=== PATIENT | female | born 1990 | race African-American/Black ===

== ENCOUNTER 2017-09-10 15:39 | Emergency (ER) | payer MEDICAID, SELFPAY ==
[2017-09-10 15:41] VITALS: BP 154/102; PULSE 115; RESP 16; TEMP 36.4; O2SAT 97; BMI 41.6
--- NOTE | 2017-09-10 15:53 | ED.DCSUM_ITS ---
- ER Visit Summary Date of Service: 09/10/17 Chief Complaint: Cough History of Present Illness: The patient is a 27 F presenting with cough ?1 month. She complains of productive cough. She has mild shortness of breath. She has mild chest pain only with coughing. Her sister is ill with similar complaints. She denies DVT/PE risk factors. She has tried NyQuil at home with some relief. She has nausea with no vomiting. Denies fever. Denies other complaints. Physical Examination: Vitals are stable. Patient is afebrile. Alert no acute distress. HEENT exam is unremarkable. TMs are normal bilaterally Neck is supple. Lungs are clear and equal bilaterally. Heart is regular rate and rhythm. Abdomen is soft nontender nondistended. Extremities are unremarkable. Skin is warm and dry. No focal neurologic deficit. Remainder of exam is unremarkable. Emergency Department Course and Treatment: Patient is given Zofran ODT. D- dimer is negative. Chest x-ray shows no acute process. On reevaluation, she is resting comfortably. She is able to tolerate p.o. in the emergency department. Repeat heart rate is 92. She is given a prescription for Tessalon Perles. Advised to follow-up with Dr. New wafer fabrication technician for no doc. Advised return to ED if worsening complaints. Disposition: Discharge home Impression: Bronchitis This note was generated with [employer] dictation software. It may contain incorrect words, spelling, and punctuation that were not noted in review of the chart prior to signing ED Disposition - Plan for ED Patient: Chief Complaint: Cough Instructions: ED Upper Resp Infec No Abx Tx Prescriptions: Benzonatate [Tessalon Perle] 200 mg PO TID PRN PRN #20 capsule PRN Reason: Cough Referrals: Tierra New MD [STAFF PHYSICIAN] - Care Physician,No Primary [Primary Care Provider] -
[2017-09-10] MEDS: Ondansetron ODT 4 MG Tablet 8 MG PO (16:03)
[2017-09-10 16:09] VITALS: TEMP 36.8
--- NOTE | 2017-09-10 16:10 | RAD_ITS ---
STUDY: X-RAY CHEST REASON FOR EXAM: Female, 27 years old. Chronic cough TECHNIQUE: Frontal and lateral views of the chest COMPARISON: None. FINDINGS: The lungs are clear. There are no pleural effusions. There is no pneumothorax. The heart is normal in size. The visualized osseous structures are within normal limits. RAD/Chest PA and Lateral IMPRESSION: No acute thoracic pathology. Electronically Signed: Jono Avelar, at 16:26 EDT Tel , Service support ,
[2017-09-10 16:20] LABS: D-Dimer Quantitative (DVT/PE) < 0.27 FEU/ug/m (0.27-0.49)
--- NOTE | 2017-09-10 16:32 | ED.DEP ---
ED Disposition - Plan for ED Patient: Chief Complaint: Cough Instructions: ED Upper Resp Infec No Abx Tx Prescriptions: Benzonatate [Tessalon Perle] 200 mg PO TID PRN PRN #20 capsule PRN Reason: Cough Referrals: Care Physician,No Primary [Primary Care Provider] - Tierra New MD [STAFF PHYSICIAN] -
[2017-09-10 16:57] VITALS: BP 110/69; PULSE 91; RESP 18; O2SAT 97
== END 2017-09-10 16:58 | disposition home or self-care (01) ==
LOC: ED 16:09
PROVIDERS: Emergency Provider Emergency Medicine
DX: J40 Bronchitis, not specified as acute or chronic (principal)
CPT/HCPCS: 71046; 85379; 99283

== ENCOUNTER 2017-10-27 12:08 | Emergency (ER) | payer MEDICAID, SELFPAY ==
[2017-10-27 12:10] VITALS: BP 141/83; PULSE 104; RESP 16; TEMP 36.7; O2SAT 95; BMI 39.7
--- NOTE | 2017-10-27 12:30 | RAD_ITS ---
STUDY: X-RAY CHEST REASON FOR EXAM: Female, 27 years old. Cough. TECHNIQUE: PA and lateral views of the chest. COMPARISON: Comparison is made with prior study dated September 10, 2017. FINDINGS: Atelectasis and/or early infiltrate in the lingula segment of the left upper lobe as well as mild increased markings at the right lung base. Blunting of left costophrenic angle. Normal size heart. Normal mediastinum and tenisha. Normal visualized pulmonary arteries. Normal visualized aortic arch and descending thoracic aorta. Normal visualized thoracic spine. Normal visualized ribs, clavicles, and shoulders. There is no demonstrated abnormality of the visualized soft tissue structures of the upper abdomen. RAD/Chest PA and Lateral IMPRESSION: Bibasilar atelectasis and/or early infiltrates left greater than right with blunting of the left costophrenic angle. Electronically Signed: Blu Quintero MD at 12:48 EDT Tel [phone], Service support ,
--- NOTE | 2017-10-27 13:48 | ED.DCSUM_ITS ---
- ER Visit Summary Date of Service: 10/27/17 Chief Complaint: Coughing up blood History of Present Illness: The patient is a 27 F who states that she is coughing up blood. Started today. She has had a slight cough which increased this morning. She had some blood-tinged sputum. She has no history of this in the past. She is a smoker. She denies any recent URI symptoms. She has not had a fever. Physical Examination: Vital signs reviewed. HEENT exam unremarkable. Heart is regular rate and rhythm without murmurs. Lungs are clear to auscultation. Abdomen is soft and nontender. Extremities reveal no edema. Skin exam normal. Neurologic exam normal. Test Results: Chest x-ray reveals some atelectasis versus early infiltrates. Emergency Department Course and Treatment: Patient did have some sputum production and it shows some blood-tinged sputum. X-ray reveals early infiltrates. I will treat her with azithromycin and albuterol. She will follow -up with her PCP Treatment Plan: [] Disposition: Discharge Impression: Community acquired pneumonia This note was generated with [employer] dictation software. It may contain incorrect words, spelling, and punctuation that were not noted in review of the chart prior to signing ED Disposition - Plan for ED Patient: Chief Complaint: General Illness Referrals: Care Physician,No Primary [Primary Care Provider] -
--- NOTE | 2017-10-27 13:48 | ED.DEP ---
ED Disposition - Plan for ED Patient: Disposition: Home or Assisted Living Chief Complaint: General Illness Instructions: ED Pneumonia Adult Prescriptions: Albuterol Inhaler [Ventolin Hfa] 1 - 2 puff INHALATION Q4H PRN PRN #1 inhaler PRN Reason: Wheezing Azithromycin [Zithromax Z-Geovanni] 250 mg PO UD #1 box Referrals: Care Physician,No Primary [Primary Care Provider] -
[2017-10-27 13:57] VITALS: PULSE 95; RESP 16; O2SAT 97
== END 2017-10-27 13:57 | disposition home or self-care (01) ==
PROVIDERS: Emergency Provider Emergency Medicine
DX: J18.9 Pneumonia, unspecified organism (principal); F17.200 Nicotine dependence, unspecified, uncomplicated
CPT/HCPCS: 71046; 99282

== ENCOUNTER 2017-11-06 14:00 | Outpatient (RCR) | payer MEDICAID, SELFPAY | END 2017-11-20 23:59 | LOC: NS 14:00 | PROVIDERS: Visit Provider Specialist | DX: Z68.41 Body mass index [BMI] 40.0-44.9, adult (principal); Z71.3 Dietary counseling and surveillance | CPT/HCPCS: 97802 ==

== ENCOUNTER 2017-11-27 12:24 | Day surgery (SDC) | payer MEDICAID, SELFPAY ==
[2017-11-27] VITALS (7 sets, daily range): BP systolic 116–141; BP diastolic 68–87; PULSE 71–98; RESP 16–18; TEMP 36.5–37.1; O2SAT 92–100; BMI 38.7
--- NOTE | 2017-11-27 13:20 | SUR.PREOP ---
Preop assessment and AC check list completed by Ayanna NICK. Unable to log into any computer under Ayanna. Ayanna NICK is charting under Alyson Chamorro sign in on the computer.
[2017-11-27 13:37] LABS: Pregnancy, Serum, hCG Quali. NEGATIVE Negative (0-9 Nonpreg)
--- NOTE | 2017-11-27 17:14 | PCM.IMDPSTOP ---
Immediate Post-Op Note Date of Procedure: 11/27/17 Primary Surgeon/Physician: Luan Casillas front tender: none Pre-Operative Diagnosis: Internal derangemen left knee Post-Operative Diagnosis: 1. Large bucket handle tear with maceration leteral meniscus. 2. 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
--- NOTE | 2017-11-27 17:22 | OP.PN_ITS ---
Immediate Post-Op Note Date of Procedure: 11/27/17 Primary Surgeon/Physician: Luan Casillas tire center supervisor: none Pre-Operative Diagnosis: Internal derangemen left knee Post-Operative Diagnosis: 1. Large bucket handle tear with maceration leteral meniscus. 2. 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
--- NOTE | 2017-11-27 17:24 | OP.PN_ITS ---
Immediate Post-Op Note Date of Procedure: 11/27/17 Primary Surgeon/Physician: Luan Casillas feeder switchboard operator: none Pre-Operative Diagnosis: Internal derangemen left knee Post-Operative Diagnosis: 1. Large bucket handle tear with maceration leteral meniscus. 2. Grade 3 chondromalacia Lateral femoral condyle. 3. Grade 2 chondromalacia PFJ Surgery/Procedure Performed:: Arthroscopic partial lateral meniscectomy with chondroplasty LFC and PFJ left knee Description of Surgical Findings:: see note Estimated Blood Loss: minimal Specimen's removed: none Type of Anesthesia:: General ASA Class: ASA1 Normal Healthy Patient
[2017-11-27] MEDS: HYDROcodone Bitartrate/Apap 5/325 Tablet PO (17:38)
== END 2017-11-27 18:10 | disposition home or self-care (01) ==
LOC: SDC 12:25 → AC 12:26
PROVIDERS: Visit Provider Orthopaedic Surgery
PROC: (CPT 29870; principal; 2017-11-27 14:30)
DX: S83.252A Bucket-handle tear of lateral meniscus, current injury, left knee, initial encounter (principal); X58.XXXA Exposure to other specified factors, initial encounter; Y93.67 Activity, basketball; Y92.9 Unspecified place or not applicable; M17.12 Unilateral primary osteoarthritis, left knee; M94.262 Chondromalacia, left knee; J45.909 Unspecified asthma, uncomplicated; E66.8 Other obesity; Z68.41 Body mass index [BMI] 40.0-44.9, adult; Z87.891 Personal history of nicotine dependence
CPT/HCPCS: 29881; 84703; J7120

== ENCOUNTER 2018-01-15 13:12 | Emergency (ER) | payer MEDICAID, SELFPAY ==
[2018-01-15 13:13] VITALS: BP 147/86; PULSE 109; RESP 16; TEMP 36.6; O2SAT 96; BMI 40.6
--- NOTE | 2018-01-15 13:44 | RAD_ITS ---
STUDY: X-RAY CHEST REASON FOR EXAM: Female, 27 years old. Cough and bilateral chest pain. TECHNIQUE: PA and lateral views of the chest. COMPARISON: Comparison is made with prior study dated October 27, 2017. FINDINGS: Stable appearance of the bibasilar atelectasis and/or infiltrates at the lung bases worse on the left side. Blunting of both costophrenic angles worse on the left side. Normal size heart. Normal mediastinum and tenisha. Normal visualized pulmonary arteries. Normal visualized aortic arch and descending thoracic aorta. Normal visualized thoracic spine. Normal visualized ribs, clavicles, and shoulders. There is no demonstrated abnormality of the visualized soft tissue structures of the upper abdomen. RAD/Chest PA and Lateral IMPRESSION: Bibasilar atelectasis and/or infiltrates in the lung bases slightly worse on the left side with blunting of both costophrenic angles. Electronically Signed: Blu Quintero MD at 14:12 EDT Tel [phone], Service support ,
--- NOTE | 2018-01-15 15:05 | ED.VISSUMM ---
- ER Visit Summary Date of Service: 01/15/18 Chief Complaint: Cough History of Present Illness: The patient is a 27 F no senior past medical history. Has had prior scopes to her left knee and one prior . Patient states for 2 years she has had a chronic cough. States it never clears up. Denies any history of DVT or PE. She had a prior d-dimer in September of this year which was negative. She is being treated by her primary care physician Dr. Condon her currently has her on a course of clarithromycin for 2 weeks. She has a cough of green phlegm. She denies any significant hemoptysis. She denies any significant chest pain except with coughing. She denies any leg pain or swelling. Physical Examination: Young female no acute distress. Pulse is 96% on room air no signs of hypoxia. HEENT exam unremarkable other nasal congestion. Posterior pharynx normal. Neck nontender no JVD. Lungs coarse breath sounds with few scattered expiratory wheezes. No rales. No rhonchi. Heart regular rhythm rate about 95 no murmur. Chest wall nontender. Abdomen soft nontender. She is moving all 4 extremities. Neurovascularly intact. Calves are nontender without edema or cords. Neurologically she is awake alert with no focal motor deficits. Back exam nontender. Test Results: Chest x-ray showed no acute abnormality. She has some bibasilar atelectasis. No obvious infiltrate. No obvious effusion. Normal cardiac silhouette. Read both by myself and the radiologist. Emergency Department Course and Treatment: Patient is currently on an antibiotic. She and I discussed prior treatments. She said steroids never gave her any benefit nor did an inhaler. She will be discharged home. Continue on her antibiotic therapy. Follow-up with her primary care physician and she may need referral to a event host. Treatment Plan: PCP follow-up. Disposition: Discharge Impression: Acute bronchitis This note was generated with [employer] dictation software. It may contain incorrect words, spelling, and punctuation that were not noted in review of the chart prior to signing ED Disposition - Plan for ED Patient: Chief Complaint: Cough Referrals: Isra Quan MD [Primary Care Provider] -
--- NOTE | 2018-01-15 15:09 | ED.DCSUM_ITS ---
- ER Visit Summary Date of Service: 01/15/18 Chief Complaint: Cough History of Present Illness: The patient is a 27 F no senior past medical history. Has had prior scopes to her left knee and one prior . Patient states for 2 years she has had a chronic cough. States it never clears up. Denies any history of DVT or PE. She had a prior d-dimer in September of this year which was negative. She is being treated by her primary care physician Dr. Conodn her currently has her on a course of clarithromycin for 2 weeks. She has a cough of green phlegm. She denies any significant hemoptysis. She denies any significant chest pain except with coughing. She denies any leg pain or swelling. Physical Examination: Young female no acute distress. Pulse is 96% on room air no signs of hypoxia. HEENT exam unremarkable other nasal congestion. Posterior pharynx normal. Neck nontender no JVD. Lungs coarse breath sounds with few scattered expiratory wheezes. No rales. No rhonchi. Heart regular rhythm rate about 95 no murmur. Chest wall nontender. Abdomen soft nontender. She is moving all 4 extremities. Neurovascularly intact. Calves are nontender without edema or cords. Neurologically she is awake alert with no focal motor deficits. Back exam nontender. Test Results: Chest x-ray showed no acute abnormality. She has some bibasilar atelectasis. No obvious infiltrate. No obvious effusion. Normal cardiac silhouette. Read both by myself and the radiologist. Emergency Department Course and Treatment: Patient is currently on an antibiotic. She and I discussed prior treatments. She said steroids never gave her any benefit nor did an inhaler. She will be discharged home. Continue on her antibiotic therapy. Follow-up with her primary care physician and she may need referral to a trencher driver. Treatment Plan: PCP follow-up. Disposition: Discharge Impression: Acute bronchitis This note was generated with [employer] dictation software. It may contain incorrect words, spelling, and punctuation that were not noted in review of the chart prior to signing ED Disposition - Plan for ED Patient: Chief Complaint: Cough Referrals: Isra Quan MD [Primary Care Provider] -
--- NOTE | 2018-01-15 15:09 | ED.DEP ---
ED Disposition - Plan for ED Patient: Disposition: Home or Assisted Living Chief Complaint: Cough Instructions: ED Bronchitis Asthmatic Referrals: Isra Quan MD [Primary Care Provider] - 1 Week if not improving Eros Hu MD [STAFF PHYSICIAN] - As soon as possible Additional Instructions: Continue your current antibiotic. Follow-up your primary care physician. If not improving I strongly encourage you to follow-up with a marketing underwriter.
[2018-01-15 15:12] VITALS: RESP 18; O2SAT 98
[2018-01-15 15:13] VITALS: RESP 18
--- NOTE | 2018-01-16 16:36 | CM.ED ---
ED CALLBACK: Follow-up call placed to patient without answer. Voicemail left with return contact information and offered assistance with any needs.
== END 2018-01-15 15:14 | disposition home or self-care (01) ==
PROVIDERS: Emergency Provider Emergency Medicine; Family Provider Family Medicine; PCP Family Medicine
DX: J20.9 Acute bronchitis, unspecified (principal)
CPT/HCPCS: 71046; 99282

== ENCOUNTER 2018-01-16 08:24 | Emergency (ER) | payer MEDICAID, SELFPAY ==
[2018-01-16 08:25] VITALS: BP 142/103; PULSE 109; RESP 20; TEMP 36.4; O2SAT 91; BMI 40.4
--- NOTE | 2018-01-16 08:28 | ED.DCSUM_ITS ---
- ER Visit Summary Date of Service: 01/16/18 Chief Complaint: Rib pain History of Present Illness: The patient is a 27 F who presents with dyspnea, dyspnea on exertion and left-sided lower anterior pleuritic chest pain. Patient was seen yesterday. Note was read. X-ray revealed atelectasis. She reports chronic cough for 2 years. She has no risk factors for PE or DVT. She denies rhinorrhea, postnasal drainage, earache, muffled hearing or ringing in her ears. She denies sore throat. She denies abdominal pain, nausea, vomiting or diarrhea. She denies leg pain, swelling or discoloration. She denies any food intolerance. There is no history of cholelithiasis or pancreatitis. Physical Examination: Patient vitals are noted and remarkable blood pressure 142 /103, heart rate of 109 respiratory rate of 20 per triage however on my exam for 1 minute her respiratory is 28. Pulse ox is 91% which is low for 27-year- old. She is not febrile. BMI is 40.4. She states she is on no hormonal therapy. Head is atraumatic normocephalic. Pupils are equal round reactive. Extraocular muscles are intact. TMs are pearly white with landmarks noted. Nares patent with no drainage. Posterior pharynx without erythema or exudate. Uvula is midline. There is no dysphonia or dysphasia. Trachea is midline. There is no stridor with auscultation of the neck. Heart is rapid and regular without murmur, gallop or rub. S1 and S2 are normal. Lungs are clear to auscultation with good movement of air bilaterally. Abdomen is soft nontender with no hepatosplenomegaly. No skin lesions are noted. There is no asymmetry, swelling, discoloration, leg vein distention, palpable cords or tenderness along the distribution of the deep venous system. Test Results: CBC is remarkable for microcytic cells. D-dimer is less than 0.27. Basic metabolic panel is normal. Chest x-ray reveals bilateral atelectasis. Cardiac echo was unremarkable Emergency Department Course and Treatment: Patient is not PERC negative. Therefore, a d-dimer was ordered. Chest x-ray was obtained since vital signs are different than yesterday and if there is an explanation on the chest x-ray would not need to proceed to CTA. Since patient has dyspnea on exertion and a normal d-dimer concerned she may have a viral cardiomyopathy. Echocardiogram was ordered. Echocardiogram reveals normal size and thickness left ventricle with an ejection fraction 60% there is trivial tricuspid regurgitation. Treatment Plan: Follow-up with primary care physician Disposition: Discharged home Impression: 1. Pleuritic chest pain 2. Sinus tachycardia documented on monitor and EKG 3. Dyspnea and dyspnea on exertion unknown cause This note was generated with [employer] dictation software. It may contain incorrect words, spelling, and punctuation that were not noted in review of the chart prior to signing ED Disposition - Plan for ED Patient: Disposition: Home or Assisted Living Chief Complaint: Chest Other Instructions: ED Chest Pain Pleurisy, ED Dyspnea Shortness of Breath Referrals: Isra Quan MD [Primary Care Provider] - 3-5 Days
--- NOTE | 2018-01-16 08:41 | EKG12_ITS ---
Test Reason : Blood Pressure : / mmHG Vent. Rate : 116 BPM Atrial Rate : 116 BPM P-R Int : 134 ms QRS Dur : 088 ms QT Int : 340 ms P-R-T Axes : 068 041 028 degrees QTc Int : 472 ms Sinus tachycardia Otherwise normal ECG Confirmed by SARAHI FUENTES, TONO ([id number]), legal editor JORDYN NGO ([id number]) on 01/17/2018 1:51:57 PM Referred By: NATHEN Confirmed By:TONO MCCLAIN MD
--- NOTE | 2018-01-16 08:49 | NURSING ---
NO OLD EKGS
[2018-01-16 09:03] LABS: Absolute Lymphocyte Count 1.45 X10^3/ul (0.83-4.51); Absolute Neutrophil Count 5.9 X10^3/uL (2.0-7.7); Basophil# 0.02 X10^3/uL; Basophil% 0.3 % (0-1); Eosinophil# 0.13 X10^3/uL; Eosinophils% 1.6 % (0-5); Hematocrit 38.6 % (37-47); Hemoglobin 12.1 g/dl (12.0-15.0); Lymphocyte # 1.45 X10^3/ul (4.0); Lymphocyte % 18.3 % (19-41); Mean Corp Hgb Conc 31.3 g/gl (32-36); Mean Corpuscular Hgb 22.6 pg (27.0-32.0); Monocyte# 0.41 X10^3/uL; Monocyte% 5.2 % (0-10); Neutrophil # 5.89 X10^3/uL (2.7-7.7); Neutrophil % 74.3 % (47-70); Platelet Count 257 K/mm3 (150-450); RBC Distribution Width CV 15.9 % (11.6-14.6); RBC Distribution Width SD 40.9 fl (35.1-43.9); Red Blood Count 5.36 M/mm3 (4.2-5.4); White Blood Count 7.9 K/mm3 (4.4-11.0)
[2018-01-16 09:05] LABS: POSITIVE COUNT NO; POSITIVE DIFFERENTIAL NO; POSITIVE MORPHOLOGY NO
--- NOTE | 2018-01-16 09:09 | RAD_ITS ---
STUDY: X-RAY CHEST REASON FOR EXAM: Female, 27 years old. Tachycardia. Pleuritic chest pain. TECHNIQUE: PA and lateral views of the chest. COMPARISON: Comparison is made with prior study dated January 15, 2018. FINDINGS: EKG electrodes are seen. There is evidence of a bibasilar infiltrates worse on the left side. These have progressed as compared to prior study. There is blunting of the left costophrenic angle. Normal size heart. Normal mediastinum and tenisha. Normal visualized pulmonary arteries. Normal visualized aortic arch and descending thoracic aorta. Normal visualized thoracic spine. Normal visualized ribs, clavicles, and shoulders. There is no demonstrated abnormality of the visualized soft tissue structures of the upper abdomen. RAD/Chest PA and Lateral IMPRESSION: Bibasilar infiltrates worse on the left side with blunting of the left costophrenic angle. Electronically Signed: Blu Quintero MD at 9:53 EDT Tel [phone], Service support ,
[2018-01-16 09:20] LABS: Anion Gap 7 (5-15); BUN 14 mg/dL (7-18); BUN/Creat Ratio 19.8 RATIO (10-20); Calcium,Total 8.6 mg/dL (8.5-10.1); Chloride 105 mmol/L (98-107); Creatinine, Serum 0.71 mg/dL (0.55-1.02); EST Glomerular Filtration Rate 107 mL/min (>60); Est Glom Filt Rate - Afr Amer 129 mL/min (>60); Estimated Creatinine Clearance 139.78 ml/min; Glucose 89 mg/dL (74-106); Potassium 4.3 mmol/L (3.5-5.1); Sodium Level 140 mmol/L (136-145)
[2018-01-16 09:21] LABS: D-Dimer Quantitative (DVT/PE) < 0.27 FEU/ug/m (0.27-0.49)
--- NOTE | 2018-01-16 09:29 | ECHOD_ITS ---
Reason For Study: DYSPNEA Procedure This was a 2D Doppler, Color Flow transthoracic echocardiogram. Exam performed portable in ED. Left Ventricle Normal size and thickness. The estimated ejection fraction is 60 %. Normal diastology for age. No regional wall motion abnormalities noted. Right Ventricle Normal size and thickness. Normal systolic function. Atria Normal left atrium. Normal right atrium. Normal atrial septum. Mitral Valve The mitral valve is structurally normal. No prolapse or stenosis seen. Tricuspid Valve Normal tricuspid valve. Trivial tricuspid valve insufficiency. Unable to estimate RV systolic pressure/pulmonary artery pressure due to technically difficult study. Aortic Valve Normal aortic valve. Trisinus/trileaflet aortic valve. Pulmonic Valve Normal pulmonic valve. Trivial pulmonic valve insufficiency. Great Vessels Normal aortic root. Normal arch. Normal inferior vena cava. Inferior vena cava collapse with sniff. Pericardium/Pleural No pericardial effusion. MMode/2D Measurements & Calculations LVIDd: 4.2 cm IVSd: 1.1 cm LAV(MOD-bp): 39.4 ml LVIDs: 2.5 cm LVPWd: 1.00 cm LAV(MOD-bp) Indexed: 15.6 ml/m2 RVDd: 3.2 cm FS: 39.7 % LAV(MOD-sp2): 42.3 ml LAV(MOD-sp4): 36.1 ml LVAd ap4: 37.8 cm2 SV(MOD-sp4): 55.2 ml SV(sp4-el): 59.8 ml EDV(MOD-sp4): 124.4 ml EDV(sp4-el): 127.6 ml LVAs ap4: 24.4 cm2 ESV(MOD-sp4): 69.3 ml ESV(sp4-el): 67.8 ml EF(MOD-sp4): 44.3 % EF(sp4-el): 46.9 % LA A4 area: 14.9 cm2 RA A4 area: 11.9 cm2 Time Measurements MV dec time: 0.23 sec Doppler Measurements & Calculations MV E max branden: 64.2 cm/sec Lat Peak E' Branden: 18.0 cm/sec Med Peak E' Branden: 12.6 cm/sec MV A max branden: 57.8 cm/sec E/E' lat: 3.6 E/E' med: 5.1 MV E/A: 1.1 Ao V2 max: 121.2 cm/sec LV V1 max: 104.1 cm/sec PA V2 max: 91.3 cm/sec Ao max P.9 mmHg LV V1 max P.3 mmHg PI end-d branden: 165.8 cm/sec Interpretation Summary The estimated ejection fraction is 60 %. Normal diastology for age. Trivial tricuspid valve insufficiency. Unable to estimate RV systolic pressure/pulmonary artery pressure due to technically difficult study. There is no comparison study available. The study was technically difficult. Ordering Physician: Randy Bailey Referring Physician: JIM BEAN Performed By: Natalee Dan, DARIANA, RVT
[2018-01-16 11:25] VITALS: BP 136/91; PULSE 90; RESP 16; O2SAT 94
[2018-01-16 12:47] VITALS: O2SAT 95
[2018-01-16 13:13] VITALS: BP 116/88; PULSE 91; RESP 20; O2SAT 95
== END 2018-01-16 13:14 | disposition home or self-care (01) ==
PROVIDERS: Emergency Provider Emergency Medicine; Family Provider Family Medicine; PCP Family Medicine
DX: R07.89 Other chest pain (principal); R00.0 Tachycardia, unspecified; R06.09 Other forms of dyspnea; E66.9 Obesity, unspecified; Z68.41 Body mass index [BMI] 40.0-44.9, adult
CPT/HCPCS: 71046; 80048; 85025; 85379; 93005; 93306; 99284; A4216

== ENCOUNTER → 2018-01-30 09:14 | Outpatient (CLI) | payer MEDICAID, SELFPAY ==
--- NOTE | 2018-01-30 09:20 | RAD_ITS ---
STUDY: AIR-CONTRAST UPPER GI SERIES. REASON FOR EXAM: Female, 27 years old. 3 year history of cough. FLUOROSCOPY TIME (if supplied): (0:57) minutes/seconds. 22 images were obtained. TECHNIQUE: The patient ingested barium. Multiple images of the esophagus, stomach and duodenum were obtained. COMPARISON: None. FINDINGS: The esophagus unremarkable. There is no evidence obstruction. No mass lesion is seen. There is no evidence of gastric esophageal reflux. The stomach is unremarkable. There is no evidence of ulceration. No mass lesion is seen. There is evidence of an 8mm by 2.5 mm diverticulum in the fourth portion of the duodenum. RAD/Upper GI Series Only IMPRESSION: Small diverticulum in the third portion of the duodenum. Electronically Signed: Blu Quintero MD at 14:29 EDT Tel [phone], Service support ,
== END ==
PROVIDERS: Family Provider Family Medicine; PCP Family Medicine; Visit Provider Family Medicine
DX: R10.13 Epigastric pain (principal)
CPT/HCPCS: 74246

== ENCOUNTER 2018-03-13 16:45 | Emergency (ER) | payer MEDICAID, SELFPAY ==
[2018-03-13 16:46] VITALS: BP 127/75; PULSE 114; RESP 18; TEMP 36.3; O2SAT 99; BMI 40.4
--- NOTE | 2018-03-13 17:52 | RAD_ITS ---
STUDY: X-RAY CHEST REASON FOR EXAM: Female, 27 years old. Coughing congestion for several months. History of bronchitis and pneumonia. TECHNIQUE: PA and lateral views of the chest. COMPARISON: January 16, 2018. FINDINGS: The lungs are well expanded. There is slight elevation left hemidiaphragm with left basilar atelectasis versus infiltrate. This appears unchanged. There is minimal atelectasis versus infiltrate at the right lung base. There is no demonstrated pleural abnormality. Normal size heart. Normal mediastinum and tenisha. Normal visualized pulmonary arteries. Normal visualized aortic arch and descending thoracic aorta. Normal visualized thoracic spine. Normal visualized ribs, clavicles, and shoulders. There is no demonstrated abnormality of the visualized soft tissue structures of the upper abdomen. RAD/Chest PA and Lateral IMPRESSION: No interval change. Electronically Signed: Hans Mcdermott DO at 18:25 EST Tel [phone], Service support ,
[2018-03-13] MEDS: Ipratropium/Albuterol Sulfate 3 ML AMPUL.NEB INHALATION (18:51)
[2018-03-13] MEDS: Albuterol 2.5 MG/3 ML VIAL.NEB. INHALATION ×2 (18:52→20:30)
[2018-03-13 18:55] VITALS: PULSE 76; RESP 18
[2018-03-13 18:58] VITALS: BP 126/75; PULSE 87; RESP 18; O2SAT 98
[2018-03-13 20:30] VITALS: PULSE 86; RESP 18
--- NOTE | 2018-03-13 20:47 | ED.VISSUMM ---
- ER Visit Summary Date of Service: 03/13/18 Chief Complaint: Cough, congestion and wheezing History of Present Illness: The patient is a 27 F who has history of asthma and is a non-smoker presents with URI symptoms for the past several weeks. She denies fever, chills or night sweats. Denies weight gain or weight loss. She denies ocular, visual or auditory symptoms. She denies GI or symptoms. Denies myalgias arthralgias or back pain. She denies headache, weakness or paresthesia. She denies angioedema or rash. Please read written note for complete detail. Physical Examination: Vital signs noted and unremarkable. HEENT exam is marked for nasal congestion. Lungs reveal wheezing throughout with increased x-ray phase. There is rales at both bases. Heart is regular without murmur, gallop or rub. Abdomen soft nontender. Insert lower extremity DVT. Please read note for complete detail Test Results: Two-view chest x-ray was negative. Emergency Department Course and Treatment: Patient was treated with DuoNeb and albuterol. She received 60 mg of prednisone in the department. When she was reassessed she was wheeze free. Treatment Plan: Prescription for 5-day burst of prednisone and follow-up with physician Disposition: Discharged home in stable improved condition Impression: 1. Exacerbation of asthma 2. Bronchitis This note was generated with [employer] dictation software. It may contain incorrect words, spelling, and punctuation that were not noted in review of the chart prior to signing ED Disposition - Plan for ED Patient: Disposition: Home or Assisted Living Chief Complaint: Shortness of Breath Instructions: ED Bronchitis Asthmatic Prescriptions: Prednisone [Deltasone] 40 mg PO DAILY #10 tab Referrals: Isra Quan MD [Primary Care Provider] - 1 Week if not improving
[2018-03-13] MEDS: predniSONE 20 MG Tablet 60 MG PO (21:18)
[2018-03-13 21:33] VITALS: BP 124/74; PULSE 91; RESP 18; O2SAT 98
== END 2018-03-13 21:34 | disposition home or self-care (01) ==
PROVIDERS: Emergency Provider Emergency Medicine; Family Provider Family Medicine; PCP Family Medicine
DX: J45.901 Unspecified asthma with (acute) exacerbation (principal); E66.9 Obesity, unspecified; Z68.41 Body mass index [BMI] 40.0-44.9, adult
CPT/HCPCS: 71046; 94640; 99283

== ENCOUNTER 2023-08-30 15:51 | Emergency (ER) | payer MEDICAID, MEDICARE, SELFPAY ==
[2023-08-30 15:52] VITALS: BP 152/96; PULSE 63; RESP 15; TEMP 36.7; O2SAT 93; BMI 52.9
[2023-08-30] MEDS: Fluorescein 1 MG STRIP 1 STRIP RIGHT EYE (16:48)
[2023-08-30] MEDS: Tetracaine 0.5% Ophthalmic Bottle 1 DRP LEFT EYE (16:48)
[2023-08-30] MEDS: Fluorescein 1 MG STRIP 1 STRIP LEFT EYE (16:48)
[2023-08-30] MEDS: Erythromycin Base 1 OPTH.TUBE 1 APPLIC EACH EYE (17:40)
--- NOTE | 2023-08-30 17:48 | EX.ED.VIS.EY ---
HPI History of Present Illness Chief Complaint: Eye Problem Narrative Narrative: 33-year-old female presenting with bilateral eye irritation. She states she was treated with bacitracin drops for the bilateral eyes and treated as conjunctivitis. She states not getting better. She denies trauma to the eyes. She is rubbing her eyes. She is also holding toilet paper to her close eyelids to absorb moisture. She does have some slight crusting on eyelids when she wakes up in the morning. Denies fevers or chills. PFSH PFSH Medical History Asthma Home Medications albuterol sulfate 90 mcg/actuation aerosol inhaler 1 - 2 puff inhalation Q4H PRN PRN Wheezing ##1 10/27/17 [Rx Last Taken Unknown] fluticasone propionate 50 mcg/actuation nasal spray,suspension 1 spray BID 01/16/18 [History Last Taken 01/15/18] montelukast 10 mg tablet 10 mg PO DAILY 03/13/18 [History Last Taken Unknown] prednisone 20 mg tablet 40 mg (2 x 20 mg) PO DAILY #10 tabs 03/13/18 [Rx Last Taken Unknown] erythromycin 5 mg/gram (0.5 %) eye ointment 0.5 inch EACH EYE Q6H #7 grams 08/30/23 [Rx Last Taken Unknown] Allergy/AdvReac Type Severity Reaction Status Date / Time No Known Allergies Allergy Verified 03/13/18 16:47 Social History Smoking Status: Former smoker ROS ROS ED Constitutional Constitutional ED: Denies chills, fever(s) or sweats Eyes Eyes: Denies blurry vision or change in vision ENT ENT ED: Denies ear pain or sore throat Cardiovascular Cardiovascular: Denies chest pain, palpitations or racing heartbeat Respiratory/Chest Respiratory/Chest: Denies cough, dyspnea or sputum Gastrointestinal Gastrointestinal: Denies abdominal pain, constipation, diarrhea, nausea or vomiting Genitourinary Genitourinary ED: Denies dysuria, hematuria or urinary frequency Musculoskeletal Musculoskeletal: Denies arthralgias, myalgias or neck pain Integumentary Denies abscess, Abrasions or rash Neurologic Neurologic: Denies headache(s), paresthesias or weakness Psychiatric Psychiatric: Denies anxiety, depression, suicidal ideation or suicidal thoughts Endocrine Endocrinology: Denies polydipsia or polyuria EXAM Physical Exam Const Vital Signs: 08/30/23 15:52 Temperature 98.0 F Temperature Source Temporal Pulse Rate 63 Respiratory Rate 15 Blood Pressure 152/96 H Blood Pressure Mean 114 Pulse Ox 93 Oxygen Delivery Method Nasal Cannula Positive well nourished General Appearance ED: NAD HEENT atraumatic Eyes PERRL and EOMs intact bilaterally Visual Acuity: acuity normal Visual Field: No peripheral vision loss and No central vision loss Alignment: alignment normal Periorbital: periorbital findings normal Eyelid: eyelids normal Cornea: cornea abnormal and fluorescein used Pupil: other Other Details: OS corneal abrasion noted at the 5:00 position. OD corneal abrasion noted that the 4 position o'clock position Slit Lamp: slit lamp exam performed with fluorescein, lids/lashes/lacrimal system normal appearing and anterior chamber normal appearing Resp normal respiratory effort Cardio regular rate and regular rhythm Neuro oriented x3 and CN's II-XII intact bilaterally Sensorium / Orientation: alert Motor Exam: strength 5/5 throughout MDM MDM MDM Narrative Medical decision making narrative: Patient presenting with bilateral eye irritation. I suspect she had conjunctivitis and then has further possible abrasions to her eyes by rubbing her eyes. She is not a contact wearer. I counseled on findings. Will start her on erythromycin ophthalmic here. She was given follow-up with ophthalmology. Return precautions were discussed. Impression: 1. Bilateral corneal abrasions 2. History of conjunctival Discharge Plan Triage Chief Complaint: Eye Problem ED Provider: Yayo Andrew Dx/Rx/DC Orders Instructions: ED Corneal Abrasion Prescriptions: New erythromycin 5 mg/gram (0.5 %) ointment 0.5 inch EACH EYE Q6H Qty: 7 0RF No Action albuterol sulfate 1 INHALER inhaler 1 - 2 puff INHALATION Q4H PRN PRN (Reason: Wheezing) Qty: 1 0RF fluticasone propionate 1 SPRAY spray,suspension 1 spray NASAL BID montelukast 10 MG tablet 10 mg PO DAILY prednisone 20 MG tablet 40 mg PO DAILY Qty: 10 0RF Rx Instructions: With food Primary Care Provider: Joanne Connors Referrals: Isra Jack MD [Med Staff - Active Staff] - 3-5 Days Joanne Connors PROCESSOR HELPER-C [Primary Care Provider] - Disposition Disposition: Home, Self Care Discharge Date/Time: 08/30/23 17:45
== END 2023-08-30 17:45 | disposition home or self-care (01) ==
PROVIDERS: Emergency Provider Student in an Organized Health Care Education/Training Program; PCP Nurse Practitioner Family; Visit Provider Student in an Organized Health Care Education/Training Program
DX: S05.01XA Injury of conjunctiva and corneal abrasion without foreign body, right eye, initial encounter (principal); S05.02XA Injury of conjunctiva and corneal abrasion without foreign body, left eye, initial encounter; J45.909 Unspecified asthma, uncomplicated; Z87.891 Personal history of nicotine dependence; X58.XXXA Exposure to other specified factors, initial encounter
CPT/HCPCS: 99282

== ENCOUNTER 2024-02-08 08:02 | Emergency (ER) | payer MEDICARE, MEDICAID, SELFPAY ==
[2024-02-08 08:03] VITALS: BP 135/90; PULSE 93; RESP 18; TEMP 36.8; O2SAT 95; BMI 56.2
--- NOTE | 2024-02-08 08:22 | EX.ED.DYSGE1 ---
HPI History of Present Illness Chief Complaint: Edema Informant: patient Onset/Context/Timing Onset: Days Context: Gradual Onset Timing: Continuous Quality: Sharp Location: Bilateral lower legs Worsened by: Nothing Relieved by: Nothing Narrative Narrative: Patient presents with swelling to both legs that has gotten progressively worse. Patient states she was recently prescribed Lasix which has not been helping. Patient admits to some mild redness and warmth to her right lower leg. Patient states she has had some burning in her right posterior thigh with this. Patient states she has sharp pain in her lower legs bilaterally. Patient states nothing makes it better and nothing makes it worse. Patient denies any fevers or chills. [facility] Medical History (Updated 02/08/24 @ 12:[address] Neo Phelps DO) Environmental allergies Anemia Depression Asthma Home Medications ?Medication ?Instructions ?Recorded ?Last Taken ?Type albuterol sulfate 90 mcg/actuation 1 - 2 puff inhalation Q4H PRN PRN 10/27/17 Unknown Rx aerosol inhaler Wheezing ##1 montelukast 10 mg tablet 10 mg PO DAILY 03/13/18 Unknown History prednisone 20 mg tablet 40 mg (2 x 20 mg) PO DAILY #10 tabs 03/13/18 Unknown Rx cephalexin 500 mg capsule 500 mg PO Q6 #40 CAPSULES 02/08/24 Unknown Rx furosemide 20 mg tablet 20 mg PO DAILY 02/08/24 Unknown History Allergy/AdvReac Type Severity Reaction Status Date / Time No Known Allergies Allergy Verified 02/08/24 08:06 Surgical History (Updated 02/08/24 @ 09:[address] Neo Phelps DO) Hx of knee surgery Hx of section Social History Smoking Status: Former smoker ROS ROS ED Constitutional Constitutional ED: Denies chills or fever(s) Eyes Eyes: Denies blurry vision or change in vision ENT ENT ED: Denies rhinorrhea or sore throat Cardiovascular Cardiovascular: Denies chest pain or palpitations Respiratory/Chest Respiratory/Chest: Reports cough and dyspnea Gastrointestinal Gastrointestinal: Denies nausea or vomiting Genitourinary Genitourinary ED: Denies dysuria or hematuria Musculoskeletal Musculoskeletal: Denies back pain or neck pain Integumentary Denies abscess or rash Neurologic Neurologic: Denies headache(s) or weakness Allergic/Immunologic Allergic/Immunologic ED: Denies mouth swelling or urticaria EXAM Physical Exam Const Vital Signs: 02/08/24 08:03 02/08/24 08:12 02/08/24 12:11 Temperature 98.3 F Temperature Source Oral Pulse Rate 93 87 Respiratory Rate 18 18 Respiratory Pattern Normal Blood Pressure 135/90 H 126/69 H Blood Pressure Mean 105 88 Pulse Ox 95 100 Oxygen Delivery Method Room Air Room Air Positive well nourished and well developed General Appearance ED: well developed and NAD HEENT Reports moist mucous membranes Neck supple and no JVD Resp normal respiratory effort and clear to auscultation bilaterally Cardio regular rate and regular rhythm GI non-tender and non-distended Palpation: soft Extremity Extremity Narrative: There is mild tenderness of the calves bilaterally, there is erythema and warmth over the anterior aspect of the right lower leg. There is 2+ edema of the right lower extremity 1+ edema of the left lower extremity. There is no pain with gentle flexion of the ankles. General Extremety ED: Yes tenderness Neuro oriented x3, CN's II-XII intact bilaterally and no sensory deficits noted Sensorium / Orientation: alert Motor Exam: strength 5/5 throughout Psych mental status grossly normal MDM MDM MDM Narrative Medical decision making narrative: Differential diagnosis includes cellulitis, DVT, muscle strain, acute kidney injury, and electrolyte abnormality. CBC will be obtained to assess for leukocytosis and anemia. Basic metabolic profile will be obtained to assess for electrolyte abnormality and renal function. Urinalysis will be obtained to assess for urinary tract infection and hematuria. Venous duplex of the bilateral lower extremities will be obtained to assess for DVT. Lab Data Attestation: I reviewed the patient's lab results. Lab results narrative: CBC was reviewed. There is a mild anemia with a hemoglobin of 11.1. The remainder is within normal limits. Basic metabolic profile was reviewed and was within normal limits. Urinalysis was reviewed. There is leukocyte esterase of 500 with greater than 100 white blood cells. Occult blood was 250 with greater than 100 red blood cells. There is 2+ bacteria. BNP was reviewed and was normal at 9.2. Labs: Laboratory Results - last 24 hr 02/08/24 02/08/24 09:35 11:18 WBC 6.8 RBC 5.54 H Hgb 11.1 L Hct 41.2 MCV 74.4 L MCH 20.0 L MCHC 26.9 L RDW Std Deviation 46.1 H RDW Coeff of Micha 17.3 H Plt Count 286 MPV 9.6 Immature Gran % (Auto) 0.700 Neut % (Auto) 62.9 Lymph % (Auto) 26.2 Sabine % (Auto) 6.2 Eos % (Auto) 3.7 Baso % (Auto) 0.3 Absolute Neuts (auto) 4.3 Absolute Lymphs (auto) 1.79 Nucleated RBC % 0 Sodium 141 Potassium 4.3 Chloride 103 Carbon Dioxide 37.0 H Anion Gap 1 L BUN 9 Creatinine 0.64 Estim Creat Clear Calc 239.58 Est GFR (MDRD) Af Amer 138 Est GFR (MDRD) Non-Af 114 BUN/Creatinine Ratio 14.0 Glucose 96 Calcium 8.7 B-Natriuretic Peptide 9.2 Urine Color Yellow Urine Clarity Sl. Cloudy Urine pH 8.0 Ur Specific [place] 1.010 Urine Protein 30 H Urine Glucose (UA) Normal Urine Ketones Negative Urine Occult Blood 250 H Urine Nitrite Negative Urine Bilirubin Negative Urine Urobilinogen 1 H Ur Leukocyte Esterase 500 H Urine RBC > 100 SEEN Urine WBC >100 SEEN Ur Squamous Epith Cells 5-10 SEEN Urine Bacteria 2+ Urine Mucus 1+ Radiography Diagnostic Testing: Venous duplex of the lower extremities was obtained. There is no evidence of DVT. Additional Tests and Interventions Additional Tests or Interventions: Urine culture was ordered. Treatment and Re-Evaluation :: Patient was given a dose of Keflex here. Patient was given a prescription for Keflex. Patient was instructed to follow-up with her primary care physician in 5 to 7 days. Patient instructed to return if worse in any way. Patient understood and was agreeable with the plan. All questions were answered. Discharge Plan Triage Chief Complaint: Edema ED Provider: Neo Phelps Dx/Rx/DC Orders Clinical Impression: Cellulitis of right anterior lower leg, Urinary tract infection Instructions: ED Cellulitis, ED Cystitis Female Adult Prescriptions: New cephalexin 500 mg capsule 500 mg PO Q6 Qty: 40 0RF No Action albuterol sulfate 1 INHALER inhaler 1 - 2 puff INHALATION Q4H PRN PRN (Reason: Wheezing) Qty: 1 0RF montelukast 10 MG tablet 10 mg PO DAILY prednisone 20 MG tablet 40 mg PO DAILY Qty: 10 0RF Rx Instructions: With food furosemide 20 mg tablet 20 mg PO DAILY Primary Care Provider: Joanne Connors Referrals: Joanne Connors, INTRAOPERATIVE NEURO TECH-C [Primary Care Provider] - 5-7 Days Print Language: Comoran Disposition Disposition: Home, Self Care
--- NOTE | 2024-02-08 09:28 | VDLE_ITS ---
Reason For Study: SWELLING RIGHT LEFT GSV is normal. GSV is normal. CFV is compressible, spontaneous, phasic, CFV is compressible, spontaneous, phasic, competent and demonstrates normal competent, and demonstrates normal augmentation. augmentation. FV is compressible, spontaneous, phasic, FV is compressible, spontaneous, phasic, competent and demonstrates normal competent and demonstrates normal augmentation. augmentation. POP V is compressible, spontaneous, phasic, POP V is compressible, spontaneous, phasic, competent and demonstrates normal competent and demonstrates normal augmentation. augmentation. T/P Trunk is compressible. T/P Trunk is compressible. PTV is compressible. PTV is compressible. RT PerV is compressible. LT PerV is compressible. Procedure This is a venous duplex using B-mode, color flow and spectral Doppler. Exam performed portable in ED. The study was technically difficult. Due to body habitus. Pt had difficulty tolerating compressions; relied on colored doppler. A preliminary report was called and/or faxed to Dr. Phelps @ 10:25 am. VL/Venous Duplex US - John Extrem Interpretation Summary Deep veins of the bilateral lower extremities are patent and compressible segme ntally. There is no evidence of bilateral lower extremity deep vein thrombosis. The bilateral great saphenous veins appear patent and compressible segmentally. Ordering Physician: Neo Phelps Referring Physician: Joanne Connors Performed By: Jazz Gonzalez, RDCS, RVT
[2024-02-08 09:50] LABS: Absolute Lymphocyte Count 1.79 X10^3/uL (0.83-4.51); Absolute Neutrophil Count 4.3 X10^3/uL (2.0-7.7); Basophil# 0.02 X10^3/uL; Basophil% 0.3 % (0-1); Eosinophil# 0.25 X10^3/uL; Eosinophils% 3.7 % (0-5); Hematocrit 41.2 % (37-47); Hemoglobin 11.1 g/dL (12.0-15.0); Lymphocyte # 1.79 X10^3/ul (0.83-4.51); Lymphocyte % 26.2 % (19-41); Mean Corp Hgb Conc 26.9 g/dL (32-36); Mean Corpuscular Volume 74.4 fL (81-99); Mean Platelet Vol. 9.6 fl (6.2-12.0); Monocyte# 0.42 X10^3/uL; Monocyte% 6.2 % (0-10); NRBC Flagged by Analyzer 0 % (0-5); Neutrophil # 4.29 X10^3/uL (2.7-7.7); Neutrophil % 62.9 % (47-70); Platelet Count 286 K/mm3 (150-450); RBC Distribution Width CV 17.3 % (11.6-14.6); RBC Distribution Width SD 46.1 fl (35.1-43.9); Red Blood Count 5.54 M/mm3 (4.2-5.4); White Blood Count 6.8 K/mm3 (4.4-11.0)
[2024-02-08 10:04] LABS: Anion Gap 1 (5-15); BUN 9 mg/dL (7-18); Calcium,Total 8.7 mg/dL (8.5-10.1); Chloride 103 mmol/L (98-107); Creatinine, Serum 0.64 mg/dL (0.55-1.02); EST Glomerular Filtration Rate 114 mL/min (>60); Est Glom Filt Rate - Afr Amer 138 mL/min (>60); Estimated Creatinine Clearance 239.58 ml/min; Glucose 96 mg/dL (74-106); Potassium 4.3 mmol/L (3.5-5.1); Sodium Level 141 mmol/L (136-145)
[2024-02-08 10:19] LABS: BNP,B-Type NATRIURETIC PEPTIDE 9.2 pg/mL (0-100)
[2024-02-08 11:31] LABS: Color, Urine Yellow (Yellow); Glucose, Dipstick Normal (Normal); Ketone-Dipstick Negative (Negative); Leukocyte Esterase-Dipstick 500 /ul (Negative); Nitrite-Dipstick Negative (Negative); Occult Blood-Urine 250 /ul (Negative); Protein-Dipstick 30 mg/dl (Negative); Urine Bilirubin Dipstick Negative (Negative); Urine Clarity Sl. Cloudy (Clear); Urine Urobilinogen 1 mg/dl (Normal)
[2024-02-08 11:37] LABS: White Blood Cells >100 SEEN /hpf (0-5)
[2024-02-08 11:38] LABS: Bacteria 2+ /hpf (None Seen); Mucous, Urine 1+ /hpf (<or=2+); Red Blood Cells-Urine > 100 SEEN /hpf (0-5); Squamous Epithelial Cells - UA 5-10 SEEN /hpf (5-10)
[2024-02-08] MEDS: Cefazolin 1 GM/50 ML BAG IV (11:58)
[2024-02-08 12:11] VITALS: BP 126/69; PULSE 87; RESP 18; O2SAT 100
== END 2024-02-08 12:42 | disposition home or self-care (01) ==
PROVIDERS: Emergency Provider Emergency Medicine; PCP Nurse Practitioner Family; Visit Provider Emergency Medicine
DX: L03.115 Cellulitis of right lower limb (principal); N39.0 Urinary tract infection, site not specified; J45.909 Unspecified asthma, uncomplicated; Z87.891 Personal history of nicotine dependence; Z79.51 Long term (current) use of inhaled steroids; Z79.899 Other long term (current) drug therapy
CPT/HCPCS: 80048; 81001; 83880; 85025; 93970; 96365; 99283; J7050

== ENCOUNTER 2024-05-26 19:45 | Emergency (ER) | payer MEDICARE, MEDICAID, SELFPAY ==
[2024-05-26] VITALS (7 sets, daily range): BP systolic 105–148; BP diastolic 42–92; PULSE 99–111; RESP 14–22; TEMP 36.6–37.7; O2SAT 91–98; BMI 57.2
--- NOTE | 2024-05-26 19:57 | ED.VIS.DYS ---
HPI History of Present Illness Chief Complaint: Shortness of Breath Informant: patient Narrative Narrative: 34-year-old female states she started getting ill 2 days ago with respiratory symptoms with cough, sputum without blood, runny nose and congestion, fevers, chills, some headaches, and malaise. Fevers up to 103. Treating those with Tylenol but she has a history of asthma and she states she has very small airways and given that even when she is not ill she is on 5 L of oxygen at home 28/11. She states she also has a history of recurrent pneumonia, and because of all of this presents for evaluation. She has been using albuterol treatments at home which have been helping some. Denies any known sick contacts but she has been at her [employer] basketball games in public off-and-on recently. [facility] Medical History (Updated 05/26/24 @ 20:[address] Onesimo Willson MD) Environmental allergies Anemia Depression Asthma Home Medications ?Medication ?Instructions ?Recorded ?Last Taken ?Type albuterol sulfate 90 mcg/actuation 1 - 2 puff inhalation Q4H PRN PRN 10/27/17 Unknown Rx aerosol inhaler Wheezing ##1 montelukast 10 mg tablet 10 mg PO DAILY 03/13/18 Unknown History cephalexin 500 mg capsule 500 mg PO Q6 #40 CAPSULES 02/08/24 Unknown Rx furosemide 20 mg tablet 20 mg PO DAILY 02/08/24 Unknown History prednisone 20 mg tablet 40 mg (2 x 20 mg) PO DAILY #10 tabs 05/26/24 Unknown Rx Allergy/AdvReac Type Severity Reaction Status Date / Time No Known Allergies Allergy Verified 05/26/24 19:46 Surgical History Hx of knee surgery Hx of section Social History Smoking Status: Former smoker ROS ROS ED Constitutional Constitutional ED: Reports chills, fever(s) and malaise ENT ENT ED: Reports nasal congestion and rhinorrhea; Denies ear pain or sore throat Cardiovascular Cardiovascular: Denies chest pain or palpitations Respiratory/Chest Respiratory/Chest: Reports cough, dyspnea and sputum Gastrointestinal Gastrointestinal: Denies abdominal pain, diarrhea, nausea or vomiting Genitourinary Genitourinary ED: Denies dysuria or hematuria Musculoskeletal Musculoskeletal: Denies myalgias or neck pain Integumentary Denies abscess or rash Neurologic Neurologic: Reports headache(s); Denies paresthesias or weakness Psychiatric Psychiatric: Denies depression or suicidal thoughts Endocrine Endocrinology: Denies polydipsia or polyuria EXAM Physical Exam Const Vital Signs: 05/26/24 19:46 05/26/24 19:48 05/26/24 20:09 Temperature 98.6 F 98 F Temperature Source Oral Temporal Pulse Rate 111 H 99 Respiratory Rate 22 H 14 Respiratory Effort Respiratory Depth Respiratory Pattern Blood Pressure 142/92 H 148/89 H Blood Pressure Mean 108 108 Pulse Ox 93 96 91 Oxygen Delivery Method Nasal Cannula Nasal Cannula Nasal Cannula Oxygen Flow Rate (L/min) 5 5 5 Fraction of Inspired Oxygen (FIO2) 05/26/24 20:09 05/26/24 20:10 05/26/24 20:10 Temperature Temperature Source Pulse Rate 100 Respiratory Rate 14 Respiratory Effort Short of Breath Respiratory Depth Shallow Respiratory Pattern Tachypnea Normal Blood Pressure Blood Pressure Mean Pulse Ox 98 Oxygen Delivery Method Nasal Cannula Nasal Cannula Oxygen Flow Rate (L/min) 5 Fraction of Inspired Oxygen (FIO2) 5 05/26/24 20:46 Temperature Temperature Source Pulse Rate 99 Respiratory Rate 18 Respiratory Effort Respiratory Depth Respiratory Pattern Blood Pressure 105/63 Blood Pressure Mean 77 Pulse Ox 96 Oxygen Delivery Method Nasal Cannula Oxygen Flow Rate (L/min) 5 Fraction of Inspired Oxygen (FIO2) Positive well nourished, well developed and obese General Appearance ED: well developed and NAD Nutritional Appearance: obese HEENT Reports moist mucous membranes normocephalic and atraumatic Throat: Negative for posterior oropharynx abnormal Eyes PERRL and EOMs intact bilaterally Neck no lymphadenopathy, supple and no meningeal signs Resp normal respiratory effort Resp Narrative: Obesity limits exam somewhat; few end expiratory wheezes bilaterally without respiratory distress, possibly few rhonchi bibasilar. Cardio no murmurs Cardio Narrative: mild tachycardia Rate: regular rate Rhythm: regular rhythm GI non-tender and non-distended Neuro oriented x3, CN's II-XII intact bilaterally and no sensory deficits noted Sensorium / Orientation: alert Motor Exam: strength 5/5 throughout Psych mental status grossly normal Skin no wounds and skin turgor normal Lesions: no lesions Rashes: no rashes MDM MDM MDM Narrative Medical decision making narrative: And considering pneumonia to be chest x-ray was obtained, which is chronic changes in the left base of mitral rotation unchanged compared with the prior, and no pneumonia. Radiology in agreement. Her viral swab is positive for influenza A. She is doing better after nebulizer treatment. She is not hypoxic on her 5 L of home oxygen and her vital signs normalized after the treatment. She has had symptoms for more than 48 hours or Tamiflu not indicated. Supportive care advised, she was given Tylenol for fever here and will start her on a burst of prednisone for her asthma. Radiography Diagnostic Testing: Clinical Impression(s) from Imaging Studies Chest X-Ray 05/26/24 20:00 IMPRESSION: No radiographic evidence of acute cardiopulmonary disease. Electronically Signed: Angelo Freedman MD at 20:34 EST , Discharge Plan Triage Chief Complaint: Shortness of Breath ED Provider: Onesimo Willson Dx/Rx/DC Orders Clinical Impression: Influenza A, Acute asthma exacerbation Instructions: ED Influenza (Adult) Prescriptions: Continued albuterol sulfate 1 INHALER inhaler 1 - 2 puff INHALATION Q4H PRN PRN (Reason: Wheezing) Qty: 1 0RF montelukast 10 MG tablet 10 mg PO DAILY furosemide 20 mg tablet 20 mg PO DAILY prednisone 20 MG tablet 40 mg PO DAILY Qty: 10 0RF Rx Instructions: With food No Action cephalexin 500 mg capsule 500 mg PO Q6 Qty: 40 0RF Primary Care Provider: Joanne Connors Referrals: Joanne Connors, ENGROSSER-C [Primary Care Provider] - 1 Week if not improving Print Language: Ghanaian Disposition Disposition: Home, Self Care
--- NOTE | 2024-05-26 20:00 | RAD_ITS ---
EXAM: XR CHEST, 2 VIEWS CLINICAL INDICATION: cough fever sob asthma TECHNIQUE: Frontal and lateral views of the chest. COMPARISON: 03/13/2018 FINDINGS: LUNGS AND PLEURAL SPACES: Unremarkable. No consolidation or edema. No pneumothorax. No effusion. HEART: Unremarkable. Cardiac silhouette not enlarged. MEDIASTINUM: Central airways and mediastinal contour are unremarkable. BONES/JOINTS: Unremarkable. No acute fracture. SOFT TISSUES: Unremarkable. RAD/Chest PA and Lateral IMPRESSION: No radiographic evidence of acute cardiopulmonary disease. Electronically Signed: Angelo Freedman MD at 20:34 EST ,
[2024-05-26] MEDS: Ipratropium/Albuterol Sulfate 3 ML AMPUL.NEB INHALATION (20:10)
[2024-05-26] MEDS: predniSONE 20 MG Tablet 40 MG PO (20:58)
[2024-05-26] MEDS: Acetaminophen 500 MG Tablet 1000 MG PO (20:58)
== END 2024-05-26 21:05 | disposition home or self-care (01) ==
PROVIDERS: Emergency Provider Emergency Medicine; PCP Nurse Practitioner Family; Visit Provider Emergency Medicine
DX: J10.1 Influenza due to other identified influenza virus with other respiratory manifestations (principal); J45.901 Unspecified asthma with (acute) exacerbation; Z87.891 Personal history of nicotine dependence
CPT/HCPCS: 71046; 87631; 94640; 99283

== ENCOUNTER 2024-09-03 14:20 | Inpatient (IN) | payer MEDICARE, MEDICAID, SELFPAY ==
[2024-09-03] VITALS (23 sets, daily range): BP systolic 111–168; BP diastolic 64–139; PULSE 100–137; RESP 14–32; TEMP 36.9–38.2; O2SAT 87–100; BMI 60.0
--- NOTE | 2024-09-03 15:33 | VDLE_ITS ---
Reason For Study Reason For Study: LLE Pain Procedure LEFT This is a venous duplex using B-mode, color flow and GSV is normal. spectral Doppler. CFV is compressible, spontaneous, phasic, competent, Exam performed portable in ED. and demonstrates normal augmentation. Limited views were obtained due to body habitus. FV is compressible, spontaneous, phasic, competent A preliminary report was called and/or faxed to and demonstrates normal augmentation. Bailey. POP V is compressible, spontaneous, phasic, competent and demonstrates normal augmentation. T/P Trunk is compressible. PTV is compressible. Unable to acquire compressions at mid and dist Femoral Vein. Flow noted in pulsed wave and color doppler. Unable to visualize Ashish V. VL/Venous Duplex US, Unilateral Interpretation Summary Deep veins of the left lower extremity are patent and compressible segmentally. There is no evidence of left lower extremity deep vein thrombosis. The left great saphenous vein appears patent an d compressible segmentally. Limited study Ordering Physician: Randy Bailey Referring Physician: Joanne Connors Performed By: Srinath Chahal, RVT
--- NOTE | 2024-09-03 15:33 | EKG12_ITS ---
Test Reason : SOB Blood Pressure : */* mmHG Vent. Rate : 133 BPM Atrial Rate : 133 BPM P-R Int : 130 ms QRS Dur : 88 ms QT Int : 310 ms P-R-T Axes : 50 -63 25 degrees QTcB Int : 461 ms Sinus tachycardia Indeterminate axis Inferior infarct , age undetermined Abnormal ECG Confirmed by SARAHI FUENTES, TONO ([id number]), society editor EVER GAONA ([id number]) on 09/04/2024 1:32:03 PM Referred By: UG/TL Confirmed By: TONO MCCLAIN MD
--- NOTE | 2024-09-03 15:36 | EX.ED.DYSGE1 ---
HPI History of Present Illness Chief Complaint: Shortness of Breath Detail of Chief Complaint: Shortness of breath and upper respiratory symptoms Informant: patient, family and EMS (Pulse ox was 60% when patient was supine.) Onset/Context/Timing Onset: Days Context: Gradual Onset Timing: Continuous Quality: Dyspnea, [place] exertion, orthopnea, infectious symptoms Location: Respiratory Current Severity: Moderate Maximum Severity: Severe Worsened by: Movement and supine position Relieved by: Nothing Associated Symptoms Associated Symptoms: Left leg pain that started today Narrative Narrative: Patient is a 34-year-old female with history of obstructive sleep apnea, congestive heart failure, lymphedema, chronic respiratory failure on 5 L of oxygen by nasal cannula. She is seen by Dr. Holcomb at the [facility]. She had recent pulmonary function test done. Patient denies headache, visual, ocular auditory symptoms. She does endorse congestion and mild sore throat. Her voice is hoarse. She does have a cough. The cough is nonproductive. She states she normally wheezes. She has been on prednisone in the past. Patient denies chest discomfort of any type. Patient denies GI or symptoms. She denies history of VTE. There is no history of trauma to the left lower extremity. The pain is from the distal thigh down to her ankle. Prior similar symptoms: Yes Recent Illness/Hospitalization: Yes ([facility]. She states she was on a Lasix drip.) [facility] Medical History Pneumonia COPD (chronic obstructive pulmonary disease) Environmental allergies Anemia Depression Asthma Medical History no medical history Home Medications ?Medication ?Instructions ?Recorded ?Last Taken ?Type montelukast 10 mg tablet 10 mg PO DAILY 03/13/18 09/02/24 History furosemide 20 mg tablet 20 mg PO DAILY 02/08/24 09/02/24 History albuterol sulfate 90 mcg/actuation 1 - 2 puff inhalation Q4H PRN 09/03/24 Unknown History aerosol inhaler Wheezing bumetanide 1 mg tablet 1 mg PO DAILY 09/03/24 09/02/24 History bupropion HCl 150 mg 24 hr tablet, 150 mg PO DAILY 09/03/24 09/02/24 History extended release cetirizine 10 mg tablet 10 mg PO DAILY 09/03/24 09/02/24 History cyclosporine 0.05 % eye drops in a 1 drp ophthalmic (eye) BID 09/03/24 Unknown History dropperette famotidine 20 mg tablet 20 mg PO BID PRN stomach upset 09/03/24 Unknown History ferrous sulfate 325 mg (65 mg 325 mg PO DAILY 09/03/24 09/02/24 History iron) tablet (FeroSul) fluticasone fur. 200 mcg-umeclid 1 ea inhalation DAILY 09/03/24 09/02/24 History 62.5 mcg-vilant 25 mcg inhalat.powder (Trelegy Ellipta) fluticasone propionate 50 1 spray intranasal BID allergy 09/03/24 Unknown History mcg/actuation nasal symptoms spray,suspension potassium chloride 20 mEq 20 meq PO DAILY 09/03/24 09/02/24 History tablet,extended release(part/cryst) sertraline 50 mg tablet 25 mg PO DAILY 09/03/24 Unknown History valacyclovir 500 mg tablet 500 mg PO BID 09/03/24 09/02/24 History Allergy/AdvReac Type Severity Reaction Status Date / Time No Known Allergies Allergy Verified 09/03/24 14:28 Family History no significant family his Surgical History Hx of knee surgery Hx of section Surgical History no surgical history Social History Smoking Status: Former smoker ROS ROS ED Constitutional Constitutional ED: Reports chills, fever(s) and subjective; Denies sweats or weight loss Eyes Eyes: Reports other Details: Slight drainage from both of her eyes. ; Denies blurry vision or change in vision ENT ENT ED: Reports rhinorrhea and sore throat Cardiovascular Cardiovascular: Reports orthopnea; Denies chest pain, palpitations, paroxysmal nocturnal dyspnea or racing heartbeat Respiratory/Chest Respiratory/Chest: Reports cough, dyspnea, dyspnea on exertion and orthopnea; Denies paroxysmal nocturnal dyspnea Gastrointestinal Gastrointestinal: Denies abdominal pain, diarrhea, melena, nausea or vomiting Genitourinary Genitourinary ED: Denies dysuria, hematuria or urinary frequency Musculoskeletal Musculoskeletal: Reports other Details: Left lower extremity pain as previously described. ; Denies arthralgias or myalgias Integumentary Denies rash Psychiatric Psychiatric: Denies anxiety or depression Endocrine Endocrinology: Denies cold intolerance or heat intolerance Hematologic/Lymphatic Hematologic/Lymphatic: Reports systems reviewed and no addt'l complaints, except as documented EXAM Physical Exam Const Vital Signs: 09/03/24 14:21 09/03/24 14:25 09/03/24 14:28 Temperature 98.7 F 98.7 F Temperature Source Oral Oral Pulse Rate 137 H 135 H Respiratory Rate 28 H 29 H Respiratory Effort Short of Breath Labored Respiratory Depth Shallow Respiratory Pattern Tachypnea Blood Pressure 156/139 H 168/96 H Blood Pressure Mean 144 120 Pulse Ox 92 96 Oxygen Delivery Method High Flow High Flow High Flow Oxygen Flow Rate (L/min) 15 13 13 Fraction of Inspired Oxygen (FIO2) 09/03/24 15:14 09/03/24 15:15 09/03/24 15:23 Temperature 99.4 F H Temperature Source Oral Pulse Rate 130 H 131 H 131 H Respiratory Rate 23 H 23 H 25 H Respiratory Effort Respiratory Depth Respiratory Pattern Blood Pressure 155/80 H 155/80 H Blood Pressure Mean 93 105 Pulse Ox 91 90 92 Oxygen Delivery Method High Flow Oxygen Flow Rate (L/min) 13 Fraction of Inspired Oxygen (FIO2) 09/03/24 15:30 09/03/24 15:45 09/03/24 16:00 Temperature 100.7 F H Temperature Source Axillary Pulse Rate 132 H 131 H 124 H Respiratory Rate 27 H 22 H 24 H Respiratory Effort Respiratory Depth Respiratory Pattern Blood Pressure 139/83 H 133/106 H 142/114 H Blood Pressure Mean 101 113 123 Pulse Ox 93 97 98 Oxygen Delivery Method Bi-pap Oxygen Flow Rate (L/min) Fraction of Inspired Oxygen (FIO2) 70 09/03/24 16:00 09/03/24 16:03 09/03/24 16:03 Temperature Temperature Source Pulse Rate 129 H 126 H 126 H Respiratory Rate 26 H 30 H 30 H Respiratory Effort Respiratory Depth Respiratory Pattern Blood Pressure 142/114 H Blood Pressure Mean 122 Pulse Ox 87 98 Oxygen Delivery Method Oxygen Flow Rate (L/min) Fraction of Inspired Oxygen (FIO2) 70 09/03/24 16:15 09/03/24 16:30 09/03/24 16:45 Temperature Temperature Source Pulse Rate 126 H 127 H 126 H Respiratory Rate 25 H 32 H 30 H Respiratory Effort Respiratory Depth Respiratory Pattern Blood Pressure 128/85 H 131/94 H 152/129 H Blood Pressure Mean 96 99 137 Pulse Ox 98 100 98 Oxygen Delivery Method Oxygen Flow Rate (L/min) Fraction of Inspired Oxygen (FIO2) 09/03/24 17:00 09/03/24 17:00 09/03/24 17:15 Temperature 100.4 F H Temperature Source Oral Pulse Rate 126 H 132 H Respiratory Rate 31 H 26 H Respiratory Effort Respiratory Depth Respiratory Pattern Blood Pressure 152/129 H 146/94 H Blood Pressure Mean 136 105 Pulse Ox 98 97 Oxygen Delivery Method Bi-pap Oxygen Flow Rate (L/min) Fraction of Inspired Oxygen (FIO2) 70 60 09/03/24 17:17 Temperature 100.4 F H Temperature Source Pulse Rate 127 H Respiratory Rate 20 H Respiratory Effort Respiratory Depth Respiratory Pattern Blood Pressure 146/94 H Blood Pressure Mean 111 Pulse Ox 96 Oxygen Delivery Method Oxygen Flow Rate (L/min) Fraction of Inspired Oxygen (FIO2) Constitutional Narrative: Patient's voice is hoarse. She is tachypneic and tachycardic. She is on high flow oxygen at 13 L with a saturation of 90 to 91%. Her BMI is greater than 60. General Appearance ED: Negative for cyanotic, diaphoretic, NAD or pallor HEENT Reports moist mucous membranes HEENT Narrative: Head is atraumatic normocephalic. Ears normal. Nares patent with discharge. Posterior pharynx is normal. Eyes PERRL and EOMs intact bilaterally General Eye ED: Negative for pale conjunctiva or scleral icterus Neck no lymphadenopathy, supple and no JVD Neck Narrative: Trachea is midline. There is no inspiratory stridor. Resp No normal respiratory effort and No clear to auscultation bilaterally Resp Narrative: There is use of accessory muscles. Auscultation: wheezes expiratory wheezes and throughout (Expiratory phase is increased.) Cardio regular rhythm, S1 normal heart sound, S2 normal heart sound and no murmurs Rate: tachycardic GI normal to inspection, nondistended, normoactive bowel sounds, non-tender, non-distended and no masses; Negative for hepatosplenomegaly Back/Spine no CVA tenderness Extremity Extremity Narrative: The left lower extremity is swollen compared to the right. There is tenderness. Due to body habitus unable to appreciate any veins to determine if there is any distention of the veins. Unable to palpate anything either. General Extremety ED: Yes edema and tenderness General Extremity: edema Neuro oriented x3 and CN's II-XII intact bilaterally Neuro Narrative: Patient is awake but not alert. Sensorium / Orientation: Negative for alert Psych Psych Narrative: Affect is depressed. Skin no rashes or lesions noted, no wounds and skin turgor normal General Skin Exam: Negative for pallor MDM MDM MDM Narrative Medical decision making narrative: With the patient have a cough fever respiratory symptoms suspect infectious cause of her respiratory failure of acute on chronic. VBG was obtained to assess acid-base status and CO2. With her having swelling of left leg and pain venous duplex study was ordered to rule out DVT. Chest x-ray was obtained to assess for pneumonia. As well as CHF since she is having orthopnea. EKG was obtained to evaluate for cardiac ischemia as well as troponin. Since it has been going on for greater than 24 hours 1 troponin was obtained. History & Record Review Additional record(s) reviewed:: Prior ED visit (Most recent ER visit was May 2024 for exacerbation of asthma. She was seen in February 2024 for cellulitis.) and Prior labs Lab Data Attestation: I reviewed the patient's lab results. Lab results narrative: White count is elevated 15,000 with shift. There is no bandemia. There is evidence of mild anemia. Indices are abnormal. MCV is 75. Electrolyte panel is remarked for an elevated CO2. Lactate was normal. Labs: Laboratory Results - last 24 hr 09/03/24 09/03/24 14:25 14:29 WBC 15.0 H RBC 5.83 H Hgb 11.8 L Hct 44.0 MCV 75.5 L MCH 20.2 L MCHC 26.8 L RDW Std Deviation 49.2 H RDW Coeff of Micha 18.7 H Plt Count 276 MPV 10.3 Immature Gran % (Auto) 1.200 H Neut % (Auto) 80.1 H Lymph % (Auto) 10.9 L [place] % (Auto) 6.9 Eos % (Auto) 0.7 Baso % (Auto) 0.2 Absolute Neuts (auto) 12.0 H Absolute Lymphs (auto) 1.63 Nucleated RBC % 0.5 Sodium 142 Potassium 4.4 Chloride 99 Carbon Dioxide 35.6 H Anion Gap 8 BUN 11 Creatinine 0.72 Estim Creat Clear Calc 220.04 Est GFR (MDRD) Non-Af 114 BUN/Creatinine Ratio 15.3 Glucose 102 H Lactic Acid < 1.0 Calcium 8.7 Total Bilirubin 0.24 AST 33 H ALT 29 Alkaline Phosphatase 98 Total Protein 6.1 Albumin 4.0 Globulin 2.1 L Albumin/Globulin Ratio 1.9 ABG Data Attestation: I personally reviewed and interpreted this ABG as follows: Interpretation: VBG reveals a respiratory acidosis with metabolic compensation. pH is 7.30, PO2 is 30, bicarb is 41, total CO2 is 43, pCO2 is 83. Patient was placed on BiPAP. She is doing much better on BiPAP. ABG results: ABG 09/03/24 09/03/24 15:39 17:23 Specimen Type NAN NAN Sample Site Not entered Not entered O2 % 13.0 70.0 VBG pH 7.30 L 7.33 VBG pO2 30 71 H VBG HCO3 41 H 39 H VBG Total CO2 43 H 42 H VBG O2 Sat (Calc) 47 L 92 H VBG Base Excess 14 H 13 H POC Mix VBG pCO2 Pt Tmp 83.3 H* 74.7 H* O2 Delivery Device Cannula BiPAP Crit Call To/Read Back Yes Yes Blood Gas Notified Whom ug Blood Gas Notified Time 15:40:35 17:24:21 Radiography Chest X-Ray - ED: 1 View and Read by ED Physician (There is no effusion. There is an infiltrate right upper lobe. There is a large area of consolidation. Cardiac size and silhouette normal. Osseous structures unremarkable.) Diagnostic Testing: Clinical Impression(s) from Imaging Studies Venous Doppler Study 09/03/24 15:33 Interpretation Summary Deep veins of the left lower extremity are patent and compressible segmentally. There is no evidence of left lower extremity deep vein thrombosis. The left great saphenous vein appears patent and compressible segmentally. Limited study Ordering Physician: Randy Bailey Referring Physician: Joanne Connors Performed By: Srinath Chahal, RVT Chest X-Ray 09/03/24 17:00 IMPRESSION: 1. Findings compatible with RIGHT upper lobe pneumonia. Follow-up to radiographic resolution. 2. Additional description as above. Reading Location: [id number] Management Discussion w/another healthcare provider: Hospitalist (Hospitalist saw patient. Plan is admit ICU.) Treatment and Re-Evaluation :: Repeat VBG was obtained to see if there is improvement at after treatment with the Atrovent, albuterol and BiPAP. Vital Sign Attestation:: Repeat ABG reveals a pH of 7.33, pCO2 74.7, pO2 71.1, bicarb 39.2 with a 91.7% saturation. 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
[2024-09-03 15:44] LABS: Blood Gas Specimen Type VEN; O2 Delivery Device Cannula; SITE Not entered; Time Given 15:40:35; VBG BASE EXCESS 14 mmol/L (-1.0-3.5); VBG Bicarbonate 41 mmol/L (22-26); VBG PO2 30 mmHg (25-40); VBG SO2 47 % (50-70); VBG TCO2 43 mmol/L (23-33); VBG pCO2 83.3 mmHg (41-51)
[2024-09-03 15:52] LABS: Absolute Lymphocyte Count 1.63 X10^3/uL (0.83-4.51); Basophil# 0.03 X10^3/uL; Basophil% 0.2 % (0-1); Eosinophil# 0.11 X10^3/uL; Eosinophils% 0.7 % (0-5); Hemoglobin 11.8 g/dL (12.0-15.0); Lymphocyte # 1.63 X10^3/ul (0.83-4.51); Lymphocyte % 10.9 % (19-41); Mean Corp Hgb Conc 26.8 g/dL (32-36); Mean Corpuscular Hgb 20.2 pg (27.0-32.0); Mean Corpuscular Volume 75.5 fL (81-99); Mean Platelet Vol. 10.3 fl (6.2-12.0); Monocyte# 1.04 X10^3/uL; Monocyte% 6.9 % (0-10); NRBC Flagged by Analyzer 0.5 % (0-5); Neutrophil # 12.01 X10^3/uL (2.7-7.7); Neutrophil % 80.1 % (47-70); Platelet Count 276 K/mm3 (150-450); RBC Distribution Width CV 18.7 % (11.6-14.6); RBC Distribution Width SD 49.2 fl (35.1-43.9); Red Blood Count 5.83 M/mm3 (4.2-5.4)
[2024-09-03] MEDS: Albuterol 2.5 MG/3 ML VIAL.NEB. INHALATION ×3 (16:00→16:01)
[2024-09-03] MEDS: Ipratropium/Albuterol Sulfate 3 ML AMPUL.NEB INHALATION ×3 (16:01→22:55)
[2024-09-03 16:15] LABS: Lactic Acid < 1.0 mmol/L (0.0-2.0)
[2024-09-03 16:16] LABS: ALB/GLOB Ratio 1.9 RATIO (0.9-2.4); AST(SGOT) 33 U/L (<=31); Alanine Aminotransfer ALT/SGPT 29 U/L (<=34); Alkaline Phosphatase 98 U/L (35-104); Anion Gap 8 (5-15); BUN 11 mg/dL (4-19); BUN/Creat Ratio 15.3 RATIO (10-20); Calcium,Total 8.7 mg/dL (7.6-11.0); Carbon Dioxide 35.6 mmol/L (21.0-32.0); Chloride 99 mmol/L (98-108); Creatinine, Serum 0.72 mg/dL (0.70-1.20); EST Glomerular Filtration Rate 114 (>60); Estimated Creatinine Clearance 220.04 ml/min (50-250); Globulin 2.1 g/dL (2.2-4.2); Glucose 102 mg/dL (70-99); Potassium 4.4 mmol/L (3.3-5.1); Protein, Total 6.1 g/dL (5.9-8.4); Sodium Level 142 mmol/L (133-145); Total Bilirubin 0.24 mg/dL (0.00-1.30)
--- NOTE | 2024-09-03 17:00 | RAD_ITS ---
PROCEDURE: CHEST 1 VIEW (PORTABLE) (RADCXPA_P), 09/03/2024 REASON FOR EXAM: FEVER, COUGH, WHEEZING, RESPIRATORY FAILURE TECHNIQUE: A single portable AP view of the chest was obtained. COMPARISON: 05/26/2024 FINDINGS: Heart: Unremarkable. Mediastinum: Unremarkable. Lungs/pleura: Similar slight elevation of the LEFT hemidiaphragm with grossly similar chronic LEFT basilar atelectasis/scarring. New RIGHT upper lobe consolidation well marginated by the minor fissure. No sizeable pleural effusion or visible pneumothorax. Bones: Unremarkable. Lines and support devices: None. Other: None. RAD/Chest 1 View (Portable) IMPRESSION: 1. Findings compatible with RIGHT upper lobe pneumonia. Follow-up to radiograp hic resolution. 2. Additional description as above. Reading Location: [id number]
[2024-09-03] MEDS: Morphine 4 MG/ML Syringe IV (17:04)
[2024-09-03 17:27] LABS: Blood Gas Specimen Type VEN; O2 Delivery Device BiPAP; SITE Not entered; Time Given 17:24:21; VBG BASE EXCESS 13 mmol/L (-1.0-3.5); VBG Bicarbonate 39 mmol/L (22-26); VBG PO2 71 mmHg (25-40); VBG SO2 92 % (50-70); VBG TCO2 42 mmol/L (23-33); VBG pCO2 74.7 mmHg (41-51); VBG pH 7.33 (7.32-7.42)
[2024-09-03] MEDS: Ceftriaxone 2 GM in 0.9% Normal Saline (50mL MB+) 50 ML IV (17:38)
[2024-09-03] MEDS: MethylPREDNISolone 125 MG/2 ML Vial IV (17:40)
[2024-09-03] MEDS: Azithromycin 500 MG in 0.9% Normal Saline (250mL Bag) 250 ML 255 MG IV (17:41)
--- NOTE | 2024-09-03 18:00 | HP.PCM.HOS_ITS ---
HPI - General General Date of Admission: 09/03/24 HPI Narrative SHIRA NOONAN, is a 34 F who presents to the hospital with increasing shortness of breath. She has a history of asthma and has noticed that over the last couple of days that she was having increased shortness of breath with a slight increase in her cough. Today she noticed that she had some fevers and with her shortness of breath and upper respiratory symptoms she presented to the hospital. She was found to be 60% when laying back on her home 5 L nasal cannula and ABG demonstrated pH of 7.2 and a VBG PCO2 low of 83 so she was placed on BiPAP with subsequent improvement of her pCO2 to 74 however her oxygen saturations were sitting at 94% on 60% FiO2. Chest x-ray demonstrates a right upper lobe consolidation and with her leukocytosis and fever consistent with pneumonia. [facility] Medical History Pneumonia COPD (chronic obstructive pulmonary disease) Environmental allergies Anemia Depression Asthma Medical History no medical history Home Medications ?Medication ?Instructions ?Recorded ?Last Taken ?Type montelukast 10 mg tablet 10 mg PO DAILY 03/13/1808/07 History albuterol sulfate 90 mcg/actuation 1 - 2 puff inhalati on Q4H PRN 09/03/24 Unknown History aerosol inhaler Wheezing bumetanide 1 mg tablet 1 mg PO DAILY 09/03/2409/02 History bupropion HCl 150 mg 24 hr tablet, 150 mg PO DAILY 09/02/24 History extended release cetirizine 10 mg tablet 10 mg PO DAILY 09/03/2408/07 History cyclosporine 0.05 % eye drops in a 1 drp ophthalmic (e ye) BID 09/03/24 Unknown History dropperette famotidine 20 mg tablet 20 mg PO BID PRN stomach ups et 09/03/24 Unknown History ferrous sulfate 325 mg (65 mg 325 mg PO DAILY 09/03/24 09/02/24 History iron) tablet (FeroSul) fluticasone fur. 200 mcg-umeclid 1 ea inhalation DAILY 09/03/24 09/02/24 History 62.5 mcg-vilant 25 mcg inhalat.powder (Trelegy Ellipta) fluticasone propionate 50 1 spray intranasal BID aller gy 09/03/24 Unknown History mcg/actuation nasal symptoms spray,suspension potassium chloride 20 mEq 20 meq PO DAILY 09/03/24 History tablet,extended release(part/cryst) sertraline 50 mg tablet 25 mg PO DAILY 09/03/24 Unkn own History Allergy/AdvReac Type Severity Reaction Status Date / Time No Known Allergies Allergy Verified 09/03/24 14:28 Family History (Updated 09/03/24 @ 18:[address] Jesse Lobo MD) Other Cancer Family History no significant family his Surgical History Hx of knee surgery Hx of section Surgical History no surgical history Social History Smoking Status: Former smoker ROS Constitutional Constitutional: Reports chills and fever(s); Denies fatigue or malaise Eyes Eyes: Denies blurry vision ENT HEENT: Denies headache(s) or nasal discharge Cardiovascular Cardiovascular: Denies chest pain, dyspnea on exertion or syncope Respiratory/Chest Respiratory/Chest: Reports cough, shortness of breath at rest and shortness of breath with exertion Gastrointestinal Gastrointestinal: Denies constipation, diarrhea, nausea or vomiting Genitourinary Genitourinary: Denies dysuria Neurologic Neurologic: Denies focal weakness, numbness or tremor(s) Psychiatric Psychiatric: Denies anxiety or depression Vital Signs Vital Signs Vital Signs: 09/03/24 14:21 09/03/24 14:25 09/03/24 14:28 Temperature 98.7 F 98.7 F Temperature Source Oral Oral Pulse Rate 137 H 135 H Respiratory Rate 28 H 29 H Respiratory Effort Short of Breath Labored Respiratory Depth Shallow Respiratory Pattern Tachypnea Blood Pressure 156/139 H 168/96 H Blood Pressure Mean 144 120 Pulse Ox 92 96 Oxygen Delivery Method High Flow High Flow High Flow Oxygen Flow Rate (L/min) 15 13 13 Fraction of Inspired Oxygen (FIO2) 09/03/24 15:14 09/03/24 15:15 09/03/24 15:23 Temperature 99.4 F H Temperature Source Oral Pulse Rate 130 H 131 H 131 H Respiratory Rate 23 H 23 H 25 H Respiratory Effort Respiratory Depth Respiratory Pattern Blood Pressure 155/80 H 155/80 H Blood Pressure Mean 93 105 Pulse Ox 91 90 92 Oxygen Delivery Method High Flow Oxygen Flow Rate (L/min) 13 Fraction of Inspired Oxygen (FIO2) 09/03/24 15:30 09/03/24 15:45 09/03/24 16:00 Temperature 100.7 F H Temperature Source Axillary Pulse Rate 132 H 131 H 124 H Respiratory Rate 27 H 22 H 24 H Respiratory Effort Respiratory Depth Respiratory Pattern Blood Pressure 139/83 H 133/106 H 142/114 H Blood Pressure Mean 101 113 123 Pulse Ox 93 97 98 Oxygen Delivery Method Bi-pap Oxygen Flow Rate (L/min) Fraction of Inspired Oxygen (FIO2) 70 09/03/24 16:00 09/03/24 16:03 09/03/24 16:03 Temperature Temperature Source Pulse Rate 129 H 126 H 126 H Respiratory Rate 26 H 30 H 30 H Respiratory Effort Respiratory Depth Respiratory Pattern Blood Pressure 142/114 H Blood Pressure Mean 122 Pulse Ox 87 98 Oxygen Delivery Method Oxygen Flow Rate (L/min) Fraction of Inspired Oxygen (FIO2) 70 09/03/24 16:15 09/03/24 16:30 09/03/24 16:45 Temperature Temperature Source Pulse Rate 126 H 127 H 126 H Respiratory Rate 25 H 32 H 30 H Respiratory Effort Respiratory Depth Respiratory Pattern Blood Pressure 128/85 H 131/94 H 152/129 H Blood Pressure Mean 96 99 137 Pulse Ox 98 100 98 Oxygen Delivery Method Oxygen Flow Rate (L/min) Fraction of Inspired Oxygen (FIO2) 09/03/24 17:00 09/03/24 17:00 09/03/24 17:15 Temperature 100.4 F H Temperature Source Oral Pulse Rate 126 H 132 H Respiratory Rate 31 H 26 H Respiratory Effort Respiratory Depth Respiratory Pattern Blood Pressure 152/129 H 146/94 H Blood Pressure Mean 136 105 Pulse Ox 98 97 Oxygen Delivery Method Bi-pap Oxygen Flow Rate (L/min) Fraction of Inspired Oxygen (FIO2) 70 60 09/03/24 17:17 Temperature 100.4 F H Temperature Source Pulse Rate 127 H Respiratory Rate 20 H Respiratory Effort Respiratory Depth Respiratory Pattern Blood Pressure 146/94 H Blood Pressure Mean 111 Pulse Ox 96 Oxygen Delivery Method Oxygen Flow Rate (L/min) Fraction of Inspired Oxygen (FIO2) Weight Weight: 443 lb 2.066 oz Body Mass Index (BMI) 60.0 Physical Exam Narrative General: Alert, Oriented x3, Cooperative, moderate respiratory distress HEENT: Atraumatic, PERRLA, EOMI, Normocephalic Oral: Moist Mucosa Neck: Supple, No JVD Lungs: Diminished, Normal air movement, rhonchi, wheeze, No rales, tachypneic Cardiovascular: Tachycardic, Regular Rhythm, Normal S1, Normal S2, No murmurs Abdomen: Soft, Non Tender, Non-Distended, No Hepato-splenomegaly Extremities: Left lower extremity edema, Capillary Refill Less than 3 Seconds Skin: No rashes, No breakdown Musculoskeletal: No Tenderness to Palpation of Joints or Extremities Neurological: No focal neurological deficits, Motor Exam 5/5 strength throughout, Sensory exam intact to light touch and pain Psych/Mental Status: Flat Results Lab / Micro Data 09/03/24 14:25 09/03/24 14: Labs: Laboratory Results - last 24 hr 09/03/24 14:: WBC 15.0 H, RBC 5.83 H, Hgb 11.8 L, Hct 44.0, MCV 75.5 L, MCH 20.2 L, MCHC 26.8 L, RDW Std Deviation 49.2 H, RDW Coeff of Micha 18.7 H, Plt Count 276, MPV 10.3, Immature Gran % (Auto) 1.200 H, Neut % (Auto) 80.1 H, Lymph % (Auto) 10.9 L, [place] % (Auto) 6.9, Eos % (Auto) 0.7, Baso % (Auto) 0.2, A bsolute Neuts (auto) 12.0 H, Absolute Lymphs (auto) 1.63, Nucleated RBC % 0.5 09/03/24 14:: Sodium 142, Potassium 4.4, Chloride 99, Carbon Dioxide 35.6 H, Anion Gap 8, BUN 11, Creatinine 0.72, Estim Creat Clear Calc 220.04, Est GFR (MDRD) Non-Af 114, BUN/Creatinine Ratio 15.3, Glucose 102 H, Lactic Acid < 1.0, Calcium 8.7, Total Bilirubin 0.24, AST 33 H, ALT 29, Alkaline Phosphatase 98, Total Protein 6.1, Albumin 4.0, Globulin 2.1 L, Albumin/Globulin Ratio 1.9 Micro: Microbiology 09/03/24 16:02 Mucosa - Nose SARS-CoV-2, Influenza & RSV (PCR) - Final ABG Data ABG results: ABG 09/03/24 09/03/24 15:39 17:23 Specimen Type NAN NAN Sample Site Not entered Not entered O2 % 13.0 70.0 VBG pH 7.30 L 7.33 VBG pO2 30 71 H VBG HCO3 41 H 39 H VBG Total CO2 43 H 42 H VBG O2 Sat (Calc) 47 L 92 H VBG Base Excess 14 H 13 H POC Mix VBG pCO2 Pt Tmp 83.3 H* 74.7 H* O2 Delivery Device Cannula BiPAP Crit Call To/Read Back Yes Yes Blood Gas Notified Whom ug ug Blood Gas Notified Time 15:40:35 17:24:21 Imaging Radiology Impression Venous Doppler Study 09/03/24 15:33 Interpretation Summary Deep veins of the left lower extremity are patent and compressible segmentally. There is no evidence of left lower extremity deep vein thrombosis. The left great saphenous vein appears patent and compressible segmentally. Limited study Ordering Physician: Randy Bailey Referring Physician: Joanne Connors Performed By: Srinath Chahal, T Chest X-Ray 09/03/24 17:00 IMPRESSION: 1. Findings compatible with RIGHT upper lobe pneumonia. Follow-up to radiographic resolution. 2. Additional description as above. Reading Location: [facility] Assessment & Plan Assessment/Plan (1) Right upper lobe pneumonia: PLAN: Plan 1. Acute on chronic hypoxic and acute hypercapnic respiratory failure secondary to right upper lobe pneumonia with an asthma exacerbation with respiratory acidosis ? Continue with antibiotics ? She had to be advanced to BiPAP which is new for her during the day, she does have sleep apnea at baseline as well as heart failure ? Only able to obtain a VBG which was acidotic on admission but the pCO2 does appear to be improving with BiPAP therapy ? Her situation is complicated by her body habitus and her morbid obesity with a BMI of 60.1 ? Will admit to the ICU for observation overnight and consult pulmonology ? She is not septic based on insurance ? Lactic acid is unremarkable, but will hold off of IV fluids secondary to her history of heart failure. Her last echo was in 2018 at this institution with an EF of 60% ? Continue with steroids and breathing treatments 2. CHF unknown type ? While she is not receiving IV fluids we will also hold her diuretic ? This is likely related to her obstructive sleep apnea and right-sided failure however cannot be sure without prior echocardiograms 3. Iron deficiency anemia ? Stable ? Continue with her iron supplementation 4. Anxiety/depression ? Stable ? Continue with her home medications DVT: Lovenox Charges/Coding Visit Charges Inpatient E&M: 83061 Init Hosp L3
[2024-09-03] MEDS: 0.9% Saline Lock 10 ML Syringe IV (21:38)
[2024-09-03] MEDS: Enoxaparin 40 MG/0.4 ML Syringe SC (21:38)
[2024-09-04] VITALS (19 sets, daily range): BP systolic 111–138; BP diastolic 58–93; PULSE 75–125; RESP 14–25; TEMP 36.2–37.3; O2SAT 92–100; BMI 59.4
[2024-09-04 03:46] LABS: Absolute Lymphocyte Count 0.95 X10^3/uL (0.83-4.51); Absolute Neutrophil Count 13.5 X10^3/uL (2.0-7.7); Basophil# 0.03 X10^3/uL; Basophil% 0.2 % (0-1); Hematocrit 40.1 % (37-47); Hemoglobin 10.7 g/dL (12.0-15.0); Lymphocyte # 0.95 X10^3/ul (0.83-4.51); Lymphocyte % 6.4 % (19-41); Mean Corp Hgb Conc 26.7 g/dL (32-36); Mean Corpuscular Hgb 20.2 pg (27.0-32.0); Mean Corpuscular Volume 75.8 fL (81-99); Mean Platelet Vol. 9.8 fl (6.2-12.0); Monocyte# 0.26 X10^3/uL; Monocyte% 1.7 % (0-10); NRBC Flagged by Analyzer 0.3 % (0-5); Neutrophil # 13.52 X10^3/uL (2.7-7.7); Neutrophil % 90.6 % (47-70); Platelet Count 236 K/mm3 (150-450); RBC Distribution Width SD 48.8 fl (35.1-43.9); Red Blood Count 5.29 M/mm3 (4.2-5.4); White Blood Count 14.9 K/mm3 (4.4-11.0)
[2024-09-04 04:10] LABS: Anion Gap 7 (5-15); BUN 10 mg/dL (4-19); BUN/Creat Ratio 15.3 RATIO (10-20); Calcium,Total 8.5 mg/dL (7.6-11.0); Carbon Dioxide 33.9 mmol/L (21.0-32.0); Chloride 100 mmol/L (98-108); Creatinine, Serum 0.63 mg/dL (0.70-1.20); EST Glomerular Filtration Rate 121 (>60); Estimated Creatinine Clearance 250.02 ml/min (50-250); Glucose 192 mg/dL (70-99); Potassium 5.1 mmol/L (3.3-5.1); Sodium Level 141 mmol/L (133-145)
[2024-09-04] MEDS: 0.9% Saline Lock 10 ML Syringe IV ×3 (05:04→22:37)
--- NOTE | 2024-09-04 07:16 | PCM.PN.HOSP ---
Reason for Visit Reason for Visit: Diagnoses Pneumonia, unspecified organism (09/03/24) Subjective Subjective Patient is a 34-year-old lady with past medical history significant for chronic congestive heart failure, morbid obesity with BMI of 59.6 who presented with shortness of breath and hypoxia. Imaging studies obtained demonstrated right upper lobe pneumonia. An assessment of acute on chronic hypoxic and hypercapnic respiratory failure made placed on BiPAP admitted to the intensive care unit for further management Objective Data Objective Data Vital Signs: Vital Signs Temp Pulse Resp BP Pulse Ox O2 Del Method O2 Flow Rate 97.5 F L 77 16 123/87 H 99 High Flow 13 09/04/24 06:00 09/04/24 07:00 09/04/24 07:00 09/04/24 07:00 09/04/24 07:00 09/04/24 07:00 09/04/24 07:00 FiO2 55 09/04/24 04:00 Oxygen Flow Rate (L/min) 13 Oxygen Delivery Method High Flow Weight: 199.2 kg Body Mass Index (BMI) 59.4 Intake & Output: Intake and Output for Last 24 Hours 09/02/24 09/03/24 09/04/24 23:59 23:59 23:59 Intake Total 425 / 425 Output Total 850 / 850 Balance -850 / -850 Lab / Micro Data 09/04/24 03:37 09/04/24 03:37 Labs: Laboratory Results - last 24 hr 09/03/24 14:25: WBC 15.0 H, RBC 5.83 H, Hgb 11.8 L, Hct 44.0, MCV 75.5 L, MCH 20.2 L, MCHC 26.8 L, RDW Std Deviation 49.2 H, RDW Coeff of Micha 18.7 H, Plt Count 276, MPV 10.3, Immature Gran % (Auto) 1.200 H, Neut % (Auto) 80.1 H, Lymph % (Auto) 10.9 L, [place] % (Auto) 6.9, Eos % (Auto) 0.7, Baso % (Auto) 0.2, Absolute Neuts (auto) 12.0 H, Absolute Lymphs (auto) 1.63, Nucleated RBC % 0.5 09/03/24 14:29: Sodium 142, Potassium 4.4, Chloride 99, Carbon Dioxide 35.6 H, Anion Gap 8, BUN 11, Creatinine 0.72, Estim Creat Clear Calc 220.04, Est GFR (MDRD) Non-Af 114, BUN/Creatinine Ratio 15.3, Glucose 102 H, Lactic Acid < 1.0, Calcium 8.7, Total Bilirubin 0.24, AST 33 H, ALT 29, Alkaline Phosphatase 98, Total Protein 6.1, Albumin 4.0, Globulin 2.1 L, Albumin/Globulin Ratio 1.9 09/04/24 03:37: WBC 14.9 H, RBC 5.29, Hgb 10.7 L, Hct 40.1, MCV 75.8 L, MCH 20.2 L, MCHC 26.7 L, RDW Std Deviation 48.8 H, RDW Coeff of Micha 18.0 H, Plt Count 236, MPV 9.8, Immature Gran % (Auto) 1.100 H, Neut % (Auto) 90.6 H, Lymph % (Auto) 6.4 L, [place] % (Auto) 1.7, Eos % (Auto) 0.0, Baso % (Auto) 0.2, Absolute Neuts (auto) 13.5 H, Absolute Lymphs (auto) 0.95, Nucleated RBC % 0.3, Sodium 141, Potassium 5.1, Chloride 100, Carbon Dioxide 33.9 H, Anion Gap 7, BUN 10, Creatinine 0.63 L, Estim Creat Clear Calc 250.02 H, Est GFR (MDRD) Non-Af 121, BUN/Creatinine Ratio 15.3, Glucose 192 H, Calcium 8.5 Micro: Microbiology 09/03/24 16:02 Mucosa - Nose SARS-CoV-2, Influenza & RSV (PCR) - Final ABG Data ABG results: ABG 09/03/24 09/03/24 15:39 17:23 Specimen Type NAN NAN Sample Site Not entered Not entered O2 % 13.0 70.0 VBG pH 7.30 L 7.33 VBG pO2 30 71 H VBG HCO3 41 H 39 H VBG Total CO2 43 H 42 H VBG O2 Sat (Calc) 47 L 92 H VBG Base Excess 14 H 13 H POC Mix VBG pCO2 Pt Tmp 83.3 H* 74.7 H* O2 Delivery Device Cannula BiPAP Crit Call To/Read Back Yes Yes Blood Gas Notified Whom ug ug Blood Gas Notified Time 15:40:35 17:24:21 Radiography Diagnostic Testing: Radiology Impression Venous Doppler Study 09/03/24 15:33 Interpretation Summary Deep veins of the left lower extremity are patent and compressible segmentally. There is no evidence of left lower extremity deep vein thrombosis. The left great saphenous vein appears patent and compressible segmentally. Limited study Ordering Physician: Randy Bailey Referring Physician: Joanne Connors Performed By: Srinath Chahal RVT Chest X-Ray 09/03/24 17:00 IMPRESSION: 1. Findings compatible with RIGHT upper lobe pneumonia. Follow-up to radiographic resolution. 2. Additional description as above. Reading Location: [facility] Physical Exam Narrative GENERAL: Cooperative HEENT: Atraumatic; normocephalic EYES; Anicteric, Normal Conjunctiva NECK; supple, normal thyroid, RESPIRATORY: Diminished to auscultation CARDIOVASCULAR: Regular S1 S2, GI: soft, normoactive bowel sounds, : No Renal angle tenderness; EXTREMITIES: No edema, no clubbing, MUSCULOSKELETAL: no muscle wasting NEURO: Awake; no lateralizing signs. SKIN: Extensive vitiligo PSYCH; Flat affect Assessment & Plan Assessment/Plan (1) Right upper lobe pneumonia: PLAN: Plan Patient is a 34-year-old lady with past medical history significant for chronic congestive heart failure, morbid obesity with BMI of 59.6 who presented with shortness of breath and hypoxia. Imaging studies obtained demonstrated right upper lobe pneumonia. An assessment of acute on chronic hypoxic and hypercapnic respiratory failure made placed on BiPAP admitted to the intensive care unit for further management 1. Acute on chronic hypoxic and hypercapnic respiratory failure ? Due to combination of pneumonia, asthma exacerbation as well as suspected CHF exacerbation. Patient was placed on noninvasive ventilation with BiPAP with oxygen titrated to keep saturation greater than 90 2. Pneumonia - Suspected to be secondary to streptococcal pneumonia, Blood and sputum cultures sent. Patient placed on Rocephin and Zithromax and placed on oxygen titrated to keep Pulse Ox greater than 90. Patient presented with acute hypoxic and hypercapnic respiratory failure patient was placed on noninvasive ventilation BiPAP as discussed above 3. Asthma with acute exacerbation ? In addition to above management patient was placed on systemic steroids and bronchodilator treatments 4. Class III obesity with BMI of 59.6 ? Complicating care weight loss advised 5. Acute on chronic congestive heart failure with preserved ejection for ? Echo obtained on 01/16/2018 demonstrated 60%. Patient placed on diuretic therapy in addition to strict input and output, fluid restriction Daily I's and O's and repeat echo ordered for EF assessment 6. Depression with anxiety ? Patient is on sertraline continue 7. Allergic rhinitis ? Patient is on montelukast did continue 8. Anemia ? Secondary to chronic disorder Red cell indices demonstrated microcytic anemia with MCV of 75.8. Monitoring H&H and transfuse if patient becomes symptomatic or hemoglobin falls below 7. Also ordered iron studies 9. Hyperglycemia ? Suspected to be secondary to patient receiving systemic steroid however ordered hemoglobin A1c 10. DVT prophylaxis ? On enoxaparin Charges/Coding Visit Charges Inpatient E&M: 73147 Subs Hosp L3
[2024-09-04] MEDS: Ipratropium/Albuterol Sulfate 3 ML AMPUL.NEB INHALATION ×2 (07:37→22:25)
--- NOTE | 2024-09-04 08:10 | ECHOCS_ITS ---
Reason For Study Reason For Study: CHF Procedure This was a 2D Doppler, Color Flow transthoracic echocardiogram. The study was technically difficult. Contrast injection was performed. Patient scanned supine and on Bipap. Exam performed portable in ICU/CCU. Left Ventricle Normal LV size. Mild concentric left ventricular hypertrophy. The left ventricular ejection fraction is 65 %. No regional wall motion abnormalities noted. Right Ventricle Normal RV size. Normal systolic function. Atria The left atrium is mildly enlarged. The right atrium is mildly enlarged. Mitral Valve Normal mitral valve. Tricuspid Valve Normal tricuspid valve. Aortic Valve Trisinus/trileaflet aortic valve. Pulmonic Valve The pulmonic valve is not well visualized. Great Vessels Normal aortic root. Pericardium/Pleural No pericardial effusion. Medication Diluted definity 3ml given slow IV push to enhance endocardial definition. Confirmed with patient there was no chance of . MMode/2D Measurements & Calculations LVIDd: 5.5 cm IVSd: 1.3 cm Ao root diam: 3.0 cm LVIDs: 4.3 cm LVPWd: 1.3 cm RVDd: 4.4 cm FS: 22.9 % LAV(MOD-bp): 65.5 ml LVAd ap4: 46.6 cm2 SV(MOD-sp4): 118.1 ml LAV(MOD-bp) Indexed: 22.0 ml/m2 LVLd ap4: 10.0 cm SI(MOD-sp4): 39.7 ml/m2 LAV(MOD-sp2): 62.5 ml EDV(MOD-sp4): 179.4 ml LAV(MOD-sp4): 66.4 ml EDV(sp4-el): 183.8 ml LVAs ap4: 24.3 cm2 LVLs ap4: 8.2 cm ESV(MOD-sp4): 61.3 ml ESV(sp4-el): 60.8 ml EF(MOD-sp4): 65.9 % EF(sp4-el): 66.9 % SV(sp4-el): 123.0 ml LA A4 area: 22.5 cm2 LA dimension(2D): 4.5 cm RA A4 area: 21.1 cm2 TAPSE: 1.9 cm Time Measurements MV dec time: 0.25 sec Doppler Measurements & Calculations MV E max branden: 113.7 cm/sec Lat Peak E' Branden: 13.9 cm/sec Med Peak E' Branden: 9.7 cm/sec MV A max branden: 65.1 cm/sec E/E' lat: 8.2 E/E' med: 11.7 MV E/A: 1.7 MV V2 max: 115.6 cm/sec MV P1/2t max branden: 115.6 cm/sec Ao V2 max: 195.0 cm/sec MV max P.3 mmHg MV P1/2t: 77.5 msec Ao max P.2 mmHg MV V2 mean: 65.1 cm/sec MV dec slope: 437.2 cm/sec2 MV mean P.0 mmHg MVA(P1/2t): 2.8 cm2 MV V2 VTI: 30.8 cm LV V1 max: 121.8 cm/sec PA V2 max: 121.7 cm/sec LV V1 max P.9 mmHg ECHO/Echo Complete W/ Contrast Interpretation Summary Normal LV size. The left ventricular ejection fraction is 65 %. Mild concentric left ventricular hypertrophy. Contrast injection was performed. The study was technically difficult. Ordering Physician: Evans Carter Referring Physician: Joanne Connors Performed By: Jovan Alfred RCS
--- NOTE | 2024-09-04 08:30 | CON.PCM.CC_ITS ---
Assessment & Plan Assessment/Plan (1) Acute on chronic respiratory failure with hypoxia and hypercapnia: PLAN: Plan RECOMMENDATIONS: 1. Continue empiric antibiotics. Send sputum for culture. 2. Continue to wean supplemental oxygen to maintain saturations at or above 90%. 3. Continue scheduled bronchodilators and steroids. 4. Continue nocturnal PAP therapy per home regimen. 5. Continue appropriate DVT prophylaxis. 6. Encourage incentive spirometer use and mobilize patient as tolerated. IMPRESSIONS: 1. Acute on chronic combined respiratory failure Appears secondary to asthma exacerbation precipitated by right upper lobe pneumonia. The patient, at her baseline, requires 5 L/min of supplemental oxygen. She is currently followed on an outpatient basis by Dr. Bere Holcomb of [facility] pulmonary medicine. At this time, recommend continuing to wean supplemental oxygen as tolerated to maintain saturations at or above 90%. The patient will be continued on empiric antibiotics along with scheduled bronchodilators and steroids. She appears to be responding clinically to therapy. 2. Obstructive sleep apnea/super morbid obesity/depression/heart failure with preserved ejection fraction Complicates care, management, recovery and prognosis. Continue home medications as indicated. Agree with continuing PAP therapy with naps and nightly. Encourage incentive spirometer use and mobilize patient as tolerated. This note was generated with [employer] dictation software. It may contain incorrect words, spelling, and punctuation that were not noted in checking the note before signing. HPI Consult Data Date of Consult: 09/04/24 HPI Narrative Reason for Consultation: Acute on chronic respiratory failure HPI Narrative: The patient is a 34-year-old female, with a history as outlined below, who presented to the emergency department on September 03 with worsening dyspnea of approximately 5 days duration. According to the patient, she is currently followed in the office of Dr. Bere Holcomb of pulmonary medicine at [facility] due to a history of severe persistent asthma, chronic hypoxemic respiratory failure with a baseline oxygen requirement of 5 L/min and obstructive sleep apnea. The patient reported a remote smoking history, currently in remission. She is currently unemployed. In addition to her dyspnea, she does report the presence of wheezing, chest tightness and productive cough. She denied any recent sick contact exposure. She has been compliant with her prescribed maintenance inhalers on an outpatient basis. On presentation to the emergency department, the patient was documented to have a low-grade fever and was notably tachycardic and tachypneic. She was otherwise hemodynamically stable. Laboratory evaluation was notable for a white blood cell count of 15,000. Chemistry profile was notable for a bicarbonate of 35 with normal creatinine. Chest x-ray demonstrated the presence of a right upper lobe infiltrate. Lower extremity Doppler study was negative for DVT. The patient was subsequently placed on antimicrobials, bronchodilators and steroids. She was admitted to the medical intensive care unit for overnight observation. This morning, the patient reported that her breathing quality has improved. Her oxygen requirement has been weaned down to 8 L/min via nasal cannula. [facility] Medical History Pneumonia COPD (chronic obstructive pulmonary disease) Environmental allergies Anemia Depression Asthma Medical History no medical history Home Medications ?Medication ?Instructions ?Recorded ?Last Taken ?Type montelukast 10 mg tablet 10 mg PO DAILY 03/13/1808/07 History albuterol sulfate 90 mcg/actuation 1 - 2 puff inhalati on Q4H PRN 09/03/24 Unknown History aerosol inhaler Wheezing bumetanide 1 mg tablet 1 mg PO DAILY 09/03/2409/02 History bupropion HCl 150 mg 24 hr tablet, 150 mg PO DAILY 09/02/24 History extended release cetirizine 10 mg tablet 10 mg PO DAILY 09/03/2408/07 History cyclosporine 0.05 % eye drops in a 1 drp ophthalmic (e ye) BID 09/03/24 Unknown History dropperette famotidine 20 mg tablet 20 mg PO BID PRN stomach ups et 09/03/24 Unknown History ferrous sulfate 325 mg (65 mg 325 mg PO DAILY 09/03/24 09/02/24 History iron) tablet (FeroSul) fluticasone fur. 200 mcg-umeclid 1 ea inhalation DAILY 09/03/24 09/02/24 History 62.5 mcg-vilant 25 mcg inhalat.powder (Trelegy Ellipta) fluticasone propionate 50 1 spray intranasal BID aller gy 09/03/24 Unknown History mcg/actuation nasal symptoms spray,suspension potassium chloride 20 mEq 20 meq PO DAILY 09/03/24 History tablet,extended release(part/cryst) sertraline 50 mg tablet 25 mg PO DAILY 09/03/24 Unkn own History Allergy/AdvReac Type Severity Reaction Status Date / Time No Known Allergies Allergy Verified 09/03/24 14:28 Family History (Updated 09/03/24 @ 18:[address] Jesse Lobo MD) Other Cancer Family History no significant family his Surgical History Hx of knee surgery Hx of section Surgical History no surgical history Social History Smoking Status: Former smoker ROS ROS Narrative 10 systems were reviewed with pertinent positives as noted in the HPI above. Physical Exam Const alert, oriented x3 and no apparent distress Constitutional Narrative: Super morbidly obese. General Appearance: cooperative HEENT normocephalic, head/scalp atraumatic and moist oral mucous membranes Eyes PERRL, EOMs intact bilaterally and conjunctivae normal Neck supple General: trachea midline Chest inspection of chest normal Resp normal respiratory effort Effort and Inspection: able to speak in complete sentences Auscultation: wheezes and diminished lung sounds Cardio regular rate and regular rhythm GI normal to inspection, nondistended, normoactive bowel sounds Extremity General Extremity: edema; Negative for clubbing Skin no rashes or lesions noted Neuro CN's II-XII intact bilaterally, moves all extremities and no focal motor deficits Psych cooperative and affect normal Lab / Micro Data 09/04/24 03:37 09/04/24 03:37 Labs: Laboratory Results - last 24 hr 09/03/24 14:25: WBC 15.0 H, RBC 5.83 H, Hgb 11.8 L, Hct 44.0, MCV 75.5 L, MCH 20.2 L, MCHC 26.8 L, RDW Std Deviation 49.2 H, RDW Coeff of Micha 18.7 H, Plt Count 276, MPV 10.3, Immature Gran % (Auto) 1.200 H, Neut % (Auto) 80.1 H, Lymph % (Auto) 10.9 L, [place] % (Auto) 6.9, Eos % (Auto) 0.7, Baso % (Auto) 0.2, A bsolute Neuts (auto) 12.0 H, Absolute Lymphs (auto) 1.63, Nucleated RBC % 0.5 09/03/24 14:29: Sodium 142, Potassium 4.4, Chloride 99, Carbon Dioxide 35.6 H, Anion Gap 8, BUN 11, Creatinine 0.72, Estim Creat Clear Calc 220.04, Est GFR (MDRD) Non-Af 114, BUN/Creatinine Ratio 15.3, Glucose 102 H, Lactic Acid < 1.0, Calcium 8.7, Total Bilirubin 0.24, AST 33 H, ALT 29, Alkaline Phosphatase 98, Total Protein 6.1, Albumin 4.0, Globulin 2.1 L, Albumin/Globulin Ratio 1.9 09/04/24 03:37: WBC 14.9 H, RBC 5.29, Hgb 10.7 L, Hct 40.1, MCV 75.8 L, MCH 20.2 L, MCHC 26.7 L, RDW Std Deviation 48.8 H, RDW Coeff of Micha 18.0 H, Plt Count 236, MPV 9.8, Immature Gran % (Auto) 1.100 H, Neut % (Auto) 90.6 H, Lymph % (Auto) 6.4 L, [place] % (Auto) 1.7, Eos % (Auto) 0.0, Baso % (Auto) 0.2, Absolute Neuts (auto) 13.5 H, Absolute Lymphs (auto) 0.95, Nucleated RBC % 0.3, Sodium 141, Potassium 5.1, Chloride 100, Carbon Dioxide 33.9 H, Anion Gap 7, BUN 10, C reatinine 0.63 L, Estim Creat Clear Calc 250.02 H, Est GFR (MDRD) Non-Af 121, BUN/Creatinine Ratio 15.3, Glucose 192 H, Calcium 8.5 Micro: Microbiology 09/03/24 16:02 Mucosa - Nose SARS-CoV-2, Influenza & RSV (PCR) - Final ABG Data ABG results: ABG 09/03/24 09/03/24 15:39 17:23 Specimen Type NAN NAN Sample Site Not entered Not entered O2 % 13.0 70.0 VBG pH 7.30 L 7.33 VBG pO2 30 71 H VBG HCO3 41 H 39 H VBG Total CO2 43 H 42 H VBG O2 Sat (Calc) 47 L 92 H VBG Base Excess 14 H 13 H POC Mix VBG pCO2 Pt Tmp 83.3 H* 74.7 H* O2 Delivery Device Cannula BiPAP Crit Call To/Read Back Yes Yes Blood Gas Notified Whom ug ug Blood Gas Notified Time 15:40:35 17:24:21 Imaging Radiology Impression Venous Doppler Study 09/03/24 15:33 Interpretation Summary Deep veins of the left lower extremity are patent and compressible segmentally. There is no evidence of left lower extremity deep vein thrombosis. The left great saphenous vein appears patent and compressible segmentally. Limited study Ordering Physician: Randy Bailey Referring Physician: Joanne Connors Performed By: Srinath Chahal, RVT Chest X-Ray 09/03/24 17:00 IMPRESSION: 1. Findings compatible with RIGHT upper lobe pneumonia. Follow-up to radiographic resolution. 2. Additional description as above. Reading Location: [id number] Charges/Coding Visit Charges Inpatient E&M: 76585 Init Hosp L3
[2024-09-04] MEDS: Fluticasone 0.05% 1 SPRAY NASAL.SRY NASAL (08:49)
[2024-09-04] MEDS: Loratadine 10 MG Tablet PO (08:50)
[2024-09-04] MEDS: Bumetanide 0.5 MG Tablet 1 MG PO (08:50)
[2024-09-04] MEDS: Montelukast 10 MG Tablet PO (08:50)
[2024-09-04] MEDS: Sertraline 50 MG Tablet 25 MG PO (08:51)
[2024-09-04] MEDS: Enoxaparin 40 MG/0.4 ML Syringe SC ×2 (08:51→22:35)
[2024-09-04] MEDS: Ferrous Sulfate 325 MG Tablet PO (08:52)
[2024-09-04] MEDS: buPROPion (XL) 150 MG TABLET.XL PO (08:52)
[2024-09-04] MEDS: Ceftriaxone 1 GM/50 ML BAG IV (09:09)
[2024-09-04 09:16] LABS: Immature Platelet Fraction 5.2 % (1.0-7.9); Platelet Count 229 K/mm3 (150-450); RET-HE 15.5 pg (30-35); Reticulocyte Count 1.45 % (0.5-1.5)
[2024-09-04] MEDS: Azithromycin 500 MG in 0.9% Normal Saline (250mL Bag) 250 ML 255 MG IV (09:51)
[2024-09-04 09:53] LABS: Ferritin 25 ng/mL (22-378); Iron 14 ug/dL (50-170); Iron Binding Capacity,Total 428 ug/dL (250-450); Iron Binding Capacity,Unsat 414 ug/dL (228-428); Vitamin B12 686 pg/mL (180-914)
[2024-09-04] MEDS: Sodium Ferric Gluconat/Sucrose 250 MG in 0.9% Normal Saline (250mL Bag) 250 ML 135 MG IV (13:48)
[2024-09-04] MEDS: Acetaminophen 325 MG Tablet 650 MG PO (14:01)
--- NOTE | 2024-09-04 14:29 | CASEMGMT ---
[facility] Assessment Face to Face with patient for initial transition planning/care coordination assessment. RN CM introduced self and role at [facility], pt voices understanding. Pt is A&Ox4 and is resting comfortably in bed and is calm. Care providers, pharmacy, and demographics verified. Admitting dx: RF with Pneumonia and Asthma LACE Strata: 2 PCP: Joanne Connors Specialists: Dr Bere Holcomb ([facility]) Preferred Pharmacy: [facility] Insurance: [facility], [facility] Prescription Benefit: Yes LNOK: Sander Schreiber (Sister) Living Arrangements: Pt lives with her 2 children (Ages 15 & 13) in a ground level apartment with 6 steps to enter ADLs/IADLs: Pt states that she is entirely independent and denies concerns Transportation: Self. Sister @ the time of DC. DME: Home oxygen supplied through [employer]. TC to Tania and Burt states that the pt's most recent order is for 4L continuous and bleed in through BiPAP @ [facility]. This RN CM inquired if they have a more recent order for 5L continuos as this is what the pt states that she wears at home. Tania denies and states that the most recent order states 4L continuous. Pt states that she has a concentrator, portable tanks (Sister will bring in @ DC), pulse ox, nebulizer, and inhaler. HHC/SNF: Denies hx or needs Pt?s goal: Home Plan: Home with pt family, follow for updated O2 Rx as the pt is currently requiring a greater amount compared to her home order. Current 6-Click score is 22. No therapy is ordered. Pt states that she feels safe returning home once she is medically ready and denies the need for OP Tx or any other DC needs. CM to follow. Sergio Villalobos RN, CM
[2024-09-05] VITALS (8 sets, daily range): BP systolic 126–131; BP diastolic 66–86; PULSE 57–84; RESP 14–21; TEMP 36–37.1; O2SAT 95–99; BMI 60.2
[2024-09-05] MEDS: 0.9% Saline Lock 10 ML Syringe IV ×2 (05:37→22:21)
[2024-09-05 06:43] LABS: Absolute Lymphocyte Count 1.49 X10^3/uL (0.83-4.51); Absolute Neutrophil Count 14.6 X10^3/uL (2.0-7.7); Basophil# 0.04 X10^3/uL; Basophil% 0.2 % (0-1); Hematocrit 40.2 % (37-47); Hemoglobin 10.7 g/dL (12.0-15.0); Lymphocyte # 1.49 X10^3/ul (0.83-4.51); Lymphocyte % 8.7 % (19-41); Mean Corp Hgb Conc 26.6 g/dL (32-36); Mean Corpuscular Hgb 20.2 pg (27.0-32.0); Mean Platelet Vol. 9.4 fl (6.2-12.0); Monocyte# 0.65 X10^3/uL; Monocyte% 3.8 % (0-10); NRBC Flagged by Analyzer 0.4 % (0-5); Neutrophil % 85.8 % (47-70); Platelet Count 273 K/mm3 (150-450); RBC Distribution Width CV 17.8 % (11.6-14.6); RBC Distribution Width SD 48.5 fl (35.1-43.9); Red Blood Count 5.29 M/mm3 (4.2-5.4)
[2024-09-05 07:08] LABS: Anion Gap 7 (5-15); BUN 10 mg/dL (4-19); BUN/Creat Ratio 17.2 RATIO (10-20); Calcium,Total 8.7 mg/dL (7.6-11.0); Carbon Dioxide 35.3 mmol/L (21.0-32.0); Chloride 99 mmol/L (98-108); Creatinine, Serum 0.57 mg/dL (0.70-1.20); EST Glomerular Filtration Rate 124 (>60); Estimated Creatinine Clearance 278.58 ml/min (50-250); Glucose 151 mg/dL (70-99); Magnesium 2.4 mg/dL (1.5-2.2); Phosphorus 3.1 mg/dL (2.7-4.5); Potassium 4.8 mmol/L (3.3-5.1); Sodium Level 141 mmol/L (133-145)
[2024-09-05] MEDS: Ipratropium/Albuterol Sulfate 3 ML AMPUL.NEB INHALATION (07:15)
[2024-09-05] MEDS: Enoxaparin 40 MG/0.4 ML Syringe SC ×2 (08:20→22:21)
[2024-09-05] MEDS: buPROPion (XL) 150 MG TABLET.XL PO (08:21)
[2024-09-05] MEDS: Montelukast 10 MG Tablet PO (08:21)
[2024-09-05] MEDS: Sertraline 50 MG Tablet 25 MG PO (08:21)
[2024-09-05] MEDS: Loratadine 10 MG Tablet PO (08:22)
[2024-09-05] MEDS: Bumetanide 0.5 MG Tablet 1 MG PO (08:22)
[2024-09-05 08:23] LABS: Cholesterol 157 mg/dL (<=200); High Density Lipoprotein 47 mg/dL; Low Density Lipoprotein Calc. 96 mg/dL; Pro- Brain NATRIURETIC PEPTIDE 195 pg/mL (<=450); Triglycerides 73 mg/dL; Very Low Density Lipoprotein 15 mg/dL (5-40); cholesterol:hdl ratio screen 3.37
[2024-09-05] MEDS: Ceftriaxone 1 GM/50 ML BAG IV (08:26)
--- NOTE | 2024-09-05 08:28 | PCM.PN.HOSP ---
Reason for Visit Reason for Visit: Diagnoses Pneumonia, unspecified organism (09/03/24) Acute and chronic respiratory failure with hypoxia (09/03/24) Acute and chronic respiratory failure with hypercapnia (09/03/24) Subjective Subjective Patient was weaned off noninvasive ventilation BiPAP and subsequently transferred to the progressive care unit. Objective Data Objective Data Vital Signs: Vital Signs Temp Pulse Resp BP Pulse Ox O2 Del Method O2 Flow Rate 98.1 F 84 16 131/86 H 95 Nasal Cannula 5 09/05/24 08:18 09/05/24 08:18 09/05/24 08:18 09/05/24 08:18 09/05/24 08:18 09/05/24 08:18 09/05/24 08:18 FiO2 40 09/05/24 07:16 Oxygen Flow Rate (L/min) 5 Oxygen Delivery Method Nasal Cannula Weight: 201.7 kg Body Mass Index (BMI) 60.2 Intake & Output: Intake and Output for Last 24 Hours 09/03/24 09/04/24 09/05/24 23:59 23:59 23:59 Intake Total 425 / 425 575 / 575 Output Total 1700 / 1700 Balance -1125 / -1125 Lab / Micro Data 09/05/24 06:32 09/05/24 06:32 Labs: Laboratory Results - last 24 hr 09/04/24 08:45: Immature Plt Fraction 5.2, Retic Count 1.45, Immature Retic Fraction 12.10, Retic Hgb Equivalent 15.5 L, Iron 14 L, TIBC 428, Iron Saturation 3.0 L, Unsaturated IBC 414, Ferritin 25, Vitamin B12 686 09/05/24 06:32: WBC 17.0 H, RBC 5.29, Hgb 10.7 L, Hct 40.2, MCV 76.0 L, MCH 20.2 L, MCHC 26.6 L, RDW Std Deviation 48.5 H, RDW Coeff of Micha 17.8 H, Plt Count 273, MPV 9.4, Immature Gran % (Auto) 1.500 H, Neut % (Auto) 85.8 H, Lymph % (Auto) 8.7 L, [place] % (Auto) 3.8, Eos % (Auto) 0.0, Baso % (Auto) 0.2, Absolute Neuts (auto) 14.6 H, Absolute Lymphs (auto) 1.49, Nucleated RBC % 0.4, Sodium 141, Potassium 4.8, Chloride 99, Carbon Dioxide 35.3 H, Anion Gap 7, BUN 10, Creatinine 0.57 L, Estim Creat Clear Calc 278.58 H, Est GFR (MDRD) Non-Af 124, BUN/Creatinine Ratio 17.2, Glucose 151 H, Calcium 8.7, Phosphorus 3.1, Magnesium 2.4 H, NT pro BNP II 195, Triglycerides 73, Cholesterol 157, LDL Cholesterol, Calc 96, VLDL Cholesterol 15, HDL Cholesterol 47, Cholesterol/HDL Ratio 3.37 Micro: Microbiology 09/04/24 10:48 Mucosa - Nasopharyngeal Respiratory Panel (PCR) - Final 09/03/24 16:02 Mucosa - Nose SARS-CoV-2, Influenza & RSV (PCR) - Final Radiography Diagnostic Testing: Radiology Impression Echocardiogram 09/04/24 08:10 Interpretation Summary Normal LV size. The left ventricular ejection fraction is 65 %. Mild concentric left ventricular hypertrophy. Contrast injection was performed. The study was technically difficult. Ordering Physician: Evans Carter Referring Physician: Joanne Connors Performed By: Jovan Alfred RCS Physical Exam Narrative GENERAL: Cooperative HEENT: Atraumatic; normocephalic EYES; Anicteric, Normal Conjunctiva NECK; supple, normal thyroid, RESPIRATORY: Diminished to auscultation CARDIOVASCULAR: Regular S1 S2, GI: soft, normoactive bowel sounds, : No Renal angle tenderness; EXTREMITIES: No edema, no clubbing, MUSCULOSKELETAL: no muscle wasting NEURO: Awake; no lateralizing signs. SKIN: Extensive vitiligo PSYCH; Flat affect Assessment & Plan Assessment/Plan (1) Right upper lobe pneumonia: PLAN: Plan Patient is a 34-year-old lady with past medical history significant for chronic congestive heart failure, morbid obesity with BMI of 59.6 who presented with shortness of breath and hypoxia. Imaging studies obtained demonstrated right upper lobe pneumonia. An assessment of acute on chronic hypoxic and hypercapnic respiratory failure made placed on BiPAP admitted to the intensive care unit for further management 1. Acute on chronic hypoxic and hypercapnic respiratory failure ? Due to combination of pneumonia, asthma exacerbation as well as suspected CHF exacerbation. Patient was placed on noninvasive ventilation with BiPAP with oxygen titrated to keep saturation greater than 90 ? 09/05/2024 Patient was weaned off noninvasive ventilation BiPAP and subsequently transferred to the progressive care unit. 2. Pneumonia - Suspected to be secondary to streptococcal pneumonia, Blood and sputum cultures sent. Patient placed on Rocephin and Zithromax and placed on oxygen titrated to keep Pulse Ox greater than 90. Patient presented with acute hypoxic and hypercapnic respiratory failure patient was placed on noninvasive ventilation BiPAP as discussed above ? 09/05/2024; patient WBC count remains elevated patient is on Solu-Medrol discontinued started patient on prednisone 3. Asthma with acute exacerbation ? In addition to above management patient was placed on systemic steroids and bronchodilator treatments 4. Class III obesity with BMI of 59.6 ? Complicating care weight loss advised 5. Acute on chronic congestive heart failure with preserved ejection for ? Echo obtained on 01/16/2018 demonstrated 60%. Patient placed on diuretic therapy in addition to strict input and output, fluid restriction Daily I's and O's and repeat echo ordered for EF assessment ? 09/06/2019 five 2D echo obtained 09/06/2019 did show Normal LV size. The left ventricular ejection fraction is 65 %. Mild concentric left ventricular hypertrophy. 6. Depression with anxiety ? Patient is on sertraline continue 7. Allergic rhinitis ? Patient is on montelukast did continue 8. Anemia ? Secondary to chronic disorder Red cell indices demonstrated microcytic anemia with MCV of 75.8. Monitoring H&H and transfuse if patient becomes symptomatic or hemoglobin falls below 7. Also ordered iron studies 9. Hyperglycemia ? Suspected to be secondary to patient receiving systemic steroid however ordered hemoglobin A1c 10. DVT prophylaxis ? On enoxaparin Charges/Coding Visit Charges Inpatient E&M: 67057 Subs Hosp L2
--- NOTE | 2024-09-05 08:51 | PCM.PN.INT ---
Assessment & Plan Assessment/Plan (1) Acute on chronic respiratory failure with hypoxia and hypercapnia: PLAN: Plan RECOMMENDATIONS: 1. Continue empiric antibiotics. 2. Continue to wean supplemental oxygen to maintain saturations at or above 90%. 3. Continue scheduled bronchodilators and steroids. 4. Continue nocturnal PAP therapy per home regimen. 5. Continue appropriate DVT prophylaxis. 6. Encourage incentive spirometer use and mobilize patient as tolerated. 7. Likely stable for discharge tomorrow. At discharge, recommend transitioning to Levaquin to complete 7 days of therapy along with a 5-day burst of prednisone 40 mg daily. 8. Recommend outpatient follow-up with primary senior production manager after discharge. 9. Will sign off at this time. Please call with any additional questions. IMPRESSIONS: 1. Acute on chronic combined respiratory failure Appears secondary to asthma exacerbation precipitated by right upper lobe pneumonia. The patient, at her baseline, requires 5 L/min of supplemental oxygen. She is currently followed on an outpatient basis by Dr. Bere Holcomb of [facility] pulmonary medicine. At this time, recommend continuing to wean supplemental oxygen as tolerated to maintain saturations at or above 90%. The patient will be continued on empiric antibiotics along with scheduled bronchodilators and steroids. She appears to be responding clinically to therapy. At discharge, the patient could be sent home to complete a treatment course of Levaquin along with 5 additional days of prednisone 40 mg daily. She should ultimately follow-up with her primary senior production manager after discharge home. 2. Obstructive sleep apnea/super morbid obesity/depression/heart failure with preserved ejection fraction Complicates care, management, recovery and prognosis. Continue home medications as indicated. Agree with continuing PAP therapy with naps and nightly. Encourage incentive spirometer use and mobilize patient as tolerated. This note was generated with [employer] dictation software. It may contain incorrect words, spelling, and punctuation that were not noted in checking the note before signing. Subjective Subjective The patient was seen and examined at the bedside this morning. Events from the last 24 hours have been reviewed. The patient is currently afebrile, hemodynamically stable and maintaining appropriate oxygen saturations on 5 L/min via nasal cannula, which is her baseline requirement. White blood cell count is elevated at 17,000. Hemoglobin and platelet count are stable. Creatinine is within normal limits. The patient does feel somewhat better than yesterday. Objective Data Objective Data The patient's most recent lab work, culture data and imaging studies have all been personally reviewed. Surface echocardiogram demonstrated mild concentric LVH with an ejection fraction of 65%. Lower extremity Doppler study was negative for DVT. Respiratory viral panel was negative. COVID, influenza and RSV PCR's were negative. Blood cultures are pending. Vital Signs: Vital Signs Temp Pulse Resp BP Pulse Ox O2 Del Method O2 Flow Rate 98.1 F 84 16 131/86 H 95 Nasal Cannula 5 09/05/24 08:18 09/05/24 08:18 09/05/24 08:18 09/05/24 08:18 09/05/24 08:18 09/05/24 08:18 09/05/24 08:18 FiO2 40 09/05/24 07:16 Oxygen Flow Rate (L/min) 5 Oxygen Delivery Method Nasal Cannula Weight: 444 lb 10.758 oz Body Mass Index (BMI) 60.2 Intake & Output: Intake and Output for Last 24 Hours 09/03/24 09/04/24 09/05/24 23:59 23:59 23:59 Intake Total 425 / 425 575 / 575 Output Total 1700 / 1700 Balance -1125 / -1125 Lab / Micro Data Attestation: I reviewed the patient's lab results. 09/05/24 06:32 09/05/24 06:32 Labs: Laboratory Results - last 24 hr 09/04/24 08:45: Immature Plt Fraction 5.2, Retic Count 1.45, Immature Retic Fraction 12.10, Retic Hgb Equivalent 15.5 L, Iron 14 L, TIBC 428, Iron Saturation 3.0 L, Unsaturated IBC 414, Ferritin 25, Vitamin B12 686 09/05/24 06:32: WBC 17.0 H, RBC 5.29, Hgb 10.7 L, Hct 40.2, MCV 76.0 L, MCH 20.2 L, MCHC 26.6 L, RDW Std Deviation 48.5 H, RDW Coeff of Micha 17.8 H, Plt Count 273, MPV 9.4, Immature Gran % (Auto) 1.500 H, Neut % (Auto) 85.8 H, Lymph % (Auto) 8.7 L, [place] % (Auto) 3.8, Eos % (Auto) 0.0, Baso % (Auto) 0.2, Absolute Neuts (auto) 14.6 H, Absolute Lymphs (auto) 1.49, Nucleated RBC % 0.4, Sodium 141, Potassium 4.8, Chloride 99, Carbon Dioxide 35.3 H, Anion Gap 7, BUN 10, Creatinine 0.57 L, Estim Creat Clear Calc 278.58 H, Est GFR (MDRD) Non-Af 124, BUN/Creatinine Ratio 17.2, Glucose 151 H, Calcium 8.7, Phosphorus 3.1, Magnesium 2.4 H, NT pro BNP II 195, Triglycerides 73, Cholesterol 157, LDL Cholesterol, Calc 96, VLDL Cholesterol 15, HDL Cholesterol 47, Cholesterol/HDL Ratio 3.37 Micro: Microbiology 09/04/24 10:48 Mucosa - Nasopharyngeal Respiratory Panel (PCR) - Final 09/03/24 16:02 Mucosa - Nose SARS-CoV-2, Influenza & RSV (PCR) - Final Radiography Diagnostic Testing: Radiology Impression Echocardiogram 09/04/24 08:10 Interpretation Summary Normal LV size. The left ventricular ejection fraction is 65 %. Mild concentric left ventricular hypertrophy. Contrast injection was performed. The study was technically difficult. Ordering Physician: Evans Carter Referring Physician: Joanne Connors Performed By: Jovan Alfred RCS Physical Exam Const alert, oriented x3 and no apparent distress Constitutional Narrative: Super morbidly obese. General Appearance: cooperative HEENT normocephalic, head/scalp atraumatic and moist oral mucous membranes Eyes PERRL, EOMs intact bilaterally and conjunctivae normal Neck supple General: trachea midline Chest inspection of chest normal Resp normal respiratory effort Effort and Inspection: able to speak in complete sentences Auscultation: wheezes and diminished lung sounds Cardio regular rate and regular rhythm GI normal to inspection, nondistended, normoactive bowel sounds Extremity General Extremity: edema; Negative for clubbing Skin no rashes or lesions noted Neuro CN's II-XII intact bilaterally, moves all extremities and no focal motor deficits Psych cooperative and affect normal Charges/Coding Visit Charges Inpatient E&M: 81293 Subs Hosp L2
[2024-09-05] MEDS: Azithromycin 500 MG in 0.9% Normal Saline (250mL Bag) 250 ML 255 MG IV (09:31)
[2024-09-05] MEDS: predniSONE 20 MG Tablet 40 MG PO (11:34)
[2024-09-05] MEDS: Ferrous Sulfate 325 MG Tablet PO (11:34)
--- NOTE | 2024-09-05 15:15 | CPS ---
patient refused treatment, states she doesnt want another treatment until she goes to bed around [id number]
[2024-09-06] VITALS (8 sets, daily range): BP systolic 122–130; BP diastolic 67–84; PULSE 62–86; RESP 14–20; TEMP 36.2–36.7; O2SAT 84–99; BMI 60.0
[2024-09-06] MEDS: Ipratropium/Albuterol Sulfate 3 ML AMPUL.NEB INHALATION ×2 (01:31→07:05)
[2024-09-06 05:19] LABS: Absolute Lymphocyte Count 2.13 X10^3/uL (0.83-4.51); Absolute Neutrophil Count 8.1 X10^3/uL (2.0-7.7); Basophil# 0.02 X10^3/uL; Basophil% 0.2 % (0-1); Eosinophil# 0.01 X10^3/uL; Eosinophils% 0.1 % (0-5); Hematocrit 39.2 % (37-47); Hemoglobin 10.4 g/dL (12.0-15.0); Lymphocyte # 2.13 X10^3/ul (0.83-4.51); Lymphocyte % 18.9 % (19-41); Mean Corp Hgb Conc 26.5 g/dL (32-36); Mean Corpuscular Hgb 20.3 pg (27.0-32.0); Mean Corpuscular Volume 76.4 fL (81-99); Mean Platelet Vol. 9.9 fl (6.2-12.0); Monocyte# 0.85 X10^3/uL; Monocyte% 7.5 % (0-10); NRBC Flagged by Analyzer 0.2 % (0-5); Neutrophil # 8.13 X10^3/uL (2.7-7.7); Platelet Count 249 K/mm3 (150-450); RBC Distribution Width SD 49.1 fl (35.1-43.9); Red Blood Count 5.13 M/mm3 (4.2-5.4); White Blood Count 11.3 K/mm3 (4.4-11.0)
[2024-09-06 06:42] LABS: Anion Gap 10 (5-15); BUN 13 mg/dL (4-19); BUN/Creat Ratio 24.7 RATIO (10-20); Calcium,Total 8.5 mg/dL (7.6-11.0); Carbon Dioxide 34.5 mmol/L (21.0-32.0); Chloride 98 mmol/L (98-108); Creatinine, Serum 0.51 mg/dL (0.70-1.20); EST Glomerular Filtration Rate 127 (>60); Estimated Creatinine Clearance 310.55 ml/min (50-250); Glucose 128 mg/dL (70-99); Potassium 4.2 mmol/L (3.3-5.1); Sodium Level 142 mmol/L (133-145)
--- NOTE | 2024-09-06 09:23 | PCM.DC.SUM ---
Providers Date of Admission: 09/03/24 Primary Care Physician: OMAR Jones Consultations 09/03/24 19:11 Consult: Pizza Delivery Driver / Pulmonary Medicine Routine Consulting Provider: Intensivists/Pulmonary Med Reason for Consult: Resp failure EMERGENT Consult: No MD Notified: Yes Date Notified: 09/04/24 Time Notified: 04:59 Method of Notification: Text Reason For Visit: RESP FAILURE WITH PNEUMONIA AND ASTHMA Diagnosis Discharge Diagnosis (1) Right upper lobe pneumonia: Status: Acute Code(s): J18.9 - Pneumonia, unspecified organism Plan Patient is a 34-year-old lady with past medical history significant for chronic congestive heart failure, morbid obesity with BMI of 59.6 who presented with shortness of breath and hypoxia. Imaging studies obtained demonstrated right upper lobe pneumonia. An assessment of acute on chronic hypoxic and hypercapnic respiratory failure made placed on BiPAP admitted to the intensive care unit for further management 1. Acute on chronic hypoxic and hypercapnic respiratory failure ? Due to combination of pneumonia, asthma exacerbation as well as suspected CHF exacerbation. Patient was placed on noninvasive ventilation with BiPAP with oxygen titrated to keep saturation greater than 90 ? 09/05/2024 Patient was weaned off noninvasive ventilation BiPAP and subsequently transferred to the progressive care unit. 2. Pneumonia - Suspected to be secondary to streptococcal pneumonia, Blood and sputum cultures sent. Patient placed on Rocephin and Zithromax and placed on oxygen titrated to keep Pulse Ox greater than 90. Patient presented with acute hypoxic and hypercapnic respiratory failure patient was placed on noninvasive ventilation BiPAP as discussed above ? 09/05/2024; patient WBC count remains elevated patient is on Solu-Medrol discontinued started patient on prednisone 3. Asthma with acute exacerbation ? In addition to above management patient was placed on systemic steroids and bronchodilator treatments 4. Class III obesity with BMI of 59.6 ? Complicating care weight loss advised 5. Acute on chronic congestive heart failure with preserved ejection for ? Echo obtained on 01/16/2018 demonstrated 60%. Patient placed on diuretic therapy in addition to strict input and output, fluid restriction Daily I's and O's and repeat echo ordered for EF assessment ? 09/06/2019 five 2D echo obtained 09/06/2019 did show Normal LV size. The left ventricular ejection fraction is 65 %. Mild concentric left ventricular hypertrophy. 6. Depression with anxiety ? Patient is on sertraline continue 7. Allergic rhinitis ? Patient is on montelukast did continue 8. Anemia ? Secondary to chronic disorder Red cell indices demonstrated microcytic anemia with MCV of 75.8. Monitoring H&H and transfuse if patient becomes symptomatic or hemoglobin falls below 7. Also ordered iron studies 9. Hyperglycemia ? Suspected to be secondary to patient receiving systemic steroid however ordered hemoglobin A1c 10. DVT prophylaxis ? On enoxaparin Medications at Discharge Home Medications montelukast 10 mg tablet 10 mg PO DAILY 03/13/18 albuterol sulfate 90 mcg/actuation aerosol inhaler 1 - 2 puff inhalation Q4H PRN Wheezing 09/03/24 bumetanide 1 mg tablet 1 mg PO DAILY 09/03/24 bupropion HCl 150 mg 24 hr tablet, extended release 150 mg PO DAILY 09/03/24 cetirizine 10 mg tablet 10 mg PO DAILY 09/03/24 cyclosporine 0.05 % eye drops in a dropperette 1 drp ophthalmic (eye) BID 09/03/24 famotidine 20 mg tablet 20 mg PO BID PRN stomach upset 09/03/24 ferrous sulfate 325 mg (65 mg iron) tablet (FeroSul) 325 mg PO DAILY 09/03/24 fluticasone fur. 200 mcg-umeclid 62.5 mcg-vilant 25 mcg inhalat.powder (Trelegy Ellipta) 1 ea inhalation DAILY 09/03/24 fluticasone propionate 50 mcg/actuation nasal spray,suspension 1 spray intranasal BID allergy symptoms 09/03/24 potassium chloride 20 mEq tablet,extended release(part/cryst) 20 meq PO DAILY 09/03/24 sertraline 50 mg tablet 25 mg PO DAILY 09/03/24 azithromycin 500 mg tablet 500 mg PO DAILY 5 days #5 tabs 09/06/24 cefdinir 300 mg capsule 300 mg PO BID 7 days #14 caps 09/06/24 guaifenesin 600 mg tablet, extended release 12 hr (Mucinex) 1,200 mg (2 x 600 mg) PO BID #20 tabs 09/06/24 prednisone 20 mg tablet 40 mg (2 x 20 mg) PO BREAKFAST 7 days #14 tabs 09/06/24 Hospital Course Summary of Care Provided Minutes Spent on Discharge: 32 Physical Exam Narrative GENERAL: Cooperative HEENT: Atraumatic; normocephalic EYES; Anicteric, Normal Conjunctiva NECK; supple, normal thyroid, RESPIRATORY: Diminished to auscultation CARDIOVASCULAR: Regular S1 S2, GI: soft, normoactive bowel sounds, : No Renal angle tenderness; EXTREMITIES: No edema, no clubbing, MUSCULOSKELETAL: no muscle wasting NEURO: Awake; no lateralizing signs. SKIN: Extensive vitiligo PSYCH; Flat affect Weight / BMI Weight Weight: 200.9 kg Body Mass Index (BMI) 60.0 ABG / Lab / Microbiology Data 09/06/24 04:08 09/06/24 04:08 Laboratory: Laboratory Results - last 24 hr 09/05/24 06:32: Hemoglobin A1c 6.0 H 09/06/24 04:08: WBC 11.3 H, RBC 5.13, Hgb 10.4 L, Hct 39.2, MCV 76.4 L, MCH 20.3 L, MCHC 26.5 L, RDW Std Deviation 49.1 H, RDW Coeff of Micha 18.0 H, Plt Count 249, MPV 9.9, Immature Gran % (Auto) 1.300 H, Neut % (Auto) 72.0 H, Lymph % (Auto) 18.9 L, Sully % (Auto) 7.5, Eos % (Auto) 0.1, Baso % (Auto) 0.2, Absolute Neuts (auto) 8.1 H, Absolute Lymphs (auto) 2.13, Nucleated RBC % 0.2, Sodium 142, Potassium 4.2, Chloride 98, Carbon Dioxide 34.5 H, Anion Gap 10, BUN 13, Creatinine 0.51 L, Estim Creat Clear Calc 310.55 H, Est GFR (MDRD) Non-Af 127, BUN/Creatinine Ratio 24.7 H, Glucose 128 H, Calcium 8.5 Microbiology: Microbiology 09/05/24 09:35 Sputum, Expectorated/Coughed Gram Stain - Final 09/03/24 14:29 Blood Culture (Wb) - Anticubital Right Blood Culture - Preliminary No growth in 48 hours. 09/03/24 14:25 Blood Culture (Wb) - Anticubital Left Blood Culture - Preliminary No growth in 48 hours. 09/04/24 10:48 Mucosa - Nasopharyngeal Respiratory Panel (PCR) - Final 09/03/24 16:02 Mucosa - Nose SARS-CoV-2, Influenza & RSV (PCR) - Final D/C Instructions Discharge Diet: No restrictions Discharge Activity: Return to Normal Activity Call your doctor if you observe: Fever of 101 or Higher, Shortness of breath, Fainting spells and Chest pain DC O2, CPAP, BIPAP Needs Home O2 Discharge instructions: Yes Type of respiratory needs?: Oxygen Oxygen frequency: Continuous Continuous oxygen liters per minute: 4 DC home with Oxygen: Yes Home O2 MD Review: I have reviewed the oxygen testing, and the patient qualifies for home oxygen equipment and portability. The patient is mobile in the home and the community. Meaningful Use Info Meaningful Use Meaningful Use Diagnoses (Choose all that apply): None applicable Ischemic Stroke Statin Dosing Therapy Reference: STATIN DOSE THERAPY REFERENCE: * Patients > 75 years receive moderate or high dose statin therapy. * Patients 75 years or YOUNGER should receive HIGH intensity statin dose unless contraindicated. You will be required to document reason for non-treatment if statin daily dose does not meet guidelines. HIGH DOSE STATIN THERAPY DAILY Atorvastatin > than or = to 40 mg Rosuvastatin > than or = to 20 mg Amlodipine + Atorvastatin > than or = to 2.5/40 mg Ezetimibe + Simvastatin 10/80 mg Simvastatin 80mg Discharge Plan Admission Admit Date/Time: 09/03/24 17:36 Attending Provider: Evans Carter Primary Care Provider: Joanne Connors Consulting Providers: Jesse Lobo Discharge Orders/Prescriptions Prescriptions: New prednisone 20 mg Tablet 40 mg PO BREAKFAST 7 Days Qty: 14 0RF cefdinir 300 mg capsule 300 mg PO BID 7 Days Qty: 14 0RF azithromycin 500 mg tablet 500 mg PO DAILY 5 Days Qty: 5 0RF guaifenesin [Mucinex] 600 mg tablet extended release 12hr 1,200 mg PO BID Qty: 20 0RF Continued montelukast 10 MG tablet 10 mg PO DAILY cetirizine 10 mg tablet 10 mg PO DAILY famotidine 20 mg tablet 20 mg PO BID PRN (Reason: stomach upset) bumetanide 1 mg tablet 1 mg PO DAILY cyclosporine 0.05 % dropperette 1 drp ophthalmic (eye) BID Patient Comments: HAS NOT BEEN TAKING, THINKS SHE IS ALLERGIC bupropion HCl 150 mg tablet extended release 24 hr 150 mg PO DAILY potassium chloride 20 mEq tablet,ER particles/crystals 20 meq PO DAILY ferrous sulfate [FeroSul] 325 mg (65 mg iron) tablet 325 mg PO DAILY fluticasone propionate 50 mcg/actuation spray,suspension 1 spray INTRANASAL BID Patient Comments: PT TAKES NEEDED sertraline 50 mg tablet 25 mg PO DAILY Patient Comments: PT STATES I TAKES THIS SOMETIMES Trelegy Ellipta 200-62.5-25 mcg blister with device 1 ea INHALATION DAILY albuterol sulfate 1 INHALER inhaler 1 - 2 puff INHALATION Q4H PRN (Reason: Wheezing) Referrals / Follow Up: Joanne Connors, SIGNAL TOWER DIRECTOR-C [Primary Care Provider] - Within 2 Weeks Disposition Disposition (needs filled in before D/C Order can be placed): Home, Self Care Charges/Coding Visit Charges Inpatient E&M: 23982 Disch Hosp >30min
[2024-09-06] MEDS: Ferrous Sulfate 325 MG Tablet PO (10:23)
[2024-09-06] MEDS: Sertraline 50 MG Tablet 25 MG PO (10:23)
[2024-09-06] MEDS: buPROPion (XL) 150 MG TABLET.XL PO (10:24)
[2024-09-06] MEDS: Montelukast 10 MG Tablet PO (10:24)
[2024-09-06] MEDS: Loratadine 10 MG Tablet PO (10:24)
[2024-09-06] MEDS: predniSONE 20 MG Tablet 40 MG PO (10:24)
[2024-09-06] MEDS: Bumetanide 0.5 MG Tablet 1 MG PO (10:24)
[2024-09-06] MEDS: Ceftriaxone 1 GM/50 ML BAG IV (10:28)
[2024-09-06] MEDS: Azithromycin 500 MG in 0.9% Normal Saline (250mL Bag) 250 ML 255 MG IV (11:34)
--- NOTE | 2024-09-06 14:33 | PHA.DC_ITS ---
Pharmacy [place] Med Reconciliation Pharmacy Service has performed discharge medication reconciliation for this patient. The patient's discharge medication list was reviewed for discrepancies and discrepancies were resolved. Medications at Discharge Home Medications montelukast 10 mg tablet 10 mg PO DAILY allergies 03/13/18 albuterol sulfate 90 mcg/actuation aerosol inhaler 1 - 2 puff inhalation Q4H PRN Wheezing 09/03/24 bumetanide 1 mg tablet 1 mg PO DAILY edema 09/03/24 bupropion HCl 150 mg 24 hr tablet, extended release 150 mg PO DAILY mood 09/03/24 cetirizine 10 mg tablet 10 mg PO DAILY allergies 09/03/24 cyclosporine 0.05 % eye drops in a dropperette 1 drp ophthalmic (eye) BID 08/07 01/30 famotidine 20 mg tablet 20 mg PO BID PRN stomach upset 09/03/24 ferrous sulfate 325 mg (65 mg iron) tablet (FeroSul) 325 mg PO DAILY iron supplement 09/03/24 fluticasone fur. 200 mcg-umeclid 62.5 mcg-vilant 25 mcg inhalat.powder (Trelegy Ellipta) 1 ea inhalation DAILY breathing 09/03/24 fluticasone propionate 50 mcg/actuation nasal spray,suspension 1 spray intranasal BID allergy symptoms 09/03/24 potassium chloride 20 mEq tablet,extended release(part/cryst) 20 meq PO DAILY supplement 09/03/24 sertraline 50 mg tablet 25 mg PO DAILY mood 09/03/24 azithromycin 500 mg tablet 500 mg PO DAILY 5 days #5 tabs 09/06/24 cefdinir 300 mg capsule 300 mg PO BID 7 days #14 caps 09/06/24 guaifenesin 600 mg tablet, extended release 12 hr (Mucinex) 1,200 mg (2 x 600 mg) PO BID #20 tabs 09/06/24 prednisone 20 mg tablet 40 mg (2 x 20 mg) PO BREAKFAST 7 days #14 tabs 09/06/24
== END 2024-09-06 17:15 | disposition home or self-care (01) | DRG 189 ==
LOC: ED 17:15 → ICU 17:51 → PCU 09-04 15:15
PROVIDERS: Admitting Provider Family Medicine; Emergency Provider Emergency Medicine; PCP Nurse Practitioner Family; Visit Provider Internal Medicine
DX: J96.21 Acute and chronic respiratory failure with hypoxia (principal); I50.33 Acute on chronic diastolic (congestive) heart failure; J15.4 Pneumonia due to other streptococci; Z68.44 Body mass index [BMI] 60.0-69.9, adult; J44.0 Chronic obstructive pulmonary disease with (acute) lower respiratory infection; D50.9 Iron deficiency anemia, unspecified; F32.A Depression, unspecified; G47.33 Obstructive sleep apnea (adult) (pediatric); J30.9 Allergic rhinitis, unspecified; J96.22 Acute and chronic respiratory failure with hypercapnia; F41.9 Anxiety disorder, unspecified; E66.813 Obesity, class 3; R73.9 Hyperglycemia, unspecified; Z79.51 Long term (current) use of inhaled steroids; Z79.899 Other long term (current) drug therapy; Z87.891 Personal history of nicotine dependence
CPT/HCPCS: 36415; 71045; 80048; 80053; 80061; 82607; 82728; 82803; 83036; 83540; 83550; 83605; 83735; 83880; 84100; 85025; 85045; 87040; 87070; 87077; 87205; 87631; 87633; 93005; 93306; 93971; 94002; 94003; 94640; 94762; 99285; 99406; Q9957; A4216; C8929; J0696; J2916

== ENCOUNTER 2024-11-13 18:43 | Emergency (ER) | payer MEDICARE, MEDICAID, SELFPAY ==
[2024-11-13 18:44] VITALS: BP 142/86; PULSE 83; RESP 17; TEMP 36.5; O2SAT 93
--- NOTE | 2024-11-13 18:52 | RAD_ITS ---
PROCEDURE: KNEE 4 OR MORE VIEWS 11/13/2024 REASON FOR EXAM: INJURY/PAIN TECHNIQUE: KNEE 4 OR MORE VIEWS COMPARISON: None. FINDINGS: No evidence of acute fracture or dislocation. Mild to moderate degenerative changes of the knee. No knee joint effusion. RAD/Knee 4 or More Views IMPRESSION: No acute osseous abnormalities. Osteoarthrosis. Reading Location: [place] [id number]
[2024-11-13] MEDS: HYDROcodone Bitartrate/Apap 5/325 Tablet PO (19:10)
--- NOTE | 2024-11-13 19:33 | EX.ED.GENINJ ---
HPI History of Present Illness Chief Complaint: Lower Extremity Injury Detail of Chief Complaint: Knee trauma, right Informant: patient Onset/Context/Timing Onset: Days Mechanism/Context: Fall Location of pain/injuries: Right Knee Quality of Pain: Dull and Aching Location: Me right side Current Severity: Mild Maximum Severity: Severe Worsened by: Movement and weightbearing Relieved by: Nothing Associated Symptoms Associated Symptoms: Positive for Loss of function and Inability to ambulate; Negative for Parasthesias or Weakness Narrative Narrative: Patient is a 34-year-old woman. She has chronic respiratory failure with hypoxia and hypercapnia. Prior similar symptoms: No Recent Illness/Hospitalization: No [facility] Medical History Pneumonia COPD (chronic obstructive pulmonary disease) Environmental allergies Anemia Depression Asthma Home Medications ?Medication ?Instructions ?Recorded ?Last Taken ?Type montelukast 10 mg tablet 10 mg PO DAILY allergies 03/13/18 09/02/24 History albuterol sulfate 90 mcg/actuation 1 - 2 puff inhalation Q4H PRN 09/03/24 Unknown History aerosol inhaler Wheezing bumetanide 1 mg tablet 1 mg PO DAILY edema 09/03/24 09/02/24 History bupropion HCl 150 mg 24 hr tablet, 150 mg PO DAILY mood 09/03/24 09/02/24 History extended release cetirizine 10 mg tablet 10 mg PO DAILY allergies 09/03/24 09/02/24 History cyclosporine 0.05 % eye drops in a 1 drp ophthalmic (eye) BID 09/03/24 Unknown History dropperette famotidine 20 mg tablet 20 mg PO BID PRN stomach upset 09/03/24 Unknown History ferrous sulfate 325 mg (65 mg 325 mg PO DAILY iron supplement 09/03/24 09/02/24 History iron) tablet (FeroSul) fluticasone fur. 200 mcg-umeclid 1 ea inhalation DAILY breathing 09/03/24 09/02/24 History 62.5 mcg-vilant 25 mcg inhalat.powder (Trelegy Ellipta) fluticasone propionate 50 1 spray intranasal BID allergy 09/03/24 Unknown History mcg/actuation nasal symptoms spray,suspension potassium chloride 20 mEq 20 meq PO DAILY supplement 09/03/24 09/02/24 History tablet,extended release(part/cryst) sertraline 50 mg tablet 25 mg PO DAILY mood 09/03/24 Unknown History azithromycin 500 mg tablet 500 mg PO DAILY 5 days #5 tabs 09/06/24 Unknown Rx cefdinir 300 mg capsule 300 mg PO BID 7 days #14 caps 09/06/24 Unknown Rx guaifenesin 600 mg tablet, 1,200 mg (2 x 600 mg) PO BID #20 09/06/24 Unknown Rx extended release 12 hr (Mucinex) tabs prednisone 20 mg tablet 40 mg (2 x 20 mg) PO BREAKFAST 7 09/06/24 Unknown Rx days #14 tabs hydrocodone-acetaminophen 5-325mg 1 tab PO Q6H PRN PRN Pain 3 days 11/13/24 Unknown Rx 5mg-325mg #10 TABLETS naproxen 500 mg tablet 500 mg PO BID #10 tabs 11/13/24 Unknown Rx Allergy/AdvReac Type Severity Reaction Status Date / Time No Known Allergies Allergy Verified 11/13/24 18:46 Family History Other Cancer Surgical History Hx of knee surgery Hx of section Social History housing: house Smoking Status: Former smoker ROS ROS ED Musculoskeletal Musculoskeletal: Reports other Details: HPI narrative ; Denies arthralgias, back pain, myalgias or neck pain Integumentary Denies Abrasions or rash Neurologic Neurologic: Denies paresthesias or weakness Hematologic/Lymphatic Hematologic/Lymphatic: Denies easy bleeding or easy bruising EXAM Physical Exam Const Vital Signs: 11/13/24 18:44 Temperature 97.7 F L Temperature Source Temporal Pulse Rate 83 Respiratory Rate 17 Blood Pressure 142/86 H Blood Pressure Mean 104 Pulse Ox 93 Oxygen Delivery Method Nasal Cannula Oxygen Flow Rate (L/min) 2 Positive well nourished and well developed Constitutional Narrative: BMI greater than 50 General Appearance ED: well developed HEENT HEENT Narrative: HEENT is grossly unremarkable Eyes PERRL and EOMs intact bilaterally Neck full ROM Resp normal respiratory effort and clear to auscultation bilaterally Cardio regular rhythm, S1 normal heart sound and no murmurs Extremity Extremity Narrative: Unable to discern if there is any swelling of the right knee. Exam is limited due to body habitus. Patella is not ballotable. There is no obvious effusion. Question of joint line tenderness over the medial and lateral tibial plateau. Varus valgus stress testing reveals possible laxity of the LCL compared to the uninjured leg. Mary's test and modified Sixto's are at best limited to difficult to ascertain because of body habitus. DP pulses palpable. General Extremety ED: Yes tenderness; Negative for deformity or edema General Extremity: Negative for deformity or edema Neuro oriented x3 and moves all extremities Sensorium / Orientation: alert Psych mental status grossly normal and thought process normal Skin no rashes or lesions noted, no wounds, skin turgor normal and no jaundice MDM MDM MDM Narrative Medical decision making narrative: Will obtain x-ray to see if there is any evidence of osteoarthritis, asymmetry of the joint, effusion which I am not able to determine if she has because of body habitus. Radiography Chest X-Ray - ED: Read by ED Physician (4 view x-ray of the knee reveals some chronic changes. There is no acute process i.e. fracture. There is no effusion. Patella is not high riding. There is degenerative changes noted. There are no comparisons.) Diagnostic Testing: Clinical Impression(s) from Imaging Studies Knee X-Ray 11/13/24 18:52 IMPRESSION: No acute osseous abnormalities. Osteoarthrosis. Reading Location: [place] [address] Discharge Plan Triage Chief Complaint: Lower Extremity Injury ED Provider: Randy Bailey Dx/Rx/DC Orders Clinical Impression: Pain of right knee after injury, Adult BMI 60.0-69.9 kg/sq m, Osteoarthritis of right knee Instructions: ED Meniscal Injury Knee Poss Prescriptions: New hydrocodone-acetaminophen 5-325 mg tablet 1 tab PO Q6H PRN PRN (Reason: Pain) 3 Days Qty: 10 0RF naproxen 500 mg tablet 500 mg PO BID Qty: 10 0RF No Action montelukast 10 MG tablet 10 mg PO DAILY cetirizine 10 mg tablet 10 mg PO DAILY famotidine 20 mg tablet 20 mg PO BID PRN (Reason: stomach upset) bumetanide 1 mg tablet 1 mg PO DAILY cyclosporine 0.05 % dropperette 1 drp ophthalmic (eye) BID Patient Comments: HAS NOT BEEN TAKING, THINKS SHE IS ALLERGIC bupropion HCl 150 mg tablet extended release 24 hr 150 mg PO DAILY potassium chloride 20 mEq tablet,ER particles/crystals 20 meq PO DAILY ferrous sulfate [FeroSul] 325 mg (65 mg iron) tablet 325 mg PO DAILY fluticasone propionate 50 mcg/actuation spray,suspension 1 spray INTRANASAL BID Patient Comments: PT TAKES NEEDED sertraline 50 mg tablet 25 mg PO DAILY Patient Comments: PT STATES I TAKES THIS SOMETIMES Trelegy Ellipta 200-62.5-25 mcg blister with device 1 ea INHALATION DAILY albuterol sulfate 1 INHALER inhaler 1 - 2 puff INHALATION Q4H PRN (Reason: Wheezing) prednisone 20 mg Tablet 40 mg PO BREAKFAST 7 Days Qty: 14 0RF cefdinir 300 mg capsule 300 mg PO BID 7 Days Qty: 14 0RF azithromycin 500 mg tablet 500 mg PO DAILY 5 Days Qty: 5 0RF guaifenesin [Mucinex] 600 mg tablet extended release 12hr 1,200 mg PO BID Qty: 20 0RF Primary Care Provider: Joanne Connors Referrals: Jono Luu MD [Med Staff - Active Staff] - 5-7 Days Joanne Connors, WOOL SUPPLIER-C [Primary Care Provider] - Print Language: Faroese Disposition Disposition: Home, Self Care
[2024-11-13 19:37] VITALS: BMI 57.9
[2024-11-13 19:43] VITALS: BP 140/88; PULSE 88; RESP 18; TEMP 36.3; O2SAT 95
== END 2024-11-13 19:53 | disposition home or self-care (01) ==
PROVIDERS: Emergency Provider Emergency Medicine; PCP Nurse Practitioner Family; Referring Provider Emergency Medicine; Visit Provider Emergency Medicine
DX: S89.91XA Unspecified injury of right lower leg, initial encounter (principal); J44.9 Chronic obstructive pulmonary disease, unspecified; M17.11 Unilateral primary osteoarthritis, right knee; Z87.891 Personal history of nicotine dependence; W19.XXXA Unspecified fall, initial encounter
CPT/HCPCS: 73564; 99283

== ENCOUNTER → 2025-01-29 | Outpatient (CLI) | payer MEDICARE, MEDICAID, SELFPAY ==
--- NOTE | 2025-01-29 08:05 | MRI_ITS ---
PROCEDURE: BRAIN W/WO CONTRAST 01/29/2025 REASON FOR EXAM: ELEVATED OPTIC DISCS BILATERAL TECHNIQUE: Procedure Code: [id number] Modality: MR Procedure: BRAIN W/WO CONTRAST Multiplanar and multisequence images were obtained. CONTRAST: Clariscan VOLUME: 30 mL COMPARISON: None. FINDINGS: There is a normal sulcal pattern and gyral configuration. There is no evidence of acute intracranial hemorrhage or infarction. The ness-white differentiation is well preserved. There is no evidence of restricted diffusion. The ventricles and basilar cisterns are normal. There are normal flow voids demonstrated in the recognized intracranial vessels. The cerebellum and brainstem are unremarkable. The cerebellar pontine angles are normal. The craniovertebral junction is normal. The sella and suprasellar regions are normal. The orbits and retro-orbital regions are unremarkable. There is no evidence of optic neuritis. The extraocular muscles are normal. The patient is status post bilateral uncinectomy, middle meatus antrostomy and ethmoidectomy. There is diffuse mucoperiosteal thickening of the paranasal sinuses with complete opacification of the right frontal sinus and both sphenoid sinuses. The mastoid air cells are clear. There is normal bone marrow signal in the skull base and calvarium. There is no abnormal intracranial contrast enhancement. MRI/Brain W/WO Contrast IMPRESSION: 1. No evidence of intracranial pathology. 2. No evidence of optic neuritis. 3. Status post FESS. 4. Severe pansinusitis. Reading Location: [id number]
== END | disposition home or self-care (01) ==
LOC: OPMRI 08:03
PROVIDERS: PCP Nurse Practitioner Family; Referring Provider Ophthalmology; Visit Provider Ophthalmology
DX: H47.393 Other disorders of optic disc, bilateral (principal)
CPT/HCPCS: 70553; A9581

== ENCOUNTER → 2025-02-12 | Outpatient (CLI) | payer MEDICARE, MEDICAID, SELFPAY ==
--- NOTE | 2025-02-12 16:45 | CT_ITS ---
PROCEDURE: SINUS/FACIAL BONE 02/12/2025 REASON FOR EXAM: CHRONIC SINUSITIS TECHNIQUE: Procedure Code: CTSI Modality: CT Procedure: SINUS/FACIAL BONE Coronal and Sagittal reconstruction series were provided. One or more dose reduction techniques were used (e.g., Automated exposure control, adjustment of the mA and/or kV according to patient size, use of iterative reconstruction technique). FINDINGS: Frontal: Near complete mucosal opacification in the right. Minimal mucosal thickening in the inferior medial aspect of the left frontal sinus. The bilateral sphenoethmoidal recesses are occluded with mucus. Ethmoid: No evidence of bilateral partial ethmoidectomies. Moderate mucosal thickening of several remaining bilateral ethmoid air cells. Sphenoid: Complete mucosal opacification of the bilateral sphenoid sinuses. Mucosal occlusion of the bilateral sphenoethmoidal recesses. Maxillary: Moderate to severe bilateral maxillary mucosal thickening. Evidence of bilateral nasal antral windows. Turbinates: Right-sided turbinectomy. Nasal Septum: Minimal rightward bowing. Mastoids/Middle Ears: Clear bilaterally. There is wall thickening of the bilateral maxillary and bilateral sphenoid sinuses, suggesting chronic sinusitis. CT/Sinus/Facial Bone IMPRESSION: Moderate to severe chronic-appearing paranasal sinusitis. Sinonasal surgery, as described above. Reading Location: [id number]
== END | disposition home or self-care (01) ==
LOC: CT 16:44
PROVIDERS: PCP Nurse Practitioner Family
DX: J32.8 Other chronic sinusitis (principal)
CPT/HCPCS: 70486

== ENCOUNTER 2025-02-20 09:36 | Emergency (ER) | payer MEDICARE, MEDICAID, SELFPAY ==
[2025-02-20] VITALS (9 sets, daily range): BP systolic 111–147; BP diastolic 62–95; PULSE 77–114; RESP 14–25; TEMP 37–37.4; O2SAT 94–100; BMI 57.5
--- NOTE | 2025-02-20 10:01 | EDS_ITS ---
HPI History of Present Illness Chief Complaint: Shortness of Breath Informant: patient Onset/Context/Timing Onset: Weeks (1) Context: gradual Timing: Continuous Quality: Positive for Dyspnea on exertion and Orthopnea Worsened by: Exertion and Lying flat Relieved by: Oxygen Associated Symptoms cough, rhinorrhea, fever, sweats, yellow sputum and green sputum; Negative for ear pain, sore throat, chills, clear sputum or white sputum Chest Pain: Positive for Intermittent and - (Throbbing) Narrative Narrative: Patient presents with shortness of breath that has been getting worse over the past week. Patient states this feels similar to prior episodes of pneumonia. Patient states she has home oxygen to take as needed. Patient states she has been using this more frequently. Patient admits to a cough with some green and yellow sputum. Patient admits to a fever of 102. Patient also admits to some rhinorrhea. Patient admits to some intermittent pain in her chest. Patient describes it as throbbing. Patient states it is over the substernal area. Patient admits to some nausea but denies any vomiting. PE Risk Factors: Negative for Cancer, OCP + Smoking + > 35, Prior DVT or PE, Recent immobilization, Recent surgery or Recent travel [facility] Medical History Pneumonia COPD (chronic obstructive pulmonary disease) Environmental allergies Anemia Depression Asthma Home Medications ?Medication ?Instructions ?Recorded ?Last Taken ?Type montelukast 10 mg tablet 10 mg PO DAILY allergies 10/2302/19/25 History albuterol sulfate 90 mcg/actuation 1 - 2 puff inhalati on Q4H PRN 09/03/24 02/19/25 History aerosol inhaler Wheezing bupropion HCl 150 mg 24 hr tablet, 150 mg PO DAILY moo d 09/03/24 02/20/25 History extended release cetirizine 10 mg tablet 10 mg PO DAILY allergies 02/20/25 History cyclosporine 0.05 % eye drops in a 1 drp ophthalmic (e ye) BID 09/03/24 02/19/25 History dropperette famotidine 20 mg tablet 20 mg PO BID PRN stomach ups et 09/03/24 02/19/25 History ferrous sulfate 325 mg (65 mg 325 mg PO DAILY iron sup plement 09/03/24 02/20/25 History iron) tablet (FeroSul) fluticasone fur. 200 mcg-umeclid 1 ea inhalation DAILY breathing 09/03/24 History 62.5 mcg-vilant 25 mcg inhalat.powder (Trelegy Ellipta) potassium chloride 20 mEq 20 meq PO DAILY supplement 0 09/03/24 02/19/25 History tablet,extended release(part/cryst) sertraline 50 mg tablet 50 mg PO DAILY mood 09/03/24 02/20/25 History naproxen 500 mg tablet 500 mg PO BID knee pain #10 tabs 11/13/24 02/05/25 Rx acetaminophen 500 mg capsule 1,000 mg PO Q6H PRN pain 02/20/25 02/20/25 History bumetanide 2 mg tablet 2 mg PO DAILY leg swelling 1 02/20/25 History fluorometholone 0.1 % eye 1 drp ophthalmic (eye) BID 1 02/20/25 History drops,suspension ibuprofen 200 mg capsule 600 mg PO PRN pain 02/20/25 02/19/25 History prednisone 20 mg tablet 60 mg (3 x 20 mg) PO DAILY # 15 02/20/25 Unknown Rx TABLETS Allergy/AdvReac Type Severity Reaction Status Date / Time No Known Allergies Allergy Verified 02/20/25 09:36 Family History Other Cancer Surgical History Hx of knee surgery Hx of section Social History housing: house Smoking Status: Former smoker ROS ROS ED Constitutional Constitutional ED: Reports fever(s) and sweats; Denies chills Eyes Eyes: Reports blurry vision; Denies diplopia ENT ENT ED: Reports rhinorrhea; Denies sore throat Cardiovascular Cardiovascular: Reports chest pain; Denies palpitations Respiratory/Chest Respiratory/Chest: Reports cough and dyspnea Gastrointestinal Gastrointestinal: Reports nausea; Denies vomiting Genitourinary Genitourinary ED: Denies dysuria or hematuria Musculoskeletal Musculoskeletal: Reports back pain; Denies neck pain Integumentary Denies abscess or rash Neurologic Neurologic: Reports headache(s); Denies weakness Allergic/Immunologic Allergic/Immunologic ED: Denies mouth swelling or urticaria EXAM Physical Exam Const Vital Signs: 02/20/25 09:36 02/20/25 09:39 02/20/25 09:58 Temperature 99.3 F H 99.3 F H Temperature Source Oral Oral Pulse Rate 114 H 99 Respiratory Rate 20 H 25 H Respiratory Effort Respiratory Depth Respiratory Pattern Blood Pressure 128/95 H 147/87 H Blood Pressure Mean 106 107 Pulse Ox 94 95 Oxygen Delivery Method Nasal Cannula Nasal Cannula Nasal Cannula Oxygen Flow Rate (L/min) 2 6 5.5 02/20/25 10:18 02/20/25 10:18 02/20/25 10:23 Temperature Temperature Source Pulse Rate 100 Respiratory Rate 16 Respiratory Effort Normal Short of Breath Respiratory Depth Normal Respiratory Pattern Tachypnea Blood Pressure Blood Pressure Mean Pulse Ox 94 Oxygen Delivery Method Nasal Cannula Nasal Cannula Oxygen Flow Rate (L/min) 6 5.5 02/20/25 10:39 02/20/25 11:00 02/20/25 12:00 Temperature 99.2 F H 99.2 F H Temperature Source Oral Oral Pulse Rate 88 88 88 Respiratory Rate 18 18 20 H Respiratory Effort Respiratory Depth Respiratory Pattern Blood Pressure 114/67 114/67 111/67 Blood Pressure Mean 82 82 81 Pulse Ox 96 97 99 Oxygen Delivery Method Nasal Cannula Nasal Cannula Nasal Cannula Oxygen Flow Rate (L/min) 5.5 5.5 5.5 Positive well nourished and well developed General Appearance ED: well developed and NAD HEENT Reports moist mucous membranes atraumatic Neck supple, no meningeal signs and no JVD Resp normal respiratory effort Auscultation: wheezes expiratory wheezes and scattered wheezes Cardio regular rhythm Rate: tachycardic GI non-tender and non-distended Palpation: soft Extremity normal to inspection General Extremety ED: Negative for edema or tenderness General Extremity: Negative for edema Neuro oriented x3, CN's II-XII intact bilaterally and no sensory deficits noted [place] Coma Scale: document GCS findings Spontaneous Obeys Commands Oriented 15 Sensorium / Orientation: alert Speech: speech normal Motor Exam: strength 5/5 throughout Psych mental status grossly normal MDM MDM MDM Narrative Medical decision making narrative: Differential diagnosis includes pneumonia, bronchitis, viral illness, asthma exacerbation, pulmonary embolism and anxiety. Chest x-ray will be obtained to assess for pneumonia and bronchitis. COVID-19, influenza, and RSV PCR will be obtained to assess for viral illness. CBC will be obtained to assess for leukocytosis and anemia. Basic metabolic profile will be obtained to assess for electrolyte abnormality and renal function. D-dimer will be obtained to assess for pulmonary embolism. Lab Data Attestation: I reviewed the patient's lab results. Lab results narrative: CBC was reviewed. There is a mild anemia with a hemoglobin of 11.8. Platelets were slightly low at 120. Basic metabolic profile was reviewed and was within normal limits. D-dimer was reviewed and was slightly elevated at 0.52. COVID- 19 PCR was reviewed and was negative. Influenza PCR was reviewed and was negative for influenza A and influenza B. RSV PCR was reviewed and was negative. Labs: Laboratory Results - last 24 hr 02/20/25 02/20/25 10:15 11:28 WBC 4.2 L RBC 5.18 Hgb 11.8 L Hct 39.8 MCV 76.8 L MCH 22.8 L MCHC 29.6 L RDW Std Deviation 44.2 H RDW Coeff of Micha 15.9 H Plt Count 120 L MPV 10.4 Immature Gran % (Auto) 3.300 H Neut % (Auto) 45.2 L Lymph % (Auto) 40.9 [place] % (Auto) 9.6 Eos % (Auto) 0.5 Baso % (Auto) 0.5 Absolute Neuts (auto) 1.9 L Absolute Lymphs (auto) 1.71 Nucleated RBC % 0.5 Reactive Lymphocytes RARE D-Dimer Quant (PE/DVT) 0.52 H* Sodium 139 Potassium 4.3 Chloride 101 Carbon Dioxide 30.0 Anion Gap 8 BUN 10 Creatinine 0.67 L Estim Creat Clear Calc 229.99 Est GFR (MDRD) Non-Af 119 BUN/Creatinine Ratio 14.7 Glucose 88 Calcium 8.4 Radiography Chest X-Ray - ED: 2 View, Read by ED Physician and Read by Radiologist Diagnostic Testing: Clinical Impression(s) from Imaging Studies Chest X-Ray 02/20/25 10:38 IMPRESSION: There is elevation of the left hemidiaphragm which may indicate paralysis, similar to the prior. There is no acute infiltrate. Reading Location: [facility] Chest CTA 02/20/25 12:05 IMPRESSION: NORMAL CHEST CTA. NO EVIDENCE OF ACUTE PULMONARY EMBOLISM. Elevation of the left hemidiaphragm with findings suggestive of atelectasis and scarring at the left lung base as well as the lingular segment of the left upper lobe. Reading Location: [facility]-1 PA and lateral chest x-ray was obtained. There are 2 views. On my independent interpretation, lung pittman are clear. There is elevation of the left hemidiaphragm. There is normal cardiac silhouette. Bony thorax is normal. There is no acute process noted. Radiologist also interpreted the x-ray and agrees. Because of the elevated D-dimer, CTA of the chest was obtained. There is no evidence of pulmonary embolism or aortic dissection. There is no acute infiltrate noted. This was interpreted by the radiologist and was also independently reviewed by myself. Treatment and Re-Evaluation :: Patient was given a DuoNeb aerosol here. Patient is feeling somewhat better on reevaluation. Patient did require increased oxygen here in the emergency department. Patient was given a dose of prednisone here. Patient was given a prescription for prednisone. Patient was instructed to continue her inhalers as prescribed. Patient was instructed to follow-up with her primary care physician in 3 to 5 days. Patient was instructed to return if worse in any way. Patient understood and was agreeable with the plan. All questions were answered. Discharge Plan Triage Chief Complaint: Shortness of Breath ED Provider: Neo Phelps Dx/Rx/DC Orders Clinical Impression: Asthma exacerbation, Chronic respiratory failure with hypoxia and hypercapnia Instructions: ED Asthma, Acute (Adult) Prescriptions: New prednisone 20 mg tablet 60 mg PO DAILY Qty: 15 0RF No Action montelukast 10 MG tablet 10 mg PO DAILY naproxen 500 mg tablet 500 mg PO BID Qty: 10 0RF Patient Comments: pt states she still takes as needed bumetanide 2 mg tablet 2 mg PO DAILY fluorometholone 0.1 % drops,suspension 1 drp ophthalmic (eye) BID Patient Comments: pt states only uses once daily acetaminophen 500 mg capsule 1,000 mg PO Q6H PRN (Reason: pain) ibuprofen 200 mg capsule 600 mg PO PRN cetirizine 10 mg tablet 10 mg PO DAILY famotidine 20 mg tablet 20 mg PO BID PRN (Reason: stomach upset) cyclosporine 0.05 % dropperette 1 drp ophthalmic (eye) BID Patient Comments: HAS NOT BEEN TAKING, THINKS SHE IS ALLERGIC. pt is currently using once daily bupropion HCl 150 mg tablet extended release 24 hr 150 mg PO DAILY potassium chloride 20 mEq tablet,ER particles/crystals 20 meq PO DAILY ferrous sulfate [FeroSul] 325 mg (65 mg iron) tablet 325 mg PO DAILY sertraline 50 mg tablet 50 mg PO DAILY Patient Comments: PT STATES I TAKES THIS SOMETIMES Trelegy Ellipta 200-62.5-25 mcg blister with device 1 ea INHALATION DAILY albuterol sulfate 1 INHALER inhaler 1 - 2 puff INHALATION Q4H PRN (Reason: Wheezing) Primary Care Provider: Joanne Connors Referrals: Joanne Connors, [employer] [Primary Care Provider, Medical] - 3-5 Days Print Language: [place] Citizen Disposition Disposition: Home, Self Care
[2025-02-20 10:32] LABS: Hematocrit 39.8 % (37-47); Hemoglobin 11.8 g/dL (12.0-15.0); Immature Granulocytes Count 0.140 X10^3/uL (0.0-0.0); Mean Corp Hgb Conc 29.6 g/dL (32-36); Mean Corpuscular Volume 76.8 fL (81-99); Mean Platelet Vol. 10.4 fl (6.2-12.0); NRBC Flagged by Analyzer 0.5 % (0-5); POSITIVE MORPHOLOGY YES; Platelet Count 120 K/mm3 (150-450); RBC Distribution Width CV 15.9 % (11.6-14.6); RBC Distribution Width SD 44.2 fl (35.1-43.9); Red Blood Count 5.18 M/mm3 (4.2-5.4); White Blood Count 4.2 K/mm3 (4.4-11.0)
[2025-02-20 10:37] LABS: Differential Indicated SCAN CRITERIA MET
--- NOTE | 2025-02-20 10:38 | RAD_ITS ---
PROCEDURE: CHEST PA AND LATERAL 02/20/2025 REASON FOR EXAM: COUGH TECHNIQUE: Procedure Code: RADCXR Modality: DX Procedure: CHEST PA AND LATERAL COMPARISON: September 03, 2024 FINDINGS: Heart size is within normal limits. There is elevation of the left hemidiaphragm which may indicate paralysis, similar to the prior. There is no focal infiltrate or consolidation. There is no pneumothorax or significant effusion. There is no acute bony abnormality. There is no visible atherosclerosis. RAD/Chest PA and Lateral IMPRESSION: There is elevation of the left hemidiaphragm which may indicate paralysis, feliciano lar to the prior. There is no acute infiltrate. Reading Location: [facility]
[2025-02-20 10:57] LABS: Anion Gap 8 (5-15); BUN 10 mg/dL (4-19); BUN/Creat Ratio 14.7 RATIO (10-20); Calcium,Total 8.4 mg/dL (7.6-11.0); Carbon Dioxide 30.0 mmol/L (21.0-32.0); Chloride 101 mmol/L (98-108); Estimated Creatinine Clearance 229.99 ml/min (50-250); Glucose 88 mg/dL (70-99); Potassium 4.3 mmol/L (3.3-5.1)
[2025-02-20 11:29] LABS: Reactive Lymphocyte RARE
[2025-02-20 11:55] LABS: D-Dimer Quantitative (DVT/PE) 0.52 FEU/ug/m (0.27-0.49)
--- NOTE | 2025-02-20 12:05 | CT_ITS ---
PROCEDURE: CTA CHEST W/WO CONTRAST 02/20/2025 REASON FOR EXAM: ELEVATED DDIMER, SOB TECHNIQUE: Procedure Code: [id number] Modality: CT Procedure: CTA CHEST W/WO CONTRAST Multiplanar Sagittal and Coronal images were obtained. 3D post processing was performed CONTRAST: Isovue 370 VOLUME: 95 mL One or more dose reduction techniques were used (e.g., Automated exposure control, adjustment of the mA and/or kV according to patient size, use of iterative reconstruction technique). Multiplanar Sagittal and Coronal images were obtained. 3D post processing was performed RADIATION DOSE SUMMARY: CTDlvol: 13.5 mGy DLP: 568.35 mGycm COMPARISON: Prior chest radiograph done earlier in the day. FINDINGS: Hardware: None Lymph nodes: No significant lymph nodes are seen. Heart: The heart is nonenlarged. Thoracic Aorta: No thoracic aortic aneurysm or dissection. Pulmonary Vessels: No evidence of pulmonary embolism. Lungs and Airways: Stable elevation of the left hemidiaphragm. Minimal atelectasis at the left lung base with scarring and bronchiectasis. Scarring in the lingular segment of the left upper lobe. Pleura: No pleural effusion. Upper Abdomen: Splenomegaly. Bones: Degenerative changes of the thoracic spine. CT/CTA Chest W/WO Contrast IMPRESSION: NORMAL CHEST CTA. NO EVIDENCE OF ACUTE PULMONARY EMBOLISM. Elevation of the left hemidiaphragm with findings suggestive of atelectasis and scarring at the left lung base as well as the lingular segment of the left upper lobe. Reading Location: [place] [id number]
== END 2025-02-20 13:41 | disposition home or self-care (01) ==
PROVIDERS: Emergency Provider Emergency Medicine; PCP Nurse Practitioner Family; Visit Provider Emergency Medicine
DX: J45.901 Unspecified asthma with (acute) exacerbation (principal); J96.11 Chronic respiratory failure with hypoxia; J96.12 Chronic respiratory failure with hypercapnia; J44.9 Chronic obstructive pulmonary disease, unspecified; F32.A Depression, unspecified; F41.9 Anxiety disorder, unspecified; Z79.51 Long term (current) use of inhaled steroids; Z79.899 Other long term (current) drug therapy; Z87.891 Personal history of nicotine dependence; D64.9 Anemia, unspecified
CPT/HCPCS: 71046; 71275; 80048; 85025; 85379; 87631; 94640; 99284; Q9967; A4216

== ENCOUNTER → 2025-02-27 | Outpatient (CLI) | payer MEDICARE, MEDICAID, SELFPAY | END | disposition home or self-care (01) | LOC: LABSPEC 15:24 | PROVIDERS: PCP Nurse Practitioner Family; Referring Provider Otolaryngology; Visit Provider Otolaryngology | DX: J32.9 Chronic sinusitis, unspecified (principal) | CPT/HCPCS: 87070; 87077; 87186; 87205 ==

== ENCOUNTER 2025-04-13 15:42 | Emergency (ER) | payer MEDICARE, MEDICAID, SELFPAY ==
[2025-04-13 15:42] VITALS: BP 139/93; PULSE 117; RESP 18; TEMP 37.1; O2SAT 97; BMI 50.1
[2025-04-13 15:53] VITALS: BP 129/82; PULSE 92; RESP 13; TEMP 36.7; O2SAT 100
--- NOTE | 2025-04-13 16:01 | CT_ITS ---
PROCEDURE: ABDOMEN/PELVIS W IV CONT ONLY 04/13/2025 REASON FOR EXAM: LLQ PAIN, RECENT DUODENAL SWITCH SURGERY TECHNIQUE: Procedure Code: [id number] Modality: CT Procedure: ABDOMEN/PELVIS W IV CONT ONLY Coronal and Sagittal reconstruction series were provided. CONTRAST: Isovue 370 VOLUME: 100 mL One or more dose reduction techniques were used (e.g., Automated exposure control, adjustment of the mA and/or kV according to patient size, use of iterative reconstruction technique. RADIATION DOSE SUMMARY: CTDlvol: 43.8 mGy DLP: 1947.89 mGycm COMPARISON: None FINDINGS: Lung bases: Clear Liver: Normal size. No mass. Gallbladder: Unremarkable Spleen: Splenomegaly. Pancreas: Normal size without evidence of mass surrounding inflammation or ductal dilation. Adrenals: Unremarkable. Kidneys: Normal renal sizes. No hydronephrosis. Bladder: Unremarkable. Reproductive Organs: Normal uterine size and contour. Ovaries are unremarkable. Bowel: No bowel obstruction. Postsurgical changes of recent duodenal switch surgery. Appendix: Not well seen. Lymph nodes: Unremarkable. Vasculature: The abdominal aorta and IVC are normal. Peritoneum / Retroperitoneum:Mesenteric fat stranding is noted along the small bowel loop in the left midabdomen. No free fluid or free air. Bones: Unremarkable. CT/Abdomen/Pelvis W IV Cont ONLY IMPRESSION: Mesenteric fat stranding is noted along the small bowel loop in the left midabd omen. This could represent mesenteric adenitis versus focal small-bowel diverticulitis. Reading Location: [facility]
--- NOTE | 2025-04-13 16:05 | EX.ED.DYSGE1 ---
HPI History of Present Illness Chief Complaint: Nausea/Vomiting/Diarrhea Narrative Narrative: Chief complaint and HPI: 35-year-old female with past medical history of obesity, chronic oxygen use on 6 L nasal cannula, and recent duodenal switch surgery on 03/[address] Janes Gonzalez presents for evaluation of left lower quadrant abdominal pain. Patient states that she has been on a soft diet. She states she has a follow-up appointment with her surgeon tomorrow. Patient states for the past week she has been having left lower quadrant abdominal pain with intermittent nausea, vomiting, diarrhea. She has not updated her surgeon. She denies any fever, chills, shortness of breath, chest pain, dysuria. Review of systems: See HPI Medications: As listed on the chart Allergies: As listed on the chart PFSH: Per chart Vital signs: As listed on the chart. Reviewed. Physical exam: Gen: A&O x3, NAD Head: Normocephalic, atraumatic Eyes: No sclera icterus, conjunctiva clear ENT: Moist mucous membranes CV: RRR, no murmurs Resp: Lungs CTA BL, no w/r/c, on 6 L nasal cannula-patient's chronic baseline GI: Obese, abd soft, non-distended, surgical incisions healed well without signs of infection or cellulitis, mildly tender to palpation diffusely, no rebound or rigidity Musc: Full ROM, no deformity Skin: Warm, dry Psych: Cooperative, appropriate mood and affect [facility] Medical History Pneumonia COPD (chronic obstructive pulmonary disease) Environmental allergies Anemia Depression Asthma Home Medications ?Medication ?Instructions ?Recorded ?Last Taken ?Type montelukast 10 mg tablet 10 mg PO DAILY allergies 03/13/18 04/12/25 History albuterol sulfate 90 mcg/actuation 1 - 2 puff inhalation Q4H PRN 09/03/24 04/12/25 History aerosol inhaler Wheezing bupropion HCl 150 mg 24 hr tablet, 150 mg PO DAILY mood 09/03/24 04/12/25 History extended release cetirizine 10 mg tablet 10 mg PO DAILY allergies 09/03/24 04/12/25 History famotidine 20 mg tablet 20 mg PO BID PRN stomach upset 09/03/24 04/12/25 History ferrous sulfate 325 mg (65 mg 325 mg PO DAILY iron supplement 09/03/24 04/12/25 History iron) tablet (FeroSul) fluticasone fur. 200 mcg-umeclid 1 ea inhalation DAILY breathing 09/03/24 04/12/25 History 62.5 mcg-vilant 25 mcg inhalat.powder (Trelegy Ellipta) potassium chloride 20 mEq 20 meq PO DAILY supplement 09/03/24 04/12/25 History tablet,extended release(part/cryst) sertraline 50 mg tablet 50 mg PO DAILY mood 09/03/24 04/12/25 History acetaminophen 500 mg capsule 1,000 mg PO Q6H PRN pain 02/20/25 04/12/25 History bumetanide 2 mg tablet 2 mg PO DAILY leg swelling 02/20/25 04/12/25 History ibuprofen 200 mg capsule 600 mg PO PRN pain 02/20/25 02/19/25 History omeprazole 40 mg capsule,delayed 40 mg PO DAILY 04/13/25 04/12/25 History release ondansetron 8 mg disintegrating 8 mg PO Q6H PRN PRN nausea/vomiting 04/13/25 Unknown History tablet Allergy/AdvReac Type Severity Reaction Status Date / Time No Known Allergies Allergy Verified 04/13/25 15:43 Family History Other Cancer Surgical History Hx of knee surgery Hx of section Social History housing: house Smoking Status: Former smoker EXAM Physical Exam Const Vital Signs: 04/13/25 15:42 04/13/25 15:53 04/13/25 17:49 Temperature 98.8 F 98.1 F Temperature Source Oral Temporal Pulse Rate 117 H 92 67 Respiratory Rate 18 13 14 Blood Pressure 139/93 H 129/82 H 144/119 H Blood Pressure Mean 108 97 127 Pulse Ox 97 100 100 Oxygen Delivery Method Nasal Cannula Nasal Cannula Nasal Cannula Oxygen Flow Rate (L/min) 6 6 6 04/13/25 19:00 Temperature 98.1 F Temperature Source Oral Pulse Rate 78 Respiratory Rate 16 Blood Pressure 122/78 H Blood Pressure Mean 92 Pulse Ox 98 Oxygen Delivery Method Room Air Oxygen Flow Rate (L/min) MDM MDM MDM Narrative Medical decision making narrative: 35-year-old female with past medical history of obesity, chronic oxygen use on 6 L nasal cannula, and recent duodenal switch surgery on 03/[address] Janes Gonzalez presents for evaluation of left lower quadrant abdominal pain. Patient states that she has been on a soft diet. She states she has a follow-up appointment with her surgeon tomorrow. Patient states for the past week she has been having left lower quadrant abdominal pain with intermittent nausea, vomiting, diarrhea. She has not updated her surgeon. Differential diagnosis includes but is not limited to colitis, diverticulitis, UTI, gastroenteritis, postoperative pain or complication such as abscess. NS bolus, morphine, Zofran ordered for symptoms. Laboratory workup ordered including CT abdomen and pelvis. CBC without leukocytosis. Patient has baseline anemia of 11.7. Platelets unremarkable. CMP shows hypokalemia with a potassium of 3. P.o. potassium ordered. No BRITT. No transaminitis. Lipase unremarkable. Serum negative. CT abdomen pelvis shows mesenteric fat stranding noted along the small bowel loop in the left mid abdomen. This could represent mesenteric adenitis versus focal small bowel diverticulitis. Given this finding, I did reach out to general surgery, Dr. Joseph. He states that the findings are likely secondary to her recent surgery. No antibiotics at this time. She is to follow-up with her surgeon. She does have an appointment with them tomorrow. Patient had prolonged stay in our emergency department due to difficulty urinating. Her urine is positive for UTI, it is also bloody. Urine culture sent. Patient informed me after the urine was obtained that she is on her menstrual cycle which explains the bleeding. Patient was given her first dose of Keflex here for UTI. She is updated on the CT abdomen pelvis findings. Told to follow-up with her surgeon. Will print out the read so she can give it to them. She confirmed understanding. Follow-up with PCP for UTI. Return precautions explained. Impression: 1. Left lower quadrant pain with recent surgery 2. Hypokalemia 3. UTI on current menstrual cycle Lab Data Labs: Laboratory Results - last 24 hr 04/13/25 04/13/25 04/13/25 16:10 16:52 18:50 WBC 5.8 RBC 5.26 Hgb 11.7 L Hct 40.2 MCV 76.4 L MCH 22.2 L MCHC 29.1 L RDW Std Deviation 43.9 RDW Coeff of Micha 15.9 H Plt Count 216 MPV 9.8 Immature Gran % (Auto) 0.300 Neut % (Auto) 73.7 H Lymph % (Auto) 16.5 L [place] % (Auto) 7.9 Eos % (Auto) 1.4 Baso % (Auto) 0.2 Absolute Neuts (auto) 4.3 Absolute Lymphs (auto) 0.96 Nucleated RBC % 0 Sodium 141 Potassium 3.0 L Chloride 97 L Carbon Dioxide 33.1 H Anion Gap 11 BUN 8 Creatinine 0.59 L Estim Creat Clear Calc 237.63 Est GFR (MDRD) Non-Af 122 BUN/Creatinine Ratio 13.5 Glucose 94 Calcium 9.1 Total Bilirubin 0.41 AST 15 ALT 27 Alkaline Phosphatase 81 Total Protein 6.0 Albumin 3.8 Globulin 2.2 Albumin/Globulin Ratio 1.7 Lipase 23 Serum , Qual NEGATIVE Urine Color Cancelled Red Urine Clarity Cancelled Cloudy Urine pH Cancelled 7.0 Ur Specific [place] Cancelled 1.005 U Specif Grav (Refrac) Cancelled Urine Protein Cancelled 100 H Urine Glucose (UA) Cancelled Normal Urine Ketones Cancelled 50 H Urine Occult Blood Cancelled 250 H Urine Nitrite Cancelled Negative Urine Bilirubin Cancelled Negative Urine Urobilinogen Cancelled 4 H Ur Leukocyte Esterase Cancelled 500 H Urine RBC Cancelled 50-100 SEEN Urine WBC Cancelled 0-5 SEEN Ur Squamous Epith Cells Cancelled 0-5 SEEN Ur Transition Epith Cell Cancelled Ur Renal Epithelial Cell Cancelled Calcium Oxalate Crystal Cancelled Uric Acid Crystals Cancelled Triple Phos Crystals Cancelled Other Crystals Cancelled Amorphous Sediment Cancelled Urine Bacteria Cancelled 1+ Hyaline Casts Cancelled Fine Granular Casts Cancelled Coarse Granular Casts Cancelled Waxy Casts Cancelled RBC Casts Cancelled WBC Casts Cancelled Urine Mucus Cancelled 0 SEEN Urine Trichomonas Cancelled Urine Yeast Cancelled Radiography Diagnostic Testing: Clinical Impression(s) from Imaging Studies Abdomen/Pelvis CT 04/13/25 16:01 IMPRESSION: Mesenteric fat stranding is noted along the small bowel loop in the left midabdomen. This could represent mesenteric adenitis versus focal small-bowel diverticulitis. Reading Location: [facility] Discharge Plan Triage Chief Complaint: Nausea/Vomiting/Diarrhea Other Complaint: Abd Pain ED Provider: Jovan Sanchez Dx/Rx/DC Orders Prescriptions: No Action montelukast 10 MG tablet 10 mg PO DAILY bumetanide 2 mg tablet 2 mg PO DAILY acetaminophen 500 mg capsule 1,000 mg PO Q6H PRN (Reason: pain) ibuprofen 200 mg capsule 600 mg PO PRN omeprazole 40 mg capsule,delayed release(DR/EC) 40 mg PO DAILY ondansetron 8 mg tablet,disintegrating 8 mg PO Q6H PRN PRN (Reason: nausea/vomiting) cetirizine 10 mg tablet 10 mg PO DAILY famotidine 20 mg tablet 20 mg PO BID PRN (Reason: stomach upset) bupropion HCl 150 mg tablet extended release 24 hr 150 mg PO DAILY potassium chloride 20 mEq tablet,ER particles/crystals 20 meq PO DAILY ferrous sulfate [FeroSul] 325 mg (65 mg iron) tablet 325 mg PO DAILY sertraline 50 mg tablet 50 mg PO DAILY Trelegy Ellipta 200-62.5-25 mcg blister with device 1 ea INHALATION DAILY albuterol sulfate 1 INHALER inhaler 1 - 2 puff INHALATION Q4H PRN (Reason: Wheezing) Primary Care Provider: Joanne Connors Referrals: Joanne Connors, [facility] [Primary Care Provider, Medical] Print Language: [place]
[2025-04-13] MEDS: 0.9% Normal Saline (1000mL) 1,000 ML 999 ML IV (16:08)
[2025-04-13 16:17] LABS: Hematocrit 40.2 % (37-47); Hemoglobin 11.7 g/dL (12.0-15.0); Immature Granulocytes Count 0.020 X10^3/uL (0.0-0.0); Mean Corp Hgb Conc 29.1 g/dL (32-36); Mean Corpuscular Volume 76.4 fL (81-99); Mean Platelet Vol. 9.8 fl (6.2-12.0); NRBC Flagged by Analyzer 0 % (0-5); Platelet Count 216 K/mm3 (150-450); RBC Distribution Width CV 15.9 % (11.6-14.6); RBC Distribution Width SD 43.9 fl (35.1-43.9); Red Blood Count 5.26 M/mm3 (4.2-5.4); White Blood Count 5.8 K/mm3 (4.4-11.0)
--- OUTSIDE RECORDS SUMMARY | 2025-04-13 16:22 | XMS RPT_ITS | CCD ---
Author Organization [facility] Care Team Providers Care Side Framer Name Role Phone Unavailable Primary Care Provider Unavailmaria dolores e Sandee Hoyt Primary Care Provider Jose FUENTES, Sandee Primary Care Provider Sandee Hoyt MD Primary Care Provider Jose FUENTES, Sandee Primary Care Provider [phone] Sandee Hoyt MD Primary Care Provider Bosak DO, Crispin A Primary Care Provider [phone] ISRA QUAN MD Primary Care Physician Bosak DO, Crispin A Primary Care Provider Bosak DO, Crispin A Primary Care Provider [phone] SANDEE HOYT Primary Care Unavailable ZACH VALDEZ Referring Unavailable BOSAK, CRISPIN A Referring Unavailable BOSAK, CRISPIN A Primary Care Unavailable BOSAK, CRISPIN A Referring Unavailable BOSAK, CRISPIN A Primary Care Unavailable BOSAK, CRISPIN A Referring Unavailable BOSAK, CRISPIN A Primary Care Unavailable ZACH VALDEZ Referring Unavailable BOSAK, CRISPIN A Primary Care Unavailable CUTRONAOSMAN Referring Unavailable SANDEE HOYT Primary Care Unavailable SANDEE HOYT Primary Care Unavailable CUTRONAOSMAN Referring Unavailable SANDEE HOYT Primary Care Unavailable CUTRONAOSMAN Referring Unavailable CUTRONA, OSMAN Lee Referring Unavailable BOSAK, CRISPIN A Primary Care Unavailable CUTRONASOMAN Referring Unavailable BOSAK, CRISPIN A Primary Care Unavailable SANDEE HOYT Primary Care Unavailable CUTRONAOSMAN Referring Unavailable SANDEE HOYT Primary Care Unavailable CUTRONAOSMAN Referring Unavailable Unavailable Primary Care Provider Unavailmaria dolores Bermeo POT FISHER.TWISTING OPERATOR, Louann Primary Care Provider Jean-Claude POT FISHER.TWISTING OPERATOR, Louann Primary Care Provider JEAN-CLAUDE CHILD STUDY TEAM DIRECTOR, LOUANN TRENT Primary Care Physician GRICELDA FUENTES, ANSELMO Attending Unavailable JEAN-CLAUDE CHILD STUDY TEAM DIRECTOR, LOUANN TRENT Primary Care Unavaila tonia URBANO MD, OLGA Admitting Unavailable SUNDEEP FUENTES, OLGA Consulting Unavailable ISRA QUAN MD Primary Care Unavailable TRISTAN SMITH, SANDEE Núñez Attending Unavailable Jean-Claude CHILD STUDY TEAM DIRECTOR-C, Louann Primary Care Provider Demetris FUENTES, Dr. Echols Attending Provider Demetris FUENTES, Dr. Echols Emergency Provider Yari FUENTES, Dr. Larson Attending Provider Leo FUENTES, Dr. Padilla Emergency Provider Lashell FUENTES, Dr. Jesse Lee Admit Provider Lashell FUENTES, Dr. Jesse Lee Other Provider Emma FUENTES, Dr. Krueger Attending Provider Unavaila tonia Lobo MD, Dr. Jesse Lee Attending Provider Jennifer FUENTES, Dr. Driscoll Other Provider Kerry FUENTES, Dr. Alas Other Provider Dr. Eros Hu MD Other Provider Dr. Toro Holcomb DO Other Provider Dr. Evans Carpio MD Other Provider Dr. Tadeo Ely MD Other Provider Kisha FUENTES, Dr. Lopez Other Provider Neal FUENTES, Dr. Fleming Other Provider Elijah FUENTES, Dr. Gutiérrez Other Provider Talon FUENTES, Dr. Park Other Provider William FUENTES, Dr. Thomas Other Provider Loraine FUENTES, Dr. Mancia Other Provider Cindi FUENTES, Dr. Beck Other Provider Unavailmaria dolores Ramirez MD, Dr. James Other Provider Kyree FUENTES, Dr. Lua Other Provider Maria Ines FUENTES, Dr. Chopra Other Provider Darius FUENTES, Dr. Gomez Other Provider Agata SMITH, Dr. Mcdonnell Other Provider Minerva FUENTES, Dr. Ramirez Other Provider [phone] Gretel FUENTES, Dr. Vega Other Provider Massimo SMITH, Dr. Espinoza Other Provider Mohan FUENTES, Dr. Bustillo Other Provider Warren FUENTES, Dr. Harrison Other Provider [phone] Emma FUENTES, Dr. Krueger Other Provider Unavailable Zhang SMITH, Dr. Engel Attending Provider Rosetta FUENTES, Dr. Lam Attending Provider Jean-Claude CHILD STUDY TEAM DIRECTOR-C, Louann Primary Care Provider [phone] Dr. Randy Bailey MD Referring Provider Dr. Evans Carter MD Referring Provider Unavaila ble LOUANN BERMEO Primary Care Unavailable ELISA JEAN Referring Unavailable Lily AGUILERA, Osman Unavailable Jean-Claude CHILD STUDY TEAM DIRECTOR-C, Louann Primary Care Physician Dr. Randy Bailey MD Attending Physician [phone] Dr. Randy Bailey MD Referring Provider Dr. Randy Bailey MD Emergency Department Physician Jean-Claude CHILD STUDY TEAM DIRECTOR-C, Louann Attending Physician Jean-Claude CHILD STUDY TEAM DIRECTOR-C, Louann Referring Provider Sunil FUENTES, Dr. Duncan Attending Physician Sunil FUENTES, Dr. Duncan Referring Provider Neo Wahl Attending Physician Neo Wahl Referring Provider Lenin SMITH, Dr. Larson Attending Physician Lenin SMITH, Dr. Larson Emergency Department Physi herminio Aamnuel FUENTES, Dr. Elliott Attending Physician Amanuel FUENTES, Dr. Elliott Referring Provider Jean-Claude, Louann Primary Care Unavailable Earl Vital Referring Unavailable Earl Vital Attending Unavailable Bailey, Randy Referring Unavailable Bailey, Randy Attending Unavailable Yanioble, Louann Primary Care Unavailable Sandee Rodriguez Consulting Unavailable Jean-Claude, Louann Primary Care Unavailable Evans Carter Attending Unavailable Jesse Lobo Admitting Unavailable Bishop Payne Consulting Unavailable Eros Hu Consulting Unavailable Toro Holcomb Consulting Unavailable Evans Carpio Consulting Unavailable Tadeo Ely Consulting Unavailable John Beard Consulting Unavailable Bernadette De Jesus Consulting UnavailBrock Call Consulting Unavailable Xavier Hanley Consulting Unavailable William Thomas Consulting Unavailable Blanche Baron Consulting Unavailable Ebony Puente Consulting Unavailable Erika Ramirez Consulting Unavailable Kyree, Stoney Consulting Unavailable Nav Spann Consulting Unavailable Darius, Jason Consulting Unavailable Cora Parmarkhdeep Consulting Unavailable Ashley Palma Consulting Unavailable Gary Majano Consulting Unavailable Alexis Keys Consulting Unavailable Keny Preston Consulting Unavailable Hunter Kelley Consulting Unavailable Jesse Lobo Consulting Unavailable Evans Carter Consulting Unavailable Evans Carter Referring Unavailable Toro Holcomb Attending Unavailable Louann Bermeo Primary Care Unavailable Genaro Sargent Attending Unavailable Neo Greenberg Attending Unavailable Jean-Claude, Louann Primary Care Unavailable Bailey, Randy Referring Unavailable Jesse Lobo Attending Unavailable Neo Phelps Attending Unavailable Yanioble, Louann Primary Care Unavailable Yanioble, Louann Primary Care Unavailable Onesimo Willson Attending Unavailable Yanioble, Louann Primary Care Unavailable Dakota Barber Referring Unavailable Dakota Barber Attending Unavailable Knoble, Louann Primary Care Unavailable Boone, Neo Referring Unavailable Boone, Neo Attending Unavailable Knoble, Louann Primary Care Unavailable Jesse Lobo Admitting Unavailable Evans Carter Attending Unavailable Jesse Lobo Consulting Unavailable Knoble, Louann Primary Care Unavailable Knoble, Louann Referring Unavailable Knoble, Louann Attending Unavailable Knoble, Louann Primary Care Unavailable Boone, Neo Referring Unavailable Boone, Neo Attending Unavailable KNOBLE, LOUANN Primary Care Unavailable GORTY, ELISA A Referring Unavailable KNOBLE, LOUANN Primary Care Unavailable CORCELLES CODINAJANES Attending Unavail able KNOBLE, LOUANN Primary Care Unavailable BRENDAN MC Attending Unavailable KNOBLE, LOUANN Primary Care Unavailable CLICKRADHA Attending Unavailable KNOBLE, LOUANN Primary Care Unavailable GAB BOB Attending Unavailable KNOBLE, LOUANN Primary Care Unavailable GORTY, ELISA A Referring Unavailable JENI URBINA Attending Unavailable KNOBLE, LOUANN Primary Care Unavailable BOBGAB PORTILLO Referring Unavailable KNOBLE, LOUANN Primary Care Unavailable BOBGAB PORTILLO Attending Unavailable KNOBLE, LOUANN Primary Care Unavailable BOBGAB Attending Unavailable KNOBLE, LOUANN Primary Care Unavailable CORCELLES CODJANES WU Attending Unavail able KNOBLE, LOUANN Primary Care Unavailable CORCELLES CODINA, JANES Attending Unavail able CORCELLES CODINA JANES Admitting Unavail able EMILY GUSTAFSON Attending Unavailable KNOBLE, LOUANN Primary Care Unavailable KNOBLE, LOUANN Primary Care Unavailable CLICKRADHA M Referring Unavailable KNOBLE, LOUANN Primary Care Unavailable CLICKRADHA M Referring Unavailable KNOBLE, LOUANN Primary Care Unavailable KNOBLE, LOUANN Attending Unavailable KNOBLE, LOUANN Primary Care Unavailable GORTY, ELISA A Attending Unavailable KNOBLE, LOUANN Primary Care Unavailable GORTY, ELISA A Referring Unavailable KNOBLE, LOUANN Primary Care Unavailable GORTY, ELISA A Referring Unavailable CORCELLES CODINA, JANES Referring Unavail able KNOBLE, LOUANN Primary Care Unavailable KNOBLE, LOUANN Primary Care Unavailable KNOBLE, LOUANN Primary Care Unavailable BOBGAB PORTILLO Attending Unavailable KNOBLE, LOUANN Primary Care Unavailable OSMAN BAUTISTA Attending Unavailable KNOBLE, LOUANN Primary Care Unavailable KNOBLE, LOUANN Attending Unavailable KNOBLE, LOUANN Primary Care Unavailable KNOBLE, LOUANN Primary Care Unavailable KNOBLE, LOUANN Attending Unavailable KNOBLE, LOUANN Primary Care Unavailable KNOBLE, LOUANN Referring Unavailable KNOBLE, LOUANN Primary Care Unavailable INOCENCIAJERMAIN ELISA A Referring Unavailable KNOBLE, LOUANN Primary Care Unavailable KNOBLE, LOUANN Attending Unavailable KNOBLE, LOUANN Primary Care Unavailable GAB BOB Attending Unavailable KNOBLE, LOUANN Primary Care Unavailable KNOBLE, LOUANN Referring Unavailable KNOBLE, LOUANN Primary Care Unavailable OSMAN BAUTISTA Attending Unavailable KNOBLE, LOUANN Primary Care Unavailable RADHA CHAPMAN Referring Unavailable KNOBLE, LOUANN Primary Care Unavailable RADHA CHAPMAN Referring Unavailable KNOBLE, LOUANN Primary Care Unavailable GAB BOB Attending Unavailable KNOBLE, LOUANN Primary Care Unavailable OSMAN BAUTISTA Attending Unavailable Allergies Allergy Classification Reported Allergen(s) Allergy Type Date of Onset Reaction(s) Facility (20 sources) Seasonal allergy Propensity to adverse reactions to substance 8 Other (See Comments) [place], [place] (20 sources) Immune Globulin (Human) Propensity to adverse reactions to drug 9 Nausea And Vomiting [place], [place] (20 sources) Seasonal allergy; Translations: [SEASONAL ALLERGIES] Allergy to substance 8 Other: See Comments [facility] Work Phone: Medications Current Medications Medication Drug Class(es) Dates Sig (Normalized) Sig (Original) acetaminophen 500 mg oral capsule (8 sources) Start: 02-20-2025 take 2 capsules by mouth every six hours as needed for pain Start: 02-07-2022 End: 02-07-2022 acetaminophen (TYLENOL) tabl et 650 mg Start: 01-05-2022 End: 01-05-2022 acetaminophen (TYLENOL) tabl et 650 mg Start: 05-01-2019 650 mg, Oral, EVERY 4 HOURS PRN, Fever, For temp greater than 100.5 F (38 C), Starting 05/01/19 at 1600 Maximum dose of acetaminophen is 4000 mg from all sources in 24 hours. Start: 04-01-2019 End: 04-01-2019 acetaminophen (TYLENOL) tabl et 650 mg Start: 03-19-2019 End: 03-19-2019 acetaminophen (TYLENOL) tabl et 650 mg Start: 02-23-2019 650 mg, Oral, EVERY 4 HOURS PRN, Pain Moderate (4-6), Fever, For temp greater than 100.5 F (38 C), Starting 02/23/19 at 1150 Maximum dose of acetaminophen is 4000 mg from all sources in 24 hours. Start: 01-15-2019 650 mg, Oral, EVERY 4 HOURS PRN, Pain Moderate (4-6), Fever, For temp greater than 100.5 F (38 C), Starting 01/15/19 at 2217 Maximum dose of acetaminophen is 4000 mg from all sources in 24 hours. acyclovir 200 mg oral capsule (3 sources) Herpesvirus Nucleoside Analog DNA Polymerase Inhibitor, Herpes Simplex Virus Nucleoside Analog DNA Polymerase Inhibitor, Herpes Zoster Virus Nucleoside Analog DNA Polymerase Inhibitor Start: 05-01-2019 take 400 mg by mouth twice daily 400 mg, Oral, 2 TIMES DAILY, First dose on Mon05/01/19 at 2100 Start: 03-22-2019 take 1 tablet by yasir th twice daily acyclovir (ZOVIRAX) 400 MG tablet Take 1 tablet by mouth 2 times daily 1 03/22/2019 Active [id number] 200 actuat albuterol 0.09 mg/actuat metered dose inhaler (20 sources) beta2-Adrenergic Agonist Start: 08-27-2024 End: 11-26-2024 take 2 puff(s) by inhalation every four hours as needed for wheezing albuterol HFA (PROVENTIL HFA, VENTOLIN HFA) 90 mcg/actuation inhaler Inhale 2 puffs as instructed every 4 hours as needed for wheezing/shortness of breath. 1 each 11/26/2024 Active Start: 05-19-2022 albuterol (PRO VENTIL) (2.5 MG/3ML) 0.083% nebulizer solution Indications: Medication refill , Chronic asthma, severe persistent, uncomplicated , Chronic respiratory failure with hypoxia (HCC) Take 3 mLs by nebulization every 6 hours as needed for Wheezing 120 each 05/19/2022 Active Start: 05-19-2022 take 2 puff(s) by in halation every six hours as needed for wheezing albuterol sulfate HFA (PROVENTIL;VENTOLIN;PROAIR) 108 (90 Base) MCG/ACT inhaler Indications: Medication refill , Chronic asthma, severe persistent, uncomplicated , Chronic respiratory failure with hypoxia (HCC) Inhale 2 puffs into the lungs every 6 hours as needed for Wheezing 3 each 5 05/19/2022 Active Start: 12-13-2019 End: 01-05-2022 albuterol (PROVENTIL) (2.5 M G/3ML) 0.083% nebulizer solution Indications: Chronic asthma, severe persistent, uncomplicated , Chronic respiratory failure with hypoxia (HCC) Take 3 mLs by nebulization every 6 hours as needed for Wheezing 120 each 5 01/05/2022 Active Start: 12-13-2019 End: 01-05-2022 take 2 puff(s) by inhalation every six hours as needed for wheezing albuterol sulfate HFA (PROVENTIL;VENTOLIN;PROAIR) 108 (90 Base) MCG/ACT inhaler Indications: Chronic asthma, severe persistent, uncomplicated , Chronic respiratory failure with hypoxia (HCC) Inhale 2 puffs into the lungs every 6 hours as needed for Wheezing 3 each 5 01/05/2022 Active Start: 05-01-2019 2.5 mg, Nebuli zation, EVERY 6 HOURS PRN, Wheezing, Starting 05/01/19 at 1600 Start: 02-23-2019 2.5 mg, Nebuli zation, EVERY 4 HOURS WHILE AWAKE, First dose on 02/23/19 at 1600 Start: 06-19-2018 albuterol (PRO VENTIL) 2.5 mg /3 mL (0.083 %) nebulizer solution Indications: Severe persistent asthma without complication (HCC) Use 3 mL via nebulizer every 6 hours as needed for Wheezing/Shortness of Breath. 120 Vial 06/19/2018 Active Start: 04-18-2018 End: 05-02-2018 albuterol 2.5 mg/3 mL (0.083 %) inhalation solution Dose : 2.5 mg = 3 mL, Inhalation, q4hRT, PRN Shortness of breath or wheezing, # 25 EA, 0 Refill(s), Pharmacy: [id number] Start Date: 04/18/18 Stop Date: 05/02/18 Status: Ordered Start: 10-27-2017 End: 09-03-2024 Start: 10-27-2017 End: 09-03-2024 Albuterol Sulfate 1 INHALER inhaler Discontinued 1 - 2 NMA INHALATION EVERY 4 HOURS NEEDED as needed for Wheezing 1 0 October 27, 2017 12:00am September 03, 2024 3:57pm Start: 10-27-2017 End: 09-03-2024 Albuterol Sulfate 1 INHALER inhaler Discontinued 1 - 2 NMA INHALATION EVERY 4 HOURS NEEDED as needed for Wheezing 1 October 27, 2017 12:00am September 03, 2024 3:57pm Start: 10-27-2017 take 1 puff(s) by in halation every four hours as needed Albuterol Sulfate Active 1 - 2 PUFF INHALATION EVERY 4 HOURS NEEDED 1 October 27, 2017 12:00am End: 08-27-2024 albuterol HFA (PROVENTIL HFA , VENTOLIN HFA) 90 mcg/actuation inhaler Inhale 2 Puffs as instructed. 08/27/2024 Discontinued albuterol (PROVE NTIL) (2.5 MG/3ML) 0.083% nebulizer solution Take 2.5 mg by nebulization every 6 hours as needed for Wheezing 0 Active take 2 puff(s) by in halation every six hours as needed for wheezing albuterol sulfate HFA 108 (90 Base) MCG/ACT inhaler Inhale 2 puffs into the lungs every 6 hours as needed for Wheezing 0 Active take 2 puff(s) by in halation every six hours as needed for wheezing albuterol sulfate HFA 108 (90 Base) MCG/ACT inhaler Inhale 2 puffs into the lungs every 6 hours as needed for Wheezing 0 Active Comment on above: Inhale 2 Puffs as in structed. Use 3 mL via nebuliz er every 6 hours as needed for Wheezing/Shortness of Breath. albuterol 0.833 mg/ml / ipratropium bromide 0.167 mg/ml inhalation solution (20 sources) Anticholinergic, beta2-Adrenergic Agonist Start: 05-19-2022 ipratropium-albuterol (DUONEB) 0.5-2.5 (3) MG/3ML SOLN nebulizer solution Indications: Medication refill , Chronic asthma, severe persistent, uncomplicated , Chronic respiratory failure with hypoxia (HCC) Take 3 mLs by nebulization every 4 hours as needed for Shortness of Breath 24 each 5 05/19/2022 Active Start: 12-12-2021 DuoNeb Dose = 3 mL, Inhalation, q4hRT, 0 Refill(s) Start Date: 12/12/21 Status: Ordered Start: 12-12-2021 DuoNeb Dose = 3 mL, Inhalation, q2hRT, PRN Shortness of breath or wheezing, 0 Refill(s) Start Date: 12/12/21 Status: Ordered Start: 11-05-2020 ipratropium-al buterol (DUONEB) nebulizer solution 1 ampule Start: 09-06-2020 End: 01-05-2022 ipratropium-albuterol (DUONE B) 0.5-2.5 (3) MG/3ML SOLN nebulizer solution Indications: Chronic asthma, severe persistent, uncomplicated , Chronic respiratory failure with hypoxia (HCC) Take 3 mLs by nebulization every 4 hours as needed for Shortness of Breath 24 each 5 01/05/2022 Active Start: 05-01-2019 1 ampule, Inha lation, EVERY 4 HOURS WHILE AWAKE, First dose on Mon05/01/19 at 2000 Start: 05-01-2019 End: 05-01-2019 ipratropium-albuterol (DUONE B) nebulizer solution 1 ampule Start: 04-01-2019 End: 04-01-2019 ipratropium-albuterol (DUONE B) nebulizer solution 3 ampule Start: 02-23-2019 End: 02-23-2019 ipratropium-albuterol (DUONE B) nebulizer solution 1 ampule Start: 01-16-2019 1 ampule, Inha lation, EVERY 4 HOURS WHILE AWAKE, First dose on Mon01/16/19 at 0800 Start: 01-15-2019 End: 01-15-2019 ipratropium-albuterol (DUONE B) nebulizer solution 1 ampule albuterol sulfate HFA 108 (90 Base) MCG/ACT inhaler (1 source) Start: 12-13-2019 take 2 puff(s) by inhalation every six hours as needed for wheezing albuterol sulfate HFA 108 (90 Base) MCG/ACT inhaler Indications: Severe persistent asthma, unspecified whether complicated Inhale 2 puffs into the lungs every 6 hours as needed for Wheezing 1 Inhaler 3 12/13/2019 Active amoxicillin 875 mg oral tablet (1 source) Penicillin-class Antibacterial Start: 09-18-2024 End: 09-25-2024 take 1 tablet by mouth twice daily amoxicillin (AMOXIL) 875 mg tablet Take 1 tablet by mouth two times a day for 7 days. 14 tablet 09/18/2024 09/25/2024 Active amoxicillin 875 mg / clavulanate 125 mg oral tablet (3 sources) Penicillin-class Antibacterial Start: 09-19-2023 End: 09-26-2023 take 1 tablet by mouth twice daily amoxicillin-clavu lanate potassium (AUGMENTIN) 875-125 mg per tablet Take 1 tablet by mouth two times a day for 7 days. 14 tablet 0 09/19/2023 09/26/2023 Active Start: 04-12-2021 Amoxicillin 87 5/Pot Clav 125 (Augmentin) 875-125 mg tablet Active 1 TAB PO EVERY 12 HOURS 14 April 12, 2021 5:44pm Start: 01-18-2019 End: 01-25-2019 take 1 tablet by mouth twice daily amoxicillin-clavulanate (AUGMENTIN) 875-125 MG per tablet Take 1 tablet by mouth 2 times daily for 7 days 14 tablet 0 01/18/2019 01/25/2019 Active Anoro Ellipta 62.5 mcg-25 mcg/inh inhalation powder (2 sources) Start: 12-11-2021 take 1 dose by inhalation once daily Anoro Ellipta 62.5 mcg-25 mcg/inh inhalation powder Dose = 1 puff(s), Inhalation, qDay, 0 Refill(s) Start Date: 12/11/21 Status: Ordered aspirin 81 mg oral tablet (3 sources) Platelet Aggregation Inhibitor, Nonsteroidal Anti-inflammatory Drug Start: 04-13-2018 take 1 dose by mouth once daily aspirin Dose : 81 mg =, Oral, qDay Start Date: 04/13/18 Status: Ordered benzocaine 15 mg / menthol 3.6 mg oral lozenge (1 source) Standardized Chemical Allergen Start: 01-16-2019 benzocaine-mentho l (CEPACOL SORE THROAT) lozenge 1 lozenge benzonatate 100 mg oral capsule (1 source) Non-narcotic Antitussive Start: 04-12-2021 take 100 mg by mouth once daily for cough Benzonatate Active 100 MG PO .nightly 14 April 12, 2021 5:45pm PRN cough Breo Ellipta 200 mcg-25 mcg/inh inhalation powder (2 sources) Start: 12-11-2021 take 1 dose by inhalation once daily Breo Ellipta 200 mcg-25 mcg/inh inhalation powder Dose = 1 puff(s), Inhalation, Daily, # 1 EA, 0 Refill(s) Start Date: 12/11/21 Status: Ordered bumetanide 2 mg oral tablet (20 sources) Loop Diuretic Start: 10-29-2024 End: 05-25-2025 take 1 tablet by mouth once daily Start: 04-12-2024 End: 02-20-2025 take 1 tablet by mouth once daily Bumetanide 1 mg tablet Discontinued 1 mg PO DAILY September 03, 2024 12:00am February 20, 2025 11:25am edema Start: 04-02-2024 End: 05-02-2024 take 1 tablet by mouth once daily bumetanide (BUMEX) 0.5 mg tablet Take 0.5 mg by mouth once daily. 04/02/2024 04/12/2024 Discontinued 24 hr buPROPion hydrochlorid e 150 mg extended release oral tablet (20 sources) Aminoketone Start: 09-03-2024 take 1 tablet by yasir th once daily Start: 12-14-2022 End: 07-18-2024 take 1 tablet by mouth once daily in the morning buPROPion XL (WELLBUTRIN XL) 150 mg 24 hr tablet Indications: Current severe episode of major depressive disorder without psychotic features without prior episode (HCC) , MARCUS (generalized anxiety disorder) Take 1 tablet by mouth every morning. 90 tablet 1 07/18/2024 Active Start: 05-19-2022 take 1 tablet by yasir th once daily in the morning buPROPion (WELLBUTRIN XL) 150 MG extended release tablet Indications: Current mild episode of major depressive disorder, unspecified whether recurrent (HCC) , Medication refill Take 1 tablet by mouth every morning 90 tablet 1 05/19/2022 Active Start: 12-11-2021 take 1 tablet by yasir th every hour, then take 1 tablet by mouth every twenty-four hours Wellbutrin XL 150 mg/24 hours oral tablet, extended release Dose : 150 mg = 1 tab(s), Oral, q24h, # 30 tab(s), 0 Refill(s) Start Date: 12/11/21 Status: Ordered Start: 05-31-2021 End: 01-05-2022 take 1 tablet by mouth once daily in the morning buPROPion (WELLBUTRIN XL) 150 MG extended release tablet Indications: Current mild episode of major depressive disorder, unspecified whether recurrent (HCC) Take 1 tablet by mouth every morning 90 tablet 1 01/05/2022 Active Comment on above: Take 150 mg by mouth every morning. Take 1 tablet by yasir th every morning. cetirizine hydrochloride 10 mg oral tablet (20 sources) Histamine-1 Receptor Antagonist Start: 12-14-2022 End: 11-26-2024 take 1 tablet by mouth once daily Start: 05-19-2022 take 1 tablet by yasir th once daily cetirizine (ZYRTEC) 10 MG tablet Indications: Medication refill , Chronic asthma, severe persistent, uncomplicated Take 1 tablet by mouth daily 90 tablet 1 05/19/2022 Active Start: 04-16-2020 End: 01-05-2022 take 1 tablet by mouth once daily cetirizine (ZYRTEC) 10 MG tablet Indications: Chronic asthma, severe persistent, uncomplicated Take 1 tablet by mouth daily 90 tablet 1 01/05/2022 Active Start: 12-13-2019 take 1 tablet by yasir th once daily cetirizine (ZYRTEC) 10 MG tablet Indications: Eye pain, bilateral Take 1 tablet by mouth daily 90 tablet 1 12/13/2019 Active Start: 02-07-2019 take 10 mg by mouth once daily 10 mg, Oral, DAILY, First dose on Mon05/01/19 at 1630 Comment on above: Take 1 tablet by yasir th every afternoon. COMPOUNDED PRESCRIPTION (20 sources) Start: 05-11-2018 COMPOUNDED PRESCRIPTION Please assess for portable oxygen concentrator. 1 Each 05/11/2018 Active Start: 05-11-2018 COMPOUNDED PRE SCRIPTION Please assess for portable oxygen concentrator. 1 Each 0 05/11/2018 Active Comment on above: Please assess for po rtable oxygen concentrator. Cyclosporine (1 source) Calcineurin Inhibitor Immunosuppressant Start: cycloSPORINE (RESTASIS) 0.05 % ophthalmic emulsion (20 sources) Start: take 1 drop(s) into the eye(s) twice daily cycloSPORINE (RESTASIS) 0.05 % ophthalmic emulsion Use 1 drop in both eyes two times a day. 08/05/2024 Active Cyclosporine 0.05 % dropperette (2 sources) Start: 025 Cyclosporine 0.05 % dropperette Active 1 NMA OPHTHALMIC TWICE A DAY September 03, 2024 12:00am doxycycline hyclate 100 mg oral capsule (5 sources) Tetracycline-class Drug Start: 019 End: take 1 capsule by mouth every twelve hours doxycycline hyclate (VIBRAMYCIN) 100 MG capsule Take 1 capsule by mouth every 12 hours for 7 days 14 capsule 0 05/05/2019 05/12/2019 Active Start: 04-01-2019 End: 04-11-2019 take 1 capsule by mouth twice daily doxycycline monohydrate (MONODOX) 100 MG capsule Take 1 capsule by mouth 2 times daily for 10 days 20 capsule 0 04/01/2019 04/11/2019 Active Start: 02-25-2019 End: 03-02-2019 take 1 capsule by mouth every twelve hours doxycycline hyclate (VIBRAMYCIN) 100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 Translations: [Obesity, class 3] Unclassified (4 sources) Patient encounter status 09-16-2024 Results Test Name Value Interpretation Reference Range Facility ARTERIAL BLOOD GASESon 03-19 Base excess Calc (Bld) [Moles/Vol] 5 mmol/L High 0-2 [facility] Comment on above: Order Comment: Speci men Type: ARTERIAL BLOOD SPECIMENOrdering Facility: [facility] Address: [address] [place] [address] Performed By: #### A LLBG ####[facility] LABCLIA [id number] [place] [address] [place] Body temperature 98.96 [degF] Normal [facility] Comment on above: Order Comment: Speci men Type: ARTERIAL BLOOD SPECIMENOrdering Facility: [facility] Address: [address] [place] [address] Performed By: #### A LLBG ####[facility] LABCLIA [id number] [place] [address] [place] Calcium.ionized (Bld) [Mass/Vol] 1.14 mmol/L Normal 1.08-1.30 [facility] Comment on above: Order Comment: Speci men Type: ARTERIAL BLOOD SPECIMENOrdering Facility: [facility] Address: [address] [place] [address] Performed By: #### A LLBG ####[facility] LABCLIA [id number] [place] [address] [place] Calcium.ionized adjusted to pH 7.4 (BldA) [Moles/Vol] 1.16 mmol/L Normal 1.08-1.30 [facility] Comment on above: Order Comment: Speci men Type: ARTERIAL BLOOD SPECIMENOrdering Facility: [facility] Address: [address] [place] [address] Performed By: #### A LLBG ####[facility] LABCLIA [id number] [place] [address] [place] Carboxyhemoglobin (BldA) [Mass fraction] 1.0 % Normal 0.0-2.0 [facility] Comment on above: Order Comment: Speci men Type: ARTERIAL BLOOD SPECIMENOrdering Facility: [facility] Address: [address] [place] [address] Result Comment: Carb oxyhemoglobin Reference Range for Smokers: 2.0-8.0% Performed By: #### A LLBG ####[facility] LABCLIA [id number] [place] [address] [place] CO2 (Bld) [Partial pressure] 47 mm Hg High 36-46 [facility] Comment on above: Order Comment: Speci men Type: ARTERIAL BLOOD SPECIMENOrdering Facility: [facility] Address: [address] [place] [address] Performed By: #### A LLBG ####[facility] LABCLIA [id number] [place] [address] [place] CO2 adjusted to patient's actual temperature (Bld) [Partial pressure] 47 mmHg High 36-46 [facility] Comment on above: Order Comment: Speci men Type: ARTERIAL BLOOD SPECIMENOrdering Facility: [facility] Address: [address] [place] [address] Performed By: #### A LLBG ####[facility] LABCLIA [id number] [place] [address] [place] FIO2 40 % Normal [facility] Comment on above: Order Comment: Speci men Type: ARTERIAL BLOOD SPECIMENOrdering Facility: [facility] Address: [address] [place] [address] Performed By: #### A LLBG ####[facility] LABCLIA [id number] [place] [address] [place] Glucose [Mass/Vol] 141 mg/dL High 60-105 [facility] Comment on above: Order Comment: Speci men Type: ARTERIAL BLOOD SPECIMENOrdering Facility: [facility] Address: [address] [place] [address] Performed By: #### A LLBG ####[facility] LABCLIA [id number] [place] [address] [place] HCO3 (Bld) [Moles/Vol] 30 mmol/L High 22-26 [facility] Comment on above: Order Comment: Speci men Type: ARTERIAL BLOOD SPECIMENOrdering Facility: [facility] Address: [address] [place] [address] Performed By: #### A LLBG ####[facility] LABCLIA [id number] [place] [address] [place] Hematocrit (Bld) [Volume fraction] 36.1 % Normal 36.0-46.0 [facility] Comment on above: Order Comment: Speci men Type: ARTERIAL BLOOD SPECIMENOrdering Facility: [facility] Address: [address] [place] [address] Performed By: #### A LLBG ####[facility] LABCLIA [id number] [place] [address] [place] Hemoglobin (Bld) [Mass/Vol] 11.7 g/dL Normal 11.5-15.5 [facility] Comment on above: Order Comment: Speci men Type: ARTERIAL BLOOD SPECIMENOrdering Facility: [facility] Address: [address] [place] [address] Performed By: #### A LLBG ####[facility] LABCLIA [id number] [place] [address] [place] Lactate [Moles/Vol] 0.5 mmol/L Normal 0.5-2.2 [facility] Comment on above: Order Comment: Speci men Type: ARTERIAL BLOOD SPECIMENOrdering Facility: [facility] Address: [address] [place] [address] Performed By: #### A LLBG ####[facility] LABCLIA [id number] [place] [id number] [place] Methemoglobin (Bld) [Mass fraction] 0.9 % Normal 0.0-1.5 [facility] Comment on above: Order Comment: Speci men Type: ARTERIAL BLOOD SPECIMENOrdering Facility: [facility] Address: [address] [place] [address] Performed By: #### A LLBG ####[facility] LABCLIA [id number] [place] [address] [place] O2 THERAPY VENT=Ventilator Normal [facility] Comment on above: Order Comment: Speci men Type: ARTERIAL BLOOD SPECIMENOrdering Facility: [facility] Address: [address] [place] [address] Performed By: #### A LLBG ####[facility] LABCLIA [id number] [place] [address] [place] Oxygen (Bld) [Partial pressure] 85 mm Hg Normal 85-95 [facility] Comment on above: Order Comment: Speci men Type: ARTERIAL BLOOD SPECIMENOrdering Facility: [facility] Address: [address] [place] [address] Performed By: #### A LLBG ####[facility] LABCLIA [id number] [place] [address] [place] Oxygen adjusted to patient's actual temperature (Bld) [Partial pressure] 86 mmHg Normal 85-95 [facility] Comment on above: Order Comment: Speci men Type: ARTERIAL BLOOD SPECIMENOrdering Facility: [facility] Address: [address] [place] [id number] Performed By: #### A LLBG ####[facility] LABCLIA [id number] [place] [id number] [place] Oxyhemoglobin (BldA) [Mass fraction] 95 % Normal 95-98 [facility] Comment on above: Order Comment: Speci men Type: ARTERIAL BLOOD SPECIMENOrdering Facility: [facility] Address: [address] [place] [address] Performed By: #### A LLBG ####[facility] LABCLIA [id number] [place] [address] [place] pH (Bld) 7.42 [pH] Normal 7.35-7.45 [facility] Comment on above: Order Comment: Speci men Type: ARTERIAL BLOOD SPECIMENOrdering Facility: [facility] Address: [address] [place] [address] Performed By: #### A LLBG ####[facility] LABCLIA [id number] [place] [address] [place] pH adjusted to patient's actual temperature (Bld) 7.42 Normal 7.35-7.45 [facility] Comment on above: Order Comment: Speci men Type: ARTERIAL BLOOD SPECIMENOrdering Facility: [facility] Address: [address] [place] [address] Performed By: #### A LLBG ####[facility] LABCLIA [id number] [place] [address] [place] PO2 / FIO2 RATIO 213 mmHg Low >300 [place] Comment on above: Order Comment: Speci men Type: ARTERIAL BLOOD SPECIMENOrdering Facility: [facility] Address: [address] [place] [address] Performed By: #### A LLBG ####[facility] LABCLIA [id number] [place] [address] [place] Potassium [Moles/Vol] 4.1 mmol/L Normal 3.5-5.0 [facility] Comment on above: Order Comment: Speci men Type: ARTERIAL BLOOD SPECIMENOrdering Facility: [facility] Address: [address] [place] [address] Performed By: #### A LLBG ####[facility] LABCLIA [id number] [place] [address] [place] Sodium [Moles/Vol] 147 mmol/L High 136-144 [facility] Comment on above: Order Comment: Speci men Type: ARTERIAL BLOOD SPECIMENOrdering Facility: [facility] Address: [address] [place] [address] Performed By: #### A LLBG ####[facility] LABCLIA [id number] [place] [address] [place] Base excess Calc (Bld) [Moles/Vol] 3 mmol/L High 0-2 [facility] Comment on above: Order Comment: Speci men Type: ARTERIAL BLOOD SPECIMENOrdering Facility: [facility] Address: [address] [place] [address] Performed By: #### A LLBG ####[facility] LABCLIA [id number] [place] [address] [place] Body temperature 98.6 [degF] Normal [facility] Comment on above: Order Comment: Speci men Type: ARTERIAL BLOOD SPECIMENOrdering Facility: [facility] Address: [address] [place] [address] Performed By: #### A LLBG ####[facility] LABCLIA [id number] [place] [address] [place] Calcium.ionized (Bld) [Mass/Vol] 1.18 mmol/L Normal 1.08-1.30 [facility] Comment on above: Order Comment: Speci men Type: ARTERIAL BLOOD SPECIMENOrdering Facility: [facility] Address: [address] [place] [address] Performed By: #### A LLBG ####[facility] LABCLIA [id number] [place] [address] [place] Calcium.ionized adjusted to pH 7.4 (BldA) [Moles/Vol] 1.18 mmol/L Normal 1.08-1.30 [facility] Comment on above: Order Comment: Speci men Type: ARTERIAL BLOOD SPECIMENOrdering Facility: [facility] Address: [address] [place] [address] Performed By: #### A LLBG ####[facility] LABCLIA [id number] [place] [address] [place] Carboxyhemoglobin (BldA) [Mass fraction] 1.3 % Normal 0.0-2.0 [facility] Comment on above: Order Comment: Speci men Type: ARTERIAL BLOOD SPECIMENOrdering Facility: [facility] Address: [address] [place] [address] Result Comment: Carb oxyhemoglobin Reference Range for Smokers: 2.0-8.0% Performed By: #### A LLBG ####[facility] LABCLIA [id number] [place] [address] [place] CO2 (Bld) [Partial pressure] 46 mm Hg Normal 36-46 [facility] Comment on above: Order Comment: Speci men Type: ARTERIAL BLOOD SPECIMENOrdering Facility: [facility] Address: [address] [place] [address] Performed By: #### A LLBG ####[facility] LABCLIA [id number] [place] [address] [place] FIO2 40 % Normal [facility] Comment on above: Order Comment: Speci men Type: ARTERIAL BLOOD SPECIMENOrdering Facility: [facility] Address: [address] [place] [address] Performed By: #### A LLBG ####[facility] LABCLIA [id number] [place] [address] [place] Glucose [Mass/Vol] 89 mg/dL Normal 60-105 [facility] Comment on above: Order Comment: Speci men Type: ARTERIAL BLOOD SPECIMENOrdering Facility: [facility] Address: [address] [place] [address] Performed By: #### A LLBG ####[facility] LABCLIA [id number] [place] [address] [place] HCO3 (Bld) [Moles/Vol] 28 mmol/L High 22-26 [facility] Comment on above: Order Comment: Speci men Type: ARTERIAL BLOOD SPECIMENOrdering Facility: [facility] Address: [address] [place] [address] Performed By: #### A LLBG ####[facility] LABCLIA [id number] [place] [address] [place] Hematocrit (Bld) [Volume fraction] 33.5 % Low 36.0-46.0 [facility] Comment on above: Order Comment: Speci men Type: ARTERIAL BLOOD SPECIMENOrdering Facility: [facility] Address: [address] [place] [address] Performed By: #### A LLBG ####[facility] LABIA [id number] [place] [address] [place] Hemoglobin (Bld) [Mass/Vol] 10.9 g/dL Low 11.5-15.5 [facility] Comment on above: Order Comment: Speci men Type: ARTERIAL BLOOD SPECIMENOrdering Facility: [facility] Address: [address] [place] [address] Performed By: #### A LLBG ####[facility] LABCLIA [id number] [place] [address] [place] Lactate [Moles/Vol] 0.5 mmol/L Normal 0.5-2.2 [facility] Comment on above: Order Comment: Speci men Type: ARTERIAL BLOOD SPECIMENOrdering Facility: [facility] Address: [address] [place] [address] Performed By: #### A LLBG ####[facility] LABCLIA [id number] [place] [address] [place] Methemoglobin (Bld) [Mass fraction] 1.1 % Normal 0.0-1.5 [facility] Comment on above: Order Comment: Speci men Type: ARTERIAL BLOOD SPECIMENOrdering Facility: [facility] Address: [address] [place] [address] Performed By: #### A LLBG ####[facility] LABCLIA [id number] [place] [address] [place] O2 THERAPY VENT=Ventilator Normal [facility] Comment on above: Order Comment: Speci men Type: ARTERIAL BLOOD SPECIMENOrdering Facility: [facility] Address: [address] [place] [address] Performed By: #### A LLBG ####[facility] LABCLIA [id number] [place] [address] [place] Oxygen (Bld) [Partial pressure] 109 mm Hg High 85-95 [facility] Comment on above: Order Comment: Speci men Type: ARTERIAL BLOOD SPECIMENOrdering Facility: [facility] Address: [address] [place] [address] Performed By: #### A LLBG ####[facility] LABCLIA [id number] [address] [place] Oxyhemoglobin (BldA) [Mass fraction] 96 % Normal 95-98 [facility] Comment on above: Order Comment: Speci men Type: ARTERIAL BLOOD SPECIMENOrdering Facility: [facility] Address: [address] [place] [address] Performed By: #### A LLBG ####[facility] LABCLIA [id number] [place] [address] [place] PEEP/CPAP 8 cmH2O Normal [facility] Comment on above: Order Comment: Speci men Type: ARTERIAL BLOOD SPECIMENOrdering Facility: [facility] Address: [address] [place] [address] Performed By: #### A LLBG ####[facility] LABCLIA [id number] [place] [address] [place] pH (Bld) 7.40 [pH] Normal 7.35-7.45 [facility] Comment on above: Order Comment: Speci men Type: ARTERIAL BLOOD SPECIMENOrdering Facility: [facility] Address: [address] [place] [address] Performed By: #### A LLBG ####[facility] LABCLIA [id number] [place] [address] [place] PO2 / FIO2 RATIO 273 mmHg Low >300 [place] Comment on above: Order Comment: Speci men Type: ARTERIAL BLOOD SPECIMENOrdering Facility: [facility] Address: [address] [place] [address] Performed By: #### A LLBG ####[facility] LABCLIA [id number] [place] [address] [place] Potassium [Moles/Vol] 4.2 mmol/L Normal 3.5-5.0 [facility] Comment on above: Order Comment: Speci men Type: ARTERIAL BLOOD SPECIMENOrdering Facility: [facility] Address: [address] [place] [address] Performed By: #### A LLBG ####[facility] LABCLIA [id number] [place] [address] [place] Sodium [Moles/Vol] 146 mmol/L High 136-144 [facility] Comment on above: Order Comment: Speci men Type: ARTERIAL BLOOD SPECIMENOrdering Facility: [facility] Address: [address] [place] [address] Performed By: #### A LLBG ####[facility] LABCLIA [id number] [place] [address] [place] Base excess Calc (Bld) [Moles/Vol] 5 mmol/L High 0-2 [facility] Comment on above: Order Comment: Speci men Type: ARTERIAL BLOOD SPECIMENOrdering Facility: [facility] Address: [address] [place] [address] Performed By: #### A LLBG ####[facility] LABCLIA [id number] [place] [address] [place] Body temperature 98.42 [degF] Normal [facility] Comment on above: Order Comment: Speci men Type: ARTERIAL BLOOD SPECIMENOrdering Facility: [facility] Address: [address] [place] [address] Performed By: #### A LLBG ####[facility] LABCLIA [id number] [place] [address] [place] Calcium.ionized (Bld) [Mass/Vol] 1.16 mmol/L Normal 1.08-1.30 [facility] Comment on above: Order Comment: Speci men Type: ARTERIAL BLOOD SPECIMENOrdering Facility: [facility] Address: [address] [place] [address] Performed By: #### A LLBG ####[facility] LABCLIA [id number] [place] [address] [place] Calcium.ionized adjusted to pH 7.4 (BldA) [Moles/Vol] 1.18 mmol/L Normal 1.08-1.30 [facility] Comment on above: Order Comment: Speci men Type: ARTERIAL BLOOD SPECIMENOrdering Facility: [facility] Address: [address] [place] [address] Performed By: #### A LLBG ####[facility] LABCLIA [id number] [place] [address] [place] Carboxyhemoglobin (BldA) [Mass fraction] 0.8 % Normal 0.0-2.0 [facility] Comment on above: Order Comment: Speci men Type: ARTERIAL BLOOD SPECIMENOrdering Facility: [facility] Address: [address] [place] [address] Performed By: #### A LLBG ####[facility] LABCLIA [id number] [place] [address] [place] CO2 (Bld) [Partial pressure] 45 mm Hg Normal 36-46 [facility] Comment on above: Order Comment: Speci men Type: ARTERIAL BLOOD SPECIMENOrdering Facility: [facility] Address: [address] [place] [address] Performed By: #### A LLBG ####[facility] LABCLIA [id number] [place] [address] [place] CO2 adjusted to patient's actual temperature (Bld) [Partial pressure] 45 mmHg Normal 36-46 [facility] Comment on above: Order Comment: Speci men Type: ARTERIAL BLOOD SPECIMENOrdering Facility: [facility] Address: [address] [place] [address] Performed By: #### A LLBG ####[facility] LABCLIA [id number] [place] [address] [place] FIO2 60 % Normal [facility] Comment on above: Order Comment: Speci men Type: ARTERIAL BLOOD SPECIMENOrdering Facility: [facility] Address: [address] [place] [address] Performed By: #### A LLBG ####[facility] LABCLIA [id number] [place] [address] [place] Glucose [Mass/Vol] 101 mg/dL Normal 60-105 [facility] Comment on above: Order Comment: Speci men Type: ARTERIAL BLOOD SPECIMENOrdering Facility: [facility] Address: [address] [place] [address] Performed By: #### A LLBG ####[facility] LABCLIA [id number] [place] [address] [place] HCO3 (Bld) [Moles/Vol] 30 mmol/L High 22-26 [facility] Comment on above: Order Comment: Speci men Type: ARTERIAL BLOOD SPECIMENOrdering Facility: [facility] Address: [address] [place] [address] Performed By: #### A LLBG ####[facility] LABCLIA [id number] [place] [address] [place] Hematocrit (Bld) [Volume fraction] 33.9 % Low 36.0-46.0 [facility] Comment on above: Order Comment: Speci men Type: ARTERIAL BLOOD SPECIMENOrdering Facility: [facility] Address: [address] [place] [address] Performed By: #### A LLBG ####[facility] LABCLIA [id number] [place] [address] [place] Hemoglobin (Bld) [Mass/Vol] 11.0 g/dL Low 11.5-15.5 [facility] Comment on above: Order Comment: Speci men Type: ARTERIAL BLOOD SPECIMENOrdering Facility: [facility] Address: [address] [place] [address] Performed By: #### A LLBG ####[facility] LABCLIA [id number] [place] [address] [place] Lactate [Moles/Vol] 0.6 mmol/L Normal 0.5-2.2 [facility] Comment on above: Order Comment: Speci men Type: ARTERIAL BLOOD SPECIMENOrdering Facility: [facility] Address: [address] [place] [address] Performed By: #### A LLBG ####[facility] LABCLIA [id number] [place] [address] [place] Methemoglobin (Bld) [Mass fraction] 1.0 % Normal 0.0-1.5 [facility] Comment on above: Order Comment: Speci men Type: ARTERIAL BLOOD SPECIMENOrdering Facility: [facility] Address: [address] [place] [address] Performed By: #### A LLBG ####[facility] LABCLIA [id number] [place] [address] [place] [place] O2 THERAPY VENT=Ventilator Normal [facility] Comment on above: Order Comment: Speci men Type: ARTERIAL BLOOD SPECIMENOrdering Facility: [facility] Address: [address] [place] [address] Performed By: #### A LLBG ####[facility] LABCLIA [id number] [place] [address] [place] Oxygen (Bld) [Partial pressure] 157 mm Hg High 85-95 [facility] Comment on above: Order Comment: Speci men Type: ARTERIAL BLOOD SPECIMENOrdering Facility: [facility] Address: [address] [place] [address] Performed By: #### A LLBG ####[facility] LABCLIA [id number] [place] [address] [place] Oxygen adjusted to patient's actual temperature (Bld) [Partial pressure] 157 mmHg High 85-95 [facility] Comment on above: Order Comment: Speci men Type: ARTERIAL BLOOD SPECIMENOrdering Facility: [facility] Address: [address] [place] [address] Performed By: #### A LLBG ####[facility] LABCLIA [id number] [place] [address] [place] Oxyhemoglobin (BldA) [Mass fraction] 97 % Normal 95-98 [facility] Comment on above: Order Comment: Speci men Type: ARTERIAL BLOOD SPECIMENOrdering Facility: [facility] Address: [address] [place] [address] Performed By: #### A LLBG ####[facility] LABCLIA [id number] [place] [address] [place] PEEP/CPAP 10 cmH2O Normal [facility] Comment on above: Order Comment: Speci men Type: ARTERIAL BLOOD SPECIMENOrdering Facility: [facility] Address: [address] [place] [address] Performed By: #### A LLBG ####[facility] LABCLIA [id number] [place] [address] [place] pH (Bld) 7.43 [pH] Normal 7.35-7.45 [facility] Comment on above: Order Comment: Speci men Type: ARTERIAL BLOOD SPECIMENOrdering Facility: [facility] Address: [address] [place] [address] Performed By: #### A LLBG ####[facility] LABCLIA [id number] [place] [address] [place] pH adjusted to patient's actual temperature (Bld) 7.44 Normal 7.35-7.45 [facility] Comment on above: Order Comment: Speci men Type: ARTERIAL BLOOD SPECIMENOrdering Facility: [facility] Address: [address] [place] [address] Performed By: #### A LLBG ####[facility] LABCLIA [id number] [place] [address] [place] PO2 / FIO2 RATIO 262 mmHg Low >300 [place] Comment on above: Order Comment: Speci men Type: ARTERIAL BLOOD SPECIMENOrdering Facility: [facility] Address: [address] [place] [address] Performed By: #### A LLBG ####[facility] LABCLIA [id number] [place] [address] [place] Potassium [Moles/Vol] 3.9 mmol/L Normal 3.5-5.0 [facility] Comment on above: Order Comment: Speci men Type: ARTERIAL BLOOD SPECIMENOrdering Facility: [facility] Address: [address] [place] [address] Performed By: #### A LLBG ####[facility] LABCLIA [id number] [place] [address] [place] Sodium [Moles/Vol] 144 mmol/L Normal 136-144 [facility] Comment on above: Order Comment: Speci men Type: ARTERIAL BLOOD SPECIMENOrdering Facility: [facility] Address: [address] [place] [address] Performed By: #### A LLBG ####[facility] LABCLIA [id number] [place] [address] [place] Base excess Calc (Bld) [Moles/Vol] 4 mmol/L High 0-2 [facility] Comment on above: Order Comment: Speci men Type: ARTERIAL BLOOD SPECIMENOrdering Facility: [facility] Address: [address] [place] [address] Performed By: #### A LLBG ####[facility] LABCLIA [id number] [place] [address] [place] Body temperature 98.6 [degF] Normal [facility] Comment on above: Order Comment: Speci men Type: ARTERIAL BLOOD SPECIMENOrdering Facility: [facility] Address: [address] [place] [address] Performed By: #### A LLBG ####[facility] LABCLIA [id number] [place] [address] [place] Calcium.ionized (Bld) [Mass/Vol] 1.16 mmol/L Normal 1.08-1.30 [facility] Comment on above: Order Comment: Speci men Type: ARTERIAL BLOOD SPECIMENOrdering Facility: [facility] Address: [address] [place] [address] Performed By: #### A LLBG ####[facility] LABCLIA [id number] [place] [address] [place] Calcium.ionized adjusted to pH 7.4 (BldA) [Moles/Vol] 1.19 mmol/L Normal 1.08-1.30 [facility] Comment on above: Order Comment: Speci men Type: ARTERIAL BLOOD SPECIMENOrdering Facility: [facility] Address: [address] [place] [address] Performed By: #### A LLBG ####[facility] LABIA [id number] [place] [address] [place] Carboxyhemoglobin (BldA) [Mass fraction] 0.8 % Normal 0.0-2.0 [facility] Comment on above: Order Comment: Speci men Type: ARTERIAL BLOOD SPECIMENOrdering Facility: [facility] Address: [address] [place] [address] Result Comment: Carb oxyhemoglobin Reference Range for Smokers: 2.0-8.0% Performed By: #### A LLBG ####[facility] LABCLIA [id number] [place] [address] [place] CO2 (Bld) [Partial pressure] 41 mm Hg Normal 36-46 [facility] Comment on above: Order Comment: Speci men Type: ARTERIAL BLOOD SPECIMENOrdering Facility: [facility] Address: [address] [place] [address] Performed By: #### A LLBG ####[facility] LABCLIA [id number] [place] [address] [place] FIO2 60 % Normal [facility] Comment on above: Order Comment: Speci men Type: ARTERIAL BLOOD SPECIMENOrdering Facility: [facility] Address: [address] [place] [address] Performed By: #### A LLBG ####[facility] LABCLIA [id number] [place] [address] [place] Glucose [Mass/Vol] 196 mg/dL High 60-105 [facility] Comment on above: Order Comment: Speci men Type: ARTERIAL BLOOD SPECIMENOrdering Facility: [facility] Address: [address] [place] [address] Performed By: #### A LLBG ####[facility] LABCLIA [id number] [place] [address] [place] HCO3 (Bld) [Moles/Vol] 28 mmol/L High 22-26 [facility] Comment on above: Order Comment: Speci men Type: ARTERIAL BLOOD SPECIMENOrdering Facility: [facility] Address: [address] [place] [address] Performed By: #### A LLBG ####[facility] LABCLIA [id number] [place] [address] [place] Hematocrit (Bld) [Volume fraction] 35.0 % Low 36.0-46.0 [facility] Comment on above: Order Comment: Speci men Type: ARTERIAL BLOOD SPECIMENOrdering Facility: [facility] Address: [address] [place] [address] Performed By: #### A LLBG ####[facility] LABCLIA [id number] [place] [address] [place] Hemoglobin (Bld) [Mass/Vol] 11.4 g/dL Low 11.5-15.5 [facility] Comment on above: Order Comment: Speci men Type: ARTERIAL BLOOD SPECIMENOrdering Facility: [facility] Address: [address] [place] [address] Performed By: #### A LLBG ####[facility] LABCLIA [id number] [place] [address] [place] Lactate [Moles/Vol] 1.0 mmol/L Normal 0.5-2.2 [facility] Comment on above: Order Comment: Speci men Type: ARTERIAL BLOOD SPECIMENOrdering Facility: [facility] Address: [address] [place] [address] Performed By: #### A LLBG ####[facility] LABCLIA [id number] [place] [id number] [place] Methemoglobin (Bld) [Mass fraction] 1.2 % Normal 0.0-1.5 [facility] Comment on above: Order Comment: Speci men Type: ARTERIAL BLOOD SPECIMENOrdering Facility: [facility] Address: [address] [place] [address] Performed By: #### A LLBG ####[facility] LABCLIA [id number] [place] [address] [place] O2 THERAPY VENT=Ventilator Normal [facility] Comment on above: Order Comment: Speci men Type: ARTERIAL BLOOD SPECIMENOrdering Facility: [facility] Address: [address] [place] [address] Performed By: #### A LLBG ####[facility] LABCLIA [id number] [place] [address] [place] Oxygen (Bld) [Partial pressure] 132 mm Hg High 85-95 [facility] Comment on above: Order Comment: Speci men Type: ARTERIAL BLOOD SPECIMENOrdering Facility: [facility] Address: [address] [place] [address] Performed By: #### A LLBG ####[facility] LABCLIA [id number] [place] [id number] [place] Oxyhemoglobin (BldA) [Mass fraction] 97 % Normal 95-98 [facility] Comment on above: Order Comment: Speci men Type: ARTERIAL BLOOD SPECIMENOrdering Facility: [facility] Address: [address] [place] [address] Performed By: #### A LLBG ####[facility] LABCLIA [id number] [place] PEEP/CPAP 10 cmH2O Normal [facility] Comment on above: Order Comment: Speci men Type: ARTERIAL BLOOD SPECIMENOrdering Facility: [facility] Address: [address] [place] [address] Performed By: #### A LLBG ####[facility] LABCLIA [id number] [place] [address] [place] pH (Bld) 7.44 [pH] Normal 7.35-7.45 [facility] Comment on above: Order Comment: Speci men Type: ARTERIAL BLOOD SPECIMENOrdering Facility: [facility] Address: [address] [place] [address] Performed By: #### A LLBG ####[facility] LABCLIA [id number] [place] [address] [place] PO2 / FIO2 RATIO 220 mmHg Low >300 [place] Comment on above: Order Comment: Speci men Type: ARTERIAL BLOOD SPECIMENOrdering Facility: [facility] Address: [address] [place] [address] Performed By: #### A LLBG ####[facility] LABCLIA [id number] [place] [address] [place] Potassium [Moles/Vol] 3.8 mmol/L Normal 3.7-5.1 [facility] Comment on above: Order Comment: Speci men Type: ARTERIAL BLOOD SPECIMENOrdering Facility: [facility] Address: [address] [place] [address] Performed By: #### A LLBG ####[facility] LABCLIA [id number] [place] [address] [place] Order Comment: Speci men Type: BLOOD SPECIMENOrdering Facility: [facility] Address: [address] [place] [address] Performed By: #### 2 4323-8, 2777-1 ####[facility] LABCLIA [id number] [place] [address] [place] Sodium [Moles/Vol] 141 mmol/L Normal 136-144 [facility] Comment on above: Order Comment: Speci men Type: ARTERIAL BLOOD SPECIMENOrdering Facility: [facility] Address: [address] [place] [address] Performed By: #### A LLBG ####[facility] LABCLIA [id number] [place] [address] [place] CASE MGT INIT ASSESon 2024 CASE MGT INIT ASSES Normal [facility] CBC panel Auto (Bld)on 03-19 Erythrocyte distribution width (RBC) [Ratio] 16.5 % High 11.5-15.0 [facility] Comment on above: Order Comment: Speci men Type: BLOOD SPECIMENOrdering Facility: [facility] Address: [address] [place] [address] Performed By: #### 5 8410-2 ####[facility] LABCLIA [id number] [place] [address] [place] Hematocrit (Bld) [Volume fraction] 35.5 % Low 36.0-46.0 [facility] Comment on above: Order Comment: Speci men Type: BLOOD SPECIMENOrdering Facility: [facility] Address: [address] [place] [address] Performed By: #### 5 8410-2 ####[facility] LABCLIA [id number] [place] [address] [place] Hemoglobin (Bld) [Mass/Vol] 11.0 g/dL Low 11.5-15.5 [facility] Comment on above: Order Comment: Speci men Type: BLOOD SPECIMENOrdering Facility: [facility] Address: [address] [place] [address] Performed By: #### 5 8410-2 ####[facility] LABCLIA [id number] [place] [address] [place] MCH (RBC) [Entitic mass] 23.0 pg Low 26.0-34.0 [facility] Comment on above: Order Comment: Speci men Type: BLOOD SPECIMENOrdering Facility: [facility] Address: [address] [place] [address] Performed By: #### 5 8410-2 ####[facility] LABCLIA [id number] [address] [place] MCHC (RBC) [Mass/Vol] 31.0 g/dL Normal 30.5-36.0 [facility] Comment on above: Order Comment: Speci men Type: BLOOD SPECIMENOrdering Facility: [facility] Address: [address] [place] [address] Performed By: #### 5 8410-2 ####[facility] LABCLIA [id number] [place] [address] [place] MCV (RBC) [Entitic vol] 74.1 fL Low 80.0-100.0 [facility] Comment on above: Order Comment: Speci men Type: BLOOD SPECIMENOrdering Facility: [facility] Address: [address] [place] [address] Performed By: #### 5 8410-2 ####[facility] LABCLIA [id number] [place] [address] [place] Nucleated RBC (Bld) [#/Vol] 0.02 10*3/uL High <0.01 [facility] Comment on above: Order Comment: Speci men Type: BLOOD SPECIMENOrdering Facility: [facility] Address: [address] [place] [address] Performed By: #### 5 8410-2 ####[facility] LABCLIA [id number] [place] [address] [place] Platelet mean volume (Bld) [Entitic vol] 10.1 fL Normal 9.0-12.7 [facility] Comment on above: Order Comment: Speci men Type: BLOOD SPECIMENOrdering Facility: [facility] Address: [address] [place] [address] Performed By: #### 5 8410-2 ####[facility] LABCLIA [id number] [place] [address] [place] Platelets (Bld) [#/Vol] 184 10*3/uL Normal 150-400 [facility] Comment on above: Order Comment: Speci men Type: BLOOD SPECIMENOrdering Facility: [facility] Address: [address] [place] [address] Performed By: #### 5 8410-2 ####[facility] LABCLIA [id number] [place] [address] [place] RBC (Bld) [#/Vol] 4.79 10*6/uL Normal 3.90-5.20 [facility] Comment on above: Order Comment: Speci men Type: BLOOD SPECIMENOrdering Facility: [facility] Address: [address] [place] [address] Performed By: #### 5 8410-2 ####[facility] LABCLIA [id number] [place] [address] [place] WBC (Bld) [#/Vol] 5.74 10*3/uL Normal 3.70-11.00 [facility] Comment on above: Order Comment: Speci men Type: BLOOD SPECIMENOrdering Facility: [facility] Address: [address] [place] [address] Performed By: #### 5 8410-2 ####[facility] LABCLIA [id number] [place] [address] [place] Comprehensive metabolic 2000 panelon 03-19-2025 Albumin [Mass/Vol] 3.8 g/dL Low 3.9-4.9 [facility] Comment on above: Order Comment: Speci men Type: BLOOD SPECIMENOrdering Facility: [facility] Address: [address] [place] [address] Performed By: #### 2 4323-8, 2777-1 ####[facility] LABCLIA [id number] [place] [address] [place] ALP [Catalytic activity/Vol] 53 U/L Normal 34-123 [facility] Comment on above: Order Comment: Speci men Type: BLOOD SPECIMENOrdering Facility: [facility] Address: [address] [place] [address] Performed By: #### 2 4323-8, 2776-05 ####[facility] LABCLIA [id number] [place] [address] [place] ALT [Catalytic activity/Vol] 26 U/L Normal 7-38 [facility] Comment on above: Order Comment: Speci men Type: BLOOD SPECIMENOrdering Facility: [facility] Address: [address] [place] [address] Performed By: #### 2 4323-8, 2776-05 ####[facility] LABCLIA [id number] [place] [address] [place] Anion gap [Moles/Vol] 10 mmol/L Normal 8-15 [facility] Comment on above: Order Comment: Speci men Type: BLOOD SPECIMENOrdering Facility: [facility] Address: [address] [place] [address] Performed By: #### 2 4323-8, 2776-05 ####[facility] LABCLIA [id number] [place] [address] [place] AST [Catalytic activity/Vol] 35 U/L Normal 13-35 [facility] Comment on above: Order Comment: Speci men Type: BLOOD SPECIMENOrdering Facility: [facility] Address: [address] [place] [address] Performed By: #### 2 4323-8, 2776-05 ####[facility] LABCLIA [id number] [place] [address] [place] Bilirubin [Mass/Vol] 0.5 mg/dL Normal 0.2-1.3 [facility] Comment on above: Order Comment: Speci men Type: BLOOD SPECIMENOrdering Facility: [facility] Address: [address] [place] [address] Performed By: #### 2 4323-8, 277- ####[facility] LABCLIA [id number] [place] [address] [place] Calcium [Mass/Vol] 8.6 mg/dL Normal 8.5-10.2 [facility] Comment on above: Order Comment: Speci men Type: BLOOD SPECIMENOrdering Facility: [facility] Address: [address] [place] [address] Performed By: #### 2 4323-8, 2777- ####[facility] LABCLIA [id number] [place] [address] [place] Chloride [Moles/Vol] 105 mmol/L Normal 98-107 [facility] Comment on above: Order Comment: Speci men Type: BLOOD SPECIMENOrdering Facility: [facility] Address: [address] [place] [address] Performed By: #### 2 4323-8, 277- ####[facility] LABCLIA [id number] [place] [address] [place] CO2 [Moles/Vol] 27 mmol/L Normal 22-30 [facility] Comment on above: Order Comment: Speci men Type: BLOOD SPECIMENOrdering Facility: [facility] Address: [address] [place] [address] Performed By: #### 2 4323-8, 27711-05 ####[facility] LABCLIA [id number] [place] [address] [place] Creatinine [Mass/Vol] 0.62 mg/dL Normal 0.58-0.96 [facility] Comment on above: Order Comment: Speci men Type: BLOOD SPECIMENOrdering Facility: [facility] Address: [address] [place], [place] [address] Performed By: #### 2 4323-8, 2777- ####[facility] LABCLIA [id number] [place] [id number] [place] eGFRcr SerPlBld CKD-EPI 2020 122 mL/min/1.73m??? Normal >=60 [facility] Comment on above: Order Comment: Speci men Type: BLOOD SPECIMENOrdering Facility: [facility] Address: [address] [place] [address] Result Comment: Vi mated Glomerular Filtration Rate (eGFR) is calculated using the 2020 CKD-EPI creatinine equation. This equation utilizes serum creatinine, sex, and age as parameters. The creatinine assay has traceable calibration to isotope dilution-mass spectrometry. Refer to KDIGO guidelines for clinical interpretation. In patients with unstable renal function, e.g. those with acute kidney injury, the eGFR may not accurately reflect actual GFR. Performed By: #### 2 4323-8, 27711-05 ####[facility] LABCLIA [id number] [place] [address] [place] Glucose [Mass/Vol] 192 mg/dL High 74-99 [facility] Comment on above: Order Comment: Michele ash Type: BLOOD SPECIMENOrdering Facility: [facility] Address: [address] [place] [address] Result Comment: The [place] [employer] (ADA) provides guidance for cutoff values for fasting glucose and random glucose. The ADA defines fasting as no caloric intake for at least 8 hours. Fasting plasma glucose results between 100 to 125 mg/dL indicate increased risk for diabetes (prediabetes).Fasting plasma glucose results greater than or equal to 126 mg/dL meet the criteria for diagnosis of diabetes. In the absence of unequivocal hyperglycemia, results should be confirmed by repeat testing. In a patient with classic symptoms of hyperglycemia or hyperglycemic crisis, random plasma glucose results greater than or equal to 200 mg/dL meet the criteria for diagnosis of diabetes.Reference: Standards of Medical Care in Diabetes 2016, [place] [employer]. Diabetes Care. 2016.39(Suppl 1). Performed By: #### 2 4323-8, 27711-05 ####[facility] LABCLIA [id number] [place] [id number] [place] Protein [Mass/Vol] 5.2 g/dL Low 6.3-8.0 [facility] Comment on above: Order Comment: Michele ash Type: BLOOD SPECIMENOrdering Facility: [facility] Address: [address] [place] [address] Performed By: #### 2 4323-8, 277-1 ####[facility] LABCLIA [id number] [place] [address] [place] Sodium [Moles/Vol] 142 mmol/L Normal 136-144 [facility] Comment on above: Order Comment: Michele ash Type: BLOOD SPECIMENOrdering Facility: [facility] Address: [address] [place] [place] [address] Performed By: #### 2 4323-8, 2777-1 ####[facility] LABCLIA [id number] [place] [address] [place] Urea nitrogen [Mass/Vol] 7 mg/dL Normal 7-21 [facility] Comment on above: Order Comment: Michele ash Type: BLOOD SPECIMENOrdering Facility: [facility] Address: [address] [place] [address] Performed By: #### 2 4323-8, 2777-1 ####[facility] LABCLIA [id number] [address] [place] PT panel Coag (PPP)on 2024 INR Coag (PPP) [Relative time] 1.0 {INR} Normal 0.9-1.3 [facility] Comment on above: Order Comment: Michele ash Type: BLOOD SPECIMENOrdering Facility: [facility] Address: [address] [place] [address] Result Comment: Jennifer min K Antagonist (VKA) Therapeutic Range: INR 2 to 3 (Target INR of 2.5)Note: For patients treated with VKA drugs, such as warfarin, the [place] [employer] 2012 Guideline recommends a therapeutic INR range of 2 to 3 (target INR of 2.5). This recommendation includes high-risk patients with antiphospholipid syndrome with previous arterial or venous thromboembolism, current-generation mechanical or bioprosthetic aortic heart valve replacement.Note: Patients with mechanical aortic valve replacement and additional risk factors for thromboembolic events (atrial fibrillation, previous thromboembolism, LV dysfunction, hypercoagulable conditions) or an older generation mechanical AVR (i.e., ball in-Cage) or any mechanical MVR should have a INR therapeutic range of 2.5 to 3.5 (target INR of 3).Noman GH, et al. Chest 2012, 141:7S-47SNishimdon RA, et al. [facility] 2017, 70: 252-289 Performed By: #### 3 4528-0, 62846-2 ####[facility] LABCLIA [id number] [place] [address] [place] PT Coag (PPP) [Time] 10.7 s Normal 9.7-13.0 [facility] Comment on above: Order Comment: Speci men Type: BLOOD SPECIMENOrdering Facility: [facility] Address: [address] [place] [address] Performed By: #### 3 4528-0, 74327-9 ####[facility] LABCLIA [id number] [place] [id number] [place] Phosphate SerPl-mCncon 03-19 Phosphate [Mass/Vol] 1.0 mg/dL Low 2.7-4.8 [facility] Comment on above: Order Comment: Speci men Type: BLOOD SPECIMENOrdering Facility: [facility] Address: [address] [place] [address] Result Comment: Resu lt rechecked. Performed By: #### 2 4323-8, 2777-1 ####[facility] LABCLIA [id number] [address] [place] THERAPY NTon 03-19-2025 THERAPY NT Normal [facility] XR ABDOMEN 1V SUPINEon 03-19 XR ABDOMEN 1V SUPINE Normal [facility] XR CHEST 1V FRONTAL PORTon 1 05-19-2024 XR CHEST 1V FRONTAL PORT Normal [facility] aPTT PPPon 03-19-2025 aPTT Coag (PPP) [Time] 25.6 s Normal 23.0-32.4 [facility] Comment on above: Order Comment: Speci men Type: BLOOD SPECIMENOrdering Facility: [facility] Address: [address] [place] [address] Performed By: #### 3 4528-0, 70124-1 ####[facility] LABCLIA [id number] [place] [address] [place] ANES POSTPROC EVALon 025 ANES POSTPROC EVAL Normal [facility] ANES PRE-OPon 03-18-2025 ANES PRE-OP Normal [facility] ARTERIAL BLOOD GASESon 03-18 Base excess Calc (Bld) [Moles/Vol] 1 mmol/L Normal 0-2 [facility] Comment on above: Order Comment: Speci men Type: ARTERIAL BLOOD SPECIMENOrdering Facility: [facility] Address: [address] [place] [address] Performed By: #### A LLBG ####[facility] LABIA [id number] [place] [address] [place] Body temperature 97.7 [degF] Normal [facility] Comment on above: Order Comment: Speci men Type: ARTERIAL BLOOD SPECIMENOrdering Facility: [facility] Address: [address] [place] [address] Performed By: #### A LLBG ####[facility] LABIA [id number] [place] [address] [place] Calcium.ionized (Bld) [Mass/Vol] 1.14 mmol/L Normal 1.08-1.30 [facility] Comment on above: Order Comment: Speci men Type: ARTERIAL BLOOD SPECIMENOrdering Facility: [facility] Address: [address] [place] [address] Performed By: #### A LLBG ####[facility] LABCLIA [id number] [place] [address] [place] Calcium.ionized adjusted to pH 7.4 (BldA) [Moles/Vol] 1.13 mmol/L Normal 1.08-1.30 [facility] Comment on above: Order Comment: Speci men Type: ARTERIAL BLOOD SPECIMENOrdering Facility: [facility] Address: [address] [place] [address] Performed By: #### A LLBG ####[facility] LABCLIA [id number] [place] [address] [place] Carboxyhemoglobin (BldA) [Mass fraction] 1.3 % Normal 0.0-2.0 [facility] Comment on above: Order Comment: Speci men Type: ARTERIAL BLOOD SPECIMENOrdering Facility: [facility] Address: [address] [place] [address] Result Comment: Carb oxyhemoglobin Reference Range for Smokers: 2.0-8.0% Performed By: #### A LLBG ####[facility] LABCLIA [id number] [place] [address] [place] CO2 (Bld) [Partial pressure] 44 mm Hg Normal 36-46 [facility] Comment on above: Order Comment: Speci men Type: ARTERIAL BLOOD SPECIMENOrdering Facility: [facility] Address: [address] [place] [address] Performed By: #### A LLBG ####[facility] LABCLIA [id number] [place] [address] [place] CO2 adjusted to patient's actual temperature (Bld) [Partial pressure] 43 mmHg Normal 36-46 [facility] Comment on above: Order Comment: Speci men Type: ARTERIAL BLOOD SPECIMENOrdering Facility: [facility] Address: [address] [place] [address] Performed By: #### A LLBG ####[facility] LABCLIA [id number] [place] [address] [place] FIO2 60 % Normal [facility] Comment on above: Order Comment: Speci men Type: ARTERIAL BLOOD SPECIMENOrdering Facility: [facility] Address: [address] [place] [address] Performed By: #### A LLBG ####[facility] LABCLIA [id number] [place] [id number] [place] Glucose [Mass/Vol] 252 mg/dL High 60-105 [facility] Comment on above: Order Comment: Speci men Type: ARTERIAL BLOOD SPECIMENOrdering Facility: [facility] Address: [address] [place] [address] Performed By: #### A LLBG ####[facility] LABCLIA [id number] [place] [address] [place] HCO3 (Bld) [Moles/Vol] 26 mmol/L Normal 22-26 [facility] Comment on above: Order Comment: Speci men Type: ARTERIAL BLOOD SPECIMENOrdering Facility: [facility] Address: [address] [place] [address] Performed By: #### A LLBG ####[facility] LABCLIA [id number] [place] [address] [place] Hematocrit (Bld) [Volume fraction] 36.6 % Normal 36.0-46.0 [facility] Comment on above: Order Comment: Speci men Type: ARTERIAL BLOOD SPECIMENOrdering Facility: [facility] Address: [address] [place] [address] Performed By: #### A LLBG ####[facility] LABCLIA [id number] [place] [address] [place] Hemoglobin (Bld) [Mass/Vol] 11.9 g/dL Normal 11.5-15.5 [facility] Comment on above: Order Comment: Speci men Type: ARTERIAL BLOOD SPECIMENOrdering Facility: [facility] Address: [address] [place] [address] Performed By: #### A LLBG ####[facility] LABCLIA [id number] [place] [address] [place] Lactate [Moles/Vol] 3.0 mmol/L High 0.5-2.2 [facility] Comment on above: Order Comment: Speci men Type: ARTERIAL BLOOD SPECIMENOrdering Facility: [facility] Address: [address] [place] [address] Performed By: #### A LLBG ####[facility] LABCLIA [id number] [place] [address] [place] Methemoglobin (Bld) [Mass fraction] 2.0 % High 0.0-1.5 [facility] Comment on above: Order Comment: Speci men Type: ARTERIAL BLOOD SPECIMENOrdering Facility: [facility] Address: [address] [place] [address] Performed By: #### A LLBG ####[facility] LABCLIA [id number] [place] [id number] [place] O2 THERAPY VENT=Ventilator Normal [facility] Comment on above: Order Comment: Speci men Type: ARTERIAL BLOOD SPECIMENOrdering Facility: [facility] Address: [address] [place] [address] Performed By: #### A LLBG ####[facility] LABCLIA [id number] [place] [address] [place] Oxygen (Bld) [Partial pressure] 96 mm Hg High 85-95 [facility] Comment on above: Order Comment: Speci men Type: ARTERIAL BLOOD SPECIMENOrdering Facility: [facility] Address: [address] [place] [address] Performed By: #### A LLBG ####[facility] LABCLIA [id number] [place] [address] [place] Oxygen adjusted to patient's actual temperature (Bld) [Partial pressure] 93 mmHg Normal 85-95 [facility] Comment on above: Order Comment: Speci men Type: ARTERIAL BLOOD SPECIMENOrdering Facility: [facility] Address: [address] [place] [address] Performed By: #### A LLBG ####[facility] LABCLIA [id number] [place] [id number] [place] Oxyhemoglobin (BldA) [Mass fraction] 94 % Low 95-98 [facility] Comment on above: Order Comment: Speci men Type: ARTERIAL BLOOD SPECIMENOrdering Facility: [facility] Address: [address] [place], [place] [id number] Performed By: #### A LLBG ####[facility] LABCLIA [id number] [place] [id number] [place] PEEP/CPAP 10 cmH2O Normal [facility] Comment on above: Order Comment: Speci men Type: ARTERIAL BLOOD SPECIMENOrdering Facility: [facility] Address: [address] [place] [address] Performed By: #### A LLBG ####[facility] LABCLIA [id number] [place] [address] [place] pH (Bld) 7.38 [pH] Normal 7.35-7.45 [facility] Comment on above: Order Comment: Speci men Type: ARTERIAL BLOOD SPECIMENOrdering Facility: [facility] Address: [address] [place] [address] Performed By: #### A LLBG ####[facility] LABCLIA [id number] [place] [address] [place] pH adjusted to patient's actual temperature (Bld) 7.39 Normal 7.35-7.45 [facility] Comment on above: Order Comment: Speci men Type: ARTERIAL BLOOD SPECIMENOrdering Facility: [facility] Address: [address] [place] [address] Performed By: #### A LLBG ####[facility] LABCLIA [id number] [place] [address] [place] PO2 / FIO2 RATIO 160 mmHg Low >300 [place] Comment on above: Order Comment: Speci men Type: ARTERIAL BLOOD SPECIMENOrdering Facility: [facility] Address: [address] [place] [address] Performed By: #### A LLBG ####[facility] LABCLIA [id number] [place] [address] [place] Potassium [Moles/Vol] 3.8 mmol/L Normal 3.5-5.0 [facility] Comment on above: Order Comment: Speci men Type: ARTERIAL BLOOD SPECIMENOrdering Facility: [facility] Address: [address] [place] [address] Performed By: #### A LLBG ####[facility] LABCLIA [id number] [place] [address] [place] Sodium [Moles/Vol] 139 mmol/L Normal 136-144 [facility] Comment on above: Order Comment: Speci men Type: ARTERIAL BLOOD SPECIMENOrdering Facility: [facility] Address: [address] [place] [address] Performed By: #### A LLBG ####[facility] LABCLIA [id number] [place] [address] [place] Base deficit (BldA) [Moles/Vol] -2 mmol/L Normal -2-0 [facility] Comment on above: Order Comment: Speci men Type: ARTERIAL BLOOD SPECIMENOrdering Facility: [facility] Address: [address] [place] [address] Performed By: #### A LLBG ####[facility] LABCLIA [id number] [place] [address] [place] Body temperature 98.6 [degF] Normal [facility] Comment on above: Order Comment: Speci men Type: ARTERIAL BLOOD SPECIMENOrdering Facility: [facility] Address: [address] [place] [address] Performed By: #### A LLBG ####[facility] LABCLIA [id number] [place] [address] [place] Calcium.ionized (Bld) [Mass/Vol] 1.14 mmol/L Normal 1.08-1.30 [facility] Comment on above: Order Comment: Speci men Type: ARTERIAL BLOOD SPECIMENOrdering Facility: [facility] Address: [address] [place] [address] Performed By: #### A LLBG ####[facility] LABCLIA [id number] [place] [address] [place] Calcium.ionized adjusted to pH 7.4 (BldA) [Moles/Vol] 1.06 mmol/L Low 1.08-1.30 [facility] Comment on above: Order Comment: Speci men Type: ARTERIAL BLOOD SPECIMENOrdering Facility: [facility] Address: [address] [place] [address] Performed By: #### A LLBG ####[facility] LABCLIA [id number] [place] [address] [place] Carboxyhemoglobin (BldA) [Mass fraction] 0.9 % Normal 0.0-2.0 [facility] Comment on above: Order Comment: Speci men Type: ARTERIAL BLOOD SPECIMENOrdering Facility: [facility] Address: [address] [place] [address] Result Comment: Carb oxyhemoglobin Reference Range for Smokers: 2.0-8.0% Performed By: #### A LLBG ####[facility] LABCLIA [id number] [place] [address] [place] CO2 (Bld) [Partial pressure] 57 mm Hg High 36-46 [facility] Comment on above: Order Comment: Speci men Type: ARTERIAL BLOOD SPECIMENOrdering Facility: [facility] Address: [address] [place] [address] Performed By: #### A LLBG ####[facility] LABCLIA [id number] [place] [address] [place] FIO2 60 % Normal [facility] Comment on above: Order Comment: Speci men Type: ARTERIAL BLOOD SPECIMENOrdering Facility: [facility] Address: [address] [place] [address] Performed By: #### A LLBG ####[facility] LABCLIA [id number] [place] [address] [place] Glucose [Mass/Vol] 210 mg/dL High 60-105 [facility] Comment on above: Order Comment: Speci men Type: ARTERIAL BLOOD SPECIMENOrdering Facility: [facility] Address: [address] [place] [address] Performed By: #### A LLBG ####[facility] LABCLIA [id number] [place] [address] [place] HCO3 (Bld) [Moles/Vol] 25 mmol/L Normal 22-26 [facility] Comment on above: Order Comment: Speci men Type: ARTERIAL BLOOD SPECIMENOrdering Facility: [facility] Address: [address] [place] [address] Performed By: #### A LLBG ####[facility] LABCLIA [id number] [place] [address] [place] Hematocrit (Bld) [Volume fraction] 36.5 % Normal 36.0-46.0 [facility] Comment on above: Order Comment: Speci men Type: ARTERIAL BLOOD SPECIMENOrdering Facility: [facility] Address: [address] [place] [address] Performed By: #### A LLBG ####[facility] LABCLIA [id number] [place] [address] [place] Hemoglobin (Bld) [Mass/Vol] 11.8 g/dL Normal 11.5-15.5 [facility] Comment on above: Order Comment: Speci men Type: ARTERIAL BLOOD SPECIMENOrdering Facility: [facility] Address: [address] [place] [address] Performed By: #### A LLBG ####[facility] LABCLIA [id number] [place] [address] [place] Lactate [Moles/Vol] 3.0 mmol/L High 0.5-2.2 [facility] Comment on above: Order Comment: Speci men Type: ARTERIAL BLOOD SPECIMENOrdering Facility: [facility] Address: [address] [place] [address] Performed By: #### A LLBG ####[facility] LABCLIA [id number] [place] [address] [place] Methemoglobin (Bld) [Mass fraction] 1.3 % Normal 0.0-1.5 [facility] Comment on above: Order Comment: Speci men Type: ARTERIAL BLOOD SPECIMENOrdering Facility: [facility] Address: [address] [place] [address] Performed By: #### A LLBG ####[facility] LABCLIA [id number] [place] [address] [place] O2 THERAPY VENT=Ventilator Normal [facility] Comment on above: Order Comment: Speci men Type: ARTERIAL BLOOD SPECIMENOrdering Facility: [facility] Address: [address] [place] [address] Performed By: #### A LLBG ####[facility] LABCLIA [id number] [place] [address] [place] Oxygen (Bld) [Partial pressure] 81 mm Hg Low 85-95 [facility] Comment on above: Order Comment: Speci men Type: ARTERIAL BLOOD SPECIMENOrdering Facility: [facility] Address: [address] [place] [address] Performed By: #### A LLBG ####[facility] LABCLIA [id number] [place] [address] [place] Oxyhemoglobin (BldA) [Mass fraction] 92 % Low 95-98 [facility] Comment on above: Order Comment: Speci men Type: ARTERIAL BLOOD SPECIMENOrdering Facility: [facility] Address: [address] [place] [address] Performed By: #### A LLBG ####[facility] LABCLIA [id number] [place] [address] [place] pH (Bld) 7.27 [pH] Low 7.35-7.45 [facility] Comment on above: Order Comment: Speci men Type: ARTERIAL BLOOD SPECIMENOrdering Facility: [facility] Address: [address] [place] [address] Performed By: #### A LLBG ####[facility] LABCLIA [id number] [place] [address] [place] PO2 / FIO2 RATIO 135 mmHg Low >300 [place] Comment on above: Order Comment: Speci men Type: ARTERIAL BLOOD SPECIMENOrdering Facility: [facility] Address: [address] [place] [address] Performed By: #### A LLBG ####[facility] LABCLIA [id number] [place] [address] [place] Potassium [Moles/Vol] 3.3 mmol/L Low 3.5-5.0 [facility] Comment on above: Order Comment: Speci men Type: ARTERIAL BLOOD SPECIMENOrdering Facility: [facility] Address: [address] [place] [address] Performed By: #### A LLBG ####[facility] LABCLIA [id number] [place] [address] [place] Sodium [Moles/Vol] 138 mmol/L Normal 136-144 [facility] Comment on above: Order Comment: Speci men Type: ARTERIAL BLOOD SPECIMENOrdering Facility: [facility] Address: [address] [place] [address] Performed By: #### A LLBG ####[facility] LABCLIA [id number] [place] [address] [place] Base deficit (BldA) [Moles/Vol] -2 mmol/L Normal -2-0 [facility] Comment on above: Order Comment: Speci men Type: ARTERIAL BLOOD SPECIMENOrdering Facility: [facility] Address: [address] [place] [address] Performed By: #### A LLBG ####[facility] LABCLIA [id number] [place] [address] [place] Body temperature 98.6 [degF] Normal [facility] Comment on above: Order Comment: Speci men Type: ARTERIAL BLOOD SPECIMENOrdering Facility: [facility] Address: [address] [place] [address] Performed By: #### A LLBG ####[facility] LABCLIA [id number] [place] [address] [place] Calcium.ionized (Bld) [Mass/Vol] 1.11 mmol/L Normal 1.08-1.30 [facility] Comment on above: Order Comment: Speci men Type: ARTERIAL BLOOD SPECIMENOrdering Facility: [facility] Address: [address] [place], [place] [address] Performed By: #### A LLBG ####[facility] LABCLIA [id number] [place] [address] [place] Calcium.ionized adjusted to pH 7.4 (BldA) [Moles/Vol] 1.04 mmol/L Low 1.08-1.30 [facility] Comment on above: Order Comment: Speci men Type: ARTERIAL BLOOD SPECIMENOrdering Facility: [facility] Address: [address] [place] [address] Performed By: #### A LLBG ####[facility] LABCLIA [id number] [place] [address] [place] Carboxyhemoglobin (BldA) [Mass fraction] 1.2 % Normal 0.0-2.0 [facility] Comment on above: Order Comment: Speci men Type: ARTERIAL BLOOD SPECIMENOrdering Facility: [facility] Address: [address] [place] [address] Result Comment: Carb oxyhemoglobin Reference Range for Smokers: 2.0-8.0% Performed By: #### A LLBG ####[facility] LABIA [id number] [place] [address] [place] CO2 (Bld) [Partial pressure] 53 mm Hg High 36-46 [facility] Comment on above: Order Comment: Speci men Type: ARTERIAL BLOOD SPECIMENOrdering Facility: [facility] Address: [address] [place] [address] Performed By: #### A LLBG ####[facility] LABCLIA [id number] [place] [address] [place] FIO2 60 % Normal [facility] Comment on above: Order Comment: Speci men Type: ARTERIAL BLOOD SPECIMENOrdering Facility: [facility] Address: [address] [place] [address] Performed By: #### A LLBG ####[facility] LABCLIA [id number] [place] [address] [place] Glucose [Mass/Vol] 222 mg/dL High 60-105 [facility] Comment on above: Order Comment: Speci men Type: ARTERIAL BLOOD SPECIMENOrdering Facility: [facility] Address: [address] [place] [address] Performed By: #### A LLBG ####[facility] LABCLIA [id number] [place] [address] [place] HCO3 (Bld) [Moles/Vol] 25 mmol/L Normal 22-26 [facility] Comment on above: Order Comment: Speci men Type: ARTERIAL BLOOD SPECIMENOrdering Facility: [facility] Address: [address] [place] [address] Performed By: #### A LLBG ####[facility] LABCLIA [id number] [place] [address] [place] Hematocrit (Bld) [Volume fraction] 37.0 % Normal 36.0-46.0 [facility] Comment on above: Order Comment: Speci men Type: ARTERIAL BLOOD SPECIMENOrdering Facility: [facility] Address: [address] [place] [address] Performed By: #### A LLBG ####[facility] LABCLIA [id number] [place] [address] [place] Hemoglobin (Bld) [Mass/Vol] 12.0 g/dL Normal 11.5-15.5 [facility] Comment on above: Order Comment: Speci men Type: ARTERIAL BLOOD SPECIMENOrdering Facility: [facility] Address: [address] [place] [address] Performed By: #### A LLBG ####[facility] LABCLIA [id number] [place] [address] [place] Lactate [Moles/Vol] 3.1 mmol/L High 0.5-2.2 [facility] Comment on above: Order Comment: Speci men Type: ARTERIAL BLOOD SPECIMENOrdering Facility: [facility] Address: [address] [place] [address] Performed By: #### A LLBG ####[facility] LABCLIA [id number] [place] [address] [place] Methemoglobin (Bld) [Mass fraction] 1.0 % Normal 0.0-1.5 [facility] Comment on above: Order Comment: Speci men Type: ARTERIAL BLOOD SPECIMENOrdering Facility: [facility] Address: [address] [place] [address] Performed By: #### A LLBG ####[facility] LABCLIA [id number] [place] [address] [place] O2 THERAPY VENT=Ventilator Normal [facility] Comment on above: Order Comment: Speci men Type: ARTERIAL BLOOD SPECIMENOrdering Facility: [facility] Address: [address] [place] [address] Performed By: #### A LLBG ####[facility] [id number] [place] [address] [place] Oxygen (Bld) [Partial pressure] 92 mm Hg Normal 85-95 [facility] Comment on above: Order Comment: Speci men Type: ARTERIAL BLOOD SPECIMENOrdering Facility: [facility] Address: [address] [place] [address] Performed By: #### A LLBG ####[facility] LABIA [id number] [place] [address] [place] Oxyhemoglobin (BldA) [Mass fraction] 94 % Low 95-98 [facility] Comment on above: Order Comment: Speci men Type: ARTERIAL BLOOD SPECIMENOrdering Facility: [facility] Address: [address] [place] [address] Performed By: #### A LLBG ####[facility] LABCLIA [id number] [place] [address] [place] pH (Bld) 7.29 [pH] Low 7.35-7.45 [facility] Comment on above: Order Comment: Speci men Type: ARTERIAL BLOOD SPECIMENOrdering Facility: [facility] Address: [address] [place] [address] Performed By: #### A LLBG ####[facility] LABCLIA [id number] [place] [address] [place] PO2 / FIO2 RATIO 153 mmHg Low >300 [place] Comment on above: Order Comment: Speci men Type: ARTERIAL BLOOD SPECIMENOrdering Facility: [facility] Address: [address] [place] [address] Performed By: #### A LLBG ####[facility] LABCLIA [id number] [place] [address] [place] Potassium [Moles/Vol] 3.2 mmol/L Low 3.5-5.0 [facility] Comment on above: Order Comment: Speci men Type: ARTERIAL BLOOD SPECIMENOrdering Facility: [facility] Address: [address] [place] [address] Performed By: #### A LLBG ####[facility] LABCLIA [id number] [place] [address] [place] Sodium [Moles/Vol] 137 mmol/L Normal 136-144 [facility] Comment on above: Order Comment: Speci men Type: ARTERIAL BLOOD SPECIMENOrdering Facility: [facility] Address: [address] [place] [address] Performed By: #### A LLBG ####[facility] LABCLIA [id number] [place] [address] [place] BRIEF OP NOTon 03-18-2025 BRIEF OP NOT Normal [facility] CBC panel Auto (Bld)on 03-18 Erythrocyte distribution width (RBC) [Ratio] 16.6 % High 11.5-15.0 [facility] Comment on above: Order Comment: Speci men Type: BLOOD SPECIMENOrdering Facility: [facility] Address: [address] [place] [address] Performed By: #### 5 8410-2 ####[facility] LABCLIA [id number] [place] [address] [place] Hematocrit (Bld) [Volume fraction] 39.4 % Normal 36.0-46.0 [facility] Comment on above: Order Comment: Speci men Type: BLOOD SPECIMENOrdering Facility: [facility] Address: [address] [place] [address] Performed By: #### 5 8410-2 ####[facility] LABCLIA [id number] [place] [address] [place] Hemoglobin (Bld) [Mass/Vol] 11.9 g/dL Normal 11.5-15.5 [facility] Comment on above: Order Comment: Speci men Type: BLOOD SPECIMENOrdering Facility: [facility] Address: [address] [place] [address] Performed By: #### 5 8410-2 ####[facility] LABCLIA [id number] [place] [address] [place] MCH (RBC) [Entitic mass] 23.1 pg Low 26.0-34.0 [facility] Comment on above: Order Comment: Speci men Type: BLOOD SPECIMENOrdering Facility: [facility] Address: [address] [place] [address] Performed By: #### 5 8410-2 ####[facility] LABCLIA [id number] [place] [address] [place] MCHC (RBC) [Mass/Vol] 30.2 g/dL Low 30.5-36.0 [facility] Comment on above: Order Comment: Speci men Type: BLOOD SPECIMENOrdering Facility: [facility] Address: [address] [place] [address] Performed By: #### 5 8410-2 ####[facility] LABCLIA [id number] [place] [address] [place] MCV (RBC) [Entitic vol] 76.5 fL Low 80.0-100.0 [facility] Comment on above: Order Comment: Speci men Type: BLOOD SPECIMENOrdering Facility: [facility] Address: [address] [place] [address] Performed By: #### 5 8410-2 ####[facility] LABCLIA [id number] [place] [address] [place] Nucleated RBC (Bld) [#/Vol] 10*3/uL Normal <0.01 [facility] Comment on above: Order Comment: Speci men Type: BLOOD SPECIMENOrdering Facility: [facility] Address: [address] [place] [address] Performed By: #### 5 8410-2 ####[facility] LABCLIA [id number] [place] [address] [place] Platelet mean volume (Bld) [Entitic vol] 10.1 fL Normal 9.0-12.7 [facility] Comment on above: Order Comment: Speci men Type: BLOOD SPECIMENOrdering Facility: [facility] Address: [address] [place] [address] Performed By: #### 5 8410-2 ####[facility] LABCLIA [id number] [place] [address] [place] Platelets (Bld) [#/Vol] 164 10*3/uL Normal 150-400 [facility] Comment on above: Order Comment: Speci men Type: BLOOD SPECIMENOrdering Facility: [facility] Address: [address] [place] [address] Performed By: #### 5 8410-2 ####[facility] LABCLIA [id number] [place] [address] [place] RBC (Bld) [#/Vol] 5.15 10*6/uL Normal 3.90-5.20 [facility] Comment on above: Order Comment: Speci men Type: BLOOD SPECIMENOrdering Facility: [facility] Address: [address] [place] [address] Performed By: #### 5 8410-2 ####[facility] LABCLIA [id number] [place] [address] [place] WBC (Bld) [#/Vol] 5.63 10*3/uL Normal 3.70-11.00 [facility] Comment on above: Order Comment: Speci men Type: BLOOD SPECIMENOrdering Facility: [facility] Address: [address] [place] [address] Performed By: #### 5 8410-2 ####[facility] LABCLIA [id number] [place] [address] [place] Comp Metab 2000 Pnl SerPlon 03-18-2025 Sodium [Moles/Vol] 140 mmol/L Normal 136-144 [facility] Comment on above: Order Comment: Speci men Type: BLOOD SPECIMENOrdering Facility: [facility] Address: [address] [place] [address] Performed By: #### 1 9123-9, 88053-3, 277- ####[facility] LABCLIA [id number] [address] [place] Order Comment: Speci men Type: VENOUS BLOOD SPECIMENOrdering Facility: [facility] Address: [address] [place] [address] Performed By: #### 2 4344-4 ####[facility] LABCLIA [id number] [address] [place] Comprehensive metabolic 2000 panelon 03-18-2025 Albumin [Mass/Vol] 4.1 g/dL Normal 3.9-4.9 [facility] Comment on above: Order Comment: Speci men Type: BLOOD SPECIMENOrdering Facility: [facility] Address: [address] [place] [address] Performed By: #### 1 9123-9, 40815-3, 2776- ####[facility] LABCLIA [id number] [place] [address] [place] ALP [Catalytic activity/Vol] 61 U/L Normal 34-123 [facility] Comment on above: Order Comment: Speci men Type: BLOOD SPECIMENOrdering Facility: [facility] Address: [address] [place] [address] Performed By: #### 1 9123-9, 70506-6, 277-1 ####[facility] LABCLIA [id number] [place] [address] [place] ALT [Catalytic activity/Vol] 26 U/L Normal 7-38 [facility] Comment on above: Order Comment: Speci men Type: BLOOD SPECIMENOrdering Facility: [facility] Address: [address] [place] [address] Performed By: #### 1 9123-9, 89629-4, 2777-1 ####[facility] LABCLIA [id number] [place] [address] [place] Anion gap [Moles/Vol] 15 mmol/L Normal 8-15 [facility] Comment on above: Order Comment: Speci men Type: BLOOD SPECIMENOrdering Facility: [facility] Address: [address] [place] [address] Performed By: #### 1 9123-9, 73365-3, 277- ####[facility] LABCLIA [id number] [place] [address] [place] AST [Catalytic activity/Vol] 33 U/L Normal 13-35 [facility] Comment on above: Order Comment: Speci men Type: BLOOD SPECIMENOrdering Facility: [facility] Address: [address] [place] [address] Performed By: #### 1 9123-9, 55771-6, 2777- ####[facility] LABCLIA [id number] [place] [address] [place] Bilirubin [Mass/Vol] 0.5 mg/dL Normal 0.2-1.3 [facility] Comment on above: Order Comment: Speci men Type: BLOOD SPECIMENOrdering Facility: [facility] Address: [address] [place] [address] Performed By: #### 1 9123-9, 03535-8, 2777-1 ####[facility] LABCLIA [id number] [place] [address] [place] Calcium [Mass/Vol] 8.4 mg/dL Low 8.5-10.2 [facility] Comment on above: Order Comment: Speci men Type: BLOOD SPECIMENOrdering Facility: [facility] Address: [address] [place] [address] Performed By: #### 1 9123-9, 59314-1, 2776- ####[facility] LABCLIA [id number] [place] [id number] [place] Chloride [Moles/Vol] 101 mmol/L Normal 98-107 [facility] Comment on above: Order Comment: Speci men Type: BLOOD SPECIMENOrdering Facility: [facility] Address: [address] [place] [address] Performed By: #### 1 9123-9, 68172-5, 2776-05 ####[facility] LABCLIA [id number] [place] [address] [place] CO2 [Moles/Vol] 24 mmol/L Normal 22-30 [facility] Comment on above: Order Comment: Speci men Type: BLOOD SPECIMENOrdering Facility: [facility] Address: [address] [place] [address] Performed By: #### 1 9123-9, 83621-7, 2776-05 ####[facility] LABCLIA [id number] [place] [address] [place] Creatinine [Mass/Vol] 0.73 mg/dL Normal 0.58-0.96 [facility] Comment on above: Order Comment: Speci men Type: BLOOD SPECIMENOrdering Facility: [facility] Address: [address] [place] [address] Performed By: #### 1 9123-9, 41681-0, 277- ####[facility] LABCLIA [id number] [place] [address] [place] eGFRcr SerPlBld CKD-EPI 2020 112 mL/min/1.73m??? Normal >=60 [facility] Comment on above: Order Comment: Speci men Type: BLOOD SPECIMENOrdering Facility: [facility] Address: [address] [place] [address] Result Comment: Vi mated Glomerular Filtration Rate (eGFR) is calculated using the 2020 CKD-EPI creatinine equation. This equation utilizes serum creatinine, sex, and age as parameters. The creatinine assay has traceable calibration to isotope dilution-mass spectrometry. Refer to KDIGO guidelines for clinical interpretation. In patients with unstable renal function, e.g. those with acute kidney injury, the eGFR may not accurately reflect actual GFR. Performed By: #### 1 9123-9, 34499-5, 2776- ####[facility] LABCLIA [id number] [place] [address] [place] Glucose [Mass/Vol] 184 mg/dL High 74-99 [facility] Comment on above: Order Comment: Speci mihir Type: BLOOD SPECIMENOrdering Facility: [facility] Address: [address] [place] [address] Result Comment: The [place] Diabetes Association (ADA) provides guidance for cutoff values for fasting glucose and random glucose. The ADA defines fasting as no caloric intake for at least 8 hours. Fasting plasma glucose results between 100 to 125 mg/dL indicate increased risk for diabetes (prediabetes).Fasting plasma glucose results greater than or equal to 126 mg/dL meet the criteria for diagnosis of diabetes. In the absence of unequivocal hyperglycemia, results should be confirmed by repeat testing. In a patient with classic symptoms of hyperglycemia or hyperglycemic crisis, random plasma glucose results greater than or equal to 200 mg/dL meet the criteria for diagnosis of diabetes.Reference: Standards of Medical Care in Diabetes 2016, [place] [employer]. Diabetes Care. 2016.39(Suppl 1). Performed By: #### 1 9123-9, 38909-4, 2776-05 ####[facility] LABCLIA [id number] [place] [id number] [place] Potassium [Moles/Vol] 3.5 mmol/L Low 3.7-5.1 [facility] Comment on above: Order Comment: Speci men Type: BLOOD SPECIMENOrdering Facility: [facility] Address: [address] [place] [address] Performed By: #### 1 9123-9, 57940-7, 2777-1 ####[facility] LABCLIA [id number] [place] [address] [place] Protein [Mass/Vol] 5.6 g/dL Low 6.3-8.0 [facility] Comment on above: Order Comment: Speci men Type: BLOOD SPECIMENOrdering Facility: [facility] Address: [address] [place] [address] Performed By: #### 1 9123-9, 75281-0, 2777-1 ####[facility] LABCLIA [id number] [place] [address] [place] Urea nitrogen [Mass/Vol] 10 mg/dL Normal 7-21 [facility] Comment on above: Order Comment: Speci men Type: BLOOD SPECIMENOrdering Facility: [facility] Address: [address] [place] [address] Performed By: #### 1 9123-9, 95691-3, 2777- ####[facility] LABCLIA [id number] [place] [address] [place] Fibrinogen PPP-mCncon 2024 Fibrinogen Coag (PPP) [Mass/Vol] 415 mg/dL High 200-400 [facility] Comment on above: Order Comment: Speci men Type: BLOOD SPECIMENOrdering Facility: [facility] Address: [address] [place] [address] Performed By: #### 3 255-7, 78515-3 ####[facility] LABCLIA [id number] [place] [address] [place] Gas and Carbon monoxide pane l (BldV)on 03-18-2025 BASE DEFICIT, VENOUS -3 mmol/L Low -2-0 [facility] Comment on above: Order Comment: Speci men Type: VENOUS BLOOD SPECIMENOrdering Facility: [facility] Address: [address] [place] [address] Performed By: #### 2 4344-4 ####[facility] LABCLIA [id number] [place] [address] [place] Body temperature 98.6 [degF] Normal [facility] Comment on above: Order Comment: Speci men Type: VENOUS BLOOD SPECIMENOrdering Facility: [facility] Address: [address] [place] [address] Performed By: #### 2 4344-4 ####[facility] LABCLIA [id number] [place] [address] [place] Calcium.ionized (Bld) [Mass/Vol] 1.18 mmol/L Normal 1.08-1.30 [facility] Comment on above: Order Comment: Speci men Type: VENOUS BLOOD SPECIMENOrdering Facility: [facility] Address: [address] [place] [address] Performed By: #### 2 4344-4 ####[facility] LABCLIA [id number] [place] [address] [place] Calcium.ionized adjusted to pH 7.4 (BldA) [Moles/Vol] 1.07 mmol/L Low 1.08-1.30 [facility] Comment on above: Order Comment: Speci men Type: VENOUS BLOOD SPECIMENOrdering Facility: [facility] Address: [address] [place] [address] Performed By: #### 2 4344-4 ####[facility] LABCLIA [id number] [place] [address] [place] Carboxyhemoglobin (BldV) [Mass fraction] 1.0 % Normal 0.0-2.0 [facility] Comment on above: Order Comment: Speci men Type: VENOUS BLOOD SPECIMENOrdering Facility: [facility] Address: [address] [place] [address] Result Comment: Carb oxyhemoglobin Reference Range for Smokers: 2.0-8.0% Performed By: #### 2 4344-4 ####[facility] LABCLIA [id number] [place] [address] [place] CO2 (BldV) [Partial pressure] 63 mm[Hg] High 42-55 [facility] Comment on above: Order Comment: Speci men Type: VENOUS BLOOD SPECIMENOrdering Facility: [facility] Address: [address] [place] [address] Performed By: #### 2 4344-4 ####[facility] LABCLIA [id number] [place] [id number] [place] FIO2 60 % Normal [facility] Comment on above: Order Comment: Speci men Type: VENOUS BLOOD SPECIMENOrdering Facility: [facility] Address: [address] [place] [address] Performed By: #### 2 4344-4 ####[facility] LABCLIA [id number] [place] [address] [place] Glucose [Mass/Vol] 194 mg/dL High 60-105 [facility] Comment on above: Order Comment: Speci men Type: VENOUS BLOOD SPECIMENOrdering Facility: [facility] Address: [address] [place] [address] Performed By: #### 2 4344-4 ####[facility] LABCLIA [id number] [place] [address] [place] HCO3 (Bld) [Moles/Vol] 25 mmol/L Normal 24-28 [facility] Comment on above: Order Comment: Speci men Type: VENOUS BLOOD SPECIMENOrdering Facility: [facility] Address: [address] [place] [address] Performed By: #### 2 4344-4 ####[facility] LABCLIA [id number] [place] [address] [place] Hematocrit (Bld) [Volume fraction] 36.9 % Normal 36.0-46.0 [facility] Comment on above: Order Comment: Speci men Type: VENOUS BLOOD SPECIMENOrdering Facility: [facility] Address: [address] [place] [address] Performed By: #### 2 4344-4 ####[facility] LABCLIA [id number] [place] [address] [place] Hemoglobin (Bld) [Mass/Vol] 12.0 g/dL Normal 11.5-15.5 [facility] Comment on above: Order Comment: Speci men Type: VENOUS BLOOD SPECIMENOrdering Facility: [facility] Address: [address] [place] [address] Performed By: #### 2 4344-4 ####[facility] LABCLIA [id number] [place] [address] [place] Lactate [Moles/Vol] 1.6 mmol/L Normal 0.5-2.2 [facility] Comment on above: Order Comment: Speci men Type: VENOUS BLOOD SPECIMENOrdering Facility: [facility] Address: [address] [place] [address] Performed By: #### 2 4344-4 ####[facility] LABCLIA [id number] [place] [address] [place] Methemoglobin (Bld) [Mass fraction] 1.1 % Normal 0.0-1.5 [facility] Comment on above: Order Comment: Speci men Type: VENOUS BLOOD SPECIMENOrdering Facility: [facility] Address: [address] [place] [address] Performed By: #### 2 4344-4 ####[facility] LABCLIA [id number] [place] [address] [place] O2 THERAPY VENT=Ventilator Normal [facility] Comment on above: Order Comment: Speci men Type: VENOUS BLOOD SPECIMENOrdering Facility: [facility] Address: [address] [place] [address] Performed By: #### 2 4344-4 ####[facility] LABCLIA [id number] [place] [address] [place] Oxygen (BldV) [Partial pressure] 90 mm[Hg] High 35-45 [facility] Comment on above: Order Comment: Speci men Type: VENOUS BLOOD SPECIMENOrdering Facility: [facility] Address: [address] [place] [address] Performed By: #### 2 4344-4 ####[facility] LABCLIA [id number] [place] [address] [place] Oxygen saturation in Venous blood 95 % High 60-85 [facility] Comment on above: Order Comment: Speci men Type: VENOUS BLOOD SPECIMENOrdering Facility: [facility] Address: [address] [place] [address] Performed By: #### 2 4344-4 ####[facility] LABCLIA [id number] [place] [address] [place] Oxyhemoglobin (BldV) [Mass fraction] 93 % High 60-85 [facility] Comment on above: Order Comment: Speci men Type: VENOUS BLOOD SPECIMENOrdering Facility: [facility] Address: [address] [place] [address] Performed By: #### 2 4344-4 ####[facility] LABCLIA [id number] [place] [address] [place] pH (BldV) 7.23 [pH] Low 7.32-7.42 [facility] Comment on above: Order Comment: Speci men Type: VENOUS BLOOD SPECIMENOrdering Facility: [facility] Address: [address] [place] [address] Performed By: #### 2 4344-4 ####[facility] LABCLIA [id number] [place] [address] [place] Potassium [Moles/Vol] 3.4 mmol/L Low 3.5-5.0 [facility] Comment on above: Order Comment: Speci men Type: VENOUS BLOOD SPECIMENOrdering Facility: [facility] Address: [address] [place] [address] Performed By: #### 2 4344-4 ####[facility] LABCLIA [id number] [place] [address] [place] HISTORY PHYSICALon HISTORY PHYSICAL Normal [place] Magnesium SerPl-mCncon 03-18 Magnesium [Mass/Vol] 2.1 mg/dL Normal 1.7-2.3 [facility] Comment on above: Order Comment: Speckerri ash Type: BLOOD SPECIMENOrdering Facility: [facility] Address: [address] [place] [address] Performed By: #### 1 9123-9, 61019-1, 2777-1 ####[facility] LABCLIA [id number] [address] OF [facility] OPERATIVE NOon 03-18-2025 OPERATIVE NO Normal [facility] PT panel Coag (PPP)on 2024 INR Coag (PPP) [Relative time] 1.0 {INR} Normal 0.9-1.3 [facility] Comment on above: Order Comment: Michele ash Type: BLOOD SPECIMENOrdering Facility: [facility] Address: [address] [place] [address] Result Comment: Jennifer min K Antagonist (VKA) Therapeutic Range: INR 2 to 3 (Target INR of 2.5)Note: For patients treated with VKA drugs, such as warfarin, the [place] [employer] 2012 Guideline recommends a therapeutic INR range of 2 to 3 (target INR of 2.5). This recommendation includes high-risk patients with antiphospholipid syndrome with previous arterial or venous thromboembolism, current-generation mechanical or bioprosthetic aortic heart valve replacement.Note: Patients with mechanical aortic valve replacement and additional risk factors for thromboembolic events (atrial fibrillation, previous thromboembolism, LV dysfunction, hypercoagulable conditions) or an older generation mechanical AVR (i.e., ball in-Cage) or any mechanical MVR should have a INR therapeutic range of 2.5 to 3.5 (target INR of 3).Noman NAVARRO, et al. Chest 2012, 141:7S-47SNishimdon RA, et al. [facility] 2017, 70: 252-289 Performed By: #### 3 255-7, 11439-0 ####[facility] LABCLIA [id number] [address] [place] PT Coag (PPP) [Time] 11.0 s Normal 9.7-13.0 [facility] Comment on above: Order Comment: Speci men Type: BLOOD SPECIMENOrdering Facility: [facility] Address: [address] [place] [address] Performed By: #### 3 255-7, 09328-2 ####[facility] LABCLIA [id number] [place] [address] [place] Phosphate SerPl-mCncon 03-18 Phosphate [Mass/Vol] 4.5 mg/dL Normal 2.7-4.8 [facility] Comment on above: Order Comment: Speci men Type: BLOOD SPECIMENOrdering Facility: [facility] Address: [address] [place] [address] Performed By: #### 1 9123-9, 11630-3, 2777-1 ####[facility] LABCLIA [id number] [place] [address] [place] STAPHYLOCOCCUS AUREUS AND MR SA SCREEN, PCR, NASALon 03-18-2025 S. aureus and MRSA panel GUNJAN+probe (Nose) Not detected Normal Not Detected [facility] Comment on above: Order Comment: Speci men Type: SWABOrdering Facility: [facility] Address: [address] [place] [address] Performed By: #### S APCR ####[facility] LABCLIA [id number] [place] [address] [place] US LEG VEIN DVT DEYA VAS LABo n 03-18-2025 US LEG VEIN DVT DEYA VAS LAB Normal [facility] XR CHEST 1V FRONTAL PORTon 1 05-18-2024 XR CHEST 1V FRONTAL PORT Normal [facility] CNPNon 03-17-2025 CNPN Normal [facility] CNCNPATEDon 03-03-2025 CNCNPATED Normal [facility] Nasopharyngeal Cultureon NAC Streptococcus pneumoniae Amount Growth 3+ Streptococcus pneumoniae: REACTION Cefotaxime Islt LISA 0.25 Cefotaxime Islt LISA 0.25 S cefTRIAXone Islt LISA 0.5 S cefTRIAXone Islt LISA 0.5 S Clindamycin Islt LISA >=1 R Erythromycin Islt LISA 4 R levoFLOXacin Islt LISA 0.5 S Moxifloxacin Islt LISA 0.12 S TMP SMX Islt LISA <=10 S Vancomycin Islt LISA <=0.12 S Penicillin Islt LISA 0.25 R Penicillin Islt LISA 0.25 S Penicillin Islt LISA 0.25 I Normal [facility] Comment on above: Performed By: #### L 100.0100, L500.2500 #### [facility] [address] [place], [place], [address] Gram Stainon 02-28-2025 GS Positive Normal [facility] Comment on above: Performed By: #### L 100.0100, L500.2500 #### [facility] [address] [place], [address] Gram stainOrdered By: Eral Vital on 02-27-2025 Microscopic observation Gram stain Nom (Unsp spec) [facility] CNOVon 02-26-2025 CNOV Normal [facility] ABO AND RH ONLYon 02-25-2025 ABO Invalid result Normal [facility] Comment on above: Order Comment: Speci men Type: BLOOD SPECIMENOrdering Facility: [facility] Address: [address] [place] [address] Performed By: #### VANESA MCCLAIN ####[facility] LABCLIA [id number] [place] [address] [place] Rh Nom (Bld) Negative Normal [facility] Comment on above: Order Comment: Speci men Type: BLOOD SPECIMENOrdering Facility: [facility] Address: [address] [place] [address] Performed By: #### VANESA MCCLAIN ####[facility] LABCLIA [id number] [place] [address] [place] Result Comment: Boubacar ected result: Previously reported as Invalid on 02/26/2025 at 12:30 AM EDT. ABO A Normal [facility] Comment on above: Order Comment: Speci men Type: BLOOD SPECIMENOrdering Facility: [facility] Address: [address] [place] [address] Result Comment: Boubacar ected result: Previously reported as Indeterminate ABO on 02/26/2025 at 12:29 AM EDT. Performed By: #### T SCR30, ABORH ####[facility] LABCLIA [id number] [place] [address] [place] Rh Nom (Bld) Negative Normal [facility] Comment on above: Order Comment: Speci men Type: BLOOD SPECIMENOrdering Facility: [facility] Address: [address] [place] [address] Performed By: #### T SCR30, ABORH ####[facility] LABCLIA [id number] [place] [address] [place] CBC W Auto Differential pane l (Bld)on 02-25-2025 Basophils (Bld) [#/Vol] 10*3/uL Normal <0.11 [facility] Comment on above: Order Comment: Speci men Type: BLOOD SPECIMENOrdering Facility: [facility] Address: [address] [place] [address] Performed By: #### 5 7021-8 ####[facility]CL[facility] [id number] [address] [place] Basophils/100 WBC (Bld) 0.2 % Normal [facility] Comment on above: Order Comment: Speci men Type: BLOOD SPECIMENOrdering Facility: [facility] Address: [address] [place] [address] Performed By: #### 5 7021-8 ####[facility] MILLTOWNCLIA [id number] [place] [address] [place] Differential cell count method Nom (Bld) Auto Normal [facility] Comment on above: Order Comment: Speci men Type: BLOOD SPECIMENOrdering Facility: [facility] Address: [address] [place] [address] Performed By: #### 5 7021-8 ####[facility] MILLWNCLIA [id number] [place] [address] [place] Eosinophils (Bld) [#/Vol] 0.14 10*3/uL Normal <0.46 [facility] Comment on above: Order Comment: Speci men Type: BLOOD SPECIMENOrdering Facility: [facility] Address: [address] [place] [address] Performed By: #### 5 7021-8 ####[facility]ITALKAREN [id number] [place] [address] [place] Eosinophils/100 WBC (Bld) 2.6 % Normal [facility] Comment on above: Order Comment: Speci men Type: BLOOD SPECIMENOrdering Facility: [facility] Address: [address] [place] [address] Performed By: #### 5 7021-8 ####[facility] HOSPITALMELINDA [id number] [place] [address] [place] Erythrocyte distribution width (RBC) [Ratio] 16.1 % High 11.5-15.0 [facility] Comment on above: Order Comment: Speci men Type: BLOOD SPECIMENOrdering Facility: [facility] Address: [address] [place] [address] Performed By: #### 5 7021-8 ####[facility] HOSPITALMELINDA [id number] [place] [address] [place] Hematocrit (Bld) [Volume fraction] 43.1 % Normal 36.0-46.0 [facility] Comment on above: Order Comment: Speci men Type: BLOOD SPECIMENOrdering Facility: [facility] Address: [address] [place] [address] Performed By: #### 5 7021-8 ####[facility] HOSPITALLI [id number] [place] [address] [place] Hemoglobin (Bld) [Mass/Vol] 12.5 g/dL Normal 11.5-15.5 [facility] Comment on above: Order Comment: Speci men Type: BLOOD SPECIMENOrdering Facility: [facility] Address: [address] [place] [address] Performed By: #### 5 7021-8 ####[facility] [id number] [place] [address] [place] Immature granulocytes (Bld) [#/Vol] 0.05 10*3/uL Normal <0.10 [facility] Comment on above: Order Comment: Speci men Type: BLOOD SPECIMENOrdering Facility: [facility] Address: [address] [place] [address] Performed By: #### 5 7021-8 ####[facility] [id number] [place] [address] [place] Immature granulocytes/100 WBC (Bld) 0.9 % Normal [facility] Comment on above: Order Comment: Speci men Type: BLOOD SPECIMENOrdering Facility: [facility] Address: [address] [place] [address] Performed By: #### 5 7021-8 ####[facility] [id number] [place] [address] [place] Lymphocytes (Bld) [#/Vol] 1.55 10*3/uL Normal 1.00-4.00 [facility] Comment on above: Order Comment: Speci men Type: BLOOD SPECIMENOrdering Facility: [facility] Address: [address] [place] [address] Performed By: #### 5 7021-8 ####[facility] [id number] [place] [address] [place] Lymphocytes/100 WBC (Bld) 28.4 % Normal [facility] Comment on above: Order Comment: Speci men Type: BLOOD SPECIMENOrdering Facility: [facility] Address: [address] [place] [address] Performed By: #### 5 7021-8 ####[facility] MILLCESIAWNCLIA [id number] [place] [address] [place] MCH (RBC) [Entitic mass] 22.0 pg Low 26.0-34.0 [facility] Comment on above: Order Comment: Speci men Type: BLOOD SPECIMENOrdering Facility: [facility] Address: [address] [place] [address] Performed By: #### 5 7021-8 ####[facility]ITALNCLIA [id number] [place] [address] [place] MCHC (RBC) [Mass/Vol] 29.0 g/dL Low 30.5-36.0 [facility] Comment on above: Order Comment: Speci men Type: BLOOD SPECIMENOrdering Facility: [facility] Address: [address] [place] [address] Performed By: #### 5 7021-8 ####[facility] H[facility]ITALNCLIA [id number] [place] [address] [place] MCV (RBC) [Entitic vol] 75.9 fL Low 80.0-100.0 C [facility] Comment on above: Order Comment: Speci men Type: BLOOD SPECIMENOrdering Facility: [facility] Address: [address] [place] [address] Performed By: #### 5 7021-8 ####[facility]ITALNCLIA [id number] [place] [address] [place] Monocytes (Bld) [#/Vol] 0.34 10*3/uL Normal <0.87 [facility] Comment on above: Order Comment: Speci men Type: BLOOD SPECIMENOrdering Facility: [facility] Address: [address] [place] [address] Performed By: #### 5 7021-8 ####[facility] [id number] [place] [address] [place] Monocytes/100 WBC (Bld) 6.2 % Normal [facility] Comment on above: Order Comment: Speci men Type: BLOOD SPECIMENOrdering Facility: [facility] Address: [address] [place] [address] Performed By: #### 5 7021-8 ####[facility] [id number] [place] [address] [place] Neutrophils (Bld) [#/Vol] 3.37 10*3/uL Normal 1.45-7.50 [facility] Comment on above: Order Comment: Speci men Type: BLOOD SPECIMENOrdering Facility: [facility] Address: [address] [place] [address] Performed By: #### 5 7021-8 ####[facility] [id number] [place] [address] [place] Neutrophils/100 WBC (Bld) 61.7 % Normal [facility] Comment on above: Order Comment: Speci men Type: BLOOD SPECIMENOrdering Facility: [facility] Address: [address] [place] [address] Performed By: #### 5 7021-8 ####[facility] [id number] [place] [address] [place] Nucleated RBC (Bld) [#/Vol] 10*3/uL Normal <0.01 [facility] Comment on above: Order Comment: Speci men Type: BLOOD SPECIMENOrdering Facility: [facility] Address: [address] [place] [address] Performed By: #### 5 7021-8 ####[facility] [id number] [place] [address] [place] Nucleated RBC/100 WBC (Bld) [Ratio] 0.0 /100 WBC Normal [facility] Comment on above: Order Comment: Speci men Type: BLOOD SPECIMENOrdering Facility: [facility] Address: [address] [place] [address] Performed By: #### 5 7021-8 ####[facility] SHANNONJenniferNCKAREN [id number] [place] [address] [place] Platelet mean volume (Bld) [Entitic vol] 9.5 fL Normal 9.0-12.7 [facility] Comment on above: Order Comment: Speci men Type: BLOOD SPECIMENOrdering Facility: [facility] Address: [address] [place] [address] Performed By: #### 5 7021-8 ####[facility] HOSPITALNCS[facility] [id number] [place] [address] [place] Platelets (Bld) [#/Vol] 223 10*3/uL Normal 150-400 [facility] Comment on above: Order Comment: Speci men Type: BLOOD SPECIMENOrdering Facility: [facility] Address: [address] [place] [address] Performed By: #### 5 7021-8 ####[facility] H[facility]ITALNCLIA [id number] [place] [address] [place] RBC (Bld) [#/Vol] 5.68 10*6/uL High 3.90-5.20 [facility] Comment on above: Order Comment: Speci men Type: BLOOD SPECIMENOrdering Facility: [facility] Address: [address] [place] [address] Performed By: #### 5 7021-8 ####[facility]ITALNCLIA [id number] [place] [address] [place] WBC (Bld) [#/Vol] 5.46 10*3/uL Normal 3.70-11.00 [facility] Comment on above: Order Comment: Speci men Type: BLOOD SPECIMENOrdering Facility: [facility] Address: [address] [place] [address] Performed By: #### 5 7021-8 ####[facility] HOSPITALNCA [id number] [place] [address] [place] CONFIRM BLOOD TYPEon 025 ABO A Normal [facility] Comment on above: Order Comment: Speci men Type: BLOOD SPECIMENOrdering Facility: [facility] Address: [address] [place] [address] Result Comment: Boubacar ected result: Previously reported as Invalid on 02/26/2025 at 12:30 AM EDT. Performed By: #### A VANESA STANLEY ####[facility] LABCLIA [id number] [place] [address] [place] CRP SerPl-mCncon 02-25-2025 CRP [Mass/Vol] 4.0 mg/dL High <0.9 [facility] Comment on above: Order Comment: Speci men Type: BLOOD SPECIMENOrdering Facility: [facility] Address: [address] [place] [address] Performed By: #### 1 988-5 ####[facility] LABCLIA [id number] [place] [address] [place] Comprehensive metabolic 2000 panelon 02-25-2025 Albumin [Mass/Vol] 4.0 g/dL Normal 3.9-4.9 [facility] Comment on above: Order Comment: Speci men Type: BLOOD SPECIMENOrdering Facility: [facility] Address: [address] [place] [address] Performed By: #### 2 4323-8 ####[facility] [id number] [place] [address] [place] ALP [Catalytic activity/Vol] 74 U/L Normal 34-123 [facility] Comment on above: Order Comment: Speci men Type: BLOOD SPECIMENOrdering Facility: [facility] Address: [address] [place], [place] [address] Performed By: #### 2 4323-8 ####[facility] SUKHJINDER MILLTOWNCLIA [id number] [place] [address] [place] ALT [Catalytic activity/Vol] 27 U/L Normal 7-38 [facility] Comment on above: Order Comment: Speci men Type: BLOOD SPECIMENOrdering Facility: [facility] Address: [address] [place] [address] Performed By: #### 2 4323-8 ####[facility] MILLTOWNCLIA [id number] [place] [address] [place] Anion gap [Moles/Vol] 8 mmol/L Normal 8-15 [facility] Comment on above: Order Comment: Speci men Type: BLOOD SPECIMENOrdering Facility: [facility] Address: [address] [place] [address] Performed By: #### 2 4323-8 ####[facility] HOS[facility]ITALNCLIA [id number] [place] [address] [place] AST [Catalytic activity/Vol] 30 U/L Normal 13-35 [facility] Comment on above: Order Comment: Speci men Type: BLOOD SPECIMENOrdering Facility: [facility] Address: [address] [place] [address] Performed By: #### 2 4323-8 ####[facility] MILLTOWNCLIA [id number] [place] [address] [place] Bilirubin [Mass/Vol] 0.2 mg/dL Normal 0.2-1.3 [facility] Comment on above: Order Comment: Speci men Type: BLOOD SPECIMENOrdering Facility: [facility] Address: [address] [place] [address] Performed By: #### 2 4323-8 ####[facility]ENTERWNCLIA [id number] [place] [address] [place] Calcium [Mass/Vol] 9.1 mg/dL Normal 8.5-10.2 [facility] Comment on above: Order Comment: Speci men Type: BLOOD SPECIMENOrdering Facility: [facility] Address: [address] [place] [address] Performed By: #### 2 4323-8 ####[facility] SUKHJINDER MILLTOWNCLIA [id number] [place] [address] [place] Chloride [Moles/Vol] 103 mmol/L Normal 98-107 [facility] Comment on above: Order Comment: Speci men Type: BLOOD SPECIMENOrdering Facility: [facility] Address: [address] [place] [address] Performed By: #### 2 4323-8 ####[facility] MILLTOWNCLIA [id number] [place] [address] [place] CO2 [Moles/Vol] 30 mmol/L Normal 22-30 [facility] Comment on above: Order Comment: Speci men Type: BLOOD SPECIMENOrdering Facility: [facility] Address: [address] [place] [address] Performed By: #### 2 4323-8 ####[facility] MILLTOWNCLIA [id number] [place] [address] [place] Creatinine [Mass/Vol] 0.64 mg/dL Normal 0.58-0.96 [facility] Comment on above: Order Comment: Speci men Type: BLOOD SPECIMENOrdering Facility: [facility] Address: [address] [place], [place] [address] Performed By: #### 2 4323-8 ####[facility] [facility] [id number] [place] [address] [place] eGFRcr SerPlBld CKD-EPI 2020 121 mL/min/1.73m??? Normal >=60 [facility] Comment on above: Order Comment: Speci men Type: BLOOD SPECIMENOrdering Facility: [facility] Address: [address] [place] [address] Result Comment: Vi mated Glomerular Filtration Rate (eGFR) is calculated using the 2020 CKD-EPI creatinine equation. This equation utilizes serum creatinine, sex, and age as parameters. The creatinine assay has traceable calibration to isotope dilution-mass spectrometry. Refer to KDIGO guidelines for clinical interpretation. In patients with unstable renal function, e.g. those with acute kidney injury, the eGFR may not accurately reflect actual GFR. Performed By: #### 2 4323-8 ####[facility] [id number] [place] [address] [place] Glucose [Mass/Vol] 88 mg/dL Normal 74-99 [facility] Comment on above: Order Comment: Michele ash Type: BLOOD SPECIMENOrdering Facility: [facility] Address: [address] [place] [address] Result Comment: The [place] Diabetes Association (ADA) provides guidance for cutoff values for fasting glucose and random glucose. The ADA defines fasting as no caloric intake for at least 8 hours. Fasting plasma glucose results between 100 to 125 mg/dL indicate increased risk for diabetes (prediabetes).Fasting plasma glucose results greater than or equal to 126 mg/dL meet the criteria for diagnosis of diabetes. In the absence of unequivocal hyperglycemia, results should be confirmed by repeat testing. In a patient with classic symptoms of hyperglycemia or hyperglycemic crisis, random plasma glucose results greater than or equal to 200 mg/dL meet the criteria for diagnosis of diabetes.Reference: Standards of Medical Care in Diabetes 2016, [place] Diabetes Association. Diabetes Care. 2016.39(Suppl 1). Performed By: #### 2 4323-8 ####[facility] [id number] [place] [address] [place] Potassium [Moles/Vol] 4.0 mmol/L Normal 3.7-5.1 [facility] Comment on above: Order Comment: Michele ash Type: BLOOD SPECIMENOrdering Facility: [facility] Address: [address] [place] [address] Performed By: #### 2 4323-8 ####[facility] MILL[facility]OWNCLIA [id number] [place] [address] [place] Protein [Mass/Vol] 6.0 g/dL Low 6.3-8.0 [facility] Comment on above: Order Comment: Speci men Type: BLOOD SPECIMENOrdering Facility: [facility] Address: [address] [place] [address] Performed By: #### 2 4323-8 ####[facility] [id number] [place] [address] [place] Sodium [Moles/Vol] 141 mmol/L Normal 136-144 [facility] Comment on above: Order Comment: Speci men Type: BLOOD SPECIMENOrdering Facility: [facility] Address: [address] [place] [address] Performed By: #### 2 4323-8 ####[facility] [id number] [place] [address] [place] Urea nitrogen [Mass/Vol] 7 mg/dL Normal 7- [facility] Comment on above: Order Comment: Speci men Type: BLOOD SPECIMENOrdering Facility: [facility] Address: [address] [place] [address] Performed By: #### 2 4323-8 ####[facility] [id number] [place] [address] [place] HISTORY PHYSICALon HISTORY PHYSICAL Normal [place] TYPE AND SCREEN,30 DAYon ABO Invalid result Normal [facility] Comment on above: Order Comment: Speci men Type: BLOOD SPECIMENOrdering Facility: [facility] Address: [address] [place] [address] Performed By: #### T SCR30, [facility] ####[facility] LABCLIA [id number] [place] [address] [place] Rh Nom (Bld) Invalid result Normal [place] Comment on above: Order Comment: Speci men Type: BLOOD SPECIMENOrdering Facility: [facility] Address: [address] [facility] [address] [place] [address] Performed By: #### T SCR30, ABORH ####[facility] LABCLIA [id number] [place] Absolute lymphocyte countOrd ered By: Neo Phelps on 02-20-2025 Lymphocytes Auto (Unsp spec) [#/Vol] 1.71 10*3/uL 0.83-4.51 [facility] Absolute neutrophil countOrd ered By: Neo Phelps on 02-20-2025 Neutrophils (Bld) [#/Vol] 1.9 10*3/uL Low 2.0-7.7 [facility] Anion gap in Serum or Plasma Ordered By: Neo Phelps on 02-20-2025 Anion gap [Moles/Vol] 8 mmol/L 09-19 [facility] Automated lymphocyte count a s percentage of total leukocytesOrdered By: Neo Phelps on 02-20-2025 Lymphocytes/100 WBC Auto (Unsp spec) 40.9 % [facility] BUN/creatinine ratioOrdered By: Neo Phelps on 02-20-2025 Urea nitrogen/Creatinine [Mass ratio] 14.7 mg/mg 02-24 [facility] Basic Metabolic Profile (BMP )on 02-20-2025 BUN/CRE 14.7 RATIO Normal 02-24 [facility] Comment on above: Performed By: #### L 100.0100, L500.2500 #### [facility] [address] [place], [address] Calcium [Mass/Vol] 8.4 mg/dL Normal 7.6-11.0 [facility] Comment on above: Performed By: #### L 100.0100, L500.2500 #### [facility] [address] [place], [address] Chloride [Moles/Vol] 101 mmol/L Normal 98-108 [facility] Comment on above: Performed By: #### L 100.0100, L500.2500 #### [facility] [address] [place], [address] CO2 [Moles/Vol] 30.0 mmol/L Normal 21.0-32.0 [facility] Comment on above: Performed By: #### L 100.0100, L500.2500 #### [facility] [address] [place], [address] Creatinine [Mass/Vol] 0.67 mg/dL Low 0.70-1.20 [facility] Comment on above: Performed By: #### L 100.0100, L500.2500 #### [facility] [address] [place], [address] ECRCL 229.99 ml/min Normal 50-250 [facility] Comment on above: Performed By: #### L 100.0100, L500.2500 #### [facility] [address] [place], [address] GAP 8 Normal 5-15 [facility] Comment on above: Performed By: #### L 100.0100, L500.2500 #### [facility] [address] [place], [address] GFR/1.73 sq M.predicted among non-blacks MDRD (S/P/Bld) [Vol rate/Area] 119 mL/min/{1.73_m2} Normal >60 [facility] Comment on above: Result Comment: mL/m in/1.73m2 CKD-EPI Creatinine Equation (2020) Performed By: #### L 100.0100, L500.2500 #### [facility] [address] [place], [address] Glucose [Mass/Vol] 88 mg/dL Normal 70-99 [facility] Comment on above: Performed By: #### L 100.0100, L500.2500 #### [facility] [address] [place], [address] Potassium [Moles/Vol] 4.3 mmol/L Normal 3.3-5.1 [facility] Comment on above: Performed By: #### L 100.0100, L500.2500 #### [facility] [address] [place], [address] Sodium [Moles/Vol] 139 mmol/L Normal 133-145 [facility] Comment on above: Performed By: #### L 100.0100, L500.2500 #### [facility] [address] [place], [address] Urea nitrogen [Mass/Vol] 10 mg/dL Normal 4-19 [facility] Comment on above: Performed By: #### L 100.0100, L500.2500 #### [facility] [address] [place], [address] Basophil percentageOrdered B y: Neo Villegasbryan on 02-20-2025 Basophils/100 WBC (Bld) 0.5 % 0-1 [facility] CBC W/Diff, Automatedon 02-05 REACTIVE LYMPH RARE Normal [facility] Comment on above: Performed By: #### L 100.0100, L500.2500 #### [facility] [address] [place], [address] CTA Chest W/WO Contraston CTA Chest W/WO Contrast 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 3D post processing was performed CONTRAST: Isovue 370 VOLUME: 95 mL One or more dose reduction techniques were used (e.g., Automated exposure control, adjustment of the mA and/or kV according to patient size, use of iterative reconstruction technique). Multiplanar Sagittal and Coronal images were obtained. 3D post processing was performed RADIATION DOSE SUMMARY: CTDlvol: 13.5 mGy DLP: 568.35 mGycm COMPARISON: Prior chest radiograph done earlier in the day. FINDINGS: Hardware: None Lymph nodes: No significant lymph nodes are seen. Heart: The heart is nonenlarged. Thoracic Aorta: No thoracic aortic aneurysm or dissection. Pulmonary Vessels: No evidence of pulmonary embolism. Lungs and Airways: Stable elevation of the left hemidiaphragm. Minimal atelectasis at the left lung base with scarring and bronchiectasis. Scarring in the lingular segment of the left upper lobe. Pleura: No pleural effusion. Upper Abdomen: Splenomegaly. Bones: Degenerative changes of the thoracic spine. CT/CTA Chest W/WO Contrast IMPRESSION: NORMAL CHEST CTA. NO EVIDENCE OF ACUTE PULMONARY EMBOLISM. Elevation of the left hemidiaphragm with findings suggestive of atelectasis and scarring at the left lung base as well as the lingular segment of the left upper lobe. Reading Location: [place] [address] CC: CHILD STUDY TEAM DIRECTORJeff Bermeo; Dr. Neo Phelps DO Whistle Punk: Signed Normal [facility] Carbon dioxide, total [Moles /volume] in Central venous bloodOrdered By: Neo Phelps on 02-20-2025 CO2 [Moles/Vol] 30.0 mmol/L 21.0-32.0 [facility] Chest PA and Lateralon 02-20 Chest PA and Lateral [facility] Imaging Services [address] [place] [address] Chest PA and Lateral MR#: [id number] Acct: [id number] Name: TORRIE MARTINEZ Rep #: [id number] : 1990 F 34 From: Dominic Hi MD PCP: PARK JonesC Status: REG ER Study: Chest PA and Lateral Date of Exam: 02/20/25 Exam# [id number] Ordering Dr: Neo Phelps DO PROCEDURE: CHEST PA AND LATERAL 02/20/2025 REASON FOR EXAM: COUGH TECHNIQUE: Procedure Code: RADCXR Modality: DX Procedure: CHEST PA AND LATERAL COMPARISON: September 03, 2024 FINDINGS: Heart size is within normal limits. There is elevation of the left hemidiaphragm which may indicate paralysis, similar to the prior. There is no focal infiltrate or consolidation. There is no pneumothorax or significant effusion. There is no acute bony abnormality. There is no visible atherosclerosis. RAD/Chest PA and Lateral IMPRESSION: There is elevation of the left hemidiaphragm which may indicate paralysis, similar to the prior. There is no acute infiltrate. Reading Location: [place] CC: PARKC Louann Bermeo; Dr. Neo Phelps DO Whistle Punk: Signed Normal [facility] Chloride assayOrdered By: Cas Phelps on 02-20-2025 Chloride [Moles/Vol] 101 mmol/L 98-108 [facility] D-Dimer Quantitative (DVT/PE )on 02-20-2025 D-DIMER QUANT 0.52 FEU/ug/m Invalid Interpretation Code 0.27-0.49 [facility] Comment on above: Result Comment: D-Di gonzalo ELEVATED (>0.49): Additional studies and clinical assessments are indicated to conclude diagnosis of: Deep Vein Thrombosis (DVT) or Pulmonary Embolism (PE) CRITICAL VALUE CALLED TO ADRIANNE NICK (ER) 02/20/25 [address]. RESULTS READ BACK BY SAME. Performed By: #### L 100.0100, L500.2500 #### [facility] [address] [place], [address] Emergency Department Summary on 02-20-2025 Emergency Department Summary [facility] Medical Records Department [address] [place] [address] Emergency Department Summary 02/20/25 MR#: [id number] Acct: [id number] Name: TORRIE MATRINEZ Rep #: [id number] : 1990 34 From: Neo Phelps DO PCP: Louann Bermeo CHILD STUDY TEAM DIRECTOR-C Status:DEP ER Location: ED HPI History of Present Illness Chief Complaint: Shortness of Breath Informant: patient Onset/Context/Timing Onset: Weeks (1) Context: gradual Timing: Continuous Quality: Positive for Dyspnea on exertion and Orthopnea Worsened by: Exertion and Lying flat Relieved by: Oxygen Associated Symptoms cough, rhinorrhea, fever, sweats, yellow sputum and green sputum; Negative for ear pain, sore throat, chills, clear sputum or white sputum Chest Pain: Positive for Intermittent and - (Throbbing) Narrative Narrative: Patient presents with shortness of breath that has been getting worse over the past week. Patient states this feels similar to prior episodes of pneumonia. Patient states she has home oxygen to take as needed. Patient states she has been using this more frequently. Patient admits to a cough with some green and yellow sputum. Patient admits to a fever of 102. Patient also admits to some rhinorrhea. Patient admits to some intermittent pain in her chest. Patient describes it as throbbing. Patient states it is over the substernal area. Patient admits to some nausea but denies any vomiting. PE Risk Factors: Negative for Cancer, OCP + Smoking + > 35, Prior DVT or PE, Recent immobilization, Recent surgery or Recent travel [facility] Medical History Pneumonia COPD (chronic obstructive pulmonary disease) Environmental allergies Anemia Depression Asthma Home Medications ???Medication ???Instructions ???Recorded ???Last Taken ???Type montelukast 10 mg tablet 10 mg PO DAILY allergies 03/13/18 02/19/25 History albuterol sulfate 90 mcg/actuation 1 - 2 puff inhalation Q4H PRN 02/19/25 History aerosol inhaler Wheezing bupropion HCl 150 mg 24 hr tablet, 150 mg PO DAILY mood 09/03/24 History extended release cetirizine 10 mg tablet 10 mg PO DAILY allergies 09/03/24 02/20/25 History cyclosporine 0.05 % eye drops in a 1 drp ophthalmic (eye) BID 09/0302/19/25 History dropperette famotidine 20 mg tablet 20 mg PO BID PRN stomach upset 02/19/25 History ferrous sulfate 325 mg (65 mg 325 mg PO DAILY iron supplement 02/20/25 History iron) tablet (FeroSul) fluticasone fur. 200 mcg-umeclid 1 ea inhalation DAILY breathing 02/20/25 History 62.5 mcg-vilant 25 mcg inhalat.powder (Trelegy Ellipta) potassium chloride 20 mEq 20 meq PO DAILY supplement 5 02/19/25 History tablet,extended release(part/cryst) sertraline 50 mg tablet 50 mg PO DAILY mood 09/03/2402/20 History naproxen 500 mg tablet 500 mg PO BID knee pain #10 tabs 0 11/13/24 02/05/25 Rx acetaminophen 500 mg capsule 1,000 mg PO Q6H PRN pain 02/20/25 02/20/25 History bumetanide 2 mg tablet 2 mg PO DAILY leg swelling 5 02/20/25 History fluorometholone 0.1 % eye 1 drp ophthalmic (eye) BID 5 02/20/25 History drops,suspension ibuprofen 200 mg capsule 600 mg PO PRN pain 02/20/25 History prednisone 20 mg tablet 60 mg (3 x 20 mg) PO DAILY #15 Unknown Rx TABLETS Allergy/AdvReac Type Severity Reaction Status Date / Time No Known Allergies Allergy Verified 02/20/25 09:36 Family History Other Cancer Surgical History Hx of knee surgery Hx of section Social History housing: house Smoking Status: Former smoker ROS ROS ED Constitutional Constitutional ED: Reports fever(s) and sweats; Denies chills Eyes Eyes: Reports blurry vision; Denies diplopia ENT ENT ED: Reports rhinorrhea; Denies sore throat Cardiovascular Cardiovascular: Reports chest pain; Denies palpitations Respiratory/Chest Respiratory/Chest: Reports cough and dyspnea Gastrointestinal Gastrointestinal: Reports nausea; Denies vomiting Genitourinary Genitourinary ED: Denies dysuria or hematuria Musculoskeletal Musculoskeletal: Reports back pain; Denies neck pain Integumentary Denies abscess or rash Neurologic Neurologic: Reports headache(s); Denies weakness Allergic/Immunologic Allergic/Immunologic ED: Denies mouth swelling or urticaria EXAM Physical Exam Const Vital Signs: 02/20/25 09:36 02/20/25 09:39 02/20/25 09:58 Temperature 99.3 F H 99.3 F H Temperature Source Oral Oral Pulse Rate 114 H 99 Respiratory Rate 20 H 25 H Resp (more content not included)... Normal [facility] Eosinophil percentageOrdered By: Neo Phelps on 02-20-2025 Eosinophils/100 WBC (Bld) 0.5 % 0-5 [facility] Erythrocyte distribution wid th ratioOrdered By: Neo Phelps on 02-20-2025 Erythrocyte distribution width (RBC) [Ratio] 15.9 % High 11.6-14.6 [facility] Erythrocyte distribution wid th standard deviationOrdered By: Neo Phelps on 02-20-2025 Erythrocyte distribution width (RBC) [Ratio] 44.2 fl High 35.1-43.9 [facility] Glomerular filtration rate ( GFR) estimation/1.73 sq m using serum, plasma, or whole bOrdered By: Neo Phelps on 02-20-2025 GFR/1.73 sq M.predicted among non-blacks MDRD (S/P/Bld) [Vol rate/Area] 119 mL/min/{1.73_m2} >60 [facility] Comment on above: mL/min/1.73m2 CKD-EP I Creatinine Equation (2020) Hematocrit Auto (Bld) [Volum e fraction]Ordered By: Neo Phelps on 02-20-2025 Hematocrit (Bld) [Volume fraction] 39.8 % 37-47 [facility] Hemoglobin measurementOrdere d By: Neo Phelps on 02-20-2025 Hemoglobin (Bld) [Mass/Vol] 11.8 g/dL Low 12.0-15.0 [facility] Immature granulocytes/100 WB C Auto (Bld)Ordered By: Neo Phelps on 02-20-2025 Immature granulocytes/100 WBC (Bld) 3.300 % High 0.0-0.9 [facility] Comment on above: IG% - Immature Granu locytes (promyelocytes, myelocytes and metamyelocytes) > 1% indicates that a LEFT SHIFT is Present. Influenza virus A and B and SARS-CoV-2 (COVID-19) and Respiratory syncytial virus RNAOrdered By: Neo Phelps on 02-20-2025 SARS-CoV-2 (COVID-19) RNA GUNJAN+probe Ql (Unsp spec) [facility] M100.678on 02-20-2025 M100.678 Pending SARS-CoV-2 (COVID 19) Negative INFLUENZA A Negative INFLUENZA B Negative RSV PCR Negative Normal [facility] Comment on above: Performed By: #### L 100.0100, L500.2500 #### [facility] [address] [place], [address] MCV (mean corpuscular volume ) determinationOrdered By: Neo Phelps on 02-20-2025 MCV (RBC) [Entitic vol] 76.8 fL Low 81-99 [facility] Mean corpuscular hemoglobin (MCH) determinationOrdered By: Neo Phelps on 02-20-2025 MCH (RBC) [Entitic mass] 22.8 pg Low 27.0-32.0 [facility] Mean corpuscular hemoglobin concentration (MCHC) determinationOrdered By: Neo Phelps on 02-20-2025 MCHC (RBC) [Mass/Vol] 29.6 g/dL Low 32-36 [facility] Mean platelet volume determi nationOrdered By: Neo Phelps on 02-20-2025 Platelet mean volume (Bld) [Entitic vol] 10.4 fL 6.2-12.0 [facility] Monocyte percentageOrdered B y: Neo Phelps on 02-20-2025 Monocytes/100 WBC (Bld) 9.6 % 0-10 [facility] Neutrophil percentageOrdered By: Neo Phelps on 02-20-2025 Neutrophils/100 WBC (Bld) 45.2 % Low 47-70 [facility] Nucleated red blood cell per centageOrdered By: Neo Phelps on 02-20-2025 Nucleated RBC/100 WBC (Bld) [Ratio] 0.5 % 0-5 [facility] Platelet countOrdered By: Cas Phelps on 02-20-2025 Platelets (Bld) [#/Vol] 120 10*3/uL Low 150-450 [facility] Potassium measurement (mass/ volume)Ordered By: Neo Phelps on 02-20-2025 Potassium (Unsp spec) [Mass/Vol] 4.3 mmol/L 3.3-5.1 [facility] RBC Auto (Bld) [#/Vol]Ordere d By: Neo Phelps on 02-20-2025 RBC (Bld) [#/Vol] 5.18 10*6/uL 4.2-5.4 [facility] Serum creatinine measurement (mass/volume)Ordered By: Neo Phelps on 02-20-2025 Creatinine [Mass/Vol] 0.67 mg/dL Low 0.70-1.20 [facility] Serum glucose measurement (m ass/volume)Ordered By: Neo Phelps on 02-20-2025 Glucose [Mass/Vol] 88 mg/dL 70-99 [facility] Serum or plasma calcium maryjane urement (mass/volume)Ordered By: Neo Phelps on 02-20-2025 Calcium [Mass/Vol] 8.4 mg/dL 7.6-11.0 [facility] Serum or plasma urea nitroge n measurement (mass/volume)Ordered By: Neo Phelps on 02-20-2025 Urea nitrogen [Mass/Vol] 10 mg/dL 4-19 [facility] Sodium levelOrdered By: Neo Phelps on 02-20-2025 Sodium [Moles/Vol] 139 mmol/L 133-145 [facility] White blood cell (WBC) count Ordered By: Neo Phelps on 02-20-2025 WBC (Bld) [#/Vol] 4.2 10*3/uL Low 4.4-11.0 [facility] 02-19-2025 CNPN Normal [facility] Sinus/Facial Boneon 02-13-20 Sinus/Facial Bone [facility] Imaging Services [address] [place] [address] Sinus/Facial Bone MR#: [id number] Acct: [id number] Name: TORRIE MARTINEZ Rep #: [id number] : 1990 F 34 From: Pool Cisneros MD PCP: Louann Bermeo NP-C Status: REG CLI Study: Sinus/Facial Bone Date of Exam: 02/12/25 Exam# [id number] Ordering Dr: Neo Boone PROCEDURE: SINUS/FACIAL BONE 02/12/2025 REASON FOR EXAM: CHRONIC SINUSITIS TECHNIQUE: Procedure Code: CTSI Modality: CT Procedure: SINUS/FACIAL BONE Coronal and Sagittal reconstruction series were provided. One or more dose reduction techniques were used (e.g., Automated exposure control, adjustment of the mA and/or kV according to patient size, use of iterative reconstruction technique). FINDINGS: Frontal: Near complete mucosal opacification in the right. Minimal mucosal thickening in the inferior medial aspect of the left frontal sinus. The bilateral sphenoethmoidal recesses are occluded with mucus. Ethmoid: No evidence of bilateral partial ethmoidectomies. Moderate mucosal thickening of several remaining bilateral ethmoid air cells. Sphenoid: Complete mucosal opacification of the bilateral sphenoid sinuses. Mucosal occlusion of the bilateral sphenoethmoidal recesses. Maxillary: Moderate to severe bilateral maxillary mucosal thickening. Evidence of bilateral nasal antral windows. Turbinates: Right-sided turbinectomy. Nasal Septum: Minimal rightward bowing. Mastoids/Middle Ears: Clear bilaterally. There is wall thickening of the bilateral maxillary and bilateral sphenoid sinuses, suggesting chronic sinusitis. CT/Sinus/Facial Bone IMPRESSION: Moderate to severe chronic-appearing paranasal sinusitis. Sinonasal surgery, as described above. Reading Location: [id number] CC: CHILD STUDY TEAM DIRECTORJeff Bermeo; JULIA Murdock Whistle Punk: Signed [facility] CNPNon 02-04-2025 [facility] Brain W/WO Contraston 2024 Brain W/WO Contrast [facility] Imaging Services [address] [place] [address] Brain W/WO Contrast MR#: [id number] Acct: [id number] Name: TORRIE MARTINEZ Rep #: [id number] : 1990 F 34 From: Alexis Newman MD PCP: Louann Bermeo CHILD STUDY TEAM DIRECTOR-C Status: REG CLI Study: Brain W/WO Contrast Date of Exam: 01/29/25 Exam# [id number] Ordering Dr: Dakota Barber MD PROCEDURE: BRAIN W/WO CONTRAST 01/29/2025 REASON FOR EXAM: ELEVATED OPTIC DISCS BILATERAL TECHNIQUE: Procedure Code: MRIBRWW Modality: MR Procedure: BRAIN W/WO CONTRAST Multiplanar and multisequence images were obtained. CONTRAST: Clariscan VOLUME: 30 mL COMPARISON: None. FINDINGS: There is a normal sulcal pattern and gyral configuration. There is no evidence of acute intracranial hemorrhage or infarction. The ness-white differentiation is well preserved. There is no evidence of restricted diffusion. The ventricles and basilar cisterns are normal. There are normal flow voids demonstrated in the recognized intracranial vessels. The cerebellum and brainstem are unremarkable. The cerebellar pontine angles are normal. The craniovertebral junction is normal. The sella and suprasellar regions are normal. The orbits and retro-orbital regions are unremarkable. There is no evidence of optic neuritis. The extraocular muscles are normal. The patient is status post bilateral uncinectomy, middle meatus antrostomy and ethmoidectomy. There is diffuse mucoperiosteal thickening of the paranasal sinuses with complete opacification of the right frontal sinus and both sphenoid sinuses. The mastoid air cells are clear. There is normal bone marrow signal in the skull base and calvarium. There is no abnormal intracranial contrast enhancement. MRI/Brain W/WO Contrast IMPRESSION: 1. No evidence of intracranial pathology. 2. No evidence of optic neuritis. 3. Status post FESS. 4. Severe pansinusitis. Reading Location: [id number] CC: OMAR Bermeo; Dr. Dakota Barber MD Whistle Punk: Signed Normal [facility] OT General Evaluationon OT General Evaluation [facility] Occupational Therapy [facility] [address] [place] [address] / REHABILITATION SERVICES INITIAL EVALUATION MR#: [id number] Acct: [id number] Name: TORRIE MARTINEZ Rep #: [id number] : 1990 34 From: Angela GARCIA/LYN Wu Referring Dr.: OMAR Bermeo Status: RE G RCR Insurance: [facility] Eval Date: [facility] Patient's Visit Information Visit Information Visit Information: TORRIE MARTINEZ is a 34 year old F, referred to Occupational Therapy by OMAR Jones, with a diagnosis of lymphedema. Date of Evaluation: 01/13/25 Occupational Therapist: JOSE Kearney/Bryce, CHTeresa Subjective Subjective: This 34 year old female was seen for OT eval with dx of B LE lymphedema. Pt states she has had symptoms of edema for over a year. pt states she has had water pills that helped and she does elevate her legs but continues to have swelling. pt states she recently increased her water pill and swelling did go down- (therapist advised pt to notify her Dr. she was doing this) pt states she has breathing issues and should be on 6 liters of O2 because of her breathing issues. Did not bring it with her- pt states she will have weight loss sx when it is approved through her insurance. Lymphedema (Circumferential Measure) Mid-foot: right 30cm left 30cm Ankle: right 35cm left 38cm Lower calf: right 53 left 51cm Largest calf: right 61cm left 64cm Below knee: right 59cm left 59cm Above knee: right 79 cm left 79cm Lower Limb Functional Index Lower Extremity Functional Score: 28 Goals Goal: Patient will demonstrate a 20% reduction in edema by discharge: Yes Goal: Patient will demonstrate adequate knowledge of self-massage by the end of the second week.: Yes Goal: Patient will demonstrate adequate knowledge of skin care and precautions by the end of the first week.: Yes Goal: Patient will select an appropriate compression garment and demonstrate adequate knowledge of correct donning technique, care and wearing schedule by discharge.: Yes Goal: Patient will voice understanding of need to replace compression garment every four to six months by discharge.: Yes Rehabilitation General Assessment: pt demo with bilateral LE edema- and demo need for skilled OT services 2-3 visits to ed. pt on life long mtg. of lymphedema. Today therapist ed. pt on dx and treatment options- pt is on fixed income so she is unable to buy compression devices at this time. therapist ed.pt on elevation- lymph stimulation ex. as well as gave handout on self manual lymph massage. pt receptive to this and states she will contact her drCourtney about the results she see from her water pill. pt would benefit from vaso pneumatic pump to assist pt in life long mtg of her LE lymphedema. pt demo understanding and agrees to POC. Rehabilitation Potential: Questionable Anticipated Interventions Anticipated Interventions: Education re assistive Equipment, Education re Diagnosis, Education re Life-long lymphedema Management, Education re Self-Bandaging Techniques, Education re Skin Care and Precautions, Education re Self Massage Techniques, Education re Correct Donning Tech,Care Wearing Sched Comp Garments, Caregiver Training and Home Program Visit Plan TEXT: Thank you for the opportunity to evaluate your patient. For Medicare and Medicare HMO plans, please review the plan of care and approve it. It will need to be FAXED BACK to us at [phone] for Medicare purposes. Please let me know if there are questions or concerns regarding this plan of care. Physician Signature: D ate: 01/13/25 1651 CC: OMAR Bermeo JOSEPH Signed For Medicare only, by signing this I certify the plan of care. Physicians Signature Date Normal [facility] CNOVon 01-01-2025 CNOV Normal [facility] CNCOon 12-30-2024 CNCO Letter Text Normal [facility] CNCOon 12-23-2024 CNCO Letter Text Normal [facility] CNPNon 12-23-2024 CNPN Normal [facility] CNCNPATEDon 12-17-2024 CNCNPATED Normal [facility] Basic metabolic 2000 panelon 12-12-2024 Anion gap [Moles/Vol] 13 mmol/L Normal 8-15 [facility] Comment on above: Order Comment: Speci men Type: BLOOD SPECIMENOrdering Facility: [facility] Address: [address] [place] [address] Performed By: #### 2 4321-2 ####[facility] LABCLIA [id number] [place] [address] [place] Calcium [Mass/Vol] 9.3 mg/dL Normal 8.5-10.2 [facility] Comment on above: Order Comment: Speci men Type: BLOOD SPECIMENOrdering Facility: [facility] Address: [address] [place] [address] Performed By: #### 2 4321-2 ####[facility] LABCLIA [id number] [place] [address] [place] Chloride [Moles/Vol] 98 mmol/L Normal 98-107 [facility] Comment on above: Order Comment: Speci men Type: BLOOD SPECIMENOrdering Facility: [facility] Address: [address] [place] [address] Performed By: #### 2 4321-2 ####[facility] LABCLIA [id number] [place] [address] [place] CO2 [Moles/Vol] 32 mmol/L High 22-30 [facility] Comment on above: Order Comment: Speci men Type: BLOOD SPECIMENOrdering Facility: [facility] Address: [address] [place] [id number] Performed By: #### 2 4321-2 ####[facility] LABIA [id number] [place] [id number] [place] Creatinine [Mass/Vol] 0.74 mg/dL Normal 0.58-0.96 [facility] Comment on above: Order Comment: Speci men Type: BLOOD SPECIMENOrdering Facility: [facility] Address: [address] [place] [address] Performed By: #### 2 4321-2 ####[facility] [id number] [place] [address] [place] eGFRcr SerPlBld CKD-EPI 2020 110 mL/min/1.73m??? Normal >=60 [facility] Comment on above: Order Comment: Yvani men Type: BLOOD SPECIMENOrdering Facility: [facility] Address: [address] [place] [address] Result Comment: Vi mated Glomerular Filtration Rate (eGFR) is calculated using the 2020 CKD-EPI creatinine equation. This equation utilizes serum creatinine, sex, and age as parameters. The creatinine assay has traceable calibration to isotope dilution-mass spectrometry. Refer to KDIGO guidelines for clinical interpretation. In patients with unstable renal function, e.g. those with acute kidney injury, the eGFR may not accurately reflect actual GFR. Performed By: #### 2 4321-2 ####[facility] LABIA [id number] [place] [id number] [place] Glucose [Mass/Vol] 75 mg/dL Normal 74-99 [facility] Comment on above: Order Comment: Yvani men Type: BLOOD SPECIMENOrdering Facility: [facility] Address: [address] [place] [address] Result Comment: The [place] Diabetes Association (ADA) provides guidance for cutoff values for fasting glucose and random glucose. The ADA defines fasting as no caloric intake for at least 8 hours. Fasting plasma glucose results between 100 to 125 mg/dL indicate increased risk for diabetes (prediabetes).Fasting plasma glucose results greater than or equal to 126 mg/dL meet the criteria for diagnosis of diabetes. In the absence of unequivocal hyperglycemia, results should be confirmed by repeat testing. In a patient with classic symptoms of hyperglycemia or hyperglycemic crisis, random plasma glucose results greater than or equal to 200 mg/dL meet the criteria for diagnosis of diabetes.Reference: Standards of Medical Care in Diabetes 2016, [place] Diabetes Association. Diabetes Care. 2016.39(Suppl 1). Performed By: #### 2 4321-2 ####[facility] LABIA [id number] [address] [address] [place] Potassium [Moles/Vol] 4.2 mmol/L Normal 3.7-5.1 [facility] Comment on above: Order Comment: Speci men Type: BLOOD SPECIMENOrdering Facility: [facility] Address: [address] [place] [address] Performed By: #### 2 1-2 ####[facility] LABIA [id number] [place] [address] [place] Sodium [Moles/Vol] 143 mmol/L Normal 136-144 [facility] Comment on above: Order Comment: Yvani men Type: BLOOD SPECIMENOrdering Facility: [facility] Address: [address] [place] [address] Performed By: #### 2 1-2 ####[facility] LABIA [id number] [place] [address] [place] Urea nitrogen [Mass/Vol] 9 mg/dL Normal 7-21 [facility] Comment on above: Order Comment: Speci men Type: BLOOD SPECIMENOrdering Facility: [facility] Address: [address] [place] [address] Performed By: #### 2 1-2 ####[facility] LABIA [id number] [address] [address] [place] CNPNon 11-27-2024 CNPN Normal [facility] CNCNPATEDon 11-26-2024 CNCNPATED Normal [facility] PAP TITRATION PSG (CPAP, BIP AP, ASV)on 11-19-2024 PAP TITRATION PSG (CPAP, BIPAP, ASV) Normal [facility] Emergency Department Summary on 11-13-2024 Emergency Department Summary [facility] Medical Records Department [address] [place] [address] Emergency Department Summary 11/13/24 MR#: [id number] Acct: [id number] Name: TORRIE MARTINEZ Rep #: [id number] : 1990 34 From: Randy Bailey MD PCP: Louann Bermeo, CHILD STUDY TEAM DIRECTOR-C Status:REG ER Location: ED HPI History of Present Illness Chief Complaint: Lower Extremity Injury Detail of Chief Complaint: Knee trauma, right Informant: patient Onset/Context/Timing Onset: Days Mechanism/Context: Fall Location of pain/injuries: Right Knee Quality of Pain: Dull and Aching Location: Me right side Current Severity: Mild Maximum Severity: Severe Worsened by: Movement and weightbearing Relieved by: Nothing Associated Symptoms Associated Symptoms: Positive for Loss of function and Inability to ambulate; Negative for Parasthesias or Weakness Narrative Narrative: Patient is a 34-year-old woman. She has chronic respiratory failure with hypoxia and hypercapnia. Prior similar symptoms: No Recent Illness/Hospitalizat ion: No PFSH PFSH Medical History Pneumonia COPD (chronic obstructive pulmonary disease) Environmental allergies Anemia Depression Asthma Home Medications ???Medication ???Instructions ???Recorded ???Last Taken ???Type montelukast 10 mg tablet 10 mg PO DAILY allergies 03/13/18 09/02/24 History albuterol sulfate 90 mcg/actuation 1 - 2 puff inhalation Q4H PRN Unknown History aerosol inhaler Wheezing bumetanide 1 mg tablet 1 mg PO DAILY edema 09/03/2409/02 History bupropion HCl 150 mg 24 hr tablet, 150 mg PO DAILY mood 09/03/24 History extended release cetirizine 10 mg tablet 10 mg PO DAILY allergies 09/03/24 09/02/24 History cyclosporine 0.05 % eye drops in a 1 drp ophthalmic (eye) BID 09/03 Unknown History dropperette famotidine 20 mg tablet 20 mg PO BID PRN stomach upset Unknown History ferrous sulfate 325 mg (65 mg 325 mg PO DAILY iron supplement 09/02/24 History iron) tablet (FeroSul) fluticasone fur. 200 mcg-umeclid 1 ea inhalation DAILY breathing 09/02/24 History 62.5 mcg-vilant 25 mcg inhalat.powder (Trelegy Ellipta) fluticasone propionate 50 1 spray intranasal BID allergy Unknown History mcg/actuation nasal symptoms spray,suspension potassium chloride 20 mEq 20 meq PO DAILY supplement 5 09/02/24 History tablet,extended release(part/cryst) sertraline 50 mg tablet 25 mg PO DAILY mood 09/03/24 Unkno wn History azithromycin 500 mg tablet 500 mg PO DAILY 5 days #5 tabs 07/02 Unknown Rx cefdinir 300 mg capsule 300 mg PO BID 7 days #14 caps 05/07/02 Unknown Rx guaifenesin 600 mg tablet, 1,200 mg (2 x 600 mg) PO BID #20 0 09/06/24 Unknown Rx extended release 12 hr (Mucinex) tabs prednisone 20 mg tablet 40 mg (2 x 20 mg) PO BREAKFAST 7 0 09/06/24 Unknown Rx days #14 tabs hydrocodone-acetamin ophen 5-325mg 1 tab PO Q6H PRN PRN Pain 3 days 11/13/24 Unknown Rx 5mg-325mg #10 TABLETS naproxen 500 mg tablet 500 mg PO BID #10 tabs 11/13/24 Un known Rx Allergy/AdvReac Type Severity Reaction Status Date / Time No Known Allergies Allergy Verified 11/13/24 18:46 Family History Other Cancer Surgical History Hx of knee surgery Hx of section Social History housing: house Smoking Status: Former smoker ROS ROS ED Musculoskeletal Musculoskeletal: Reports other Details: HPI narrative ; Denies arthralgias, back pain, myalgias or neck pain Integumentary Denies Abrasions or rash Neurologic Neurologic: Denies paresthesias or weakness Hematologic/Lymphati c Hematologic/Lymphati c: Denies easy bleeding or easy bruising EXAM Physical Exam Const Vital Signs: 11/13/24 18:44 Temperature 97.7 F L Temperature Source Temporal Pulse Rate 83 Respiratory Rate 17 Blood Pressure 142/86 H Blood Pressure Mean 104 Pulse Ox 93 Oxygen Delivery Method Nasal Cannula Oxygen Flow Rate (L/min) 2 Positive well nourished and well developed Constitutional Narrative: BMI greater than 50 General Appearance ED: well developed HEENT HEENT Narrative: HEENT is grossly unremarkable Eyes PERRL and EOMs intact bilaterally Neck full ROM Resp normal respiratory effort and clear to auscultation bilaterally Cardio regular rhythm, S1 normal heart sound and no murmurs Extremity Extremity Narrative: Unable to discern if there is any swelling of the right knee. Exam is limited due to body habitus. Patella is not ballotable. There is no obvious effusion. (more content not included)... Normal [facility] Knee 4 or More Viewson 11-13 Knee 4 or More Views [facility] Imaging Services [address] [place], [place] [address] Knee 4 or More Views MR#: [id number] Acct: [id number] Name: TORRIE MARTINEZ Rep #: [id number] : 1990 F 34 From: Rose Perry MD PCP: Louann Bermeo, CHILD STUDY TEAM DIRECTOR-C Status: REG ER Study: Knee 4 or More Views Date of Exam: 11/13/24 Exam# [id number] Ordering Dr: Randy Bailey MD PROCEDURE: KNEE 4 OR MORE VIEWS 11/13/2024 REASON FOR EXAM: INJURY/PAIN TECHNIQUE: KNEE 4 OR MORE VIEWS COMPARISON: None. FINDINGS: No evidence of acute fracture or dislocation. Mild to moderate degenerative changes of the knee. No knee joint effusion. RAD/Knee 4 or More Views IMPRESSION: No acute osseous abnormalities. Osteoarthrosis. Reading Location: [id number] CC: CHILD STUDY TEAM DIRECTOR-C Louann Bermeo; Dr. Randy Bailey MD Whistle Punk: Signed Normal [facility] Comprehensive metabolic 2000 panelon 10-28-2024 Albumin [Mass/Vol] 4.0 g/dL Normal 3.9-4.9 [facility] Comment on above: Order Comment: Speci men Type: BLOOD SPECIMENOrdering Facility: [facility] Address: [address] [place] [address] Performed By: #### 2 4323-8, ####[facility] MILLJAYLENEA [id number] [place] [address] [place] ALP [Catalytic activity/Vol] 84 U/L Normal 34-123 [facility] Comment on above: Order Comment: Speci men Type: BLOOD SPECIMENOrdering Facility: [facility] Address: [address] [place] [address] Performed By: #### 2 4323-8, ####[facility] HOSPITALNORMALIA [id number] [place] [address] [place] ALT [Catalytic activity/Vol] 11 U/L Normal 7-38 [facility] Comment on above: Order Comment: Speci men Type: BLOOD SPECIMENOrdering Facility: [facility] Address: [address] [place] [address] Performed By: #### 2 4323-8, ####[facility] MILLMAPLE HEIGHTSNCLIA [id number] [place] [address] [place] Anion gap [Moles/Vol] 15 mmol/L Normal 8-15 [facility] Comment on above: Order Comment: Speci men Type: BLOOD SPECIMENOrdering Facility: [facility] Address: [address] [place] [address] Performed By: #### 2 4323-8, ####[facility] MILLMAPLE HEIGHTSNCLIA [id number] [place] [address] [place] AST [Catalytic activity/Vol] 12 U/L Low 13-35 [facility] Comment on above: Order Comment: Speci men Type: BLOOD SPECIMENOrdering Facility: [facility] Address: [address] [place], [place] [address] Performed By: #### 2 4323-8, ####[facility] HOSPITALNCSALT [facility] [id number] [place] [address] [place] Bilirubin [Mass/Vol] 0.2 mg/dL Normal 0.2-1.3 [facility] Comment on above: Order Comment: Speci men Type: BLOOD SPECIMENOrdering Facility: [facility] Address: [address] [place] [address] Performed By: #### 2 4323-8, ####[facility] HOSPITALNCS[facility] [id number] [place] [address] [place] Calcium [Mass/Vol] 9.5 mg/dL Normal 8.5-10.2 [facility] Comment on above: Order Comment: Speci men Type: BLOOD SPECIMENOrdering Facility: [facility] Address: [address] [place] [address] Performed By: #### 2 4323-8, ####[facility] MIRAMARA [id number] [place] [address] [place] Chloride [Moles/Vol] 97 mmol/L Low 98-107 [facility] Comment on above: Order Comment: Speci men Type: BLOOD SPECIMENOrdering Facility: [facility] Address: [address] [place] [address] Performed By: #### 2 4323-8, ####[facility] HOSPITALNCA [id number] [place] [address] [place] CO2 [Moles/Vol] 29 mmol/L Normal 22-30 [facility] Comment on above: Order Comment: Speci men Type: BLOOD SPECIMENOrdering Facility: [facility] Address: [address] [place], [place] [address] Performed By: #### 2 4323-8, ####[facility] SHANNONST. VINCENT RANDOLPH HOSPITALGEORGEA [id number] [place] [address] [place] Creatinine [Mass/Vol] 0.64 mg/dL Normal 0.58-0.96 [facility] Comment on above: Order Comment: Michele men Type: BLOOD SPECIMENOrdering Facility: [facility] Address: [address] [place] [address] Performed By: #### 2 4323-8, ####[facility] HOSPITALNCLIA [id number] [place] [address] [place] Creatinine and Glomerular filtration rate.predicted panel (S/P/Bld) 121 mL/min/1.73m??? Normal >=60 [facility] Comment on above: Order Comment: Michele ash Type: BLOOD SPECIMENOrdering Facility: [facility] Address: [address] [place] [address] Result Comment: Vi mated Glomerular Filtration Rate (eGFR) is calculated using the 2020 CKD-EPI creatinine equation. This equation utilizes serum creatinine, sex, and age as parameters. The creatinine assay has traceable calibration to isotope dilution-mass spectrometry. Refer to KDIGO guidelines for clinical interpretation. In patients with unstable renal function, e.g. those with acute kidney injury, the eGFR may not accurately reflect actual GFR. Performed By: #### 2 4323-8, ####[facility] MIRAMARA [id number] [place] [address] [place] Glucose [Mass/Vol] 85 mg/dL Normal 74-99 [facility] Comment on above: Order Comment: Michele mihir Type: BLOOD SPECIMENOrdering Facility: [facility] Address: [address] [place] [address] Result Comment: The [place] Diabetes Association (ADA) provides guidance for cutoff values for fasting glucose and random glucose. The ADA defines fasting as no caloric intake for at least 8 hours. Fasting plasma glucose results between 100 to 125 mg/dL indicate increased risk for diabetes (prediabetes).Fasting plasma glucose results greater than or equal to 126 mg/dL meet the criteria for diagnosis of diabetes. In the absence of unequivocal hyperglycemia, results should be confirmed by repeat testing. In a patient with classic symptoms of hyperglycemia or hyperglycemic crisis, random plasma glucose results greater than or equal to 200 mg/dL meet the criteria for diagnosis of diabetes.Reference: Standards of Medical Care in Diabetes 2016, [place] Diabetes Association. Diabetes Care. 2016.39(Suppl 1). Performed By: #### 2 4323-8, 36354-1 ####[facility] CENTERSANDI [id number] [place] [address] [place] Potassium [Moles/Vol] 4.3 mmol/L Normal 3.7-5.1 [facility] Comment on above: Order Comment: Speci men Type: BLOOD SPECIMENOrdering Facility: [facility] Address: [address] [place] [address] Performed By: #### 2 4323-8, ####[facility] MIRAMARAlexis [id number] [place] [address] [place] Protein [Mass/Vol] 6.0 g/dL Low 6.3-8.0 [facility] Comment on above: Order Comment: Speci men Type: BLOOD SPECIMENOrdering Facility: [facility] Address: [address] [place] [address] Performed By: #### 2 4323-8, ####[facility] HOSPITALKAREN [id number] [place] [address] [place] Sodium [Moles/Vol] 141 mmol/L Normal 136-144 [facility] Comment on above: Order Comment: Speci men Type: BLOOD SPECIMENOrdering Facility: [facility] Address: [address] [place] [address] Performed By: #### 2 4323-8, 77723-0 ####[facility] MILLTOWNCLIA [id number] [place] [address] [place] Urea nitrogen [Mass/Vol] 14 mg/dL Normal 7-21 [facility] Comment on above: Order Comment: Speci men Type: BLOOD SPECIMENOrdering Facility: [facility] Address: [address] [place] [address] Performed By: #### 2 4323-8, ####[facility] CENTERWNCLIA [id number] [place] [id number] [place] ECG COMPLETEon 10-28-2024 ECG COMPLETE Normal [facility] [facility] Ferritin SerPl-mCncon 2024 Ferritin [Mass/Vol] 43.3 ng/mL Normal 14.7-205.1 [facility] Comment on above: Order Comment: Speci men Type: BLOOD SPECIMENOrdering Facility: [facility] Address: [address] [place] [address] Performed By: #### 3 3762-6, 2276-4, 94705-1 ####[facility] LABIA [id number] [place] [address] [place] Iron and Iron binding capaci ty panelon 10-28-2024 Iron [Mass/Vol] 32 ug/dL Low 41-186 [facility] Comment on above: Order Comment: Speci men Type: BLOOD SPECIMENOrdering Facility: [facility] Address: [address] [place] [address] Performed By: #### 3 3762-6, 2276-4, 30075-6 ####[facility] LABIA [id number] [place] [address] [place] Iron binding capacity [Mass/Vol] 442 ug/dL High 232-386 [facility] Comment on above: Order Comment: Speci men Type: BLOOD SPECIMENOrdering Facility: [facility] Address: [address] [place] [address] Performed By: #### 3 3762-6, 2276-4, 34288-9 ####[facility] LABIA [id number] [place] [address] [place] Iron/TIBC [Molar ratio] 7.2 % Low 15.0-57.0 [facility] Comment on above: Order Comment: Speci men Type: BLOOD SPECIMENOrdering Facility: [facility] Address: [address] [place] [address] Performed By: #### 3 3762-6, 2276-4, 44168-3 ####[facility] [id number] [place] [address] [place] Magnesium [facility] 10-28 Magnesium [Mass/Vol] 2.0 mg/dL Normal 1.7-2.3 [facility] Comment on above: Order Comment: Speci men Type: BLOOD SPECIMENOrdering Facility: [facility] Address: [address] [place] [address] Performed By: #### 2 4323-8, 09268-6 ####[facility] [id number] [place] [address] [place] NT-proBNP SerPl-ncon 10-28 Natriuretic peptide.B prohormone N-Terminal [Mass/Vol] 105 pg/mL Normal <125 [facility] Comment on above: Order Comment: Speci men Type: BLOOD SPECIMENOrdering Facility: [facility] Address: [address] [place] [address] Performed By: #### 3 3762-6, 2276-4, 84364-7 ####[facility] [id number] [place] [id number] [place] TOXICOLOGY SCREEN, ROUTINE U RINEon 10-28-2024 Amphetamines Confirm (U) [Mass/Vol] Negative Normal Negative [facility] Comment on above: Order Comment: Speci men Type: URINE SPECIMENOrdering Facility: [facility] Address: [address] [place] [address] Result Comment: Cuto ff threshold at 1000 ng/mL. Performed By: #### U TOX2 ####[facility] LABCLIA [id number] [place] [id number] [place] BARBITURATES, URINE Negative Normal Negative [facility] Comment on above: Order Comment: Speci men Type: URINE SPECIMENOrdering Facility: [facility] Address: [address] [place] [address] Result Comment: Cuto ff threshold at 200 ng/mL. Performed By: #### U TOX2 ####[facility] LABCLIA [id number] [place] [address] [place] BENZODIAZEPINES, URINE Negative Normal Negative [facility] Comment on above: Order Comment: Speci men Type: URINE SPECIMENOrdering Facility: [facility] Address: [address] [place] [address] Result Comment: Cuto ff threshold at 200 ng/mL. Performed By: #### U TOX2 ####[facility] LABCLIA [id number] [place] [address] [place] Cannabinoids Screen Ql (U) Negative Normal Negative [facility] Comment on above: Order Comment: Speci men Type: URINE SPECIMENOrdering Facility: [facility] Address: [address] [place] [address] Result Comment: Cuto ff threshold at 50 ng/mL. Performed By: #### U TOX2 ####[facility] LABCLIA [id number] [place] [address] [place] Cocaine Ql (U) Negative Normal Negative [facility] Comment on above: Order Comment: Speci men Type: URINE SPECIMENOrdering Facility: [facility] Address: [address] [place] [address] Result Comment: Cuto ff threshold at 300 ng/mL. Performed By: #### U TOX2 ####[facility] LABCLIA [id number] [place] [address] [place] Ethanol (U) [Mass/Vol] <11 Normal <11 [facility] Comment on above: Order Comment: Speci men Type: URINE SPECIMENOrdering Facility: [facility] Address: [address] [place] [address] Performed By: #### U TOX2 ####[facility] LABCLIA [id number] [place] [address] [place] fentaNYL Screen Ql (U) Negative Normal Negative [facility] Comment on above: Order Comment: Speci men Type: URINE SPECIMENOrdering Facility: [facility] Address: [address] [place] [address] Result Comment: Cuto ff threshold at 5 ng/mL. Performed By: #### U TOX2 ####[facility] LABIA [id number] [place] [address] [place] Opiates Screen Ql (U) Negative Normal Negative [facility] Comment on above: Order Comment: Speci men Type: URINE SPECIMENOrdering Facility: [facility] Address: [address] [place] [address] Result Comment: Cuto ff threshold at 300 ng/mL. Performed By: #### U TOX2 ####[facility] LABIA [id number] [place] [address] [place] oxyCODONE cutoff Screen (U) [Mass/Vol] Negative Normal Negative [facility] Comment on above: Order Comment: Speci men Type: URINE SPECIMENOrdering Facility: [facility] Address: [address] [place] [address] Result Comment: Cuto ff threshold at 100 ng/mL. Performed By: #### U TOX2 ####[facility] LABIA [id number] [place] [address] [place] Phencyclidine Ql (U) Negative Normal Negative [facility] Comment on above: Order Comment: Speci men Type: URINE SPECIMENOrdering Facility: [facility] Address: [address] [place] [address] Result Comment: Cuto ff threshold at 25 ng/mL. Performed By: #### U TOX2 ####[facility] LABCLIA [id number] [facility] [id number] [place] [address] [place] US ABD RIGHT UPPER QUADRANTo n 10-28-2024 US ABD RIGHT UPPER QUADRANT Normal [facility] US Abdomen RUQon 10-28-2024 IMPRESSION: Gallbladder sludge. Whistle Punk: PSCB Transcribe Date/Time: Oct 28 2024 3:10P Dictated by : YAQUELIN RIVERA MD This examination was interpreted and the report reviewed and electronically signed by: YAQUELIN RIVERA MD on Oct 28 2024 3:14PM [facility] DIVISION OF RADIOLOGY * * *Final Report* * * DATE OF EXAM: Oct 28 2024 2:27PM WRU 1032 - US ABD RIGHT UPPER QUADRANT / PROCEDURE REASON: multiple diagnoses * * * * Physician Interpretation * * * * EXAM TITLE: US ABD RIGHT UPPER QUADRANT HISTORY: Preop. TECHNIQUE: Sonography of the right upper quadrant was performed. Images were obtained and stored in a permanent archive. MQ: URUQ_1 COMPARISON: None. RESULT: Pancreas: Normal sonographic appearance in the visualized portion. Portions obscured: tail Liver: Echotexture: Homogeneous Echogenicity: Normal Surface contour: Smooth Lesions: None. MPV: Patent. Biliary: No intrahepatic biliary duct dilation. CBD: 3 mm in diameter. Gallbladder: Normal caliber -Contents: No cholelithiasis however small amount of sludge is visualized. -Wall: 2 mm in thickness -Other: Negative sonographic Durham's sign. Right Kidney: Within normal limits. Ascites: None. DIVISION OF RADIOLOGY Provider, [facility] [place] - 10/28/2024 * * *Final Report* * * DATE OF EXAM: Oct 28 2024 2:27PM WRU 1032 - US ABD RIGHT UPPER QUADRANT / PROCEDURE REASON: multiple diagnoses * * * * Physician Interpretation * * * * EXAM TITLE: US ABD RIGHT UPPER QUADRANT HISTORY: Preop. TECHNIQUE: Sonography of the right upper quadrant was performed. Images were obtained and stored in a permanent archive. MQ: URUQ_1 COMPARISON: None. RESULT: Pancreas: Normal sonographic appearance in the visualized portion. Portions obscured: tail Liver: Echotexture: Homogeneous Echogenicity: Normal Surface contour: Smooth Lesions: None. MPV: Patent. Biliary: No intrahepatic biliary duct dilation. CBD: 3 mm in diameter. Gallbladder: Normal caliber -Contents: No cholelithiasis however small amount of sludge is visualized. -Wall: 2 mm in thickness -Other: Negative sonographic Durham's sign. Right Kidney: Within normal limits. Ascites: None. IMPRESSION IMPRESSION: Gallbladder sludge. Whistle Punk: SEB Transcribe Date/Time: Oct 28 2024 3:10P Dictated by : YAQUELIN RIVERA MD This examination was interpreted and the report reviewed and electronically signed by: YAQUELIN RIVERA MD on Oct 28 2024 3:14PM [facility] Radiology Study observation (narrative) [facility] US Abdomen RUQOrdered By: Cc f Provider on 10-28-2024 [facility] CNOVon 09-25-2024 CNOV Normal [facility] CNOVon 09-18-2024 CNOV Normal [facility] 25(OH)D3 [facility]-ncon 2024 25-hydroxyvitamin D3 [Mass/Vol] 9.6 ng/mL Low 31.0-80.0 [facility] Comment on above: Order Comment: Michele ash Type: BLOOD SPECIMENOrdering Facility: [facility] Address: [address] [place] [address] Performed By: #### 1 989-3 ####[facility] LABCLIA [id number] [place] [address] [place] Folate SerPl-ncon 09-18-19 25 Folate [Mass/Vol] 8.8 ng/mL Normal >4.7 [facility] Comment on above: Order Comment: Michele ash Type: BLOOD SPECIMENOrdering Facility: [facility] Address: [address] [place] [address] Performed By: #### 2 132-9, 2284-8, 3016-3, 2730-8 ####[facility] LABCLIA [id number] [address] [address] [place] PTH-Intact SerPl-mCncon 05-1 Parathyrin.intact [Mass/Vol] 125 pg/mL High 15-65 [facility] Comment on above: Order Comment: Speci men Type: BLOOD SPECIMENOrdering Facility: [facility] Address: [address] [place] [address] Performed By: #### 2 132-9, 2284-8, 3016-3, 2730-8 ####[facility] LABIA [id number] [place] [id number] [place] TSH SerPl-aCncon 09-17-2024 TSH Qn 2.070 m[IU]/L Normal 0.270-4.200 [facility] Comment on above: Order Comment: Speci men Type: BLOOD SPECIMENOrdering Facility: [facility] Address: [address] [place] [address] Result Comment: If t he patient is , TSH reference range varies by gestational period:First Trimester (weeks 9-12): 0.180-2.990 mIU/LSecond Trimester: 0.110-3.980 mIU/LThird Trimester: 0.480-4.710 mIU/Roberto Wu et al. A Practical Approach for the Verifications and Determination of Site- and Trimester-Specific Reference Intervals for Thyroid Function tests in . Thyroid, 2019:29:3:412-420. Jensen Gutiererz, et al. 2017 Guidelines of the [place] Thy[employer] for the Diagnosis and Management of Thyroid Disease during and the . Thyroid, 2017:27:3:315-389. Performed By: #### 2 132-9, 2284-8, 3016-3, 2730-8 ####[facility] LABCLIA [id number] [address] [address] [place] VITAMIN B1 (THIAMINE), WHOLE BLOODon 09-17-2024 Thiamine (Bld) [Moles/Vol] 179.7 nmol/L Normal 84.3-213.3 [facility] Comment on above: Order Comment: Michele ash Type: BLOOD SPECIMENOrdering Facility: [facility] Address: [address] [place] [address] Result Comment: This assay measures the concentration of thiamine diphosphate (TDP), the primary active form of vitamin B1. Approximately 90 percent of vitamin B1 present in whole blood is TDP. Thiamine and thiamine monophosphate, which comprise the remaining 10 percent, are not measured.This test was developed, and its performance characteristics determined by the [facility] Department of Pathology and Laboratory Medicine. It has not been cleared or approved by the FDA. The [facility] Department of Pathology and Laboratory Medicine is regulated under CLIA as qualified to perform high-complexity testing. This test is used for clinical purposes. It should not be regarded as investigational or for research. Performed By: #### B 1WB ####[facility] LABIA [id number] [place] [address] [place] Vit B12 SerPl-ncon 025 Cobalamin (Vitamin B12) [Mass/Vol] 631 pg/mL Normal 232-1245 [facility] Comment on above: Order Comment: Michele ash Type: BLOOD SPECIMENOrdering Facility: [facility] Address: [address] [place] [address] Performed By: #### 2 132-9, 2284-8, 3016-3, 2731-8 ####[facility] [id number] [place] [id number] [place] XR CHEST 2V FRONTAL/LATon XR CHEST 2V FRONTAL/LAT Normal C [facility] XR Chest PA and Lateralon IMPRESSION: No acute radiographic abnormality. Stable elevation of the left hemidiaphragm. Whistle Punk: SEB Transcribe Date/Time: Sep 17 2024 10:38A Dictated by : SHAKEEL BROWNING MD This examination was interpreted and the report reviewed and electronically signed by: SHAKEEL BROWNING MD on Sep 17 2024 10:39AM EST DIVISION OF RADIOLOGY * * *Final Report* * * DATE OF EXAM: Sep 17 2024 8:53AM WOX 5291 - XR CHEST 2V FRONTAL/LAT / PROCEDURE REASON: multiple diagnoses * * * * Physician Interpretation * * * * EXAMINATION: CHEST RADIOGRAPH (2 VIEW FRONTAL & LATERAL) CLINICAL HISTORY: BOLA (obstructive sleep apnea) Preoperative testing MQ: XC2_6 EXAM DATE/TIME: 09/17/2024 8:53 AM COMPARISON: Chest x-ray dated 06/15/2018 RESULT: Lines, tubes, and devices: None. Lungs and pleura: No consolidation. No lung mass. No pleural effusion. No pneumothorax. Stable elevation of the left hemidiaphragm. Cardiomediastinal silhouette: Normal cardiomediastinal silhouette. Bones and soft tissues: Unremarkable. DIVISION OF RADIOLOGY Provider, [facility] [place] - 09/17/2024 * * *Final Report* * * DATE OF EXAM: Sep 17 2024 8:53AM WOX 5291 - XR CHEST 2V FRONTAL/LAT / PROCEDURE REASON: multiple diagnoses * * * * Physician Interpretation * * * * EXAMINATION: CHEST RADIOGRAPH (2 VIEW FRONTAL & LATERAL) CLINICAL HISTORY: BOLA (obstructive sleep apnea) Preoperative testing MQ: XC2_6 EXAM DATE/TIME: 09/17/2024 8:53 AM COMPARISON: Chest x-ray dated 06/15/2018 RESULT: Lines, tubes, and devices: None. Lungs and pleura: No consolidation. No lung mass. No pleural effusion. No pneumothorax. Stable elevation of the left hemidiaphragm. Cardiomediastinal silhouette: Normal cardiomediastinal silhouette. Bones and soft tissues: Unremarkable. IMPRESSION IMPRESSION: No acute radiographic abnormality. Stable elevation of the left hemidiaphragm. Whistle Punk: PSCB Transcribe Date/Time: Sep 17 2024 10:38A Dictated by : SHAKEEL BROWNING MD This examination was interpreted and the report reviewed and electronically signed by: SHAKEEL BROWNING MD on Sep 17 2024 10:39AM [facility] Radiology Study observation (narrative) Lj Galdamez XR Chest PA and LateralOrder ed By: Cc Provider on 09-17-2024 [facility] CNCOon 09-15-2024 CNCO Letter Text Normal [facility] Culture, Blood (WB)on 2024 CUB Blood cultures x2, from two different sites No growth in 5 days. Normal [facility] Comment on above: Performed By: #### L 100.0100, L500.2500 #### [facility] [address] [place], [address] Basic Metabolic Profile (BMP )on 09-07-2024 BUN Normal 4-19 [facility] Comment on above: Result Comment: Canc elled via OM: Order cancelled - Patient discharged Performed By: #### L 100.0100, L500.2500 #### [facility] [address] [place], [address] BUN/CRE Normal 10-20 [facility] Comment on above: Result Comment: Canc elled via OM: Order cancelled - Patient discharged Performed By: #### L 100.0100, L500.2500 #### [facility] [address] [place], [address] Calcium Normal 7.6-11.0 [facility] Comment on above: Result Comment: Canc elled via OM: Order cancelled - Patient discharged Performed By: #### L 100.0100, L500.2500 #### [facility] [address] [place], [address] CL Normal 98-108 [facility] Comment on above: Result Comment: Canc elled via OM: Order cancelled - Patient discharged Performed By: #### L 100.0100, L500.2500 #### [facility] [address] [place], [address] CO2 Normal 21.0-32.0 [facility] Comment on above: Result Comment: Canc elled via OM: Order cancelled - Patient discharged Performed By: #### L 100.0100, L500.2500 #### [facility] [address] [place], [address] CREAT,SERUM Normal 0.70-1.20 [facility] Comment on above: Result Comment: Canc elled via OM: Order cancelled - Patient discharged Performed By: #### L 100.0100, L500.2500 #### [facility] [address] [place], [address] eGFR Normal >60 [facility] Comment on above: Result Comment: Canc elled via OM: Order cancelled - Patient discharged Performed By: #### L 100.0100, L500.2500 #### [facility] [address] [place], [address] GAP Normal 5-15 [facility] Comment on above: Result Comment: Canc elled via OM: Order cancelled - Patient discharged Performed By: #### L 100.0100, L500.2500 #### [facility] [address] [place], [address] GLU Normal 70-99 [facility] Comment on above: Result Comment: Canc elled via OM: Order cancelled - Patient discharged Performed By: #### L 100.0100, L500.2500 #### [facility] [address] [place], [address] Potassium Normal 3.3-5.1 [facility] Comment on above: Result Comment: Canc elled via OM: Order cancelled - Patient discharged Performed By: #### L 100.0100, L500.2500 #### [facility] [address] [place], [address] Basic Metabolic Profile (BMP) Normal 133-145 [facility] Comment on above: Result Comment: Canc elled via OM: Order cancelled - Patient discharged Performed By: #### L 100.0100, L500.2500 #### [facility] [address] [place], [address] CBC W/Diff, Automatedon 05-0 Absolute Neut Normal 2.0-7.7 [facility] Comment on above: Result Comment: Canc elled via OM: Order cancelled - Patient discharged Performed By: #### L 100.0100, L500.2500 #### [facility] [address] [place], [address] HCT Normal 37-47 [facility] Comment on above: Result Comment: Canc elled via OM: Order cancelled - Patient discharged Performed By: #### L 100.0100, L500.2500 #### [facility] [address] [place], [address] HGB Normal 12.0-15.0 [facility] Comment on above: Result Comment: Canc elled via OM: Order cancelled - Patient discharged Performed By: #### L 100.0100, L500.2500 #### [facility] [address] [place], [address] MCH Normal 27.0-32.0 [facility] Comment on above: Result Comment: Canc elled via OM: Order cancelled - Patient discharged Performed By: #### L 100.0100, L500.2500 #### [facility] [address] [place], [address] MCHC Normal 32-36 [facility] Comment on above: Result Comment: Canc elled via OM: Order cancelled - Patient discharged Performed By: #### L 100.0100, L500.2500 #### [facility] [address] [place], [address] MCV Normal 81-99 [facility] Comment on above: Result Comment: Canc elled via OM: Order cancelled - Patient discharged Performed By: #### L 100.0100, L500.2500 #### [facility] [address] [place], [address] NEUT% Normal 47-70 [facility] Comment on above: Result Comment: Canc elled via OM: Order cancelled - Patient discharged Performed By: #### L 100.0100, L500.2500 #### [facility] [address] [facility] [address] PLT Normal 150-450 [facility] Comment on above: Result Comment: Canc elled via OM: Order cancelled - Patient discharged Performed By: #### L 100.0100, L500.2500 #### [facility] [address] [facility] [address] RBC Normal 4.2-5.4 [facility] Comment on above: Result Comment: Canc elled via OM: Order cancelled - Patient discharged Performed By: #### L 100.0100, L500.2500 #### [facility] [address] [facility] [address] RDW CV Normal 11.6-14.6 [facility] Comment on above: Result Comment: Canc elled via OM: Order cancelled - Patient discharged Performed By: #### L 100.0100, L500.2500 #### [facility] [address] [facility] [address] RDW SD Normal 35.1-43.9 [facility] Comment on above: Result Comment: Canc elled via OM: Order cancelled - Patient discharged Performed By: #### L 100.0100, L500.2500 #### [facility] [address] [facility] [address] WBC Normal 4.4-11.0 [facility] Comment on above: Result Comment: Canc elled via OM: Order cancelled - Patient discharged Performed By: #### L 100.0100, L500.2500 #### [facility] [address] [facility] [address] Respiratory Cultureon 2024 RESPC #1 Penicillin is the drug of choice for Beta Streptococcal infections. For Penicillin allergic patients, Erythromycin may be used. Microorganism Spec Cult No Haemophilus, Streptococcus pneumoniae, or Staphylococcus aureus isolated. Streptococcus group F Amount Growth Rare Normal [facility] Comment on above: Performed By: #### L 100.0100, L500.2500 #### [facility] [address] [place], [address] Absolute lymphocyte countOrd ered By: Evans Carter on 09-06-2024 Lymphocytes Auto (Unsp spec) [#/Vol] 2.13 10*3/uL 0.83-4.51 [facility] Absolute neutrophil countOrd ered By: Evans Carter on 09-06-2024 Neutrophils (Bld) [#/Vol] 8.1 10*3/uL High 2.0-7.7 [facility] Anion gap in Serum or Plasma Ordered By: Evans Cartre on 09-06-2024 Anion gap [Moles/Vol] 10 mmol/L 5-15 [facility] Automated lymphocyte count a s percentage of total leukocytesOrdered By: Evans Carter on 09-06-2024 Lymphocytes/100 WBC Auto (Unsp spec) 18.9 % Low 19-41 [facility] BUN/creatinine ratioOrdered By: Evans Carter on 09-06-2024 Urea nitrogen/Creatinine [Mass ratio] 24.7 mg/mg High 10-20 [facility] Basic Metabolic Profile (BMP )on 09-06-2024 BUN/CRE 24.7 RATIO High 10-20 [facility] Comment on above: Performed By: #### L 500.2500, L100.0100 #### [facility] [address] [place], [address] Calcium [Mass/Vol] 8.5 mg/dL Normal 7.6-11.0 [facility] [facility] Comment on above: Performed By: #### L 500.2500, L100.0100 #### [facility] [address] [place], [address] Chloride [Moles/Vol] 98 mmol/L Normal 98-108 [facility] Comment on above: Performed By: #### L 500.2500, L100.0100 #### [facility] [address] [place], [address] CO2 [Moles/Vol] 34.5 mmol/L High 21.0-32.0 [facility] Comment on above: Performed By: #### L 500.2500, L100.0100 #### [facility] [address] [place], [address] Creatinine [Mass/Vol] 0.51 mg/dL Low 0.70-1.20 [facility] Comment on above: Performed By: #### L 500.2500, L100.0100 #### [facility] [address] [place], [address] ECRCL 310.55 ml/min High 50-250 [facility] Comment on above: Performed By: #### L 500.2500, L100.0100 #### [facility] [address] [place], [address] GAP 10 Normal 5-15 [facility] Comment on above: Performed By: #### L 500.2500, L100.0100 #### [facility] [address] [place], [address] GFR/1.73 sq M.predicted among non-blacks MDRD (S/P/Bld) [Vol rate/Area] 127 mL/min/{1.73_m2} Normal >60 [facility] Comment on above: Result Comment: mL/m in/1.73m2 CKD-EPI Creatinine Equation (2020) Performed By: #### L 500.2500, L100.0100 #### [facility] [address] [place], [address] Glucose [Mass/Vol] 128 mg/dL High 70-99 [facility] Comment on above: Performed By: #### L 500.2500, L100.0100 #### [facility] [address] [place], [address] Potassium [Moles/Vol] 4.2 mmol/L Normal 3.3-5.1 [facility] Comment on above: Performed By: #### L 500.2500, L100.0100 #### [facility] [address] [place], [address] Sodium [Moles/Vol] 142 mmol/L Normal 133-145 [facility] Comment on above: Performed By: #### L 500.2500, L100.0100 #### [facility] [address] [place], [address] Urea nitrogen [Mass/Vol] 13 mg/dL Normal 4-19 [facility] Comment on above: Performed By: #### L 500.2500, L100.0100 #### [facility] [address] [place], [address] Basophil percentageOrdered B y: Evans Carter on 09-06-2024 Basophils/100 WBC (Bld) 0.2 % 0-1 [facility] CBC W/Diff, Automatedon Absolute Lymph 2.13 X10 3/uL Normal 0.83-4.51 [facility] Comment on above: Performed By: #### L 500.2500, L100.0100 #### [facility] [address] [place], [address] Absolute Neut 8.1 X10 3/uL High 2.0-7.7 [facility] Comment on above: Performed By: #### L 500.2500, L100.0100 #### [facility] [address] [place], [address] Basophils/100 WBC (Bld) 0.2 % Normal 0-1 [facility] Comment on above: Performed By: #### L 500.2500, L100.0100 #### [facility] [address] [place], [address] Eosinophils/100 WBC (Bld) 0.1 % Normal 0-5 [facility] Comment on above: Performed By: #### L 500.2500, L100.0100 #### [facility] [address] [place], [address] Erythrocyte distribution width (RBC) [Ratio] 18.0 % High 11.6-14.6 [facility] Comment on above: Performed By: #### L 500.2500, L100.0100 #### [facility] [address] [place], [address] Hematocrit (Bld) [Volume fraction] 39.2 % Normal 37-47 [facility] Comment on above: Performed By: #### L 500.2500, L100.0100 #### [facility] [address] [place], [address] Hemoglobin (Bld) [Mass/Vol] 10.4 g/dL Low 12.0-15.0 [facility] Comment on above: Performed By: #### L 500.2500, L100.0100 #### [facility] [address] [place], [address] IG% 1.300 High 0.0-0.9 [facility] Comment on above: Result Comment: IG% - Immature Granulocytes (promyelocytes, myelocytes and metamyelocytes) > 1% indicates that a LEFT SHIFT is Present. Performed By: #### L 500.2500, L100.0100 #### [facility] [address] [place], [address] Lymphocytes/100 WBC (Bld) 18.9 % Low 19-41 [facility] Comment on above: Performed By: #### L 500.2500, L100.0100 #### [facility] [address] [place], [address] MCH (RBC) [Entitic mass] 20.3 pg Low 27.0-32.0 [facility] Comment on above: Performed By: #### L 500.2500, L100.0100 #### [facility] [address] [place], [address] MCHC (RBC) [Mass/Vol] 26.5 g/dL Low 32-36 [facility] Comment on above: Performed By: #### L 500.2500, L100.0100 #### [facility] [address] [place], [address] MCV (RBC) [Entitic vol] 76.4 fL Low 81-99 [facility] Comment on above: Performed By: #### L 500.2500, L100.0100 #### [facility] [address] [place], [address] Monocytes/100 WBC (Bld) 7.5 % Normal 0-10 [facility] Comment on above: Performed By: #### L 500.2500, L100.0100 #### [facility] [address] [place], [address] Neutrophils/100 WBC (Bld) 72.0 % High 47-70 [facility] Comment on above: Performed By: #### L 500.2500, L100.0100 #### [facility] [address] [place], [address] Nucleated RBC (Bld) [#/Vol] 0.2 10*3/uL Normal 0-5 [facility] Comment on above: Performed By: #### L 500.2500, L100.0100 #### [facility] [address] [place], [address] Platelet mean volume (Bld) [Entitic vol] 9.9 fL Normal 6.2-12.0 [facility] Comment on above: Performed By: #### L 500.2500, L100.0100 #### [facility] [address] [place], [address] Platelets (Bld) [#/Vol] 249 10*3/uL Normal 150-450 [facility] Comment on above: Performed By: #### L 500.2500, L100.0100 #### [facility] [address] [place], [address] RBC (Bld) [#/Vol] 5.13 10*6/uL Normal 4.2-5.4 [facility] Comment on above: Performed By: #### L 500.2500, L100.0100 #### [facility] [address] [place], [address] RDW SD 49.1 fl High 35.1-43.9 [facility] Comment on above: Performed By: #### L 500.2500, L100.0100 #### [facility] [address] [place], [address] WBC (Bld) [#/Vol] 11.3 10*3/uL High 4.4-11.0 [facility] Comment on above: Performed By: #### L 500.2500, L100.0100 #### [facility] [address] [place], [address] Carbon dioxide, total [Moles /volume] in Central venous bloodOrdered By: Evans Carter on 09-06-2024 CO2 [Moles/Vol] 34.5 mmol/L High 21.0-32.0 [facility] Chloride assayOrdered By: Gerry Carter on 09-06-2024 Chloride [Moles/Vol] 98 mmol/L 98-108 [facility] Eosinophil percentageOrdered By: Evans Carter on 09-06-2024 Eosinophils/100 WBC (Bld) 0.1 % 0-5 [facility] Erythrocyte distribution wid th (RBC) [Ratio]Ordered By: Evans Carter on 09-06-2024 Erythrocyte distribution width (RBC) [Entitic vol] 49.1 fL High 35.1-43.9 [facility] Erythrocyte distribution wid th ratioOrdered By: Evans Carter on 09-06-2024 Erythrocyte distribution width (RBC) [Ratio] 18.0 % High 11.6-14.6 [facility] Erythrocyte distribution wid th standard deviationOrdered By: Evans Carter on 09-06-2024 Erythrocyte distribution width (RBC) [Ratio] 49.1 fl High 35.1-43.9 [facility] Estimation of creatinine ron aranceOrdered By: Evans Carter on 09-06-2024 Estimated Creatinine Clearance Calc 310.55 ml/min High 50-250 [facility] GFR/1.73 sq M.predicted stevo g non-blacks MDRD (S/P/Bld) [Vol rate/Area]Ordered By: Evans Carter on 09-06-2024 Estimated GFR (MDRD) Non-Af Amer 127 >60 [facility] Comment on above: mL/min/1.73m2 CKD-EP I Creatinine Equation (2020) Glomerular filtration rate ( GFR) estimation/1.73 sq m using serum, plasma, or whole bOrdered By: Evans Carter on 09-06-2024 GFR/1.73 sq M.predicted among non-blacks MDRD (S/P/Bld) [Vol rate/Area] 127 mL/min/{1.73_m2} >60 [facility] Comment on above: mL/min/1.73m2 CKD-EP I Creatinine Equation (2020) Hematocrit Auto (Bld) [Volum e fraction]Ordered By: Evans Carter on 09-06-2024 Hematocrit (Bld) [Volume fraction] 39.2 % 37-47 [facility] Hemoglobin measurementOrdere d By: Evans Carter on 09-06-2024 Hemoglobin (Bld) [Mass/Vol] 10.4 g/dL Low 12.0-15.0 [facility] Immature granulocytes/100 WB C Auto (Bld)Ordered By: Evans Carter on 09-06-2024 Immature granulocytes/100 WBC (Bld) 1.300 % High 0.0-0.9 [facility] Comment on above: IG% - Immature Granu locytes (promyelocytes, myelocytes and metamyelocytes) > 1% indicates that a LEFT SHIFT is Present. Lymphocytes Auto (Unsp spec) [#/Vol]Ordered By: Evans Carter on 09-06-2024 Lymphocytes (Bld) [#/Vol] 2.13 10*3/uL 0.83-4.51 [facility] Lymphocytes/100 WBC Auto (Un sp spec)Ordered By: Evans Carter on 09-06-2024 Lymphocytes/100 WBC (Bld) 18.9 % Low 19-41 [facility] MCV (mean corpuscular volume ) determinationOrdered By: Evans Carter on 09-06-2024 MCV (RBC) [Entitic vol] 76.4 fL Low 81-99 [facility] Mean corpuscular hemoglobin (MCH) determinationOrdered By: Evans Carter on 09-06-2024 MCH (RBC) [Entitic mass] 20.3 pg Low 27.0-32.0 [facility] Mean corpuscular hemoglobin concentration (MCHC) determinationOrdered By: Evans Carter on 09-06-2024 MCHC (RBC) [Mass/Vol] 26.5 g/dL Low 32-36 [facility] Mean platelet volume determi nationOrdered By: Evans Carter on 09-06-2024 Platelet mean volume (Bld) [Entitic vol] 9.9 fL 6.2-12.0 [facility] Monocyte percentageOrdered B y: Evans Carter on 09-06-2024 Monocytes/100 WBC (Bld) 7.5 % 0-10 [facility] Neutrophil percentageOrdered By: Evans Carter on 09-06-2024 Neutrophils/100 WBC (Bld) 72.0 % High 47-70 [facility] Nucleated red blood cell per centageOrdered By: Evans Carter on 09-06-2024 Nucleated RBC/100 WBC (Bld) [Ratio] 0.2 % 0-5 [facility] Platelet countOrdered By: Gerry Carter on 09-06-2024 Platelets (Bld) [#/Vol] 249 10*3/uL 150-450 [facility] Potassium (Unsp spec) [Mass/ Vol]Ordered By: Evans Carter on 09-06-2024 Potassium [Moles/Vol] 4.2 mmol/L 3.3-5.1 [facility] Potassium measurement (mass/ volume)Ordered By: Evans Carter on 09-06-2024 Potassium (Unsp spec) [Mass/Vol] 4.2 mmol/L 3.3-5.1 [facility] RBC Auto (Bld) [#/Vol]Ordere d By: Evans Carter on 09-06-2024 RBC (Bld) [#/Vol] 5.13 10*6/uL 4.2-5.4 [facility] Serum creatinine measurement (mass/volume)Ordered By: Evans Carter on 09-06-2024 Creatinine [Mass/Vol] 0.51 mg/dL Low 0.70-1.20 [facility] Serum glucose measurement (m ass/volume)Ordered By: Evans Carter on 09-06-2024 Glucose [Mass/Vol] 128 mg/dL High 70-99 [facility] Serum or plasma calcium maryjane urement (mass/volume)Ordered By: Evans Carter on 09-06-2024 Calcium [Mass/Vol] 8.5 mg/dL 7.6-11.0 [facility] Serum or plasma urea nitroge n measurement (mass/volume)Ordered By: Evans Carter on 09-06-2024 Urea nitrogen [Mass/Vol] 13 mg/dL 4-19 [facility] Sodium levelOrdered By: Kareem Carter on 09-06-2024 Sodium [Moles/Vol] 142 mmol/L 133-145 [facility] White blood cell (WBC) count Ordered By: Evans Carter on 09-06-2024 WBC (Bld) [#/Vol] 11.3 10*3/uL High 4.4-11.0 [facility] Basic Metabolic Profile (BMP )on 09-05-2024 BUN/CRE 17.2 RATIO Normal 10-20 [facility] Comment on above: Performed By: #### L 500.2500, L503.7505, L501.2300, L100.0100, L501.5200, L500.4100 #### [facility] [address] [place] [address]. [place], [place], [id number] Calcium [Mass/Vol] 8.7 mg/dL Normal 7.6-11.0 [facility] Comment on above: Performed By: #### L 500.2500, L503.7505, L501.2300, L100.0100, L501.5200, L500.4100 #### [facility] [address] [place], [address] Chloride [Moles/Vol] 99 mmol/L Normal 98-108 [facility] Comment on above: Performed By: #### L 500.2500, L503.7505, L501.2300, L100.0100, L501.5200, L500.4100 #### [facility] [address] [place], [address] CO2 [Moles/Vol] 35.3 mmol/L High 21.0-32.0 [facility] Comment on above: Performed By: #### L 500.2500, L503.7505, L501.2300, L100.0100, L501.5200, L500.4100 #### [facility] [address] [place], [address] Creatinine [Mass/Vol] 0.57 mg/dL Low 0.70-1.20 [facility] Comment on above: Performed By: #### L 500.2500, L503.7505, L501.2300, L100.0100, L501.5200, L500.4100 #### [facility] [address] [place], [address] ECRCL 278.58 ml/min High 50-250 [facility] Comment on above: Performed By: #### L 500.2500, L503.7505, L501.2300, L100.0100, L501.5200, L500.4100 #### [facility] [address] [place], [address] GAP 7 Normal 5-15 [facility] Comment on above: Performed By: #### L 500.2500, L503.7505, L501.2300, L100.0100, L501.5200, L500.4100 #### [facility] [address] [place], [address] GFR/1.73 sq M.predicted among non-blacks MDRD (S/P/Bld) [Vol rate/Area] 124 mL/min/{1.73_m2} Normal >60 [facility] Comment on above: Result Comment: mL/m in/1.73m2 CKD-EPI Creatinine Equation (2020) Performed By: #### L 500.2500, L503.7505, L501.2300, L100.0100, L501.5200, L500.4100 #### [facility] [address] [place], [address] Glucose [Mass/Vol] 151 mg/dL High 70-99 [facility] Comment on above: Performed By: #### L 500.2500, L503.7505, L501.2300, L100.0100, L501.5200, L500.4100 #### [facility] [address] [place], [address] Potassium [Moles/Vol] 4.8 mmol/L Normal 3.3-5.1 [facility] Comment on above: Performed By: #### L 500.2500, L503.7505, L501.2300, L100.0100, L501.5200, L500.4100 #### [facility] [address] [place], [address] Sodium [Moles/Vol] 141 mmol/L Normal 133-145 [facility] Comment on above: Performed By: #### L 500.2500, L503.7505, L501.2300, L100.0100, L501.5200, L500.4100 #### [facility] [address] [place], [address] Urea nitrogen [Mass/Vol] 10 mg/dL Normal 4-19 [facility] Comment on above: Performed By: #### L 500.2500, L503.7505, L501.2300, L100.0100, L501.5200, L500.4100 #### [facility] [address] [place], [address] CBC W/Diff, Automatedon 05-0 1-2024 Absolute Lymph 1.49 X10 3/uL Normal 0.83-4.51 [facility] Comment on above: Performed By: #### L 500.2500, L503.7505, L501.2300, L100.0100, L501.5200, L500.4100 #### [facility] [address] [place], [address] Absolute Neut 14.6 X10 3/uL High 2.0-7.7 [facility] Comment on above: Performed By: #### L 500.2500, L503.7505, L501.2300, L100.0100, L501.5200, L500.4100 #### [facility] [address] [place], [address] Basophils/100 WBC (Bld) 0.2 % Normal 0-1 [facility] Comment on above: Performed By: #### L 500.2500, L503.7505, L501.2300, L100.0100, L501.5200, L500.4100 #### [facility] [address] [place], [address] Eosinophils/100 WBC (Bld) 0.0 % Normal 0-5 [facility] Comment on above: Performed By: #### L 500.2500, L503.7505, L501.2300, L100.0100, L501.5200, L500.4100 #### [facility] [address] [place], [address] Erythrocyte distribution width (RBC) [Ratio] 17.8 % High 11.6-14.6 [facility] Comment on above: Performed By: #### L 500.2500, L503.7505, L501.2300, L100.0100, L501.5200, L500.4100 #### [facility] [address] [place], [address] Hematocrit (Bld) [Volume fraction] 40.2 % Normal 37-47 [facility] Comment on above: Performed By: #### L 500.2500, L503.7505, L501.2300, L100.0100, L501.5200, L500.4100 #### [facility] [address] [place], [address] Hemoglobin (Bld) [Mass/Vol] 10.7 g/dL Low 12.0-15.0 [facility] Comment on above: Performed By: #### L 500.2500, L503.7505, L501.2300, L100.0100, L501.5200, L500.4100 #### [facility] [address] [place], [address] IG% 1.500 High 0.0-0.9 [facility] Comment on above: Result Comment: IG% - Immature Granulocytes (promyelocytes, myelocytes and metamyelocytes) > 1% indicates that a LEFT SHIFT is Present. Performed By: #### L 500.2500, L503.7505, L501.2300, L100.0100, L501.5200, L500.4100 #### [facility] [address] [place], [address] Lymphocytes/100 WBC (Bld) 8.7 % Low 19-41 [facility] Comment on above: Performed By: #### L 500.2500, L503.7505, L501.2300, L100.0100, L501.5200, L500.4100 #### [facility] [address] [place], [address] MCH (RBC) [Entitic mass] 20.2 pg Low 27.0-32.0 [facility] Comment on above: Performed By: #### L 500.2500, L503.7505, L501.2300, L100.0100, L501.5200, L500.4100 #### [facility] [address] [place], [address] MCHC (RBC) [Mass/Vol] 26.6 g/dL Low 32-36 [facility] Comment on above: Performed By: #### L 500.2500, L503.7505, L501.2300, L100.0100, L501.5200, L500.4100 #### [facility] [address] [place], [address] MCV (RBC) [Entitic vol] 76.0 fL Low 81-99 [facility] Comment on above: Performed By: #### L 500.2500, L503.7505, L501.2300, L100.0100, L501.5200, L500.4100 #### [facility] [address] [place], [address] Monocytes/100 WBC (Bld) 3.8 % Normal 0-10 [facility] Comment on above: Performed By: #### L 500.2500, L503.7505, L501.2300, L100.0100, L501.5200, L500.4100 #### [facility] [address] [place], [address] Neutrophils/100 WBC (Bld) 85.8 % High 47-70 [facility] Comment on above: Performed By: #### L 500.2500, L503.7505, L501.2300, L100.0100, L501.5200, L500.4100 #### [facility] [address] [place], [address] Nucleated RBC (Bld) [#/Vol] 0.4 10*3/uL Normal 0-5 [facility] Comment on above: Performed By: #### L 500.2500, L503.7505, L501.2300, L100.0100, L501.5200, L500.4100 #### [facility] [address] [place], [address] Platelet mean volume (Bld) [Entitic vol] 9.4 fL Normal 6.2-12.0 [facility] Comment on above: Performed By: #### L 500.2500, L503.7505, L501.2300, L100.0100, L501.5200, L500.4100 #### [facility] [address] [place], [address] Platelets (Bld) [#/Vol] 273 10*3/uL Normal 150-450 [facility] Comment on above: Performed By: #### L 500.2500, L503.7505, L501.2300, L100.0100, L501.5200, L500.4100 #### [facility] [address] [place], [address] RBC (Bld) [#/Vol] 5.29 10*6/uL Normal 4.2-5.4 [facility] Comment on above: Performed By: #### L 500.2500, L503.7505, L501.2300, L100.0100, L501.5200, L500.4100 #### [facility] [address] [place], [address] RDW SD 48.5 fl High 35.1-43.9 [facility] Comment on above: Performed By: #### L 500.2500, L503.7505, L501.2300, L100.0100, L501.5200, L500.4100 #### [facility] [address] [place], [address] WBC (Bld) [#/Vol] 17.0 10*3/uL High 4.4-11.0 [facility] Comment on above: Performed By: #### L 500.2500, L503.7505, L501.2300, L100.0100, L501.5200, L500.4100 #### [facility] [address] [place], [address] Calculated very low density lipoprotein (VLDL) cholesterol measurementOrdered By: Evans Carter on 09-05-2024 Calculated very low density lipoprotein (VLDL) cholesterol measurement 15 mg/dL - [facility] VLDL Cholesterol 15 mg/dL -40 [facility] Gram Stainon 09-05-2024 GS Acceptable Specimen? Yes (<25 Epithelial cells per/lpf) Gram Stain 2+ Gram positive cocci 1+ Gram positive rods Normal [facility] Comment on above: Performed By: #### L 100.0100, L500.2500 #### [facility] [address] [place], [address] Gram stainOrdered By: Toro Holcomb on 09-05-2024 Microscopic observation Gram stain Nom (Unsp spec) [facility] Hemoglobin A1con 09-05-2024 HbA1c (Bld) [Mass fraction] 6.0 % High <=5.6 [facility] Comment on above: Result Comment: Norm al < 5.7 % Prediabetic 5.7 - 6.4 % Diabetic >or= 6.5 % Please note range changes. Performed By: #### L 100.0100, L500.2500 #### [facility] [address] [place], [address] Hemoglobin A1c percentageOrd ered By: Evans Carter on 09-05-2024 HbA1c (Bld) [Mass fraction] 6.0 % High <5.7 [facility] Comment on above: Normal < 5.7 % Predi abetic 5.7 - 6.4 % Diabetic >or= 6.5 % Please note range changes. L503.7505on 09-05-2024 Natriuretic peptide B (Bld) [Mass/Vol] 195 pg/mL Normal <=450 [facility] Comment on above: Result Comment: Hear t Failure Unlikely: < 300 pg/mL Heart Failure Likely < 50 Years: > 450 pg/mL 50-75 Years: > 900 pg/mL >75 Years: > 1800 pg/mL Performed By: #### L 9000.0810 #### [facility] [address] [place], [address] LDL calc ser/plasOrdered By: Evans Carter on 09-05-2024 Cholesterol in LDL [Mass/Vol] 96 mg/dL [facility] Comment on above: Cdzgmkoujb=751-297 m g/dL & Higher Dvuj=915 mg/dL or greater LDL Cholesterol, Calculated 96 mg/dL [facility] Comment on above: Jtpefnamta=300-507 m g/dL & Higher Vlwt=200 mg/dL or greater Lipid Profileon 09-05-2024 CHOL:HDL 3.37 Normal [facility] Comment on above: Performed By: #### L 9000.0810 #### [facility] [address] [place], [place], [id number] [phone] Cholesterol [Mass/Vol] 157 mg/dL Normal <=200 [facility] Comment on above: Result Comment: Chol esterol level, Desirable <200 mg/dL Borderline high cholesterol 200-239 mg/dL High cholesterol >=240 mg/dL Recommendations of the NCEP Adult Treatment Panel for the following risk-cutoff thresholds for the [place] population. Performed By: #### L 9000.0810 #### [facility] [address] [place], [place], [address] Cholesterol in HDL [Mass/Vol] 47 mg/dL Normal [facility] Comment on above: Result Comment: Dee onal Cholesterol Education Program (NCEP) guidelines: <40 mg/dL: Low HDL-cholesterol (major risk factor for CHD) >= 60 mg/dL: High HDL-cholesterol (negative risk factor for CHD) HDL-cholesterol is affected by a number of factors, e.g. smoking, exercise, hormones, sex and age. Performed By: #### L 9000.0810 #### [facility] [address] [place], [address] Cholesterol in LDL [Mass/Vol] 96 mg/dL Normal [facility] Comment on above: Result Comment: Bord tigxiz=819-080 mg/dL Higher Kvyb=141 mg/dL or greater Performed By: #### L 9000.0810 #### [facility] [address] [place], [address] Cholesterol in VLDL [Mass/Vol] 15 mg/dL Normal 5-40 [facility] Comment on above: Performed By: #### L 9000.0810 #### [facility] [address] [place], [address] Triglyceride [Mass/Vol] 73 mg/dL Normal [facility] Comment on above: Result Comment: The drugs N-Acetylcysteine and Metamizole may falsely depress this assay. Normal range: <150 mg/dL Borderline High: 150-199 mg/dL High: 200-499 mg/dL Very High: >500 mg/dL Performed By: #### L 9000.0810 #### [facility] [address] [place], [address] Magnesiumon 09-05-2024 Magnesium [Mass/Vol] 2.4 mg/dL High 1.5-2.2 [facility] Comment on above: Performed By: #### L 9000.0810 #### [facility] [address] [place], [address] Magnesium (Unsp spec) [Mass/ Vol]Ordered By: Evans Carter on 09-05-2024 Magnesium [Mass/Vol] 2.4 mg/dL High 1.5-2.2 [facility] Magnesium measurement (mass/ volume)Ordered By: Evans Carter on 09-05-2024 Magnesium (Unsp spec) [Mass/Vol] 2.4 mg/dL High 1.5-2.2 [facility] Microbial respiratory cultur eOrdered By: Toro Holcomb on 09-05-2024 Microorganism identified Cx Nom (Unsp spec) Streptococcus group F Abnormal [facility] Natriuretic peptide.B prohor chad N-Terminal [Mass/Vol]Ordered By: Evans Carter on 09-05-2024 Natriuretic peptide B (Bld) [Mass/Vol] 195 pg/mL <450 [facility] Comment on above: Heart Failure Unlike ly: < 300 pg/mLHeart Failure Likely< 50 Years: > 450 pg/mL50-75 Years: > 900 pg/mL>75 Years: > 1800 pg/mL Natriuretic peptide.B prohor chad N-Terminal [Mass/volume] in Serum or PlasmaOrdered By: Evans Carter on 09-05-2024 Natriuretic peptide.B prohormone N-Terminal [Mass/Vol] 195 pg/mL <450 [facility] Comment on above: Heart Failure Unlike ly: < 300 pg/mLHeart Failure Likely< 50 Years: > 450 pg/mL50-75 Years: > 900 pg/mL>75 Years: > 1800 pg/mL Phosphoruson 09-05-2024 Phosphate [Mass/Vol] 3.1 mg/dL Normal 2.7-4.5 [facility] Comment on above: Performed By: #### L 9000.0810 #### [facility] [address] [place], [address] Screening total cholesterol/ high density lipoprotein (HDL) cholesterol ratioOrdered By: Evans Carter on 09-05-2024 Cholesterol.total/Abi sterol in HDL [Mass ratio] 3.37 {ratio} [facility] Serum or plasma cholesterol in HDL measurement (mass/volume)Ordered By: Evans Carter on 09-05-2024 Cholesterol in HDL [Mass/Vol] 47 mg/dL >40 [facility] Comment on above: National Cholesterol Education Program (NCEP) guidelines:<40 mg/dL: Low HDL-cholesterol (major risk factor for CHD)>= 60 mg/dL: High HDL-cholesterol (negative risk factor for CHD)HDL-cholesterol is affected by a number of factors, e.g. smoking, exercise, hormones, sex and age. Serum or plasma cholesterol measurement (mass/volume)Ordered By: Evans Carter on 09-05-2024 Cholesterol [Mass/Vol] 157 mg/dL <201 [facility] Comment on above: Cholesterol level, D esirable <200 mg/dLBorderline high cholesterol 200-239 mg/dLHigh cholesterol >=240 mg/dLRecommendations of the NCEP Adult Treatment Panel for the following risk-cutoff thresholds for the [place] population. Serum phosphorus measurement Ordered By: Evans Carter on 09-05-2024 Phosphorus Level 3.1 mg/dL 2.7-4.5 [facility] Triglycerides measurementOrd ered By: Evans Carter on 09-05-2024 Triglyceride [Mass/Vol] 73 mg/dL <199 [facility] Comment on above: The drugs N-Acetylcy steine and Metamizole may falsely depress this assay. Normal range: <150 mg/dLBorderline High: 150-199 mg/dLHigh: 200-499 mg/dLVery High: >500 mg/dL Basic Metabolic Profile (BMP )on 09-04-2024 BUN/CRE 15.3 RATIO Normal 10-20 [facility] Comment on above: Performed By: #### L 100.0100, L500.2500 #### [facility] [address] [place], [address] Calcium [Mass/Vol] 8.5 mg/dL Normal 7.6-11.0 [facility] Comment on above: Performed By: #### L 100.0100, L500.2500 #### [facility] [address] [place], [address] Chloride [Moles/Vol] 100 mmol/L Normal 98-108 [facility] Comment on above: Performed By: #### L 100.0100, L500.2500 #### [facility] [address] [place], [address] CO2 [Moles/Vol] 33.9 mmol/L High 21.0-32.0 [facility] Comment on above: Performed By: #### L 100.0100, L500.2500 #### [facility] [address] [place], [address] Creatinine [Mass/Vol] 0.63 mg/dL Low 0.70-1.20 [facility] Comment on above: Performed By: #### L 100.0100, L500.2500 #### [facility] [address] [place], [address] ECRCL 250.02 ml/min High 50-250 [facility] Comment on above: Performed By: #### L 100.0100, L500.2500 #### [facility] [address] [place], [address] GAP 7 Normal 5-15 [facility] Comment on above: Performed By: #### L 100.0100, L500.2500 #### [facility] [address] [place], [address] GFR/1.73 sq M.predicted among non-blacks MDRD (S/P/Bld) [Vol rate/Area] 121 mL/min/{1.73_m2} Normal >60 [facility] Comment on above: Result Comment: mL/m in/1.73m2 CKD-EPI Creatinine Equation (2020) Performed By: #### L 100.0100, L500.2500 #### [facility] [address] [place], [address] Glucose [Mass/Vol] 192 mg/dL High 70-99 [facility] Comment on above: Performed By: #### L 100.0100, L500.2500 #### [facility] [address] [place], [address] Potassium [Moles/Vol] 5.1 mmol/L Normal 3.3-5.1 [facility] Comment on above: Performed By: #### L 100.0100, L500.2500 #### [facility] [address] [place], [address] Sodium [Moles/Vol] 141 mmol/L Normal 133-145 [facility] Comment on above: Performed By: #### L 100.0100, L500.2500 #### [facility] [address] [place], [address] Urea nitrogen [Mass/Vol] 10 mg/dL Normal 4-19 [facility] Comment on above: Performed By: #### L 100.0100, L500.2500 #### [facility] [address] [place], [address] CBC W/Diff, Automatedon 04-3 0-2024 Absolute Lymph 0.95 X10 3/uL Normal 0.83-4.51 [facility] Comment on above: Performed By: #### L 100.0100, L500.2500 #### [facility] [address] [place], [address] Absolute Neut 13.5 X10 3/uL High 2.0-7.7 [facility] Comment on above: Performed By: #### L 100.0100, L500.2500 #### [facility] [address] [place], [address] Basophils/100 WBC (Bld) 0.2 % Normal 0-1 [facility] Comment on above: Performed By: #### L 100.0100, L500.2500 #### [facility] [address] [place], [address] Eosinophils/100 WBC (Bld) 0.0 % Normal 0-5 [facility] Comment on above: Performed By: #### L 100.0100, L500.2500 #### [facility] [address] [place], [address] Erythrocyte distribution width (RBC) [Ratio] 18.0 % High 11.6-14.6 [facility] Comment on above: Performed By: #### L 100.0100, L500.2500 #### [facility] [address] [place], [address] Hematocrit (Bld) [Volume fraction] 40.1 % Normal 37-47 [facility] Comment on above: Performed By: #### L 100.0100, L500.2500 #### [facility] [address] [place], [address] Hemoglobin (Bld) [Mass/Vol] 10.7 g/dL Low 12.0-15.0 [facility] Comment on above: Performed By: #### L 100.0100, L500.2500 #### [facility] [address] [place], [address] IG% 1.100 High 0.0-0.9 [facility] Comment on above: Result Comment: IG% - Immature Granulocytes (promyelocytes, myelocytes and metamyelocytes) > 1% indicates that a LEFT SHIFT is Present. Performed By: #### L 100.0100, L500.2500 #### [facility] [address] [place], [address] Lymphocytes/100 WBC (Bld) 6.4 % Low 19-41 [facility] Comment on above: Performed By: #### L 100.0100, L500.2500 #### [facility] [address] [place], [address] MCH (RBC) [Entitic mass] 20.2 pg Low 27.0-32.0 [facility] Comment on above: Performed By: #### L 100.0100, L500.2500 #### [facility] [address] [place], [address] MCHC (RBC) [Mass/Vol] 26.7 g/dL Low 32-36 [facility] Comment on above: Performed By: #### L 100.0100, L500.2500 #### [facility] [address] [place], [address] MCV (RBC) [Entitic vol] 75.8 fL Low 81-99 [facility] Comment on above: Performed By: #### L 100.0100, L500.2500 #### [facility] [address] [place], [address] Monocytes/100 WBC (Bld) 1.7 % Normal 0-10 [facility] Comment on above: Performed By: #### L 100.0100, L500.2500 #### [facility] [address] [place], [address] Neutrophils/100 WBC (Bld) 90.6 % High 47-70 [facility] Comment on above: Performed By: #### L 100.0100, L500.2500 #### [facility] [address] [place], [address] Nucleated RBC (Bld) [#/Vol] 0.3 10*3/uL Normal 0-5 [facility] Comment on above: Performed By: #### L 100.0100, L500.2500 #### [facility] [address] [place], [address] Platelet mean volume (Bld) [Entitic vol] 9.8 fL Normal 6.2-12.0 [facility] Comment on above: Performed By: #### L 100.0100, L500.2500 #### [facility] [address] [place], [address] Platelets (Bld) [#/Vol] 236 10*3/uL Normal 150-450 [facility] Comment on above: Performed By: #### L 100.0100, L500.2500 #### [facility] [address] [place], [address] RBC (Bld) [#/Vol] 5.29 10*6/uL Normal 4.2-5.4 [facility] Comment on above: Performed By: #### L 100.0100, L500.2500 #### [facility] [address] [place], [address] RDW SD 48.8 fl High 35.1-43.9 [facility] Comment on above: Performed By: #### L 100.0100, L500.2500 #### [facility] [address] [place], [address] WBC (Bld) [#/Vol] 14.9 10*3/uL High 4.4-11.0 [facility] Comment on above: Performed By: #### L 100.0100, L500.2500 #### [facility] [address] [place], [address] Calculated total iron bindin g capacityOrdered By: Evans Carter on 09-04-2024 Total Iron Binding Capacity 428 ug/dL 250-450 [facility] Consultation - Intensiviston 09-04-2024 Consultation - Senior Maintenance Machinist [facility] Medical Records Department [address] [place] [address] Consultation - Senior Maintenance Machinist 09/04/24 0830 MR#: [id number] Acct: [id number] Name: TORRIE MARTINEZ Rep #: [id number] : 1990 34 From: Toro Holcomb DO PCP: OMAR Jones Status:ADM IN Location: ICU [id number] Assessment Plan Assessment/Plan (1) Acute on chronic respiratory failure with hypoxia and hypercapnia: PLAN: Plan RECOMMENDATIONS: 1. Continue empiric antibiotics. Send sputum for culture. 2. Continue to wean supplemental oxygen to maintain saturations at or above 90%. 3. Continue scheduled bronchodilators and steroids. 4. Continue nocturnal PAP therapy per home regimen. 5. Continue appropriate DVT prophylaxis. 6. Encourage incentive spirometer use and mobilize patient as tolerated. IMPRESSIONS: 1. Acute on chronic combined respiratory failure Appears secondary to asthma exacerbation precipitated by right upper lobe pneumonia. The patient, at her baseline, requires 5 L/min of supplemental oxygen. She is currently followed on an outpatient basis by Dr. Bere Holcomb of [facility] pulmonary medicine. At this time, recommend continuing to wean supplemental oxygen as tolerated to maintain saturations at or above 90%. The patient will be continued on empiric antibiotics along with scheduled bronchodilators and steroids. She appears to be responding clinically to therapy. 2. Obstructive sleep apnea/super morbid obesity/depression/h eart failure with preserved ejection fraction Complicates care, management, recovery and prognosis. Continue home medications as indicated. Agree with continuing PAP therapy with naps and nightly. Encourage incentive spirometer use and mobilize patient as tolerated. This note was generated with [employer] dictation software. It may contain incorrect words, spelling, and punctuation that were not noted in checking the note before signing. HPI Consult Data Date of Consult: 09/04/24 HPI Narrative Reason for Consultation: Acute on chronic respiratory failure HPI Narrative: The patient is a 34-year-old female, with a history as outlined below, who presented to the emergency department on September 03 with worsening dyspnea of approximately 5 days duration. According to the patient, she is currently followed in the office of Dr. Bere Holcomb of pulmonary medicine at [facility] due to a history of severe persistent asthma, chronic hypoxemic respiratory failure with a baseline oxygen requirement of 5 L/min and obstructive sleep apnea. The patient reported a remote smoking history, currently in remission. She is currently unemployed. In addition to her dyspnea, she does report the presence of wheezing, chest tightness and productive cough. She denied any recent sick contact exposure. She has been compliant with her prescribed maintenance inhalers on an outpatient basis. On presentation to the emergency department, the patient was documented to have a low-grade fever and was notably tachycardic and tachypneic. She was otherwise hemodynamically stable. Laboratory evaluation was notable for a white blood cell count of 15,000. Chemistry profile was notable for a bicarbonate of 35 with normal creatinine. Chest x-ray demonstrated the presence of a right upper lobe infiltrate. Lower extremity Doppler study was negative for DVT. The patient was subsequently placed on antimicrobials, bronchodilators and steroids. She was admitted to the medical intensive care unit for overnight observation. This morning, the patient reported that her breathing quality has improved. Her oxygen requirement has been weaned down to 8 L/min via nasal cannula. [facility] Medical History Pneumonia COPD (chronic obstructive pulmonary disease) Environmental allergies Anemia Depression Asthma Medical History no medical history Home Medications ???Medication ???Instructions ???Recorded ???Last Taken ???Type montelukast 10 mg tablet 10 mg PO DAILY 03/13/18 09/02/24 H istory albuterol sulfate 90 mcg/actuation 1 - 2 puff inhalation Q4H PRN Unknown History aerosol inhaler Wheezing bumetanide 1 mg tablet 1 mg PO DAILY 09/03/24 09/02/24 Hi story bupropion HCl 150 mg 24 hr tablet, 150 mg PO DAILY 09/03/24 5 History extended release cetirizine 10 mg tablet 10 mg PO DAILY 09/03/24 09/02/24 H istory cyclosporine 0.05 % eye drops in a 1 drp ophthalmic (eye) BID 09/03 Unknown History dropperette famotidine 20 mg tablet 20 mg PO BID PRN stomach upset Unknown History ferrous sulfate 325 mg (65 mg 325 mg PO DAILY 09/03/24 09/02/24 History iron) tablet (FeroSul) fluticasone fur. 200 mcg-umeclid 1 ea inhalation DAILY 09/03/24 History 62.5 mcg-vilant 25 mcg inhalat.powder (Trelegy Ellipta) fl (more content not included)... Normal [facility] Echo Complete W/ Contraston 09-04-2024 Echo Complete W/ Contrast [facility] [address] [facility] [place] [address] Echo Complete W/ Contrast 09/04/24 0949 MR#: [id number] Acct: [id number] Name: TORRIE MARTINEZ Rep #: [id number] : 1990 34 From: Genaro Sargent MD Attending Dr: Dr. Evans Carter MD Status: ADM IN Ordering Dr: Evans Carter MD Date: 09/04/24 Location: ICU Sex: F AA Admitted: 09/03/24 Reason For Study Reason For Study: CHF Procedure This was a 2D Doppler, Color Flow transthoracic echocardiogram. The study was technically difficult. Contrast injection was performed. Patient scanned supine and on Bipap. Exam performed portable in ICU/CCU. Left Ventricle Normal LV size. Mild concentric left ventricular hypertrophy. The left ventricular ejection fraction is 65 %. No regional wall motion abnormalities noted. Right Ventricle Normal RV size. Normal systolic function. Atria The left atrium is mildly enlarged. The right atrium is mildly enlarged. Mitral Valve Normal mitral valve. Tricuspid Valve Normal tricuspid valve. Aortic Valve Trisinus/trileaflet aortic valve. Pulmonic Valve The pulmonic valve is not well visualized. Great Vessels Normal aortic root. Pericardium/Pleural No pericardial effusion. Medication Diluted definity 3ml given slow IV push to enhance endocardial definition. Confirmed with patient there was no chance of . MMode/2D Measurements Calculations LVIDd: 5.5 cm IVSd: 1.3 cm Ao root diam: 3.0 cm LVIDs: 4.3 cm LVPWd: 1.3 cm RVDd: 4.4 cm FS: 22.9 % LAV(MOD-bp): 65.5 ml LVAd ap4: 46.6 cm2 SV(MOD-sp4): 118.1 ml LAV(MOD-bp) Indexed: 22.0 ml/m2 LVLd ap4: 10.0 cm SI(MOD-sp4): 39.7 ml/m2 LAV(MOD-sp2): 62.5 ml EDV(MOD-sp4): 179.4 ml LAV(MOD-sp4): 66.4 ml EDV(sp4-el): 183.8 ml LVAs ap4: 24.3 cm2 LVLs ap4: 8.2 cm ESV(MOD-sp4): 61.3 ml ESV(sp4-el): 60.8 ml EF(MOD-sp4): 65.9 % EF(sp4-el): 66.9 % SV(sp4-el): 123.0 ml LA A4 area: 22.5 cm2 LA dimension(2D): 4.5 cm RA A4 area: 21.1 cm2 TAPSE: 1.9 cm Time Measurements MV dec time: 0.25 sec Doppler Measurements Calculations MV E max boyd: 113.7 cm/sec Lat Peak E' Boyd: 13.9 cm/sec Med Peak E' Boyd: 9.7 cm/sec MV A max boyd: 65.1 cm/sec E/E' lat: 8.2 E/E' med: 11.7 MV E/A: 1.7 MV V2 max: 115.6 cm/sec MV P1/2t max boyd: 115.6 cm/sec Ao V2 max: 195.0 cm/sec MV max P.3 mmHg MV P1/2t: 77.5 msec Ao max P.2 mmHg MV V2 mean: 65.1 cm/sec MV dec slope: 437.2 cm/sec2 MV mean P.0 mmHg MVA(P1/2t): 2.8 cm2 MV V2 VTI: 30.8 cm LV V1 max: 121.8 cm/sec PA V2 max: 121.7 cm/sec LV V1 max P.9 mmHg ECHO/Echo Complete W/ Contrast Interpretation Summary Normal LV size. The left ventricular ejection fraction is 65 %. Mild concentric left ventricular hypertrophy. Contrast injection was performed. The study was technically difficult. Ordering Physician: Evans Carter Referring Physician: Louann Bermeo Performed By: Jovan Alfred RCS 09/04/24 105 Date Genaro Sargent MD CC: CHILD STUDY TEAM DIRECTORJeff Bermeo; Dr. Evans Carter MD Date Dictated: 09/04/24948 Date Transcribed: 09/04/241050 Whistle Punk: Signed Normal [facility] Echocardiogram study reportO rdered By: Genaro Sargent on 09-04-2024 Study report [facility] [address] [place] [address] Echo Complete W/ Contrast 09/04/24948 MR#: [id number] Acct: [id number] Name: TORRIE MARTINEZ Rep #:[id number] : 1990 34 From: Genaro Mora Attending Dr: Dr. Evans Carter MD Status: ADM IN Ordering Dr: Evans Carter MD Date: Location: ICU Sex: F AA Admitted: 09/03/24 Reason For Study Reason For Study: CHF Procedure This was a 2D Doppler, Color Flow transthoracic echocardiogram. The study was technically difficult. Contrast injection was performed. Patient scanned supine and on Bipap. Exam performed portable in ICU/CCU. Left Ventricle Normal LV size. Mild concentric left ventricular hypertrophy. The left ventricular ejection fraction is 65 %. No regional wall motion abnormalities noted. Right Ventricle Normal RV size. Normal systolic function. Atria The left atrium is mildly enlarged. The right atrium is mildly enlarged. Mitral Valve Normal mitral valve. Tricuspid Valve Normal tricuspid valve. Aortic Valve Trisinus/trileaflet aortic valve. Pulmonic Valve The pulmonic valve is not well visualized. Great Vessels Normal aortic root. Pericardium/Pleural No pericardial effusion. Medication Diluted definity 3ml given slow IV push to enhance endocardial definition. Confirmed with patient there was no chance of . MMode/2D Measurements & Calculations LVIDd: 5.5 cm IVSd: 1.3 cm Ao root diam: 3.0 cm LVIDs: 4.3 cm LVPWd: 1.3 cm RVDd: 4.4 cm FS: 22.9 % ____ LAV(MOD-bp): 65.5 ml LVAd ap4: 46.6 cm2 SV(MOD-sp4): 118.1 ml LAV(MOD-bp) Indexed: 22.0 ml/m2 LVLd ap4: 10.0 cm SI(MOD-sp4): 39.7 ml/m2 LAV(MOD-sp2): 62.5 ml EDV(MOD-sp4): 179.4 ml LAV(MOD-sp4): 66.4 ml EDV(sp4-el): 183.8 ml LVAs ap4: 24.3 cm2 LVLs ap4: 8.2 cm ESV(MOD-sp4): 61.3 ml ESV(sp4-el): 60.8 ml EF(MOD-sp4): 65.9 % EF(sp4-el): 66.9 % SV(sp4-el): 123.0 ml LA A4 area: 22.5 cm2 LA dimension(2D): 4.5 cm RA A4 area: 21.1 cm2 TAPSE: 1.9 cm Time Measurements MV dec time: 0.25 sec Doppler Measurements & Calculations MV E max boyd: 113.7 cm/sec Lat Peak E' Boyd: 13.9 cm/sec Med Peak E' Boyd: 9.7 cm/sec MV A max boyd: 65.1 cm/sec E/E' lat: 8.2 E/E' med: 11.7 MV E/A: 1.7 MV V2 max: 115.6 cm/sec MV P1/2t max boyd: 115.6 cm/sec Ao V2 max: 195.0 cm/sec MV max P.3 mmHg MV P1/2t: 77.5 msec Ao max P.2 mmHg MV V2 mean: 65.1 cm/sec MV dec slope: 437.2 cm/sec2 MV mean P.0 mmHg MVA(P1/2t): 2.8 cm2 MV V2 VTI: 30.8 cm LV V1 max: 121.8 cm/sec PA V2 max: 121.7 cm/sec LV V1 max P.9 mmHg ECHO/Echo Complete W/ Contrast Interpretation Summary Normal LV size. The left ventricular ejection fraction is 65 %. Mild concentric left ventricular hypertrophy. Contrast injection was performed. The study was technically difficult. Ordering Physician: Evans Carter Referring Physician: Louann Bermeo Performed By: Jovan Alfred RCS 09/04/24 1051 Date _ Genaro Sargent MD CC: OMAR Bermeo; Dr. Evans Carter MD ~ Date Dictated: 09/04/24 0949 Date Transcribed: 09/04/24 1051 [place]unk: Signed [facility] Work Phone: Electrocardiogram reportOrde red By: Genaro Sargent on 09-04-2024 EKG study [facility] [address] [place] [address] 12 Lead EKG 09/03/24 1433 MR#: [id number] Acct: [id number] Name: TORRIE MARTINEZ Rep #:[id number] : 1990 34 From: Genaro Sargent MD Attending Dr: Dr. Evans Carter MD Status: ADM IN Ordering Dr: Randy Bailey MD Date: 09/03 Location: ICU Sex: F AA Admitted: 09/03/24 Test Reason : SOB Blood Pressure : */* mmHG Vent. Rate : 133 BPM Atrial Rate : 133 BPM P-R Int : 130 ms QRS Dur : 88 ms QT Int : 310 ms P-R-T Axes : 50 -63 25 degrees QTcB Int : 461 ms Sinus tachycardia Indeterminate axis Inferior infarct , age undetermined Abnormal ECG Confirmed by ROSETTA FUENTES, GENARO ([id number]), metropolitan editor EVER GAONA ([id number]) on 51:32:03 PM Referred By: UG/TL Confirmed By: GENARO SARGENT MD 09/04/24 1332 Date _ Genaro Sargent MD CC: OMAR Bermeo; Dr. Evans Carter MD; Dr. Randy Bailey MD ~ Signed [facility] Work Phone: Ferritinon 09-04-2024 Ferritin [Mass/Vol] 25 ng/mL Normal 22-378 [facility] Comment on above: Performed By: #### L 9000.0810 #### [facility] [address] [place], [address] Hemoglobin (Reticulocytes) [ Entitic mass]Ordered By: Evans Carter on 09-04-2024 Reticulocyte Hemoglobin Equivalent 15.5 pg Low 30-35 [facility] Immature platelet percentage Ordered By: Evans Carter on 09-04-2024 Platelets reticulated/100 platelets Auto (Bld) 5.2 % 1.0-7.9 [facility] Comment on above: Low PLT + Low IPF noland ggest a bone marrow production disorderLow PLT + high IPF suggests peripheral destruction(e.g.ITP, TTP, HIT, DIC, autoimmune) or bone marrow recoveryTrending of serial IPF measurements is recommended when evaluating for bone marrow responesValue above normal range indicates an increase in RBC cellular response from bone marrow. Immature reticulocyte fracti onOrdered By: Evans Carter on 09-04-2024 Immature Reticulocyte Fraction 12.10 % 3.00-15.90 [facility] Iron (Unsp spec) [Mass/Mass] Ordered By: Evans Carter on 09-04-2024 Iron [Mass/Vol] 14 ug/dL Low 50-170 [facility] Iron measurement (mass/mass) Ordered By: Evans Carter on 09-04-2024 Iron (Unsp spec) [Mass/Mass] 14 ug/dL Low 50-170 [facility] Iron saturation [Mass fracti on]Ordered By: Evans Carter on 09-04-2024 Iron Saturation 3.0 % Low 13-59 [facility] Iron+Iron Binding Capacityon 09-04-2024 Iron [Mass/Vol] 14 ug/dL Low 50-170 [facility] Comment on above: Performed By: #### L 9000.0810 #### [facility] [address] [place], [address] IRON SATURATION 3.0 Low 13-59 [facility] Comment on above: Performed By: #### L 9000.0810 #### [facility] [address] [place], [address] TIBC 428 ug/dL Normal 250-450 [facility] Comment on above: Performed By: #### L 9000.0810 #### [facility] [address] [place], [address] UIBC 414 ug/dL Normal 228-428 [facility] Comment on above: Performed By: #### L 9000.0810 #### [facility] [address] [place], [address] No Panel InformationOrdered By: Evans Carter on 09-04-2024 Unsaturated Iron Binding Capacity 414 ug/dL 228-428 [facility] Platelets reticulated/100 pl atelets Auto (Bld)Ordered By: Evans Carter on 09-04-2024 Immature Platelet Fraction 5.2 % 1.0-7.9 [facility] Comment on above: Low PLT + Low IPF noland ggest a bone marrow production disorderLow PLT + high IPF suggests peripheral destruction(e.g.ITP, TTP, HIT, DIC, autoimmune) or bone marrow recoveryTrending of serial IPF measurements is recommended when evaluating for bone marrow responesValue above normal range indicates an increase in RBC cellular response from bone marrow. RESPIRATORY PANEL MOLECULARo n 09-04-2024 RP PANEL ADENOVIRUS Not Detected INFLUENZA A Not Detected INFLUENZA A (SUBTYPE H1) Not Detected INFLUENZA A (SUBTYPE H3) Not Detected INFLUENZA B Not Detected HUMAN METAPHNEUMO Not Detected PARAINFLUENZA 1 Not Detected PARAINFLUENZA 2 Not Detected PARAINFLUENZA 3 Not Detected PARAINFLUENZA 4 Not Detected RHINOVIRUS Not Detected RSV A Not Detected RSV B Not Detected Normal [facility] Comment on above: Performed By: #### L 100.0100, L500.2500 #### [facility] [address] [place], [address] Respiratory pathogens DNA an d RNA panel GUNJAN+probe (Resp)Ordered By: Toro Holcomb on 09-04-2024 Respiratory Panel (PCR) [facility] Respiratory pathogens detect ion panel by molecular detection methodOrdered By: Toro Holcomb on 09-04-2024 Respiratory pathogens DNA and RNA panel GUNJAN+probe (Resp) [facility] Retic Panelon 09-04-2024 IM RET FRACTION 12.10 Normal 3.00-15.90 [facility] Comment on above: Performed By: #### L 9000.0810 #### [facility] [address] [place], [place], [id number] IPF 5.2 Normal 1.0-7.9 [facility] Comment on above: Result Comment: Low PLT + Low IPF suggest a bone marrow production disorder Low PLT + high IPF suggests peripheral destruction (e.g.ITP, TTP, HIT, DIC, autoimmune) or bone marrow recovery Trending of serial IPF measurements is recommended when evaluating for bone marrow respones Value above normal range indicates an increase in RBC cellular response from bone marrow. Performed By: #### L 9000.0810 #### [facility] [address] [place], [place], [id number] RET-HE 15.5 pg Low 30-35 [facility] Comment on above: Performed By: #### L 9000.0810 #### [facility] [address] [place], [address] Retic Count 1.45 Normal 0.5-1.5 [facility] Comment on above: Performed By: #### L 9000.0810 #### [facility] [address] [facility] [place], [address] Reticulocyte hemoglobin equi valent (RET-He) measurementOrdered By: Evans Carter on 09-04-2024 Hemoglobin (Reticulocytes) [Entitic mass] 15.5 pg Low 30-35 [facility] Reticulocytes Auto (Bld) [#/ Vol]Ordered By: Evans Carter on 09-04-2024 Reticulocyte Count 1.45 % 0.5-1.5 [facility] Reticulocytes/100 RBC (Bld) 1.45 % 0.5-1.5 [facility] Serum or plasma ferritin mandie surement (mass/volume)Ordered By: Evans Carter on 09-04-2024 Ferritin [Mass/Vol] 25 ng/mL 22-378 [facility] Serum or plasma iron saturat ion measurement (mass fraction)Ordered By: Evans Carter on 09-04-2024 Iron saturation [Mass fraction] 3.0 % Low 13-59 [facility] Vitamin B12on 09-04-2024 Cobalamin (Vitamin B12) [Mass/Vol] 686 pg/mL Normal 180-914 [facility] Comment on above: Performed By: #### L 9000.0810 #### [facility] [address] [place], [address] Vitamin B12 ser/plasOrdered By: Evans Carter on 09-04-2024 Cobalamin (Vitamin B12) [Mass/Vol] 686 pg/mL 180-914 [facility] 12 Lead EKGon 09-03-2024 12 Lead EKG [facility] [address] [place] [address] 12 Lead EKG 09/03/24 1433 MR#: [id number] Acct: [id number] Name: TORRIE MARTINEZ Rep #: [id number] : 1990 34 From: Genaro Sargent MD Attending Dr: Dr. Evans Carter MD Status: ADM IN Ordering Dr: Randy Bailey MD Date: 09/03/24 Location: ICU Sex: F AA Admitted: 09/03/24 Test Reason : SOB Blood Pressure : */* mmHG Vent. Rate : 133 BPM Atrial Rate : 133 BPM P-R Int : 130 ms QRS Dur : 88 ms QT Int : 310 ms P-R-T Axes : 50 -63 25 degrees QTcB Int : 461 ms Sinus tachycardia Indeterminate axis Inferior infarct , age undetermined Abnormal ECG Confirmed by GENARO SARGENT MD ([id number]), metropolitan editor EVER GAONA ([id number]) on 09/04/2024 1:32:03 PM Referred By: UG/TL Confirmed By: GENARO SARGENT MD 09/04/24 1332 Date Genaro Sargent MD CC: CHILD STUDY TEAM DIRECTOR-C Louann Bermeo; Dr. Evans Carter MD; Dr. Randy Bailey MD Signed Normal [facility] Base excess Calc (BldV) [Mol es/Vol]Ordered By: Randy Bailey on 09-03-2024 Venous Blood Base Excess 13 mmol/L High -1.0-3.5 [facility] Bilirubin, totalOrdered By: Randy Bailey on 09-03-2024 Bilirubin [Mass/Vol] 0.24 mg/dL 0.00-1.30 [facility] Blood cultureOrdered By: Randy Bailey on 09-03-2024 Bacteria identified Cx Nom (Bld) No growth in 5 days. [facility] Bacteria identified Cx Nom (Bld) No growth in 5 days. [facility] CBC W/Diff, Automatedon 08-07 Absolute Lymph 1.63 X10 3/uL Normal 0.83-4.51 [facility] Comment on above: Performed By: #### L 9000.0810 #### [facility] [address] [place], [address] Absolute Neut 12.0 X10 3/uL High 2.0-7.7 [facility] Comment on above: Performed By: #### L 9000.0810 #### [facility] [address] [place], [address] Basophils/100 WBC (Bld) 0.2 % Normal 0-1 [facility] Comment on above: Performed By: #### L 9000.0810 #### [facility] [address] [place], [address] Eosinophils/100 WBC (Bld) 0.7 % Normal 0-5 [facility] Comment on above: Performed By: #### L 9000.0810 #### [facility] [address] [place], [address] Erythrocyte distribution width (RBC) [Ratio] 18.7 % High 11.6-14.6 [facility] Comment on above: Performed By: #### L 9000.0810 #### [facility] [address] [place], [address] Hematocrit (Bld) [Volume fraction] 44.0 % Normal 37-47 [facility] Comment on above: Performed By: #### L 9000.0810 #### [facility] [address] [place], [address] Hemoglobin (Bld) [Mass/Vol] 11.8 g/dL Low 12.0-15.0 [facility] Comment on above: Performed By: #### L 8999.0810 #### [facility] [address] [place], [address] IG% 1.200 High 0.0-0.9 [facility] Comment on above: Result Comment: IG% - Immature Granulocytes (promyelocytes, myelocytes and metamyelocytes) > 1% indicates that a LEFT SHIFT is Present. Performed By: #### L 900.0810 #### [facility] [place], [address] Lymphocytes/100 WBC (Bld) 10.9 % Low 19-41 [facility] Comment on above: Performed By: #### L 9000.0810 #### [facility] [place], [address] MCH (RBC) [Entitic mass] 20.2 pg Low 27.0-32.0 [facility] Comment on above: Performed By: #### L 900.0810 #### [facility] [address] [facility] [place], [address] MCHC (RBC) [Mass/Vol] 26.8 g/dL Low 32-36 [facility] Comment on above: Performed By: #### L 900.0810 #### [facility] [address] [facility] [place], [address] MCV (RBC) [Entitic vol] 75.5 fL Low 81-99 [facility] Comment on above: Performed By: #### L 900.0810 #### [facility] [address] [place], [address] Monocytes/100 WBC (Bld) 6.9 % Normal 0-10 [facility] Comment on above: Performed By: #### L 900.0810 #### [facility] [address] [place], [address] Neutrophils/100 WBC (Bld) 80.1 % High 47-70 [facility] Comment on above: Performed By: #### L 900.0810 #### [facility] [address] [place], [address] Nucleated RBC (Bld) [#/Vol] 0.5 10*3/uL Normal 0-5 [facility] Comment on above: Performed By: #### L 900.0810 #### [facility] [address] [place], [address] Platelet mean volume (Bld) [Entitic vol] 10.3 fL Normal 6.2-12.0 [facility] Comment on above: Performed By: #### L 900.0810 #### [facility] [address] [place], [address] Platelets (Bld) [#/Vol] 276 10*3/uL Normal 150-450 [facility] Comment on above: Performed By: #### L 900.0810 #### [facility] [address] [place], [address] RBC (Bld) [#/Vol] 5.83 10*6/uL High 4.2-5.4 [facility] Comment on above: Performed By: #### L 9000.0810 #### [facility] [address] [place], [address] RDW SD 49.2 fl High 35.1-43.9 [facility] Comment on above: Performed By: #### L 900.0810 #### [facility] [address] [place], [address] WBC (Bld) [#/Vol] 15.0 10*3/uL High 4.4-11.0 [facility] Comment on above: Performed By: #### L 9000.0810 #### [facility] [address] [place], [address] CO2 (BldV) [Moles/Vol]Ordere d By: Randy Bailey on 09-03-2024 CO2 [Moles/Vol] 42 mmol/L High 23-33 [facility] CO2 (BldV) [Partial pressure ]Ordered By: Randy Bailey on 09-03-2024 Bed Mix Venous Bld PCO2 at Pat Temp 74.7 mmHg High 41-51 [facility] Chest 1 View (Portable)on Chest 1 View (Portable) [facility] Imaging Services [address] [place] [address] Chest 1 View (Portable) MR#: [id number] Acct: [id number] Name: TORRIE MARTINEZ Rep #: [id number] : 1990 F 34 From: Joel Guevara MD PCP: Louann Bermeo, CHILD STUDY TEAM DIRECTOR-C Status: [facility] ER Study: Chest 1 View (Portable) Date of Exam: 09/03/24 Exam# [id number] Ordering Dr: Randy Bailey MD PROCEDURE: CHEST 1 VIEW (PORTABLE) (RADCXPA_P), 09/03/2024 REASON FOR EXAM: FEVER, COUGH, WHEEZING, RESPIRATORY FAILURE TECHNIQUE: A single portable AP view of the chest was obtained. COMPARISON: 05/26/2024 FINDINGS: Heart: Unremarkable. Mediastinum: Unremarkable. Lungs/pleura: Similar slight elevation of the LEFT hemidiaphragm with grossly similar chronic LEFT basilar atelectasis/scarring . New RIGHT upper lobe consolidation well marginated by the minor fissure. No sizeable pleural effusion or visible pneumothorax. Bones: Unremarkable. Lines and support devices: None. Other: None. RAD/Chest 1 View (Portable) IMPRESSION: 1. Findings compatible with RIGHT upper lobe pneumonia. Follow-up to radiographic resolution. 2. Additional description as above. Reading Location: [facility] CC: CHILD STUDY TEAM DIRECTORJeff Bermeo; Dr. Randy Bailey MD [place]: Signed Normal [facility] Comprehensive Metabolic Prof ilon 09-03-2024 Albumin [Mass/Vol] 4.0 g/dL Normal 3.5-5.0 [facility] Comment on above: Performed By: #### L 100.0100, L500.2500 #### [facility] [address] [place], [address] Albumin/Globulin [Mass ratio] 1.9 {ratio} Normal 0.9-2.4 [facility] Comment on above: Performed By: #### L 100.0100, L500.2500 #### [facility] [address] [place], [address] ALK PHOS 98 U/L Normal 35-104 [facility] Comment on above: Performed By: #### L 100.0100, L500.2500 #### [facility] [address] [place], [address] ALT [Catalytic activity/Vol] 29 U/L Normal <=34 [facility] Comment on above: Performed By: #### L 100.0100, L500.2500 #### [facility] [address] [place], [address] AST [Catalytic activity/Vol] 33 U/L High <=31 [facility] Comment on above: Performed By: #### L 100.0100, L500.2500 #### [facility] [address] [place], [address] Bilirubin [Mass/Vol] 0.24 mg/dL Normal 0.00-1.30 [facility] Comment on above: Performed By: #### L 100.0100, L500.2500 #### [facility] [address] [place], [address] BUN/CRE 15.3 RATIO Normal 10-20 [facility] Comment on above: Performed By: #### L 100.0100, L500.2500 #### [facility] [address] [place], [address] Calcium [Mass/Vol] 8.7 mg/dL Normal 7.6-11.0 [facility] Comment on above: Performed By: #### L 100.0100, L500.2500 #### [facility] [address] [place], [address] Chloride [Moles/Vol] 99 mmol/L Normal 98-108 [facility] Comment on above: Performed By: #### L 100.0100, L500.2500 #### [facility] [address] [place], [address] CO2 [Moles/Vol] 35.6 mmol/L High 21.0-32.0 [facility] Comment on above: Performed By: #### L 100.0100, L500.2500 #### [facility] [address] [place], [address] Creatinine [Mass/Vol] 0.72 mg/dL Normal 0.70-1.20 [facility] Comment on above: Performed By: #### L 100.0100, L500.2500 #### [facility] [address] [place], [address] ECRCL 220.04 ml/min Normal 50-250 [facility] Comment on above: Performed By: #### L 100.0100, L500.2500 #### [facility] [address] [place], [address] GAP 8 Normal 5-15 [facility] Comment on above: Performed By: #### L 100.0100, L500.2500 #### [facility] [address] [place], [address] GFR/1.73 sq M.predicted among non-blacks MDRD (S/P/Bld) [Vol rate/Area] 114 mL/min/{1.73_m2} Normal >60 [facility] Comment on above: Result Comment: mL/m in/1.73m2 CKD-EPI Creatinine Equation (2020) Performed By: #### L 100.0100, L500.2500 #### [facility] [address] [place], [address] Globulin (S) [Mass/Vol] 2.1 g/dL Low 2.2-4.2 [facility] Comment on above: Performed By: #### L 100.0100, L500.2500 #### [facility] [address] [place], [address] Glucose [Mass/Vol] 102 mg/dL High 70-99 [facility] Comment on above: Performed By: #### L 100.0100, L500.2500 #### [facility] [address] [place], [address] Potassium [Moles/Vol] 4.4 mmol/L Normal 3.3-5.1 [facility] Comment on above: Performed By: #### L 100.0100, L500.2500 #### [facility] [address] [place], [address] Sodium [Moles/Vol] 142 mmol/L Normal 133-145 [facility] Comment on above: Performed By: #### L 100.0100, L500.2500 #### [facility] [address] [place], [address] T PROT 6.1 g/dL Normal 5.9-8.4 [facility] Comment on above: Performed By: #### L 100.0100, L500.2500 #### [facility] [address] [place], [address] Urea nitrogen [Mass/Vol] 11 mg/dL Normal 4-19 [facility] Comment on above: Performed By: #### L 100.0100, L500.2500 #### [facility] [address] [place], [address] Determination of fraction of inspired oxygenOrdered By: Randy Bailey on 09-03-2024 Blood Gas Oxygen Percent 70.0 [facility] Emergency Department Summary on 09-03-2024 Emergency Department Summary [facility] Medical Records Department [address] [place] [address] Emergency Department Summary 09/03/24 MR#: [id number] Acct: [id number] Name: TORRIE MARTINEZ Rep #: [id number] : 1990 34 From: Randy Bailey MD PCP: Louann Bermeo CHILD STUDY TEAM DIRECTOR-C Status:REG ER Location: ED HPI History of Present Illness Chief Complaint: Shortness of Breath Detail of Chief Complaint: Shortness of breath and upper respiratory symptoms Informant: patient, family and EMS (Pulse ox was 60% when patient was supine.) Onset/Context/Timing Onset: Days Context: Gradual Onset Timing: Continuous Quality: Dyspnea, [place] exertion, orthopnea, infectious symptoms Location: Respiratory Current Severity: Moderate Maximum Severity: Severe Worsened by: Movement and supine position Relieved by: Nothing Associated Symptoms Associated Symptoms: Left leg pain that started today Narrative Narrative: Patient is a 34-year-old female with history of obstructive sleep apnea, congestive heart failure, lymphedema, chronic respiratory failure on 5 L of oxygen by nasal cannula. She is seen by Dr. Holcomb at the [facility]. She had recent pulmonary function test done. Patient denies headache, visual, ocular auditory symptoms. She does endorse congestion and mild sore throat. Her voice is hoarse. She does have a cough. The cough is nonproductive. She states she normally wheezes. She has been on prednisone in the past. Patient denies chest discomfort of any type. Patient denies GI or symptoms. She denies history of VTE. There is no history of trauma to the left lower extremity. The pain is from the distal thigh down to her ankle. Prior similar symptoms: Yes Recent Illness/Hospitalizat ion: Yes ([facility]. She states she was on a Lasix drip.) [facility] Medical History Pneumonia COPD (chronic obstructive pulmonary disease) Environmental allergies Anemia Depression Asthma Medical History no medical history Home Medications ???Medication ???Instructions ???Recorded ???Last Taken ???Type montelukast 10 mg tablet 10 mg PO DAILY 03/13/18 09/02/24 H istory furosemide 20 mg tablet 20 mg PO DAILY 02/08/24 09/02/24 H istory albuterol sulfate 90 mcg/actuation 1 - 2 puff inhalation Q4H PRN Unknown History aerosol inhaler Wheezing bumetanide 1 mg tablet 1 mg PO DAILY 09/03/24 09/02/24 Hi story bupropion HCl 150 mg 24 hr tablet, 150 mg PO DAILY 09/03/24 5 History extended release cetirizine 10 mg tablet 10 mg PO DAILY 09/03/24 09/02/24 H istory cyclosporine 0.05 % eye drops in a 1 drp ophthalmic (eye) BID 09/03 Unknown History dropperette famotidine 20 mg tablet 20 mg PO BID PRN stomach upset Unknown History ferrous sulfate 325 mg (65 mg 325 mg PO DAILY 09/03/24 09/02/24 History iron) tablet (FeroSul) fluticasone fur. 200 mcg-umeclid 1 ea inhalation DAILY 09/03/24 History 62.5 mcg-vilant 25 mcg inhalat.powder (Trelegy Ellipta) fluticasone propionate 50 1 spray intranasal BID allergy Unknown History mcg/actuation nasal symptoms spray,suspension potassium chloride 20 mEq 20 meq PO DAILY 09/03/24 09/02/24 History tablet,extended release(part/cryst) sertraline 50 mg tablet 25 mg PO DAILY 09/03/24 Unknown Hi story valacyclovir 500 mg tablet 500 mg PO BID 09/03/24 09/02/24 Hi story Allergy/AdvReac Type Severity Reaction Status Date / Time No Known Allergies Allergy Verified 09/03/24 14:28 Family History no significant family his Surgical History Hx of knee surgery Hx of section Surgical History no surgical history Social History Smoking Status: Former smoker ROS ROS ED Constitutional Constitutional ED: Reports chills, fever(s) and subjective; Denies sweats or weight loss Eyes Eyes: Reports other Details: Slight drainage from both of her eyes. ; Denies blurry vision or change in vision ENT ENT ED: Reports rhinorrhea and sore throat Cardiovascular Cardiovascular: Reports orthopnea; Denies chest pain, palpitations, paroxysmal nocturnal dyspnea or racing heartbeat Respiratory/Chest Respiratory/Chest: Reports cough, dyspnea, dyspnea on exertion and orthopnea; Denies paroxysmal nocturnal dyspnea Gastrointestinal Gastrointestinal: Denies abdominal pain, diarrhea, melena, nausea or vomiting Genitourinary Genitourinary ED: Denies dysuria, hematuria or urinary frequency Musculoskeletal Musculoskeletal: Reports other Details: Left lower extremity pain as previously described. ; Denies arthralgias or myalgias Integumentary Denies rash Psychiatric Psychiat (more content not included)... Normal [facility] H AND P Exam - Hospitaliston 09-03-2024 H&P Exam - Hospitalist [facility] Medical Records Department [address] [place] [address] H P Exam - Hospitalist 09/03/24 1800 MR#: [id number] Acct: [id number] Name: TORRIE MARTINEZ Rep #: [id number] : 1990 34 From: Jesse Lobo MD PCP: Louann Bermeo, CHILD STUDY TEAM DIRECTOR-C Status:ADM IN Location: ICU [id number] HPI - General General Date of Admission: 09/03/24 HPI Narrative TORRIE MARTINEZ, is a 34 F who presents to the hospital with increasing shortness of breath. She has a history of asthma and has noticed that over the last couple of days that she was having increased shortness of breath with a slight increase in her cough. Today she noticed that she had some fevers and with her shortness of breath and upper respiratory symptoms she presented to the hospital. She was found to be 60% when laying back on her home 5 L nasal cannula and ABG demonstrated pH of 7.2 and a VBG PCO2 low of 83 so she was placed on BiPAP with subsequent improvement of her pCO2 to 74 however her oxygen saturations were sitting at 94% on 60% FiO2. Chest x-ray demonstrates a right upper lobe consolidation and with her leukocytosis and fever consistent with pneumonia. [facility] Medical History Pneumonia COPD (chronic obstructive pulmonary disease) Environmental allergies Anemia Depression Asthma Medical History no medical history Home Medications ???Medication ???Instructions ???Recorded ???Last Taken ???Type montelukast 10 mg tablet 10 mg PO DAILY 03/13/18 09/02/24 H istory albuterol sulfate 90 mcg/actuation 1 - 2 puff inhalation Q4H PRN Unknown History aerosol inhaler Wheezing bumetanide 1 mg tablet 1 mg PO DAILY 09/03/24 09/02/24 Hi story bupropion HCl 150 mg 24 hr tablet, 150 mg PO DAILY 09/03/24 5 History extended release cetirizine 10 mg tablet 10 mg PO DAILY 09/03/24 09/02/24 H istory cyclosporine 0.05 % eye drops in a 1 drp ophthalmic (eye) BID 09/03 Unknown History dropperette famotidine 20 mg tablet 20 mg PO BID PRN stomach upset Unknown History ferrous sulfate 325 mg (65 mg 325 mg PO DAILY 09/03/24 09/02/24 History iron) tablet (FeroSul) fluticasone fur. 200 mcg-umeclid 1 ea inhalation DAILY 09/03/24 History 62.5 mcg-vilant 25 mcg inhalat.powder (Trelegy Ellipta) fluticasone propionate 50 1 spray intranasal BID allergy Unknown History mcg/actuation nasal symptoms spray,suspension potassium chloride 20 mEq 20 meq PO DAILY 09/03/24 09/02/24 History tablet,extended release(part/cryst) sertraline 50 mg tablet 25 mg PO DAILY 09/03/24 Unknown Hi story Allergy/AdvReac Type Severity Reaction Status Date / Time No Known Allergies Allergy Verified 09/03/24 14:28 Family History (Updated 09/03/24 @ 18:[address] Jesse Lobo MD) Other Cancer Family History no significant family his Surgical History Hx of knee surgery Hx of section Surgical History no surgical history Social History Smoking Status: Former smoker ROS Constitutional Constitutional: Reports chills and fever(s); Denies fatigue or malaise Eyes Eyes: Denies blurry vision ENT HEENT: Denies headache(s) or nasal discharge Cardiovascular Cardiovascular: Denies chest pain, dyspnea on exertion or syncope Respiratory/Chest Respiratory/Chest: Reports cough, shortness of breath at rest and shortness of breath with exertion Gastrointestinal Gastrointestinal: Denies constipation, diarrhea, nausea or vomiting Genitourinary Genitourinary: Denies dysuria Neurologic Neurologic: Denies focal weakness, numbness or tremor(s) Psychiatric Psychiatric: Denies anxiety or depression Vital Signs Vital Signs Vital Signs: 09/03/24 14:21 09/03/24 14:25 09/03/24 14:28 Temperature 98.7 F 98.7 F Temperature Source Oral Oral Pulse Rate 137 H 135 H Respiratory Rate 28 H 29 H Respiratory Effort Short of Breath Labored Respiratory Depth Shallow Respiratory Pattern Tachypnea Blood Pressure 156/139 H 168/96 H Blood Pressure Mean 144 120 Pulse Ox 92 96 Oxygen Delivery Method High Flow High Flow High Flow Oxygen Flow Rate (L/min) 15 13 13 Fraction of Inspired Oxygen (FIO2) 09/03/24 15:14 09/03/24 15:15 09/03/24 15:23 Temperature 99.4 F H Temperature Source Oral Pulse Rate 130 H 131 H 131 H Respiratory Rate 23 H 23 H 25 H Respiratory Effort Respiratory Depth Respiratory Pattern Blood Pressure 155/80 H 155/80 H Blood Pressure Mean 93 105 Pulse Ox 91 90 92 Oxygen Delivery Method High Flow Oxygen Flow Rate (L/min) 13 Fraction of Inspired (more content not included)... Normal [facility] Influenza virus A and B and SARS-CoV-2 (COVID-19) and Respiratory syncytial virus RNAOrdered By: Randy Bailey on 09-03-2024 SARS-CoV-2 (COVID-19) RNA GUNJAN+probe Ql (Unsp spec) [facility] - Chemistry and C hemistry - challengeOrdered By: Randy Bailey on 09-03-2024 AST [Catalytic activity/Vol] 33 U/L High <32 [facility] Lactic Acidon 09-03-2024 Lactate [Moles/Vol] mmol/L Normal 0.0-2.0 [facility] Comment on above: Order Comment: Y Performed By: #### L 9000.0810 #### [facility] [address] [place], [place], [address] Lactic acid measurementOrder ed By: Randy Bailey on 09-03-2024 Lactate [Moles/Vol] mmol/L 0.0-2.0 [facility] M100.678on 09-03-2024 M100.678 Pending SARS-CoV-2 (COVID 19) Negative INFLUENZA A Negative INFLUENZA B Negative RSV PCR Negative Normal [facility] Comment on above: Performed By: #### L 100.0100, L500.2500 #### [facility] [address] [place], [place], [id number] No Panel InformationOrdered By: Randy Bailey on 09-03-2024 Bld Gas Crit Called To/Read Back By Yes [facility] Blood Gas Notified Time 17:24:21 [facility] Blood Gas Notified Whom [facility] Blood Gas Sample Site Not entered [facility] Blood Gas Specimen Type SILVINO [facility] Oxygen Delivery Device BiPAP [facility] Oxygen (BldV) [Partial press ure]Ordered By: Randy Bailey on 09-03-2024 Venous Blood Partial Pressure O2 71 mmHg High 25-40 [facility] Serum globulin measurementOr dered By: Randy Bailey on 09-03-2024 Globulin (S) [Mass/Vol] 2.1 g/dL Low 2.2-4.2 [facility] Serum or plasma alanine díaz otransferase (ALT) measurementOrdered By: Randy Bailey on 09-03-2024 ALT [Catalytic activity/Vol] 29 U/L <35 [facility] Serum or plasma albumin maryjane urement (mass/volume)Ordered By: Randy Bailey on 09-03-2024 Albumin [Mass/Vol] 4.0 g/dL 3.5-5.0 [facility] Serum or plasma albumin/glob ulin mass ratioOrdered By: [facility] on 09-03-2024 Albumin/Globulin [Mass ratio] 1.9 {ratio} 0.9-2.4 [facility] Serum or plasma alkaline kelly sphatase measurementOrdered By: [facility] on 09-03-2024 ALP [Catalytic activity/Vol] 98 U/L 35-104 [facility] Total proteinOrdered By: [facility] on 09-03-2024 Protein [Mass/Vol] 6.1 g/dL 5.9-8.4 [facility] Venous Blood Gason Blood Gas Type SILVINO Normal [facility] Comment on above: Performed By: #### L 9000.0810 #### [facility] [address] [place], [address] CO2 [Moles/Vol] 42 mmol/L High 23-33 [facility] Comment on above: Performed By: #### L 9000.0810 #### [facility] [address] [place], [address] FI02 70.0 Normal [facility] Comment on above: Performed By: #### L 9000.0810 #### [facility] [address] [place], [address] HCO3 (Bld) [Moles/Vol] 39 mmol/L High 22-26 [facility] Comment on above: Performed By: #### L 9000.0810 #### [facility] [address] [place], [address] O2 Delivery Dev BiPAP Normal [facility] Comment on above: Performed By: #### L 9000.0810 #### [facility] [address] [place], [address] Read Back By Yes Normal [facility] Comment on above: Performed By: #### L 9000.0810 #### [facility] [address] [place], [address] Results To ug Normal [facility] Comment on above: Performed By: #### L 9000.0810 #### [facility] [address] [place], [address] SITE Not entered [facility] Comment on above: Performed By: #### L 9000.0810 #### [facility] [address] [place], [address] Time Given 17:24:21 [facility] Comment on above: Performed By: #### L 9000.0810 #### [facility] [address] [place], [address] VBG BE 13 mmol/L High -1.0-3.5 [facility] Comment on above: Performed By: #### L 9000.0810 #### [facility] [address] [place], [address] VBG pCO2 74.7 mmHg Invalid Interpretation Code 41-51 [facility] Comment on above: Performed By: #### L 9000.0810 #### [facility] [address] [place], [address] VBG pH 7.33 Normal 7.32-7.42 [facility] Comment on above: Performed By: #### L 9000.0810 #### [facility] [address] [place], [address] VBG PO2 71 mmHg High 25-40 [facility] Comment on above: Performed By: #### L 9000.0810 #### [facility] [address] [place], [address] VBG SO2 92 High 50-70 [facility] Comment on above: Performed By: #### L 9000.0810 #### [facility] [address] [place], [address] Blood Gas Type SILVINO [facility] Comment on above: Performed By: #### L 9000.0810 #### [facility] [address] [place], [address] CO2 [Moles/Vol] 43 mmol/L High 23-33 [facility] Comment on above: Performed By: #### L 9000.0810 #### [facility] [address] [place], [address] FI02 13.0 [facility] Comment on above: Performed By: #### L 9000.0810 #### [facility] [address] [place], [address] HCO3 (Bld) [Moles/Vol] 41 mmol/L High 22-26 [facility] Comment on above: Performed By: #### L 9000.0810 #### [facility] [address] [place], [address] O2 Delivery Dev Cannula [facility] Comment on above: Performed By: #### L 9000.0810 #### [facility] [address] [place], [address] Read Back By Yes [facility] Comment on above: Performed By: #### L 9000.0810 #### [facility] [address] [place], [address] Results To [facility] Comment on above: Performed By: #### L 9000.0810 #### [facility] [address] [place], [address] SITE Not entered [facility] Comment on above: Performed By: #### L 9000.0810 #### [facility] [address] [place], [address] Time Given 15:40:35 Normal [facility] Comment on above: Performed By: #### L 9000.0810 #### [facility] [address] [place], [address] VBG BE 14 mmol/L High -1.0-3.5 [facility] Comment on above: Performed By: #### L 9000.0810 #### [facility] [address] [place], [address] VBG pCO2 83.3 mmHg Invalid Interpretation Code 41-51 [facility] Comment on above: Performed By: #### L 9000.0810 #### [facility] [address] [place], [address] VBG pH 7.30 Low 7.32-7.42 [facility] Comment on above: Performed By: #### L 9000.0810 #### [facility] [address] [place], [address] VBG PO2 30 mmHg Normal 25-40 [facility] Comment on above: Performed By: #### L 9000.0810 #### [facility] [address] [place], [address] VBG SO2 47 Low 50-70 [facility] Comment on above: Performed By: #### L 9000.0810 #### [facility] [address] [place], [address] Venous Duplex US, Unilateral on 09-03-2024 Venous Duplex US, Unilateral [facility] [address] [place] [address] Venous Duplex US, Unilateral 09/03/24 1538 MR#: [id number] Acct: [id number] Name: TORRIE MARTINEZ #: [id number] : 1990 34 From: Neo Greenberg MD Attending Dr: Status: REG ER Ordering Dr: Randy Bailey MD Date: 09/03/24 Location: ED Sex: F AA Admitted: Reason For Study Reason For Study: LLE Pain Procedure LEFT This is a venous duplex using B-mode, color flow and GSV is normal. spectral Doppler. CFV is compressible, spontaneous, phasic, competent, Exam performed portable in ED. and demonstrates normal augmentation. Limited views were obtained due to body habitus. FV is compressible, spontaneous, phasic, competent A preliminary report was called and/or faxed to and demonstrates normal augmentation. Bailey. POP V is compressible, spontaneous, phasic, competent and demonstrates normal augmentation. T/P Trunk is compressible. PTV is compressible. Unable to acquire compressions at mid and dist Femoral Vein. Flow noted in pulsed wave and color doppler. Unable to visualize Ashish V. VL/Venous Duplex US, Unilateral Interpretation Summary Deep veins of the left lower extremity are patent and compressible segmentally. There is no evidence of left lower extremity deep vein thrombosis. The left great saphenous vein appears patent and compressible segmentally. Limited study Ordering Physician: Randy Bailey Referring Physician: Louann Bermeo Performed By: Srinath Chahal, RVT 09/03/24 172 Date Neo Greenberg MD CC: CHILD STUDY TEAM DIRECTOR-C Louann Bermeo; Dr. Randy Bailey MD Date Dictated: 09/03/24 1538 Date Transcribed: 04/29/25 1722 [place]: Signed Normal [facility] Venous blood base excess amndie surementOrdered By: Randy Bailey on 09-03-2024 Base excess Calc (BldV) [Moles/Vol] 13 mmol/L High -1.0-3.5 [facility] Venous blood bicarbonate mandie surementOrdered By: Randy Bailey on 09-03-2024 HCO3 (Bld) [Moles/Vol] 39 mmol/L High 22-26 [facility] Venous blood oxygen saturati on measurementOrdered By: Randy Bailey on 09-03-2024 Oxygen saturation in Blood 92 % High 50-70 [facility] Venous blood pH measurementO rdered By: Randy Bailey on 09-03-2024 pH (BldV) 7.33 [pH] 7.32-7.42 [facility] Venous blood partial pressur e of carbon dioxide measurementOrdered By: Randy Bailey on 09-03-2024 CO2 (BldV) [Partial pressure] 74.7 mm[Hg] High 41-51 [facility] Venous blood partial pressur e of oxygen measurementOrdered By: Randy Bailey on 09-03-2024 Oxygen (BldV) [Partial pressure] 71 mm[Hg] High 25-40 [facility] Venous duplex ultrasound rep ortOrdered By: Neo Greenberg on 09-03-2024 US Vein [facility] [address] [place] [address] Venous Duplex US, Unilateral 09/03/24 1538 MR#: [id number] Acct: [id number] Name: TORRIE MARTINEZ Rep #:[id number] : 1990 34 From: Neo Mora Attending Dr: Status: REG E R Ordering Dr: Randy Bailey MD Date: 09/03 Location: ED Sex: F AA Admitted: Reason For Study Reason For Study: LLE Pain Procedure LEFT This is a venous duplex using B-mode, color flow and GSV is normal. spectral Doppler. CFV is compressible, spontaneous, phasic, competent, Exam performed portable in ED. and demonstrates normal augmentation. Limited views were obtained due to body habitus. FV is compressible, spontaneous, phasic, competent A preliminary report was called and/or faxed to and demonstrates normal augmentation. Bailey. POP V is compressible, spontaneous, phasic, competent and demonstrates normal augmentation. T/P Trunk is compressible. PTV is compressible. Unable to acquire compressions at mid and dist Femoral Vein. Flow noted in pulsed wave and color doppler. Unable to visualize Ashish V. VL/Venous Duplex US, Unilateral Interpretation Summary Deep veins of the left lower extremity are patent and compressible segmentally. There is no evidence of left lower extremity deep vein thrombosis. The left great saphenous vein appears patent andcompressible segmentally. Limited study Ordering Physician: Randy Bailey Referring Physician: Louann Bermeo Performed By: Srinath Chahal, T 09/03/24 1722 Date _ Neo Greenberg MD CC: CHILD STUDY TEAM DIRECTOR-C Louann Bermeo; Dr. Randy Bailey MD ~ Date Dictated: 09/03/24 1538 Date Transcribed: 09/03/24 172 [place]: Signed [facility] Work Phone: pH (BldV)Ordered By: Randy meng on 09-03-2024 Venous Blood pH 7.33 7.32-7.42 [facility] CNPNon 09-02-2024 CNPN Normal [facility] No Panel Informationon 08-28 DLCO (ml/min/mmHg) 19.74 ml/min/mmHg [facility] DLCO LLN (ml/min/mmHg) 21.37 ml/min/mmHg [facility] DLCO PREDICTED (ml/min/mmHg) 27.54 ml/min/mmHg [facility] DLCO ULN (ml/min/mmHg) 33.71 ml/min/mmHg C [facility] DLCO/VA (ml/min/mmHg/L) 0.06 ml/m in/mmHg /L [facility] DLCO/VA PREDICTED (ml/min/mmHg/L) 0.05 ml/min/mmHg /L [facility] DLCO/VAcor (ml/min/mmHg/L) 0.06 ml/min/mmHg /L [facility] DLCOcor (ml/min/mmHg) 19.47 ml/min/mmHg [facility] DLCOcor PREDICTED (ml/min/mmHg) 27.54 ml/min/mmHg [facility] ERV BOX (L) 0.26 L [facility] ERV PREDICTED (L) 1.54 L/S [facility] FEF25% POST (L/S) 0.93 L/S [facility] FEF25% PRE (L/S) 0.6 L/S [facility] HQG17-15% LLN (L/S) 2.04 L/S [facility] NIE47-01% POST (L/S) 0.67 L/S [facility] PEH38-70% PRE (L/S) 0.23 L/S [facility] BOW42-07% PREDICTED (L/S) 3.56 L/S [facility] FEF75% LLN (L/S) 0.62 L/S [facility] FEF75% POST (L/S) 0.43 L/S [facility] FEF75% PRE (L/S0 0.12 L/S [facility] FEF75% PREDICTED (L/S) 1.35 L/S [facility] FEF75% ULN (L/S) 2.57 L/S [facility] FET POST (S) 14.59 S [facility] FET PRE (S) 12.91 S [facility] FEV1 LLN (L) 2.94 L [facility] FEV1 PRE (L) 0.72 L [facility] FEV1 PREDICTED (L) 3.83 L [facility] FEV1 ULN (L) 4.69 L [facility] FEV1/FVC LLN (%) 73 % [facility] FEV1/FVC POST (%) 40 % [facility] FEV1/FVC PRE (%) 40 % [facility] FEV1/FVC PREDICTED (%) 83 % [facility] FEV1_POST (L) 1.01 L [facility] FRC Gas (L) 1.35 L [facility] FVC LLN (L) 3.57 L [facility] FVC POST (L) 2.54 L [facility] FVC PRE (L) 1.79 L [facility] FVC PREDICTED (L) 4.63 L [facility] FVC ULN (L) 5.72 L [facility] IC BOX (L) 1.59 L [facility] IC PREDICTED (L) 3.09 L/S [facility] PEF LLN (L/S) 5.55 L/S [facility] PEF POST (L/S) 2.4 L/S [facility] PEF PRE (L/S) 1.72 L/S [facility] PEF ULN (L/S) 10.48 L/S [facility] RV Gas (L) 1.11 L [facility] RV Gas PREDICTED (L) 1.78 L [facility] RV/TLC Gas (%) 38 % [facility] RV/TLC Gas PREDICTED (%) 28 L [facility] SVC LLN (L) 3.57 L/S [facility] SVC PREDICTED (L) 4.63 L/S [facility] SVC ULN (L) 5.72 L/S [facility] TLC Gas (L) 2.95 L [facility] TLC Gas PREDICTED (L) 6.1 L [facility] (L) 3.09 L [facility] VA PREDICTED (L) 6.21 L [facility] VC (L) BOX 1.85 L [facility] [address] [place] [address] Test Date: 2024-08-27 Pat Name: TORRIE MARTINEZ Department: Room: 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 No contraindications or sensitivities were noted. Meds taken: No inhaled respiratory medications taken before testing. PRE-BRONCHODILATOR: The two largest FVCs were repeatable. The two largest FEV1s were repeatable. Early termination of expiration and no valid expiratory plateau per ATS/ERS guidelines. Nitrogen washout performed for lung volume measurements. Current ATS/ERS acceptability and repeatability criteria for lung volumes met. The two acceptable DLCO measurements obtained were repeatable. Breath hold time for DLCO is higher than ATS/ERS criteria. 4 puffs Albuterol (360 mcg) delivered by MDI via holding chamber. HR pre = 100 /min, HR post = 90/min. POST-BRONCHODILATOR: Current ATS/ERS acceptability and repeatability standards for spirometry met. Start of test and EOFE criteria met. IMPRESSION: Spirometry indicate obstruction but the degree of obstruction cannot be determined due to concomitant restriction. Positive bronchodilator response. The total lung capacity is reduced indicating restriction. The diffusing capacity (uncorrected for hemoglobin) is reduced. The kCO (DLCO/VA) reflects a normal transfer/diffusion of CO from the alveolar regions to the blood. Clinical correlation recommended. Electronically Signed On 08-28-2024 05:46:09 EDT by Bere Holcomb MD ID: [id number] Name: JASTORRIE Gutierrez Race: Black or Ht: 71.00 in Wt: 439.00 lbs Age: 34 Gender: Female : 1990 Dx: Severe persistent asthma, uncomplicated Smoking Hx: Non-smoker Doctor: RADHA CHAPMAN Test Date: 08/27/2024 Site: Tech: Torrie Syed PRE-BRONCH POST-BRONCH Maryjane LLN Pred ULN %Pred ZScore Maryjane %Pred %Chg ZScore SPIROMETRY FVC 1.79 3.57 4.63 5.72 38 -4.53 2.54 54 16 -3.29 FEV1 0.72 2.94 3.83 4.69 18 -5.18 1.01 26 7 -4.78 FEV1/FVC 0.40 0.73 0.83 0.92 48 -4.20 0.40 47 -1 -4.22 FEFMax 1.72 5.55 8.01 10.48 21 -4.20 2.40 29 39 -3.74 FEF50 0.30 2.97 4.57 6.18 6 -4.37 0.71 15 134 -3.95 FIF50 1.96 1.87 -4 FEF50/FIF50 0.15 90-100 0.38 145 FIVC 0.49 2.02 314 WDT89-97 0.23 2.04 3.56 5.42 6 -4.65 0.67 18 187 -3.65 ExpiredTime 12.91 14.59 12 TimeToFEFMax 0.14 0.10 -29 FRANCI 0.05 0.03 -29 VolExtrap% 3 1 -50 LUNG VOLUMES FRC(N2) 1.35 2.55 3.41 4.27 39 -3.94 ERV 0.26 1.54 16 RV(N2) 1.11 1.16 1.78 2.41 62 -1.77 SVC 1.85 3.57 4.63 5.72 39 -4.43 IC 1.59 3.09 51 TLC(N2) 2.95 5.22 6.10 6.98 48 -5.89 RV/TLC(N2) 38 19 28 37 135 1.79 LUNG DIFFUSION DLCOunc 19.74 21.37 27.54 33.71 71 -2.08 DLCOStdPB 19.47 21.37 27.54 33.71 70 -2.15 VA 3.09 5.11 6.21 7.31 49 -4.66 Kco 6.31 3.37 4.26 5.27 147 3.19 Comments: Medications and Allergies were reviewed for possible drug interactions per policy. No contraindications or sensitivities were noted. Meds taken: No inhaled respiratory medications taken before testing. PRE-BRONCHODILATOR: The two largest FVCs were repeatable. The two largest FEV1s were repeatable. Early termination of expiration and no valid expiratory plateau per ATS/ERS guidelines. Nitrogen (more content not included)... PULMONARY FUNCTION LAB [facility] CNOVon 08-27-2024 CNOV Normal [facility] LUNG DIFFUSION CAPACITY (LIDIA O)on 08-27-2024 LUNG DIFFUSION CAPACITY (DLCO) Normal [facility] LUNG VOLUMESon 08-27-2024 LUNG VOLUMES Normal [facility] No Panel Informationon 08-27 Torrie Syed RPFT 08/27/2024 9:44 AM RESPIRATORY THERAPY ORAL EXHALED NITRIC OXIDE SERVICE DATE: 08/27/2024 SERVICE TIME: 9:44 AM Oral Exhaled Nitric Oxide measurement: 33.0 (ppb) Normal: Adult <25 ppb, pediatric (<12 years) <20 ppb High Normal / Increased: Adult 25-50 ppb, pediatric (<12 years) 20-35 ppb Moderately raised exhaled Nitric Oxide may indicate underlying inflammation, but note that: Cold and influenza can raise exhaled Nitric Oxide and some patients have higher baseline exhaled Nitric Oxide levels than others. High: Adult >50 ppb, pediatric (<12 years) >35 ppb Indicative of ongoing eosinophilic inflammation. Symptomatic patient likely to respond to steroids. Possible causes (if already on steroids): Poor compliance, recent allergen exposure, steroid dose inadequate, and steroid resistance. Note that not all patients with high exhaled nitric oxide levels display symptoms. Oral Exhaled Nitric Oxide measurement (Previous Encounters) Test Date Oral Exhaled Nitric Oxide (ppb) 08/27/2024 33.0 NAME: FIONA Ortiz PATIENT NAME: Torrie Martinez DATE: August 27, 2024 TIME: 9:44 AM [facility] SPIROMETRY WITH DILATOR IF O BSTRUCTEDon 08-27-2024 SPIROMETRY WITH DILATOR IF OBSTRUCTED Normal [facility] CBC W Auto Differential pane l (Bld)on 07-18-2024 Basophils (Bld) [#/Vol] 10*3/uL Normal <0.11 C [facility] Comment on above: Order Comment: Michele ash Type: BLOOD SPECIMENOrdering Facility: [facility] Address: [address] [place] [address] Performed By: #### 5 7021-8 ####[facility] LABCLIA [id number] [place] [address] [place] Basophils/100 WBC (Bld) 0.3 % [facility] Comment on above: Order Comment: Michele ash Type: BLOOD SPECIMENOrdering Facility: [facility] Address: [address] [place] [address] Performed By: #### 5 7021-8 ####[facility] LABCLIA [id number] [place] [address] [place] Differential cell count method Nom (Bld) Auto Normal [facility] Comment on above: Order Comment: Speci men Type: BLOOD SPECIMENOrdering Facility: [facility] Address: [address] [place] [address] Performed By: #### 5 7021-8 ####[facility] LABCLIA [id number] [address], [place] [address] [place] Eosinophils (Bld) [#/Vol] 0.26 10*3/uL Normal <0.46 [facility] Comment on above: Order Comment: Speci men Type: BLOOD SPECIMENOrdering Facility: [facility] Address: [address] [place] [address] Performed By: #### 5 7021-8 ####[facility] LABCLIA [id number] [place] [address] [place] Eosinophils/100 WBC (Bld) 3.6 % Normal [facility] Comment on above: Order Comment: Speci men Type: BLOOD SPECIMENOrdering Facility: [facility] Address: [address] [place] [address] Performed By: #### 5 7021-8 ####[facility] LABCLIA [id number] [address], [place] [address] [place] Erythrocyte distribution width (RBC) [Ratio] 18.1 % High 11.5-15.0 [facility] Comment on above: Order Comment: Speci men Type: BLOOD SPECIMENOrdering Facility: [facility] Address: [address] [place] [address] Performed By: #### 5 7021-8 ####[facility] LABCLIA [id number] [place] [address] [place] Hematocrit (Bld) [Volume fraction] 43.8 % Normal 36.0-46.0 [facility] Comment on above: Order Comment: Speci men Type: BLOOD SPECIMENOrdering Facility: [facility] Address: [address] [place] [address] Performed By: #### 5 7021-8 ####[facility] LABCLIA [id number] [place] [address] [place] Hemoglobin (Bld) [Mass/Vol] 11.8 g/dL Normal 11.5-15.5 [facility] Comment on above: Order Comment: Speci men Type: BLOOD SPECIMENOrdering Facility: [facility] Address: [address] [place] [address] Performed By: #### 5 7021-8 ####[facility] LABCLIA [id number] [place] [address] [place] Immature granulocytes (Bld) [#/Vol] 0.04 10*3/uL Normal <0.10 [facility] Comment on above: Order Comment: Speci men Type: BLOOD SPECIMENOrdering Facility: [facility] Address: [address] [place] [address] Performed By: #### 5 7021-8 ####[facility] LABCLIA [id number] [place] [address] [place] Immature granulocytes/100 WBC (Bld) 0.6 % Normal [facility] Comment on above: Order Comment: Speci men Type: BLOOD SPECIMENOrdering Facility: [facility] Address: [address] [place] [address] Performed By: #### 5 7021-8 ####[facility] LABCLIA [id number] [place] [id number] [place] Lymphocytes (Bld) [#/Vol] 2.06 10*3/uL Normal 1.00-4.00 [facility] Comment on above: Order Comment: Speci men Type: BLOOD SPECIMENOrdering Facility: [facility] Address: [address] [place] [address] Performed By: #### 5 7021-8 ####[facility] LABCLIA [id number] [place] [address] [place] Lymphocytes/100 WBC (Bld) 28.6 % Normal [facility] Comment on above: Order Comment: Speci men Type: BLOOD SPECIMENOrdering Facility: [facility] Address: [address] [place] [address] Performed By: #### 5 7021-8 ####[facility] LABCLIA [id number] [place] [address] [place] MCH (RBC) [Entitic mass] 20.6 pg Low 26.0-34.0 [facility] Comment on above: Order Comment: Speci men Type: BLOOD SPECIMENOrdering Facility: [facility] Address: [address] [place] [address] Performed By: #### 5 7021-8 ####[facility] LABIA [id number] [place] [address] [place] MCHC (RBC) [Mass/Vol] 26.9 g/dL Low 30.5-36.0 [facility] Comment on above: Order Comment: Speci men Type: BLOOD SPECIMENOrdering Facility: [facility] Address: [address] [place] [address] Performed By: #### 5 7021-8 ####[facility] LABIA [id number] [place] [address] [place] MCV (RBC) [Entitic vol] 76.6 fL Low 80.0-100.0 [facility] Comment on above: Order Comment: Speci men Type: BLOOD SPECIMENOrdering Facility: [facility] Address: [address] [place] [address] Performed By: #### 5 7021-8 ####[facility] LABCLIA [id number] [place] [address] [place] Monocytes (Bld) [#/Vol] 0.55 10*3/uL Normal <0.87 [facility] Comment on above: Order Comment: Speci men Type: BLOOD SPECIMENOrdering Facility: [facility] Address: [address] [place] [address] Performed By: #### 5 7021-8 ####[facility] LABCLIA [id number] [place] [address] [place] Monocytes/100 WBC (Bld) 7.6 % Normal [facility] Comment on above: Order Comment: Speci men Type: BLOOD SPECIMENOrdering Facility: [facility] Address: [address] [place] [address] Performed By: #### 5 7021-8 ####[facility] LABIA [id number] [place] [address] [place] Neutrophils (Bld) [#/Vol] 4.27 10*3/uL Normal 1.45-7.50 [facility] Comment on above: Order Comment: Speci men Type: BLOOD SPECIMENOrdering Facility: [facility] Address: [address] [place] [address] Performed By: #### 5 7021-8 ####[facility] LABIA [id number] [place] [address] [place] Neutrophils/100 WBC (Bld) 59.3 % Normal [facility] Comment on above: Order Comment: Speci men Type: BLOOD SPECIMENOrdering Facility: [facility] Address: [address] [place] [address] Performed By: #### 5 7021-8 ####[facility] LABIA [id number] [place] [address] [place] Nucleated RBC (Bld) [#/Vol] 10*3/uL Normal <0.01 [facility] Comment on above: Order Comment: Speci men Type: BLOOD SPECIMENOrdering Facility: [facility] Address: [address] [place] [address] Performed By: #### 5 7021-8 ####[facility] LABCLIA [id number] [address] [place] [address] [place] Nucleated RBC/100 WBC (Bld) [Ratio] 0.0 /100 WBC Normal [facility] Comment on above: Order Comment: Speci men Type: BLOOD SPECIMENOrdering Facility: [facility] Address: [address] [place] [address] Performed By: #### 5 7021-8 ####[facility] LABIA [id number] [address], [place] [address] [place] Platelet mean volume (Bld) [Entitic vol] 10.1 fL Normal 9.0-12.7 [facility] Comment on above: Order Comment: Speci men Type: BLOOD SPECIMENOrdering Facility: [facility] Address: [address] [place] [address] Performed By: #### 5 7021-8 ####[facility] LABIA [id number] [place] [address] [place] Platelets (Bld) [#/Vol] 300 10*3/uL Normal 150-400 [facility] Comment on above: Order Comment: Speci men Type: BLOOD SPECIMENOrdering Facility: [facility] Address: [address] [place] [address] Performed By: #### 5 7021-8 ####[facility] LABIA [id number] [place] [address] [place] RBC (Bld) [#/Vol] 5.72 10*6/uL High 3.90-5.20 [facility] Comment on above: Order Comment: Speci men Type: BLOOD SPECIMENOrdering Facility: [facility] Address: [address] [place] [address] Performed By: #### 5 7021-8 ####[facility] LABIA [id number] [address], [facility]95 [place] WBC (Bld) [#/Vol] 7.20 10*3/uL Normal 3.70-11.00 [facility] Comment on above: Order Comment: Speci men Type: BLOOD SPECIMENOrdering Facility: [facility] Address: [address] [place] [address] Performed By: #### 5 7021-8 ####[facility] LABCLIA [id number] [place] [address] [place] CNOVon 07-18-2024 CNOV Normal [facility] CNPNon 07-18-2024 CNPN Normal [facility] Comprehensive metabolic 2000 panelon 07-18-2024 Albumin [Mass/Vol] 4.1 g/dL Normal 3.9-4.9 [facility] Comment on above: Order Comment: Speci men Type: BLOOD SPECIMENOrdering Facility: [facility] Address: [address] [place] [address] Performed By: #### 2 4323-8, 22361-0, LIPNF, 2275-4 ####[facility] LABCLIA [id number] [place] [address] [place] ALP [Catalytic activity/Vol] 85 U/L Normal 34-123 [facility] Comment on above: Order Comment: Speci men Type: BLOOD SPECIMENOrdering Facility: [facility] Address: [address] [place] [address] Performed By: #### 2 4323-8, 30150-1, LIPNF, 6-4 ####[facility] LABCLIA [id number] [place] [address] [place] ALT [Catalytic activity/Vol] 16 U/L Normal 7-38 [facility] Comment on above: Order Comment: Speci men Type: BLOOD SPECIMENOrdering Facility: [facility] Address: [address] [place] [address] Performed By: #### 2 4323-8, 01858-8, LIPNF, 2276-4 ####[facility] LABCLIA [id number] [place] [address] [place] Anion gap [Moles/Vol] 10 mmol/L Normal 8-15 [facility] Comment on above: Order Comment: Speci men Type: BLOOD SPECIMENOrdering Facility: [facility] Address: [address] [place] [address] Performed By: #### 2 4323-8, 26079-6, LIPNF, 6-4 ####[facility] LABCLIA [id number] [place] [address] [place] AST [Catalytic activity/Vol] 18 U/L Normal 13-35 [facility] Comment on above: Order Comment: Speci men Type: BLOOD SPECIMENOrdering Facility: [facility] Address: [address] [place] [address] Performed By: #### 2 4323-8, 75891-0, LIPNF, 2275-4 ####[facility] LABCLIA [id number] [place] [address] [place] Bilirubin [Mass/Vol] 0.2 mg/dL Normal 0.2-1.3 [facility] Comment on above: Order Comment: Speci men Type: BLOOD SPECIMENOrdering Facility: [facility] Address: [address] [place] [address] Performed By: #### 2 4323-8, 73790-5, LIPNF, 2275-4 ####[facility] LABCLIA [id number] [place] [address] [place] Calcium [Mass/Vol] 9.0 mg/dL Normal 8.5-10.2 [facility] Comment on above: Order Comment: Speci men Type: BLOOD SPECIMENOrdering Facility: [facility] Address: [address] [place] [address] Performed By: #### 2 4323-8, 89307-6, LIPNF, 6-4 ####[facility] LABCLIA [id number] [place] [address] [place] Chloride [Moles/Vol] 102 mmol/L Normal 98-107 [facility] Comment on above: Order Comment: Speci men Type: BLOOD SPECIMENOrdering Facility: [facility] Address: [address] [place] [address] Performed By: #### 2 4323-8, 82702-5, LIPNF, 6-4 ####[facility] LABCLIA [id number] [place] [address] [place] CO2 [Moles/Vol] 31 mmol/L High 22-30 [facility] Comment on above: Order Comment: Speci men Type: BLOOD SPECIMENOrdering Facility: [facility] Address: [address] [place] [address] Performed By: #### 2 4323-8, 69076-9, LIPNF, 2275-4 ####[facility] LABCLIA [id number] [place] [address] [place] Creatinine [Mass/Vol] 0.73 mg/dL Normal 0.58-0.96 [facility] Comment on above: Order Comment: Speci men Type: BLOOD SPECIMENOrdering Facility: [facility] Address: [address] [place] [address] Performed By: #### 2 4323-8, 69556-0, LIPNF, 2275-4 ####[facility] LABCLIA [id number] [place] [address] [place] Creatinine and Glomerular filtration rate.predicted panel (S/P/Bld) 112 mL/min/1.73m??? Normal >=60 [facility] Comment on above: Order Comment: Speci men Type: BLOOD SPECIMENOrdering Facility: [facility] Address: [address] [place] [address] Result Comment: Vi mated Glomerular Filtration Rate (eGFR) is calculated using the 2020 CKD-EPI creatinine equation. This equation utilizes serum creatinine, sex, and age as parameters. The creatinine assay has traceable calibration to isotope dilution-mass spectrometry. Refer to KDIGO guidelines for clinical interpretation. In patients with unstable renal function, e.g. those with acute kidney injury, the eGFR may not accurately reflect actual GFR. Performed By: #### 2 4323-8, 94477-5, LIPNF, 2275-4 ####[facility] LABCLIA [id number] [facility] [address] [address] [place] Glucose [Mass/Vol] 86 mg/dL Normal 74-99 [facility] Comment on above: Order Comment: Michele ash Type: BLOOD SPECIMENOrdering Facility: [facility] Address: [address] [place] [address] Result Comment: The [place] Diabetes Association (ADA) provides guidance for cutoff values for fasting glucose and random glucose. The ADA defines fasting as no caloric intake for at least 8 hours. Fasting plasma glucose results between 100 to 125 mg/dL indicate increased risk for diabetes (prediabetes).Fasting plasma glucose results greater than or equal to 126 mg/dL meet the criteria for diagnosis of diabetes. In the absence of unequivocal hyperglycemia, results should be confirmed by repeat testing. In a patient with classic symptoms of hyperglycemia or hyperglycemic crisis, random plasma glucose results greater than or equal to 200 mg/dL meet the criteria for diagnosis of diabetes.Reference: Standards of Medical Care in Diabetes 2016, [place] Diabetes Association. Diabetes Care. 2016.39(Suppl 1). Performed By: #### 2 4323-8, 21910-3, LIPNF, 2275-4 ####[facility] LABCLIA [id number] [facility] [address] [address] [place] Potassium [Moles/Vol] 4.8 mmol/L Normal 3.7-5.1 [facility] Comment on above: Order Comment: Michele ash Type: BLOOD SPECIMENOrdering Facility: [facility] Address: [address] [place] [address] Performed By: #### 2 4323-8, 27888-8, LIPNF, 2275-4 ####[facility] LABCLIA [id number] [facility] [place] [address] [place] Protein [Mass/Vol] 5.9 g/dL Low 6.3-8.0 [facility] Comment on above: Order Comment: Speci men Type: BLOOD SPECIMENOrdering Facility: [facility] Address: [address] [place] [address] Performed By: #### 2 4323-8, 16456-8, LIPNF, 2276-4 ####[facility] LABCLIA [id number] [place] [address] [place] Sodium [Moles/Vol] 143 mmol/L Normal 136-144 [facility] Comment on above: Order Comment: Speci men Type: BLOOD SPECIMENOrdering Facility: [facility] Address: [address] [place] [address] Performed By: #### 2 4323-8, 64063-4, LIPNF, 2276-4 ####[facility] LABCLIA [id number] [place] [address] [place] Urea nitrogen [Mass/Vol] 12 mg/dL Normal 7-21 [facility] Comment on above: Order Comment: Speci men Type: BLOOD SPECIMENOrdering Facility: [facility] Address: [address] [place] [address] Performed By: #### 2 4323-8, 41668-3, LIPNF, 2276-4 ####[facility] LABCLIA [id number] [place] [address] [place] Ferritin SerPl-mCncon 2024 Ferritin [Mass/Vol] 16.5 ng/mL Normal 14.7-205.1 [facility] Comment on above: Order Comment: Speci men Type: BLOOD SPECIMENOrdering Facility: [facility] Address: [address] [place] [address] Performed By: #### 2 4323-8, 44563-5, LIPNF, 2276-4 ####[facility] LABCLIA [id number] [place] [address] [place] HbA1c (Bld)on 07-18-2024 Average glucose Estimated from glycated hemoglobin (Bld) [Mass/Vol] 117 mg/dL Normal [facility] Comment on above: Order Comment: Michele ash Type: BLOOD SPECIMENOrdering Facility: [facility] Address: [address] [place] [address] Result Comment: eAG: (Estimated average glucose) is a calculated value from HgbA1c and is personal banking representative of the average blood glucose level in the last 2-3 month period. Performed By: #### 5 5454-3 ####[facility] LABCLIA [id number] [place] [address] [place] HbA1c (Bld) [Mass fraction] 5.7 % High 4.3-5.6 [facility] Comment on above: Order Comment: Michele ash Type: BLOOD SPECIMENOrdering Facility: [facility] Address: [address] [place] [address] Result Comment: [place] Diabetes Association guidelines indicate that patients with HgbA1c in the range 5.7-6.4% are at increased risk for development of diabetes, and intervention by lifestyle modification may be beneficial. HgbA1c greater or equal to 6.5% is considered diagnostic of diabetes. Performed By: #### 5 5454-3 ####[facility] LABCLIA [id number] [place] [address] [place] Iron and Iron binding capaci ty panelon 07-18-2024 Iron [Mass/Vol] 23 ug/dL Low 41-186 [facility] Comment on above: Order Comment: Michele ash Type: BLOOD SPECIMENOrdering Facility: [facility] Address: [address] [place] [address] Performed By: #### 2 4323-8, 48148-3, LIPNF, 2276-4 ####[facility] LABCLIA [id number] [place] [address] [place] Iron binding capacity [Mass/Vol] 502 ug/dL High 232-386 [facility] Comment on above: Order Comment: Speci men Type: BLOOD SPECIMENOrdering Facility: [facility] Address: [address] [place] [address] Performed By: #### 2 4323-8, 92354-5, LIPNF, 2276-4 ####[facility] LABCLIA [id number] [place] [address] [place] Iron/TIBC [Molar ratio] 4.6 % Low 15.0-57.0 [facility] Comment on above: Order Comment: Speci men Type: BLOOD SPECIMENOrdering Facility: [facility] Address: [address] [place] [address] Performed By: #### 2 4323-8, 35999-0, LIPNF, 2275-4 ####[facility] LABCLIA [id number] [place] [address] [place] LIPID PANEL, NONFASTINGon Cholesterol [Mass/Vol] 158 mg/dL Normal <200 [facility] Comment on above: Order Comment: Speci men Type: BLOOD SPECIMENOrdering Facility: [facility] Address: [address] [place] [address] Result Comment: <200 mg/dL, Desirable 200-239 mg/dL, Borderline high>239 mg/dL, High Performed By: #### 2 4323-8, 53305-6, LIPNF, 6-4 ####[facility] LABCLIA [id number] [place] [address] [place] HDL CHOLESTEROL, NF 38 mg/dL Low >39 [facility] Comment on above: Order Comment: Speci men Type: BLOOD SPECIMENOrdering Facility: [facility] Address: [address] [place] [address] Result Comment: 40-5 9 mg/dL, Acceptable>59 mg/dL, High: Negative risk factor for coronary heart disease<40 mg/dL, Low: Positive risk factor for coronary heart disease Performed By: #### 2 4323-8, 70994-6, LIPNF, 2275-4 ####[facility] LABCLIA [id number] [place] [address] [place] LDL CHOLESTEROL, NF 107 mg/dL High <100 [facility] Comment on above: Order Comment: Speci men Type: BLOOD SPECIMENOrdering Facility: [facility] Address: [address] [place] [address] Result Comment: <100 mg/dL, Optimal 100-129 mg/dL, Near optimal/above optimal 130-159 mg/dL, Borderline high 160-189 mg/dL, High>189 mg/dL, Very highSecondary prevention optimal LDL Cholesterol levels are recommended to be < 70 mg/dL Performed By: #### 2 4323-8, 34760-0, LIPNF, 2275-4 ####[facility] LABCLIA [id number] [address] [place] LDL/HDL RATIO, NF 2.82 mg/dL High <2.54 [facility] Comment on above: Order Comment: Speci men Type: BLOOD SPECIMENOrdering Facility: [facility] Address: [address] [place] [address] Result Comment: Refe rence:1. National Cholesterol Education Program ATP III Guideline At-A-Glance Quick Desk Reference: National Heart, Lung, and Blood [place]. National Institutes of Health. 2001: NIH Publication No. 01-3305.2. An International Atherosclerosis Society position paper: global recommendations for the management of dyslipidemia: executive summary, Atherosclerosis. 2014: 232(2):410-413. Performed By: #### 2 4323-8, 73921-0, LIPNF, 2275-4 ####[facility] LABIA [id number] [place] [address] [place] NON HDL CHOL, NF 120 mg/dL Normal <130 [place] Comment on above: Order Comment: Speci men Type: BLOOD SPECIMENOrdering Facility: [facility] Address: [address] [place] [address] Result Comment: <130 mg/dL, Optimal 130-159 mg/dL, Near optimal/above optimal 160-189 mg/dL, Borderline high 190-219 mg/dL, High>219 mg/dL, Very highSecondary prevention optimal non HDL Cholesterol levels are recommended to be <100 mg/dL Performed By: #### 2 4323-8, 17442-2, LIPNF, 2276-4 ####[facility] LABCLIA [id number] [place] [address] [place] T CHOL/HDL RATIO NF 4.16 mg/dL Normal <5.10 [facility] Comment on above: Order Comment: Speci men Type: BLOOD SPECIMENOrdering Facility: [facility] Address: [address] [place] [address] Performed By: #### 2 4323-8, 92279-0, LIPNF, 6-4 ####[facility] LABCLIA [id number] [place] [address] [facility] [place] TRIGLYCERIDES, NF 67 mg/dL Normal <150 [facility] Comment on above: Order Comment: Speci men Type: BLOOD SPECIMENOrdering Facility: [facility] Address: [address] [place] [address] Result Comment: <150 mg/dL, Normal 150-199 mg/dL, Borderline high 200-499 mg/dL, High>499 mg/dL, Very high Performed By: #### 2 4323-8, 15356-5, LIPNF, 2275-4 ####[facility] LABCLIA [id number] [place] [address] [place] VLDL CHOLESTEROL, NF 13 mg/dL Normal <30 [facility] Comment on above: Order Comment: Speci men Type: BLOOD SPECIMENOrdering Facility: [facility] Address: [address] [place] [address] Performed By: #### 2 4323-8, 41587-4, LIPNF, 6-4 ####[facility] LABCLIA [id number] [place] [id number] [place] Chest PA and Lateralon 05-26 Chest PA and Lateral [facility] [address] [place] [address] Chest PA and Lateral MR#: [id number] Acct: [id number] Name: TORRIE MARTINEZ Rep #: [id number] : 1990 F 34 From: Angelo Freedman MD PCP: Louann Bermeo NP-C Status: REG ER Study: Chest PA and Lateral Date of Exam: 05/26/24 Exam# [id number] Ordering Dr: Onesimo Willson MD [id number] EXAM: XR CHEST, 2 VIEWS CLINICAL INDICATION: cough fever sob asthma TECHNIQUE: Frontal and lateral views of the chest. COMPARISON: 03/13/2018 FINDINGS: LUNGS AND PLEURAL SPACES: Unremarkable. No consolidation or edema. No pneumothorax. No effusion. HEART: Unremarkable. Cardiac silhouette not enlarged. MEDIASTINUM: Central airways and mediastinal contour are unremarkable. BONES/JOINTS: Unremarkable. No acute fracture. SOFT TISSUES: Unremarkable. RAD/Chest PA and Lateral IMPRESSION: No radiographic evidence of acute cardiopulmonary disease. Electronically Signed: Angelo Freedman MD at 20:34 EST , CC: CHILD STUDY TEAM DIRECTOR-C Louann Bermeo; Dr. Onesimo Willson MD [place]: Signed Normal [facility] Emergency Department Summary on 05-26-2024 Emergency Department Summary [facility] Medical Records Department [address] [place] [address] Emergency Department Summary 05/26/24 MR#: [id number] Acct: [id number] Name: TORRIE MARTINEZ Rep #: [id number] : 1990 34 From: Onesimo Willson MD PCP: PARK JonesC Status:REG ER Location: ED HPI History of Present Illness Chief Complaint: Shortness of Breath Informant: patient Narrative Narrative: 34-year-old female states she started getting ill 2 days ago with respiratory symptoms with cough, sputum without blood, runny nose and congestion, fevers, chills, some headaches, and malaise. Fevers up to 103. Treating those with Tylenol but she has a history of asthma and she states she has very small airways and given that even when she is not ill she is on 5 L of oxygen at home 28/11. She states she also has a history of recurrent pneumonia, and because of all of this presents for evaluation. She has been using albuterol treatments at home which have been helping some. Denies any known sick contacts but she has been at her [employer] basketball games in public off-and-on recently. [facility] Medical History (Updated 05/26/24 @ 20:[address] Onesimo Willson MD) Environmental allergies Anemia Depression Asthma Home Medications ???Medication ???Instructions ???Recorded ???Last Taken ???Type albuterol sulfate 90 mcg/actuation 1 - 2 puff inhalation Q4H PRN PRN 10/27/17 Unknown Rx aerosol inhaler Wheezing ##1 montelukast 10 mg tablet 10 mg PO DAILY 03/13/18 Unknown History cephalexin 500 mg capsule 500 mg PO Q6 #40 CAPSULES 02/08/24 Unknown Rx furosemide 20 mg tablet 20 mg PO DAILY 02/08/24 Unknown History prednisone 20 mg tablet 40 mg (2 x 20 mg) PO DAILY #10 tabs 05/26/24 Unknown Rx Allergy/AdvReac Type Severity Reaction Status Date / Time No Known Allergies Allergy Verified 05/26/24 19:46 Surgical History Hx of knee surgery Hx of section Social History Smoking Status: Former smoker ROS ROS ED Constitutional Constitutional ED: Reports chills, fever(s) and malaise ENT ENT ED: Reports nasal congestion and rhinorrhea; Denies ear pain or sore throat Cardiovascular Cardiovascular: Denies chest pain or palpitations Respiratory/Chest Respiratory/Chest: Reports cough, dyspnea and sputum Gastrointestinal Gastrointestinal: Denies abdominal pain, diarrhea, nausea or vomiting Genitourinary Genitourinary ED: Denies dysuria or hematuria Musculoskeletal Musculoskeletal: Denies myalgias or neck pain Integumentary Denies abscess or rash Neurologic Neurologic: Reports headache(s); Denies paresthesias or weakness Psychiatric Psychiatric: Denies depression or suicidal thoughts Endocrine Endocrinology: Denies polydipsia or polyuria EXAM Physical Exam Const Vital Signs: 05/26/24 19:46 05/26/24 19:48 05/26/24 20:09 Temperature 98.6 F 98 F Temperature Source Oral Temporal Pulse Rate 111 H 99 Respiratory Rate 22 H 14 Respiratory Effort Respiratory Depth Respiratory Pattern Blood Pressure 142/92 H 148/89 H Blood Pressure Mean 108 108 Pulse Ox 93 96 91 Oxygen Delivery Method Nasal Cannula Nasal Cannula Nasal Cannula Oxygen Flow Rate (L/min) 5 5 5 Fraction of Inspired Oxygen (FIO2) 05/26/24 20:09 05/26/24 20:10 05/26/24 20:10 Temperature Temperature Source Pulse Rate 100 Respiratory Rate 14 Respiratory Effort Short of Breath Respiratory Depth Shallow Respiratory Pattern Tachypnea Normal Blood Pressure Blood Pressure Mean Pulse Ox 98 Oxygen Delivery Method Nasal Cannula Nasal Cannula Oxygen Flow Rate (L/min) 5 Fraction of Inspired Oxygen (FIO2) 5 05/26/24 20:46 Temperature Temperature Source Pulse Rate 99 Respiratory Rate 18 Respiratory Effort Respiratory Depth Respiratory Pattern Blood Pressure 105/63 Blood Pressure Mean 77 Pulse Ox 96 Oxygen Delivery Method Nasal Cannula Oxygen Flow Rate (L/min) 5 Fraction of Inspired Oxygen (FIO2) Positive well nourished, well developed and obese General Appearance ED: well developed and NAD Nutritional Appearance: obese HEENT Reports moist mucous membranes normocephalic and atraumatic Throat: Negative for posterior oropharynx abnormal Eyes PERRL and EOMs intact bilaterally Neck no lymphadenopathy, supple and no meningeal signs Resp normal respiratory effort Resp Narrative: Obesity limits exam somewhat; few end expiratory wheezes bilaterally without respiratory distress, possibly few rhonchi bibasilar. Cardio no murmurs Cardio Narrative: mild tachycardia Rate: regular rate Rhythm: regular rhythm GI non-tender and non-distended Hector (more content not included)... Normal [facility] Influenza virus A and B and SARS-CoV-2 (COVID-19) and Respiratory syncytial virus RNAOrdered By: Onesimo Willson on 05-26-2024 SARS-CoV-2 (COVID-19) RNA GUNJAN+probe Ql (Unsp spec) Influenzae A Abnormal [facility] M100.678on 05-26-2024 SARS-CoV-2 (COVID-19) Ab IA Ql FLUABV+SARS-CoV-2+RS V Pnl Resp GUNJAN+probe Copy of report sent to Infection Control Printer [id number] 05/26/242049 MLOLLO. FLUABV+SARS-CoV-2+RS V Pnl Resp GUNJAN+probe RESULTS CALLED TO COMPA JAFFE 05/26/242049 Zeinab Gar. REPORT READ BACK BY SAME. SARS-CoV-2 (COVID 19) Negative INFLUENZA A A Positive A INFLUENZA B Negative RSV PCR Negative INFLUENZAE A Normal [facility] Comment on above: Performed By: #### L 100.0100, L500.2500 #### [facility] [address] [place], [address] CNOVon 04-28-2024 CNOV Normal [facility] CNPNon 04-19-2024 CNPN Normal [facility] CNOVon 04-12-2024 CNOV Normal [facility] MYCOon 04-02-2024 Mycoplasma IgG Negative [facility] MAIN Comment on above: Result Comment: INTE RPRETATION OF MYCOPLASMA IgG BY EIA: Negative: No detectable M. pneumoniae IgG antibody. Positive: Mycoplasma pneumoniae IgG antibody Detected. Equivocal: Equivocal for IgG antibodies to Mycoplasma pneumoniae. Suggest repeat testing in 10-14 days. Performed By: #### G FR, MYCO, CBC, ADIFF, ANEU, TROPHS, BMP, MG #### [facility] [address] [place] [phone] .Auto Diffon 04-01-2024 Basophil, Absolute 0.0 10 3/mcL Normal 0.0-0.3 [facility] Comment on above: Performed By: #### G FR, MYCO, CBC, ADIFF, ANEU, TROPHS, BMP, MG #### [facility] [address] [place] [address] Basophils/100 WBC (Bld) 0.1 % Normal 0.0-2.5 [facility] Comment on above: Performed By: #### G FR, MYCO, CBC, ADIFF, ANEU, TROPHS, BMP, MG #### [address] [address] Eosinophil, Absolute 0.0 10 3/mcL Normal 0.0-0.7 [facility] Comment on above: Performed By: #### G FR, MYCO, CBC, ADIFF, ANEU, TROPHS, BMP, MG #### [address] [address] Eosinophils/100 WBC (Bld) 0.2 % Normal 0.0-6.0 [facility] Comment on above: Performed By: #### G FR, MYCO, CBC, ADIFF, ANEU, TROPHS, BMP, MG #### [address] [address] Lymphocyte, Absolute 2.2 10 3/mcL Normal 0.9-4.3 [facility] Comment on above: Performed By: #### G FR, MYCO, CBC, ADIFF, ANEU, TROPHS, BMP, MG #### [address] [address] Lymphocytes/100 WBC (Bld) 19.0 % Low 20.0-40.0 [facility] Comment on above: Performed By: #### G FR, MYCO, CBC, ADIFF, ANEU, TROPHS, BMP, MG #### [address] [address] Monocyte, Absolute 1.1 10 3/mcL Normal 0.1-1.4 [facility] Comment on above: Performed By: #### G FR, MYCO, CBC, ADIFF, ANEU, TROPHS, BMP, MG #### [address] [address] Monocytes/100 WBC (Bld) 9.5 % Normal 2.0-13.0 [facility] Comment on above: Performed By: #### G FR, MYCO, CBC, ADIFF, ANEU, TROPHS, BMP, MG #### [address] [address] Neutrophils/100 WBC (Bld) 71.2 % Normal 50.0-75.0 [facility] Comment on above: Performed By: #### G FR, MYCO, CBC, ADIFF, ANEU, TROPHS, BMP, MG #### [address] [address] .GFRon 04-01-2024 GFR Non- >60 Normal [facility] Comment on above: Result Comment: GFR Population mean for , Non- Americans Ages 20-29 = 116 mL/min/1.73 sq.m. Ages 30-39 = 107 mL/min/1.73 sq.m. Ages 40-49 = 99 mL/min/1.73 sq.m. Ages 50-59 = 93 mL/min/1.73 sq.m. Ages 60-69 = 85 mL/min/1.73 sq.m. Ages 70+ = 75 mL/min/1.73 sq.m. Chronic Kidney Disease: Less than 60 mL/min/1.73 square meters End Stage Renal Disease: Less than 15 mL/min/1.73 square meters Performed By: #### G FR, MYCO, CBC, ADIFF, ANEU, TROPHS, BMP, MG #### [address] [address] GFR >60 [facility]IN Comment on above: Result Comment: GFR Population mean for , Non- Americans Ages 20-29 = 116 mL/min/1.73 sq.m. Ages 30-39 = 107 mL/min/1.73 sq.m. Ages 40-49 = 99 mL/min/1.73 sq.m. Ages 50-59 = 93 mL/min/1.73 sq.m. Ages 60-69 = 85 mL/min/1.73 sq.m. Ages 70+ = 75 mL/min/1.73 sq.m. Chronic Kidney Disease: Less than 60 mL/min/1.73 square meters End Stage Renal Disease: Less than 15 mL/min/1.73 square meters Performed By: #### G FR, MYCO, CBC, ADIFF, ANEU, TROPHS, BMP, MG #### [address] [address] .NEUABSon 04-01-2024 Neutrophil, Absolute 8.3 10 3/mcL High 2.3-8.1 [facility] Comment on above: Performed By: #### G FR, MYCO, CBC, ADIFF, ANEU, TROPHS, BMP, MG #### [address] [address] [facility] BUN/Creatinine Ratio 26.8 ratio High 10.0-22.0 [facility] Comment on above: Performed By: #### G FR, MYCO, CBC, ADIFF, ANEU, TROPHS, BMP, MG #### [address] [address] Calcium [Mass/Vol] 9.2 mg/dL Normal 8.7-10.4 [facility] Comment on above: Performed By: #### G FR, MYCO, CBC, ADIFF, ANEU, TROPHS, BMP, MG #### [address] [address] Chloride [Moles/Vol] 94 mmol/L Low 98-110 [facility] Comment on above: Performed By: #### G FR, MYCO, CBC, ADIFF, ANEU, TROPHS, BMP, MG #### [address] [address] CO2 [Moles/Vol] 38 mmol/L High 22-32 [facility] Comment on above: Performed By: #### G FR, MYCO, CBC, ADIFF, ANEU, TROPHS, BMP, MG #### [address] [address] Creatinine [Mass/Vol] 0.82 mg/dL Normal 0.50-1.20 [facility] Comment on above: Result Comment: Test ing performed on Outsell analyzer using enzymatic creatinine methodology. Performed By: #### G FR, MYCO, CBC, ADIFF, ANEU, TROPHS, BMP, MG #### [address] [address] Electrolyte Balance 9.0 mEq/L Normal 4.0-15.0 [facility] Comment on above: Performed By: #### G FR, MYCO, CBC, ADIFF, ANEU, TROPHS, BMP, MG #### [address] [address] Glucose [Mass/Vol] 77 mg/dL Normal 70-110 [facility] Comment on above: Performed By: #### G FR, MYCO, CBC, ADIFF, ANEU, TROPHS, BMP, MG #### [place] [address] Potassium [Moles/Vol] 3.4 mmol/L Low 3.5-5.0 [facility] Comment on above: Performed By: #### G FR, MYCO, CBC, ADIFF, ANEU, TROPHS, BMP, MG #### [place] [address] Sodium [Moles/Vol] 141 mmol/L Normal 136-145 [facility] Comment on above: Performed By: #### G FR, MYCO, CBC, ADIFF, ANEU, TROPHS, BMP, MG #### [place] [address] Urea nitrogen [Mass/Vol] 22.0 mg/dL Normal 8.0-22.0 [facility] Comment on above: Performed By: #### G FR, MYCO, CBC, ADIFF, ANEU, TROPHS, BMP, MG #### [place] [id number] CBCon 04-01-2024 Erythrocyte distribution width (RBC) [Ratio] 18.2 % High 11.5-15.5 [facility] Comment on above: Performed By: #### G FR, MYCO, CBC, ADIFF, ANEU, TROPHS, BMP, MG #### [place] [address] Hematocrit (Bld) [Volume fraction] 42.7 % Normal 34.0-46.0 [facility] Comment on above: Performed By: #### G FR, MYCO, CBC, ADIFF, ANEU, TROPHS, BMP, MG #### [place] [id number] Hgb 12.9 G/dL Normal 12.0-16.0 [facility] Comment on above: Performed By: #### G FR, MYCO, CBC, ADIFF, ANEU, TROPHS, BMP, MG #### [place] [address] MCH (RBC) [Entitic mass] 20.8 pg Low 27.0-33.0 [facility] Comment on above: Performed By: #### G FR, MYCO, CBC, ADIFF, ANEU, TROPHS, BMP, MG #### [place] [address] MCHC 30.3 G/dL Low 32.0-36.0 [facility] Comment on above: Performed By: #### G FR, MYCO, CBC, ADIFF, ANEU, TROPHS, BMP, MG #### [place] [address] MCV (RBC) [Entitic vol] 68.8 fL Low 80.0-99.0 [facility] Comment on above: Performed By: #### G FR, MYCO, CBC, ADIFF, ANEU, TROPHS, BMP, MG #### [place] [address] Platelet 314 10 3/mcL Normal 150-450 [facility] Comment on above: Performed By: #### G FR, MYCO, CBC, ADIFF, ANEU, TROPHS, BMP, MG #### [place] [address] Platelet mean volume (Bld) [Entitic vol] 7.8 fL Normal 6.6-10.5 [facility] Comment on above: Performed By: #### G FR, MYCO, CBC, ADIFF, ANEU, TROPHS, BMP, MG #### [place] [address] RBC 6.21 10 6/mcL High 4.10-5.30 [facility] Comment on above: Performed By: #### G FR, MYCO, CBC, ADIFF, ANEU, TROPHS, BMP, MG #### [place] [address] WBC 11.6 10 3/mcL High 4.5-10.8 [facility] Comment on above: Performed By: #### G FR, MYCO, CBC, ADIFF, ANEU, TROPHS, BMP, MG #### [place] [address] LABORATORYOrdered By: SYSTEM SYSTEM on 04-01-2024 Basophils (Bld) [#/Vol] 0.0 103/mcL Normal 0.0 - 0.3 10^3/mcL AH Workflow SS Basophils/100 WBC (Bld) 0.1 % Normal 0.0 - 2.5 % AH Workflow SS Calcium [Mass/Vol] 9.2 mg/dL Normal 8.7 - 10. 4 mg/dL AH ADM SS Chloride [Moles/Vol] 94 mmol/L Low 98 - 11 0 mEq/L ADM SS CO2 [Moles/Vol] 38 mmol/L High 22 - 32 mEq/L AH ADM SS Creatinine [Mass/Vol] 0.82 mg/dL Normal 0.50 - 1.20 mg/dL AH ADM SS Comment on above: Interpretive Data: T esting performed on Outsell analyzer using enzymatic creatinine methodology. Electrolyte Balance 9.0 mEq/L Normal 4.0 - 15 .0 mEq/L ADM SS Eosinophils (Bld) [#/Vol] 0.0 103/mcL Normal 0.0 - 0.7 10^3/mcL AH Workflow SS Eosinophils/100 WBC (Bld) 0.2 % Normal 0.0 - 6.0 % AH Workflow SS Erythrocyte distribution width (RBC) [Ratio] 18.2 % High 11.5 - 15.5 % AH Workflow SS GFR/1.73 sq M.predicted among blacks MDRD (S/P/Bld) [Vol rate/Area] ml/min/1.73sqm Invalid Interpretation Code Chemistry S Comment on above: Interpretive Data: GFR Population mean for , Non- Americans Ages 20-29 = 116 mL/min/1.73 sq.m. Ages 30-39 = 107 mL/min/1.73 sq.m. Ages 40-49 = 99 mL/min/1.73 sq.m. Ages 50-59 = 93 mL/min/1.73 sq.m. Ages 60-69 = 85 mL/min/1.73 sq.m. Ages 70+ = 75 mL/min/1.73 sq.m. Chronic Kidney Disease: Less than 60 mL/min/1.73 square meters End Stage Renal Disease: Less than 15 mL/min/1.73 square meters GFR/1.73 sq M.predicted among non-blacks MDRD (S/P/Bld) [Vol rate/Area] ml/min/1.73sqm Invalid Interpretation Code Chemistry S Comment on above: Interpretive Data: GFR Population mean for , Non- Americans Ages 20-29 = 116 mL/min/1.73 sq.m. Ages 30-39 = 107 mL/min/1.73 sq.m. Ages 40-49 = 99 mL/min/1.73 sq.m. Ages 50-59 = 93 mL/min/1.73 sq.m. Ages 60-69 = 85 mL/min/1.73 sq.m. Ages 70+ = 75 mL/min/1.73 sq.m. Chronic Kidney Disease: Less than 60 mL/min/1.73 square meters End Stage Renal Disease: Less than 15 mL/min/1.73 square meters Glucose [Mass/Vol] 77 mg/dL Normal 70 - 110 mg/dL ADM SS Hematocrit (Bld) [Volume fraction] 42.7 % Normal 34.0 - 46.0 % AH Workflow SS Hemoglobin (Bld) [Mass/Vol] 12.9 G/dL Normal 12.0 - 16.0 G/dL AH Workflow SS Lymphocytes (Bld) [#/Vol] 2.2 103/mcL Normal 0.9 - 4.3 10^3/mcL AH Workflow SS Lymphocytes/100 WBC (Bld) 19.0 % Low 20.0 - 40.0 % AH Workflow SS Magnesium [Mass/Vol] 2.2 mg/dL Normal 1.6 - 2 .4 mg/dL ADM SS MCH (RBC) [Entitic mass] 20.8 pg Low 27.0 - 33.0 pg AH Workflow SS MCHC 30.3 G/dL Low 32.0 - 36.0 G/dL AH Workflow SS MCV (RBC) [Entitic vol] 68.8 fL Low 80.0 - 99.0 fL Workflow SS Monocytes (Bld) [#/Vol] 1.1 103/mcL Normal 0.1 - 1.4 10^3/mcL AH Workflow SS Monocytes/100 WBC (Bld) 9.5 % Normal 2.0 - 13.0 % AH Workflow SS Neutrophils (Bld) [#/Vol] 8.3 103/mcL High 2.3 - 8.1 10^3/mcL Workflow SS Neutrophils/100 WBC (Bld) 71.2 % Normal 50.0 - 75.0 % Workflow SS Platelet mean volume (Bld) [Entitic vol] 7.8 fL Normal 6.6 - 10.5 fL Workflow SS Platelets (Bld) [#/Vol] 314 103/mcL Normal 150 - 450 10^3/mcL AH Workflow SS Potassium [Moles/Vol] 3.4 mmol/L Low 3.5 - 5.0 mEq/L ADM SS RBC (Bld) [#/Vol] 6.21 106/mcL High 4.10 - 5.3 0 10^6/mcL Workflow SS Sodium [Moles/Vol] 141 mmol/L Normal 136 - 145 mEq/L ADM SS Urea nitrogen [Mass/Vol] 22.0 mg/dL Normal 8.0 - 22.0 mg/dL ADM SS Urea nitrogen/Creatinine [Mass ratio] 26.8 ratio High 10.0 - 22.0 ratio ADM SS WBC (Bld) [#/Vol] 11.6 103/mcL High 4.5 - 10.8 10^3/mcL Workflow SS MGon 04-01-2024 Magnesium [Mass/Vol] 2.2 mg/dL Normal 1.6-2.4 [facility] Comment on above: Performed By: #### G FR, MYCO, CBC, ADIFF, ANEU, TROPHS, BMP, MG #### [address] [address] .Auto Diffon 03-31-2024 Basophil, Absolute 0.0 10 3/mcL Normal 0.0-0.3 [facility] Comment on above: Performed By: #### G FR, MYCO, CBC, ADIFF, ANEU, TROPHS, BMP, MG #### [address] [address] Basophils/100 WBC (Bld) 0.1 % Normal 0.0-2.5 [facility] Comment on above: Performed By: #### G FR, MYCO, CBC, ADIFF, ANEU, TROPHS, BMP, MG #### [address] [address] Eosinophil, Absolute 0.0 10 3/mcL Normal 0.0-0.7 [facility] Comment on above: Performed By: #### G FR, MYCO, CBC, ADIFF, ANEU, TROPHS, BMP, MG #### [address] [address] Eosinophils/100 WBC (Bld) 0.0 % Normal 0.0-6.0 [facility] Comment on above: Performed By: #### G FR, MYCO, CBC, ADIFF, ANEU, TROPHS, BMP, MG #### [address] [address] Lymphocyte, Absolute 2.1 10 3/mcL Normal 0.9-4.3 [facility] Comment on above: Performed By: #### G FR, MYCO, CBC, ADIFF, ANEU, TROPHS, BMP, MG #### [address] [address] Lymphocytes/100 WBC (Bld) 12.1 % Low 20.0-40.0 [facility] Comment on above: Performed By: #### G FR, MYCO, CBC, ADIFF, ANEU, TROPHS, BMP, MG #### [address] [address] Monocyte, Absolute 1.1 10 3/mcL Normal 0.1-1.4 [facility] Comment on above: Performed By: #### G FR, MYCO, CBC, ADIFF, ANEU, TROPHS, BMP, MG #### [address] [address] Monocytes/100 WBC (Bld) 6.6 % Normal 2.0-13.0 [facility] Comment on above: Performed By: #### G FR, MYCO, CBC, ADIFF, ANEU, TROPHS, BMP, MG #### [address] [address] Neutrophils/100 WBC (Bld) 81.2 % High 50.0-75.0 [facility] Comment on above: Performed By: #### G FR, MYCO, CBC, ADIFF, ANEU, TROPHS, BMP, MG #### [address] [address] .GFRon 03-31-2024 GFR >60 [facility]IN Comment on above: Result Comment: GFR Population mean for , Non- Americans Ages 20-29 = 116 mL/min/1.73 sq.m. Ages 30-39 = 107 mL/min/1.73 sq.m. Ages 40-49 = 99 mL/min/1.73 sq.m. Ages 50-59 = 93 mL/min/1.73 sq.m. Ages 60-69 = 85 mL/min/1.73 sq.m. Ages 70+ = 75 mL/min/1.73 sq.m. Chronic Kidney Disease: Less than 60 mL/min/1.73 square meters End Stage Renal Disease: Less than 15 mL/min/1.73 square meters Performed By: #### G FR, MYCO, CBC, ADIFF, ANEU, TROPHS, BMP, MG #### [place] [address] GFR Non- >60 [facility] MAIN Comment on above: Result Comment: GFR Population mean for , Non- Americans Ages 20-29 = 116 mL/min/1.73 sq.m. Ages 30-39 = 107 mL/min/1.73 sq.m. Ages 40-49 = 99 mL/min/1.73 sq.m. Ages 50-59 = 93 mL/min/1.73 sq.m. Ages 60-69 = 85 mL/min/1.73 sq.m. Ages 70+ = 75 mL/min/1.73 sq.m. Chronic Kidney Disease: Less than 60 mL/min/1.73 square meters End Stage Renal Disease: Less than 15 mL/min/1.73 square meters Performed By: #### G FR, MYCO, CBC, ADIFF, ANEU, TROPHS, BMP, MG #### [place] [address] GFR >60 [facility]IN Comment on above: Result Comment: GFR Population mean for , Non- Americans Ages 20-29 = 116 mL/min/1.73 sq.m. Ages 30-39 = 107 mL/min/1.73 sq.m. Ages 40-49 = 99 mL/min/1.73 sq.m. Ages 50-59 = 93 mL/min/1.73 sq.m. Ages 60-69 = 85 mL/min/1.73 sq.m. Ages 70+ = 75 mL/min/1.73 sq.m. Chronic Kidney Disease: Less than 60 mL/min/1.73 square meters End Stage Renal Disease: Less than 15 mL/min/1.73 square meters Performed By: #### G FR, MYCO, CBC, ADIFF, ANEU, TROPHS, BMP, MG #### [address] [address] GFR Non- >60 [facility] MAIN Comment on above: Result Comment: GFR Population mean for , Non- Americans Ages 20-29 = 116 mL/min/1.73 sq.m. Ages 30-39 = 107 mL/min/1.73 sq.m. Ages 40-49 = 99 mL/min/1.73 sq.m. Ages 50-59 = 93 mL/min/1.73 sq.m. Ages 60-69 = 85 mL/min/1.73 sq.m. Ages 70+ = 75 mL/min/1.73 sq.m. Chronic Kidney Disease: Less than 60 mL/min/1.73 square meters End Stage Renal Disease: Less than 15 mL/min/1.73 square meters Performed By: #### G FR, MYCO, CBC, ADIFF, ANEU, TROPHS, BMP, MG #### [address] [address] .Morphon 03-31-2024 Anisocytosis Ql (Bld) 1+ Normal [facility] Comment on above: Performed By: #### G FR, MYCO, CBC, ADIFF, ANEU, TROPHS, BMP, MG #### [address] [address] Microcytosis 2+ Normal [facility] Comment on above: Performed By: #### G FR, MYCO, CBC, ADIFF, ANEU, TROPHS, BMP, MG #### [address] [address] Ovalocytes 1+ Normal [facility] Comment on above: Performed By: #### G FR, MYCO, CBC, ADIFF, ANEU, TROPHS, BMP, MG #### [place] [id number] Platelet Estimate Normal Normal [facility] Comment on above: Performed By: #### G FR, MYCO, CBC, ADIFF, ANEU, TROPHS, BMP, MG #### [place] [address] Poik 1+ Normal [facility] Comment on above: Performed By: #### G FR, MYCO, CBC, ADIFF, ANEU, TROPHS, BMP, MG #### [place] [address] Polychrom 1+ Normal [facility] Comment on above: Performed By: #### G FR, MYCO, CBC, ADIFF, ANEU, TROPHS, BMP, MG #### [place] [address] .NEUABSon 03-31-2024 Neutrophil, Absolute 14.2 10 3/mcL High 2.3-8.1 [facility] Comment on above: Performed By: #### G FR, MYCO, CBC, ADIFF, ANEU, TROPHS, BMP, MG #### [place] [address] BMPon 03-31-2024 BUN/Creatinine Ratio 22.9 ratio High 10.0-22.0 [facility] Comment on above: Performed By: #### G FR, MYCO, CBC, ADIFF, ANEU, TROPHS, BMP, MG #### [place] [address] Calcium [Mass/Vol] 9.2 mg/dL Normal 8.7-10.4 [facility] Comment on above: Performed By: #### G FR, MYCO, CBC, ADIFF, ANEU, TROPHS, BMP, MG #### [place] [address] [place] [address] Chloride [Moles/Vol] 93 mmol/L Low 98-110 [facility] Comment on above: Performed By: #### G FR, MYCO, CBC, ADIFF, ANEU, TROPHS, BMP, MG #### [address] [address] CO2 [Moles/Vol] 39 mmol/L High 22-32 [facility] Comment on above: Performed By: #### G FR, MYCO, CBC, ADIFF, ANEU, TROPHS, BMP, MG #### [address] [address] Creatinine [Mass/Vol] 0.83 mg/dL Normal 0.50-1.20 [facility] Comment on above: Result Comment: Test ing performed on Outsell analyzer using enzymatic creatinine methodology. Performed By: #### G FR, MYCO, CBC, ADIFF, ANEU, TROPHS, BMP, MG #### [address] [address] Electrolyte Balance 6.0 mEq/L Normal 4.0-15.0 [facility] Comment on above: Performed By: #### G FR, MYCO, CBC, ADIFF, ANEU, TROPHS, BMP, MG #### [address] [address] Glucose [Mass/Vol] 148 mg/dL High 70-110 [facility] Comment on above: Performed By: #### G FR, MYCO, CBC, ADIFF, ANEU, TROPHS, BMP, MG #### [address] [address] Potassium [Moles/Vol] 3.8 mmol/L Normal 3.5-5.0 [facility] Comment on above: Performed By: #### G FR, MYCO, CBC, ADIFF, ANEU, TROPHS, BMP, MG #### [address] [address] Sodium [Moles/Vol] 138 mmol/L Normal 136-145 [facility] Comment on above: Performed By: #### G FR, MYCO, CBC, ADIFF, ANEU, TROPHS, BMP, MG #### [address] [address] Urea nitrogen [Mass/Vol] 19.0 mg/dL Normal 8.0-22.0 [facility] Comment on above: Performed By: #### G FR, MYCO, CBC, ADIFF, ANEU, TROPHS, BMP, MG #### [address] [address] CO2 [Moles/Vol] mmol/L Critically abnormal 22-32 [facility] Comment on above: Performed By: #### G FR, MYCO, CBC, ADIFF, ANEU, TROPHS, BMP, MG #### [address] [address] Electrolyte Balance Unable to Calculate Normal 4.0-15. 0 [facility] Comment on above: Result Comment: Unab le to calculate this test result accurately. Results used to calculate this test are outside the reportable range. Performed By: #### G FR, MYCO, CBC, ADIFF, ANEU, TROPHS, BMP, MG #### [place] [id number] BUN/Creatinine Ratio 23.0 ratio High 10.0-22.0 [facility] Comment on above: Performed By: #### G FR, MYCO, CBC, ADIFF, ANEU, TROPHS, BMP, MG #### [address] [address] Calcium [Mass/Vol] 9.2 mg/dL Normal 8.7-10.4 [facility] Comment on above: Performed By: #### G FR, MYCO, CBC, ADIFF, ANEU, TROPHS, BMP, MG #### [address] [address] Chloride [Moles/Vol] 93 mmol/L Low 98-110 [facility] Comment on above: Performed By: #### G FR, MYCO, CBC, ADIFF, ANEU, TROPHS, BMP, MG #### [address] [address] Creatinine [Mass/Vol] 0.74 mg/dL Normal 0.50-1.20 [facility] Comment on above: Result Comment: Test ing performed on Outsell analyzer using enzymatic creatinine methodology. Performed By: #### G FR, MYCO, CBC, ADIFF, ANEU, TROPHS, BMP, MG #### [place] [address] Glucose [Mass/Vol] 109 mg/dL Normal 70-110 [facility] Comment on above: Performed By: #### G FR, MYCO, CBC, ADIFF, ANEU, TROPHS, BMP, MG #### [place] [id number] Potassium [Moles/Vol] 3.8 mmol/L Normal 3.5-5.0 [facility] Comment on above: Performed By: #### G FR, MYCO, CBC, ADIFF, ANEU, TROPHS, BMP, MG #### [place] [address] Sodium [Moles/Vol] 140 mmol/L Normal 136-145 [facility] Comment on above: Performed By: #### G FR, MYCO, CBC, ADIFF, ANEU, TROPHS, BMP, MG #### [place] [address] Urea nitrogen [Mass/Vol] 17.0 mg/dL Normal 8.0-22.0 [facility] Comment on above: Performed By: #### G FR, MYCO, CBC, ADIFF, ANEU, TROPHS, BMP, MG #### [place] [address] CBCon 03-31-2024 Erythrocyte distribution width (RBC) [Ratio] 18.3 % High 11.5-15.5 [facility] Comment on above: Performed By: #### C BC, MG, GFR, BMP, MORPH, ADIFF, ANEU #### [place] [address] Hematocrit (Bld) [Volume fraction] 42.2 % Normal 34.0-46.0 [facility] Comment on above: Performed By: #### C BC, MG, GFR, BMP, MORPH, ADIFF, ANEU #### [place] [address] Hgb 12.7 G/dL Normal 12.0-16.0 [facility] Comment on above: Performed By: #### C BC, MG, GFR, BMP, MORPH, ADIFF, ANEU #### [place] [address] MCH (RBC) [Entitic mass] 20.7 pg Low 27.0-33.0 [facility] Comment on above: Performed By: #### C BC, MG, GFR, BMP, MORPH, ADIFF, ANEU #### [place] [address] MCHC 30.1 G/dL Low 32.0-36.0 [facility] Comment on above: Performed By: #### C BC, MG, GFR, BMP, MORPH, ADIFF, ANEU #### [place] [address] MCV (RBC) [Entitic vol] 68.8 fL Low 80.0-99.0 [facility] Comment on above: Performed By: #### C BC, MG, GFR, BMP, MORPH, ADIFF, ANEU #### [place] [address] Platelet 306 10 3/mcL Normal 150-450 [facility] Comment on above: Performed By: #### C BC, MG, GFR, BMP, MORPH, ADIFF, ANEU #### [place] [address] Platelet mean volume (Bld) [Entitic vol] 8.0 fL Normal 6.6-10.5 [facility] Comment on above: Performed By: #### C BC, MG, GFR, BMP, MORPH, ADIFF, ANEU #### [place] [address] RBC 6.12 10 6/mcL High 4.10-5.30 [facility] Comment on above: Performed By: #### C BC, MG, GFR, BMP, MORPH, ADIFF, ANEU #### [place] [address] WBC 17.5 10 3/mcL High 4.5-10.8 [facility] Comment on above: Performed By: #### C BC, MG, GFR, BMP, MORPH, ADIFF, ANEU #### [place] [address] [place] [address] LABORATORYOrdered By: SYSTEM SYSTEM on 03-31-2024 Calcium [Mass/Vol] 9.2 mg/dL Normal 8.7 - 10. 4 mg/dL AH ADM SS Chloride [Moles/Vol] 93 mmol/L Low 98 - 11 0 mEq/L AH ADM SS CO2 [Moles/Vol] 39 mmol/L High 22 - 32 mEq/L AH ADM SS Creatinine [Mass/Vol] 0.83 mg/dL Normal 0.50 - 1.20 mg/dL AH ADM SS Comment on above: Interpretive Data: T esting performed on Outsell analyzer using enzymatic creatinine methodology. Electrolyte Balance 6.0 mEq/L Normal 4.0 - 15 .0 mEq/L AH ADM SS GFR/1.73 sq M.predicted among blacks MDRD (S/P/Bld) [Vol rate/Area] ml/min/1.73sqm Invalid Interpretation Code [employer] Chemistry S Comment on above: Interpretive Data: GFR Population mean for , Non- Americans Ages 20-29 = 116 mL/min/1.73 sq.m. Ages 30-39 = 107 mL/min/1.73 sq.m. Ages 40-49 = 99 mL/min/1.73 sq.m. Ages 50-59 = 93 mL/min/1.73 sq.m. Ages 60-69 = 85 mL/min/1.73 sq.m. Ages 70+ = 75 mL/min/1.73 sq.m. Chronic Kidney Disease: Less than 60 mL/min/1.73 square meters End Stage Renal Disease: Less than 15 mL/min/1.73 square meters GFR/1.73 sq M.predicted among non-blacks MDRD (S/P/Bld) [Vol rate/Area] ml/min/1.73sqm Invalid Interpretation Code [employer] Chemistry S Comment on above: Interpretive Data: GFR Population mean for , Non- Americans Ages 20-29 = 116 mL/min/1.73 sq.m. Ages 30-39 = 107 mL/min/1.73 sq.m. Ages 40-49 = 99 mL/min/1.73 sq.m. Ages 50-59 = 93 mL/min/1.73 sq.m. Ages 60-69 = 85 mL/min/1.73 sq.m. Ages 70+ = 75 mL/min/1.73 sq.m. Chronic Kidney Disease: Less than 60 mL/min/1.73 square meters End Stage Renal Disease: Less than 15 mL/min/1.73 square meters Glucose [Mass/Vol] 148 mg/dL High 70 - 110 mg/dL ADM SS Potassium [Moles/Vol] 3.8 mmol/L Normal 3.5 - 5.0 mEq/L ADM SS Sodium [Moles/Vol] 138 mmol/L Normal 136 - 145 mEq/L ADM SS Urea nitrogen [Mass/Vol] 19.0 mg/dL Normal 8.0 - 22.0 mg/dL ADM SS Urea nitrogen/Creatinine [Mass ratio] 22.9 ratio High 10.0 - 22.0 ratio ADM SS Anisocytosis Ql (Bld) 1+ *NA* (03/31/24 3:51 AM) Invalid Interpretation Code Workflow SS Basophils (Bld) [#/Vol] 0.0 103/mcL Normal 0.0 - 0.3 10^3/mcL Workflow SS Basophils/100 WBC (Bld) 0.1 % Normal 0.0 - 2.5 % Workflow SS Calcium [Mass/Vol] 9.2 mg/dL Normal 8.7 - 10. 4 mg/dL ADM SS Chloride [Moles/Vol] 93 mmol/L Low 98 - 11 0 mEq/L ADM SS Creatinine [Mass/Vol] 0.74 mg/dL Normal 0.50 - 1.20 mg/dL ADM SS Comment on above: Interpretive Data: T esting performed on Outsell analyzer using enzymatic creatinine methodology. Eosinophils (Bld) [#/Vol] 0.0 103/mcL Normal 0.0 - 0.7 10^3/mcL Workflow SS Eosinophils/100 WBC (Bld) 0.0 % Normal 0.0 - 6.0 % Workflow SS Erythrocyte distribution width (RBC) [Ratio] 18.3 % High 11.5 - 15.5 % Workflow SS GFR/1.73 sq M.predicted among blacks MDRD (S/P/Bld) [Vol rate/Area] ml/min/1.73sqm Invalid Interpretation Code Chemistry S Comment on above: Interpretive Data: GFR Population mean for , Non- Americans Ages 20-29 = 116 mL/min/1.73 sq.m. Ages 30-39 = 107 mL/min/1.73 sq.m. Ages 40-49 = 99 mL/min/1.73 sq.m. Ages 50-59 = 93 mL/min/1.73 sq.m. Ages 60-69 = 85 mL/min/1.73 sq.m. Ages 70+ = 75 mL/min/1.73 sq.m. Chronic Kidney Disease: Less than 60 mL/min/1.73 square meters End Stage Renal Disease: Less than 15 mL/min/1.73 square meters GFR/1.73 sq M.predicted among non-blacks MDRD (S/P/Bld) [Vol rate/Area] ml/min/1.73sqm Invalid Interpretation Code Chemistry S Comment on above: Interpretive Data: GFR Population mean for , Non- Americans Ages 20-29 = 116 mL/min/1.73 sq.m. Ages 30-39 = 107 mL/min/1.73 sq.m. Ages 40-49 = 99 mL/min/1.73 sq.m. Ages 50-59 = 93 mL/min/1.73 sq.m. Ages 60-69 = 85 mL/min/1.73 sq.m. Ages 70+ = 75 mL/min/1.73 sq.m. Chronic Kidney Disease: Less than 60 mL/min/1.73 square meters End Stage Renal Disease: Less than 15 mL/min/1.73 square meters Glucose [Mass/Vol] 109 mg/dL Normal 70 - 110 mg/dL ADM SS Hematocrit (Bld) [Volume fraction] 42.2 % Normal 34.0 - 46.0 % Workflow SS Hemoglobin (Bld) [Mass/Vol] 12.7 G/dL Normal 12.0 - 16.0 G/dL AH Workflow SS Lymphocytes (Bld) [#/Vol] 2.1 103/mcL Normal 0.9 - 4.3 10^3/mcL Workflow SS Lymphocytes/100 WBC (Bld) 12.1 % Low 20.0 - 40.0 % AH Workflow SS Magnesium [Mass/Vol] 1.8 mg/dL Normal 1.6 - 2 .4 mg/dL ADM SS MCH (RBC) [Entitic mass] 20.7 pg Low 27.0 - 33.0 pg AH Workflow SS MCHC 30.1 G/dL Low 32.0 - 36.0 G/dL AH Workflow SS MCV (RBC) [Entitic vol] 68.8 fL Low 80.0 - 99.0 fL AH Workflow SS Microcytes Ql (Bld) 2+ *NA* (03/31/24 3:51 AM) Invalid Interpretation Code AH Workflow SS Monocytes (Bld) [#/Vol] 1.1 103/mcL Normal 0.1 - 1.4 10^3/mcL AH Workflow SS Monocytes/100 WBC (Bld) 6.6 % Normal 2.0 - 13.0 % AH Workflow SS Neutrophils (Bld) [#/Vol] 14.2 103/mcL High 2.3 - 8.1 10^3/mcL AH Workflow SS Neutrophils/100 WBC (Bld) 81.2 % High 50.0 - 75.0 % AH Workflow SS Ovalocytes LM Ql (Bld) 1+ *NA* (03/31/24 3:51 AM) Invalid Interpretation Code AH Workflow SS Platelet mean volume (Bld) [Entitic vol] 8.0 fL Normal 6.6 - 10.5 fL AH Workflow SS Platelets (Bld) [#/Vol] 306 103/mcL Normal 150 - 450 10^3/mcL AH Workflow SS Platelets LM Ql (Bld) Normal *NA* (03/31/24 3:51 AM) Invalid Interpretation Code AH Workflow SS Poikilocytosis LM Ql (Bld) 1+ *NA* (03/31/24 3:51 AM) Invalid Interpretation Code AH Workflow SS Polychromasia LM Ql (Bld) 1+ *NA* (03/31/24 3:51 AM) Invalid Interpretation Code AH Workflow SS Potassium [Moles/Vol] 3.8 mmol/L Normal 3.5 - 5.0 mEq/L AH ADM SS RBC (Bld) [#/Vol] 6.12 106/mcL High 4.10 - 5.3 0 10^6/mcL AH Workflow SS Sodium [Moles/Vol] 140 mmol/L Normal 136 - 145 mEq/L AH ADM SS Urea nitrogen [Mass/Vol] 17.0 mg/dL Normal 8.0 - 22.0 mg/dL AH ADM SS Urea nitrogen/Creatinine [Mass ratio] 23.0 ratio High 10.0 - 22.0 ratio AH ADM SS WBC (Bld) [#/Vol] 17.5 103/mcL High 4.5 - 10.8 10^3/mcL Workflow SS LABORATORYOrdered By: Emigdio Portillo on 03-31-2024 CO2 [Moles/Vol] mEq/L Invalid Interpretation Code 22 - 32 mEq/L Chemistry S Electrolyte Balance Unable to Calculate Invalid Interpretation Code 4.0 - 15.0 Chemistry S Comment on above: Result Comment: Unab le to calculate this test result accurately. Results used to calculate this test are outside the reportable range. MGon 03-31-2024 Magnesium [Mass/Vol] 1.8 mg/dL Normal 1.6-2.4 [facility] Comment on above: Performed By: #### C BC, MG, GFR, BMP, MORPH, ADIFF, ANEU #### [address] [address] MYCOon 03-31-2024 Mycoplasma IgM Negative Normal [facility] Comment on above: Result Comment: INTE RPRETATION OF MYCOPLASMA IgM: Negative: IgM to M. pneumoniae Absent, or at levels below the assay limit of detection. Positive: IgM to M. pneumoniae Present. Invalid: Test results are invalid due to invalid internal control. Assay was performed in duplicate. Repeat testing is suggested if clinically indicated. Performed By: #### G FR, MYCO, CBC, ADIFF, ANEU, TROPHS, BMP, MG #### [address] [address] .Auto Diffon 2024 Basophil, Absolute 0.0 10 3/mcL Normal 0.0-0.3 [facility] Comment on above: Performed By: #### G FR, MYCO, CBC, ADIFF, ANEU, TROPHS, BMP, MG #### [address] [address] Basophils/100 WBC (Bld) 0.0 % Normal 0.0-2.5 [facility] Comment on above: Performed By: #### G FR, MYCO, CBC, ADIFF, ANEU, TROPHS, BMP, MG #### [address] [address] Eosinophil, Absolute 0.0 10 3/mcL Normal 0.0-0.7 [facility] Comment on above: Performed By: #### G FR, MYCO, CBC, ADIFF, ANEU, TROPHS, BMP, MG #### [address] [address] Eosinophils/100 WBC (Bld) 0.0 % Normal 0.0-6.0 [facility] Comment on above: Performed By: #### G FR, MYCO, CBC, ADIFF, ANEU, TROPHS, BMP, MG #### [address] [address] Lymphocyte, Absolute 0.9 10 3/mcL Normal 0.9-4.3 [facility] Comment on above: Performed By: #### G FR, MYCO, CBC, ADIFF, ANEU, TROPHS, BMP, MG #### [address] [address] Lymphocytes/100 WBC (Bld) 8.0 % Low 20.0-40.0 [facility] Comment on above: Performed By: #### G FR, MYCO, CBC, ADIFF, ANEU, TROPHS, BMP, MG #### [address] [address] Monocyte, Absolute 0.3 10 3/mcL Normal 0.1-1.4 [facility] Comment on above: Performed By: #### G FR, MYCO, CBC, ADIFF, ANEU, TROPHS, BMP, MG #### [address] [address] Monocytes/100 WBC (Bld) 2.8 % Normal 2.0-13.0 [facility] Comment on above: Performed By: #### G FR, MYCO, CBC, ADIFF, ANEU, TROPHS, BMP, MG #### [address] [address] Neutrophils/100 WBC (Bld) 89.2 % High 50.0-75.0 [facility] Comment on above: Performed By: #### G FR, MYCO, CBC, ADIFF, ANEU, TROPHS, BMP, MG #### [address] [address] .GFRon 2024 GFR >60 Normal [facility] Comment on above: Result Comment: GFR Population mean for , Non- Americans Ages 20-29 = 116 mL/min/1.73 sq.m. Ages 30-39 = 107 mL/min/1.73 sq.m. Ages 40-49 = 99 mL/min/1.73 sq.m. Ages 50-59 = 93 mL/min/1.73 sq.m. Ages 60-69 = 85 mL/min/1.73 sq.m. Ages 70+ = 75 mL/min/1.73 sq.m. Chronic Kidney Disease: Less than 60 mL/min/1.73 square meters End Stage Renal Disease: Less than 15 mL/min/1.73 square meters Performed By: #### G FR, MYCO, CBC, ADIFF, ANEU, TROPHS, BMP, MG #### [place] [id number] GFR Non- >60 Normal [facility] Comment on above: Result Comment: GFR Population mean for , Non- Americans Ages 20-29 = 116 mL/min/1.73 sq.m. Ages 30-39 = 107 mL/min/1.73 sq.m. Ages 40-49 = 99 mL/min/1.73 sq.m. Ages 50-59 = 93 mL/min/1.73 sq.m. Ages 60-69 = 85 mL/min/1.73 sq.m. Ages 70+ = 75 mL/min/1.73 sq.m. Chronic Kidney Disease: Less than 60 mL/min/1.73 square meters End Stage Renal Disease: Less than 15 mL/min/1.73 square meters Performed By: #### G FR, MYCO, CBC, ADIFF, ANEU, TROPHS, BMP, MG #### [address] [address] .NEUABSon 2024 Neutrophil, Absolute 9.9 10 3/mcL High 2.3-8.1 [facility] Comment on above: Performed By: #### G FR, MYCO, CBC, ADIFF, ANEU, TROPHS, BMP, MG #### [address] [address] BMPon 2024 BUN/Creatinine Ratio 20.3 ratio Normal 10.0-22.0 [facility] Comment on above: Performed By: #### G FR, MYCO, CBC, ADIFF, ANEU, TROPHS, BMP, MG #### [place] [id number] Calcium [Mass/Vol] 9.2 mg/dL Normal 8.7-10.4 [facility] Comment on above: Performed By: #### G FR, MYCO, CBC, ADIFF, ANEU, TROPHS, BMP, MG #### [place] [address] Chloride [Moles/Vol] 102 mmol/L Normal 98-110 [facility] Comment on above: Performed By: #### G FR, MYCO, CBC, ADIFF, ANEU, TROPHS, BMP, MG #### [place] [id number] CO2 [Moles/Vol] 32 mmol/L Normal 22-32 [facility] Comment on above: Performed By: #### G FR, MYCO, CBC, ADIFF, ANEU, TROPHS, BMP, MG #### [place] [id number] Creatinine [Mass/Vol] 0.59 mg/dL Normal 0.50-1.20 [facility] Comment on above: Result Comment: Test ing performed on Outsell analyzer using enzymatic creatinine methodology. Performed By: #### G FR, MYCO, CBC, ADIFF, ANEU, TROPHS, BMP, MG #### [place] [id number] Electrolyte Balance 5.0 mEq/L Normal 4.0-15.0 [facility] Comment on above: Performed By: #### G FR, MYCO, CBC, ADIFF, ANEU, TROPHS, BMP, MG #### [place] [id number] Glucose [Mass/Vol] 242 mg/dL High 70-110 [facility] Comment on above: Performed By: #### G FR, MYCO, CBC, ADIFF, ANEU, TROPHS, BMP, MG #### [place] [address] Potassium [Moles/Vol] 4.4 mmol/L Normal 3.5-5.0 [facility] Comment on above: Performed By: #### G FR, MYCO, CBC, ADIFF, ANEU, TROPHS, BMP, MG #### [place] [address] Sodium [Moles/Vol] 139 mmol/L Normal 136-145 [facility] Comment on above: Performed By: #### G FR, MYCO, CBC, ADIFF, ANEU, TROPHS, BMP, MG #### [place] [address] Urea nitrogen [Mass/Vol] 12.0 mg/dL Normal 8.0-22.0 [facility] Comment on above: Performed By: #### G FR, MYCO, CBC, ADIFF, ANEU, TROPHS, BMP, MG #### [place] [address] CBCon 2024 Erythrocyte distribution width (RBC) [Ratio] 18.6 % High 11.5-15.5 [facility] Comment on above: Performed By: #### G FR, MYCO, CBC, ADIFF, ANEU, TROPHS, BMP, MG #### [place] [address] Hematocrit (Bld) [Volume fraction] 38.2 % Normal 34.0-46.0 [facility] Comment on above: Performed By: #### G FR, MYCO, CBC, ADIFF, ANEU, TROPHS, BMP, MG #### [place] [address] Hgb 11.4 G/dL Low 12.0-16.0 [facility] Comment on above: Performed By: #### G FR, MYCO, CBC, ADIFF, ANEU, TROPHS, BMP, MG #### [place] [address] MCH (RBC) [Entitic mass] 20.6 pg Low 27.0-33.0 [facility] Comment on above: Performed By: #### G FR, MYCO, CBC, ADIFF, ANEU, TROPHS, BMP, MG #### [place] [address] MCHC 29.9 G/dL Low 32.0-36.0 [facility] Comment on above: Performed By: #### G FR, MYCO, CBC, ADIFF, ANEU, TROPHS, BMP, MG #### [place] [address] MCV (RBC) [Entitic vol] 68.8 fL Low 80.0-99.0 [facility] Comment on above: Performed By: #### G FR, MYCO, CBC, ADIFF, ANEU, TROPHS, BMP, MG #### [place] [address] Platelet 248 10 3/mcL Normal 150-450 [facility] Comment on above: Performed By: #### G FR, MYCO, CBC, ADIFF, ANEU, TROPHS, BMP, MG #### [place] [address] Platelet mean volume (Bld) [Entitic vol] 8.6 fL Normal 6.6-10.5 [facility] Comment on above: Performed By: #### G FR, MYCO, CBC, ADIFF, ANEU, TROPHS, BMP, MG #### [place] [address] RBC 5.55 10 6/mcL High 4.10-5.30 [facility] Comment on above: Performed By: #### G FR, MYCO, CBC, ADIFF, ANEU, TROPHS, BMP, MG #### [place] [address] WBC 11.1 10 3/mcL High 4.5-10.8 [facility] Comment on above: Performed By: #### G FR, MYCO, CBC, ADIFF, ANEU, TROPHS, BMP, MG #### [place] [address] LABORATORYOrdered By: SYSTEM SYSTEM on 2024 Basophils (Bld) [#/Vol] 0.0 103/mcL Normal 0.0 - 0.3 10^3/mcL AH Workflow SS Basophils/100 WBC (Bld) 0.0 % Normal 0.0 - 2.5 % AH Workflow SS Eosinophils (Bld) [#/Vol] 0.0 103/mcL Normal 0.0 - 0.7 10^3/mcL AH Workflow SS Eosinophils/100 WBC (Bld) 0.0 % Normal 0.0 - 6.0 % AH Workflow SS Erythrocyte distribution width (RBC) [Ratio] 18.6 % High 11.5 - 15.5 % AH Workflow SS Hematocrit (Bld) [Volume fraction] 38.2 % Normal 34.0 - 46.0 % AH Workflow SS Hemoglobin (Bld) [Mass/Vol] 11.4 G/dL Low 12.0 - 16.0 G/dL AH Workflow SS Lymphocytes (Bld) [#/Vol] 0.9 103/mcL Normal 0.9 - 4.3 10^3/mcL AH Workflow SS Lymphocytes/100 WBC (Bld) 8.0 % Low 20.0 - 40.0 % AH Workflow SS Magnesium [Mass/Vol] 2.0 mg/dL Normal 1.6 - 2 .4 mg/dL AH ADM SS MCH (RBC) [Entitic mass] 20.6 pg Low 27.0 - 33.0 pg AH Workflow SS MCHC 29.9 G/dL Low 32.0 - 36.0 G/dL AH Workflow SS MCV (RBC) [Entitic vol] 68.8 fL Low 80.0 - 99.0 fL AH Workflow SS Monocytes (Bld) [#/Vol] 0.3 103/mcL Normal 0.1 - 1.4 10^3/mcL AH Workflow SS Monocytes/100 WBC (Bld) 2.8 % Normal 2.0 - 13.0 % AH Workflow SS Neutrophils (Bld) [#/Vol] 9.9 103/mcL High 2.3 - 8.1 10^3/mcL AH Workflow SS Neutrophils/100 WBC (Bld) 89.2 % High 50.0 - 75.0 % AH Workflow SS Platelet mean volume (Bld) [Entitic vol] 8.6 fL Normal 6.6 - 10.5 fL AH Workflow SS Platelets (Bld) [#/Vol] 248 103/mcL Normal 150 - 450 10^3/mcL AH Workflow SS RBC (Bld) [#/Vol] 5.55 106/mcL High 4.10 - 5.3 0 10^6/mcL Workflow SS Troponin I.cardiac DL <= 0.01 ng/mL [Mass/Vol] ng/L Normal 0 - 34 ng/L AH ADM SS Comment on above: Interpretive Data: High Sensitive Troponin I Reference Ranges: Female: 0-34 ng/L Male: 0-54 ng/L Testing performed on [employer] IM analyzer using direct chemiluminescent technology. WBC (Bld) [#/Vol] 11.1 103/mcL High 4.5 - 10.8 10^3/mcL Workflow SS LABORATORYOrdered By: Willow Gonzalez on 2024 M. pneumoniae IgM IA Ql (S) Negative 7 (03/30/24 5:26 AM) Normal AH Man Viro/Sero SS Comment on above: Interpretive Data: I NTERPRETATION OF MYCOPLASMA IgM: Negative: IgM to M. pneumoniae Absent, or at levels below the assay limit of detection. Positive: IgM to M. pneumoniae Present. Invalid: Test results are invalid due to invalid internal control. Assay was performed in duplicate. Repeat testing is suggested if clinically indicated. LABORATORYOrdered By: Aurea Barone on 2024 Adenovirus DNA GUNJAN+non-probe Ql (Nph) Not Detected *NA* (03/30/24 1:22 AM) Invalid Interpretation Code Not Detected AH Auto Viro/Sero SS B. parapertussis [id number] DNA GUNJAN+non-probe Ql (Nph) Not Detected *NA* (03/30/24 1:22 AM) Invalid Interpretation Code Not Detected AH Auto Viro/Sero SS B. pertussis toxin promoter region GUNJAN+non-probe Ql (Nph) Not Detected *NA* (03/30/24 1:22 AM) Invalid Interpretation Code Not Detected AH Auto Viro/Sero SS C. pneumoniae DNA GUNJAN+non-probe Ql (Nph) Not Detected *NA* (03/30/24 1:22 AM) Invalid Interpretation Code Not Detected AH Auto Viro/Sero SS FLUAV RNA GUNJAN+non-probe Ql (Nph) Not Detected *NA* (03/30/24 1:22 AM) Invalid Interpretation Code Not Detected AH Auto Viro/Sero SS FLUBV RNA GUNJAN+non-probe Ql (Nph) Not Detected *NA* (03/30/24 1:22 AM) Invalid Interpretation Code Not Detected AH Auto Viro/Sero SS hMPV RNA GUNJAN+non-probe Ql (Nph) Not Detected *NA* (03/30/24 1:22 AM) Invalid Interpretation Code Not Detected AH Auto Viro/Sero SS M. pneumoniae DNA GUNJAN+non-probe Ql (Nph) Not Detected *NA* (03/30/24 1:22 AM) Invalid Interpretation Code Not Detected AH Auto Viro/Sero SS Parainfluenza virus 1 RNA GUNJAN+non-probe Ql (Nph) Not Detected *NA* (03/30/24 1:22 AM) Invalid Interpretation Code Not Detected AH Auto Viro/Sero SS Parainfluenza virus 2 RNA GUNJAN+non-probe Ql (Nph) Not Detected *NA* (03/30/24 1:22 AM) Invalid Interpretation Code Not Detected AH Auto Viro/Sero SS Parainfluenza virus 3 RNA GUNJAN+non-probe Ql (Nph) Not Detected *NA* (03/30/24 1:22 AM) Invalid Interpretation Code Not Detected AH Auto Viro/Sero SS Parainfluenza virus 4 RNA GUNJAN+non-probe Ql (Nph) Not Detected *NA* (03/30/24 1:22 AM) Invalid Interpretation Code Not Detected AH Auto Viro/Sero SS Rhinovirus+Enterovirus RNA GUNJAN+non-probe Ql (Nph) Detected *ABN* (03/30/24 1:22 AM) Invalid Interpretation Code Not Detected AH Auto Viro/Sero SS RSV RNA GUNJAN+non-probe Ql (Nph) Not Detected *NA* (03/30/24 1:22 AM) Invalid Interpretation Code Not Detected AH Auto Viro/Sero SS SARS-CoV-2 (COVID-19) RNA GUNJAN+probe Ql (Resp) Not Detected 4 *NA* (03/30/24 1:22 AM) Invalid Interpretation Code Not Detected AH Auto Viro/Sero SS Comment on above: Interpretive Data: T his assay has been validated in the [facility] for use with nasopharyngeal specimens in [facility] If a non-validated specimen or test collection method was used, please interpret the results with caution, especially if the test result is negative. A positive test result for COVID-19 indicates that RNA from SARS-CoV-2 was detected, and the patient is infected with the virus and presumed to be contagious. Laboratory test results should always be considered in the context of clinical observations and epidemiological data in making a final diagnosis and patient management decisions. Patient management should follow current CDC guidelines. A negative test result for this test means that SARS-CoV-2 RNA was not present in the specimen above the limit of detection. However, a negative result does not rule out COVID-19 and should not be used as the sole basis for treatment or patient management decisions. A negative result does not exclude the possibility of COVID-19. When diagnostic testing is negative, the possibility of a false negative result should be considered in the context of a patient's recent exposures and the presence of clinical signs and symptoms consistent with COVID-19. The possibility of a false negative result should especially be considered if the patient s recent exposures or clinical presentation indicate that COVID-19 is likely, and diagnostic tests for other causes of illness (e.g., other respiratory illness) are negative. If COVID-19 is still suspected based on exposure history together with other clinical findings, re-testing should be considered by healthcare providers in consultation with public health authorities. MGon 2024 Magnesium [Mass/Vol] 2.0 mg/dL Normal 1.6-2.4 [facility] Comment on above: Performed By: #### G FR, MYCO, CBC, ADIFF, ANEU, TROPHS, BMP, MG #### [facility] [address] [place] [address] No Panel Informationon 03-30 Legionella Urine Ag Presumptive negative for L. pneumophila serogroup 1 antigen in urine, suggesting no recent or current infection. Legionnaire's disease cannot be ruled out since other serogroups and species may also cause disease. [facility] Streptococcus Pneumoniae Urine Antig Presumptive negative for pneumococcal pneumonia, suggesting no current or recent pneumococcal infection. Infection due to Strep pneumoniae cannot be ruled out since the antigen present in the sample may be below the detection limit of the test. [facility] Comment on above: This test has not be en evaluated on patients taking antibiotics for greater than 24 hours or on patients who have recently completed an antibiotic regimen. The accuracy of this test has not been proven in young children. Deb 2024 Adenovirus Not detected Normal Not Detected [facility] Comment on above: Performed By: #### G FR, MYCO, CBC, ADIFF, ANEU, TROPHS, BMP, MG #### [place] [address] Bordetella Parapertussis Not detected Normal Not Detected [facility] Comment on above: Performed By: #### G FR, MYCO, CBC, ADIFF, ANEU, TROPHS, BMP, MG #### [place] [address] Bordetella Pertussis Not detected Normal Not Detected [facility] Comment on above: Performed By: #### G FR, MYCO, CBC, ADIFF, ANEU, TROPHS, BMP, MG #### [place] [address] Chlamydophila pneumoniae Not detected Normal Not Detected [facility] Comment on above: Performed By: #### G FR, MYCO, CBC, ADIFF, ANEU, TROPHS, BMP, MG #### [place] [address] Coronavirus 229E (Not COVID-19) Not detected Normal Not Detected [facility] Comment on above: Performed By: #### G FR, MYCO, CBC, ADIFF, ANEU, TROPHS, BMP, MG #### [place] [address] Coronavirus HKU1 (Not COVID-19) Not detected Normal Not Detected [facility] Comment on above: Performed By: #### G FR, MYCO, CBC, ADIFF, ANEU, TROPHS, BMP, MG #### [place] [address] Coronavirus NL63 (Not COVID-19) Not detected Normal Not Detected [facility] Comment on above: Performed By: #### G FR, MYCO, CBC, ADIFF, ANEU, TROPHS, BMP, MG #### [place] [phone] Coronavirus OC43 (Not COVID-19) Not detected Normal Not Detected [facility] Comment on above: Performed By: #### G FR, MYCO, CBC, ADIFF, ANEU, TROPHS, BMP, MG #### [facility] [address] [place] [address] Human Metapneumovirus Not detected Normal Not Detected [facility] Comment on above: Performed By: #### G FR, MYCO, CBC, ADIFF, ANEU, TROPHS, BMP, MG #### [facility] [address] [place], [place] [id number] Influenza A Not detected Normal Not Detected [facility] Comment on above: Performed By: #### G FR, MYCO, CBC, ADIFF, ANEU, TROPHS, BMP, MG #### [facility] [address] [place], [place] [id number] Influenza B Not detected Normal Not Detected [facility] Comment on above: Performed By: #### G FR, MYCO, CBC, ADIFF, ANEU, TROPHS, BMP, MG #### [facility] [address] [place] [address] Mycoplasma pneumoniae Not detected Normal Not Detected [facility] Comment on above: Performed By: #### G FR, MYCO, CBC, ADIFF, ANEU, TROPHS, BMP, MG #### [facility] [address] [place], [place] [id number] Parainfluenza 1 Not detected Normal Not Detected [facility] Comment on above: Performed By: #### G FR, MYCO, CBC, ADIFF, ANEU, TROPHS, BMP, MG #### [facility] [address] [place] [address] Parainfluenza 2 Not detected Normal Not Detected [facility] Comment on above: Performed By: #### G FR, MYCO, CBC, ADIFF, ANEU, TROPHS, BMP, MG #### [facility] [address] [place], [place] [id number] Parainfluenza 3 Not detected Normal Not Detected [facility] Comment on above: Performed By: #### G FR, MYCO, CBC, ADIFF, ANEU, TROPHS, BMP, MG #### [facility] [address] [place] [address] Parainfluenza 4 Not detected Normal Not Detected [facility] Comment on above: Performed By: #### G FR, MYCO, CBC, ADIFF, ANEU, TROPHS, BMP, MG #### [facility] [address] [place] [address] Respiratory Syncytial Virus Not detected Normal Not Detected [facility] Comment on above: Performed By: #### G FR, MYCO, CBC, ADIFF, ANEU, TROPHS, BMP, MG #### [facility] [address] [place] [address] Rhinovirus/Enterovirus Detected Abnormal Not Detected [facility] Comment on above: Performed By: #### G FR, MYCO, CBC, ADIFF, ANEU, TROPHS, BMP, MG #### [facility] [address] [place] [address] SARS-CoV-2 (COVID-19) RNA GUNJAN+probe Ql (Unsp spec) Not detected Normal Not Detected [facility] Comment on above: Result Comment: This assay has been validated in the [facility] for use with nasopharyngeal specimens in [facility] If a non-validated specimen or test collection method was used, please interpret the results with caution, especially if the test result is negative. A positive test result for COVID-19 indicates that RNA from SARS-CoV-2 was detected, and the patient is infected with the virus and presumed to be contagious. Laboratory test results should always be considered in the context of clinical observations and epidemiological data in making a final diagnosis and patient management decisions. Patient management should follow current CDC guidelines. A negative test result for this test means that SARS-CoV-2 RNA was not present in the specimen above the limit of detection. However, a negative result does not rule out COVID-19 and should not be used as the sole basis for treatment or patient management decisions. A negative result does not exclude the possibility of COVID-19. When diagnostic testing is negative, the possibility of a false negative result should be considered in the context of a patient's recent exposures and the presence of clinical signs and symptoms consistent with COVID-19. The possibility of a false negative result should especially be considered if the patient?s recent exposures or clinical presentation indicate that COVID-19 is likely, and diagnostic tests for other causes of illness (e.g., other respiratory illness) are negative. If COVID-19 is still suspected based on exposure history together with other clinical findings, re-testing should be considered by healthcare providers in consultation with public health authorities. Performed By: #### G FR, MYCO, CBC, ADIFF, ANEU, TROPHS, BMP, MG #### [place] [phone] [facility] 2024 High Sensitivity Troponin I <3 Normal 0-34 [facility] Comment on above: Result Comment: High Sensitive Troponin I Reference Ranges: Female: 0-34 ng/L Male: 0-54 ng/L Testing performed on [employer] analyzer using direct chemiluminescent technology. Performed By: #### G FR, MYCO, CBC, ADIFF, ANEU, TROPHS, BMP, MG #### [place] [address] .Auto Diffon 03-29-2024 Basophil, Absolute 0.0 10 3/mcL Normal 0.0-0.2 [facility] Comment on above: Performed By: #### V BG #### [address] [address] Basophils/100 WBC (Bld) 0.1 % Normal 0.0-2.5 [facility] Comment on above: Performed By: #### V BG #### [address] [address] Eosinophil, Absolute 0.0 10 3/mcL Normal 0.0-0.7 [facility] Comment on above: Performed By: #### V BG #### [address] [address] Eosinophils/100 WBC (Bld) 0.2 % Normal 0.0-7.0 [facility] Comment on above: Performed By: #### V BG #### [address] [address] Lymphocyte, Absolute 1.4 10 3/mcL Normal 0.9-4.3 [facility] Comment on above: Performed By: #### V BG #### [address] [address] Lymphocytes/100 WBC (Bld) 9.8 % Low 20.0-40.0 [facility] Comment on above: Performed By: #### V BG #### [address] [address] Monocyte, Absolute 1.0 10 3/mcL Normal 0.1-1.4 [facility] Comment on above: Performed By: #### V BG #### [address] [address] Monocytes/100 WBC (Bld) 6.8 % Normal 2.0-13.0 [facility] Comment on above: Performed By: #### V BG #### [address] [address] Neutrophils/100 WBC (Bld) 83.1 % High 50.0-75.0 [facility] Comment on above: Performed By: #### V BG #### [address] [address] .GFRon 03-29-2024 GFR Non- 84 ml/min/1.73sqm Normal [facility] Comment on above: Result Comment: GFR Population mean for , Non- Americans Ages 20-29 = 116 mL/min/1.73 sq.m. Ages 30-39 = 107 mL/min/1.73 sq.m. Ages 40-49 = 99 mL/min/1.73 sq.m. Ages 50-59 = 93 mL/min/1.73 sq.m. Ages 60-69 = 85 mL/min/1.73 sq.m. Ages 70+ = 75 mL/min/1.73 sq.m. Chronic Kidney Disease: Less than 60 mL/min/1.73 square meters End Stage Renal Disease: Less than 15 mL/min/1.73 square meters Performed By: #### L AC, ANEU, CBC, MORPH, PBNP, CMP, GFR, ADIFF, PRO, MDW #### [address] [address] GFR 101 ml/min/1.73sqm Normal [facility] Comment on above: Result Comment: GFR Population mean for , Non- Americans Ages 20-29 = 116 mL/min/1.73 sq.m. Ages 30-39 = 107 mL/min/1.73 sq.m. Ages 40-49 = 99 mL/min/1.73 sq.m. Ages 50-59 = 93 mL/min/1.73 sq.m. Ages 60-69 = 85 mL/min/1.73 sq.m. Ages 70+ = 75 mL/min/1.73 sq.m. Chronic Kidney Disease: Less than 60 mL/min/1.73 square meters End Stage Renal Disease: Less than 15 mL/min/1.73 square meters Performed By: #### L AC, ANEU, CBC, MORPH, PBNP, CMP, GFR, ADIFF, PRO, MDW #### [address] [address] .MDWon 03-29-2024 Monocyte Distribution Width Not performed Normal 0.00-20.00 [facility] Comment on above: Result Comment: MDW testing performed only on adult ER patients between the ages of 18-89 years. Performed By: #### V BG #### [address] [address] .Morphon 03-29-2024 Anisocytosis Ql (Bld) 1+ Normal L [facility] Comment on above: Performed By: #### V BG #### [place] [address] Hypochrom 1+ Normal [facility] Comment on above: Performed By: #### V BG #### [place] [phone] Microcytosis 2+ Normal [facility] Comment on above: Performed By: #### V BG #### [place] [phone] Ovalocytes 1+ Normal [facility] Comment on above: Performed By: #### V BG #### [place] [phone] Platelet Estimate Normal Normal [facility] Comment on above: Performed By: #### V BG #### [place] [address] Poik 1+ Normal [facility] Comment on above: Performed By: #### V BG #### [place] [address] Tear Cell 1+ Normal [facility] Comment on above: Performed By: #### V BG #### [place] [address] .NEUABSon 03-29-2024 Neutrophil, Absolute 12.0 10 3/mcL High 2.3-8.1 [facility] Comment on above: Performed By: #### V BG #### [place] [address] .Urinalysis Microscopic (AO) on 03-29-2024 UA Bacteria Trace Abnormal [facility] Comment on above: Performed By: #### V BG #### [place] [address] UA RBC 0-5 Abnormal None Seen [facility] Comment on above: Performed By: #### V BG #### [place] [address] UA Squam Epithelial LOADED Abnormal None Seen [facility] Comment on above: Performed By: #### V BG #### [place] [address] UA WBC LOADED Abnormal None Seen [facility] Comment on above: Performed By: #### V BG #### [place] [address] CBCon 03-29-2024 Erythrocyte distribution width (RBC) [Ratio] 18.5 % High 11.5-15.5 [facility] Comment on above: Performed By: #### L AC, ANEU, CBC, MORPH, PBNP, CMP, GFR, ADIFF, PRO, MDW #### [place] [address] [place], [place] [address] Hematocrit (Bld) [Volume fraction] 38.3 % Normal 34.0-46.0 [facility] Comment on above: Performed By: #### L AC, ANEU, CBC, MORPH, PBNP, CMP, GFR, ADIFF, PRO, MDW #### [address] [address] Hgb 11.5 G/dL Low 12.0-16.0 [facility] Comment on above: Performed By: #### L AC, ANEU, CBC, MORPH, PBNP, CMP, GFR, ADIFF, PRO, MDW #### [address] [address] MCH (RBC) [Entitic mass] 20.6 pg Low 27.0-33.0 [facility] Comment on above: Performed By: #### L AC, ANEU, CBC, MORPH, PBNP, CMP, GFR, ADIFF, PRO, MDW #### [address] [address] MCHC 30.1 G/dL Low 32.0-36.0 [facility] Comment on above: Performed By: #### L AC, ANEU, CBC, MORPH, PBNP, CMP, GFR, ADIFF, PRO, MDW #### [address] [address] MCV (RBC) [Entitic vol] 68.6 fL Low 80.0-99.0 [facility] Comment on above: Performed By: #### L AC, ANEU, CBC, MORPH, PBNP, CMP, GFR, ADIFF, PRO, MDW #### [address] [address] Platelet 257 10 3/mcL Normal 150-450 [facility] Comment on above: Performed By: #### L AC, ANEU, CBC, MORPH, PBNP, CMP, GFR, ADIFF, PRO, MDW #### [address] [address] Platelet mean volume (Bld) [Entitic vol] 7.7 fL Normal 6.6-10.5 [facility] Comment on above: Performed By: #### L AC, ANEU, CBC, MORPH, PBNP, CMP, GFR, ADIFF, PRO, DENA #### [address] [address] RBC 5.58 10 6/mcL High 4.10-5.30 [facility] Comment on above: Performed By: #### L AC, ANEU, CBC, MORPH, PBNP, CMP, GFR, ADIFF, PRO, W #### [address] [address] WBC 14.8 10 3/mcL High 4.5-10.8 [facility] Comment on above: Performed By: #### L AC, ANEU, CBC, MORPH, PBNP, CMP, GFR, ADIFF, PRO, DENA #### [address] [address] CMPon 03-29-2024 Albumin Level 3.3 G/dL Low 3.5-5.0 [facility] Comment on above: Performed By: #### L AC, ANEU, CBC, MORPH, PBNP, CMP, GFR, ADIFF, PRO, DENA #### [address] [address] Albumin/Globulin [Mass ratio] 1.3 {ratio} Normal 1.1-2.5 [facility] Comment on above: Performed By: #### L AC, ANEU, CBC, MORPH, PBNP, CMP, GFR, ADIFF, PRO, DENA #### [address] [address] ALP [Catalytic activity/Vol] 107 U/L Normal 40-135 [facility] Comment on above: Performed By: #### L AC, ANEU, CBC, MORPH, PBNP, CMP, GFR, ADIFF, PRO, DENA #### [address] [address] ALT [Catalytic activity/Vol] 24 U/L Normal 14-59 [facility] Comment on above: Performed By: #### L AC, ANEU, CBC, MORPH, PBNP, CMP, GFR, ADIFF, PROMDW #### [address] [address] AST [Catalytic activity/Vol] 11 U/L Normal 10-40 [facility] Comment on above: Performed By: #### L AC, ANEU, CBC, MORPH, PBNP, CMP, GFR, ADIFF, PRO, MDW #### [address] [address] Bili Total 0.7 mg/dL Normal 0.2-1.0 [facility] Comment on above: Result Comment: Use of this assay is not recommended for patients undergoing treatment with eltrombopag due to the potential for falsely elevated results. Performed By: #### L AC, ANEU, CBC, MORPH, PBNP, CMP, GFR, ADIFF, PRO, MDW #### [address] [address] BUN/Creatinine Ratio 9 ratio Normal 7-27 [facility] Comment on above: Performed By: #### L AC, ANEU, CBC, MORPH, PBNP, CMP, GFR, ADIFF, PRO, MDW #### [address] [address] Calcium [Mass/Vol] 8.8 mg/dL Normal 8.4-10.2 [facility] Comment on above: Performed By: #### L AC, ANEU, CBC, MORPH, PBNP, CMP, GFR, ADIFF, PRO, MDW #### [address] [address] Chloride [Moles/Vol] 100 mmol/L Normal 98-107 [facility] Comment on above: Performed By: #### L AC, ANEU, CBC, MORPH, PBNP, CMP, GFR, ADIFF, PRO, MDW #### [address] [address] CO2 [Moles/Vol] 32 mmol/L High 22-29 [facility] Comment on above: Performed By: #### L AC, ANEU, CBC, MORPH, PBNP, CMP, GFR, ADIFF, PRO, MDW #### [address] [address] Creatinine [Mass/Vol] 0.80 mg/dL Normal 0.55-1.02 [facility] Comment on above: Result Comment: Test ing performed on Siemens Dimension EXL analyzer using a modified kinetic Myrtle technique. Performed By: #### L AC, ANEU, CBC, MORPH, PBNP, CMP, GFR, ADIFF, PRO, MDW #### [place] [phone] Electrolyte Balance 6.0 mEq/L Normal 4.0-15.0 [facility] Comment on above: Performed By: #### L AC, ANEU, CBC, MORPH, PBNP, CMP, GFR, ADIFF, PRO, MDW #### [place] [address] Globulin 2.5 G/dL Normal [facility] Comment on above: Performed By: #### L AC, ANEU, CBC, MORPH, PBNP, CMP, GFR, ADIFF, PRO, MDW #### [address] [address] Glucose [Mass/Vol] 117 mg/dL High 70-105 [facility] Comment on above: Performed By: #### L AC, ANEU, CBC, MORPH, PBNP, CMP, GFR, ADIFF, PRO, MDW #### [address] [address] Potassium [Moles/Vol] 4.4 mmol/L Normal 3.5-5.1 [facility] Comment on above: Performed By: #### L AC, ANEU, CBC, MORPH, PBNP, CMP, GFR, ADIFF, PRO, MDW #### [address] [address] Sodium [Moles/Vol] 138 mmol/L Normal 136-145 [facility] Comment on above: Performed By: #### L AC, ANEU, CBC, MORPH, PBNP, CMP, GFR, ADIFF, PRO, MDW #### [place] [phone] Total Protein 5.8 G/dL Low 6.4-8.2 [facility] Comment on above: Performed By: #### L AC, ANEU, CBC, MORPH, PBNP, CMP, GFR, ADIFF, PRO, MDW #### [place] [address] [place], [place] [address] Urea nitrogen [Mass/Vol] 7 mg/dL Normal 7-18 [facility] Comment on above: Performed By: #### L AC, ANEU, CBC, MORPH, PBNP, CMP, GFR, ADIFF, PRO, MDW #### [address] [address] CVFLURVon 03-29-2024 FLU A PCR Negative Normal Negative [facility] Comment on above: Performed By: #### C VFLURV #### [address] [address] FLU B PCR Negative Normal Negative [facility] Comment on above: Performed By: #### C VFLURV #### [address] [address] RSV PCR Negative Normal Negative [facility] Comment on above: Performed By: #### C VFLURV #### [place] [address] SARS-CoV-2 (COVID-19) RNA GUNJAN+probe Ql (Unsp spec) Negative Normal Negative [facility] Comment on above: Result Comment: Resu lts from the Xpert Xpress CoV-2/Flu/RSV plus test should be correlated with the clinical history, epidemiological data, and other data available to the clinical evaluating the patient. Performance of the Xpert Xpress CoV-2/Flu/RSV plus test has only been established in nasopharyngeal swab specimen. Erroneous test results might occur from improper specimen collection, failure to follow the recommended sample collection, handling and storage procedures, technical error, or sample mix-up. False negative results may occur if a virus is present at a level below the analytical limit of detection. Viral nucleic acid may persist in vivo, independent of virus viability. Detection of analyte target(s) does not imply that the corresponding virus(es) are infectious or are the causative agents for clinical symptoms. Recent patient exposure to FluMist or other live attenuated influenza vaccines may cause inaccurate positive results. Performed By: #### C VFLURV #### [place] [address] [place], [place] [address] LABORATORYOrdered By: Chino Basurto on 03-29-2024 HCG ( test) Ql Negative (03/29/24 12:06 PM) Normal AO Manual Urine SS test (u) int Not detected Invalid Interpretation Code AO Manual Urine SS Appearance (U) Clear (03/29/24 11:53 AM) Normal Clear AO Auto Urine SS Bacteria LM.HPF (Urine sed) [#/Area] Trace /HPF Invalid Interpretation Code AO Auto Urine SS Bilirubin Ql (U) Small *ABN* (03/29/24 11:53 AM) Invalid Interpretation Code Negative AO Auto Urine SS Color (U) Yellow (03/29/24 11:53 AM) Normal AO Auto Urine SS Glucose Test strip (U) [Mass/Vol] Negative Normal Negative AO Auto Urine SS Hemoglobin Auto test strip (U) [Mass/Vol] Trace *ABN* (03/29/24 11:53 AM) Invalid Interpretation Code Negative AO Auto Urine SS Ketones Ql (U) 80 mg/dL Invalid Interpretation Code Negative AO Auto Urine SS UA Leuk Est Large *ABN* (03/29/24 11:53 AM) Invalid Interpretation Code Negative AO Auto Urine SS UA Nitrite Negative (03/29/24 11:53 AM) Normal Negative AO Auto Urine SS UA pH 7.0 (03/29/24 11:53 AM) Normal 5.0 - 8.0 AO Auto Urine SS UA Protein 30 mg/dL Normal Negative AO Auto Urine SS UA RBC 0-5 /HPF Invalid Interpretation Code None Seen AO Auto Urine SS UA Spec Grav 1.020 (03/29/24 11:53 AM) Normal 1.015-1.025 AO Auto Urine SS UA Specimen Type Clean Catch (03/29/24 11:53 AM) Normal AO Auto Urine SS UA Squam Epithelial LOADED /HPF Invalid Interpretation Code None Seen AO Auto Urine SS UA Urobilinogen >=8.0 E.U./dL Invalid Interpretation Code 0.2-1.0 AO Auto Urine SS WBC LM.HPF (Urine sed) [#/Area] LOADED /HPF Invalid Interpretation Code None Seen AO Auto Urine SS BE Venous 2.4 mmol/L Normal -3.0 - 3.0 mmol/L AO Rapid Comm SS CO2 [Moles/Vol] 27.9 mmol/L Normal 22.0 - 32.0 mmol/L AO Rapid Comm SS HCO3 (Bld) [Moles/Vol] 26.7 mmol/L Normal 21.0 - 30.0 mmol/L AO Rapid Comm SS pCO2 Silvino 40.2 mm[Hg] Low 41.0 - 51.0 mm Hg AO Rapid Comm SS pH (Bld) 7.440 [pH] Normal 7.380 - 7.460 AO Rapid Comm SS pO2 Silv[place] 56.1 mm[Hg] High 35.0 - 40.0 mm Hg AO Rapid Comm SS FLUAV RNA GUNJAN+probe Ql (Resp) Negative (03/29/24 10:28 AM) Normal Negative AO Auto Urine SS FLUBV RNA GUNJAN+probe Ql (Resp) Negative (03/29/24 10:28 AM) Normal Negative AO Auto Urine SS RSV RNA GUNJAN+probe Ql (Resp) Negative (03/29/24 10:28 AM) Normal Negative AO Auto Urine SS SARS-CoV-2 (COVID-19) RNA GUNJAN+probe Ql (Resp) Negative 6 (03/29/24 10:28 AM) Normal Negative AO Auto Urine SS Comment on above: Interpretive Data: R esults from the Xpert Xpress CoV-2/Flu/RSV plus test should be correlated with the clinical history, epidemiological data, and other data available to the clinical evaluating the patient. Performance of the Xpert Xpress CoV-2/Flu/RSV plus test has only been established in nasopharyngeal swab specimen. Erroneous test results might occur from improper specimen collection, failure to follow the recommended sample collection, handling and storage procedures, technical error, or sample mix-up. False negative results may occur if a virus is present at a level below the analytical limit of detection. Viral nucleic acid may persist in vivo, independent of virus viability. Detection of analyte target(s) does not imply that the corresponding virus(es) are infectious or are the causative agents for clinical symptoms. Recent patient exposure to FluMist or other live attenuated influenza vaccines may cause inaccurate positive results. LABORATORYOrdered By: SYSTEM SYSTEM on 03-29-2024 Albumin BCP dye [Mass/Vol] 3.3 G/dL Low 3.5 - 5.0 G/dL AO ADM SS Albumin/Globulin [Mass ratio] 1.3 {ratio} Normal 1.1 - 2.5 ratio AO ADM SS ALP [Catalytic activity/Vol] 107 U/L Normal 40 - 135 U/L AO ADM SS ALT With P-5'-P [Catalytic activity/Vol] 24 U/L Normal 14 - 59 U/L AO ADM SS Anisocytosis Ql (Bld) 1+ *NA* (03/29/24 10:28 AM) Invalid Interpretation Code AO Workflow SS AST With P-5'-P [Catalytic activity/Vol] 11 U/L Normal 10 - 40 U/L AO ADM SS Basophils (Bld) [#/Vol] 0.0 103/mcL Normal 0.0 - 0.2 10^3/mcL AO Workflow SS Basophils/100 WBC (Bld) 0.1 % Normal 0.0 - 2.5 % AO Workflow SS Bilirubin [Mass/Vol] 0.7 mg/dL Normal 0.2 - 1 .0 mg/dL AO ADM SS Comment on above: Interpretive Data: U se of this assay is not recommended for patients undergoing treatment with eltrombopag due to the potential for falsely elevated results. Calcium [Mass/Vol] 8.8 mg/dL Normal 8.4 - 10. 2 mg/dL AO ADM SS Chloride [Moles/Vol] 100 mmol/L Normal 98 - 10 7 mmol/L AO ADM SS CO2 [Moles/Vol] 32 mmol/L High 22 - 29 mmol/L AO ADM SS Creatinine [Mass/Vol] 0.80 mg/dL Normal 0.55 - 1.02 mg/dL AO ADM SS Comment on above: Interpretive Data: T esting performed on Siemens Dimension EXL analyzer using a modified kinetic Myrtle technique. Dacrocytes LM Ql (Bld) 1+ *NA* (03/29/24 10:28 AM) Invalid Interpretation Code AO Workflow SS Electrolyte Balance 6.0 mEq/L Normal 4.0 - 15 .0 mEq/L AO ADM SS Eosinophil, Absolute 0.0 103/mcL Normal 0.0 - 0 .7 10^3/mcL AO Workflow SS Eosinophils/100 WBC (Bld) 0.2 % Normal 0.0 - 7.0 % AO Workflow SS Erythrocyte distribution width (RBC) [Ratio] 18.5 % High 11.5 - 15.5 % AO Workflow SS GFR/1.73 sq M.predicted among blacks MDRD (S/P/Bld) [Vol rate/Area] 101 ml/min/1.73sqm Invalid Interpretation Code AO Chemistry S Comment on above: Interpretive Data: GFR Population mean for , Non- Americans Ages 20-29 = 116 mL/min/1.73 sq.m. Ages 30-39 = 107 mL/min/1.73 sq.m. Ages 40-49 = 99 mL/min/1.73 sq.m. Ages 50-59 = 93 mL/min/1.73 sq.m. Ages 60-69 = 85 mL/min/1.73 sq.m. Ages 70+ = 75 mL/min/1.73 sq.m. Chronic Kidney Disease: Less than 60 mL/min/1.73 square meters End Stage Renal Disease: Less than 15 mL/min/1.73 square meters GFR/1.73 sq M.predicted among non-blacks MDRD (S/P/Bld) [Vol rate/Area] 84 ml/min/1.73sqm Invalid Interpretation Code AO Chemistry S Comment on above: Interpretive Data: GFR Population mean for , Non- Americans Ages 20-29 = 116 mL/min/1.73 sq.m. Ages 30-39 = 107 mL/min/1.73 sq.m. Ages 40-49 = 99 mL/min/1.73 sq.m. Ages 50-59 = 93 mL/min/1.73 sq.m. Ages 60-69 = 85 mL/min/1.73 sq.m. Ages 70+ = 75 mL/min/1.73 sq.m. Chronic Kidney Disease: Less than 60 mL/min/1.73 square meters End Stage Renal Disease: Less than 15 mL/min/1.73 square meters Globulin 2.5 G/dL Invalid Interpretation Code AO ADM SS Glucose [Mass/Vol] 117 mg/dL High 70 - 105 mg/dL AO ADM SS Hematocrit (Bld) [Volume fraction] 38.3 % Normal 34.0 - 46.0 % AO Workflow SS Hemoglobin (Bld) [Mass/Vol] 11.5 G/dL Low 12.0 - 16.0 G/dL AO Workflow SS Hypochromia Ql (Bld) 1+ *NA* (03/29/24 10:28 AM) Invalid Interpretation Code AO Workflow SS INR Coag (PPP) [Relative time] 1.2 {INR} Invalid Interpretation Code AO HemoHub SS Comment on above: Interpretive Data: Teresa armendariz [employer] (CHEST, 1991, 102:312S-25S) recommended therapeutic range for oral anticoagulant therapy is: LOW RISK: Prophylaxis of venous thrombosis INR: 2.0-3.0 Treatment of pulmonary embolism 2.0-3.0 Prevention of systemic embolism 2.0-3.0 HIGH RISK: Mechanical prosthetic valves 2.5-3.5 Lactate [Moles/Vol] 0.9 mmol/L Normal 0.4 - 2. 0 mmol/L AO ADM SS Lymphocytes (Bld) [#/Vol] 1.4 103/mcL Normal 0.9 - 4.3 10^3/mcL AO Workflow SS Lymphocytes/100 WBC (Bld) 9.8 % Low 20.0 - 40.0 % AO Workflow SS MCH (RBC) [Entitic mass] 20.6 pg Low 27.0 - 33.0 pg AO Workflow SS MCHC 30.1 G/dL Low 32.0 - 36.0 G/dL AO Workflow SS MCV (RBC) [Entitic vol] 68.6 fL Low 80.0 - 99.0 fL AO Workflow SS Microcytes Ql (Bld) 2+ *NA* (03/29/24 10:28 AM) Invalid Interpretation Code AO Workflow SS Monocyte distribution width Auto (Bld) [Entitic vol] Not Performed 1 *NA* (03/29/24 10:28 AM) Invalid Interpretation Code 0.00 - 20.00 AO Hematology S Comment on above: Result Comment: MDW testing performed only on adult ER patients between the ages of 18-89 years. Monocytes (Bld) [#/Vol] 1.0 103/mcL Normal 0.1 - 1.4 10^3/mcL AO Workflow SS Monocytes/100 WBC (Bld) 6.8 % Normal 2.0 - 13.0 % AO Workflow SS Natriuretic peptide.B prohormone N-Terminal [Mass/Vol] 167 pg/mL High 0 - 125 pg/mL AO ADM SS Comment on above: Interpretive Data: N T-proBNP results of less than 300 pg/mL effectively rules out acute congestive heart failure with 99% negative predictive value. Neutrophils (Bld) [#/Vol] 12.0 103/mcL High 2.3 - 8.1 10^3/mcL AO Workflow SS Neutrophils/100 WBC (Bld) 83.1 % High 50.0 - 75.0 % AO Workflow SS Ovalocytes LM Ql (Bld) 1+ *NA* (03/29/24 10:28 AM) Invalid Interpretation Code AO Workflow SS Platelet mean volume (Bld) [Entitic vol] 7.7 fL Normal 6.6 - 10.5 fL AO Workflow SS Platelets (Bld) [#/Vol] 257 103/mcL Normal 150 - 450 10^3/mcL AO Workflow SS Platelets LM Ql (Bld) Normal *NA* (03/29/24 10:28 AM) Invalid Interpretation Code AO Workflow SS Poikilocytosis LM Ql (Bld) 1+ *NA* (03/29/24 10:28 AM) Invalid Interpretation Code AO Workflow SS Potassium [Moles/Vol] 4.4 mmol/L Normal 3.5 - 5.1 mmol/L AO ADM SS Protein [Mass/Vol] 5.8 G/dL Low 6.4 - 8.2 G/dL AO ADM SS PT Coag (PPP) [Time] 13.9 s Normal 9.0 - 1 4.4 seconds AO [facility] SS RBC (Bld) [#/Vol] 5.58 106/mcL High 4.10 - 5.3 0 10^6/mcL AO Workflow SS Sodium [Moles/Vol] 138 mmol/L Normal 136 - 145 mmol/L AO ADM SS Urea nitrogen [Mass/Vol] 7 mg/dL Normal 7 - 18 mg/dL AO ADM SS Urea nitrogen/Creatinine [Mass ratio] 9 ratio Normal 7 - 27 ratio AO ADM SS WBC (Bld) [#/Vol] 14.8 103/mcL High 4.5 - 10.8 10^3/mcL AO Workflow SS LACon 03-29-2024 Lactic Acid Lvl 0.9 mmol/L Normal 0.4-2.0 [facility] Comment on above: Performed By: #### L AC, ANEU, CBC, MORPH, PBNP, CMP, GFR, ADIFF, PRO, MDW #### [address] [address] No Panel Informationon 03-29 Microscopic examination of blood, culture Culture has been received in lab and is no growth to date. Routine cultures are held for 5 days. [facility] PBNPon 03-29-2024 Natriuretic peptide B (Bld) [Mass/Vol] 167 pg/mL High 0-125 [facility] Comment on above: Result Comment: NT-p roBNP results of less than 300 pg/mL effectively rules out acute congestive heart failure with 99% negative predictive value. Performed By: #### L AC, ANEU, CBC, MORPH, PBNP, CMP, GFR, ADIFF, PRO, MDW #### [place] [address] PREGUon 03-29-2024 HCG ( test) Ql (U) Negative Normal [facility] Comment on above: Performed By: #### P REGU #### [place] [address] test (u) int Not detected Invalid Interpretation Code [facility] Comment on above: Performed By: #### P REGU #### [place] [address] PROon 03-29-2024 PT Coag (PPP) [Time] 13.9 s Normal 9.0-14.4 [facility] Comment on above: Performed By: #### L AC, ANEU, CBC, MORPH, PBNP, CMP, GFR, ADIFF, PRO, MDW #### [place] [address] PT International Ratio 1.2 Normal [facility] Comment on above: Result Comment: [employer] (CHEST, 1992, 102:312S-25S) recommended therapeutic range for oral anticoagulant therapy is: LOW RISK: Prophylaxis of venous thrombosis INR: 2.0-3.0 Treatment of pulmonary embolism 2.0-3.0 Prevention of systemic embolism 2.0-3.0 HIGH RISK: Mechanical prosthetic valves 2.5-3.5 Performed By: #### L AC, ANEU, CBC, MORPH, PBNP, CMP, GFR, ADIFF, PRO, MDW #### [address] [address] UAon 03-29-2024 Color (U) Yellow Normal [facility] Comment on above: Performed By: #### V BG #### [address] [address] Glucose (U) [Mass/Vol] Negative Normal Negative [facility] Comment on above: Performed By: #### V BG #### [address] [address] Ketones Ql (U) 80 mg/dL Abnormal Negative [facility] Comment on above: Performed By: #### V BG #### [address] [address] UA Appear Clear Normal Clear [facility] Comment on above: Performed By: #### V BG #### [address] [address] UA Bili Small Abnormal Negative [facility] Comment on above: Performed By: #### V BG #### [address] [address] UA Blood Trace Abnormal Negative [facility] Comment on above: Performed By: #### V BG #### [address] [address] UA Leuk Est Large Abnormal Negative [facility] Comment on above: Performed By: #### V BG #### [address] [address] UA Nitrite Negative Normal Negative [facility] Comment on above: Performed By: #### V BG #### [address] [address] UA pH 7.0 Normal 5.0 - 8.0 [facility] Comment on above: Performed By: #### V BG #### [address] [address] UA Protein 30 mg/dL Normal Negative [facility] Comment on above: Performed By: #### V BG #### [address] [address] UA Spec Grav 1.020 Normal 1.015-1.025 [facility] Comment on above: Performed By: #### V BG #### [address] [address] UA Specimen Type Clean Catch Normal [facility] Comment on above: Performed By: #### V BG #### [address] [address] UA Urobilinogen >=8.0 Abnormal 0.2-1.0 [facility] Comment on above: Performed By: #### V BG #### [address] [address] VBGon 03-29-2024 BE Venous 2.4 mmol/L Normal -3.0-3.0 [facility] Comment on above: Performed By: #### V BG #### [place] [id number] CO2 [Moles/Vol] 27.9 mmol/L Normal 22.0-32.0 [facility] Comment on above: Performed By: #### V BG #### [address] [address] HCO3 (Bld) [Moles/Vol] 26.7 mmol/L Normal 21.0-30.0 [facility] Comment on above: Performed By: #### V BG #### [address] [address] Oxygen saturation in Blood 90.7 % High 70.0-75.0 [facility] Comment on above: Performed By: #### V BG #### [address] [address] pCO2 Silvino 40.2 mmHg Low 41.0-51.0 [facility] Comment on above: Performed By: #### V BG #### [address] [address] pH Venous 7.440 Normal 7.380-7.460 [facility] Comment on above: Performed By: #### V BG #### [facility] [address] [place], [place] [address] pO2 Silvino 56.1 mmHg High 35.0-40.0 [facility] Comment on above: Performed By: #### V #### [place] [address] [place], [place] [address] XR CHEST 1 VIEWon 03-29-2024 XR CHEST 1 VIEW ORIGINAL EXAMINATION: ONE XRAY VIEW OF THE CHEST 03/29/2024 10:59 am COMPARISON: December 12, 2021 HISTORY: ORDERING SYSTEM PROVIDED HISTORY: Reason for Exam: pain/fever FINDINGS: The heart is normal in size and there is no vascular congestion present. There is a small to moderate left pleural effusion with adjacent infiltrate or atelectasis. Right lung is clear. No acute osseous finding. IMPRESSION: Small to moderate left pleural effusion with adjacent atelectasis or infiltrate. Follow-up recommended. Interpreted by: Luan Hi MD Preliminary Report By: Luan Hi MD Electronically signed By Luan Hi MD Dictated Date: 03/29/2024 11:17:58 AM Prelim Date: 03/29/2024 11:18:28 AM Sign Date: 03/29/2024 11:18:28 AM Ordering Provider: SANDEE Heaton [facility] STREP A MOLECULAR (POC)on Procedural Control Valid [facility] Strep A (POCT) Negative Negative [facility] CBC W Auto Differential pane l (Bld)on 06-30-2023 Basophils (Bld) [#/Vol] 0.03 10*3/uL <0.11 k/uL [facility] Basophils/100 WBC (Bld) 0.3 % C [facility] Differential cell count method Nom (Bld) Auto [facility] Eosinophils (Bld) [#/Vol] 0.16 10*3/uL <0.46 k/uL [facility] Eosinophils/100 WBC (Bld) 1.5 % [facility] Erythrocyte distribution width (RBC) [Ratio] 19.2 % High 11.5 - 15.0 % [facility] Hematocrit (Bld) [Volume fraction] 47.6 % High 36.0 - 46.0 % [facility] Hemoglobin (Bld) [Mass/Vol] 12.8 g/dL 11.5 - 15.5 g/dL [facility] Immature granulocytes (Bld) [#/Vol] 0.04 10*3/uL <0.10 k/uL [facility] Immature granulocytes/100 WBC (Bld) 0.4 % [facility] Lymphocytes (Bld) [#/Vol] 2.83 10*3/uL 1.00 - 4.00 k/uL [facility] Lymphocytes/100 WBC (Bld) 27.1 % [facility] MCH (RBC) [Entitic mass] 19.5 pg Low 26.0 - 34.0 pg [facility] MCHC (RBC) [Mass/Vol] 26.9 g/dL Low 30.5 - 36.0 g/dL [facility] MCV (RBC) [Entitic vol] 72.6 fL Low 80.0 - 100.0 fL [facility] Monocytes (Bld) [#/Vol] 0.78 10*3/uL <0.87 k/uL [facility] Monocytes/100 WBC (Bld) 7.5 % [facility] Neutrophils (Bld) [#/Vol] 6.62 10*3/uL 1.45 - 7.50 k/uL [facility] Neutrophils/100 WBC (Bld) 63.2 % [facility] Nucleated RBC (Bld) [#/Vol] <0.01 k/uL [facility] Nucleated RBC/100 WBC (Bld) [Ratio] 0.0 /100 WBC [facility] Platelet mean volume (Bld) [Entitic vol] 10.1 fL 9.0 - 12.7 fL [facility] Platelets (Bld) [#/Vol] 331 10*3/uL 150 - 400 k/uL [facility] RBC (Bld) [#/Vol] 6.56 10*6/uL High 3.90 - 5.2 0 m/uL [facility] WBC (Bld) [#/Vol] 10.46 10*3/uL 3.70 - 11.00 k/uL [facility] UA DIP, URINE (POC)on 2022 BILIRUBIN UA (POCT) Negative Negative [facility] CLARITY UA (POCT) Slightly Cloudy Cl [facility] COLOR UA (POCT) Yellow [facility] GLUCOSE UA (POCT) Negative Negative mg/dL [facility] Hemoglobin Ql (U) Small Abnormal Negative [facility] KETONE UA (POCT) Negative Negative mg/dL [facility] LEUKOCYTES UA (POCT) Large [facility]normal [facility] NITRITE UA (POCT) Negative Negative [facility] PH UA (POCT) 8.0 4.5 - 8.0 [facility] Protein Ql (U) Negative Negative mg/dL [facility] SPECIFIC GRAVITY UA (POCT) 1.015 1.005 - 1.030 [facility] UROBILINOGEN UA (POCT) 0.2 E.U./dL Bria l E.U./dL [facility] US DUP LOWER EXTREMITIES DEYA ATERAL VENOUSon 06-03-2022 US DUP LOWER EXTREMITIES BILATERAL VENOUS EXAMINATION: DUPLEX VENOUS ULTRASOUND OF THE BILATERAL LOWER EXTREMITIES06/03/2022 1:55 pm TECHNIQUE: Duplex ultrasound using B-mode/ness scaled imaging, Doppler spectral analysis and color flow Doppler was obtained of the deep venous structures of the lower bilateral extremities. COMPARISON: None. HISTORY: ORDERING SYSTEM PROVIDED HISTORY: Bilateral lower extremity edema TECHNOLOGIST PROVIDED HISTORY: Reason for exam:->R>L LE swelling What reading provider will be dictating this exam?->CRC FINDINGS: Limitations: Not able to visualize the peroneal veins on either side. Unable to visualize the posterior tibial veins in the right leg. Unable to visualize the anterior tibial vein in the left leg. The remaining visualized veins of the bilateral lower extremities are patent and free of echogenic thrombus. The veins demonstrate good compressibility with normal color flow study and spectral analysis. IMPRESSION: No evidence of DVT in either lower extremity given the limitations described. Interpreted by: Evans Louis DO Signed by: Evans Louis DO 06/03/22 Final result Normal [facility] Comment on above: Order Comment: Reaso n for exam:->R>L LE swelling What reading provider will be dictating this exam?->CRC No evidence of DVT in either lower extremity given the limitations described. [facility] RIS CONSOLIDATED EXAMINATION: DUPLEX VENOUS ULTRASOUND OF THE BILATERAL LOWER EXTREMITIES06/03/2022 1:55 pm TECHNIQUE: Duplex ultrasound using B-mode/ness scaled imaging, Doppler spectral analysis and color flow Doppler was obtained of the deep venous structures of the lower bilateral extremities. COMPARISON: None. HISTORY: ORDERING SYSTEM PROVIDED HISTORY: Bilateral lower extremity edema TECHNOLOGIST PROVIDED HISTORY: Reason for exam:->R>L LE swelling What reading provider will be dictating this exam?->CRC FINDINGS: Limitations: Not able to visualize the peroneal veins on either side. Unable to visualize the posterior tibial veins in the right leg. Unable to visualize the anterior tibial vein in the left leg. The remaining visualized veins of the bilateral lower extremities are patent and free of echogenic thrombus. The veins demonstrate good compressibility with normal color flow study and spectral analysis. [facility] RIS CONSOLIDATED Evans Louis, DO - 06/03/2022 EXAMINATION: DUPLEX VENOUS ULTRASOUND OF THE BILATERAL LOWER EXTREMITIES06/03/2022 1:55 pm TECHNIQUE: Duplex ultrasound using B-mode/ness scaled imaging, Doppler spectral analysis and color flow Doppler was obtained of the deep venous structures of the lower bilateral extremities. COMPARISON: None. HISTORY: ORDERING SYSTEM PROVIDED HISTORY: Bilateral lower extremity edema TECHNOLOGIST PROVIDED HISTORY: Reason for exam:->R>L LE swelling What reading provider will be dictating this exam?->CRC FINDINGS: Limitations: Not able to visualize the peroneal veins on either side. Unable to visualize the posterior tibial veins in the right leg. Unable to visualize the anterior tibial vein in the left leg. The remaining visualized veins of the bilateral lower extremities are patent and free of echogenic thrombus. The veins demonstrate good compressibility with normal color flow study and spectral analysis. IMPRESSION: No evidence of DVT in either lower extremity given the limitations described. [employer] Phone: Radiology Study observation (narrative) [employer] Phone: US DUP LOWER EXTREMITIES DEYA ATERAL VENOUSOrdered By: Evans Louis on 06-03-2022 [facility] [employer] Phone: BNPon 05-20-2022 Natriuretic peptide B (Bld) [Mass/Vol] 74 pg/mL Normal 0-125 [facility] CBC With Platelet and Differ entialon 05-20-2022 Absolute Basophils 0.00 E9/L Normal 0.00-0.20 [facility] Absolute Eosinophils 0.00 E9/L Low 0.05-0.50 [facility] Absolute Lymphocytes 2.15 E9/L Normal 1.50-4.00 [facility] Absolute Monocytes 0.68 E9/L Normal 0.10-0.95 [facility] Absolute Neutrophils 8.48 E9/L High 1.80-7.30 [facility] Anisocytosis Ql (Bld) 1+ Normal [facility] Basophils/100 WBC (Bld) 0.1 % Normal 0.0-2.0 [facility] Eosinophils/100 WBC (Bld) 0.0 % Normal 0.0-6.0 [facility] Lymphocytes/100 WBC (Bld) 18.7 % Low 20.0-42.0 [facility] Metamyelocytes 3.4 % High 0.0-1.0 [facility] Monocytes/100 WBC (Bld) 5.9 % Normal 2.0-12.0 [facility] Neutrophils/100 WBC (Bld) 72.0 % Normal 43.0-80.0 [facility] Ovalocytes 2+ Normal [facility] Poikilocytosis 2+ Normal [facility] Polychromasia 1+ Normal [facility] Tear Drop Cells 2+ Normal [facility] Hematocrit (Bld) [Volume fraction] 42.1 % Normal 34.0-48.0 [facility] Hemoglobin (Bld) [Mass/Vol] 11.5 g/dL Normal 11.5-15.5 [facility] MCH (RBC) [Entitic mass] 19.6 pg Low 26.0-35.0 [facility] MCHC 27.3 % Low 32.0-34.5 [facility] MCV (RBC) [Entitic vol] 71.6 fL Low 80.0-99.9 [facility] Platelet Count 360 E9/L Normal 130-450 [facility] Platelet mean volume (Bld) [Entitic vol] 10.1 fL Normal 7.0-12.0 [facility] RBC 5.88 E12/L High 3.50-5.50 [facility] RDW 19.7 fL High 11.5-15.0 [facility] WBC 11.3 E9/L Normal 4.5-11.5 [facility] Comprehensive Metabolic Pane stuart 05-20-2022 Albumin [Mass/Vol] 4.1 g/dL Normal 3.5-5.2 [facility] ALP [Catalytic activity/Vol] 108 U/L High 35-104 [facility] ALT [Catalytic activity/Vol] 9 U/L Normal 0-32 [facility] Anion gap [Moles/Vol] 13 mmol/L Normal 7-16 [facility] AST [Catalytic activity/Vol] 18 U/L Normal 0-31 [facility] Bilirubin [Mass/Vol] 0.3 mg/dL Normal 0.0-1.2 [facility] Calcium [Mass/Vol] 9.1 mg/dL Normal 8.6-10.2 [facility] Chloride [Moles/Vol] 102 mmol/L Normal 98-107 [facility] CO2 [Moles/Vol] 27 mmol/L Normal 22-29 [facility] Creatinine [Mass/Vol] 0.7 mg/dL Normal 0.5-1.0 [facility] GFR Calculated >60 Normal >=60 [facility] Comment on above: Result Comment: Robbie atric calculator link https://www.kidney.org/professionals/kdoqi/gfr_calculatorped Effective Feb 07, 2022 These results are not intended for use in patients <18 years of age. eGFR results are calculated without a race factor using the 2020 CKD-EPI equation. Careful clinical correlation is recommended, particularly when comparing to results calculated using previous equations. The CKD-EPI equation is less accurate in patients with extremes of muscle mass, extra-renal metabolism of creatinine, excessive creatinine ingestion, or following therapy that affects renal tubular secretion. Glucose [Mass/Vol] 93 mg/dL Normal 74-99 [facility] Potassium [Moles/Vol] 4.5 mmol/L Normal 3.5-5.0 [facility] Protein [Mass/Vol] 6.6 g/dL Normal 6.4-8.3 [facility] Sodium [Moles/Vol] 142 mmol/L Normal 132-146 [facility] Urea nitrogen [Mass/Vol] 7 mg/dL Normal 6-20 [facility] MYCOon 12-16-2021 Mycoplasma IgG equiv Normal [facility] ([place]) Comment on above: Result Comment: INTE RPRETATION OF MYCOPLASMA BY EIA (Effective 05/13/04): Negative No detectable antibodies to M. pneumoniae. Indicates absence of current or previous infection. Positive Reactive for antibodies to M. pneumoniae. Indicates a past or recent infection. Equivocal Equivocal for antibodies to M. pneumoniae. Repeat testing by an alternate method suggested. Performed By: #### G , SJ #### [address] [address] .GFRon 12-14-2021 GFR >60 [facility] Comment on above: Result Comment: GFR Population mean for , Non- Americans Ages 20-29 = 116 mL/min/1.73 sq.m. Ages 30-39 = 107 mL/min/1.73 sq.m. Ages 40-49 = 99 mL/min/1.73 sq.m. Ages 50-59 = 93 mL/min/1.73 sq.m. Ages 60-69 = 85 mL/min/1.73 sq.m. Ages 70+ = 75 mL/min/1.73 sq.m. Chronic Kidney Disease: Less than 60 mL/min/1.73 square meters End Stage Renal Disease: Less than 15 mL/min/1.73 square meters Performed By: #### G , BMP #### [address] [address] GFR Non- >60 Normal [facility] ([place]) Comment on above: Result Comment: GFR Population mean for , Non- Americans Ages 20-29 = 116 mL/min/1.73 sq.m. Ages 30-39 = 107 mL/min/1.73 sq.m. Ages 40-49 = 99 mL/min/1.73 sq.m. Ages 50-59 = 93 mL/min/1.73 sq.m. Ages 60-69 = 85 mL/min/1.73 sq.m. Ages 70+ = 75 mL/min/1.73 sq.m. Chronic Kidney Disease: Less than 60 mL/min/1.73 square meters End Stage Renal Disease: Less than 15 mL/min/1.73 square meters Performed By: #### Terrell KNIGHT, BMP #### [address] [address] BMPon 12-14-2021 CO2 [Moles/Vol] mmol/L Critically abnormal 22-32 [facility] ([place]) Comment on above: Performed By: #### Terrell KNIGHT, BMP #### [address] [address] Electrolyte Balance Unable to Calculate Normal 4.0-15. 0 [facility] ([place]) Comment on above: Result Comment: Unab le to calculate this test result accurately. Results used to calculate this test are outside the reportable range. Performed By: #### Terrell KNIGHT, BMP #### [address] [address] BUN/Creatinine Ratio 20.8 ratio Normal 10.0-22.0 [facility] Comment on above: Performed By: #### Terrell KNIGHT, BMP #### [address] [address] Calcium [Mass/Vol] 8.8 mg/dL Normal 8.7-10.4 [facility] ([place]) Comment on above: Performed By: #### Terrell KNIGHT, BMP #### [address] [address] Chloride [Moles/Vol] 97 mmol/L Low 98-110 [facility] Comment on above: Performed By: #### Terrell KNIGHT, BMP #### [address] [address] Creatinine [Mass/Vol] 0.72 mg/dL Normal 0.50-1.20 [facility] ([place]) Comment on above: Performed By: #### Terrell KNIGHT, BMP #### [address] [address] Glucose [Mass/Vol] 80 mg/dL Normal 70-110 [facility] ([place]) Comment on above: Performed By: #### G , BMP #### [address] [address] Potassium [Moles/Vol] 4.0 mmol/L Normal 3.5-5.0 [facility] ([place]) Comment on above: Performed By: #### G , BMP #### [address] [address] Sodium [Moles/Vol] 145 mmol/L Normal 136-145 [facility] ([place]) Comment on above: Performed By: #### Terrell KNIGHT, BMP #### [address] [address] Urea nitrogen [Mass/Vol] 15.0 mg/dL Normal 8.0-22.0 [facility] ([place]) Comment on above: Performed By: #### Terrell KNIGHT, BMP #### [address] [address] LABORATORYOrdered By: SYSTEM SYSTEM on 12-14-2021 Calcium [Mass/Vol] 8.8 mg/dL Invalid Interpretation Code 8.7 - 10.4 mg/dL ADM SS Chloride [Moles/Vol] 97 mmol/L Invalid Interpretation Code 98 - 110 mEq/L ADM SS Creatinine [Mass/Vol] 0.72 mg/dL Invalid Interpretation Code 0.50 - 1.20 mg/dL ADM SS GFR/1.73 sq M.predicted among blacks MDRD (S/P/Bld) [Vol rate/Area] ml/min/1.73sqm Invalid Interpretation Code Chemistry S GFR/1.73 sq M.predicted among non-blacks MDRD (S/P/Bld) [Vol rate/Area] ml/min/1.73sqm Invalid Interpretation Code Chemistry S Glucose [Mass/Vol] 80 mg/dL Invalid Interpretation Code 70 - 110 mg/dL ADM SS Potassium [Moles/Vol] 4.0 mmol/L Invalid Interpretation Code 3.5 - 5.0 mEq/L ADM SS Sodium [Moles/Vol] 145 mmol/L Invalid Interpretation Code 136 - 145 mEq/L ADM SS Urea nitrogen [Mass/Vol] 15.0 mg/dL Invalid Interpretation Code 8.0 - 22.0 mg/dL ADM SS Urea nitrogen/Creatinine [Mass ratio] 20.8 ratio Invalid Interpretation Code 10.0 - 22.0 ratio ADM SS LABORATORYOrdered By: Karissa forte on 12-14-2021 CO2 [Moles/Vol] mEq/L Invalid Interpretation Code 22 - 32 mEq/L Chemistry S Comment on above: Result Comment: .. Electrolyte Balance Unable to Calculate Invalid Interpretation Code 4.0 - 15.0 Chemistry S Comment on above: Result Comment: Unab le to calculate this test result accurately. Results used to calculate this test are outside the reportable range. MYCOon 12-14-2021 Mycoplasma IgM Negative Normal [facility] ([place]) Comment on above: Result Comment: INTE RPRETATION OF MYCOPLASMA BY EIA (Effective 05/13/04): Negative No detectable antibodies to M. pneumoniae. Indicates absence of current or previous infection. Positive Reactive for antibodies to M. pneumoniae. Indicates a past or recent infection. Equivocal Equivocal for antibodies to M. pneumoniae. Repeat testing by an alternate method suggested. Performed By: #### G , BMP #### [address] [address] .Auto Diffon 12-13-2021 Basophil, Absolute 0.0 10 3/mcL Normal 0.0-0.3 [facility] [facility] [place] Comment on above: Performed By: #### G FR, BMP #### [address] [address] Basophils/100 WBC (Bld) 0.0 % Normal 0.0-2.5 [facility] ([place]) Comment on above: Performed By: #### G FR, BMP #### [address] [address] Eosinophil, Absolute 0.0 10 3/mcL Normal 0.0-0.7 [facility] ([place]) Comment on above: Performed By: #### G FR, BMP #### [address] [address] Eosinophils/100 WBC (Bld) 0.0 % Normal 0.0-6.0 [facility] ([place]) Comment on above: Performed By: #### G FR, BMP #### [address] [address] Lymphocyte, Absolute 1.0 10 3/mcL Normal 0.9-4.3 [facility] ([place]) Comment on above: Performed By: #### G FR, BMP #### [address] [address] Lymphocytes/100 WBC (Bld) 12.2 % Low 20.0-40.0 [facility] ([place]) Comment on above: Performed By: #### G FR, BMP #### [address] [address] Monocyte, Absolute 0.3 10 3/mcL Normal 0.1-1.4 [facility] [place]: Performed By: #### G FR, BMP #### [address] [address] Monocytes/100 WBC (Bld) 3.8 % Normal 2.0-13.0 [facility] ([place]) Comment on above: Performed By: #### G FR, BMP #### [address] [address] Neutrophils/100 WBC (Bld) 84.0 % High 50.0-75.0 [facility] ([place]) Comment on above: Performed By: #### G FR, BMP #### [address] [address] .GFRon 12-13-2021 GFR >60 Normal [facility] [place] Comment on [place]: Result Comment: GFR Population mean for , Non- Americans Ages 20-29 = 116 mL/min/1.73 sq.m. Ages 30-39 = 107 mL/min/1.73 sq.m. Ages 40-49 = 99 mL/min/1.73 sq.m. Ages 50-59 = 93 mL/min/1.73 sq.m. Ages 60-69 = 85 mL/min/1.73 sq.m. Ages 70+ = 75 mL/min/1.73 sq.m. Chronic Kidney Disease: Less than 60 mL/min/1.73 square meters End Stage Renal Disease: Less than 15 mL/min/1.73 square meters Performed By: #### Terrell KNIGHT, BMP #### [address] [address] GFR Non- >60 Normal [facility] ([place]) Comment on above: Result Comment: GFR Population mean for , Non- Americans Ages 20-29 = 116 mL/min/1.73 sq.m. Ages 30-39 = 107 mL/min/1.73 sq.m. Ages 40-49 = 99 mL/min/1.73 sq.m. Ages 50-59 = 93 mL/min/1.73 sq.m. Ages 60-69 = 85 mL/min/1.73 sq.m. Ages 70+ = 75 mL/min/1.73 sq.m. Chronic Kidney Disease: Less than 60 mL/min/1.73 square meters End Stage Renal Disease: Less than 15 mL/min/1.73 square meters Performed By: #### Terrell KNIGHT, BMP #### [address] [address] .MDWon 12-13-2021 Monocyte Distribution Width Not performed Normal 0.00-20.00 [facility] ([place]) Comment on above: Result Comment: MDW testing performed only on adult ER patients between the ages of 18-89 years. Performed By: #### Terrell KNIGHT, BMP #### [address] [address] .Morphon 12-13-2021 Platelet Estimate Normal Normal [facility] ([place]) Comment on above: Performed By: #### Terrell KNIGHT, BMP #### [address] [address] Anisocytosis Ql (Bld) 1+ Normal [facility] ([place]) Comment on above: Performed By: #### Terrell KNIGHT, BMP #### [address] [address] Hypochrom 1+ Normal [facility] ([place]) Comment on above: Performed By: #### Terrell KNIGHT, BMP #### [address] [address] Microcytosis 2+ Normal [facility] ([place]) Comment on above: Performed By: #### Terrell KNIGHT, BMP #### [address] [address] Ovalocytes 1+ Normal [facility] ([place]) Comment on above: Performed By: #### G , BMP #### [address] [address] Poik 1+ Normal [facility] ([place]) Comment on above: Performed By: #### Terrell KNIGHT, BMP #### [address] [address] .NEUABSon 12-13-2021 Neutrophil, Absolute 7.0 10 3/mcL Normal 2.3-8.1 [facility] ([place]) Comment on above: Performed By: #### Terrell KNIGHT, BMP #### [address] [address] BMPon 12-13-2021 CO2 [Moles/Vol] mmol/L Critically abnormal 22-32 [facility] ([place]) Comment on above: Performed By: #### Terrell KNIGHT, BMP #### [place] [address] Electrolyte Balance Unable to Calculate Normal 4.0-15. 0 [facility] ([place]) Comment on above: Result Comment: Unab le to calculate this test result accurately. Results used to calculate this test are outside the reportable range. Performed By: #### Terrell KNIGHT, BMP #### [address] [address] BUN/Creatinine Ratio 21.3 ratio Normal 10.0-22.0 [facility] [place]: Performed By: #### Terrell KNIGHT, BMP #### [address] [address] Calcium [Mass/Vol] 9.4 mg/dL Normal 8.7-10.4 [facility] ([place]) Comment on above: Performed By: #### Terrell KNIGHT, BMP #### Marta [address] [address] Chloride [Moles/Vol] 94 mmol/L Low 98-110 [facility] [place]: Performed By: #### Terrell KNIGHT, BMP #### Marta [address] [address] Creatinine [Mass/Vol] 0.61 mg/dL Normal 0.50-1.20 [facility] ([place]) Comment on above: Performed By: #### Terrell KNIGHT, BMP #### [address] [address] Glucose [Mass/Vol] 105 mg/dL Normal 70-110 [facility] ([place] Comment on above: Performed By: #### Terrell KNIGHT, BMP #### [address] [address] Potassium [Moles/Vol] 4.8 mmol/L Normal 3.5-5.0 [facility] ([place] Comment on above: Performed By: #### Terrell KNIGHT, BMP #### [address] [address] Sodium [Moles/Vol] 144 mmol/L Normal 136-145 [facility] ([place] Comment on above: Performed By: #### Terrell KNIGHT, BMP #### [address] [address] Urea nitrogen [Mass/Vol] 13.0 mg/dL Normal 8.0-22.0 [facility] ([place]) Comment on above: Performed By: #### Terrell KNIGHT, BMP #### [address] [address] CBCon 12-13-2021 Erythrocyte distribution width (RBC) [Ratio] 19.1 % High 11.5-15.5 [facility] ([place]) Comment on above: Performed By: #### Terrell KNIGHT, BMP #### Mart[address] [address] Hematocrit (Bld) [Volume fraction] 35.8 % Normal 34.0-46.0 [facility] ([place]) Comment on above: Performed By: #### Terrell KNIGHT, BMP #### [address] [address] Hgb 10.0 G/dL Low 12.0-16.0 [facility] ([place] Comment on above: Performed By: #### Terrell KNIGHT, BMP #### Marta [address] [address] MCH (RBC) [Entitic mass] 19.5 pg Low 27.0-33.0 [facility] ([place]) Comment on above: Performed By: #### Terrell KNIGHT, BMP #### [address] [address] MCHC 27.9 G/dL Low 32.0-36.0 [facility] ([place]) Comment on above: Performed By: #### Terrell KNIGHT, BMP #### Mart[place] [address] [address] MCV (RBC) [Entitic vol] 69.7 fL Low 80.0-99.0 [facility] ([place]) Comment on above: Performed By: #### Terrell KNIGHT, BMP #### [address] [address] Platelet 255 10 3/mcL Normal 150-450 [facility] ([place]) Comment on above: Performed By: #### Terrell KNIGHT, BMP #### [address] [address] Platelet mean volume (Bld) [Entitic vol] 7.6 fL Normal 6.6-10.5 [facility] ([place] Comment on above: Performed By: #### Terrell KNIGHT, BMP #### Mart[place] [address] [address] RBC 5.13 10 6/mcL Normal 4.10-5.30 Pending sale to [facility] ([place]) Comment on above: Performed By: #### Terrell KNIGHT, BMP #### Mart[address] [address] WBC 8.4 10 3/mcL Normal 4.5-10.8 [facility] ([place]) Comment on above: Performed By: #### Terrell KNIGHT, BMP #### [address] [place], [place] [address] LABORATORYOrdered By: SYSTEM SYSTEM on 12-13-2021 Anisocytosis Ql (Bld) 1+ *NA* (12/13/21 5:03 AM) Invalid Interpretation Code AH Workflow SS Basophils (Bld) [#/Vol] 0.0 103/mcL Invalid Interpretation Code 0.0 - 0.3 10^3/mcL AH Workflow SS Basophils/100 WBC (Bld) 0.0 % Invalid Interpretation Code 0.0 - 2.5 % AH Workflow SS Calcium [Mass/Vol] 9.4 mg/dL Invalid Interpretation Code 8.7 - 10.4 mg/dL AH ADM SS Chloride [Moles/Vol] 94 mmol/L Invalid Interpretation Code 98 - 110 mEq/L AH ADM SS Creatinine [Mass/Vol] 0.61 mg/dL Invalid Interpretation Code 0.50 - 1.20 mg/dL AH ADM SS Eosinophils (Bld) [#/Vol] 0.0 103/mcL Invalid Interpretation Code 0.0 - 0.7 10^3/mcL AH Workflow SS Eosinophils/100 WBC (Bld) 0.0 % Invalid Interpretation Code 0.0 - 6.0 % AH Workflow SS Erythrocyte distribution width (RBC) [Ratio] 19.1 % Invalid Interpretation Code 11.5 - 15.5 % AH Workflow SS GFR/1.73 sq M.predicted among blacks MDRD (S/P/Bld) [Vol rate/Area] ml/min/1.73sqm Invalid Interpretation Code Chemistry S GFR/1.73 sq M.predicted among non-blacks MDRD (S/P/Bld) [Vol rate/Area] ml/min/1.73sqm Invalid Interpretation Code Chemistry S Glucose [Mass/Vol] 105 mg/dL Invalid Interpretation Code 70 - 110 mg/dL ADM SS Hematocrit (Bld) [Volume fraction] 35.8 % Invalid Interpretation Code 34.0 - 46.0 % AH Workflow SS Hemoglobin (Bld) [Mass/Vol] 10.0 G/dL Invalid Interpretation Code 12.0 - 16.0 G/dL AH Workflow SS Hypochromia Ql (Bld) 1+ *NA* (12/13/21 5:03 AM) Invalid Interpretation Code Workflow SS Lymphocytes (Bld) [#/Vol] 1.0 103/mcL Invalid Interpretation Code 0.9 - 4.3 10^3/mcL AH Workflow SS Lymphocytes/100 WBC (Bld) 12.2 % Invalid Interpretation Code 20.0 - 40.0 % AH Workflow SS Magnesium [Mass/Vol] 2.0 mg/dL Invalid Interpretation Code 1.6 - 2.4 mg/dL AH ADM SS MCH (RBC) [Entitic mass] 19.5 pg Invalid Interpretation Code 27.0 - 33.0 pg AH Workflow SS MCHC 27.9 G/dL Invalid Interpretation Code 32.0 - 36.0 G/dL AH Workflow SS MCV (RBC) [Entitic vol] 69.7 fL Invalid Interpretation Code 80.0 - 99.0 fL Workflow SS Microcytes Ql (Bld) 2+ *NA* (12/13/21 5:03 AM) Invalid Interpretation Code Workflow SS Monocyte distribution width Auto (Bld) [Entitic vol] Not Performed 1 *NA* (12/13/21 5:03 AM) Invalid Interpretation Code 0.00 - 20.00 Hematology S Comment on above: Result Comment: MDW testing performed only on adult ER patients between the ages of 18-89 years. Monocytes (Bld) [#/Vol] 0.3 103/mcL Invalid Interpretation Code 0.1 - 1.4 10^3/mcL Workflow SS Monocytes/100 WBC (Bld) 3.8 % Invalid Interpretation Code 2.0 - 13.0 % AH Workflow SS Neutrophils (Bld) [#/Vol] 7.0 103/mcL Invalid Interpretation Code 2.3 - 8.1 10^3/mcL Workflow SS Neutrophils/100 WBC (Bld) 84.0 % Invalid Interpretation Code 50.0 - 75.0 % AH Workflow SS Ovalocytes LM Ql (Bld) 1+ *NA* (12/13/21 5:03 AM) Invalid Interpretation Code Workflow SS Platelet mean volume (Bld) [Entitic vol] 7.6 fL Invalid Interpretation Code 6.6 - 10.5 fL AH Workflow SS Platelets (Bld) [#/Vol] 255 103/mcL Invalid Interpretation Code 150 - 450 10^3/mcL Workflow SS Platelets LM Ql (Bld) Normal *NA* (12/13/21 5:03 AM) Invalid Interpretation Code AH Workflow SS Poikilocytosis LM Ql (Bld) 1+ *NA* (12/13/21 5:03 AM) Invalid Interpretation Code Workflow SS Potassium [Moles/Vol] 4.8 mmol/L Invalid Interpretation Code 3.5 - 5.0 mEq/L AH ADM SS RBC (Bld) [#/Vol] 5.13 106/mcL Invalid Interpretation Code 4.10 - 5.30 10^6/mcL Workflow SS Sodium [Moles/Vol] 144 mmol/L Invalid Interpretation Code 136 - 145 mEq/L AH ADM SS Urea nitrogen [Mass/Vol] 13.0 mg/dL Invalid Interpretation Code 8.0 - 22.0 mg/dL AH ADM SS Urea nitrogen/Creatinine [Mass ratio] 21.3 ratio Invalid Interpretation Code 10.0 - 22.0 ratio AH ADM SS WBC 8.4 103/mcL Invalid Interpretation Code 4.5 - 10.8 10^3/mcL Workflow SS LABORATORYOrdered By: Beatrice Sow on 12-13-2021 Base excess Calc (BldV) [Moles/Vol] 13.6 mmol/L Invalid Interpretation Code -3.0 - 3.0 mmol/L Auto Chem SS CO2 (BldV) [Partial pressure] 68.4 mm[Hg] Invalid Interpretation Code 41.0 - 51.0 mm Hg Auto Chem SS CO2 Calc (BldV) [Moles/Vol] 44.0 mmol/L Invalid Interpretation Code 22.0 - 32.0 mmol/L AH Auto Chem SS Comment on above: Result Comment: .. HCO3 (Bld) [Moles/Vol] 41.9 mmol/L Invalid Interpretation Code 21.0 - 30.0 mmol/L AH Auto Chem SS Oxygen (BldV) [Partial pressure] 195.0 mm[Hg] Invalid Interpretation Code 35.0 - 40.0 mm Hg AH Auto Chem SS pH (BldV) 7.405 [pH] Invalid Interpretation Code 7.380 - 7.460 Auto Chem SS LABORATORYOrdered By: Karissa forte on 12-13-2021 CO2 [Moles/Vol] mEq/L Invalid Interpretation Code 22 - 32 mEq/L Chemistry S Comment on above: Result Comment: .. Electrolyte Balance Unable to Calculate Invalid Interpretation Code 4.0 - 15.0 Chemistry S Comment on above: Result Comment: Unab le to calculate this test result accurately. Results used to calculate this test are outside the reportable range. LABORATORYOrdered By: Zeinab Cummings on 12-13-2021 M. pneumoniae IgM IA Ql (S) Negative (12/13/21 5:03 AM) Invalid Interpretation Code SILVINO Chaidez Viro/Sero SS MGon 12-13-2021 Magnesium [Mass/Vol] 2.0 mg/dL Normal 1.6-2.4 [facility] [place] Comment [place]: Performed By: #### G , SJ #### [place] [address] [place], [place] [address] MYCOon 12-13-2021 Mycoplasma IgM Negative Normal [facility] ([place]) Comment on above: Result Comment: INTE RPRETATION OF MYCOPLASMA BY EIA (Effective 05/13/04): Negative No detectable antibodies to M. pneumoniae. Indicates absence of current or previous infection. Positive Reactive for antibodies to M. pneumoniae. Indicates a past or recent infection. Equivocal Equivocal for antibodies to M. pneumoniae. Repeat testing by an alternate method suggested. Performed By: #### G , SJ #### [address] [address] No Panel Informationon 12-13 Legionella Urine Ag Presumptive negative for L. pneumophila serogroup 1 antigen in urine, suggesting no recent or current infection. Legionnaire's disease cannot be ruled out since other serogroups and species may also cause disease. [facility] Streptococcus Pneumoniae Urine Antig Presumptive negative for pneumococcal pneumonia, suggesting no current or recent pneumococcal infection. Infection due to Strep pneumoniae cannot be ruled out since the antigen present in the sample may be below the detection limit of the test. [facility] Comment on above: This test has not be en evaluated on patients taking antibiotics for greater than 24 hours or on patients who have recently completed an antibiotic regimen. The accuracy of this test has not been proven in young children. VBGon 12-13-2021 BE Venous 13.6 mmol/L High -3.0-3.0 [facility] ([place]) Comment on above: Performed By: #### G , SJ #### [place] [address] [place], [place] [address] HCO3 (Bld) [Moles/Vol] 41.9 mmol/L High 21.0-30.0 [facility] ([place]) Comment on above: Performed By: #### Terrell KNIGHT, BMP #### [address] [address] pCO2 Silvino 68.4 mmHg High 41.0-51.0 [facility] ([place]) Comment on above: Performed By: #### Terrell KNIGHT, BMP #### Marta [address] [address] pH Venous 7.405 Normal 7.380-7.460 [facility] ([place]) Comment on above: Performed By: #### Terrell KNIGHT, BMP #### Marta [address] [address] pO2 Silvino 195.0 mmHg High 35.0-40.0 [facility] ([place]) Comment on above: Performed By: #### Terrell KNIGHT, BMP #### Mart[address] [address] TCO2 Venous 99.3 % High 70.0-75.0 [facility] ([place] Comment on above: Performed By: #### Terrell KNIGHT, BMP #### [address] [address] .GFRon 12-12-2021 GFR 155 ml/min/1.73sqm Normal [facility] ([place]) Comment on above: Result Comment: GFR Population mean for , Non- Americans Ages 20-29 = 116 mL/min/1.73 sq.m. Ages 30-39 = 107 mL/min/1.73 sq.m. Ages 40-49 = 99 mL/min/1.73 sq.m. Ages 50-59 = 93 mL/min/1.73 sq.m. Ages 60-69 = 85 mL/min/1.73 sq.m. Ages 70+ = 75 mL/min/1.73 sq.m. Chronic Kidney Disease: Less than 60 mL/min/1.73 square meters End Stage Renal Disease: Less than 15 mL/min/1.73 square meters Performed By: #### Terrell KNIGHT, BMP #### [address] [address] GFR Non- 128 ml/min/1.73sqm Normal [facility] ([place]) Comment on above: Result Comment: GFR Population mean for , Non- Americans Ages 20-29 = 116 mL/min/1.73 sq.m. Ages 30-39 = 107 mL/min/1.73 sq.m. Ages 40-49 = 99 mL/min/1.73 sq.m. Ages 50-59 = 93 mL/min/1.73 sq.m. Ages 60-69 = 85 mL/min/1.73 sq.m. Ages 70+ = 75 mL/min/1.73 sq.m. Chronic Kidney Disease: Less than 60 mL/min/1.73 square meters End Stage Renal Disease: Less than 15 mL/min/1.73 square meters Performed By: #### G FR, BMP #### [address] [address] GFR 155 ml/min/1.73sqm Normal [facility] ([place]) Comment on above: Result Comment: GFR Population mean for , Non- Americans Ages 20-29 = 116 mL/min/1.73 sq.m. Ages 30-39 = 107 mL/min/1.73 sq.m. Ages 40-49 = 99 mL/min/1.73 sq.m. Ages 50-59 = 93 mL/min/1.73 sq.m. Ages 60-69 = 85 mL/min/1.73 sq.m. Ages 70+ = 75 mL/min/1.73 sq.m. Chronic Kidney Disease: Less than 60 mL/min/1.73 square meters End Stage Renal Disease: Less than 15 mL/min/1.73 square meters Performed By: #### G FR, BMP #### [address] [address] GFR Non- 128 ml/min/1.73sqm Normal [facility] ([place]) Comment on above: Result Comment: GFR Population mean for , Non- Americans Ages 20-29 = 116 mL/min/1.73 sq.m. Ages 30-39 = 107 mL/min/1.73 sq.m. Ages 40-49 = 99 mL/min/1.73 sq.m. Ages 50-59 = 93 mL/min/1.73 sq.m. Ages 60-69 = 85 mL/min/1.73 sq.m. Ages 70+ = 75 mL/min/1.73 sq.m. Chronic Kidney Disease: Less than 60 mL/min/1.73 square meters End Stage Renal Disease: Less than 15 mL/min/1.73 square meters Performed By: #### G FR, BMP #### [address] [place] [address] [place], [place] [address] .MDWon 12-12-2021 Monocyte Distribution Width Not performed Normal 0.00-20.00 [facility] ([place]) Comment on above: Result Comment: MDW testing performed only on adult ER patients between the ages of 18-89 years. .Manual Diffon 12-12-2021 Bands 5.0 % Normal 0.0-5.0 [facility] ([place]) Basophil %, Manual 0.0 % Normal 0.0-2.5 [facility] ([place]) Basophil, Abs Manual 0.0 10 3/mcL Normal 0.0-0.2 [facility] ([place]) Eosinophil %, Manual 0.0 % Normal 0.0-7.0 [facility] [place] Eosinophil, Abs Manual 0.0 10 3/mcL Normal 0.0-0.4 [facility] ([place]) Lymphocyte %, Manual 14.0 % Normal 10.0-50.0 [facility] [place] Lymphocyte, Abs Manual 0.8 10 3/mcL Normal 0.8-3.9 [facility] ([place]) Monocyte %, Manual 1.0 % Low 1.7-13.0 [facility] ([place] Monocyte, Abs Manual 0.1 10 3/mcL Low 0.2-1.0 [facility] ([place]) Neutrophil %, Manual 80.0 % Normal 37.0-80.0 [facility] [place] Neutrophil, Abs Manual 4.9 10 3/mcL Normal 2.9-6.2 [facility] ([place]) Nucleated RBC 0.0 /100 WBC Normal [facility] ([place]) .Morphon 12-12-2021 Anisocytosis Ql (Bld) 1+ Normal [facility] ([place]) Microcytosis 2+ Normal [facility] ([place]) Platelet Estimate Normal Normal [facility] ([place]) ABGon 12-12-2021 Base excess Calc (Bld) [Moles/Vol] 27.0 mmol/L High -2.4-2.3 [facility] ([place]) Comment on above: Performed By: #### A BG #### [address] [address] CO2 Totl >50 High 19-24 [facility] ([place]) Comment on above: Performed By: #### A BG #### [address] [address] HCO3 (Bld) [Moles/Vol] 53.1 mmol/L Criticall y abnormal 22.0-26.0 [facility] ([place] Comment on above: Performed By: #### A BG #### [address] [address] Oxygen (Bld) [Partial pressure] 83.0 mm[Hg] Normal 80.0-100.0 [facility] ([place] Comment on above: Performed By: #### A BG #### [address] [address] Oxygen saturation in Blood 94 % Low 95-98 [facility] ([place] Comment on above: Performed By: #### A BG #### [address] [address] pCO2 98.6 mmHg Critically abnormal 35.0-45.0 [facility] ([place] Comment on above: Performed By: #### A BG #### [address] [address] pH (Bld) 7.34 [pH] Low 7.35-7.45 [facility] ([place] Comment on above: Performed By: #### A BG #### [address] [address] Base excess Calc (Bld) [Moles/Vol] 29.0 mmol/L High -2.4-2.3 [facility] ([place] Comment on above: Performed By: #### A BG #### [address] [address] CO2 Totl >50 High 19-24 [facility] ([place] Comment on above: Performed By: #### A BG #### [address] [address] HCO3 (Bld) [Moles/Vol] 54.3 mmol/L Criticall y abnormal 22.0-26.0 [facility] ([place] Comment on above: Performed By: #### A BG #### [address] [address] Oxygen (Bld) [Partial pressure] 78.0 mm[Hg] Low 80.0-100.0 [facility] ([place] Comment on above: Performed By: #### A BG #### [address] [address] Oxygen saturation in Blood 93 % Low 95-98 [facility] ([place] Comment on above: Performed By: #### A BG #### [address] [address] pCO2 99.6 mmHg Critically abnormal 35.0-45.0 [facility] ([place] Comment on above: Performed By: #### A BG #### [address] [address] pH (Bld) 7.34 [pH] Low 7.35-7.45 [facility] ([place] Comment on above: Performed By: #### A BG #### [address] [address] Base excess Calc (Bld) [Moles/Vol] 26.0 mmol/L High -2.4-2.3 [facility] ([place] Comment on above: Performed By: #### G FR, BMP #### [address] [address] CO2 Totl >50 High 19-24 [facility] ([place]) Comment on above: Performed By: #### Terrell KNIGHT, BMP #### [address] [address] HCO3 (Bld) [Moles/Vol] 52.0 mmol/L Criticall y abnormal 22.0-26.0 [facility] ([place]) Comment on above: Performed By: #### Terrell KNIGHT, BMP #### [address] [address] Oxygen (Bld) [Partial pressure] 53.0 mm[Hg] Low 80.0-100.0 [facility] ([place] Comment on above: Performed By: #### Terrell KNIGHT, BMP #### [address] [address] Oxygen saturation in Blood 81 % Low 95-98 [facility] ([place] Comment on above: Performed By: #### Terrell KNIGHT, BMP #### [address] [address] pCO2 100.1 mmHg Critically abnormal 35.0-45.0 [facility] ([place] Comment on above: Performed By: #### Terrell KNIGHT, BMP #### [address] [address] pH (Bld) 7.32 [pH] Low 7.35-7.45 [facility] ([place] Comment on above: Performed By: #### Terrell KNIGHT, BMP #### [address] [address] Base excess Calc (Bld) [Moles/Vol] 27.0 mmol/L High -2.4-2.3 [facility] ([place] Comment on above: Performed By: #### Terrell KNIGHT, BMP #### [address] [address] CO2 Totl >50 High 19-24 [facility] ([place]) Comment on above: Performed By: #### Terrell KNIGHT, BMP #### [address] [address] HCO3 (Bld) [Moles/Vol] 52.7 mmol/L Criticall y abnormal 22.0-26.0 [facility] ([place] Comment on above: Performed By: #### Terrell KNIGHT, BMP #### [address] [address] Oxygen (Bld) [Partial pressure] 52.0 mm[Hg] Low 80.0-100.0 [facility] ([place] Comment on above: Performed By: #### Terrell KNIGHT, BMP #### [address] [address] Oxygen saturation in Blood 81 % Low 95-98 [facility] ([place] Comment on above: Performed By: #### Terrell KNIGHT, BMP #### [address] [address] pCO2 94.8 mmHg Critically abnormal 35.0-45.0 [facility] ([place] Comment on above: Performed By: #### Terrell KNIGHT, BMP #### [address] [address] pH (Bld) 7.35 [pH] Normal 7.35-7.45 [facility] ([place] Comment on above: Performed By: #### Terrell KNIGHT, BMP #### [address] [address] CAIONon 12-12-2021 Calcium Ionized 1.04 mmol/L Low 1.12-1.32 [facility]) Comment on above: Performed By: #### Terrell KNIGHT, BMP #### [address] [address] CBCon 12-12-2021 Erythrocyte distribution width (RBC) [Ratio] 19.7 % High 11.5-14.5 [facility] ([place]) Hematocrit (Bld) [Volume fraction] 34.9 % Low 37.0-47.0 [facility] ([place] Hgb 10.1 G/dL Low 12.0-16.0 [facility] [place] MCH (RBC) [Entitic mass] 20.0 pg Low 27.0-31.2 [facility] ([place]) MCHC 28.8 G/dL Low 33.0-37.0 [facility] [place] MCV (RBC) [Entitic vol] 69.5 fL Low 80.0-94.0 [facility] ([place] Platelet 231 10 3/mcL Normal 130-400 [facility] ([place] Platelet mean volume (Bld) [Entitic vol] 7.5 fL Normal 7.4-10.4 [facility] [place] RBC 5.02 10 6/mcL Normal 4.20-5.40 Pending sale to [facility] [place] WBC 6.1 10 3/mcL Normal 4.6-10.8 [facility] ([place] CMPon 12-12-2021 Albumin Level 3.0 G/dL Low 3.5-5.0 Pending [facility] to [facility] ([place] Comment on above: Performed By: #### Terrell KNIGHT, BMP #### [address] [address] Albumin/Globulin [Mass ratio] 1.0 {ratio} Low 1.1-2.5 [facility] ([place] Comment on above: Performed By: #### Terrell KNIGHT, BMP #### [address] [address] ALP [Catalytic activity/Vol] 95 U/L Normal 40-135 [facility] ([place] Comment on above: Performed By: #### Terrell KNIGHT, BMP #### [address] [address] ALT [Catalytic activity/Vol] 16 U/L Normal 14-59 [facility] ([place] Comment on above: Performed By: #### G FR, BMP #### [address] [address] AST [Catalytic activity/Vol] 11 U/L Normal 10-40 [facility] ([place] Comment on above: Performed By: #### G FR, BMP #### [address] [address] Bili Total 0.2 mg/dL Normal 0.2-1.0 [facility] ([place]) Comment on above: Result Comment: Use of this assay is not recommended for patients undergoing treatment with eltrombopag due to the potential for falsely elevated results. Performed By: #### Terrell KNIGHT, BMP #### [address] [address] BUN/Creatinine Ratio 14 ratio Normal 7-27 [facility] [place] Comment on above: Performed By: #### Terrell KNIGHT, BMP #### [address] [address] Calcium [Mass/Vol] 8.9 mg/dL Normal 8.4-10.2 [facility] ([place] Comment on above: Performed By: #### Terrell KNIGHT, BMP #### [address] [address] Chloride [Moles/Vol] 98 mmol/L Normal 98-107 [facility] [place] Comment on [place]: Performed By: #### Terrell KNIGHT, BMP #### [address] [address] CO2 [Moles/Vol] mmol/L Critically abnormal 22-29 [facility] ([place]) Comment on above: Performed By: #### Terrell KNIGHT, BMP #### [address] [address] Creatinine [Mass/Vol] 0.56 mg/dL Normal 0.55-1.02 [facility] ([place]) Comment on above: Performed By: #### Terrell KNIGHT, BMP #### [address] [address] Electrolyte Balance Unable to Calculate Normal 4.0-15. 0 [facility] ([place]) Comment on above: Result Comment: Unab le to calculate this test result accurately. Results used to calculate this test are outside the reportable range. Performed By: #### Terrell KNIGHT, BMP #### [address] [address] Globulin 2.9 G/dL Normal [facility] ([place]) Comment on above: Performed By: #### Terrell KNIGHT, BMP #### [address] [address] Glucose [Mass/Vol] 128 mg/dL High 70-105 [facility] ([place]) Comment on above: Performed By: #### Terrell KNIGHT, BMP #### [address] [address] Potassium [Moles/Vol] 5.0 mmol/L Normal 3.5-5.1 [facility] ([place]) Comment on above: Performed By: #### G , BMP #### [address] [address] Sodium [Moles/Vol] 145 mmol/L Normal 136-145 [facility] ([place]) Comment on above: Performed By: #### Terrell KNIGHT, BMP #### [address] [address] Total Protein 5.9 G/dL Low 6.4-8.2 Pending sale to [facility] ([place]) Comment on above: Performed By: #### Terrell KNIGHT, BMP #### [address] [address] Urea nitrogen [Mass/Vol] 8 mg/dL Normal 7-18 [facility] ([place]) Comment on above: Performed By: #### Terrell KNIGHT, BMP #### [address] [address] Albumin Level 2.9 G/dL Low 3.5-5.0 Pending sale to [facility] ([place]) Comment on above: Performed By: #### Terrell KNIGHT, BMP #### [address] [address] Albumin/Globulin [Mass ratio] 1.0 {ratio} Low 1.1-2.5 [facility] ([place]) Comment on above: Performed By: #### G , BMP #### [address] [address] ALP [Catalytic activity/Vol] 95 U/L Normal 40-135 [facility] ([place]) Comment on above: Performed By: #### G , BMP #### [address] [address] ALT [Catalytic activity/Vol] 15 U/L Normal 14-59 [facility] ([place]) Comment on above: Performed By: #### Terrell KNIGHT, BMP #### [address] [address] AST [Catalytic activity/Vol] 10 U/L Normal 10-40 [facility] ([place]) Comment on above: Performed By: #### Terrell KNIGHT, BMP #### [address] [address] Bili Total 0.2 mg/dL Normal 0.2-1.0 [facility] ([place]) Comment on above: Result Comment: Use of this assay is not recommended for patients undergoing treatment with eltrombopag due to the potential for falsely elevated results. Performed By: #### Terrell KNIGHT, BMP #### [address] [address] BUN/Creatinine Ratio 12 ratio Normal 7-27 [facility] [place] Comment on above: Performed By: #### Terrell KNIGHT, BMP #### [address] [address] Calcium [Mass/Vol] 9.0 mg/dL Normal 8.4-10.2 [facility] ([place] Comment on above: Performed By: #### Terrell KNIGHT, BMP #### [address] [address] Chloride [Moles/Vol] 99 mmol/L Normal 98-107 [facility] [place] Comment on above: Performed By: #### Terrell KNIGHT, BMP #### [address] [address] CO2 [Moles/Vol] mmol/L Critically abnormal 22-29 [facility] ([place]) Comment on above: Performed By: #### Terrell KNIGHT, BMP #### [address] [address] Creatinine [Mass/Vol] 0.56 mg/dL Normal 0.55-1.02 [facility] ([place] Comment on above: Performed By: #### Terrell KNIGHT, BMP #### [address] [address] Electrolyte Balance Unable to Calculate Normal 4.0-15. 0 [facility] ([place]) Comment on above: Result Comment: Unab le to calculate this test result accurately. Results used to calculate this test are outside the reportable range. Performed By: #### Terrell KNIGHT, BMP #### [address] [address] Globulin 2.8 G/dL Normal [facility] ([place]) Comment on above: Performed By: #### Terrell KNIGHT, BMP #### Marta [address] [address] Glucose [Mass/Vol] 142 mg/dL High 70-105 [facility] ([place]) Comment on above: Performed By: #### Terrell KNIGHT, BMP #### [address] [address] Potassium [Moles/Vol] 5.0 mmol/L Normal 3.5-5.1 [facility]) Comment on above: Performed By: #### Terrell KNIGHT, BMP #### [address] [address] Sodium [Moles/Vol] 145 mmol/L Normal 136-145 [facility] ([place] Comment on above: Performed By: #### Terrell KNIGHT, BMP #### Marta [address] [address] Total Protein 5.7 G/dL Low 6.4-8.2 Pending sale to [facility] ([place] Comment on above: Performed By: #### Terrell KNIGHT, BMP #### Marta [address] [address] Urea nitrogen [Mass/Vol] 7 mg/dL Normal 7-18 [facility] ([place] Comment on above: Performed By: #### Terrell KNIGHT, BMP #### [address] [address] [id number] 12-12-2021 Date of Onset 20211211 Invalid Interpretation Code [facility] ([place]) Comment on above: Performed By: #### Terrell KNIGHT, BMP #### Marta [address] [address] 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 Healthcare 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 [facility] ([place]) Comment on above: Performed By: #### G FR, BMP #### [place] [address] First Test Unknown [facility] ([place]) Comment on above: Performed By: #### G FR, BMP #### [place] [address] Hospitalized Yes [facility] ([place]) Comment on above: Performed By: #### G FR, BMP #### [place] [address] ICU No [facility] ([place] Comment on above: Performed By: #### G FR, BMP #### [place] [address] Not [facility] ([place] Comment on above: Performed By: #### G FR, BMP #### [place] [address] Resides in Congregate Care Setting No [facility] ([place] Comment on above: Performed By: #### G FR, BMP #### [place] [address] SARS-CoV-2 (COVID-19) RNA GUNJAN+probe Ql (Unsp spec) Negative Normal Negative [facility] ([place]) Comment on above: Performed By: #### G FR, BMP #### [place] [address] SARS-CoV-2 (COVID-19) RNA GUNJAN+probe Ql (Unsp spec) Normal [facility] ([place]) Comment on above: Result Comment: Nega tive results do not preclude SARS-CoV-2 infection and should not be used as the sole basis for patient management decisions. Negative results must be combined with clinical observations, patient history, and epidemiological information. There is a risk of false negative values resulting from improperly collected, transported, or handled specimens. There is a risk of false negative values due to the presence of sequence variants in the pathogen targets of the assay, procedural errors, amplification inhibitors in specimens, or inadequate numbers of organisms for amplification. WILLAM SARS-CoV-2 Assay is a Real-Time reverse-transcriptase polymerase chain reaction (RT-PCR) based qualitative in vitro diagnostic test intended for the qualitative detection of nucleic acid from the SARS-CoV-2 in nasopharyngeal swab specimens collected from individuals suspected of COVID-19 by their healthcare provider. Testing is limited to laboratories certified under the Clinical Laboratory Improvement Amendments of 1988 (CLIA), 42 U.S.C. ?263a, to perform moderate and high complexity tests. COVID-19 Int Performed By: #### G , SJ #### [place] [address] Symptomatic as Defined by [facility] Yes Normal [facility] ([place]) Comment on above: Performed By: #### G , SJ #### [address] [address] DIMERon 12-12-2021 D-Dimer <200 Normal 0-230 [facility] ([place]) Comment on above: Result Comment: The result of the D-Dimer test should be evaluated in the context of all the clinical and laboratory data available. In those instances where the laboratory result does not agree with the clinical evaluation, additional tests should be performed accordingly. If the D-Dimer result is used to exclude DVT or PE, the recommended cutoff value is less than 230 ng/mL. The D-Dimer result should not be used alone to rule in DVT/PE, but should be used in conjunction with a clinical pretest probability (PTP)assessment model to exclude venous thromboembolism (VTE) in outpatients suspected of deep venous thrombosis (DVT) and pulmonary embolism (PE). Performed By: #### G , BMP #### [address] [address] Kp 12-12-2021 Potassium [Moles/Vol] 5.0 mmol/L Normal 3.5-5.1 [facility] ([place]) Comment on above: Performed By: #### G , BMP #### [address] [address] LABORATORYOrdered By: Lauren He on 12-12-2021 Base excess Calc (Bld) [Moles/Vol] 27.0 mmol/L Invalid Interpretation Code -2.4 - 2.3 mmol/L AO Blood Gas SS CO2 (Bld) [Partial pressure] 98.6 mm[Hg] Invalid Interpretation Code 35.0 - 45.0 mm Hg AO Blood Gas SS CO2 [Moles/Vol] mmol/L Invalid Interpretation Code 19 - 24 mmol/L AO Blood Gas SS HCO3 (Bld) [Moles/Vol] 53.1 mmol/L Invalid Interpretation Code 22.0 - 26.0 mmol/L AO Blood Gas SS Oxygen (Bld) [Partial pressure] 83.0 mm[Hg] Invalid Interpretation Code 80.0 - 100.0 mm Hg AO Blood Gas SS pH (Bld) 7.34 [pH] Invalid Interpretation Code 7.35 - 7.45 AO Blood Gas SS Albumin BCP dye [Mass/Vol] 3.0 G/dL Invalid Interpretation Code 3.5 - 5.0 G/dL AO ADM SS Albumin/Globulin [Mass ratio] 1.0 {ratio} Invalid Interpretation Code 1.1 - 2.5 ratio AO ADM SS ALP [Catalytic activity/Vol] 95 U/L Invalid Interpretation Code 40 - 135 U/L AO ADM SS ALT With P-5'-P [Catalytic activity/Vol] 16 U/L Invalid Interpretation Code 14 - 59 U/L AO ADM SS AST With P-5'-P [Catalytic activity/Vol] 11 U/L Invalid Interpretation Code 10 - 40 U/L AO ADM SS Bilirubin [Mass/Vol] 0.2 mg/dL Invalid Interpretation Code 0.2 - 1.0 mg/dL AO ADM SS Calcium [Mass/Vol] 8.9 mg/dL Invalid Interpretation Code 8.4 - 10.2 mg/dL AO ADM SS Calcium.ionized (Bld) [Moles/Vol] 1.04 mmol/L Invalid Interpretation Code 1.12 - 1.32 mmol/L AO Blood Gas SS Chloride [Moles/Vol] 98 mmol/L Invalid Interpretation Code 98 - 107 mmol/L AO ADM SS CO2 [Moles/Vol] mmol/L Invalid Interpretation Code 22 - 29 mmol/L AO ADM SS Creatinine [Mass/Vol] 0.56 mg/dL Invalid Interpretation Code 0.55 - 1.02 mg/dL AO ADM SS Electrolyte Balance Unable to Calculate Invalid Interpretation Code 4.0 - 15.0 AO ADM SS Comment on above: Result Comment: Unab le to calculate this test result accurately. Results used to calculate this test are outside the reportable range. Fibrin D-dimer DDU (PPP) [Mass/Vol] ng/mL D-DU Invalid Interpretation Code 0 - 230 ng/mL D-DU AO Coag SS Globulin 2.9 G/dL Invalid Interpretation Code AO ADM SS Glucose [Mass/Vol] 128 mg/dL Invalid Interpretation Code 70 - 105 mg/dL AO ADM SS Magnesium [Mass/Vol] 2.1 mg/dL Invalid Interpretation Code 1.8 - 2.4 mg/dL AO ADM SS Phosphate [Mass/Vol] 3.0 mg/dL Invalid Interpretation Code 2.7 - 4.5 mg/dL AO ADM SS Potassium [Moles/Vol] 5.0 mmol/L Invalid Interpretation Code 3.5 - 5.1 mmol/L AO ADM SS Protein [Mass/Vol] 5.9 G/dL Invalid Interpretation Code 6.4 - 8.2 G/dL AO ADM SS Sodium [Moles/Vol] 145 mmol/L Invalid Interpretation Code 136 - 145 mmol/L AO ADM SS Urea nitrogen [Mass/Vol] 8 mg/dL Invalid Interpretation Code 7 - 18 mg/dL AO ADM SS Urea nitrogen/Creatinine [Mass ratio] 14 ratio Invalid Interpretation Code 7 - 27 ratio AO ADM SS Base excess Calc (Bld) [Moles/Vol] 29.0 mmol/L Invalid Interpretation Code -2.4 - 2.3 mmol/L AO Blood Gas SS CO2 (Bld) [Partial pressure] 99.6 mm[Hg] Invalid Interpretation Code 35.0 - 45.0 mm Hg AO Blood Gas SS CO2 [Moles/Vol] mmol/L Invalid Interpretation Code 19 - 24 mmol/L AO Blood Gas SS HCO3 (Bld) [Moles/Vol] 54.3 mmol/L Invalid Interpretation Code 22.0 - 26.0 mmol/L AO Blood Gas SS Oxygen (Bld) [Partial pressure] 78.0 mm[Hg] Invalid Interpretation Code 80.0 - 100.0 mm Hg AO Blood Gas SS pH (Bld) 7.34 [pH] Invalid Interpretation Code 7.35 - 7.45 AO Blood Gas SS Albumin BCP dye [Mass/Vol] 2.9 G/dL Invalid Interpretation Code 3.5 - 5.0 G/dL AO ADM SS Albumin/Globulin [Mass ratio] 1.0 {ratio} Invalid Interpretation Code 1.1 - 2.5 ratio AO ADM SS ALP [Catalytic activity/Vol] 95 U/L Invalid Interpretation Code 40 - 135 U/L AO ADM SS ALT With P-5'-P [Catalytic activity/Vol] 15 U/L Invalid Interpretation Code 14 - 59 U/L AO ADM SS Anisocytosis Ql (Bld) 1+ *NA* (12/12/21 6:27 AM) Invalid Interpretation Code AO Workflow SS AST With P-5'-P [Catalytic activity/Vol] 10 U/L Invalid Interpretation Code 10 - 40 U/L AO ADM SS Bands 5.0 1 Invalid Interpretation Code 0.0 - 5.0 % AO Workflow SS Basophil %, Manual 0.0 1 Invalid Interpretation Code 0.0 - 2.5 % AO Workflow SS Basophil, Abs Manual 0.0 103/mcL Invalid Interpretation Code 0.0 - 0.2 10^3/mcL AO Workflow SS Bilirubin [Mass/Vol] 0.2 mg/dL Invalid Interpretation Code 0.2 - 1.0 mg/dL AO ADM SS Calcium [Mass/Vol] 9.0 mg/dL Invalid Interpretation Code 8.4 - 10.2 mg/dL AO ADM SS Chloride [Moles/Vol] 99 mmol/L Invalid Interpretation Code 98 - 107 mmol/L AO ADM SS CO2 [Moles/Vol] mmol/L Invalid Interpretation Code 22 - 29 mmol/L AO ADM SS Creatinine [Mass/Vol] 0.56 mg/dL Invalid Interpretation Code 0.55 - 1.02 mg/dL AO ADM SS Electrolyte Balance Unable to Calculate Invalid Interpretation Code 4.0 - 15.0 AO ADM SS Comment on above: Result Comment: Unab le to calculate this test result accurately. Results used to calculate this test are outside the reportable range. Eosinophil %, Manual 0.0 1 Invalid Interpretation Code 0.0 - 7.0 % AO Workflow SS Eosinophils (Bld) [#/Vol] 0.0 103/mcL Invalid Interpretation Code 0.0 - 0.4 10^3/mcL AO Workflow SS Erythrocyte distribution width (RBC) [Ratio] 19.7 % Invalid Interpretation Code 11.5 - 14.5 % AO Workflow SS Globulin 2.8 G/dL Invalid Interpretation Code AO ADM SS Glucose [Mass/Vol] 142 mg/dL Invalid Interpretation Code 70 - 105 mg/dL AO ADM SS Hematocrit (Bld) [Volume fraction] 34.9 % Invalid Interpretation Code 37.0 - 47.0 % AO Workflow SS Hemoglobin (Bld) [Mass/Vol] 10.1 G/dL Invalid Interpretation Code 12.0 - 16.0 G/dL AO Workflow SS Lymphocyte %, Manual 14.0 1 Invalid Interpretation Code 10.0 - 50.0 % AO Workflow SS Lymphocyte, Abs Manual 0.8 103/mcL Invalid Interpretation Code 0.8 - 3.9 10^3/mcL AO Workflow SS MCH (RBC) [Entitic mass] 20.0 pg Invalid Interpretation Code 27.0 - 31.2 pg AO Workflow SS MCHC 28.8 G/dL Invalid Interpretation Code 33.0 - 37.0 G/dL AO Workflow SS MCV (RBC) [Entitic vol] 69.5 fL Invalid Interpretation Code 80.0 - 94.0 fL AO Workflow SS Microcytes Ql (Bld) 2+ *NA* (12/12/21 6:27 AM) Invalid Interpretation Code AO Workflow SS Monocyte %, Manual 1.0 1 Invalid Interpretation Code 1.7 - 13.0 % AO Workflow SS Monocyte, Abs Manual 0.1 103/mcL Invalid Interpretation Code 0.2 - 1.0 10^3/mcL AO Workflow SS Neutrophil %, Manual 80.0 1 Invalid Interpretation Code 37.0 - 80.0 % AO Workflow SS Neutrophil, Abs Manual 4.9 103/mcL Invalid Interpretation Code 2.9 - 6.2 10^3/mcL AO Workflow SS Nucleated RBC 0.0 /100 WBC Invalid Interpretation Code AO Workflow SS Platelet Estimate Normal *NA* (12/12/21 6:27 AM) Invalid Interpretation Code AO Workflow SS Platelet mean volume (Bld) [Entitic vol] 7.5 fL Invalid Interpretation Code 7.4 - 10.4 fL AO Workflow SS Platelets (Bld) [#/Vol] 231 103/mcL Invalid Interpretation Code 130 - 400 10^3/mcL AO Workflow SS Potassium [Moles/Vol] 5.0 mmol/L Invalid Interpretation Code 3.5 - 5.1 mmol/L AO ADM SS Protein [Mass/Vol] 5.7 G/dL Invalid Interpretation Code 6.4 - 8.2 G/dL AO ADM SS RBC (Bld) [#/Vol] 5.02 106/mcL Invalid Interpretation Code 4.20 - 5.40 10^6/mcL AO Workflow SS Sodium [Moles/Vol] 145 mmol/L Invalid Interpretation Code 136 - 145 mmol/L AO ADM SS TSH Qn 0.61 m[IU]/L Invalid Interpretation Code 0.36 - 3.74 mcIU/mL AO Chemistry S Urea nitrogen [Mass/Vol] 7 mg/dL Invalid Interpretation Code 7 - 18 mg/dL AO ADM SS Urea nitrogen/Creatinine [Mass ratio] 12 ratio Invalid Interpretation Code 7 - 27 ratio AO ADM SS WBC 6.1 103/mcL Invalid Interpretation Code 4.6 - 10.8 10^3/mcL AO Workflow SS LABORATORYOrdered By: SYSTEM SYSTEM on 12-12-2021 GFR 155 ml/min/1.73sqm Invalid Interpretation Code AO Chemistry S GFR Non- 128 ml/min/1.73sqm Invalid Interpretation Code AO Chemistry S GFR 155 ml/min/1.73sqm Invalid Interpretation Code AO Chemistry S GFR Non- 128 ml/min/1.73sqm Invalid Interpretation Code AO Chemistry S Monocyte distribution width Auto (Bld) [Entitic vol] Not Performed 1 *NA* (12/12/21 6:27 AM) Invalid Interpretation Code 0.00 - 20.00 AO Hematology S Comment on above: Result Comment: MDW testing performed only on adult ER patients between the ages of 18-89 years. LABORATORYOrdered By: Audi Marin on 12-12-2021 Base excess Calc (Bld) [Moles/Vol] 26.0 mmol/L Invalid Interpretation Code -2.4 - 2.3 mmol/L AO Blood Gas SS CO2 (Bld) [Partial pressure] 100.1 mm[Hg] Invalid Interpretation Code 35.0 - 45.0 mm Hg AO Blood Gas SS Comment on above: Result Comment: co2 cvrb jacki 0700 CO2 [Moles/Vol] mmol/L Invalid Interpretation Code 19 - 24 mmol/L AO Blood Gas SS HCO3 (Bld) [Moles/Vol] 52.0 mmol/L Invalid Interpretation Code 22.0 - 26.0 mmol/L AO Blood Gas SS Comment on above: Result Comment: hco3 cvrb jacki 0700 Oxygen (Bld) [Partial pressure] 53.0 mm[Hg] Invalid Interpretation Code 80.0 - 100.0 mm Hg AO Blood Gas SS pH (Bld) 7.32 [pH] Invalid Interpretation Code 7.35 - 7.45 AO Blood Gas SS Amphetamines Screen Ql (U) Negative (12/12/21 4:16 AM) Invalid Interpretation Code AO Manual Urine SS Barbiturates Screen Ql (U) Negative (12/12/21 4:16 AM) Invalid Interpretation Code AO Manual Urine SS Benzodiazepines Ql (U) Negative (12/12/21 4:16 AM) Invalid Interpretation Code AO Manual Urine SS Benzoylecgonine Screen Ql (U) Negative (12/12/21 4:16 AM) Invalid Interpretation Code AO Manual Urine SS Cannabinoids tested Screen Nom (U) Negative (12/12/21 4:16 AM) Invalid Interpretation Code AO Manual Urine SS Methadone Screen Ql (U) Negative (12/12/21 4:16 AM) Invalid Interpretation Code AO Manual Urine SS Opiates Screen Ql (U) Positive (12/12/21 4:16 AM) Invalid Interpretation Code AO Manual Urine SS Phencyclidine Ql (U) Negative (12/12/21 4:16 AM) Invalid Interpretation Code AO Manual Urine SS Tricyclic antidepressants Screen Ql (U) Negative (12/12/21 4:16 AM) Invalid Interpretation Code AO Manual Urine SS LABORATORYOrdered By: Max Jacob on 12-12-2021 Glucose [Mass/Vol] 142 mg/dL Invalid Interpretation Code 70 - 110 mg/dL [facility] MGon 12-12-2021 Magnesium [Mass/Vol] 2.1 mg/dL Normal 1.8-2.4 [facility] [place] Comment on above: Performed By: #### Terrell KNIGHT BMP #### [address] [address] PHOSon 12-12-2021 Phosphate [Mass/Vol] 3.0 mg/dL Normal 2.7-4.5 [facility] [place] Comment on above: Performed By: #### Terrell KNIGHT, BMP #### [address] [address] TOXSCon 12-12-2021 U Ampheta (AO) Negative Normal [facility] ([place]) Comment on above: Performed By: #### Terrell KNIGHT, BMP #### [address] [address] U Jessica ([place]) Negative [facility] ([place]) Comment on above: Performed By: #### G FR, BMP #### Marta [address] [address] U Elder ([place]) Negative [facility] ([place]) Comment on above: Performed By: #### G FR, BMP #### Marta [address] [address] U Cannab (AO) Negative [facility] ([place]) Comment on above: Performed By: #### G FR, BMP #### Marta [address] [address] U Cocaine (AO) Negative [facility] ([place]) Comment on above: Performed By: #### G FR, BMP #### Marta [address] [address] U Methadone (AO) Negative [facility] ([place] Comment on above: Performed By: #### G FR, BMP #### Marta [address] [address] U PCP (AO) Negative [facility] ([place] Comment on above: Performed By: #### G FR, BMP #### Marta [address] [address] U TCA (AO) Negative [facility] ([place] Comment on above: Performed By: #### G FR, BMP #### Marta [address] [address] Urine Opiates (AO) Positive Replaced by [facility] ([place] Comment on above: Performed By: #### G FR, BMP #### [address] [address] TSHon 12-12-2021 TSH Qn 0.61 m[IU]/L Normal 0.36-3.74 [facility] ([place]) Comment on above: Performed By: #### T SH #### [address] [address] XR CHEST 1 VIEWon 12-12-2021 XR CHEST 1 VIEW ORIGINAL EXAMINATION: ONE XRAY VIEW OF THE CHEST 12/12/2021 5:46 am COMPARISON: Chest x-ray on 12/11/2021 HISTORY: ORDERING SYSTEM PROVIDED HISTORY: Reason for Exam: hypoxia FINDINGS: The heart is mildly enlarged. Diffuse heterogeneous bilateral lung infiltrates are still present. Infiltrates are predominantly interstitial with mild airspace disease. There is improvement of right basilar airspace disease. Left basilar consolidation is unchanged. A small amount of pleural fluid is evident bilaterally. There is no pneumothorax. IMPRESSION: Stable cardiomegaly. Mildly improved bilateral lung infiltrates, especially at right lung base. Interpreted by: Otis Andrade MD Preliminary Report By: Otis Andrade MD Electronically signed By Otis Andrade MD Dictated Date: 12/12/2021 5:50:29 AM Prelim Date: 12/12/2021 5:53:12 AM Sign Date: 12/12/2021 5:53:12 AM Ordering Provider: LILIBETH Heaton [facility] ([place]) .Auto Diffon 12-11-2021 Basophil, Absolute 0.0 10 3/mcL Normal 0.0-0.2 [facility] [place] Comment on above: Performed By: #### G FR, BMP #### [address] [address] Basophils/100 WBC (Bld) 0.2 % Normal 0.0-2.5 [facility] ([place]) Comment on above: Performed By: #### G FR, BMP #### [address] [address] Eosinophil, Absolute 0.1 10 3/mcL Normal 0.0-0.4 [facility] ([place]) Comment on above: Performed By: #### G FR, BMP #### [address] [address] Eosinophils/100 WBC (Bld) 0.7 % Normal 0.0-7.0 [facility] ([place]) Comment on above: Performed By: #### G FR, BMP #### [address] [address] Lymphocyte, Absolute 1.0 10 3/mcL Normal 0.8-3.9 [facility] ([place] Comment on above: Performed By: #### G FR, BMP #### [address] [address] Lymphocytes/100 WBC (Bld) 11.4 % Normal 10.0-50.0 [facility] ([place] Comment on above: Performed By: #### G FR, BMP #### [address] [address] Monocyte, Absolute 0.4 10 3/mcL Normal 0.2-1.0 [facility] [place] Comment [place] above: Performed By: #### G FR, BMP #### [address] [address] Monocytes/100 WBC (Bld) 4.9 % Normal 1.7-13.0 A [facility] ([place] Comment on above: Performed By: #### Terrell FR, BMP #### [address] [address] Neutrophils/100 WBC (Bld) 82.8 % High 37.0-80.0 [facility] ([place]) Comment on above: Performed By: #### G , BMP #### [address] [address] .GFRon 12-11-2021 GFR 135 ml/min/1.73sqm Normal [facility] ([place]) Comment on above: Result Comment: GFR Population mean for , Non- Americans Ages 20-29 = 116 mL/min/1.73 sq.m. Ages 30-39 = 107 mL/min/1.73 sq.m. Ages 40-49 = 99 mL/min/1.73 sq.m. Ages 50-59 = 93 mL/min/1.73 sq.m. Ages 60-69 = 85 mL/min/1.73 sq.m. Ages 70+ = 75 mL/min/1.73 sq.m. Chronic Kidney Disease: Less than 60 mL/min/1.73 square meters End Stage Renal Disease: Less than 15 mL/min/1.73 square meters Performed By: #### G FR, BMP #### [address] [address] GFR Non- 112 ml/min/1.73sqm Normal [facility] ([place]) Comment on above: Result Comment: GFR Population mean for , Non- Americans Ages 20-29 = 116 mL/min/1.73 sq.m. Ages 30-39 = 107 mL/min/1.73 sq.m. Ages 40-49 = 99 mL/min/1.73 sq.m. Ages 50-59 = 93 mL/min/1.73 sq.m. Ages 60-69 = 85 mL/min/1.73 sq.m. Ages 70+ = 75 mL/min/1.73 sq.m. Chronic Kidney Disease: Less than 60 mL/min/1.73 square meters End Stage Renal Disease: Less than 15 mL/min/1.73 square meters Performed By: #### G , BMP #### [address] [address] .MDWon 12-11-2021 Monocyte Distribution Width 17.28 Normal 0.00-20.00 [facility] ([place]) Comment on above: Result Comment: For ED adult patients suspected of sepsis, MDW<=20.0 does not rule out sepsis or risk of sepsis Performed By: #### Terrell KNIGHT, BMP #### [address] [address] .Morphon 12-11-2021 Microcytosis 1+ Normal [facility] ([place] Comment on above: Performed By: #### Terrell KNIGHT, BMP #### [address] [address] Platelet Estimate Normal Normal [facility] ([place]) Comment on above: Performed By: #### Terrell KNIGHT, BMP #### [address] [address] .NEUABSon 12-11-2021 Neutrophil, Absolute 7.4 10 3/mcL High 2.9-6.2 [facility] ([place]) Comment on above: Performed By: #### Terrell KNIGHT, BMP #### [address] [address] Lizy 12-11-2021 BUN/Creatinine Ratio 13 ratio Normal 7-27 [facility] Comment on above: Performed By: #### Terrell KNIGHT, BMP #### [address] [address] Calcium [Mass/Vol] 8.6 mg/dL Normal 8.4-10.2 [facility] ([place]) Comment on above: Performed By: #### Terrell KNIGHT, BMP #### [address] [address] Chloride [Moles/Vol] 100 mmol/L Normal 98-107 [facility] Comment on above: Performed By: #### Terrell KNIGHT, BMP #### [address] [address] CO2 [Moles/Vol] mmol/L Critically abnormal 22-29 [facility] ([place]) Comment on above: Result Comment: repe ated and verified Performed By: #### Terrell KNIGHT, BMP #### [address] [address] Creatinine [Mass/Vol] 0.63 mg/dL Normal 0.55-1.02 [facility] ([place]) Comment on above: Performed By: #### Terrell KNIGHT, BMP #### [address] [address] Electrolyte Balance Unable to Calculate Normal 4.0-15. 0 [facility] ([place]) Comment on above: Result Comment: Unab le to calculate this test result accurately. Results used to calculate this test are outside the reportable range. Performed By: #### Terrell KNIGHT, BMP #### [address] [address] Glucose [Mass/Vol] 117 mg/dL High 70-105 [facility] ([place]) Comment on above: Performed By: #### Terrell KNIGHT, BMP #### [address] [address] Potassium [Moles/Vol] 5.3 mmol/L High 3.5-5.1 [facility] ([place]) Comment on above: Performed By: #### G FR, BMP #### [address] [address] Sodium [Moles/Vol] 147 mmol/L High 136-145 [facility] ([place]) Comment on above: Performed By: #### G FR, BMP #### [address] [address] Urea nitrogen [Mass/Vol] 8 mg/dL Normal 7-18 [facility] ([place]) Comment on above: Performed By: #### G , BMP #### [address] [address] CBCon 12-11-2021 Erythrocyte distribution width (RBC) [Ratio] 19.6 % High 11.5-14.5 [facility] ([place]) Comment on above: Performed By: #### G , BMP #### [address] [address] Hematocrit (Bld) [Volume fraction] 37.9 % Normal 37.0-47.0 [facility] ([place]) Comment on above: Performed By: #### G , BMP #### [address] [address] Hgb 11.0 G/dL Low 12.0-16.0 [facility] ([place]) Comment on above: Performed By: #### G , BMP #### [address] [address] MCH (RBC) [Entitic mass] 20.3 pg Low 27.0-31.2 [facility] ([place]) Comment on above: Performed By: #### G FR, BMP #### [address] [address] MCHC 29.1 G/dL Low 33.0-37.0 [facility] ([place]) Comment on above: Performed By: #### G FR, BMP #### [address] [address] MCV (RBC) [Entitic vol] 69.7 fL Low 80.0-94.0 [facility] ([place]) Comment on above: Performed By: #### G FR, BMP #### [address] [place], [place] [address] Platelet 275 10 3/mcL Normal 130-400 [facility] ([place]) Comment on above: Performed By: #### G FR, BMP #### [facility] [address] [place], [place] [address] Platelet mean volume (Bld) [Entitic vol] 8.1 fL Normal 7.4-10.4 [facility] ([place]) Comment on above: Performed By: #### G FR, BMP #### [address] [place], [place] [address] RBC 5.44 10 6/mcL High 4.20-5.40 Pending sale to [facility] ([place]) Comment on above: Performed By: #### G FR, BMP #### [address] [address] WBC 9.0 10 3/mcL Normal 4.6-10.8 [facility] ([place] Comment on above: Performed By: #### G FR, BMP #### [address] [address] LABORATORYOrdered By: Audi Marin on 12-11-2021 ADMITTED TO INTENSIVE CARE UNIT FOR CONDITION OF INTEREST:FIND:PT:^PATIE NT:ORD: No (12/11/21 10:18 PM) Invalid Interpretation Code AO Auto Urine SS EMPLOYED IN A HEALTHCARE SETTING:FIND:PT:^PATIEN T:ORD: Unknown (12/11/21 10:18 PM) Invalid Interpretation Code AO Auto Urine SS FIRST TEST FOR CONDITION OF INTEREST:FIND:PT:^PATIE NT:ORD: Unknown (12/11/21 10:18 PM) Invalid Interpretation Code AO Auto Urine SS HAS SYMPTOMS RELATED TO CONDITION OF INTEREST:FIND:PT:^PATIE NT:ORD: Yes (12/11/21 10:18 PM) Invalid Interpretation Code AO Auto Urine SS Illness or injury onset date and time [id number] Invalid Interpretation Code AO Auto Urine SS Patient was hospitalized because of this condition Yes (12/11/21 10:18 PM) Invalid Interpretation Code AO Auto Urine SS Potassium [Moles/Vol] 5.0 mmol/L Invalid Interpretation Code 3.5 - 5.1 mmol/L AO ADM SS status Not (12/11/21 10:18 PM) Invalid Interpretation Code AO Auto Urine SS RESIDES IN A CONGREGATE CARE SETTING:FIND:PT:^BIPIN T:ORD: No (12/11/21 10:18 PM) Invalid Interpretation Code AO Auto Urine SS SARS-CoV-2 (COVID-19) RNA GUNJAN+probe Ql (Unsp spec) Negative results do not preclude SARS-CoV-2 infection and should not be used as the sole basis for patient management decisions. Negative results must be combined with clinical observations, patient history, and epidemiological information.There is a risk of false negative values resulting from improperly collected, transported, or handled specimens.There is a risk of false negative values due to the presence of sequence variants in the pathogen targets of the assay, procedural errors, amplification inhibitors in specimens, or inadequate numbers of organisms for amplification.WILLAM SARS-CoV-2 Assay is a Real-Time reverse-transcriptas e polymerase chain reaction (RT-PCR) based qualitative in vitro diagnostic test intended for the qualitative detection of nucleic acid from the SARS-CoV-2 in nasopharyngeal swab specimens collected from individuals suspected of COVID-19 by their healthcare provider. Testing is limited to laboratories certified under the Clinical Laboratory Improvement Amendments of 1988 (CLIA), 42 U.S.C. 263a, to perform moderate and high complexity tests. Invalid Interpretation Code AO Auto Urine SS LABORATORYOrdered By: Lauren He on 12-11-2021 Basophil, Absolute 0.0 103/mcL Invalid Interpretation Code 0.0 - 0.2 10^3/mcL AO Workflow SS Basophils/100 WBC (Bld) 0.2 % Invalid Interpretation Code 0.0 - 2.5 % AO Workflow SS Calcium [Mass/Vol] 8.6 mg/dL Invalid Interpretation Code 8.4 - 10.2 mg/dL AO ADM SS Chloride [Moles/Vol] 100 mmol/L Invalid Interpretation Code 98 - 107 mmol/L AO ADM SS CO2 [Moles/Vol] mmol/L Invalid Interpretation Code 22 - 29 mmol/L AO ADM SS Creatinine [Mass/Vol] 0.63 mg/dL Invalid Interpretation Code 0.55 - 1.02 mg/dL AO ADM SS Electrolyte Balance Unable to Calculate Invalid Interpretation Code 4.0 - 15.0 AO ADM SS Comment on above: Result Comment: Unab le to calculate this test result accurately. Results used to calculate this test are outside the reportable range. Eosinophil, Absolute 0.1 103/mcL Invalid Interpretation Code 0.0 - 0.4 10^3/mcL AO Workflow SS Eosinophils/100 WBC (Bld) 0.7 % Invalid Interpretation Code 0.0 - 7.0 % AO Workflow SS Erythrocyte distribution width (RBC) [Ratio] 19.6 % Invalid Interpretation Code 11.5 - 14.5 % AO Workflow SS Glucose [Mass/Vol] 117 mg/dL Invalid Interpretation Code 70 - 105 mg/dL AO ADM SS Hematocrit (Bld) [Volume fraction] 37.9 % Invalid Interpretation Code 37.0 - 47.0 % AO Workflow SS Hemoglobin (Bld) [Mass/Vol] 11.0 G/dL Invalid Interpretation Code 12.0 - 16.0 G/dL AO Workflow SS Lymphocyte, Absolute 1.0 103/mcL Invalid Interpretation Code 0.8 - 3.9 10^3/mcL AO Workflow SS Lymphocytes/100 WBC (Bld) 11.4 % Invalid Interpretation Code 10.0 - 50.0 % AO Workflow SS MCH (RBC) [Entitic mass] 20.3 pg Invalid Interpretation Code 27.0 - 31.2 pg AO Workflow SS MCHC 29.1 G/dL Invalid Interpretation Code 33.0 - 37.0 G/dL AO Workflow SS MCV (RBC) [Entitic vol] 69.7 fL Invalid Interpretation Code 80.0 - 94.0 fL AO Workflow SS Microcytes Ql (Bld) 1+ (12/11/21 10:04 AM) Invalid Interpretation Code AO Hematology S Monocyte distribution width Auto (Bld) [Entitic vol] 17.28 Invalid Interpretation Code 0.00 - 20.00 AO Workflow SS Comment on above: Result Comment: For ED adult patients suspected of sepsis, MDW<=20.0 does not rule out sepsis or risk of sepsis Monocyte, Absolute 0.4 103/mcL Invalid Interpretation Code 0.2 - 1.0 10^3/mcL AO Workflow SS Monocytes/100 WBC (Bld) 4.9 % Invalid Interpretation Code 1.7 - 13.0 % AO Workflow SS Neutrophil, Absolute 7.4 103/mcL Invalid Interpretation Code 2.9 - 6.2 10^3/mcL AO Workflow SS Neutrophils/100 WBC (Bld) 82.8 % Invalid Interpretation Code 37.0 - 80.0 % AO Workflow SS Platelet Estimate Normal (12/11/21 10:04 AM) Invalid Interpretation Code AO Hematology S Platelet mean volume (Bld) [Entitic vol] 8.1 fL Invalid Interpretation Code 7.4 - 10.4 fL AO Workflow SS Platelets (Bld) [#/Vol] 275 103/mcL Invalid Interpretation Code 130 - 400 10^3/mcL AO Workflow SS RBC (Bld) [#/Vol] 5.44 106/mcL Invalid Interpretation Code 4.20 - 5.40 10^6/mcL AO Workflow SS Sodium [Moles/Vol] 147 mmol/L Invalid Interpretation Code 136 - 145 mmol/L AO ADM SS Urea nitrogen [Mass/Vol] 8 mg/dL Invalid Interpretation Code 7 - 18 mg/dL AO ADM SS Urea nitrogen/Creatinine [Mass ratio] 13 ratio Invalid Interpretation Code 7 - 27 ratio AO ADM SS WBC 9.0 103/mcL Invalid Interpretation Code 4.6 - 10.8 10^3/mcL AO Workflow SS LABORATORYOrdered By: SYSTEM SYSTEM on 12-11-2021 GFR 135 ml/min/1.73sqm Invalid Interpretation Code AO Chemistry S GFR Non- 112 ml/min/1.73sqm Invalid Interpretation Code AO Chemistry S XR CHEST 1 VIEWon 12-11-2021 XR CHEST 1 VIEW ORIGINAL EXAMINATION: ONE XRAY VIEW OF THE CHEST12/11/2021 10:21 am COMPARISON: 03/10/2018 HISTORY: ORDERING SYSTEM PROVIDED HISTORY: Reason for Exam: SOB FINDINGS: The cardiomediastinal contours are normal. Accentuated vascular markings noted. Hilar adenopathy is suspected. Patchy airspace opacity seen in the lower lungs. The left diaphragm is elevated. No pneumothorax visible. Small pleural effusions not excluded. No aggressive osseous lesions identified. 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 Findings could relate to edema or atypical infectious/inflammat ory conditions Lymphadenopathy could relate to a granulomatous process or other pathology. Consider CT thorax for further evaluation. Otherwise follow to resolution Interpreted by: Eduardo Gonzalez MD Preliminary Report By: Eduardo Gonzalez MD Electronically signed By Eduardo Gonzalez MD Dictated Date: 12/11/2021 10:32:13 AM Prelim Date: 12/11/2021 10:35:07 AM Sign Date: 12/11/2021 10:35:07 AM Ordering Provider: YONIS Heaton [facility] ([place]) CBC Auto DifferentialOrdered By: Dario Peña on 11-05-2020 Anisocytosis Ql (Bld) 2+ [employer] Work Phone: Basophils (Bld) [#/Vol] 0.00 10*3/uL [employer] Work Phone: Basophils/100 WBC (Bld) 0.0 % 0.0 - 2.0 % [employer] ([place]) Phone: Eosinophils Absolute 0.08 [employer] Phone: Eosinophils/100 WBC (Bld) 0.9 % 0.0 - 6.0 % [employer] ([place]) Phone: Hematocrit (Bld) [Volume fraction] 37.2 % 34.0 - 48.0 % [employer] ([place]) Phone: Hemoglobin.gastrointest inal spec 1 Ql (Stl) 9.9 g/dL Low 11.5 - 15.5 g/dL [employer] ([place]) Phone: Hypochromia 2+ [employer] ([place]) Phone: Interpretation and review of laboratory results Abnormal [employer] ([place]) Phone: Lymphocytes Absolute 1.45 Low [employer] Phone: Lymphocytes/100 WBC (Bld) 16.5 % Low 20.0 - 42.0 % [employer] ([place]) Phone: MCH (RBC) [Entitic mass] 18.8 pg Low 26.0 - 35.0 pg [employer] ([place]) Phone: MCHC (RBC) [Mass/Vol] 26.6 % Low 32.0 - 34.5 % [employer] ([place]) Phone: MCV (RBC) [Entitic vol] 70.6 fL Low 80.0 - 99.9 fL [employer] Work Phone: Monocytes Absolute 0.34 [employer] ([place]) Phone: Monocytes/100 WBC (Bld) 4.3 % 2.0 - 12.0 % [employer] Work Phone: Neutrophils Absolute 6.63 [employer] Phone: Neutrophils/100 WBC (Bld) 78.3 % 43.0 - 80.0 % [employer] Work Phone: nRBC 0.0 /100 WBC [employer] ([place]) Phone: Ovalocytes 1+ [employer] Work Phone: Platelet distribution width (Bld) [Ratio] 18.6 fL High 11.5 - 15.0 fL [employer] ([place]) Phone: Platelet mean volume (Bld) [Entitic vol] 9.7 fL 7.0 - 12.0 fL [employer] Work Phone: Platelets (Bld) [#/Vol] 351 10*3/uL [employer] Work Phone: Poikilocytes 1+ [employer] Work Phone: Polychromasia 2+ [employer] [facility] [facility] Work Phone: RBC (Bld) [#/Vol] 5.27 10*6/uL [employer] Work Phone: Stomatocytes 1+ [employer] Work Phone: Tear Drop Cells 1+ [employer] [facility] Work Phone: WBC (Bld) [#/Vol] 8.5 10*3/uL [employer] Work Phone: [employer] Work Phone: COVID-19, RapidOrdered By: Sergio Peña on 11-05-2020 SARS-CoV-2 (COVID-19) RNA GUNJAN+probe Ql (Unsp spec) Not detected Not Detected [employer] ([place]) Phone: Comment on above: Rapid NAAT: Negative results should be treated as presumptive and, if inconsistent with clinical signs and symptoms or necessary for patient management, should be tested with an alternative molecular assay. Negative results do not preclude SARS-CoV-2 infection and should not be used as the sole basis for patient management decisions. This test has been authorized by the FDA under an Emergency Use Authorization (EUA) for use by authorized laboratories. Fact sheet for Healthcare Providers: https://www.fda.gov/media/715254/download Fact sheet for Patients: https://www.fda.gov/media/008932/download METHODOLOGY: Isothermal Nucleic Acid Amplification [employer] ([place]) Phone: Comprehensive Metabolic Pane l w/ Reflex to MGOrdered By: Dario Peña on 11-05-2020 Albumin [Mass/Vol] 3.2 g/dL Low 3.5 - 5.2 g/dL [employer] ([employer]) Phone: ALP (Bld) [Catalytic activity/Vol] 82 U/L 35 - 104 U/L [employer] ([place]) Phone: ALT [Catalytic activity/Vol] 8 U/L 0 - 32 U/L [employer] ([place]) Phone: Anion gap [Moles/Vol] 6 mmol/L Low 7 - 16 mmol/L [employer] ([employer]) Phone: AST [Catalytic activity/Vol] 13 U/L 0 - 31 U/L [employer] ([employer]) Phone: Bilirubin [Mass/Vol] 0.3 mg/dL 0.0 - 1 .2 mg/dL [employer] ([employer]) Phone: Calcium [Mass/Vol] 8.9 mg/dL 8.6 - 10. 2 mg/dL [employer] ([place]) Phone: Chloride [Moles/Vol] 101 mmol/L 98 - 10 7 mmol/L [employer] ([employer]) Phone: CO2 [Moles/Vol] 30 mmol/L High 22 - 29 mmol/L [employer] ([employer]) Phone: Creatinine [Mass/Vol] 0.8 mg/dL 0.5 - 1.0 mg/dL [employer] ([place]) Phone: Free PSA/Total PSA [Mass fraction] 6.7 g/dL 6.4 - 8.3 g/dL [employer] ([place]) Phone: GFR >60 [employer] Phone: GFR Non- >60 >=60 mL/min/1.73 [employer] ([place]) Phone: Comment on above: Chronic Kidney Disea se: less than 60 ml/min/1.73 sq.m. Kidney Failure: less than 15 ml/min/1.73 sq.m. Results valid for patients 18 years and older. Glucose [Mass/Vol] 114 mg/dL High 74 - 99 mg/dL [employer] ([place]) Phone: Interpretation and review of laboratory results Abnormal [employer] ([place]) Phone: Potassium [Moles/Vol] 4.7 mmol/L 3.5 - 5.0 mmol/L [employer] ([place]) Phone: Sodium [Moles/Vol] 137 mmol/L 132 - 146 mmol/L [employer] ([place]) Phone: Urea nitrogen (BldV) [Mass/Vol] 6 mg/dL 6 - 20 mg/dL [employer] ([place]) Phone: [employer] ([employer]) Phone: EKG 12 LeadOrdered By: Kenendy Peña on 11-05-2020 Atrial Rate 74 BPM [employer] ([facility]) Phone: P [place] 54 degrees [employer] ([facility]) Phone: P-R Interval 142 ms [employer] ([place]) Phone: Q-T Interval 396 ms [employer] ([place]) Phone: QRS Duration 88 ms [employer] ([place]) Phone: QTc Calculation (Bazett) 439 ms [employer] ([place]) Phone: R [place] 37 degrees [employer] ([place]) Phone: T [place] 6 degrees [employer] ([place]) Phone: Ventricular Rate 74 BPM [employer] Work Phone: Normal sinus rhythm Normal ECG When compared with ECG of 06-SEP-2020 16:24, Vent. rate has decreased BY 39 BPM Confirmed by Brayden Carmona ([id number]) on 11/05/2020 5:56:32 PM [employer] ([place]) Phone: Eliud, odin Incoming Ekg Results From - 11/05/2020 5:56 PM EDT Normal sinus rhythm Normal ECG When compared with ECG of 06-SEP-2020 16:24, Vent. rate has decreased BY 39 BPM Confirmed by Brayden Carmona ([id number]) on 11/05/2020 5:56:32 PM [employer] ([place]) Phone: [employer] ([place]) Phone: Lactic Acid, PlasmaOrdered B y: Dario Peña on 11-05-2020 Lactate [Moles/Vol] 0.6 mmol/L 0.5 - 2. 2 mmol/L [employer] ([place]) Phone: [employer] ([place]) Phone: Microscopic UrinalysisOrdere d By: Dario Peña on 11-05-2020 Bacteria, UA FEW Abnormal None Seen /HPF [employer] ([place]) Phone: Epithelial Cells, UA FEW /HPF [employer] Phone: Interpretation and review of laboratory results Abnormal [employer] ([place]) Phone: RBC, UA 2-5 [employer] ([place]) Phone: Trichomonas, UA Present Abnormal None Seen /HPF [employer] ([place]) Phone: WBC, UA >20 Abnormal [employer] Work Phone: [employer] Work Phone: POC UrineOrdered B y: Dario Peña on 11-05-2020 Beta HCG ( test) Ql (U) Negative Negative [employer] Work Phone: Lot Number [id number] [employer] Work Phone: Negative QC Pass/Fail Pass [facility] Work Phone: Positive QC Pass/Fail Pass [facility] [employer] Work Phone: [employer] Work Phone: Urinalysis, reflex to micros copicOrdered By: Dario Peña on 11-05-2020 Bilirubin Urine Negative Negative [employer] [facility] Work Phone: Blood, Urine Negative Negative [employer] Work Phone: Clarity, UA Clear Clear [employer] Work Phone: Color, UA Yellow Straw/Yello w [employer] Work Phone: Glucose, Ur Negative Negative mg/dL [employer] Work Phone: Interpretation and review of laboratory results Abnormal [employer] ([place]) Phone: Ketones Ql (U) Negative Negative mg/dL [facility] Work Phone: Leukocyte esterase Test strip Ql (U) MODERATE Abnormal Negative [employer] Work Phone: Nitrite, Urine Negative Negative [employer] [facility] Work Phone: pH, UA 6.5 [employer] Work Phone: Protein, UA Negative Negative mg/dL [facility] Work Phone: Specific [place], UA 1.020 [employer] Work Phone: Urobilinogen, Urine 0.2 <2.0 E.U./dL [employer] ([place]) Phone: [employer] ([place]) Phone: XR CHEST PORTABLEOrdered By: Dario Peña on 11-05-2020 No acute process. [employer] Work Phone: EXAMINATION: ONE XRAY VIEW OF THE CHEST 11/05/2020 3:30 pm COMPARISON: 09/06/2020. HISTORY: ORDERING SYSTEM PROVIDED HISTORY: cough, SOB TECHNOLOGIST PROVIDED HISTORY: Reason for exam:->cough, SOB FINDINGS: The lungs are without acute focal process. There is no effusion or pneumothorax. The cardiomediastinal silhouette is without acute process. The osseous structures are without acute process. [employer] ([place]) Phone: Eliud, Mhy Incoming Radiant Results From [employer] - 11/05/2020 3:47 PM EDT EXAMINATION: ONE XRAY VIEW OF THE CHEST 11/05/2020 3:30 pm COMPARISON: 09/06/2020. HISTORY: ORDERING SYSTEM PROVIDED HISTORY: cough, SOB TECHNOLOGIST PROVIDED HISTORY: Reason for exam:->cough, SOB FINDINGS: The lungs are without acute focal process. There is no effusion or pneumothorax. The cardiomediastinal silhouette is without acute process. The osseous structures are without acute process. IMPRESSION: No acute process. [employer] ([facility]) Phone: [employer] ([employer]) Phone: HEMOGLOBIN [id number] By: Sondra Hoyt on 09-18-2020 HbA1c (Bld) [Mass fraction] 6.1 % High 4.0 - 5.6 % [employer] ([place]) Phone: Interpretation and review of laboratory results Abnormal [employer] ([place]) Phone: C-Reactive Proteinon 020 CRP [Mass/Vol] 3 mg/dL High 0 - 0.4 mg/dL [facility] [place] Interpretation and review of laboratory results Abnormal [place] CBC Auto Differentialon 08- Basophils (Bld) [#/Vol] 0.02 10*3/uL [place] Basophils/100 WBC (Bld) 0.3 % 0 - 2 % M [place], [place] Eosinophils (Bld) [#/Vol] 0.25 10*3/uL [place] Eosinophils/100 WBC (Bld) 3.2 % 0 - 6 % [place] Erythrocyte distribution width (RBC) [Ratio] 18.6 fL High 11.5 - 15 fL [place] Hematocrit (Bld) [Volume fraction] 43.3 % 34 - 48 % [place] Hemoglobin (Bld) [Mass/Vol] 11.9 g/dL 11.5 - 15.5 g/dL [place] Hypochromia 1+ [place] Immature granulocytes (Bld) [#/Vol] 0.06 10*3/uL E9/L [place] Immature granulocytes/100 WBC (Bld) 0.8 % 0 - 5 % [place] Interpretation and review of laboratory results Abnormal [place] Lymphocytes (Bld) [#/Vol] 1.77 10*3/uL [place] Lymphocytes/100 WBC (Bld) 22.3 % 20 - 42 % [place] MCH (RBC) [Entitic mass] 19.9 pg Low 26 - 35 pg [place] MCHC (RBC) [Mass/Vol] 27.5 % Low 32 - 34.5 % [place], [place] MCV (RBC) [Entitic vol] 72.5 fL Low 80 - 99.9 fL [place] Monocytes (Bld) [#/Vol] 0.49 10*3/uL [place] Monocytes/100 WBC (Bld) 6.2 % 2 - 12 % M [place] Neutrophils Absolute 5.34 [place] Neutrophils/100 WBC (Bld) 67.2 % 43 - 80 % [place] Platelet mean volume (Bld) [Entitic vol] 10.0 fL 7 - 12 fL [place] Platelets (Bld) [#/Vol] 301 10*3/uL [place] RBC (Bld) [#/Vol] 5.97 10*6/uL [place] WBC (Bld) [#/Vol] 7.9 10*3/uL [place] Comprehensive Metabolic Pane stuart 12-13-2019 Albumin [Mass/Vol] 4.1 g/dL 3.5 - 5.2 g/dL [place] ALP [Catalytic activity/Vol] 100 U/L 35 - 104 U/L [place] ALT [Catalytic activity/Vol] 9 U/L 0 - 32 U/L [place] Anion gap [Moles/Vol] 8 mmol/L 7 - 16 mmol/L [place] AST [Catalytic activity/Vol] 11 U/L 0 - 31 U/L [place] Bilirubin Ql (U) <0.2 0 - 1.2 mg/dL [place] Calcium [Mass/Vol] 9.3 mg/dL 8.6 - 10. 2 mg/dL [place] Chloride [Moles/Vol] 103 mmol/L 98 - 10 7 mmol/L [place] CO2 [Moles/Vol] 33 mmol/L High 22 - 29 mmol/L [place] Creatinine [Mass/Vol] 0.8 mg/dL 0.5 - 1 mg/dL [place] GFR >60 [place] GFR Non- >60 >=60 mL/min/1.73 [place] Comment on above: Chronic Kidney Disea se: less than 60 ml/min/1.73 sq.m. Kidney Failure: less than 15 ml/min/1.73 sq.m. Results valid for patients 18 years and older. Glucose [Mass/Vol] 92 mg/dL 74 - 99 mg/dL [place] Interpretation and review of laboratory results Abnormal [place] Potassium [Moles/Vol] 4.5 mmol/L 3.5 - 5 mmol/L [place] Protein [Mass/Vol] 6.5 g/dL 6.4 - 8.3 g/dL [facility] [place] Sodium [Moles/Vol] 144 mmol/L 132 - 146 mmol/L [facility] Urea nitrogen [Mass/Vol] 11 mg/dL 6 - 20 mg/dL [facility] [place] Sedimentation Rateon 08-07-2 020 Sed Rate 0 [place] Basic Metabolic Panel w/ Ref jyoti to MGOrdered By: Suzanne Mir on 05-07-2019 Anion gap [Moles/Vol] 12 mmol/L 7 - 16 mmol/L [employer] ([employer]) Phone: Calcium [Mass/Vol] 9.2 mg/dL 8.6 - 10. 2 mg/dL [employer] ([employer] Phone: Chloride [Moles/Vol] 96 mmol/L Low 98 - 10 7 mmol/L [employer] ([employer]) Phone: CO2 [Moles/Vol] 31 mmol/L High 22 - 29 mmol/L [employer] ([employer]) Phone: Creatinine [Mass/Vol] 0.6 mg/dL 0.5 - 1 mg/dL [employer] ([employer]) Phone: GFR >60 [employer] Phone: GFR Non- >60 >=60 mL/min/1.73 [employer] ([employer]) Phone: Comment on above: Chronic Kidney Disea se: less than 60 ml/min/1.73 sq.m. Kidney Failure: less than 15 ml/min/1.73 sq.m. Results valid for patients 18 years and older. Glucose [Mass/Vol] 146 mg/dL High 74 - 99 mg/dL [employer] ([employer]) Phone: Interpretation and review of laboratory results Abnormal [employer] ([employer]) Phone: Potassium [Moles/Vol] 4.4 mmol/L 3.5 - 5 mmol/L [employer] ([employer]) Phone: Sodium [Moles/Vol] 139 mmol/L 132 - 146 mmol/L [employer] ([employer] Phone: Urea nitrogen [Mass/Vol] 12 mg/dL 6 - 20 mg/dL [employer] ([employer] Phone: CBC auto differentialOrdered By: Suzanne Mir on 05-07-2019 Anisocytosis Ql (Bld) 1+ [facility] [employer] Work Phone: Basophils (Bld) [#/Vol] 0.02 10*3/uL [employer] Work Phone: Basophils/100 WBC (Bld) 0.2 % 0 - 2 % M [employer] Work Phone: Eosinophils Absolute 0.00 Low [employer] Work Phone: Eosinophils/100 WBC (Bld) 0 % 0 - 6 % [employer] ([employer]) Phone: Hematocrit (Bld) [Volume fraction] 40.4 % 34 - 48 % [employer] ([employer]) Phone: Hemoglobin (Bld) [Mass/Vol] 11.3 g/dL Low 11.5 - 15.5 g/dL [employer] ([employer]) Phone: Hypochromia 1+ [employer] Work Phone: Immature Granulocytes # 0.26 E9/L [employer] Phone: Immature granulocytes/100 WBC (Bld) 2.0 % 0 - 5 % [employer] ([employer]) Phone: Interpretation and review of laboratory results Abnormal [employer] Work Phone: Lymphocytes Absolute 1.77 [employer] Work Phone: Lymphocytes/100 WBC (Bld) 13.4 % Low 20 - 42 % [employer] ([employer]) Phone: MCH (RBC) [Entitic mass] 20.4 pg Low 26 - 35 pg [employer] ([employer]) Phone: MCHC 28.0 % Low 32 - 34.5 % [employer] Work Phone: MCV (RBC) [Entitic vol] 72.8 fL Low 80 - 99.9 fL [employer] ([employer]) Phone: Monocytes Absolute 0.54 [employer] ([employer]) Phone: Monocytes/100 WBC (Bld) 4.1 % 2 - 12 % [facility] Phone: Neutrophils Absolute 10.66 High [employer] Phone: Neutrophils/100 WBC (Bld) 80.3 % High 43 - 80 % [employer] ([employer]) Phone: Ovalocytes 1+ [employer] Phone: Platelet mean volume (Bld) [Entitic vol] 9.8 fL 7 - 12 fL [employer] Phone: Platelets (Bld) [#/Vol] 431 10*3/uL [employer] Phone: Poikilocytes 1+ [employer] ([employer]) Phone: RBC (Bld) [#/Vol] 5.55 10*6/uL High [employer] ([employer]) Phone: RDW 17.8 fL High 11.5 - 15 fL [employer] ([employer]) Phone: WBC (Bld) [#/Vol] 13.3 10*3/uL High [employer] ([employer]) Phone: Basic Metabolic Panel w/ Ref jyoti to MGOrdered By: Suzanne Mir on 05-06-2019 Anion gap [Moles/Vol] 10 mmol/L 7 - 16 mmol/L [employer] ([employer] Phone: Calcium [Mass/Vol] 8.8 mg/dL 8.6 - 10. 2 mg/dL [employer] Phone: Chloride [Moles/Vol] 99 mmol/L 98 - 10 7 mmol/L [employer] ([employer]) Phone: CO2 [Moles/Vol] 31 mmol/L High 22 - 29 mmol/L [employer] ([employer]) Phone: Creatinine [Mass/Vol] 0.6 mg/dL 0.5 - 1 mg/dL [employer] Phone: GFR >60 [facility] [employer] Phone: GFR Non- >60 >=60 mL/min/1.73 [employer] ([employer]) Phone: Comment on above: Chronic Kidney Disea se: less than 60 ml/min/1.73 sq.m. Kidney Failure: less than 15 ml/min/1.73 sq.m. Results valid for patients 18 years and older. Glucose [Mass/Vol] 97 mg/dL 74 - 99 mg/dL [employer] ([employer]) Phone: Interpretation and review of laboratory results Abnormal [employer] Phone: Potassium [Moles/Vol] 4.3 mmol/L 3.5 - 5 mmol/L [employer] ([employer] Phone: Sodium [Moles/Vol] 140 mmol/L 132 - 146 mmol/L [employer] ([employer]) Phone: Urea nitrogen [Mass/Vol] 9 mg/dL 6 - 20 mg/dL [employer] ([employer] Phone: CBC auto differentialOrdered By: Suzanne Mir on 05-06-2019 Anisocytosis Ql (Bld) 1+ [facility] [employer] Work Phone: Basophils (Bld) [#/Vol] 0.01 10*3/uL [facility] Phone: Basophils/100 WBC (Bld) 0.1 % 0 - 2 % M [facility] [employer] Work Phone: Eosinophils Absolute 0.00 Low [facility] [employer] Phone: Eosinophils/100 WBC (Bld) 0 % 0 - 6 % [facility] Phone: Hematocrit (Bld) [Volume fraction] 35.1 % 34 - 48 % [employer] Phone: Hemoglobin (Bld) [Mass/Vol] 9.6 g/dL Low 11.5 - 15.5 g/dL [employer] ([employer] Phone: Immature Granulocytes # 0.21 E9/L [employer] Phone: Immature granulocytes/100 WBC (Bld) 2.2 % 0 - 5 % [employer] ([employer]) Phone: Interpretation and review of laboratory results Abnormal [employer] ([employer] Phone: Lymphocytes Absolute 1.61 [employer] Phone: Lymphocytes/100 WBC (Bld) 16.8 % Low 20 - 42 % [employer] Phone: MCH (RBC) [Entitic mass] 20.3 pg Low 26 - 35 pg [employer] ([employer]) Phone: MCHC 27.4 % Low 32 - 34.5 % [employer] ([employer] Phone: MCV (RBC) [Entitic vol] 74.4 fL Low 80 - 99.9 fL [employer] ([employer] Phone: Monocytes Absolute 0.70 [employer] ([employer] Phone: Monocytes/100 WBC (Bld) 7.3 % 2 - 12 % [employer] Phone: Neutrophils Absolute 7.07 [employer] Phone: Neutrophils/100 WBC (Bld) 73.6 % 43 - 80 % [employer] Phone: Ovalocytes 1+ [employer] Phone: Platelet mean volume (Bld) [Entitic vol] 9.7 fL 7 - 12 fL [employer] Phone: Platelets (Bld) [#/Vol] 345 10*3/uL [employer] Phone: Poikilocytes 1+ [employer] Work Phone: Polychromasia 1+ [employer] Work Phone: RBC (Bld) [#/Vol] 4.72 10*6/uL [employer] Work Phone: RDW 17.8 fL High 11.5 - 15 fL [employer] Work Phone: Tear Drop Cells 1+ [facility] [facility] Work Phone: WBC (Bld) [#/Vol] 9.6 10*3/uL [employer] Work Phone: Basic Metabolic Panel w/ Ref joyti to MGOrdered By: Suzanne Mir on 05-05-2019 Anion gap [Moles/Vol] 7 mmol/L 7 - 16 mmol/L [employer] ([employer] Phone: Calcium [Mass/Vol] 8.6 mg/dL 8.6 - 10. 2 mg/dL [employer] Phone: Chloride [Moles/Vol] 100 mmol/L 98 - 10 7 mmol/L [employer] Phone: CO2 [Moles/Vol] 34 mmol/L High 22 - 29 mmol/L [employer] ([employer] Phone: Creatinine [Mass/Vol] 0.6 mg/dL 0.5 - 1 mg/dL [employer] Phone: GFR >60 [employer] Work Phone: GFR Non- >60 >=60 mL/min/1.73 [employer] ([employer] Phone: Comment on above: Chronic Kidney Disea se: less than 60 ml/min/1.73 sq.m. Kidney Failure: less than 15 ml/min/1.73 sq.m. Results valid for patients 18 years and older. Glucose [Mass/Vol] 109 mg/dL High 74 - 99 mg/dL [employer] ([employer] Phone: Interpretation and review of laboratory results Abnormal [employer] Phone: Potassium [Moles/Vol] 4.5 mmol/L 3.5 - 5 mmol/L [employer] Work Phone: Sodium [Moles/Vol] 141 mmol/L 132 - 146 mmol/L [employer] Phone: Urea nitrogen [Mass/Vol] 8 mg/dL 6 - 20 mg/dL [employer] Phone: CBC auto differentialOrdered By: Suzanne Mir on 05-05-2019 Anisocytosis Ql (Bld) 1+ [facility] [employer] Work Phone: Basophils (Bld) [#/Vol] 0.01 10*3/uL [employer] Phone: Basophils/100 WBC (Bld) 0.1 % 0 - 2 % M [employer] Work Phone: Eosinophils Absolute 0.00 Low [employer] Phone: Eosinophils/100 WBC (Bld) 0 % 0 - 6 % [employer] Phone: Hematocrit (Bld) [Volume fraction] 32.1 % Low 34 - 48 % [employer] Phone: Hemoglobin (Bld) [Mass/Vol] 8.7 g/dL Low 11.5 - 15.5 g/dL [employer] Phone: Hypochromia 1+ [employer] Work Phone: Immature Granulocytes # 0.17 E9/L [employer] Phone: Immature granulocytes/100 WBC (Bld) 1.6 % 0 - 5 % [employer] Phone: Interpretation and review of laboratory results Abnormal [employer] Phone: Lymphocytes Absolute 1.66 [employer] Work Phone: Lymphocytes/100 WBC (Bld) 15.5 % Low 20 - 42 % [employer] Work Phone: MCH (RBC) [Entitic mass] 20.4 pg Low 26 - 35 pg [employer] Work Phone: MCHC 27.1 % Low 32 - 34.5 % [employer] Work Phone: MCV (RBC) [Entitic vol] 75.4 fL Low 80 - 99.9 fL [employer] Work Phone: Monocytes Absolute 0.70 [employer] Work Phone: Monocytes/100 WBC (Bld) 6.5 % 2 - 12 % [facility] Work Phone: Neutrophils Absolute 8.18 High [employer] Phone: Neutrophils/100 WBC (Bld) 76.3 % 43 - 80 % [employer] Work Phone: Ovalocytes 1+ [employer] Work Phone: Platelet mean volume (Bld) [Entitic vol] 9.9 fL 7 - 12 fL [employer] Work Phone: Platelets (Bld) [#/Vol] 318 10*3/uL [employer] Work Phone: Poikilocytes 1+ [employer] Work Phone: Polychromasia 1+ [employer] Work Phone: RBC (Bld) [#/Vol] 4.26 10*6/uL [employer] Work Phone: RDW 17.8 fL High 11.5 - 15 fL [employer] Work Phone: WBC (Bld) [#/Vol] 10.7 10*3/uL [employer] Work Phone: Respiratory CultureOrdered B y: Ashia Weiss on 05-05-2019 CULTURE, RESPIRATORY Oral Pharyngeal Jed present [employer] Work Phone: Smear, Respiratory Group 5: >25 PMN's/LPF and <10 Epithelial cells/LPF Moderate Polymorphonuclear leukocytes Rare Epithelial cells Rare Gram positive diplococci Rare Gram negative diplococci Rare Gram negative rods [employer] Phone: Source: SPUEX Site: [employer] Phone: Basic Metabolic Panel w/ Ref jyoti to MGOrdered By: Suzanne Mir on 05-04-2019 Anion gap [Moles/Vol] 8 mmol/L 7 - 16 mmol/L [employer] Phone: Calcium [Mass/Vol] 8.8 mg/dL 8.6 - 10. 2 mg/dL [employer] Phone: Chloride [Moles/Vol] 97 mmol/L Low 98 - 10 7 mmol/L [employer] Phone: CO2 [Moles/Vol] 33 mmol/L High 22 - 29 mmol/L [employer] Phone: Creatinine [Mass/Vol] 0.6 mg/dL 0.5 - 1 mg/dL [employer] Phone: GFR >60 [employer] Phone: GFR Non- >60 >=60 mL/min/1.73 [employer] Phone: Comment on above: Chronic Kidney Disea se: less than 60 ml/min/1.73 sq.m. Kidney Failure: less than 15 ml/min/1.73 sq.m. Results valid for patients 18 years and older. Glucose [Mass/Vol] 116 mg/dL High 74 - 99 mg/dL [employer] Phone: Interpretation and review of laboratory results Abnormal [employer] Phone: Potassium [Moles/Vol] 4.3 mmol/L 3.5 - 5 mmol/L [employer] Phone: Sodium [Moles/Vol] 138 mmol/L 132 - 146 mmol/L [employer] Phone: Urea nitrogen [Mass/Vol] 7 mg/dL 6 - 20 mg/dL [employer] Work Phone: CBC auto differentialOrdered By: Suzanne Mir on 05-04-2019 Anisocytosis Ql (Bld) 1+ [facility] [employer] Work Phone: Basophils (Bld) [#/Vol] 0.02 10*3/uL [employer] Work Phone: Basophils/100 WBC (Bld) 0.2 % 0 - 2 % M [employer] Work Phone: Eosinophils Absolute 0.00 Low [employer] Phone: Eosinophils/100 WBC (Bld) 0 % 0 - 6 % [employer] Phone: Hematocrit (Bld) [Volume fraction] 33.0 % Low 34 - 48 % [employer] Work Phone: Hemoglobin (Bld) [Mass/Vol] 9.0 g/dL Low 11.5 - 15.5 g/dL [employer] Phone: Hypochromia 2+ [employer] Phone: Immature Granulocytes # 0.18 E9/L [employer] Phone: Immature granulocytes/100 WBC (Bld) 1.7 % 0 - 5 % [employer] Phone: Interpretation and review of laboratory results Abnormal [employer] Work Phone: Lymphocytes Absolute 0.82 Low [employer] Work Phone: Lymphocytes/100 WBC (Bld) 7.5 % Low 20 - 42 % [employer] Phone: MCH (RBC) [Entitic mass] 20.5 pg Low 26 - 35 pg [employer] Work Phone: MCHC 27.3 % Low 32 - 34.5 % [employer] Work Phone: MCV (RBC) [Entitic vol] 75.0 fL Low 80 - 99.9 fL [employer] Work Phone: Monocytes Absolute 0.40 [employer] Work Phone: Monocytes/100 WBC (Bld) 3.7 % 2 - 12 % [facility] Work Phone: Neutrophils Absolute 9.45 High [employer] Work Phone: Neutrophils/100 WBC (Bld) 86.9 % High 43 - 80 % [facility] Work Phone: Ovalocytes 1+ [employer] Work Phone: Platelet mean volume (Bld) [Entitic vol] 10.4 fL 7 - 12 fL [employer] Work Phone: Platelets (Bld) [#/Vol] 328 10*3/uL [employer] Work Phone: Poikilocytes 2+ [employer] Work Phone: Polychromasia 1+ [employer] Work Phone: RBC (Bld) [#/Vol] 4.40 10*6/uL [employer] Work Phone: RDW 17.2 fL High 11.5 - 15 fL [employer] Work Phone: Tear Drop Cells 1+ [employer] [facility] Work Phone: WBC (Bld) [#/Vol] 10.9 10*3/uL [employer] Work Phone: Basic Metabolic Panel w/ Ref jyoti to MGOrdered By: Suzanne Mir on 05-03-2019 Anion gap [Moles/Vol] 8 mmol/L 7 - 16 mmol/L [employer] Work Phone: Calcium [Mass/Vol] 8.1 mg/dL Low 8.6 - 10. 2 mg/dL [employer] Phone: Chloride [Moles/Vol] 96 mmol/L Low 98 - 10 7 mmol/L [employer] Phone: CO2 [Moles/Vol] 34 mmol/L High 22 - 29 mmol/L [employer] Phone: Creatinine [Mass/Vol] 0.6 mg/dL 0.5 - 1 mg/dL [employer] Phone: GFR >60 [facility] [employer] Phone: GFR Non- >60 >=60 mL/min/1.73 [employer] Phone: Comment on above: Chronic Kidney Disea se: less than 60 ml/min/1.73 sq.m. Kidney Failure: less than 15 ml/min/1.73 sq.m. Results valid for patients 18 years and older. Glucose [Mass/Vol] 101 mg/dL High 74 - 99 mg/dL [employer] Phone: Interpretation and review of laboratory results Abnormal [employer] Phone: Potassium [Moles/Vol] 3.9 mmol/L 3.5 - 5 mmol/L [facility] Phone: Sodium [Moles/Vol] 138 mmol/L 132 - 146 mmol/L [facility] Phone: Urea nitrogen [Mass/Vol] 6 mg/dL 6 - 20 mg/dL [employer] Phone: CBC auto differentialOrdered By: Suzanne Mir on 05-03-2019 Anisocytosis Ql (Bld) 2+ [employer] Work Phone: Basophils (Bld) [#/Vol] 0.02 10*3/uL [facility] Phone: Basophils/100 WBC (Bld) 0.2 % 0 - 2 % M [facility] Phone: Eosinophils Absolute 0.47 [employer] Work Phone: Eosinophils/100 WBC (Bld) 5.4 % 0 - 6 % [employer] Work Phone: Hematocrit (Bld) [Volume fraction] 33.1 % Low 34 - 48 % [employer] Work Phone: Hemoglobin (Bld) [Mass/Vol] 8.9 g/dL Low 11.5 - 15.5 g/dL [employer] Work Phone: Hypochromia 1+ [employer] Work Phone: Immature Granulocytes # 0.10 E9/L M [employer] Work Phone: Immature granulocytes/100 WBC (Bld) 1.1 % 0 - 5 % [employer] Phone: Interpretation and review of laboratory results Abnormal [employer] Phone: Lymphocytes Absolute 1.17 Low [employer] Work Phone: Lymphocytes/100 WBC (Bld) 13.4 % Low 20 - 42 % [employer] Work Phone: MCH (RBC) [Entitic mass] 20.5 pg Low 26 - 35 pg [employer] Phone: MCHC 26.9 % Low 32 - 34.5 % [employer] Phone: MCV (RBC) [Entitic vol] 76.3 fL Low 80 - 99.9 fL [employer] Phone: Monocytes Absolute 0.65 [employer] Phone: Monocytes/100 WBC (Bld) 7.5 % 2 - 12 % M [employer] Work Phone: Neutrophils Absolute 6.29 [employer] Work Phone: Neutrophils/100 WBC (Bld) 72.4 % 43 - 80 % [employer] Work Phone: Ovalocytes 1+ [employer] Work Phone: Platelet mean volume (Bld) [Entitic vol] 9.9 fL 7 - 12 fL [employer] Work Phone: Platelets (Bld) [#/Vol] 247 10*3/uL [employer] Work Phone: Poikilocytes 1+ [employer] Work Phone: Polychromasia 1+ [employer] Work Phone: RBC (Bld) [#/Vol] 4.34 10*6/uL [employer] Work Phone: RDW 17.4 fL High 11.5 - 15 fL [employer] Work Phone: WBC (Bld) [#/Vol] 8.7 10*3/uL [employer] Work Phone: Basic Metabolic Panel w/ Ref jyoti to MGOrdered By: Suzanne Mir on 05-02-2019 Anion gap [Moles/Vol] 9 mmol/L 7 - 16 mmol/L [employer] Phone: Calcium [Mass/Vol] 8.1 mg/dL Low 8.6 - 10. 2 mg/dL [employer] Phone: Chloride [Moles/Vol] 93 mmol/L Low 98 - 10 7 mmol/L [employer] Phone: CO2 [Moles/Vol] 35 mmol/L High 22 - 29 mmol/L [employer] Phone: Creatinine [Mass/Vol] 0.6 mg/dL 0.5 - 1 mg/dL [employer] Phone: GFR >60 [employer] Work Phone: GFR Non- >60 >=60 mL/min/1.73 [employer] Work Phone: Comment on above: Chronic Kidney Disea se: less than 60 ml/min/1.73 sq.m. Kidney Failure: less than 15 ml/min/1.73 sq.m. Results valid for patients 18 years and older. Glucose [Mass/Vol] 104 mg/dL High 74 - 99 mg/dL [employer] Phone: Interpretation and review of laboratory results Abnormal [employer] Phone: Potassium [Moles/Vol] 3.8 mmol/L 3.5 - 5 mmol/L [employer] Phone: Sodium [Moles/Vol] 137 mmol/L 132 - 146 mmol/L [employer] Phone: Urea nitrogen [Mass/Vol] 5 mg/dL Low 6 - 20 mg/dL [employer] Phone: CBC auto differentialOrdered By: Suzanne Mir on 05-02-2019 Anisocytosis Ql (Bld) 1+ [employer] Work Phone: Basophils (Bld) [#/Vol] 0.03 10*3/uL [employer] Phone: Basophils/100 WBC (Bld) 0.3 % 0 - 2 % [employer] Phone: Eosinophils Absolute 0.29 [employer] Phone: Eosinophils/100 WBC (Bld) 2.5 % 0 - 6 % [employer] Phone: Hematocrit (Bld) [Volume fraction] 35.3 % 34 - 48 % [employer] Phone: Hemoglobin (Bld) [Mass/Vol] 9.6 g/dL Low 11.5 - 15.5 g/dL [employer] Phone: Hypochromia 1+ [employer] Phone: Immature Granulocytes # 0.12 E9/L [employer] Phone: Immature granulocytes/100 WBC (Bld) 1.0 % 0 - 5 % [employer] Phone: Interpretation and review of laboratory results Abnormal [employer] Phone: Lymphocytes Absolute 1.35 Low [employer] Phone: Lymphocytes/100 WBC (Bld) 11.5 % Low 20 - 42 % [employer] Phone: MCH (RBC) [Entitic mass] 20.4 pg Low 26 - 35 pg [employer] Phone: MCHC 27.2 % Low 32 - 34.5 % [employer] Phone: MCV (RBC) [Entitic vol] 74.9 fL Low 80 - 99.9 fL [employer] Phone: Monocytes Absolute 0.86 [employer] Phone: Monocytes/100 WBC (Bld) 7.4 % 2 - 12 % [facility] Phone: Neutrophils Absolute 9.04 High [employer] Phone: Neutrophils/100 WBC (Bld) 77.3 % 43 - 80 % [employer] Phone: Ovalocytes 1+ [employer] Phone: Platelet mean volume (Bld) [Entitic vol] 10.2 fL 7 - 12 fL [employer] Phone: Platelets (Bld) [#/Vol] 293 10*3/uL [employer] Phone: Poikilocytes 1+ [employer] Phone: RBC (Bld) [#/Vol] 4.71 10*6/uL [employer] Phone: RDW 17.2 fL High 11.5 - 15 fL [employer] Phone: WBC (Bld) [#/Vol] 11.7 10*3/uL [employer] Work Phone: Legionella antigen, urineOrd ered By: Suzanne Mir on 05-02-2019 L. pneumophila Serogp 1 Ur Ag Presumptive Negative -suggesting no recent or current infections with Legionella pneumophila serogroup 1. Infection to Legionella cannot be ruled out since other serogroups and species may cause infection, antigen may not be present in early infection, or level of antigen may be below the detection limit. Normal Range: Presumptive Negative [employer] Phone: Source: URV Site: Urine&Urine [employer] Phone: Respiratory Panel, Molecular Ordered By: Suzanne Mir on 05-02-2019 Adenovirus by PCR Not detected Not Detected [employer] Phone: Bordetella parapertussis by PCR Not detected Not Detected [employer] Phone: Bordetella pertussis by PCR Not detected Not Detected [employer] Phone: Chlamydophilia pneumoniae by PCR Not detected Not Detected [employer] Phone: Coronavirus 229E by PCR Not detected Not Detected [employer] Phone: Coronavirus HKU1 by PCR Not detected Not Detected [employer] Phone: Coronavirus NL63 by PCR Not detected Not Detected [employer] Phone: Coronavirus OC43 by PCR Not detected Not Detected [employer] Phone: Human Metapneumovirus by PCR Not detected Not Detected [employer] Phone: Human Rhinovirus/Enterovirus by PCR Not detected Not Detected [employer] Phone: Influenza A by PCR Not detected Not Detected [employer] Phone: Influenza B by PCR Not detected Not Detected [employer] Phone: Mycoplasma pneumoniae by PCR Not detected Not Detected [employer] Phone: Parainfluenza Virus 1 by PCR Not detected Not Detected [employer] Phone: Parainfluenza Virus 2 by PCR Not detected Not Detected [employer] Phone: Parainfluenza Virus 3 by PCR Not detected Not Detected [employer] Phone: Parainfluenza Virus 4 by PCR Not detected Not Detected [employer] Phone: Respiratory Syncytial Virus by PCR Not detected Not Detected [employer] Phone: Strep Pneumoniae AntigenOrde red By: Suzanne Mir on 05-02-2019 STREP PNEUMONIAE ANTIGEN, URINE Presumptive NEGATIVE for Pneumococcal pneumonia, suggesting no current or recent pneumococcal infection. Infection due to S. pneumoniae cannot be ruled out since the antigen present in the sample may be below the detection limit of the test. [employer] Phone: Source: URV Site: Urine&Urine [employer] Phone: BASIC METABOLIC PANELOrdered By: Aric Simental on 05-01-2019 Anion gap [Moles/Vol] 9 mmol/L 7 - 16 mmol/L [employer] Phone: Calcium [Mass/Vol] 8.8 mg/dL 8.6 - 10. 2 mg/dL [employer] Phone: Chloride [Moles/Vol] 92 mmol/L Low 98 - 10 7 mmol/L [employer] Phone: CO2 [Moles/Vol] 35 mmol/L High 22 - 29 mmol/L [employer] Phone: Creatinine [Mass/Vol] 0.7 mg/dL 0.5 - 1 mg/dL [employer] Phone: GFR >60 [employer] Phone: GFR Non- >60 >=60 mL/min/1.73 [employer] Phone: Comment on above: Chronic Kidney Disea se: less than 60 ml/min/1.73 sq.m. Kidney Failure: less than 15 ml/min/1.73 sq.m. Results valid for patients 18 years and older. Glucose [Mass/Vol] 113 mg/dL High 74 - 99 mg/dL [employer] Phone: Interpretation and review of laboratory results Abnormal [employer] Phone: Potassium [Moles/Vol] 4.2 mmol/L 3.5 - 5 mmol/L [employer] Phone: Sodium [Moles/Vol] 136 mmol/L 132 - 146 mmol/L [employer] Phone: Urea nitrogen [Mass/Vol] 6 mg/dL 6 - 20 mg/dL [employer] Phone: Blood Gas, ArterialOrdered B y: Unknown Result on 05-01-2019 B.E. 8.1 mmol/L High -3 - 3 mmol/L [employer] [employer] ([employer]) Phone: Body temperature 98.6 [degF] [employer] Work Phone: COHb 0.7 % 0 - 1.5 % [employer] ([employer]) Phone: Critical(s) Notified . No Critical Values [employer] ([employer]) Phone: Date Analyzed [id number] [employer] Work Phone: Date Of Collection [employer] ([employer]) Phone: HCO3 (Bld) [Moles/Vol] 35.0 mmol/L High 22 - 26 mmol/L [employer] ([employer]) Phone: HHb 12.7 % High 0 - 5 % [employer] ([employer]) Phone: Interpretation and review of laboratory results Abnormal [employer] ([employer]) Phone: Lab [id number] [employer] ([employer]) Phone: MetHb 0.5 % 0 - 1.5 % [employer] Work Phone: Mode NC- 6L [facility] Work Phone: O2 Content 13.5 mL/dL [employer] Work Phone: O2Hb 86.1 % Low 94 - 97 % [facility] Work Phone: Second Helper ID [id number] [facility] Work Phone: Oxygen (Bld) [Partial pressure] 55.0 mm[Hg] Low [facility] Work Phone: Oxygen saturation in Blood 87.1 % Low 92 - 98.5 % [facility] Work Phone: PCO2 61.7 High [facility] Work Phone: pH, Blood Gas 7.372 [employer] Work Phone: Source: Blood Arterial [employer] [facility] [employer] Work Phone: tHb (est) 11.1 g/dL Low 11.5 - 16.5 g/dL [facility] Work Phone: Time Analyzed 1308 [employer] Work Phone: Time Collected [employer] Work Phone: Brain Natriuretic PeptideOrd ered By: Aric Simental on 05-01-2019 Interpretation and review of laboratory results Abnormal [facility] Phone: Natriuretic peptide B (Bld) [Mass/Vol] 219 pg/mL High 0 - 125 pg/mL [facility] Work Phone: CBC Auto DifferentialOrdered By: Aric Simental on 05-01-2019 Anisocytosis Ql (Bld) 1+ [facility] [employer] Work Phone: Basophils (Bld) [#/Vol] 0.02 10*3/uL [facility] Work Phone: Basophils/100 WBC (Bld) 0.1 % 0 - 2 % [facility] Work Phone: Eosinophils Absolute 0.18 [employer] Work Phone: Eosinophils/100 WBC (Bld) 1.3 % 0 - 6 % [employer] ([employer]) Phone: Hematocrit (Bld) [Volume fraction] 36.7 % 34 - 48 % [employer] ([employer]) Phone: Hemoglobin (Bld) [Mass/Vol] 10.3 g/dL Low 11.5 - 15.5 g/dL [employer] ([employer]) Phone: Immature Granulocytes # 0.19 E9/L [facility] [employer] Phone: Immature granulocytes/100 WBC (Bld) 1.4 % 0 - 5 % [employer] ([employer]) Phone: Interpretation and review of laboratory results Abnormal [employer] ([employer]) Phone: Lymphocytes Absolute 1.30 Low [employer] Phone: Lymphocytes/100 WBC (Bld) 9.5 % Low 20 - 42 % [employer] ([employer]) Phone: MCH (RBC) [Entitic mass] 20.6 pg Low 26 - 35 pg [employer] ([employer]) Phone: MCHC 28.1 % Low 32 - 34.5 % [employer] ([employer]) Phone: MCV (RBC) [Entitic vol] 73.5 fL Low 80 - 99.9 fL [employer] ([employer]) Phone: Monocytes Absolute 0.97 High [employer] ([employer]) Phone: Monocytes/100 WBC (Bld) 7.1 % 2 - 12 % [facility] [employer] Phone: Neutrophils Absolute 11.08 High [employer] Phone: Neutrophils/100 WBC (Bld) 80.6 % High 43 - 80 % [employer] ([employer]) Phone: Ovalocytes 1+ [employer] ([employer]) Phone: Platelet mean volume (Bld) [Entitic vol] 10.1 fL 7 - 12 fL [employer] ([employer]) Phone: Platelets (Bld) [#/Vol] 314 10*3/uL [employer] ([employer]) Phone: Poikilocytes 1+ [employer] ([employer]) Phone: RBC (Bld) [#/Vol] 4.99 10*6/uL [employer] ([employer]) Phone: RDW 17.1 fL High 11.5 - 15 fL [employer] ([employer]) Phone: Target Cells 1+ [employer] ([employer]) Phone: WBC (Bld) [#/Vol] 13.7 10*3/uL High [employer] ([employer]) Phone: EKG 12 LeadOrdered By: Aric Simental on 05-01-2019 Atrial Rate 121 BPM [employer] ([employer]) Phone: P [place] 64 degrees [employer] ([employer]) Phone: P-R Interval 142 ms [employer] ([employer]) Phone: Q-T Interval 322 ms [employer] ([employer]) Phone: QRS Duration 88 ms [employer] ([employer]) Phone: QTc Calculation (Bazett) 457 ms [employer] ([employer]) Phone: R [place] 115 degrees [employer] ([employer]) Phone: T [place] 17 degrees [employer] ([employer]) Phone: Ventricular Rate 121 BPM [employer] Phone: Sinus tachycardia Right axis deviation Possible Inferior infarct , age undetermined Loss of anterior forces Abnormal ECG When compared with ECG of 01-APR-2019 12:47, QRS axis shifted right Confirmed by Micah Jj ([id number]) on 05/01/2019 9:56:06 PM [employer] ([employer]) Phone: Eliud, Tesfaye Incoming Ekg Results From [facility] - 05/01/2019 9:56 PM EST Sinus tachycardia Right axis deviation Possible Inferior infarct , age undetermined Loss of anterior forces Abnormal ECG When compared with ECG of 01-APR-2019 12:47, QRS axis shifted right Confirmed by Micah Jj ([id number]) on 05/01/2019 9:56:06 PM [employer] ([employer]) Phone: MAGNESIUMOrdered By: Aric porter on 05-01-2019 Magnesium [Mass/Vol] 2.1 mg/dL 1.6 - 2 .6 mg/dL [employer] ([employer]) Phone: , urineOrdered By: Suzanne Mir on 05-01-2019 Beta HCG ( test) Ql (U) Negative NEGATIVE [employer] ([employer]) Phone: Comment on above: Test results should always be evaluated with all available clinical data. 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 If a negative result is obtainedand is still suspected, a first morning sample should be obtained and tested. ProcalcitoninOrdered By: Michael Mir on 05-01-2019 Interpretation and review of laboratory results Abnormal [employer] ([employer]) Phone: Procalcitonin 0.18 ng/mL High 0 - 0.08 ng/mL [employer] ([employer]IE) Phone: RAPID INFLUENZA A/B ANTIGENS Ordered By: Aric Simental on 05-01-2019 Influenza A by PCR Not detected Not Detected [employer] ([employer]) Phone: Influenza B by PCR Not detected Not Detected [employer] ([employer]) Phone: TSH without ReflexOrdered By : Aric Simental on 05-01-2019 TSH Qn 1.720 m[IU]/L [employer] Work Phone: XR CHEST PORTABLEOrdered By: Aric Simental on 05-01-2019 Patchy perihilar and bibasilar infiltrates and pleural effusions which may be due to pneumonia or CHF. [employer] ([employer]) Phone: Patient : 1990 Age: 29 years Gender: Female Order Date: 05/01/2019 12:30 PM EXAM: XR CHEST PORTABLE one image INDICATION: shortness of breath, cough, congestion shortness of breath, cough, congestion COMPARISON: 04/01/2019 FINDINGS: There is borderline cardiac size. There is patchy perihilar and bibasilar infiltrates and pleural effusions, right more than left. [employer] ([employer]) Phone: Eliud, y Incoming Radiant Results From [employer] - 05/01/2019 1:18 PM EST Patient : 1990 Age: 29 years Gender: Female Order Date: 05/01/2019 12:30 PM EXAM: XR CHEST PORTABLE one image INDICATION: shortness of breath, cough, congestion shortness of breath, cough, congestion COMPARISON: 04/01/2019 FINDINGS: There is borderline cardiac size. There is patchy perihilar and bibasilar infiltrates and pleural effusions, right more than left. IMPRESSION: Patchy perihilar and bibasilar infiltrates and pleural effusions which may be due to pneumonia or CHF. [employer] ([employer]) Phone: Basic Metabolic Panelon 03-09 Anion gap [Moles/Vol] 10 mmol/L 7 - 16 mmol/L [place] Calcium [Mass/Vol] 9.0 mg/dL 8.6 - 10. 2 mg/dL [place] Chloride [Moles/Vol] 99 mmol/L 98 - 10 7 mmol/L [place] CO2 [Moles/Vol] 29 mmol/L 22 - 29 mmol/L [place] Creatinine [Mass/Vol] 0.8 mg/dL 0.5 - 1 mg/dL [place] GFR >60 [place] GFR Non- >60 >=60 mL/min/1.73 [place] Comment on above: Chronic Kidney Disea se: less than 60 ml/min/1.73 sq.m. Kidney Failure: less than 15 ml/min/1.73 sq.m. Results valid for patients 18 years and older. Glucose [Mass/Vol] 94 mg/dL 74 - 99 mg/dL [place] Potassium [Moles/Vol] 4.7 mmol/L 3.5 - 5 mmol/L [place] Sodium [Moles/Vol] 138 mmol/L 132 - 146 mmol/L [place] Urea nitrogen [Mass/Vol] 7 mg/dL 6 - 20 mg/dL [place] CBC Auto Differentialon 03-09 Anisocytosis Ql (Bld) 1+ [place] Basophils (Bld) [#/Vol] 0.04 10*3/uL [place] Basophils/100 WBC (Bld) 0.3 % 0 - 2 % M [place] Eosinophils (Bld) [#/Vol] 0.10 10*3/uL [place] Eosinophils/100 WBC (Bld) 0.8 % 0 - 6 % [place] Erythrocyte distribution width (RBC) [Ratio] 18.1 fL High 11.5 - 15 fL [place] Hematocrit (Bld) [Volume fraction] 40.7 % 34 - 48 % [place] Hemoglobin (Bld) [Mass/Vol] 11.7 g/dL 11.5 - 15.5 g/dL [place] Immature granulocytes (Bld) [#/Vol] 0.08 10*3/uL E9/L [place] Immature granulocytes/100 WBC (Bld) 0.6 % 0 - 5 % [place] Interpretation and review of laboratory results Abnormal [place] Lymphocytes (Bld) [#/Vol] 1.41 10*3/uL [place] Lymphocytes/100 WBC (Bld) 10.7 % Low 20 - 42 % [place] MCH (RBC) [Entitic mass] 21.1 pg Low 26 - 35 pg [place] MCHC (RBC) [Mass/Vol] 28.7 % Low 32 - 34.5 % [place] MCV (RBC) [Entitic vol] 73.5 fL Low 80 - 99.9 fL [place] Monocytes (Bld) [#/Vol] 0.83 10*3/uL [facility] PEGG[facility] Monocytes/100 WBC (Bld) 6.3 % 2 - 12 % M [place] Neutrophils Absolute 10.74 High [place] Neutrophils/100 WBC (Bld) 81.3 % High 43 - 80 % [place] Ovalocytes 1+ [place] Platelet mean volume (Bld) [Entitic vol] 9.8 fL 7 - 12 fL [place] Platelets (Bld) [#/Vol] 371 10*3/uL [place] Poikilocytes 1+ [place] RBC (Bld) [#/Vol] 5.54 10*6/uL [place] Target Cells 1+ [place] WBC (Bld) [#/Vol] 13.2 10*3/uL [place] CTA CHEST W CONTRASTon 04-01 1. Numerous interstitial and nodular opacities are scattered throughout both lungs with peribronchial thickening. Findings suggest generalized infectious or inflammatory bronchiolitis versus atypical viral or mycoplasma pneumonia throughout both lungs. More confluent airspace opacities are seen in right lung apex. 2. Mediastinal and hilar lymphadenopathy. 3. Splenomegaly. Follow-up recommended to assure resolution. ALERT: THIS IS AN ABNORMAL REPORT. [place] Patient : 1990 Age: 29 years Gender: Female Order Date: 04/01/2019 1:30 PM EXAM: CTA CHEST W CONTRAST COMPARISON: January 17, 2019 INDICATION: sob sob TECHNIQUE: Axial thin section CT imaging was obtained from the apices of the lungs through the lung bases following a rapid bolus administration of IV contrast. Coronal and sagittal MIP images were obtained for aid in interpretation. No 3D imaging performed. Low-dose CT acquisition technique included one of the following options; 1. Automated exposure control, 2. Adjustment of mA and/or kV according to the patient's size or 3. Use of iterative reconstruction. FINDINGS: Pulmonary arteries demonstrate normal opacification without filling defects to suggest pulmonary arterial emboli. The heart is normal in size. No evidence of pericardial effusion. There are centrilobular nodular and branching opacities scattered in both lungs. Confluent opacities are seen at right lung apex. There is peribronchial thickening bilaterally. There is mediastinal and hilar lymphadenopathy. No pleural effusion. No pneumothorax. View of upper abdomen shows [id number] splenomegaly. [place] Eliud, Mhy Incoming Radiant Results From [employer] - 04/01/2019 2:33 PM EST Patient : 1990 Age: 29 years Gender: Female Order Date: 04/01/2019 1:30 PM EXAM: CTA CHEST W CONTRAST COMPARISON: January 17, 2019 INDICATION: sob sob TECHNIQUE: Axial thin section CT imaging was obtained from the apices of the lungs through the lung bases following a rapid bolus administration of IV contrast. Coronal and sagittal MIP images were obtained for aid in interpretation. No 3D imaging performed. Low-dose CT acquisition technique included one of the following options; 1. Automated exposure control, 2. Adjustment of mA and/or kV according to the patient's size or 3. Use of iterative reconstruction. FINDINGS: Pulmonary arteries demonstrate normal opacification without filling defects to suggest pulmonary arterial emboli. The heart is normal in size. No evidence of pericardial effusion. There are centrilobular nodular and branching opacities scattered in both lungs. Confluent opacities are seen at right lung apex. There is peribronchial thickening bilaterally. There is mediastinal and hilar lymphadenopathy. No pleural effusion. No pneumothorax. View of upper abdomen shows [id number] splenomegaly. IMPRESSION: 1. Numerous interstitial and nodular opacities are scattered throughout both lungs with peribronchial thickening. Findings suggest generalized infectious or inflammatory bronchiolitis versus atypical viral or mycoplasma pneumonia throughout both lungs. More confluent airspace opacities are seen in right lung apex. 2. Mediastinal and hilar lymphadenopathy. 3. Splenomegaly. Follow-up recommended to assure resolution. ALERT: THIS IS AN ABNORMAL REPORT. [facility] [place] POC Urine Qualon 1 06-01-2018 Beta HCG ( test) Ql (U) Negative Negative [place] Beta HCG ( test) Ql (U) [id number] [place] Negative QC Pass/Fail Pass [place], [place] Positive QC Pass/Fail Pass [place] SPECIMEN REJECTIONon 019 Reason for Rejection see below [place], [place] Comment on above: Unable to perform te sting; specimen grossly hemolyzed. To perform testing the specimen will need to be recollected. Hemolyz Rejected Test lucien Bae PEGGY RYAN CALL Alexandro GOMEZ tel. [phone], Rejected Test Name/Called to: dimer/ demetrio baeza rn, 04/01/2019 13:37, by [facility] PEGGY Mercado XR CHEST PORTABLEon 04-01-20 19 The patient is of large habitus, and thoracic volume remains symmetrically reduced, with subtle blunting of the lateral sulcus on the left and linear density adjacent the diaphragmatic contour suggesting basilar atelectasis on the left. Airspace disease and/or pleural fluid was much more prominent on the 2 prior comparison studies in the left lower chest. The heart is not enlarged. Pulmonary vasculature is very minimally prominent, which could indicate mild edema, not necessarily cardiogenic. This is most evident in the medial right pulmonary apical region. If there is a suspicion of an apical pneumonia, either a two-view chest radiographic studies or noncontrast chest CT imaging would BE options for confirmation. There is no evidence of consolidation at this time, however. [facility] Eliud, Mhy Incoming Radiant Results From [employer] - 04/01/2019 2:01 PM EST Patient : 1990 Age: 29 years Gender: Female Order Date: 04/01/2019 12:45 PM Exam: XR CHEST PORTABLE Number of Images: 1 view Indication: Shortness of breath Comparison: Anterior upright chest February 25, 2019 and similar study February 23, 2019 Findings: The lungs are symmetrically expanded, and show very subtle blunting of the lateral sulcus on the left which could represent some residual or recurrent minimal pleural fluid. The adjacent pulmonary parenchyma show subtle linear density suggesting subsegmental atelectasis. There is no evidence of consolidative pneumonia, but there is some vague, generalized density in the medial apical region on the right, which could represent airspace disease (the patient is slightly kyphotic in position). Large habitus and symmetrically reduced thoracic volume are also noted. Cardiovascular shadows are normal in appearance. There is no evidence of cardiac enlargement or decompensation. Skeletal structures show no evidence of acute pathology. Overlying oxygen tubing and EKG leads are present. IMPRESSION: The patient is of large habitus, and thoracic volume remains symmetrically reduced, with subtle blunting of the lateral sulcus on the left and linear density adjacent the diaphragmatic contour suggesting basilar atelectasis on the left. Airspace disease and/or pleural fluid was much more prominent on the 2 prior comparison studies in the left lower chest. The heart is not enlarged. Pulmonary vasculature is very minimally prominent, which could indicate mild edema, not necessarily cardiogenic. This is most evident in the medial right pulmonary apical region. If there is a suspicion of an apical pneumonia, either a two-view chest radiographic studies or noncontrast chest CT imaging would BE options for confirmation. There is no evidence of consolidation at this time, however. [place] Patient : 1990 Age: 29 years Gender: Female Order Date: 04/01/2019 12:45 PM Exam: XR CHEST PORTABLE Number of Images: 1 view Indication: Shortness of breath Comparison: Anterior upright chest February 25, 2019 and similar study February 23, 2019 Findings: The lungs are symmetrically expanded, and show very subtle blunting of the lateral sulcus on the left which could represent some residual or recurrent minimal pleural fluid. The adjacent pulmonary parenchyma show subtle linear density suggesting subsegmental atelectasis. There is no evidence of consolidative pneumonia, but there is some vague, generalized density in the medial apical region on the right, which could represent airspace disease (the patient is slightly kyphotic in position). Large habitus and symmetrically reduced thoracic volume are also noted. Cardiovascular shadows are normal in appearance. There is no evidence of cardiac enlargement or decompensation. Skeletal structures show no evidence of acute pathology. Overlying oxygen tubing and EKG leads are present. [place] Basic Metabolic Panel w/ Ref jyoti to MGon 02-27-2019 Anion gap [Moles/Vol] 10 mmol/L 7 - 16 mmol/L [place] Calcium [Mass/Vol] 9.1 mg/dL 8.6 - 10. 2 mg/dL [place] Chloride [Moles/Vol] 102 mmol/L 98 - 10 7 mmol/L [place] CO2 [Moles/Vol] 29 mmol/L 22 - 29 mmol/L [place] Creatinine [Mass/Vol] 0.8 mg/dL 0.5 - 1 mg/dL [place] GFR >60 [place] GFR Non- >60 >=60 mL/min/1.73 [place] Comment on above: Chronic Kidney Disea se: less than 60 ml/min/1.73 sq.m. Kidney Failure: less than 15 ml/min/1.73 sq.m. Results valid for patients 18 years and older. Glucose [Mass/Vol] 100 mg/dL High 74 - 99 mg/dL [place] Interpretation and review of laboratory results Abnormal [place] Potassium [Moles/Vol] 4.5 mmol/L 3.5 - 5 mmol/L [place] Sodium [Moles/Vol] 141 mmol/L 132 - 146 mmol/L [place] Urea nitrogen [Mass/Vol] 11 mg/dL 6 - 20 mg/dL [place] CBC auto differentialon 02-06 Anisocytosis Ql (Bld) 1+ [place] Basophils (Bld) [#/Vol] 0.03 10*3/uL [place] Basophils/100 WBC (Bld) 0.3 % 0 - 2 % [place] Eosinophils (Bld) [#/Vol] 0.06 10*3/uL [place] Eosinophils/100 WBC (Bld) 0.6 % 0 - 6 % [place] Erythrocyte distribution width (RBC) [Ratio] 18.6 fL High 11.5 - 15 fL [place] Hematocrit (Bld) [Volume fraction] 36.9 % 34 - 48 % [place] Hemoglobin (Bld) [Mass/Vol] 10.6 g/dL Low 11.5 - 15.5 g/dL [place] Immature granulocytes (Bld) [#/Vol] 0.50 10*3/uL E9/L [place] Immature granulocytes/100 WBC (Bld) 4.8 % 0 - 5 % [place] Interpretation and review of laboratory results Abnormal [place] Lymphocytes (Bld) [#/Vol] 2.65 10*3/uL [place] Lymphocytes/100 WBC (Bld) 25.6 % 20 - 42 % [place] MCH (RBC) [Entitic mass] 21.3 pg Low 26 - 35 pg [place] MCHC (RBC) [Mass/Vol] 28.7 % Low 32 - 34.5 % [place] MCV (RBC) [Entitic vol] 74.1 fL Low 80 - 99.9 fL [place] Monocytes (Bld) [#/Vol] 0.59 10*3/uL [place] Monocytes/100 WBC (Bld) 5.7 % 2 - 12 % [place] Neutrophils Absolute 6.51 [place], [place] Neutrophils/100 WBC (Bld) 63.0 % 43 - 80 % [place] Ovalocytes 1+ [place] Platelet mean volume (Bld) [Entitic vol] 9.8 fL 7 - 12 fL [place] Platelets (Bld) [#/Vol] 330 10*3/uL [place] Poikilocytes 1+ [place] Polychromasia 1+ [place] RBC (Bld) [#/Vol] 4.98 10*6/uL [place] Tear Drop Cells 1+ [place] WBC (Bld) [#/Vol] 10.3 10*3/uL [place] Basic Metabolic Panel w/ Ref jyoti to MGon 02-26-2019 Anion gap [Moles/Vol] 7 mmol/L 7 - 16 mmol/L [place] Calcium [Mass/Vol] 9.1 mg/dL 8.6 - 10. 2 mg/dL [place] Chloride [Moles/Vol] 101 mmol/L 98 - 10 7 mmol/L [place] CO2 [Moles/Vol] 30 mmol/L High 22 - 29 mmol/L [place] Creatinine [Mass/Vol] 0.7 mg/dL 0.5 - 1 mg/dL [place] GFR >60 [place] GFR Non- >60 >=60 mL/min/1.73 [place] Comment on above: Chronic Kidney Disea se: less than 60 ml/min/1.73 sq.m. Kidney Failure: less than 15 ml/min/1.73 sq.m. Results valid for patients 18 years and older. Glucose [Mass/Vol] 96 mg/dL 74 - 99 mg/dL [place] Interpretation and review of laboratory results Abnormal [place] Potassium [Moles/Vol] 4.9 mmol/L 3.5 - 5 mmol/L [place] Sodium [Moles/Vol] 138 mmol/L 132 - 146 mmol/L [place] Urea nitrogen [Mass/Vol] 10 mg/dL 6 - 20 mg/dL [place] CBC auto differentialon 02-06 Anisocytosis Ql (Bld) 1+ [place] Basophils (Bld) [#/Vol] 0.00 10*3/uL [place] Basophils/100 WBC (Bld) 0.0 % 0 - 2 % [place] Eosinophils (Bld) [#/Vol] 0.09 10*3/uL [place] Eosinophils/100 WBC (Bld) 0.9 % 0 - 6 % [place] Erythrocyte distribution width (RBC) [Ratio] 18.5 fL High 11.5 - 15 fL [place] Hematocrit (Bld) [Volume fraction] 37.2 % 34 - 48 % [place] Hemoglobin (Bld) [Mass/Vol] 10.6 g/dL Low 11.5 - 15.5 g/dL [place] Interpretation and review of laboratory results Abnormal [place] Lymphocytes (Bld) [#/Vol] 2.18 10*3/uL [place] Lymphocytes/100 WBC (Bld) 21.7 % 20 - 42 % [place] MCH (RBC) [Entitic mass] 21.3 pg Low 26 - 35 pg [place] MCHC (RBC) [Mass/Vol] 28.5 % Low 32 - 34.5 % [place] MCV (RBC) [Entitic vol] 74.7 fL Low 80 - 99.9 fL [place] Metamyelocytes Relative 0.9 % 0 - 1 % [place] Monocytes (Bld) [#/Vol] 0.79 10*3/uL [place] Monocytes/100 WBC (Bld) 7.8 % 2 - 12 % [place] Neutrophils Absolute 6.93 [place], [place] Neutrophils/100 WBC (Bld) 68.7 % 43 - 80 % [place] Nucleated RBC/100 WBC (Bld) [Ratio] 0.0 % /100 WBC [place] Ovalocytes 1+ [place] Platelet mean volume (Bld) [Entitic vol] 9.6 fL 7 - 12 fL [place] Platelets (Bld) [#/Vol] 318 10*3/uL [place] Poikilocytes 1+ [place] [facility] [place] RBC (Bld) [#/Vol] 4.98 10*6/uL [place] Tear Drop Cells 1+ [place] WBC (Bld) [#/Vol] 9.9 10*3/uL [place] Cortisolon 02-26-2019 Cortisol 0.86 Low [place] Interpretation and review of laboratory results Abnormal [place] Respiratory Cultureon 2018 CULTURE, RESPIRATORY Oral Pharyngeal Jed present [place] Smear, Respiratory Group 6: <25 PMN's/LPF and <25 Epithelial cells/LPF Few Polymorphonuclear leukocytes Epithelial cells not seen Rare Gram negative rods Rare Gram positive cocci in clusters [place] Source: SPUEX Site: Sputum&Sputum [place] Basic Metabolic Panel w/ Ref jyoti to MGon 02-25-2019 Anion gap [Moles/Vol] 8 mmol/L 7 - 16 mmol/L [place] Calcium [Mass/Vol] 8.2 mg/dL Low 8.6 - 10. 2 mg/dL [place] Chloride [Moles/Vol] 103 mmol/L 98 - 10 7 mmol/L [place] CO2 [Moles/Vol] 31 mmol/L High 22 - 29 mmol/L [place] Creatinine [Mass/Vol] 0.7 mg/dL 0.5 - 1 mg/dL [place] GFR >60 [place] GFR Non- >60 >=60 mL/min/1.73 [place] Comment on above: Chronic Kidney Disea se: less than 60 ml/min/1.73 sq.m. Kidney Failure: less than 15 ml/min/1.73 sq.m. Results valid for patients 18 years and older. Glucose [Mass/Vol] 114 mg/dL High 74 - 99 mg/dL [place] Interpretation and review of laboratory results Abnormal [place] Potassium [Moles/Vol] 3.7 mmol/L 3.5 - 5 mmol/L [place] Sodium [Moles/Vol] 142 mmol/L 132 - 146 mmol/L [place] Urea nitrogen [Mass/Vol] 9 mg/dL 6 - 20 mg/dL [place] CBC auto differentialon 02-06 Basophils (Bld) [#/Vol] 0.03 10*3/uL [place] Basophils/100 WBC (Bld) 0.3 % 0 - 2 % [place] Eosinophils (Bld) [#/Vol] 0.09 10*3/uL [place] Eosinophils/100 WBC (Bld) 0.9 % 0 - 6 % [place] Erythrocyte distribution width (RBC) [Ratio] 18.6 fL High 11.5 - 15 fL [place] Hematocrit (Bld) [Volume fraction] 33.4 % Low 34 - 48 % [place] Hemoglobin (Bld) [Mass/Vol] 9.7 g/dL Low 11.5 - 15.5 g/dL [place] Immature granulocytes (Bld) [#/Vol] 0.26 10*3/uL E9/L [place] Immature granulocytes/100 WBC (Bld) 2.7 % 0 - 5 % [place] Interpretation and review of laboratory results Abnormal [place] Lymphocytes (Bld) [#/Vol] 2.66 10*3/uL [place] Lymphocytes/100 WBC (Bld) 27.2 % 20 - 42 % [place] MCH (RBC) [Entitic mass] 21.7 pg Low 26 - 35 pg [place] MCHC (RBC) [Mass/Vol] 29.0 % Low 32 - 34.5 % [place] MCV (RBC) [Entitic vol] 74.6 fL Low 80 - 99.9 fL [place] Monocytes (Bld) [#/Vol] 0.66 10*3/uL [place] Monocytes/100 WBC (Bld) 6.7 % 2 - 12 % [place] Neutrophils Absolute 6.08 [place], [place] Neutrophils/100 WBC (Bld) 62.2 % 43 - 80 % [place] Platelet mean volume (Bld) [Entitic vol] 10.0 fL 7 - 12 fL [place] Platelets (Bld) [#/Vol] 288 10*3/uL [place] RBC (Bld) [#/Vol] 4.48 10*6/uL [place] WBC (Bld) [#/Vol] 9.8 10*3/uL [place] XR CHEST PORTABLEon 02-26-20 19 Persistent infiltrates and pleural effusion in the left lung base concerning for pneumonia. [place] Patient : 1990 Age: 28 years Gender: Female Order Date: 02/25/2019 2:45 PM EXAM: XR CHEST PORTABLE one image INDICATION: left side pain, pneumonia left side pain, pneumonia COMPARISON: February 23, 2019 FINDINGS: There is low lung volumes with a borderline cardiac size. There is persistent infiltrates and pleural effusion in the left lung base. The right lung is clear. [place], [place] Eliud, Mhy Incoming Radiant Results From [employer]acs - 02/25/2019 6:19 PM EDT Patient : 1990 Age: 28 years Gender: Female Order Date: 02/25/2019 2:45 PM EXAM: XR CHEST PORTABLE one image INDICATION: left side pain, pneumonia left side pain, pneumonia COMPARISON: February 23, 2019 FINDINGS: There is low lung volumes with a borderline cardiac size. There is persistent infiltrates and pleural effusion in the left lung base. The right lung is clear. IMPRESSION: Persistent infiltrates and pleural effusion in the left lung base concerning for pneumonia. [place] Basic Metabolic Panel w/ Ref jyoti to MGon 02-24-2019 Anion gap [Moles/Vol] 10 mmol/L 7 - 16 mmol/L [place] Calcium [Mass/Vol] 8.5 mg/dL Low 8.6 - 10. 2 mg/dL [place] Chloride [Moles/Vol] 104 mmol/L 98 - 10 7 mmol/L [place] CO2 [Moles/Vol] 29 mmol/L 22 - 29 mmol/L [place] Creatinine [Mass/Vol] 0.7 mg/dL 0.5 - 1 mg/dL [place] GFR >60 [place], [place] GFR Non- >60 >=60 mL/min/1.73 [place] Comment on above: Chronic Kidney Disea se: less than 60 ml/min/1.73 sq.m. Kidney Failure: less than 15 ml/min/1.73 sq.m. Results valid for patients 18 years and older. Glucose [Mass/Vol] 120 mg/dL High 74 - 99 mg/dL [place] Interpretation and review of laboratory results Abnormal [place] Potassium [Moles/Vol] 4.3 mmol/L 3.5 - 5 mmol/L [place] Sodium [Moles/Vol] 143 mmol/L 132 - 146 mmol/L [place] Urea nitrogen [Mass/Vol] 8 mg/dL 6 - 20 mg/dL [place] C-reactive proteinon 10-20-2 019 CRP [Mass/Vol] 12.1 mg/dL High 0 - 0.4 mg/dL [place] Interpretation and review of laboratory results Abnormal [place] CBC auto differentialon 02-06 Anisocytosis Ql (Bld) 1+ [place], [place] Basophils (Bld) [#/Vol] 0.01 10*3/uL [place] Basophils/100 WBC (Bld) 0.1 % 0 - 2 % [place] Eosinophils (Bld) [#/Vol] 0.00 10*3/uL [place] Eosinophils/100 WBC (Bld) 0 % 0 - 6 % [place] Erythrocyte distribution width (RBC) [Ratio] 18.4 fL High 11.5 - 15 fL [place] Hematocrit (Bld) [Volume fraction] 35.8 % 34 - 48 % [place] Hemoglobin (Bld) [Mass/Vol] 10.2 g/dL Low 11.5 - 15.5 g/dL [place] Immature granulocytes (Bld) [#/Vol] 0.15 10*3/uL E9/L [place] Immature granulocytes/100 WBC (Bld) 1.5 % 0 - 5 % [place] Interpretation and review of laboratory results Abnormal [place] Lymphocytes (Bld) [#/Vol] 1.59 10*3/uL [place] Lymphocytes/100 WBC (Bld) 15.5 % Low 20 - 42 % [place] MCH (RBC) [Entitic mass] 21.2 pg Low 26 - 35 pg [place] MCHC (RBC) [Mass/Vol] 28.5 % Low 32 - 34.5 % [place] MCV (RBC) [Entitic vol] 74.3 fL Low 80 - 99.9 fL [place] Monocytes (Bld) [#/Vol] 0.82 10*3/uL [place] Monocytes/100 WBC (Bld) 8.0 % 2 - 12 % [place] Neutrophils Absolute 7.70 [place], [place] Neutrophils/100 WBC (Bld) 74.9 % 43 - 80 % [place] Ovalocytes 1+ [place] Platelet mean volume (Bld) [Entitic vol] 9.6 fL 7 - 12 fL [place] Platelets (Bld) [#/Vol] 290 10*3/uL [place] Poikilocytes 1+ [place] RBC (Bld) [#/Vol] 4.82 10*6/uL [place] WBC (Bld) [#/Vol] 10.3 10*3/uL [place] Ferritinon 02-24-2019 Ferritin [Mass/Vol] 92 ng/mL [place], [place] Comment on above: FERRITIN Reference R anges: Adult Males 20 - 60 yrars: 30 - 400 ng/mL Adult females 17 - 60 years: 13 - 150 ng/mL Adults greater than 60 years: no established reference range Pediatrics: no established reference range Legionella antigen, urineon 02-24-2019 L. pneumophila Serogp 1 Ur Ag Presumptive Negative -suggesting no recent or current infections with Legionella pneumophila serogroup 1. Infection to Legionella cannot be ruled out since other serogroups and species may cause infection, antigen may not be present in early infection, or level of antigen may be below the detection limit. Normal Range: Presumptive Negative [place], [place] Source: URINE Site: Urine&Urine [place] Procalcitoninon 02-24-2019 Interpretation and review of laboratory results Abnormal [place] Procalcitonin 0.14 ng/mL High 0 - 0.08 ng/mL [place] Sedimentation Rateon 02-24-2 019 Interpretation and review of laboratory results Abnormal [place], [place] Sed Rate 25 High [place] Strep Pneumoniae Antigenon 1 STREP PNEUMONIAE ANTIGEN, URINE Presumptive NEGATIVE for Pneumococcal pneumonia, suggesting no current or recent pneumococcal infection. Infection due to S. pneumoniae cannot be ruled out since the antigen present in the sample may be below the detection limit of the test. [place] Source: URINE Site: Urine&Urine [place] Transferrinon 02-24-2019 Transferrin [Mass/Vol] 229 mg/dL 200 - 360 mg/dL [place] Basic Metabolic Panel w/ Ref jyoti to MGon 02-23-2019 Anion gap [Moles/Vol] 10 mmol/L 7 - 16 mmol/L [place] Calcium [Mass/Vol] 8.2 mg/dL Low 8.6 - 10. 2 mg/dL [place] Chloride [Moles/Vol] 100 mmol/L 98 - 10 7 mmol/L [place] CO2 [Moles/Vol] 29 mmol/L 22 - 29 mmol/L [place] Creatinine [Mass/Vol] 0.8 mg/dL 0.5 - 1 mg/dL [place], [place] GFR >60 [place], [place] GFR Non- >60 >=60 mL/min/1.73 [place] Comment on above: Chronic Kidney Disea se: less than 60 ml/min/1.73 sq.m. Kidney Failure: less than 15 ml/min/1.73 sq.m. Results valid for patients 18 years and older. Glucose [Mass/Vol] 156 mg/dL High 74 - 99 mg/dL [place] Interpretation and review of laboratory results Abnormal [place] Potassium [Moles/Vol] 4.5 mmol/L 3.5 - 5 mmol/L [place] Sodium [Moles/Vol] 139 mmol/L 132 - 146 mmol/L [place] Urea nitrogen [Mass/Vol] 9 mg/dL 6 - 20 mg/dL [place] CBC Auto Differentialon 02-05 Basophils (Bld) [#/Vol] 0.02 10*3/uL [place] Basophils/100 WBC (Bld) 0.2 % 0 - 2 % [place] Eosinophils (Bld) [#/Vol] 0.05 10*3/uL [place] Eosinophils/100 WBC (Bld) 0.5 % 0 - 6 % [place] Erythrocyte distribution width (RBC) [Ratio] 18.0 fL High 11.5 - 15 fL [place] Hematocrit (Bld) [Volume fraction] 39.3 % 34 - 48 % [place] Hemoglobin (Bld) [Mass/Vol] 11.4 g/dL Low 11.5 - 15.5 g/dL [place] Immature granulocytes (Bld) [#/Vol] 0.12 10*3/uL E9/L [place] Immature granulocytes/100 WBC (Bld) 1.2 % 0 - 5 % [place] Interpretation and review of laboratory results Abnormal [place] Lymphocytes (Bld) [#/Vol] 2.51 10*3/uL [place] Lymphocytes/100 WBC (Bld) 25.7 % 20 - 42 % [place] MCH (RBC) [Entitic mass] 21.3 pg Low 26 - 35 pg [place] MCHC (RBC) [Mass/Vol] 29.0 % Low 32 - 34.5 % [place] MCV (RBC) [Entitic vol] 73.6 fL Low 80 - 99.9 fL [place] Monocytes (Bld) [#/Vol] 0.92 10*3/uL [place] Monocytes/100 WBC (Bld) 9.4 % 2 - 12 % [place] Neutrophils Absolute 6.14 [place], [place] Neutrophils/100 WBC (Bld) 63.0 % 43 - 80 % [place] Platelet mean volume (Bld) [Entitic vol] 9.3 fL 7 - 12 fL [place] Platelets (Bld) [#/Vol] 321 10*3/uL [place] RBC (Bld) [#/Vol] 5.34 10*6/uL [place] WBC (Bld) [#/Vol] 9.8 10*3/uL [place] HCG Qualitative, Serumon hCG Qual Negative NEGATIVE [place] Comment on above: Test results should always be evaluated with all available clinical data. Rapid influenza A/B antigens on 02-23-2019 Influenza A by PCR Not Detected Not Detected [place] Influenza B by PCR Not Detected Not Detected [place] Respiratory Panel, Film Arra yon 02-23-2019 Film Array Bordetella Pertusis Result: Not Detected * * Normal Range: Not Detected [place] Film Array Chlamydophilia Pneumoniae Result: Not Detected * * Normal Range: Not Detected [place] Film Array Conoravirus NL63 Result: Not Detected * * Normal Range: Not Detected [place] Film Array Coronavirus 229E Result: Not Detected * * Normal Range: Not Detected [place] Film Array Coronavirus HKU1 Result: Not Detected * * Normal Range: Not Detected [place] Film Array Coronavirus OC43 Result: Not Detected * * Normal Range: Not Detected [place] Film Array Influenza A Virus Result: Not Detected * * Normal Range: Not Detected [place] Film Array Influenza A Virus 09H1 Result: Not Detected * * Normal Range: Not Detected [place] Film Array Influenza A Virus H1 Result: Not Detected * * Normal Range: Not Detected [place] Film Array Influenza A Virus H3 Result: Not Detected * * Normal Range: Not Detected [place] Film Array Influenza B Result: Not Detec noel * * Normal Range: Not Detected [place] Film Array Metapneumovirus Result: Not Detected * * Normal Range: Not Detected [place] Film Array Mycoplasma Pneumoniae Result: Not Detected * * Normal Range: Not Detected [place] Film Array Parainfluenza Virus 1 Result: Not Detected * * Normal Range: Not Detected [place] Film Array Parainfluenza Virus 2 Result: Not Detected * * Normal Range: Not Detected [place] Film Array Parainfluenza Virus 3 Result: Not Detected * * Normal Range: Not Detected [place] Film Array Parainfluenza Virus 4 Result: Not Detected * * Normal Range: Not Detected [place] Film Array Respiratory Syncitial Virus Result: Not Detected * * Normal Range: Not Detected [place] Interpretation and review of laboratory results Abnormal [place] Organism FILM ARR Adenovirus Detected Abnormal [place] Organism FILM ARR Rhinovirus/Enterovir us Detected Abnormal [facility] [place] Source: CHILD STUDY TEAM DIRECTOR Site: Evy [facility] [place] XR CHEST PORTABLEon 02-24-20 19 Eliud, Mhy Incoming Radiant Results From [employer]Pacs - 02/23/2019 7:31 AM EDT Patient : 1990 Age: 28 years Gender: Female Order Date: 02/23/2019 5:30 AM Exam: XR CHEST PORTABLE Number of Images: 1 view Indication: SOB SOB Comparison: 01/15/2019 Findings: The heart is unremarkable. The lung pittman demonstrate evidence for air space disease. The aorta is unremarkable. IMPRESSION: Air space disease , suspicious for pneumonia, at the left lung base, this appears to have progressed in the interval The chest appears to be worse in the interval [facility] , suspicious for pneumonia, at the left lung base, this appears to have progressed in the interval The chest appears to be worse in the interval [facility] Patient : 1990 Age: 28 years Gender: Female Order Date: 02/23/2019 5:30 AM Exam: XR CHEST PORTABLE Number of Images: 1 view Indication: SOB SOB Comparison: 01/15/2019 Findings: The heart is unremarkable. The lung pittman demonstrate evidence for air space disease. The aorta is unremarkable. [place] Anti-DNA antibody, double-st randcary 01-18-2019 Anti ds DNA Negative NEGATIVE [place] Basic Metabolic Panel w/ Ref jyoti to [facility] 01-18-2019 Anion gap [Moles/Vol] 9 mmol/L 7 - 16 mmol/L [place] Calcium [Mass/Vol] 8.7 mg/dL 8.6 - 10. 2 mg/dL [place] Chloride [Moles/Vol] 103 mmol/L 98 - 10 7 mmol/L [place] CO2 [Moles/Vol] 29 mmol/L 22 - 29 mmol/L [place] Creatinine [Mass/Vol] 0.7 mg/dL 0.5 - 1 mg/dL [place] GFR >60 [place] GFR Non- >60 >=60 mL/min/1.73 [place] Comment on above: Chronic Kidney Disea se: less than 60 ml/min/1.73 sq.m. Kidney Failure: less than 15 ml/min/1.73 sq.m. Results valid for patients 18 years and older. Glucose [Mass/Vol] 129 mg/dL High 74 - 99 mg/dL [place] Potassium [Moles/Vol] 4.0 mmol/L 3.5 - 5 mmol/L [place] Sodium [Moles/Vol] 141 mmol/L 132 - 146 mmol/L [place] Urea nitrogen [Mass/Vol] 8 mg/dL 6 - 20 mg/dL [place] CBC Auto Differentialon 01-06 Basophils (Bld) [#/Vol] 0.01 10*3/uL [place] Basophils/100 WBC (Bld) 0.1 % 0 - 2 % [place] Eosinophils (Bld) [#/Vol] 0.01 10*3/uL [place] Eosinophils/100 WBC (Bld) 0.1 % 0 - 6 % [place] Erythrocyte distribution width (RBC) [Ratio] 17.2 fL High 11.5 - 15 fL [place] Hematocrit (Bld) [Volume fraction] 37.2 % 34 - 48 % [place] Hemoglobin (Bld) [Mass/Vol] 11.0 g/dL Low 11.5 - 15.5 g/dL [place] Immature granulocytes (Bld) [#/Vol] 0.13 10*3/uL E9/L [place] Immature granulocytes/100 WBC (Bld) 1.5 % 0 - 5 % [place] Interpretation and review of laboratory results Abnormal [place] Lymphocytes (Bld) [#/Vol] 2.81 10*3/uL [place] Lymphocytes/100 WBC (Bld) 31.5 % 20 - 42 % [place] MCH (RBC) [Entitic mass] 21.0 pg Low 26 - 35 pg [place] MCHC (RBC) [Mass/Vol] 29.6 % Low 32 - 34.5 % [place] MCV (RBC) [Entitic vol] 70.9 fL Low 80 - 99.9 fL [place] Monocytes (Bld) [#/Vol] 0.50 10*3/uL [place] Monocytes/100 WBC (Bld) 5.6 % 2 - 12 % [place] Neutrophils Absolute 5.45 [place], [place] Neutrophils/100 WBC (Bld) 61.2 % 43 - 80 % [place] Platelet mean volume (Bld) [Entitic vol] 10.2 fL 7 - 12 fL [place], [place] Platelets (Bld) [#/Vol] 318 10*3/uL [place] RBC (Bld) [#/Vol] 5.25 10*6/uL [place] WBC (Bld) [#/Vol] 8.9 10*3/uL [place] Hepatic function panelon Albumin [Mass/Vol] 3.8 g/dL 3.5 - 5.2 g/dL [place] ALP [Catalytic activity/Vol] 62 U/L 35 - 104 U/L [place] ALT [Catalytic activity/Vol] 9 U/L 0 - 32 U/L [place] AST [Catalytic activity/Vol] 10 U/L 0 - 31 U/L [place] Bilirubin Ql (U) <0.2 0 - 1.2 mg/dL [place] Bilirubin, Indirect see below 0 - 1 mg/dL [place] Comment on above: Indirect Bilirubin c annot be calculated since Total Bilirubin and/or Direct Bilirubin is below measurable range. Bilirubin.direct [Mass/Vol] mg/dL 0 - 0.3 mg/dL [place] Protein [Mass/Vol] 5.5 g/dL Low 6.4 - 8.3 g/dL [place] Magnesiumon 01-18-2019 Magnesium [Mass/Vol] 2.3 mg/dL 1.6 - 2 .6 mg/dL [place] Otheron 01-18-2019 Interpretation and review of laboratory results Abnormal [place] ANAon 01-17-2019 Nuclear Ab IF (S) [Titer] Negative NEGATIVE [place] Comment on above: NEGATIVE: <=16 years <1:10 >16 years <1:40 Basic Metabolic Panel w/ Ref jyoti to MGon 01-17-2019 Anion gap [Moles/Vol] 10 mmol/L 7 - 16 mmol/L [place] Calcium [Mass/Vol] 8.4 mg/dL Low 8.6 - 10. 2 mg/dL [place] Chloride [Moles/Vol] 106 mmol/L 98 - 10 7 mmol/L [place] CO2 [Moles/Vol] 27 mmol/L 22 - 29 mmol/L [place] Creatinine [Mass/Vol] 0.6 mg/dL 0.5 - 1 mg/dL [place] GFR >60 [place] GFR Non- >60 >=60 mL/min/1.73 [place] Comment on above: Chronic Kidney Disea se: less than 60 ml/min/1.73 sq.m. Kidney Failure: less than 15 ml/min/1.73 sq.m. Results valid for patients 18 years and older. Glucose [Mass/Vol] 111 mg/dL High 74 - 99 mg/dL [place] Potassium [Moles/Vol] 4.5 mmol/L 3.5 - 5 mmol/L [place] Sodium [Moles/Vol] 143 mmol/L 132 - 146 mmol/L [place] Urea nitrogen [Mass/Vol] 9 mg/dL 6 - 20 mg/dL [place] CBC auto differentialon 01-06 Basophils (Bld) [#/Vol] 0.01 10*3/uL [place] Basophils/100 WBC (Bld) 0.1 % 0 - 2 % [place] Eosinophils (Bld) [#/Vol] 0.01 10*3/uL [place] Eosinophils/100 WBC (Bld) 0.1 % 0 - 6 % [place] Erythrocyte distribution width (RBC) [Ratio] 16.7 fL High 11.5 - 15 fL [place] Hematocrit (Bld) [Volume fraction] 36.3 % 34 - 48 % [place] Hemoglobin (Bld) [Mass/Vol] 10.9 g/dL Low 11.5 - 15.5 g/dL [place] Immature granulocytes (Bld) [#/Vol] 0.05 10*3/uL E9/L [place] Immature granulocytes/100 WBC (Bld) 0.7 % 0 - 5 % [place] Interpretation and review of laboratory results Abnormal [place] Lymphocytes (Bld) [#/Vol] 1.79 10*3/uL [place] Lymphocytes/100 WBC (Bld) 24.7 % 20 - 42 % [place] MCH (RBC) [Entitic mass] 21.4 pg Low 26 - 35 pg [place] MCHC (RBC) [Mass/Vol] 30.0 % Low 32 - 34.5 % [place] MCV (RBC) [Entitic vol] 71.2 fL Low 80 - 99.9 fL [place] Monocytes (Bld) [#/Vol] 0.36 10*3/uL [place] Monocytes/100 WBC (Bld) 5.0 % 2 - 12 % [place] Neutrophils Absolute 5.04 [place], [place] Neutrophils/100 WBC (Bld) 69.4 % 43 - 80 % [place] Platelet mean volume (Bld) [Entitic vol] 10.4 fL 7 - 12 fL [place] Platelets (Bld) [#/Vol] 276 10*3/uL [place] RBC (Bld) [#/Vol] 5.10 10*6/uL [place] WBC (Bld) [#/Vol] 7.3 10*3/uL [place] CT Chest WO Contraston 01-17 1. Bibasilar atelectasis left greater than right with evidence of mild fusiform bronchiectasis as outlined above. Suspected mucous plugging as described. 2. 4 mm pleural-based nodule on the right. 3. Mild cardiomegaly. 4. Splenomegaly. [place] Patient Patient : 1990 Patient Age: 28 years Patient Gender: Female Order Date:01/17/2019 3:30 PM EXAM: CT CHEST WO CONTRAST NUMBER OF IMAGES: 318 INDICATION: Acute dyspnea, asthma, r/o lymphadenopathy COMPARISON: None. TECHNIQUE: Multiple axial images were obtained from the apices of the lungs through the lung bases. Sagittal and coronal reconstructions performed for aid in interpretation of the study. Technique: Low-dose CT acquisition technique included one of following options; 1 . Automated exposure control, 2. Adjustment of MA and or KV according to patient's size or 3. Use of iterative reconstruction. FINDINGS: LUNGS: There is opacity at the left lower lobe likely related to atelectasis and there our a couple dilated bronchial segments compatible with fusiform bronchiectasis. There is fusiform bronchiectasis involving at least 2 airways at the extreme right lower lobe and I suspect that there is some distal mucus plugging at least one instance. There is minimal atelectasis at the right lower lobe. There is some focal nodular thickening at the major fissure on the right posteriorly. There is a tiny pleural-based nodule measuring 4 mm at the right lower lobe. No pleural effusion or pneumothorax is seen. HEART: Mildly enlarged. AORTA: Unremarkable. MEDIASTINUM: Unremarkable. UPPER ABDOMEN: Enlarged spleen at 16 cm. OTHER:Unremarkable [place], [place] Eliud, Mhy Incoming Radiant Results From [employer] - 01/17/2019 6:35 PM EDT Patient Patient : 1990 Patient Age: 28 years Patient Gender: Female Order Date:01/17/2019 3:30 PM EXAM: CT CHEST WO CONTRAST NUMBER OF IMAGES: 318 INDICATION: Acute dyspnea, asthma, r/o lymphadenopathy COMPARISON: None. TECHNIQUE: Multiple axial images were obtained from the apices of the lungs through the lung bases. Sagittal and coronal reconstructions performed for aid in interpretation of the study. Technique: Low-dose CT acquisition technique included one of following options; 1 . Automated exposure control, 2. Adjustment of MA and or KV according to patient's size or 3. Use of iterative reconstruction. FINDINGS: LUNGS: There is opacity at the left lower lobe likely related to atelectasis and there our a couple dilated bronchial segments compatible with fusiform bronchiectasis. There is fusiform bronchiectasis involving at least 2 airways at the extreme right lower lobe and I suspect that there is some distal mucus plugging at least one instance. There is minimal atelectasis at the right lower lobe. There is some focal nodular thickening at the major fissure on the right posteriorly. There is a tiny pleural-based nodule measuring 4 mm at the right lower lobe. No pleural effusion or pneumothorax is seen. HEART: Mildly enlarged. AORTA: Unremarkable. MEDIASTINUM: Unremarkable. UPPER ABDOMEN: Enlarged spleen at 16 cm. OTHER:Unremarkable IMPRESSION: 1. Bibasilar atelectasis left greater than right with evidence of mild fusiform bronchiectasis as outlined above. Suspected mucous plugging as described. 2. 4 mm pleural-based nodule on the right. 3. Mild cardiomegaly. 4. Splenomegaly. [place] Hepatic function panelon Albumin [Mass/Vol] 3.6 g/dL 3.5 - 5.2 g/dL [place] ALP [Catalytic activity/Vol] 63 U/L 35 - 104 U/L [place] ALT [Catalytic activity/Vol] 10 U/L 0 - 32 U/L [place] AST [Catalytic activity/Vol] 10 U/L 0 - 31 U/L [place] Bilirubin Ql (U) <0.2 0 - 1.2 mg/dL [place] Bilirubin, Indirect see below 0 - 1 mg/dL [place] Comment on above: Indirect Bilirubin c annot be calculated since Total Bilirubin and/or Direct Bilirubin is below measurable range. Bilirubin.direct [Mass/Vol] mg/dL 0 - 0.3 mg/dL [place] Protein [Mass/Vol] 5.5 g/dL Low 6.4 - 8.3 g/dL [place] IgG, IgA, IgMon 01-17-2019 IgA [Mass/Vol] mg/dL Low 70 - 400 mg/dL [place] Comment on above: This test may not pr ovide accurate results in patients with monoclonal gammopathy. Electrophoresis is suggested if results do not correlate with clinical findings. IgG [Mass/Vol] mg/dL Low 700 - 1600 mg/dL [place] Comment on above: This test may not pr ovide accurate results in patients with monoclonal gammopathy. Electrophoresis is suggested if results do not correlate with clinical findings. IgM [Mass/Vol] mg/dL Low 40 - 230 mg/dL [place] Comment on above: This test may not pr ovide accurate results in patients with monoclonal gammopathy. Electrophoresis is suggested if results do not correlate with clinical findings. Interpretation and review of laboratory results Abnormal [place] Magnesiumon 01-17-2019 Magnesium [Mass/Vol] 2.2 mg/dL 1.6 - 2 .6 mg/dL [place] Otheron 01-17-2019 Interpretation and review of laboratory results Abnormal [place] SPECIMEN REJECTIONon 019 Reason for Rejection see below [place], [place] Comment on above: Unable to perform te sting; unsuitable sputum specimen. To perform testing the specimen will need to be recollected. Sputum Rejected Test [facility] [place], [place] CALL [phone] [id number] tel. , Rejected Test Name/Called to: RORO SRINIVASAN RN, 01/17/2019 07:40, by ANN-MARIE [place], [place] Basic Metabolic Panel w/ Ref jyoti to MGon 01-16-2019 Anion gap [Moles/Vol] 8 mmol/L 7 - 16 mmol/L [place] Calcium [Mass/Vol] 8.5 mg/dL Low 8.6 - 10. 2 mg/dL [place] Chloride [Moles/Vol] 106 mmol/L 98 - 10 7 mmol/L [place] CO2 [Moles/Vol] 27 mmol/L 22 - 29 mmol/L [place] Creatinine [Mass/Vol] 0.7 mg/dL 0.5 - 1 mg/dL [place], [place] GFR >60 [place] GFR Non- >60 >=60 mL/min/1.73 [place] Comment on above: Chronic Kidney Disea se: less than 60 ml/min/1.73 sq.m. Kidney Failure: less than 15 ml/min/1.73 sq.m. Results valid for patients 18 years and older. Glucose [Mass/Vol] 184 mg/dL High 74 - 99 mg/dL [place] Potassium [Moles/Vol] 4.5 mmol/L 3.5 - 5 mmol/L [place] Sodium [Moles/Vol] 141 mmol/L 132 - 146 mmol/L [place] Urea nitrogen [Mass/Vol] 8 mg/dL 6 - 20 mg/dL [place] C-Reactive Proteinon 019 CRP [Mass/Vol] 7.5 mg/dL High 0 - 0.4 mg/dL [place] Interpretation and review of laboratory results Abnormal [place] CBC auto differentialon 01-06 Basophils (Bld) [#/Vol] 0.00 10*3/uL [place] Basophils/100 WBC (Bld) 0.0 % 0 - 2 % M [place] Eosinophils (Bld) [#/Vol] 0.00 10*3/uL [place] Eosinophils/100 WBC (Bld) 0 % 0 - 6 % [place] Erythrocyte distribution width (RBC) [Ratio] 16.5 fL High 11.5 - 15 fL [place] Hematocrit (Bld) [Volume fraction] 37.1 % 34 - 48 % [place] Hemoglobin (Bld) [Mass/Vol] 11.0 g/dL Low 11.5 - 15.5 g/dL [place] Immature granulocytes (Bld) [#/Vol] 0.03 10*3/uL E9/L [place] Immature granulocytes/100 WBC (Bld) 0.7 % 0 - 5 % [place] Interpretation and review of laboratory results Abnormal [place] Lymphocytes (Bld) [#/Vol] 1.05 10*3/uL [place] Lymphocytes/100 WBC (Bld) 24.2 % 20 - 42 % [place] MCH (RBC) [Entitic mass] 21.2 pg Low 26 - 35 pg [place] MCHC (RBC) [Mass/Vol] 29.6 % Low 32 - 34.5 % [place] MCV (RBC) [Entitic vol] 71.3 fL Low 80 - 99.9 fL [place] Monocytes (Bld) [#/Vol] 0.16 10*3/uL [place] Monocytes/100 WBC (Bld) 3.7 % 2 - 12 % [place] Neutrophils Absolute 3.10 [place], [place] Neutrophils/100 WBC (Bld) 71.4 % 43 - 80 % [place] Platelet mean volume (Bld) [Entitic vol] 10.4 fL 7 - 12 fL [place] Platelets (Bld) [#/Vol] 232 10*3/uL [place] RBC (Bld) [#/Vol] 5.20 10*6/uL [place] WBC (Bld) [#/Vol] 4.3 10*3/uL [place] Hepatic function panelon Albumin [Mass/Vol] 3.7 g/dL 3.5 - 5.2 g/dL [place] ALP [Catalytic activity/Vol] 71 U/L 35 - 104 U/L [place] ALT [Catalytic activity/Vol] 10 U/L 0 - 32 U/L [place] AST [Catalytic activity/Vol] 12 U/L 0 - 31 U/L [place] Bilirubin Ql (U) <0.2 0 - 1.2 mg/dL [place] Bilirubin, Indirect see below 0 - 1 mg/dL [place] Comment on above: Indirect Bilirubin c annot be calculated since Total Bilirubin and/or Direct Bilirubin is below measurable range. Bilirubin.direct [Mass/Vol] mg/dL 0 - 0.3 mg/dL [place] Protein [Mass/Vol] 5.7 g/dL Low 6.4 - 8.3 g/dL [place] Magnesiumon 01-16-2019 Magnesium [Mass/Vol] 2.5 mg/dL 1.6 - 2 .6 mg/dL [place] Otheron 01-16-2019 Interpretation and review of laboratory results Abnormal [place] Procalcitoninon 01-16-2019 Procalcitonin <0.02 0 - 0.08 ng/mL [place] Respiratory Panel, Film Arra yon 01-16-2019 Film Array Bordetella Pertusis Result: Not Detected * * Normal Range: Not Detected [place] Film Array Chlamydophilia Pneumoniae Result: Not Detected * * Normal Range: Not Detected [place] Film Array Conoravirus NL63 Result: Not Detected * * Normal Range: Not Detected [place] Film Array Coronavirus 229E Result: Not Detected * * Normal Range: Not Detected [place] Film Array Coronavirus HKU1 Result: Not Detected * * Normal Range: Not Detected [place] Film Array Coronavirus OC43 Result: Not Detected * * Normal Range: Not Detected [place] Film Array Influenza A Virus Result: Not Detected * * Normal Range: Not Detected [place] Film Array Influenza A Virus 09H1 Result: Not Detected * * Normal Range: Not Detected [place] Film Array Influenza A Virus H1 Result: Not Detected * * Normal Range: Not Detected [place] Film Array Influenza A Virus H3 Result: Not Detected * * Normal Range: Not Detected [place] Film Array Influenza B Result: Not Detec noel * * Normal Range: Not Detected [place] Film Array Metapneumovirus Result: Not Detected * * Normal Range: Not Detected [place] Film Array Mycoplasma Pneumoniae Result: Not Detected * * Normal Range: Not Detected [place] Film Array Parainfluenza Virus 1 Result: Not Detected * * Normal Range: Not Detected [place] Film Array Parainfluenza Virus 2 Result: Not Detected * * Normal Range: Not Detected [place] Film Array Parainfluenza Virus 3 Result: Not Detected * * Normal Range: Not Detected [place] Film Array Parainfluenza Virus 4 Result: Not Detected * * Normal Range: Not Detected [place] Film Array Respiratory Syncitial Virus Result: Not Detected * * Normal Range: Not Detected [place] Interpretation and review of laboratory results Abnormal [place] Organism FILM ARR Rhinovirus/Enterovir us Detected Abnormal [place] Organism FILM ARR Adenovirus Detected Abnormal [place] Source: CHILD STUDY TEAM DIRECTOR Site: Nose&Nose [place], [place] CBC Auto Differentialon 01-06 Basophils (Bld) [#/Vol] 0.01 10*3/uL [place] Basophils/100 WBC (Bld) 0.2 % 0 - 2 % [place] Eosinophils (Bld) [#/Vol] 0.07 10*3/uL [place] Eosinophils/100 WBC (Bld) 1.1 % 0 - 6 % [place] Erythrocyte distribution width (RBC) [Ratio] 16.9 fL High 11.5 - 15 fL [place] Hematocrit (Bld) [Volume fraction] 38.5 % 34 - 48 % [place] Hemoglobin (Bld) [Mass/Vol] 11.4 g/dL Low 11.5 - 15.5 g/dL [place] Immature granulocytes (Bld) [#/Vol] 0.03 10*3/uL E9/L [place] Immature granulocytes/100 WBC (Bld) 0.5 % 0 - 5 % [place] Interpretation and review of laboratory results Abnormal [place] Lymphocytes (Bld) [#/Vol] 1.56 10*3/uL [place] Lymphocytes/100 WBC (Bld) 25.5 % 20 - 42 % [place] MCH (RBC) [Entitic mass] 21.2 pg Low 26 - 35 pg [place] MCHC (RBC) [Mass/Vol] 29.6 % Low 32 - 34.5 % [place] MCV (RBC) [Entitic vol] 71.4 fL Low 80 - 99.9 fL [place] Monocytes (Bld) [#/Vol] 0.60 10*3/uL [place] Monocytes/100 WBC (Bld) 9.8 % 2 - 12 % [place] Neutrophils Absolute 3.85 [place], [place] Neutrophils/100 WBC (Bld) 62.9 % 43 - 80 % [place] Platelet mean volume (Bld) [Entitic vol] 10.0 fL 7 - 12 fL [place] Platelets (Bld) [#/Vol] 233 10*3/uL [place] RBC (Bld) [#/Vol] 5.39 10*6/uL [place] WBC (Bld) [#/Vol] 6.1 10*3/uL [place] Comprehensive Metabolic Pane stuart 01-15-2019 Albumin [Mass/Vol] 3.6 g/dL 3.5 - 5.2 g/dL [place] ALP [Catalytic activity/Vol] 71 U/L 35 - 104 U/L [place] ALT [Catalytic activity/Vol] 10 U/L 0 - 32 U/L [place] Anion gap [Moles/Vol] 8 mmol/L 7 - 16 mmol/L [place] AST [Catalytic activity/Vol] 18 U/L 0 - 31 U/L [place] Bilirubin Ql (U) 0.2 mg/dL 0 - 1.2 mg/dL [place] Calcium [Mass/Vol] 8.7 mg/dL 8.6 - 10. 2 mg/dL [place] Chloride [Moles/Vol] 101 mmol/L 98 - 10 7 mmol/L [place] CO2 [Moles/Vol] 30 mmol/L High 22 - 29 mmol/L [place] Creatinine [Mass/Vol] 0.8 mg/dL 0.5 - 1 mg/dL [place] GFR >60 [place] GFR Non- >60 >=60 mL/min/1.73 [place] Comment on above: Chronic Kidney Disea se: less than 60 ml/min/1.73 sq.m. Kidney Failure: less than 15 ml/min/1.73 sq.m. Results valid for patients 18 years and older. Glucose [Mass/Vol] 82 mg/dL 74 - 99 mg/dL [facility], [place] Interpretation and review of laboratory results Abnormal [place] Potassium [Moles/Vol] 4.5 mmol/L 3.5 - 5 mmol/L [facility] Protein [Mass/Vol] 5.6 g/dL Low 6.4 - 8.3 g/dL [place] Sodium [Moles/Vol] 139 mmol/L 132 - 146 mmol/L [facility] Urea nitrogen [Mass/Vol] 8 mg/dL 6 - 20 mg/dL [facility] EKG 12 Leadon 01-15-2019 Atrial Rate 116 BPM [place], [place] P [place] 66 degrees [facility] P-R Interval 128 ms [facility], [place] Q-T Interval 334 ms [facility] QRS Duration 92 ms [place] QTc Calculation (Bazett) 464 ms [facility] R [place] 25 degrees [facility] T [place] 16 degrees [facility] Ventricular Rate 116 BPM [facility], [place] Eliud, Mhy Incoming Ekg Results From 01/15/2019 9:02 PM EDT Sinus tachycardia Otherwise normal ECG When compared with ECG of 12-DEC-2018 14:17, No significant change was found Confirmed by Ilan Gonzalez ([id number]) on 01/15/2019 9:01:50 PM [place] Sinus tachycardia Otherwise normal ECG When compared with ECG of 12-DEC-2018 14:17, No significant change was found Confirmed by Ilan Gonzalez ([id number]) on 01/15/2019 9:01:50 PM [facility], [place] Lactic Acid, Plasmaon 2018 Lactate [Moles/Vol] 0.7 mmol/L 0.5 - 2. 2 mmol/L [place] Strep Screen Group A Throato n 01-15-2019 Strep Grp A PCR Positive Negative [facility] [place] Comment on above: Positive for Strep A nucleic acid. XR CHEST STANDARD (2 VW)on 0 01-15-2019 Air space disease , at the left lung base which could be related to mild atelectasis or mild pneumonia [place], [place] Eliud, Mhy Incoming Radiant Results From [facility] - 01/15/2019 5:30 PM EDT Patient : 1990 Age: 28 years Gender: Female Order Date: 01/15/2019 5:00 PM Exam: XR CHEST (2 VW) Number of Images: 2 views Indication: cough, rib pain cough, rib pain Comparison: None. Findings: The heart is unremarkable. The lung pittman demonstrate evidence for air space disease. The aorta is unremarkable. IMPRESSION: Air space disease , at the left lung base which could be related to mild atelectasis or mild pneumonia [facility] [place] Patient : 1990 Age: 28 years Gender: Female Order Date: 01/15/2019 5:00 PM Exam: XR CHEST (2 VW) Number of Images: 2 views Indication: cough, rib pain cough, rib pain Comparison: None. Findings: The heart is unremarkable. The lung pittman demonstrate evidence for air space disease. The aorta is unremarkable. [place] Vital Signs Date Time Vital Sign Value Performing Clinician Facility 03-19-2025 16:23-0500 SaO2% (BldA) [Mass fraction] 97 % LOUANN BERMEO [facility] Comment on above: Order Comment: Specimen Type: ARTERIAL B LOOD SPECIMENOrdering Facility: [facility] Address: [address] [place] [address] Performed By: #### A LLBG ####[facility] LABCLIA [id number] [place] [address] [place] 03-19-2025 10:42-0500 SaO2% (BldA) [Mass fraction] 98 % LOUANN BERMEO [facility] Comment on above: Order Comment: Specimen Type: ARTERIAL B LOOD SPECIMENOrdering Facility: [facility] Address: [address] [place] [address] Performed By: #### A LLBG ####[facility] LABCLIA [id number] [place] [id number] [facility] 03-19-2025 06:41-0500 SaO2% (BldA) [Mass fraction] 99 % LOUANN BERMEO [facility] Comment on above: Order Comment: Specimen Type: ARTERIAL B LOOD SPECIMENOrdering Facility: [facility] Address: [address] [place] [address] Performed By: #### A LLBG ####[facility] LABIA [id number] [place] [id number] [facility] [place] 03-19-2025 00:38-0500 SaO2% (BldA) [Mass fraction] 99 % LOUANN BERMEO [facility] Comment on above: Order Comment: Specimen Type: ARTERIAL B LOOD SPECIMENOrdering Facility: [facility] Address: [address] [place] [address] Performed By: #### A LLBG ####[facility] [id number] [place] [id number] [place] 03-18-2025 20:35-0500 SaO2% (BldA) [Mass fraction] 98 % LOAUNN BERMEO [facility] Comment on above: Order Comment: Specimen Type: ARTERIAL B LOOD SPECIMENOrdering Facility: [facility] Address: [address] [place] [address] Performed By: #### A LLBG ####[facility] LABCLIA [id number] [place] [id number] [facility] [place] 03-18-2025 17:01-0500 SaO2% (BldA) [Mass fraction] 94 % LOUANN BERMEO [facility] Comment on above: Order Comment: Specimen Type: ARTERIAL B LOOD SPECIMENOrdering Facility: [facility] Address: [address] [place] [address] Performed By: #### A LLBG ####[facility] LABCLIA [id number] [place] [id number] [place] 03-18-2025 15:19-0500 SaO2% (BldA) [Mass fraction] 96 % LOUANN BERMEO [facility] Comment on above: Order Comment: Specimen Type: ARTERIAL B LOOD SPECIMENOrdering Facility: [facility] Address: [address] [place] [address] Performed By: #### A LLBG ####[facility] LABCLIA [id number] [place] [id number] [facility] 02-20-2025 13:37-0400 Body temperature 98.6 [degF] Louann Bermeo CHILD STUDY TEAM DIRECTOR-C Work Phone: [facility] 02-20-2025 13:37-0400 Diastolic blood pressure 62 mm[Hg] Louann Bermeo CHILD STUDY TEAM DIRECTOR-C Work Phone: [facility] 02-20-2025 13:37-0400 Heart rate 77 /min Louann Bermeo CHILD STUDY TEAM DIRECTOR-C Work Phone: [facility] 02-20-2025 13:37-0400 Respiratory rate 14 /min Louann Bermeo CHILD STUDY TEAM DIRECTOR-C Work Phone: [facility] 02-20-2025 13:37-0400 SaO2% (BldA) [Mass fraction] 100 % Louann Bermeo CHILD STUDY TEAM DIRECTOR-C Work Phone: [facility] 02-20-2025 13:37-0400 Systolic blood pressure 115 mm[Hg] Louann Bermeo CHILD STUDY TEAM DIRECTOR-C Work Phone: [facility] 02-20-2025 13:00-0400 Inhaled oxygen flow rate 5.5 L/min Louann Bermeo CHILD STUDY TEAM DIRECTOR-C Work Phone: [facility] 02-20-2025 09:39-0400 Body mass index (BMI) [Ratio] 57.5 kg/m2 Louann Bermeo CHILD STUDY TEAM DIRECTOR-C Work Phone: [facility] 02-20-2025 09:39-0400 Body weight 192.5 kg Louann Bermeo CHILD STUDY TEAM DIRECTOR-C Work Phone: [facility] 02-20-2025 09:36-0400 Body height 182.88 cm Louann Bermeo CHILD STUDY TEAM DIRECTOR-C Work Phone: [facility] 01-01-2025 08:12-0400 Body mass index (BMI) [Ratio] 57.5 kg/m2 Jeni Solange POT FISHER.TWISTING OPERATOR Work Phone: [facility] 01-01-2025 08:12-0400 Body weight 192.32 kg Jeni Solange POT FISHER.TWISTING OPERATOR Work Phone: [facility] 01-01-2025 08:12-0400 Diastolic blood pressure 74 mm[Hg] Jeni Solange POT FISHER.TWISTING OPERATOR Work Phone: [facility] 01-01-2025 08:12-0400 Heart rate 74 /min Jeni Solange POT FISHER.TWISTING OPERATOR Work Phone: [facility] 01-01-2025 08:12-0400 Respiratory rate 16 /min Jeni Solange POT FISHER.TWISTING OPERATOR Work Phone: [facility] 01-01-2025 08:12-0400 SaO2% (BldA) [Mass fraction] 100 % Jeni Solange POT FISHER.TWISTING OPERATOR Work Phone: [facility] 01-01-2025 08:12-0400 Systolic blood pressure 115 mm[Hg] Jeni Solange POT FISHER.TWISTING OPERATOR Work Phone: [facility] 12-17-2024 14:30-0400 Body height 182.[address] Work Phone: [facility] 12-17-2024 14:30-0400 Body mass index (BMI) [Ratio] 57.23 kg/m2 Osman Pedrozao RD Work Phone: [facility] 12-17-2024 14:30-0400 Body weight 191.[address] Work Phone: [facility] Comment on above: per patient report 11-26-2024 12:07-0400 Body height 182.[address] Work Phone: [facility] 11-26-2024 12:07-0400 Body mass index (BMI) [Ratio] 57.64 kg/m2 Osman Lily RD Work Phone: [facility] 11-26-2024 12:07-0400 Body weight 192.[address] Work Phone: [facility] Comment on above: per patient report 11-13-2024 19:43-0400 Body temperature 97.4 [degF] Louann Bermeo CHILD STUDY TEAM DIRECTOR-C Work Phone: [facility] 11-13-2024 19:43-0400 Diastolic blood pressure 88 mm[Hg] Louann Bermeo CHILD STUDY TEAM DIRECTOR-C Work Phone: [phone] [place] [address] 11-13-2024 19:43-0400 Heart rate 88 /min Louann Bermeo CHILD STUDY TEAM DIRECTOR-C Work Phone: [facility] 11-13-2024 19:43-0400 Respiratory rate 18 /min Louann Bermeo CHILD STUDY TEAM DIRECTOR-C Work Phone: [phone] [place] [address] 11-13-2024 19:43-0400 SaO2% (BldA) [Mass fraction] 95 % Louann Bermeo CHILD STUDY TEAM DIRECTOR-C Work Phone: [facility] 11-13-2024 19:43-0400 Systolic blood pressure 140 mm[Hg] Louann Bermeo CHILD STUDY TEAM DIRECTOR-C Work Phone: [facility] 11-13-2024 19:37-0400 Body mass index (BMI) [Ratio] 57.9 kg/m2 Louann Bermeo CHILD STUDY TEAM DIRECTOR-C Work Phone: [facility] 11-13-2024 19:37-0400 Body weight 193.9 kg Louann Bermeo CHILD STUDY TEAM DIRECTOR-C Work Phone: [facility] 11-13-2024 18:44-0400 Body height 182.88 cm Louann Bermeo CHILD STUDY TEAM DIRECTOR-C Work Phone: [phone] [place] [address] 11-13-2024 18:44-0400 Inhaled oxygen flow rate 2 L/min Louann NELSON Work Phone: [facility] 10-21-2024 10:18-0400 Body height 182.[address] Work Phone: [facility] 10-21-2024 10:18-0400 Body mass index (BMI) [Ratio] 59.13 kg/m2 Osman Silvadevoraho RD Work Phone: [facility] 10-21-2024 10:18-0400 Body weight 197.[address] Work Phone: [facility] Comment on above: verbal per patient 09-18-2024 08:06-0400 Body mass index (BMI) [Ratio] 61.4 kg/m2 Krislyn Aberegg PA Work Phone: [facility] 09-18-2024 08:06-0400 Body temperature 97.59 [degF] Krislyn Aberegg PA Work Phone: [facility] 09-18-2024 08:06-0400 Body weight 199.7 kg Krislyn Aberegg PA Work Phone: [facility] 09-18-2024 08:06-0400 Diastolic blood pressure 80 mm[Hg] Krislyn Aberegg PA Work Phone: [facility] 09-18-2024 08:06-0400 Heart rate 67 /min Krislyn Aberegg PA Work Phone: [facility] 09-18-2024 08:06-0400 Respiratory rate 18 /min Krislyn Aberegg PA Work Phone: [facility] 09-18-2024 08:06-0400 SaO2% (BldA) [Mass fraction] 98 % Krislyn Aberegg PA Work Phone: [facility] 09-18-2024 08:06-0400 Systolic blood pressure 128 mm[Hg] Krislyn Aberegg PA Work Phone: [facility] 09-12-2024 14:03-0400 Body mass index (BMI) [Ratio] 61.23 kg/m2 Elisa Jean MD Work Phone: [facility] 09-12-2024 14:03-0400 Body weight 199.13 kg Elisa Jean MD Work Phone: [facility] 09-06-2024 16:30-0400 Body temperature 98.1 [degF] Louann Bermeo CHILD STUDY TEAM DIRECTOR-C Work Phone: [facility] 09-06-2024 16:30-0400 Diastolic blood pressure 84 mm[Hg] Louann Bermeo CHILD STUDY TEAM DIRECTOR-C Work Phone: [facility] 09-06-2024 16:30-0400 Heart rate 86 /min Louann Bermeo CHILD STUDY TEAM DIRECTOR-C Work Phone: [facility] 09-06-2024 16:30-0400 Inhaled oxygen flow rate 5 L/min Louann Bermeo CHILD STUDY TEAM DIRECTOR-C Work Phone: [facility] 09-06-2024 16:30-0400 Respiratory rate 18 /min Louann Bermeo CHILD STUDY TEAM DIRECTOR-C Work Phone: [facility] 09-06-2024 16:30-0400 SaO2% (BldA) [Mass fraction] 96 % Louann Bermeo CHILD STUDY TEAM DIRECTOR-C Work Phone: [facility] 09-06-2024 16:30-0400 Systolic blood pressure 130 mm[Hg] Louann Bermeo CHILD STUDY TEAM DIRECTOR-C Work Phone: [facility] 09-06-2024 07:05-0400 Inhaled oxygen concentration 40 % Louann Bermeo CHILD STUDY TEAM DIRECTOR-C Work Phone: [facility] 09-06-2024 03:37-0400 Body mass index (BMI) [Ratio] 60 kg/m2 Louann Bermeo CHILD STUDY TEAM DIRECTOR-C Work Phone: [facility] 09-06-2024 03:37-0400 Body weight 200.9 kg Louann Bermeo CHILD STUDY TEAM DIRECTOR-C Work Phone: [facility] 09-04-2024 09:53-0400 Body height 182.88 cm Louann Bermeo CHILD STUDY TEAM DIRECTOR-C Work Phone: [facility] 08-27-2024 08:50-0400 Body height 180.3 cm Pulm Wstr Work Phone: [facility] 08-27-2024 08:50-0400 Body mass index (BMI) [Ratio] 61.23 kg/m2 Pulm Wstr Work Phone: [facility] 08-27-2024 08:50-0400 Body weight 199.13 kg Pulm Wstr Work Phone: [facility] 08-27-2024 08:50-0400 Heart rate 89 /min Pulm Wstr Work Phone: [facility] 08-27-2024 08:50-0400 SaO2% (BldA) [Mass fraction] 94 % Pulm Wstr Work Phone: [facility] Comment on above: 4L 08-27-2024 08:37-0400 SaO2% (BldA) [Mass fraction] 93 % Radha Click POT FISHER.TWISTING OPERATOR Work Phone: [facility] Comment on above: 4L 08-27-2024 08:06-0400 Body mass index (BMI) [Ratio] 61.23 kg/m2 Radha Click POT FISHER.TWISTING OPERATOR Work Phone: [facility] 08-27-2024 08:06-0400 Body weight 199.13 kg Radha Click POT FISHER.TWISTING OPERATOR Work Phone: [facility] 08-27-2024 08:06-0400 Diastolic blood pressure 73 mm[Hg] Rahda Click POT FISHER.TWISTING OPERATOR Work Phone: [facility] 08-27-2024 08:06-0400 Heart rate 108 /min Radha Click POT FISHER.TWISTING OPERATOR Work Phone: [facility] 08-27-2024 08:06-0400 Respiratory rate 17 /min Radha Click POT FISHER.TWISTING OPERATOR Work Phone: [facility] 08-27-2024 08:06-0400 Systolic blood pressure 104 mm[Hg] Radha Chapman POT FISHER.TWISTING OPERATOR Work Phone: [facility] 07-18-2024 08:05-0400 Body mass index (BMI) [Ratio] 59.34 kg/m2 Louann Bermeo POT FISHER.TWISTING OPERATOR Work Phone: [facility] 07-18-2024 08:05-0400 Body weight 193 kg Louann Bermeo POT FISHER.TWISTING OPERATOR Work Phone: [facility] 07-18-2024 08:05-0400 Diastolic blood pressure 77 mm[Hg] Louann Bermeo POT FISHER.TWISTING OPERATOR Work Phone: [facility] 07-18-2024 08:05-0400 Heart rate 108 /min Louann Bermeo POT FISHER.TWISTING OPERATOR Work Phone: [facility] 07-18-2024 08:05-0400 Systolic blood pressure 149 mm[Hg] Louann Bermeo POT FISHER.TWISTING OPERATOR Work Phone: [facility] 05-26-2024 21:01-0500 Body temperature 99.8 [degF] Louann Bermeo CHILD STUDY TEAM DIRECTOR-C Work Phone: [facility] 05-26-2024 21:01-0500 Diastolic blood pressure 42 mm[Hg] Louann Bermeo CHILD STUDY TEAM DIRECTOR-C Work Phone: [facility] 05-26-2024 21:01-0500 Heart rate 99 /min Louann Bermeo CHILD STUDY TEAM DIRECTOR-C Work Phone: [facility] 05-26-2024 21:01-0500 Respiratory rate 20 /min Louann Bermeo CHILD STUDY TEAM DIRECTOR-C Work Phone: [facility] 05-26-2024 21:01-0500 SaO2% (BldA) [Mass fraction] 97 % Louann Bermeo CHILD STUDY TEAM DIRECTOR-C Work Phone: [facility] 05-26-2024 21:01-0500 Systolic blood pressure 113 mm[Hg] Louann Bermeo CHILD STUDY TEAM DIRECTOR-C Work Phone: [facility] 05-26-2024 21:00-0500 Inhaled oxygen flow rate 5 L/min Louann Bermeo CHILD STUDY TEAM DIRECTOR-C Work Phone: [facility] 05-26-2024 20:09-0500 Inhaled oxygen concentration 5 % Louann Bermeo CHILD STUDY TEAM DIRECTOR-C Work Phone: [facility] 05-26-2024 19:46-0500 Body mass index (BMI) [Ratio] 57.2 kg/m2 Louann Bermeo CHILD STUDY TEAM DIRECTOR-C Work Phone: [facility] 05-26-2024 19:46-0500 Body weight 191.41 kg Louann Bermeo CHILD STUDY TEAM DIRECTOR-C Work Phone: [facility] 04-28-2024 12:39-0500 Body mass index (BMI) [Ratio] 58.05 kg/m2 Liberty Weir POT FISHER.TWISTING OPERATOR Work Phone: [facility] 04-28-2024 12:39-0500 Body temperature 98.49 [degF] Liberty Weir POT FISHER.TWISTING OPERATOR Work Phone: [facility] 04-28-2024 12:39-0500 Body weight 188.8 kg Liberty Weir POT FISHER.TWISTING OPERATOR Work Phone: [facility] 04-28-2024 12:39-0500 Diastolic blood pressure 84 mm[Hg] Liberty Weir POT FISHER.TWISTING OPERATOR Work Phone: [facility] 04-28-2024 12:39-0500 Heart rate 116 /min Liberty Weir POT FISHER.TWISTING OPERATOR Work Phone: [facility] 04-28-2024 12:39-0500 Respiratory rate 17 /min Liberty Weir POT FISHER.TWISTING OPERATOR Work Phone: [facility] 04-28-2024 12:39-0500 SaO2% (BldA) [Mass fraction] 63 % Liberty Weir POT FISHER.TWISTING OPERATOR Work Phone: [facility] 04-28-2024 12:39-0500 Systolic blood pressure 132 mm[Hg] Liberty Claygs POT FISHER.TWISTING OPERATOR Work Phone: [facility] 04-12-2024 13:35-0500 Diastolic blood pressure 73 mm[Hg] Louann Bermeo POT FISHER.TWISTING OPERATOR Work Phone: [facility] 04-12-2024 13:35-0500 Heart rate 86 /min Louann Jean-Claude POT FISHER.TWISTING OPERATOR Work Phone: [facility] 04-12-2024 13:35-0500 Respiratory rate 14 /min Louann Yanioble POT FISHER.TWISTING OPERATOR Work Phone: [facility] 04-12-2024 13:35-0500 Systolic blood pressure 117 mm[Hg] Louann Bermeo POT FISHER.TWISTING OPERATOR Work Phone: [facility] 04-01-2024 07:00-0500 Body temperature 97.7 [degF] OLGA URBANO MD [facility] 04-01-2024 07:00-0500 Diastolic Blood Pressure Non-Invasive 74 mm[Hg] OLGA URBANO MD [facility] 04-01-2024 07:00-0500 Heart rate 68 /min OLGA URBANO MD [facility] 04-01-2024 07:00-0500 Respiratory rate 17 /min OLGA URBANO MD [facility] 04-01-2024 07:00-0500 Systolic Blood Pressure Non-Invasive 112 mm[Hg] OLGA URBANO MD [facility] 04-01-2024 06:20-0500 Heart rate 65 /min OLGA URBANO MD [facility] 04-01-2024 04:28-0500 Body weight 173.4 kg OLGA URBANO MD [facility] 04-01-2024 03:27-0500 Blood Pressure Cuff Size OLGA URBANO MD [address] [place] [id number] 04-01-2024 03:27-0500 Blood Pressure Location OLGA URBANO MD [address] [place] [address] 04-01-2024 03:27-0500 Blood Pressure Method OLGA URBANO MD [address] 04-01-2024 03:27-0500 Body temperature 98.06 [degF] OLGA URBANO MD [address] [place] [address] 04-01-2024 03:27-0500 Diastolic Blood Pressure Non-Invasive 76 mm[Hg] OLGA URBANO MD [address] 04-01-2024 03:27-0500 Heart rate 75 /min OLGA URBANO MD [address] 04-01-2024 03:27-0500 Reason For Taking VItal Signs OLGA URBANO MD [address] [place] [address] 04-01-2024 03:27-0500 Respiratory rate 16 /min OLGA URBANO MD [address] 04-01-2024 03:27-0500 Systolic Blood Pressure Non-Invasive 128 mm[Hg] OLGA URBANO MD [address] 04-01-2024 03:03-0500 Heart rate 74 /min OLGA URBANO MD [address] [place] [address] 04-01-2024 03:03-0500 Respiratory rate 18 /min OLGA URBANO MD [address] [place] [address] 04-01-2024 02:09-0500 Body temperature 98.24 [degF] OLGA URBANO MD [address] [place] [address] 04-01-2024 02:09-0500 Diastolic Blood Pressure Non-Invasive 63 mm[Hg] OLGA URBANO MD [address] [place] [address] 04-01-2024 02:09-0500 Heart rate 60 /min OLGA URBANO MD [facility] 04-01-2024 02:09-0500 Systolic Blood Pressure Non-Invasive 109 mm[Hg] OLGA URBANO MD [facility] 03-31-2024 23:32-0500 Heart rate 61 /min OLGA URBANO MD [address] [place] [address] 03-31-2024 23:32-0500 Mean blood pressure 95 mm[Hg] OLGA URBANO MD [address] [place] [address] 03-31-2024 23:32-0500 Reason For Taking VItal Signs OLGA URBANO MD [address] [place] [address] 03-31-2024 19:57-0500 Heart rate 61 /min OLGA URBANO MD [address] [place] [address] 03-31-2024 19:57-0500 Reason For Taking VItal Signs OLGA URBANO MD [address] [place] [address] 03-31-2024 19:08-0500 Mean blood pressure 85 mm[Hg] OLGA URBANO MD [facility] 03-31-2024 14:59-0500 Mean blood pressure 74 mm[Hg] OLGA URBANO MD [facility] 03-31-2024 08:42-0500 Body weight 179 kg OLGA URBANO MD [facility] 03-31-2024 05:50-0500 Body weight 191.4 kg OLGA URBANO MD [address] [place] [address] 2024 21:21-0500 Heart rate 77 /min OLGA URBANO MD [facility] 03-29-2024 23:13-0500 Body height 185 cm OLGA URBANO MD [facility] 03-29-2024 23:13-0500 Body weight 55.51 kg/m2 OLGA URBANO MD [facility] 03-29-2024 21:41-0500 Diastolic Blood Pressure Non-Invasive 68 mm[Hg] SANDEE HILL DO [facility] 03-29-2024 21:41-0500 Heart rate 75 /min SANDEE HILL DO [facility] 03-29-2024 21:41-0500 Respiratory rate 22 /min SANDEE HILL DO [facility] 03-29-2024 21:41-0500 Systolic Blood Pressure Non-Invasive 135 mm[Hg] SANDEE HILL DO [facility] 03-29-2024 19:54-0500 Body temperature 97.52 [degF] SANDEE HILL DO [facility] 03-29-2024 19:47-0500 Diastolic Blood Pressure Non-Invasive 59 mm[Hg] SANDEE HILL DO [facility] 03-29-2024 19:47-0500 Heart rate 75 /min SANDEE HILL DO [facility] 03-29-2024 19:47-0500 Respiratory rate 19 /min SANDEE HILL DO [facility] 03-29-2024 19:47-0500 Systolic Blood Pressure Non-Invasive 112 mm[Hg] SANDEE HILL DO [facility] 03-29-2024 18:45-0500 Diastolic Blood Pressure Non-Invasive 62 mm[Hg] SANDEE HILL DO [facility] 03-29-2024 18:45-0500 Heart rate 66 /min SANDEE HILL DO [facility] 03-29-2024 18:45-0500 Respiratory rate 20 /min SANDEE HUDSON DO [facility] 03-29-2024 18:45-0500 Systolic Blood Pressure Non-Invasive 112 mm[Hg] SANDEE HUDSON DO [facility] 03-29-2024 12:33-0500 Body temperature 99.5 [degF] SANDEE HUDSON DO [facility] 03-29-2024 11:17-0500 Body temperature 101.66 [degF] SANDEE HUDSON DO [facility] 03-29-2024 10:42-0500 SaO2% (BldA) [Mass fraction] 90.7 % SANDEE HUDSON DO AO [facility] 03-29-2024 10:34-0500 Heart rate 139 /min SANDEE HUDSON DO [facility] 03-29-2024 10:15-0500 Heart rate 129 /min SANDEE HUDSON DO [facility] 03-29-2024 10:09-0500 Blood Pressure Cuff Size SANDEE HUDSON DO [facility] 03-29-2024 10:09-0500 Blood Pressure Location SANDEE HUDSON DO [facility] 03-29-2024 10:09-0500 Blood Pressure Method SANDEE HUDSON DO [facility] 03-29-2024 10:09-0500 Body height 182.9 cm SANDEE HUDSON DO [facility] 03-29-2024 10:09-0500 Body weight 190.9 kg ASNDEE HUDSON DO [facility] 03-29-2024 10:09-0500 Heart rate 144 /min SANDEE HUDSON DO [facility] 09-19-2023 11:34-0400 Body mass index (BMI) [Ratio] 56.33 kg/m2 Linette Athy PA-C Work Phone: [facility] 09-19-2023 11:34-0400 Body temperature 97.7 [degF] Linette Athy PA-C Work Phone: [facility] 09-19-2023 11:34-0400 Body weight 183.2 kg Linette Athy PA-C Work Phone: [facility] 09-19-2023 11:34-0400 Diastolic blood pressure 82 mm[Hg] Linette Athy PA-C Work Phone: [facility] 09-19-2023 11:34-0400 Heart rate 100 /min Linette Athy PA-C Work Phone: [facility] 09-19-2023 11:34-0400 Respiratory rate 18 /min Linette Athy PA-C Work Phone: [facility] 09-19-2023 11:34-0400 SaO2% (BldA) [Mass fraction] 93 % Linette Athy PA-C Work Phone: [facility] 09-19-2023 11:34-0400 Systolic blood pressure 128 mm[Hg] Linette Athy PA-C Work Phone: [facility] 08-30-2023 15:52-0400 Body height 182.88 cm [facility] 08-30-2023 15:52-0400 Body mass index (BMI) [Ratio] 52.9 kg/m2 [facility] 08-30-2023 15:52-0400 Body temperature 98 [degF] [facility] 08-30-2023 15:52-0400 Body weight 176.9 kg [facility] 08-30-2023 15:52-0400 Diastolic blood pressure 96 mm[Hg] [facility] 08-30-2023 15:52-0400 Heart rate 63 /min [facility] 08-30-2023 15:52-0400 Respiratory rate 15 /min [facility] 08-30-2023 15:52-0400 SaO2% (BldA) [Mass fraction] 93 % [facility] 08-30-2023 15:52-0400 Systolic blood pressure 152 mm[Hg] [facility] 08-27-2023 12:09-0400 Body temperature 97.3 [degF] Liberty Weir POT FISHER.TWISTING OPERATOR Work Phone: [facility] 08-27-2023 12:09-0400 Body weight 181.9 kg Liberty Weir POT FISHER.TWISTING OPERATOR Work Phone: [facility] 08-27-2023 12:09-0400 Diastolic blood pressure 66 mm[Hg] Liberty Weir POT FISHER.TWISTING OPERATOR Work Phone: [facility] 08-27-2023 12:09-0400 Heart rate 84 /min Liberty Weir POT FISHER.TWISTING OPERATOR Work Phone: [facility] 08-27-2023 12:09-0400 Respiratory rate 18 /min Liberty Weir POT FISHER.TWISTING OPERATOR Work Phone: [facility] 08-27-2023 12:09-0400 Systolic blood pressure 136 mm[Hg] Liberty Weir POT FISHER.TWISTING OPERATOR Work Phone: [facility] 07-28-2023 13:22-0400 Body height 180.3 cm Bere Holcomb MD Work Phone: [facility] 07-28-2023 13:22-0400 Body weight 184.16 kg Bere Holcomb MD Work Phone: [facility] 07-28-2023 13:22-0400 Diastolic blood pressure 86 mm[Hg] Bere Holcomb MD Work Phone: [facility] 07-28-2023 13:22-0400 Heart rate 102 /min Bere Holcomb MD Work Phone: [facility] 07-28-2023 13:22-0400 Respiratory rate 16 /min Bere Holcomb MD Work Phone: [facility] 07-28-2023 13:22-0400 SaO2% (BldA) [Mass fraction] 93 % Bere Holcomb MD Work Phone: [facility] 07-28-2023 13:22-0400 Systolic blood pressure 120 mm[Hg] Bere Holcomb MD Work Phone: [facility] 06-30-2023 10:13-0500 Body weight 179.17 kg Louann Bermeo APRN.TWISTING OPERATOR Work Phone: [facility] 06-30-2023 10:13-0500 Diastolic blood pressure 88 mm[Hg] Louann Bermeo APRN.TWISTING OPERATOR Work Phone: [facility] 06-30-2023 10:13-0500 Heart rate 104 /min Louann Bermeo APRN.TWISTING OPERATOR Work Phone: [facility] 06-30-2023 10:13-0500 Respiratory rate 18 /min Louann Bermeo APRN.TWISTING OPERATOR Work Phone: [facility] 06-30-2023 10:13-0500 SaO2% (BldA) [Mass fraction] 92 % Louann Bermeo APRN.TWISTING OPERATOR Work Phone: [facility] 06-30-2023 10:13-0500 Systolic blood pressure 146 mm[Hg] Louann Bermeo APRN.TWISTING OPERATOR Work Phone: [facility] 03-31-2023 13:39-0500 Body temperature 97.81 [degF] Kary Garntet APRN.TWISTING OPERATOR Work Phone: [facility] 03-31-2023 13:39-0500 Body weight 183.71 kg Kary Garnett APRN.TWISTING OPERATOR Work Phone: [facility] 03-31-2023 13:39-0500 Diastolic blood pressure 100 mm[Hg] Kary Tamir POT FISHER.TWISTING OPERATOR Work Phone: [facility] 03-31-2023 13:39-0500 Heart rate 99 /min Kary Tamir POT FISHER.TWISTING OPERATOR Work Phone: [facility] 03-31-2023 13:39-0500 Respiratory rate 20 /min Kary Tamir POT FISHER.TWISTING OPERATOR Work Phone: [facility] 03-31-2023 13:39-0500 SaO2% (BldA) [Mass fraction] 97 % Kary Tamir POT FISHER.TWISTING OPERATOR Work Phone: [facility] 03-31-2023 13:39-0500 Systolic blood pressure 152 mm[Hg] Kary Tamir POT FISHER. TWISTING OPERATOR Work Phone: [facility] 02-07-2022 12:58-0400 Body temperature 98.29 [degF] [place] [facility] 02-07-2022 12:58-0400 Diastolic blood pressure 72 mm[Hg] [place] [facility] 02-07-2022 12:58-0400 Heart rate 99 /min [place] [facility] 02-07-2022 12:58-0400 Respiratory rate 18 /min [place] [facility] 02-07-2022 12:58-0400 SaO2% (BldA) [Mass fraction] 96 % [place] [facility] 02-07-2022 12:58-0400 Systolic blood pressure 118 mm[Hg] [place] [facility] 02-07-2022 08:24-0400 Body height 180.3 cm [place] [facility] 02-07-2022 08:24-0400 Body mass index (BMI) [Ratio] 58.58 kg/m2 [place] [facility] 02-07-2022 08:24-0400 Body weight 190.51 kg [place] [facility] 01-05-2022 13:15-0400 Body temperature 97.59 [degF] [place] [facility] 01-05-2022 13:15-0400 Diastolic blood pressure 65 mm[Hg] [place] [facility] 01-05-2022 13:15-0400 Heart rate 114 /min [place] [facility] 01-05-2022 13:15-0400 Respiratory rate 16 /min [place] [facility] 01-05-2022 13:15-0400 SaO2% (BldA) [Mass fraction] 94 % [place] [facility] 01-05-2022 13:15-0400 Systolic blood pressure 126 mm[Hg] [place] [facility] 01-05-2022 08:33-0400 Body height 185.4 cm [place] [facility] 01-05-2022 08:33-0400 Body mass index (BMI) [Ratio] 55.41 kg/m2 [place] 5 [facility] 01-05-2022 08:33-0400 Body weight 190.51 kg [place] [facility] 12-15-2021 14:16-0400 Body temperature 98.6 [degF] DEMETRIO MORALES MD [facility] 12-15-2021 14:16-0400 Diastolic blood pressure 90 mm[Hg] [facility] 12-15-2021 14:16-0400 Heart rate 83 /min DEMETRIO MORALES MD FACP [facility] 12-15-2021 14:16-0400 Reason For Taking VItal Signs DEMETRIO MORALES MD FACP [facility] 12-15-2021 14:16-0400 Respiratory rate 18 /min DEMETRIO MORALES MD FACP [facility] 12-15-2021 14:16-0400 Systolic blood pressure 160 mm[Hg] DEMETRIO MORALES MD FACP [facility] 12-15-2021 10:16-0400 Heart rate 73 /min DEMETRIO MORALES MD FACP [facility] 12-15-2021 10:16-0400 Respiratory rate 18 /min DEMETRIO MORALES MD FACP [address] [place] [address] 12-15-2021 06:19-0400 Heart rate 64 /min DEMETRIO MORALES MD FACP [address] [place] [address] 12-15-2021 06:19-0400 Respiratory rate 18 /min DEMETRIO MORALES MD FACP [address] [place] [address] 12-15-2021 06:15-0400 Body temperature 98.24 [degF] DEMETRIO MORALES MD FACP [address] [place] [address] 12-15-2021 06:15-0400 Diastolic blood pressure 82 mm[Hg] DEMETRIO MORALES MD FACP [address] [place] [address] 12-15-2021 06:15-0400 Heart rate 68 /min DEMETRIO MORALES MD FACP [address] [place] [address] 12-15-2021 06:15-0400 Reason For Taking VItal Signs DEMETRIO MORALES MD FACP [address] [place] [address] 12-15-2021 06:15-0400 Systolic blood pressure 141 mm[Hg] DEMETRIO MORALES MD FACP [address] [place] [address] 12-15-2021 04:52-0400 Body temperature 98.42 [degF] DEMETRIO MORALES MD FACP [address] [place] [address] 12-15-2021 04:52-0400 Diastolic blood pressure 94 mm[Hg] DEMETRIO MORALES MD FACP [address] [place] [address] 12-15-2021 04:52-0400 Heart rate 78 /min DEMETRIO MORALES MD FACP [address] [place] [address] 12-15-2021 04:52-0400 Mean blood pressure 106 mm[Hg] DEMETRIO MORALES MD FACP [address] [place] [address] 12-15-2021 04:52-0400 Reason For Taking VItal Signs DEMETRIO MORALES MD FACP [address] [place] [address] 12-15-2021 04:52-0400 Systolic blood pressure 129 mm[Hg] DEMETRIO MORALES MD FACP [address] [place] [address] 12-14-2021 18:59-0400 Heart rate 67 /min DEMETRIO MORALES MD FACP [facility] 12-13-2021 05:03-0400 SaO2% (BldA) [Mass fraction] 99.3 % DEMETRIO MORALES MD FACP [address] [place] [address] 12-13-2021 04:33-0400 Mean blood pressure 113 mm[Hg] DEMETRIO MORALES MD FACP [address] 12-12-2021 16:22-0400 Body height 182.9 cm DEMETRIO MORALES MD FACP [address] [place] [address] 12-12-2021 16:22-0400 Body weight 182.1 kg DEMETRIO MORALES MD FACP [address] [place] [address] 12-12-2021 16:22-0400 Body weight 54.44 kg/m2 DEMETRIO MORALES MD FACP [address] [place] [address] 12-12-2021 13:24-0400 Body temperature 97.88 [degF] SERGIO KILPATRICKRUFF POT FISHER-TWISTING OPERATOR [address] [place] [address] 12-12-2021 13:24-0400 Diastolic blood pressure 84 mm[Hg] SERGIO JARED POT FISHER-TWISTING OPERATOR [address] [place] [address] 12-12-2021 13:24-0400 Heart rate 96 /min SERGIO KILPATRICKRUFF POT FISHER-TWISTING OPERATOR [address] [place] [address] 12-12-2021 13:24-0400 Respiratory rate 22 /min SERGIO COLEMAN POT FISHER-TWISTING OPERATOR [facility] 12-12-2021 13:24-0400 Systolic blood pressure 120 mm[Hg] SERGIO COLEMAN POT FISHER-TWISTING OPERATOR [facility] 12-12-2021 12:31-0400 SaO2% (BldA) [Mass fraction] 94 % SERGIO COLEMAN POT FISHER-TWISTING OPERATOR [facility] 12-12-2021 10:21-0400 Heart rate 95 /min SERGIO COLEMAN POT FISHER-TWISTING OPERATOR [facility] 12-12-2021 10:21-0400 Respiratory rate 22 /min SERGIO COLEMAN POT FISHER-TWISTING OPERATOR [facility] 12-12-2021 09:03-0400 Body temperature 97.88 [degF] SERGIO COLEMAN POT FISHER-TWISTING OPERATOR [facility] 12-12-2021 09:03-0400 Diastolic blood pressure 84 mm[Hg] SERGIO COLEMAN POT FISHER-TWISTING OPERATOR [facility] 12-12-2021 09:03-0400 Heart rate 94 /min SERGIO COLEMAN POT FISHER-TWISTING OPERATOR [facility] 12-12-2021 09:03-0400 Respiratory rate 22 /min SERGIO COLEMAN POT FISHER-TWISTING OPERATOR [facility] 12-12-2021 09:03-0400 Systolic blood pressure 127 mm[Hg] SERGIO COLEMAN POT FISHER-TWISTING OPERATOR [facility] 12-12-2021 07:58-0400 SaO2% (BldA) [Mass fraction] 93 % SERGIO COLEMAN POT FISHER-TWISTING OPERATOR [facility] 12-12-2021 06:57-0400 Heart rate 102 /min SERGIO COLEMAN POT FISHER-TWISTING OPERATOR [facility] 12-12-2021 06:25-0400 SaO2% (BldA) [Mass fraction] 81 % SERGIO COLEMAN APRN-TWISTING OPERATOR [facility] 12-12-2021 04:38-0400 Heart rate 103 /min SERGIO COLEMAN APRN-TWISTING OPERATOR [facility] 12-12-2021 04:28-0400 Diastolic blood pressure 74 mm[Hg] SERGIO COLEMAN APRNMICHA [facility] 12-12-2021 04:28-0400 Systolic blood pressure 163 mm[Hg] SERGIO COLEMAN APRN-TWISTING OPERATOR [facility] 12-12-2021 04:21-0400 Heart rate 100 /min SERGIO COLEMAN APRN-TWISTING OPERATOR [facility] 12-11-2021 22:18-0400 Body temperature 98.06 [degF] SERGIO COLEMAN APRNMICHA [facility] 12-11-2021 12:04-0400 Body height 185 cm SERGIO COLEMAN APRN-LINDA [facility] 12-11-2021 12:04-0400 Body weight 159.1 kg SERGIO COLEMAN APRN-TWISTING OPERATOR [facility] 12-11-2021 12:04-0400 Body weight 46.49 kg/m2 SERGIO COLEMAN APRN-TWISTING OPERATOR [facility] 12-11-2021 11:56-0400 Reason For Taking VItal Signs SERGIO COLEMAN APRN-TWISTING OPERATOR [facility] 09-06-2021 14:28-0400 Body temperature 98.01 [degF] [place] [facility] 09-06-2021 14:28-0400 Diastolic blood pressure 77 mm[Hg] [place] [facility] 09-06-2021 14:28-0400 Heart rate 102 /min [place] [facility] 09-06-2021 14:28-0400 Respiratory rate 18 /min [place] [facility] 09-06-2021 14:28-0400 SaO2% (BldA) [Mass fraction] 97 % [place] [facility] 09-06-2021 14:28-0400 Systolic blood pressure 115 mm[Hg] [place] [facility] 09-06-2021 08:43-0400 Body height 185.4 cm [place] [facility] 09-06-2021 08:43-0400 Body mass index (BMI) [Ratio] 46.18 kg/m2 [place] [facility] 09-06-2021 08:43-0400 Body weight 158.76 kg [place] [address] [place] [address] 08-09-2021 13:54-0400 Body temperature 97.7 [degF] [address] 08-09-2021 13:54-0400 Diastolic blood pressure 73 mm[Hg] [address] 08-09-2021 13:54-0400 Heart rate 93 /min [address] 08-09-2021 13:54-0400 Respiratory rate 18 /min [address] 08-09-2021 13:54-0400 SaO2% (BldA) [Mass fraction] 94 % [address] 08-09-2021 13:54-0400 Systolic blood pressure 149 mm[Hg] [address] 08-09-2021 08:20-0400 Body height 185.[address] 08-09-2021 08:20-0400 Body mass index (BMI) [Ratio] 46.18 kg/m2 [address] 08-09-2021 08:20-0400 Body weight 158.[address] 07-12-2021 13:23-0500 Body temperature 98.4 [degF] [address] 07-12-2021 13:23-0500 Diastolic blood pressure 55 mm[Hg] [address] 07-12-2021 13:23-0500 Heart rate 110 /min [address] [employer] 07-12-2021 13:23-0500 Respiratory rate 16 /min [address] 07-12-2021 13:23-0500 Systolic blood pressure 118 mm[Hg] [place] [facility] 07-12-2021 08:25-0500 SaO2% (BldA) [Mass fraction] 82 % [place] [facility] 04-12-2021 18:30-0500 Body temperature 98 [degF] [facility] 04-12-2021 18:30-0500 Heart rate 104 /min [facility] 04-12-2021 18:30-0500 Respiratory rate 20 /min [facility] 04-12-2021 18:30-0500 SaO2% (BldA) [Mass fraction] 94 % [facility] 03-08-2021 14:00-0400 Body temperature 98.4 [degF] [place] [facility] [employer] Work Phone: 03-08-2021 13:36-0400 Diastolic blood pressure 57 mm[Hg] [place] [facility] [employer] Work Phone: 03-08-2021 13:36-0400 Heart rate 108 /min [place] [facility] Work Phone: 03-08-2021 13:36-0400 SaO2% (BldA) [Mass fraction] 92 % [place] [facility] [employer] Work Phone: 03-08-2021 13:36-0400 Systolic blood pressure 114 mm[Hg] [place] 3 [employer] [facility] Work Phone: 03-08-2021 12:23-0400 Respiratory rate 16 /min [place] [employer] Work Phone: 01-18-2021 21:54-0400 Body height 185.4 cm Sandee Hoyt MD Work Phone: [employer] Work Phone: 01-18-2021 21:54-0400 Body mass index (BMI) [Ratio] 46.18 kg/m2 Sandee Hoyt MD Work Phone: [employer] Work Phone: 01-18-2021 21:54-0400 Body temperature 97.2 [degF] Sandee Hoyt MD Work Phone: [employer] Work Phone: 01-18-2021 21:54-0400 Body weight 158.76 kg Sandee Hoyt MD Work Phone: [employer] Work Phone: 01-18-2021 21:54-0400 Diastolic blood pressure 89 mm[Hg] Sandee Hoyt MD Work Phone: [employer] Work Phone: 01-18-2021 21:54-0400 Heart rate 107 /min Sandee Hoyt MD Work Phone: [employer] Work Phone: 01-18-2021 21:54-0400 Respiratory rate 18 /min Sandee Hoyt MD Work Phone: [employer] Work Phone: 01-18-2021 21:54-0400 SaO2% (BldA) [Mass fraction] 93 % Sandee Hoyt MD Work Phone: [employer] Work Phone: 01-18-2021 21:54-0400 Systolic blood pressure 159 mm[Hg] Sandee Hoyt MD Work Phone: [employer] Work Phone: 11-05-2020 18:40-0400 Body temperature 97.9 [degF] Tiffanie Toneyon DO Work Phone: [employer] Work Phone: 11-05-2020 18:40-0400 Diastolic blood pressure 64 mm[Hg] Tiffanie Young DO Work Phone: [employer] Work Phone: 11-05-2020 18:40-0400 Heart rate 63 /min Tiffanie Young DO Work Phone: [employer] Work Phone: 11-05-2020 18:40-0400 Respiratory rate 20 /min Tiffanie Young [employer] Work Phone: [employer] Phone: 11-05-2020 18:40-0400 SaO2% (BldA) [Mass fraction] 99 % Tiffanie Young [employer] Work Phone: [employer] Phone: 11-05-2020 18:40-0400 Systolic blood pressure 107 mm[Hg] Tiffanie Young [employer] Work Phone: [employer] Phone: 11-05-2020 12:16-0400 Body height 182.9 cm Tiffanie Young [employer] Work Phone: [employer] Phone: 11-05-2020 12:16-0400 Body mass index (BMI) [Ratio] 47.47 kg/m2 Tiffanie Young [employer] Work Phone: [employer] Phone: 11-05-2020 12:16-0400 Body weight 158.76 kg Tiffanie Young [employer] Work Phone: [employer] [employer] Phone: 11-03-2020 13:41-0400 Body temperature 99.1 [degF] [place] [facility] [employer] Phone: 11-03-2020 13:41-0400 Diastolic blood pressure 70 mm[Hg] [place] [facility] [employer] Phone: 11-03-2020 13:41-0400 Heart rate 99 /min [place] [facility] [employer] Phone: 11-03-2020 13:41-0400 Respiratory rate 16 /min [place] 4 [employer] Phone: 11-03-2020 13:41-0400 SaO2% (BldA) [Mass fraction] 92 % [place] [facility] [employer] Phone: 11-03-2020 13:41-0400 Systolic blood pressure 133 mm[Hg] [place] 4 [employer] Work Phone: 11-03-2020 07:54-0400 Body height 185.4 cm [place] 4 [employer] Phone: 11-03-2020 07:54-0400 Body mass index (BMI) [Ratio] 46.18 kg/m2 [place] 4 [employer] Phone: 11-03-2020 07:54-0400 Body weight 158.76 kg [place] 4 [employer] Phone: 05-07-2019 15:48-0500 Respiratory rate 16 /min David [employer]R Phone: [employer] Phone: 05-07-2019 15:48-0500 SaO2% (BldA) [Mass fraction] 99 % David Aviles [employer] Phone: [employer] Phone: 05-07-2019 07:53-0500 Body temperature 98.01 [degF] David Aviles [employer] Phone: [employer] Phone: 05-07-2019 07:53-0500 Diastolic blood pressure 67 mm[Hg] David Aviles [place] Phone: [employer] Phone: 05-07-2019 07:53-0500 Heart rate 70 /min David Aviles [place] Phone: [employer] Phone: 05-07-2019 07:53-0500 Systolic blood pressure 113 mm[Hg] David Aviles [place] Phone: [employer] Phone: 05-07-2019 00:25-0500 Body mass index (BMI) [Ratio] 45.63 kg/m2 David Aviles [employer] Work Phone: [employer] Phone: 05-07-2019 00:25-0500 Body weight 152.61 kg David Aviles [place] Phone: [employer] Phone: 05-03-2019 14:00-0500 Body height 182.9 cm David Aviles [place] Phone: [employer] Phone: 04-01-2019 16:00-0500 Body Temperature 99 [degF] [facility], [place] 04-01-2019 16:00-0500 BP Diastolic 65 mm[Hg] [place], [place] 04-01-2019 16:00-0500 BP Systolic 108 mm[Hg] [place], [place] 04-01-2019 16:00-0500 Pulse (Heart Rate) 98 /min [place], [place] 04-01-2019 16:00-0500 Respiratory Rate 20 /min [place], [place] 04-01-2019 15:45-0500 Pulse Oximetry 96 % [place], [place] 04-01-2019 12:05-0500 BMI (Body Mass Index) 43.4 kg/m2 [place], [place] 04-01-2019 12:05-0500 Body weight 145.15 kg [place], [place] 04-01-2019 12:05-0500 Height 182.9 cm [place] 03-19-2019 13:10-0500 Body Temperature 98.8 [degF] [address] [facility] [place] 03-19-2019 13:10-0500 BP Diastolic 62 mm[Hg] [facility] 4 [place], [place] 03-19-2019 13:10-0500 BP Systolic 116 mm[Hg] [address] 03-19-2019 13:10-0500 Pulse (Heart Rate) 100 /min [address], [place] 03-19-2019 13:10-0500 Pulse Oximetry 90 % [address] , [place] 03-19-2019 13:10-0500 Respiratory Rate 18 /min [address], [place] 03-19-2019 08:27-0500 BMI (Body Mass Index) 44.86 kg/m2 [address], [place] 03-19-2019 08:27-0500 Body weight 154.[address] , [place] 03-19-2019 08:27-0500 Height 185.[address] , [place] 02-27-2019 09:15-0400 Body Temperature 98.1 [degF] Joel [facility], [place] 02-27-2019 09:15-0400 BP Diastolic 66 mm[Hg] Joel [facility] , [place] 02-27-2019 09:15-0400 BP Systolic 133 mm[Hg] Joel [facility] , [place] 02-27-2019 09:15-0400 Pulse (Heart Rate) 85 /min Joel [facility] 02-27-2019 09:15-0400 Pulse Oximetry 95 % Joel [facility] , [place] 02-27-2019 09:15-0400 Respiratory Rate 14 /min Joel [facility], [place] 02-27-2019 04:33-0400 BMI (Body Mass Index) 44.59 kg/m2 Joel Jose [facility], [place] 02-27-2019 04:33-0400 Body weight 153.32 kg Joel [facility] , [place] 02-23-2019 11:50-0400 Height 185.4 cm Joel [facility] , [place] 01-18-2019 09:15-0400 Body Temperature 98.01 [degF] [place] 01-18-2019 09:15-0400 BP Diastolic 62 mm[Hg] [facility] [place] 01-18-2019 09:15-0400 BP Systolic 115 mm[Hg] Sanjuana Olmstead [facility], [place] 01-18-2019 09:15-0400 Pulse (Heart Rate) 75 /min Sanjuana Ratliff [facility], [place] 01-18-2019 09:15-0400 Pulse Oximetry 95 % Sanjuana Olmstead [facility], [place] 01-18-2019 09:15-0400 Respiratory Rate 16 /min Sanjuana Olmstead [facility], [place] 01-18-2019 03:32-0400 BMI (Body Mass Index) 21.14 kg/m2 Sanjuana Ratliff [facility], [place] 01-18-2019 03:32-0400 Body weight 70.72 kg Sanjuana Olmstead [facility], [place] 01-15-2019 16:43-0400 Height 182.9 cm [facility] [place] Encounters Encounter Date Encounter Type Care Provider Facility Start: 03-18-2025 Evaluation and manag ement of inpatient LOUANN BERMEO Facility:[facility] Start: 03-03-2025 End: 03-03-2025 ambulatory LOUANN BERMEO Facility:[facility] Start: 02-26-2025 End: 02-27-2025 ambulatory Louann [facility] Facility:[facility] Start: 02-25-2025 Encounter for other preprocedural examination LOUANN BERMEO [facility] Start: 02-25-2025 End: 02-25-2025 ambulatory LOUANN BERMEO Facility:[facility] Start: 02-24-2025 End: 02-24-2025 ambulatory LOUANN BERMEO Facility:[facility] Start: 02-20-2025 End: 02-20-2025 Emergency department patient visit Dr. Neo Phelps DO -Emergency Department Work Phone: Start: 02-12-2025 End: 02-12-2025 Patient encounter procedure Neo Boone PA -Cat Scan [facility] Work Phone: Start: 02-12-2025 End: 02-12-2025 ambulatory Louann Bermeo Facility:[facility] Start: 01-29-2025 End: 01-29-[address] Dakota Barber MD -[facility] Work Phone: Start: 01-29-2025 End: 01-29-2025 ambulatory Louann Bermeo Facility:[facility] Start: 01-13-2025 Registered Recurring Louann Bermeo CHILD STUDY TEAM DIRECTOR-C -Occupational Therapy Work Phone: Start: 01-13-2025 ambulatory Louann Bermeo Facilit y:[facility] Start: 01-02-2025 End: 01-03-2025 Admission to same day surgery center Janes Gonzalez MD Work Phone: General Surgery Comment on above: 01/19/2025Monday PSE UDO DATE Start: 01-02-2025 End: 01-03-2025 ambulatory Janes Gonzalez MD Work Phone: General Surgery Start: 01-01-2025 End: 01-01-2025 Patient encounter procedure Jeni Urbina APRN.TWISTING OPERATOR Work Phone: Neurology Comment on above: BOLA (obstructive sle ep apnea) (Primary Dx); Chronic insomnia; Sleep-related hypoventilation due to medical condition; Chronic hypoxemic respiratory failure (HCC); Morbid obesity (HCC) Start: 01-01-2025 End: 01-01-2025 ambulatory LOUANN BEREMO Facility:[facility] Start: 12-17-2024 End: 12-17-2024 Admission to same day surgery center Osman Bautista RD Work Phone: General Surgery Comment on above: Reassessment; Patien t Education Start: 12-17-2024 End: 12-17-[address] Work Phone: General Surgery Start: 12-12-2024 End: 12-12-2024 ambulatory LOUANN BERMEO Facility:[facility] Start: 12-02-2024 End: 12-02-2024 ambulatory LOUANN BERMEO Facility:[facility] Start: 11-28-2024 End: 11-28-2024 ambulatory LOUANN BERMEO Facility:[facility] Start: 11-26-2024 End: 11-26-2024 Albert Niño PA-C Work Phone: Family Medicine [facility] Comment on above: Refill Request Reassessment; Bipin t Education Start: 11-21-2024 End: 11-21-2024 ambulatory LOUANN BERMEO Facility:[facility] Start: 11-19-2024 End: 11-19-2024 ambulatory LOUANN BERMEO Facility:[facility] Start: 11-19-2024 Encounter for other preprocedural examination LOUANN BERMEO [facility] Start: 11-14-2024 End: 11-14-2024 ambulatory LOUANN BERMEO Facility:[facility] Start: 11-13-2024 End: 11-13-2024 Emergency department patient visit Louann NELSON Work Phone: -Emergency Department Work Phone: Start: 11-07-2024 End: 11-07-2024 ambulatory LOUANN BERMEO Facility:[facility] Start: 11-04-2024 End: 11-05-2024 Chart [facility]ing [facility] Work Phone: Neurology Comment on above: Psg Check In (Adult) Start: 10-29-2024 End: 10-29-2024 ambulatory Louann Bermeo APRN.CNP Work Phone: Family Medicine [facility] Comment on above: Test Start: 10-29-2024 End: 10-29-2024 Follow-up encounter Louann Bermeo APRN.CNP Work Phone: Family [facility] Start: 10-29-2024 End: 10-30-2024 Refill Louann Bermeo APRN.TWISTING OPERATOR Work Phone: Family Medicine [facility] Comment on above: Med Change Request Start: 10-28-2024 End: 10-28-2024 ambulatory LOUANN BERMEO Cardiology Comment on above: EKG Start: 10-28-2024 End: 10-28-2024 Patient encounter procedure Ekg Card [facility] Work Phone: Cardiology Start: 10-28-2024 End: 10-28-2024 Patient encounter status Ekg Wstr Work Phone: [facility] Start: 10-28-2024 End: 10-28-2024 ambulatory LOUANN BERMEO Facility:[facility] Start: 10-28-2024 Encounter for other preprocedural examination LOUANN BERMEO [facility] Start: 10-28-2024 End: 10-28-2024 Patient encounter status Us 1 Work Phone: [facility] Start: 10-28-2024 End: 10-28-2024 Subsequent hospital visit by physician [facility] Work Phone: Radiology Comment on above: BOLA (obstructive sle ep apnea) [G47.33] Start: 10-21-2024 End: 10-21-2024 Admission to same day surgery center Osman Bautista RD Work Phone: General Surgery Comment on above: Morbid obesity (HCC) (Primary Dx); Dietary counseling and surveillance Start: 10-21-2024 End: 10-21-2024 Telemedicine consultation with patient Osman Bautista RD Work Phone: General Surgery Start: 10-21-2024 End: 10-21-2024 ambulatory LOUANN BERMEO Facility:[facility] Start: 10-05-2024 ambulatory Louann Bermeo Facilit :[facility] Start: 10-03-2024 End: 10-07-2024 ambulatory Louann Bremeo POT FISHER.LINDA Work Phone: [facility] Comment on above: Water Pill Start: 10-01-2024 End: 10-01-2024 ambulatory LOUANN BERMEO Facility:[facility] Start: 09-25-2024 End: 09-25-2024 ambulatory LOUANN BERMEO Facility:[facility] Start: 09-18-2024 End: 09-18-2024 Patient encounter procedure Emily DUMONT Work Phone: [facility] Comment on above: Acute otitis media, left (Primary Dx) Start: 09-18-2024 End: 09-18-2024 ambulatory EMILY GUSTAFSON Facility:[facility] Start: 09-17-2024 End: 09-17-2024 Patient encounter status Xr Sukhjinder Work Phone: [facility] Start: 09-17-2024 End: 09-17-2024 Subsequent hospital visit by physician Xr [facility] Work Phone: Radiology Comment on above: BOLA (obstructive sle ep apnea) [G47.33] Start: 09-17-2024 End: 09-17-2024 ambulatory LOUANN BERMEO Facility:[facility] Start: 09-12-2024 End: 09-12-2024 Patient encounter procedure Elisa Jean MD Work Phone: [facility] Comment on above: Preoperative testing (Primary Dx); BMI 60.0-69.9, adult (HCC); BOLA (obstructive sleep apnea) Start: 09-12-2024 End: 09-12-2024 Patient encounter status Elisa Jean MD Work Phone: [facility] Start: 09-12-2024 End: 09-12-2024 Telemedicine consultation with patient Elisa Jean MD Work Phone: [facility] Start: 09-12-2024 End: 09-12-2024 ambulatory LOUANN BERMEO Facility:[facility] Start: 09-06-2024 Non-patient / Non-visit Dr. Evans velasquez MD -[facility] Work Phone: Start: 09-05-2024 Non-patient / Non-visit Dr. Toro Bradshaw own -[facility] Start: 09-04-2024 ambulatory Louann Bermeo Facilit y:[facility] Start: 09-04-2024 Non-patient / Non-visit Dr. Jo FUENTES -[facility] Start: 09-04-2024 Non-patient / Non-visit Dr. Toro Bradshaw own [facility] Start: 09-04-2024 Non-patient / Non-visit Dr. Evans velasquez MD [facility] Work Phone: Start: 09-03-2024 ambulatory Sandee Cisneros ity:[facility] Start: 09-03-2024 End: 09-06-2024 Evaluation and management of inpatient Dr. Evans Carter MD -Progressive Care Unit Work Phone: Start: 09-03-2024 ambulatory Neo Greenberg Facility:[facility] Start: 09-03-2024 Non-patient / Non-visit Dr. Rita Lobo MD -[facility] Work Phone: Start: 09-02-2024 End: 09-02-2024 Telephone encounter Berna Ochoa MA General Surgery Comment on above: Benefit Check Start: 08-29-2024 End: 08-29-2024 ambulatory LOUANN BERMEO Facility:[facility] Start: 08-27-2024 End: 08-27-2024 Patient encounter procedure Pulm Lab [facility] Work Phone: [facility] Start: 08-27-2024 End: 08-27-2024 Office outpatient visit 25 minutes Radha Chapman APRN.TWISTING OPERATOR Work Phone: Pulmonary Medicine Comment on above: Severe persistent as thma without complication (HCC) (Primary Dx); Restrictive lung disease; Chronic hypoxemic respiratory failure (HCC); Morbid obesity (HCC) Start: 08-27-2024 End: 08-27-2024 ambulatory [facility] Work Phone: PUL[facility] Comment on above: Spirometry Start: 07-19-2024 End: 07-19-2024 Follow-up encounter Louann Bermeo APRN.TWISTING OPERATOR Work Phone: Family Medicine [facility] Comment on above: Iron deficiency anem ia, unspecified iron deficiency anemia type (Primary Dx) Start: 07-18-2024 End: 07-18-2024 Telephone encounter Louann Bermeo APRN.TWISTING OPERATOR Work Phone: Family Medicine [facility] Comment on above: Patient Question Start: 07-18-2024 End: 07-30-2024 ambulatory LOUANN BERMEO Facility:[facility] Start: 07-18-2024 End: 07-18-2024 Patient encounter procedure Louann Bermeo APRN.TWISTING OPERATOR Work Phone: Family Medicine [facility] Comment on above: Oxygen dependent (Pr imary Dx); Lower extremity edema; Hypokalemia; alf current use of diuretic; Morbid obesity (HCC); Dependence on continuous supplemental oxygen; Severe persistent asthma, uncomplicated; Gastroesophageal reflux disease without esophagitis; Medication management; Encounter for screening for diabetes mellitus; Iron deficiency anemia, unspecified iron deficiency anemia type; Encounter for lipid screening for cardiovascular disease; Current severe episode of major depressive disorder without psychotic features without prior episode (HCC); MARCUS (generalized anxiety disorder) Start: 05-26-2024 End: 05-26-2024 Emergency department patient visit Dr. Onesimo Willson MD -Emergency Department Work Phone: Start: 04-28-2024 End: 04-28-2024 ambulatory LOUANN BERMEO Facility:[facility] Start: 04-28-2024 End: 04-28-2024 Patient encounter procedure Liberty Weir APRN.CNP Work Phone: [facility] Comment on above: Hypoxia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 [address] Red/Corcelles/0 Diet/[facility] General Surgery Comment on above: Red/Corcelles/0 Diet /[facility] Start: 09-25-2024 End: 09-25-2024 Patient encounter procedure 09/25/2024 10:20 AM EDT Office Visit General Surgery [address] [place] [address] Janes Frances MD [address] [place] [address] Red/Corcelles/0 Diet/[facility] General Surgery Comment on above: Red/Corcelles/0 Diet /[facility] Start: 09-17-2024 End: 09-17-2024 Patient encounter procedure 09/17/2024 8:30 AM EDT Appointment Radiology [address] [facility] [place] [address] Radiology Start: 09-17-2024 End: 09-17-2024 ambulatory 09/17/2024 8:15 AM EDT [facility] [address] [place] [address] [facility] Start: 09-13-2024 End: 09-13-2024 Admission to same day surgery center 09/13/2024 8:00 AM EDT [facility] Surgery [address] [place] [address] Irina Dickey, POT FISHER.TWISTING OPERATOR [address] [place] [address] Lower extremity edema [R60.0] General Surgery Comment on above: Lower extremity keke a [R60.0] Start: 09-12-2024 End: 09-12-2025 25-hydroxyvitamin D3 [Mass/volume] in Serum or Plasma VITAMIN D 25 HYDROXY Lab Routine BOLA (obstructive sleep apnea) Preoperative testing BMI 60.0-69.9, adult ([facility]) Expected: 09/12/2024, Expires: 09/12/2025 [facility] Comment on above: Expected: 09/12/2024 , Expires: 09/12/2025 Start: 09-12-2024 End: 09-12-2025 Cobalamin (Vitamin B12) [Mass/volume] in Serum or Plasma VITAMIN B12 Lab Routine BOLA (obstructive sleep apnea) Preoperative testing BMI 60.0-69.9, adult ([facility]) Expected: 09/12/2024, Expires: 09/12/2025 [facility] Comment on above: Expected: 09/12/2024 , Expires: 09/12/2025 Start: 09-12-2024 End: 09-12-2025 Folate [Mass/volume] in Serum or Plasma FOLATE, SERUM Lab Routine BOLA (obstructive sleep apnea) Preoperative testing BMI 60.0-69.9, adult ([facility]) Expected: 09/12/2024, Expires: 09/12/2025 [facility] Comment on above: Expected: 09/12/2024 , Expires: 09/12/2025 Start: 09-12-2024 End: 09-12-2025 Parathyrin.intact [Mass/volume] in Serum or Plasma PTH INTACT Lab Routine BOLA (obstructive sleep apnea) Preoperative testing BMI 60.0-69.9, adult ([facility]) Expected: 09/12/2024, Expires: 09/12/2025 [facility] Comment on above: Expected: 09/12/2024 , Expires: 09/12/2025 Start: 09-12-2024 End: 09-12-2025 Thyrotropin [Units/volume] in Serum or Plasma THYROID STIMULATING HORMONE Lab Routine BOLA (obstructive sleep apnea) Preoperative testing BMI 60.0-69.9, adult (HCC) Expected: 09/12/2024, Expires: 09/12/2025 [facility] Comment on above: Expected: 09/12/2024 , Expires: 09/12/2025 Start: 09-12-2024 End: 12-12-2024 VITAMIN B1 (THIAMINE), WHOLE BLOOD VITAMIN B1 (THIAMINE), WHOLE BLOOD Lab Routine BOLA (obstructive sleep apnea) Preoperative testing BMI 60.0-69.9, adult (HCC) Expected: 09/12/2024, Expires: 12/12/2024 [facility] Comment on above: Expected: 09/12/2024 , Expires: 12/12/2024 Start: 09-09-2024 End: 09-09-2024 ambulatory 09/09/2024 1:00 PM EDT OT/PT/Speech Visit [facility] Physical Therapy [address] [place] [address] Lisy Dao, HERMANN Lower extremity edema [R60.0] [facility] Comment on above: Lower extremity keke a [R60.0] Start: 09-06-[address] [facility] Start: 09-05-2024 Respiratory Culture Respiratory Cult ure [facility] Start: 09-04-2024 Care planning and problem solving actions [facility] Start: 09-04-2024 Elevation of affecte d extremity [facility] Start: 09-04-2024 Notification of physician [facility] Start: 09-04-[address] [facility] Start: 09-04-2024 Oxygen therapy [facility] Start: 09-03-2024 Following clinical pathway protocol [facility] Start: 09-03-2024 Assessment of risk o f venous thromboembolism [facility] Start: 09-03-2024 Continuous pulse oximetry [facility] Start: 09-03-2024 Inhalation therapy procedure [facility] Start: 09-03-2024 Insertion of cathete r into peripheral vein [facility] Start: 09-03-2024 Measuring intake and output [facility] Start: 09-03-2024 Providing care accor ding to standard [facility] Start: 09-03-2024 Vital signs measurements [facility] Start: 09-03-2024 [facility] Start: 09-03-2024 Admission procedure [facility] Start: 09-03-2024 [facility] Start: 09-03-2024 Blood culture Blood Culture [facility] Start: 09-03-2024 Dual pressure spontaneous ventilation support [facility] Start: 08-29-2024 End: 08-29-2024 ambulatory 08/29/2024 8:40 AM EDT [facility] [address] [place] [address] Louann Bermeo APRN.TWISTING OPERATOR [address] [place], [place] [address] Weight [facility] Comment on above: Weight Start: 08-14-2024 End: 08-14-2024 ambulatory 08/14/2024 9:45 AM EDT OT/PT/Speech Visit [facility] Physical Therapy [address] [place] [address] Lisy Dao, PT Dx: Lower extremity edema [R60.0] [facility] Comment on above: Dx: Lower extremity edema [R60.0] Start: 07-18-2024 End: 10-17-2024 CBC W Auto Differential panel - Blood [facility] Comment on above: Expected: 07/18/2024 , Expires: 10/17/2024 Start: 07-18-2024 End: 10-17-2024 Comprehensive metabolic 2000 panel - Serum or Plasma [facility] Work Phone: Comment on above: Expected: 07/18/2024 , Expires: 10/17/2024 Start: 07-18-2024 End: 10-17-2024 Ferritin [Mass/volume] in Serum or Plasma [facility] Comment on above: Expected: 07/18/2024 , Expires: 10/17/2024 Start: 07-18-2024 End: 10-17-2024 Hemoglobin A1c in Blood [facility] Comment on above: Expected: 07/18/2024 , Expires: 10/17/2024 Start: 07-18-2024 End: 10-17-2024 Iron and Iron binding capacity panel - Serum or Plasma [facility] Comment on above: Expected: 07/18/2024 , Expires: 10/17/2024 Start: 07-18-2024 End: 10-17-2024 LIPID PANEL, NONFASTING [facility] Comment on above: Expected: 07/18/2024 , Expires: 10/17/2024 Start: 07-11-2024 End: 07-11-2024 Patient encounter procedure 07/11/2024 2:00 PM EST Office Visit [facility] [address] [place], [place] [id number] Louann Bermeo APRN.TWISTING OPERATOR [address], [place] [id number] 3 month follow up [facility] Comment on above: 3 month follow up Start: 06-30-2024 Annual PCP Team Mobility Specialist elier Disease Visit Annual PCP Team Chronic Disease Visit [facility] Start: 06-30-2024 Covid-19 Vaccine (#1) Covid-19 Vacci ne (#1) [facility] Comment on above: Postponed from 09/27 (Declined at this time) Start: 06-30-2024 Covid-19 Vaccine () Covid-19 Vaccine () [facility] Comment on above: Postponed from 01/06 (Declined at this time) Start: 05-26-2024 End: 05-26-2024 [facility] Start: 05-08-2024 Medicare Advantage Annual Wellness Visit Medicare Advantage Annual Wellness Visit [facility] Start: 04-12-2024 End: 07-12-2024 Basic metabolic 2000 panel - Serum or Plasma BASIC METABOLIC PANEL Lab Routine Hypokalemia alf current use of diuretic Expected: 04/12/2024, Expires: 07/12/2024 [facility] Work Phone: Comment on above: Expected: 04/12/2024 , Expires: 07/12/2024 Start: 01-07-2024 Covid-19 Vaccine () Covid-19 Vaccine ( season) [facility] Start: 01-07-2024 Influenza vaccination [facility] Start: 11-05-2023 Influenza vaccination Influenza Vacc ine (#1) [facility] Comment on above: Postponed from 01/06 (Declined at this time) Start: 08-30-2023 [facility] Start: 07-28-2023 End: 10-27-2023 Eosinophils [#/volume] in Blood EOSINOPHIL ABS COUNT Lab Routine Severe persistent asthma without complication Expected: 07/28/2023, Expires: 10/27/2023 [facility] Work Phone: Comment on above: Expected: 07/28/2023 , Expires: 10/27/2023 Start: 07-28-2023 End: 10-27-2023 IgA [Mass/volume] in Serum or Plasma IGA BLD Lab Routine Immune deficiency disorder (HCC) Expected: 07/28/2023, Expires: 10/27/2023 [facility] Work Phone: Comment on above: Expected: 07/28/2023 , Expires: 10/27/2023 Start: 07-28-2023 End: 10-27-2023 IgE [Units/volume] in Serum or Plasma IGE BLD Lab Routine Severe persistent asthma without complication Expected: 07/28/2023, Expires: 10/27/2023 [facility] Work Phone: Comment on above: Expected: 07/28/2023 , Expires: 10/27/2023 Start: 07-28-2023 End: 10-27-2023 IgG [Mass/volume] in Serum or Plasma IGG Lab Routine Severe persistent asthma without complication Expected: 07/28/2023, Expires: 10/27/2023 [facility] Work Phone: Comment on above: Expected: 07/28/2023 , Expires: 10/27/2023 Start: 07-28-2023 End: 10-27-2023 IgM [Mass/volume] in Serum or Plasma IGM Lab Routine Severe persistent asthma without complication Expected: 07/28/2023, Expires: 10/27/2023 [facility] Work Phone: Comment on above: Expected: 07/28/2023 , Expires: 10/27/2023 Start: 07-28-2023 End: 10-27-2023 Natriuretic peptide.B prohormone N-Terminal [Mass/volume] in Serum or Plasma NT PRO BNP Lab Routine Chronic hypoxemic respiratory failure (HCC) Expected: 07/28/2023, Expires: 10/27/2023 [facility] Work Phone: Comment on above: Expected: 07/28/2023 , Expires: 10/27/2023 Start: 06-30-2023 End: 09-29-2023 Comprehensive metabolic 2000 panel - Serum or Plasma [facility] Work Phone: Comment on above: Expected: 06/30/2023 , Expires: 09/29/2023 Start: 06-30-2023 End: 09-29-2023 Hemoglobin A1c in Blood [facility] Work Phone: Comment on above: Expected: 06/30/2023 , Expires: 09/29/2023 Start: 06-30-2023 End: 09-29-2023 LIPID PANEL, NONFASTING [facility] Work Phone: Comment on above: Expected: 06/30/2023 , Expires: 09/29/2023 Start: 03-31-2023 End: 06-30-2023 Bacteria identified in Urine by Culture URINE CULTURE Microbiology Routine Dysuria Expected: 03/31/2023, Expires: 06/30/2023 [facility] Work Phone: Comment on above: Expected: 03/31/2023 , Expires: 06/30/2023 Start: 01-06-2023 Influenza vaccination Influenza Vacc ine (#1) [facility] Start: 05-31-2022 Depression Monitoring Depression Mon lety [facility] Start: 2022 HPV Testing HPV Testing [facility] Start: 2022 Screening for malign ant neoplasm of cervix [facility] Start: 03-08-2022 Hemoglobin A1c measurement A1C test (Diabetic or Prediabetic) [facility] Start: 03-07-2022 End: 03-07-2022 Patient encounter procedure 03/07/2022 Appointment Infusion Therapy [facility] Start: 02-11-2022 End: 02-11-2022 Patient encounter procedure 02/11/2022 Appointment Sleep [facility] Start: 01-06-2022 Influenza vaccination [facility] Start: 12-06-2021 Influenza vaccination Flu vaccine (# 1) [facility] Start: 10-23-2021 End: 10-23-2021 Patient encounter procedure 10/23/2021 Appointment Sleep [facility] Start: 10-05-2021 End: 10-05-2021 Patient encounter procedure 10/05/2021 Appointment Infusion [facility] Start: 09-18-2021 Hemoglobin A1c measurement A1C test (Diabetic or Prediabetic) [facility] Work Phone: Start: 09-06-2021 End: 09-06-2021 Patient encounter procedure 09/06/2021 Appointment Infusion [facility] Start: 08-09-2021 End: 08-09-2021 Patient encounter procedure 08/09/2021 Appointment Infusion Therapy [facility] Start: 07-13-2021 End: 07-13-2021 Patient encounter procedure 07/13/2021 Office Visit Family Medicine Cata Berumen MD [address] [address] [facility] Start: 04-05-2021 End: 04-05-2021 Patient encounter procedure 04/05/2021 Appointment Infusion Therapy [facility] Start: 01-20-2021 Subsequent hospital visit by physician 01/20/2021 Hospital Encounter Infusion Therapy [facility] Start: 01-06-2021 Influenza vaccination [facility] Start: 12-18-2020 End: 12-18-2020 Patient encounter procedure 12/18/2020 Office Visit Infectious Diseases Marcela Ortiz, POT FISHER - CHILD STUDY TEAM DIRECTOR [address] [address] [phone] [facility] Start: 12-01-2020 End: 12-01-2020 Patient encounter procedure 12/01/2020 Appointment Infusion Therapy [facility] Start: 09-22-2020 Annual Wellness Visi t (AWV) Annual Wellness Visit (AWV) [facility] Work Phone: Start: 01-07-2020 Influenza vaccination Flu vaccine (# 1) [place], [place] Start: 10-27-2019 Annual PCP Team Mobility Specialist elier Disease Visit Annual PCP Team Chronic Disease Visit [facility] Start: 06-17-2019 End: 06-17-2019 Office Visit 06/17/2019 Office Visit Otolaryngology Fortino Mccall, [address] [place] [address] [phone] [facility] Start: 04-24-2019 End: 04-24-2019 Office Visit 04/24/2019 Office Visit Infectious Diseases Mona Diaz MD [address] [facility] [address] [place], [place] [id number] [facility] [place] Start: 2019 HPV Vaccine (1 - 3-d ose SCDM series) HPV Vaccine (1 - 3-dose SCDM series) [facility] Start: 03-18-2019 End: 03-18-2019 Office Visit 03/18/2019 Office Visit Sandee Sandra MD [address] [address] [facility] Start: 01-25-2019 End: 01-25-2019 Office Visit 01/25/2019 Office Visit Sandee Sandra MD [address] [address] [facility] Start: 01-06-2019 Influenza vaccination Flu vaccine (# 1) [place], [place] Start: 2013 Cervical cancer screen Cervical canc er screen [place], [place] Start: 2013 Pap Testing Pap Testing [facility] Start: 2013 Screening for malign ant neoplasm of cervix [facility] Start: 2011 DTaP/Tdap/Td vaccine (1 - Tdap) DTaP/Tdap/Td vaccine (1 - Tdap) [facility] Start: 2011 Shingles vaccine (1 of 2) Shingles vaccine (1 of 2) [facility] Start: 2011 Urine microalbumin profile DTaP,Tdap,Td Vaccine (1 - Tdap) [facility] Start: 2010 Hepatitis C screening [facility] Start: 2010 Hepatitis C Screening Hepatitis C Sc carol [facility] Start: 2010 HIV Screening HIV Screening [facility] Start: 2010 HIV screening HIV Screening [facility] Start: 2007 HIV screen HIV screen [place], [place] Start: 2007 HPV vaccine (1 - Fem javed 3-dose series) HPV vaccine (1 - Female 3-dose series) [place], [place] Start: 2005 Varicella Vaccine (1 of 2 - 13+ 2-dose series) Varicella Vaccine (1 of 2 - 13+ 2-dose series) [place] Start: 2004 COVID-19 Vaccine (1) COVID-19 Vaccin e (1) [facility] Start: 2003 DTaP/Tdap/Td vaccine (1 - Tdap) DTaP/Tdap/Td vaccine (1 - Tdap) [place] Start: 2003 HPV vaccine (1 - Fem javed 2-dose series) HPV vaccine (1 - Female 2-dose series) [place] Start: 1998 Pneumococcal 0-64 ye ars Vaccine (1 - PCV) Pneumococcal 0-64 years Vaccine (1 - PCV) [facility] Start: 1998 Pneumococcal 0-64 ye ars Vaccine (1 of 1 - PPSV23) Pneumococcal 0-64 years Vaccine (1 of 1 - PPSV23) [place] Start: 1998 Pneumococcal 0-64 ye ars Vaccine (1 of 3 - PCV13) Pneumococcal 0-64 years Vaccine (1 of 3 - PCV13) [place] Start: 1998 Pneumococcal 0-64 ye ars Vaccine (1 of 4 - PCV13) Pneumococcal 0-64 years Vaccine (1 of 4 - PCV13) [facility] Start: 1998 Pneumococcal vaccination Pneum ococcal Vaccine (1 - PCV) [facility] Start: 1997 COVID-19 Vaccine (#1) COVID-19 Vacci ne (#1) [facility] Start: 1993 Varicella Vaccine (1 of 2 - 2-dose childhood series) Varicella Vaccine (1 of 2 - 2-dose childhood series) [facility] Start: 1992 COVID-19 Vaccine (#1) COVID-19 Vacci ne (#1) [facility] Start: 1992 Hepatitis B Vaccine (1 of 3 - 3-dose series) Hepatitis B Vaccine (1 of 3 - 3-dose series) [facility] Start: 1992 Hepatitis C screening Hepatitis C sc reen [facility] End: 05-01-2019 Arterial Blood Gas, Respiratory Only Arterial Blood Gas, Respiratory Only Lab STAT One Time for 1 Occurrences starting 05/01/2019 until 05/01/2019 [facility] [employer] Work Phone: Comment on above: One Time for 1 Occur rences starting 05/01/2019 until 05/01/2019 BACTERIAL VAGINOSIS NAAT BACTERI AL VAGINOSIS NAAT Lab Routine Acute vaginitis Ordered: 03/31/2023 [facility] Work Phone: Comment on above: Ordered: 03/31/2023 Basic Metabolic Pane l w/ Reflex to MG [facility] [place], [place] Comment on above: Daily until disconti nued starting 02/24/2019, 4 completed Tomorrow AM until di scontinued starting 05/02/2019, 6 completed BIPAP BIPAP Respirator y Care STAT Every 4hr until discontinued starting 05/01/2019 [facility] [employer] Work Phone: Comment on above: Every 4hr until disc ontinued starting 05/01/2019 End: 05-01-2019 C-reactive protein C-reactive protein Lab Routine One Time for 1 Occurrences starting 05/01/2019 until 05/01/2019 [employer] Phone: Comment on above: One Time for 1 Occur rences starting 05/01/2019 until 05/01/2019 MARIA D/TRICHOMONAS NAAT MARIA D /TRICHOMONAS NAAT Lab Routine Acute vaginitis Ordered: 03/31/2023 [employer] Work Phone: Comment on above: Ordered: 03/31/2023 [facility] Comment on above: Daily until disconti nued starting 02/24/2019, 4 completed Tomorrow AM until di scontinued starting 05/02/2019, 6 completed Chest physiotherapy Chest physio therapy Respiratory Care Routine Every 8hr until discontinued starting 02/25/2019 [facility] Comment on above: Every 8hr until disc ontinued starting 02/25/2019 Chlamydia trachomatis+Neisseria gonorrhoeae DNA [Presence] in Unspecified specimen by GUNJAN with probe detection GONORRHEA/CHLAMYDIA NAAT Lab Routine Acute vaginitis Ordered: 03/31/2023 [employer] Work Phone: Comment on above: Ordered: 03/31/2023 Culture blood #1 [facility] Culture blood #2 [facility], [place] End: 11-05-2020 Culture, Blood 1 Culture, Blood 1 Microbiology STAT One Time for 1 Occurrences starting 11/05/2020 until 11/05/2020 [employer] Phone: Comment on above: One Time for 1 Occur rences starting 11/05/2020 until 11/05/2020 Culture, Blood 1 Culture, Blood 1 Microbiology STAT 11/05/2020 12:47 PM EDT [employer] Phone: End: 11-05-2020 Culture, Blood 2 Culture, Blood 2 Microbiology STAT One Time for 1 Occurrences starting 11/05/2020 until 11/05/2020 [employer] Phone: Comment on above: One Time for 1 Occur rences starting 11/05/2020 until 11/05/2020 End: 09-12-2025 ECG COMPLETE ECG COMPLETE ECG Routine BOLA (obstructive sleep apnea) Preoperative testing BMI 60.0-69.9, adult (HCC) 1 Occurrences starting 09/12/2024 until 09/12/2025 [facility] Comment on above: 1 Occurrences starti ng 09/12/2024 until 09/12/2025 ECG COMPLETE ECG COMPLETE ECG Routine BOLA (obstructive sleep apnea) Preoperative testing BMI 60.0-69.9, adult ([facility]) 10/28/2024 3:17 PM EDT [facility] Work Phone: EKG 12 Lead EKG 12 Lead ECG STAT 04/01/2019 12:47 PM EST [facility] [place] Comment on above: Every 20min As Neede d until discontinued starting 01/15/2019 0600, 1000, 1400, 18 00, 2200 until discontinued starting 01/15/2019 Every 4hr while awak e until discontinued starting 02/23/2019 0600, 1000, 1400, 18 00, 2200 until discontinued starting 05/01/2019 End: 02-23-2019 HHN Treatment HHN Treatment Respiratory Care STAT One Time for 1 Occurrences starting 02/23/2019 until 02/23/2019 [facility] Comment on above: One Time for 1 Occur rences starting 02/23/2019 until 02/23/2019 End: 01-18-2019 HIV Screen HIV Screen Lab Routine Tomorrow AM for 1 Occurrences starting 01/18/2019 until 01/18/2019 [facility] Comment on above: Tomorrow AM for 1 Oc currences starting 01/18/2019 until 01/18/2019 HIV Screen HIV Screen Lab R outine 01/18/2019 4:27 AM EDT [facility] [place] End: 12-13-2019 IgA [Mass/Vol] IgA Lab Routine Once for 1 Occurrences starting 12/13/2019 until 12/13/2019 [facility] [place] Comment on above: Once for 1 Occurrenc es starting 12/13/2019 until 12/13/2019 IgA [Mass/Vol] IgA Lab Routine 12/13/2019 11:00 AM EDT [facility] [place] End: 09-18-2020 IgE [Units/volume] in Serum or Plasma IgE Lab Routine Once for 1 Occurrences starting 09/18/2020 until 09/18/2020 [facility] Work Phone: Comment on above: Once for 1 Occurrenc es starting 09/18/2020 until 09/18/2020 End: 01-16-2019 IgE Qn IgE Lab Routine One Time for 1 Occurrences starting 01/16/2019 until 01/16/2019 [facility], [place] Comment on above: One Time for 1 Occur rences starting 01/16/2019 until 01/16/2019 IgE Qn [facility] [place] End: 12-13-2019 IgE Qn IgE Lab Routine Once for 1 Occurrences starting 12/13/2019 until 12/13/2019 [facility], [place] Comment on above: Once for 1 Occurrenc es starting 12/13/2019 until 12/13/2019 End: 01-16-2019 IGG 1, 2, 3, AND 4 IGG 1, 2, 3, AND 4 Lab Routine One Time for 1 Occurrences starting 01/16/2019 until 01/16/2019 [place] Comment on above: One Time for 1 Occur rences starting 01/16/2019 until 01/16/2019 IGG 1, 2, 3, AND 4 [place], [place] End: 12-13-2019 IgG 1, 2, 3, and 4 IgG 1, 2, 3, and 4 Lab Routine Once for 1 Occurrences starting 12/13/2019 until 12/13/2019 [place] Comment on above: Once for 1 Occurrenc es starting 12/13/2019 until 12/13/2019 End: 09-18-2020 IgG 1, 2, 3, and 4 IgG 1, 2, 3, and 4 Lab Routine Once for 1 Occurrences starting 09/18/2020 until 09/18/2020 [employer] Phone: Comment on above: Once for 1 Occurrenc es starting 09/18/2020 until 09/18/2020 End: 12-13-2019 IgG [Mass/Vol] IgG Lab Routine Once for 1 Occurrences starting 12/13/2019 until 12/13/2019 [place] Comment on above: Once for 1 Occurrenc es starting 12/13/2019 until 12/13/2019 IgG [Mass/Vol] IgG Lab Routine 12/13/2019 11:00 AM EDT [place] End: 09-18-2020 IgG, IgA, IgM IgG, IgA, IgM Lab Routine Once for 1 Occurrences starting 09/18/2020 until 09/18/2020 [employer] Phone: Comment on above: Once for 1 Occurrenc es starting 09/18/2020 until 09/18/2020 End: 12-13-2019 IgM [Mass/Vol] IgM Lab Routine Once for 1 Occurrences starting 12/13/2019 until 12/13/2019 [facility] [place] Comment on above: Once for 1 Occurrenc es starting 12/13/2019 until 12/13/2019 IgM [Mass/Vol] IgM Lab Routine 12/13/2019 11:00 AM EDT [facility] [place] Initiate Oxygen Ther apy Protocol [place] Comment on above: Daily until disconti nued starting 01/15/2019 Daily until disconti nued starting 02/23/2019 Daily until disconti nued starting 05/01/2019 End: 02-25-2019 Iron and TIBC Iron and TIBC Lab Add-On Tomorrow AM for 1 Occurrences starting 02/25/2019 until 02/25/2019 [facility] [place] Comment on above: Tomorrow AM for 1 Oc currences starting 02/25/2019 until 02/25/2019 MDI Treatment [facility] [place] Comment on above: 0800,1999 (respirato ry use only) until discontinued starting 01/15/2019 0800,2000 (respirato ry use only) until discontinued starting 02/23/2019 Microorganism identi fied in Unspecified specimen by Culture [facility] Nasal Cannula Oxygen [facility] [place] Comment on above: Daily until disconti nued starting 01/15/2019 Daily until disconti nued starting 02/24/2019 Daily until disconti nued starting 05/04/2019 End: 08-26-2024 NITRIC OXIDE, EXHALED NITRIC OXIDE, EXHALED PFT Routine Severe persistent asthma without complication 1 Occurrences starting 07/28/2023 until 08/26/2024 [facility] Work Phone: Comment on above: 1 Occurrences starti ng 07/28/2023 until 08/26/2024 End: 09-12-2025 PAP TITRATION PSG (CPAP, BIPAP, ASV) PAP TITRATION PSG (CPAP, BIPAP, ASV) Procedures Routine BOLA (obstructive sleep apnea) Preoperative testing BMI 60.0-69.9, adult (HCC) 1 Occurrences starting 09/12/2024 until 09/12/2025 [facility] Comment on above: 1 Occurrences starti ng 09/12/2024 until 09/12/2025 Patient Education [facility] Work Phone: Patient referral [facility] Work Phone: End: 05-01-2019 POC Urine POC Urine Point of Care Testing STAT One Time for 1 Occurrences starting 05/01/2019 until 05/01/2019 [employer] Work Phone: Comment on above: One Time for 1 Occur rences starting 05/01/2019 until 05/01/2019 End: 05-01-2019 Procalcitonin Procalcitonin Lab STAT One Time for 1 Occurrences starting 05/01/2019 until 05/01/2019 [employer] Phone: Comment on above: One Time for 1 Occur rences starting 05/01/2019 until 05/01/2019 End: 01-15-2019 Pulse Oximetry Spot Check Pulse Oximetry Spot Check Respiratory Care Routine One Time for 1 Occurrences starting 01/15/2019 until 01/15/2019 [employer] [facility] Comment on above: One Time for 1 Occur rences starting 01/15/2019 until 01/15/2019 End: 01-08-2022 Sleep Study with PAP Titration Sleep Study with PAP Titration Sleep Center Routine Chronic asthma, severe persistent, uncomplicated Gastroesophageal reflux disease without esophagitis Chronic respiratory failure with hypoxia (HCC) BOLA (obstructive sleep apnea) Class 3 severe obesity with body mass index (BMI) of 50.0 to 59.9 in adult, unspecified obesity type, unspecified whether serious comorbidity present (HCC) Morning headache Witnessed apneic spells One Time for 1 Occurrences starting 01/08/2022 until 01/08/2022 [facility] [employer] Work Phone: Comment on above: One Time for 1 Occur rences starting 01/08/2022 until 01/08/2022 End: 08-26-2024 SPIROMETRY - BASELINE AND POST DILATOR SPIROMETRY - BASELINE AND POST DILATOR PFT Routine Severe persistent asthma without complication 1 Occurrences starting 07/28/2023 until 08/26/2024 [facility] Work Phone: Comment on above: 1 Occurrences starti ng 07/28/2023 until 08/26/2024 End: 01-18-2019 T + B Lymphocyte Differential T + B Lymphocyte Differential Lab Routine Tomorrow AM for 1 Occurrences starting 01/18/2019 until 01/18/2019 [facility] Comment on above: Tomorrow AM for 1 Oc currences starting 01/18/2019 until 01/18/2019 T + B Lymphocyte Differential T + B Lymphocyte Differential Lab Routine 01/18/2019 4:27 AM EDT [facility] Unlisted laparoscopi c procedure stomach LAPAROSCOPY SURGICAL GASTRIC RESTRICTIVE PROCEDURE BILIOPANCREATIC DIVERSION WITH DUODENAL SWITCH Morbid obesity (HCC) [facility] End: 10-13-2025 US Abdomen RUQ US ABD RIGHT UPPER QUADRANT Radiology Routine BOLA (obstructive sleep apnea) Preoperative testing BMI 60.0-69.9, adult (HCC) 1 Occurrences starting 09/12/2024 until 10/13/2025 [facility] Work Phone: Comment on above: 1 Occurrences starti ng 09/12/2024 until 10/13/2025 End: 10-13-2025 XR Chest PA and Lateral XR CHEST 2V FRONTAL/LAT Radiology Routine BOLA (obstructive sleep apnea) Preoperative testing BMI 60.0-69.9, adult (HCC) 1 Occurrences starting 09/12/2024 until 10/13/2025 [facility] Comment on above: 1 Occurrences starti ng 09/12/2024 until 10/13/2025 [facility] Immunizations Immunization Date Immunization Notes Care Provider [facility] 06-30-2023 pneumococcal conjuga te (PCV20) vaccine, 20 valent (PREVNAR 20) Louann Bermeo APRN.CNP Work Phone: [facility] 06-30-2023 tetanus toxoid, redu boogie diphtheria toxoid, and acellular pertussis vaccine, adsorbed Louann Bermeo APRN.CNP Work Phone: [facility] 06-30-2023 pneumococcal Conjuga te, unspecified formulation Louann Bermeo APRN.CNP Work Phone: [facility] Work Phone: 02-07-2019 influenza virus vaccine, unspecified formulation Kary Garnett POT FISHER.TWISTING OPERATOR Work Phone: [facility] 03-08-2017 influenza nasal, unspecified formulation Louann Lomeligulshan POT FISHER.TWISTING OPERATOR Work Phone: [facility] 03-08-2017 influenza virus vaccine, unspecified formulation [place] [address] [place], [place] 03-08-2017 influenza, seasonal, injectable Kary Tamir POT FISHER.TWISTING OPERATOR Work Phone: [facility] Work Phone: Payers Date Payer Category Payer Self-pay [id number] 2023 Medicare UHC MEDICARE MYC ARE UHC MEDICARE [id number] 2023-Present [phone] [address] [place] [id number] Medicare [id number] 2023 Medicare (Managed Care) [facility] MEDICARE [id number] 2023 Medicaid [id number] 2021 Private Health Insurance [id number] 2020 Medicaid [id number] 2018 Private Health Insurance [facility] xxxxxxxxx 2018-Present [phone] [address] [place] [address] xxxxxxxxx [id number] 2018 Private Health Insurance [facility] [id number] 2018-Present [phone] [address] [place] [address] [id number] 2014 Medicare [id number] 1992 Unknown [id number] 2.840.1.313823.3.579.2. 204 1990 Unknown [id number] 2.840.1.639793.3.579.2. 204 1990 Unknown [id number] 2.840.1.657163.3.579.2. 204 1992 Unknown [id number] 2.840.1.324508.3.579.2. 204 1992 Unknown [id number] 2.840.1.149204.3.579.2. 204 1992 Unknown [id number] 2.16840.1.107614.3.579.2. 204 1992 Unknown [id number] 2.16840.1.416547.3.579.2. 204 1992 Unknown [id number] 2.16840.1.452026.3.579.2. 204 1992 Unknown [id number] 2.840.1.188448.3.579.2. 204 1992 Unknown [id number] 2.16840.1.628052.3.579.2. 204 1992 Unknown [id number] 2.16840.1.768657.3.579.2. 204 1992 Unknown [id number] 2.16.840.1.094228.3.579.2. 204 1992 Unknown [id number] 2.840.1.499318.3.579.2. 627 1990 Unknown [id number] 2.840.1.124177.3.579.2. [address] [facility] [id number] Unknown [id number] 2.840.1.161894.3.579.2. 462 Unknown [id number] 2.840.1.290143.3.579.2. 462 Unknown [id number] 2.840.1.189266.3.579.2. 462 Unknown [id number] 2.840.1.790883.3.579.2. 462 Unknown [id number] 2.840.1.521608.3.579.2. 462 Unknown [id number] 2.840.1.139718.3.579.2. 462 Unknown [id number] 2.840.1.769133.3.579.2. 462 Unknown [id number] 2.840.1.779738.3.579.2. 462 Unknown [id number] 2.16840.1.672250.3.579.2. 462 Unknown [id number] 2.16840.1.981870.3.579.2. 462 Unknown [id number] 2.16840.1.623421.3.579.2. 462 Unknown [id number] 2.840.1.637922.3.579.2. 462 Unknown [id number] 2.16.840.1.452226.3.579.2. 462 Unknown [id number] 2.16.840.1.770950.3.579.2. 462 Unknown [id number] 2.16.840.1.275596.3.579.2. 462 Unknown [id number] 2.16.840.1.675779.3.579.2. 462 Unknown [id number] 2.16.840.1.273503.3.579.2. 462 Social History Date Type Detail Facility Start: 01-15-2019 End: 02-20-2025 Tobacco smoking status NHIS Former smoker [facility] [employer] Start: 2008 End: 01-06-2018 History of tobacco use Current smoker [place], [place] Start: 01-15-2019 End: 11-10-2023 Alcohol intake No [facility] Work Phone: Start: 01-15-2019 Alcohol Comment occasional [place], [place] Start: 1990 Sex Assigned At Not on file M [place], [place] Start: 03-19-2019 End: 05-19-2022 Alcohol intake Current non-drinker of alcohol (finding) [place], [place] Start: 12-13-2019 End: 04-28-2024 Tobacco use and exposure Never used [place] Start: 07-30-2021 End: 02-07-2022 Exposure to SARS-CoV-2 (event) Not sure [facility] Start: 1990 Sex Assigned At Female W [facility] Start: 2008 End: 01-06-2018 History of tobacco use Cigarette Smoker [employer] Phone: Start: 12-12-2021 Tobacco smoking status Never smoked tobacco (finding) [facility] Sex Assigned At Sex [facility] Start: 01-05-2022 History SDOH Financial 5 [employer] Phone: Start: 01-05-2022 History SDOH Food Worry 1 FRANK ZHAO [employer] Work Phone: History of tobacco use Cigar Smoker [facility] Start: 03-31-2023 End: 11-10-2023 Cigarettes smoked current (pack per day) - Reported 1 [facility] Work Phone: Start: 03-31-2023 End: 01-01-2025 Alcohol intake Current drinker of alcohol (finding) [facility] Start: 12-21-2017 PHQ2 Score 1 [facility] Work Phone: Start: 03-31-2023 Tobacco Comment Parents smoked in childhood home and currently lives with smokers. [facility] Start: 01-10-2018 Alcohol Comment rare: 5 times/year [facility] Start: 06-30-2023 Tobacco Comment Parents smoked in childhood home [facility] Start: 08-30-2023 Tobacco smoking status NHIS Unknown if ever smoked [facility] Has the [employer], gas, oil, or water [employer] threatened to shut off services in your home in past 12Mo No [facility] Are you now , , , , never or living with a partner? Never [facility] How often to you hav e a drink containing alcohol? Monthly or less [facility] How many standard drinks containing alcohol do you have on a typical day? 1 or 2 [facility] How often do you hav e 6 or more drinks on 1 occasion? Less than monthly [facility] How hard is it for you to pay for the very basics like food, housing, medical care, and heating Hard [facility] Do you feel stress - tense, restless, nervous, or anxious, or unable to sleep at night because your mind is troubled all the time - these days [OSQ] Rather much [facility] (I/We) worried whether (my/our) food would run out before (I/we) got money to buy more. Sometimes true [facility] Start: 09-06-2024 Sex Female (finding) [facility] (I/We) worried whether (my/our) food would run out before (I/we) got money to buy more. Never true [facility] NEGATED: Highlighted row Not [facility] Goals Date Patient Goal Desired Activity /State Personal health goal Functional Status Date Assessment Result Facility 09-06-2024 Functional status Ambulates [facility] Work Phone: 04-01-2024 Functional Status Door open, Room check performed [facility] 04-01-2024 Functional Status [facility] 04-01-2024 [facility] Functional Status bilateral knee high removed/off [facility] 04-01-2024 Functional Status Maintained [facility] 03-31-2024 Functional Status [facility] 03-[facility]20[facility] Functional Status Marta Nolasco [facility] 03-31-2024 Functional Status Nurse Moo west q2hrs Performed 3pm-7pm [facility] 03-31-2024 Functional Status Marta Nolasco [facility] 03-31-2024 Functional Status Bath cloths Marta [facility] 03-31-2024 Functional Status Ambulation Amb ulation in Room [facility] 03-31-2024 Functional Status [facility] 2024 Functional Status Marta Nolasco [facility] 2024 Functional Status Done Marta [facility] 03-29-2024 Functional Status Sensory Deficits None [facility] 03-29-2024 Functional Status Activity Status ADL Gina ke [facility] 03-29-2024 Functional Status Marta Nolasco [facility] 03-29-2024 Functional Status Room check performed [facility] 03-29-2024 Functional Status Marta Nolasco [facility] 12-15-2021 Functional Status Room check performed [facility] 12-15-2021 Functional Status [facility] 12-15-2021 Functional Status [facility] 12-15-2021 Functional Status Done [facility] 12-15-2021 Functional Status [facility] 12-15-2021 Functional Status [facility] 12-14-2021 Functional Status Dinner Percent 100 [facility] 12-14-2021 Functional Status [facility] 12-14-2021 Functional Status [facility] 08-07-2022 Functional Status Valid [place] N/A Aul [facility] 12-12-2021 Functional Status ID band on, Safety level maintained [facility] 12-12-2021 Functional Status Resting [facility] 12-12-2021 Functional Status [facility] 12-12-2021 Functional Status [facility] 12-12-2021 Functional Status [facility] 12-11-2021 Functional Status Room check performed [facility] 12-11-2021 Functional Status Sensory Deficits None A [facility] 06-19-2018 Are you deaf, or do you have serious difficulty hearing No 06/19/2018 5:50 PM Jazzmine Joyner, PARK No [facility] 06-19-2018 Are you blind, or do you have serious difficulty seeing, even when wearing glasses No 06/19/2018 5:50 PM Jazzmine Joyner, PARK No [facility] 06-19-2018 Do you have serious difficulty walking or climbing stairs No 06/19/2018 5:50 PM Jazzmine Joyner, PARK No [facility] 06-19-2018 Do you have difficul ty dressing or bathing No 06/19/2018 5:50 PM Jazzmine Joyner, PARK No [facility] 06-19-2018 Because of a physica l, mental, or emotional condition, do you have difficulty doing errands alone such as visiting a physician's office or shopping No 06/19/2018 5:50 PM Jazzmine Joyner RN No [facility] Mental Status Date Assessment Result Facility 09-06-2024 Cognitive function Voice/Name [facility] Work Phone: 04-01-2024 Mental Status Oriented x 4 [facility] 04-01-2024 Mental Status [facility] 03-31-2024 Mental Status [facility] 2024 Mental Status [facility] 03-29-2024 Mental Status Orientation Oriented x 4 [facility] 03-29-2024 Mental Status [facility] 12-15-2021 Mental Status Orientation Oriented x 4 [facility] 12-15-2021 Mental Status [facility] 12-14-2021 Mental Status [facility] 12-14-2021 Mental Status Orientation Asse ssment Oriented x 4 [facility] 12-13-2021 Mental Status [facility] 12-13-2021 Mental Status [facility] 12-12-2021 Mental Status Orientation Oriented x 4 [facility] 12-12-2021 Mental Status [facility] 12-12-2021 Mental Status [facility] 12-11-2021 Mental Status [facility] 06-19-2018 Because of a physica l, mental, or emotional condition, do you have serious difficulty concentrating, remembering, or making decisions No 06/19/2018 5:50 PM Jazzmine Joyner RN No [facility] Clinical Notes 06-16-2018 to 03-19-2025 Jeni Urbina, GALLO.TWISTING OPERATOR - 01/01/2025 8:00 AM EDTPatient Osman Acosta RD - 12/17/2024 10:15 AM EDTPatient Osman Acosta RD - 11/26/2024 10:15 AM EDT Note Date & Type Note Facility 03-19-2025 Note [facility] 03-19-2025 Note [facility] 03-18-2025 Note [facility] 03-18-2025 Note [facility] 03-17-2025 Note [facility] 03-03-2025 Note [facility] 02-26-2025 Note [facility] 02-26-2025 Note [facility] 02-24-2025 Note [facility] 02-20-2025 Discharge summary [facility] 02-20-2025 Radiology Diagnostic study note [facility] Imaging Services [address] [place], [place] [address] CTA Chest W/WO Contrast MR#: [id number] Acct: [id number] Name: TORRIE MARTINEZ Rep #: [id number] : 1990 F 34 From: Kin Quintero MD PCP: OMAR Jones Status: REG ER Study:CTA Chest W/WO Contrast Date of Exam: 02/20/25 Exam# [id number] Ordering Dr: Neo Phelps DO PROCEDURE: CTA CHEST W/WO CONTRAST 02/20/2025 REASON FOR EXAM: ELEVATED DDIMER, SOB TECHNIQUE: Procedure Code: CTCTACHWW Modality: CT Procedure: CTA CHEST W/WO CONTRAST Multiplanar Sagittal and Coronal images were obtained. 3D post processing was performed CONTRAST: Isovue 370 VOLUME: 95 mL One or more dose reduction techniques were used (e.g., Automated exposure control, adjustment of the mA and/or kV according to patient size, use of iterative reconstruction technique). Multiplanar Sagittal and Coronal images were obtained. 3D post processing was performed RADIATION DOSE SUMMARY: CTDlvol: 13.5 mGy DLP: 568.35 mGycm COMPARISON: Prior chest radiograph done earlier in the day. FINDINGS: Hardware: None Lymph nodes: No significant lymph nodes are seen. Heart: The heart is nonenlarged. Thoracic Aorta: No thoracic aortic aneurysm or dissection. Pulmonary Vessels: No evidence of pulmonary embolism. Lungs and Airways: Stable elevation of the left hemidiaphragm. Minimal atelectasis at the left lung base with scarring and bronchiectasis. Scarring in the lingular segment of the left upper lobe. Pleura: No pleural effusion. Upper Abdomen: Splenomegaly. Bones: Degenerative changes of the thoracic spine. CT/CTA Chest W/WO Contrast IMPRESSION: NORMAL CHEST CTA. NO EVIDENCE OF ACUTE PULMONARY EMBOLISM. Elevation of the left hemidiaphragm with findings suggestive of atelectasis and scarring at the left lung base as well as the lingular segment of the left upper lobe. [facility] CC: CHILD STUDY TEAM DIRECTORDiaC Louann Bermeo; Dr. Neo Phelps DO ~ Whistle Punk: Signed [facility] 02-20-2025 Radiology Diagnostic study note [facility] Imaging Services [address] [place] [address] Chest PA and Lateral MR#: [id number] Acct: [id number] Name: TORRIE MARTINEZ Rep #: [id number] : 1990 F 34 From: Gomez Hi MD PCP: OMAR Jones Status: REG ER Study:Chest PA and Lateral Date of Exam: 02/20/25 Exam# [id number] Ordering Dr: Neo Phelps DO PROCEDURE: CHEST PA AND LATERAL 02/20/2025 REASON FOR EXAM: COUGH TECHNIQUE: Procedure Code: RADCXR Modality: DX Procedure: CHEST PA AND LATERAL COMPARISON: September 03, 2024 FINDINGS: Heart size is within normal limits. There is elevation of the left hemidiaphragm which may indicate paralysis, similar to the prior. There is no focal infiltrate or consolidation. There is no pneumothoraxor significant effusion. There is no acute bony abnormality. There is no visible atherosclerosis. RAD/Chest PA and Lateral IMPRESSION: There is elevation of the left hemidiaphragm which may indicate paralysis, similar to the prior. There is no acute infiltrate. Reading Location: [facility] CC: [facility] Louann Bermeo; Dr. Neo Phelps DO ~ Whistle Punk: Signed [facility] 01-01-2025 History of Present illness Narrative Images from the original note were not included. [facility] New Patient Evaluation PATIENT NAME: Torrie Martinez DATE OF SERVICE: January 01, 2025 Recording using Harry [employer] software for draft documentation of the visit was discussed with the patient/authorized personal banking representative; all questions welcomed and answered. Patient/authorized personal banking representative agreed to proceed CONSULTING PROVIDER: Elisa Jean [id number] On license of [facility] [id number] REASON FOR CONSULT: Elisa Jean sends the patient for an opinion about BOLA. My findings and recommendations will be transmitted electronically via shared medical record to the consulting provider. HPI: The patient is a 34-year-old female with a history of BOLA, presenting for evaluation of CPAP use in anticipation of bariatric surgery. She had a recent PAP titration study--it was split when she reached mild BOLA, recommendation of CPAP 11 cmH2O and ongoing use of supplemental O2. The patient has been using a CPAP machine (pressure unknown) since 2292-4251 but reports significant discomfort, including xerostomia and the formation of white bubbles on her gums. She notes that upon removing the CPAP, her mouth feels stuck, necessitating substantial water intake to alleviate the dryness. She uses a full-face mask and has tried a nasal mask in the past, which was ineffective due to her mouth opening during sleep. She denies experiencing mask leaks and uses humidification with distilled water. She has not been using the CPAP consistently due to these issues but acknowledges its benefits and keeps it available for use as needed. She feels she knows when she needs to use it. She acknowledges she hasn't been using CPAP lately. The patient also uses supplemental oxygen at 6 L/min nocturnally and during activities requiring increased exertion, such as house cleaning. She does not use oxygen while sedentary. She is followed by Pulmonology severe persistent asthma, restrictive lung disease, chronic hypoxic respiratory failure requiring supplemental O2. She left her oxygen in the car today. She reports a history of sinus surgery and ongoing allergy issues, contributing to nasal congestion. The patient experiences poor sleep quality, primarily sleeping during the day for approximately 3 hours. She has difficulty falling asleep at night, often due to coughing, and typically falls asleep around 0200, waking at 0530 to attend to her children. She attempts to sleep at 2230 but remains awake for about 4 hours. She denies using melatonin or other sleep aids. She reports frequent nocturnal awakenings every 45 minutes to an hour, attributed to diuretic use. She denies sleep paralysis or acting out dreams but does report sleep-related hallucinations, particularly when alone at home. She experiences involuntary leg movements during sleep and denies a family history of BOLA. The patient reports frequent headache, particularly exacerbated by coughing, describing the pain as excruciating. She has not sought medical evaluation for these headaches. She also has a history of GERD, for which she takes medication with good effect. She denies palpitations. The patient is pursuing bariatric surgery. Today she isn't aware that consistent CPAP use is required preoperatively. She has recently submitted paperwork to her insurance and is preparing for a 3-week liquid diet preoperatively. She has a history of tonsillectomy at age 25. Patient Questionnaires Sleep Scores 12/30/2024 Sleep Questions Reason for visit: Sleep apnea Difficulty falling or staying asleep or poor sleep quality On average, hours of sleep in 24 hours: 6 Average hours of CPAP per night: 4 Percent of nights CPAP used at least 4 hours: 60 Accidents or near accidents due to drowsy drivin Multiple values from one day are sorted in reverse-chronological order 12/30/2024 Bryson Sleepiness Scale Score 7 (No clinically significant daytime sleepiness) 12/30/2024 PROMIS CAT Sleep Disturbance PROMIS Sleep Disturbance T-Score 57 (mild) PROMIS Sleep Disturbance Percentile 24 12/30/2024 Insomnia Severity Index Score 14 12/30/2024 Restless Leg Syndrome Score 19 (Moderate symptoms) 12/30/2024 PHQ-9 Score 9 11/30/2024 PROMIS Global Health - (T-Scores - the mean of general population = 50. Five points is a clinically meaningful difference.) Physical T-Score 39.8 Mental T-Score 43.5 PAST TREATMENTS: CPAP ? cmH2O with O2 bled in at 6 LPM PRIOR SLEEP STUDIES: 11/19/24 PSG AHI 12.2, mean O2 80%, min O2 73%, 95% of time with ETCO2>55 mmHg, 100% of time with TcpCO2>55 mmHg ICSD DIAGNOSIS: Obstructive Sleep Apnea Syndrome [G47.33] Sleep Related Hypoventilation [G47.36] Sleep Related Hypoxia [G47.34] IMPRESSION: 1. Mild obstructive sleep apnea. Respiratory events were associated with oxygen desaturations to a gal of 73%. The severity of this sleep related breathing disorder may be underestimated due to the absence of recorded REM sleep, and the presence of mild flow and effort decrements associated with arousal and/or oxygen desaturation not meeting established CMS respiratory event criteria. 2. At a PAP setting of 11 cmH2O, during which limited supine REM sleep was recorded, the apnea-hypopnea and arousal indices were normalized, snoring was eliminated, and the oxygen saturation was maintained above 90% with 5 L/min. O2. 3. CPAP was transitioned to Bilevel PAP due to hypoventilation. 4. Low oxygen saturation was noted during the study, with hypercapnia, even in the absence of respiratory events. The ETCO2 and/or TcpCO2 value was 55 mmHg for 10 or more minutes during sleep. Supplemental oxygen was administered at 5 L/min. at CPAP 9 cmH2O. The patient does have an underlying cardiopulmonary disorder that may explains these findings. Further clinical correlation is advised. 5. The patient reported on the pre-sleep questionnaire experiencing nightmares and dreams of being chased. No unusual behaviors were observed. Normal REM sleep with atonia was recorded. 6. The patient response causes concern of insomnia, also noting a total habitual sleep duration of 4 hours. Seven to nine hours of sleep is the recommendation for adults. Further evaluation may be warranted. RECOMMENDATIONS: CPAP 11 cmH2O with humidification, 5 L/min. supplemental O2, medium ResMed AirFit F20 full face mask without chin strap and close clinical follow up with data download after 1 month to ensure the pressure range is appropriate (goal AHI < 5.0). PAST MEDICAL HISTORY Diagnosis Date Allergic rhinitis due to allergen 02/2018 [facility] testing. Current severe episode of major depressive disorder without psychotic features without prior episode (HCC) 09/14/2018 DNS (deviated nasal septum) Ex-smoker 01/10/2018 Started at age 18 and quit at 26. Smoked one cigar a day. MARCUS (generalized anxiety disorder) 09/14/2018 GERD (gastroesophageal reflux disease) Immunodeficiency (HCC) IVIG Iron deficiency anemia 06/17/2018 Morbid obesity (HCC) 06/15/2018 Nasal polyposis BOLA on CPAP Pleural effusion 06/15/2018 Severe persistent asthma with acute exacerbation (HCC) 02/12/2018 Vitiligo PAST SURGICAL HISTORY Procedure Laterality Date SECTION HX 2012 PAST SURGICAL HISTORY OF 2015, 2018 B knee arthroscopic surgery SINUS SURGERY HX 2019 TONSILLECTOMY HX 2014 ACTIVE PROBLEM LIST Severe Persistent Asthma With Acute Exacerbation (Hcc) Morbid Obesity (Hcc) Iron Deficiency Anemia Allergic Rhinitis Due to Allergen Ex-Smoker Gerd (Gastroesophageal Reflux Disease) Current Severe Episode of Major Depressive Disorder Without Psychotic Features Without Prior Episode (Hcc) Marcus (Generalized Anxiety Disorder) Encounter for Screening for Diabetes Mellitus Obesity, Class III, BMI >= 40 Allergies As of Date: 01/01/2025 Allergen Noted Reaction SEASONAL ALLERGIES 01/10/2018 Other: See Comments Fully Assessed 01/01/2025 CURRENT MEDICATIONS: albuterol HFA (PROVENTIL HFA, VENTOLIN HFA) 90 mcg/actuation inhaler Inhale 2 puffs as instructed every 4 hours as needed for wheezing/shortness of breath. valACYclovir (VALTREX) 500 mg tablet Take 1 tablet by mouth two times a day. cetirizine (ZYRTEC) 10 mg tablet Take 1 tablet by mouth every afternoon. montelukast (SINGULAIR) 10 mg tablet Take 1 tablet by mouth daily at bedtime. ferrous sulfate 325 mg (65 mg iron) tablet Take 1 tablet by mouth once daily. bumetanide (BUMEX) 2 mg tablet Take 1 tablet by mouth once daily. sertraline (ZOLOFT) 50 mg tablet Take 1 tablet by mouth once daily. cholecalciferol, vitamin D3, 1,250 mcg (50,000 unit) tab Take one pill once per week for 12 weeks cycloSPORINE (RESTASIS) 0.05 % ophthalmic emulsion Use 1 drop in both eyes two times a day. fluorometholone (FML LIQUID FILM) 0.1 % ophthalmic suspension Use 1 drop in both eyes four times daily. nhvrglvyvjb-nosvqvbfy-qufzhbsu (TRELEGY ELLIPTA) 200-62.5-25 mcg inhalation powder Inhale 1 puff as instructed once daily. buPROPion XL (WELLBUTRIN XL) 150 mg 24 hr tablet Take 1 tablet by mouth every morning. famotidine (PEPCID) 20 mg tablet Take 1 tablet by mouth two times a day as needed (GERD 2nd line). fluticasone (FLONASE) 50 mcg/actuation nasal spray Use 1 [place] in each nostril two times a day. Rinse mouth after use. potassium chloride ER (KLOR-CON) 20 mEq tablet Take 1 tablet by mouth every afternoon. prednisoLONE acetate (PRED FORTE) 1 % ophthalmic suspension instill 1 drop into both eyes four times a day levalbuterol (XOPENEX) 0.31 mg/3 mL nebulizer solution 0.31 mg. albuterol (PROVENTIL) 2.5 mg /3 mL (0.083 %) nebulizer solution Use 3 mL via nebulizer every 6 hours as needed for Wheezing/Shortness of Breath. COMPOUNDED PRESCRIPTION Please assess for portable oxygen concentrator. Review of Systems Constitutional: (+ weight loss) Head: (+ headaches) Ears/Nose/Mouth/Throat: (+ dry mouth) Cardiovascular: (- palpitations) Respiratory: (+ cough) Gastrointestinal: (+ heartburn) Genitourinary: (+ nocturia) Musculoskeletal: (+ restless legs) Neurological: (+ sleep-related hallucinations), (- sleep paralysis) Psychiatric: (+ insomnia), (+ daytime sleepiness), (- dream enactment) SOCIAL HISTORY: SOCIAL HISTORY[1] FAMILY HISTORY: FAMILY HISTORY Problem Relation Age of Onset Asthma Mother Seizures Mother Asthma Brother Asthma Son Cancer Father Stage 4 lung cancer. Asthma Sister Diabetes Sister Allergies Maternal Grandmother Diabetes Maternal Grandmother Hypertension Maternal Grandmother Heart disease Maternal Grandfather Alzheimer's Disease No Family History Colon Cancer No Family History Breast Cancer No Family History Ovarian cancer No Family History Uterine Cancer No Family History Prostate Cancer No Family History Coronary Artery Disease No Family History Hyperlipidemia No Family History Kidney Disease No Family History Stroke No Family History Thyroid No Family History Psychiatry No Family History There is no family history of sleep disorders. PHYSICAL EXAMINATION: Vital Signs: BP 115/74 Pulse 74 Resp 16 Wt (!) 192.3 kg (424 lb) LMP 12/20/2024 (Exact Date) SpO2 100% BMI 57.50 kg/m PHYSICAL EXAM: General appearance: pleasant, NAD Mental status: alert and oriented, able to provide own history Constitutional: obese Neuro: No focal deficits observed, no tremors ENT : Posterior airspace: Elliott tongue position 3, retrognathia absent. Overbite absent. High arched palate present. Tongue scalloping/ridging present. IMPRESSION/PLAN: G47.33 BOLA (obstructive sleep apnea) (primary encounter diagnosis) F51.04 Chronic insomnia G47.36 Sleep-related hypoventilation due to medical condition J96.11 Chronic hypoxemic respiratory failure (HCC) E66.01 Morbid obesity (HCC) Torrie Martinez is a 34 year old female with: 1. BOLA (obstructive sleep apnea) (G47.33) 2. Chronic insomnia (F51.04) 3. Sleep-related hypoventilation due to medical condition (G47.36) 4. Chronic hypoxemic respiratory failure (HCC) (J96.11) BOLA with poor CPAP adherence due to dryness and mask discomfort; chronic insomnia with delayed sleep onset and fragmented sleep; sleep-related hypoventilation and chronic hypoxemic respiratory failure managed with nocturnal O2 at 6 L/min. She also uses supplemental O2 during the day whenever she is active. - Contact [facility] to obtain CPAP usage data and current pressure settings; will adjust pressure if indicated per recent PAP titration study that recommended 11 cmH2O. - Advised patient to resume regular CPAP use, especially in preparation for bariatric surgery - Discussed use of humidification and distilled water to reduce dryness; advised application of Vaseline to lips only, avoiding mask cushion contact. - Discussed melatonin as a potential aid for earlier sleep onset; will provide further instructions via MyChart after reviewing CPAP data. - Educated patient on the importance of consistent CPAP use for optimal surgical outcomes and overall health. 5. Morbid obesity (HCC) (E66.01) Morbid obesity with recent weight loss in preparation for bariatric surgery. - Discussed the importance of CPAP compliance for surgical risk assessment and postoperative outcomes. Jeni Urbina APRN.LINDA [1] Social History Tobacco Use Smoking status: Former Current packs/day: 0.00 Average packs/day: 1 pack/day for 9.8 years (9.8 ttl pk-yrs) Types: Cigars, Cigarettes Start date: 2008 Quit date: 01/06/2018 Years since quittin.9 Smokeless tobacco: Never Tobacco comments: Parents smoked in childhood home Vaping Use Vaping status: Never Used Substance Use Topics Alcohol use: Yes Comment: rare: 5 times/year Drug use: No documented in this encounter [facility] 01-01-2025 Note [facility] 12-17-2024 Instructions Osman Bautista, WILLY - 12/17/2024 2:41 PM EDT Nutrition Action Plan Please call [phone], option 5. Leave a message for the navigation team when you are finished with all clearances (nutrition, psychology, medical, surgeon) 1.Starting ~3 weeks after surgery take celebrate ADEK once daily MVI with iron (capsule OR chewable OK) + 3 scoops nutricost calcium powder mixed in water daily 2. Protein goal: 125-167 grams protein/day 3. Fluid goal: 64oz per day water. (no calories, no caffeine, no carbonation, no alcohol) 4. Exercise goal: 150-250 minutes combination cardio/strength training/week 5. Practice mindful eating habits-protein first, take small portions, eat slowly, chew thoroughly, and separate fluid from food 6. Start the full liquid diet (3) weeks prior to surgery using 5 1/2 servings Light Start [place] breakfast Essentials protein shakes per day, continue a minimum of 64 oz water per day during this time. No solid food. May have sugar free popsicle and sugar free jello -During the 3 week liquid diet before surgery include a daily Super B-Complex vitamin 7. Advance diet as tolerated after surgery. Use the Your Guide to Surgery for guidance and meal plans Preop weight goal: 413 lbs Follow Up as needed and 3 weeks prior to surgery documented in this encounter [facility] 12-17-2024 History of Present illness Narrative AMBULATORY PATIENT EDUCATION NOTE- Shared Virtual Nutrition Group I have communicated my name and active licensure. The patient s identity and physical location were verified at the time of this visit. Either the patient or their legal personal banking representative has been informed of the risks and benefits of -- and alternatives to -- treatment through a remote evaluation and consents to proceed with the evaluation remotely. Patient reports weight (as measured by home scale) of 422 pounds. TOPIC: LIFE STYLE CHANGES: Pre-op weight loss surgery (DS [place]): Diet and Exercise PAIN: Is the patient having any pain that is interfering with oral / enteral intake? No 0 on a scale of 0 to 10 PROGRESS: Nutrition Intervention (date of last encounter A Lily 11/26/24): 1. continue to not skip meals. MET 2. Use protein shake 1x per day to replace any skipped meals or for breakfast MET 3. Use the Healthy Plate Method of portion control for lunch and dinner IN PROGRESS 4 oz lean meat (fish, chicken, pork tenderloin, turkey, seafood, eggs/cheese 1/2 plate non starchy vegetables (salad, greens, cabbage, spinach, brussels sprouts, broccoli, carrots, celery, peppers, green beans, cauliflower) 1 cup starch/starchy vegetables (corn, peas, rehman beans, winter squash, sweet potato, rice, pasta, potato) 4. Continue and increase physical activity with a goal of 150 min of aerobic exercise per week. Include strength exercises 2-3 times per week MET 5. Drink 64 ounces per day water. Fluids should follow these guidelines: No carbonation, no caffeine, no calories, no alcohol. IN PROGRESS 6. Vitamins: Research post-op vitamins for LAKESHA/DS procedure: MET - Bariatric Fusion ADEK Complete Capsule (3x per day) AND 4593-6295 mg calcium citrate -https://www.bariatricfusion.com/p roducts/eauydogjy-bhgdlbqaejpt-jge h-dupb-dhzpays-with-iron OR - Procare health once daily LAKESHA/DS MVI AND 3886-4105 mg calcium citrate -https://frooly/collection s/bariatric-multivitamin/products/ atfrzekavaxu-oy-royc-capsule 7. Plan to use Light Start (white label) [place] Breakfast Essentials shake during the preop liquid fast IN PROGRESS 8. Practice these mindful eating techniques: MET Eat slowly by taking small bites and chewing thoroughly Eat protein first, vegetables second, and starches last Separate fluids from foods for 30 minutes before and after each meal/snack Pre-op goal weight: 413 pounds IN PROGRESS CHANGES IN TREATMENT: Patient met goal(s): Yes Actions to implement interventions: see assessment Breakfast - original carnation breakfast essentials (10 gm pro) OR 2 scoops orgain powder mixed with 16 oz milk (16 gm pro) Snack - fruit Lunch - smoothie blended with frozen fruit, 1 scoop orgain powder (20 gm pro) OR original carnation breakfast essentials (10 gm pro), and 2 c milk (16 gm pro) Snack - cucumber salad Dinner - 4 oz shrimp (28 gm pro) and vegetable stir tavarez Snack - fruit Fluids - ~60 oz water, sometimes diet soda Exercise - chair exercises daily for 40 minutes Vitamins - potassium, vitamin D and iron Rx Diagnosis: has not changed. Anthropometrics: Resting Metabolic Rate: 2736 Body mass index is 57.23 kg/m . Malnutrition Screening Significant unintentional weight loss? No Eating less than 75% of usual intake for more than 2 weeks? No Educational materials provided: None this visit READINESS TO LEARN Cognitive ability: Alert and oriented Motivation to learn: Eager Family support: Unable to assess - Family not present Instruction provided to: Patient Patient learns best by: Multiple Methods Factors affecting learning: None Physical limitations affecting learning: None Likelihood of Adherence: High Patient participated in preop bariatric surgery shared nutrition appointment. Patient participated actively in group. Since last assessment, weight has decreased by 3 lbs. Diet recall reveals a consistent meal pattern with regular meals and snacks. Patient replaces breakfast with a protein shake, but original carnation shake does not meet shake guidelines. Most meals include mainly proteins and either fruits or vegetables. Protein intake is inadequate (~87% of recommendations) with high needs overall. Patient agrees to increase her protein intake with snacks. Fluid intake falls just below recommended 64 oz per day, but she has been able to cut back on soda as advised. PA meets recommended >150 minutes with chair exercises and water aerobics. She plans on taking a celebrate ADEK once daily MVI + powdered calcium post operatively, and to use Light Start [place] breakfast Essentials shakes prior to surgery. Patient confirms to eat slowly and separates fluids from foods as recommended. Patient meets the National Institutes of Health guidelines for weight loss surgery and has [facility] Insurance therefore is required to complete 0 months of Nutrition Intervention for clearance for surgery. Today is visit 3 of 0. After session today, patient able to verbalize protein/fluid/exercise goals, recommendations for vitamin/minerals, use of protein shakes for meal replacement and for 2 week full liquid diet phase. Also able to demonstrate post op diet advancement/portion control using food models. Anticipate post op compliance. The patient meets NIH guidelines for weight loss surgery and has been thoroughly evaluated and educated on good dietary practices. Patient is capable of following these guidelines pre-and post-surgically. From nutrition standpoint, the patient is cleared for weight loss surgery. If the patient desires, she may continue to follow-up with the dietitian on a monthly basis until all surgical requirements are met. Nutrition Diagnosis: Overweight/obesity, related to, food/nutrition - related knowledge deficit, as evidenced by waist circumference above normative standard for age and gender. Nutrition Intervention: Modify type and amount of intake at meals and snacks Please call [phone], option 5. Leave a message for the navigation team when you are finished with all clearances (nutrition, psychology, medical, surgeon) 1.Starting ~3 weeks after surgery take celebrate ADEK once daily MVI with iron (capsule OR chewable OK) + 3 scoops nutricost calcium powder mixed in water daily 2. Protein goal: 125-167 grams protein/day 3. Fluid goal: 64oz per day water. (no calories, no caffeine, no carbonation, no alcohol) 4. Exercise goal: 150-250 minutes combination cardio/strength training/week 5. Practice mindful eating habits-protein first, take small portions, eat slowly, chew thoroughly, and separate fluid from food 6. Start the full liquid diet (3) weeks prior to surgery using 5 1/2 servings Light Start [place] breakfast Essentials protein shakes per day, continue a minimum of 64 oz water per day during this time. No solid food. May have sugar free popsicle and sugar free jello -During the 3 week liquid diet before surgery include a daily Super B-Complex vitamin 7. Advance diet as tolerated after surgery. Use the Your Guide to Surgery for guidance and meal plans Preop weight goal: 413 lbs Nutrition Monitoring & Evaluation: 1-2 # weight loss per week prior to surgery Criteria: Weight check Need for Follow up: as needed and 3 weeks prior to surgery MNT Billing Type: Ambulatory Group 3 units Total Time (mins): 75 Signed by: Osman Bautista RD documented in this encounter [facility] 12-17-2024 Note [facility] 12-02-2024 Note [facility] 11-28-2024 Note [facility] 11-26-[address] - 11/26/2024 12:20 PM EDT Nutrition Action Plan 1. continue to not skip meals. 2. Use protein shake 1x per day to replace any skipped meals or for breakfast 3. Use the Healthy Plate Method of portion control for lunch and dinner 4 oz lean meat (fish, chicken, pork tenderloin, turkey, seafood, eggs/cheese 1/2 plate non starchy vegetables (salad, greens, cabbage, spinach, brussels sprouts, broccoli, carrots, celery, peppers, green beans, cauliflower) 1 cup starch/starchy vegetables (corn, peas, rehman beans, winter squash, sweet potato, rice, pasta, potato) 4. Continue and increase physical activity with a goal of 150 min of aerobic exercise per week. Include strength exercises 2-3 times per week 5. Drink 64 ounces per day water. Fluids should follow these guidelines: No carbonation, no caffeine, no calories, no alcohol. 6. Vitamins: Research post-op vitamins for LAKESHA/DS procedure: - Bariatric Fusion ADEK Complete Capsule (3x per day) AND 8459-0076 mg calcium citrate -https://www.bariatricfusion.com/p roducts/ccnikmpwg-odyhccjtblqs-rde j-hgww-axuhzxo-with-iron OR - Procare health once daily LAKESHA/DS MVI AND 5066-8908 mg calcium citrate -https://frooly/collection s/bariatric-multivitamin/products/ veuoliqvndoh-ch-qplv-capsule 7. Plan to use Light Start (white label) [place] Breakfast Essentials shake during the preop liquid fast 8. Practice these mindful eating techniques: Eat slowly by taking small bites and chewing thoroughly Eat protein first, vegetables second, and starches last Separate fluids from foods for 30 minutes before and after each meal/snack Pre-op goal weight: 413 pounds Protein needs: 125-167 gm per day Follow Up on 12/17 at 10:15 AM documented in this encounter [facility] 11-26-2024 History of Present illness Narrative AMBULATORY PATIENT EDUCATION NOTE- Shared Virtual Nutrition Group I have communicated my name and active licensure. The patient s identity and physical location were verified at the time of this visit. Either the patient or their legal personal banking representative has been informed of the risks and benefits of -- and alternatives to -- treatment through a remote evaluation and consents to proceed with the evaluation remotely. Patient reports weight (as measured by home scale) of 425 pounds. TOPIC: LIFE STYLE CHANGES: Pre-op weight loss surgery (DS [place]): Diet and Exercise PAIN: Is the patient having any pain that is interfering with oral / enteral intake? No 0 on a scale of 0 to 10 PROGRESS: Nutrition Intervention (date of last encounter Alexis Bautista 10/21/24): 1. Continue to refer to Nutritional Guidelines Section of Your Guide to Surgery by next session MET https://my.[facility].org/-/s cassets/files/org/bariatric/guides /bmiguidebook-october2019.ashx?la=en 2. Do not skip meals. MET 3. Use protein shake 1x per day to replace any skipped meals or for breakfast MET 4. Use the Healthy Plate Method of portion control for lunch and dinner MET 4 oz lean meat (fish, chicken, pork tenderloin, turkey, seafood, eggs/cheese) 1/2 plate non starchy vegetables (salad, greens, cabbage, spinach, brussels sprouts, broccoli, carrots, celery, peppers, green beans, cauliflower) 1 cup starch/starchy vegetables (corn, peas, beans, winter squash, sweet potato, brown rice, whole grain pasta, whole grain bread products, quinoa) 5. Physical activity: try these exercises 2-3 times a week for 15 minutes to start. Increase time and intensity as able IN PROGRESS [employer]le database: https://gBox/ Chair or standing Team Body Project https://www.youNimbleube.com/watch?v=e8 opMY-SoZc Chair exercise Milk A Deal https://www.[employer]/resour ce/videos-detail.asp?video=38 Amanda Ha Easy walk in place 15 min https://www.youNimbleube.com/watch?v=nj rO34txfUD Body Project 30 min https://youNimbleu.be/J-SgpL5QV-6 Amanda Ha Higher intensity walk 30 min https://www.youNimbleube.com/watch?v=cv KJ9WHc4ZH 6. Drink 64 ounces per day water. Fluids should follow these guidelines: No carbonation, no caffeine, no calories, no alcohol. IN PROGRESS 7. Practice these mindful eating techniques: MET Eat slowly by taking small bites and chewing thoroughly Eat protein first, vegetables second, and starches last Separate fluids from foods for 30 minutes before and after each meal/snack 8. Look into shakes for 2 week preop diet: IN PROGRESS 5 1/2 cartons Light Start [place] Instant Breakfast OR packets mixed with low fat milk OR 4 1/2 bottles High Protein Slim Fast OR 4 1/2 bottles Boost Glucose Control OR 5 cartons Original (15 gm protein) Atkins shake OR 4 1/2 Bottles Original OWYN shake 9. research these vitamin options for use 3 weeks post operatively: IN PROGRESS - Bariatric Fusion: 4 Complete Chewable Multivitamins per day (2 in the AM, 2 in the PM) www.bariatricfusion.[place] - Procare Health: 1 Bariatric Multivitamin and Calcium Citrate (total of 9207-7498 mg/day) * take calcium citrate separately from Multivitamin with iron at least 2 hours apart and 4 hours apart from additional calcium www.frooly - Bariatric Choice: 4 Complete Multivitamins (chewables) per day Www.Hipster - Bariatric Advantage: 2 Multivitamins and 3 Calcium Citrate Chewables per day * take calcium citrate separately from Multivitamin with iron at least 2 hours apart and 4 hours apart from additional calcium Www.bariatricSoundvamp.[place] OR IF DS: Research post-op vitamins for LAKESHA/DS procedure: - Bariatric Fusion ADEK Complete Capsule (3x per day) AND 8372-3384 mg calcium citrate -https://www.bariatricfusion.[place]/p roducts/taopwmiem-upsvijkkitlw-oim t-zsoj-ftxtpyt-with-iron OR - Procare health once daily LAKESHA/DS MVI AND 5769-2473 mg calcium citrate -https://frooly/collection s/bariatric-multivitamin/products/ cbfkzcpenwef-ol-uvfv-capsule Pre-op goal weight: 413 pounds IN PROGRESS Protein needs: 100 gm per day IN PROGRESS Protein needs IF DS: 125-167 gm per day CHANGES IN TREATMENT: Patient met goal(s): Partially Actions to implement interventions: see assessment Breakfast - original carnation breakfast essentials shake (13 gm pro) Snack - slim blanca (7 gm pro) and cheese stick (6 gm pro) OR fruit cup Lunch - original carnation breakfast essentials shake (13 gm pro) OR wrap with 1 can tuna (20 gm pro) and duran OR 5 oz chicken (35 gm pro), broccoli, and rice Snack - none OR fruit cup Dinner - 5 oz chicken, vegetables, and small portion starch Snack - none OR fruit cup Fluids - >64 oz water, 1-2 bottles SF gatorade, sometimes 1 can diet soda Exercise - chair exercises 2-3 times a week for 20-30 minutes; swimming 2x a week for >60 minutes Vitamins - potassium; vitamin D and iron Rx Diagnosis: has changed, and no longer includes physical inactivity Anthropometrics: Resting Metabolic Rate: 2750 Body mass index is 57.64 kg/m . Malnutrition Screening Significant unintentional weight loss? No Eating less than 75% of usual intake for more than 2 weeks? No Educational materials provided: Required Vit & Min Supplements after BPD-DS READINESS TO LEARN Cognitive ability: Alert and oriented Motivation to learn: Eager Family support: Unable to assess - Family not present Instruction provided to: Patient Patient learns best by: Multiple Methods Factors affecting learning: None Physical limitations affecting learning: None Likelihood of Adherence: High Patient participated in preop bariatric surgery shared nutrition appointment. Patient participated actively in group. Since last assessment, weight has decreased by 11 lbs. Most recent lab results reveal low protein, iron, and transferrin; TIBC is high. Diet recall reveals a consistent meal pattern with regular meals and snacks. Patient replaces 1-2 meals per day with a protein shake, but current choice does not meet recommendations. Most meals fit the healthy plate as recommended. Protein intake is inadequate (~65% of low end needs) with moderate sources at most meals and high needs overall. Fluid intake is adequate with water as primary beverage choice, and patient has been cutting back on soda as advised. PA meets recommendations with cardio and swimming, but strength training is limited d/t WILKES. She has not yet decided on post op vitamins. Patient will likely take carnation breakfast essentials shakes prior to surgery. She confirms to eat slowly and separates fluids from foods as recommended. Patient meets the National Institutes of Health guidelines for weight loss surgery and has [facility] Insurance therefore is required to complete 0 months of Nutrition Intervention for clearance for surgery. Today is visit 2 of 0. Patient does meet National Institutes of Health guidelines for weight loss surgery, however would like to see more of an effort in making dietary changes before giving clearance. I anticipate at least 1-2 nutritional follow-up visits prior to clearance for surgery. Nutrition Diagnosis: Overweight/obesity, related to, food/nutrition - related knowledge deficit, as evidenced by BMI above normative standard for age and gender. Nutrition Intervention: Modify type and amount of intake at meals and snacks 1. continue to not skip meals. 2. Use protein shake 1x per day to replace any skipped meals or for breakfast 3. Use the Healthy Plate Method of portion control for lunch and dinner 4 oz lean meat (fish, chicken, pork tenderloin, turkey, seafood, eggs/cheese 1/2 plate non starchy vegetables (salad, greens, cabbage, spinach, brussels sprouts, broccoli, carrots, celery, peppers, green beans, cauliflower) 1 cup starch/starchy vegetables (corn, peas, rehman beans, winter squash, sweet potato, rice, pasta, potato) 4. Continue and increase physical activity with a goal of 150 min of aerobic exercise per week. Include strength exercises 2-3 times per week 5. Drink 64 ounces per day water. Fluids should follow these guidelines: No carbonation, no caffeine, no calories, no alcohol. 6. Vitamins: Research post-op vitamins for LAKESHA/DS procedure: - Bariatric Fusion ADEK Complete Capsule (3x per day) AND 2519-3181 mg calcium citrate -https://www.bariatricfusion.com/p roducts/pkknsjvgm-uijnwagazyaj-hvp w-dsey-krbdnis-with-iron OR - Procare health once daily LAKESHA/DS MVI AND 5172-0986 mg calcium citrate -https://frooly/collection s/bariatric-multivitamin/products/ yzdybrzmwrqj-eh-jizj-capsule 7. Plan to use Light Start (white label) [place] Breakfast Essentials shake during the preop liquid fast 8. Practice these mindful eating techniques: Eat slowly by taking small bites and chewing thoroughly Eat protein first, vegetables second, and starches last Separate fluids from foods for 30 minutes before and after each meal/snack Pre-op goal weight: 413 pounds Protein needs: 125-167 gm per day Nutrition Monitoring & Evaluation: 1-2 # weight loss per week prior to surgery Criteria: Weight check Need for Follow up: 3 weeks MNT Billing Type: Ambulatory Group 2 units Total Time (mins): 60 Signed by: Osman Bautista RD documented in this encounter [facility] 11-26-2024 Note [facility] 11-26-2024 Telephone encounter Note The patient has been identified by name and date of : Yes Caregiver verified no other encounters exist for this prescription request: Yes Caregiver confirmed with patient/requestor that no other refills are due, in the near future, with this provider at this time: Yes The last office visit in the department: 07/18/2024 Does the patient have a future office visit with this provider/department: Yes 07/21/2025 Requested Prescriptions Pending Prescriptions Disp Refills cetirizine (ZYRTEC) 10 mg tablet 90 tablet 1 Sig: Take 1 tablet by mouth every afternoon. montelukast (SINGULAIR) 10 mg tablet 90 tablet 1 Sig: Take 1 tablet by mouth daily at bedtime. ferrous sulfate 325 mg (65 mg iron) tablet 90 tablet 0 Sig: Take 1 tablet by mouth once daily. bumetanide (BUMEX) 2 mg tablet 90 tablet 1 Sig: Take 1 tablet by mouth once daily. sertraline (ZOLOFT) 50 mg tablet 90 tablet 1 Sig: Take 1 tablet by mouth once daily. Jazzmine Kendall RN November 26, 2024 8:50 AM [facility] 11-26-2024 Miscellaneous Notes The patient has been identified by name and date of : Yes Caregiver verified no other encounters exist for this prescription request: Yes Caregiver confirmed with patient/requestor that no other refills are due, in the near future, with this provider at this time: Yes The last office visit in the department: 07/18/2024 Does the patient have a future office visit with this provider/department: Yes 07/21/2025 Requested Prescriptions Pending Prescriptions Disp Refills cetirizine (ZYRTEC) 10 mg tablet 90 tablet 1 Sig: Take 1 tablet by mouth every afternoon. montelukast (SINGULAIR) 10 mg tablet 90 tablet 1 Sig: Take 1 tablet by mouth daily at bedtime. ferrous sulfate 325 mg (65 mg iron) tablet 90 tablet 0 Sig: Take 1 tablet by mouth once daily. bumetanide (BUMEX) 2 mg tablet 90 tablet 1 Sig: Take 1 tablet by mouth once daily. sertraline (ZOLOFT) 50 mg tablet 90 tablet 1 Sig: Take 1 tablet by mouth once daily. Jazzmine Kendall RN November 26, 2024 8:50 AM documented in this encounter [facility] 11-26-2024 Telephone encounter Note The patient has been identified by name and date of : Yes Caregiver verified no other encounters exist for this prescription request: Yes Caregiver confirmed with patient/requestor that no other refills are due, in the near future, with this provider at this time: Yes The last office visit in the department: 07/18/2024 Does the patient have a future office visit with this provider/department: Yes 11/26/2024 Requested Prescriptions Pending Prescriptions Disp Refills valACYclovir (VALTREX) 500 mg tablet 15 tablet 0 Sig: Take 1 tablet by mouth two times a day. Jazzmine Kendall RN November 26, 2024 8:49 AM [facility] 11-26-2024 Miscellaneous Notes The patient has been identified by name and date of : Yes Caregiver verified no other encounters exist for this prescription request: Yes Caregiver confirmed with patient/requestor that no other refills are due, in the near future, with this provider at this time: Yes The last office visit in the department: 07/18/2024 Does the patient have a future office visit with this provider/department: Yes 11/26/2024 Requested Prescriptions Pending Prescriptions Disp Refills valACYclovir (VALTREX) 500 mg tablet 15 tablet 0 Sig: Take 1 tablet by mouth two times a day. Jazzmine Kendall RN November 26, 2024 8:49 AM documented in this encounter [facility] 11-26-2024 Telephone encounter Note [facility] 08/27/24 Patient phones requesting refills as follows: Requested Prescriptions Pending Prescriptions Disp Refills albuterol HFA (PROVENTIL HFA, VENTOLIN HFA) 90 mcg/actuation inhaler 1 each 5 Sig: Inhale 2 puffs as instructed every 4 hours as needed for wheezing/shortness of breath. Please review and advise. Nedra Jon LPN [facility] 11-26-2024 Miscellaneous Notes [facility] 08/27/24 Patient phones requesting refills as follows: Requested Prescriptions Pending Prescriptions Disp Refills albuterol HFA (PROVENTIL HFA, VENTOLIN HFA) 90 mcg/actuation inhaler 1 each 5 Sig: Inhale 2 puffs as instructed every 4 hours as needed for wheezing/shortness of breath. Please review and advise. Nedra Jon LPN documented in this encounter [facility] 11-21-2024 Note [facility] 11-20-2024 Note [facility] 11-14-2024 Note [facility] 11-13-2024 Discharge summary [facility] 11-13-2024 Radiology Diagnostic study note [facility] Imaging Services [address] [place], [place] [address] Knee 4 or More Views MR#: [id number] Acct: [id number] Name: TORRIE MARTINEZ Rep #: [id number] : 1990 F 34 From: Pj Perry MD PCP: Louann Bermeo CHILD STUDY TEAM DIRECTOR-C Status: REG ER Study:Knee 4 or More Views Date of Exam: 11/13/24 Exam# [id number] Ordering Dr: Alanis Bailey MD PROCEDURE: KNEE 4 OR MORE VIEWS 11/13/2024 REASON FOR EXAM: INJURY/PAIN TECHNIQUE: KNEE 4 OR MORE VIEWS COMPARISON: None. FINDINGS: No evidence of acute fracture or dislocation. Mild to moderate degenerative changes of the knee. No knee joint effusion. RAD/Knee 4 or More Views IMPRESSION: No acute osseous abnormalities. Osteoarthrosis. Reading Location: [id number] CC: CHILD STUDY TEAM DIRECTOR-C Louann Bermeo; Dr. Randy Bailey MD ~ [place] [place]: Signed [facility] 11-13-2024 Discharge summary Note Date/Time November 13, 2024 7:42p m [facility] Medical Records Department [address] [place] [address] Emergency Department Summary 11/13/24 MR#: [id number] Acct: [id number] Name: TORRIE MARTINEZ Rep #:[id number] : 1990 34 From: Randy Bailey MD PCP: PARK JonesC Status:REG ER Location: ED HPI History of Present Illness Chief Complaint: Lower Extremity Injury Detail of Chief Complaint: Knee trauma, right Informant: patient Onset/Context/Timing Onset: Days Mechanism/Context: Fall Location of pain/injuries: Right Knee Quality of Pain: Dull and Aching Location: Me right side Current Severity: Mild Maximum Severity: Severe Worsened by: Movement and weightbearing Relieved by: Nothing Associated Symptoms Associated Symptoms: Positive for Loss of function and Inability to ambulate; Negative for Parasthesias or Weakness Narrative Narrative: Patient is a 34-year-old woman. She has chronic respiratory failure with hypoxia and hypercapnia. Prior similar symptoms: No Recent Illness/Hospitalization: No PFSH PFSH Medical History Pneumonia COPD (chronic obstructive pulmonary disease) Environmental allergies Anemia Depression Asthma Home Medications ?Medication ?Instructions ?Recorded ?Last Taken ?Type montelukast 10 mg tablet 10 mg PO DAILY allergies 10/2309/02/24 History albuterol sulfate 90 mcg/actuation 1 - 2 puff inhalati on Q4H PRN 09/03/24 Unknown History aerosol inhaler Wheezing bumetanide 1 mg tablet 1 mg PO DAILY edema 09/03/24 09/02/24 History bupropion HCl 150 mg 24 hr tablet, 150 mg PO DAILY moo d 09/03/24 09/02/24 History extended release cetirizine 10 mg tablet 10 mg PO DAILY allergies 09/02/24 History cyclosporine 0.05 % eye drops in a 1 drp ophthalmic (e ye) BID 09/03/24 Unknown History dropperette famotidine 20 mg tablet 20 mg PO BID PRN stomach ups et 09/03/24 Unknown History ferrous sulfate 325 mg (65 mg 325 mg PO DAILY iron sup plement 09/03/24 09/02/24 History iron) tablet (FeroSul) fluticasone fur. 200 mcg-umeclid 1 ea inhalation DAILY breathing 09/03/24 09/02/24 History 62.5 mcg-vilant 25 mcg inhalat.powder (Trelegy Ellipta) fluticasone propionate 50 1 spray intranasal BID aller gy 09/03/24 Unknown History mcg/actuation nasal symptoms spray,suspension potassium chloride 20 mEq 20 meq PO DAILY supplement 0 09/03/24 09/02/24 History tablet,extended release(part/cryst) sertraline 50 mg tablet 25 mg PO DAILY mood 09/03/24 Unknown History azithromycin 500 mg tablet 500 mg PO DAILY 5 days #5 t abs 09/06/24 Unknown Rx cefdinir 300 mg capsule 300 mg PO BID 7 days #14 cap s 09/06/24 Unknown Rx guaifenesin 600 mg tablet, 1,200 mg (2 x 600 mg) PO BI D #20 09/06/24 Unknown Rx extended release 12 hr (Mucinex) tabs prednisone 20 mg tablet 40 mg (2 x 20 mg) PO BREAKFA ST 7 09/06/24 Unknown Rx days #14 tabs hydrocodone-acetaminophen 5-325mg 1 tab PO Q6H PRN PRN Pain 3 days 11/13/24 Unknown Rx 5mg-325mg #10 TABLETS naproxen 500 mg tablet 500 mg PO BID #10 tabs 11/13 Unknown Rx Allergy/AdvReac Type Severity Reaction Status Date / Time No Known Allergies Allergy Verified 11/13/24 18:46 Family History Other Cancer Surgical History Hx of knee surgery Hx of section Social History housing: house Smoking Status: Former smoker ROS ROS ED Musculoskeletal Musculoskeletal: Reports other Details: HPI narrative ; Denies arthralgias, back pain, myalgias or neck pain Integumentary Denies Abrasions or rash Neurologic Neurologic: Denies paresthesias or weakness Hematologic/Lymphatic Hematologic/Lymphatic: Denies easy bleeding or easy bruising EXAM Physical Exam Const Vital Signs: 11/13/24 18:44 Temperature 97.7 F L Temperature Source Temporal Pulse Rate 83 Respiratory Rate 17 Blood Pressure 142/86 H Blood Pressure Mean 104 Pulse Ox 93 Oxygen Delivery Method Nasal Cannula Oxygen Flow Rate (L/min) 2 Positive well nourished and well developed Constitutional Narrative: BMI greater than 50 General Appearance ED: well developed HEENT HEENT Narrative: HEENT is grossly unremarkable Eyes PERRL and EOMs intact bilaterally Neck full ROM Resp normal respiratory effort and clear to auscultation bilaterally Cardio regular rhythm, S1 normal heart sound and no murmurs Extremity Extremity Narrative: Unable to discern if there is any swelling of the right knee. Exam is limited due to body habitus. Patella is not ballotable. There is no obvious effusion. Question of joint line tenderness over the medial and lateral tibial plateau. Varus valgus stress testing reveals possible laxity of the LCL compared to the uninjured leg. Mary's test and modified Sixto's are at best limited to difficult to ascertain because of body habitus. DP pulses palpable. General Extremety ED: Yes tenderness; Negative for deformity or edema General Extremity: Negative for deformity or edema Neuro oriented x3 and moves all extremities Sensorium / Orientation: alert Psych mental status grossly normal and thought process normal Skin no rashes or lesions noted, no wounds, skin turgor normal and no jaundice MDM MDM MDM Narrative Medical decision making narrative: Will obtain x-ray to see if there is any evidence of osteoarthritis, asymmetry of the joint, effusion which I am not able to determine if she has because of body habitus. Radiography Chest X-Ray - ED: Read by ED Physician (4 view x-ray of the knee reveals some chronic changes. There is no acute process i.e. fracture. There is no effusion. Patella is not high riding. There is degenerative changes noted. There are no comparisons.) Diagnostic Testing: Clinical Impression(s) from Imaging Studies Knee X-Ray 11/13/24 18:52 IMPRESSION: No acute osseous abnormalities. Osteoarthrosis. Reading Location: [id number] Discharge Plan Triage Chief Complaint: Lower Extremity Injury ED Provider: Randy Bailey Dx/Rx/DC Orders Clinical Impression: Pain of right knee after injury, Adult BMI 60.0-69.9 kg/sq m, Osteoarthritis ofright knee Instructions: ED Meniscal Injury Knee Poss Prescriptions: New hydrocodone-acetaminophen 5-325 mg tablet 1 tab PO Q6H PRN PRN (Reason: Pain) 3 Days Qty: 10 0RF naproxen 500 mg tablet 500 mg PO BID Qty: 10 0RF No Action montelukast 10 MG tablet 10 mg PO DAILY cetirizine 10 mg tablet 10 mg PO DAILY famotidine 20 mg tablet 20 mg PO BID PRN (Reason: stomach upset) bumetanide 1 mg tablet 1 mg PO DAILY cyclosporine 0.05 % dropperette 1 drp ophthalmic (eye) BID Patient Comments: HAS NOT BEEN TAKING, THINKS SHE IS ALLERGIC bupropion HCl 150 mg tablet extended release 24 hr 150 mg PO DAILY potassium chloride 20 mEq tablet,ER particles/crystals 20 meq PO DAILY ferrous sulfate [FeroSul] 325 mg (65 mg iron) tablet 325 mg PO DAILY fluticasone propionate 50 mcg/actuation spray,suspension 1 spray INTRANASAL BID Patient Comments: PT TAKES NEEDED sertraline 50 mg tablet 25 mg PO DAILY Patient Comments: PT STATES I TAKES THIS SOMETIMES Trelegy Ellipta 200-62.5-25 mcg blister with device 1 ea INHALATION DAILY albuterol sulfate 1 INHALER inhaler 1 - 2 puff INHALATION Q4H PRN (Reason: Wheezing) prednisone 20 mg Tablet 40 mg PO BREAKFAST 7 Days Qty: 14 0RF cefdinir 300 mg capsule 300 mg PO BID 7 Days Qty: 14 0RF azithromycin 500 mg tablet 500 mg PO DAILY 5 Days Qty: 5 0RF guaifenesin [Mucinex] 600 mg tablet extended release 12hr 1,200 mg PO BID Qty: 20 0RF Primary Care Provider: Louann Bermeo Referrals: Jono Luu MD [Med Staff - Active Staff] - 5-7 Days Knoble,Louann, CHILD STUDY TEAM DIRECTOR-C [Primary Care Provider] - Print Language: [place] Island[place] Disposition Disposition: Home, Self Care What to do if you have Problems For any increased pain, shortness of breath, bleeding, nausea or vomiting, chestpain, or any unexpected problems, contact your Primary Care Provider. Call [facility] ([phone]) or report to the closest Emergency Room. Call 911 if necessary. 11/13/241941 <Electronically signed by Randy Bailey MD> Cosigner Signature (if applicable): CC: CHILD STUDY TEAM DIRECTOR-Wilton Bermeo ~ Signed [facility] Work Phone: 1(440) 389-458307-03-2025 [facility] History of Present illness Narrative* Brisa Murry MD - 11/05/2024 10:10 AM EDT November 05, 2024 Standing PSG Orders signed in the last 90 days None Future PSG Orders signed in the last 90 days Ordered Auth. provider PAP TITRATION PSG (CPAP, BIPAP, ASV) [[id number]] 09/12/24 Elisa Jean MD Assoc. diagnoses: BOLA (obstructive sleep apnea) [G47.33], Preoperative testing [Z01.818], BMI 60.0-69.9, adult (HCC) [Z68.44] Q: Special Needs (e.g.behavior, non-ambulatory, >450 lbs)?: A: No Q: Prior PAP (CPAP or Bilevel PAP) Use?: A: Yes Q: Sleep History: A: Sleep apnea CONSULT TO SLEEP MEDICINE - ADULT [[id number]] 09/12/24 Elisa Jean MD Assoc. diagnoses: BOLA (obstructive sleep apnea) [G47.33], Preoperative testing [Z01.818], BMI 60.0-69.9, adult (HCC) [Z68.44] Q: Does consulting provider have [facility] Epic access?: A: Yes All Prior Sleep Studies (past 365 days) 09/12/2024 14:38 Sleep Studies PAP TITRATION PSG (CPAP, BIPAP, ASV) PAP TITRATION PSG (CPAP, BIPAP, ASV) Order Status: Ordered, Future Expires: 09/12/25 CONSULT TO SLEEP MEDICINE - ADULT CONSULT TO SLEEP MEDICINE - ADULT Order Status: Ordered, Future BMI Readings from Last 2 Encounters: 10/21/24 : 59.13 kg/m 09/25/24 : 59.44 kg/m PAST MEDICAL HISTORY Diagnosis Date Allergic rhinitis due to allergen 02/2018 [facility] testing. Current severe episode of major depressive disorder without psychotic features without prior episode ([facility]) 09/14/2018 DNS (deviated nasal septum) Ex-smoker 01/10/2018 Started at age 18 and quit at 26. Smoked one cigar a day. MARCUS (generalized anxiety disorder) 09/14/2018 GERD (gastroesophageal reflux disease) Immunodeficiency ([facility]) IVIG Iron deficiency anemia 06/17/2018 Morbid obesity ([facility]) 06/15/2018 Nasal polyposis BOLA on CPAP Pleural effusion 06/15/2018 Severe persistent asthma with acute exacerbation ([facility]) 02/12/2018 Vitiligo The medical record was reviewed to determine if the proposed sleep study conforms to the [facility] Practice Parameters for the Indications for Polysomnography and Related Procedures, or if the sleep studyis indicated for other reasons. Indications for study: BOLA suspected with comorbid medical or sleep disorders: Morbid obesity (BMI>40 kg/m2) Sleep study to be performed: Split Study-Polysomnogram with PAP titration Special instructions: Split night study if AHI > 15. Start with 5 cmH2O then titrate per protocol Target REM/supine sleep Add EtCO2 andTranscutaneous CO2 No HX of BOLA on file [facility] Staff Note: I have read the above protocol, edited as needed, and agree to the plan. Brisa Murry MD 4:09 PM, 11/05/2024 * Josie Dacosta - 11/04/2024 4:15 PM EDT November 04, 2024 An order has been received for PAP titration study from Elisa Spence A, , a B. [facility] Staff. Visit prep complete. Comments :No The sleep study is scheduled for 11/19. Insurance: Payor: [facility] MEDICARE / Plan: EDDI [facility] MEDICARE / Product Type: Medicare / Payer/Plan Subscr Sex Relation Sub. Ins. ID Effective Group Num 1. [facility] MEDICARE * TORRIE MARTINEZ 1990 Female Self [id number] 07/07/23 [place] [address] [facility] MEDICAID * TORRIE MARTINEZ 1990 Female Self [id number] 02/05/23 [place] [address] Josie Dacosta documented [facility] Telephone encounter Note* Telephone Encounter - Zach Mcgovern LPN - 10/30/2024 8:30 AM EDT Pharmacy requesting 90 day rx. [facility]06-25-2025 Miscellaneous Notes* Telephone Encounter - Zach Mcgovern LPN - 10/30/2024 8:30 AM EDT Pharmacy requesting 90 day rx. documented in this encounterProm[facility]06-[facility]25 Telephone encounter Note * Telephone Encounter - Margret Navarrete MA - 10/29/2024 11:14 AM EDT WeFi message sent to patient Margret Navarrete MA [address]24-2025 Miscellaneous Notes* Telephone Encounter - Margret Navarrete MA - 10/29/2024 11:14 AM EDT WeFi message sent to patient Margret Navarrete MA * Telephone Encounter - Louann Bermeo APRN.CNP - 10/29/2024 9:53 AM EDT Please let patient know her iron is still low but is improving. Continue supplementation. The rest of her labs are stable. documented in this encounterProm[facility]06-24-2025 Telephone encounter Note * Telephone Encounter - Louann Bermeo APRN.CNP - 10/29/2024 9:53 AM EDT Please let patient know her iron is still low but is improving. Continue supplementation. The rest of her labs are stable. [facility]06-23-2025 History of Present illness Narrative* Beverly Abarca RDMS - 10/28/2024 1:45 PM EDT Radiology Service Progress Note PATIENT NAME: Torrie Martinez DATE OF SERVICE: October 28, 2024 TIME: 2:27 PM PATIENT IDENTITY VERIFICATION COMPLETED USING TWO (2) IDENTIFIERS: Name and Date of confirmedby patient verbally. FALL SCREENING: Has the patient had 2 falls in the last year or 1 fall with injury or currently using an Ambulatory Assistive Device (Walker, Cane, Wheelchair, Crutches, etc.)? Yes, Patient High Riskfor Falls What interventions were put in place to prevent falls during this visit? Increased Observations by Caregivers PATIENT GENDER DATA: Assigned female at . status: : No status:NO. PATIENT RELEVANT IMPLANT DATA REVIEWED: Not Applicable PATIENT PRESENTS WITH AN IMPLANTABLE OR ATTACHED EXTRAS CASTING DIRECTOR: No RADIOLOGY DEPARTMENT: Ultrasound PERIPHERAL IV DATA: Not applicable SIGNED BY: Beverly Abarca RDMS October 28, 2024 2:27 PM documented in this encounterPromedica [facility]06-23-2025 Note[facility]06-[facility] Instructions* Patient Instructions* Osman Bautista, WILLY - 10/21/2024 11:15 AM EDT Nutrition Action Plan 1. Continue to refer to Nutritional Guidelines Section of Your Guide to Surgery by next session http s://my.[facility].org/-/scassets/files/org/bariatric/guides/bmiguidebook-ju ls2113.ashx?la=en 2. Do not skip meals. 3. Use protein shake 1x per day to replace any skipped meals or for breakfast 4. Use the Healthy Plate Method of portion control for lunch and dinner 4 oz lean meat (fish, chicken, pork tenderloin, turkey, seafood, eggs/cheese) 1/2 plate non starchy vegetables (salad, greens, cabbage, spinach, brussels sprouts, broccoli, carrots, celery, peppers, green beans, cauliflower) 1 cup starch/starchy vegetables (corn, peas, beans, winter squash, sweet potato, brown rice, whole grain pasta, whole grain bread products, quinoa) 5. Physical activity: try these exercises 2-3 times a week for 15 minutes to start. Increase time and intensity as able [employer] workout database: https://gBox/ Chair or standing Team Body Project https://www.youNimbleube.com/watch?v=m7mcPU-YyIy Chair exercise Loop [employer] https://www.[employer]/resource/videos-detail.asp?video=38 Amanda Bonner Easy walk in place 15 min https://www.youtube.com/watch?v=xfvQ86akyQU Body Project 30 min https://youtu.be/J-GmhU1VQ-3 Amanda Bonner Higher intensity walk 30 min https://www.youNimbleube.com/watch?v=bgFR7WRb3YF 6. Drink 64 ounces per day water. Fluids should follow these guidelines: No carbonation, no caffeine, no calories, no alcohol. 7. Practice these mindful eating techniques: Eat slowly by taking small bites and chewing thoroughly Eat protein first, vegetables second, and starches last Separate fluids from foods for 30 minutes before and after each meal/snack 8. Look into shakes for 2 week preop diet: 5 1/2 cartons Light Start [place] Instant Breakfast OR packets mixed with low fat milk OR 4 1/2 bottles High Protein Slim Fast OR 4 1/2 bottles Boost Glucose Control OR 5 cartons Original (15 gm protein) Atkins shake OR 4 1/2 Bottles Original OWYN shake 9. research these vitamin options for use 3 weeks post operatively: - Bariatric Fusion: 4 Complete Chewable Multivitamins per day (2 in the AM, 2 in the PM) www.bariatricNSH Holdco.[place] - Procare Health: 1 Bariatric Multivitamin and Calcium Citrate (total of 1200- 1500 mg/day) * take calcium citrate separately from Multivitamin with iron at least 2 hours apart and 4 hours apart from additional calcium www.frooly - Bariatric Choice: 4 Complete Multivitamins (chewables) per day Www.Alliqua.[place] - Bariatric Advantage: 2 Multivitamins and 3 Calcium Citrate Chewables per day * take calcium citrate separately from Multivitamin with iron at least 2 hours apart and 4 hours apart from additional calcium Www.bariatricSoundvamp.[place] OR IF DS: Research post-op vitamins for LAKESHA/DS procedure: - Bariatric Fusion ADEK Complete Capsule (3x per day) AND 2996-6210 mg calcium citrate -https://www.bariatricfusion.Marakana/products/wrgndsvcx-tftrmohuwlgd-zqat-adek-vitam ut-fnet-amqf OR - Procare health once daily LAKESHA/DS MVI AND 3768-5564 mg calcium citrate -https://CellScope.Marakana/collections/bariatric-multivitamin/products/multivitamin -oq-zpzg-aifxlxf Pre-op goal weight: 413 pounds Protein needs: 100 gm per day Protein needs IF DS: 125-167 gm per day Follow Up on 11/26 at 10:15 AM documented in this encounterPromedica [facility]06-16-2025 History of Present illness Narrative* Osman Bautista RD - 10/21/2024 10:15 AM EDT [facility] Nutrition Therapy: Virtual Consult - Initial Assessment I have communicated my name and active licensure. The patient s identity and physical location wereverified at the time of this visit. Either the patient or their legal personal banking representative has been informed of the risks and benefits of -- and alternatives to -- treatment through a remote evaluation andconsents to proceed with the evaluation remotely. Nutrition Diagnosis: Overweight/obesity, related to, decreased energy needs, food/nutrition - related knowledge deficit, and physical inactivity, as evidenced by BMI above normative standard for age and gender. RECOMMENDED MALNUTRITION DIAGNOSIS: NO MALNUTRITION IDENTIFIED NUTRITION CARE PLAN Nutrition Intervention 10/21/2024: 1. Continue to refer to Nutritional Guidelines Section of Your Guide to Surgery by next session http s://my.[facility].org/-/scassets/files/org/bariatric/guides/bmiguidebook-ju ho7260.ashx?la=en 2. Do not skip meals. 3. Use protein shake 1x per day to replace any skipped meals or for breakfast 4. Use the Healthy Plate Method of portion control for lunch and dinner 4 oz lean meat (fish, chicken, pork tenderloin, turkey, seafood, eggs/cheese) 1/2 plate non starchy vegetables (salad, greens, cabbage, spinach, brussels sprouts, broccoli, carrots, celery, peppers, green beans, cauliflower) 1 cup starch/starchy vegetables (corn, peas, beans, winter squash, sweet potato, brown rice, whole grain pasta, whole grain bread products, quinoa) 5. Physical activity: try these exercises 2-3 times a week for 15 minutes to start. Increase time and intensity as able [employer] workout database: https://gBox/ Chair or standing Team Body Project https://www.youNimbleube.com/watch?v=n8mpKX-SlOe Chair exercise Loop Trolleypeople https://www.Milk A Deal.com/resource/videos-detail.asp?video=38 Amanda Bonner Easy walk in place 15 min https://www.youNimbleube.com/watch?v=nekH02cdfMH Body Project 30 min https://youNimbleu.be/J-[email or web address]-[email or web address] Amanda Bonner Higher intensity walk 30 min https://www.youtube.com/watch?v=fxOK9MVb1MN 6. Drink 64 ounces per day water. Fluids should follow these guidelines: No carbonation, no caffeine, no calories, no alcohol. 7. Practice these mindful eating techniques: Eat slowly by taking small bites and chewing thoroughly Eat protein first, vegetables second, and starches last Separate fluids from foods for 30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 respiratory disease *+asthma; no cough/sob-she does cough-maybe copd and sometimes sob with moving GI: Denies any known h/o stomach, liver, pancreas, intestinal or colonic disease, Disorders or conditions. No odyno/dysphagia/abdominal pain/N/V/diarrhea/constipation/bloody stools or other GI issues *no liver/colon or intestine : B)women: LMP?//rash/discharge/pelvic pain/menstrual problems C) either: No known h/o any chronic kidney; urinary or bladder disease, disorders or conditions; Denies any renal stones/dysuria/hematuria/urgency/polyuria/other issues/concerns *no CKD or bladder issues Heme/onc: No known h/o any bleeding or clotting disorder, PE/DVT/anemia, or other blood disorder orcondition No h/o cancer/bleeding or clotting problems/unusual bruising or other hematologic/oncologic issues *no cancer or PE/DVT; anemia-on iron supplement Neuro: No new or unusual MEDEIROS/weakness/dizziness. No paresthesias/temperature sensation changes or disturbances/weakness/h/o CVA or seizures or other neurologic problems *no h/o CVA/sz or other neuro issue Endo: No known thryoid or DM or other endocrine or metabolic disease, disorders or conditions *No DM, thyroid or other endo issues Musk/Rheum: Denies any h/o disabling or chronic back or other pain; no h/o gout, SLE, RA or other types of arthritis. No new/unusual arthralgias, bone, muscle or joint problems, h/o autoimmune disease, gout or arthritis Autoimmune/Allergy: Skin: No rashes/pruritis/color changes. No other skin problems or issues. Psych: No h/o anxiety/depression or other psychiatric problems Other providers: -PCP -Pulmonary -not seeing Cardiology ASSESSMENT: Reviewed principles of energy metabolism, caloric intake and expenditure, and rationale for treatment program. Also reinforced need for reduced calorie, low fat diet and increased physical Activity. 1)Morbid obesity May be considered at acceptable risk to proceed with bariatric surgery if the following conditions met: baseline ECG normal, or stable/unchanged compared to previous examinations. No further noninvasive cardiac testing needed IF the patient has no intermediate clinical risk factors, (IDDM, renal failure, CHF, CAD, and CVA) and has a normal or adequate functional capacity, and depending on the resultsof tests, consults (and prior records/test results if requested) -has had recent (07/30) iron, lipid, A1c, cbc, cmp; check remaining presurgical labs, CXR, EKG and abd us -always wears oxygen 24 hours; currently 6L (usually wears 5); her oxygen is low bc her lungs retain fluid and has small airways -her son's brother Mom had bariatric surgery, so she is somewhat familiar with bariatric surgery requirements -has not taken Metformin or Topamax-she will look into these and see what she thinks 2)BOLA- -check updated sleep study and refer to Sleep medicine for evaluation and management Elisa Jean MD I spent a total of 45 minutes on the date of the service which included preparing to see the patient, [id number] patient care, obtaining and/or reviewing separately obtained history, counseling andeducating the patient/family/caregiver, ordering medications, tests, or procedures, and care coordination (not separately reported). [facility] Consult note [facility] Medical Records Department [address] [place] [address] Counseling Note - Pharmacy 09/06/24 4332 MR#: [id number] Acct: [id number] Name: TORRIE MARTINEZ Rep #:[id number] : 1990 34 From: Nate Mc PCP: OMAR Jones Status:ADM IN Y [facility] [place] [facility] Pharmacy Service has performed discharge medication reconciliation for this patient. The patient's discharge medication list was reviewed for discrepancies and discrepancies were resolved. Medications at Discharge Home Medications montelukast 10 mg tablet 10 mg PO DAILY allergies 03/13/18 albuterol sulfate 90 mcg/actuation aerosol inhaler 1 - 2 puff inhalation Q4H PRNWheezing 09/03/24 bumetanide 1 mg tablet 1 mg PO DAILY edema 09/03/24 bupropion HCl 150 mg 24 hr tablet, extended release 150 mg PO DAILY mood 09/03/24 cetirizine 10 mg tablet 10 mg PO DAILY allergies 09/03/24 cyclosporine 0.05 % eye drops in a dropperette 1 drp ophthalmic (eye) BID 09/03/24 famotidine 20 mg tablet 20 mg PO BID PRN stomach upset 09/03/24 ferrous sulfate 325 mg (65 mg iron) tablet (FeroSul) 325 mg PO DAILY iron supplement 09/03/24 fluticasone fur. 200 mcg-umeclid 62.5 mcg-vilant 25 mcg inhalat.powder (Trelegy Ellipta) 1 ea inhalation DAILY breathing 09/03/24 fluticasone propionate 50 mcg/actuation nasal spray,suspension 1 spray intranasal BID allergy symptoms 09/03/24 potassium chloride 20 mEq tablet,extended release(part/cryst) 20 meq PO DAILY supplement 09/03/24 sertraline 50 mg tablet 25 mg PO DAILY mood 09/03/24 azithromycin 500 mg tablet 500 mg PO DAILY 5 days #5 tabs 09/06/24 cefdinir 300 mg capsule 300 mg PO BID 7 days #14 caps 09/06/24 guaifenesin 600 mg tablet, extended release 12 hr (Mucinex) 1,200 mg (2 x 600 mg) PO BID #20 tabs 09/06/24 prednisone 20 mg tablet 40 mg (2 x 20 mg) PO BREAKFAST 7 days #14 tabs 09/06/24 09/06/24 1433 r> Date _ Nate Sesayigner Signature (if applicable): Date CC: ~ Signed [facility]05-02-2025 Consult note Author Nate Mc [facility] Note Date/Time September 06, 2024 5:15pm [facility] Medical Records Department [address] [place] [address] Counseling Note - Pharmacy 09/06/24 1433 MR#: [id number] Acct: [id number] Name: TORRIE MARTINEZ Rep #:[id number] : 1990 34 From: Nate Mc PCP: OMAR Jones Status:ADM IN Y Location: [place] [id number] [place] Med Reconciliation Pharmacy Service has performed discharge medication reconciliation for this patient. The patient's discharge medication list was reviewed for discrepancies and discrepancies were resolved. Medications at Discharge Home Medications montelukast 10 mg tablet 10 mg PO DAILY allergies 03/13/18 albuterol sulfate 90 mcg/actuation aerosol inhaler 1 - 2 puff inhalation Q4H PRNWheezing 09/03/24 bumetanide 1 mg tablet 1 mg PO DAILY edema 09/03/24 bupropion HCl 150 mg 24 hr tablet, extended release 150 mg PO DAILY mood 09/03/24 cetirizine 10 mg tablet 10 mg PO DAILY allergies 09/03/24 cyclosporine 0.05 % eye drops in a dropperette 1 drp ophthalmic (eye) BID 09/03/24 famotidine 20 mg tablet 20 mg PO BID PRN stomach upset 09/03/24 ferrous sulfate 325 mg (65 mg iron) tablet (FeroSul) 325 mg PO DAILY iron supplement 09/03/24 fluticasone fur. 200 mcg-umeclid 62.5 mcg-vilant 25 mcg inhalat.powder (Trelegy Ellipta) 1 ea inhalation DAILY breathing 09/03/24 fluticasone propionate 50 mcg/actuation nasal spray,suspension 1 spray intranasal BID allergy symptoms 09/03/24 potassium chloride 20 mEq tablet,extended release(part/cryst) 20 meq PO DAILY supplement 09/03/24 sertraline 50 mg tablet 25 mg PO DAILY mood 09/03/24 azithromycin 500 mg tablet 500 mg PO DAILY 5 days #5 tabs 09/06/24 cefdinir 300 mg capsule 300 mg PO BID 7 days #14 caps 09/06/24 guaifenesin 600 mg tablet, extended release 12 hr (Mucinex) 1,200 mg (2 x 600 mg) PO BID #20 tabs 09/06/24 prednisone 20 mg tablet 40 mg (2 x 20 mg) PO BREAKFAST 7 days #14 tabs 09/06/24 09/06/24 1433 <Electronically signed by Nate rivas> Date _ Nate Sesayigner Signature (if applicable): Date CC: ~ Signed [facility] Work Phone: 1(127) 609-354705-02-2025 Discharge summary Author Evans Carter [facility] Note Date/Time September 06, 2024 9:28[facility] Medical Records Department [address] [place] [address] Discharge Summary 09/06/24 0923 MR#: [id number] Acct: [id number] Name: TORRIE MARTINEZ Rep #:[id number] : 1990 34 From: Evans Carter MD PCP: OMAR Jones Status:ADM IN Location: [place] [address] Providers Date of Admission: 09/03/24 Primary Care Physician: OMAR Jones Consultations 09/03/24 19:11 Consult: Senior Maintenance Machinist / Pulmonary Medicine Routine Consulting Provider: Intensivists/Pulmonary Med Reason for Consult: Resp failure EMERGENT Consult: No MD Notified: Yes Date Notified: 09/04/24 Time Notified: 04:59 Method of Notification: Text Reason For Visit: RESP FAILURE WITH PNEUMONIA AND ASTHMA Diagnosis Discharge Diagnosis (1) Right upper lobe pneumonia: Status: Acute Code(s): J18.9 - Pneumonia, unspecified organism Plan Patient is a 34-year-old lady with past medical history significant for chronic congestive heart failure, morbid obesity with BMI of 59.6 who presented with shortness of breath and hypoxia. Imaging studies obtained demonstrated right upper lobe pneumonia. An assessment of acute on chronic hypoxic and hypercapnicrespiratory failure made placed on BiPAP admitted to the intensive care unit forfurther management 1. Acute on chronic hypoxic and hypercapnic respiratory failure ? Due to combination of pneumonia, asthma exacerbation as well as suspected CHF exacerbation. Patient was placed on noninvasive ventilation with BiPAP with oxygen titrated to keep saturation greater than 90 ? 09/05/2024 Patient was weaned off noninvasive ventilation BiPAP and subsequentlytransferred to the progressive care unit. 2. Pneumonia - Suspected to be secondary to streptococcal pneumonia, Blood and sputum cultures sent. Patient placed on Rocephin and Zithromax and placed on oxygen titrated to keep Pulse Ox greater than 90. Patient presented with acute hypoxicand hypercapnic respiratory failure patient was placed on noninvasive ventilation BiPAP as discussed above ? 09/05/2024; patient WBC count remains elevated patient is on Solu-Medrol discontinued started patient on prednisone 3. Asthma with acute exacerbation ? In addition to above management patient was placed on systemic steroids and bronchodilator treatments 4. Class III obesity with BMI of 59.6 ? Complicating care weight loss advised 5. Acute on chronic congestive heart failure with preserved ejection for ? Echo obtained on 01/16/2018 demonstrated 60%. Patient placed on diuretic therapy in addition to strict input and output, fluid restriction Daily I's and O's and repeat echo ordered for EF assessment ? 09/06/2019 five 2D echo obtained 09/06/2019 did show Normal LV size. The left ventricular ejection fraction is 65 %. Mild concentric left ventricular hypertrophy. 6. Depression with anxiety ? Patient is on sertraline continue 7. Allergic rhinitis ? Patient is on montelukast did continue 8. Anemia ? Secondary to chronic disorder Red cell indices demonstrated microcytic anemia with MCV of 75.8. Monitoring H&H and transfuse if patient becomes symptomatic or hemoglobin falls below 7. Also ordered iron studies 9. Hyperglycemia ? Suspected to be secondary to patient receiving systemic steroid however ordered hemoglobin A1c 10. DVT prophylaxis ? On enoxaparin Medications at Discharge Home Medications montelukast 10 mg tablet 10 mg PO DAILY 03/13/18 albuterol sulfate 90 mcg/actuation aerosol inhaler 1 - 2 puff inhalation Q4H PRNWheezing 09/03/24 bumetanide 1 mg tablet 1 mg PO DAILY 09/03/24 bupropion HCl 150 mg 24 hr tablet, extended release 150 mg PO DAILY 09/03/24 cetirizine 10 mg tablet 10 mg PO DAILY 09/03/24 cyclosporine 0.05 % eye drops in a dropperette 1 drp ophthalmic (eye) BID 09/03/24 famotidine 20 mg tablet 20 mg PO BID PRN stomach upset 09/03/24 ferrous sulfate 325 mg (65 mg iron) tablet (FeroSul) 325 mg PO DAILY 09/03/24 fluticasone fur. 200 mcg-umeclid 62.5 mcg-vilant 25 mcg inhalat.powder (Trelegy Ellipta) 1 ea inhalation DAILY 09/03/24 fluticasone propionate 50 mcg/actuation nasal spray,suspension 1 spray intranasal BID allergy symptoms 09/03/24 potassium chloride 20 mEq tablet,extended release(part/cryst) 20 meq PO DAILY 09/03/24 sertraline 50 mg tablet 25 mg PO DAILY 09/03/24 azithromycin 500 mg tablet 500 mg PO DAILY 5 days #5 tabs 09/06/24 cefdinir 300 mg capsule 300 mg PO BID 7 days #14 caps 09/06/24 guaifenesin 600 mg tablet, extended release 12 hr (Mucinex) 1,200 mg (2 x 600 mg) PO BID #20 tabs 09/06/24 prednisone 20 mg tablet 40 mg (2 x 20 mg) PO BREAKFAST 7 days #14 tabs 09/06/24 Hospital Course Summary of Care Provided Minutes Spent on Discharge: 32 Physical Exam Narrative GENERAL: Cooperative HEENT: Atraumatic; normocephalic EYES; Anicteric, Normal Conjunctiva NECK; supple, normal thyroid, RESPIRATORY: Diminished to auscultation CARDIOVASCULAR: Regular S1 S2, GI: soft, normoactive bowel sounds, : No Renal angle tenderness; EXTREMITIES: No edema, no clubbing, MUSCULOSKELETAL: no muscle wasting NEURO: Awake; no lateralizing signs. SKIN: Extensive vitiligo PSYCH; Flat affect Weight / BMI Weight Weight: 200.9 kg Body Mass Index (BMI) 60.0 ABG / Lab / Microbiology Data 09/06/24 04:08 09/06/24 04:08 Laboratory: Laboratory Results - last 24 hr 09/05/24 06:32: Hemoglobin A1c 6.0 H 09/06/24 04:08: WBC 11.3 H, RBC 5.13, Hgb 10.4 L, Hct 39.2, MCV 76.4 L, MCH 20.3L, MCHC 26.5 L, RDW Std Deviation 49.1 H, RDW Coeff of Micha 18.0 H, Plt Count 249, MPV 9.9, Immature Gran % (Auto) 1.300 H, Neut % (Auto) 72.0 H, Lymph % (Auto) 18.9 L, [place] % (Auto) 7.5, Eos % (Auto) 0.1, Baso % (Auto) 0.2, Absolute Neuts (auto) 8.1 H, Absolute Lymphs (auto) 2.13, Nucleated RBC % 0.2, Sodium 142, Potassium 4.2, Chloride 98, Carbon Dioxide 34.5 H, Anion Gap 10, BUN 13, Creatinine 0.51 L, Estim Creat Clear Calc 310.55 H, Est GFR (MDRD) Non-Af 127, BUN/Creatinine Ratio 24.7 H, Glucose 128 H, Calcium 8.5 Microbiology: Microbiology 09/05/24 09:35 Sputum, Expectorated/Coughed Gram Stain - Final 09/03/24 14:29 Blood Culture (Wb) - Anticubital Right Blood Culture - Preliminary No growth in 48 hours. 09/03/24 14:25 Blood Culture (Wb) - Anticubital Left Blood Culture - Preliminary No growth in 48 hours. 09/04/24 10:48 Mucosa - Nasopharyngeal Respiratory Panel (PCR) - Final 09/03/24 16:02 Mucosa - Nose SARS-CoV-2, Influenza & RSV (PCR) - Final D/C Instructions Discharge Diet: No restrictions Discharge Activity: Return to Normal Activity Call your doctor if you observe: Fever of 101 or Higher, Shortness of breath, Fainting spells and Chest pain DC O2, CPAP, BIPAP Needs Home O2 Discharge instructions: Yes Type of respiratory needs?: Oxygen Oxygen frequency: Continuous Continuous oxygen liters per minute: 4 DC home with Oxygen: Yes Home O2 MD Review: I have reviewed the oxygen testing, and the patient qualifies for home oxygen equipment and portability. The patient is mobile in the home and the community. Meaningful Use Info Meaningful Use Meaningful Use Diagnoses (Choose all that apply): None applicable Ischemic Stroke Statin Dosing Therapy Reference: STATIN DOSE THERAPY REFERENCE: * Patients > 75 years receive moderate or high dose statin therapy. * Patients 75 years or YOUNGER should receive HIGH intensity statin dose unless contraindicated. You will be required to document reason for non-treatment if statin daily dose does not meet guidelines. HIGH DOSE STATIN THERAPY DAILY Atorvastatin > than or = to 40 mg Rosuvastatin > than or = to 20 mg Amlodipine + Atorvastatin > than or = to 2.5/40 mg Ezetimibe + Simvastatin 10/80 mg Simvastatin 80mg Discharge Plan Admission Admit Date/Time: 09/03/24 17:36 Attending Provider: Evans Carter Primary Care Provider: Louann Bermeo Consulting Providers: Jesse Lobo Discharge Orders/Prescriptions Prescriptions: New prednisone 20 mg Tablet 40 mg PO BREAKFAST 7 Days Qty: 14 0RF cefdinir 300 mg capsule 300 mg PO BID 7 Days Qty: 14 0RF azithromycin 500 mg tablet 500 mg PO DAILY 5 Days Qty: 5 0RF guaifenesin [Mucinex] 600 mg tablet extended release 12hr 1,200 mg PO BID Qty: 20 0RF Continued montelukast 10 MG tablet 10 mg PO DAILY cetirizine 10 mg tablet 10 mg PO DAILY famotidine 20 mg tablet 20 mg PO BID PRN (Reason: stomach upset) bumetanide 1 mg tablet 1 mg PO DAILY cyclosporine 0.05 % dropperette 1 drp ophthalmic (eye) BID Patient Comments: HAS NOT BEEN TAKING, THINKS SHE IS ALLERGIC bupropion HCl 150 mg tablet extended release 24 hr 150 mg PO DAILY potassium chloride 20 mEq tablet,ER particles/crystals 20 meq PO DAILY ferrous sulfate [FeroSul] 325 mg (65 mg iron) tablet 325 mg PO DAILY fluticasone propionate 50 mcg/actuation spray,suspension 1 spray INTRANASAL BID Patient Comments: PT TAKES NEEDED sertraline 50 mg tablet 25 mg PO DAILY Patient Comments: PT STATES I TAKES THIS SOMETIMES Trelegy Ellipta 200-62.5-25 mcg blister with device 1 ea INHALATION DAILY albuterol sulfate 1 INHALER inhaler 1 - 2 puff INHALATION Q4H PRN (Reason: Wheezing) Referrals / Follow Up: Louann Bermeo NP-C [Primary Care Provider] - Within 2 Weeks Disposition Disposition (needs filled in before D/C Order can be placed): Home, Self Care Charges/Coding Visit Charges Inpatient E&M: 48622 Disch Hosp >30min 09/06/2428 <Electronically signed by Evans Carter MD> Cosigner Signature (if applicable): CC: OMAR Bermeo; Dr. Evans Carter MD~ Signed [facility] Work Phone: 1(831) 465-248905-02-2025 Discharge summary [facility] Medical Records Department [address] [place] [address] Discharge Summary 09/06/24922 MR#: [id number] Acct: [id number] Name: TORRIE MARTINEZ Rep #:[id number] : 1990 34 From: Evans Carter MD PCP: OMAR Jones Status:ADM IN Location: [place] [address]- Providers Date of Admission: 09/03/24 Primary Care Physician: OMAR Jones Consultations 09/03/24 19:11 Consult: Senior Maintenance Machinist / Pulmonary Medicine Routine Consulting Provider: Intensivists/Pulmonary Med Reason for Consult: Resp failure EMERGENT Consult: No MD Notified: Yes Date Notified: 09/04/24 Time Notified: 04:59 Method of Notification: Text Reason For Visit: RESP FAILURE WITH PNEUMONIA AND ASTHMA Diagnosis Discharge Diagnosis (1) Right upper lobe pneumonia: Status: Acute Code(s): J18.9 - Pneumonia, unspecified organism Plan Patient is a 34-year-old lady with past medical history significant for chronic congestive heart failure, morbid obesity with BMI of 59.6 who presented with shortness of breath and hypoxia. Imaging studies obtained demonstrated right upper lobe pneumonia. An assessment of acute on chronic hypoxic and hypercapnicrespiratory failure made placed on BiPAP admitted to the intensive care unit forfurther management 1. Acute on chronic hypoxic and hypercapnic respiratory failure ? Due to combination of pneumonia, asthma exacerbation as well as suspected CHF exacerbation. Patient was placed on noninvasive ventilation with BiPAP with oxygen titrated to keep saturation greater than 90 ? 09/05/2024 Patient was weaned off noninvasive ventilation BiPAP and subsequentlytransferred to the progressive care unit. 2. Pneumonia - Suspected to be secondary to streptococcal pneumonia, Blood and sputum cultures sent. Patient placed on Rocephin and Zithromax and placed on oxygen titrated to keep Pulse Ox greater than 90. Patient presented with acute hypoxicand hypercapnic respiratory failure patient was placed on noninvasive v entilation BiPAP as discussed above ? 09/05/2024; patient WBC count remains elevated patient is on Solu-Medrol discontinued started patient on prednisone 3. Asthma with acute exacerbation ? In addition to above management patient was placed on systemic steroids and bronchodilator treatments 4. Class III obesity with BMI of 59.6 ? Complicating care weight loss advised 5. Acute on chronic congestive heart failure with preserved ejection for ? Echo obtained on 01/16/2018 demonstrated 60%. Patient placed on diuretic therapy in addition to strict input and output, fluid restriction Daily I's and O's and repeat echo ordered for EF assessment ? 09/06/2019 five 2D echo obtained 09/06/2019 did show Normal LV size. The left ventricular ejection fraction is 65 %. Mild concentric left ventricular hypertrophy. 6. Depression with anxiety ? Patient is on sertraline continue 7. Allergic rhinitis ? Patient is on montelukast did continue 8. Anemia ? Secondary to chronic disorder Red cell indices demonstrated microcytic anemia with MCV of 75.8. Monitoring H&H and transfuse if patient becomes symptomatic or hemoglobin falls below 7. Also ordered iron studies 9. Hyperglycemia ? Suspected to be secondary to patient receiving systemic steroid however ordered hemoglobin A1c 10. DVT prophylaxis ? On enoxaparin Medications at Discharge Home Medications montelukast 10 mg tablet 10 mg PO DAILY 03/13/18 albuterol sulfate 90 mcg/actuation aerosol inhaler 1 - 2 puff inhalation Q4H PRNWheezing 09/03/24 bumetanide 1 mg tablet 1 mg PO DAILY 09/03/24 bupropion HCl 150 mg 24 hr tablet, extended release 150 mg PO DAILY 09/03/24 cetirizine 10 mg tablet 10 mg PO DAILY 09/03/24 cyclosporine 0.05 % eye drops in a dropperette 1 drp ophthalmic (eye) BID 09/03/24 famotidine 20 mg tablet 20 mg PO BID PRN stomach upset 09/03/24 ferrous sulfate 325 mg (65 mg iron) tablet (FeroSul) 325 mg PO DAILY 09/03/24 fluticasone fur. 200 mcg-umeclid 62.5 mcg-vilant 25 mcg inhalat.powder (Trelegy Ellipta) 1 ea inhalation DAILY 09/03/24 fluticasone propionate 50 mcg/actuation nasal spray,suspension 1 spray intranasal BID allergy symptoms 09/03/24 potassium chloride 20 mEq tablet,extended release(part/cryst) 20 meq PO DAILY 09/03/24 sertraline 50 mg tablet 25 mg PO DAILY 09/03/24 azithromycin 500 mg tablet 500 mg PO DAILY 5 days #5 tabs 09/06/24 cefdinir 300 mg capsule 300 mg PO BID 7 days #14 caps 09/06/24 guaifenesin 600 mg tablet, extended release 12 hr (Mucinex) 1,200 mg (2 x 600 mg) PO BID #20 tabs 09/06/24 prednisone 20 mg tablet 40 mg (2 x 20 mg) PO BREAKFAST 7 days #14 tabs 09/06/24 Hospital Course Summary of Care Provided Minutes Spent on Discharge: 32 Physical Exam Narrative GENERAL: Cooperative HEENT: Atraumatic; normocephalic EYES; Anicteric, Normal Conjunctiva NECK; supple, normal thyroid, RESPIRATORY: Diminished to auscultation CARDIOVASCULAR: Regular S1 S2, GI: soft, normoactive bowel sounds, : No Renal angle tenderness; EXTREMITIES: No edema, no clubbing, MUSCULOSKELETAL: no muscle wasting NEURO: Awake; no lateralizing signs. SKIN: Extensive vitiligo PSYCH; Flat affect Weight / BMI Weight Weight: 200.9 kg Body Mass Index (BMI) 60.0 ABG / Lab / Microbiology Data 09/06/24 04:08 09/06/24 04:08 Laboratory: Laboratory Results - last 24 hr 09/05/24 06:32: Hemoglobin A1c 6.0 H 09/06/24 04:08: WBC 11.3 H, RBC 5.13, Hgb 10.4 L, Hct 39.2, MCV 76.4 L, MCH 20.3L, MCHC 26.5 L, RDWStd Deviation 49.1 H, RDW Coeff of Micha 18.0 H, Plt Count 249, MPV 9.9, Immature Gran % (Auto) 1.300H, Neut % (Auto) 72.0 H, Lymph % (Auto) 18.9 L, [place] % (Auto) 7.5, Eos % (Auto) 0.1, Baso % (Auto) 0.2, Absolute Neuts (auto) 8.1 H, Absolute Lymphs (auto) 2.13, Nucleated RBC % 0.2, Sodium 142, Potassium 4.2, Chloride 98, Carbon Dioxide 34.5 H, Anion Gap 10, BUN 13, Creatinine 0.51 L, Estim Creat Clear Calc 310.55 H, Est GFR (MDRD) Non-Af 127, BUN/Creatinine Ratio 24.7 H, Glucose 128 H, Calcium 8.5 Microbiology: Microbiology 09/05/24 09:35 Sputum, Expectorated/Coughed Gram Stain - Final 09/03/24 14:29 Blood Culture (Wb) - Anticubital Right Blood Culture - Preliminary No growth in 48 hours. 09/03/24 14:25 Blood Culture (Wb) - Anticubital Left Blood Culture - Preliminary No growth in 48 hours. 09/04/24 10:48 Mucosa - Nasopharyngeal Respiratory Panel (PCR) - Final 09/03/24 16:02 Mucosa - Nose SARS-CoV-2, Influenza & RSV (PCR) - Final D/C Instructions Discharge Diet: No restrictions Discharge Activity: Return to Normal Activity Call your doctor if you observe: Fever of 101 or Higher, Shortness of breath, Fainting spells and Chest pain DC O2, CPAP, BIPAP Needs Home O2 Discharge instructions: Yes Type of respiratory needs?: Oxygen Oxygen frequency: ContinuousContinuous oxygen liters per minute: 4 DC home with Oxygen: Yes Home O2 MD Review: I have reviewed the oxygen testing, and the patient qualifies for home oxygen equipment and portability. The patient is mobile in the home and the community. Meaningful Use Info Meaningful Use Meaningful Use Diagnoses (Choose all that apply): None applicable Ischemic Stroke Statin Dosing Therapy Reference: STATIN DOSE THERAPY REFERENCE: * Patients > 75 years receive moderate or high dose statin therapy. * Patients 75 years or YOUNGER should receive HIGH intensity statin dose unless contraindicated. You will be required to document reason for non-treatment if statin daily dose does not meet guidelines. HIGH DOSE STATIN THERAPY DAILY Atorvastatin > than or = to 40 mg Rosuvastatin > than or = to 20 mg Amlodipine + Atorvastatin > than or = to 2.5/40 mg Ezetimibe + Simvastatin 10/80 mg Simvastatin 80mg Discharge Plan Admission Admit Date/Time: 09/03/24 17:36 Attending Provider: Evans Carter Primary Care Provider: Louann Bermeo Consulting Providers: Jesse Lobo Discharge Orders/Prescriptions Prescriptions: New prednisone 20 mg Tablet 40 mg PO BREAKFAST 7 Days Qty: 14 0RF cefdinir 300 mg capsule 300 mg PO BID 7 Days Qty: 14 0RF azithromycin 500 mg tablet 500 mg PO DAILY 5 Days Qty: 5 0RF guaifenesin [Mucinex] 600 mg tablet extended release 12hr 1,200 mg PO BID Qty: 20 0RF Continued montelukast 10 MG tablet 10 mg PO DAILY cetirizine 10 mg tablet 10 mg PO DAILY famotidine 20 mg tablet 20 mg PO BID PRN (Reason: stomach upset) bumetanide 1 mg tablet 1 mg PO DAILY cyclosporine 0.05 % dropperette 1 drp ophthalmic (eye) BID Patient Comments: HAS NOT BEEN TAKING, THINKS SHE IS ALLERGIC bupropion HCl 150 mg tablet extended release 24 hr 150 mg PO DAILY potassium chloride 20 mEq tablet,ER particles/crystals 20 meq PO DAILY ferrous sulfate [FeroSul] 325 mg (65 mg iron) tablet 325 mg PO DAILY fluticasone propionate 50 mcg/actuation spray,suspension 1 spray INTRANASAL BID Patient Comments: PT TAKES NEEDED sertraline 50 mg tablet 25 mg PO DAILY Patient Comments: PT STATES I TAKES THIS SOMETIMES Trelegy Ellipta 200-62.5-25 mcg blister with device 1 ea INHALATION DAILY albuterol sulfate 1 INHALER inhaler 1 - 2 puff INHALATION Q4H PRN (Reason: Wheezing) Referrals / Follow Up: Louann Bermeo, CHILD STUDY TEAM DIRECTOR-C [Primary Care Provider] - Within 2 Weeks Disposition Disposition (needs filled in before D/C Order can be placed): Home, Self Care Charges/Coding Visit Charges Inpatient E&M: 48516 Disch Hosp >30min 09/06/24 0928 Cosigner Signature (if applicable): CC: OMAR Bermeo; Dr. Evans Carter MD~ Signed [facility]05-02-2025 [facility] Medical Records Department [address] [place] [address] Discharge Summary 09/06/24922 MR#: [id number] Acct: [id number] Name: TORRIE MARTINEZ Rep #: [id number] : 1990 34 From: Evans Carter MD PCP: OMAR Jones Status:ADM IN Location: [facility] [id number] Providers Date of Admission: 09/03/24 Primary Care Physician: OMAR Jones Consultations 09/03/24 19:11 Consult: Senior Maintenance Machinist / Pulmonary Medicine Routine Consulting Provider: Intensivists/Pulmonary Med Reason for Consult: Resp failure EMERGENT Consult: No MD Notified: Yes Date Notified: 09/04/24 Time Notified: 04:59 Method of Notification: Text Reason For Visit: RESP FAILURE WITH PNEUMONIA AND ASTHMA Diagnosis Discharge Diagnosis (1) Right upper lobe pneumonia: Status: Acute Code(s): J18.9 - Pneumonia, unspecified organism Plan Patient is a 34-year-old lady with past medical history significant for chronic congestive heart failure, morbid obesity with BMI of 59.6 who presented with shortness of breath and hypoxia. Imaging studies obtained demonstrated right upper lobe pneumonia. An assessment of acute on chronic hypoxic and hypercapnic respiratory failure made placed on BiPAP admitted to the intensive care unit for further management 1. Acute on chronic hypoxic and hypercapnic respiratory failure ??? Due to combination of pneumonia, asthma exacerbation as well as suspected CHF exacerbation. Patient was placed on noninvasive ventilation with BiPAP with oxygen titrated to keep saturation greater than 90 ??? 09/05/2024 Patient was weaned off noninvasive ventilation BiPAP and subsequently transferred to the progressive care unit. 2. Pneumonia - Suspected to be secondary to streptococcal pneumonia, Blood and sputum cultures sent. Patient placed on Rocephin and Zithromax and placed on oxygen titrated to keep Pulse Ox greater than 90. Patient presented with acute hypoxic and hypercapnic respiratory failure patient was placed on noninvasive ventilation BiPAP as discussed above ??? 09/05/2024; patient WBC count remains elevated patient is on Solu-Medrol discontinued started patient on prednisone 3. Asthma with acute exacerbation ??? In addition to above management patient was placed on systemic steroids and bronchodilator treatments 4. Class III obesity with BMI of 59.6 ??? Complicating care weight loss advised 5. Acute on chronic congestive heart failure with preserved ejection for ??? Echo obtained on 01/16/2018 demonstrated 60%. Patient placed on diuretic therapy in addition to strict input and output, fluid restriction Daily I's and O's and repeat echo ordered for EF assessment ??? 09/06/2019 five 2D echo obtained 09/06/2019 did show Normal LV size. The left ventricular ejection fraction is 65 %. Mild concentric left ventricular hypertrophy. 6. Depression with anxiety ??? Patient is on sertraline continue 7. Allergic rhinitis ??? Patient is on montelukast did continue 8. Anemia ??? Secondary to chronic disorder Red cell indices demonstrated microcytic anemia with MCV of 75.8. Monitoring H H and transfuse if patient becomes symptomatic or hemoglobin falls below 7. Also ordered iron studies 9. Hyperglycemia ??? Suspected to be secondary to patient receiving systemic steroid however ordered hemoglobin A1c 10. DVT prophylaxis ??? On enoxaparin Medications at Discharge Home Medications montelukast 10 mg tablet 10 mg PO DAILY 03/13/18 albuterol sulfate 90 mcg/actuation aerosol inhaler 1 - 2 puff inhalation Q4H PRN Wheezing 09/03/24 bumetanide 1 mg tablet 1 mg PO DAILY 09/03/24 bupropion HCl 150 mg 24 hr tablet, extended release 150 mg PO DAILY 09/03/24 cetirizine 10 mg tablet 10 mg PO DAILY 09/03/24 cyclosporine 0.05 % eye drops in a dropperette 1 drp ophthalmic (eye) BID 09/03/24 famotidine 20 mg tablet 20 mg PO BID PRN stomach upset 09/03/24 ferrous sulfate 325 mg (65 mg iron) tablet (FeroSul) 325 mg PO DAILY 09/03/24 fluticasone fur. 200 mcg-umeclid 62.5 mcg-vilant 25 mcg inhalat.powder (Trelegy Ellipta) 1 ea inhalation DAILY 09/03/24 fluticasone propionate 50 mcg/actuation nasal spray,suspension 1 spray intranasal BID allergy symptoms 09/03/24 potassium chloride 20 mEq tablet,extended release(part/cryst) 20 meq PO DAILY 09/03/24 sertraline 50 mg tablet 25 mg PO DAILY 09/03/24 azithromycin 500 mg tablet 500 mg PO DAILY 5 days #5 tabs 09/06/24 cefdinir 300 mg capsule 300 mg PO BID 7 days #14 caps 09/06/24 guaifenesin 600 mg tablet, extended release 12 hr (Mucinex) 1,200 mg (2 x 600 mg) PO BID #20 tabs 09/06/24 prednisone 20 mg tablet 40 mg (2 x 20 mg) PO BREAKFAST 7 days #14 tabs 09/06/24 Hospital Course Summary of Care Provided Minutes Spent on Discharge: 34 Physical Exam Narrative GENERAL: Cooperative HEENT: Atraumatic; normocephalic EYES; A (more content not included)...[facility]05-01-2025 Progress note Author Evans Carter [facility] Note Date/Time September 05, 2024 10:19a m [facility] Medical Records Department [address] [place] [address] Progress Note - Hospitalist 09/05/24 0828 MR#: [id number] Acct: [id number] Name: TORRIE MARTINEZ Rep #:[id number] : 1990 34 From: Evans Carter MD PCP: Louann Bermeo CHILD STUDY TEAM DIRECTOR-C Status:ADM IN Location: [place] [address] Reason for Visit Reason for Visit: Diagnoses Pneumonia, unspecified organism (09/03/24) Acute and chronic respiratory failure with hypoxia (09/03/24) Acute and chronic respiratory failure with hypercapnia (09/03/24) Subjective Subjective Patient was weaned off noninvasive ventilation BiPAP and subsequently transferred to the progressive care unit. Objective Data Objective Data Vital Signs: Vital Signs Temp Pulse Resp BP Pulse Ox O2 Del Method O2 Flow Rate 98.1 F 84 16 131/86 H 95 Nasal Cannula 5 09/05/24 08:18 09/05/24 08:18 09/05/24 08:18 09/05/24 08:18 09/05/24 08:18 09/05/24 08:18 09/05/24 08:18 FiO2 40 09/05/24 07:16 Oxygen Flow Rate (L/min) 5 Oxygen Delivery Method Nasal Cannula Weight: 201.7 kg Body Mass Index (BMI) 60.2 Intake & Output: Intake and Output for Last 24 Hours 09/03/24 09/04/24 09/05/24 23:59 23:59 23:59 Intake Total 425 / 425 575 / 575 Output Total 1700 / 1700 Balance -1125 / -1125 Lab / Micro Data 09/05/24 06:32 09/05/24 06:32 Labs: Laboratory Results - last 24 hr 09/04/24 08:45: Immature Plt Fraction 5.2, Retic Count 1.45, Immature Retic Fraction 12.10, Retic Hgb Equivalent 15.5 L, Iron 14 L, TIBC 428, Iron Saturation 3.0 L, Unsaturated IBC 414, Ferritin 25, Vitamin B12 686 09/05/24 06:32: WBC 17.0 H, RBC 5.29, Hgb 10.7 L, Hct 40.2, MCV 76.0 L, MCH 20.2L, MCHC 26.6 L, RDW Std Deviation 48.5 H, RDW Coeff of Micha 17.8 H, Plt Count 273, MPV 9.4, Immature Gran % (Auto) 1.500 H, Neut % (Auto) 85.8 H, Lymph % (Auto) 8.7 L, [place] % (Auto) 3.8, Eos % (Auto) 0.0, Baso % (Auto) 0.2, Absolute Neuts (auto) 14.6 H, Absolute Lymphs (auto) 1.49, Nucleated RBC % 0.4, Sodium 141, Potassium 4.8, Chloride 99, Carbon Dioxide 35.3 H, Anion Gap 7, BUN 10, Creatinine 0.57 L, Estim Creat Clear Calc 278.58 H, Est GFR (MDRD) Non-Af 124, BUN/Creatinine Ratio 17.2, Glucose 151 H, Calcium 8.7, Phosphorus 3.1, Magnesium2.4 H, NT pro BNP II 195, Triglycerides 73, Cholesterol 157, LDL Cholesterol, Calc 96, VLDL Cholesterol 15, HDL Cholesterol 47, Cholesterol/HDL Ratio 3.37 Micro: Microbiology 09/04/24 10:48 Mucosa - Nasopharyngeal Respiratory Panel (PCR) - Final 09/03/24 16:02 Mucosa - Nose SARS-CoV-2, Influenza & RSV (PCR) - Final Radiography Diagnostic Testing: Radiology Impression Echocardiogram 09/04/24 08:10 Interpretation Summary Normal LV size. The left ventricular ejection fraction is 65 %. Mild concentric left ventricular hypertrophy. Contrast injection was performed. The study was technically difficult. Ordering Physician: Evans Carter Referring Physician: Louann Bermeo Performed By: Jovan Alfred RCS Physical Exam Narrative GENERAL: Cooperative HEENT: Atraumatic; normocephalic EYES; Anicteric, Normal Conjunctiva NECK; supple, normal thyroid, RESPIRATORY: Diminished to auscultation CARDIOVASCULAR: Regular S1 S2, GI: soft, normoactive bowel sounds, : No Renal angle tenderness; EXTREMITIES: No edema, no clubbing, MUSCULOSKELETAL: no muscle wasting NEURO: Awake; no lateralizing signs. SKIN: Extensive vitiligo PSYCH; Flat affect Assessment & Plan Assessment/Plan (1) Right upper lobe pneumonia: PLAN: Plan Patient is a 34-year-old lady with past medical history significant for chronic congestive heart failure, morbid obesity with BMI of 59.6 who presented with shortness of breath and hypoxia. Imaging studies obtained demonstrated right upper lobe pneumonia. An assessment of acute on chronic hypoxic and hypercapnicrespiratory failure made placed on BiPAP admitted to the intensive care unit forfurther management 1. Acute on chronic hypoxic and hypercapnic respiratory failure ? Due to combination of pneumonia, asthma exacerbation as well as suspected CHF exacerbation. Patient was placed on noninvasive ventilation with BiPAP with oxygen titrated to keep saturation greater than 90 ? 09/05/2024 Patient was weaned off noninvasive ventilation BiPAP and subsequentlytransferred to the progressive care unit. 2. Pneumonia - Suspected to be secondary to streptococcal pneumonia, Blood and sputum cultures sent. Patient placed on Rocephin and Zithromax and placed on oxygen titrated to keep Pulse Ox greater than 90. Patient presented with acute hypoxicand hypercapnic respiratory failure patient was placed on noninvasive ventilation BiPAP as discussed above ? 09/05/2024; patient WBC count remains elevated patient is on Solu-Medrol discontinued started patient on prednisone 3. Asthma with acute exacerbation ? In addition to above management patient was placed on systemic steroids and bronchodilator treatments 4. Class III obesity with BMI of 59.6 ? Complicating care weight loss advised 5. Acute on chronic congestive heart failure with preserved ejection for ? Echo obtained on 01/16/2018 demonstrated 60%. Patient placed on diuretic therapy in addition to strict input and output, fluid restriction Daily I's and O's and repeat echo ordered for EF assessment ? 09/06/2019 five 2D echo obtained 09/06/2019 did show Normal LV size. The left ventricular ejection fraction is 65 %. Mild concentric left ventricular hypertrophy. 6. Depression with anxiety ? Patient is on sertraline continue 7. Allergic rhinitis ? Patient is on montelukast did continue 8. Anemia ? Secondary to chronic disorder Red cell indices demonstrated microcytic anemia with MCV of 75.8. Monitoring H&H and transfuse if patient becomes symptomatic or hemoglobin falls below 7. Also ordered iron studies 9. Hyperglycemia ? Suspected to be secondary to patient receiving systemic steroid however ordered hemoglobin A1c 10. DVT prophylaxis ? On enoxaparin Charges/Coding Visit Charges Inpatient E&M: 69181 Subs Hosp L2 09/05/24 1019 <Electronically signed by Evans Carter MD> Cosigner Signature (if applicable): CC: ~ Signed [facility] Work Phone: 1(645) 793-330605-01-2025 Progress note Author Toro Holcomb [facility] Note Date/Time September 05, 2024 9:28am [facility] Medical Records Department [address] [place] [address] Progress Note - Senior Maintenance Machinist 09/05/24 0851 MR#: [id number] Acct: [id number] Name: TORRIE MARTINEZ Rep #:[id number] : 1990 34 From: Toro Holcomb DO PCP: OMAR Jones Status:ADM IN Location: [place] [id number] Assessment & Plan Assessment/Plan (1) Acute on chronic respiratory failure with hypoxia and hypercapnia: PLAN: Plan RECOMMENDATIONS: 1. Continue empiric antibiotics. 2. Continue to wean supplemental oxygen to maintain saturations at or above 90%. 3. Continue scheduled bronchodilators and steroids. 4. Continue nocturnal PAP therapy per home regimen. 5. Continue appropriate DVT prophylaxis. 6. Encourage incentive spirometer use and mobilize patient as tolerated. 7. Likely stable for discharge tomorrow. At discharge, recommend transitioningto Levaquin to complete 7 days of therapy along with a 5-day burst of [id number] mg daily. 8. Recommend outpatient follow-up with primary gore inserter after discharge. 9. Will sign off at this time. Please call with any additional questions. IMPRESSIONS: 1. Acute on chronic combined respiratory failure Appears secondary to asthma exacerbation precipitated by right upper lobe pneumonia. The patient, at her baseline, requires 5 L/min of supplemental oxygen. She is currently followed on an outpatient basis by Dr. Bere Marlow [facility] pulmonary medicine. At this time, recommend continuing to wean supplemental oxygen as tolerated to maintain saturations at or above 90%. The patient will be continued on empiric antibiotics along with scheduled bronchodilators and steroids. She appears to be responding clinically to therapy. At discharge, the patient could be sent home to complete a treatment course of Levaquin along with 5 additional days of prednisone 40 mg daily. She should ultimately follow-up with her primary gore inserter after discharge home. 2. Obstructive sleep apnea/super morbid obesity/depression/heart failure with preserved ejection fraction Complicates care, management, recovery and prognosis. Continue home medicationsas indicated. Agree with continuing PAP therapy with naps and nightly. Encourage incentive spirometer use and mobilize patient as tolerated. This note was generated with [employer] dictation software. It may contain incorrectwords, spelling, and punctuation that were not noted in checking the note beforesigning. Subjective Subjective The patient was seen and examined at the bedside this morning. Events from the last 24 hours have been reviewed. The patient is currently afebrile, hemodynamically stable and maintaining appropriate oxygen saturations on 5 L/minvia nasal cannula, which is her baseline requirement. White blood cell count iselevated at 17,000. Hemoglobin and platelet count are stable. Creatinine is within normal limits. The patient does feel somewhat better than yesterday. Objective Data Objective Data The patient's most recent lab work, culture data and imaging studies have all been personally reviewed. Surface echocardiogram demonstrated mild concentric LVH with an ejection fraction of 65%. Lower extremity Doppler study was negative for DVT. Respiratory viral panel was negative. COVID, influenza and RSV PCR's were negative. Blood cultures are pending. Vital Signs: Vital Signs Temp Pulse Resp BP Pulse Ox O2 Del Method O2 Flow Rate 98.1 F 84 16 131/86 H 95 Nasal Cannula 5 09/05/24 08:18 09/05/24 08:18 09/05/24 08:18 09/05/24 08:18 09/05/24 08:18 09/05/24 08:18 09/05/24 08:18 FiO2 40 09/05/24 07:16 Oxygen Flow Rate (L/min) 5 Oxygen Delivery Method Nasal Cannula Weight: 444 lb 10.758 oz Body Mass Index (BMI) 60.2 Intake & Output: Intake and Output for Last 24 Hours 09/03/24 09/04/24 09/05/24 23:59 23:59 23:59 Intake Total 425 / 425 575 / 575 Output Total 1700 / 1700 Balance -1125 / -1125 Lab / Micro Data Attestation: I reviewed the patient's lab results. 09/05/24 06:32 09/05/24 06:32 Labs: Laboratory Results - last 24 hr 09/04/24 08:45: Immature Plt Fraction 5.2, Retic Count 1.45, Immature Retic Fraction 12.10, Retic Hgb Equivalent 15.5 L, Iron 14 L, TIBC 428, Iron Saturation 3.0 L, Unsaturated IBC 414, Ferritin 25, Vitamin B12 686 09/05/24 06:32: WBC 17.0 H, RBC 5.29, Hgb 10.7 L, Hct 40.2, MCV 76.0 L, MCH 20.2L, MCHC 26.6 L, RDW Std Deviation 48.5 H, RDW Coeff of Micha 17.8 H, Plt Count 273, MPV 9.4, Immature Gran % (Auto) 1.500 H, Neut % (Auto) 85.8 H, Lymph % (Auto) 8.7 L, [place] % (Auto) 3.8, Eos % (Auto) 0.0, Baso % (Auto) 0.2, Absolute Neuts (auto) 14.6 H, Absolute Lymphs (auto) 1.49, Nucleated RBC % 0.4, Sodium 141, Potassium 4.8, Chloride 99, Carbon Dioxide 35.3 H, Anion Gap 7, BUN 10, Creatinine 0.57 L, Estim Creat Clear Calc 278.58 H, Est GFR (MDRD) Non-Af 124, BUN/Creatinine Ratio 17.2, Glucose 151 H, Calcium 8.7, Phosphorus 3.1, Magnesium2.4 H, NT pro BNP II 195, Triglycerides 73, Cholesterol 157, LDL Cholesterol, Calc 96, VLDL Cholesterol 15, HDL Cholesterol 47, Cholesterol/HDL Ratio 3.37 Micro: Microbiology 09/04/24 10:48 Mucosa - Nasopharyngeal Respiratory Panel (PCR) - Final 09/03/24 16:02 Mucosa - Nose SARS-CoV-2, Influenza & RSV (PCR) - Final Radiography Diagnostic Testing: Radiology Impression Echocardiogram 09/04/24 08:10 Interpretation Summary Normal LV size. The left ventricular ejection fraction is 65 %. Mild concentric left ventricular hypertrophy. Contrast injection was performed. The study was technically difficult. Ordering Physician: Evans Carter Referring Physician: Louann Bermeo Performed By: Jovan Alfred RCS Physical Exam Const alert, oriented x3 and no apparent distress Constitutional Narrative: Super morbidly obese. General Appearance: cooperative HEENT normocephalic, head/scalp atraumatic and moist oral mucous membranes Eyes PERRL, EOMs intact bilaterally and conjunctivae normal Neck supple General: trachea midline Chest inspection of chest normal Resp normal respiratory effort Effort and Inspection: able to speak in complete sentences Auscultation: wheezes and diminished lung sounds Cardio regular rate and regular rhythm GI normal to inspection, nondistended, normoactive bowel sounds Extremity General Extremity: edema; Negative for clubbing Skin no rashes or lesions noted Neuro CN's II-XII intact bilaterally, moves all extremities and no focal motor deficits Psych cooperative and affect normal Charges/Coding Visit Charges Inpatient E&M: 68339 Subs Hosp L2 09/05/24927 <Electronically signed by Toro Holcomb DO> Cosigner Signature (if applicable): CC: ~ Signed [facility] Work Phone: 1(726) 360-619305-01-2025 Progress note [facility] Medical Records Department [address] [place] [address] Progress Note - Hospitalist 09/05/24827 MR#: [id number] Acct: [id number] Name: TORRIE MARTINEZ Rep #:[id number] : 1990 34 From: Evans Carter MD PCP: Louann Bermeo, CHILD STUDY TEAM DIRECTOR-C Status:ADM IN Location: [place] [address] Reason for Visit Reason for Visit: Diagnoses Pneumonia, unspecified organism (09/03/24) Acute and chronic respiratory failure with hypoxia (09/03/24) Acute and chronic respiratory failure with hypercapnia (09/03/24) Subjective Subjective Patient was weaned off noninvasive ventilation BiPAP and subsequently transferred to the progressive care unit. Objective Data Objective Data Vital Signs: Vital Signs Temp Pulse Resp BP Pulse Ox O2 Del Method O2 Flow Rate 98.1 F 84 16 131/86 H 95 Nasal Cannula 5 09/05/24 08:18 09/05/24 08:18 09/05/24 08:18 09/05/24 08:18 09/05/24 08:18 09/05/24 08:18 09/05/24 08:18 FiO2 40 09/05/24 07:16 Oxygen Flow Rate (L/min) 5 Oxygen Delivery Method Nasal Cannula Weight: 201.7 kg Body Mass Index (BMI) 60.2 Intake & Output: Intake and Output for Last 24 Hours 09/03/24 09/04/24 09/05/24 23:59 23:59 23:59 Intake Total 425 / 425 575 / 575 Output Total 1700 / 1700 Balance / -1125 / -1125 Lab / Micro Data 09/05/24 06:32 09/05/24 06:32 Labs: Laboratory Results - last 24 hr 09/04/24 08:45: Immature Plt Fraction 5.2, Retic Count 1.45, Immature Retic Fraction 12.10, Retic Hgb Equivalent 15.5 L, Iron 14 L, TIBC 428, Iron Saturation 3.0 L, Unsaturated IBC 414, Ferritin 25, Vitamin B12 686 09/05/24 06:32: WBC 17.0 H, RBC 5.29, Hgb 10.7 L, Hct 40.2, MCV 76.0 L, MCH 20.2L, MCHC 26.6 L, RDWStd Deviation 48.5 H, RDW Coeff of Micha 17.8 H, Plt Count 273, MPV 9.4, Immature Gran % (Auto) 1.500H, Neut % (Auto) 85.8 H, Lymph % (Auto) 8.7 L, [place] % (Auto) 3.8, Eos % (Auto) 0.0, Baso % (Auto) 0.2, Absolute Neuts (auto) 14.6 H, Absolute Lymphs (auto) 1.49, Nucleated RBC % 0.4, Sodium 141, Potassium 4.8, Chloride 99, Carbon Dioxide 35.3 H, Anion Gap 7, BUN 10, Creatinine 0.57 L, Estim Creat Clear Calc 278.58 H, Est GFR (MDRD) Non-Af 124, BUN/Creatinine Ratio 17.2, Glucose 151 H, Calcium 8.7, Phosphorus 3.1, Magnesium2.4 H, NT pro BNP II 195, Triglycerides 73, Cholesterol 157, LDL Cholesterol, Calc 96, VLDL Cholesterol 15, HDL Cholesterol 47, Cholesterol/HDL Ratio 3.37 Micro: Microbiology 09/04/24 10:48 Mucosa - Nasopharyngeal Respiratory Panel (PCR) - Final 09/03/24 16:02 Mucosa - Nose SARS-CoV-2, Influenza & RSV (PCR) - Final Radiography Diagnostic Testing: Radiology Impression Echocardiogram 09/04/24 08:10 Interpretation Summary Normal LV size. The left ventricular ejection fraction is 65 %. Mild concentric left ventricular hypertrophy. Contrast injection was performed. The study was technically difficult. Ordering Physician: Evans Carter Referring Physician: Louann Bermeo Performed By: Jovan Alfred RCS Physical Exam Narrative GENERAL: Cooperative HEENT: Atraumatic; normocephalic EYES; Anicteric, Normal Conjunctiva NECK; supple, normal thyroid, RESPIRATORY: Diminished to auscultation CARDIOVASCULAR: Regular S1 S2, GI: soft, normoactive bowel sounds, : No Renal angle tenderness; EXTREMITIES: No edema, no clubbing, MUSCULOSKELETAL: no muscle wasting NEURO: Awake; no lateralizing signs. SKIN: Extensive vitiligo PSYCH; Flat affect Assessment & Plan Assessment/Plan (1) Right upper lobe pneumonia: PLAN: Plan Patient is a 34-year-old lady with past medical history significant for chronic congestive heart failure, morbid obesity with BMI of 59.6 who presented with shortness of breath and hypoxia. Imaging studies obtained demonstrated right upper lobe pneumonia. An assessment of acute on chronic hypoxic and hypercapnicrespiratory failure made placed on BiPAP admitted to the intensive care unit forfurther management 1. Acute on chronic hypoxic and hypercapnic respiratory failure ? Due to combination of pneumonia, asthma exacerbation as well as suspected CHF exacerbation. Patient was placed on noninvasive ventilation with BiPAP with oxygen titrated to keep saturation greater than 90 ? 09/05/2024 Patient was weaned off noninvasive ventilation BiPAP and subsequentlytransferred to the progressive care unit. 2. Pneumonia - Suspected to be secondary to streptococcal pneumonia, Blood and sputum cultures sent. Patient placed on Rocephin and Zithromax and placed on oxygen titrated to keep Pulse Ox greater than 90. Patient presented with acute hypoxicand hypercapnic respiratory failure patient was placed on noninvasive v entilation BiPAP as discussed above ? 09/05/2024; patient WBC count remains elevated patient is on Solu-Medrol discontinued started patient on prednisone 3. Asthma with acute exacerbation ? In addition to above management patient was placed on systemic steroids and bronchodilator treatments 4. Class III obesity with BMI of 59.6 ? Complicating care weight loss advised 5. Acute on chronic congestive heart failure with preserved ejection for ? Echo obtained on 01/16/2018 demonstrated 60%. Patient placed on diuretic therapy in addition to strict input and output, fluid restriction Daily I's and O's and repeat echo ordered for EF assessment ? 09/06/2019 five 2D echo obtained 09/06/2019 did show Normal LV size. The left ventricular ejection fraction is 65 %. Mild concentric left ventricular hypertrophy. 6. Depression with anxiety ? Patient is on sertraline continue 7. Allergic rhinitis ? Patient is on montelukast did continue 8. Anemia ? Secondary to chronic disorder Red cell indices demonstrated microcytic anemia with MCV of 75.8. Monitoring H&H and transfuse if patient becomes symptomatic or hemoglobin falls below 7. Also ordered iron studies 9. Hyperglycemia ? Suspected to be secondary to patient receiving systemic steroid however ordered hemoglobin A1c 10. DVT prophylaxis ? On enoxaparin Charges/Coding Visit Charges Inpatient E&M: 97890 Subs Hosp L2 09/05/24 1019 Cosigner Signature (if applicable): CC: ~ Signed [facility]05-01-2025 Progress note [facility] Medical Records Department [address] [place] [address] Progress Note - Senior Maintenance Machinist 09/05/24 0851 MR#: [id number] Acct: [id number] Name: TORRIE MARTINEZ Rep #:[id number] : 1990 34 From: Toro Holcomb DO PCP: Louann Bermeo CHILD STUDY TEAM DIRECTOR-C Status:ADM IN Location: [address] 1 Assessment & Plan Assessment/Plan (1) Acute on chronic respiratory failure with hypoxia and hypercapnia: PLAN: Plan RECOMMENDATIONS: 1. Continue empiric antibiotics. 2. Continue to wean supplemental oxygen to maintain saturations at or above 90%. 3. Continue scheduled bronchodilators and steroids. 4. Continue nocturnal PAP therapy per home regimen. 5. Continue appropriate DVT prophylaxis. 6. Encourage incentive spirometer use and mobilize patient as tolerated. 7. Likely stable for discharge tomorrow. At discharge, recommend transitioningto Levaquin to complete 7 days of therapy along with a 5-day burst of [id number] mg daily. 8. Recommend outpatient follow-up with primary gore inserter after discharge. 9. Will sign off at this time. Please call with any additional questions. IMPRESSIONS: 1. Acute on chronic combined respiratory failure Appears secondary to asthma exacerbation precipitated by right upper lobe pneumonia. The patient, at her baseline, requires 5 L/min of supplemental oxygen. She is currently followed on an outpatient basis by Dr. Bere Holcombof [facility] pulmonary medicine. At this time, recommend continuing to wean sup plemental oxygen as tolerated to maintain saturations at or above 90%. The patient will be continued on empiric antibiotics along with scheduled bronchodilators and steroids. She appears to be responding clinically to therapy. At discharge, the patient could be sent home to complete a treatment course of Levaquin along with 5 additional days of prednisone 40 mg daily. She should ultimately follow-up with her primary gore inserter after discharge home. 2. Obstructive sleep apnea/super morbid obesity/depression/heart failure with preserved ejection fraction Complicates care, management, recovery and prognosis. Continue home medicationsas indicated. Agree with continuing PAP therapy with naps and nightly. Encourage incentive spirometer use and mobilize patient as tolerated. This note was generated with Krave-N dictation software. It may contain incorrectwords, spelling, and punctuation that were not noted in checking the note beforesigning. Subjective Subjective The patient was seen and examined at the bedside this morning. Events from the last 24 hours have been reviewed. The patient is currently afebrile, hemodynamically stable and maintaining appropriate oxygen saturations on 5 L/minvia nasal cannula, which is her baseline requirement. White blood cell c ount iselevated at 17,000. Hemoglobin and platelet count are stable. Creatinine is within normal limits. The patient does feel somewhat better than yesterday. Objective Data Objective Data The patient's most recent lab work, culture data and imaging studies have all been personally reviewed. Surface echocardiogram demonstrated mild concentric LVH with an ejection fraction of 65%. Lowerextremity Doppler study was negative for DVT. Respiratory viral panel was negative. COVID, influenza and RSV PCR's were negative. Blood cultures are pending. Vital Signs: Vital Signs Temp Pulse Resp BP Pulse Ox O2 Del Method O2 Flow Rate 98.1 F 84 16 131/86 H 95 Nasal Cannula 5 09/05/24 08:18 09/05/24 08:18 09/05/24 08:18 09/05/24 08:18 09/05/24 08:18 09/05/24 08:18 09/05/24 08:18 FiO2 40 09/05/24 07:16 Oxygen Flow Rate (L/min) 5 Oxygen Delivery Method Nasal Cannula Weight: 444 lb 10.758 oz Body Mass Index (BMI) 60.2 Intake & Output: Intake and Output for Last 24 Hours 09/03/24 09/04/24 09/05/24 23:59 23:59 23:59 Intake Total 425 / 425 575 / 575 Output Total 1700 / 1700 Balance -1125 / -1125 Lab / Micro Data Attestation: I reviewed the patient's lab results. 09/05/24 06:32 09/05/24 06:32 Labs: Laboratory Results - last 24 hr 09/04/24 08:45: Immature Plt Fraction 5.2, Retic Count 1.45, Immature Retic Fraction 12.10, Retic Hgb Equivalent 15.5 L, Iron 14 L, TIBC 428, Iron Saturation 3.0 L, Unsaturated IBC 414, Ferritin 25, Vitamin B12 686 09/05/24 06:32: WBC 17.0 H, RBC 5.29, Hgb 10.7 L, Hct 40.2, MCV 76.0 L, MCH 20.2L, MCHC 26.6 L, RDWStd Deviation 48.5 H, RDW Coeff of Micha 17.8 H, Plt Count 273, MPV 9.4, Immature Gran % (Auto) 1.500H, Neut % (Auto) 85.8 H, Lymph % (Auto) 8.7 L, [place] % (Auto) 3.8, Eos % (Auto) 0.0, Baso % (Auto) 0.2, Absolute Neuts (auto) 14.6 H, Absolute Lymphs (auto) 1.49, Nucleated RBC % 0.4, Sodium 141, Potassium 4.8, Chloride 99, Carbon Dioxide 35.3 H, Anion Gap 7, BUN 10, Creatinine 0.57 L, Estim Creat Clear Calc 278.58 H, Est GFR (MDRD) Non-Af 124, BUN/Creatinine Ratio 17.2, Glucose 151 H, Calcium 8.7, Phosphorus 3.1, Magnesium2.4 H, NT pro BNP II 195, Triglycerides 73, Cholesterol 157, LDL Cholesterol, Calc 96, VLDL Cholesterol 15, HDL Cholesterol 47, Cholesterol/HDL Ratio 3.37 Micro: Microbiology 09/04/24 10:48 Mucosa - Nasopharyngeal Respiratory Panel (PCR) - Final 09/03/24 16:02 Mucosa - Nose SARS-CoV-2, Influenza & RSV (PCR) - Final Radiography Diagnostic Testing: Radiology Impression Echocardiogram 09/04/24 08:10 Interpretation Summary Normal LV size. The left ventricular ejection fraction is 65 %. Mild concentric left ventricular hypertrophy. Contrast injection was performed. The study was technically difficult. Ordering Physician: Evans Carter Referring Physician: Louann Bermeo Performed By: Jovan Alfred RCS Physical Exam Const alert, oriented x3 and no apparent distress Constitutional Narrative: Super morbidly obese. General Appearance: cooperative HEENT normocephalic, head/scalp atraumatic and moist oral mucous membranes Eyes PERRL, EOMs intact bilaterally and conjunctivae normal Neck supple General: trachea midline Chest inspection of chest normal Resp normal respiratory effort Effort and Inspection: able to speak in complete sentences Auscultation: wheezes and diminished lung sounds Cardio regular rate and regular rhythm GI normal to inspection, nondistended, normoactive bowel sounds Extremity General Extremity: edema; Negative for clubbing Skin no rashes or lesions noted Neuro CN's II-XII intact bilaterally, moves all extremities and no focal motor deficits Psych cooperative and affect normal Charges/Coding Visit Charges Inpatient E&M: 47458 Subs Hosp L2 09/05/24 0908 Cosigner Signature (if applicable): CC: ~ Signed [facility]04-30-2025 Consult note Author Toro Holcomb [facility] Note Date/Time September 04, 2024 9:3 7am [facility] Medical Records Department [address] [place] [address] Consultation - Senior Maintenance Machinist 09/04/24 0830 MR#: [id number] Acct: [id number] Name: TORRIE MARTINEZ Rep #:[id number] : 1990 34 From: Toro Holcomb DO PCP: Louann Bermeo, CHILD STUDY TEAM DIRECTOR-C Status:ADM IN Location: ICU CVICU20 2-1 Assessment & Plan Assessment/Plan (1) Acute on chronic respiratory failure with hypoxia and hypercapnia: PLAN: Plan RECOMMENDATIONS: 1. Continue empiric antibiotics. Send sputum for culture. 2. Continue to wean supplemental oxygen to maintain saturations at or above 90%. 3. Continue scheduled bronchodilators and steroids. 4. Continue nocturnal PAP therapy per home regimen. 5. Continue appropriate DVT prophylaxis. 6. Encourage incentive spirometer use and mobilize patient as tolerated. IMPRESSIONS: 1. Acute on chronic combined respiratory failure Appears secondary to asthma exacerbation precipitated by right upper lobe pneumonia. The patient, at her baseline, requires 5 L/min of supplemental oxygen. She is currently followed on an outpatient basis by Dr. Bere Holcombof [facility] pulmonary medicine. At this time, recommend continuing to wean supplemental oxygen as tolerated to maintain saturations at or above 90%. The patient will be continued on empiric antibiotics along with scheduled bronchodilators and steroids. She appears to be responding clinically to therapy. 2. Obstructive sleep apnea/super morbid obesity/depression/heart failure with preserved ejection fraction Complicates care, management, recovery and prognosis. Continue home medicationsas indicated. Agree with continuing PAP therapy with naps and nightly. Encourage incentive spirometer use and mobilize patient as tolerated. This note was generated with Krave-N dictation software. It may contain incorrectwords, spelling, and punctuation that were not noted in checking the note beforesigning. HPI Consult Data Date of Consult: 09/04/24 HPI Narrative Reason for Consultation: Acute on chronic respiratory failure HPI Narrative: The patient is a 34-year-old female, with a history as outlined below, who presented to the emergency department on September 03 with worsening dyspnea of approximately 5 days duration. According to the patient, she is currently followed in the office of Dr. Bere Holcomb of pulmonary medicine at [facility] due to a history of severe persistent asthma, chronic hypoxemic respiratory failure with a baseline oxygen requirement of 5 L/min and obstructive sleep apnea. The patient reported a remote smoking history, currently in remission. She is currently unemployed. In addition to her dyspnea, she does report the presence of wheezing, chest tightness and productive cough. She denied any recent sick contact exposure. She has been compliant with her prescribed maintenance inhalers on an outpatient basis. On presentation to the emergency department, the patient was documented to have a low-grade fever and was notably tachycardic and tachypneic. She was otherwisehemodynamically stable. Laboratory evaluation was notable for a white blood cell count of 15,000. Chemistry profile was notable for a bicarbonate of 35 with normal creatinine. Chest x-ray demonstrated the presence of a right upper lobe infiltrate. Lower extremity Doppler study was negative for DVT. The patient was subsequently placed on antimicrobials, bronchodilators and steroids. She was admitted to the medical intensive care unit for overnight observation. This morning, the patient reported that her breathing quality has improved. Heroxygen requirement has been weaned down to 8 L/min via nasal cannula. [facility] Medical History Pneumonia COPD (chronic obstructive pulmonary disease) Environmental allergies Anemia Depression Asthma Medical History no medical history Home Medications ?Medication ?Instructions ?Recorded ?Last Taken ?Type montelukast 10 mg tablet 10 mg PO DAILY 03/13/1808/07 History albuterol sulfate 90 mcg/actuation 1 - 2 puff inhalati on Q4H PRN 09/03/24 Unknown History aerosol inhaler Wheezing bumetanide 1 mg tablet 1 mg PO DAILY 09/03/2409/02 History bupropion HCl 150 mg 24 hr tablet, 150 mg PO DAILY 09/02/24 History extended release cetirizine 10 mg tablet 10 mg PO DAILY 09/03/2408/07 History cyclosporine 0.05 % eye drops in a 1 drp ophthalmic (e ye) BID 09/03/24 Unknown History dropperette famotidine 20 mg tablet 20 mg PO BID PRN stomach ups et 09/03/24 Unknown History ferrous sulfate 325 mg (65 mg 325 mg PO DAILY 09/03/24 09/02/24 History iron) tablet (FeroSul) fluticasone fur. 200 mcg-umeclid 1 ea inhalation DAILY 09/03/24 09/02/24 History 62.5 mcg-vilant 25 mcg inhalat.powder (Trelegy Ellipta) fluticasone propionate 50 1 spray intranasal BID aller gy 09/03/24 Unknown History mcg/actuation nasal symptoms spray,suspension potassium chloride 20 mEq 20 meq PO DAILY 09/03/24 History tablet,extended release(part/cryst) sertraline 50 mg tablet 25 mg PO DAILY 09/03/24 Unkn own History Allergy/AdvReac Type Severity Reaction Status Date / Time No Known Allergies Allergy Verified 09/03/24 14:28 Family History (Updated 09/03/24 @ 18:[address] Jesse Lobo MD) Other Cancer Family History no significant family his Surgical History Hx of knee surgery Hx of section Surgical History no surgical history Social History Smoking Status: Former smoker ROS ROS Narrative 10 systems were reviewed with pertinent positives as noted in the HPI above. Physical Exam Const alert, oriented x3 and no apparent distress Constitutional Narrative: Super morbidly obese. General Appearance: cooperative HEENT normocephalic, head/scalp atraumatic and moist oral mucous membranes Eyes PERRL, EOMs intact bilaterally and conjunctivae normal Neck supple General: trachea midline Chest inspection of chest normal Resp normal respiratory effort Effort and Inspection: able to speak in complete sentences Auscultation: wheezes and diminished lung sounds Cardio regular rate and regular rhythm GI normal to inspection, nondistended, normoactive bowel sounds Extremity General Extremity: edema; Negative for clubbing Skin no rashes or lesions noted Neuro CN's II-XII intact bilaterally, moves all extremities and no focal motor deficits Psych cooperative and affect normal Lab / Micro Data 09/04/24 03:37 09/04/24 03:37 Labs: Laboratory Results - last 24 hr 09/03/24 14:25: WBC 15.0 H, RBC 5.83 H, Hgb 11.8 L, Hct 44.0, MCV 75.5 L, MCH 20.2 L, MCHC 26.8 L, RDW Std Deviation 49.2 H, RDW Coeff of Micha 18.7 H, Plt Count 276, MPV 10.3, Immature Gran % (Auto) 1.200 H, Neut % (Auto) 80.1 H, Lymph% (Auto) 10.9 L, [place] % (Auto) 6.9, Eos % (Auto) 0.7, Baso % (Auto) 0.2, Absolute Neuts (auto) 12.0 H, Absolute Lymphs (auto) 1.63, Nucleated RBC % 0.5 09/03/24 14:29: Sodium 142, Potassium 4.4, Chloride 99, Carbon Dioxide 35.6 H, Anion Gap 8, BUN 11, Creatinine 0.72, Estim Creat Clear Calc 220.04, Est GFR (MDRD) Non-Af 114, BUN/Creatinine Ratio 15.3, Glucose 102 H, Lactic Acid < 1.0, Calcium 8.7, Total Bilirubin 0.24, AST 33 H, ALT 29, Alkaline Phosphatase 98, Total Protein 6.1, Albumin 4.0, Globulin 2.1 L, Albumin/Globulin Ratio 1.9 09/04/24 03:37: WBC 14.9 H, RBC 5.29, Hgb 10.7 L, Hct 40.1, MCV 75.8 L, MCH 20.2L, MCHC 26.7 L, RDW Std Deviation 48.8 H, RDW Coeff of Micha 18.0 H, Plt Count 236, MPV 9.8, Immature Gran % (Auto) 1.100 H, Neut % (Auto) 90.6 H, Lymph % (Auto) 6.4 L, [place] % (Auto) 1.7, Eos % (Auto) 0.0, Baso % (Auto) 0.2, Absolute Neuts (auto) 13.5 H, Absolute Lymphs (auto) 0.95, Nucleated RBC % 0.3, Sodium 141, Potassium 5.1, Chloride 100, Carbon Dioxide 33.9 H, Anion Gap 7, BUN 10, Creatinine 0.63 L, Estim Creat Clear Calc 250.02 H, Est GFR (MDRD) Non-Af 121, BUN/Creatinine Ratio 15.3, Glucose 192 H, Calcium 8.5 Micro: Microbiology 09/03/24 16:02 Mucosa - Nose SARS-CoV-2, Influenza & RSV (PCR) - Final ABG Data ABG results: ABG 09/03/24 09/03/24 15:39 17:23 Specimen Type SILVINO SILVINO Sample Site Not entered Not entered O2 % 13.0 70.0 VBG pH 7.30 L 7.33 VBG pO2 30 71 H VBG HCO3 41 H 39 H VBG Total CO2 43 H 42 H VBG O2 Sat (Calc) 47 L 92 H VBG Base Excess 14 H 13 H POC Mix VBG pCO2 Pt Tmp 83.3 H* 74.7 H* O2 Delivery Device Cannula BiPAP Crit Call To/Read Back Yes Yes Blood Gas Notified Whom ug ug Blood Gas Notified Time 15:40:35 17:24:21 Imaging Radiology Impression Venous Doppler Study 09/03/24 15:33 Interpretation Summary Deep veins of the left lower extremity are patent and compressible segmentally. There is no evidence of left lower extremity deep vein thrombosis. The left great saphenous vein appears patent andcompressible segmentally. Limited study Ordering Physician: Randy Bailey Referring Physician: Louann Bermeo Performed By: Srinath Chahal, RVT Chest X-Ray 09/03/24 17:00 IMPRESSION: 1. Findings compatible with RIGHT upper lobe pneumonia. Follow-up to radiographic resolution. 2. Additional description as above. Reading Location: [facility] Charges/Coding Visit Charges Inpatient E&M: 97869 Init Hosp L3 09/04/24 0937 <Electronically signed by Toro Holcomb DO> Cosigner Signature (if applicable): CC: CHILD STUDY TEAM DIRECTOR-C Louann Bermeo~ Signed [facility] Work Phone: [phone]) 865-641504-30-2025 Progress note Author Evans Carter [facility] Note Date/Time September 04, 2024 8:0 8am [facility] Medical Records Department [address] [place] [id number] Progress Note - Hospitalist 09/04/24 0716 MR#: [id number] Acct: [id number] Name: TORRIE MARTINEZ Rep #:[id number] : 1990 34 From: Evans Carter MD PCP: OMAR Jones Status:ADM IN Location: ICU CVICU20 2-1 Reason for Visit Reason for Visit: Diagnoses Pneumonia, unspecified organism (09/03/24) Subjective Subjective Patient is a 34-year-old lady with past medical history significant for chronic congestive heart failure, morbid obesity with BMI of 59.6 who presented with shortness of breath and hypoxia. Imaging studies obtained demonstrated right upper lobe pneumonia. An assessment of acute on chronic hypoxic and hypercapnicrespiratory failure made placed on BiPAP admitted to the intensive care unit forfurther management Objective Data Objective Data Vital Signs: Vital Signs Temp Pulse Resp BP Pulse Ox O2 Del Method O2 Flow Rate 97.5 F L 77 16 123/87 H 99 High Flow 13 09/04/24 06:00 09/04/24 07:00 09/04/24 07:00 09/04/24 07:00 09/04/24 07:00 09/04/24 07:00 09/04/24 07:00 FiO2 55 09/04/24 04:00 Oxygen Flow Rate (L/min) 13 Oxygen Delivery Method High Flow Weight: 199.2 kg Body Mass Index (BMI) 59.4 Intake & Output: Intake and Output for Last 24 Hours 09/02/24 09/03/24 09/04/24 23:59 23:59 23:59 Intake Total 425 / 425 Output Total 850 / 850 Balance -850 / -850 Lab / Micro Data 09/04/24 03:37 09/04/24 03:37 Labs: Laboratory Results - last 24 hr 09/03/24 14:25: WBC 15.0 H, RBC 5.83 H, Hgb 11.8 L, Hct 44.0, MCV 75.5 L, MCH 20.2 L, MCHC 26.8 L, RDW Std Deviation 49.2 H, RDW Coeff of Micha 18.7 H, Plt Count 276, MPV 10.3, Immature Gran % (Auto) 1.200 H, Neut % (Auto) 80.1 H, Lymph% (Auto) 10.9 L, [place] % (Auto) 6.9, Eos % (Auto) 0.7, Baso % (Auto) 0.2, Absolute Neuts (auto) 12.0 H, Absolute Lymphs (auto) 1.63, Nucleated RBC % 0.5 09/03/24 14:29: Sodium 142, Potassium 4.4, Chloride 99, Carbon Dioxide 35.6 H, Anion Gap 8, BUN 11, Creatinine 0.72, Estim Creat Clear Calc 220.04, Est GFR (MDRD) Non-Af 114, BUN/Creatinine Ratio 15.3, Glucose 102 H, Lactic Acid < 1.0, Calcium 8.7, Total Bilirubin 0.24, AST 33 H, ALT 29, Alkaline Phosphatase 98, Total Protein 6.1, Albumin 4.0, Globulin 2.1 L, Albumin/Globulin Ratio 1.9 09/04/24 03:37: WBC 14.9 H, RBC 5.29, Hgb 10.7 L, Hct 40.1, MCV 75.8 L, MCH 20.2L, MCHC 26.7 L, RDW Std Deviation 48.8 H, RDW Coeff of Micha 18.0 H, Plt Count 236, MPV 9.8, Immature Gran % (Auto) 1.100 H, Neut % (Auto) 90.6 H, Lymph % (Auto) 6.4 L, [place] % (Auto) 1.7, Eos % (Auto) 0.0, Baso % (Auto) 0.2, Absolute Neuts (auto) 13.5 H, Absolute Lymphs (auto) 0.95, Nucleated RBC % 0.3, Sodium 141, Potassium 5.1, Chloride 100, Carbon Dioxide 33.9 H, Anion Gap 7, BUN 10, Creatinine 0.63 L, Estim Creat Clear Calc 250.02 H, Est GFR (MDRD) Non-Af 121, BUN/Creatinine Ratio 15.3, Glucose 192 H, Calcium 8.5 Micro: Microbiology 09/03/24 16:02 Mucosa - Nose SARS-CoV-2, Influenza & RSV (PCR) - Final ABG Data ABG results: ABG 09/03/24 09/03/24 15:39 17:23 Specimen Type SILVINO SILVINO Sample Site Not entered Not entered O2 % 13.0 70.0 VBG pH 7.30 L 7.33 VBG pO2 30 71 H VBG HCO3 41 H 39 H VBG Total CO2 43 H 42 H VBG O2 Sat (Calc) 47 L 92 H VBG Base Excess 14 H 13 H POC Mix VBG pCO2 Pt Tmp 83.3 H* 74.7 H* O2 Delivery Device Cannula BiPAP Crit Call To/Read Back Yes Yes Blood Gas Notified Whom ug ug Blood Gas Notified Time 15:40:35 17:24:21 Radiography Diagnostic Testing: Radiology Impression Venous Doppler Study 09/03/24 15:33 Interpretation Summary Deep veins of the left lower extremity are patent and compressible segmentally. There is no evidence of left lower extremity deep vein thrombosis. The left great saphenous vein appears patent andcompressible segmentally. Limited study Ordering Physician: Randy Bailey Referring Physician: Louann Bermeo Performed By: Srinath Chahal RVT Chest X-Ray 09/03/24 17:00 IMPRESSION: 1. Findings compatible with RIGHT upper lobe pneumonia. Follow-up to radiographic resolution. 2. Additional description as above. Reading Location: [facility] Physical Exam Narrative GENERAL: Cooperative HEENT: Atraumatic; normocephalic EYES; Anicteric, Normal Conjunctiva NECK; supple, normal thyroid, RESPIRATORY: Diminished to auscultation CARDIOVASCULAR: Regular S1 S2, GI: soft, normoactive bowel sounds, : No Renal angle tenderness; EXTREMITIES: No edema, no clubbing, MUSCULOSKELETAL: no muscle wasting NEURO: Awake; no lateralizing signs. SKIN: Extensive vitiligo PSYCH; Flat affect Assessment & Plan Assessment/Plan (1) Right upper lobe pneumonia: PLAN: Plan Patient is a 34-year-old lady with past medical history significant for chronic congestive heart failure, morbid obesity with BMI of 59.6 who presented with shortness of breath and hypoxia. Imaging studies obtained demonstrated right upper lobe pneumonia. An assessment of acute on chronic hypoxic and hypercapnicrespiratory failure made placed on BiPAP admitted to the intensive care unit forfurther management 1. Acute on chronic hypoxic and hypercapnic respiratory failure ? Due to combination of pneumonia, asthma exacerbation as well as suspected CHF exacerbation. Patient was placed on noninvasive ventilation with BiPAP with oxygen titrated to keep saturation greater than 90 2. Pneumonia - Suspected to be secondary to streptococcal pneumonia, Blood and sputum cultures sent. Patient placed on Rocephin and Zithromax and placed on oxygen titrated to keep Pulse Ox greater than 90. Patient presented with acute hypoxicand hypercapnic respiratory failure patient was placed on noninvasive ventilation BiPAP as discussed above 3. Asthma with acute exacerbation ? In addition to above management patient was placed on systemic steroids and bronchodilator treatments 4. Class III obesity with BMI of 59.6 ? Complicating care weight loss advised 5. Acute on chronic congestive heart failure with preserved ejection for ? Echo obtained on 01/16/2018 demonstrated 60%. Patient placed on diuretic therapy in addition to strict input and output, fluid restriction Daily I's and O's and repeat echo ordered for EF assessment 6. Depression with anxiety ? Patient is on sertraline continue 7. Allergic rhinitis ? Patient is on montelukast did continue 8. Anemia ? Secondary to chronic disorder Red cell indices demonstrated microcytic anemia with MCV of 75.8. Monitoring H&H and transfuse if patient becomes symptomatic or hemoglobin falls below 7. Also ordered iron studies 9. Hyperglycemia ? Suspected to be secondary to patient receiving systemic steroid however ordered hemoglobin A1c 10. DVT prophylaxis ? On enoxaparin Charges/Coding Visit Charges Inpatient E&M: 19696 Subs Hosp L3 09/04/24 0808 <Electronically signed by Evans Carter MD> Cosigner Signature (if applicable): CC: ~ Signed [facility] Work Phone: [phone] Consult note [facility] Medical Records Department [address] [place] [address] Consultation - Senior Maintenance Machinist 09/04/24 0830 MR#: [id number] Acct: [id number] Name: TORRIE MARTINEZ Rep #:[id number] : 1990 34 From: Toro Holcomb DO PCP: OMAR Jones Status:ADM IN Location: ICU CVICU 2-1 Assessment & Plan Assessment/Plan (1) Acute on chronic respiratory failure with hypoxia and hypercapnia: PLAN: Plan RECOMMENDATIONS: 1. Continue empiric antibiotics. Send sputum for culture. 2. Continue to wean supplemental oxygen to maintain saturations at or above 90%. 3. Continue scheduled bronchodilators and steroids. 4. Continue nocturnal PAP therapy per home regimen. 5. Continue appropriate DVT prophylaxis. 6. Encourage incentive spirometer use and mobilize patient as tolerated. IMPRESSIONS: 1. Acute on chronic combined respiratory failure Appears secondary to asthma exacerbation precipitated by right upper lobe pneumonia. The patient, at her baseline, requires 5 L/min of supplemental oxygen. She is currently followed on an outpatient basis by Dr[facility] Be[facility] pulmonary medicine. At this time, recommend continuing to wean sup plemental oxygen as tolerated to maintain saturations at or above 90%. The patient will be continued on empiric antibiotics along with scheduled bronchodilators and steroids. She appears to be responding clinically to therapy. 2. Obstructive sleep apnea/super morbid obesity/depression/heart failure with preserved ejection fraction Complicates care, management, recovery and prognosis. Continue home medicationsas indicated. Agree with continuing PAP therapy with naps and nightly. Encourage incentive spirometer use and mobilize patient as tolerated. This note was generated with [employer]ve-[employer] dictation software. It may contain incorrectwords, spelling, and punctuation that were not noted in checking the note beforesigning. HPI Consult Data Date of Consult: 09/04/24 HPI Narrative Reason for Consultation: Acute on chronic respiratory failure HPI Narrative: The patient is a 34-year-old female, with a history as outlined below, who presented to the emergency department on September 03 with worsening dyspnea of approximately 5 days duration. According to the patient, she is currently followed in the [facility] of [facility] a [facility] of severe persistent asthma, chronic hypoxemic respiratory failure with a baselineoxygen requirement of 5 L/min and obstructive sleep apnea. The patient reported a remote smoking history, currently in remission. She is currently unemployed. In addition to her dyspnea, she does report the presence of wheezing, chest tightness and productive cough. She denied any recent sick contact exposure. She has been compliant with her prescribed maintenance inhalers on an outpatient basis. On presentation to the emergency department, the patient was documented to have a low-grade fever and was notably tachycardic and tachypneic. She was otherwisehemodynamically stable. Laboratory evaluation was notable for a white blood cell count of 15,000. Chemistry profile was notable for a bicarbonate of 35 with normal creatinine. Chest x-ray demonstrated the presence of a right upper lobe infiltrate. Lower extremity Doppler study was negative for DVT. The patient was subsequently placed on antimicrobials, bronchodilators and steroids. She was admitted to the medical intensive care unit forovernight observation. This morning, the patient reported that her breathing quality has improved. Heroxygen requirement has been weaned down to 8 L/min via nasal cannula. [facility] Medical History Pneumonia COPD (chronic obstructive pulmonary disease) Environmental allergies Anemia Depression Asthma Medical History no medical history Home Medications ?Medication ?Instructions ?Recorded ?Last Taken ?Type montelukast 10 mg tablet 10 mg PO DAILY 03/13/1808/07 History albuterol sulfate 90 mcg/actuation 1 - 2 puff inhalati on Q4H PRN 09/03/24 Unknown History aerosol inhaler Wheezing bumetanide 1 mg tablet 1 mg PO DAILY 09/03/2409/02 History bupropion HCl 150 mg 24 hr tablet, 150 mg PO DAILY 09/02/24 History extended release cetirizine 10 mg tablet 10 mg PO DAILY 09/03/2408/07 History cyclosporine 0.05 % eye drops in a 1 drp ophthalmic (e ye) BID 09/03/24 Unknown History dropperette famotidine 20 mg tablet 20 mg PO BID PRN stomach ups et 09/03/24 Unknown History ferrous sulfate 325 mg (65 mg 325 mg PO DAILY 09/03/24 09/02/24 History iron) tablet (FeroSul) fluticasone fur. 200 mcg-umeclid 1 ea inhalation DAILY 09/03/24 09/02/24 History 62.5 mcg-vilant 25 mcg inhalat.powder (Trelegy Ellipta) fluticasone propionate 50 1 spray intranasal BID aller gy 09/03/24 Unknown History mcg/actuation nasal symptoms spray,suspension potassium chloride 20 mEq 20 meq PO DAILY 09/03/24 History tablet,extended release(part/cryst) sertraline 50 mg tablet 25 mg PO DAILY 09/03/24 Unkn own History Allergy/AdvReac Type Severity Reaction Status Date / Time No Known Allergies Allergy Verified 09/03/24 14:28 Family History (Updated 09/03/24 @ 18:[address] Jesse Lobo MD) Other Cancer Family History no significant family his Surgical History Hx of knee surgery Hx of section Surgical History no surgical history Social History Smoking Status: Former smoker ROS ROS Narrative 10 systems were reviewed with pertinent positives as noted in the HPI above. Physical Exam Const alert, oriented x3 and no apparent distress Constitutional Narrative: Super morbidly obese. General Appearance: cooperative HEENT normocephalic, head/scalp atraumatic and moist oral mucous membranes Eyes PERRL, EOMs intact bilaterally and conjunctivae normal Neck supple General: trachea midline Chest inspection of chest normal Resp normal respiratory effort Effort and Inspection: able to speak in complete sentences Auscultation: wheezes and diminished lung sounds Cardio regular rate and regular rhythm GI normal to inspection, nondistended, normoactive bowel sounds Extremity General Extremity: edema; Negative for clubbing Skin no rashes or lesions noted Neuro CN's II-XII intact bilaterally, moves all extremities and no focal motor deficits Psych cooperative and affect normal Lab / Micro Data 09/04/24 03:37 09/04/24 03:37 Labs: Laboratory Results - last 24 hr 09/03/24 14:25: WBC 15.0 H, RBC 5.83 H, Hgb 11.8 L, Hct 44.0, MCV 75.5 L, MCH 20.2 L, MCHC 26.8 L, RDW Std Deviation 49.2 H, RDW Coeff of Micha 18.7 H, Plt Count 276, MPV 10.3, Immature Gran % (Auto) 1.200 H, Neut % (Auto) 80.1 H, Lymph% (Auto) 10.9 L, [place] % (Auto) 6.9, Eos % (Auto) 0.7, Baso % (Auto) 0.2, Absolute Neuts (auto) 12.0 H, Absolute Lymphs (auto) 1.63, Nucleated RBC % 0.5 09/03/24 14:29: Sodium 142, Potassium 4.4, Chloride 99, Carbon Dioxide 35.6 H, Anion Gap 8, BUN 11,Creatinine 0.72, Estim Creat Clear Calc 220.04, Est GFR (MDRD) Non-Af 114, BUN/Creatinine Ratio 15.3, Glucose 102 H, Lactic Acid < 1.0, Calcium 8.7, Total Bilirubin 0.24, AST 33 H, ALT 29, Alkaline Phosphatase 98, Total Protein 6.1, Albumin 4.0, Globulin 2.1 L, Albumin/Globulin Ratio 1.9 09/04/24 03:37: WBC 14.9 H, RBC 5.29, Hgb 10.7 L, Hct 40.1, MCV 75.8 L, MCH 20.2L, MCHC 26.7 L, RDWStd Deviation 48.8 H, RDW Coeff of Micha 18.0 H, Plt Count 236, MPV 9.8, Immature Gran % (Auto) 1.100H, Neut % (Auto) 90.6 H, Lymph % (Auto) 6.4 L, [place] % (Auto) 1.7, Eos % (Auto) 0.0, Baso % (Auto) 0.2, Absolute Neuts (auto) 13.5 H, Absolute Lymphs (auto) 0.95, Nucleated RBC % 0.3, Sodium 141, Potassium 5.1, Chloride 100, Carbon Dioxide 33.9 H, Anion Gap 7, BUN 10, Creatinine 0.63 L, Estim Creat Clear Calc 250.02 H, Est GFR (MDRD) Non-Af 121, BUN/Creatinine Ratio 15.3, Glucose 192 H, Calcium 8.5 Micro: Microbiology 09/03/24 16:02 Mucosa - Nose SARS-CoV-2, Influenza & RSV (PCR) - Final ABG Data ABG results: ABG 09/03/24 09/03/24 15:39 17:23 Specimen Type SILVINO SILVINO Sample Site Not entered Not entered O2 % 13.0 70.0 VBG pH 7.30 L 7.33 VBG pO2 30 71 H VBG HCO3 41 H 39 H VBG Total CO2 43 H 42 H VBG O2 Sat (Calc) 47 L 92 H VBG Base Excess 14 H 13 H POC Mix VBG pCO2 Pt Tmp 83.3 H* 74.7 H* O2 Delivery Device Cannula BiPAP Crit Call To/Read Back Yes Yes Blood Gas Notified Whom ug ug Blood Gas Notified Time 15:40:35 17:24:21 Imaging Radiology Impression Venous Doppler Study 09/03/24 15:33 Interpretation Summary Deep veins of the left lower extremity are patent and compressible segmentally. There is no evidence of left lower extremity deep vein thrombosis. The left great saphenous vein appears patent andcompressible segmentally. Limited study Ordering Physician: Randy Bailey Referring Physician: Louann Bermeo Performed By: Srinath Chahal RVT Chest X-Ray 09/03/24 17:00 IMPRESSION: 1. Findings compatible with RIGHT upper lobe pneumonia. Follow-up to radiographic resolution. 2. Additional description as above. Reading Location: [facility] Charges/Coding Visit Charges Inpatient E&M: 62294 Init Hosp L3 09/04/24 0937 Cosigner Signature (if applicable): CC: CHILD STUDY TEAM DIRECTOR-C Louann Bermeo~ Signed [facility]04-30-2025 Progress note [facility] Medical Records Department [address] [place] [address] Progress Note - Hospitalist 09/04/24 0716 MR#: [id number] Acct: [id number] Name: TORRIE MARTINEZ Rep #:[id number] : 1990 34 From: Evans Carter MD PCP: OMAR Jones Status:ADM IN Location: ICU CVICU 2-1 Reason for Visit Reason for Visit: Diagnoses Pneumonia, unspecified organism (09/03/24) Subjective Subjective Patient is a 34-year-old lady with past medical history significant for chronic congestive heart failure, morbid obesity with BMI of 59.6 who presented with shortness of breath and hypoxia. Imaging studies obtained demonstrated right upper lobe pneumonia. An assessment of acute on chronic hypoxic and hypercapnicrespiratory failure made placed on BiPAP admitted to the intensive care unit forfurther management Objective Data Objective Data Vital Signs: Vital Signs Temp Pulse Resp BP Pulse Ox O2 Del Method O2 Flow Rate 97.5 F L 77 16 123/87 H 99 High Flow 13 09/04/24 06:00 09/04/24 07:00 09/04/24 07:00 09/04/24 07:00 09/04/24 07:00 09/04/24 07:00 09/04/24 07:00 FiO2 55 09/04/24 04:00 Oxygen Flow Rate (L/min) 13 Oxygen Delivery Method High Flow Weight: 199.2 kg Body Mass Index (BMI) 59.4 Intake & Output: Intake and Output for Last 24 Hours 09/02/24 09/03/24 09/04/24 23:59 23:59 23:59 Intake Total 425 / 425 Output Total 850 / 850 Balance -850 / -850 Lab / Micro Data 09/04/24 03:37 09/04/24 03:37 Labs: Laboratory Results - last 24 hr 09/03/24 14:25: WBC 15.0 H, RBC 5.83 H, Hgb 11.8 L, Hct 44.0, MCV 75.5 L, MCH 20.2 L, MCHC 26.8 L, RDW Std Deviation 49.2 H, RDW Coeff of Micha 18.7 H, Plt Count 276, MPV 10.3, Immature Gran % (Auto) 1.200 H, Neut % (Auto) 80.1 H, Lymph% (Auto) 10.9 L, [place] % (Auto) 6.9, Eos % (Auto) 0.7, Baso % (Auto) 0.2, Absolute Neuts (auto) 12.0 H, Absolute Lymphs (auto) 1.63, Nucleated RBC % 0.5 09/03/24 14:29: Sodium 142, Potassium 4.4, Chloride 99, Carbon Dioxide 35.6 H, Anion Gap 8, BUN 11,Creatinine 0.72, Estim Creat Clear Calc 220.04, Est GFR (MDRD) Non-Af 114, BUN/Creatinine Ratio 15.3, Glucose 102 H, Lactic Acid < 1.0, Calcium 8.7, Total Bilirubin 0.24, AST 33 H, ALT 29, Alkaline Phosphatase 98, Total Protein 6.1, Albumin 4.0, Globulin 2.1 L, Albumin/Globulin Ratio 1.9 09/04/24 03:37: WBC 14.9 H, RBC 5.29, Hgb 10.7 L, Hct 40.1, MCV 75.8 L, MCH 20.2L, MCHC 26.7 L, RDWStd Deviation 48.8 H, RDW Coeff of Micha 18.0 H, Plt Count 236, MPV 9.8, Immature Gran % (Auto) 1.100H, Neut % (Auto) 90.6 H, Lymph % (Auto) 6.4 L, [place] % (Auto) 1.7, Eos % (Auto) 0.0, Baso % (Auto) 0.2, Absolute Neuts (auto) 13.5 H, Absolute Lymphs (auto) 0.95, Nucleated RBC % 0.3, Sodium 141, Potassium 5.1, Chloride 100, Carbon Dioxide 33.9 H, Anion Gap 7, BUN 10, Creatinine 0.63 L, Estim Creat Clear Calc 250.02 H, Est GFR (MDRD) Non-Af 121, BUN/Creatinine Ratio 15.3, Glucose 192 H, Calcium 8.5 Micro: Microbiology 09/03/24 16:02 Mucosa - Nose SARS-CoV-2, Influenza & RSV (PCR) - Final ABG Data ABG results: ABG 09/03/24 09/03/24 15:39 17:23 Specimen Type SILVINO SILVINO Sample Site Not entered Not entered O2 % 13.0 70.0 VBG pH 7.30 L 7.33 VBG pO2 30 71 H VBG HCO3 41 H 39 H VBG Total CO2 43 H 42 H VBG O2 Sat (Calc) 47 L 92 H VBG Base Excess 14 H 13 H POC Mix VBG pCO2 Pt Tmp 83.3 H* 74.7 H* O2 Delivery Device Cannula BiPAP Crit Call To/Read Back Yes Yes Blood Gas Notified Whom ug ug Blood Gas Notified Time 15:40:35 17:24:21 Radiography Diagnostic Testing: Radiology Impression Venous Doppler Study 09/03/24 15:33 Interpretation Summary Deep veins of the left lower extremity are patent and compressible segmentally. There is no evidence of left lower extremity deep vein thrombosis. The left great saphenous vein appears patent andcompressible segmentally. Limited study Ordering Physician: Randy Bailey Referring Physician: Louann Bermeo Performed By: Srinath Chahal RVT Chest X-Ray 09/03/24 17:00 IMPRESSION: 1. Findings compatible with RIGHT upper lobe pneumonia. Follow-up to radiographic resolution. 2. Additional description as above. Reading Location: [facility] Physical Exam Narrative GENERAL: Cooperative HEENT: Atraumatic; normocephalic EYES; Anicteric, Normal Conjunctiva NECK; supple, normal thyroid, RESPIRATORY: Diminished to auscultation CARDIOVASCULAR: Regular S1 S2, GI: soft, normoactive bowel sounds, : No Renal angle tenderness; EXTREMITIES: No edema, no clubbing, MUSCULOSKELETAL: no muscle wasting NEURO: Awake; no lateralizing signs. SKIN: Extensive vitiligo PSYCH; Flat affect Assessment & Plan Assessment/Plan (1) Right upper lobe pneumonia: PLAN: Plan Patient is a 34-year-old lady with past medical history significant for chronic congestive heart failure, morbid obesity with BMI of 59.6 who presented with shortness of breath and hypoxia. Imaging studies obtained demonstrated right upper lobe pneumonia. An assessment of acute on chronic hypoxic and hypercapnicrespiratory failure made placed on BiPAP admitted to the intensive care unit forfurther management 1. Acute on chronic hypoxic and hypercapnic respiratory failure ? Due to combination of pneumonia, asthma exacerbation as well as suspected CHF exacerbation. Patient was placed on noninvasive ventilation with BiPAP with oxygen titrated to keep saturation greater than 90 2. Pneumonia - Suspected to be secondary to streptococcal pneumonia, Blood and sputum cultures sent. Patient placed on Rocephin and Zithromax and placed on oxygen titrated to keep Pulse Ox greater than 90. Patient presented with acute hypoxicand hypercapnic respiratory failure patient was placed on noninvasive v entilation BiPAP as discussed above 3. Asthma with acute exacerbation ? In addition to above management patient was placed on systemic steroids and bronchodilator treatments 4. Class III obesity with BMI of 59.6 ? Complicating care weight loss advised 5. Acute on chronic congestive heart failure with preserved ejection for ? Echo obtained on 01/16/2018 demonstrated 60%. Patient placed on diuretic therapy in addition to strict input and output, fluid restriction Daily I's and O's and repeat echo ordered for EF assessment 6. Depression with anxiety ? Patient is on sertraline continue 7. Allergic rhinitis ? Patient is on montelukast did continue 8. Anemia ? Secondary to chronic disorder Red cell indices demonstrated microcytic anemia with MCV of 75.8. Monitoring H&H and transfuse if patient becomes symptomatic or hemoglobin falls below 7. Also ordered iron studies 9. Hyperglycemia ? Suspected to be secondary to patient receiving systemic steroid however ordered hemoglobin A1c 10. DVT prophylaxis ? On enoxaparin Charges/Coding Visit Charges Inpatient E&M: 83131 Subs Hosp L3 09/04/24 0808 Cosigner Signature (if applicable): CC: ~ Signed [facility]04-29-2025 History and physical note Author Jesse Lobo [facility] Note Date/Time September 03, 2024 7:5 9pm [facility] Medical Records Department [address] [place] [address] H&P Exam - Hospitalist 09/03/24 1800 MR#: [id number] Acct: [id number] Name: TORRIE MARTINEZ Rep #:[id number] : 1990 34 From: Jesse clark MD PCP: Louann Bermeo CHILD STUDY TEAM DIRECTOR-C Status:ADM IN Location: ICU CVICU20 2-1 HPI - General General Date of Admission: 09/03/24 HPI Narrative TORRIE MARTINEZ, is a 34 F who presents to the hospital with increasing shortnessof breath. She has a history of asthma and has noticed that over the last couple of days that she was having increased shortness of breath with a slight increase in her cough. Today she noticed that she had some fevers and with her shortness of breath and upper respiratory symptoms she presented to the hospital. She was found to be 60% when laying back on her home 5 L nasal cannula and ABG demonstrated pH of 7.2 and a VBG PCO2 low of 83 so she was placed on BiPAP with subsequent improvement of her pCO2 to 74 however her oxygensaturations were sitting at 94% on 60% FiO2. Chest x-ray demonstrates a right upper lobe consolidation and with her leukocytosis and fever consistent with pneumonia. [facility] Medical History Pneumonia COPD (chronic obstructive pulmonary disease) Environmental allergies Anemia Depression Asthma Medical History no medical history Home Medications ?Medication ?Instructions ?Recorded ?Last Taken ?Type montelukast 10 mg tablet 10 mg PO DAILY 03/13/1808/07 History albuterol sulfate 90 mcg/actuation 1 - 2 puff inhalati on Q4H PRN 09/03/24 Unknown History aerosol inhaler Wheezing bumetanide 1 mg tablet 1 mg PO DAILY 09/03/2409/02 History bupropion HCl 150 mg 24 hr tablet, 150 mg PO DAILY 09/02/24 History extended release cetirizine 10 mg tablet 10 mg PO DAILY 09/03/2408/07 History cyclosporine 0.05 % eye drops in a 1 drp ophthalmic (e ye) BID 09/03/24 Unknown History dropperette famotidine 20 mg tablet 20 mg PO BID PRN stomach ups et 09/03/24 Unknown History ferrous sulfate 325 mg (65 mg 325 mg PO DAILY 09/03/24 09/02/24 History iron) tablet (FeroSul) fluticasone fur. 200 mcg-umeclid 1 ea inhalation DAILY 09/03/24 09/02/24 History 62.5 mcg-vilant 25 mcg inhalat.powder (Trelegy Ellipta) fluticasone propionate 50 1 spray intranasal BID aller gy 09/03/24 Unknown History mcg/actuation nasal symptoms spray,suspension potassium chloride 20 mEq 20 meq PO DAILY 09/03/24 History tablet,extended release(part/cryst) sertraline 50 mg tablet 25 mg PO DAILY 09/03/24 Unkn own History Allergy/AdvReac Type Severity Reaction Status Date / Time No Known Allergies Allergy Verified 09/03/24 14:28 Family History (Updated 09/03/24 @ 18:[address] Jesse Lobo MD) Other Cancer Family History no significant family his Surgical History Hx of knee surgery Hx of section Surgical History no surgical history Social History Smoking Status: Former smoker ROS Constitutional Constitutional: Reports chills and fever(s); Denies fatigue or malaise Eyes Eyes: Denies blurry vision ENT HEENT: Denies headache(s) or nasal discharge Cardiovascular Cardiovascular: Denies chest pain, dyspnea on exertion or syncope Respiratory/Chest Respiratory/Chest: Reports cough, shortness of breath at rest and shortness of breath with exertion Gastrointestinal Gastrointestinal: Denies constipation, diarrhea, nausea or vomiting Genitourinary Genitourinary: Denies dysuria Neurologic Neurologic: Denies focal weakness, numbness or tremor(s) Psychiatric Psychiatric: Denies anxiety or depression Vital Signs Vital Signs Vital Signs: 09/03/24 14:21 09/03/24 14:25 09/03/24 14:28 Temperature 98.7 F 98.7 F Temperature Source Oral Oral Pulse Rate 137 H 135 H Respiratory Rate 28 H 29 H Respiratory Effort Short of Breath Labored Respiratory Depth Shallow Respiratory Pattern Tachypnea Blood Pressure 156/139 H 168/96 H Blood Pressure Mean 144 120 Pulse Ox 92 96 Oxygen Delivery Method High Flow High Flow High Flow Oxygen Flow Rate (L/min) 15 13 13 Fraction of Inspired Oxygen (FIO2) 09/03/24 15:14 09/03/24 15:15 09/03/24 15:23 Temperature 99.4 F H Temperature Source Oral Pulse Rate 130 H 131 H 131 H Respiratory Rate 23 H 23 H 25 H Respiratory Effort Respiratory Depth Respiratory Pattern Blood Pressure 155/80 H 155/80 H Blood Pressure Mean 93 105 Pulse Ox 91 90 92 Oxygen Delivery Method High Flow Oxygen Flow Rate (L/min) 13 Fraction of Inspired Oxygen (FIO2) 09/03/24 15:30 09/03/24 15:45 09/03/24 16:00 Temperature 100.7 F H Temperature Source Axillary Pulse Rate 132 H 131 H 124 H Respiratory Rate 27 H 22 H 24 H Respiratory Effort Respiratory Depth Respiratory Pattern Blood Pressure 139/83 H 133/106 H 142/114 H Blood Pressure Mean 101 113 123 Pulse Ox 93 97 98 Oxygen Delivery Method Bi-pap Oxygen Flow Rate (L/min) Fraction of Inspired Oxygen (FIO2) 70 09/03/24 16:00 09/03/24 16:03 09/03/24 16:03 Temperature Temperature Source Pulse Rate 129 H 126 H 126 H Respiratory Rate 26 H 30 H 30 H Respiratory Effort Respiratory Depth Respiratory Pattern Blood Pressure 142/114 H Blood Pressure Mean 122 Pulse Ox 87 98 Oxygen Delivery Method Oxygen Flow Rate (L/min) Fraction of Inspired Oxygen (FIO2) 70 09/03/24 16:15 09/03/24 16:30 09/03/24 16:45 Temperature Temperature Source Pulse Rate 126 H 127 H 126 H Respiratory Rate 25 H 32 H 30 H Respiratory Effort Respiratory Depth Respiratory Pattern Blood Pressure 128/85 H 131/94 H 152/129 H Blood Pressure Mean 96 99 137 Pulse Ox 98 100 98 Oxygen Delivery Method Oxygen Flow Rate (L/min) Fraction of Inspired Oxygen (FIO2) 09/03/24 17:00 09/03/24 17:00 09/03/24 17:15 Temperature 100.4 F H Temperature Source Oral Pulse Rate 126 H 132 H Respiratory Rate 31 H 26 H Respiratory Effort Respiratory Depth Respiratory Pattern Blood Pressure 152/129 H 146/94 H Blood Pressure Mean 136 105 Pulse Ox 98 97 Oxygen Delivery Method Bi-pap Oxygen Flow Rate (L/min) Fraction of Inspired Oxygen (FIO2) 70 60 09/03/24 17:17 Temperature 100.4 F H Temperature Source Pulse Rate 127 H Respiratory Rate 20 H Respiratory Effort Respiratory Depth Respiratory Pattern Blood Pressure 146/94 H Blood Pressure Mean 111 Pulse Ox 96 Oxygen Delivery Method Oxygen Flow Rate (L/min) Fraction of Inspired Oxygen (FIO2) Weight Weight: 443 lb 2.066 oz Body Mass Index (BMI) 60.0 Physical Exam Narrative General: Alert, Oriented x3, Cooperative, moderate respiratory distress HEENT: Atraumatic, PERRLA, EOMI, Normocephalic Oral: Moist Mucosa Neck: Supple, No JVD Lungs: Diminished, Normal air movement, rhonchi, wheeze, No rales, tachypneic Cardiovascular: Tachycardic, Regular Rhythm, Normal S1, Normal S2, No murmurs Abdomen: Soft, Non Tender, Non-Distended, No Hepato-splenomegaly Extremities: Left lower extremity edema, Capillary Refill Less than 3 Seconds Skin: No rashes, No breakdown Musculoskeletal: No Tenderness to Palpation of Joints or Extremities Neurological: No focal neurological deficits, Motor Exam 5/5 strength throughout, Sensory exam intact to light touch and pain Psych/Mental Status: Flat Results Lab / Micro Data 09/03/24 14:25 09/03/24 14:29 Labs: Laboratory Results - last 24 hr 09/03/24 14:25: WBC 15.0 H, RBC 5.83 H, Hgb 11.8 L, Hct 44.0, MCV 75.5 L, MCH 20.2 L, MCHC 26.8 L, RDW Std Deviation 49.2 H, RDW Coeff of Micha 18.7 H, Plt Count 276, MPV 10.3, Immature Gran % (Auto) 1.200 H, Neut % (Auto) 80.1 H, Lymph% (Auto) 10.9 L, [place] % (Auto) 6.9, Eos % (Auto) 0.7, Baso % (Auto) 0.2, Absolute Neuts (auto) 12.0 H, Absolute Lymphs (auto) 1.63, Nucleated RBC % 0.5 09/03/24 14:29: Sodium 142, Potassium 4.4, Chloride 99, Carbon Dioxide 35.6 H, Anion Gap 8, BUN 11, Creatinine 0.72, Estim Creat Clear Calc 220.04, Est GFR (MDRD) Non-Af 114, BUN/Creatinine Ratio 15.3, Glucose 102 H, Lactic Acid < 1.0, Calcium 8.7, Total Bilirubin 0.24, AST 33 H, ALT 29, Alkaline Phosphatase 98, Total Protein 6.1, Albumin 4.0, Globulin 2.1 L, Albumin/Globulin Ratio 1.9 Micro: Microbiology 09/03/24 16:02 Mucosa - Nose SARS-CoV-2, Influenza & RSV (PCR) - Final ABG Data ABG results: ABG 09/03/24 09/03/24 15:39 17:23 Specimen Type SILVINO SILVINO Sample Site Not entered Not entered O2 % 13.0 70.0 VBG pH 7.30 L 7.33 VBG pO2 30 71 H VBG HCO3 41 H 39 H VBG Total CO2 43 H 42 H VBG O2 Sat (Calc) 47 L 92 H VBG Base Excess 14 H 13 H POC Mix VBG pCO2 Pt Tmp 83.3 H* 74.7 H* O2 Delivery Device Cannula BiPAP Crit Call To/Read Back Yes Yes Blood Gas Notified Whom ug ug Blood Gas Notified Time 15:40:35 17:24:21 Imaging Radiology Impression Venous Doppler Study 09/03/24 15:33 Interpretation Summary Deep veins of the left lower extremity are patent and compressible segmentally. There is no evidence of left lower extremity deep vein thrombosis. The left great saphenous vein appears patent andcompressible segmentally. Limited study Ordering Physician: Randy Bailey Referring Physician: Louann Bermeo Performed By: Srinath Chahal, T Chest X-Ray 09/03/24 17:00 IMPRESSION: 1. Findings compatible with RIGHT upper lobe pneumonia. Follow-up to radiographic resolution. 2. Additional description as above. Reading Location: [facility] Assessment & Plan Assessment/Plan (1) Right upper lobe pneumonia: PLAN: Plan 1. Acute on chronic hypoxic and acute hypercapnic respiratory failure secondaryto right upper lobe pneumonia with an asthma exacerbation with respiratory acidosis ? Continue with antibiotics ? She had to be advanced to BiPAP which is new for her during the day, she does have sleep apnea at baseline as well as heart failure ? Only able to obtain a VBG which was acidotic on admission but the pCO2 does appear to be improving with BiPAP therapy ? Her situation is complicated by her body habitus and her morbid obesity with aBMI of 60.1 ? Will admit to the ICU for observation overnight and consult pulmonology ? She is not septic based on insurance ? Lactic acid is unremarkable, but will hold off of IV fluids secondary to her history of heart failure. Her last echo was in 2018 at this institution with anEF of 60% ? Continue with steroids and breathing treatments 2. CHF unknown type ? While she is not receiving IV fluids we will also hold her diuretic ? This is likely related to her obstructive sleep apnea and right-sided failure however cannot be sure without prior echocardiograms 3. Iron deficiency anemia ? Stable ? Continue with her iron supplementation 4. Anxiety/depression ? Stable ? Continue with her home medications DVT: Lovenox Charges/Coding Visit Charges Inpatient E&M: 39053 Init Hosp L3 09/03/241930 <Electronically signed by Jesse Lobo MD> Cosigner Signature (if applicable): CC: CHILD STUDY TEAM DIRECTOR-C Louann Bermeo; Dr. Jesse Lobo MD~ Signed ADDENDUM by Dr. Jesse Lobo MD on 09/03/24 at 1959 Addendum Left lower extremity was little bit swollen and painful, venous Doppler in the ER was negative for clot 09/03/241958<Electronically signed by Jesse Lobo MD> Cosigner Signature (if applicable): cc: CHILD STUDY TEAM DIRECTOR-C Louann Bermeo; Dr. Jesse Lobo MD ~* Signed [facility] Work Phone: [phone] 551-661904-29-2025 History and physical note [facility] Medical Records Department [address] [place] [address] H&P Exam - Hospitalist 09/03/24 1800 MR#: [id number] Acct: [id number] Name: TORRIE MARTINEZ Rep #:[id number] : 1990 34 From: Jesse clark MD PCP: Louann Bermeo, NATHANIEL-C Status:ADM IN Location: ICU CVICU20 2-1 HPI - General General Date of Admission: 09/03/24 HPI Narrative TORRIE MARTINEZ, is a 34 F who presents to the hospital with increasing shortnessof breath. She has a history of asthma and has noticed that over the last couple of days that she was having increased shortness of breath with a slight increase in her cough. Today she noticed that she had some fevers and with her shortness of breath and upper respiratory symptoms she presented to the hospital. She was found to be 60% when laying back on her home 5 L nasal cannula and ABG demonstrated pH of 7.2 jair VBG PCO2 low of 83 so she was placed on BiPAP with subsequent improvement of her pCO2 to 74 however her oxygensaturations were sitting at 94% on 60% FiO2. Chest x-ray demonstrates a right upper lobe consolidation and with her leukocytosis and fever consistent with pneumonia. [facility] Medical History Pneumonia COPD (chronic obstructive pulmonary disease) Environmental allergies Anemia Depression Asthma Medical History no medical history Home Medications ?Medication ?Instructions ?Recorded ?Last Taken ?Type montelukast 10 mg tablet 10 mg PO DAILY 03/13/1808/07 History albuterol sulfate 90 mcg/actuation 1 - 2 puff inhalati on Q4H PRN 09/03/24 Unknown History aerosol inhaler Wheezing bumetanide 1 mg tablet 1 mg PO DAILY 09/03/2409/02 History bupropion HCl 150 mg 24 hr tablet, 150 mg PO DAILY 09/02/24 History extended release cetirizine 10 mg tablet 10 mg PO DAILY 09/03/24 04/12/30 History cyclosporine 0.05 % eye drops in a 1 drp ophthalmic (e ye) BID 09/03/24 Unknown History dropperette famotidine 20 mg tablet 20 mg PO BID PRN stomach ups et 09/03/24 Unknown History ferrous sulfate 325 mg (65 mg 325 mg PO DAILY 09/03/24 09/02/24 History iron) tablet (FeroSul) fluticasone fur. 200 mcg-umeclid 1 ea inhalation DAILY 09/03/24 09/02/24 History 62.5 mcg-vilant 25 mcg inhalat.powder (Trelegy Ellipta) fluticasone propionate 50 1 spray intranasal BID aller gy 09/03/24 Unknown History mcg/actuation nasal symptoms spray,suspension potassium chloride 20 mEq 20 meq PO DAILY 09/03/24 History tablet,extended release(part/cryst) sertraline 50 mg tablet 25 mg PO DAILY 09/03/24 Unkn own History Allergy/AdvReac Type Severity Reaction Status Date / Time No Known Allergies Allergy Verified 09/03/24 14:28 Family History (Updated 09/03/24 @ 18:[address] Jesse Lobo MD) Other Cancer Family History no significant family his Surgical History Hx of knee surgery Hx of section Surgical History no surgical history Social History Smoking Status: Former smoker ROS Constitutional Constitutional: Reports chills and fever(s); Denies fatigue or malaise Eyes Eyes: Denies blurry vision ENT HEENT: Denies headache(s) or nasal discharge Cardiovascular Cardiovascular: Denies chest pain, dyspnea on exertion or syncope Respiratory/Chest Respiratory/Chest: Reports cough, shortness of breath at rest and shortness of breath with exertion Gastrointestinal Gastrointestinal: Denies constipation, diarrhea, nausea or vomiting Genitourinary Genitourinary: Denies dysuria Neurologic Neurologic: Denies focal weakness, numbness or tremor(s) Psychiatric Psychiatric: Denies anxiety or depression Vital Signs Vital Signs Vital Signs: 09/03/24 14:21 09/03/24 14:25 09/03/24 14:28 Temperature 98.7 F 98.7 F Temperature Source Oral Oral Pulse Rate 137 H 135 H Respiratory Rate 28 H 29 H Respiratory Effort Short of Breath Labored Respiratory Depth Shallow Respiratory Pattern Tachypnea Blood Pressure 156/139 H 168/96 H Blood Pressure Mean 144 120 Pulse Ox 92 96 Oxygen Delivery Method High Flow High Flow High Flow Oxygen Flow Rate (L/min) 15 13 13 Fraction of Inspired Oxygen (FIO2) 09/03/24 15:14 09/03/24 15:15 09/03/24 15:23 Temperature 99.4 F H Temperature Source Oral Pulse Rate 130 H 131 H 131 H Respiratory Rate 23 H 23 H 25 H Respiratory Effort Respiratory Depth Respiratory Pattern Blood Pressure 155/80 H 155/80 H Blood Pressure Mean 93 105 Pulse Ox 91 90 92 Oxygen Delivery Method High Flow Oxygen Flow Rate (L/min) 13 Fraction of Inspired Oxygen (FIO2) 09/03/24 15:30 09/03/24 15:45 09/03/24 16:00 Temperature 100.7 F H Temperature Source Axillary Pulse Rate 132 H 131 H 124 H Respiratory Rate 27 H 22 H 24 H Respiratory Effort Respiratory Depth Respiratory Pattern Blood Pressure 139/83 H 133/106 H 142/114 H Blood Pressure Mean 101 113 123 Pulse Ox 93 97 98 Oxygen Delivery Method Bi-pap Oxygen Flow Rate (L/min) Fraction of Inspired Oxygen (FIO2) 70 09/03/24 16:00 09/03/24 16:03 09/03/24 16:03 Temperature Temperature Source Pulse Rate 129 H 126 H 126 H Respiratory Rate 26 H 30 H 30 H Respiratory Effort Respiratory Depth Respiratory Pattern Blood Pressure 142/114 H Blood Pressure Mean 122 Pulse Ox 87 98 Oxygen Delivery Method Oxygen Flow Rate (L/min) Fraction of Inspired Oxygen (FIO2) 70 09/03/24 16:15 09/03/24 16:30 09/03/24 16:45 Temperature Temperature Source Pulse Rate 126 H 127 H 126 H Respiratory Rate 25 H 32 H 30 H Respiratory Effort Respiratory Depth Respiratory Pattern Blood Pressure 128/85 H 131/94 H 152/129 H Blood Pressure Mean 96 99 137 Pulse Ox 98 100 98 Oxygen Delivery Method Oxygen Flow Rate (L/min) Fraction of Inspired Oxygen (FIO2) 09/03/24 17:00 09/03/24 17:00 09/03/24 17:15 Temperature 100.4 F H Temperature Source Oral Pulse Rate 126 H 132 H Respiratory Rate 31 H 26 H Respiratory Effort Respiratory Depth Respiratory Pattern Blood Pressure 152/129 H 146/94 H Blood Pressure Mean 136 105 Pulse Ox 98 97 Oxygen Delivery Method Bi-pap Oxygen Flow Rate (L/min) Fraction of Inspired Oxygen (FIO2) 70 60 09/03/24 17:17 Temperature 100.4 F H Temperature Source Pulse Rate 127 H Respiratory Rate 20 H Respiratory Effort Respiratory Depth Respiratory Pattern Blood Pressure 146/94 H Blood Pressure Mean 111 Pulse Ox 96 Oxygen Delivery Method Oxygen Flow Rate (L/min) Fraction of Inspired Oxygen (FIO2) Weight Weight: 443 lb 2.066 oz Body Mass Index (BMI) 60.0 Physical Exam Narrative General: Alert, Oriented x3, Cooperative, moderate respiratory distress HEENT: Atraumatic, PERRLA, EOMI, Normocephalic Oral: Moist Mucosa Neck: Supple, No JVD Lungs: Diminished, Normal air movement, rhonchi, wheeze, No rales, tachypneic Cardiovascular: Tachycardic, Regular Rhythm, Normal S1, Normal S2, No murmurs Abdomen: Soft, Non Tender, Non-Distended, No Hepato-splenomegaly Extremities: Left lower extremity edema, Capillary Refill Less than 3 Seconds Skin: No rashes, No breakdown Musculoskeletal: No Tenderness to Palpation of Joints or Extremities Neurological: No focal neurological deficits, Motor Exam 5/5 strength throughout, Sensory exam intact to light touch and pain Psych/Mental Status: Flat Results Lab / Micro Data 09/03/24 14:25 09/03/24 14:29 Labs: Laboratory Results - last 24 hr 09/03/24 14:25: WBC 15.0 H, RBC 5.83 H, Hgb 11.8 L, Hct 44.0, MCV 75.5 L, MCH 20.2 L, MCHC 26.8 L, RDW Std Deviation 49.2 H, RDW Coeff of Micha 18.7 H, Plt Count 276, MPV 10.3, Immature Gran % (Auto) 1.200 H, Neut % (Auto) 80.1 H, Lymph% (Auto) 10.9 L, [place] % (Auto) 6.9, Eos % (Auto) 0.7, Baso % (Auto) 0.2, Absolute Neuts (auto) 12.0 H, Absolute Lymphs (auto) 1.63, Nucleated RBC % 0.5 09/03/24 14:29: Sodium 142, Potassium 4.4, Chloride 99, Carbon Dioxide 35.6 H, Anion Gap 8, BUN 11,Creatinine 0.72, Estim Creat Clear Calc 220.04, Est GFR (MDRD) Non-Af 114, BUN/Creatinine Ratio 15.3, Glucose 102 H, Lactic Acid < 1.0, Calcium 8.7, Total Bilirubin 0.24, AST 33 H, ALT 29, Alkaline Phosphatase 98, Total Protein 6.1, Albumin 4.0, Globulin 2.1 L, Albumin/Globulin Ratio 1.9 Micro: Microbiology 09/03/24 16:02 Mucosa - Nose SARS-CoV-2, Influenza & RSV (PCR) - Final ABG Data ABG results: ABG 09/03/24 09/03/24 15:39 17:23 Specimen Type SILVINO SILVINO Sample Site Not entered Not entered O2 % 13.0 70.0 VBG pH 7.30 L 7.33 VBG pO2 30 71 H VBG HCO3 41 H 39 H VBG Total CO2 43 H 42 H VBG O2 Sat (Calc) 47 L 92 H VBG Base Excess 14 H 13 H POC Mix VBG pCO2 Pt Tmp 83.3 H* 74.7 H* O2 Delivery Device Cannula BiPAP Crit Call To/Read Back Yes Yes Blood Gas Notified Whom ug ug Blood Gas Notified Time 15:40:35 17:24:21 Imaging Radiology Impression Venous Doppler Study 09/03/24 15:33 Interpretation Summary Deep veins of the left lower extremity are patent and compressible segmentally. There is no evidence of left lower extremity deep vein thrombosis. The left great saphenous vein appears patent andcompressible segmentally. Limited study Ordering Physician: Randy Bailey Referring Physician: Louann Bermeo Performed By: Srinath Chahal RVT Chest X-Ray 09/03/24 17:00 IMPRESSION: 1. Findings compatible with RIGHT upper lobe pneumonia. Follow-up to radiographic resolution. 2. Additional description as above. Reading Location: [facility] Assessment & Plan Assessment/Plan (1) Right upper lobe pneumonia: PLAN: Plan 1. Acute on chronic hypoxic and acute hypercapnic respiratory failure secondaryto right upper lobe pneumonia with an asthma exacerbation with respiratory acidosis ? Continue with antibiotics ? She had to be advanced to BiPAP which is new for her during the day, she does have sleep apnea atbaseline as well as heart failure ? Only able to obtain a VBG which was acidotic on admission but the pCO2 does appear to be improving with BiPAP therapy ? Her situation is complicated by her body habitus and her morbid obesity with aBMI of 60.1 ? Will admit to the ICU for observation overnight and consult pulmonology ? She is not septic based on insurance ? Lactic acid is unremarkable, but will hold off of IV fluids secondary to her history of heart failure. Her last echo was in 2018 at this institution with anEF of 60% ? Continue with steroids and breathing treatments 2. CHF unknown type ? While she is not receiving IV fluids we will also hold her diuretic ? This is likely related to her obstructive sleep apnea and right-sided failure however cannot be sure without prior echocardiograms 3. Iron deficiency anemia ? Stable ? Continue with her iron supplementation 4. Anxiety/depression ? Stable ? Continue with her home medications DVT: Lovenox Charges/Coding Visit Charges Inpatient E&M: 56220 Init Hosp L3 09/03/241930 Cosigner Signature (if applicable): CC: CHILD STUDY TEAM DIRECTOR-C Louann Bermeo; Dr. Jesse Lobo MD~ Signed ADDENDUM by Dr. Jesse Lobo MD on 09/03/24 at 1958 Addendum Left lower extremity was little bit swollen and painful, venous Doppler in the ER was negative for clot 09/03/241958 Cosigner Signature (if applicable): cc: CHILD STUDY TEAM DIRECTOR-[place] Bermeo; Dr. Jesse Lobo MD ~* Signed [facility]04-29-2025 Discharge summary Author Randy Bailey [facility] Note Date/Time September 03, 2024 5:3 7pm [facility] Medical Records Department [address] [place] [address] Emergency Department Summary 09/03/24 MR#: [id number] Acct: [id number] Name: TORRIE MARTINEZ Rep #:[id number] : 1990 34 From: Randy Bailey MD PCP: OMAR Jones Status:REG ER Location: ED HPI History of Present Illness Chief Complaint: Shortness of Breath Detail of Chief Complaint: Shortness of breath and upper respiratory symptoms Informant: patient, family and EMS (Pulse ox was 60% when patient was supine.) Onset/Context/Timing Onset: Days Context: Gradual Onset Timing: Continuous Quality: Dyspnea, [place] exertion, orthopnea, infectious symptoms Location: Respiratory Current Severity: Moderate Maximum Severity: Severe Worsened by: Movement and supine position Relieved by: Nothing Associated Symptoms Associated Symptoms: Left leg pain that started today Narrative Narrative: Patient is a 34-year-old female with history of obstructive sleep apnea, congestive heart failure, lymphedema, chronic respiratory failure on 5 L of oxygen by nasal cannula. She is seen by Dr. Holcomb at the [facility]. Shehad recent pulmonary function test done. Patient denies headache, visual, ocular auditory symptoms. She does endorse congestion and mild sore throat. Her voice is hoarse. She does have a cough. The cough is nonproductive. She states she normally wheezes. She has been on prednisone in the past. Patient denies chest discomfort of any type. Patient denies GI or symptoms. She denies history of VTE. There is no history of trauma to the left lower extremity. The pain is from the distal thigh down to her ankle. Prior similar symptoms: Yes Recent Illness/Hospitalization: Yes ([facility]. She states she was on a Lasix drip.) [facility] Medical History Pneumonia COPD (chronic obstructive pulmonary disease) Environmental allergies Anemia Depression Asthma Medical History no medical history Home Medications ?Medication ?Instructions ?Recorded ?Last Taken ?Type montelukast 10 mg tablet 10 mg PO DAILY 03/13/1808/07 History furosemide 20 mg tablet 20 mg PO DAILY 02/08/2408/07 History albuterol sulfate 90 mcg/actuation 1 - 2 puff inhalati on Q4H PRN 09/03/24 Unknown History aerosol inhaler Wheezing bumetanide 1 mg tablet 1 mg PO DAILY 09/03/2409/02 History bupropion HCl 150 mg 24 hr tablet, 150 mg PO DAILY 09/02/24 History extended release cetirizine 10 mg tablet 10 mg PO DAILY 09/03/2408/07 History cyclosporine 0.05 % eye drops in a 1 drp ophthalmic (e ye) BID 09/03/24 Unknown History dropperette famotidine 20 mg tablet 20 mg PO BID PRN stomach ups et 09/03/24 Unknown History ferrous sulfate 325 mg (65 mg 325 mg PO DAILY 09/03/24 09/02/24 History iron) tablet (FeroSul) fluticasone fur. 200 mcg-umeclid 1 ea inhalation DAILY 09/03/24 09/02/24 History 62.5 mcg-vilant 25 mcg inhalat.powder (Trelegy Ellipta) fluticasone propionate 50 1 spray intranasal BID aller gy 09/03/24 Unknown History mcg/actuation nasal symptoms spray,suspension potassium chloride 20 mEq 20 meq PO DAILY 09/03/24 History tablet,extended release(part/cryst) sertraline 50 mg tablet 25 mg PO DAILY 09/03/24 Unkn own History valacyclovir 500 mg tablet 500 mg PO BID 09/03/2408/07 History Allergy/AdvReac Type Severity Reaction Status Date / Time No Known Allergies Allergy Verified 09/03/24 14:28 Family History no significant family his Surgical History Hx of knee surgery Hx of section Surgical History no surgical history Social History Smoking Status: Former smoker ROS ROS ED Constitutional Constitutional ED: Reports chills, fever(s) and subjective; Denies sweats or weight loss Eyes Eyes: Reports other Details: Slight drainage from both of her eyes. ; Denies blurry vision or change in vision ENT ENT ED: Reports rhinorrhea and sore throat Cardiovascular Cardiovascular: Reports orthopnea; Denies chest pain, palpitations, paroxysmal nocturnal dyspnea or racing heartbeat Respiratory/Chest Respiratory/Chest: Reports cough, dyspnea, dyspnea on exertion and orthopnea; Denies paroxysmal nocturnal dyspnea Gastrointestinal Gastrointestinal: Denies abdominal pain, diarrhea, melena, nausea or vomiting Genitourinary Genitourinary ED: Denies dysuria, hematuria or urinary frequency Musculoskeletal Musculoskeletal: Reports other Details: Left lower extremity pain as previously described. ; Denies arthralgias or myalgias Integumentary Denies rash Psychiatric Psychiatric: Denies anxiety or depression Endocrine Endocrinology: Denies cold intolerance or heat intolerance Hematologic/Lymphatic Hematologic/Lymphatic: Reports systems reviewed and no addt'l complaints, exceptas documented EXAM Physical Exam Const Vital Signs: 09/03/24 14:21 09/03/24 14:25 09/03/24 14:28 Temperature 98.7 F 98.7 F Temperature Source Oral Oral Pulse Rate 137 H 135 H Respiratory Rate 28 H 29 H Respiratory Effort Short of Breath Labored Respiratory Depth Shallow Respiratory Pattern Tachypnea Blood Pressure 156/139 H 168/96 H Blood Pressure Mean 144 120 Pulse Ox 92 96 Oxygen Delivery Method High Flow High Flow High Flow Oxygen Flow Rate (L/min) 15 13 13 Fraction of Inspired Oxygen (FIO2) 09/03/24 15:14 09/03/24 15:15 09/03/24 15:23 Temperature 99.4 F H Temperature Source Oral Pulse Rate 130 H 131 H 131 H Respiratory Rate 23 H 23 H 25 H Respiratory Effort Respiratory Depth Respiratory Pattern Blood Pressure 155/80 H 155/80 H Blood Pressure Mean 93 105 Pulse Ox 91 90 92 Oxygen Delivery Method High Flow Oxygen Flow Rate (L/min) 13 Fraction of Inspired Oxygen (FIO2) 09/03/24 15:30 09/03/24 15:45 09/03/24 16:00 Temperature 100.7 F H Temperature Source Axillary Pulse Rate 132 H 131 H 124 H Respiratory Rate 27 H 22 H 24 H Respiratory Effort Respiratory Depth Respiratory Pattern Blood Pressure 139/83 H 133/106 H 142/114 H Blood Pressure Mean 101 113 123 Pulse Ox 93 97 98 Oxygen Delivery Method Bi-pap Oxygen Flow Rate (L/min) Fraction of Inspired Oxygen (FIO2) 70 09/03/24 16:00 09/03/24 16:03 09/03/24 16:03 Temperature Temperature Source Pulse Rate 129 H 126 H 126 H Respiratory Rate 26 H 30 H 30 H Respiratory Effort Respiratory Depth Respiratory Pattern Blood Pressure 142/114 H Blood Pressure Mean 122 Pulse Ox 87 98 Oxygen Delivery Method Oxygen Flow Rate (L/min) Fraction of Inspired Oxygen (FIO2) 70 09/03/24 16:15 09/03/24 16:30 09/03/24 16:45 Temperature Temperature Source Pulse Rate 126 H 127 H 126 H Respiratory Rate 25 H 32 H 30 H Respiratory Effort Respiratory Depth Respiratory Pattern Blood Pressure 128/85 H 131/94 H 152/129 H Blood Pressure Mean 96 99 137 Pulse Ox 98 100 98 Oxygen Delivery Method Oxygen Flow Rate (L/min) Fraction of Inspired Oxygen (FIO2) 09/03/24 17:00 09/03/24 17:00 09/03/24 17:15 Temperature 100.4 F H Temperature Source Oral Pulse Rate 126 H 132 H Respiratory Rate 31 H 26 H Respiratory Effort Respiratory Depth Respiratory Pattern Blood Pressure 152/129 H 146/94 H Blood Pressure Mean 136 105 Pulse Ox 98 97 Oxygen Delivery Method Bi-pap Oxygen Flow Rate (L/min) Fraction of Inspired Oxygen (FIO2) 70 60 09/03/24 17:17 Temperature 100.4 F H Temperature Source Pulse Rate 127 H Respiratory Rate 20 H Respiratory Effort Respiratory Depth Respiratory Pattern Blood Pressure 146/94 H Blood Pressure Mean 111 Pulse Ox 96 Oxygen Delivery Method Oxygen Flow Rate (L/min) Fraction of Inspired Oxygen (FIO2) Constitutional Narrative: Patient's voice is hoarse. She is tachypneic and tachycardic. She is on high flow oxygen at 13 L with a saturation of 90 to 91%. Her BMI is greater than 60. General Appearance ED: Negative for cyanotic, diaphoretic, NAD or pallor HEENT Reports moist mucous membranes HEENT Narrative: Head is atraumatic normocephalic. Ears normal. Nares patent with discharge. Posterior pharynx is normal. Eyes PERRL and EOMs intact bilaterally General Eye ED: Negative for pale conjunctiva or scleral icterus Neck no lymphadenopathy, supple and no JVD Neck Narrative: Trachea is midline. There is no inspiratory stridor. Resp No normal respiratory effort and No clear to auscultation bilaterally Resp Narrative: There is use of accessory muscles. Auscultation: wheezes expiratory wheezes and throughout (Expiratory phase is increased.) Cardio regular rhythm, S1 normal heart sound, S2 normal heart sound and no murmurs Rate: tachycardic GI normal to inspection, nondistended, normoactive bowel sounds, non-tender, non-distended and no masses; Negative for hepatosplenomegaly Back/Spine no CVA tenderness Extremity Extremity Narrative: The left lower extremity is swollen compared to the right. There is tenderness. Due to body habitus unable to appreciate any veins to determine if there is anydistention of the veins. Unable to palpate anything either. General Extremety ED: Yes edema and tenderness General Extremity: edema Neuro oriented x3 and CN's II-XII intact bilaterally Neuro Narrative: Patient is awake but not alert. Sensorium / Orientation: Negative for alert Psych Psych Narrative: Affect is depressed. Skin no rashes or lesions noted, no wounds and skin turgor normal General Skin Exam: Negative for pallor MDM MDM MDM Narrative Medical decision making narrative: With the patient have a cough fever respiratory symptoms suspect infectious cause of her respiratory failure of acute on chronic. VBG was obtained to assess acid- base status and CO2. With her having swelling of left leg and pain venous duplex study was ordered to rule out DVT. Chest x-ray was obtained to assess for pneumonia. As well as CHF since she is having orthopnea. EKG was obtained to evaluate for cardiac ischemia as well as troponin. Since it has been going on for greater than 24 hours 1 troponin was obtained. History & Record Review Additional record(s) reviewed:: Prior ED visit (Most recent ER visit was May2024 for exacerbation of asthma. She was seen in February 2024 for cellulitis.) and Prior labs Lab Data Attestation: I reviewed the patient's lab results. Lab results narrative: White count is elevated 15,000 with shift. There is no bandemia. There is evidence of mild anemia. Indices are abnormal. MCV is 75. Electrolyte panel is remarked for an elevated CO2. Lactate was normal. Labs: Laboratory Results - last 24 hr 09/03/24 09/03/24 14:25 14:29 WBC 15.0 H RBC 5.83 H Hgb 11.8 L Hct 44.0 MCV 75.5 L MCH 20.2 L MCHC 26.8 L RDW Std Deviation 49.2 H RDW Coeff of Micha 18.7 H Plt Count 276 MPV 10.3 Immature Gran % (Auto) 1.200 H Neut % (Auto) 80.1 H Lymph % (Auto) 10.9 L [place] % (Auto) 6.9 Eos % (Auto) 0.7 Baso % (Auto) 0.2 Absolute Neuts (auto) 12.0 H Absolute Lymphs (auto) 1.63 Nucleated RBC % 0.5 Sodium 142 Potassium 4.4 Chloride 99 Carbon Dioxide 35.6 H Anion Gap 8 BUN 11 Creatinine 0.72 Estim Creat Clear Calc 220.04 Est GFR (MDRD) Non-Af 114 BUN/Creatinine Ratio 15.3 Glucose 102 H Lactic Acid < 1.0 Calcium 8.7 Total Bilirubin 0.24 AST 33 H ALT 29 Alkaline Phosphatase 98 Total Protein 6.1 Albumin 4.0 Globulin 2.1 L Albumin/Globulin Ratio 1.9 ABG Data Attestation: I personally reviewed and interpreted this ABG as follows: Interpretation: VBG reveals a respiratory acidosis with metabolic compensation. pH is 7.30, PO2is 30, bicarb is 41, total CO2 is 43, pCO2 is 83. Patient was placed on BiPAP. She is doing much better on BiPAP. ABG results: ABG 09/03/24 09/03/24 15:39 17:23 Specimen Type SILVINO ISLVINO Sample Site Not entered Not entered O2 % 13.0 70.0 VBG pH 7.30 L 7.33 VBG pO2 30 71 H VBG HCO3 41 H 39 H VBG Total CO2 43 H 42 H VBG O2 Sat (Calc) 47 L 92 H VBG Base Excess 14 H 13 H POC Mix VBG pCO2 Pt Tmp 83.3 H* 74.7 H* O2 Delivery Device Cannula BiPAP Crit Call To/Read Back Yes Yes Blood Gas Notified Whom ug ug Blood Gas Notified Time 15:40:35 17:24:21 Radiography Chest X-Ray - ED: 1 View and Read by ED Physician (There is no effusion. There is an infiltrate right upper lobe. There is a large area of consolidation. Cardiac size and silhouette normal. Osseous structures unremarkable.) Diagnostic Testing: Clinical Impression(s) from Imaging Studies Venous Doppler Study 09/03/24 15:33 Interpretation Summary Deep veins of the left lower extremity are patent and compressible segmentally. There is no evidence of left lower extremity deep vein thrombosis. The left great saphenous vein appears patent andcompressible segmentally. Limited study Ordering Physician: Randy Bailey Referring Physician: Louann Bermeo Performed By: Srinath Chahal RVT Chest X-Ray 09/03/24 17:00 IMPRESSION: 1. Findings compatible with RIGHT upper lobe pneumonia. Follow-up to radiographic resolution. 2. Additional description as above. Reading Location: [facility] Management Discussion w/another healthcare provider: Hospitalist (Hospitalist saw patient. Plan is admit ICU.) Treatment and Re-Evaluation :: Repeat VBG was obtained to see if there is improvement at after treatment with the Atrovent, albuterol and BiPAP. Vital Sign Attestation:: Repeat ABG reveals a pH of 7.33, pCO2 74.7, pO2 71.1, bicarb 39.2 with a 91.7% saturation. Critical Care Time Critical Care Time: Yes Critical care time (excluding procedures): 30-74 minutes (33), Including time spent: (History, physical, documentation, review of prior records, independent to rotation laboratory results, imaging and treatment for respiratory failure due to pneumonia), Discussing w/Patient &/or Family/Risk Assessment Consultant, Discussing w/Consultants and Arranging Admission or Transfer Discharge Plan Dx/Rx/DC Orders Clinical Impression: Chronic respiratory failure with hypoxia and hypercapnia, Anemia, Right upper lobe pneumonia, SIRS (systemic inflammatory response syndrome), Acute pain of left lower extremity, Bronchospasm, acute, Sinus tachycardia seen on hospital monitor, Adult BMI 60.0-69.9 kg/sq m Disposition Disposition: Acute Care Hospital [facility] What to do if you have Problems For any increased pain, shortness of breath, bleeding, nausea or vomiting, chestpain, or any unexpected problems, contact your Primary Care Provider. Call [facility] ([phone]) or report to the closest Emergency Room. Call 911 if necessary. 09/03/24 1737 <Electronically signed by Randy Bailey MD> Cosigner Signature (if applicable): CC: CHILD STUDY TEAM DIRECTORJeff Bermeo ~ Signed [facility] Work Phone: 1(496) 152-861004-29-2025 Evaluation note* Diagnosis Onset Date Resolution Status Admit Date Acute pain of left lower extremity acute September 03, 2024 5:36pm Adult BMI 60.0-69.9 kg/sq m acute September 03, 2024 5:36pm Anemia acute September 03 5:36pm Bronchospasm, acute acute September 03, 2024 5:36pm Right upper lobe pneumonia acute September 03, 2024 5:36pm Sinus tachycardia seen on hospital monitor acute September 03, 2024 5:36pm SIRS (systemic inflammatory response syndrome) acute September 03, 2 025 5:36pm Acute on chronic respiratory failure with hypoxia and hypercapnia chronic September 03, 2024 5:36pm Chronic respiratory failure with hypoxia and hypercapnia chronic Apr il 2024 5:36pm [facility] Work Phone: 1(909) 685-318004-29-2025 Evaluation note* Diagnosis Onset Date Resolution Status Admit Date Adult BMI 60.0-69.9 kg/sq m acute September 03, 2024 5:36pm Anemia acute September 03 5:36pm Chronic respiratory failure with hypoxia and hypercapnia chronic Apr il 2024 5:36pm Acute on chronic respiratory failure with hypoxia and hypercapnia resolved September 03, 2024 5:36pm Acute pain of left lower extremity resolved September 03, 2024 5:36pm Bronchospasm, acute resolved September 03, 2024 5:36pm Right upper lobe pneumonia resolved September 03, 2024 5:36pm Sinus tachycardia seen on hospital monitor resolved September 03, 2024 5:36pm SIRS (systemic inflammatory response syndrome) resolved September 03, 2 025 5:36pm [facility] Work Phone: 1(219) 218-115204-29-2025 Discharge summary [facility] Medical Records Department [address] [place] [address] Emergency Department Summary 09/03/24 MR#: [id number] Acct: [id number] Name: TORRIE MARTINEZ Rep #:[id number] : 1990 34 From: Randy Bailey MD PCP: Louann Bermeo, CHILD STUDY TEAM DIRECTOR-C Status:REG ER Location: ED HPI History of Present Illness Chief Complaint: Shortness of Breath Detail of Chief Complaint: Shortness of breath and upper respiratory symptoms Informant: patient, family and EMS (Pulse ox was 60% when patient was supine.) Onset/Context/Timing Onset: Days Context: Gradual Onset Timing: Continuous Quality: Dyspnea, [place] exertion, orthopnea, infectious symptoms Location: Respiratory Current Severity: Moderate Maximum Severity: Severe Worsened by: Movement and supine position Relieved by: Nothing Associated Symptoms Associated Symptoms: Left leg pain that started today Narrative Narrative: Patient is a 34-year-old female with history of obstructive sleep apnea, congestive heart failure, lymphedema, chronic respiratory failure on 5 L of oxygen by nasal cannula. She is seen by Dr. Holcomb at the [facility]. Shehad recent pulmonary function test done. Patient denies headache, visual, ocular auditory symptoms. She does endorse congestion and mild sore throat. Her voice is hoarse. She does have a cough. The cough is nonproductive. She states she normally wheezes. She has been on prednisone in the past. Patient denies chest discomfort of any type. Patient denies GI or symptoms. She denies history of VTE. There is no history of trauma to the left lower extremity. The pain is from the distal thigh down to her ankle. Prior similar symptoms: Yes Recent Illness/Hospitalization: Yes ([facility]. She states she was on a Lasix drip.) [facility] Medical History Pneumonia COPD (chronic obstructive pulmonary disease) Environmental allergies Anemia Depression Asthma Medical History no medical history Home Medications ?Medication ?Instructions ?Recorded ?Last Taken ?Type montelukast 10 mg tablet 10 mg PO DAILY 03/13/1808/07 History furosemide 20 mg tablet 20 mg PO DAILY 02/08/2408/07 History albuterol sulfate 90 mcg/actuation 1 - 2 puff inhalati on Q4H PRN 09/03/24 Unknown History aerosol inhaler Wheezing bumetanide 1 mg tablet 1 mg PO DAILY 09/03/2409/02 History bupropion HCl 150 mg 24 hr tablet, 150 mg PO DAILY 09/02/24 History extended release cetirizine 10 mg tablet 10 mg PO DAILY 09/03/2408/07 History cyclosporine 0.05 % eye drops in a 1 drp ophthalmic (e ye) BID 09/03/24 Unknown History dropperette famotidine 20 mg tablet 20 mg PO BID PRN stomach ups et 09/03/24 Unknown History ferrous sulfate 325 mg (65 mg 325 mg PO DAILY 09/03/24 09/02/24 History iron) tablet (FeroSul) fluticasone fur. 200 mcg-umeclid 1 ea inhalation DAILY 09/03/24 09/02/24 History 62.5 mcg-vilant 25 mcg inhalat.powder (Trelegy Ellipta) fluticasone propionate 50 1 spray intranasal BID aller gy 09/03/24 Unknown History mcg/actuation nasal symptoms spray,suspension potassium chloride 20 mEq 20 meq PO DAILY 09/03/24 History tablet,extended release(part/cryst) sertraline 50 mg tablet 25 mg PO DAILY 09/03/24 Unkn own History valacyclovir 500 mg tablet 500 mg PO BID 09/03/2408/07 History Allergy/AdvReac Type Severity Reaction Status Date / Time No Known Allergies Allergy Verified 09/03/24 14:28 Family History no significant family his Surgical History Hx of knee surgery Hx of section Surgical History no surgical history Social History Smoking Status: Former smoker ROS ROS ED Constitutional Constitutional ED: Reports chills, fever(s) and subjective; Denies sweats or weight loss Eyes Eyes: Reports other Details: Slight drainage from both of her eyes. ; Denies blurry vision or change in vision ENT ENT ED: Reports rhinorrhea and sore throat Cardiovascular Cardiovascular: Reports orthopnea; Denies chest pain, palpitations, paroxysmal nocturnal dyspnea orracing heartbeat Respiratory/Chest Respiratory/Chest: Reports cough, dyspnea, dyspnea on exertion and orthopnea; Denies paroxysmal nocturnal dyspnea Gastrointestinal Gastrointestinal: Denies abdominal pain, diarrhea, melena, nausea or vomiting Genitourinary Genitourinary ED: Denies dysuria, hematuria or urinary frequency Musculoskeletal Musculoskeletal: Reports other Details: Left lower extremity pain as previously described. ; Denies arthralgias or myalgias Integumentary Denies rash Psychiatric Psychiatric: Denies anxiety or depression Endocrine Endocrinology: Denies cold intolerance or heat intolerance Hematologic/Lymphatic Hematologic/Lymphatic: Reports systems reviewed and no addt'l complaints, exceptas documented EXAM Physical Exam Const Vital Signs: 09/03/24 14:21 09/03/24 14:25 09/03/24 14:28 Temperature 98.7 F 98.7 F Temperature Source Oral Oral Pulse Rate 137 H 135 H Respiratory Rate 28 H 29 H Respiratory Effort Short of Breath Labored Respiratory Depth Shallow Respiratory Pattern Tachypnea Blood Pressure 156/139 H 168/96 H Blood Pressure Mean 144 120 Pulse Ox 92 96 Oxygen Delivery Method High Flow High Flow High Flow Oxygen Flow Rate (L/min) 15 13 13 Fraction of Inspired Oxygen (FIO2) 09/03/24 15:14 09/03/24 15:15 09/03/24 15:23 Temperature 99.4 F H Temperature Source Oral Pulse Rate 130 H 131 H 131 H Respiratory Rate 23 H 23 H 25 H Respiratory Effort Respiratory Depth Respiratory Pattern Blood Pressure 155/80 H 155/80 H Blood Pressure Mean 93 105 Pulse Ox 91 90 92 Oxygen Delivery Method High Flow Oxygen Flow Rate (L/min) 13 Fraction of Inspired Oxygen (FIO2) 09/03/24 15:30 09/03/24 15:45 09/03/24 16:00 Temperature 100.7 F H Temperature Source Axillary Pulse Rate 132 H 131 H 124 H Respiratory Rate 27 H 22 H 24 H Respiratory Effort Respiratory Depth Respiratory Pattern Blood Pressure 139/83 H 133/106 H 142/114 H Blood Pressure Mean 101 113 123 Pulse Ox 93 97 98 Oxygen Delivery Method Bi-pap Oxygen Flow Rate (L/min) Fraction of Inspired Oxygen (FIO2) 70 09/03/24 16:00 09/03/24 16:03 09/03/24 16:03 Temperature Temperature Source Pulse Rate 129 H 126 H 126 H Respiratory Rate 26 H 30 H 30 H Respiratory Effort Respiratory Depth Respiratory Pattern Blood Pressure 142/114 H Blood Pressure Mean 122 Pulse Ox 87 98 Oxygen Delivery Method Oxygen Flow Rate (L/min) Fraction of Inspired Oxygen (FIO2) 70 09/03/24 16:15 09/03/24 16:30 09/03/24 16:45 Temperature Temperature Source Pulse Rate 126 H 127 H 126 H Respiratory Rate 25 H 32 H 30 H Respiratory Effort Respiratory Depth Respiratory Pattern Blood Pressure 128/85 H 131/94 H 152/129 H Blood Pressure Mean 96 99 137 Pulse Ox 98 100 98 Oxygen Delivery Method Oxygen Flow Rate (L/min) Fraction of Inspired Oxygen (FIO2) 09/03/24 17:00 09/03/24 17:00 09/03/24 17:15 Temperature 100.4 F H Temperature Source Oral Pulse Rate 126 H 132 H Respiratory Rate 31 H 26 H Respiratory Effort Respiratory Depth Respiratory Pattern Blood Pressure 152/129 H 146/94 H Blood Pressure Mean 136 105 Pulse Ox 98 97 Oxygen Delivery Method Bi-pap Oxygen Flow Rate (L/min) Fraction of Inspired Oxygen (FIO2) 70 60 09/03/24 17:17 Temperature 100.4 F H Temperature Source Pulse Rate 127 H Respiratory Rate 20 H Respiratory Effort Respiratory Depth Respiratory Pattern Blood Pressure 146/94 H Blood Pressure Mean 111 Pulse Ox 96 Oxygen Delivery Method Oxygen Flow Rate (L/min) Fraction of Inspired Oxygen (FIO2) Constitutional Narrative: Patient's voice is hoarse. She is tachypneic and tachycardic. She is on high flow oxygen at 13 L with a saturation of 90 to 91%. Her BMI is greater than 60. General Appearance ED: Negative for cyanotic, diaphoretic, NAD or pallor HEENT Reports moist mucous membranes HEENT Narrative: Head is atraumatic normocephalic. Ears normal. Nares patent with discharge. Posterior pharynx is normal. Eyes PERRL and EOMs intact bilaterally General Eye ED: Negative for pale conjunctiva or scleral icterus Neck no lymphadenopathy, supple and no JVD Neck Narrative: Trachea is midline. There is no inspiratory stridor. Resp No normal respiratory effort and No clear to auscultation bilaterally Resp Narrative: There is use of accessory muscles. Auscultation: wheezes expiratory wheezes and throughout (Expiratory phase is increased.) Cardio regular rhythm, S1 normal heart sound, S2 normal heart sound and no murmurs Rate: tachycardic GI normal to inspection, nondistended, normoactive bowel sounds, non-tender, non- distended and no masses; Negative for hepatosplenomegaly Back/Spine no CVA tenderness Extremity Extremity Narrative: The left lower extremity is swollen compared to the right. There is tenderness. Due to body habitusunable to appreciate any veins to determine if there is anydistention of the veins. Unable to palpate anything either. General Extremety ED: Yes edema and tenderness General Extremity: edema Neuro oriented x3 and CN's II-XII intact bilaterally Neuro Narrative: Patient is awake but not alert. Sensorium / Orientation: Negative for alert Psych Psych Narrative: Affect is depressed. Skin no rashes or lesions noted, no wounds and skin turgor normal General Skin Exam: Negative for pallor MDM MDM MDM Narrative Medical decision making narrative: With the patient have a cough fever respiratory symptoms suspect infectious cause of her respiratory failure of acute on chronic. VBG was obtained to assess acid-base status and CO2. With her having swelling of left leg and pain venous duplex study was ordered to rule out DVT. Chest x-ray was obtained to assess for pneumonia. As well as CHF since she is having orthopnea. EKG was obtained to evaluate for cardiac ischemia as well as troponin. Since it has been going on for greater than 24 hours 1troponin was obtained. History & Record Review Additional record(s) reviewed:: Prior ED visit (Most recent ER visit was May2024 for exacerbation of asthma. She was seen in February 2024 for cellulitis.) and Prior labs Lab Data Attestation: I reviewed the patient's lab results. Lab results narrative: White count is elevated 15,000 with shift. There is no bandemia. There is evidence of mild anemia. Indices are abnormal. MCV is 75. Electrolyte panel is remarked for an elevated CO2. Lactate was normal. Labs: Laboratory Results - last 24 hr 09/03/24 09/03/24 14:25 14:29 WBC 15.0 H RBC 5.83 H Hgb 11.8 L Hct 44.0 MCV 75.5 L MCH 20.2 L MCHC 26.8 L RDW Std Deviation 49.2 H RDW Coeff of Micha 18.7 H Plt Count 276 MPV 10.3 Immature Gran % (Auto) 1.200 H Neut % (Auto) 80.1 H Lymph % (Auto) 10.9 L [place] % (Auto) 6.9 Eos % (Auto) 0.7 Baso % (Auto) 0.2 Absolute Neuts (auto) 12.0 H Absolute Lymphs (auto) 1.63 Nucleated RBC % 0.5 Sodium 142 Potassium 4.4 Chloride 99 Carbon Dioxide 35.6 H Anion Gap 8 BUN 11 Creatinine 0.72 Estim Creat Clear Calc 220.04 Est GFR (MDRD) Non-Af 114 BUN/Creatinine Ratio 15.3 Glucose 102 H Lactic Acid < 1.0 Calcium 8.7 Total Bilirubin 0.24 AST 33 H ALT 29 Alkaline Phosphatase 98 Total Protein 6.1 Albumin 4.0 Globulin 2.1 L Albumin/Globulin Ratio 1.9 ABG Data Attestation: I personally reviewed and interpreted this ABG as follows: Interpretation: VBG reveals a respiratory acidosis with metabolic compensation. pH is 7.30, PO2is 30, bicarb is 41,total CO2 is 43, pCO2 is 83. Patient was placed on BiPAP. She is doing much better on BiPAP. ABG results: ABG 09/03/24 09/03/24 15:39 17:23 Specimen Type SILVINO SILVINO Sample Site Not entered Not entered O2 % 13.0 70.0 VBG pH 7.30 L 7.33 VBG pO2 30 71 H VBG HCO3 41 H 39 H VBG Total CO2 43 H 42 H VBG O2 Sat (Calc) 47 L 92 H VBG Base Excess 14 H 13 H POC Mix VBG pCO2 Pt Tmp 83.3 H* 74.7 H* O2 Delivery Device Cannula BiPAP Crit Call To/Read Back Yes Yes Blood Gas Notified Whom ug ug Blood Gas Notified Time 15:40:35 17:24:21 Radiography Chest X-Ray - ED: 1 View and Read by ED Physician (There is no effusion. There is an infiltrate right upper lobe. There is a large area of consolidation. Cardiac size and silhouette normal. Osseous structures unremarkable.) Diagnostic Testing: Clinical Impression(s) from Imaging Studies Venous Doppler Study 09/03/24 15:33 Interpretation Summary Deep veins of the left lower extremity are patent and compressible segmentally. There is no evidence of left lower extremity deep vein thrombosis. The left great saphenous vein appears patent andcompressible segmentally. Limited study Ordering Physician: Randy Bailey Referring Physician: Louann Bermeo Performed By: Srinath Chahal RVT Chest X-Ray 09/03/24 17:00 IMPRESSION: 1. Findings compatible with RIGHT upper lobe pneumonia. Follow-up to radiographic resolution. 2. Additional description as above. Reading Location: [facility] Management Discussion w/another healthcare provider: Hospitalist (Hospitalist saw patient. Plan is admit ICU.) Treatment and Re-Evaluation :: Repeat VBG was obtained to see if there is improvement at after treatment with the Atrovent, albuterol and BiPAP. Vital Sign Attestation:: Repeat ABG reveals a pH of 7.33, pCO2 74.7, pO2 71.1, bicarb 39.2 with a 91.7% saturation. Critical Care Time Critical Care Time: Yes Critical care time (excluding procedures): 30-74 minutes (33), Including time spent: (History, physical, documentation, review of prior records, independent to rotation laboratory results, imaging and treatment for respiratory failure due to pneumonia), Discussing w/Patient &/or Family/Risk Assessment Consultant, Discussing w/Consultants and Arranging Admission or Transfer Discharge Plan Dx/Rx/DC Orders Clinical Impression: Chronic respiratory failure with hypoxia and hypercapnia, Anemia, Right upper lobe pneumonia, SIRS (systemic inflammatory response syndrome), Acute pain of left lower extremity, Bronchospasm, acute, Sinus tachycardia seen on hospital monitor, Adult BMI 60.0-69.9 kg/sq m Disposition Disposition: Acute Care Hospital [facility] What to do if you have Problems For any increased pain, shortness of breath, bleeding, nausea or vomiting, chestpain, or any unexpected problems, contact your Primary Care Provider. Call [employer] ([phone]) or report tothe closest Emergency Room. Call 911 if necessary. 09/03/24 1737 Cosigner Signature (if applicable): CC: OMAR Bermeo ~ Signed [facility]04-29-2025 Radiology Diagnostic study note [facility] Imaging Services [address] [place] [address] Chest 1 View (Portable) MR#: [id number] Acct: [id number] Name: TORRIE MARTINEZ Rep #: [id number] : 1990 F 34 From: Sera Guevara MD PCP: OMAR Jones Status: REG ER Study:Chest 1 View (Portable) Date of Exam: 09/03/24 Exam# [id number] Ordering Dr: Alanis Bailey MD PROCEDURE: CHEST 1 VIEW (PORTABLE) (RADCXPA_P), 09/03/2024 REASON FOR EXAM: FEVER, COUGH, WHEEZING, RESPIRATORY FAILURE TECHNIQUE: A single portable AP view of the chest was obtained. COMPARISON: 05/26/2024 FINDINGS: Heart: Unremarkable. Mediastinum: Unremarkable. Lungs/pleura: Similar slight elevation of the LEFT hemidiaphragm with grossly similar chronic LEFT basilar atelectasis/scarring. New RIGHT upper lobe consolidation well marginated by the minor fissure. No sizeable pleural effusion or visible pneumothorax. Bones: Unremarkable. Lines and support devices: None. Other: None. RAD/Chest 1 View (Portable) IMPRESSION: 1. Findings compatible with RIGHT upper lobe pneumonia. Follow-up to radiographic resolution. 2. Additional description as above. Reading Location: [facility] CC: OMAR Bermeo; Dr. Randy Bailey MD ~ [place]: Signed [facility]04-28-2025 Telephone encounter Note* Telephone Encounter - Berna Ochoa MA - 09/02/2024 4:59 PM EDT Insurance Verified : [facility] Mycare Coverage: yes CPT Codes: 45271, 86298, 39981, 94068 and 74796 Nutrition Requirements: # 0 Special requirements: n/a dual plan In Net % 100 OOP Max: $0 Deductible $0 Copay $0 IOQ/ELIZABETH/BDC Rep Name: nw Ref # [id number] [facility]04-28-2025 Miscellaneous Notes* Telephone Encounter - Berna Ochoa MA - 09/02/2024 4:59 PM EDT Insurance Verified : [facility] Mycare Coverage: yes CPT Codes: 02576, 36143, 85221, 58656 and 34386 Nutrition Requirements: # 0 Special requirements: n/a dual plan In Net % 100 OOP Max: $0 Deductible $0 Copay $0 IOQ/ELIZABETH/BDC Rep Name: nw Ref # [id number] [facility] Procedure note* Torrie Syed RPFT - 08/27/2024 9:44 AM EDTAssociated Order(s): NITRIC OXIDE, EXHALED RESPIRATORY THERAPY ORAL EXHALED NITRIC OXIDE SERVICE DATE: 08/27/2024 SERVICE TIME: 9:44 AM Oral Exhaled Nitric Oxide measurement: 33.0 (ppb) Normal: Adult <25 ppb, pediatric (<12 years) <20 ppb High Normal / Increased: Adult 25-50 ppb, pediatric (<12 years) 20-35 ppb Moderately raised exhaled Nitric Oxide may indicate underlying inflammation, but note that: Cold and influenza can raise exhaled Nitric Oxide and some patients have higher baseline exhaled Nitric Oxide levels than others. High: Adult >50 ppb, pediatric (<12 years) >35 ppb Indicative of ongoing eosinophilic inflammation. Symptomatic patient likely to respond to steroids. Possible causes (if already on steroids): Poor compliance, recent allergen exposure, steroid dose inadequate, and steroid resistance. Note that not all patients with high exhaled nitric oxide levels display symptoms. Oral Exhaled Nitric Oxide measurement (Previous Encounters) Test Date Oral Exhaled Nitric Oxide (ppb) 08/27/2024 33.0 NAME: Torrie SyedFIONA PATIENT NAME: Torrie Martinez DATE: August 27, 2024 TIME: 9:44 AM [facility]04-22-2025 Procedure note* Tinadheeraj FIONA Brownlee - 08/27/2024 9:44 AM EDTAssociated Order(s): NITRIC OXIDE, EXHALED RESPIRATORY THERAPY ORAL EXHALED NITRIC OXIDE SERVICE DATE: 08/27/2024 SERVICE TIME: 9:44 AM Oral Exhaled Nitric Oxide measurement: 33.0 (ppb) Normal: Adult <25 ppb, pediatric (<12 years) <20 ppb High Normal / Increased: Adult 25-50 ppb, pediatric (<12 years) 20-35 ppb Moderately raised exhaled Nitric Oxide may indicate underlying inflammation, but note that: Cold and influenza can raise exhaled Nitric Oxide and some patients have higher baseline exhaled Nitric Oxide levels than others. High: Adult >50 ppb, pediatric (<12 years) >35 ppb Indicative of ongoing eosinophilic inflammation. Symptomatic patient likely to respond to steroids. Possible causes (if already on steroids): Poor compliance, recent allergen exposure, steroid dose inadequate, and steroid resistance. Note that not all patients with high exhaled nitric oxide levels display symptoms. Oral Exhaled Nitric Oxide measurement (Previous Encounters) Test Date Oral Exhaled Nitric Oxide (ppb) 08/27/2024 33.0 NAME: Torrie SyedFIONA PATIENT NAME: Torrie Martinez DATE: August 27, 2024 TIME: 9:44 AM documented in this encounterPromedica [facility]04-[facility] History of Present illness Narrative* Radha Chapman APRN.LINDA - 08/27/2024 8:00 AM EDT Images from the original note were not included. Pulmonary Medicine Patients name: Torrie ARMSTRONGN: [id number] PCP: Loaunn Bermeo APRN.TWISTING OPERATOR CC: Asthma follow-up HPI: Torrie Martinez is a 34 year old female former 8-pack-year smoker with PMH significant for morbid obesity, depression, anxiety, GERD, severe asthma, nasal polyposis, BOLA on CPAP, history of immune deficiency/CVID requiring monthly IVIG, and chronic hypoxemic respiratory failure on oxygen. Current therapy for her asthma consists of nebulized Fasenra, Singulair, Flonase, Trelegy 200 and nebulized Albuterol. ISELA 07/2023 to reestablish care. Increased therapy to Trelegy at that time d/t persistent respiratory symptoms. Recommended updating PFT but has not yet been complete. Since that time, she reports shestopped Fasenra quite some time ago. Has not noted any change in asthma symptoms since stopping. Fasenra was just reordered by her PCP last month but she was unaware of it and does not wish to resume. She has had multiple ED visits/hospitalizations with respiratory complaints and recenly had PNA. Overall states that her asthma symptoms vary but it is hard to gauge control d/t other co morbiditiescontributing to symptoms. Today, patient reports frequent productive cough with sputum that varies in color. No recent hemoptysis. Reports she's always wheezing. No dyspnea at rest. Exertional dyspnea with chores around the house and has to pace herself with activity. Has significant lower extremity edema, using Bumex. Uses Albuterol 4-5 x a week. She is interested in possibility of bariatric surgery and plans to discuss with her PCP. DME: [facility] 5 L at home CPAP PAST MEDICAL HISTORY Diagnosis Date Allergic rhinitis due to allergen 02/2018 [facility] testing. Current severe episode of major depressive disorder without psychotic features without prior episode (HCC) 09/14/2018 DNS (deviated nasal septum) Ex-smoker 01/10/2018 Started at age 18 and quit at 26. Smoked one cigar a day. MARCUS (generalized anxiety disorder) 09/14/2018 GERD (gastroesophageal reflux disease) Immunodeficiency (HCC) IVIG Iron deficiency anemia 06/17/2018 Morbid obesity (HCC) 06/15/2018 Nasal polyposis BOLA on CPAP Pleural effusion 06/15/2018 Severe persistent asthma with acute exacerbation 02/12/2018 Vitiligo Allergies: Seasonal Allergies Other: See Comments Comment:Congestion Medication List Accurate as of August 25, 2024 9:27 PM. If you have any questions, ask your nurse or doctor. CONTINUE taking these medications * albuterol HFA 90 mcg/actuation inhaler Commonly known as: PROVENTIL HFA, VENTOLIN HFA * albuterol 2.5 mg /3 mL (0.083 %) nebulizer solution Commonly known as: PROVENTIL Use 3 mL via nebulizer every 6 hours as needed for Wheezing/Shortness of Breath. bumetanide 1 mg tablet Commonly known as: BUMEX Take 1 tablet by mouth once daily. buPROPion XL 150 mg 24 hr tablet Commonly known as: WELLBUTRIN XL Take 1 tablet by mouth every morning. cetirizine 10 mg tablet Commonly known as: ZYRTEC Take 1 tablet by mouth every afternoon. COMPOUNDED PRESCRIPTION Please assess for portable oxygen concentrator. famotidine 20 mg tablet Commonly known as: PEPCID Take 1 tablet by mouth two times a day as needed (GERD 2nd line). FASENRA 30 mg/mL injection Generic drug: benralizumab Inject 1 mL subcutaneously every 4 weeks. ferrous sulfate 325 mg (65 mg iron) tablet Take 1 tablet by mouth once daily. fluticasone 50 mcg/actuation nasal spray Commonly known as: FLONASE Use 1 [place] in each nostril two times a day. Rinse mouth after use. levalbuterol 0.31 mg/3 mL nebulizer solution Commonly known as: XOPENEX montelukast 10 mg tablet Commonly known as: SINGULAIR Take 1 tablet by mouth daily at bedtime. potassium chloride ER 20 mEq tablet Commonly known as: KLOR-CON Take 1 tablet by mouth every afternoon. prednisoLONE acetate 1 % ophthalmic suspension Commonly known as: PRED FORTE sertraline 50 mg tablet Commonly known as: ZOLOFT 1/2 a tablet by mouth once a day for 10 days then go to one tablet daily TRELEGY ELLIPTA 200-62.5-25 mcg inhalation powder Generic drug: qulogrhwsbk-ltyencdyi-xvmjuvuw Inhale 1 Puff as instructed once daily. valACYclovir 500 mg tablet Commonly known as: VALTREX Take 1 tablet by mouth two times a day. * This list has 2 medication(s) that are the same as other medications prescribed for you. Read thedirections carefully, and ask your doctor or other care provider to review them with you. DATA: I personally reviewed and analyzed all labs, radiographs and available pulmonary function testing PFT: 08/2024 Labs: WBC (k/uL) Date Value 07/18/2024 7.20 10/26/2018 6.83 RBC (m/uL) Date Value 07/18/2024 5.72 10/26/2018 5.76 Hemoglobin (g/dL) Date Value 07/18/2024 11.8 10/26/2018 12.3 Hematocrit (%) Date Value 07/18/2024 43.8 10/26/2018 41.3 Platelet Count (k/uL) Date Value 07/18/2024 300 10/26/2018 297 MPV (fL) Date Value 07/18/2024 10.1 10/26/2018 10.0 Neut% (%) Date Value 10/26/2018 56.8 Neutrophils % (%) Date Value 07/18/2024 59.3 Eosin% (%) Date Value 10/26/2018 3.2 Eosinophils % (%) Date Value 07/18/2024 3.6 Baso% (%) Date Value 10/26/2018 0.3 Basophils % (%) Date Value 07/18/2024 0.3 Abs Neut (ANC) (k/uL) Date Value 10/26/2018 3.88 Abs Neut (k/uL) Date Value 07/18/2024 4.27 Abs [place] (k/uL) Date Value 07/18/2024 0.55 10/26/2018 0.54 Abs Eosin (k/uL) Date Value 07/18/2024 0.26 10/26/2018 0.22 Abs Baso (k/uL) Date Value 07/18/2024 <0.03 10/26/2018 <0.03 IgE (kU/L) Date Value 06/29/2018 <2.0 IMMUNIZATIONS Prevnar - 06/2023 Pneumovax 23 - xx Influenza - xx COVID-19 - xx RSV- xx Review of Systems Constitutional: Negative for activity change, appetite change and unexpected weight change. HENT: Negative for congestion, mouth sores, sinus pressure and sinus pain. Respiratory: Positive for cough, shortness of breath and wheezing. Negative for chest tightness. Cardiovascular: Positive for leg swelling. Negative for chest pain and palpitations. Neurological: Negative for dizziness and weakness. BP 104/73 Pulse 108 Resp 17 Wt (!) 199.1 kg (439 lb) LMP 09/29/2018 SpO2 93% BMI 61.23 kg/m Physical Exam Vitals reviewed. Constitutional: General: She is not in acute distress. Appearance: Normal appearance. She is obese. She is not ill-appearing. HENT: Head: Normocephalic. Nose: No rhinorrhea. Mouth/Throat: Mouth: Mucous membranes are moist. Pharynx: No oropharyngeal exudate. Cardiovascular: Rate and Rhythm: Normal rate and regular rhythm. Heart sounds: Normal heart sounds. Pulmonary: Effort: Pulmonary effort is normal. No respiratory distress. Breath sounds: Wheezing present. No rhonchi. Musculoskeletal: Right lower leg: Edema present. Left lower leg: Edema present. Skin: General: Skin is warm and dry. Capillary Refill: Capillary refill takes less than 2 seconds. Neurological: General: No focal deficit present. Mental Status: She is alert. ASSESSMENT/PLAN: 1. Severe persistent asthma without complication (HCC) - ICD9: 493.90, ICD10: J45.50 (primary diagnosis) - Severe persistent asthma stable - Continue Trelegy 200 and as needed Albuterol - Continue Singulair - discussed restarting Fasenra/other biologic therapy. She is not interested in this time. - Asthma education: Reviewed asthma signs, symptoms and monitoring and Rinsing after each inhaled steroid use - SPIROMETRY WITH DILATOR IF OBSTRUCTED - LUNG VOLUMES - NITRIC OXIDE, EXHALED - LUNG DIFFUSION CAPACITY (DLCO) 2. Restrictive lung disease - ICD9: 518.89, ICD10: J98.4 - likely related to morbid obesity - update PFT today 3. Chronic hypoxemic respiratory failure (HCC) - ICD9: 518.83, 799.02, ICD10: J96.11 - she is compliant and continues to benefit from supplemental [facility] - [facility] 4. Morbid obesity (HCC) - ICD9: 278.01, ICD10: E66.01 - BMI 61 - interested in bariatric surgery. Discussed the benefits of weight loss from a pulmonary perspective. She is concerned about lung function and tolerating surgery. Encouraged her to discuss weight loss options further with her PCP. F/u 6 months Portions of this documentation were copied and pasted from previous office visit notes in order to provide a cohesive continuity of the history. The note has been reviewed and edited and updated as necessary. Radha Chapman APRN.LINDA I spent a total of 32 minutes on the date of the service which included preparing to see the patient, [id number] patient care, completing clinical documentation, performing a medically appropriate examination, counseling and educating the patient/family/caregiver, and ordering medications, tests,or procedures. documented in this encounterProm[facility]04-[facility] Telephone encounter Note* Telephone Encounter - Linda Griffith RN - 07/19/2024 2:52 PM EDT Pt returned call and given provider's message below with verbalized understanding. [facility]03-14-2025 Miscellaneous Notes* Telephone Encounter - Linda Griffith RN - 07/19/2024 2:52 PM EDT Pt returned call and given provider's message below with verbalized understanding. * Telephone Encounter - Margret Navarrete MA - 07/19/2024 11:24 AM EDT Pt active on [employer] message sent Margret Navarrete MA * Telephone Encounter - Margret Navarrete MA - 07/19/2024 9:18 AM EDT Left message for patient to return call to office Margret Navarrete MA * Telephone Encounter - Louann Bermeo APRN.CNP - 07/19/2024 9:15 AM EDT Please let patient know her iron is low. I have ordered supplementation for her to start daily. Will recheck in 3 months, orders in. The rest of her labs are stable. documented in this encounterPromedica [facility]03-14-2025 Telephone encounter Note * Telephone Encounter - Margret Navarrete MA - 07/19/2024 11:24 AM EDT Pt active on [employer] message sent Margret Navarrete MA [facility]03-14-2025 Telephone encounter Note* Telephone Encounter - Margret Navarrete MA - 07/19/2024 9:18 AM EDT Left message for patient to return call to office Margret Navarrete MA [facility]03-14-2025 Telephone encounter Note* Telephone Encounter - Louann Bermeo APRN.CNP - 07/19/2024 9:15 AM EDT Please let patient know her iron is low. I have ordered supplementation for her to start daily. Will recheck in 3 months, orders in. The rest of her labs are stable. [facility]03-13-2025 Telephone encounter Note* Telephone Encounter - Tea Mckoy RN - 07/18/2024 8:40 AM EDT Pt just saw Louann Bermeo this morning for an appt. Pt states she forgot to ask Louann if she could prescribe Valacyclovir for her. Pt feels she has a mild case of genital herpes at the moment. She isn't sure if she has any open sores at this time. Pt uses [facility] in [place]. Last prescriptionwas 06/30/23. [facility]03-13-2025 Miscellaneous Notes* Telephone Encounter - Tea Mckoy RN - 07/18/2024 8:40 AM EDT Pt just saw Louann Jean-Claude this morning for an appt. Pt states she forgot to ask Louann if she could prescribe Valacyclovir for her. Pt feels she has a mild case of genital herpes at the moment. She isn't sure if she has any open sores at this time. Pt uses [facility] in [place]. Last prescriptionwas 06/30/23. documented in this encounterPromedica Bay [facility]03-13-2025 [facility]Select [facility]03-13-[facility] History of Present illness Narrative* Louann Bermeo APRN.LINDA - 07/18/2024 8:12 AM EDT Chief Complaint Patient presents with: Follow Up HPI Torrie Martinez is a 34 year old female who presents here today for Above Complaints.. Patient presents for follow up. Patient reports she continues to have swelling to bilateral lower legs. Weight increased 9 pounds since April. 1.5 L fluid restriction in place and patient reports she is compliant with this. Past medical history, appointments, medications, allergies reviewed. Previous Medical History PAST MEDICAL HISTORY Diagnosis Date Allergic rhinitis due to allergen 02/2018 [facility] testing. Current severe episode of major depressive disorder without psychotic features without prior episode (HCC) 09/14/2018 DNS (deviated nasal septum) Ex-smoker 01/10/2018 Started at age 18 and quit at 26. Smoked one cigar a day. MARCUS (generalized anxiety disorder) 09/14/2018 GERD (gastroesophageal reflux disease) Immunodeficiency ([facility]) IVIG Iron deficiency anemia 06/17/2018 Morbid obesity ([facility]) 06/15/2018 Nasal polyposis BOLA on CPAP Pleural effusion 06/15/2018 Severe persistent asthma with acute exacerbation 02/12/2018 Vitiligo Previous Surgical History PAST SURGICAL HISTORY Procedure Laterality Date SECTION HX 2012 PAST SURGICAL HISTORY OF 2016, 2018 B knee arthroscopic surgery SINUS SURGERY HX 2019 TONSILLECTOMY HX 2015 Family History FAMILY HISTORY Problem Relation Age of Onset Asthma Mother Seizures Mother Asthma Brother Asthma Son Cancer Father Stage 4 lung cancer. Asthma Sister Diabetes Sister Allergies Maternal Grandmother Diabetes Maternal Grandmother Hypertension Maternal Grandmother Heart disease Maternal Grandfather Alzheimer's Disease No Family History Colon Cancer No Family History Breast Cancer No Family History Ovarian cancer No Family History Uterine Cancer No Family History Prostate Cancer No Family History Coronary Artery Disease No Family History Hyperlipidemia No Family History Kidney Disease No Family History Stroke No Family History Thyroid No Family History Psychiatry No Family History Patient Allergies ALLERGIES Allergen Reactions Seasonal Allergies Other: See Comments Congestion Current Medications Current Outpatient Medications on File Prior to Visit Medication Sig bumetanide (BUMEX) 1 mg tablet Take 1 tablet by mouth once daily. prednisoLONE acetate (PRED FORTE) 1 % ophthalmic suspension instill 1 drop into both eyes four times a day kkmnyyadedb-xuqlqptjg-akdorflh (TRELEGY ELLIPTA) 200-62.5-25 mcg inhalation powder Inhale 1 Puff asinstructed once daily. benralizumab (FASENRA) 30 mg/mL injection Inject 1 mL subcutaneously every 4 weeks. buPROPion XL (WELLBUTRIN XL) 150 mg 24 hr tablet Take 1 tablet by mouth every morning. cetirizine (ZYRTEC) 10 mg tablet Take 1 tablet by mouth every afternoon. potassium chloride ER (KLOR-CON) 20 mEq tablet Take 1 tablet by mouth every afternoon. valACYclovir (VALTREX) 500 mg tablet Take 1 tablet by mouth two times a day. ferrous sulfate 325 mg (65 mg iron) tablet Take 1 tablet by mouth two times a day. montelukast (SINGULAIR) 10 mg tablet Take 1 tablet by mouth daily at bedtime. fluticasone (FLONASE) 50 mcg/actuation nasal spray Use 1 [place] in each nostril two times a day. Rinse mouth after use. famotidine (PEPCID) 20 mg tablet Take 1 tablet by mouth two times a day as needed (GERD 2nd line). sertraline (ZOLOFT) 50 mg tablet 1/2 a tablet by mouth once a day for 10 days then go to one tabletdaily levalbuterol (XOPENEX) 0.31 mg/3 mL nebulizer solution 0.31 mg. albuterol (PROVENTIL) 2.5 mg /3 mL (0.083 %) nebulizer solution Use 3 mL via nebulizer every 6 hours as needed for Wheezing/Shortness of Breath. COMPOUNDED PRESCRIPTION Please assess for portable oxygen concentrator. albuterol HFA (PROVENTIL HFA, VENTOLIN HFA) 90 mcg/actuation inhaler Inhale 2 Puffs as instructed. No current facility-administered medications on file prior to visit. Social History Social History Tobacco Use Smoking status: Former Current packs/day: 0.00 Average packs/day: 1 pack/day for 9.8 years (9.8 ttl pk-yrs) Types: Cigars, Cigarettes Start date: 2008 Quit date: 01/06/2018 Years since quittin.5 Smokeless tobacco: Never Tobacco comments: Parents smoked in childhood home Vaping Use Vaping status: Never Used Substance Use Topics Alcohol use: Yes Comment: rare: 5 times/year Drug use: No Review of Symptoms REVIEW OF SYSTEMS SEE HPI EXAM: BP 149/77 Pulse 108 Wt (!) 193 kg (425 lb 7.8 oz) LMP 09/29/2018 BMI 59.34 kg/m General Appearance: Well appearing, alert, in no acute distress, well-hydrated, well nourished. Lungs: Positive findings: wheezing Shortness of breath: At rest, oxygen dependent Cough. Heart: RRR without murmur, gallop, or rubs. No ectopy. Extremities: Edema: non pitting b/l lower extremities. Peripheral Pulses: Normal. Health Maintenance List Hepatitis C Screening Never done HIV Screening Never done Cervical Cancer Screening Never done Influenza Vaccine(1) due on 01/07/2024 Covid-19 Vaccine( - 2023- season) Never done Annual PCP Team Chronic Disease Visit due on 07/18/2025 DTaP,Tdap,Td Vaccine(6 - Td or Tdap) due on 06/30/2033 Spirometry Completed Pneumococcal Vaccine Completed Hepatitis B Vaccine Discontinued ASSESSMENT/PLAN: 1. Oxygen dependent - ICD9: V46.2, ICD10: Z99.81 (primary diagnosis) -Wears 5l n/c 2. Lower extremity edema - ICD9: 782.3, ICD10: R60.0 - CONSULT TO LYMPHEDEMA THERAPY - BUMETANIDE 1 MG TABLET 3. Hypokalemia - ICD9: 276.8, ICD10: E87.6 - COMPREHENSIVE METABOLIC PANEL - POTASSIUM CHLORIDE ER 20 MEQ TABLET,EXTENDED RELEASE(PART/CRYST) 4. alf current use of diuretic - ICD9: V58.69, ICD10: Z79.899 - COMPREHENSIVE METABOLIC PANEL 5. Morbid obesity (HCC) - ICD9: 278.01, ICD10: E66.01 Weight increasing 6. Dependence on continuous supplemental oxygen - ICD9: V46.2, ICD10: Z99.81 -5L n/c 7. Severe persistent asthma, uncomplicated - ICD9: 493.90, ICD10: J45.50 - Severe persistent asthma stable - Continue current medications - Avoidance of triggers recommended - FASENRA 30 MG/ML SUBCUTANEOUS SYRINGE - CETIRIZINE 10 MG TABLET - FLUTICASONE PROPIONATE 50 MCG/ACTUATION NASAL SPRAY,SUSPENSION - MONTELUKAST 10 MG TABLET 8. Gastroesophageal reflux disease without esophagitis - ICD9: 530.81, ICD10: K21.9 - Continue treatment with Pepcid 20 mg QD - FAMOTIDINE 20 MG TABLET 9. Medication management - ICD9: V58.69, ICD10: Z79.89 - COMPREHENSIVE METABOLIC PANEL 10. Encounter for screening for diabetes mellitus - ICD9: V77.1, ICD10: Z13.1 - HEMOGLOBIN A1C 11. Iron deficiency anemia, unspecified iron deficiency anemia type - ICD9: 280.9, ICD10: D50.9 - COMPLETE BLOOD COUNT AND DIFFERENTIAL - IRON AND TIBC - FERRITIN 12. Encounter for lipid screening for cardiovascular disease - ICD9: V77.91, V81.2, ICD10: Z13.220,Z13.6 - LIPID PANEL, NONFASTING 13. Current severe episode of major depressive disorder without psychotic features without prior episode (HCC) - ICD9: 296.23, ICD10: F32.2 - BUPROPION XL 150 MG TAB - SERTRALINE 50 MG TABLET 14. MARCUS (generalized anxiety disorder) - ICD9: 300.02, ICD10: F41.1 - BUPROPION XL 150 MG TAB - SERTRALINE 50 MG TABLET Louann Bermeo APRN.TWISTING OPERATOR documented in this encounterPromedica Bay [facility]12-22-2024 NoteSelect [facility]12-22-2024 History of Present illness Narrative* Liberty Weir APRN.TWISTING OPERATOR - 04/28/2024 12:46 PM EST This note was created using NoteWriter. Subjective Torrie Martinez is a 34 year old female. 34 year old female with PMH BOLA, SOB, asthma, GERD presents for illness Acute onset a couple days ago +headache +cough +fever Has used Dayquil and Ibuprofen Of note, she was admitted recently for hypoxia, sepsis and pneumonia. Here in clinic, she is noted to have a pulse ox 65 percent She states her oxygen tank is in the car The one thing on it seems to not be working The history is provided by the patient. No master steam yacht was used. Headache This is a new problem. The current episode started more than 2 days ago. The problem occurs constantly. The problem has not changed since onset.The headache is associated with nothing. The pain is yecenia severity of 7/10. The pain is moderate. The pain does not radiate. Associated symptoms include a fever, malaise/fatigue and shortness of breath. Pertinent negatives include no anorexia, no chest pressure, no near-syncope, no orthopnea, no palpitations, no syncope, no nausea and no vomiting. She has tried NSAIDs for the symptoms. The treatment provided no relief. PAST MEDICAL HISTORY Diagnosis Date Allergic rhinitis due to allergen 02/2018 [facility] testing. Current severe episode of major depressive disorder without psychotic features without prior episode ([facility]) 09/14/2018 DNS (deviated nasal septum) Ex-smoker 01/10/2018 Started at age 18 and quit at 26. Smoked one cigar a day. MARCUS (generalized anxiety disorder) 09/14/2018 GERD (gastroesophageal reflux disease) Immunodeficiency ([facility]) IVIG Iron deficiency anemia 06/17/2018 Morbid obesity ([facility]) 06/15/2018 Nasal polyposis BOLA on CPAP Pleural effusion 06/15/2018 Severe persistent asthma with acute exacerbation 02/12/2018 Vitiligo PAST SURGICAL HISTORY Procedure Laterality Date SECTION HX 2011 PAST SURGICAL HISTORY OF 2015, 2017 B knee arthroscopic surgery SINUS SURGERY HX 2019 TONSILLECTOMY HX 2015 ALLERGIES Seasonal Allergies MEDICATIONS bumetanide (BUMEX) 1 mg tablet Take 1 tablet by mouth once daily. prednisoLONE acetate (PRED FORTE) 1 % ophthalmic suspension instill 1 drop into both eyes four times a day gmktemkckip-dgwgifbmu-btmmilhg (TRELEGY ELLIPTA) 200-62.5-25 mcg inhalation powder Inhale 1 Puff asinstructed once daily. benralizumab (FASENRA) 30 mg/mL injection Inject 1 mL subcutaneously every 4 weeks. buPROPion XL (WELLBUTRIN XL) 150 mg 24 hr tablet Take 1 tablet by mouth every morning. cetirizine (ZYRTEC) 10 mg tablet Take 1 tablet by mouth every afternoon. potassium chloride ER (KLOR-CON) 20 mEq tablet Take 1 tablet by mouth every afternoon. valACYclovir (VALTREX) 500 mg tablet Take 1 tablet by mouth two times a day. ferrous sulfate 325 mg (65 mg iron) tablet Take 1 tablet by mouth two times a day. montelukast (SINGULAIR) 10 mg tablet Take 1 tablet by mouth daily at bedtime. fluticasone (FLONASE) 50 mcg/actuation nasal spray Use 1 [place] in each nostril two times a day. Rinse mouth after use. famotidine (PEPCID) 20 mg tablet Take 1 tablet by mouth two times a day as needed (GERD 2nd line). sertraline (ZOLOFT) 50 mg tablet 1/2 a tablet by mouth once a day for 10 days then go to one tabletdaily levalbuterol (XOPENEX) 0.31 mg/3 mL nebulizer solution 0.31 mg. albuterol (PROVENTIL) 2.5 mg /3 mL (0.083 %) nebulizer solution Use 3 mL via nebulizer every 6 hours as needed for Wheezing/Shortness of Breath. COMPOUNDED PRESCRIPTION Please assess for portable oxygen concentrator. albuterol HFA (PROVENTIL HFA, VENTOLIN HFA) 90 mcg/actuation inhaler Inhale 2 Puffs as instructed. FAMILY HISTORY Problem Relation Age of Onset Asthma Mother Seizures Mother Asthma Brother Asthma Son Cancer Father Stage 4 lung cancer. Asthma Sister Diabetes Sister Allergies Maternal Grandmother Diabetes Maternal Grandmother Hypertension Maternal Grandmother Heart disease Maternal Grandfather Alzheimer's Disease No Family History Colon Cancer No Family History Breast Cancer No Family History Ovarian cancer No Family History Uterine Cancer No Family History Prostate Cancer No Family History Coronary Artery Disease No Family History Hyperlipidemia No Family History Kidney Disease No Family History Stroke No Family History Thyroid No Family History Psychiatry No Family History Social History Tobacco Use Smoking status: Former Current packs/day: 0.00 Average packs/day: 1 pack/day for 9.8 years (9.8 ttl pk-yrs) Types: Cigars, Cigarettes Start date: 2008 Quit date: 01/06/2018 Years since quittin.3 Smokeless tobacco: Never Tobacco comments: Parents smoked in childhood home Vaping Use Vaping status: Never Used Substance Use Topics Alcohol use: Yes Comment: rare: 5 times/year Drug use: No Review of Systems Constitutional: Positive for fever and malaise/fatigue. Respiratory: Positive for shortness of breath. Cardiovascular: Negative for palpitations, orthopnea, syncope and near-syncope. Gastrointestinal: Negative for anorexia, nausea and vomiting. Neurological: Positive for headaches. Objective BP 132/84 Pulse 116 Temp 36.9 C (98.5 F) Resp 17 Wt (!) 188.8 kg (416 lb 3.7 oz) LMP 09/29/2018 SpO2 (!) 63% BMI 58.05 kg/m Physical Exam Vitals and nursing note reviewed. Constitutional: General: She is not in acute distress. Appearance: Normal appearance. She is obese. She is not ill-appearing, toxic- appearing or diaphoretic. HENT: Head: Normocephalic and atraumatic. Right Ear: Ear canal and external ear normal. Left Ear: Ear canal and external ear normal. Nose: Congestion present. No rhinorrhea. Mouth/Throat: Mouth: Mucous membranes are moist. Pharynx: Posterior oropharyngeal erythema present. No oropharyngeal exudate. Eyes: General: Right eye: No discharge. Left eye: No discharge. Extraocular Movements: Extraocular movements intact. Conjunctiva/sclera: Conjunctivae normal. Pupils: Pupils are equal, round, and reactive to light. Cardiovascular: Rate and Rhythm: Normal rate and regular rhythm. Pulses: Normal pulses. Heart sounds: Normal heart sounds. No murmur heard. No friction rub. Pulmonary: Effort: Pulmonary effort is normal. No respiratory distress. Breath sounds: Normal breath sounds. No stridor. No wheezing, rhonchi or rales. Comments: Hypoxic Cough with deep inspiration Reduced air exchange Chest: Chest wall: No tenderness. Abdominal: General: Abdomen is flat. There is no distension. Palpations: Abdomen is soft. There is no mass. Tenderness: There is no abdominal tenderness. There is no right CVA tenderness, left CVA tenderness, guarding or rebound. Hernia: No hernia is present. Musculoskeletal: General: No swelling, tenderness, deformity or signs of injury. Normal range of motion. Cervical back: Normal range of motion and neck supple. No rigidity. Right lower leg: No edema. Left lower leg: No edema. Lymphadenopathy: Cervical: Cervical adenopathy present. Skin: General: Skin is warm and dry. Capillary Refill: Capillary refill takes less than 2 seconds. Coloration: Skin is not jaundiced or pale. Findings: No bruising, erythema, lesion or rash. Neurological: General: No focal deficit present. Mental Status: She is alert and oriented to person, place, and time. Cranial Nerves: No cranial nerve deficit. Sensory: No sensory deficit. Motor: No weakness. Coordination: Coordination normal. Gait: Gait normal. Psychiatric: Mood and Affect: Mood normal. Behavior: Behavior normal. Thought Content: Thought content normal. Judgment: Judgment normal. Assessment and Plan ASSESSMENT/PLAN: 1. Hypoxia - ICD9: 799.02, ICD10: R09.02 (primary diagnosis) Hypoxic here in clinic Recently admitted for same No xray available at time of exam Referred to ED for higher level of care and management 2. Headache, unspecified headache type - ICD9: 784.0, ICD10: R51.9 ??? Etiology ? Hypoxia vs flu vs intracranial Liberty Weir APRN.LINDA [facility] Tele[facility] encounter Note * Telephone Encounter - Margret Navarrete MA - 04/19/2024 1:05 PM EST Faxed to elda Navarrete [facility]12-[facility] Miscellaneous Notes* Telephone Encounter - Margret Navarrete MA - 04/19/2024 1:05 PM EST Faxed to elda Zavalaman, [place] * Telephone Encounter - Lovely Chan APRN.CNP - 04/19/2024 12:28 PM EST Printed. In outbox. Thank you, Lovely Chan APRN.LINDA * Telephone Encounter - Mayra Carter MA - 04/19/2024 12:23 PM EST Please print script Mayra Carter MA * Telephone Encounter - Louann Bermeo APRN.CNP - 04/19/2024 11:40 AM EST Please fax order. * Telephone Encounter - Charlotte Pandey - 04/19/2024 11:34 AM EST [facility] [place]. [facility] * Telephone Encounter - Brendan Adler LPN - 04/19/2024 11:30 AM EST Patient calling she had gone to [facility] for the support stockings. They are requesting a new rx with what compression for the knee high support stockings please. Can fax order to them. Did not pend order since not sure what compression wanted. Please advise documented in [facility] encounterProm[facility]12-[facility]24 Telephone encounter Note * Telephone Encounter - Lovely Chan APRN.CNP - 04/19/2024 12:28 PM EST Printed. In outbox. Thank you, Lovely Chan APRN.TWISTING OPERATOR [facility] Work Phone: 1(558) 191-177012-13-2024 Telephone encounter Note* Telephone Encounter - Mayra Carter MA - 04/19/2024 12:23 PM EST Please print script Mayra Carter MA [facility]12-13-2024 Telephone encounter Note* Telephone Encounter - Louann Bermeo APRN.CNP - 04/19/2024 11:40 AM EST Please fax order. [facility] Telephone encounter Note* Telephone Encounter - Charlotte Pandey - 04/19/2024 11:34 AM EST Patient would like to prescription sent to the [facility] in [place]. [facility] Work Phone: [phone] Telephone encounter Note* Telephone Encounter - Brendan Adler LPN - 04/19/2024 11:30 AM EST Patient calling she had gone to [facility] for the support stockings. They are requesting a new rx with what compression for the knee high support stockings please. Can fax order to them. Did not pend order since not sure what compression wanted. Please advise [facility] History of Present illness Narrative* Louann Bermeo, GALLO.TWISTING OPERATOR - 04/12/2024 1:39 PM EST Chief Complaint Patient presents with: Hospital F/U HPI Torrie Martinez is a 34 year old female who presents here today for Above Complaints.. Patient presents for Hospital F/U for sepsis, Acute on chronic respiratory failure. Patient reportsshe is more swollen than normal. Completed prednisone today. Patient was also switched from lasix to bumex. Requesting increase in bumex due to increase in weight and fluid retention. Past medical history, appointments, medications, allergies reviewed. Previous Medical History PAST MEDICAL HISTORY Diagnosis Date Allergic rhinitis due to allergen 02/2018 [place] [facility] testing. Current severe episode of major depressive disorder without psychotic features without prior episode ([facility]) 09/14/2018 DNS (deviated nasal septum) Ex-smoker 01/10/2018 Started at age 18 and quit at 26. Smoked one cigar a day. MARCUS (generalized anxiety disorder) 09/14/2018 GERD (gastroesophageal reflux disease) Immunodeficiency ([facility]) IVIG Iron deficiency anemia 06/17/2018 Morbid obesity ([facility]) 06/15/2018 Nasal polyposis BOLA on CPAP Pleural effusion 06/15/2018 Severe persistent asthma with acute exacerbation 02/12/2018 Vitiligo Previous Surgical History PAST SURGICAL HISTORY Procedure Laterality Date SECTION HX 2011 PAST SURGICAL HISTORY OF 2015, 2017 B knee arthroscopic surgery SINUS SURGERY HX 2019 TONSILLECTOMY HX 2015 Family History FAMILY HISTORY Problem Relation Age of Onset Asthma Mother Seizures Mother Asthma Brother Asthma Son Cancer Father Stage 4 lung cancer. Asthma Sister Diabetes Sister Allergies Maternal Grandmother Diabetes Maternal Grandmother Hypertension Maternal Grandmother Heart disease Maternal Grandfather Alzheimer's Disease No Family History Colon Cancer No Family History Breast Cancer No Family History Ovarian cancer No Family History Uterine Cancer No Family History Prostate Cancer No Family History Coronary Artery Disease No Family History Hyperlipidemia No Family History Kidney Disease No Family History Stroke No Family History Thyroid No Family History Psychiatry No Family History Patient Allergies ALLERGIES Allergen Reactions Seasonal Allergies Other: See Comments Congestion Current Medications Current Outpatient Medications on File Prior to Visit Medication Sig prednisoLONE acetate (PRED FORTE) 1 % ophthalmic suspension instill 1 drop into both eyes four times a day skbdrieeppx-sinnontzn-nwjhgkiy (TRELEGY ELLIPTA) 200-62.5-25 mcg inhalation powder Inhale 1 Puff asinstructed once daily. benralizumab (FASENRA) 30 mg/mL injection Inject 1 mL subcutaneously every 4 weeks. buPROPion XL (WELLBUTRIN XL) 150 mg 24 hr tablet Take 1 tablet by mouth every morning. cetirizine (ZYRTEC) 10 mg tablet Take 1 tablet by mouth every afternoon. furosemide (LASIX) 20 mg tablet Take 1 tablet by mouth every afternoon. potassium chloride ER (KLOR-CON) 20 mEq tablet Take 1 tablet by mouth every afternoon. valACYclovir (VALTREX) 500 mg tablet Take 1 tablet by mouth two times a day. ferrous sulfate 325 mg (65 mg iron) tablet Take 1 tablet by mouth two times a day. montelukast (SINGULAIR) 10 mg tablet Take 1 tablet by mouth daily at bedtime. fluticasone (FLONASE) 50 mcg/actuation nasal spray Use 1 [place] in each nostril two times a day. Rinse mouth after use. famotidine (PEPCID) 20 mg tablet Take 1 tablet by mouth two times a day as needed (GERD 2nd line). sertraline (ZOLOFT) 50 mg tablet 1/2 a tablet by mouth once a day for 10 days then go to one tabletdaily levalbuterol (XOPENEX) 0.31 mg/3 mL nebulizer solution 0.31 mg. albuterol (PROVENTIL) 2.5 mg /3 mL (0.083 %) nebulizer solution Use 3 mL via nebulizer every 6 hours as needed for Wheezing/Shortness of Breath. COMPOUNDED PRESCRIPTION Please assess for portable oxygen concentrator. albuterol HFA (PROVENTIL HFA, VENTOLIN HFA) 90 mcg/actuation inhaler Inhale 2 Puffs as instructed. No current facility-administered medications on file prior to visit. Social History Social History Tobacco Use Smoking status: Former Current packs/day: 0.00 Average packs/day: 1 pack/day for 9.8 years (9.8 ttl pk-yrs) Types: Cigars, Cigarettes Start date: 2008 Quit date: 01/06/2018 Years since quittin.2 Smokeless tobacco: Never Tobacco comments: Parents smoked in childhood home Vaping Use Vaping status: Never Used Substance Use Topics Alcohol use: Yes Comment: rare: 5 times/year Drug use: No Review of Symptoms REVIEW OF SYSTEMS SEE HPI EXAM: BP 117/73 Pulse 86 Resp 14 LMP 09/29/2018 General Appearance: Well appearing, alert, in no acute distress, well-hydrated, well nourished. Lungs: Lungs clear to auscultation. No wheezing, rhonchi, rales.. Heart: RRR without murmur, gallop, or rubs. No ectopy. Extremities: Edema: Severe edema to bilateral lower extremities. Peripheral Pulses: Normal. Health Maintenance List Hepatitis C Screening Never done HIV Screening Never done Cervical Cancer Screening Never done Influenza Vaccine(1) due on 01/07/2024 Covid-19 Vaccine( season) Never done Annual PCP Team Chronic Disease Visit due on 06/30/2024 DTaP,Tdap,Td Vaccine(2 - Td or Tdap) due on 06/30/2033 Spirometry Completed Pneumococcal Vaccine Completed HPV Vaccine Aged Out Hepatitis B Vaccine Discontinued ASSESSMENT/PLAN: 1. Oxygen dependent - ICD9: V46.2, ICD10: Z99.81 (primary diagnosis) - PARKING FOR HANDICAPPED 2. Lower extremity edema - ICD9: 782.3, ICD10: R60.0 - BELOW KNEE SURGICAL STOCKING - BUMETANIDE 1 MG TABLET 3. Hypokalemia - ICD9: 276.8, ICD10: E87.6 - BASIC METABOLIC PANEL 4. 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 Morbid obesity (HCC) - ICD9: 278.01, ICD10: E66.01 - Stable 6. Dependence on continuous supplemental oxygen - ICD9: V46.2, ICD10: Z99.81 - Continue O2 5L n/c Louann Bermeo APRN.TWISTING OPERATOR documented in this encounterProm[facility]11-27-[facility]24 Note. MICRO - Microbiology PROCEDURE: Blood Culture (bacterial) [*1] SOURCE: Blood BODY SITE: COLLECTED DATE/TIME: 03/29/2024 10:28 EST RECEIVED DATE/TIME: 03/29/2024 14:36 EST START DATE/TIME: 03/29/2024 14:36 EST FREE TEXT SOURCE: FINAL REPORTS Final Report [] Verified Date/Time/Personnel: 04/03/2024 14:59 EST Blood Culture: No Growth at 5 days. PRELIMINARY REPORTS Preliminary Report [] Verified Date/Time/Personnel: 03/29/2024 15:59 EST Culture has been received in lab and is no growth to date. Routine cultures are held for 5 days. Performing Locations *1: This test was performed at: [address]11-27-2024 Note. MICRO - Microbiology PROCEDURE: Blood Culture (bacterial) [*1] SOURCE: Blood BODY SITE: COLLECTED DATE/TIME: 03/29/2024 10:28 EST RECEIVED DATE/TIME: 03/29/2024 14:36 EST START DATE/TIME: 03/29/2024 14:36 EST FREE TEXT SOURCE: FINAL REPORTS Final Report [] Verified Date/Time/Personnel: 04/03/2024 14:59 EST Blood Culture: No Growth at 5 days. PRELIMINARY REPORTS Preliminary Report [] Verified Date/Time/Personnel: 03/29/2024 15:59 EST Culture has been received in lab and is no growth to date. Routine cultures are held for 5 days. Performing Locations *1: This test was performed at: [address]11-25-2024 Hospital Discharge instructions Patient Education 04/01/2024 09:52:34 Heart Failure, Diagnosis, Rlbs-tl-Ddvj Heart Failure, Diagnosis Heart failure means that your heart is not able to pump blood in the right way. This makes it hard for your body to work well. Heart failure is usually a long- term (chronic) condition. You must take good care of yourself and follow your treatment plan from your doctor. What are the causes? This condition may be caused by: High blood pressure. Build up of cholesterol and fat in the arteries. Heart attack. This injures the heart muscle. Heart valves that do not open and close properly. Damage of the heart muscle. This is also called cardiomyopathy. Lung disease. Abnormal heart rhythms. What increases the risk? The risk of heart failure goes up as a person ages. This condition is also more likely to develop in people who: Are overweight. Are male. Smoke or chew tobacco. Abuse alcohol or illegal drugs. Have taken medicines that can damage the heart. Have diabetes. Have abnormal heart rhythms. Have thyroid problems. Have low blood counts (anemia). What are the signs or symptoms? Symptoms of this condition include: Shortness of breath. Coughing. Swelling of the feet, ankles, legs, or belly. Losing weight for no reason. Trouble breathing. Waking from sleep because of the need to sit up and get more air. Rapid heartbeat. Being very tired. Feeling dizzy, or feeling like you may pass out (faint). Having no desire to eat. Feeling like you may vomit (nauseous). Peeing (urinating) more at night. Feeling confused. How is this treated? This condition may be treated with: Medicines. These can be given to treat blood pressure and to make the heart muscles stronger. Changes in your daily life. These may include eating a healthy diet, staying at a healthy body weight, quitting tobacco and illegal drug use, or doing exercises. Surgery. Surgery can be done to open blocked valves, or to put devices in the heart, such as pacemakers. A donor heart (heart transplant). You will receive a healthy heart from a donor. Follow these instructions at home: Treat other conditions as told by your doctor. These may include high blood pressure, diabetes, thyroid disease, or abnormal heart rhythms. Learn as much as you can about heart failure. Get support as you need it. Keep all follow-up visits as told by your doctor. This is important. Summary Heart failure means that your heart is not able to pump blood in the right way. This condition is caused by high blood pressure, heart attack, or damage of the heart muscle. Symptoms of this condition include shortness of breath and swelling of the feet, ankles, legs, or belly. You may also feel very tired or feel like you may vomit. You may be treated with medicines, surgery, or changes in your daily life. Treat other health conditions as told by your doctor. This information is not intended to replace advice given to you by your health care provider. Make sure you discuss any questions you have with your health care provider. Document Released: 01/31/2009 Document Revised: 07/12/2019 Document Reviewed: 07/12/2019 [employer] Patient Education 2020 [employer]. 04/01/2024 09:52:25 Acute Respiratory Failure, Adult Acute Respiratory Failure, Adult Acute respiratory failure occurs when there is not enough oxygen passing from your lungs to your body. When this happens, your lungs have trouble removing carbon dioxide from the blood. This causes your blood oxygen level to drop too low as carbon dioxide builds up. Acute respiratory failure is a medical emergency. It can develop quickly, but it is temporary if treated promptly. Your lung capacity, or how much air your lungs can hold, may improve with time, exercise, and treatment. What are the causes? There are many possible causes of acute respiratory failure, including: Lung injury. Chest injury or damage to the ribs or tissues near the lungs. Lung conditions that affect the flow of air and blood into and out of the lungs, such as pneumonia,acute respiratory distress syndrome, and cystic fibrosis. Medical conditions, such as strokes or spinal cord injuries, that affect the muscles and nerves that control breathing. Blood infection (sepsis). Inflammation of the pancreas (pancreatitis). A blood clot in the lungs (pulmonary embolism). A large-volume blood transfusion. Yen. Near-drowning. Seizure. Smoke inhalation. Reaction to medicines. Alcohol or drug overdose. What increases the risk? This condition is more likely to develop in people who have: A blocked airway. Asthma. A condition or disease that damages or weakens the muscles, nerves, bones, or tissues that are involved in breathing. A serious infection. A health problem that blocks the unconscious reflex that is involved in breathing, such as hypothyroidism or sleep apnea. A lung injury or trauma. What are the signs or symptoms? Trouble breathing is the main symptom of acute respiratory failure. Symptoms may also include: Rapid breathing. Restlessness or anxiety. Skin, lips, or fingernails that appear blue (cyanosis). Rapid heart rate. Abnormal heart rhythms (arrhythmias). Confusion or changes in behavior. Tiredness or loss of energy. Feeling sleepy or having a loss of consciousness. How is this diagnosed? Your health care provider can diagnose acute respiratory failure with a medical history and physical exam. During the exam, your health care provider will listen to your heart and check for cracklingor wheezing sounds in your lungs. Your may also have tests to confirm the diagnosis and determine what is causing respiratory failure. These tests may include: Measuring the amount of oxygen in your blood (pulse oximetry). The measurement comes from a small device that is placed on your finger, earlobe, or toe. Other blood tests to measure blood gases and to look for signs of infection. Sampling your cerebral spinal fluid or tracheal fluid to check for infections. Chest X-ray to look for fluid in spaces that should be filled with air. Electrocardiogram (ECG) to look at the heart's electrical activity. How is this treated? Treatment for this condition usually takes places in a hospital intensive care unit (ICU). Treatment depends on what is causing the condition. It may include one or more treatments until your symptoms improve. Treatment may include: Supplemental oxygen. Extra oxygen is given through a tube in the nose, a face mask, or a wu. A device such as a continuous positive airway pressure (CPAP) or bi-level positive airway pressure (BiPAP or BPAP) machine. This treatment uses mild air pressure to keep the airways open. A mask or other device will be placed over your nose or mouth. A tube that is connected to a motor will deliveroxygen through the mask. Ventilator. This treatment helps move air into and out of the lungs. This may be done with a bag and mask or a machine. For this treatment, a tube is placed in your windpipe (trachea) so air and oxygen can flow to the lungs. Extracorporeal membrane oxygenation (ECMO). This treatment temporarily takes over the function of the heart and lungs, supplying oxygen and removing carbon dioxide. ECMO gives the lungs a chance to recover. It may be used if a ventilator is not effective. Tracheostomy. This is a procedure that creates a hole in the neck to insert a breathing tube. Receiving fluids and medicines. Rocking the bed to help breathing. Follow these instructions at home: Take pckv-jik-bfygybr and prescription medicines only as told by your health care provider. Return to normal activities as told by your health care provider. Ask your health care provider what activities are safe for you. Keep all follow-up visits as told by your health care provider. This is important. How is this prevented? Treating infections and medical conditions that may lead to acute respiratory failure can help prevent the condition from developing. Contact a health care provider if: You have a fever. Your symptoms do not improve or they get worse. Get help right away if: You are having trouble breathing. You lose consciousness. Your have cyanosis or turn blue. You develop a rapid heart rate. You are confused. These symptoms may represent a serious problem that is an emergency. Do not wait to see if the symptoms will go away. Get medical help right away. Call your local emergency services (911 in the [place] Do not drive yourself to the hospital. This information is not intended to replace advice given to you by your health care provider. Make sure you discuss any questions you have with your health care provider. Document Released: 04/29/2014 Document Revised: 04/06/2018 Document Reviewed: 11/09/2016 [employer] Patient Education 2020 [employer]. 04/01/2024 09:51:41 Fluid Restriction Fluid Restriction With some health conditions, you must restrict your fluid intake. This means that you need to limitthe amount of fluid that you drink each day (fluid restriction). When you have a fluid restriction,you must carefully measure and keep track of the amount of fluid that you drink. Your health care provider will identify the specific amount of fluid you are allowed each day (fluid allowance). This amount may depend on several things, such as: How well your kidneys function. How much fluid you are keeping (retaining) in your body tissues. Your blood pressure. Your heart function. Your blood sodium level. What is my plan? Your health care provider recommends that you limit your fluid intake to per day. What counts toward my fluid intake? Your fluid intake includes all liquids that you drink, as well as any foods that become liquid at room temperature. The following are examples of some fluids that you will have to restrict: Tea, coffee, soda, lemonade, milk, water, juice, sports drinks, and nutritional supplement beverages. Alcoholic beverages. Cream. Gravy. Ice cubes. Soup and broth. The following are examples of foods that become liquid at room temperature. These foods will also count toward your fluid intake. Ice cream and ice milk. Frozen yogurt and sherbet. Frozen ice pops. Flavored gelatin. How do I keep track of my fluid intake? Each morning, fill a jug with the amount of water that is equal to your daily fluid allowance. You can use this water as a guideline for fluid allowance. Each time you take in any form of fluid (including ice cubes and foods that become liquid at room temperature), pour an equal amount of water outof the container. This helps you to see how much fluid you are taking in. It also helps you to see how much more fluid you can take in during the rest of the day. The following conversions may also be helpful in measuring your fluid intake: 1 cup equals 8 oz (240 mL). cup equals 6 oz (180 mL). ? cup equals 5? oz (160 mL). cup equals 4 oz (120 mL). ? cup equals 2? oz (80 mL). cup equals 2 oz (60 mL). 2 Tbsp equals 1 oz (30 mL). What are tips for following this plan? General instructions Make sure that you stay within your recommended fluid allowance each day. Always measure and keep track of your fluids (including ice cubes and foods that become liquid at room temperature). Use small cups and glasses and learn to sip fluids slowly. Try frozen fruits between meals, such as grapes or strawberries. These can satisfy thirst without adding to your fluid intake. Swallow your pills along with meals or soft foods such as applesauce or mashed potatoes, instead ofwith liquids. Doing this helps you to save your fluid allowance for something that you enjoy. Weigh yourself each day Weigh yourself every day. Keeping track of your daily weight can help you and your health care provider to notice as soon as possible if you are retaining too much fluid in your body. Follow this sequence every mornin.Urinate. 2.Weigh yourself. 3.Eat breakfast. Wear the same amount of clothing each time you weigh yourself. Write down your daily weight. Give this weight record to your health care provider. If your weight is going up, you may be retaining too much fluid. Every 1 lb (0.45 kg) of body weight that you gain is a sign that your body is retaining 2 cups (480 mL) of fluid. Manage your thirst Add lemon juice or a slice of fresh lemon to water or ice. Doing this helps to satisfy your thirst. Freeze fruit juice or water in an ice cube tray. Use this as part of your fluid allowance. These cubes are useful for quenching your thirst. Before you freeze the juice or water, measure how much liquid you use to fill a cube section of the ice tray. Subtract this amount from your day's allowance each time you consume a frozen cube. Avoid salty (high-sodium) foods. These foods make you thirsty and make it more difficult to stay within your daily fluid allowance. Keep the temperature in your home at a cooler level. Keep the air in your home as humid as possible. Dry air increases thirst. Avoid being out in the hot sun, which can cause you to sweat and become thirsty. To help avoid dry mouth, brush your teeth often or rinse out your mouth with mouthwash. Lemon wedges, hard sour candies, chewing gum, or breath spray may also help to moisten your mouth. What are some signs that I may be taking in too much fluid? You may be taking in too much fluid if: Your weight increases. Contact your health care provider if you gain weight rapidly. Your face, hands, legs, feet, and abdomen start to swell. You have trouble breathing. Summary With some health conditions, you must limit (restrict) your fluid intake. This means that you need to limit the amount of fluid you drink each day (fluid restriction). Your health care provider will identify the specific amount of fluid that you are allowed each day. When you have a fluid restriction, you must carefully measure and keep track of the amount of fluidthat you drink. Your fluid intake includes all liquids that you drink, as well as any foods that become liquid at room temperature (such as ice cream and gelatin). You may be taking in too much fluid if your weight increases, your body starts to swell, or you have trouble breathing. This information is not intended to replace advice given to you by your health care provider. Make sure you discuss any questions you have with your health care provider. Document Released: 02/19/2008 Document Revised: 08/15/2019 Document Reviewed: 12/27/2017 [employer] Patient Education 2020 [employer] Follow Up Care 03/29/2024 15:05:48 With:ISRA QUAN MD Address: [address] [place] [phone] When:1-2 days Comments:Please call the office to schedule a hospital follow-up appointment. [facility] 11-25-2024 Note Discharge Instructions Thank you for allowing [facility] to assist you with your healthcare needs. The following is importantdischarge information regarding your hospital visit. Your Care Team ISRA QUAN MD Your Diagnosis Acute pulmonary edema Chronic respiratory failure What to do next Instructions From Your Doctor While you were in the hospital you were treated with steroids, diuretics, and antibiotics. We removed about 3 liters of fluid overall but additional IV diuretics at this time may cause harm. I recommend you take a steroid taper, antibiotics, and low dose diuretic on discharge then follow up with providers involved in your care. Follow Up Appointments Follow Up with ISRA QUAN MD When:Within 1-2 days Where:[address] [place] [address]- The Following Activity and Diet Have Been Ordered for You Discharge Activity - Ordered -- Resume your pre-hospitalization activity, 04/01/24 9:38:00 EST Discharge Diet - Ordered -- No changes were made to your diet during your hospital stay. Please resume your pre hospitalization diet on discharge., 04/01/24 9:38:00 EST The Following Equipment Has Been Ordered for You No qualifying data available. The Following Treatments Have Been Ordered for You Discharge Labs No qualifying data available. Discharge Radiology No qualifying data available. Other Therapies No qualifying data available. Post Acute Orders No qualifying data available. Someone Will Contact You Regarding These Home Health Referrals No home referrals have been ordered for you. No one will call you. Allergies [facility] Medications Please ask your primary doctor or pharmacist before taking any other medication not listed, including over the counter drugs, herbal medications, vitamins and or supplements as they may interact withyour home medications. What How Much When Instructions Last Dose New bumetanide (bumetanide 0.5 mg oral tablet) 1 tab(s) by mouth Every day Duration: 30 Days Pickup at [facility] #[id number] Take today at home New cefdinir (cefdinir 300 mg oral capsule) 1 cap by mouth Every 12 hours Duration: 3 Days Pickup at [facility] #[id number] Take this evening New predniSONE (predniSONE 10 mg oral tablet) See instructions Take 4 tabs daily for 3 days then take 3 tabs daily for 3 days then take 2 tabs daily for 3 days then take 1 tab daily for 3 days. Pickup at [facility] #[id number] 08:00AM, follow directions on prescription Changed famotidine (Pepcid 20 mg oral tablet) 1 tab(s) by mouth Once a day 08:00AM Unchanged albuterol (albuterol 2.5 mg/ 3 mL (0.083%) inhalation solution) 3 Milliliter by inhalation Every 4 hours as needed for Shortness of breath or wheezing Duration: 14 Days Unchanged albuterol-ipratropium (DuoNeb) 3 Milliliter by inhalation Every 2 Hours as needed for Shortness of breath or wheezing Unchanged albuterol-ipratropium (DuoNeb) 3 Milliliter by inhalation Every 4 hours Unchanged buPROPion (Wellbutrin XL 150 mg/ 24 hours oral tablet, extended release) 1 tab(s) by mouth Every 24 hours 08:00AM Unchanged ferrous sulfate (ferrous sulfate 325 mg (65 mg elemental iron) oral delayed release tablet) 1 tab(s) by mouth Once a day 08:00AM Unchanged loratadine (Claritin 10 mg oral tablet) 1 tab(s) by mouth Once a day 05:30AM Unchanged montelukast 10 Milligram by mouth Once a day Not Given Unchanged sertraline 100 Milligram by mouth Once a day 08:00AM Pharmacy Information [facility] #[id number]: [address], [place] [id number] [phone] What How Much When Comments Stop Taking aspirin 81 Milligram by mouth Once a day Stop Taking fluticasone-salmeterol (fluticasone-salmeterol 232 mcg-14 mcg/ inh inhalation powder) 1 puff(s) by inhalation Two (2) times a day Stop Taking fluticasone-vilanterol (Breo Ellipta 200 mcg-25 mcg/ inh inhalation powder) 1 puff(s) by inhalation Every day Stop Taking methylPREDNISolone (SOLU-Medrol) 60 Milligram IV Push Every 8 hours Stop Taking umeclidinium-vilanterol (Anoro Ellipta 62.5 mcg-25 mcg/ inh inhalation powder) 1 puff(s) by inhalation Once a day Please take this list to your next doctor s visit. Bring all medications you take, including over the counter medications, herbals and other supplements with you to your doctor s visit. Patients and families are reminded to discard old lists and to update any records with all medication providers or retail pharmacies. Medication Leaflets cefdinir (BEV billy damon) What is the most important information I should know about cefdinir? Do not take this medicine if you are allergic to cefdinir, or to similar antibiotics, such as Ceftin, Cefzil, Keflex, and others. What is cefdinir? Cefdinir is a cephalosporin (SEF a low spor in) antibiotic that is used to treat many different types of infections caused by bacteria. Cefdinir may also be used for purposes not listed in this medication guide. What should I discuss with my healthcare provider before taking cefdinir? You should not take this medicine if you are allergic to cefdinir or any other cephalosporin antibiotic (cefadroxil, cefprozil, cefazolin, cefalexin, Keflex, and others). Tell your doctor if you have ever had: kidney disease (or if you are on dialysis); intestinal problems, such as colitis; or an allergy to any drugs (especially penicillins). Cefdinir liquid contains sucrose. Talk to your doctor before using this form of cefdinir if you have diabetes. Tell your doctor if you are or . How should I take cefdinir? Follow all directions on your prescription label and read all medicine guides or instruction sheets. Use the medicine exactly as directed. Shake the oral suspension (liquid) before you measure a dose. Use the dosing syringe provided, or use a medicine dose-measuring device (not a kitchen spoon). You may take cefdinir with or without food. Use this medicine for the full prescribed length of time, even if your symptoms quickly improve. Skipping doses can increase your risk of infection that is resistant to medication. Cefdinir will not treat a viral infection such as the flu or a common cold. Cefdinir can affect the results of certain medical tests. Tell any doctor who treats you that you are using cefdinir. Store at room temperature away from moisture and heat. Throw away any unused cefdinir liquid that is older than 10 days. What happens if I miss a dose? Take the medicine as soon as you can, but skip the missed dose if it is almost time for your next dose. Do not take two doses at one time. What happens if I overdose? Seek emergency medical attention or call the Poison Help line at . Overdose symptoms may include nausea, vomiting, stomach pain, diarrhea, or a seizure. What should I avoid while taking cefdinir? Avoid using antacids or mineral supplements that contain aluminum, magnesium, or iron within 2 hours before or after taking cefdinir. Antacids or iron can make it harder for your body to absorb cefdinir. This does not include baby formula fortified with iron. Antibiotic medicines can cause diarrhea, which may be a sign of a new infection. If you have diarrhea that is watery or bloody, call your doctor before using anti-diarrhea medicine. What are the possible side effects of cefdinir? Get emergency medical help if you have signs of an allergic reaction (hives, difficult breathing, swelling in your face or throat) or a severe skin reaction (fever, sore throat, burning eyes, skin pain, red or purple skin rash with blistering and peeling). Call your doctor at once if you have: severe stomach pain, diarrhea that is watery or bloody (even if it occurs months after your last dose); fever, chills, body aches, flu symptoms; pale skin, easy bruising, unusual bleeding; seizure (convulsions); fever, weakness, confusion; dark colored urine, jaundice (yellowing of the skin or eyes); or kidney problems--little or no urination, swelling in your feet or ankles, feeling tired or short ofbreath. Common side effects may include: nausea, vomiting, stomach pain, diarrhea; vaginal itching or discharge; headache; or rash (including diaper rash in an taking liquid cefdinir. This is not a complete list of side effects and others may occur. Call your doctor for medical advice about side effects. You may report side effects to FDA at 1-362-GNE-8586. What other drugs will affect cefdinir? Tell your doctor about all your other medicines, especially: probenecid; or vitamin or mineral supplements that contain iron. This list is not complete. Other drugs may affect cefdinir, including prescription and etyb-lqf-bfovzec medicines, vitamins, and herbal products. Not all possible drug interactions are listed here. Where can I get more information? Your pharmacist can provide more information about cefdinir. Remember, keep this and all other medicines out of the reach of children, never share your medicines with others, and use this medication only for the indication prescribed. Every effort has been made to ensure that the information provided by [employer] is accurate, up-to-date, and complete, but no guarantee is made to that effect. Drug information contained herein may be time sensitive. [employer] information has been compiled for use by healthcare practitioners and consumers in the [place] and therefore [employer] does not warrant that uses outside of the [place] are appropriate, unless specifically indicated otherwise. [employer] drug information does not endorse drugs, diagnose patients or recommend therapy. [employer] drug information isan informational resource designed to assist licensed healthcare practitioners in caring for their p atients and/or to serve consumers viewing this service as a supplement to, and not a substitute for, the expertise, skill, knowledge and judgment of healthcare practitioners. The absence of a warningfor a given drug or drug combination in no way should be construed to indicate that the drug or drug combination is safe, effective or appropriate for any given patient. [employer] does not assume any responsibility for any aspect of healthcare administered with the aid of information [employer] provides. The information contained herein is not intended to cover all possible uses, directions, precautions, warnings, drug interactions, allergic reactions, or adverse effects. If you have questions about the drugs you are taking, check with your doctor, nurse or pharmacist. Copyright 6808-7098 [employer]. Version: 9.01. Revision Date: 12/09/2022. prednisone (PRED ni sonbrenda) Nelly What is the most important information I should know about prednisone? You should not use prednisone if you have a fungal infection anywhere in your body. You should not stop using prednisone suddenly. Follow your doctor's instructions about tapering your dose. What is prednisone? Prednisone is a steroid that reduces inflammation in the body, and also suppresses your immune system. Prednisone is used to treat many different conditions such as hormonal disorders, skin diseases, arthritis, lupus, psoriasis, allergic conditions, ulcerative colitis, Crohn's disease, eye diseases, lung diseases, asthma, tuberculosis, blood cell disorders, kidney disorders, leukemia, lymphoma, multi ple sclerosis, organ transplant rejection, swelling from a brain tumor or injury. Prednisone may also be used for purposes not listed in this medication guide. What should I discuss with my healthcare provider before taking prednisone? You should not use prednisone if you are allergic to it, or if you have a fungal infection anywherein your body. Steroid medication can weaken your immune system, making it easier for you to get an infection or worsening an infection you already have. Tell your doctor about any illness or infection you've had within the past several weeks. Tell your doctor if you have ever had: heart problems, high blood pressure, or a heart attack; glaucoma or cataracts; herpes infection of the eyes; past or present tuberculosis; a parasite infection that causes diarrhea (such as threadworms); any illness that causes diarrhea; underactive thyroid; diabetes; a stomach ulcer, diverticulitis; a colostomy or ileostomy; osteoporosis or low bone mineral density (steroid medication can increase your risk of bone loss); low levels of calcium or potassium in your blood; cirrhosis or other liver disease; mental illness or psychosis; or a muscle disorder such as myasthenia gravis. Long-term use of steroids may lead to bone loss (osteoporosis), especially if you smoke or drink alcohol, if you do not exercise, or if you do not get enough vitamin D or calcium in your diet. It is not known whether this medicine will harm an unborn baby. Tell your doctor if you are or plan to become . You should not breastfeed while using prednisone. How should I take prednisone? Follow all directions on your prescription label and read all medication guides or instruction sheets. Your doctor may occasionally change your dose. Use the medicine exactly as directed. Prednisone is taken daily or every other day, depending on the condition being treated. You may need to take the medicine at a certain time of day. Follow your doctor's instructions about when and how often to take this medicine. Take with food if prednisone upsets your stomach. Measure liquid medicine carefully. Use the dosing syringe provided, or use a medicine dose-measuring device (not a kitchen spoon). Swallow the delayed-release tablet whole and do not crush, chew, or break it. Prednisone can weaken (suppress) your immune system, and you may get an infection more easily. Callyour doctor if you have signs of infection (fever, weakness, cold or flu symptoms, skin sores, diarrhea, frequent or recurring illness). If you have major surgery or a severe injury or infection, your prednisone dose needs may change. Make sure any doctor caring for you knows you are using this medicine. If you use this medicine long-term, you may need medical tests and vision exams. In case of emergency, wear or carry medical identification to let others know you use a steroid. You should not stop using prednisone suddenly. Follow your doctor's instructions about tapering your dose. Store at room temperature away from moisture, heat, and light. What happens if I miss a dose? Take the medicine as soon as you can, but skip the missed dose if it is almost time for your next dose. Do not take two doses at one time. What happens if I overdose? Seek emergency medical attention or call the Poison Help line at . High doses or long-term use of prednisone can lead to thinning skin, easy bruising, changes in bodyfat (especially in your face, neck, back, and waist), increased acne or facial hair, menstrual problems, impotence, or loss of interest in sex. What should I avoid while taking prednisone? Do not receive a 'live' vaccine while using prednisone. The vaccine may not work as well and may not fully protect you from disease. Live vaccines include measles, mumps, rubella (MMR), polio, rotavirus, typhoid, yellow fever, varicella (chickenpox), zoster (shingles), and nasal flu (influenza) vaccine. Avoid being near people who are sick or have infections. Call your doctor for preventive treatment if you are exposed to chickenpox or measles. These conditions can be serious or even fatal in peoplewho are using steroid medicine. Avoid drinking alcohol. What are the possible side effects of prednisone? Get emergency medical help if you have signs of an allergic reaction: hives; difficult breathing; swelling of your face, lips, tongue, or throat. Call your doctor at once if you have: muscle pain or weakness; blurred vision, tunnel vision, eye pain, or seeing halos around lights; severe depression, changes in personality, unusual thoughts or behavior; bloody or tarry stools, coughing up blood or vomit that looks like coffee grounds; swelling, rapid weight gain, feeling short of breath; irregular heartbeats; severe headache, pounding in your neck or ears; decreased adrenal gland hormones--muscle weakness, tiredness, diarrhea, nausea, menstrual changes, skin discoloration, craving salty foods, and feeling light- headed; or low potassium level--leg cramps, constipation, irregular heartbeats, fluttering in your chest, increased thirst or urination, numbness or tingling, muscle weakness or limp feeling. Prednisone can affect growth in children. Tell your doctor if your child is not growing at a normalrate while using this medicine. Common side effects may include: weight gain (especially in your face or your upper back and torso); increased appetite; mood changes, trouble sleeping; changes in your menstrual periods; problems with memory or thought; muscle or joint pain; weakness; headache, dizziness, spinning sensation; nausea, bloating, loss of appetite; slow wound healing; or acne, increased sweating, thinning skin, bruising, pinpoint spots under your skin. This is not a complete list of side effects and others may occur. Call your doctor for medical advice about side effects. You may report side effects to FDA at 9-392-GKB-8001. What other drugs will affect prednisone? Sometimes it is not safe to use certain medications at the same time. Some drugs can affect your blood levels of other drugs you take, which may increase side effects or make the medications less effective. Tell your doctor about all your current medicines. Many drugs can affect prednisone, especially: bupropion; cyclosporine; digoxin; ketoconazole; an antibiotic; control pills or hormone replacement therapy; a diuretic or 'water pill'; insulin or oral diabetes medicine; a blood thinner--warfarin, Coumadin, Jantoven; or NSAIDs (nonsteroidal anti-inflammatory drugs)--aspirin, ibuprofen (Advil, Motrin), naproxen (Aleve), celecoxib, diclofenac, indomethacin, meloxicam, and others. This list is not complete and many other drugs may affect prednisone. This includes prescription and jjik-jam-uuirbjc medicines, vitamins, and herbal products. Not all possible drug interactions are listed here. Where can I get more information? Your pharmacist can provide more information about prednisone. Remember, keep this and all other medicines out of the reach of children, never share your medicines with others, and use this medication only for the indication prescribed. Every effort has been made to ensure that the information provided by [employer] is accurate, up-to-date, and complete, but no guarantee is made to that effect. Drug information contained herein may be time sensitive. [employer] information has been compiled for use by healthcare practitioners and consumers in the [place] and therefore [employer] does not warrant that uses outside of the [place] are appropriate, unless specifically indicated otherwise. [employer] drug information does not endorse drugs, diagnose patients or recommend therapy. [employer] drug information isan informational resource designed to assist licensed healthcare practitioners in caring for their p atients and/or to serve consumers viewing this service as a supplement to, and not a substitute for, the expertise, skill, knowledge and judgment of healthcare practitioners. The absence of a warningfor a given drug or drug combination in no way should be construed to indicate that the drug or drug combination is safe, effective or appropriate for any given patient. [employer] does not assume any responsibility for any aspect of healthcare administered with the aid of information [employer] [address] provides. The information contained herein is not intended to cover all possible uses, directions, precautions, warnings, drug interactions, allergic reactions, or adverse effects. If you have questions about the drugs you are taking, check with your doctor, nurse or pharmacist. Copyright 1485-0167 [employer]. Version: 10.. Revision Date: 08/02/2018. bumetanide (oral/injection) (byhernandez HO a nide) What is the most important information I should know about bumetanide? You should not use bumetanide if you are unable to urinate, if you have severe kidney or liver disease, if you are severely dehydrated, or if you have an electrolyte imbalance (low potassium or magnesium). What is bumetanide? Bumetanide is diuretic that is used to treat fluid retention (edema) in people with congestive heart failure, liver disease, or a kidney disorder such as nephrotic syndrome. Bumetanide may also be used for purposes not listed in this medication guide. What should I discuss with my healthcare provider before using bumetanide? You should not use bumetanide if you are allergic to it, or if you have: severe kidney disease or are unable to urinate; severe liver disease or cirrhosis; severe dehydration; or an electrolyte imbalance (such as low levels of potassium or magnesium in your blood). Tell your doctor if you have ever had: a heart rhythm disorder; liver disease; kidney disease (or if you are on dialysis); gout; an allergy to sulfa drugs; or if you are on a low-salt diet. Tell your doctor if you are or breast-feeding. Bumetanide is not approved for use by anyone younger than 18 years old. How should I take bumetanide? Follow all directions on your prescription label and read all medication guides or instruction sheets. Your doctor may occasionally change your dose. Use the medicine exactly as directed. Bumetanide injection is injected into a muscle, or given as an infusion into a vein. A healthcare provider will give you this injection if you are unable to take the medicine by mouth. Bumetanide will make you urinate more often and you may get dehydrated easily. Follow your doctor'sinstructions about taking potassium supplements or getting enough salt and potassium in your diet. Call your doctor if you are sick with vomiting or diarrhea, or if you are sweating more than usual.You can easily become dehydrated while taking bumetanide. This can lead to very low blood pressure,a serious electrolyte imbalance, or kidney failure. You will need frequent medical tests. Store at room temperature away from heat, moisture, and light. What happens if I miss a dose? Bumetanide is sometimes used only once, so you may not be on a dosing schedule. If you are on a dosing schedule, take the medicine as soon as you can, but skip the missed dose if it is almost time for your next dose. Do not take two doses at one time. What happens if I overdose? Seek emergency medical attention or call the Poison Help line at . Overdose symptoms may include extreme dizziness or weakness, confusion, loss of appetite, stomach cramps, and vomiting. What should I avoid while taking bumetanide? Avoid becoming dehydrated. Follow your doctor's instructions about the type and amount of liquids you should drink while you are taking bumetanide. What are the possible side effects of bumetanide Get emergency medical help if you have signs of an allergic reaction: hives; difficult breathing; swelling of your face, lips, tongue, or throat. Call your doctor at once if you have: hearing problems; confusion, hallucinations, problems with thought or memory; trouble speaking or understanding what is said to you; unusual weakness; twitching, or a seizure; weak or shallow breathing; easy bruising, unusual bleeding, purple or red spots under your skin; low magnesium--dizziness, irregular heartbeats, feeling jittery, muscle cramps, muscle spasms, cough or choking feeling; low potassium level--leg cramps, constipation, irregular heartbeats, fluttering in your chest, increased thirst or urination, numbness or tingling, muscle weakness or limp feeling; or dehydration symptoms--feeling very thirsty or hot, being unable to urinate, heavy sweating, or hot and dry skin. Common side effects may include: muscle cramps; dizziness; low blood presure; nausea; or headache. This is not a complete list of side effects and others may occur. Call your doctor for medical advice about side effects. You may report side effects to FDA at 6-715-IMR-9574. What other drugs will affect bumetanide? Bumetanide can harm your kidneys, especially if you also use certain medicines for infections, cancer, osteoporosis, organ transplant rejection, bowel disorders, high blood pressure, or pain or arthritis (including Advil, Motrin, and Aleve). Tell your doctor about all your other medicines, especially: lithium; digoxin; probenecid; indomethacin; blood pressure medication; or any other diuretic. This list is not complete. Other drugs may affect bumetanide, including prescription and jenw-tpi-liiipqy medicines, vitamins, and herbal products. Not all possible drug interactions are listed here. Where can I get more information? Your pharmacist can provide more information about bumetanide. Remember, keep this and all other medicines out of the reach of children, never share your medicines with others, and use this medication only for the indication prescribed. Every effort has been made to ensure that the information provided by [employer]') is accurate, up-to-date, and complete, but no guarantee is made to that effect. Drug information contained herein may be time sensitive. [employer] [address] information has been compiled for use by healthcare practitioners and consumers in the [place] and therefore [address] does not warrant that uses outside of the [place] are appropriate, unless specifically indicated otherwise. [employer] drug information does not endorse drugs, diagnose patients or recommend therapy. [employer] drug information isan informational resource designed to assist licensed healthcare practitioners in caring for their p atients and/or to serve consumers viewing this service as a supplement to, and not a substitute for, the expertise, skill, knowledge and judgment of healthcare practitioners. The absence of a warningfor a given drug or drug combination in no way should be construed to indicate that the drug or drug combination is safe, effective or appropriate for any given patient. [facility] does not assume any responsibility for any aspect of healthcare administered with the aid of information [facility] provides. The information contained herein is not intended to cover all possible uses, directions, precautions, warnings, drug interactions, allergic reactions, or adverse effects. If you have questions about the drugs you are taking, check with your doctor, nurse or pharmacist. Copyright 6937-9966 [employer]. Version: 9.01. Revision Date: 12/08/2022. Education Materials Heart Failure, Diagnosis Heart failure means that your heart is not able to pump blood in the right way. This makes it hard for your body to work well. Heart failure is usually a long- term (chronic) condition. You must take good care of yourself and follow your treatment plan from your doctor. What are the causes? This condition may be caused by: High blood pressure. Build up of cholesterol and fat in the arteries. Heart attack. This injures the heart muscle. Heart valves that do not open and close properly. Damage of the heart muscle. This is also called cardiomyopathy. Lung disease. Abnormal heart rhythms. What increases the risk? The risk of heart failure goes up as a person ages. This condition is also more likely to develop in people who: Are overweight. Are male. Smoke or chew tobacco. Abuse alcohol or illegal drugs. Have taken medicines that can damage the heart. Have diabetes. Have abnormal heart rhythms. Have thyroid problems. Have low blood counts (anemia). What are the signs or symptoms? Symptoms of this condition include: Shortness of breath. Coughing. Swelling of the feet, ankles, legs, or belly. Losing weight for no reason. Trouble breathing. Waking from sleep because of the need to sit up and get more air. Rapid heartbeat. Being very tired. Feeling dizzy, or feeling like you may pass out (faint). Having no desire to eat. Feeling like you may vomit (nauseous). Peeing (urinating) more at night. Feeling confused. How is this treated? This condition may be treated with: Medicines. These can be given to treat blood pressure and to make the heart muscles stronger. Changes in your daily life. These may include eating a healthy diet, staying at a healthy body weight, quitting tobacco and illegal drug use, or doing exercises. Surgery. Surgery can be done to open blocked valves, or to put devices in the heart, such as pacemakers. A donor heart (heart transplant). You will receive a healthy heart from a donor. Follow these instructions at home: Treat other conditions as told by your doctor. These may include high blood pressure, diabetes, thyroid disease, or abnormal heart rhythms. Learn as much as you can about heart failure. Get support as you need it. Keep all follow-up visits as told by your doctor. This is important. Summary Heart failure means that your heart is not able to pump blood in the right way. This condition is caused by high blood pressure, heart attack, or damage of the heart muscle. Symptoms of this condition include shortness of breath and swelling of the feet, ankles, legs, or belly. You may also feel very tired or feel like you may vomit. You may be treated with medicines, surgery, or changes in your daily life. Treat other health conditions as told by your doctor. This information is not intended to replace advice given to you by your health care provider. Make sure you discuss any questions you have with your health care provider. Document Released: 01/31/2009 Document Revised: 07/12/2019 Document Reviewed: 07/12/2019 [employer] Patient Education 2020 [employer] Acute Respiratory Failure, Adult Acute respiratory failure occurs when there is not enough oxygen passing from your lungs to your body. When this happens, your lungs have trouble removing carbon dioxide from the blood. This causes your blood oxygen level to drop too low as carbon dioxide builds up. Acute respiratory failure is a medical emergency. It can develop quickly, but it is temporary if treated promptly. Your lung capacity, or how much air your lungs can hold, may improve with time, exercise, and treatment. What are the causes? There are many possible causes of acute respiratory failure, including: Lung injury. Chest injury or damage to the ribs or tissues near the lungs. Lung conditions that affect the flow of air and blood into and out of the lungs, such as pneumonia,acute respiratory distress syndrome, and cystic fibrosis. Medical conditions, such as strokes or spinal cord injuries, that affect the muscles and nerves that control breathing. Blood infection (sepsis). Inflammation of the pancreas (pancreatitis). A blood clot in the lungs (pulmonary embolism). A large-volume blood transfusion. Yen. Near-drowning. Seizure. Smoke inhalation. Reaction to medicines. Alcohol or drug overdose. What increases the risk? This condition is more likely to develop in people who have: A blocked airway. Asthma. A condition or disease that damages or weakens the muscles, nerves, bones, or tissues that are involved in breathing. A serious infection. A health problem that blocks the unconscious reflex that is involved in breathing, such as hypothyroidism or sleep apnea. A lung injury or trauma. What are the signs or symptoms? Trouble breathing is the main symptom of acute respiratory failure. Symptoms may also include: Rapid breathing. Restlessness or anxiety. Skin, lips, or fingernails that appear blue (cyanosis). Rapid heart rate. Abnormal heart rhythms (arrhythmias). Confusion or changes in behavior. Tiredness or loss of energy. Feeling sleepy or having a loss of consciousness. How is this diagnosed? Your health care provider can diagnose acute respiratory failure with a medical history and physical exam. During the exam, your health care provider will listen to your heart and check for cracklingor wheezing sounds in your lungs. Your may also have tests to confirm the diagnosis and determine what is causing respiratory failure. These tests may include: Measuring the amount of oxygen in your blood (pulse oximetry). The measurement comes from a small device that is placed on your finger, earlobe, or toe. Other blood tests to measure blood gases and to look for signs of infection. Sampling your cerebral spinal fluid or tracheal fluid to check for infections. Chest X-ray to look for fluid in spaces that should be filled with air. Electrocardiogram (ECG) to look at the heart's electrical activity. How is this treated? Treatment for this condition usually takes places in a hospital intensive care unit (ICU). Treatment depends on what is causing the condition. It may include one or more treatments until your symptoms improve. Treatment may include: Supplemental oxygen. Extra oxygen is given through a tube in the nose, a face mask, or a wu. A device such as a continuous positive airway pressure (CPAP) or bi-level positive airway pressure (BiPAP or BPAP) machine. This treatment uses mild air pressure to keep the airways open. A mask or other device will be placed over your nose or mouth. A tube that is connected to a motor will deliveroxygen through the mask. Ventilator. This treatment helps move air into and out of the lungs. This may be done with a bag and mask or a machine. For this treatment, a tube is placed in your windpipe (trachea) so air and oxygen can flow to the lungs. Extracorporeal membrane oxygenation (ECMO). This treatment temporarily takes over the function of the heart and lungs, supplying oxygen and removing carbon dioxide. ECMO gives the lungs a chance to recover. It may be used if a ventilator is not effective. Tracheostomy. This is a procedure that creates a hole in the neck to insert a breathing tube. Receiving fluids and medicines. Rocking the bed to help breathing. Follow these instructions at home: Take civq-nyj-gswloru and prescription medicines only as told by your health care provider. Return to normal activities as told by your health care provider. Ask your health care provider what activities are safe for you. Keep all follow-up visits as told by your health care provider. This is important. How is this prevented? Treating infections and medical conditions that may lead to acute respiratory failure can help prevent the condition from developing. Contact a health care provider if: You have a fever. Your symptoms do not improve or they get worse. Get help right away if: You are having trouble breathing. You lose consciousness. Your have cyanosis or turn blue. You develop a rapid heart rate. You are confused. These symptoms may represent a serious problem that is an emergency. Do not wait to see if the symptoms will go away. Get medical help right away. Call your local emergency services (911 in the [place] Do not drive yourself to the hospital. This information is not intended to replace advice given to you by your health care provider. Make sure you discuss any questions you have with your health care provider. Document Released: 04/29/2014 Document Revised: 04/06/2018 Document Reviewed: 11/09/2016 [employer] Patient Education 2020 [employer] Fluid Restriction With some health conditions, you must restrict your fluid intake. This means that you need to limitthe amount of fluid that you drink each day (fluid restriction). When you have a fluid restriction,you must carefully measure and keep track of the amount of fluid that you drink. Your health care provider will identify the specific amount of fluid you are allowed each day (fluid allowance). This amount may depend on several things, such as: How well your kidneys function. How much fluid you are keeping (retaining) in your body tissues. Your blood pressure. Your heart function. Your blood sodium level. What is my plan? Your health care provider recommends that you limit your fluid intake to per day. What counts toward my fluid intake? Your fluid intake includes all liquids that you drink, as well as any foods that become liquid at room temperature. The following are examples of some fluids that you will have to restrict: Tea, coffee, soda, lemonade, milk, water, juice, sports drinks, and nutritional supplement beverages. Alcoholic beverages. Cream. Gravy. Ice cubes. Soup and broth. The following are examples of foods that become liquid at room temperature. These foods will also count toward your fluid intake. Ice cream and ice milk. Frozen yogurt and sherbet. Frozen ice pops. Flavored gelatin. How do I keep track of my fluid intake? Each morning, fill a jug with the amount of water that is equal to your daily fluid allowance. You can use this water as a guideline for fluid allowance. Each time you take in any form of fluid (including ice cubes and foods that become liquid at room temperature), pour an equal amount of water outof the container. This helps you to see how much fluid you are taking in. It also helps you to see how much more fluid you can take in during the rest of the day. The following conversions may also be helpful in measuring your fluid intake: 1 cup equals 8 oz (240 mL). cup equals 6 oz (180 mL). ? cup equals 5? oz (160 mL). cup equals 4 oz (120 mL). ? cup equals 2? oz (80 mL). cup equals 2 oz (60 mL). 2 Tbsp equals 1 oz (30 mL). What are tips for following this plan? General instructions Make sure that you stay within your recommended fluid allowance each day. Always measure and keep track of your fluids (including ice cubes and foods that become liquid at room temperature). Use small cups and glasses and learn to sip fluids slowly. Try frozen fruits between meals, such as grapes or strawberries. These can satisfy thirst without adding to your fluid intake. Swallow your pills along with meals or soft foods such as applesauce or mashed potatoes, instead ofwith liquids. Doing this helps you to save your fluid allowance for something that you enjoy. Weigh yourself each day Weigh yourself every day. Keeping track of your daily weight can help you and your health care provider to notice as soon as possible if you are retaining too much fluid in your body. Follow this sequence every mornin. Urinate. 2. Weigh yourself. 3. Eat breakfast. Wear the same amount of clothing each time you weigh yourself. Write down your daily weight. Give this weight record to your health care provider. If your weight is going up, you may be retaining too much fluid. Every 1 lb (0.45 kg) of body weight that you gain is a sign that your body is retaining 2 cups (480 (more content not included)... [id number] Discharge summary Date of Service 04/01/24 Discharge Diagnosis Acute respiratory distress associated with chronic respiratory failure on 5L NC at baseline Acute on chronic asthma exacerbation Acute on chronic heart failure w/ diastolic dysfunction Sepsis due to left sided PNA Upper respiratory infection due to rhino/enterovirus Chronic anemia BOLA on CPAP at home Class 3 obesity BMI 55 Anxiety and depression GERD Common variable immunodeficiency [facility] 34 yof hx morbid obesity, asthma, chronic respiratory failure on FIVE liters of nasal canula, anxiety and depression, iron deficiency anemia, GERD, common variable immunodeficiency, heart failure w/ diastolic dysfunction presented due to increasing shortness of breath, malaise, chills, night sweatsand cough as well as increased bilateral lower extremity edema. In the ER T 38.7, 92% on her home 5L NC. On exam she was with significant bilateral lower extremity edema and crackles at bases. CXR reported effusions. Rhinoenterovirus identified. She was started on bumex drip, diuresed ~3L and transitioned to oral diuretics. Continued on steroids for concomitant asthma exacerbation and prescribed a ntibiotics for possible superimposed bacterial pneumonia. UA on admission was positive but urine culture was negative. She was encouraged to follow up with all providers involved in her care on discharge. An echo was performed during admission, it is pending at the time of discharge. Allergies NKA Consults No qualifying data available. Physical Exam Vitals and Measurements T: 36.5 C (Oral) TMIN: 36.5 C (Oral) TMAX: 36.8 C (Oral) HR: 68 (Monitored) RR: 17 BP: 112/74 SpO2:98% WT: 175.7 kg Weight Current Weight Dosing Weight: 173.4 kg (04/01/24) Current Weight: 175.7 kg (04/01/24) Dosing Weight: 179 kg (03/31/24) Current Weight: 173.4 kg (04/01/24) general: well appearing, no distress cardiac: RRR lungs: decreased breaths bilaterally, speaking full sentences while on her home 5L NC Pending Labs and Studies ECHO PENDING AT TIME OF DISCHARGE Code Status Code Status - Ordered -- 03/29/24 23:45:00 EST, Full Code, Constant Order Admission Date 03/29/24 Discharge Date 04/01/24 Patient Instructions While you were in the hospital you were treated with steroids, diuretics, and antibiotics. We removed about 3 liters of fluid overall but additional IV diuretics at this time may cause harm. I recommend you take a steroid taper, antibiotics, and low dose diuretic on discharge then follow up with providers involved in your care. Medications New Prescription bumetanide (bumetanide 0.5 mg oral tablet)1 tab(s) by mouth every day for 30 Days. Refills: 0. cefdinir (cefdinir 300 mg oral capsule)1 cap by mouth every 12 hours for 3 Days. Refills: 0. predniSONE (predniSONE 10 mg oral tablet)Take 4 tabs daily for 3 days then take 3 tabs daily for 3 days then take 2 tabs daily for 3 days then take 1 tab daily for 3 days.. Refills: 0. Changed famotidine (Pepcid 20 mg oral tablet)1 tab(s) by mouth once a day. Unchanged albuterol (albuterol 2.5 mg/3 mL (0.083%) inhalation solution)3 Milliliter by inhalation every 4 hours as needed Shortness of breath or wheezing for 14 Days. Refills: 0. albuterol-ipratropium (DuoNeb)3 Milliliter by inhalation Every 2 Hours as needed Shortness of breath or wheezing. albuterol-ipratropium (DuoNeb)3 Milliliter by inhalation every 4 hours. buPROPion (Wellbutrin XL 150 mg/24 hours oral tablet, extended release)1 tab(s) by mouth every 24 hours. ferrous sulfate (ferrous sulfate 325 mg (65 mg elemental iron) oral delayed release tablet)1 tab(s)by mouth once a day. loratadine (Claritin 10 mg oral tablet)1 tab(s) by mouth once a day. [id number] Milligram by mouth once a day. Milligram by mouth once a day. Discontinued [id number] Milligram by mouth once a day. fluticasone-salmeterol (fluticasone-salmeterol 232 mcg-14 mcg/inh inhalation powder)1 puff(s) by inhalation two (2) times a day. fluticasone-vilanterol (Breo Ellipta 200 mcg-25 mcg/inh inhalation powder)1 puff(s) by inhalation every day. methylPREDNISolone (SOLU-Medrol)60 Milligram IV Push every 8 hours. umeclidinium-vilanterol (Anoro Ellipta 62.5 mcg-25 mcg/inh inhalation powder)1 puff(s) by inhalation once a day. Follow Up Follow Up with ISRA QUAN MD When:Within 1-2 days Where:[address] [place] [address]- Follow Up Appointments No qualifying data available. Follow Up Labs/Studies Discharge Labs No Follow-up Labs Discharge Studies No Follow-up Studies Discharge Diet Discharge Diet - Ordered -- No changes were made to your diet during your hospital stay. Please resume your pre hospitalization diet on discharge., 04/01/24 9:38:00 EST Discharge Activity Discharge Activity - Ordered -- Resume your pre-hospitalization activity, 04/01/24 9:38:00 EST Condition on Discharge fair Discharge Disposition home Information Provided To patient Time Spent 45min Digitally Signed by ANSELMO MADISON MD on 04/01/2024 04:57 PM [id number] Note Date of Service 03/31/24 Subjective Today reports dramatic improvement swelling legs and less chest congestion. Feeling breathing improved. Objective Vitals and Measurements T: 36.6 C (Oral) TMIN: 36.6 C (Oral) TMAX: 36.8 C (Oral) HR: 70 (Monitored) RR: 20 BP: 103/60 SpO2:99% WT: 179 kg Intake and Output 7AM Yesterday to 7AM Today Intake and Output (Last 24 hours) Intake Administration Information 80.00 Oral Intake 520.00 Output Urine Voided 500.00 Urinary Catheter Output: 1925.00 Stool Count 0.00 Urine Count 1.00 Emesis Count 0.00 Total Summary Total Intake 600.00 Total Output 2425.00 Fluid Balance -1825.00 Physical Exam general: obese cardiac: RRR lungs: decreased breath sounds bilaterally Weight Dosing Weight: 179 kg (03/31/24) Dosing Weight: 191.4 kg (03/31/24) Medications Medications (22) Active Scheduled: (13) albuterol - ipratropium 2.5 mg-0.5 mg/3 mL Inhal Jocelyn UD 3 mL, Inhalation, q4hRT budesonide 0.25 mg/2 mL Susp UD 0.25 mg 2 mL, Inhalation, BIDRT bupropion 150 mg/24 hours ER tablet 150 mg 1 tab(s), Oral, q24h cefTRIAXone IVP syringe 2 gram(s) 20 mL, IV Push (INT), qDay enoxaparin 40 mg/ 0.4mL syringe 40 mg 0.4 mL, Subcutaneous, qDay famotidine 20 mg tablet 20 mg 1 tab(s), Oral, qDay ferrous sulfate 325 mg Tablet 325 mg 1 tab(s), Oral, qDay loratadine 10 mg Tablet 10 mg 1 tab(s), Oral, qDay magnesium oxide 400 mg Tablet 400 mg 1 tab(s), Oral, qDay montelukast 10 mg Tablet 10 mg 1 tab(s), Oral, qHS potassium chloride 20 mEq ER tablet 20 mEq 1 tab(s), Oral, qDayM predniSONE 20 mg tablet 40 mg 2 tab(s), Oral, qDayM sertraline 100 mg tablet 100 mg 1 tab(s), Oral, qDay Continuous: (1) bumetanide 10 mg [0.5 mg/hr] + Sodium Chloride 0.9% 60 mL 60 mL, Intravenous, 5 mL/hr PRN: (8) acetaminophen 325 mg Tablet 650 mg 2 tab(s), Oral, q4h acetaminophen 325 mg Tablet 650 mg 2 tab(s), Oral, q4h albuterol - ipratropium 2.5 mg-0.5 mg/3 mL Inhal Jocelyn UD 3 mL, Inhalation, q2hRT dextrose 50% Solution Disp syringe 50 mL 12.5 gram(s) 25 mL, IV Push, AsDirected guaifenesin 100 mg/5 mL Liquid SUGAR-FREE 120 mL 200 mg 10 mL, Oral, q4h melatonin 3 mg tablet 3 mg 1 tab(s), Oral, qHS ondansetron 2 mg/ 1 mL 2 mL INJ 4 mg 2 mL, IV Push, q4h polyethylene glycol 3350 - UD packet 17 gram(s) 15 mL, Oral, qDay Lab Results 03/31 03:51 WBC: 17.5 H Hgb: 12.7 Hct: 42.2 Platelet: 306 Neutrophil %: 81.2 H Glucose Level: 109 Sodium Level: 140 Potassium Level: 3.8 BUN: 17.0 Creatinine Lvl (s): 0.74 03/30 05:26 WBC: 11.1 H Hgb: 11.4 L Hct: 38.2 Platelet: 248 Neutrophil %: 89.2 H Glucose Level: 242 H Sodium Level: 139 Potassium Level: 4.4 BUN: 12.0 Creatinine Lvl (s): 0.59 EKG No qualifying data available. Assessment/Plan Acute respiratory distress associated with chronic respiratory failure on 5L NC at baseline Acute on chronic asthma exacerbation Acute on chronic heart failure w/ diastolic dysfunction Sepsis due to left sided PNA Upper respiratory infection due to rhino/enterovirus Chronic anemia BOLA on CPAP at home Class 3 obesity BMI 55 Anxiety and depression GERD Common variable immunodeficiency Vitiligo Today reports swelling lower extremities and chest congestion improved. Her urine output is below what I would have expected. She reports shes regularly recording her output on a notepad. It is critical I have 100% accurate output while shes on the drip so we can appropriately get her well. Weir catheter was inserted and fluid restriction was started. With her overall feeling better today I feel like we are on the right track. Continue current antibiotics for possible superimposed bacterial PNA infection. Supportive care for viral URI. CPAP as at home. Continue prednisone 40 qd. Level of Care Indication SD monitor (other: specify in note) DVT Prophylaxis Enoxaparin SQ Maintenance IVF Indication NA / No maintenance IVF Indwelling Urinary Catheter Indication Other: specify in note Anticipated Timeline of Discharge 24 hours Anticipated DC Disposition Home without services Digitally Signed by ANSELMO MADISON MD on 03/31/2024 04:36 PM [id number] Note. MICRO - Microbiology PROCEDURE: Urine Culture [O1 *1] SOURCE: Urine BODY SITE: COLLECTED DATE/TIME: 03/29/2024 11:53 EST RECEIVED DATE/TIME: 03/29/2024 18:47 EST START DATE/TIME: 03/29/2024 18:47 EST FREE TEXT SOURCE: FINAL REPORTS Final Report [] Verified Date/Time/Personnel: 2024 14:39 EST 10,000 - 50,000 cfu/ml Mixed growth consistent with normal urogenital jed. Order Comments O1: Urine Culture Added by Discern Performing Locations *1: This test was performed at: [facility], [address] [place] [address], [facility] , [facility]11-23-2024 Evaluation + Plan noteExtracted from: Title:Clinical Document Author:TOI LIN MD Date:03/30/24 [facility]ist History and Physical Date of Admission: patient is being admitted on March 29, 2024 Chief complaint: shortness of breath History of present illness: History is taken from talking with the patient as well as reviewing medical records. Patient was accepted as a transfer from [facility] emergency room by my colleague. Patient has a past medical history of morbid obesity, asthma, chronic hypoxic respiratory failure on 5 L nasal cannula, anxiety/depression, iron deficiency anemia, Gerd, common variable immunodeficiency, diastolic heart failure. Patient was last discharged from here in December 2021 and during that admission the patient was here for asthma exacerbation. The patient reports that for the last two days she has had progressively worsening shortness of breath. She has been having fevers, chills and night sweats. Has a chronic nonproductive cough that is unchanged. She states that she has ongoing lower extremity edema. Denies chest pain. She did have multiple sick contacts while watching a recent sporting event. Since presenting to the emergency room the patient has been febrile to 38.7, hemodynamically stable, 92% 5 L nasal cannula. The following labs and imaging were personally reviewed WBC 14.8 hemoglobin 11.5 which is around her baseline urinalysis is concerning for infection CMP within normal limits Pro BNP 167 lactic acid 0.9 negative for COVID-19/flu/RSV chest x-ray is concerning for small to moderate left pleural effusion with adjacent atelectasis or infiltrate. EKG personally reviewed and interpreted showed sinus tachycardia with a heart rate of 134 Prior to transfer they ordered blood and urine cultures and the patient was given ceftriaxone and azithromycin Past medical history: Abdominal pain Headache Lightheadedness Nausea and vomiting Pneumonia section Tonsillectomy Family history: Mother: Seizures; Stroke Father: Cancer Grandparent: Diabetes Social history: Denies smoking cigarettes or alcohol consumption Medications: Home Medications (11) Active albuterol 2.5 mg/3 mL (0.083%) inhalation solution 2.5 mg = 3 mL, PRN, Inhalation, q4hRT aspirin 81 mg, Oral, qDay Claritin 10 mg oral tablet 10 mg = 1 tab(s), Oral, qDay DuoNeb 3 mL, Inhalation, q4hRT DuoNeb 3 mL, PRN, Inhalation, q2hRT ferrous sulfate 325 mg (65 mg elemental iron) oral delayed release tablet 325 mg = 1 tab(s), Oral, qDay montelukast 10 mg, Oral, qDay Pepcid 20 mg oral tablet 20 mg = 1 tab(s), Oral, qDay sertraline 100 mg, Oral, qDay SOLU-Medrol 60 mg = 1.5 mL, IV Push, q8h Wellbutrin XL 150 mg/24 hours oral tablet, extended release 150 mg = 1 tab(s), Oral, q24h Allergies: NKA Review of systems: See HPI for pertinent positives and negatives. All other review of systems have been reviewed and they are negative. Vitals Signs(Last 24 hrs)__Last Charted Minimum Maximum IUA270(MAR 29:07)127(MAR 29:07)127(MAR 29:) DBP71(MAR 29:)71(MAR 29:)71(MAR 29:) Physical examination: HEENT: No Pallor, No Icterus Cardiac: RRR, No murmur Lungs: very diminished breath sounds Abdomen: Soft Non tender Musculoskeletal: No joint pains or swelling Extremities: No edema, good pulses Neurological: Alert, no deficits Skin: No rash, no nodules Labs: as mentioned in the HPI. Assessment and plan: Patient was accepted as a transfer from [facility] emergency department by my colleague on March 29, 2024 due to having acute hypoxic respiratory failure. Acute on chronic hypoxic respiratory failure on home 5 L nasal cannula secondary to asthma exacerbation with concern for pneumonia and heart failure. Patient will be on step down with monitor. Acute on chronic asthma exacerbation. Negative for COVID-19/flu/RSV. I will check a respiratory virus panel. Chest x-ray is concerning for pneumonia versus atelectasis. I will continue the patient on ceftriaxone and azithromycin due to the patient having a fever and leukocytosis. If the respiratory virus panel is positive then would stop antibiotics. If the respiratory virus panel is negative then would treat her for pneumonia. Acute on chronic diastolic heart failure exacerbation. Will start the patient on IV diuretics. Will get an echocardiogram. Chronic anemia. Stable Urinary tract infection. Blood and urine cultures in process. Patient will be on ceftriaxone. Morbid obesity Anxiety/depression. Continue home medications Gerd. Continue Protonix Chronic common variable immunodeficiency. Patient reports that she used to get monthly IVIG infusions however since she has moved down here she has not followed up with anyone and has not had any infusions in over two years. Prophylaxis Lovenox Code status full code [facility] 11-23-2024 Note Date of Service 03/30/24 Subjective poor historian, follows outpt w/ pulm. Objective Vitals and Measurements T: 36.7 C (Oral) HR: 84 (Monitored) RR: 16 BP: 126/86 SpO2: 95% HT: 185 cm WT: 190.9 kg BMI: 55.51 Intake and Output 7AM Yesterday to 7AM Today Intake and Output (Last 24 hours) Intake Oral Intake 440.00 Output Urine Voided 300.00 Stool Count 0.00 Total Summary Total Intake 440.00 Total Output 300.00 Fluid Balance 140.00 Physical Exam diffuse widespread lower extremity edema. decreased breath sounds throughout. no respiratory distress. on her home 5L NC. Weight Dosing Weight: 190.9 kg (03/30/24) Dosing Weight: 190 kg (03/29/24) Medications Medications (22) Active Scheduled: (13) albuterol - ipratropium 2.5 mg-0.5 mg/3 mL Inhal Jocelyn UD 3 mL, Inhalation, q4hRT azithromycin IV 500 mg 5 mL, IV Piggyback, qDay bupropion 150 mg/24 hours ER tablet 150 mg 1 tab(s), Oral, q24h cefTRIAXone IVP syringe 2 gram(s) 20 mL, IV Push (INT), qDay enoxaparin 40 mg/ 0.4mL syringe 40 mg 0.4 mL, Subcutaneous, qDay famotidine 20 mg tablet 20 mg 1 tab(s), Oral, qDay ferrous sulfate 325 mg Tablet 325 mg 1 tab(s), Oral, qDay loratadine 10 mg Tablet 10 mg 1 tab(s), Oral, qDay magnesium oxide 400 mg Tablet 400 mg 1 tab(s), Oral, qDay methylPREDNISolone succ 40mg (40 mg/1mL) after dilution 40 mg 1 mL, IV Push, q8hr montelukast 10 mg Tablet 10 mg 1 tab(s), Oral, qDay potassium chloride 20 mEq ER tablet 20 mEq 1 tab(s), Oral, qDayM sertraline 100 mg tablet 100 mg 1 tab(s), Oral, qDay Continuous: (1) bumetanide 10 mg [0.5 mg/hr] + Sodium Chloride 0.9% 60 mL 60 mL, Intravenous, 5 mL/hr PRN: (8) acetaminophen 325 mg Tablet 650 mg 2 tab(s), Oral, q4h acetaminophen 325 mg Tablet 650 mg 2 tab(s), Oral, q4h albuterol - ipratropium 2.5 mg-0.5 mg/3 mL Inhal Jocelyn UD 3 mL, Inhalation, q2hRT dextrose 50% Solution Disp syringe 50 mL 12.5 gram(s) 25 mL, IV Push, AsDirected guaifenesin 100 mg/5 mL Liquid SUGAR-FREE 120 mL 200 mg 10 mL, Oral, q4h melatonin 3 mg tablet 3 mg 1 tab(s), Oral, qHS ondansetron 2 mg/ 1 mL 2 mL INJ 4 mg 2 mL, IV Push, q4h polyethylene glycol 3350 - UD packet 17 gram(s) 15 mL, Oral, qDay Lab Results 03/30 05:26 WBC: 11.1 H Hgb: 11.4 L Hct: 38.2 Platelet: 248 Neutrophil %: 89.2 H Glucose Level: 242 H Sodium Level: 139 Potassium Level: 4.4 BUN: 12.0 Creatinine Lvl (s): 0.59 EKG No qualifying data available. Assessment/Plan Acute respiratory distress associated with chronic respiratory failure on 5L NC at baseline Acute on chronic asthma exacerbation Acute on chronic heart failure w/ diastolic dysfunction Sepsis due to left sided PNA Upper respiratory infection due to rhino/enterovirus Chronic anemia BOLA on CPAP at home Class 3 obesity BMI 55 Anxiety and depression GERD Common variable immunodeficiency Vitiligo Admitted to hospital for acute resp distress. Shes on 5L NC when shes feeling well which is felt due to underlying asthma, fluid per pt, and body habitus. Currently w/ resp distress related to upper respiratory infection. Shes right now on her home O2 but with severe increased swelling lower extremities bilaterally. High suspicion for underlying hfpef exacerbation potentially in setting of URI. Will start bumex drip, s/p lasix IV. Ordered scheduled mg and kcl. Purewick placed. Will follow up response to diuresis. Yue ly wt. Sepsis present on admit fever tachycardia source pulmonary. Continue ceftriaxone. Steroids adjusted to prednisone 40 qd. cpap as at home. Level of Care Indication SD monitor (CHF exacerbation) DVT Prophylaxis Enoxaparin SQ Maintenance IVF Indication NA / No maintenance IVF Indwelling Urinary Catheter Indication NA No indwelling catheter Anticipated Timeline of Discharge 48 hours tbd depends on response to regimen. Anticipated DC Disposition Home without services Digitally Signed by ANSELMO MADISON MD on 2024 09:29 AM Digitally Signed by ANSELMO MADISON MD on 2024 09:31 AM Digitally Signed by ANSELMO MADISON MD on 2024 04:16 PM [id number] Note. MICRO - Microbiology PROCEDURE: Streptococcus Pneumoniae Urine Antig [^1 *1] SOURCE: Urine, Clean Catch BODY SITE: COLLECTED DATE/TIME: 2024 04:29 EST RECEIVED DATE/TIME: 2024 04:40 EST START DATE/TIME: 2024 04:40 EST FREE TEXT SOURCE: FINAL REPORTS Final Report [] Verified Date/Time/Personnel: 2024 05:23 EST Presumptive negative for pneumococcal pneumonia, suggesting no current or recent pneumococcal infection. Infection due to Strep pneumoniae cannot be ruled out since the antigen present in the sample may be below the detection limit of the test. Interpretive Data ^1: Streptococcus Pneumoniae Urine Antig This test has not been evaluated on patients taking antibiotics for greater than 24 hours or on patients who have recently completed an antibiotic regimen. The accuracy of this test has not been proven in young children. Performing Locations *1: This test was performed at: [address], [facility] , [facility]11-23-2024 Note. MICRO - Microbiology PROCEDURE: Legionella Urine Ag [*1] SOURCE: Urine BODY SITE: COLLECTED DATE/TIME: 2024 04:29 EST RECEIVED DATE/TIME: 2024 04:40 EST START DATE/TIME: 2024 04:40 EST FREE TEXT SOURCE: FINAL REPORTS Final Report [] Verified Date/Time/Personnel: 2024 05:22 EST Presumptive negative for L. pneumophila serogroup 1 antigen in urine, suggesting no recent or current infection. Legionnaire's disease cannot be ruled out since other serogroups and species may also cause disease. Performing Locations *1: This test was performed at: [address], [facility] , [facility] [id number] Respiratory therapy Hospital Progress note Respiratory Therapy Evaluation Entered On: 2024 1:34 EST Performed On: 2024 1:33 EST by Trinh Bazan SWEETBREAD TRIMMER Respiratory Therapy Evaluation Chest X-Ray : Infiltrates or atelectasis in one lobe Respiratory Therapy Evaluation Score : 7 RT Evaluation Steps : Chart review completed, Assessment completed: RR, HR, Auscultation, Cough, Patient Interview completed Respiratory Evaluation Triage Score : (6-10) Freq: TIDRT & Albuterol Q2hRT prn RT Assessment [Frequency/Schedule] : Therapeutic interchange, discontinue future evaluations Trinh Bazan RRT - 2024 2:42 EST Pulmonary Status : Severe or exacerbated lung disease or acute pulmonary process Surgical Status : No surgery Respiratory Pattern (RT) : RR 10-20 BPM, Regular pattern Breath Sounds (RT) : Diminished due to poor inspiratory effort Cough (RT) : Strong, non-productive Level of Activity : Ambulatory Mental Status : Alert, oriented and cooperative Beni Derickswati Rivas SWEETBREAD TRIMMER - 2024 1:33 EST Digitally Signed by Trinh Bazan SWEETBREAD TRIMMER on 2024 02:42 AM [id number] HCoV 229E RNA GUNJAN+non-probe Ql (Nph)Not Detected *NA* (03/30/24 1:22 AM)AH Auto Viro/Sero [id number] History and physical note [facility] Hospitalist History and Physical Date of Admission: patient is being admitted on March 29, 2024 Chief complaint: shortness of breath History of present illness: History is taken from talking with the patient as well as reviewing medical records. Patient was accepted as a transfer from [facility] emergency room by my colleague. Patient has a past medical history of morbid obesity, asthma, chronic hypoxic respiratory failure on 5 L nasal cannula, anxiety/depression, iron deficiency anemia, Gerd, common variable immunodeficiency, diastolic heart failure. Patient was last discharged from here in December 2021 and during that admission the patient was herefor asthma exacerbation. The patient reports that for the last two days she has had progressively worsening shortness of breath. She has been having fevers, chills and night sweats. Has a chronic nonproductive cough that is unchanged. She states that she has ongoing lower extremity edema. Denies chest pain. She did have multiple sick contacts while watching a recent sporting event. Since presenting to the emergency room the patient has been febrile to 38.7, hemodynamically stable, 92% 5 L nasal cannula. The following labs and imaging were personally reviewed WBC 14.8 hemoglobin 11.5 which is around her baseline urinalysis is concerning for infection CMP within normal limits Pro BNP 167 lactic acid 0.9 negative for COVID-19/flu/RSV chest x-ray is concerning for small to moderate left pleural effusion with adjacent atelectasis or infiltrate. EKG personally reviewed and interpreted showed sinus tachycardia with a heart rate of 134 Prior to transfer they ordered blood and urine cultures and the patient was given ceftriaxone and azithromycin Past medical history: Abdominal pain Headache Lightheadedness Nausea and vomiting Pneumonia section Tonsillectomy Family history: Mother: Seizures; Stroke Father: Cancer Grandparent: Diabetes Social history: Denies smoking cigarettes or alcohol consumption Medications: Home Medications (11) Active albuterol 2.5 mg/3 mL (0.083%) inhalation solution 2.5 mg = 3 mL, PRN, Inhalation, q4hRT aspirin 81 mg, Oral, qDay Claritin 10 mg oral tablet 10 mg = 1 tab(s), Oral, qDay DuoNeb 3 mL, Inhalation, q4hRT DuoNeb 3 mL, PRN, Inhalation, q2hRT ferrous sulfate 325 mg (65 mg elemental iron) oral delayed release tablet 325 mg = 1 tab(s), Oral, qDay montelukast 10 mg, Oral, qDay Pepcid 20 mg oral tablet 20 mg = 1 tab(s), Oral, qDay sertraline 100 mg, Oral, qDay SOLU-Medrol 60 mg = 1.5 mL, IV Push, q8h Wellbutrin XL 150 mg/24 hours oral tablet, extended release 150 mg = 1 tab(s), Oral, q24h Allergies: NKA Review of systems: See HPI for pertinent positives and negatives. All other review of systems have been reviewed and they are negative. Vitals Signs(Last 24 hrs)__Last Charted Minimum Maximum [id number](MAR 29:07)127(MAR 29:07)127(MAR 29:) DBP71(MAR 29:)71(MAR 29:07)71(MAR 29:) Physical examination: HEENT: No Pallor, No Icterus Cardiac: RRR, No murmur Lungs: very diminished breath sounds Abdomen: Soft Non tender Musculoskeletal: No joint pains or swelling Extremities: No edema, good pulses Neurological: Alert, no deficits Skin: No rash, no nodules Labs: as mentioned in the HPI. Assessment and plan: Patient was accepted as a transfer from [facility] emergency department by my colleague on March 29, 2024 due to having acute hypoxic respiratory failure. Acute on chronic hypoxic respiratory failure on home 5 L nasal cannula secondary to asthma exacerbation with concern for pneumonia and heart failure. Patient will be on step down with monitor. Acute on chronic asthma exacerbation. Negative for COVID-19/flu/RSV. I will check a respiratory virus panel. Chest x-ray is concerning for pneumonia versus atelectasis. I will continue the patient onceftriaxone and azithromycin due to the patient having a fever and leukocytosis. If the respiratoryvirus panel is positive then would stop antibiotics. If the respiratory virus panel is negative then would treat her for pneumonia. Acute on chronic diastolic heart failure exacerbation. Will start the patient on IV diuretics. Willget an echocardiogram. Chronic anemia. Stable Urinary tract infection. Blood and urine cultures in process. Patient will be on ceftriaxone. Morbid obesity Anxiety/depression. Continue home medications Gerd. Continue Protonix Chronic common variable immunodeficiency. Patient reports that she used to get monthly IVIG infusions however since she has moved down here she has not followed up with anyone and has not had any infusions in over two years. Prophylaxis Lovenox Code status full code Digitally Signed by TOI LIN MD on 2024 12:27 AM [facility] [id number] Evaluation + Plan note Diagnostic Tests Pending * Urine Culture 03/29/24 [facility] 11-22-2024 Note ORIGINAL EXAMINATION: ONE XRAY VIEW OF THE CHEST 03/29/2024 10:59 am COMPARISON: December 12, 2021 HISTORY: ORDERING SYSTEM PROVIDED HISTORY: Reason for Exam: pain/fever FINDINGS: The heart is normal in size and there is no vascular congestion present. There is a small to moderate left pleural effusion with adjacent infiltrate or atelectasis. Right lung is clear. No acute osseous finding. IMPRESSION: Small to moderate left pleural effusion with adjacent atelectasis or infiltrate. Follow-up recommended. Interpreted by: Luan Hi MD Preliminary Report By: Luan Hi MD Electronically signed By Luan Hi MD Dictated Date: 03/29/2024 11:17:58 AM Prelim Date: 03/29/2024 11:18:28 AM Sign Date: 03/29/2024 11:18:28 AM [facility]ing [facility] Sinus tachycardia Electronic Signature: SANDEE HUDSON DO 03/29/2024 10:36:[address] [place] [address] 10-03-2024 Telephone encounter Note* Telephone Encounter - Louann Bermeo APRN.TWISTING OPERATOR - 02/08/2024 8:11 AM EDT Noted. [facility]10-03-2024 Miscellaneous Notes* Telephone Encounter - Louann Bermeo APRN.CNP - 02/08/2024 8:11 AM EDT Noted. * Telephone Encounter - Brendan Adler LPN - 02/07/2024 2:52 PM EDT Patient call transferred from [facility], patient asking to schedule appt with Louann Bermeo CHILD STUDY TEAM DIRECTOR. She hasincreased swelling in her right lower leg, from her knee to foot including her foot is red and warm, painful to touch. No fluid seeping, has pitting edema and painful when she touches area. Patient said both legs have had edema but right leg is larger and darker red in color. She had gone to a earlier in the week and now edema is worse. Patient does not weigh herself at all. She said she has been taking her water pills. Advised patient to go to ER for evaluation for possible DVT or cellulitis, aware CHILD STUDY TEAM DIRECTOR is out of office today. [facility] Telephone encounter Note * Telephone Encounter - Brendan Adler LPN - 02/07/2024 2:52 PM EDT Patient call transferred from [facility], patient asking to schedule appt with Louann Bermeo CHILD STUDY TEAM DIRECTOR. She hasincreased swelling in her right lower leg, from her knee to foot including her foot is red and warm, painful to touch. No fluid seeping, has pitting edema and painful when she touches area. Patient said both legs have had edema but right leg is larger and darker red in color. She had gone to a earlier in the week and now edema is worse. Patient does not weigh herself at all. She said she has been taking her water pills. Advised patient to go to ER for evaluation for possible DVT or cellulitis, aware CHILD STUDY TEAM DIRECTOR is out of office today. [facility]05-14-2024 History of Present illness Narrative* Linette Villalpando PA-C - 09/19/2023 12:09 PM EDT This note was created using Style Jukeboxriter. Subjective Torrie Martinez is a 33 year old female. HPI Patient presents with a chief complaint of bilateral ear pain and sore throat over the past 4 days.She has had some postnasal drip and congestion. Denies new cough or fever. She states she always has some wheezing and cough due to her severe persistent asthma and is on 3 L of oxygen daily. She does have seasonal allergies and takes cetirizine daily. She does have Flonase, has not used that in the past year 4 days. No vomiting or diarrhea. Review of Systems Constitutional: Negative. HENT: Positive for congestion, ear pain, postnasal drip and sore throat. Respiratory: Positive for cough. Cardiovascular: Negative. Gastrointestinal: Negative. Genitourinary: Negative. Musculoskeletal: Negative. All other systems reviewed and are negative. PAST MEDICAL HISTORY Diagnosis Date Allergic rhinitis due to allergen 02/2018 [facility]. Current severe episode of major depressive disorder without psychotic features without prior episode ([facility]) 09/14/2018 DNS (deviated nasal septum) Ex-smoker 01/10/2018 Started at age 18 and quit at 26. Smoked one cigar a day. MARCUS (generalized anxiety disorder) 09/14/2018 GERD (gastroesophageal reflux disease) Immunodeficiency ([facility]) IVIG Iron deficiency anemia 06/17/2018 Morbid obesity ([facility]) 06/15/2018 Nasal polyposis BOLA on CPAP Pleural effusion 06/15/2018 Severe persistent asthma with acute exacerbation 02/12/2018 Vitiligo Current Outpatient Medications Medication Sig Dispense Refill prednisoLONE acetate (PRED FORTE) 1 % ophthalmic suspension instill 1 drop into both eyes four times a day kvuuxdlovnv-gezpeyuwl-jftmziqk (TRELEGY ELLIPTA) 200-62.5-25 mcg inhalation powder Inhale 1 Puff asinstructed once daily. 1 Each 11 benralizumab (FASENRA) 30 mg/mL injection Inject 1 mL subcutaneously every 4 weeks. 3 mL 1 buPROPion XL (WELLBUTRIN XL) 150 mg 24 hr tablet Take 1 tablet by mouth every morning. 90 tablet 1 cetirizine (ZYRTEC) 10 mg tablet Take 1 tablet by mouth every afternoon. 90 tablet 1 furosemide (LASIX) 20 mg tablet Take 1 tablet by mouth every afternoon. 90 tablet 1 potassium chloride ER (KLOR-CON) 20 mEq tablet Take 1 tablet by mouth every afternoon. 90 tablet 1 valACYclovir (VALTREX) 500 mg tablet Take 1 tablet by mouth two times a day. 15 tablet 0 ferrous sulfate 325 mg (65 mg iron) tablet Take 1 tablet by mouth two times a day. 180 tablet 3 montelukast (SINGULAIR) 10 mg tablet Take 1 tablet by mouth daily at bedtime. 90 tablet 1 fluticasone (FLONASE) 50 mcg/actuation nasal spray Use 1 [place] in each nostril two times a day. Rinse mouth after use. 1 Each 1 famotidine (PEPCID) 20 mg tablet Take 1 tablet by mouth two times a day as needed (GERD 2nd line). 180 tablet 1 sertraline (ZOLOFT) 50 mg tablet 1/2 a tablet by mouth once a day for 10 days then go to one tabletdaily 30 tablet 3 levalbuterol (XOPENEX) 0.31 mg/3 mL nebulizer solution 0.31 mg. albuterol (PROVENTIL) 2.5 mg /3 mL (0.083 %) nebulizer solution Use 3 mL via nebulizer every 6 hours as needed for Wheezing/Shortness of Breath. 120 Vial 0 COMPOUNDED PRESCRIPTION Please assess for portable oxygen concentrator. 1 Each 0 albuterol HFA (PROVENTIL HFA, VENTOLIN HFA) 90 mcg/actuation inhaler Inhale 2 Puffs as instructed. amoxicillin-clavulanate potassium (AUGMENTIN) 875-125 mg per tablet Take 1 tablet by mouth two times a day for 7 days. 14 tablet 0 No current facility-administered medications for this visit. PAST SURGICAL HISTORY Procedure Laterality Date SECTION HX 2012 PAST SURGICAL HISTORY OF 2016, 2018 B knee arthroscopic surgery SINUS SURGERY HX 2019 TONSILLECTOMY HX 2014 FAMILY HISTORY Problem Relation Age of Onset Asthma Mother Seizures Mother Asthma Brother Asthma Son Cancer Father Stage 4 lung cancer. Asthma Sister Diabetes Sister Allergies Maternal Grandmother Diabetes Maternal Grandmother Hypertension Maternal Grandmother Heart disease Maternal Grandfather Alzheimer's Disease No Family History Colon Cancer No Family History Breast Cancer No Family History Ovarian cancer No Family History Uterine Cancer No Family History Prostate Cancer No Family History Coronary Artery Disease No Family History Hyperlipidemia No Family History Kidney Disease No Family History Stroke No Family History Thyroid No Family History Psychiatry No Family History Social History Tobacco Use Smoking status: Former Packs/day: 1.00 Years: 8.00 Additional pack years: 0.00 Total pack years: 8.00 Types: Cigars, Cigarettes Start date: 2008 Quit date: 01/06/2018 Years since quittin.7 Smokeless tobacco: Never Tobacco comments: Parents smoked in childhood home Vaping Use Vaping Use: Never used Substance Use Topics Alcohol use: Yes Comment: rare: 5 times/year Drug use: No Objective BP 128/82 Pulse 100 Temp 36.5 C (97.7 F) (Tympanic) Resp 18 Wt (!) 183.2 kg (403 lb 14.1 oz) LMP 09/29/2018 SpO2 93% BMI 56.33 kg/m Physical Exam Vitals reviewed. Constitutional: Appearance: Normal appearance. HENT: Head: Normocephalic and atraumatic. Right Ear: Ear canal and external ear normal. Left Ear: Ear canal and external ear normal. Ears: Comments: Bilateral middle ear effusions, suppurative Nose: Congestion present. Mouth/Throat: Mouth: Mucous membranes are moist. Pharynx: Posterior oropharyngeal erythema present. No oropharyngeal exudate. Cardiovascular: Rate and Rhythm: Normal rate and regular rhythm. Heart sounds: Normal heart sounds. Pulmonary: Effort: Pulmonary effort is normal. Breath sounds: Normal breath sounds. Musculoskeletal: Cervical back: Neck supple. Skin: General: Skin is warm and dry. Neurological: Mental Status: She is alert. Assessment and Plan ASSESSMENT/PLAN: 1. Sore throat - ICD9: 462, ICD10: J02.9 (primary diagnosis) - Group A strep molecular testing negative - STREP A MOLECULAR (POC) 2. Acute otitis media, bilateral - ICD9: 382.9, ICD10: H66.93 - Will begin treatment with Augmentin 875 mg PO BID for 7 days - Supportive care with plenty of fluids, rest, and analgesia prn. - Follow up in 3-5 days if symptoms persist or worsen. Linette Villalpando PA-C documented in this encounterProm[facility] History of Present illness Narrative* Liberty Weir APRN.TWISTING OPERATOR - 08/27/2023 12:17 PM EDT This note was created using NoteWriter. Subjective Torrie Martinez is a 33 year old female. 33 year old female with PMH COPD, GERD, asthma, and obesity presents for complaints. Acute onset yesterday Bilateral eyes +crusted +itching +redness Denies accompanying URI sx Denies loss of vision Denies pain with eye movement. Denies feelings of FB Denies N/V/D Wears corrective lens, but not contacts. Of note, she is a COPD patient. She is not wearing her oxygen. She states that sometimes she goes without the oxygen. Denies tobacco usage The history is provided by the patient. No master steam yacht was used. Conjunctivitis The current episode started yesterday. The onset was gradual. The problem occurs continuously. The problem has been unchanged. The problem is mild. Nothing relieves the symptoms. Nothing aggravates the symptoms. Associated symptoms include eye itching, cough, eye discharge and eye redness. Pertinent negatives include no fever, no decreased vision, no double vision, no photophobia, no abdominal pain, no diarrhea, no vomiting, no congestion, no ear discharge, no ear pain, no headaches, no hearingloss, no mouth sores, no rhinorrhea, no sore throat, no stridor, no swollen glands, no muscle aches, no rash and no eye pain. Wheezing: chronic.Both eyes are affected. PAST MEDICAL HISTORY Diagnosis Date Allergic rhinitis due to allergen 02/2018 [facility]. Current severe episode of major depressive disorder without psychotic features without prior episode ([facility]) 09/14/2018 DNS (deviated nasal septum) Ex-smoker 01/10/2018 Started at age 18 and quit at 26. Smoked one cigar a day. MARCUS (generalized anxiety disorder) 09/14/2018 GERD (gastroesophageal reflux disease) Immunodeficiency ([facility]) IVIG Iron deficiency anemia 06/17/2018 Morbid obesity ([facility]) 06/15/2018 Nasal polyposis BOLA on CPAP Pleural effusion 06/15/2018 Severe persistent asthma with acute exacerbation 02/12/2018 Vitiligo PAST SURGICAL HISTORY Procedure Laterality Date SECTION HX 2011 PAST SURGICAL HISTORY OF 2016, 2018 B knee arthroscopic surgery SINUS SURGERY HX 2019 TONSILLECTOMY HX 2015 ALLERGIES Seasonal Allergies MEDICATIONS ccbzdtmtjwl-tuxdporpv-lfslikza (TRELEGY ELLIPTA) 200-62.5-25 mcg inhalation powder Inhale 1 Puff asinstructed once daily. benralizumab (FASENRA) 30 mg/mL injection Inject 1 mL subcutaneously every 4 weeks. buPROPion XL (WELLBUTRIN XL) 150 mg 24 hr tablet Take 1 tablet by mouth every morning. cetirizine (ZYRTEC) 10 mg tablet Take 1 tablet by mouth every afternoon. furosemide (LASIX) 20 mg tablet Take 1 tablet by mouth every afternoon. potassium chloride ER (KLOR-CON) 20 mEq tablet Take 1 tablet by mouth every afternoon. valACYclovir (VALTREX) 500 mg tablet Take 1 tablet by mouth two times a day. ferrous sulfate 325 mg (65 mg iron) tablet Take 1 tablet by mouth two times a day. montelukast (SINGULAIR) 10 mg tablet Take 1 tablet by mouth daily at bedtime. fluticasone (FLONASE) 50 mcg/actuation nasal spray Use 1 [place] in each nostril two times a day. Rinse mouth after use. famotidine (PEPCID) 20 mg tablet Take 1 tablet by mouth two times a day as needed (GERD 2nd line). sertraline (ZOLOFT) 50 mg tablet 1/2 a tablet by mouth once a day for 10 days then go to one tabletdaily levalbuterol (XOPENEX) 0.31 mg/3 mL nebulizer solution 0.31 mg. albuterol (PROVENTIL) 2.5 mg /3 mL (0.083 %) nebulizer solution Use 3 mL via nebulizer every 6 hours as needed for Wheezing/Shortness of Breath. COMPOUNDED PRESCRIPTION Please assess for portable oxygen concentrator. albuterol HFA (PROVENTIL HFA, VENTOLIN HFA) 90 mcg/actuation inhaler Inhale 2 Puffs as instructed. trimethoprim-polymyxin (POLYTRIM) 10,000 unit- 1 mg/mL ophthalmic solution Use 1 Drop in both eyes every 4 hours for 7 days. FAMILY HISTORY Problem Relation Age of Onset Asthma Mother Seizures Mother Asthma Brother Asthma Son Cancer Father Stage 4 lung cancer. Asthma Sister Diabetes Sister Allergies Maternal Grandmother Diabetes Maternal Grandmother Hypertension Maternal Grandmother Heart disease Maternal Grandfather Alzheimer's Disease No Family History Colon Cancer No Family History Breast Cancer No Family History Ovarian cancer No Family History Uterine Cancer No Family History Prostate Cancer No Family History Coronary Artery Disease No Family History Hyperlipidemia No Family History Kidney Disease No Family History Stroke No Family History Thyroid No Family History Psychiatry No Family History Social History Tobacco Use Smoking status: Former Packs/day: 1.00 Years: 8.00 Additional pack years: 0.00 Total pack years: 8.00 Types: Cigars, Cigarettes Start date: 2008 Quit date: 01/06/2018 Years since quittin.6 Smokeless tobacco: Never Tobacco comments: Parents smoked in childhood home Vaping Use Vaping Use: Never used Substance Use Topics Alcohol use: Yes Comment: rare: 5 times/year Drug use: No Review of Systems Constitutional: Negative for activity change, appetite change, chills and fever. HENT: Negative for congestion, ear discharge, ear pain, hearing loss, mouth sores, rhinorrhea and sore throat. Eyes: Positive for discharge, redness and itching. Negative for double vision, photophobia, pain and visual disturbance. Respiratory: Positive for cough. Negative for apnea, chest tightness and stridor. Wheezing: chronic. Cardiovascular: Negative for chest pain, palpitations and leg swelling. Gastrointestinal: Negative for abdominal pain, diarrhea and vomiting. Musculoskeletal: Negative for arthralgias, back pain, gait problem and joint swelling. Skin: Negative for color change, pallor and rash. Allergic/Immunologic: Negative for environmental allergies, food allergies and immunocompromised state. Neurological: Negative for dizziness, facial asymmetry and headaches. Hematological: Negative for adenopathy. Does not bruise/bleed easily. Psychiatric/Behavioral: Negative for agitation and behavioral problems. Objective BP 136/66 Pulse 84 Temp 36.3 C (97.3 F) Resp 18 Wt (!) 181.9 kg (401 lb 0.3 oz) LMP 09/29/2018 BMI 55.93 kg/m Physical Exam Vitals and nursing note reviewed. Constitutional: General: She is not in acute distress. Appearance: Normal appearance. She is normal weight. She is not ill-appearing, toxic-appearing or diaphoretic. HENT: Head: Normocephalic and atraumatic. Right Ear: Ear canal and external ear normal. Left Ear: Ear canal and external ear normal. Nose: Nose normal. No congestion or rhinorrhea. Mouth/Throat: Mouth: Mucous membranes are moist. Pharynx: No oropharyngeal exudate or posterior oropharyngeal erythema. Eyes: General: Vision grossly intact. Right eye: No discharge. Left eye: No discharge. Extraocular Movements: Extraocular movements intact. Right eye: Normal extraocular motion and no nystagmus. Left eye: Normal extraocular motion and no nystagmus. Conjunctiva/sclera: Right eye: Right conjunctiva is injected. Exudate present. No chemosis or hemorrhage. Left eye: Left conjunctiva is not injected. No chemosis, exudate or hemorrhage. Pupils: Pupils are equal, round, and reactive to light. Comments: Vision grossly intact. Marginal eyelid debris. OD injected. OS normal appearing Cardiovascular: Rate and Rhythm: Normal rate and regular rhythm. Pulses: Normal pulses. Heart sounds: Normal heart sounds. No murmur heard. No friction rub. Pulmonary: Effort: Pulmonary effort is normal. No respiratory distress. Breath sounds: Normal breath sounds. No stridor. No wheezing, rhonchi or rales. Chest: Chest wall: No tenderness. Abdominal: General: Abdomen is flat. There is no distension. Palpations: Abdomen is soft. There is no mass. Tenderness: There is no abdominal tenderness. There is no right CVA tenderness, left CVA tenderness, guarding or rebound. Hernia: No hernia is present. Musculoskeletal: General: No swelling, tenderness, deformity or signs of injury. Normal range of motion. Cervical back: Normal range of motion and neck supple. No rigidity. Right lower leg: No edema. Left lower leg: No edema. Lymphadenopathy: Cervical: No cervical adenopathy. Skin: General: Skin is warm and dry. Capillary Refill: Capillary refill takes less than 2 seconds. Coloration: Skin is not jaundiced or pale. Findings: No bruising, erythema, lesion or rash. Neurological: General: No focal deficit present. Mental Status: She is alert and oriented to person, place, and time. Cranial Nerves: No cranial nerve deficit. Sensory: No sensory deficit. Motor: No weakness. Coordination: Coordination normal. Gait: Gait normal. Psychiatric: Mood and Affect: Mood normal. Behavior: Behavior normal. Thought Content: Thought content normal. Judgment: Judgment normal. Assessment and Plan ASSESSMENT/PLAN: 1. Noncompliance - ICD9: V15.81, ICD10: Z91.199 (primary diagnosis) Patient history of COPD She is to wear oxygen continuously Endorses that sometimes she wilkes not, I was in a braxton today Pulse ox here 84 percent No SOB NO dyspnea Encouraged patient to wear her oxygen., 2. Conjunctivitis of both eyes, unspecified conjunctivitis type - ICD9: 372.30, ICD10: H10.9 X one day No red flags - see medication orders - course and contagiousness issues discussed, including hand washing. - Instructed to call if high fever, development of periorbital redness or swelling, eye pain, visual changes, concerns or if symptoms persist. Liberty Weir APRN.TWISTING OPERATOR documented in this encounterPromedica [facility]03-22-[facility]24 History of Present illness Narrative* Bere Holcomb MD - 07/28/2023 1:30 PM EDT Images from the original note were not included. . Res[facility] [place] Note Patient name: Torrie Martinez PCP: Louann Bermeo APRN.TWISTING OPERATOR CC: Asthma, reestablish care HPI: Torrie Martinez 33 year old female former 8-pack-year smoker with PMH significant for serious obesity, depression, anxiety, GERD, severe asthma, nasal polyposis, BOLA on CPAP, history of immune deficiency/CVID requiring monthly IVIG, and chronic hypoxemic respiratory failure on oxygen. Last seenin our pulmonary clinic in 2019. She just recently moved back to the area. Current therapy for her asthma consists of nebulized Clara, Fasenra,, Singulair, Flonase, and Anora Ellipta. Unclear why she is not on inhaled corticosteroids. She had previously been on high-dose Breo Ellipta. From a respiratory standpoint she has chronic dyspnea and persistent wheezing chest congestion, cough with clear to yellow mucus production. She is having more issues with sinus congestion, interfering with her ability to wear her CPAP mask. She has frequent awakenings at night with coughing. Has known acid reflux but denies current symptoms. No recent upper respiratory infection requiring antibiotics or steroids. She has not been on her IVIG for over a year. She uses her nebulizer treatment daily several times per day. Triggers for asthma include allergens, upper respiratory infections, extremes in temperatures, smoke. DME: [employer] 5 L at home CPAP DATA: ASTHMA CONTROL TEST Date: 07/28/2023 In the last 4 weeks, how much of the time did your asthma keep you from getting as much done at work or home that you wanted to do? Most of the time (2) In the last 4 weeks, how often have you had shortness of breath? More than once per day (1) In the last 4 weeks, how often did your asthma symptoms (wheezing, coughing, shortness of breath, chest tightness or pain) wake you up at night or earlier than usual? 4 or more nights per week (1) In the last 4 weeks, how often have you used your rescue inhaler or nebulizer medication (such as Albuterol, Proventil, Ventolin, Maxair, Xoponex, or Primatene Mist)? 1 or 2 times per day (2) In the last 4 weeks, how would you rate your asthma control? Poorly controlled (2) Total: less than 15 Date and Time of Test: 09/03/2018 1:41:29 PM Measurement Flow Rate: RESULT: Oral Exhaled NO (ppb): 12 PFT 2019: Pulmonary function test shows severe restriction Labs: Component Ref Range & Units 4 wk ago (06/30/23) WBC 3.70 - 11.00 k/uL 10.46 RBC 3.90 - 5.20 m/uL 6.56 High Hemoglobin 11.5 - 15.5 g/dL 12.8 Hematocrit 36.0 - 46.0 % 47.6 High MCV 80.0 - 100.0 fL 72.6 Low MCH 26.0 - 34.0 pg 19.5 Low MCHC 30.5 - 36.0 g/dL 26.9 Low RDW-CV 11.5 - 15.0 % 19.2 High Platelet Count 150 - 400 k/uL 331 MPV 9.0 - 12.7 fL 10.1 Neutrophils % % 63.2 Abs Neut 1.45 - 7.50 k/uL 6.62 Lymphocytes % % 27.1 Abs Lymph 1.00 - 4.00 k/uL 2.83 Monocytes % % 7.5 Abs [place] <0.87 k/uL 0.78 Eosinophils % % 1.5 Abs Eosin <0.46 k/uL 0.16 Basophils % % 0.3 Abs Baso <0.11 k/uL 0.03 Immature Granulocytes % % 0.4 Abs Immature Gran <0.10 k/uL 0.04 NRBC /100 WBC 0.0 Absolute nRBC <0.01 k/uL <0.01 Imaging / Diagnostic Studies: Echo 2022: Summary Technically suboptimal and limited study. Left ventricle is grossly normal in size . Micro-bubble contrast injected to enhance left ventricular visualization. Mild left ventricular concentric hypertrophy noted. No regional wall motion abnormalities seen. Normal left ventricular ejection fraction. Outside CT of the chest 05/05/2021 Impression 1. Nondiagnostic exam for PE evaluation due to extensive artifact from respiratory motion. 2. Evaluation of lung parenchyma also limited due from respiratory motion. Grossly there is scatter very mild patchy and nodular infiltration which is nonspecific but could reflect bronchiolitis. Similar findings were seen in 2019 although less notable on today's study. PAST MEDICAL HISTORY Diagnosis Date Allergic rhinitis due to allergen 02/2018 [facility]. Current severe episode of major depressive disorder without psychotic features without prior episode ([facility]) 09/14/2018 DNS (deviated nasal septum) Ex-smoker 01/10/2018 Started at age 18 and quit at 26. Smoked one cigar a day. MARCUS (generalized anxiety disorder) 09/14/2018 GERD (gastroesophageal reflux disease) Immunodeficiency ([facility]) IVIG Iron deficiency anemia 06/17/2018 Morbid obesity ([facility]) 06/15/2018 Nasal polyposis BOLA on CPAP Pleural effusion 06/15/2018 Severe persistent asthma with acute exacerbation 02/12/2018 Vitiligo ALLERGIES Allergen Reactions Seasonal Allergies Other: See Comments Congestion benralizumab (FASENRA) 30 mg/mL injection Inject 1 mL subcutaneously every 4 weeks. buPROPion XL (WELLBUTRIN XL) 150 mg 24 hr tablet Take 1 tablet by mouth every morning. cetirizine (ZYRTEC) 10 mg tablet Take 1 tablet by mouth every afternoon. furosemide (LASIX) 20 mg tablet Take 1 tablet by mouth every afternoon. potassium chloride ER (KLOR-CON) 20 mEq tablet Take 1 tablet by mouth every afternoon. valACYclovir (VALTREX) 500 mg tablet Take 1 tablet by mouth two times a day. ferrous sulfate 325 mg (65 mg iron) tablet Take 1 tablet by mouth two times a day. montelukast (SINGULAIR) 10 mg tablet Take 1 tablet by mouth daily at bedtime. fluticasone (FLONASE) 50 mcg/actuation nasal spray Use 1 [place] in each nostril two times a day. Rinse mouth after use. famotidine (PEPCID) 20 mg tablet Take 1 tablet by mouth two times a day as needed (GERD 2nd line). sertraline (ZOLOFT) 50 mg tablet 1/2 a tablet by mouth once a day for 10 days then go to one tabletdaily levalbuterol (XOPENEX) 0.31 mg/3 mL nebulizer solution 0.31 mg. albuterol (PROVENTIL) 2.5 mg /3 mL (0.083 %) nebulizer solution Use 3 mL via nebulizer every 6 hours as needed for Wheezing/Shortness of Breath. COMPOUNDED PRESCRIPTION Please assess for portable oxygen concentrator. albuterol HFA (PROVENTIL HFA, VENTOLIN HFA) 90 mcg/actuation inhaler Inhale 2 Puffs as instructed. ebmmuavipbj-cqnbjynft-rzunuoit (TRELEGY ELLIPTA) 200-62.5-25 mcg inhalation powder Inhale 1 Puff asinstructed once daily. Social History Tobacco Use Smoking status: Former Packs/day: 1.00 Years: 8.00 Additional pack years: 0.00 Total pack years: 8.00 Types: Cigars, Cigarettes Start date: 2008 Quit date: 01/06/2018 Years since quittin.5 Smokeless tobacco: Never Tobacco comments: Parents smoked in childhood home Vaping Use Vaping Use: Never used Substance Use Topics Alcohol use: Yes Comment: rare: 5 times/year Drug use: No Pets: None FAMILY HISTORY Problem Relation Age of Onset Asthma Mother Seizures Mother Asthma Brother Asthma Son Cancer Father Stage 4 lung cancer. Asthma Sister Diabetes Sister Allergies Maternal Grandmother Diabetes Maternal Grandmother Hypertension Maternal Grandmother Heart disease Maternal Grandfather Alzheimer's Disease No Family History Colon Cancer No Family History Breast Cancer No Family History Ovarian cancer No Family History Uterine Cancer No Family History Prostate Cancer No Family History Coronary Artery Disease No Family History Hyperlipidemia No Family History Kidney Disease No Family History Stroke No Family History Thyroid No Family History Psychiatry No Family History PAST SURGICAL HISTORY Procedure Laterality Date SECTION HX 2012 PAST SURGICAL HISTORY OF 2016, 2018 B knee arthroscopic surgery SINUS SURGERY HX 2019 TONSILLECTOMY HX 2015 PMH, Social history, family history and surgical history reviewed and updated in EMR REVIEW OF SYSTEMS: CONSTITUTIONAL: No fevers, chills, nightsweats, unintended weight loss HEENT: Positive nasal congestion/sinus symptoms, problematic allergy problems. Nasal polyps EYES: No diplopia or blurry vision. CARDIOVASCULAR: No chest pain, palpitations, orthopnea. Edema PULM: See HPI GI: No dysphagia/odynophagia, problematic reflux NEURO: No balance problems, peripheral weakness/paresthesias or numbness of concern. MUSC-SKEL: No new joint pain, swelling, or erythema. PSY: History of depression and anxiety INTEGUMENTARY: No new skin changes, rashes or eczema PHYSICAL EXAMINATION: BP 120/86 Pulse 102 Resp 16 Ht 5' 11 (1.80m) Wt 406 lb (184.2kg) SpO2 93[3 L o2]% LMP 09/29/2018 BMI 56.65 kg/(m^2). General Appearance: Elderly obese female, NAD. Skin: Skin color, texture, turgor normal, no suspicious rashes or lesions. Vitiligo Head: Normocephalic, no masses, lesions, tenderness or abnormalities. Nasal congestion Eyes: Sclera, conjunctiva normal. Oropharynx: No oral lesions, no thrush. Geographic tongue Neck: No no masses, no thyromegaly Lungs: Not labored, diffuse inspiratory expiratory wheezes. Heart: Regular rate and rhythm, no obvious murmur. Extremities: Pedal edema, no clubbing. Musculoskeletal: No joint deformities or effusions. Lymph Nodes: No cervical lymphadenopathy and No supraclavicular lymphadenopathy. Assessment/Plan: 1. Severe persistent asthma, uncomplicated -Changed inhaled therapy to high-dose Trelegy Ellipta -Continue Fasenra -Needs updated PFTs and exhaled nitric oxide level -IgE, absolute eos count 2. Severe restrictive lung disease secondary to obesity -Update PFTs -Weight loss advised 3. Chronic hypoxemic respiratory failure -Patient is compliant with and benefits from supplemental oxygen -Check BNP 4. Morbid obesity -BMI 56 -Aggressive weight loss advised. Should consider weight loss surgery 5. Immune deficiency/CVID -Quantitative immunoglobulins with referral to immunology if needed Bere Holcomb MD Respiratory [place] documented in this encounterPromedica [facility]03-04-2024 Miscellaneous Notes* Telephone Encounter - Aurea Powell RN - 07/10/2023 12:57 PM EST Estephania pharmacist @ [facility] calling to let provider know that retail pharmacies cannot dispense Fisenra. This medication must be obtained through a Specialty Pharmacy. Spoke with patient. She says she has received this medication from a Specialty Pharmacy in the past and can't remember which pharmacy. She is going to look back at her records and call back with the name of the pharmacy. Aurea Powell RN * Telephone Encounter - Yanira Rossi Ma - 07/10/2023 11:38 AM EST Fasenra was refilled by Louann Bermeo to [facility] on 06/30/23 Yanira Rossi Ma * Telephone Encounter - Louann Bermeo APRN.TWISTING OPERATOR - 07/06/2023 3:01 PM EST Please find out where patient has been getting medication filled. * Telephone Encounter - Tea Noland LPN - 07/06/2023 2:35 PM EST Pharmacy comment: This medication is not available for us to order at retail level. must be sent toa specialty pharmacy. Tea Noland LPN documented in this encounterPromedica Bay Park Hospital02-23-2024 History of Present illness Narrative* Louann Bermeo APRN.TWISTING OPERATOR - 06/30/2023 10:22 AM EST Chief Complaint Patient presents with: [facility] HPI Torrie Martinez is a 33 year old female who presents here today for Above Complaints.. Patient presents to [facility]. Patient is oxygen dependent due to severe asthma. Currently on 5l n/c with activity and sleep, uses cpap. Past medical history, appointments, medications, allergies reviewed. Previous Medical History PAST MEDICAL HISTORY Diagnosis Date Allergic rhinitis due to allergen 02/2018 [facility] testing. Current severe episode of major depressive disorder without psychotic features without prior episode (HCC) 09/14/2018 DNS (deviated nasal septum) Ex-smoker 01/10/2018 Started at age 18 and quit at 26. Smoked one cigar a day. MARCUS (generalized anxiety disorder) 09/14/2018 GERD (gastroesophageal reflux disease) Iron deficiency anemia 06/17/2018 Morbid obesity (HCC) 06/15/2018 Nasal polyposis Pleural effusion 06/15/2018 Severe persistent asthma with acute exacerbation 02/12/2018 Previous Surgical History PAST SURGICAL HISTORY Procedure Laterality Date PAST SURGICAL HISTORY OF 2015, 2017 B knee arthroscopic surgery SINUS SURGERY HX 2019 TONSILLECTOMY HX 2015 Family History FAMILY HISTORY Problem Relation Age of Onset Asthma Mother Seizures Mother Asthma Brother Asthma Son Cancer Father Stage 4 lung cancer. Asthma Sister Diabetes Sister Allergies Maternal Grandmother Diabetes Maternal Grandmother Hypertension Maternal Grandmother Heart disease Maternal Grandfather Alzheimer's Disease No Family History Colon Cancer No Family History Breast Cancer No Family History Ovarian cancer No Family History Uterine Cancer No Family History Prostate Cancer No Family History Coronary Artery Disease No Family History Hyperlipidemia No Family History Kidney Disease No Family History Stroke No Family History Thyroid No Family History Psychiatry No Family History Patient Allergies ALLERGIES Allergen Reactions Seasonal Allergies Other: See Comments Congestion Current Medications Current Outpatient Medications on File Prior to Visit Medication Sig benralizumab (FASENRA) 30 mg/mL injection Inject 30 mg subcutaneously. buPROPion XL (WELLBUTRIN XL) 150 mg 24 hr tablet Take 150 mg by mouth every morning. cetirizine (ZYRTEC) 10 mg tablet Take 1 tablet by mouth every afternoon. furosemide (LASIX) 20 mg tablet Take 1 tablet by mouth every afternoon. levalbuterol (XOPENEX) 0.31 mg/3 mL nebulizer solution 0.31 mg. potassium chloride ER (KLOR-CON) 20 mEq tablet Take 1 tablet by mouth every afternoon. valACYclovir (VALTREX) 500 mg tablet Take 1 tablet by mouth two times a day. ferrous sulfate 325 mg (65 mg iron) tablet Take 1 tablet by mouth twice daily. montelukast (SINGULAIR) 10 mg tablet Take 1 tablet by mouth daily at bedtime. fluticasone (FLONASE) 50 mcg/actuation nasal spray Use 1 [place] in each nostril twice daily. Rinse mouth after use. famotidine (PEPCID) 20 mg tablet Take 1 tablet by mouth twice daily as needed (GERD 2nd line). sertraline (ZOLOFT) 50 mg tablet 1/2 a tablet by mouth once a day for 10 days then go to one tabletdaily albuterol (PROVENTIL) 2.5 mg /3 mL (0.083 %) nebulizer solution Use 3 mL via nebulizer every 6 hours as needed for Wheezing/Shortness of Breath. COMPOUNDED PRESCRIPTION Please assess for portable oxygen concentrator. albuterol HFA (PROVENTIL HFA, VENTOLIN HFA) 90 mcg/actuation inhaler Inhale 2 Puffs as instructed. umeclidinium-vilanterol (ANORO ELLIPTA) 62.5-25 mcg/actuation inhaler Dose = 1 puff(s), Inhalation, qDay, 0 Refill(s) (Patient not taking: Reported on 06/30/2023) fluticasone-vilanterol (BREO ELLIPTA) 200-25 mcg/dose inhaler Inhale 1 Inhalation as instructed once daily. (Patient not taking: Reported on 06/30/2023) umeclidinium (INCRUSE ELLIPTA) 62.5 mcg/actuation inhaler Inhale 1 Puff as instructed once daily. (Patient not taking: Reported on 06/30/2023) No current facility-administered medications on file prior to visit. Social History Social History Tobacco Use Smoking status: Former Packs/day: 1.00 Years: 8.00 Additional pack years: 0.00 Total pack years: 8.00 Types: Cigars, Cigarettes Start date: 2008 Quit date: 01/06/2018 Years since quittin.4 Smokeless tobacco: Never Tobacco comments: Parents smoked in childhood home and currently lives with smokers. Substance Use Topics Alcohol use: Yes Comment: rare: 5 times/year Drug use: No Review of Symptoms REVIEW OF SYSTEMS GENERAL: No weight loss, malaise or fevers HEENT: Ears Positive for clogged/pressure NECK: Negative for lumps, goiter, pain and significant neck swelling RESPIRATORY: Severe COPD CARDIOVASCULAR: leg swelling GI: No nausea, vomiting, or diarrhea : No history of dysuria, frequency or incontinence WORKFORCE MANAGEMENT MANAGER: Negative for abnormal vaginal bleeding, abnormal vaginal discharge MUSCULOSKELETAL: back pain SKIN: Negative for lesions, rash, and itching PSYCH: Negative for sleep disturbance, mood disorder and recent psychosocial stressors HEMATOLOGY/LYMPHOLOGY: Negative for prolonged bleeding, bruising easily or swollen nodes ENDOCRINE: Negative for cold or heat intolerance, polyuria, polydipsia and goiter NEURO: Migraine headaches EXAM: BP 146/88 Pulse 104 Resp 18 Wt (!) 179.2 kg (395 lb) LMP 09/29/2018 SpO2 92% BMI 55.09 kg/m General Appearance: Well appearing, alert, in no acute distress, well-hydrated, well nourished.. Skin: Skin color, texture, turgor normal, no suspicious rashes or lesions. Neck: Supple, no adenopathy; thyroid symmetric, normal size, no bruits. Lungs: Lungs clear to auscultation. No wheezing, rhonchi, rales.. Heart: RRR without murmur, gallop, or rubs. No ectopy. Abdomen: Normal abdominal exam, Abdomen soft, non-tender. Bowel sounds normal. No masses, organomegaly. Musculoskeletal: No joint swelling, deformity, or tenderness. Peripheral Pulses: Normal. Neurologic: Gait normal. Reflexes normal and symmetric. Sensation grossly intact.. Health Maintenance List Hepatitis B Vaccine(1 of 3 - 3-dose series) Never done Covid-19 Vaccine(1) Never done Pneumococcal Vaccine(1 of 2 - PCV) Never done Hepatitis C Screening Never done HIV Screening Never done DTaP,Tdap,Td Vaccine(1 - Tdap) Never done Pap Testing Never done Annual PCP Team Chronic Disease Visit due on 10/27/2019 HPV Testing Never done Influenza Vaccine(1) due on 01/06/2023 Spirometry Completed HPV Vaccine Aged Out ASSESSMENT/PLAN: 1. Dependence on continuous supplemental oxygen - ICD9: V46.2, ICD10: Z99.81 (primary diagnosis) - CONSULT TO PULMONARY MEDICINE 2. Nasal polyps - ICD9: 471.9, ICD10: J33.9 - CONSULT TO ENT 3. Encounter for immunization - ICD9: V03.89, ICD10: Z23 - PNEUMOCOCCAL VACCINE, 20 VALENT (PREVNAR 20) - TDAP VACCINE, AGE 7+ YR (ADACEL, BOOSTRIX) 4. Gastroesophageal reflux disease without esophagitis - ICD9: 530.81, ICD10: K21.9 - Discussed lifestyle modifications including losing weight, limiting caffeine, no meals three hours before sleep, and head of bed elevation - Continue treatment with Pepcid 20 mg QD - FAMOTIDINE 20 MG TABLET 5. Iron deficiency anemia, unspecified iron deficiency anemia type - ICD9: 280.9, ICD10: D50.9 - CBC + DIFF - FERROUS SULFATE 325 MG (65 MG IRON) TABLET 6. Encounter for screening for diabetes mellitus - ICD9: V77.1, ICD10: Z13.1 - HGB A1C 7. Medication management - ICD9: V58.69, ICD10: Z79.899 - COMP METABOLIC PANEL 8. Encounter for lipid screening for cardiovascular disease - ICD9: V77.91, V81.2, ICD10: Z13.220, Z13.6 - LIPID PANEL, NONFASTING 9. Severe persistent asthma, uncomplicated - ICD9: 493.90, ICD10: J45.50 - Severe persistent asthma stable - Continue current medications - Avoidance of triggers recommended - FASENRA 30 MG/ML SUBCUTANEOUS SYRINGE - CETIRIZINE 10 MG TABLET - MONTELUKAST 10 MG TABLET - FLUTICASONE PROPIONATE 50 MCG/ACTUATION NASAL SPRAY,SUSPENSION - ANORO ELLIPTA 62.5 MCG-25 MCG/ACTUATION POWDER FOR INHALATION 10. Current severe episode of major depressive disorder without psychotic features without prior episode (HCC) - ICD9: 296.23, ICD10: F32.2 - BUPROPION XL 150 MG TAB - SERTRALINE 50 MG TABLET 11. MARCUS (generalized anxiety disorder) - ICD9: 300.02, ICD10: F41.1 - BUPROPION XL 150 MG TAB - SERTRALINE 50 MG TABLET 12. Hypokalemia - ICD9: 276.8, ICD10: E87.6 - POTASSIUM CHLORIDE ER 20 MEQ TABLET,EXTENDED RELEASE(PART/CRYST) 13. Lower extremity edema - ICD9: 782.3, ICD10: R60.0 - FUROSEMIDE 20 MG TABLET 14. Herpes genitalis in women - ICD9: 054.10, ICD10: A60.09 - VALACYCLOVIR 500 MG TABLET Louann Bermeo APRN.CNP documented in this encounterPromedica Bay [facility]11-25-2023 Miscellaneous Notes* Telephone Encounter - Alyson Conti APRN.CNP - 04/01/2023 10:22 AM EST I attempted to reach patient to advise her of the positive test for trichomonas. Voicemail left on provided mobile phone number. I was able to contact her via her sister's phone number. I was initially unable to prescribe any medication because there was no address on file for this patient. I was able to confirm address by calling her pharmacy, and added it to her chart. Rx for flagyl sent to pharmacy. Trorie was advised that all sexual partners should be tested/treated. Alyson Conti APRN.LINDA documented in this encounterPromedica Bay Park Hospital11-24-2023 Instructions* Patient Instructions* Kary Garnett APRN.CNP - 03/31/2023 2:06 PM EST Will send urine for culture and call if treatment needed Vaginal culture for gonorrhea, chlamydia, BV, yeast and trichomonas sent, will call with results and treatment needed documented in this encounterPromedica Bay Park Hospital11-24-2023 History of Present illness Narrative* Kary Garnett APRN.CNP - 03/31/2023 1:47 PM EST Images from the original note were not included. Subjective The history is provided by the patient. No master steam yacht was used. TANNA Martinez is a 33 year old female who presents today for CC of vulvar irritation from HSV breakout. This started 2 days ago, per patient she has been testing in the past for HSV, and was positive, she does not have any medication to treat. She also c/o vaginal discharge, desires testing for std/vaginal infections. She also has burning with urination, not sure if related to hsv out break. BP 152/100 Pulse 99 Temp 36.6 C (97.8 F) Resp 20 Wt (!) 183.7 kg (405 lb) LMP 09/29/2018 SpO2 97% BMI 56.49 kg/m Social History Tobacco Use Smoking status: Former Packs/day: 1.00 Years: 8.00 Additional pack years: 0.00 Total pack years: 8.00 Types: Cigars, Cigarettes Start date: 2008 Quit date: 01/06/2018 Years since quittin.2 Smokeless tobacco: Never Tobacco comments: Parents smoked in childhood home and currently lives with smokers. Substance Use Topics Alcohol use: Yes Comment: rare: 5 times/year Drug use: No PAST MEDICAL HISTORY Diagnosis Date Allergic rhinitis due to allergen 02/2018 [facility]. Current severe episode of major depressive disorder without psychotic features without prior episode (HCC) 09/14/2018 DNS (deviated nasal septum) Ex-smoker 01/10/2018 Started at age 18 and quit at 26. Smoked one cigar a day. MARCUS (generalized anxiety disorder) 09/14/2018 GERD (gastroesophageal reflux disease) Iron deficiency anemia 06/17/2018 Morbid obesity (HCC) 06/15/2018 Nasal polyposis Pleural effusion 06/15/2018 Severe persistent asthma with acute exacerbation 02/12/2018 I have confirmed and edited as necessary, the [facility] Review of Systems Constitutional: Negative for chills and fever. Gastrointestinal: Negative for abdominal pain, diarrhea, nausea and vomiting. Genitourinary: Positive for dysuria. Negative for flank pain, frequency, hematuria and urgency. Vaginal discharge Vulvar irritation/burning Objective Physical Exam Vitals and nursing note reviewed. Exam conducted with a research worker encyclopedia present. Constitutional: Appearance: Normal appearance. Abdominal: General: Bowel sounds are normal. There is no abdominal bruit. Palpations: Abdomen is not rigid. There is no mass or pulsatile mass. Tenderness: There is no abdominal tenderness. There is no guarding or rebound. Negative signs include Durham's sign and McBurney's sign. Genitourinary: Labia: Right: Lesion present. Left: Lesion present. Vagina: Vaginal discharge present. Cervix: Discharge and erythema present. Comments: Blistered lesion Neurological: Mental Status: She is alert and oriented to person, place, and time. Psychiatric: Mood and Affect: Affect normal. ASSESSMENT/PLAN: 1. Acute vaginitis - ICD9: 616.10, ICD10: N76.0 (primary diagnosis) Testing ordered, no treatment - GONORRHEA/CHLAMYDIA NAAT - BACTERIAL VAGINOSIS NAAT - MARIA D/TRICHOMONAS NAAT 2. Dysuria - ICD9: 788.1, ICD10: R30.0 acute - UA positive for radha esterase and hematuria - open sores on labia and increased vaginal discharge probable cause, will treat if culture positive - Patient education for prevention given - UA DIP, URINE (POC) - URINE CULTURE 3. Herpes - ICD9: 054.9, ICD10: B00.9 Valcyclovir as ordered Diagnosis and treatment plan were discussed and questions were answered to the patient's satisfaction. Pt acknowledged understanding of concepts and follow up plan. Specific signs and symptoms that would indicate the need for higher level of care were discussed indetail warranting prompt ER evaluation. Kary Garnett APRN.TWISTING OPERATOR documented in this encounterPromedica Bay Park Hospital10-03-2022 History of Present illness Narrative* Niya Frausto RN - 02/07/2022 1:03 PM EDT Tolerated infusion well. Reviewed therapy plan, offered education material and/or discharge material, reviewed medication information and signs and symptoms and educated on possible side effects, verbalizes good knowledge of current plan patient verbalizes understanding, and has no signs or symptoms to report at this time. Patient discharged. Patient alert and oriented x3. No distress noted. Vital signs stable. Patient denies any new or worsening pain. Patient denies any needs. All questions answered. Next appointment scheduled. Declines copy of AVS. documented in this encounterBON Principle Power Phone: [phone] 647-209008-31-2022 History of Present illness Narrative* Niya Frausto RN - 01/05/2022 1:27 PM EDT Tolerated infusion well. Reviewed therapy plan, offered education material and/or discharge material, reviewed medication information and signs and symptoms and educated on possible side effects, verbalizes good knowledge of current plan patient verbalizes understanding, and has no signs or symptoms to report at this time. Patient discharged. Patient alert and oriented x3. No distress noted. Vital signs stable. Patient denies any new or worsening pain. Patient denies any needs. All questions answered. Next appointment scheduled. Declines copy of AVS. documented in this encounterBON Principle Power Phone: [phone] 103-380808-10-2022 Hospital Discharge instructions Patient Education 12/15/2021 10:18:38 Asthma, Adult Asthma, Adult Asthma is a long-term (chronic) condition that causes recurrent episodes in which the airways become tight and narrow. The airways are the passages that lead from the nose and mouth down into the lungs. Asthma episodes, also called asthma attacks, can cause coughing, wheezing, shortness of breath, and chest pain. The airways can also fill with mucus. During an attack, it can be difficult to breathe. Asthma attacks can range from minor to life threatening. Asthma cannot be cured, but medicines and lifestyle changes can help control it and treat acute attacks. What are the causes? This condition is believed to be caused by inherited (genetic) and environmental factors, but its exact cause is not known. There are many things that can bring on an asthma attack or make asthma symptoms worse (triggers). Asthma triggers are different for each person. Common triggers include: Mold. Dust. Cigarette smoke. Cockroaches. Things that can cause allergy symptoms (allergens), such as animal dander or pollen from trees or grass. Air pollutants such as household record producer, wood smoke, smog, or chemical odors. Cold air, weather changes, and winds (which increase molds and pollen in the air). Strong emotional expressions such as crying or laughing hard. Stress. Certain medicines (such as aspirin) or types of medicines (such as beta-blockers). Sulfites in foods and drinks. Foods and drinks that may contain sulfites include dried fruit, potato chips, and sparkling grape juice. Infections or inflammatory conditions such as the flu, a cold, or inflammation of the nasal membranes (rhinitis). Gastroesophageal reflux disease (GERD). Exercise or strenuous activity. What are the signs or symptoms? Symptoms of this condition may occur right after asthma is triggered or many hours later. Symptoms include: Wheezing. This can sound like whistling when you breathe. Excessive nighttime or field map editor coughing. Frequent or severe coughing with a common cold. Chest tightness. Shortness of breath. Tiredness (fatigue) with minimal activity. How is this diagnosed? This condition is diagnosed based on: Your medical history. A physical exam. Tests, which may include: ?Lung function studies and pulmonary studies (spirometry). These tests can evaluate the flow of airin your lungs. ?Allergy tests. ?Imaging tests, such as X-rays. How is this treated? There is no cure for this condition, but treatment can help control your symptoms. Treatment for asthma usually involves: Identifying and avoiding your asthma triggers. Using medicines to control your symptoms. Generally, two types of medicines are used to treat asthma: ?Controller medicines. These help prevent asthma symptoms from occurring. They are usually taken every day. ?Fast-acting reliever or rescue medicines. These quickly relieve asthma symptoms by widening the narrow and tight airways. They are used as needed and provide short-term relief. Using supplemental oxygen. This may be needed during a severe episode. Using other medicines, such as: ?Allergy medicines, such as antihistamines, if your asthma attacks are triggered by allergens. ?Immune medicines (immunomodulators). These are medicines that help control the immune system. Creating an asthma action plan. An asthma action plan is a written plan for managing and treating your asthma attacks. This plan includes: ?A list of your asthma triggers and how to avoid them. ?Information about when medicines should be taken and when their dosage should be changed. ?Instructions about using a device called a peak flow meter. A peak flow meter measures how well the lungs are working and the severity of your asthma. It helps you monitor your condition. Follow these instructions at home: Controlling your home environment Control your home environment in the following ways to help avoid triggers and prevent asthma attacks: Change your heating and air conditioning filter regularly. Limit your use of fireplaces and wood stoves. Get rid of pests (such as roaches and mice) and their droppings. Throw away plants if you see mold on them. Clean floors and dust surfaces regularly. Use unscented cleaning products. Try to have someone else vacuum for you regularly. Stay out of rooms while they are being vacuumed and for a short while afterward. If you vacuum, use a dust mask from a hardware store, a double-layered or microfilter vacuum ceiling cleaner bag, or a vacuum ceiling cleaner with a HEPA filter. Replace carpet with wood, tile, or vinyl ed. Carpet can trap dander and dust. Use allergy-proof pillows, mattress covers, and box spring covers. Keep your bedroom a trigger-free room. Avoid pets and keep windows closed when allergens are in the air. Wash beddings every week in hot water and dry them in a dryer. Use blankets that are made of polyester or cotton. Clean bathrooms and christopher with bleach. If possible, have someone repaint the jones in these rooms with mold-resistant paint. Stay out of the rooms that are being cleaned and painted. Wash your hands often with soap and water. If soap and water are not available, use hand aeroplane pilot. Do not allow anyone to smoke in your home. General instructions Take [id number] and prescription medicines only as told by your health care provider. ?Speak with your health care provider if you have questions about how or when to take the medicines. ?Make note if you are requiring more frequent dosages. Do not use any products that contain nicotine or tobacco, such as cigarettes and e-cigarettes. If you need help quitting, ask your health care provider. Also, avoid being exposed to secondhand smoke. Use a peak flow meter as told by your health care provider. Record and keep track of the readings. Understand and use the asthma action plan to help minimize, or stop an asthma attack, without needing to seek medical care. Make sure you stay up to date on your yearly vaccinations as told by your health care provider. This may include vaccines for the flu and pneumonia. Avoid outdoor activities when allergen counts are high and when air quality is low. Wear a ski mask that covers your nose and mouth during outdoor winter activities. Exercise indoors on cold days if you can. Warm up before exercising, and take time for a cool-down period after exercise. Keep all follow-up visits as told by your health care provider. This is important. Where to find more information For information about asthma, turn to the Centers for Disease Control and Prevention at www.cdc.gov/asthma/faqs.htm For air quality information, turn to [employer] at https://airnow.gov/ Contact a health care provider if: You have wheezing, shortness of breath, or a cough even while you are taking medicine to prevent attacks. The mucus you cough up (sputum) is thicker than usual. Your sputum changes from clear or white to yellow, green, ness, or bloody. Your medicines are causing side effects, such as a rash, itching, swelling, or trouble breathing. You need to use a reliever medicine more than 2 3 times a week. Your peak flow reading is still at 50 79% of your personal best after following your action plan for 1 hour. You have a fever. Get help right away if: You are getting worse and do not respond to treatment during an asthma attack. You are short of breath when at rest or when doing very little physical activity. You have difficulty eating, drinking, or talking. You have chest pain or tightness. You develop a fast heartbeat or palpitations. You have a bluish color to your lips or fingernails. You are light-headed or dizzy, or you faint. Your peak flow reading is less than 50% of your personal best. You feel too tired to breathe normally. Summary Asthma is a long-term (chronic) condition that causes recurrent episodes in which the airways become tight and narrow. These episodes can cause coughing, wheezing, shortness of breath, and chest pain. Asthma cannot be cured, but medicines and lifestyle changes can help control it and treat acute attacks. Make sure you understand how to avoid triggers and how and when to use your medicines. Asthma attacks can range from minor to life threatening. Get help right away if you have an asthma attack and do not respond to treatment with your usual rescue medicines. This information is not intended to replace advice given to you by your health care provider. Make sure you discuss any questions you have with your health care provider. Document Released: 04/24/2006 Document Revised: 06/27/2019 Document Reviewed: 05/29/2017 [employer] Patient Education 2020 [employer]. Follow Up Care 12/12/2021 16:08:46 With:DR. CRISPIN BARRY Address: [address] [place], [place] [id number]- When:12/28/2021 14:30:00 Comments:FOLLOW UP APPOINTMENT [facility] 08-10-2022 Discharge summary Date of Service 12/15/2021 Discharge Diagnosis 1. Asthma exacerbation (J45.901 - ICD-10-CM) 2. Acute hypoxemic respiratory failure (J96.01 - ICD-10-CM) 3. Morbid obesity (E66.01 - ICD-10-CM) Additional Orders: Ordered: Discharge,12/15/21 10:10:00 EDT, Discharged to: Home Ordered: Discharge Activity,Resume your pre-hospitalization activity, 12/15/21 10:10:00 EDT Ordered: Discharge Diet,No changes were made to your diet during your hospital stay. Please resume your pre hospitalization diet on discharge., 12/15/21 10:10:00 EDT Ordered: cefdinir 300 mg oral capsule,Dose : 300 mg = 1 cap(s), Oral, q12h, X 4 day(s), # 8 cap(s),0 Refill(s), 12/20/21 8:00:00 EDT, 182.1 Ordered: prednisone 20mg tab (TAPER),Taper 60-40-20 mg x 3 days each dose, Oral, Daily, X 9 day(s),# 18 tab(s), 0 Refill(s), 12/24/21 10:09:00 EDT Hospital Course This is a split/shared visit with Dr. Barnes. Patient is a 31-year-old female with history of severe asthma who is chronically on 4 L home O2 presented to [facility] with complaints of increased shortness of breath and congestion. Per paramedics oxygen upon arrival was 78%. Patient with improvement in oxygenation with aerosols and IV steroids. In the ED vitals with a temp of 37, heart rate 131, respiratory 26, 74% on 4 L. Improved to temp 36.9, heart rate 110, respiratory rate 32, blood pressure 106/69 and 93% on 10L. Chest x-ray with mixed interstitial and alveolar disease most pronounced in the perihilar regions and medial right lung base. Findings could relate edema or atypical infectiou s/inflammatory conditions. Lymphadenopathy could relate to granulomatous process or other pathology. Labs significant for hemoglobin 11.0, glucose 117, sodium 147, potassium 5.3, CO2 greater than 45.Pt admitted with continued steroids and aerosols. Overnight pt required bipap and was then transferred to [facility] with pulmonology consult due to lack of improvement. Pt continued on steroids and started on IV rocephin, able to be weaned to normal home oxygen with improvement in lung sounds. Pt cleared for discharge on prednisone taper and antibiotic to complete a 7 day course. Pt had a recent sleepstudy outpatient which recommended positive pressure support at night, pt states she plans to set this up today. Pt stable and agreeable with discharge home. Allergies NKA Consults Consult to Physician - Ordered -- 12/12/21 16:32:00 EDT, CHIRAG PEARSON MD, Routine, asthma exacerbation Objective Vitals and Measurements T: 36.8 C (Oral) TMIN: 36.4 C (Oral) TMAX: 36.9 C (Oral) HR: 73 RR: 18 BP: 141/82 SpO2: 93% Weight Dosing Weight: 182.1 kg (12/12/21) General: Alert and oriented x 3, NAD Head: Normocephalic, mmm, sclera nonicteric Cardiovascular: Normal rate and rhythm, no murmur, - edema Respiratory: Lungs clear to auscultation bilaterally, easy Abdomen: soft and non-distended, bowel sounds active all 4 quadrants Neurological: Moving all 4 extremities, speech clear Psychological: normal affect, cooperative, good eye contact Code Status Code Status - Ordered -- 12/12/21 16:32:00 EDT, Full Code, Constant Order Admission Date 12/12/2021 Discharge Date 12/15/2021 Medications New Prescription cefdinir (cefdinir 300 mg oral capsule)1 cap by mouth every 12 hours for 4 Days. Refills: 0. predniSONE (prednisone 20mg tab (TAPER))Taper 60-40-20 mg x 3 days each dose by mouth every day for9 Days. Refills: 0. Unchanged albuterol (albuterol 2.5 mg/3 mL (0.083%) inhalation solution)3 Milliliter by inhalation every 4 hours as needed Shortness of breath or wheezing for 14 Days. Refills: 0. albuterol-ipratropium (DuoNeb)3 Milliliter by inhalation Every 2 Hours as needed Shortness of breath or wheezing. albuterol-ipratropium (DuoNeb)3 Milliliter by inhalation every 4 hours. [id number] Milligram by mouth once a day. buPROPion (Wellbutrin XL 150 mg/24 hours oral tablet, extended release)1 tab(s) by mouth every 24 hours. famotidine (famotidine 20 mg oral tablet)1 tab(s) by mouth two (2) times a day. ferrous sulfate (ferrous sulfate 325 mg (65 mg elemental iron) oral delayed release tablet)1 tab(s)by mouth once a day. fluticasone-salmeterol (fluticasone-salmeterol 232 mcg-14 mcg/inh inhalation powder)1 puff(s) by inhalation two (2) times a day. fluticasone-vilanterol (Breo Ellipta 200 mcg-25 mcg/inh inhalation powder)1 puff(s) by inhalation every day. methylPREDNISolone (SOLU-Medrol)60 Milligram IV Push every 8 hours. Milligram by mouth once a day. [id number] Milligram by mouth once a day. umeclidinium-vilanterol (Anoro Ellipta 62.5 mcg-25 mcg/inh inhalation powder)1 puff(s) by inhalation once a day. Follow Up Follow Up with DR. CRISPIN BARRY When 12/28/2021 02:30 PM EDT Why: FOLLOW UP APPOINTMENT Where: [address] [place] [id number]- Follow Up Appointments No qualifying data available. Follow Up Labs/Studies Discharge Labs No Follow-up Labs Discharge Studies No Follow-up Studies Discharge Diet Discharge Diet - Ordered -- No changes were made to your diet during your hospital stay. Please resume your pre hospitalization diet on discharge., 12/15/21 10:10:00 EDT Discharge Activity Discharge Activity - Ordered -- Resume your pre-hospitalization activity, 12/15/21 10:10:00 EDT Condition on Discharge Stable Readmission Risk/Palliative Score LACE Score: 8 (12/14/21 12:21:00) Palliative Total Score: 0 (12/14/21 12:21:00) Discharge Disposition Home Time Spent Total visit time = 31 minutes; > 50% spent counseling/coordinating care Digitally Signed by SERGIO COLEMAN on 12/15/2021 12:02 PM [id number] Pulmonary Progress note Date of Service December 15, 2021 Chief Complaint This is a 31-year-old female with a history of asthma, chronic hypoxemic/hypercapnic respiratory failure on 4-5 L of home oxygen who presented to [facility] with shortness of breath. The patient complained that she has a weakened immune system and gets injections monthly (?CVID) of IVIG. She usually lives in [facility] and is visiting [place]. The patient recently underwent a sleep study and is being set up with some form of positive pressure device for nighttime. The patient reports being in her usual state of health prior to admission. The patient was wheezing and was coughing. Paramedics initially noted hypoxemia upon initial evaluation to 70%. She was then transferred to [facility] where she was placed on noninvasive positive pressure ventilation with this improvement. She was then transferred to [facility]. Subjective Patient is presently laying in bed. She is on 5 L nasal cannula. She states that her breathing has improved since admission. Occasional cough. Clear phlegm. Occasional wheezing. However, she states wheezing has improved since admission. Objective Vitals and Measurements T: 36.8 C (Oral) TMIN: 36.4 C (Oral) TMAX: 36.9 C (Oral) HR: 73 RR: 18 BP: 141/82 SpO2: 93% Intake and Output 7AM Yesterday to 7AM Today Intake and Output (Last 24 hours) Intake Oral Intake 680.00 Output Urine Voided 2.00 Stool Count 0.00 Urine Count 1.00 Emesis Count 0.00 Total Summary Total Intake 680.00 Total Output 2.00 Fluid Balance 678.00 Physical Exam General: Alert, pleasant, no acute distress on 5 L nasal cannula HEENT: Normocephalic, atraumatic, extraocular movements intact Neck: Supple Cardiovascular: Regular rate and rhythm normal S1-S2 Pulmonary: Respirations even and regular, no accessory muscle use, lung sounds diminished bilaterally, no appreciable wheezing Abdomen: Obese, soft, nontender, bowel sounds positive Extremities: No edema Musculoskeletal: Strong x4 Skin: Warm and dry Neurological: Nonfocal Weight Dosing Weight: 182.1 kg (12/12/21) Medications Medications (19) Active Scheduled: (10) albuterol - ipratropium 2.5 mg-0.5 mg/3 mL Inhal Jocelyn UD 3 mL, Inhalation, QIDRT aspirin 81 mg Chewable 81 mg 1 tab(s), Oral, qDay budesonide 0.5 mg/2 mL Susp UD 0.5 mg 2 mL, Inhalation, BIDRT bupropion 150 mg/24 hours ER tablet 150 mg 1 tab(s), Oral, q24h cefTRIAXone IVP syringe 2 gram(s) 20 mL, IV Piggyback, qDay enoxaparin 40 mg/ 0.4mL syringe 40 mg 0.4 mL, Subcutaneous, qDay famotidine 20 mg tablet 20 mg 1 tab(s), Oral, BID methylPREDNISolone succ 40mg (40 mg/1mL) after dilution 40 mg 1 mL, IV Push, BIDAC montelukast 10 mg Tablet 10 mg 1 tab(s), Oral, qDay sertraline 100 mg tablet 100 mg 1 tab(s), Oral, qDay Continuous: (0) PRN: (9) acetaminophen 325 mg Tablet 650 mg 2 tab(s), Oral, q6h acetaminophen 325 mg Tablet 650 mg 2 tab(s), Oral, q4h acetaminophen-HYDROcodone 325-5 mg tablet 1 tab(s), Oral, q4h albuterol 0.083% Soln UD (2.5mg/3 mL) 2.5 mg 3 mL, Inhalation, q2h benzonatate 100 mg Capsule 100 mg 1 cap(s), Oral, TID guaifenesin 100 mg/5 mL 120 mL liquid 200 mg 10 mL, Oral, q4h melatonin 3 mg tablet 3 mg 1 tab(s), Oral, qHS ondansetron 2 mg/ 1 mL 2 mL INJ 4 mg 2 mL, IV Push, q4h polyethylene glycol 3350 - UD packet 17 gram(s) 15 mL, Oral, BID Lab Results 12/14 06:20 Glucose Level: 80 Sodium Level: 145 Potassium Level: 4.0 BUN: 15.0 Creatinine Lvl (s): 0.72 EKG No qualifying data available. Assessment/Plan 1. Asthma exacerbation Improving 2. Chronic hypoxemic hypercapnic respiratory failure Improving Patient is presently on 5 L nasal cannula which is baseline Is tolerating BiPAP at bedtime 3. Possible CVID reportedly on monthly IVIG infusions 4. High suspicion for sleep apnea/obesity hypoventilation syndrome 5. Severe obesity BMI 54.4 Plan: Reviewed with Dr. Herrera 1. Treatment for community-acquired pneumonia for 7 day, patient currently on ceftriaxone 2. Wean oxygen as tolerated: Patient is on a baseline of 4-5 L 3. Continued DuoNebs scheduled every 4 hours with albuterol as needed 4. Budesonide inhalation twice daily 5. Then transition to prednisone taper in AM. 6. Continued noninvasive ventilation while inpatient at night and with naps. Tolerating 18/10. She apparently had a PSG performed around [facility] with recommendations to undergo a pressure titration which I have encouraged her to schedule. Digitally Signed by AMELIA FORD on 12/15/2021 12:00 PM [id number] Note Discharge Instructions Thank you for allowing [facility] to assist you with your healthcare needs. The following is importantdischarge information regarding your hospital visit. Your Care Team ISRA QUAN MD Your Diagnosis Asthma exacerbation Acute hypoxemic respiratory failure Morbid obesity What to do next Follow Up Appointments Follow Up with DR. CRISPIN BARRY When 12/28/2021 02:30 PM EDT Why: FOLLOW UP APPOINTMENT Where: [id number] [address]- Follow Up with ISRA QUAN MD When Within 1-2 days Where: [address] [place] [address]- The Following Activity and Diet Have Been Ordered for You Discharge Activity - Ordered -- Resume your pre-hospitalization activity, 12/15/21 10:10:00 EDT Discharge Diet - Ordered -- No changes were made to your diet during your hospital stay. Please resume your pre hospitalization diet on discharge., 12/15/21 10:10:00 EDT The Following Equipment Has Been Ordered for You Home Equipment - Oxygen No qualifying data available. The Following Treatments Have Been Ordered for You Discharge Labs No qualifying data available. Discharge Radiology No qualifying data available. Other Therapies No qualifying data available. Post Acute Orders No qualifying data available. Someone Will Contact You Regarding These Home Health Referrals No home referrals have been ordered for you. No one will call you. Allergies NKA Medications Please ask your primary doctor or pharmacist before taking any other medication not listed, including over the counter drugs, herbal medications, vitamins and or supplements as they may interact withyour home medications. What How Much When Instructions Last Dose New cefdinir (cefdinir 300 mg oral capsule) 1 cap by mouth Every 12 hours Duration: 4 Days Printed Prescription New predniSONE (prednisone 20mg tab (TAPER)) Taper 60-40-20 mg x 3 days each dose by mouth Every day Duration: 9 Days Printed Prescription Unchanged albuterol (albuterol 2.5 mg/ 3 mL (0.083%) inhalation solution) 3 Milliliter by inhalation Every 4 hours as needed for Shortness of breath or wheezing Duration: 14 Days Unchanged albuterol-ipratropium (DuoNeb) 3 Milliliter by inhalation Every 2 Hours as needed for Shortness of breath or wheezing Unchanged albuterol-ipratropium (DuoNeb) 3 Milliliter by inhalation Every 4 hours Unchanged aspirin 81 Milligram by mouth Once a day Unchanged buPROPion (Wellbutrin XL 150 mg/ 24 hours oral tablet, extended release) 1 tab(s) by mouth Every 24 hours Unchanged famotidine (famotidine 20 mg oral tablet) 1 tab(s) by mouth Two (2) times a day Unchanged ferrous sulfate (ferrous sulfate 325 mg (65 mg elemental iron) oral delayed release tablet) 1 tab(s) by mouth Once a day Unchanged fluticasone-salmeterol (fluticasone-salmeterol 232 mcg-14 mcg/ inh inhalation powder) 1 puff(s) by inhalation Two (2) times a day Unchanged fluticasone-vilanterol (Breo Ellipta 200 mcg-25 mcg/ inh inhalation powder) 1 puff(s) by inhalation Every day Unchanged methylPREDNISolone (SOLU-Medrol) 60 Milligram IV Push Every 8 hours Unchanged montelukast 10 Milligram by mouth Once a day Unchanged sertraline 100 Milligram by mouth Once a day Unchanged umeclidinium-vilanterol (Anoro Ellipta 62.5 mcg-25 mcg/ inh inhalation powder) 1 puff(s) by inhalation Once a day Please take this list to your next doctor s visit. Bring all medications you take, including over the counter medications, herbals and other supplements with you to your doctor s visit. Patients and families are reminded to discard old lists and to update any records with all medication providers or retail pharmacies. Medication Leaflets cefdinir (BEV damon) Omnicef, Omnicef Omni-Pac What is the most important information I should know about cefdinir? Do not take this medicine if you are allergic to cefdinir, or to similar antibiotics, such as Ceftin, Cefzil, Keflex, and others. What is cefdinir? Cefdinir is a cephalosporin (SEF a low spor in) antibiotic that is used to treat many different types of infections caused by bacteria. Cefdinir may also be used for purposes not listed in this medication guide. What should I discuss with my healthcare provider before taking cefdinir? You should not take this medicine if you are allergic to cefdinir or any other cephalosporin antibiotic (cefadroxil, cefprozil, cefazolin, cefalexin, Keflex, and others). Tell your doctor if you have ever had: kidney disease (or if you are on dialysis); intestinal problems, such as colitis; or an allergy to any drugs (especially penicillins). Cefdinir liquid contains sucrose. Talk to your doctor before using this form of cefdinir if you have diabetes. Tell your doctor if you are or . How should I take cefdinir? Follow all directions on your prescription label and read all medicine guides or instruction sheets. Use the medicine exactly as directed. Shake the oral suspension (liquid) before you measure a dose. Use the dosing syringe provided, or use a medicine dose-measuring device (not a kitchen spoon). You may take cefdinir with or without food. Use this medicine for the full prescribed length of time, even if your symptoms quickly improve. Skipping doses can increase your risk of infection that is resistant to medication. Cefdinir will not treat a viral infection such as the flu or a common cold. Cefdinir can affect the results of certain medical tests. Tell any doctor who treats you that you are using cefdinir. Store at room temperature away from moisture and heat. Throw away any unused cefdinir liquid that is older than 10 days. What happens if I miss a dose? Take the medicine as soon as you can, but skip the missed dose if it is almost time for your next dose. Do not take two doses at one time. What happens if I overdose? Seek emergency medical attention or call the Poison Help line at . Overdose symptoms may include nausea, vomiting, stomach pain, diarrhea, or a seizure. What should I avoid while taking cefdinir? Avoid using antacids or mineral supplements that contain aluminum, magnesium, or iron within 2 hours before or after taking cefdinir. Antacids or iron can make it harder for your body to absorb cefdinir. This does not include baby formula fortified with iron. Antibiotic medicines can cause diarrhea, which may be a sign of a new infection. If you have diarrhea that is watery or bloody, call your doctor before using anti-diarrhea medicine. What are the possible side effects of cefdinir? Get emergency medical help if you have signs of an allergic reaction (hives, difficult breathing, swelling in your face or throat) or a severe skin reaction (fever, sore throat, burning eyes, skin pain, red or purple skin rash with blistering and peeling). Call your doctor at once if you have: severe stomach pain, diarrhea that is watery or bloody (even if it occurs months after your last dose); fever, chills, body aches, flu symptoms; pale skin, easy bruising, unusual bleeding; seizure (convulsions); fever, weakness, confusion; dark colored urine, jaundice (yellowing of the skin or eyes); or kidney problems--little or no urination, swelling in your feet or ankles, feeling tired or short ofbreath. Common side effects may include: nausea, vomiting, stomach pain, diarrhea; vaginal itching or discharge; headache; or rash (including diaper rash in an taking liquid cefdinir. This is not a complete list of side effects and others may occur. Call your doctor for medical advice about side effects. You may report side effects to FDA at 4-661-UYP-4588. What other drugs will affect cefdinir? Tell your doctor about all your other medicines, especially: probenecid; or vitamin or mineral supplements that contain iron. This list is not complete. Other drugs may affect cefdinir, including prescription and [id number]-[id number] medicines, vitamins, and herbal products. Not all possible drug interactions are listed here. Where can I get more information? Your pharmacist can provide more information about cefdinir. Remember, keep this and all other medicines out of the reach of children, never share your medicines with others, and use this medication only for the indication prescribed. Every effort has been made to ensure that the information provided by [employer]') is accurate, up-to-date, and complete, but no guarantee is made to that effect. Drug information contained herein may be time sensitive. [employer] information has been compiled for use by healthcare practitioners and consumers in the [place] and therefore [employer] does not warrant that uses outside of the [place] are appropriate, unless specifically indicated otherwise. [employer] drug information does not endorse drugs, diagnose patients or recommend therapy. [employer] drug information isan informational resource designed to assist licensed healthcare practitioners in caring for their p atients and/or to serve consumers viewing this service as a supplement to, and not a substitute for, the expertise, skill, knowledge and judgment of healthcare practitioners. The absence of a warningfor a given drug or drug combination in no way should be construed to indicate that the drug or drug combination is safe, effective or appropriate for any given patient. [employer] does not assume any responsibility for any aspect of healthcare administered with the aid of information [employer] provides. The information contained herein is not intended to cover all possible uses, directions, precautions, warnings, drug interactions, allergic reactions, or adverse effects. If you have questions about the drugs you are taking, check with your doctor, nurse or pharmacist. Copyright 9231-5245 [employer]. Version: 7.03. Revision Date: 05/11/2020. prednisone (PRED rita Villegas What is the most important information I should know about prednisone? You should not use prednisone if you have a fungal infection anywhere in your body. You should not stop using prednisone suddenly. Follow your doctor's instructions about tapering your dose. What is prednisone? Prednisone is a steroid that reduces inflammation in the body, and also suppresses your immune system. Prednisone is used to treat many different conditions such as hormonal disorders, skin diseases, arthritis, lupus, psoriasis, allergic conditions, ulcerative colitis, Crohn's disease, eye diseases, lung diseases, asthma, tuberculosis, blood cell disorders, kidney disorders, leukemia, lymphoma, multi ple sclerosis, organ transplant rejection, swelling from a brain tumor or injury. Prednisone may also be used for purposes not listed in this medication guide. What should I discuss with my healthcare provider before taking prednisone? You should not use prednisone if you are allergic to it, or if you have a fungal infection anywherein your body. Steroid medication can weaken your immune system, making it easier for you to get an infection or worsening an infection you already have. Tell your doctor about any illness or infection you've had within the past several weeks. Tell your doctor if you have ever had: heart problems, high blood pressure, or a heart attack; glaucoma or cataracts; herpes infection of the eyes; past or present tuberculosis; a parasite infection that causes diarrhea (such as threadworms); any illness that causes diarrhea; underactive thyroid; diabetes; a stomach ulcer, diverticulitis; a colostomy or ileostomy; osteoporosis or low bone mineral density (steroid medication can increase your risk of bone loss); low levels of calcium or potassium in your blood; cirrhosis or other liver disease; mental illness or psychosis; or a muscle disorder such as myasthenia gravis. Long-term use of steroids may lead to bone loss (osteoporosis), especially if you smoke or drink alcohol, if you do not exercise, or if you do not get enough vitamin D or calcium in your diet. It is not known whether this medicine will harm an unborn baby. Tell your doctor if you are or plan to become . You should not breastfeed while using prednisone. How should I take prednisone? Follow all directions on your prescription label and read all medication guides or instruction sheets. Your doctor may occasionally change your dose. Use the medicine exactly as directed. Prednisone is taken daily or every other day, depending on the condition being treated. You may need to take the medicine at a certain time of day. Follow your doctor's instructions about when and how often to take this medicine. Take with food if prednisone upsets your stomach. Measure liquid medicine carefully. Use the dosing syringe provided, or use a medicine dose-measuring device (not a kitchen spoon). Swallow the delayed-release tablet whole and do not crush, chew, or break it. Prednisone can weaken (suppress) your immune system, and you may get an infection more easily. Callyour doctor if you have signs of infection (fever, weakness, cold or flu symptoms, skin sores, diarrhea, frequent or recurring illness). If you have major surgery or a severe injury or infection, your prednisone dose needs may change. Make sure any doctor caring for you knows you are using this medicine. If you use this medicine long-term, you may need medical tests and vision exams. In case of emergency, wear or carry medical identification to let others know you use a steroid. You should not stop using prednisone suddenly. Follow your doctor's instructions about tapering your dose. Store at room temperature away from moisture, heat, and light. What happens if I miss a dose? Take the medicine as soon as you can, but skip the missed dose if it is almost time for your next dose. Do not take two doses at one time. What happens if I overdose? Seek emergency medical attention or call the Poison Help line at . High doses or long-term use of prednisone can lead to thinning skin, easy bruising, changes in bodyfat (especially in your face, neck, back, and waist), increased acne or facial hair, menstrual problems, impotence, or loss of interest in sex. What should I avoid while taking prednisone? Do not receive a 'live' vaccine while using prednisone. The vaccine may not work as well and may not fully protect you from disease. Live vaccines include measles, mumps, rubella (MMR), polio, rotavirus, typhoid, yellow fever, varicella (chickenpox), zoster (shingles), and nasal flu (influenza) vaccine. Avoid being near people who are sick or have infections. Call your doctor for preventive treatment if you are exposed to chickenpox or measles. These conditions can be serious or even fatal in peoplewho are using steroid medicine. Avoid drinking alcohol. What are the possible side effects of prednisone? Get emergency medical help if you have signs of an allergic reaction: hives; difficult breathing; swelling of your face, lips, tongue, or throat. Call your doctor at once if you have: muscle pain or weakness; blurred vision, tunnel vision, eye pain, or seeing halos around lights; severe depression, changes in personality, unusual thoughts or behavior; bloody or tarry stools, coughing up blood or vomit that looks like coffee grounds; swelling, rapid weight gain, feeling short of breath; irregular heartbeats; severe headache, pounding in your neck or ears; decreased adrenal gland hormones--muscle weakness, tiredness, diarrhea, nausea, menstrual changes, skin discoloration, craving salty foods, and feeling light- headed; or low potassium level--leg cramps, constipation, irregular heartbeats, fluttering in your chest, increased thirst or urination, numbness or tingling, muscle weakness or limp feeling. Prednisone can affect growth in children. Tell your doctor if your child is not growing at a normalrate while using this medicine. Common side effects may include: weight gain (especially in your face or your upper back and torso); increased appetite; mood changes, trouble sleeping; changes in your menstrual periods; problems with memory or thought; muscle or joint pain; weakness; headache, dizziness, spinning sensation; nausea, bloating, loss of appetite; slow wound healing; or acne, increased sweating, thinning skin, bruising, pinpoint spots under your skin. This is not a complete list of side effects and others may occur. Call your doctor for medical advice about side effects. You may report side effects to FDA at 4-952-CHC-6586. What other drugs will affect prednisone? Sometimes it is not safe to use certain medications at the same time. Some drugs can affect your blood levels of other drugs you take, which may increase side effects or make the medications less effective. Tell your doctor about all your current medicines. Many drugs can affect prednisone, especially: bupropion; cyclosporine; digoxin; ketoconazole; an antibiotic; control pills or hormone replacement therapy; a diuretic or 'water pill'; insulin or oral diabetes medicine; a blood thinner--warfarin, Coumadin, Jantoven; or NSAIDs (nonsteroidal anti-inflammatory drugs)--aspirin, ibuprofen (Advil, Motrin), naproxen (Aleve), celecoxib, diclofenac, indomethacin, meloxicam, and others. This list is not complete and many other drugs may affect prednisone. This includes prescription and [id number] medicines, vitamins, and herbal products. Not all possible drug interactions are listed here. Where can I get more information? Your pharmacist can provide more information about prednisone. Remember, keep this and all other medicines out of the reach of children, never share your medicines with others, and use this medication only for the indication prescribed. Every effort has been made to ensure that the information provided by [employer] ('[employer]') is accurate, up-to-date, and complete, but no guarantee is made to that effect. Drug information contained herein may be time sensitive. [employer] information has been compiled for use by healthcare practitioners and consumers in the [place] and therefore [employer] does not warrant that uses outside of the [place] are appropriate, unless specifically indicated otherwise. [employer] drug information does not endorse drugs, diagnose patients or recommend therapy. [employer] drug information isan informational resource designed to assist licensed healthcare practitioners in caring for their p atients and/or to serve consumers viewing this service as a supplement to, and not a substitute for, the expertise, skill, knowledge and judgment of healthcare practitioners. The absence of a warningfor a given drug or drug combination in no way should be construed to indicate that the drug or drug combination is safe, effective or appropriate for any given patient. [employer] does not assume any responsibility for any aspect of healthcare administered with the aid of information [employer] provides. The information contained herein is not intended to cover all possible uses, directions, precautions, warnings, drug interactions, allergic reactions, or adverse effects. If you have questions about the drugs you are taking, check with your doctor, nurse or pharmacist. Copyright 0489-9150 [employer]. Version: 10.. Revision Date: 08/02/2018. Education Materials Asthma, Adult Asthma is a long-term (chronic) condition that causes recurrent episodes in which the airways become tight and narrow. The airways are the passages that lead from the nose and mouth down into the lungs. Asthma episodes, also called asthma attacks, can cause coughing, wheezing, shortness of breath, and chest pain. The airways can also fill with mucus. During an attack, it can be difficult to breathe. Asthma attacks can range from minor to life threatening. Asthma cannot be cured, but medicines and lifestyle changes can help control it and treat acute attacks. What are the causes? This condition is believed to be caused by inherited (genetic) and environmental factors, but its exact cause is not known. There are many things that can bring on an asthma attack or make asthma symptoms worse (triggers). Asthma triggers are different for each person. Common triggers include: Mold. Dust. Cigarette smoke. Cockroaches. Things that can cause allergy symptoms (allergens), such as animal dander or pollen from trees or grass. Air pollutants such as household record producer, wood smoke, smog, or chemical odors. Cold air, weather changes, and winds (which increase molds and pollen in the air). Strong emotional expressions such as crying or laughing hard. Stress. Certain medicines (such as aspirin) or types of medicines (such as beta-blockers). Sulfites in foods and drinks. Foods and drinks that may contain sulfites include dried fruit, potato chips, and sparkling grape juice. Infections or inflammatory conditions such as the flu, a cold, or inflammation of the nasal membranes (rhinitis). Gastroesophageal reflux disease (GERD). Exercise or strenuous activity. What are the signs or symptoms? Symptoms of this condition may occur right after asthma is triggered or many hours later. Symptoms include: Wheezing. This can sound like whistling when you breathe. Excessive nighttime or field map editor coughing. Frequent or severe coughing with a common cold. Chest tightness. Shortness of breath. Tiredness (fatigue) with minimal activity. How is this diagnosed? This condition is diagnosed based on: Your medical history. A physical exam. Tests, which may include: ? Lung function studies and pulmonary studies (spirometry). These tests can evaluate the flow of air in your lungs. ? Allergy tests. ? Imaging tests, such as X-rays. How is this treated? There is no cure for this condition, but treatment can help control your symptoms. Treatment for asthma usually involves: Identifying and avoiding your asthma triggers. Using medicines to control your symptoms. Generally, two types of medicines are used to treat asthma: ? Controller medicines. These help prevent asthma symptoms from occurring. They are usually taken every day. ? Fast-acting reliever or rescue medicines. These quickly relieve asthma symptoms by widening the narrow and tight airways. They are used as needed and provide short-term relief. Using supplemental oxygen. This may be needed during a severe episode. Using other medicines, such as: ? Allergy medicines, such as antihistamines, if your asthma attacks are triggered by allergens. ? Immune medicines (immunomodulators). These are medicines that help control the immune system. Creating an asthma action plan. An asthma action plan is a written plan for managing and treating your asthma attacks. This plan includes: ? A list of your asthma triggers and how to avoid them. ? Information about when medicines should be taken and when their dosage should be changed. ? Instructions about using a device called a peak flow meter. A peak flow meter measures how well thelungs are working and the severity of your asthma. It helps you monitor your condition. Follow these instructions at home: Controlling your home environment Control your home environment in the following ways to help avoid triggers and prevent asthma attacks: Change your heating and air conditioning filter regularly. Limit your use of fireplaces and wood stoves. Get rid of pests (such as roaches and mice) and their droppings. Throw away plants if you see mold on them. Clean floors and dust surfaces regularly. Use unscented cleaning products. Try to have someone else vacuum for you regularly. Stay out of rooms while they are being vacuumed and for a short while afterward. If you vacuum, use a dust mask from a hardware store, a double-layered or microfilter vacuum ceiling cleaner bag, or a vacuum ceiling cleaner with a HEPA filter. Replace carpet with wood, tile, or vinyl ed. Carpet can trap dander and dust. Use allergy-proof pillows, mattress covers, and box spring covers. Keep your bedroom a trigger-free room. Avoid pets and keep windows closed when allergens are in the air. Wash beddings every week in hot water and dry them in a dryer. Use blankets that are made of polyester or cotton. Clean bathrooms and christopher with bleach. If possible, have someone repaint the jones in these rooms with mold-resistant paint. Stay out of the rooms that are being cleaned and painted. Wash your hands often with soap and water. If soap and water are not available, use hand aeroplane pilot. Do not allow anyone to smoke in your home. General instructions Take nnzj-asv-bzkwrix and prescription medicines only as told by your health care provider. ? Speak with your health care provider if you have questions about how or when to take the medicines. ? Make note if you are requiring more frequent dosages. Do not use any products that contain nicotine or tobacco, such as cigarettes and e-cigarettes. If you need help quitting, ask your health care provider. Also, avoid being exposed to secondhand smoke. Use a peak flow meter as told by your health care provider. Record and keep track of the readings. Understand and use the asthma action plan to help minimize, or stop an asthma attack, without needing to seek medical care. Make sure you stay up to date on your yearly vaccinations as told by your health care provider. This may include vaccines for the flu and pneumonia. Avoid outdoor activities when allergen counts are high and when air quality is low. Wear a ski mask that covers your nose and mouth during outdoor winter activities. Exercise indoors on cold days if you can. Warm up before exercising, and take time for a cool-down period after exercise. Keep all follow-up visits as told by your health care provider. This is important. Where to find more information For information about asthma, turn to the Centers for Disease Control and Prevention at www.cdc.gov/asthma/faqs.htm For air quality information, turn to [employer] at https://airnow.gov/ Contact a health care provider if: You have wheezing, shortness of breath, or a cough even while you are taking medicine to prevent attacks. The mucus you cough up (sputum) is thicker than usual. Your sputum changes from clear or white to yellow, green, ness, or bloody. Your medicines are causing side effects, such as a rash, itching, swelling, or trouble breathing. You need to use a reliever medicine more than 2 3 times a week. Your peak flow reading is still at 50 79% of your personal best after following your action plan for 1 hour. You have a fever. Get help right away if: You are getting worse and do not respond to treatment during an asthma attack. You are short of breath when at rest or when doing very little physical activity. You have difficulty eating, drinking, or talking. You have chest pain or tightness. You develop a fast heartbeat or palpitations. You have a bluish color to your lips or fingernails. You are light-headed or dizzy, or you faint. Your peak flow reading is less than 50% of your personal best. You feel too tired to breathe normally. Summary Asthma is a long-term (chronic) condition that causes recurrent episodes in which the airways become tight and narrow. These episodes can cause coughing, wheezing, shortness of breath, and chest pain. Asthma cannot be cured, but medicines and lifestyle changes can help control it and treat acute attacks. Make sure you understand how to avoid triggers and how and when to use your medicines. Asthma attacks can range from minor to life threatening. Get help right away if you have an asthma attack and do not respond to treatment with your usual rescue medicines. This information is not intended to replace advice given to you by your health care provider. Make sure you discuss any questions you have with your health care provider. Document Released: 04/24/2006 Document Revised: 06/27/2019 Document Reviewed: 05/29/2017 Elsevier Patient Education 2020 [employer] Additional Information VACCINATE! IT SAVES LIVES! Members of the community who have not yet received the COVID-19 vaccine and would like to receive it can visit one of [facility] vaccine clinics. There are many vaccine clinic locations within the [facility]. For locations and available times, please visit [email or web address] It is important to note that some COVID mobile vaccine clinics are held outdoors and may be canceled in rainy or stormy conditions. To learn more about pediatric vaccinations (ages 5-11), we invite you to visit the [facility] webpage. https://www.akThe Association of [employer] & Lounge [email or web address]/pages/[email or web address]-Wahrq-Upifpgkjfax-Khzpvkcurz-Tepdq-Vfe stions.htmlTo learn more about the COVID-19 vaccine, we invite you to visit the [employer] website for a list of frequently asked questions. [email or web address] _[email or web address].pdf [facility] Patient Portal Access Instructions: Stay connected with your healthcare team and access your personal medical information anytime with the [facility] Patient Portal.If you would like a full copy of your medical records, please contact the [facility] Medical Records Department, Monday through Monday between 8a.m. and 4:30p.m. Please follow the directions below to access the portal: 1.Access the email account you provided upon registration to the [facility].2.Look for an invitation email from [facility].3.Open the email and access the invitation link: Accept Invitation to [facility].Fill in the required pittman to create your account. Sign into www.[employer] To Get Approved For with your username and password that you created in the above steps to stay up to date. You can then view a summary of results, a summary of your visits, and the ability to download your summaries to your computer or send the information securely to a physician. Remember that your healthcare information is confidential, so carefully consider who you will allow to register on the [employer] Patient Portal for access to your information. You can also access the [employer] Patient Portal on the [facility] destini. Simply click on Health Records under [employer] and then click on the [employer] logo. HOW TO SAFELY DISPOSE OF PRESCRIPTION MEDICATIONS Please use one of the following methods to safely dispose of your unused medications. 1.Use a drug disposal kit: the drug disposal pouch allows you to safely discard your old and unuseddrugs. Ask your nurse to give you one when you are discharged.2.Visit a local take-back location: Many local pharmacies and police departments have programs that collect old and unwanted prescriptiondrugs. Call your local pharmacy or go to http://[employer]/5W7Nv2q to find one close to you.3.Make use of household items: Use cat litter or old coffee grounds to dispose medications if other options arenot available. Mix your drugs with these household products, seal them in an airtight container andthrow it into the garbage. Call [facility]: [phone] to be sure your drugs can be disposed of in this way. Some medicines may require a different approach.4.Never flush your medications down the toilet. IF YOU HAVE BEEN PRESCRIBED AN OPIOID FOR PAIN If you have been prescribed an opioid (such as hydrocodone, oxycodone or morphine), it is critical to understand the possible side effects and risks of opioid pain medications. Even when taken as directed, opioids can have several side effects including: Tolerance, meaning you might need to take more of a medication for the same pain relief. Nausea, vomiting and/or constipation. Sleepiness, dizziness, dry mouth, confusion, depression or itching. Physical dependence, meaning you have withdrawal symptoms when a medication is stopped, can develop within a few days. KNOW YOUR RESPONSIBILITIES It is important to know exactly how much and how often to take the opioid pain medications you are prescribed. Never take opioids in higher amounts or more often than prescribed. Do not combine opioids with alcohol or other drugs that cause drowsiness, such as benzodiazepines, also known as benzos, including diazepam and alprazolam, muscle relaxants or sleep aids. Never sell or share prescription opioids. This is illegal. Store opioids in a secure place and out of reach of others (including children, family, friends and visitors). The last page of this document has been signed and retained as a CHART COPY. Signatures Patient Education Materials Asthma, Adult Medication Leaflets cefdinir, prednisone My discharge plan and instructions have been reviewed and explained to me and I,TORRIE MARTINEZ understand my current condition and have read and understand these discharge instructions. I have received a written copy of the plan/instructions. If I have questions, I am aware that I should contact my doctor. 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 Signature: Date/Time: Relationship to Patient: Witness Name/Signature: [id number] Respiratory therapy Hospital Progress note Respiratory Therapy Evaluation Entered On: 12/15/2021 7:02 EDT Performed On: 12/15/2021 7:02 EDT by SONYA Klein Respiratory Therapy Evaluation RT Assessment [Frequency/Schedule] : treatments will be qid and q2prn SONYA Klein - 12/15/2021 9:18 EDT Chest X-Ray : Infiltrates in more than one lobe Respiratory Therapy Evaluation Score : 14 Respiratory Evaluation Triage Score : 3 - (11-15) Freq: QIDRT & Albuterol Q2 RT prn SONYA Klein - 12/15/2021 7:56 EDT Pulmonary Status : Severe chronic exacerbation Surgical Status : No surgeries Breath Sounds (RT) : Wheezes Respiratory Pattern (RT) : WILKES,Irregular or RR =26-30 Cough (RT) : Strong, productive Level of Activity : Ambulatory Mental Status : Alert, oriented SONYA Klein - 12/15/2021 7:02 EDT Digitally Signed by SONYA Klein on 12/15/2021 09:16 AM Digitally Signed by SONYA Klein RRT on 12/15/2021 09:18 AM [id number] Note Date of Service 12/14/2021 Chief Complaint SOB Subjective This is a split/shared visit with Dr. Barnes. Pt continues to improve on 5L via NC. Feels better but not at baseline. Discussed with pulmonology. Vitals and labs reviewed. Objective Vitals and Measurements T: 36.7 C (Oral) TMIN: 36.3 C (Oral) TMAX: 36.9 C (Oral) HR: 70(Monitored) RR: 18 BP: 141/91 SpO2: 98% Intake and Output 7AM Yesterday to 7AM Today Intake and Output (Last 24 hours) Intake Output Stool Count 0.00 Emesis Count 0.00 Total Summary Total Intake 0.00 Total Output 0.00 Fluid Balance 0.00 Physical Exam General: Alert and oriented x 3, NAD Head: Normocephalic, mmm, sclera nonicteric Cardiovascular: Normal rate and rhythm, no murmur, - edema Respiratory: Lungs diminished, easy Abdomen: soft and non-distended, bowel sounds active all 4 quadrants Neurological: Moving all 4 extremities, speech clear Psychological: normal affect, cooperative, good eye contact Weight Dosing Weight: 182.1 kg (12/12/21) Medications Medications (19) Active Scheduled: (10) albuterol - ipratropium 2.5 mg-0.5 mg/3 mL Inhal Jocelyn UD 3 mL, Inhalation, n1aXL-HL aspirin 81 mg Chewable 81 mg 1 tab(s), Oral, qDay budesonide 0.5 mg/2 mL Susp UD 0.5 mg 2 mL, Inhalation, BIDRT bupropion 150 mg/24 hours ER tablet 150 mg 1 tab(s), Oral, q24h cefTRIAXone IVP syringe 2 gram(s) 20 mL, IV Piggyback, qDay enoxaparin 40 mg/ 0.4mL syringe 40 mg 0.4 mL, Subcutaneous, qDay famotidine 20 mg tablet 20 mg 1 tab(s), Oral, BID methylPREDNISolone succ 40mg (40 mg/1mL) after dilution 40 mg 1 mL, IV Push, BIDAC montelukast 10 mg Tablet 10 mg 1 tab(s), Oral, qDay sertraline 100 mg tablet 100 mg 1 tab(s), Oral, qDay Continuous: (0) PRN: (9) acetaminophen 325 mg Tablet 650 mg 2 tab(s), Oral, q6h acetaminophen 325 mg Tablet 650 mg 2 tab(s), Oral, q4h acetaminophen-HYDROcodone 325-5 mg tablet 1 tab(s), Oral, q4h albuterol 0.083% Soln UD (2.5mg/3 mL) 2.5 mg 3 mL, Inhalation, q2h benzonatate 100 mg Capsule 100 mg 1 cap(s), Oral, TID guaifenesin 100 mg/5 mL 120 mL liquid 200 mg 10 mL, Oral, q4h melatonin 3 mg tablet 3 mg 1 tab(s), Oral, qHS ondansetron 2 mg/ 1 mL 2 mL INJ 4 mg 2 mL, IV Push, q4h polyethylene glycol 3350 - UD packet 17 gram(s) 15 mL, Oral, BID Lab Results 12/14 06:20 Glucose Level: 80 Sodium Level: 145 Potassium Level: 4.0 BUN: 15.0 Creatinine Lvl (s): 0.72 12/13 05:03 WBC: 8.4 Hgb: 10.0 L Hct: 35.8 Platelet: 255 Neutrophil %: 84.0 H Glucose Level: 105 Sodium Level: 144 Potassium Level: 4.8 BUN: 13.0 Creatinine Lvl (s): 0.61 EKG No qualifying data available. Assessment/Plan 1. Asthma exacerbation 2. Acute hypoxemic respiratory failure 3. Morbid obesity Acute on chronic hypoxemic respiratory failure-Pt currently on 5L via NC, on 4L at baseline. Pulmonology following appreciate input.Continue IV steroids, hopefully transition to oral taper tomorrow. Continue BiPAP at night.Continue aerosols scheduled and prn. Continue rocephin, plan for 7 day antibiotic course Disposition: Probable discharge home tomorrow with continued improvements Total visit time = 27 minutes; > 50% spent counseling/coordinating care Digitally Signed by SERGIO COLEMAN on 12/14/2021 12:58 PM [id number] Pulmonary Progress note Date of Service 12/14/21 Subjective Feels okay today, breathing improved. BiPAP this morning, Most recent ABG shows pH 7.41 with a PCO2of 68 and a PO2 of 195 Objective Vitals and Measurements T: 36.3 C (Oral) TMIN: 36.3 C (Oral) TMAX: 36.9 C (Oral) HR: 80(Monitored) RR: 20 BP: 145/84 SpO2: 94% Intake and Output 7AM Yesterday to 7AM Today Intake and Output (Last 24 hours) Intake Output Stool Count 0.00 Emesis Count 0.00 Total Summary Total Intake 0.00 Total Output 0.00 Fluid Balance 0.00 Physical Exam General-no acute distress, alert HEENT-normocephalic, atraumatic, BiPAP mask in place Pulmonary-somewhat diminished but no wheeze, fair air movement bilaterally Cardiovascular-regular, no appreciable murmurs, gallops or rubs Abdomen-soft, obese, bowel sounds positive Extremities-no cyanosis, clubbing or edema Neurologic-grossly nonfocal Weight Dosing Weight: 182.1 kg (12/12/21) Medications Medications (19) Active Scheduled: (10) albuterol - ipratropium 2.5 mg-0.5 mg/3 mL Inhal Jocelyn UD 3 mL, Inhalation, [id number] aspirin 81 mg Chewable 81 mg 1 tab(s), Oral, qDay budesonide 0.5 mg/2 mL Susp UD 0.5 mg 2 mL, Inhalation, BIDRT bupropion 150 mg/24 hours ER tablet 150 mg 1 tab(s), Oral, q24h cefTRIAXone IVP syringe 2 gram(s) 20 mL, IV Piggyback, qDay enoxaparin 40 mg/ 0.4mL syringe 40 mg 0.4 mL, Subcutaneous, qDay famotidine 20 mg tablet 20 mg 1 tab(s), Oral, BID methylPREDNISolone succ 40mg (40 mg/1mL) after dilution 40 mg 1 mL, IV Push, BIDAC montelukast 10 mg Tablet 10 mg 1 tab(s), Oral, qDay sertraline 100 mg tablet 100 mg 1 tab(s), Oral, qDay Continuous: (0) PRN: (9) acetaminophen 325 mg Tablet 650 mg 2 tab(s), Oral, q6h acetaminophen 325 mg Tablet 650 mg 2 tab(s), Oral, q4h acetaminophen-HYDROcodone 325-5 mg tablet 1 tab(s), Oral, q4h albuterol 0.083% Soln UD (2.5mg/3 mL) 2.5 mg 3 mL, Inhalation, q2h benzonatate 100 mg Capsule 100 mg 1 cap(s), Oral, TID guaifenesin 100 mg/5 mL 120 mL liquid 200 mg 10 mL, Oral, q4h melatonin 3 mg tablet 3 mg 1 tab(s), Oral, qHS ondansetron 2 mg/ 1 mL 2 mL INJ 4 mg 2 mL, IV Push, q4h polyethylene glycol 3350 - UD packet 17 gram(s) 15 mL, Oral, BID Lab Results 12/14 06:20 Glucose Level: 80 Sodium Level: 145 Potassium Level: 4.0 BUN: 15.0 Creatinine Lvl (s): 0.72 12/13 05:03 WBC: 8.4 Hgb: 10.0 L Hct: 35.8 Platelet: 255 Neutrophil %: 84.0 H Glucose Level: 105 Sodium Level: 144 Potassium Level: 4.8 BUN: 13.0 Creatinine Lvl (s): 0.61 EKG No qualifying data available. Assessment/Plan Asthma exacerbation Chronic hypoxemic hypercapnic respiratory failure Possible CVID reportedly on monthly IVIG infusions High suspicion for sleep apnea/obesity hypoventilation syndrome Severe obesity The patient carries a diagnosis of asthma and presented with what appears to be asthma exacerbation. She has chronic hypoxemic hypercapnic respiratory failure and would benefit from supplemental oxygen and positive pressure at night. Given the concerns about her immunodeficiency, reasonable to complete a 7-day course of antibiotics for community-acquired pneumonia. We will plan to taper down steroids as well. Plan: Treatment for community-acquired pneumonia for 7 day, patient currently on ceftriaxone Wean oxygen as tolerated: Patient is on a baseline of 4-5 L Continued DuoNebs scheduled every 4 hours with albuterol as needed Budesonide inhalation twice daily Continue methylprednisolone 40 mg twice daily with plans to discharge on prednisone taper Continued noninvasive ventilation while inpatient at night and with naps. Tolerating 22/02. She apparently had a PSG performed around [facility] with recommendations to undergo a pressure titration which I have encouraged her to schedule. Time Spent 15 minutes Digitally Signed by ROSE HERRERA MD on 12/14/2021 10:14 AM [id number] Note. MICRO - Microbiology PROCEDURE: Streptococcus Pneumoniae Urine Antig [^1 *1] SOURCE: Urine, Clean Catch BODY SITE: COLLECTED DATE/TIME: 12/12/2021 04:16 EDT RECEIVED DATE/TIME: 12/13/2021 19:44 EDT START DATE/TIME: 12/13/2021 19:44 EDT FREE TEXT SOURCE: FINAL REPORTS Final Report [] Verified Date/Time/Personnel: 12/13/2021 20:33 EDT Presumptive negative for pneumococcal pneumonia, suggesting no current or recent pneumococcal infection. Infection due to Strep pneumoniae cannot be ruled out since the antigen present in the sample may be below the detection limit of the test. Interpretive Data ^1: Streptococcus Pneumoniae Urine Antig This test has not been evaluated on patients taking antibiotics for greater than 24 hours or on patients who have recently completed an antibiotic regimen. The accuracy of this test has not been proven in young children. Performing Locations *1: This test was performed at: [address], [address] [place], [place] [id number] Note. MICRO - Microbiology PROCEDURE: Legionella Urine Ag [*1] SOURCE: Urine BODY SITE: COLLECTED DATE/TIME: 12/12/2021 04:16 EDT RECEIVED DATE/TIME: 12/13/2021 19:44 EDT START DATE/TIME: 12/13/2021 19:44 EDT FREE TEXT SOURCE: FINAL REPORTS Final Report [] Verified Date/Time/Personnel: 12/13/2021 20:33 EDT Presumptive negative for L. pneumophila serogroup 1 antigen in urine, suggesting no recent or current infection. Legionnaire's disease cannot be ruled out since other serogroups and species may also cause disease. Performing Locations *1: This test was performed at: [address], [address] [place], [place] [address]-13-2021 Note Date of Service 12/13/2021 Chief Complaint SOB Subjective This is a split/shared visit with Dr. Morales. Pt currently weaned to 6L via NC, tolerating well. Alittle more SOB than baseline but overall feeling much better. No other complaints. Vitals and labsreviewed. Objective Vitals and Measurements T: 36.6 C (Oral) TMIN: 35.9 C (Oral) TMAX: 36.9 C (Oral) HR: 61(Monitored) RR: 22 BP: 135/76 SpO2: 96% HT: 182.9 cm WT: 182.1 kg BMI: 54.44 Intake and Output 7AM Yesterday to 7AM Today Intake and Output (Last 24 hours) Intake Oral Intake 1020.00 Output Stool Count 0.00 Urine Count 5.00 Emesis Count 0.00 Total Summary Total Intake 1020.00 Total Output 0.00 Fluid Balance 1020.00 Physical Exam General: Alert and oriented x 3, NAD Head: Normocephalic, mmm, sclera nonicteric Cardiovascular: Normal rate and rhythm, no murmur, - edema Respiratory: Lungs exp wheeze, easy Abdomen: soft and non-distended, bowel sounds active all 4 quadrants Neurological: Moving all 4 extremities, speech clear Psychological: normal affect, cooperative, good eye contact Weight Dosing Weight: 182.1 kg (12/12/21) Medications Medications (19) Active Scheduled: (10) albuterol - ipratropium 2.5 mg-0.5 mg/3 mL Inhal Jocelyn UD 3 mL, Inhalation, [id number] aspirin 81 mg Chewable 81 mg 1 tab(s), Oral, qDay budesonide 0.5 mg/2 mL Susp UD 0.5 mg 2 mL, Inhalation, BIDRT bupropion 150 mg/24 hours ER tablet 150 mg 1 tab(s), Oral, q24h cefTRIAXone IVP syringe 2 gram(s) 20 mL, IV Piggyback, qDay enoxaparin 40 mg/ 0.4mL syringe 40 mg 0.4 mL, Subcutaneous, qDay famotidine 20 mg tablet 20 mg 1 tab(s), Oral, BID methylPREDNISolone succ 40mg (40 mg/1mL) after dilution 40 mg 1 mL, IV Push, BIDAC montelukast 10 mg Tablet 10 mg 1 tab(s), Oral, qDay sertraline 100 mg tablet 100 mg 1 tab(s), Oral, qDay Continuous: (0) PRN: (9) acetaminophen 325 mg Tablet 650 mg 2 tab(s), Oral, q6h acetaminophen 325 mg Tablet 650 mg 2 tab(s), Oral, q4h acetaminophen-HYDROcodone 325-5 mg tablet 1 tab(s), Oral, q4h albuterol 0.083% Soln UD (2.5mg/3 mL) 2.5 mg 3 mL, Inhalation, q2h benzonatate 100 mg Capsule 100 mg 1 cap(s), Oral, TID guaifenesin 100 mg/5 mL 120 mL liquid 200 mg 10 mL, Oral, q4h melatonin 3 mg tablet 3 mg 1 tab(s), Oral, qHS ondansetron 2 mg/ 1 mL 2 mL INJ 4 mg 2 mL, IV Push, q4h polyethylene glycol 3350 - UD packet 17 gram(s) 15 mL, Oral, BID Lab Results 12/13 05:03 WBC: 8.4 Hgb: 10.0 L Hct: 35.8 Platelet: 255 Neutrophil %: 84.0 H Glucose Level: 105 Sodium Level: 144 Potassium Level: 4.8 BUN: 13.0 Creatinine Lvl (s): 0.61 EKG No qualifying data available. Assessment/Plan 1. Asthma exacerbation 2. Acute hypoxemic respiratory failure 3. Morbid obesity Acute on chronic hypoxemic respiratory failure-Pt currently on 6L via NC, on 4L at baseline. Improvement noted in VBG. Pulmonology following appreciate input. IV steroids weaned to BID. Continue BiPAP at night as patient recently had sleep study and placed on positive pressure at night. Continue aerosols scheduled and prn. Continue rocephin Disposition: Possible discharge home in the next 24-48 hours with continued improvements Total visit time = 27 minutes; > 50% spent counseling/coordinating care Digitally Signed by SERGIO COLEMAN on 12/13/2021 12:56 PM [id number] Note Date of Service 12/13/2021 Chief Complaint SOB Subjective This is a split/shared visit with Dr. Morales. Pt currently weaned to 6L via NC, tolerating well. Alittle more SOB than baseline but overall feeling much better. No other complaints. Vitals and labsreviewed. Objective Vitals and Measurements T: 36.6 C (Oral) TMIN: 35.9 C (Oral) TMAX: 36.9 C (Oral) HR: 61(Monitored) RR: 22 BP: 135/76 SpO2: 96% HT: 182.9 cm WT: 182.1 kg BMI: 54.44 Intake and Output 7AM Yesterday to 7AM Today Intake and Output (Last 24 hours) Intake Oral Intake 1020.00 Output Stool Count 0.00 Urine Count 5.00 Emesis Count 0.00 Total Summary Total Intake 1020.00 Total Output 0.00 Fluid Balance 1020.00 Physical Exam General: Alert and oriented x 3, NAD Head: Normocephalic, mmm, sclera nonicteric Cardiovascular: Normal rate and rhythm, no murmur, - edema Respiratory: Lungs exp wheeze, easy Abdomen: soft and non-distended, bowel sounds active all 4 quadrants Neurological: Moving all 4 extremities, speech clear Psychological: normal affect, cooperative, good eye contact Weight Dosing Weight: 182.1 kg (12/12/21) Medications Medications (19) Active Scheduled: (10) albuterol - ipratropium 2.5 mg-0.5 mg/3 mL Inhal Jocelyn UD 3 mL, Inhalation, [id number] aspirin 81 mg Chewable 81 mg 1 tab(s), Oral, qDay budesonide 0.5 mg/2 mL Susp UD 0.5 mg 2 mL, Inhalation, BIDRT bupropion 150 mg/24 hours ER tablet 150 mg 1 tab(s), Oral, q24h cefTRIAXone IVP syringe 2 gram(s) 20 mL, IV Piggyback, qDay enoxaparin 40 mg/ 0.4mL syringe 40 mg 0.4 mL, Subcutaneous, qDay famotidine 20 mg tablet 20 mg 1 tab(s), Oral, BID methylPREDNISolone succ 40mg (40 mg/1mL) after dilution 40 mg 1 mL, IV Push, BIDAC montelukast 10 mg Tablet 10 mg 1 tab(s), Oral, qDay sertraline 100 mg tablet 100 mg 1 tab(s), Oral, qDay Continuous: (0) PRN: (9) acetaminophen 325 mg Tablet 650 mg 2 tab(s), Oral, q6h acetaminophen 325 mg Tablet 650 mg 2 tab(s), Oral, q4h acetaminophen-HYDROcodone 325-5 mg tablet 1 tab(s), Oral, q4h albuterol 0.083% Soln UD (2.5mg/3 mL) 2.5 mg 3 mL, Inhalation, q2h benzonatate 100 mg Capsule 100 mg 1 cap(s), Oral, TID guaifenesin 100 mg/5 mL 120 mL liquid 200 mg 10 mL, Oral, q4h melatonin 3 mg tablet 3 mg 1 tab(s), Oral, qHS ondansetron 2 mg/ 1 mL 2 mL INJ 4 mg 2 mL, IV Push, q4h polyethylene glycol 3350 - UD packet 17 gram(s) 15 mL, Oral, BID Lab Results 12/13 05:03 WBC: 8.4 Hgb: 10.0 L Hct: 35.8 Platelet: 255 Neutrophil %: 84.0 H Glucose Level: 105 Sodium Level: 144 Potassium Level: 4.8 BUN: 13.0 Creatinine Lvl (s): 0.61 EKG No qualifying data available. Assessment/Plan 1. Asthma exacerbation 2. Acute hypoxemic respiratory failure 3. Morbid obesity Acute on chronic hypoxemic respiratory failure-Pt currently on 6L via NC, on 4L at baseline. Improvement noted in VBG. Pulmonology following appreciate input. IV steroids weaned to BID. Continue BiPAP at night as patient recently had sleep study and placed on positive pressure at night. Continue aerosols scheduled and prn. Continue rocephin Disposition: Possible discharge home in the next 24-48 hours with continued improvements Total visit time = 27 minutes; > 50% spent counseling/coordinating care Digitally Signed by SERGIO COLEMAN on 12/13/2021 12:56 PM [id number] Pulmonary Consult note Date of Service 12/13/2021 Reason for Consultation Asthma Exacerbation Referring Physician Dr. Morales History of Present Illness This is a 31-year-old female with a history of asthma, chronic hypoxemic/hypercapnic respiratory failure on 4-5 L of home oxygen who is presenting to [facility] with shortness of breath. The patient reports that she has a weakened immune system and gets injections monthly (?CVID) of IVIG. She usually lives in [facility] and is visiting [place]. The patient recently underwent a sleep study and is being set up with some form of positive pressure device for nighttime. The patient reports being in her usual state of health prior to admission. She does not cite a clear exacerbating factor for worsening shortness of breath. The patient was not using her inhaler more often than she normally does because she did not feel like she needed it. She denies any fevers, chills, abdominal pain, purulent sputum or change in sputum, night sweats. The patient was wheezing and was coughing. Paramedics initially noted hypoxemia upon initial evaluation to 70%. She was then transferred to [facility] where she was placed on noninvasive positive pressure ventilation with this improvement. She was then transferred to [facility]. Overnight, the patient feels improvement in her shortness of breath. She is currently off of noninvasive positive pressure ventilation on 6 L nasal cannula. Review of Systems 10 point review of systems performed and is negative unless otherwise noted in HPI Physical Exam Vitals and Measurements T: 36.6 C (Oral) TMIN: 35.9 C (Oral) TMAX: 36.9 C (Oral) HR: 61(Monitored) RR: 22 BP: 135/76 SpO2: 96% HT: 182.9 cm WT: 182.1 kg BMI: 54.44 Weight Dosing Weight: 182.1 kg (12/12/21) - GENERAL: No acute distress. - HEENT: EOMI. moist mucous membranes. - LUNGS: Decreased breath sounds bilaterally, some end expiratory wheezing in all [place]. No accessory muscle use. - CARDIOVASCULAR: Regular rate and rhythm. - ABDOMEN: Soft, non-tender and non-distended. - EXTREMITIES: No edema. - SKIN: No rashes or lesions. Warm. - NEUROLOGIC: No focal neurological deficits. - PSYCHIATRIC: Cooperative. Appropriate mood and affect. Lab Results 12/13 05:03 WBC: 8.4 Hgb: 10.0 L Hct: 35.8 Platelet: 255 Neutrophil %: 84.0 H Glucose Level: 105 Sodium Level: 144 Potassium Level: 4.8 BUN: 13.0 Creatinine Lvl (s): 0.61 Assessment/Plan Assessment: Asthma exacerbation Chronic hypoxemic hypercapnic respiratory failure Possible CVID reportedly on monthly IVIG infusions High suspicion for sleep apnea Severe obesity The patient carries a diagnosis of asthma and presented with what appears to be asthma exacerbation. She has chronic hypoxemic hypercapnic respiratory failure and would benefit from supplemental oxygen and positive pressure at night. Given the concerns about her immunodeficiency, reasonable to complete a 7-day course of antibiotics for community-acquired pneumonia. We will plan to taper down steroids as well. Plan: Treatment for community-acquired pneumonia for 7 day, patient currently on ceftriaxone Wean oxygen as tolerated: Patient is on a baseline of 4-5 L Continued DuoNebs scheduled every 4 hours with albuterol as needed Budesonide inhalation twice daily Wean methylprednisolone to 40 mg twice daily Continued noninvasive ventilation while inpatient at night and with naps. Tolerating 22/02 We will plan to continue to follow The you very much for this consultation Problem List/Past Medical History Ongoing Abdominal pain Headache Lightheadedness Nausea and vomiting Pneumonia Historical No qualifying data Procedure/Surgical History section Tonsillectomy Medications Inpatient acetaminophen, 650 mg= 2 tab(s), Oral, q6h, PRN acetaminophen, 650 mg= 2 tab(s), Oral, q4h, PRN aspirin, 81 mg= 1 tab(s), Oral, qDay budesonide 0.5 mg/2 mL inhalation suspension, 0.5 mg= 2 mL, Inhalation, BIDRT cefTRIAXone, 2 gram(s)= 20 mL, IV Piggyback, qDay DuoNeb, 3 mL, Inhalation, q2hRT, PRN DuoNeb, 3 mL, Inhalation, [id number] famotidine, 20 mg= 1 tab(s), Oral, BID guaiFENesin, 200 mg= 10 mL, Oral, q4h, PRN Lovenox, 40 mg= 0.4 mL, Subcutaneous, qDay melatonin, 3 mg= 1 tab(s), Oral, qHS, PRN methylPREDNISolone sodium succinate 40 mg preservative-free injection, 40 mg= 1 mL, IV Push, q8h Miralax Powder Packet, 17 gram(s)= 15 mL, Oral, BID, PRN montelukast, 10 mg= 1 tab(s), Oral, qDay Valencia 325- 5 mg oral tablet, 1 tab(s), Oral, q4h, PRN ondansetron, 4 mg= 2 mL, IV Push, q4h, PRN sertraline, 100 mg= 1 tab(s), Oral, qDay Tessalon Perles, 100 mg= 1 cap(s), Oral, TID, PRN Wellbutrin XL, 150 mg= 1 tab(s), Oral, q24h Home albuterol 2.5 mg/3 mL (0.083%) inhalation solution, 2.5 mg= 3 mL, Inhalation, q4hRT, PRN Anoro Ellipta 62.5 mcg-25 mcg/inh inhalation powder, 1 puff(s), Inhalation, qDay aspirin, 81 mg, Oral, qDay Breo Ellipta 200 mcg-25 mcg/inh inhalation powder, 1 puff(s), Inhalation, Daily DuoNeb, 3 mL, Inhalation, q4hRT DuoNeb, 3 mL, Inhalation, q2hRT, PRN famotidine 20 mg oral tablet, 20 mg= 1 tab(s), Oral, BID ferrous sulfate 325 mg (65 mg elemental iron) oral delayed release tablet, 325 mg= 1 tab(s), Oral, qDay fluticasone-salmeterol 232 mcg-14 mcg/inh inhalation powder, 1 puff(s), Inhalation, BID montelukast, 10 mg, Oral, qDay sertraline, 100 mg, Oral, qDay SOLU-Medrol, 60 mg= 1.5 mL, IV Push, q8h Wellbutrin XL 150 mg/24 hours oral tablet, extended release, 150 mg= 1 tab(s), Oral, q24h Allergies NKA Social History Smoking Status - 02/02/2018 Never smoker Alcohol - Low Risk, 03/20/2017 Frequency: 1-2 times per year., 03/20/2017 Home/Environment Domestic Concerns: None. Living situation: Home/Independent. Primary Risk Assessment Consultant: self. Safe place to go: Yes. Lives In: 2nd floor bedroom, 2nd floor bathroom, basement laundry. Current Home Treatments Oxygen therapy. Professional Skilled Services or Special Community Resources None. Financial concerns: No. Marital Status: Unmarried., 12/12/2021 Nutrition/Health Type of diet: Regular. Appetite Good. Eating Difficulties None. Caffeine intake amount: 3-4 mountain dew/ day., 12/12/2021 Substance Abuse - Denies Substance Abuse, 12/23/2016 Use: Never., 12/12/2021 Tobacco - Denies Tobacco Use, 04/13/2018 Nicotine Use: Never (less than 100 in lifetime)., 12/12/2021 Family History Cancer: Father. Diabetes: Grandparent.Negative: Mother. Seizures: Mother. Stroke: Mother. Immunizations No qualifying data available. Digitally Signed by CHIRAG PEARSON MD on 12/13/2021 12:35 PM [facility] [id number] Note. MICRO - Microbiology PROCEDURE: Streptococcus Pneumoniae Urine Antig [^1 *1] SOURCE: Urine BODY SITE: COLLECTED DATE/TIME: 12/13/2021 01:18 EDT RECEIVED DATE/TIME: 12/13/2021 01:24 EDT START DATE/TIME: 12/13/2021 01:24 EDT FREE TEXT SOURCE: FINAL REPORTS Final Report [] Verified Date/Time/Personnel: 12/13/2021 01:39 EDT Presumptive negative for pneumococcal pneumonia, suggesting no current or recent pneumococcal infection. Infection due to Strep pneumoniae cannot be ruled out since the antigen present in the sample may be below the detection limit of the test. Interpretive Data ^1: Streptococcus Pneumoniae Urine Antig This test has not been evaluated on patients taking antibiotics for greater than 24 hours or on patients who have recently completed an antibiotic regimen. The accuracy of this test has not been proven in young children. Performing Locations *1: This test was performed at: [address], [address] [place], [place] [address]-13-2021 Note. MICRO - Microbiology PROCEDURE: Legionella Urine Ag [*1] SOURCE: Urine BODY SITE: COLLECTED DATE/TIME: 12/13/2021 01:18 EDT RECEIVED DATE/TIME: 12/13/2021 01:24 EDT START DATE/TIME: 12/13/2021 01:24 EDT FREE TEXT SOURCE: FINAL REPORTS Final Report [] Verified Date/Time/Personnel: 12/13/2021 01:39 EDT Presumptive negative for L. pneumophila serogroup 1 antigen in urine, suggesting no recent or current infection. Legionnaire's disease cannot be ruled out since other serogroups and species may also cause disease. Performing Locations *1: This test was performed at: [address], [address] [place], [place] [address]-12-2021 History and physical note Chief Complaint SOB History of Present Illness Patient is a 31-year-old female with history of severe asthma who is chronically on 4 L home O2 presented to the ED with complaints of increased shortness of breath and congestion. Per paramedics oxygen upon arrival was 78%. She was admitted to [facility] with severe asthma exacerbation. While hospitalized she was started on bilevel NIPPV and has had persistent hypoxemia and hypercapnea. Given her risk factors and lack of improvement she was transitioned to [facility] for pulmonary medicine evaluation. She is not SOB at the present time. She is comfortable and tolerating NIPPV. No cough. No CP or palpitation. Feels hungry. Review of Systems Complete detailed review of systems obtained and all pertinent positives and negatives are noted inthe history of present illness. Physical Exam Vitals and Measurements T: 36.8 C (Oral) TMIN: 36.3 C (Oral) TMAX: 36.8 C (Oral) HR: 92 RR: 18 BP: 149/94 SpO2: 92% HT: 182.9 cm WT: 182.1 kg BMI: 54.44 Weight Dosing Weight: 182.1 kg (12/12/21) Physical Examination General: No apparent distress. Alert and appropriate. HEENT: NCAT EOMI Neck: Supple. Cardiovascular: S1 S2 normal. No extra-audible heart tones. Respiratory: Diminished air exchange. Inspiratory and expiratory wheezing. Abdominal: Soft, nontender and nonrigid. No guarding. Bowel sounds present. Extremities: Mild edema to RLE. Adequate peripheral circulation. Neurological: Grossly intact without focal deficit. Cerebellar function preserved. Lab Results No 36 Hour Lab Data Assessment/Plan 1. Asthma exacerbation 2. Acute hypoxemic respiratory failure 3. Morbid obesity Continue IV steroids and ABX. Nebulizers scheduled and PRN. Will consult pulmonary medicine. Continue bipap. VBG in am. Budesonide. Lovenox for DVT prophylaxis. Orders: acetaminophen, Start: 12/12/21 16:32:00 EDT, Dose = 650 mg, = 2 tab(s), Oral, q6h, PRN, Temperaturegreater than 38.3 degrees C, 12/12/21 16:32:00 EDT acetaminophen, Start: 12/12/21 16:32:00 EDT, Dose = 650 mg, = 2 tab(s), Oral, q4h, PRN, Pain, scale1-3, 12/12/21 16:32:00 EDT acetaminophen-hydrocodone, Start: 12/12/21 16:32:00 EDT, Dose = 1 tab(s), Tab, Oral, q4h, PRN, Pain, scale 4-6, 12/12/21 16:32:00 EDT albuterol-ipratropium, Start: 12/12/21 16:32:00 EDT, Dose = 3 mL, Soln, Inhalation, q2hRT, PRN, Wheezing, 12/12/21 16:32:00 EDT albuterol-ipratropium, Start: 12/12/21 16:34:00 EDT, Dose = 3 mL, Soln, Inhalation, [id number], 12/12/21 16:34:00 EDT aspirin, Start: 12/12/21 19:11:00 EDT, Dose = 81 mg, Oral, qDay, 12/12/21 19:11:00 EDT budesonide, Start: 12/12/21 19:00:00 EDT, Dose = 0.5 mg, = 2 mL, Inhalation, BIDRT, 12/12/21 16:35:00 EDT buPROPion, Start: 12/12/21 20:00:00 EDT, Dose = 150 mg, = 1 tab(s), Oral, q24h, 12/12/21 19:11:00 EDT cefTRIAXone, Start: 12/13/21 6:00:00 EDT, Dose = 2 gram(s), = 20 mL, IV Piggyback, qDay, Rate: 40 mL/hr, Infuse over: 30 minute(s), 0, 12/12/21 16:32:00 EDT enoxaparin, Start: 12/13/21 9:00:00 EDT, Dose = 40 mg, = 0.4 mL, Subcutaneous, qDay, 0, 12/12/21 16:32:00 EDT famotidine, Start: 12/12/21 21:00:00 EDT, Dose = 20 mg, = 1 tab(s), Oral, BID, 12/12/21 19:11:00 EDT melatonin, Start: 12/12/21 16:32:00 EDT, Dose = 3 mg, = 1 tab(s), Oral, qHS, PRN, Sleep, May repeatx 1 dose, 12/12/21 16:32:00 EDT methylPREDNISolone, Start: 12/12/21 16:50:00 EDT, Dose = 40 mg, = 1 mL, IV Push, q8h, 0, 12/12/21 16:34:00 EDT montelukast, Start: 12/12/21 19:11:00 EDT, Dose = 10 mg, = 1 tab(s), Oral, qDay, 12/12/21 19:11:00 EDT ondansetron, Start: 12/12/21 16:32:00 EDT, Dose = 4 mg, = 2 mL, IV Push, q4h, PRN, Nausea, 12/13/2215:32:00 EDT polyethylene glycol 3350, Start: 12/12/21 16:32:00 EDT, Dose = 17 gram(s), = 15 mL, Oral, BID, PRN,Constipation, 12/12/21 16:32:00 EDT sertraline, Start: 12/12/21 19:11:00 EDT, Dose = 100 mg, = 1 tab(s), Oral, qDay, 12/12/21 19:11:00 EDT Activity as tolerated Admit to Inpatient Basic Metabolic Panel BIPAP Code Status Complete Blood Count Consult to Physician Diet Order Legionella Urine Ag Magnesium Level Mycoplasma Antibody ROUTINE EMERGENCY TREATMENT - Full Code Streptococcus Pneumoniae Urine Antig Telemetry Monitoring Titrate FiO2 to maintain O2 Sat Venous Blood Gas (AH) Problem List/Past Medical History Ongoing Abdominal pain Headache Lightheadedness Nausea and vomiting Pneumonia Historical No qualifying data Procedure/Surgical History section Tonsillectomy Medications Home Medications (13) Active albuterol 2.5 mg/3 mL (0.083%) inhalation solution 2.5 mg = 3 mL, PRN, Inhalation, q4hRT Anoro Ellipta 62.5 mcg-25 mcg/inh inhalation powder 1 puff(s), Inhalation, qDay aspirin 81 mg, Oral, qDay Breo Ellipta 200 mcg-25 mcg/inh inhalation powder 1 puff(s), Inhalation, Daily DuoNeb 3 mL, Inhalation, q4hRT DuoNeb 3 mL, PRN, Inhalation, q2hRT famotidine 20 mg oral tablet 20 mg = 1 tab(s), Oral, BID ferrous sulfate 325 mg (65 mg elemental iron) oral delayed release tablet 325 mg = 1 tab(s), Oral, qDay fluticasone-salmeterol 232 mcg-14 mcg/inh inhalation powder 1 puff(s), Inhalation, BID montelukast 10 mg, Oral, qDay sertraline 100 mg, Oral, qDay SOLU-Medrol 60 mg = 1.5 mL, IV Push, q8h Wellbutrin XL 150 mg/24 hours oral tablet, extended release 150 mg = 1 tab(s), Oral, q24h Allergies NKA Social History Smoking Status - 02/02/2018 Never smoker Alcohol - Low Risk, 03/20/2017 Frequency: 1-2 times per year., 03/20/2017 Home/Environment Domestic Concerns: None. Living situation: Home/Independent. Primary Risk Assessment Consultant: self. Safe place to go: Yes. Lives In: 2nd floor bedroom, 2nd floor bathroom, basement laundry. Current Home Treatments Oxygen therapy. Professional Skilled Services or Special Community Resources None. Financial concerns: No. Marital Status: Unmarried., 12/12/2021 Nutrition/Health Type of diet: Regular. Appetite Good. Eating Difficulties None. Caffeine intake amount: 3-4 mountain dew/ day., 12/12/2021 Substance Abuse - Denies Substance Abuse, 12/23/2016 Use: Never., 12/12/2021 Tobacco - Denies Tobacco Use, 04/13/2018 Nicotine Use: Never (less than 100 in lifetime)., 12/12/2021 Family History Cancer: Father. Diabetes: Grandparent.Negative: Mother. Seizures: Mother. Stroke: Mother. Immunizations No qualifying data available. Code Status Code Status - Ordered -- 12/12/21 16:32:00 EDT, Full Code, Constant Order Digitally Signed by DEMETRIO MORALES MD FACP on 12/12/2021 07:18 PM [id number] Hospital Progress note Respiratory Therapy Evaluation Entered On: 12/12/2021 16:43 EDT Performed On: 12/12/2021 16:42 EDT by Zach Sykes [employer] TRIMMER Respiratory Therapy Evaluation Pulmonary Status : Severe chronic exacerbation Surgical Status : No surgeries Chest X-Ray : Infiltrates, atelectasis, pleural effusion Breath Sounds (RT) : Clear Respiratory Pattern (RT) : Increased RR=21-25 Cough (RT) : Strong, non-productive Respiratory Therapy Evaluation Score : 7 Level of Activity : Ambulatory Mental Status : Alert, oriented RT Assessment [Frequency/Schedule] : Takes four times a day at home Zach Sykes [employer] TRIMMER - 12/12/2021 16:42 EDT Digitally Signed by Zach Sykes [employer]WE[employer] TRIMMER on 12/12/2021 04:42 PM [id number] Evaluation + Plan noteExtracted from: Title:History and Physical Author:DEMETRIO MORALES MD FACP Date:12/12/21 1. Asthma exacerbation 2. Acute hypoxemic respiratory failure 3. Morbid obesity Continue IV steroids and ABX. Nebulizers scheduled and PRN. Will consult pulmonary medicine. Continue bipap. VBG in am. Budesonide. Lovenox for DVT prophylaxis. Orders: acetaminophen, Start: 12/12/21 16:32:00 EDT, Dose = 650 mg, = 2 tab(s), Oral, q6h, PRN, Temperature greater than 38.3 degrees C, 12/12/21 16:32:00 EDT acetaminophen, Start: 12/12/21 16:32:00 EDT, Dose = 650 mg, = 2 tab(s), Oral, q4h, PRN, Pain, scale 1-3, 12/12/21 16:32:00 EDT acetaminophen-hydrocodone, Start: 12/12/21 16:32:00 EDT, Dose = 1 tab(s), Tab, Oral, q4h, PRN, Pain, scale 4-6, 12/12/21 16:32:00 EDT albuterol-ipratropium, Start: 12/12/21 16:32:00 EDT, Dose = 3 mL, Soln, Inhalation, q2hRT, PRN, Wheezing, 12/12/21 16:32:00 EDT albuterol-ipratropium, Start: 12/12/21 16:34:00 EDT, Dose = 3 mL, Soln, Inhalation, o4sRD-SC, 12/12/21 16:34:00 EDT aspirin, Start: 12/12/21 19:11:00 EDT, Dose = 81 mg, Oral, qDay, 12/12/21 19:11:00 EDT budesonide, Start: 12/12/21 19:00:00 EDT, Dose = 0.5 mg, = 2 mL, Inhalation, BIDRT, 12/12/21 16:35:00 EDT buPROPion, Start: 12/12/21 20:00:00 EDT, Dose = 150 mg, = 1 tab(s), Oral, q24h, 12/12/21 19:11:00 EDT cefTRIAXone, Start: 12/13/21 6:00:00 EDT, Dose = 2 gram(s), = 20 mL, IV Piggyback, qDay, Rate: 40 mL/hr, Infuse over: 30 minute(s), 0, 12/12/21 16:32:00 EDT enoxaparin, Start: 12/13/21 9:00:00 EDT, Dose = 40 mg, = 0.4 mL, Subcutaneous, qDay, 0, 12/12/21 16:32:00 EDT famotidine, Start: 12/12/21 21:00:00 EDT, Dose = 20 mg, = 1 tab(s), Oral, BID, 12/12/21 19:11:00 EDT melatonin, Start: 12/12/21 16:32:00 EDT,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 18 Ht 6' (1.829 m) Wt (!) 336 lb 7 oz (152.6 kg) SpO2 95% BMI 45.63 kg/m Temp Av F (36.7 C) Min: 97.9 F (36.6 C) Max: 98 F (36.7 C) Constitutional: The patient is awake, alert, and oriented. No distress. Oxygen by nasal cannula. Looks better Skin: Warm and dry. No rashes were noted. HEENT: Round and reactive pupils. Moist mucous membranes. No ulcerations or thrush. Neck: Supple to movements. Chest: No use of accessory muscles to breathe. Diminished right base c/w effusion. Crackles left base Cardiovascular: S1 and S2 are rhythmic and regular. No murmurs appreciated. Abdomen: Positive bowel sounds to auscultation. Soft, nontender. Extremities: No clubbing, no cyanosis, no edema b/l LEs Lines: peripheral Laboratory and Tests Review: Lab Results Component Value Date WBC 13.3 (H) 05/07/2019 WBC 9.6 05/06/2019 WBC 10.7 05/05/2019 HGB 11.3 (L) 05/07/2019 HCT 40.4 05/07/2019 MCV 72.8 (L) 05/07/2019 PLT 431 05/07/2019 Lab Results Component Value Date NEUTROABS 10.66 (H) 05/07/2019 NEUTROABS 7.07 05/06/2019 NEUTROABS 8.18 (H) 05/05/2019 No results found for: CRP Lab Results Component Value Date ALT 9 01/18/2019 AST 10 01/18/2019 ALKPHOS 62 01/18/2019 BILITOT <0.2 01/18/2019 Lab Results Component Value Date NA 139 05/07/2019 K 4.4 05/07/2019 CL 96 05/07/2019 CO2 31 05/07/2019 BUN 12 05/07/2019 CREATININE 0.6 05/07/2019 CREATININE 0.6 05/06/2019 CREATININE 0.6 05/05/2019 GFRAA >60 05/07/2019 LABGLOM >60 05/07/2019 GLUCOSE 146 05/07/2019 PROT 5.5 01/18/2019 LABALBU 3.8 01/18/2019 CALCIUM 9.2 05/07/2019 BILITOT <0.2 01/18/2019 ALKPHOS 62 01/18/2019 AST 10 01/18/2019 ALT 9 01/18/2019 Lab Results Component Value Date CRP 12.1 (H) 02/24/2019 CRP 7.5 (H) 01/15/2019 Lab Results Component Value Date SEDRATE 25 (H) 02/24/2019 Radiology: Microbiology: Streptococcus pneumoniae/Legionella urine Ag: negative Respiratory panel: Negative Respiratory culture: reduced oral jed Influenza by PCR: Negative ASSESSMENT: Common variable immune deficiency. Tolerated IgA depleted IVIG - received 05/03 IgA, IgM, IgG and IgE deficiency Possible recurrent pneumonia Right-sided pleural effusion. Being followed by pulmonary PLAN: Continue oral Doxycycline and Levofloxacin. Reconciled Continue oral Acyclovir prophylaxis Patient will require IgA depleted IVIG once a month F/u as outpt. Can be discharged from ID perspective On O2 at home. Additional diuretic given per pulmonary Sima Villalobos 12:19 PM 05/07/2019 Patient seen and examined. I had a face to face encounter with the patient. Agree with exam. Assessment and plan as outlined above and directed by me. Addition and corrections were done as deemed appropriate. My exam and plan include: The patient is still in a dark room. She must have some degree of depression since she does not really move at all and is always lying in bed. She is tolerating antibiotics and these have been already reconciled. We still think she can be discharged home. She mustfollow-up in the office to see Dr. Diaz and continue IVIG infusions. Jermain Jaimes 05/07/2019 * Klaus Palacios MD - 05/07/2019 10:52 AM EST [facility] Progress Note Subjective: Cough and dyspnea improved Complains of bilateral headache with coughing Past medical, surgical, family and social history were reviewed, non- contributory, and unchanged unless otherwise stated. Objective: BP 113/67 Pulse 70 Temp 98 F (36.7 C) (Oral) Resp 18 Ht 6' (1.829 m) Wt (!) 336 lb 7 oz (152.6 kg) SpO2 95% BMI 45.63 kg/m Exam is as noted by resident with the following changes, additions or corrections: Alert no distress Exam as per resident's note Assessment: Active Hospital Problems Diagnosis Date Noted Acute respiratory failure with hypoxia (HCC) [J96.01] HCAP (healthcare-associated pneumonia) [J18.9] 05/01/2019 Common variable immunodeficiency (HCC) [D83.9] 02/21/2019 Depression [F32.9] Persistent asthma with acute exacerbation [J45.901] Iron deficiency anemia [D50.9] 06/17/2018 Plan: Discharge home Follow up with PCP Patient fully informed. Attending Physician Statement I have reviewed the chart, including any radiology or labs, and have seen the patient with the resident(s). I personally reviewed and performed abbott elements of the history and exam. I agree with the assessment, plan and orders as documented by the resident. Please refer to the resident note for additional information. * Yessy Douglas MD - 05/07/2019 10:42 AM EST [facility] Progress Note Chief complaint : Chief Complaint Patient presents with Shortness of Breath Subjective: Patient describes she feels bit better than yesterday. Still has headache and is getting tylenol. Denies chest pain, palpitations, or dyspnea. No abdominal pain, nausea, vomiting or diarrhea. Denies dysuria and melena.Tolerating diet without difficulty. Objective: Vitals: 05/07/19 0753 BP: 113/67 Pulse: 70 Resp: 18 Temp: 98 F (36.7 C) SpO2: 95% General: Awake, alert, oriented X 3, laying in bed with nasal cannula Heart: RRR, no murmurs, gallops, or rubs Lungs: CTA bilaterally but decreased with coarse breathing and crackles on the bases Abdomen: Bowel sounds present, soft, nontender, no masses, no organomegaly, no peritoneal signs Extremities: No clubbing, cyanosis, or edema Skin: Warm and dry, no open lesions or rash. Labs: Recent Results (from the past 12 hour(s)) Basic Metabolic Panel w/ Reflex to MG Collection Time: 05/07/19 5:00 AM Result Value Ref Range Sodium 139 132 - 146 mmol/L Potassium reflex Magnesium 4.4 3.5 - 5.0 mmol/L Chloride 96 (L) 98 - 107 mmol/L CO2 31 (H) 22 - 29 mmol/L Anion Gap 12 7 - 16 mmol/L Glucose 146 (H) 74 - 99 mg/dL BUN 12 6 - 20 mg/dL CREATININE 0.6 0.5 - 1.0 mg/dL GFR Non- >60 >=60 mL/min/1.73 GFR >60 Calcium 9.2 8.6 - 10.2 mg/dL CBC auto differential Collection Time: 05/07/19 5:00 AM Result Value Ref Range WBC 13.3 (H) 4.5 - 11.5 E9/L RBC 5.55 (H) 3.50 - 5.50 E12/L Hemoglobin 11.3 (L) 11.5 - 15.5 g/dL Hematocrit 40.4 34.0 - 48.0 % MCV 72.8 (L) 80.0 - 99.9 fL MCH 20.4 (L) 26.0 - 35.0 pg MCHC 28.0 (L) 32.0 - 34.5 % RDW 17.8 (H) 11.5 - 15.0 fL Platelets 431 130 - 450 E9/L MPV 9.8 7.0 - 12.0 fL Neutrophils % 80.3 (H) 43.0 - 80.0 % Immature Granulocytes % 2.0 0.0 - 5.0 % Lymphocytes % 13.4 (L) 20.0 - 42.0 % Monocytes % 4.1 2.0 - 12.0 % Eosinophils % 0.0 0.0 - 6.0 % Basophils % 0.2 0.0 - 2.0 % Neutrophils Absolute 10.66 (H) 1.80 - 7.30 E9/L Immature Granulocytes # 0.26 E9/L Lymphocytes Absolute 1.77 1.50 - 4.00 E9/L Monocytes Absolute 0.54 0.10 - 0.95 E9/L Eosinophils Absolute 0.00 (L) 0.05 - 0.50 E9/L Basophils Absolute 0.02 0.00 - 0.20 E9/L Anisocytosis 1+ Hypochromia 1+ Poikilocytes 1+ Ovalocytes 1+ Assessment/Plan: Pneumonia - SOB improving, on 4 L O2 via nasal cannula now - DuoNeb tx q4h while awake - consulted Pulmonology - aerosols and steroids IV 40 mg BID - consulted ID - oral doxycycline 100 mg BID and levofloxacin 750 mg daily Persistent asthma with acute exacerbation - on duonebs, dulera, and singulair - Currently requiring high flow oxygen and Bipap on and off throughout the day Common Variable Immunodeficiency CVID - consulted ID - Immunoglobulin Given as per ID recommendation->received IgA depleted IVIG (05/03/19) - on acyclovir 400 mg BID prophylaxis DVT ppx: refusing lovenox Code: FULL Diet: general Disposition: patient oxygen requirement back to baseline. Will discuss with pulmonology and ID to see if patient could be discharged today. * Alka Marino RCP - 05/07/2019 12:05 AM EST Pt refusing bipap for the night will call if she changes her mind Alka Gayle * Alexis Lau PT - 05/06/2019 12:50 PM EST Physical Therapy Facility/Department: [address] MED SURG/TELE Initial Assessment NAME: Torrie Martinez : 1990 Date of Service: 05/06/2019 Evaluating Therapist: Alexis Lau Jr., P.T. Room #: 0526/0526-A DIAGNOSIS: pneumonia PRECAUTIONS: none Social: Pt lives with her friend and 5 children (2 are hers) in a 2 floor plan 5-6 steps and 1 railto enter and 12 steps with 1 rail to second floor bed and bath. Prior to admission pt walked with no AD and uses 4-5L home O2 Initial Evaluation Date: 05/06/19 Was pt agreeable to Eval/treatment? yes Does pt have pain? No c/o pain Bed Mobility Rolling: Independent Supine to sit: Independent Sit to supine: Independent Scooting: Independent Transfers Sit to stand: Independent Stand to sit: Independent Stand pivot: Independent Ambulation 350 feet with no AD Independent Stair negotiation: ascended and descended NA AM-PAC Raw Score 24/24 Pt is alert and Oriented x4 BLE ROM is WFL. BLE strength is grossly 5/5. Balance: Independent Sensation: No c/o numbness or tingling. Edema: none noted Endurance: good ASSESSMENT Pt displays functional ability as noted in the objective portion of this evaluation. Comments/Treatment: Pt is Independent with functional mobility at this time and has no skilled PT needs. Pt was on 6L O2 and O2 sat lying in bed was 92%. After amb she had no SOB and O2 sat was 95%. Hr was 140's after amb, but after 1 min was down to 104 bpm. Pt was left in bed per her request with call light in reach. Pt s/ family goals 1. To breathe better. Patient and or family understand(s) diagnosis, prognosis, and plan of care. PLAN PT will discharge pt from our service at this time. Time in: 12:30 Time out: 12:45 Alexis Lau Jr., P.T. License number: [id number] * Jermain Jaimes MD - 05/06/2019 11:34 AM EST [facility] Progress Note SUBJECTIVE: Chief Complaint Patient presents with Shortness of Breath Breathing little better, feeling little better. + productive cough, green sputum. No fevers. No n/v/d She is tolerating oral antibiotics. Review of systems: As stated above in the chief complaint, otherwise negative. Medications: Scheduled Meds: methylPREDNISolone 40 mg Intravenous Q12H doxycycline hyclate 100 mg Oral 2 times per day levofloxacin 750 mg Oral Daily methylPREDNISolone 100 mg Intravenous See Admin Instructions diphenhydrAMINE 50 mg Intravenous See Admin Instructions acyclovir 400 mg Oral BID cetirizine 10 mg Oral Daily famotidine 20 mg Oral BID ferrous sulfate 325 mg Oral Daily with breakfast fluticasone 1 spray Each Nostril Daily mometasone-formoterol 2 puff Inhalation BID montelukast 10 mg Oral Nightly sertraline 100 mg Oral Daily sodium chloride flush 10 mL Intravenous 2 times per day enoxaparin 40 mg Subcutaneous Daily ipratropium-albuterol 1 ampule Inhalation Q4H WA Continuous Infusions: PRN Meds:ibuprofen, albuterol, sodium chloride flush, magnesium hydroxide, ondansetron, acetaminophen OBJECTIVE: BP (!) 123/59 Pulse 60 Temp 97.9 F (36.6 C) (Oral) Resp 18 Ht 6' (1.829 m) Wt (!) 335 lb 7 oz (152.2 kg) SpO2 96% BMI 45.49 kg/m Temp Av.4 F (36.9 C) Min: 97.9 F (36.6 C) Max: 98.8 F (37.1 C) Constitutional: The patient is awake, alert, and oriented. No distress. Oxygen by nasal cannula. Looks better Skin: Warm and dry. No rashes were noted. HEENT: Round and reactive pupils. Moist mucous membranes. No ulcerations or thrush. Neck: Supple to movements. Chest: No use of accessory muscles to breathe. Diminished right base c/w effusion. Few crackles left base Cardiovascular: S1 and S2 are rhythmic and regular. No murmurs appreciated. Abdomen: Positive bowel sounds to auscultation. Soft, nontender. Extremities: No clubbing, no cyanosis, no edema b/l LEs Lines: peripheral Laboratory and Tests Review: Lab Results Component Value Date WBC 9.6 05/06/2019 WBC 10.7 05/05/2019 WBC 10.9 05/04/2019 HGB 9.6 (L) 05/06/2019 HCT 35.1 05/06/2019 MCV 74.4 (L) 05/06/2019 PLT 345 05/06/2019 Lab Results Component Value Date NEUTROABS 7.07 05/06/2019 NEUTROABS 8.18 (H) 05/05/2019 NEUTROABS 9.45 (H) 05/04/2019 No results found for: [facility] Lab Results Component Value Date ALT 9 01/18/2019 AST 10 01/18/2019 ALKPHOS 62 01/18/2019 BILITOT <0.2 01/18/2019 Lab Results Component Value Date NA 140 05/06/2019 K 4.3 05/06/2019 CL 99 05/06/2019 CO2 31 05/06/2019 BUN 9 05/06/2019 CREATININE 0.6 05/06/2019 CREATININE 0.6 05/05/2019 CREATININE 0.6 05/04/2019 GFRAA >60 05/06/2019 LABGLOM >60 05/06/2019 GLUCOSE 97 05/06/2019 PROT 5.5 01/18/2019 LABALBU 3.8 01/18/2019 CALCIUM 8.8 05/06/2019 BILITOT <0.2 01/18/2019 ALKPHOS 62 01/18/2019 AST 10 01/18/2019 ALT 9 01/18/2019 Lab Results Component Value Date CRP 12.1 (H) 02/24/2019 CRP 7.5 (H) 01/15/2019 Lab Results Component Value Date SEDRATE 25 (H) 02/24/2019 Radiology: Microbiology: Streptococcus pneumoniae/Legionella urine Ag: negative Respiratory panel: Negative Respiratory culture: reduced oral jed Influenza by PCR: Negative ASSESSMENT: Common variable immune deficiency. Tolerated IgA depleted IVIG - received 05/03 IgA, IgM, IgG and IgE deficiency Possible recurrent pneumonia Right-sided pleural effusion. Being followed by pulmonary PLAN: Continue oral Doxycycline and Levofloxacin. Reconciled Continue oral Acyclovir prophylaxis Patient will require IgA depleted IVIG once a month On O2 at home. Additional diuretic given per pulmonary August Alysia Villalobos 11:34 AM 05/06/2019 Patient seen and examined. I had a face to face encounter with the patient. Agree with exam. Assessment and plan as outlined above and directed by me. Addition and corrections were done as deemed appropriate. My exam and plan include: The patient is feeling slightly better. She is still lying in bed in a dark room. She does wear oxygen at home normally. She is tolerating the antibiotics. She has been told that she is going to be released later on today. Altogether she has made some clinical improvement and I think she can be discharged. The antibiotics have been reconciled. She is to follow-up with us in the office since she will need IgA depleted IVIG once a month. Jermain Jaimes 05/06/2019 * Zach Valdez, [employer] - 05/06/2019 10:12 AM EST Pulmonary Progress Note Admit Date: 05/01/2019 PCP: Sandee Hoyt MD Principal Problem: HCAP (healthcare-associated pneumonia) Active Problems: Persistent asthma with acute exacerbation Depression Common variable immunodeficiency (HCC) Iron deficiency anemia Acute respiratory failure with hypoxia (HCC) Resolved Problems: * No resolved hospital problems. * Subjective: Patient is sleeping in bed upon arrival to room, c/o productive cough with green sputum. Reports she is on 4L of O2 at home which she is currently on. Patient states she did not wear bipap last nightbecause she was up using the bathroom multiple times last night. Medications: methylPREDNISolone 40 mg Intravenous Q12H doxycycline hyclate 100 mg Oral 2 times per day levofloxacin 750 mg Oral Daily methylPREDNISolone 100 mg Intravenous See Admin Instructions diphenhydrAMINE 50 mg Intravenous See Admin Instructions acyclovir 400 mg Oral BID cetirizine 10 mg Oral Daily famotidine 20 mg Oral BID ferrous sulfate 325 mg Oral Daily with breakfast fluticasone 1 spray Each Nostril Daily mometasone-formoterol 2 puff Inhalation BID montelukast 10 mg Oral Nightly sertraline 100 mg Oral Daily sodium chloride flush 10 mL Intravenous 2 times per day enoxaparin 40 mg Subcutaneous Daily ipratropium-albuterol 1 ampule Inhalation Q4H WA Vitals: VITALS: BP (!) 123/59 Pulse 60 Temp 97.9 F (36.6 C) (Oral) Resp 18 Ht 6' (1.829 m) Wt (!)335 lb 7 oz (152.2 kg) SpO2 96% BMI 45.49 kg/m 24HR INTAKE/OUTPUT: Intake/Output Summary (Last 24 hours) at 05/06/2019 1013 Last data filed at 05/05/2019 1306 Gross per 24 hour Intake 1986.25 ml Output Net 1986.25 ml CURRENT PULSE OXIMETRY: SpO2: 96 % 24HR PULSE OXIMETRY RANGE: SpO2 Av.3 % Min: 93 % Max: 96 % CVP: VENT SETTINGS: Vent Information Skin Assessment: Clean, dry, & intact FiO2 : 50 % I Time/ I Time %: 1 s Additional Respiratory Assessments Pulse: 60 Resp: 18 SpO2: 96 % EXAM: General: Alert, in NAD ENT: No discharge. Pharynx clear. membranes moist Neck: Supple, Trachea midline. Resp: No accessory muscle use. Non-labored. Lungs with rales throughout A and P all pittman and expiratory wheezing. CV: Regular rate. Regular rhythm. No murmur . No edema. ABD: Non-tender. Non-distended. Soft, round . Normal bowel sounds. Skin: Warm and dry. M/S: No cyanosis. No joint deformity. No clubbing. Neuro: Awake. Follows commands. O x 3, LUI Psych: calm and interactive I/O: I/O last 3 completed shifts: In: 1985.3 [I.V.:1985.3] Out: - No intake/output data recorded. Results: CBC: Recent Labs 05/04/19 0350 05/05/19 0529 05/06/19 0436 WBC 10.9 10.7 9.6 HGB 9.0* 8.7* 9.6* HCT 33.0* 32.1* 35.1 MCV 75.0* 75.4* 74.4* PLT 328 318 345 BMP: Recent Labs 05/04/19 0350 05/05/19 0529 05/06/19 0436 NA 138 141 140 K 4.3 4.5 4.3 CL 97* 100 99 CO2 33* 34* 31* BUN 7 8 9 CREATININE 0.6 0.6 0.6 LFT: No results for input(s): ALKPHOS, ALT, AST, PROT, BILITOT, BILIDIR, LABALBU in the last 72 hours. PT/INR: No results for input(s): PROTIME, INR in the last 72 hours. Procalcitonin: Results for TORRIE MARTINEZ ( ) as of 05/06/2019 10:16 Ref. Range 05/01/2019 18:01 Procalcitonin Latest Ref Range: 0.00 - 0.08 ng/mL 0.18 (H) Results for TORRIE MARTINEZ ( ) as of 05/06/2019 10:16 Ref. Range 05/01/2019 12:36 Pro-BNP Latest Ref Range: 0 - 125 pg/mL 219 (H) Cultures: Respiratory panel negative. Influenza A and B negative. Legionella and strep antigen negative. Specimen Information: Sputum Expectorated Component Collected Lab CULTURE, RESPIRATORY 05/02/2019 11:26 PM [facility] Oral Pharyngeal Jed present Smear, Respiratory 05/02/2019 11:26 PM [facility] Group 5: >25 PMN's/LPF and <10 Epithelial cells/LPF Moderate Polymorphonuclear leukocytes Rare Epithelial cells Rare Gram positive diplococci Rare Gram negative diplococci Rare Gram negative rods ABG: Results for TORRIE MARTINEZ ( ) as of 05/06/2019 10:16 Ref. Range 05/01/2019 13:08 Source: Unknown Blood Arterial pH, Blood Gas Latest Ref Range: 7.350 - 7.450 7.372 PCO2 Latest Ref Range: 35.0 - 45.0 mmHg 61.7 (H) pO2 Latest Ref Range: 60.0 - 100.0 mmHg 55.0 (L) HCO3 Latest Ref Range: 22.0 - 26.0 mmol/L 35.0 (H) Base Excess Latest Ref Range: -3.0 - 3.0 mmol/L 8.1 (H) O2 Sat Latest Ref Range: 92.0 - 98.5 % 87.1 (L) tHb (est) Latest Ref Range: 11.5 - 16.5 g/dL 11.1 (L) O2Hb Latest Ref Range: 94.0 - 97.0 % 86.1 (L) COHb Latest Ref Range: 0.0 - 1.5 % 0.7 MetHb Latest Ref Range: 0.0 - 1.5 % 0.5 HHb Latest Ref Range: 0.0 - 5.0 % 12.7 (H) O2 Content Latest Units: mL/dL 13.5 Pt Temp Latest Units: C 37.0 Critical(s) Notified Unknown . No Critical Values Time Analyzed Unknown 1308 Mode Unknown NC- 6L Films: Xr Chest Portable Result Date: 05/01/2019 Patient : 1990 Age: 29 years Gender: Female Order Date: 05/01/2019 12:30 PM EXAM: XR CHEST PORTABLE one image INDICATION: shortness of breath, cough, congestion shortness of breath, cough, congestion COMPARISON: 04/01/2019 FINDINGS: There is borderline cardiac size. There is patchy perihilar and bibasilar infiltrates and pleural effusions, right more than left. Patchy perihilar and bibasilar infiltrates and pleural effusions which may be due to pneumonia or CHF. 05/01/19 04/01/19 Assessment: 1.) Acute Exacerbation of Asthma with Recurrent Pneumonia - BIPAP 15/6, rate 12, FiO2 50% 2.) Common Variable Immune Deficiency 3.) Acute on Chronic Hypoxic and Hypercapnic Respiratory Failure - on 4L n/c since Apr 2018 (pneumonia at that time) 4.) Right Pleural effusion 5.) Obesity 6.) Vitiligo Plan: Keep POX 90-95%, currently on 4L o2 which is baseline. Continue bipap qHS and PRN, pCO2 61.7 Continue nebs, dulera, duoneb, and albuterol Continue levaquin and doxycycline per ID Continue IV steroids at q12h, still with wheezing Did receive IVIG per ID and acyclovir PRN Continue singulair and flonase Sputum cx sent, sensitivity pending New right pleural effusion on CXR since last admission, patient sounds wet with rales throughout. Creatinine 0.6, Pro-BNP 219, will give 1 dose of Lasix 40mg IV * Klaus Palacios MD - 05/06/2019 9:53 AM EST [facility] Progress Note Subjective: Cough and dyspnea slowly improving. Past medical, surgical, family and social history were reviewed, non- contributory, and unchanged unless otherwise stated. Objective: BP (!) 123/59 Pulse 60 Temp 97.9 F (36.6 C) (Oral) Resp 18 Ht 6' (1.829 m) Wt (!) 335 lb 7 oz (152.2 kg) SpO2 96% BMI 45.49 kg/m Exam is as noted by resident with the following changes, additions or corrections: Alert no distress Exam as per resident's note. Assessment: Active Hospital Problems Diagnosis Date Noted Acute respiratory failure with hypoxia (HCC) [J96.01] HCAP (healthcare-associated pneumonia) [J18.9] 05/01/2019 Common variable immunodeficiency (HCC) [D83.9] 02/21/2019 Depression [F32.9] Persistent asthma with acute exacerbation [J45.901] Iron deficiency anemia [D50.9] 06/17/2018 Plan: Continue same Monitor. Attending Physician Statement I have discussed the case, including pertinent history and exam findings with the resident. I also have seen the patient and performed abbott portions of the examination. I agree with the documented assessment and plan. Attending Physician Statement I have reviewed the chart, including any radiology or labs, and have seen the patient with the resident(s). I personally reviewed and performed abbott elements of the history and exam. I agree with the assessment, plan and orders as documented by the resident. Please refer to the resident note for additional information. * Yessy Douglas MD - 05/06/2019 4:45 AM EST [facility] Progress Note Chief complaint : Chief Complaint Patient presents with Shortness of Breath Subjective: Patient describes feels about the same as yesterday. States that SOB continues to improve since admission and still has productive cough with green sputum. Denies chest pain, palpitations, or dyspnea. No abdominal pain, nausea, vomiting or diarrhea. Denies dysuria and melena.Tolerating diet withoutdifficulty. Objective: Vitals: 05/06/19 0728 BP: (!) 123/59 Pulse: 60 Resp: 18 Temp: 97.9 F (36.6 C) SpO2: 96% General: Awake, alert, oriented X 3, laying in bed with nasal cannula Heart: RRR, no murmurs, gallops, or rubs Lungs: CTA bilaterally but decreased with coarse breathing and crackles on the bases Abdomen: Bowel sounds present, soft, nontender, no masses, no organomegaly, no peritoneal signs Extremities: No clubbing, cyanosis, or edema Skin: Warm and dry, no open lesions or rash. Labs: Recent Results (from the past 12 hour(s)) Basic Metabolic Panel w/ Reflex to MG Collection Time: 05/06/19 4:36 AM Result Value Ref Range Sodium 140 132 - 146 mmol/L Potassium reflex Magnesium 4.3 3.5 - 5.0 mmol/L Chloride 99 98 - 107 mmol/L CO2 31 (H) 22 - 29 mmol/L Anion Gap 10 7 - 16 mmol/L Glucose 97 74 - 99 mg/dL BUN 9 6 - 20 mg/dL CREATININE 0.6 0.5 - 1.0 mg/dL GFR Non- >60 >=60 mL/min/1.73 GFR >60 Calcium 8.8 8.6 - 10.2 mg/dL CBC auto differential Collection Time: 05/06/19 4:36 AM Result Value Ref Range WBC 9.6 4.5 - 11.5 E9/L RBC 4.72 3.50 - 5.50 E12/L Hemoglobin 9.6 (L) 11.5 - 15.5 g/dL Hematocrit 35.1 34.0 - 48.0 % MCV 74.4 (L) 80.0 - 99.9 fL MCH 20.3 (L) 26.0 - 35.0 pg MCHC 27.4 (L) 32.0 - 34.5 % RDW 17.8 (H) 11.5 - 15.0 fL Platelets 345 130 - 450 E9/L MPV 9.7 7.0 - 12.0 fL Neutrophils % 73.6 43.0 - 80.0 % Immature Granulocytes % 2.2 0.0 - 5.0 % Lymphocytes % 16.8 (L) 20.0 - 42.0 % Monocytes % 7.3 2.0 - 12.0 % Eosinophils % 0.0 0.0 - 6.0 % Basophils % 0.1 0.0 - 2.0 % Neutrophils Absolute 7.07 1.80 - 7.30 E9/L Immature Granulocytes # 0.21 E9/L Lymphocytes Absolute 1.61 1.50 - 4.00 E9/L Monocytes Absolute 0.70 0.10 - 0.95 E9/L Eosinophils Absolute 0.00 (L) 0.05 - 0.50 E9/L Basophils Absolute 0.01 0.00 - 0.20 E9/L Anisocytosis 1+ Polychromasia 1+ Poikilocytes 1+ Ovalocytes 1+ Tear Drop Cells 1+ Assessment/Plan: Pneumonia - SOB improving, on 4 L O2 via nasal cannula now - DuoNeb tx q4h while awake - consulted Pulmonology - aerosols and steroids IV 40 mg BID - consulted ID - oral doxycycline 100 mg BID and levofloxacin 750 mg daily Persistent asthma with acute exacerbation - on duonebs, dulera, and singulair - Currently requiring high flow oxygen and Bipap on and off throughout the day Common Variable Immunodeficiency CVID - consulted ID - Immunoglobulin Given as per ID recommendation->received IgA depleted IVIG (05/03/19) - on acyclovir 400 mg BID prophylaxis DVT ppx: refusing lovenox Code: FULL Diet: general Disposition: patient still requiring oxygen, however is close to baseline, will discuss with pulmonology and ID to see if patient could be discharged today. * Jermain Jaimes MD - 05/05/2019 11:14 AM EST [facility] Progress Note SUBJECTIVE: Chief Complaint Patient presents with Shortness of Breath Breathing little better. + productive cough, green sputum. Pain right chest with cough. No fevers. No n/v/d She is tolerating oral antibiotics. Review of systems: As stated above in the chief complaint, otherwise negative. Medications: Scheduled Meds: methylPREDNISolone 40 mg Intravenous Q12H doxycycline hyclate 100 mg Oral 2 times per day levofloxacin 750 mg Oral Daily methylPREDNISolone 100 mg Intravenous See Admin Instructions diphenhydrAMINE 50 mg Intravenous See Admin Instructions acyclovir 400 mg Oral BID cetirizine 10 mg Oral Daily famotidine 20 mg Oral BID ferrous sulfate 325 mg Oral Daily with breakfast fluticasone 1 spray Each Nostril Daily mometasone-formoterol 2 puff Inhalation BID montelukast 10 mg Oral Nightly sertraline 100 mg Oral Daily sodium chloride flush 10 mL Intravenous 2 times per day enoxaparin 40 mg Subcutaneous Daily ipratropium-albuterol 1 ampule Inhalation Q4H WA Continuous Infusions: sodium chloride 75 mL/hr at 05/04/19 2330 PRN Meds:ibuprofen, albuterol, sodium chloride flush, magnesium hydroxide, ondansetron, acetaminophen OBJECTIVE: BP 128/77 Pulse 70 Temp 97.9 F (36.6 C) (Oral) Resp 20 Ht 6' (1.829 m) Wt (!) 335 lb 7 oz(152.2 kg) SpO2 93% BMI 45.49 kg/m Temp Av.1 F (36.7 C) Min: 97.9 F (36.6 C) Max: 98.2 F (36.8 C) Constitutional: The patient is awake, alert, and oriented. No distress. Oxygen by nasal cannula. Skin: Warm and dry. No rashes were noted. HEENT: Round and reactive pupils. Moist mucous membranes. No ulcerations or thrush. Neck: Supple to movements. Chest: No use of accessory muscles to breathe. Diminished right base c/w effusion. Few crackles left base Cardiovascular: S1 and S2 are rhythmic and regular. No murmurs appreciated. Abdomen: Positive bowel sounds to auscultation. Soft, nontender. Extremities: No clubbing, no cyanosis, no edema b/l LEs Lines: peripheral Laboratory and Tests Review: Lab Results Component Value Date WBC 10.7 05/05/2019 WBC 10.9 05/04/2019 WBC 8.7 05/03/2019 HGB 8.7 (L) 05/05/2019 HCT 32.1 (L) 05/05/2019 MCV 75.4 (L) 05/05/2019 PLT 318 05/05/2019 Lab Results Component Value Date NEUTROABS 8.18 (H) 05/05/2019 NEUTROABS 9.45 (H) 05/04/2019 NEUTROABS 6.29 05/03/2019 No results found for: [facility] Lab Results Component Value Date ALT 9 01/18/2019 AST 10 01/18/2019 ALKPHOS 62 01/18/2019 BILITOT <0.2 01/18/2019 Lab Results Component Value Date NA 141 05/05/2019 K 4.5 05/05/2019 CL 100 05/05/2019 CO2 34 05/05/2019 BUN 8 05/05/2019 CREATININE 0.6 05/05/2019 CREATININE 0.6 05/04/2019 CREATININE 0.6 05/03/2019 GFRAA >60 05/05/2019 LABGLOM >60 05/05/2019 GLUCOSE 109 05/05/2019 PROT 5.5 01/18/2019 LABALBU 3.8 01/18/2019 CALCIUM 8.6 05/05/2019 BILITOT <0.2 01/18/2019 ALKPHOS 62 01/18/2019 AST 10 01/18/2019 ALT 9 01/18/2019 Lab Results Component Value Date CRP 12.1 (H) 02/24/2019 CRP 7.5 (H) 01/15/2019 Lab Results Component Value Date SEDRATE 25 (H) 02/24/2019 Radiology: Microbiology: Streptococcus pneumoniae/Legionella urine Ag: negative Respiratory panel: Negative Respiratory culture: reduced oral jed Influenza by PCR: Negative ASSESSMENT: Common variable immune deficiency. Tolerated IgA depleted IVIG - received 05/03 IgA, IgM, IgG and IgE deficiency Possible recurrent pneumonia Right-sided pleural effusion. Being followed by pulmonary PLAN: Continue oral Doxycycline and Levofloxacin. Reconciled Continue oral Acyclovir prophylaxis Patient will require IgA depleted IVIG once a month August Alysia Villalobos 11:14 AM 05/05/2019 Patient seen and examined. I had a face to face encounter with the patient. Agree with exam. Assessment and plan as outlined above and directed by me. Addition and corrections were done as deemed appropriate. My exam and plan include: The patient seems to be making very slow improvement. She still lying in a dark room. She says that she is still feeling somewhat ill. She still requiring oxygen. Still coughing but not producing much sputum. No crackles on physical exam. We will continue oral antibiotics until the end of this week. She can be discharged when she is not requiring oxygen. Jermain Jaimes 05/05/2019 * Torrie Campbell - 05/05/2019 7:46 AM EST Subjective: Patient was assessed this morning at bedside where she stated that she continues to improve but is still not feeling at baseline. No acute overnight events. Tolerating oral abx well. Still c/o productive cough with green sputum. No new concerns at this time. Denies chest pain, angina, and dyspnea. Denies abdominal pain. Past ROS, medical, surgical, family and social history were reviewed, non- contributory, and unchanged unless otherwise stated. Objective: General: No acute distress, resting comfortably in bed. HEENT: No conjunctival injection, Eye movements intact. EAC clear. No rhinorrhea. Heart: RRR, no murmurs, gallops, or rubs. Lungs: CTA bilaterally, faint wheezes deya, coarse breath sounds lower lung bases, prolonged end-expiratory phase Abd: bowel sounds present x4, nontender, nondistended, no masses MSK: No clubbing, cyanosis, or edema. Results Component Value Units CBC auto differential [[id number]] (Abnormal) Collected: 05/05/19528 Updated: 05/05/19657 Specimen Source: Blood WBC 10.7 E9/L RBC 4.26 E12/L Hemoglobin 8.7Low g/dL Hematocrit 32.1Low % MCV 75.4Low fL MCH 20.4Low pg MCHC 27.1Low % RDW 17.8High fL Platelets 318 E9/L MPV 9.9 fL Neutrophils % 76.3 % Immature Granulocytes % 1.6 % Lymphocytes % 15.5Low % Monocytes % 6.5 % Eosinophils % 0.0 % Basophils % 0.1 % Neutrophils Absolute 8.18High E9/L Immature Granulocytes # 0.17 E9/L Lymphocytes Absolute 1.66 E9/L Monocytes Absolute 0.70 E9/L Eosinophils Absolute 0.00Low E9/L Basophils Absolute 0.01 E9/L Anisocytosis 1+ Polychromasia 1+ Hypochromia 1+ Poikilocytes 1+ Ovalocytes 1+ Basic Metabolic Panel w/ Reflex to MG [[id number] Collected: 05/05/19528 Updated: 05/05/19627 Specimen Source: Blood Sodium 141 mmol/L Potassium reflex Magnesium 4.5 mmol/L Chloride 100 mmol/L CO2 34High mmol/L Anion Gap 7 mmol/L Glucose 109High mg/dL BUN 8 mg/dL CREATININE 0.6 mg/dL GFR Non- >60 mL/min/1.73 GFR >60 Calcium 8.6 mg/dL Assessment: Active Hospital Problems Diagnosis Date Noted Pneumonia [J18.9] 05/01/2019 Common variable immunodeficiency (HCC) [D83.9] 02/21/2019 Depression [F32.9] Persistent asthma with acute exacerbation [J45.901] Iron deficiency anemia [D50.9] 06/17/2018 Plan: 1. Pneumonia - 5L O2 via NC - back to baseline from home O2 - DuoNeb tx q4h while awake - consulted Pulm - aerosols as directed and IV steroids BID as baseline - consulted ID - oral doxycycline, oral levofloxacin, given IgA depleted IVIG 05/03 -acyclovir prophylaxis 2.Persistent asthma with acute exac - - duonebs and dulera plus oxygen. - high flow oxygen and occasional bipap FiO2 at 50% 3. Common Variable Immunodeficiency CVID - consulted ID - Immunoglobulin Given as per ID recommendation (05/03/19) DVT prophylaxis: Lovenox GI prophylaxis: Pepcid Code Status: Full code * Yessy Douglas MD - 05/05/2019 7:04 AM EST [facility] Progress Note Chief complaint : Chief Complaint Patient presents with Shortness of Breath Subjective: Patient describes feeling better than yesterday. States that SOB continues to improve since admission. Is still having dry cough with some productive ones. Feels more SOB when she ambulated to use restroom. Denies chest pain, palpitations, or dyspnea. No abdominal pain, nausea, vomiting or diarrhea. Denies dysuria and melena.Tolerating diet without difficulty. Objective: Vitals: 05/04/19 2316 BP: Pulse: Resp: 20 Temp: SpO2: General: Awake, alert, oriented X 3, laying in bed with nasal cannula Heart: RRR, no murmurs, gallops, or rubs Lungs: CTA bilaterally but decreased with coarse breathing throughout Abdomen: Bowel sounds present, soft, nontender, no masses, no organomegaly, no peritoneal signs Extremities: No clubbing, cyanosis, or edema Skin: Warm and dry, no open lesions or rash. Labs: Recent Results (from the past 12 hour(s)) Basic Metabolic Panel w/ Reflex to MG Collection Time: 05/05/19 5:29 AM Result Value Ref Range Sodium 141 132 - 146 mmol/L Potassium reflex Magnesium 4.5 3.5 - 5.0 mmol/L Chloride 100 98 - 107 mmol/L CO2 34 (H) 22 - 29 mmol/L Anion Gap 7 7 - 16 mmol/L Glucose 109 (H) 74 - 99 mg/dL BUN 8 6 - 20 mg/dL CREATININE 0.6 0.5 - 1.0 mg/dL GFR Non- >60 >=60 mL/min/1.73 GFR >60 Calcium 8.6 8.6 - 10.2 mg/dL CBC auto differential Collection Time: 05/05/19 5:29 AM Result Value Ref Range WBC 10.7 4.5 - 11.5 E9/L RBC 4.26 3.50 - 5.50 E12/L Hemoglobin 8.7 (L) 11.5 - 15.5 g/dL Hematocrit 32.1 (L) 34.0 - 48.0 % MCV 75.4 (L) 80.0 - 99.9 fL MCH 20.4 (L) 26.0 - 35.0 pg MCHC 27.1 (L) 32.0 - 34.5 % RDW 17.8 (H) 11.5 - 15.0 fL Platelets 318 130 - 450 E9/L MPV 9.9 7.0 - 12.0 fL Neutrophils % 76.3 43.0 - 80.0 % Immature Granulocytes % 1.6 0.0 - 5.0 % Lymphocytes % 15.5 (L) 20.0 - 42.0 % Monocytes % 6.5 2.0 - 12.0 % Eosinophils % 0.0 0.0 - 6.0 % Basophils % 0.1 0.0 - 2.0 % Neutrophils Absolute 8.18 (H) 1.80 - 7.30 E9/L Immature Granulocytes # 0.17 E9/L Lymphocytes Absolute 1.66 1.50 - 4.00 E9/L Monocytes Absolute 0.70 0.10 - 0.95 E9/L Eosinophils Absolute 0.00 (L) 0.05 - 0.50 E9/L Basophils Absolute 0.01 0.00 - 0.20 E9/L Anisocytosis 1+ Polychromasia 1+ Hypochromia 1+ Poikilocytes 1+ Ovalocytes 1+ Assessment/Plan: Pneumonia - SOB improving, on 5 L O2 via nasal cannula (at baseline) - DuoNeb tx q4h while awake - strep and legionella urine antigen negative - consulted Pulmonology - aerosols and steroids IV 40 mg BID - consulted ID - oral doxycycline 100 mg BID and levofloxacin 750 mg daily - on acyclovir 400 mg BID prophylaxis Persistent asthma with acute exacerbation - on duonebs, dulera, and singulair - Currently requiring high flow oxygen and Bipap on and off throughout the day Common Variable Immunodeficiency CVID - consulted ID - Immunoglobulin Given as per ID recommendation->received IgA depleted IVIG (05/03/19) DVT ppx: refusing lovenox Code: FULL Diet: general Associated attestation - Beni Tabor MD - 05/05/2019 11:01 AM EST Family Medicine Attending Physician Statement I have discussed the case, including pertinent history and exam findings with the resident. I also have seen and examined the patient. Thinks that she continues to improve. No acute issues overnight. Still short of breath, requiring oxygen. Oxygen requirements are back to baseline. Cough is still productive of green sputum. Reports subjective sweats but no chills or objective fevers. Does report some back discomfort from being in bed Relevant PFSH, ROS noted and confirmed per resident note. BP 128/77 Pulse 70 Temp 97.9 F (36.6 C) (Oral) Resp 20 Ht 6' (1.829 m) Wt (!) 335 lb 7 oz(152.2 kg) SpO2 93% BMI 45.49 kg/m Exam is as noted by resident with the following changes, additions or corrections: Gen Alert cooperative NAD CV: S1S2 RRR no murmur Resp prolongation of expiratory phase. No wheezes rales or rhonchi heard throughout the lung pittman. Equal air exchange GI soft NT/ND +bs Imp Common variable immunodeficiency Pneumonia Persisting asthma Chronic respiratory failure with hypoxia and requirements of oxygen Plan Continue current measures. Will discuss with specialist. Anticipate possible discharge within the next 24 hrs. Is on oral antibiotics, steroids can likely be converted soon to orals. Back to essentially a baseline level of oxygen requirements. Otherwise I agree with the resident's documented assessment and plan * Josefina Talavera RCP - 05/04/2019 11:17 PM EST Date: 05/04/2019 Time: 11:17 PM Patient Placed On BIPAP/CPAP/ Non-Invasive Ventilation? Yes If no must comment. Facial area red/color change? No If YES are Blister/Lesion present?No If yes must notify nursing staff BIPAP/CPAP skin barrier? Yes Skin barrier type:mepilex Comments: Josefina Talavera * Osman Mcnulty MD - 05/04/2019 2:16 PM EST [facility] PROGRESS NOTE Patient: Torrie Martinez : 1990 Encounter Date: 05/04/2019 Encounter Time: 2:16 PM Date of Admission: .05/01/2019 12:01 PM Consulting Physician: Primary Care Physician: Sandee Hoyt MD [phone] Reason for Consultation: Asthma Exacerbation, CVID Problem List: Patient Active Problem List Diagnosis Chronic asthma, moderate persistent, uncomplicated Gastroesophageal reflux disease without esophagitis Major depressive disorder Persistent asthma with acute exacerbation Depression Common variable immunodeficiency (HCC) Iron deficiency anemia MARCUS (generalized anxiety disorder) Pneumonia Acute respiratory failure with hypoxia (HCC) SUBJECTIVE: Patient seen and examined. Overnight the patient had no shortness of breath, cough, increased work of breathing. HOME MEDICATIONS: Prior to Admission medications Medication Sig Start Date End Date Taking? Authorizing Provider acyclovir (ZOVIRAX) 400 MG tablet Take 1 tablet by mouth 2 times daily 03/22/19 Historical Provider, INCJUDY ELLIPTA 62.5 MCG/INH AEPB inhale 1 puff by mouth and INTO THE LUNGS once daily 03/25/19 Sandee Hoyt MD montelukast (SINGULAIR) 10 MG tablet take 1 tablet by mouth every evening 03/25/19 Sandee Hoyt MD fluticasone-salmeterol (ADVAIR DISKUS) 250-50 MCG/DOSE AEPB Inhale 1 puff into the lungs 2 times daily Rinse mouth after use. 02/27/19 Sandee Hoyt MD famotidine (PEPCID) 20 MG tablet Take 1 tablet by mouth 2 times daily 02/07/19 06/07/19 Sandee Hoyt MD ferrous sulfate 325 (65 Fe) MG tablet Take 1 tablet by mouth daily (with breakfast) 02/07/19 06/07/19Sandee Hoyt MD fluticasone (FLONASE) 50 MCG/ACT nasal spray 1 spray by Each Nostril route daily 02/07/19 Sandee Hoyt MD Fluticasone furoate-vilanterol (BREO ELLIPTA) 200-25 MCG/INH AEPB inhaler Inhale 1 puff into the lungs daily 02/07/19 Sandee Hoyt MD sertraline (ZOLOFT) 100 MG tablet Take 1 tablet by mouth daily 02/07/19 06/07/19 Sandee Hoyt MD cetirizine (ZYRTEC) 10 MG tablet Take 1 tablet by mouth daily 02/07/19 Sandee Hoyt MD albuterol (PROVENTIL) (2.5 MG/3ML) 0.083% nebulizer solution Take 2.5 mg by nebulization every 6 hours as needed for Wheezing Historical Provider, Oxygen Concentrator Historical Provider, albuterol sulfate HFA 108 (90 Base) MCG/ACT inhaler Inhale 2 puffs into the lungs every 6 hours as needed for Wheezing Historical Provider, CURRENT MEDICATIONS: Current Facility-Administered Medications: methylPREDNISolone sodium (SOLU- MEDROL) injection 40 mg,40 mg, Intravenous, Q12H ibuprofen (ADVIL;MOTRIN) tablet 600 mg, 600 mg, Oral, Q6H PRN doxycycline hyclate (VIBRAMYCIN) capsule 100 mg, 100 mg, Oral, 2 times per day levofloxacin (LEVAQUIN) tablet 750 mg, 750 mg, Oral, Daily methylPREDNISolone sodium (SOLU-MEDROL) injection 100 mg, 100 mg, Intravenous, See Admin Instructions diphenhydrAMINE (BENADRYL) injection 50 mg, 50 mg, Intravenous, See Admin Instructions acyclovir (ZOVIRAX) capsule 400 mg, 400 mg, Oral, BID albuterol (PROVENTIL) nebulizer solution 2.5 mg, 2.5 mg, Nebulization, Q6H PRN cetirizine (ZYRTEC) tablet 10 mg, 10 mg, Oral, Daily famotidine (PEPCID) tablet 20 mg, 20 mg, Oral, BID ferrous sulfate tablet 325 mg, 325 mg, Oral, Daily with breakfast fluticasone (FLONASE) 50 MCG/ACT nasal spray 1 spray, 1 spray, Each Nostril, Daily mometasone-formoterol (DULERA) 200-5 MCG/ACT inhaler 2 puff, 2 puff, Inhalation, BID montelukast (SINGULAIR) tablet 10 mg, 10 mg, Oral, Nightly sertraline (ZOLOFT) tablet 100 mg, 100 mg, Oral, Daily sodium chloride flush 0.9 % injection 10 mL, 10 mL, Intravenous, 2 times per day sodium chloride flush 0.9 % injection 10 mL, 10 mL, Intravenous, PRN magnesium hydroxide (MILK OF MAGNESIA) 400 MG/5ML suspension 30 mL, 30 mL, Oral, Daily PRN ondansetron (ZOFRAN) injection 4 mg, 4 mg, Intravenous, Q6H PRN enoxaparin (LOVENOX) injection 40 mg, 40 mg, Subcutaneous, Daily 0.9 % sodium chloride infusion, , Intravenous, Continuous acetaminophen (TYLENOL) tablet 650 mg, 650 mg, Oral, Q4H PRN ipratropium-albuterol (DUONEB) nebulizer solution 1 ampule, 1 ampule, Inhalation, Q4H WA ALLERGIES: Allergies Allergen Reactions Flebogamma Dif [Immune Globulin (Human)] Nausea And Vomiting Elevated heart rate, chest pressure Seasonal Other (See Comments) Congestion REVIEW OF SYSTEMS: General ROS: Negative For: chills, fatigue, fever, malaise, night sweats or sleep disturbance ENT ROS: Negative For: epistaxis, headaches, sinus pain, sneezing or sore throat Respiratory ROS: Negative For: hemoptysis, pleuritic type chest pains Cardiovascular ROS: Negative For: chest pain, dyspnea on exertion, irregular heartbeat, loss of consciousness, murmur, orthopnea or palpitations Gastrointestinal ROS: Negative For: abdominal pain, appetite loss, blood in stools, change in bowelhabits, change in stools, constipation, diarrhea, hematemesis, melena, nausea/vomiting or stool incontinence OBJECTIVE: PHYSICAL EXAMINATION: VITAL SIGNS: BP 135/64 Pulse 100 Temp 98.5 F (36.9 C) (Oral) Resp 20 Ht 6' (1.829 m) Wt (!) 335 lb 7 oz (152.2 kg) SpO2 90% BMI 45.49 kg/m Wt Readings from Last 3 Encounters: 05/04/19 (!) 335 lb 7 oz (152.2 kg) 04/01/19 (!) 320 lb (145.2 kg) 03/19/19 (!) 340 lb (154.2 kg) Temp Readings from Last 3 Encounters: 05/04/19 98.5 F (36.9 C) (Oral) 04/01/19 99 F (37.2 C) (Oral) 03/19/19 98.8 F (37.1 C) (Oral) TMAX: BP Readings from Last 3 Encounters: 05/04/19 135/64 04/01/19 108/65 03/19/19 116/62 Pulse Readings from Last 3 Encounters: 05/04/19 100 04/01/19 98 03/19/19 100 CURRENT PULSE OXIMETRY: SpO2: 90 % 24HR PULSE OXIMETRY RANGE: SpO2 Av % Min: 90 % Max: 92 % CVP: VENTILATOR SETTINGS (if applicable): Vent Information Skin Assessment: Clean, dry, & intact FiO2 : 50 % I Time/ I Time %: 1 s Additional Respiratory Assessments Pulse: 100 Resp: 20 SpO2: 90 % ETCO2: Peak Inspiratory Pressure: End-Inspiratory Plateau Pressure: ABG: No results for input(s): PH, PO2, PCO2, HCO3, BE, O2SAT, METHB, O2HB, COHB, O2CON, HHB, THB in the last 72 hours. FiO2 : 50 % IV ACCESS: NUTRITION: DIET GENERAL; INTAKE/OUTPUTS: I/O last 3 completed shifts: In: 1336 [I.V.:1336] Out: - Intake/Output Summary (Last 24 hours) at 05/04/2019 1416 Last data filed at 05/04/2019 1037 Gross per 24 hour Intake 1150 ml Output Net 1150 ml General Appearance: alert and oriented to person, place and time, well-developed and well-nourished, in no acute distress Eyes: pupils equal, round, and reactive to light, extraocular eye movements intact, conjunctivae normal and sclera anicteric Neck: neck supple and non tender without mass, no thyromegaly, no thyroid nodules and no cervical adenopathy Pulmonary/Chest: decreased breath sounds at bases, no accessory muscles of inspiration noted Cardiovascular: normal rate, regular rhythm, normal S1 and S2, no murmurs, rubs, clicks or gallops,distal pulses intact, no carotid bruits, no murmurs, no gallops, no carotid bruits and no JVD Abdomen: soft, non-tender, non-distended, normal bowel sounds, no masses or organomegaly Extremities: no cyanosis, no clubbing, no edema Musculoskeletal: normal range of motion, no joint swelling, deformity or tenderness Neurologic: reflexes normal and symmetric, no cranial nerve deficit noted LABS/IMAGING: CBC: Lab Results Component Value Date WBC 10.9 05/04/2019 HGB 9.0 (L) 05/04/2019 HCT 33.0 (L) 05/04/2019 MCV 75.0 (L) 05/04/2019 PLT 328 05/04/2019 LYMPHOPCT 7.5 (L) 05/04/2019 RBC 4.40 05/04/2019 MCH 20.5 (L) 05/04/2019 MCHC 27.3 (L) 05/04/2019 RDW 17.2 (H) 05/04/2019 NEUTOPHILPCT 86.9 (H) 05/04/2019 MONOPCT 3.7 05/04/2019 BASOPCT 0.2 05/04/2019 NEUTROABS 9.45 (H) 05/04/2019 LYMPHSABS 0.82 (L) 05/04/2019 MONOSABS 0.40 05/04/2019 EOSABS 0.00 (L) 05/04/2019 BASOSABS 0.02 05/04/2019 Recent Labs 05/04/19 0350 05/03/198 05/02/19 0340 WBC 10.9 8.7 11.7* HGB 9.0* 8.9* 9.6* HCT 33.0* 33.1* 35.3 MCV 75.0* 76.3* 74.9* PLT 328 247 293 BMP: Recent Labs 05/02/19 0340 05/03/198 05/04/19 035 NA 137 138 138 K 3.8 3.9 4.3 CL 93* 96* 97* CO2 35* 34* 33* BUN 5* 6 7 CREATININE 0.6 0.6 0.6 MG: Lab Results Component Value Date MG 2.1 05/01/2019 Ca/Phos: Lab Results Component Value Date CALCIUM 8.8 05/04/2019 Amylase: Lab Results Component Value Date AMYLASE 28 09/28/2015 Lipase: Lab Results Component Value Date LIPASE 16 09/28/2015 LIVER PROFILE: No results for input(s): AST, ALT, LIPASE, BILIDIR, BILITOT, ALKPHOS in the last 72 hours. Invalid input(s): AMYLASE, ALB PT/INR: No results for input(s): PROTIME, INR in the last 72 hours. APTT: No results for input(s): APTT in the last 72 hours. Cardiac Enzymes: No results found for: CKTOTAL, CKMB, CKMBINDEX, TROPONINI Hgb A1C: No results found for: LABA1C No results found for: EAG JAYNA: Lab Results Component Value Date JAYNA NEGATIVE 01/16/2019 ESR: Lab Results Component Value Date SEDRATE 25 (H) 02/24/2019 CRP: Lab Results Component Value Date CRP 12.1 (H) 02/24/2019 D Dimer: No results found for: DDIMER Folate and B12: No results found for: [id number], No results found for: FOLATE Lactic Acid: Lab Results Component Value Date LACTA 0.7 01/15/2019 Ammonia: Cortisol: Thyroid Studies: Lab Results Component Value Date TSH 1.720 05/01/2019 XR CHEST PORTABLE Final Result Patchy perihilar and bibasilar infiltrates and pleural effusions which may be due to pneumonia or CHF. ASSESSMENT: 1.) Acute Exacerbation of Asthma with Recurrent Pneumonia - BIPAP 15/6, rate 12, FiO2 50% 2.) Common Variable Immune Deficiency 3.) Chronic Hypoxic Respiratory Failure - on 2L n/c since Apr 2018 (pneumonia at that time) 4.) Obesity 5.) Vitiligo PLAN: 1.) levaquin and oral doxycycline 2.) Gamunex-C IVIG per ID 3.) acyclovir prophylaxis 4.) DVT Prophylaxis - duoneb, dulera - IV steroids BID as baseline to continue - D/C planning pending Thank you Yvette Rahman MD very much for allowing me to see this patient in consultation and follow up. Care reviewed with nursing staff, medical and surgical specialty care, primary care and the patient's family as available. Restraints are ordered when the patient can do harm to him/herself by pulling out devices. Osman Mcnulty M.D. * Jermain Jaimes MD - 05/04/2019 10:53 AM EST [facility] Progress Note SUBJECTIVE: Chief Complaint Patient presents with Shortness of Breath Breathing little better, still on and off bipap. + productive cough, green sputum. She is tolerating oral antibiotics. Review of systems: As stated above in the chief complaint, otherwise negative. Medications: Scheduled Meds: methylPREDNISolone 40 mg Intravenous Q12H doxycycline hyclate 100 mg Oral 2 times per day levofloxacin 750 mg Oral Daily methylPREDNISolone 100 mg Intravenous See Admin Instructions diphenhydrAMINE 50 mg Intravenous See Admin Instructions acyclovir 400 mg Oral BID cetirizine 10 mg Oral Daily famotidine 20 mg Oral BID ferrous sulfate 325 mg Oral Daily with breakfast fluticasone 1 spray Each Nostril Daily mometasone-formoterol 2 puff Inhalation BID montelukast 10 mg Oral Nightly sertraline 100 mg Oral Daily sodium chloride flush 10 mL Intravenous 2 times per day enoxaparin 40 mg Subcutaneous Daily ipratropium-albuterol 1 ampule Inhalation Q4H WA Continuous Infusions: sodium chloride 75 mL/hr at 05/04/19 1037 PRN Meds:ibuprofen, albuterol, sodium chloride flush, magnesium hydroxide, ondansetron, acetaminophen OBJECTIVE: BP 135/64 Pulse 100 Temp 98.5 F (36.9 C) (Oral) Resp 20 Ht 6' (1.829 m) Wt (!) 335 lb 7 oz (152.2 kg) SpO2 90% BMI 45.49 kg/m Temp Av F (36.7 C) Min: 97.5 F (36.4 C) Max: 98.5 F (36.9 C) Constitutional: The patient is awake, alert, and oriented. No distress. Oxygen by nasal cannula. Skin: Warm and dry. No rashes were noted. HEENT: Round and reactive pupils. Moist mucous membranes. No ulcerations or thrush. Neck: Supple to movements. Chest: No use of accessory muscles to breathe. Diminished right base c/w effusion. Left crackles Cardiovascular: S1 and S2 are rhythmic and regular. No murmurs appreciated. Abdomen: Positive bowel sounds to auscultation. Soft, nontender. Extremities: No clubbing, no cyanosis, trace edema b/l LEs, LUE. Lines: peripheral Laboratory and Tests Review: Lab Results Component Value Date WBC 10.9 05/04/2019 WBC 8.7 05/03/2019 WBC 11.7 (H) 05/02/2019 HGB 9.0 (L) 05/04/2019 HCT 33.0 (L) 05/04/2019 MCV 75.0 (L) 05/04/2019 PLT 328 05/04/2019 Lab Results Component Value Date NEUTROABS 9.45 (H) 05/04/2019 NEUTROABS 6.29 05/03/2019 NEUTROABS 9.04 (H) 05/02/2019 No results found for: [facility] Lab Results Component Value Date ALT 9 01/18/2019 AST 10 01/18/2019 ALKPHOS 62 01/18/2019 BILITOT <0.2 01/18/2019 Lab Results Component Value Date NA 138 05/04/2019 K 4.3 05/04/2019 CL 97 05/04/2019 CO2 33 05/04/2019 BUN 7 05/04/2019 CREATININE 0.6 05/04/2019 CREATININE 0.6 05/03/2019 CREATININE 0.6 05/02/2019 GFRAA >60 05/04/2019 LABGLOM >60 05/04/2019 GLUCOSE 116 05/04/2019 PROT 5.5 01/18/2019 LABALBU 3.8 01/18/2019 CALCIUM 8.8 05/04/2019 BILITOT <0.2 01/18/2019 ALKPHOS 62 01/18/2019 AST 10 01/18/2019 ALT 9 01/18/2019 Lab Results Component Value Date CRP 12.1 (H) 02/24/2019 CRP 7.5 (H) 01/15/2019 Lab Results Component Value Date SEDRATE 25 (H) 02/24/2019 Radiology: Microbiology: Streptococcus pneumoniae/Legionella urine Ag: negative Respiratory panel: Negative Respiratory culture: reduced oral jed Influenza by PCR: Negative ASSESSMENT: Common variable immune deficiency. Tolerated IgA depleted IVIG - received 05/03 IgA, IgM, IgG and IgE deficiency Possible recurrent pneumonia Right-sided pleural effusion. Being followed by pulmonary PLAN: Continue oral Doxycycline and Levofloxacin Continue oral Acyclovir prophylaxis Check final cultures Monitor labs August Alysia Villalobos 10:54 AM 05/04/2019 Patient seen and examined. I had a face to face encounter with the patient. Agree with exam. Assessment and plan as outlined above and directed by me. Addition and corrections were done as deemed appropriate. My exam and plan include: As above. Patient still has a slightly productive cough. Tolerating current oral antibiotics. No fever. No new findings on exam. We will continue current treatment. Jermain Jaimes 05/04/2019 * Shanel Campbellsea - 05/04/2019 8:04 AM EST Chief complaint : Patient presents with Shortness of Breath Subjective: No acute overnight events. She states she is doing better. Still c/o some posterior rib pain from coughing, but improved with Motrin PRN. Had IVIG infusion yesterday with no acute reactions. Currently on 5L O2 via NC. Intermittently used BiPAP throughout the night. Past medical, surgical, family and social history were reviewed, non- contributory, and unchanged unless otherwise stated. Review of Systems Constitutional: Positive for fatigue. Negative for chills and fever. Respiratory: Positive for cough and shortness of breath. Negative for choking and wheezing. Cardiovascular: Positive for chest pain (ribs). Negative for palpitations and leg swelling. Gastrointestinal: Negative for abdominal pain, constipation, diarrhea, nausea and vomiting. Musculoskeletal: Negative for back pain and neck stiffness. Skin: Negative for pallor. Neurological: Positive for weakness. Negative for light-headedness, numbness and headaches. Psychiatric/Behavioral: Negative for confusion. Objective: BP: 117/56 HR95 RR20 T98.5F O2 92% on 5L via NC Physical Exam Constitutional: General: She is not in acute distress. Appearance: She is obese. She is resting comfortably in no acute distress. HENT: Head: Normocephalic and atraumatic. Eyes: Conjunctiva/sclera: Conjunctivae normal. Pupils: Pupils are equal, round, and reactive to light. Neck: Musculoskeletal: Normal range of motion. Vascular: No JVD. Cardiovascular: Rate and Rhythm: Regular rate and rhythm. Heart sounds: Normal heart sounds. No murmur. Pulmonary: Breath sounds: No wheezing. Comments: Moderate air movement in upper lobes with scattered coarse breath sounds and faint wheezes, improved from yesterday. Poor air movement at bases bilaterally. Prolonged end-expiratory phase. Abdominal: General: Bowel sounds are normal. There is no distension. Palpations: Abdomen is soft. Musculoskeletal: Normal range of motion. General: No swelling. Skin: General: Skin is warm and dry. No peripheral edema. Capillary Refill: Capillary refill takes less than 2 seconds. Neurological: General: No focal deficit present. Mental Status: She is alert and oriented to person, place, and time. Labs: Recent Results (from the past 24 hour(s)) Basic Metabolic Panel w/ Reflex to MG Collection Time: 05/03/19 2:28 AM Result Value Ref Range Sodium 138 132 - 146 mmol/L Potassium reflex Magnesium 4.3 3.5 - 5.0 mmol/L Chloride 97 (L) 98 - 107 mmol/L CO2 33 (H) 22 - 29 mmol/L Anion Gap 7 7 - 16 mmol/L Glucose 116 (H) 74 - 99 mg/dL BUN 7 6 - 20 mg/dL CREATININE 0.6 0.5 - 1.0 mg/dL GFR Non- >60 >=60 mL/min/1.73 GFR >60 Calcium 8.8 (L) 8.6 - 10.2 mg/dL CBC auto differential Collection Time: 05/03/19 2:28 AM Result Value Ref Range WBC 10.9 4.5 - 11.5 E9/L RBC 4.40 3.50 - 5.50 E12/L Hemoglobin 9.0 (L) 11.5 - 15.5 g/dL Hematocrit 33.0 (L) 34.0 - 48.0 % MCV 75.0 (L) 80.0 - 99.9 fL MCH 20.5 (L) 26.0 - 35.0 pg MCHC 27.3 (L) 32.0 - 34.5 % RDW 17.2 (H) 11.5 - 15.0 fL Platelets 328 130 - 450 E9/L MPV 10.4 7.0 - 12.0 fL Neutrophils % 86.9 43.0 - 80.0 % Immature Granulocytes % 1.7 0.0 - 5.0 % Lymphocytes % 7.4 (L) 20.0 - 42.0 % Monocytes % 3.7 2.0 - 12.0 % Eosinophils % 0.0 0.0 - 6.0 % Basophils % 0.2 0.0 - 2.0 % Neutrophils Absolute 9.45 1.80 - 7.30 E9/L Immature Granulocytes # 0.18 E9/L Lymphocytes Absolute 0.82 (L) 1.50 - 4.00 E9/L Monocytes Absolute 0.40 0.10 - 0.95 E9/L Eosinophils Absolute 0.00 0.05 - 0.50 E9/L Basophils Absolute 0.02 0.00 - 0.20 E9/L Anisocytosis 1+ Polychromasia 1+ Hypochromia 2+ Poikilocytes 1+ Ovalocytes 1+ Assessment: Active Hospital Problems Diagnosis Date Noted Pneumonia [J18.9] 05/01/2019 Common variable immunodeficiency (HCC) [D83.9] 02/21/2019 Depression [F32.9] Persistent asthma with acute exacerbation [J45.901] Iron deficiency anemia [D50.9] 06/17/2018 Plan: 1. Pneumonia Respiratory cx pending - Nasal Cannula at 5LO2, consistent with home O2 levels prior to admit - DuoNeb tx q4h while awake - consulted Pulm - aerosols and steroids - consulted ID - doxycycline, levofloxacin, acyclovir prophylaxis - Tolerated IVIG well on 12/27 - Motrin 600mg 1 PO q6h prn for rib pain Plan to continue current therapy at this time. Will consider discharge planning within next 2-3 days. 2. Common Variable Immunodeficiency CVID - consulted ID as above GI prophylaxis: famotidine 20mg PO BID DVT prophylaxis: Lovenox 40mg subQ daily Code status: Full code * Juice Roberson MD - 05/04/2019 6:24 AM EST [facility] Progress Note Subjective: Patient stated that she has been improved about 25% since yesterday, but she has dry cough that is bothering her a lot. She is refusing BiPAP and she is on high flow oxygen. She stated that her shortness of breath is improving. I also spoke with nurse who is taking care of her who said that she hasa lot of crackles all over the chest otherwise she is a stable overnight.Denies chest pain, angina, and dyspnea. Denies abdominal pain. Tolerating diet. No nausea or vomiting. Past medical, surgical, family and social history were reviewed, non- contributory, and unchanged unless otherwise stated. Objective: BP (!) 117/56 Pulse 95 Temp 98.5 F (36.9 C) (Oral) Resp 22 Ht 6' (1.829 m) Wt (!) 335 lb 7 oz (152.2 kg) SpO2 92% BMI 45.49 kg/m Heart: RRR, no murmurs, gallops, or rubs. Lungs: CTA bilaterally, crackles bilaterally, wheezing++, prolonged expiration Abd: bowel sounds present, nontender, nondistended, no masses Extrem: No clubbing, cyanosis, or edema Recent Results (from the past 24 hour(s)) Basic Metabolic Panel w/ Reflex to MG Collection Time: 05/04/19 3:50 AM Result Value Ref Range Sodium 138 132 - 146 mmol/L Potassium reflex Magnesium 4.3 3.5 - 5.0 mmol/L Chloride 97 (L) 98 - 107 mmol/L CO2 33 (H) 22 - 29 mmol/L Anion Gap 8 7 - 16 mmol/L Glucose 116 (H) 74 - 99 mg/dL BUN 7 6 - 20 mg/dL CREATININE 0.6 0.5 - 1.0 mg/dL GFR Non- >60 >=60 mL/min/1.73 GFR >60 Calcium 8.8 8.6 - 10.2 mg/dL CBC auto differential Collection Time: 05/04/19 3:50 AM Result Value Ref Range WBC 10.9 4.5 - 11.5 E9/L RBC 4.40 3.50 - 5.50 E12/L Hemoglobin 9.0 (L) 11.5 - 15.5 g/dL Hematocrit 33.0 (L) 34.0 - 48.0 % MCV 75.0 (L) 80.0 - 99.9 fL MCH 20.5 (L) 26.0 - 35.0 pg MCHC 27.3 (L) 32.0 - 34.5 % RDW 17.2 (H) 11.5 - 15.0 fL Platelets 328 130 - 450 E9/L MPV 10.4 7.0 - 12.0 fL Neutrophils % 86.9 (H) 43.0 - 80.0 % Immature Granulocytes % 1.7 0.0 - 5.0 % Lymphocytes % 7.5 (L) 20.0 - 42.0 % Monocytes % 3.7 2.0 - 12.0 % Eosinophils % 0.0 0.0 - 6.0 % Basophils % 0.2 0.0 - 2.0 % Neutrophils Absolute 9.45 (H) 1.80 - 7.30 E9/L Immature Granulocytes # 0.18 E9/L Lymphocytes Absolute 0.82 (L) 1.50 - 4.00 E9/L Monocytes Absolute 0.40 0.10 - 0.95 E9/L Eosinophils Absolute 0.00 (L) 0.05 - 0.50 E9/L Basophils Absolute 0.02 0.00 - 0.20 E9/L Anisocytosis 1+ Polychromasia 1+ Hypochromia 2+ Poikilocytes 2+ Ovalocytes 1+ Tear Drop Cells 1+ XR CHEST PORTABLE Final Result Patchy perihilar and bibasilar infiltrates and pleural effusions which may be due to pneumonia or CHF. Assessment: Active Hospital Problems Diagnosis Date Noted Pneumonia [J18.9] 05/01/2019 Common variable immunodeficiency (HCC) [D83.9] 02/21/2019 Depression [F32.9] Persistent asthma with acute exacerbation [J45.901] Iron deficiency anemia [D50.9] 06/17/2018 Plan: 1. Pneumonia - now on nasal canula, SOB is mildly improved - DuoNeb tx q4h while awake - strep and legionella urine antigen negative - consulted Pulm - aerosols and steroids - consulted ID - oral doxycycline, levofloxacin, given IgA depleted IVIG yesterday, -on acyclovir prophylaxis 2.Persistent asthma with acute exac - pt on duonebs and dulera plus oxygen. Currently requiring high flow oxygen and occasional bipap. 3. Common Variable Immunodeficiency CVID - consulted ID _ Immunoglobulin Given as per ID recommendation Associated attestation - Beni Tabor MD - 05/04/2019 9:57 AM EST Family Medicine Attending Physician Statement I have discussed the case, including pertinent history and exam findings with the resident. I also have seen and examined the patient. No acute issues overnight. States feeling a little better. Still short of breath, requiring oxygen.Oxygen requirements are back to baseline. Cough is still productive of green sputum. Reports subjective sweats but no chills or objective fevers. Relevant PFSH, ROS noted and confirmed per resident note. BP 135/64 Pulse 100 Temp 98.5 F (36.9 C) (Oral) Resp 20 Ht 6' (1.829 m) Wt (!) 335 lb 7 oz (152.2 kg) SpO2 90% BMI 45.49 kg/m Exam is as noted by resident with the following changes, additions or corrections: Gen Alert cooperative NAD CV: S1S2 RRR no murmur Resp prolongation of expiratory phase with scattered wheezes and rhonchi heard throughout the lung pittman. Equal air exchange GI soft NT/ND +bs Imp Common variable immunodeficiency Pneumonia Persisting asthma Chronic respiratory failure with hypoxia and requirements of oxygen Plan Continue current measures. Will discuss with specialist. Anticipate possible discharge within the next 24 to 48 hours. Is on oral antibiotics, steroids can likely be converted soon to orals. Back to essentially a baseline level of oxygen requirements. Otherwise I agree with the resident's documented assessment and plan * Lakesha Ruelas RN - 05/04/2019 1:00 AM EST Patient requested to be off BIPAP at midnight. Used less than 2 hours this evening. * Alka Marino RCP - 05/04/2019 12:30 AM EST Pt off bipap at this time. She is awake and playing on phone. States she will put herself on later.Will recheck Alka Irwin * Lakesha Ybarra RCP - 05/03/2019 10:27 PM EST Date: 05/03/2019 Time: 10:27 PM Patient Placed On BIPAP/CPAP/ Non-Invasive Ventilation? Yes If no must comment. Facial area red/color change? No If YES are Blister/Lesion present?No If yes must notify nursing staff BIPAP/CPAP skin barrier? Yes Skin barrier type:mepilex Comments: Lakesha Ybarra * Jermain Jaimes MD - 05/03/2019 3:36 PM EST [facility] Progress Note SUBJECTIVE: Chief Complaint Patient presents with Shortness of Breath Patient feels about the same. She is tolerating oral antibiotics. She tolerated IgA depleted IVIG infusion today. Review of systems: As stated above in the chief complaint, otherwise negative. Medications: Scheduled Meds: doxycycline hyclate 100 mg Oral 2 times per day levofloxacin 750 mg Oral Daily methylPREDNISolone 100 mg Intravenous See Admin Instructions diphenhydrAMINE 50 mg Intravenous See Admin Instructions acyclovir 400 mg Oral BID cetirizine 10 mg Oral Daily famotidine 20 mg Oral BID ferrous sulfate 325 mg Oral Daily with breakfast fluticasone 1 spray Each Nostril Daily mometasone-formoterol 2 puff Inhalation BID montelukast 10 mg Oral Nightly sertraline 100 mg Oral Daily sodium chloride flush 10 mL Intravenous 2 times per day enoxaparin 40 mg Subcutaneous Daily ipratropium-albuterol 1 ampule Inhalation Q4H WA Continuous Infusions: sodium chloride Stopped (05/03/19 0856) PRN Meds:ibuprofen, albuterol, sodium chloride flush, magnesium hydroxide, ondansetron, acetaminophen OBJECTIVE: BP 106/64 Pulse 96 Temp 97.5 F (36.4 C) (Oral) Resp 20 Ht 6' (1.829 m) Wt (!) 336 lb (152.4 kg) SpO2 90% BMI 45.57 kg/m Temp Av.8 F (36.6 C) Min: 97.4 F (36.3 C) Max: 98.1 F (36.7 C) Constitutional: The patient is awake, alert, and oriented. No distress. Oxygen by nasal cannula. Skin: Warm and dry. No rashes were noted. HEENT: Round and reactive pupils. Moist mucous membranes. No ulcerations or thrush. Neck: Supple to movements. Chest: No use of accessory muscles to breathe. Symmetrical expansion. No wheezing, crackles or rhonchi. Cardiovascular: S1 and S2 are rhythmic and regular. No murmurs appreciated. Abdomen: Positive bowel sounds to auscultation. Benign to palpation. Extremities: No clubbing, no cyanosis, no edema. Lines: peripheral Laboratory and Tests Review: Lab Results Component Value Date WBC 8.7 05/03/2019 WBC 11.7 (H) 05/02/2019 WBC 13.7 (H) 05/01/2019 HGB 8.9 (L) 05/03/2019 HCT 33.1 (L) 05/03/2019 MCV 76.3 (L) 05/03/2019 PLT 247 05/03/2019 Lab Results Component Value Date NEUTROABS 6.29 05/03/2019 NEUTROABS 9.04 (H) 05/02/2019 NEUTROABS 11.08 (H) 05/01/2019 No results found for: [facility] Lab Results Component Value Date ALT 9 01/18/2019 AST 10 01/18/2019 ALKPHOS 62 01/18/2019 BILITOT <0.2 01/18/2019 Lab Results Component Value Date NA 138 05/03/2019 K 3.9 05/03/2019 CL 96 05/03/2019 CO2 34 05/03/2019 BUN 6 05/03/2019 CREATININE 0.6 05/03/2019 CREATININE 0.6 05/02/2019 CREATININE 0.7 05/01/2019 GFRAA >60 05/03/2019 LABGLOM >60 05/03/2019 GLUCOSE 101 05/03/2019 PROT 5.5 01/18/2019 LABALBU 3.8 01/18/2019 CALCIUM 8.1 05/03/2019 BILITOT <0.2 01/18/2019 ALKPHOS 62 01/18/2019 AST 10 01/18/2019 ALT 9 01/18/2019 Lab Results Component Value Date CRP 12.1 (H) 02/24/2019 CRP 7.5 (H) 01/15/2019 Lab Results Component Value Date SEDRATE 25 (H) 02/24/2019 Radiology: Microbiology: Streptococcus pneumoniae/Legionella urine Ag: negative Respiratory panel: Negative Respiratory culture: Pending Influenza by PCR: Negative ASSESSMENT: Common variable immune deficiency. Tolerating IgA depleted IVIG IgA, IgM, IgG and IgE deficiency Possible recurrent pneumonia Right-sided pleural effusion. Being followed by pulmonary PLAN: Continue oral Doxycycline and Levofloxacin Continue oral Acyclovir prophylaxis Check final cultures Monitor labs Jermain Jaimes 3:36 PM 05/03/2019 * Osman Mcnulty MD - 05/03/2019 2:20 PM EST [facility] PROGRESS NOTE Patient: Torrie Martinez : 1990 Encounter Date: 05/03/2019 Encounter Time: 2:20 PM Date of Admission: .05/01/2019 12:01 PM Consulting Physician: Primary Care Physician: Sandee Hoyt MD [phone] Reason for Consultation: Acute Exacerbation of Asthma Problem List: Patient Active Problem List Diagnosis Chronic asthma, moderate persistent, uncomplicated Gastroesophageal reflux disease without esophagitis Major depressive disorder Persistent asthma with acute exacerbation Depression Common variable immunodeficiency (HCC) Iron deficiency anemia MARCUS (generalized anxiety disorder) Pneumonia SUBJECTIVE: Patient seen and examined. Overnight the patient had no shortness of breath, cough, increased work of breathing. HOME MEDICATIONS: Prior to Admission medications Medication Sig Start Date End Date Taking? Authorizing Provider acyclovir (ZOVIRAX) 400 MG tablet Take 1 tablet by mouth 2 times daily 03/22/19 Historical Provider, INCRUSE ELLIPTA 62.5 MCG/INH AEPB inhale 1 puff by mouth and INTO THE LUNGS once daily 03/25/19 Sandee Hoyt MD montelukast (SINGULAIR) 10 MG tablet take 1 tablet by mouth every evening 03/25/19 Sandee Hoyt MD fluticasone-salmeterol (ADVAIR DISKUS) 250-50 MCG/DOSE AEPB Inhale 1 puff into the lungs 2 times daily Rinse mouth after use. 02/27/19 Sandee Hoyt MD famotidine (PEPCID) 20 MG tablet Take 1 tablet by mouth 2 times daily 02/07/19 06/07/19 Sandee Hoyt MD ferrous sulfate 325 (65 Fe) MG tablet Take 1 tablet by mouth daily (with breakfast) 02/07/19 06/07/19Sandee Hoyt MD fluticasone (FLONASE) 50 MCG/ACT nasal spray 1 spray by Each Nostril route daily 02/07/19 Sandee Hoyt MD Fluticasone furoate-vilanterol (BREO ELLIPTA) 200-25 MCG/INH AEPB inhaler Inhale 1 puff into the lungs daily 02/07/19 Sandee Hoyt MD sertraline (ZOLOFT) 100 MG tablet Take 1 tablet by mouth daily 02/07/19 06/07/19 Sandee Hoyt MD cetirizine (ZYRTEC) 10 MG tablet Take 1 tablet by mouth daily 02/07/19 Sandee Hoyt MD albuterol (PROVENTIL) (2.5 MG/3ML) 0.083% nebulizer solution Take 2.5 mg by nebulization every 6 hours as needed for Wheezing Historical Provider, Oxygen Concentrator Historical Provider, albuterol sulfate HFA 108 (90 Base) MCG/ACT inhaler Inhale 2 puffs into the lungs every 6 hours as needed for Wheezing Historical Provider, CURRENT MEDICATIONS: Current Facility-Administered Medications: ibuprofen (ADVIL;MOTRIN) tablet 600 mg, 600 mg, Oral, Q6H PRN doxycycline hyclate (VIBRAMYCIN) capsule 100 mg, 100 mg, Oral, 2 times per day levofloxacin (LEVAQUIN) tablet 750 mg, 750 mg, Oral, Daily Immune Globulin (Human) IV solution 35 g, 35 g, Intravenous, Titrated methylPREDNISolone sodium (SOLU-MEDROL) injection 100 mg, 100 mg, Intravenous, See Admin Instructions diphenhydrAMINE (BENADRYL) injection 50 mg, 50 mg, Intravenous, See Admin Instructions acyclovir (ZOVIRAX) capsule 400 mg, 400 mg, Oral, BID albuterol (PROVENTIL) nebulizer solution 2.5 mg, 2.5 mg, Nebulization, Q6H PRN cetirizine (ZYRTEC) tablet 10 mg, 10 mg, Oral, Daily famotidine (PEPCID) tablet 20 mg, 20 mg, Oral, BID ferrous sulfate tablet 325 mg, 325 mg, Oral, Daily with breakfast fluticasone (FLONASE) 50 MCG/ACT nasal spray 1 spray, 1 spray, Each Nostril, Daily mometasone-formoterol (DULERA) 200-5 MCG/ACT inhaler 2 puff, 2 puff, Inhalation, BID montelukast (SINGULAIR) tablet 10 mg, 10 mg, Oral, Nightly sertraline (ZOLOFT) tablet 100 mg, 100 mg, Oral, Daily sodium chloride flush 0.9 % injection 10 mL, 10 mL, Intravenous, 2 times per day sodium chloride flush 0.9 % injection 10 mL, 10 mL, Intravenous, PRN magnesium hydroxide (MILK OF MAGNESIA) 400 MG/5ML suspension 30 mL, 30 mL, Oral, Daily PRN ondansetron (ZOFRAN) injection 4 mg, 4 mg, Intravenous, Q6H PRN enoxaparin (LOVENOX) injection 40 mg, 40 mg, Subcutaneous, Daily 0.9 % sodium chloride infusion, , Intravenous, Continuous acetaminophen (TYLENOL) tablet 650 mg, 650 mg, Oral, Q4H PRN ipratropium-albuterol (DUONEB) nebulizer solution 1 ampule, 1 ampule, Inhalation, Q4H WA ALLERGIES: Allergies Allergen Reactions Flebogamma Dif [Immune Globulin (Human)] Nausea And Vomiting Elevated heart rate, chest pressure Seasonal Other (See Comments) Congestion REVIEW OF SYSTEMS: General ROS: Negative For: chills, fatigue, fever, malaise, night sweats or sleep disturbance ENT ROS: Negative For: epistaxis, headaches, sinus pain, sneezing or sore throat Respiratory ROS: Negative For: hemoptysis, pleuritic type chest pains Cardiovascular ROS: Negative For: chest pain, dyspnea on exertion, irregular heartbeat, loss of consciousness, murmur, orthopnea or palpitations Gastrointestinal ROS: Negative For: abdominal pain, appetite loss, blood in stools, change in bowelhabits, change in stools, constipation, diarrhea, hematemesis, melena, nausea/vomiting or stool incontinence OBJECTIVE: PHYSICAL EXAMINATION: VITAL SIGNS: BP 106/64 Pulse 96 Temp 97.5 F (36.4 C) (Oral) Resp 20 Ht 6' (1.829 m) Wt (!) 336 lb (152.4 kg) SpO2 90% BMI 45.57 kg/m Wt Readings from Last 3 Encounters: 05/03/19 (!) 336 lb (152.4 kg) 04/01/19 (!) 320 lb (145.2 kg) 03/19/19 (!) 340 lb (154.2 kg) Temp Readings from Last 3 Encounters: 05/03/19 97.5 F (36.4 C) (Oral) 04/01/19 99 F (37.2 C) (Oral) 03/19/19 98.8 F (37.1 C) (Oral) TMAX: BP Readings from Last 3 Encounters: 05/03/19 106/64 04/01/19 108/65 03/19/19 116/62 Pulse Readings from Last 3 Encounters: 05/03/19 96 04/01/19 98 03/19/19 100 CURRENT PULSE OXIMETRY: SpO2: 90 % 24HR PULSE OXIMETRY RANGE: SpO2 Av.2 % Min: 90 % Max: 96 % CVP: VENTILATOR SETTINGS (if applicable): Vent Information FiO2 : 50 % I Time/ I Time %: 1 s Additional Respiratory Assessments Pulse: 96 Resp: 20 SpO2: 90 % ETCO2: Peak Inspiratory Pressure: End-Inspiratory Plateau Pressure: ABG: Recent Labs 05/01/19 1308 PH 7.372 PO2 55.0* PCO2 61.7* HCO3 35.0* BE 8.1* O2SAT 87.1* METHB 0.5 O2HB 86.1* COHB 0.7 O2CON 13.5 HHB 12.7* THB 11.1* FiO2 : 50 % IV ACCESS: NUTRITION: DIET GENERAL; INTAKE/OUTPUTS: I/O last 3 completed shifts: In: 2915 [I.V.:2915] Out: - Intake/Output Summary (Last 24 hours) at 05/03/2019 1420 Last data filed at 05/03/2019 0602 Gross per 24 hour Intake 2915 ml Output Net 2915 ml General Appearance: alert and oriented to person, place and time, well-developed and well-nourished, in no acute distress Eyes: pupils equal, round, and reactive to light, extraocular eye movements intact, conjunctivae normal and sclera anicteric Neck: neck supple and non tender without mass, no thyromegaly, no thyroid nodules and no cervical adenopathy Pulmonary/Chest: decreased breath sounds, no accessory muscles of inspiration - minimal end-expiratory wheezes Cardiovascular: normal rate, regular rhythm, normal S1 and S2, no murmurs, rubs, clicks or gallops,distal pulses intact, no carotid bruits, no murmurs, no gallops, no carotid bruits and no JVD Abdomen: soft, non-tender, non-distended, normal bowel sounds, no masses or organomegaly Extremities: no cyanosis, no clubbing, no edema Musculoskeletal: normal range of motion, no joint swelling, deformity or tenderness Neurologic: reflexes normal and symmetric, no cranial nerve deficit noted LABS/IMAGING: CBC: Lab Results Component Value Date WBC 8.7 05/03/2019 HGB 8.9 (L) 05/03/2019 HCT 33.1 (L) 05/03/2019 MCV 76.3 (L) 05/03/2019 PLT 247 05/03/2019 LYMPHOPCT 13.4 (L) 05/03/2019 RBC 4.34 05/03/2019 MCH 20.5 (L) 05/03/2019 MCHC 26.9 (L) 05/03/2019 RDW 17.4 (H) 05/03/2019 NEUTOPHILPCT 72.4 05/03/2019 MONOPCT 7.5 05/03/2019 BASOPCT 0.2 05/03/2019 NEUTROABS 6.29 05/03/2019 LYMPHSABS 1.17 (L) 05/03/2019 MONOSABS 0.65 05/03/2019 EOSABS 0.47 05/03/2019 BASOSABS 0.02 05/03/2019 Recent Labs 05/03/19 0228 05/02/19 0340 05/01/19 1236 WBC 8.7 11.7* 13.7* HGB 8.9* 9.6* 10.3* HCT 33.1* 35.3 36.7 MCV 76.3* 74.9* 73.5* PLT 247 293 314 BMP: Recent Labs 05/01/19 1236 05/02/19 0340 05/03/19 0228 NA 136 137 138 K 4.2 3.8 3.9 CL 92* 93* 96* CO2 35* 35* 34* BUN 6 5* 6 CREATININE 0.7 0.6 0.6 MG: Lab Results Component Value Date MG 2.1 05/01/2019 Ca/Phos: Lab Results Component Value Date CALCIUM 8.1 (L) 05/03/2019 Amylase: Lab Results Component Value Date AMYLASE 28 09/28/2015 Lipase: Lab Results Component Value Date LIPASE 16 09/28/2015 LIVER PROFILE: No results for input(s): AST, ALT, LIPASE, BILIDIR, BILITOT, ALKPHOS in the last 72 hours. Invalid input(s): AMYLASE, ALB PT/INR: No results for input(s): PROTIME, INR in the last 72 hours. APTT: No results for input(s): APTT in the last 72 hours. Cardiac Enzymes: No results found for: CKTOTAL, CKMB, CKMBINDEX, TROPONINI Hgb A1C: No results found for: LABA1C No results found for: EAG JAYNA: Lab Results Component Value Date JAYNA NEGATIVE 01/16/2019 ESR: Lab Results Component Value Date SEDRATE 25 (H) 02/24/2019 CRP: Lab Results Component Value Date CRP 12.1 (H) 02/24/2019 D Dimer: No results found for: DDIMER Folate and B12: No results found for: [id number], No results found for: FOLATE Lactic Acid: Lab Results Component Value Date LACTA 0.7 01/15/2019 Ammonia: Cortisol: Thyroid Studies: Lab Results Component Value Date TSH 1.720 05/01/2019 XR CHEST PORTABLE Final Result Patchy perihilar and bibasilar infiltrates and pleural effusions which may be due to pneumonia or CHF. ASSESSMENT: 1.) Acute Exacerbation of Asthma with Recurrent Pneumonia 2.) Common Variable Immune Deficiency 3.) Chronic Hypoxic Respiratory Failure - on 2L n/c since Apr 2018 (pneumonia at that time) 4.) Obesity 5.) Vitiligo PLAN: 1.) levaquin and oral doxycycline 2.) Gamunex-C IVIG per ID 3.) acyclovir prophylaxis 4.) DVT Prophylaxis - duoneb, dulera - IV steroids Thank you Yvette Rahman MD very much for allowing me to see this patient in consultation and follow up. Care reviewed with nursing staff, medical and surgical specialty care, primary care and the patient's family as available. Restraints are ordered when the patient can do harm to him/herself by pulling out devices. Osman Mcnulty M.D. * Edna Leger OT - 05/03/2019 11:59 AM EST Occupational Therapy OCCUPATIONAL THERAPY INITIAL EVALUATION Date:05/03/2019 Patient Name: Torrie Martinez : 1990 Room: [address] [place] [address] Evaluating OT: Edna Leger OTR/L [id number] AM-PAC Daily Activity Raw Score: Recommended Adaptive Equipment: TBD Diagnosis: pneumonia. Pt presents to ED from home with SOB. 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 Pt reports she has been sleeping on an air mattress on the 1st floor. Uses the basement bathroom. Bathroom setup: walk in shower with grab bar Prior Level of Function: Mod I with ADLs, friend assists with IADLs; completed functional mobility with no AD. 6L O2 at home. Pain Level: pain reported at back with deep breaths Cognition: A&O: 4/4. lethargic Problem solving: WFL Judgement/safety: WF Functional Assessment: Initial Eval Status Date: 05/03/19 Treatment session: Short Term Goals Treatment frequency: 2-5x/wk PRN x1-3 wks Feeding Independent Grooming Set up Independent UB Dressing Set up Independent LB Dressing SBA Donning B Socks Increased SOB with forward trunk flexion Mod I Bathing Min A Mod I Toileting SBA Mod I Bed Mobility Supine to sit: Independent Functional Transfers STS: SBA Mod I Functional Mobility SBA with no AD Household distance Limited further due to weakness/fatigue and SOB Mod I during ADLs Balance Sitting: fair plus Standing: fair no AD Upon initial standing minimal LOB with ability to self correct Activity Tolerance Poor. 6L O2 throughout session. Limited due to SOB with minimal exertion. Resting O2 6L: 90% With activity: 85% 3-4 min recovery time to achieve 90% seated at EOB standing ila x6-7 min with fair plus balance during self care tasks Strength ROM Additional Info: RUE 4/5 WFL good hospice music therapy and FMC/dexterity noted during ADL tasks LUE 4/5 WFL good hospice music therapy and FMC/dexterity noted during ADL tasks Hearing: WF Vision: WF Sensation: No c/o numbness or tingling Tone: WFL Comments/Treatment: Patient educated on adapted techniques for completion of ADL, safe functional transfers and mobility. Patient required cues for follow through with proper hand/foot placement, pacing, safety and technique in bed mobility, functional transfers, functional mobility and LB dressingin preparation for maximum independence in all self care tasks. Eval Complexity: Low Assessment of current deficits Functional mobility [x] ADLs [x] Strength [x] Cognition [] Functional transfers [x] IADLs [x] Safety Awareness [x] Endurance [x] Fine Motor Coordination [] Balance [x] Vision/perception [] Sensation [] Gross Motor Coordination [] ROM [] Delirium [] Motor Control [] Plan of Care: ADL retraining [x] Equipment needs [x] Neuromuscular re-education [x] Energy Conservation Techniques [x] Functional Transfer training [x] Patient and/or Family Education [x] Functional Mobility training [x] Environmental Modifications [x] Cognitive re-training [] Compensatory techniques for ADLs [x] Splinting Needs [] Positioning to improve overall function [x] Therapeutic Activity [x] Therapeutic Exercise [x] Visual/Perceptual: [] Delirium prevention/treatment [] Other: [] Rehab Potential: Good for established goals Patient / Family Goal: To get home. Patient and/or family were instructed on functional diagnosis, prognosis/goals and OT plan of care.Pt verbalized good understanding. Upon arrival, patient supine in bed. At end of session, patient supine in bed per pt request with call light and phone within reach, all lines and tubes intact. Pt would benefit from continued skilled OT to increase safety and independence with completion of ADL/IADL tasks for functional independence and quality of life. Low Evaluation + 0 timed treatment minutes Evaluation time includes thorough review of current medical information, gathering information on past medical history/social history and prior level of function, completion of standardized testing/informal observation of tasks, assessment of data, and development of POC/Goals Edna Leger OTR/L [id number] * Sandee Hoyt MD - 05/03/2019 7:43 AM EST [facility] Progress Note Chief complaint : Chief Complaint Patient presents with Shortness of Breath Subjective: No overnight problems. Patient describes feeling slightly improved. Rib pain more controlled with motrin. Used BiPAP intermittently for about an hour at a time last night. Still on 6L O2. Past medical, surgical, family and social history were reviewed, non- contributory, and unchanged unless otherwise stated. Review of Systems Constitutional: Positive for fatigue. Negative for chills and fever. Respiratory: Positive for cough and shortness of breath. Negative for choking and wheezing. Cardiovascular: Positive for chest pain (ribs). Negative for palpitations and leg swelling. Gastrointestinal: Negative for abdominal pain, constipation, diarrhea, nausea and vomiting. Musculoskeletal: Negative for back pain and neck stiffness. Skin: Negative for pallor. Neurological: Positive for weakness. Negative for light-headedness, numbness and headaches. Psychiatric/Behavioral: Negative for confusion. Objective: BP (!) 98/56 Pulse 88 Temp 97.4 F (36.3 C) (Oral) Resp 23 Ht 6' (1.829 m) Wt (!) 336 lb (152.4 kg) SpO2 93% BMI 45.57 kg/m Physical Exam Vitals signs reviewed. Constitutional: General: She is not in acute distress. Appearance: She is obese. She is ill-appearing. HENT: Head: Normocephalic and atraumatic. Eyes: Conjunctiva/sclera: Conjunctivae normal. Pupils: Pupils are equal, round, and reactive to light. Neck: Musculoskeletal: Normal range of motion. Vascular: No JVD. Cardiovascular: Rate and Rhythm: Regular rhythm. Tachycardia present. Heart sounds: Normal heart sounds. No murmur. Pulmonary: Breath sounds: No wheezing. Comments: Poor air movement at bases bilaterally with some crackles heard at left base. Moderate air movement in upper lobes with no coarse breath soundse Abdominal: General: Bowel sounds are normal. There is no distension. Palpations: Abdomen is soft. Musculoskeletal: Normal range of motion. General: No swelling. Skin: General: Skin is warm and dry. Capillary Refill: Capillary refill takes less than 2 seconds. Neurological: General: No focal deficit present. Mental Status: She is alert and oriented to person, place, and time. Labs: Recent Results (from the past 24 hour(s)) Basic Metabolic Panel w/ Reflex to MG Collection Time: 05/03/19 2:28 AM Result Value Ref Range Sodium 138 132 - 146 mmol/L Potassium reflex Magnesium 3.9 3.5 - 5.0 mmol/L Chloride 96 (L) 98 - 107 mmol/L CO2 34 (H) 22 - 29 mmol/L Anion Gap 8 7 - 16 mmol/L Glucose 101 (H) 74 - 99 mg/dL BUN 6 6 - 20 mg/dL CREATININE 0.6 0.5 - 1.0 mg/dL GFR Non- >60 >=60 mL/min/1.73 GFR >60 Calcium 8.1 (L) 8.6 - 10.2 mg/dL CBC auto differential Collection Time: 05/03/19 2:28 AM Result Value Ref Range WBC 8.7 4.5 - 11.5 E9/L RBC 4.34 3.50 - 5.50 E12/L Hemoglobin 8.9 (L) 11.5 - 15.5 g/dL Hematocrit 33.1 (L) 34.0 - 48.0 % MCV 76.3 (L) 80.0 - 99.9 fL MCH 20.5 (L) 26.0 - 35.0 pg MCHC 26.9 (L) 32.0 - 34.5 % RDW 17.4 (H) 11.5 - 15.0 fL Platelets 247 130 - 450 E9/L MPV 9.9 7.0 - 12.0 fL Neutrophils % 72.4 43.0 - 80.0 % Immature Granulocytes % 1.1 0.0 - 5.0 % Lymphocytes % 13.4 (L) 20.0 - 42.0 % Monocytes % 7.5 2.0 - 12.0 % Eosinophils % 5.4 0.0 - 6.0 % Basophils % 0.2 0.0 - 2.0 % Neutrophils Absolute 6.29 1.80 - 7.30 E9/L Immature Granulocytes # 0.10 E9/L Lymphocytes Absolute 1.17 (L) 1.50 - 4.00 E9/L Monocytes Absolute 0.65 0.10 - 0.95 E9/L Eosinophils Absolute 0.47 0.05 - 0.50 E9/L Basophils Absolute 0.02 0.00 - 0.20 E9/L Anisocytosis 2+ Polychromasia 1+ Hypochromia 1+ Poikilocytes 1+ Ovalocytes 1+ Radiology and other tests reviewed: XR CHEST PORTABLE Final Result Patchy perihilar and bibasilar infiltrates and pleural effusions which may be due to pneumonia or CHF. Assessment: Active Hospital Problems Diagnosis Date Noted Pneumonia [J18.9] 05/01/2019 Common variable immunodeficiency (HCC) [D83.9] 02/21/2019 Depression [F32.9] Persistent asthma with acute exacerbation [J45.901] Iron deficiency anemia [D50.9] 06/17/2018 Plan: 1. Pneumonia - now on nasal canula, SOB is mildly improved - DuoNeb tx q4h while awake - strep and legionella urine antigen negative - consulted Pulm - aerosols and steroids - consulted ID - doxycycline, levofloxacin, will give IgA depleted IVIG today, on acyclovir prophylaxis 2. Common Variable Immunodeficiency CVID - consulted ID as above Associated attestation - Yvette Rahman MD - 05/03/2019 11:11 AM EST [facility] Attending S: 29 y.o. female with pneumonia feeling a bit better this AM but still very SOB and coughing. Justtook her benadryl so she is sleepy. O: VS- Blood pressure (!) 131/57, pulse 95, temperature 98 F (36.7 C), temperature source Oral, resp. rate 20, height 6' (1.829 m), weight (!) 336 lb (152.4 kg), SpO2 92 %, unknown if currently . Exam is as noted by resident Impressions: Principal Problem: Pneumonia Active Problems: Persistent asthma with acute exacerbation Depression Common variable immunodeficiency (HCC) Iron deficiency anemia Resolved Problems: * No resolved hospital problems. * Plan: Pneumonia - ID and pulm following. Pt on oral doxy and oral levaquin. Persistent asthma with acute exac - pt on duonebs and dulera plus oxygen. Currently requiring 10L NC and occasional bipap. Common variable immunodeficiency - ID on board. Pt to receive IV immunoglobulins today with prep prior to help with reaction. Disp : pt still requiring a lot of oxygen. SW and Care Coordination is working with her in terms ofher home situation. Needs to wean down on O2 before she can go home. Attending Physician Statement I have reviewed the chart, including any radiology or labs, and seen the patient with the resident(s). I personally reviewed and performed abbott elements of the history and exam. I agree with the assessment, plan and orders as documented by the resident. Please refer to the resident note for additional information. Yvette Rahman * Genny Rosales RN - 05/03/2019 6:08 AM EST Pt's weight on standing scale is 336 lbs. * Genny Rosales RN - 05/03/2019 2:32 AM EST Pt removed from bipap per pt's request. Placed back on 6 L - 94% * Amanda Braga RCP - 05/03/2019 1:55 AM EST Date: 05/03/2019 Time: 1:55 AM Patient Placed On BIPAP/CPAP/ Non-Invasive Ventilation? Yes If no must comment. Facial area red/color change? No If YES are Blister/Lesion present?No If yes must notify nursing staff BIPAP/CPAP skin barrier? Yes Skin barrier type:mepilex Comments: RN called and pt wants to try and wear BiPAP at this time. Mepilex placed. Machine plugged into red outlet. Amanda Braga 05/03/19 0154 NIV Type Mode Bilevel Mask Type Full face mask Mask Size Medium Settings/Measurements IPAP 12 cmH20 CPAP/EPAP 6 cmH2O Rate Ordered 12 Resp 23 FiO2 50 % Vt Exhaled 837 mL Minute Volume 18.4 Liters Mask Leak (lpm) 38 lpm Comfort Level Good Using Accessory Muscles No SpO2 95 * Amanda Braga RCP - 05/02/2019 11:40 PM EST Date: 05/02/2019 Time: 11:40 PM Patient Placed On BIPAP/CPAP/ Non-Invasive Ventilation? No If no must comment. Facial area red/color change? No If YES are Blister/Lesion present?No If yes must notify nursing staff BIPAP/CPAP skin barrier? No Skin barrier type:na Comments: Pt declines BiPAP ordered in ER. Pt informed if she changes her mind to have RN call. Machine remains on standby. Amanda Braga * Genny Rosales RN - 05/02/2019 11:26 PM EST Respiratory in room when RN entered. Refused bipap. Pt 96% on 6 L resting comfortably. resp culturesent. * Ruth Ann Sommers RN - 05/02/2019 9:01 AM EST [facility] Quality Flow/Interdisciplinary Rounds Progress Note Quality Flow Rounds held on May 02, 2019 Disciplines Attending: Bedside Nurse, Cnc Wood Lathe Operator, Advertising Copy Writer and Nursing Unit Leadership Torrie Martinez was admitted on 05/01/2019 12:01 PM Anticipated Discharge Date: Expected Discharge Date: 05/03/19 Disposition: Vazquez Score: Vazquez Scale Score: 20 Readmission Risk Risk of Unplanned Readmission: 21 Discussed patient goal for the day, patient clinical progression, and barriers to discharge. The following Goal(s) of the Day/Commitment(s) have been identified: monitor SpO2 Ruth Ann Sommers May 02, 2019 * Ruth Ann Sommers RN - 05/02/2019 8:[address] Hoyt notified of pt c/o rib pain 01/15. Will await response. * Sandee Hoyt MD - 05/02/2019 7:30 AM EST [facility] Progress Note Chief complaint : Chief Complaint Patient presents with Shortness of Breath Subjective: No overnight problems. Patient describes feeling the same, no improvement yet. Complains of rib pain from coughing. Still on 6L O2. Past medical, surgical, family and social history were reviewed, non- contributory, and unchanged unless otherwise stated. Review of Systems Constitutional: Positive for fatigue. Negative for chills and fever. Respiratory: Positive for cough and shortness of breath. Negative for choking and wheezing. Cardiovascular: Positive for chest pain (ribs). Negative for palpitations and leg swelling. Gastrointestinal: Negative for abdominal pain, constipation, diarrhea, nausea and vomiting. Musculoskeletal: Negative for back pain and neck stiffness. Skin: Negative for pallor. Neurological: Positive for weakness. Negative for light-headedness, numbness and headaches. Psychiatric/Behavioral: Negative for confusion. Objective: BP (!) 109/56 Pulse 110 Temp 99.6 F (37.6 C) (Oral) Resp 18 Wt 155 lb 1.6 oz (70.4 kg) SpO2 92% BMI 21.04 kg/m Physical Exam Vitals signs reviewed. Constitutional: General: She is not in acute distress. Appearance: She is obese. She is ill-appearing. HENT: Head: Normocephalic and atraumatic. Eyes: Conjunctiva/sclera: Conjunctivae normal. Pupils: Pupils are equal, round, and reactive to light. Neck: Musculoskeletal: Normal range of motion. Vascular: No JVD. Cardiovascular: Rate and Rhythm: Regular rhythm. Tachycardia present. Heart sounds: Normal heart sounds. No murmur. Pulmonary: Breath sounds: No wheezing. Comments: Poor air movement at bases bilaterally with some crackles heard at left base. Moderate air movement in upper lobes with no coarse breath soundse Abdominal: General: Bowel sounds are normal. There is no distension. Palpations: Abdomen is soft. Musculoskeletal: Normal range of motion. General: No swelling. Skin: General: Skin is warm and dry. Capillary Refill: Capillary refill takes less than 2 seconds. Neurological: General: No focal deficit present. Mental Status: She is alert and oriented to person, place, and time. Labs: Recent Results (from the past 24 hour(s)) CBC Auto Differential Collection Time: 05/01/19 12:36 PM Result Value Ref Range WBC 13.7 (H) 4.5 - 11.5 E9/L RBC 4.99 3.50 - 5.50 E12/L Hemoglobin 10.3 (L) 11.5 - 15.5 g/dL Hematocrit 36.7 34.0 - 48.0 % MCV 73.5 (L) 80.0 - 99.9 fL MCH 20.6 (L) 26.0 - 35.0 pg MCHC 28.1 (L) 32.0 - 34.5 % RDW 17.1 (H) 11.5 - 15.0 fL Platelets 314 130 - 450 E9/L MPV 10.1 7.0 - 12.0 fL Neutrophils % 80.6 (H) 43.0 - 80.0 % Immature Granulocytes % 1.4 0.0 - 5.0 % Lymphocytes % 9.5 (L) 20.0 - 42.0 % Monocytes % 7.1 2.0 - 12.0 % Eosinophils % 1.3 0.0 - 6.0 % Basophils % 0.1 0.0 - 2.0 % Neutrophils Absolute 11.08 (H) 1.80 - 7.30 E9/L Immature Granulocytes # 0.19 E9/L Lymphocytes Absolute 1.30 (L) 1.50 - 4.00 E9/L Monocytes Absolute 0.97 (H) 0.10 - 0.95 E9/L Eosinophils Absolute 0.18 0.05 - 0.50 E9/L Basophils Absolute 0.02 0.00 - 0.20 E9/L Anisocytosis 1+ Poikilocytes 1+ Ovalocytes 1+ Target Cells 1+ MAGNESIUM Collection Time: 05/01/19 12:36 PM Result Value Ref Range Magnesium 2.1 1.6 - 2.6 mg/dL BASIC METABOLIC PANEL Collection Time: 05/01/19 12:36 PM Result Value Ref Range Sodium 136 132 - 146 mmol/L Potassium 4.2 3.5 - 5.0 mmol/L Chloride 92 (L) 98 - 107 mmol/L CO2 35 (H) 22 - 29 mmol/L Anion Gap 9 7 - 16 mmol/L Glucose 113 (H) 74 - 99 mg/dL BUN 6 6 - 20 mg/dL CREATININE 0.7 0.5 - 1.0 mg/dL GFR Non- >60 >=60 mL/min/1.73 GFR >60 Calcium 8.8 8.6 - 10.2 mg/dL TSH without Reflex Collection Time: 05/01/19 12:36 PM Result Value Ref Range TSH 1.720 0.270 - 4.200 uIU/mL RAPID INFLUENZA A/B ANTIGENS Collection Time: 05/01/19 12:36 PM Result Value Ref Range Influenza A by PCR Not Detected Not Detected Influenza B by PCR Not Detected Not Detected Brain Natriuretic Peptide Collection Time: 05/01/19 12:36 PM Result Value Ref Range Pro-BNP 219 (H) 0 - 125 pg/mL Blood Gas, Arterial Collection Time: 05/01/19 1:08 PM Result Value Ref Range Date Analyzed 20190501 Time Analyzed 1307 Source: Blood Arterial pH, Blood Gas 7.372 7.350 - 7.450 PCO2 61.7 (H) 35.0 - 45.0 mmHg PO2 55.0 (L) 60.0 - 100.0 mmHg HCO3 35.0 (H) 22.0 - 26.0 mmol/L B.E. 8.1 (H) -3.0 - 3.0 mmol/L O2 Sat 87.1 (L) 92.0 - 98.5 % O2Hb 86.1 (L) 94.0 - 97.0 % COHb 0.7 0.0 - 1.5 % MetHb 0.5 0.0 - 1.5 % O2 Content 13.5 mL/dL HHb 12.7 (H) 0.0 - 5.0 % tHb (est) 11.1 (L) 11.5 - 16.5 g/dL Mode NC- 6L Date Of Collection Time Collected Pt Temp 37.0 C [place] ID [id number] Lab [id number] Critical(s) Notified . No Critical Values EKG 12 Lead Collection Time: 05/01/19 3:08 PM Result Value Ref Range Ventricular Rate 121 BPM Atrial Rate 121 BPM P-R Interval 142 ms QRS Duration 88 ms Q-T Interval 322 ms QTc Calculation (Bazett) 457 ms P [place] 64 degrees R [place] 115 degrees T [place] 17 degrees Procalcitonin Collection Time: 05/01/19 6:01 PM Result Value Ref Range Procalcitonin 0.18 (H) 0.00 - 0.08 ng/mL Respiratory Panel, Molecular Collection Time: 05/01/19 6:30 PM Result Value Ref Range Adenovirus by PCR Not Detected Not Detected Bordetella parapertussis by PCR Not Detected Not Detected Bordetella pertussis by PCR Not Detected Not Detected Chlamydophilia pneumoniae by PCR Not Detected Not Detected Coronavirus 229E by PCR Not Detected Not Detected Coronavirus HKU1 by PCR Not Detected Not Detected Coronavirus NL63 by PCR Not Detected Not Detected Coronavirus OC43 by PCR Not Detected Not Detected Human Metapneumovirus by PCR Not Detected Not Detected Human Rhinovirus/Enterovirus by PCR Not Detected Not Detected Influenza A by PCR Not Detected Not Detected Influenza B by PCR Not Detected Not Detected Mycoplasma pneumoniae by PCR Not Detected Not Detected Parainfluenza Virus 1 by PCR Not Detected Not Detected Parainfluenza Virus 2 by PCR Not Detected Not Detected Parainfluenza Virus 3 by PCR Not Detected Not Detected Parainfluenza Virus 4 by PCR Not Detected Not Detected Respiratory Syncytial Virus by PCR Not Detected Not Detected , urine Collection Time: 05/01/19 10:00 PM Result Value Ref Range HCG(Urine) Test NEGATIVE NEGATIVE Basic Metabolic Panel w/ Reflex to MG Collection Time: 05/02/19 3:40 AM Result Value Ref Range Sodium 137 132 - 146 mmol/L Potassium reflex Magnesium 3.8 3.5 - 5.0 mmol/L Chloride 93 (L) 98 - 107 mmol/L CO2 35 (H) 22 - 29 mmol/L Anion Gap 9 7 - 16 mmol/L Glucose 104 (H) 74 - 99 mg/dL BUN 5 (L) 6 - 20 mg/dL CREATININE 0.6 0.5 - 1.0 mg/dL GFR Non- >60 >=60 mL/min/1.73 GFR >60 Calcium 8.1 (L) 8.6 - 10.2 mg/dL CBC auto differential Collection Time: 05/02/19 3:40 AM Result Value Ref Range WBC 11.7 (H) 4.5 - 11.5 E9/L RBC 4.71 3.50 - 5.50 E12/L Hemoglobin 9.6 (L) 11.5 - 15.5 g/dL Hematocrit 35.3 34.0 - 48.0 % MCV 74.9 (L) 80.0 - 99.9 fL MCH 20.4 (L) 26.0 - 35.0 pg MCHC 27.2 (L) 32.0 - 34.5 % RDW 17.2 (H) 11.5 - 15.0 fL Platelets 293 130 - 450 E9/L MPV 10.2 7.0 - 12.0 fL Neutrophils % 77.3 43.0 - 80.0 % Immature Granulocytes % 1.0 0.0 - 5.0 % Lymphocytes % 11.5 (L) 20.0 - 42.0 % Monocytes % 7.4 2.0 - 12.0 % Eosinophils % 2.5 0.0 - 6.0 % Basophils % 0.3 0.0 - 2.0 % Neutrophils Absolute 9.04 (H) 1.80 - 7.30 E9/L Immature Granulocytes # 0.12 E9/L Lymphocytes Absolute 1.35 (L) 1.50 - 4.00 E9/L Monocytes Absolute 0.86 0.10 - 0.95 E9/L Eosinophils Absolute 0.29 0.05 - 0.50 E9/L Basophils Absolute 0.03 0.00 - 0.20 E9/L Anisocytosis 1+ Hypochromia 1+ Poikilocytes 1+ Ovalocytes 1+ Radiology and other tests reviewed: XR CHEST PORTABLE Final Result Patchy perihilar and bibasilar infiltrates and pleural effusions which may be due to pneumonia or CHF. Assessment: Active Hospital Problems Diagnosis Date Noted Pneumonia [J18.9] 05/01/2019 Common variable immunodeficiency (HCC) [D83.9] 02/21/2019 Depression [F32.9] Persistent asthma with acute exacerbation [J45.901] Iron deficiency anemia [D50.9] 06/17/2018 Plan: 1. Pneumonia - continue BiPAP - DuoNeb tx q4h while awake - continue home umeclidinium inhaler, albuterol neb q6h prn for wheezing and substitute formulary mometasone-formoterol inhaler for home ICS/LABA. - strep and legionella urine antigen - pending - RVFA negative - procal 0.18 - consult Pulm - consult ID due to frequent pneumonia in setting of CVID 2. Common Variable Immunodeficiency CVID - had poor reaction to first IVIG infusion - consult ID for input Associated attestation - Yvette Rahman MD - 05/02/2019 11:08 AM EST [facility] Attending S: 29 y.o. female with common variable immunodeficiency who presented with SOB and feeling ill. Shehas been admitted to the hospital multiple times with respiratory illnesses - more than 4-5 times ayear. She still feels very ill today and is requiring oxygen more than her home needs. O: VS- Blood pressure 117/62, pulse 110, temperature 98.7 F (37.1 C), temperature source Oral, resp. rate 16, weight 155 lb 1.6 oz (70.4 kg), SpO2 94 %, unknown if currently . Exam is as noted by resident. Very little air movement at the bases, wheezes in the upper airways. Impressions: Principal Problem: Pneumonia Active Problems: Persistent asthma with acute exacerbation Depression Common variable immunodeficiency (HCC) Iron deficiency anemia Resolved Problems: * No resolved hospital problems. * Plan: Pneumonia with hypoxia - viral panel was negative, legionella and strep pneumo negative. Elevated pro misty. ID and pulm have been consulted due the complication of CVID and patient's multiple hospitaladmissions. Pt on cefepime and vanc day #2, on fluids at 100cc/hour. She is tachy and with high resp rate. Meets sepsis criteria. We are using duonebs and home dulera + spirva + singular/flonase/zytre c. CVID - pt sees ID but, like with her PCP, has trouble getting to the office because she is constantly sick. Pt on propyhlactic acylovir Depression - on zoloft. Stable. Disp ; awaiting pulm and ID consult recs. Thanks for your input. Attending Physician Statement I have reviewed the chart, including any radiology or labs, and seen the patient with the resident(s). I personally reviewed and performed abbott elements of the history and exam. I agree with the assessment, plan and orders as documented by the resident. Please refer to the resident note for additional information. Yvette Rahman * Eduardo Koo RCP - 05/01/2019 11:25 PM EST 05/01/192324 NIV Type Mode Bilevel (refused use remains bedside/standby) * Jessie Doss RN - 05/01/2019 7:53 PM EST procalcitonin and c reactive ordered. procalcitonin was done about an hour ago. Called lab and theywill add on c reactive lab ordered. * Ruth Ann Sommers RN - 05/01/2019 4:[address] Bray returned call. He will see pt tomorrow. * Ruth Ann Sommers RN - 05/01/2019 4:20 PM EST Consults called to Dr. Naylor & Dr. Bray. Will await response * Tessy Fleming RCP - 05/01/2019 2:36 PM EST Date: 05/01/2019 Time: 2:36 PM Patient Placed On BIPAP/CPAP/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 extremity edema Edema Herpes genitalis in women Genital herpes, unspecified [facility] Diagnosis Severe persistent asthma, uncomplicated Unspecified asthma [facility] Diagnosis Severe persistent asthma without complication- Primary Restrictive lung disease Other diseases of lung, not elsewhere classified Chronic hypoxemic respiratory failure (HCC) Chronic respiratory failure Morbid obesity (HCC) Morbid obesity Immune deficiency disorder (HCC) Unspecified immunity deficiency [facility] Diagnosis Noncompliance- Primary Personal history of noncompliance with medical treatment, presenting hazards to health Conjunctivitis of both eyes, unspecified conjunctivitis type [facility] Diagnosis Sore throat- Primary Acute pharyngitis Acute otitis media, bilateral Unspecified otitis media [facility] Diagnosis Severe persistent asthma with acute exacerbation- Primary Unspecified asthma, with exacerbation Acute on chronic respiratory failure with hypoxemia (HCC) Pneumonia of left lower lobe due to infectious organism Lingular pneumonia Pneumonia, organism unspecified Pleural effusion Unspecified pleural effusion Severe persistent asthma without complication Pleural effusion Unspecified pleural effusion Obesity, Class III, BMI >= 40 Morbid obesity Acute on chronic respiratory failure with hypoxemia (HCC) Left lower lobe pneumonia Pneumonia, organism unspecified Oxygen dependent- Primary Dependence on supplemental oxygen Lower extremity edema Edema Hypokalemia 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 alf current use of diuretic Morbid obesity (HCC) Morbid obesity Dependence on continuous supplemental oxygen Obesity, Class III, BMI 40-49.9 (morbid obesity) (HCC) Morbid obesity documented in this encounter [facility] note* Diagnosis Severe persistent asthma with acute exacerbation- Primary Unspecified asthma, with exacerbation Acute on chronic respiratory failure with hypoxemia (HCC) Pneumonia of left lower lobe due to infectious organism Lingular pneumonia Pneumonia, organism unspecified Pleural effusion Unspecified pleural effusion Severe persistent asthma without complication Pleural effusion Unspecified pleural effusion Obesity, Class III, BMI >= 40 Morbid obesity Acute on chronic respiratory failure with hypoxemia (HCC) Left lower lobe pneumonia Pneumonia, organism unspecified Lower extremity edema- Primary Edema documented in this encounter [facility] note* Diagnosis Severe persistent asthma with acute exacerbation- Primary Unspecified asthma, with exacerbation Acute on chronic respiratory failure with hypoxemia (HCC) Pneumonia of left lower lobe due to infectious organism Lingular pneumonia Pneumonia, organism unspecified Pleural effusion Unspecified pleural effusion Severe persistent asthma without complication Pleural effusion Unspecified pleural effusion Obesity, Class III, BMI >= 40 Morbid obesity Acute on chronic respiratory failure with hypoxemia (HCC) Left lower lobe pneumonia Pneumonia, organism unspecified Hypoxia- Primary Hypoxemia Headache, unspecified headache type documented in this encounter [facility] note* Diagnosis Severe persistent asthma with acute exacerbation- Primary Unspecified asthma, with exacerbation Acute on chronic respiratory failure with hypoxemia (HCC) Pneumonia of left lower lobe due to infectious organism Lingular pneumonia Pneumonia, organism unspecified Pleural effusion Unspecified pleural effusion Severe persistent asthma without complication Pleural effusion Unspecified pleural effusion Obesity, Class III, BMI >= 40 Morbid obesity Acute on chronic respiratory failure with hypoxemia (HCC) Left lower lobe pneumonia Pneumonia, organism unspecified Oxygen dependent- Primary Dependence on supplemental oxygen Lower extremity edema Edema Hypokalemia 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 alf current use of diuretic Morbid obesity (HCC) Morbid obesity Dependence on continuous supplemental oxygen Severe persistent asthma, uncomplicated Unspecified asthma Gastroesophageal reflux disease without esophagitis Esophageal reflux Medication management Encounter for long-term (current) use of other medications Encounter for screening for diabetes mellitus Screening for diabetes mellitus Iron deficiency anemia, unspecified iron deficiency anemia type Encounter for lipid screening for cardiovascular disease Screening for lipoid disorders Current severe episode of major depressive disorder without psychotic features without prior episode (HCC) MARCUS (generalized anxiety disorder) Generalized anxiety disorder documented in this encounter [facility] note* Diagnosis Severe persistent asthma with acute exacerbation- Primary Unspecified asthma, with exacerbation Acute on chronic respiratory failure with hypoxemia (HCC) Pneumonia of left lower lobe due to infectious organism Lingular pneumonia Pneumonia, organism unspecified Pleural effusion Unspecified pleural effusion Severe persistent asthma without complication Pleural effusion Unspecified pleural effusion Obesity, Class III, BMI >= 40 Morbid obesity Acute on chronic respiratory failure with hypoxemia (HCC) Left lower lobe pneumonia Pneumonia, organism unspecified Herpes genitalis in women Genital herpes, unspecified documented in this encounter [facility] note* Diagnosis Severe persistent asthma with acute exacerbation- Primary Unspecified asthma, with exacerbation Acute on chronic respiratory failure with hypoxemia (HCC) Pneumonia of left lower lobe due to infectious organism Lingular pneumonia Pneumonia, organism unspecified Pleural effusion Unspecified pleural effusion Severe persistent asthma without complication Pleural effusion Unspecified pleural effusion Obesity, Class III, BMI >= 40 Morbid obesity Acute on chronic respiratory failure with hypoxemia (HCC) Left lower lobe pneumonia Pneumonia, organism unspecified Iron deficiency anemia, unspecified iron deficiency anemia type- Primary documented in this encounter [facility] note* Diagnosis Severe persistent asthma with acute exacerbation (HCC)- Primary Unspecified asthma, with exacerbation Acute on chronic respiratory failure with hypoxemia (HCC) Pneumonia of left lower lobe due to infectious organism Lingular pneumonia Pneumonia, organism unspecified Pleural effusion Unspecified pleural effusion Severe persistent asthma without complication (HCC) Pleural effusion Unspecified pleural effusion Obesity, Class III, BMI >= 40 Morbid obesity Acute on chronic respiratory failure with hypoxemia (HCC) Left lower lobe pneumonia Pneumonia, organism unspecified Severe persistent asthma without complication (HCC) Restrictive lung disease Other diseases of lung, not elsewhere classified documented in this encounter [facility] note* Diagnosis Severe persistent asthma with acute exacerbation (HCC)- Primary Unspecified asthma, with exacerbation Acute on chronic respiratory failure with hypoxemia (HCC) Pneumonia of left lower lobe due to infectious organism Lingular pneumonia Pneumonia, organism unspecified Pleural effusion Unspecified pleural effusion Severe persistent asthma without complication (HCC) Pleural effusion Unspecified pleural effusion Obesity, Class III, BMI >= 40 Morbid obesity Acute on chronic respiratory failure with hypoxemia (HCC) Left lower lobe pneumonia Pneumonia, organism unspecified Severe persistent asthma without complication (HCC) Restrictive lung disease Other diseases of lung, not elsewhere classified Chronic hypoxemic respiratory failure (HCC) Chronic respiratory failure documented in this encounter [facility] note* Diagnosis Severe persistent asthma with acute exacerbation (HCC)- Primary Unspecified asthma, with exacerbation Acute on chronic respiratory failure with hypoxemia (HCC) Pneumonia of left lower lobe due to infectious organism Lingular pneumonia Pneumonia, organism unspecified Pleural effusion Unspecified pleural effusion Severe persistent asthma without complication (HCC) Pleural effusion Unspecified pleural effusion Obesity, Class III, BMI >= 40 Morbid obesity Acute on chronic respiratory failure with hypoxemia (HCC) Left lower lobe pneumonia Pneumonia, organism unspecified Severe persistent asthma without complication (HCC) documented in this encounter [facility] note* Diagnosis Severe persistent asthma with acute exacerbation (HCC)- Primary Unspecified asthma, with exacerbation Acute on chronic respiratory failure with hypoxemia (HCC) Pneumonia of left lower lobe due to infectious organism Lingular pneumonia Pneumonia, organism unspecified Pleural effusion Unspecified pleural effusion Severe persistent asthma without complication (HCC) Pleural effusion Unspecified pleural effusion Obesity, Class III, BMI >= 40 Morbid obesity Acute on chronic respiratory failure with hypoxemia (HCC) Left lower lobe pneumonia Pneumonia, organism unspecified Severe persistent asthma without complication (HCC) documented in this encounter [facility] note* Diagnosis Severe persistent asthma with acute exacerbation (HCC)- Primary Unspecified asthma, with exacerbation Acute on chronic respiratory failure with hypoxemia (HCC) Pneumonia of left lower lobe due to infectious organism Lingular pneumonia Pneumonia, organism unspecified Pleural effusion Unspecified pleural effusion Severe persistent asthma without complication (HCC) Pleural effusion Unspecified pleural effusion Obesity, Class III, BMI >= 40 Morbid obesity Acute on chronic respiratory failure with hypoxemia (HCC) Left lower lobe pneumonia Pneumonia, organism unspecified Severe persistent asthma without complication (HCC)- Primary Restrictive lung disease Other diseases of lung, not elsewhere classified Chronic hypoxemic respiratory failure (HCC) Chronic respiratory failure Morbid obesity (HCC) Morbid obesity Severe persistent asthma without complication (HCC) Severe persistent asthma without complication (HCC) Restrictive lung disease Other diseases of lung, not elsewhere classified Severe persistent asthma without complication (HCC) Severe persistent asthma without complication (HCC) Restrictive lung disease Other diseases of lung, not elsewhere classified Chronic hypoxemic respiratory failure (HCC) Chronic respiratory failure documented in this encounter [facility] note* Diagnosis Severe persistent asthma with acute exacerbation (HCC)- Primary Unspecified asthma, with exacerbation Acute on chronic respiratory failure with hypoxemia (HCC) Pneumonia of left lower lobe due to infectious organism Lingular pneumonia Pneumonia, organism unspecified Pleural effusion Unspecified pleural effusion Severe persistent asthma without complication (HCC) Pleural effusion Unspecified pleural effusion Obesity, Class III, BMI >= 40 Morbid obesity Acute on chronic respiratory failure with hypoxemia (HCC) Left lower lobe pneumonia Pneumonia, organism unspecified Preoperative testing- Primary Preoperative examination, unspecified BMI 60.0-69.9, adult (HCC) Body Mass Index 60.0-69.9, adult BOLA (obstructive sleep apnea) Obstructive sleep apnea (adult) (pediatric) [facility] Diagnosis Severe persistent asthma with acute exacerbation (HCC)- Primary Unspecified asthma, with exacerbation Acute on chronic respiratory failure with hypoxemia (HCC) Pneumonia of left lower lobe due to infectious organism Lingular pneumonia Pneumonia, organism unspecified Pleural effusion Unspecified pleural effusion Severe persistent asthma without complication (HCC) Pleural effusion Unspecified pleural effusion Obesity, Class III, BMI >= 40 Morbid obesity Acute on chronic respiratory failure with hypoxemia (HCC) Left lower lobe pneumonia Pneumonia, organism unspecified BOLA (obstructive sleep apnea) Obstructive sleep apnea (adult) (pediatric) Preoperative testing Preoperative examination, unspecified BMI 60.0-69.9, adult (HCC) Body Mass Index 60.0-69.9, adult documented in this encounter [facility] note* Diagnosis Severe persistent asthma with acute exacerbation (HCC)- Primary Unspecified asthma, with exacerbation Acute on chronic respiratory failure with hypoxemia (HCC) Pneumonia of left lower lobe due to infectious organism Lingular pneumonia Pneumonia, organism unspecified Pleural effusion Unspecified pleural effusion Severe persistent asthma without complication (HCC) Pleural effusion Unspecified pleural effusion Obesity, Class III, BMI >= 40 Morbid obesity Acute on chronic respiratory failure with hypoxemia (HCC) Left lower lobe pneumonia Pneumonia, organism unspecified Acute otitis media, left- Primary Unspecified otitis media documented in this encounter [facility] note* Diagnosis Severe persistent asthma with acute exacerbation (HCC)- Primary Unspecified asthma, with exacerbation Acute on chronic respiratory failure with hypoxemia (HCC) Pneumonia of left lower lobe due to infectious organism Lingular pneumonia Pneumonia, organism unspecified Pleural effusion Unspecified pleural effusion Severe persistent asthma without complication (HCC) Pleural effusion Unspecified pleural effusion Obesity, Class III, BMI >= 40 Morbid obesity Acute on chronic respiratory failure with hypoxemia (HCC) Left lower lobe pneumonia Pneumonia, organism unspecified Morbid obesity (HCC)- Primary Morbid obesity Dietary counseling and surveillance Dietary surveillance and counseling documented in this encounter [facility] note* Diagnosis Severe persistent asthma with acute exacerbation (HCC)- Primary Unspecified asthma, with exacerbation Acute on chronic respiratory failure with hypoxemia (HCC) Pneumonia of left lower lobe due to infectious organism Lingular pneumonia Pneumonia, organism unspecified Pleural effusion Unspecified pleural effusion Severe persistent asthma without complication (HCC) Pleural effusion Unspecified pleural effusion Obesity, Class III, BMI >= 40 Morbid obesity Acute on chronic respiratory failure with hypoxemia (HCC) Left lower lobe pneumonia Pneumonia, organism unspecified BOLA (obstructive sleep apnea) Obstructive sleep apnea (adult) (pediatric) Preoperative testing Preoperative examination, unspecified BMI 60.0-69.9, adult (HCC) Body Mass Index 60.0-69.9, adult documented in this encounter [facility] note* Diagnosis Severe persistent asthma with acute exacerbation (HCC)- Primary Unspecified asthma, with exacerbation Acute on chronic respiratory failure with hypoxemia (HCC) Pneumonia of left lower lobe due to infectious organism Lingular pneumonia Pneumonia, organism unspecified Pleural effusion Unspecified pleural effusion Severe persistent asthma without complication (HCC) Pleural effusion Unspecified pleural effusion Obesity, Class III, BMI >= 40 Morbid obesity Acute on chronic respiratory failure with hypoxemia (HCC) Left lower lobe pneumonia Pneumonia, organism unspecified BOLA (obstructive sleep apnea) Obstructive sleep apnea (adult) (pediatric) Preoperative testing Preoperative examination, unspecified BMI 60.0-69.9, adult (HCC) Body Mass Index 60.0-69.9, adult documented in this encounter [facility] note* Diagnosis Severe persistent asthma with acute exacerbation (HCC)- Primary Unspecified asthma, with exacerbation Acute on chronic respiratory failure with hypoxemia (HCC) Pneumonia of left lower lobe due to infectious organism Lingular pneumonia Pneumonia, organism unspecified Pleural effusion Unspecified pleural effusion Severe persistent asthma without complication (HCC) Pleural effusion Unspecified pleural effusion Obesity, Class III, BMI >= 40 Morbid obesity Acute on chronic respiratory failure with hypoxemia (HCC) Left lower lobe pneumonia Pneumonia, organism unspecified Medication management- Primary Encounter for long-term (current) use of other medications Lower extremity edema Edema documented in this encounter [facility] note* Diagnosis Severe persistent asthma with acute exacerbation (HCC)- Primary Unspecified asthma, with exacerbation Acute on chronic respiratory failure with hypoxemia (HCC) Pneumonia of left lower lobe due to infectious organism Lingular pneumonia Pneumonia, organism unspecified Pleural effusion Unspecified pleural effusion Severe persistent asthma without complication (HCC) Pleural effusion Unspecified pleural effusion Obesity, Class III, BMI >= 40 Morbid obesity Acute on chronic respiratory failure with hypoxemia (HCC) Left lower lobe pneumonia Pneumonia, organism unspecified Current severe episode of major depressive disorder without psychotic features without prior episode (HCC) MARCUS (generalized anxiety disorder) Generalized anxiety disorder documented in this encounter [facility] note* Diagnosis Severe persistent asthma with acute exacerbation (HCC)- Primary Unspecified asthma, with exacerbation Acute on chronic respiratory failure with hypoxemia (HCC) Pneumonia of left lower lobe due to infectious organism Lingular pneumonia Pneumonia, organism unspecified Pleural effusion Unspecified pleural effusion Severe persistent asthma without complication (HCC) Pleural effusion Unspecified pleural effusion Obesity, Class III, BMI >= 40 Morbid obesity Acute on chronic respiratory failure with hypoxemia (HCC) Left lower lobe pneumonia Pneumonia, organism unspecified Herpes genitalis in women Genital herpes, unspecified documented in this encounter [facility] note* Diagnosis Severe persistent asthma with acute exacerbation (HCC)- Primary Unspecified asthma, with exacerbation Acute on chronic respiratory failure with hypoxemia (HCC) Pneumonia of left lower lobe due to infectious organism Lingular pneumonia Pneumonia, organism unspecified Pleural effusion Unspecified pleural effusion Severe persistent asthma without complication (HCC) Pleural effusion Unspecified pleural effusion Obesity, Class III, BMI >= 40 Morbid obesity Acute on chronic respiratory failure with hypoxemia (HCC) Left lower lobe pneumonia Pneumonia, organism unspecified Severe persistent asthma, uncomplicated (HCC) Unspecified asthma Iron deficiency anemia, unspecified iron deficiency anemia type Lower extremity edema Edema Current severe episode of major depressive disorder without psychotic features without prior episode (HCC) MARCUS (generalized anxiety disorder) Generalized anxiety disorder documented in this encounter [facility] note* Diagnosis Severe persistent asthma with acute exacerbation (HCC)- Primary Unspecified asthma, with exacerbation Acute on chronic respiratory failure with hypoxemia (HCC) Pneumonia of left lower lobe due to infectious organism Lingular pneumonia Pneumonia, organism unspecified Pleural effusion Unspecified pleural effusion Severe persistent asthma without complication (HCC) Pleural effusion Unspecified pleural effusion Obesity, Class III, BMI >= 40 Morbid obesity Acute on chronic respiratory failure with hypoxemia (HCC) Left lower lobe pneumonia Pneumonia, organism unspecified Morbid obesity (HCC)- Primary Morbid obesity Dietary counseling and surveillance Dietary surveillance and counseling documented in this encounter [facility] note* Diagnosis Severe persistent asthma with acute exacerbation (HCC)- Primary Unspecified asthma, with exacerbation Acute on chronic respiratory failure with hypoxemia (HCC) Pneumonia of left lower lobe due to infectious organism Lingular pneumonia Pneumonia, organism unspecified Pleural effusion Unspecified pleural effusion Severe persistent asthma without complication (HCC) Pleural effusion Unspecified pleural effusion Obesity, Class III, BMI >= 40 Morbid obesity Acute on chronic respiratory failure with hypoxemia (HCC) Left lower lobe pneumonia Pneumonia, organism unspecified Morbid obesity (HCC)- Primary Morbid obesity Dietary counseling and surveillance Dietary surveillance and counseling documented in this encounter [facility] note* Diagnosis Severe persistent asthma with acute exacerbation (HCC)- Primary Unspecified asthma, with exacerbation Acute on chronic respiratory failure with hypoxemia (HCC) Pneumonia of left lower lobe due to infectious organism Lingular pneumonia Pneumonia, organism unspecified Pleural effusion Unspecified pleural effusion Severe persistent asthma without complication (HCC) Pleural effusion Unspecified pleural effusion Obesity, Class III, BMI >= 40 Morbid obesity Acute on chronic respiratory failure with hypoxemia (HCC) Left lower lobe pneumonia Pneumonia, organism unspecified BOLA (obstructive sleep apnea)- Primary Obstructive sleep apnea (adult) (pediatric) Chronic insomnia Insomnia, unspecified Sleep-related hypoventilation due to medical condition Sleep related hypoventilation/hypoxemia in conditions classifiable elsewhere Chronic hypoxemic respiratory failure (HCC) Chronic respiratory failure Morbid obesity (HCC) Morbid obesity documented in this encounter [facility] note* Diagnosis Severe persistent asthma with acute exacerbation (HCC)- Primary Unspecified asthma, with exacerbation Acute on chronic respiratory failure with hypoxemia (HCC) Pneumonia of left lower lobe due to infectious organism Lingular pneumonia Pneumonia, organism unspecified Pleural effusion Unspecified pleural effusion Severe persistent asthma without complication (HCC) Pleural effusion Unspecified pleural effusion Obesity, Class III, BMI >= 40 Morbid obesity Acute on chronic respiratory failure with hypoxemia (HCC) Left lower lobe pneumonia Pneumonia, organism unspecified Morbid obesity (HCC)- Primary Morbid obesity documented in this encounter [facility] course Narrative No data available for this section [facility] Discharge instructions* Attachments The following attachments cannot be sent through Care Everywhere. * Video: Care for Minor Yen ([place]) [facility] [employer] [facility] Phone: Hospital Discharge instructions No data available for this section [facility] note No data available for this section [facility] Reason for referral (narrative)* Outpatient Procedure (Routine) - Pending Review Specialty Diagnoses / Procedures Referred By Contac t Referred To Contact RESPIRATORY [facility] Diagnoses Severe persistent asthma without complication Procedures NITRIC OXIDE, EXHALED NITRIC OXIDE GAS DETERMINATION Bere Holcomb MD [address] [place] [address] [address] Referral ID Status Reason Start Date Expiration Date Visits Requested Visits Authorized [id number] Pending Review Auto-Generat ed Referral 07/28/2023 08/26/2024 1 1 * Outpatient Procedure (Routine) - Pending Review Specialty Diagnoses / Procedures Referred By Suleman chang Referred To Contact RESPIRATORY GRAYSON Diagnoses Severe persistent asthma without complication Procedures SPIROMETRY - BASELINE AND POST DILATOR BRNCDILAT RSPSE SPMTRY PRE&POST-BRNCDILAT ADMBere Velasquez MD [address] [place] [address] [address] Referral ID Status Reason Start Date Expiration Date Visits Requested Visits Authorized [id number] Pending Review Auto-Generat ed Referral 07/28/2023 08/26/2024 1 1 [facility]ative[facility]No reason for referral information [facility] Work Phone: Reason for visit Narrative* Treatment Plan (Routine) Status Reason Specialty Diagnoses / Procedures Re ferred By Contact Referred To Contact Authorized Diagnoses Common variable immunodeficiency (HCC) Procedures [place] GAMMAGARD LIQUID INJECTION IMMUNE GLOBULIN, POWDER CutronOsman espinoza MD [address] [place] [address] [place] [id number] [facility] [address] [place] [id number] [facility] [employer] Phone: reason for visit Narrative* Treatment Plan and Therapy Plan (Routine) Status Reason Specialty Diagnoses / Procedures Re ferred By Contact Referred To Contact Authorized Diagnoses Common variable immunodeficiency (HCC) Procedures [place] GAMMAGARD LIQUID INJECTION IMMUNE GLOBULIN, POWDER Osman Culp MD [address] [place] [address] [place] [address] [employer] Phone: reason for visit Narrative* Treatment Plan and Therapy Plan (Routine) - Authorized Specialty Diagnoses / Procedures Referred By Contac t Referred To Contact Diagnoses Common variable immunodeficiency (HCC) Procedures [place] GAMMAGARD LIQUID INJECTION IMMUNE GLOBULIN, POWDER Osman Culp MD [address] [place] [address] [place] [address] Referral ID Status Reason Start Date Expiration Date V isits Requested Visits Authorized [id number] Authorized 07/12/2021 09/11/2021 99 99 [employer] Phone: reason for visit Narrative* Treatment Plan and Therapy Plan (Routine) - Authorized Specialty Diagnoses / Procedures Referred By Contac t Referred To Contact Diagnoses Common variable immunodeficiency (HCC) Procedures [place] GAMMAGARD LIQUID INJECTION Jermain Jaimes MD [address] [place] [address] [facility] [address] [place] [address] Referral ID Status Reason Start Date Expiration Date V isits Requested Visits Authorized [id number] Authorized 09/30/2021 09/30/2022 99 99 [employer] Phone: Discharge Instructions * Attachments The following attachments cannot be sent through Care Everywhere. * Strep Throat ([place]) documented in this encounter* Instructions* Sandee Hoyt MD - 02/27/2019 Please follow up with Dr. Mcnulty as soon as possible. Bring to your appointment all of the inhalersand asthma medications that you take at home. Please do the same at your appointment with Dr. Hoyt. A prescription has been sent for Advair. If you do not have your BREO inhaler at home please fill and take the Advair instead. If you do have the BREO please continue using that and you do not have to picking tech the Advair. Please follow up with Dr. Diaz in her Clinic where you will be starting Immunoglobulin Infusions. documented in this encounter* Instructions* Naomy Avelar RN - 03/19/2019 * Attachments The following attachments cannot be sent through Care Everywhere. * IMMUNE GLOBULIN (INTRAVENOUS) (IGIV) (BULGARIAN) documented in this encounter* Instructions* Shefali Guo DO - 04/01/2019 Follow-up with primary care provider for reassessment. Return to the emergency department symptoms worsen. Complete the antibiotic course prescribed to you. Contact your primary care provider within the day or 2. Be sure to stay well- hydrated. Use Tylenol or ibuprofen if you have any fever needs. * Attachments The following attachments cannot be sent through Care Everywhere. * Pneumonia ([place]) documented in this encounter History of Present Illness * Deborah Carranza - 01/18/2019 4:10 PM EDT CLINICAL PHARMACY NOTE: MEDS TO [facility] Patient?: No Total # of Prescriptions Filled: 2 The following medications were delivered to the patient: Amoxicillin pot clavul 875-125 mg Total # of Interventions Completed: 5 Time Spent (min): 45 Additional Documentation: * Mona Diaz MD - 01/18/2019 12:42 PM EDT CC- cough Subjective: The patient is awake and alert. Tolerating medications. Reports no side effects. Afebrile. 10 ROS otherwise negative unless otherwise specified above. Objective: Vitals: 01/18/19 0915 BP: 115/62 Pulse: 75 Resp: 16 Temp: 98 F (36.7 C) SpO2: 95% General Appearance: Awake, alert , no acute distress. 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 Will f/u in the office in 2 weeks Monitor labs Will follow with you * Osman Mcnulty MD - 01/18/2019 9:13 AM EDT [facility] Patient: Torrie Martinez : 1990 Encounter Date: 01/18/2019 Encounter Time: 9:13 AM Date of Admission: .01/15/2019 4:45 PM Consulting Physician: Primary Care Physician: No primary care provider on file. None None PROBLEM LIST: Patient Active Problem List Diagnosis Community acquired bacterial pneumonia Chronic asthma, moderate persistent, uncomplicated Gastroesophageal reflux disease without esophagitis Major depressive disorder Pneumonia due to organism Reason for Consultation: Asthma Exacerbation Ms. Martinez is a 28 y/o female with past medical history noted for GERD, hypoxia, severe asthma previously treated at [facility] that is here at [facility] for asthma exacerbation. She is on oxygen 2 -3 L with activity at home. CC: Resting in bed on baseline O2 of 2L. Cough and wheezing improved since yesterday. PAST MEDICAL HISTORY: Past Medical History: Diagnosis Date Asthma Major depressive disorder 01/15/2019 Vitiligo PAST SURGICAL HISTORY: Past Surgical History: Procedure Laterality Date SECTION KNEE ARTHROSCOPY Bilateral SINUS SURGERY TONSILLECTOMY FAMILY HISTORY: Family History Problem Relation Age of Onset No Known Problems Mother Lung Cancer Father SOCIAL HISTORY: Social History Socioeconomic History Marital status: Single Spouse name: Not on file Number of children: Not on file Years of education: Not on file Highest education level: Not on file Occupational History Not on file Social Needs Financial resource strain: Not on file Food insecurity: Worry: Not on file Inability: Not on file Transportation needs: Medical: Not on file Non-medical: Not on file Tobacco Use Smoking status: Former Smoker Last attempt to quit: 12/06/2009 Years since quittin.1 Smokeless tobacco: Never Used Substance and Sexual Activity Alcohol use: No Comment: occasional Drug use: No Sexual activity: Yes Partners: Male Lifestyle Physical activity: Days per week: Not on file Minutes per session: Not on file Stress: Not on file Relationships Social connections: Talks on phone: Not on file Gets together: Not on file Attends gnosticism service: Not on file Active member of club or organization: Not on file Attends meetings of clubs or organizations: Not on file Relationship status: Not on file Intimate partner violence: Fear of current or ex partner: Not on file Emotionally abused: Not on file Physically abused: Not on file Forced sexual activity: Not on file Other Topics Concern Not on file Social History Narrative Not on file Social History Tobacco Use Smoking Status Former Smoker Last attempt to quit: 12/06/2009 Years since quittin.1 Smokeless Tobacco Never Used Social History Substance and Sexual Activity Alcohol Use No Comment: occasional Social History Substance and Sexual Activity Drug Use No OCCUPATIONAL HISTORY: - no asbestos, silica, beryllium exposures HISTORY: HOME MEDICATIONS: Prior to Admission medications Medication Sig Start Date End Date Taking? Authorizing Provider fluticasone (FLONASE) 50 MCG/ACT nasal spray 1 spray by Each Nostril route daily Yes Historical Provider, ferrous sulfate 325 (65 Fe) MG tablet Take 325 mg by mouth daily (with breakfast) Yes Historical Provider, montelukast (SINGULAIR) 10 MG tablet Take 10 mg by mouth nightly Yes Historical Provider, famotidine (PEPCID) 20 MG tablet Take 20 mg by mouth 2 times daily Yes Historical Provider, sertraline (ZOLOFT) 50 MG tablet Take 50 mg by mouth daily Yes Historical Provider, albuterol (PROVENTIL) (2.5 MG/3ML) 0.083% nebulizer solution Take 2.5 mg by nebulization every 6 hours as needed for Wheezing Yes Historical Provider, Fluticasone Furoate-Vilanterol (BREO ELLIPTA) 200-25 MCG/INH AEPB Inhale into the lungs daily Yes Historical Provider, Oxygen Concentrator Yes Historical Provider, albuterol sulfate HFA 108 (90 Base) MCG/ACT inhaler Inhale 2 puffs into the lungs every 6 hours as needed for Wheezing Yes Historical Provider, Umeclidinium [place] (INCRUSE ELLIPTA) 62.5 MCG/INH AEPB Inhale into the lungs 2 times daily Historical Provider, CURRENT MEDICATIONS: Current Facility-Administered Medications: methylPREDNISolone sodium (SOLU- MEDROL) injection 40 mg,40 mg, Intravenous, Q12H benzocaine-menthol (CEPACOL SORE THROAT) lozenge 1 lozenge, 1 lozenge, Oral, PRN famotidine (PEPCID) tablet 20 mg, 20 mg, Oral, BID fluticasone (FLONASE) 50 MCG/ACT nasal spray 1 spray, 1 spray, Each Nostril, Daily montelukast (SINGULAIR) tablet 10 mg, 10 mg, Oral, Nightly sertraline (ZOLOFT) tablet 50 mg, 50 mg, Oral, Daily ipratropium-albuterol (DUONEB) nebulizer solution 1 ampule, 1 ampule, Inhalation, Q4H [place] mometasone-formoterol (DULERA) 200-5 MCG/ACT inhaler 2 puff, 2 puff, Inhalation, BID AND MDI Treatment, , , BID sodium chloride flush 0.9 % injection 10 mL, 10 mL, Intravenous, 2 times per day sodium chloride flush 0.9 % injection 10 mL, 10 mL, Intravenous, PRN potassium chloride (KLOR-CON M) extended release tablet 40 mEq, 40 mEq, Oral, PRN OR potassium bicarb-citric acid (EFFER-K) effervescent tablet 40 mEq, 40 mEq, Oral, PRN OR potassium [id number] mEq/100 mL IVPB (Peripheral Line), 10 mEq, Intravenous, PRN magnesium sulfate 1 g in dextrose 5% 100 mL IVPB, 1 g, Intravenous, PRN magnesium hydroxide (MILK OF MAGNESIA) 400 MG/5ML suspension 30 mL, 30 mL, Oral, Daily PRN ondansetron (ZOFRAN) injection 4 mg, 4 mg, Intravenous, Q6H PRN enoxaparin (LOVENOX) injection 40 mg, 40 mg, Subcutaneous, Daily acetaminophen (TYLENOL) tablet 650 mg, 650 mg, Oral, Q4H PRN cefTRIAXone (ROCEPHIN) 1 g in dextrose 5 % 50 mL IVPB (vial-mate), 1 g, Intravenous, Q24H IV MEDICATIONS: ALLERGIES: No Known Allergies PHYSICAL EXAMINATION: VITAL SIGNS: BP 132/82 Pulse 72 Temp 98.8 F (37.1 C) (Oral) Resp 18 Ht 6' (1.829 m) Wt 155 lb 14.4 oz (70.7 kg) SpO2 95% BMI 21.14 kg/m Wt Readings from Last 3 Encounters: 01/18/19 155 lb 14.4 oz (70.7 kg) 12/12/18 290 lb (131.5 kg) 09/28/15 220 lb (99.8 kg) Temp Readings from Last 3 Encounters: 01/17/19 98.8 F (37.1 C) (Oral) 12/12/18 98.7 F (37.1 C) (Oral) 09/29/15 97.8 F (36.6 C) (Oral) TMAX: BP Readings from Last 3 Encounters: 01/17/19 132/82 12/12/18 122/70 09/29/15 106/56 Pulse Readings from Last 3 Encounters: 01/17/19 72 12/12/18 104 09/29/15 71 CURRENT PULSE OXIMETRY: SpO2: 95 % 24HR PULSE OXIMETRY RANGE: SpO2 Av % Min: 95 % Max: 95 % CVP: VENTILATOR SETTINGS (if applicable): Additional Respiratory Assessments Pulse: 72 Resp: 18 SpO2: 95 % ETCO2: Peak Inspiratory Pressure: End-Inspiratory Plateau Pressure: ABG: No results for input(s): PH, PO2, PCO2, HCO3, BE, O2SAT, METHB, O2HB, COHB, O2CON, HHB, THB in the last 72 hours. IV ACCESS: NUTRITION: DIET GENERAL; INTAKE/OUTPUTS: I/O last 3 completed shifts: In: 400 [P.O.:400] Out: - Intake/Output Summary (Last 24 hours) at 01/18/2019 09 Last data filed at 01/17/2019 1454 Gross per 24 hour Intake 280 ml Output Net 280 ml General Appearance: alert and oriented to person, place and time, well-developed and well-nourished, in no acute distress Neck: neck supple, trachea midline Pulmonary/Chest: decreased breath sounds, no accessory muscles of inspiration, no wheezing Cardiovascular: normal rate, regular rhythm, normal S1 and S2, no murmurs, rubs, clicks, no JVD Abdomen: soft, obese, non-tender, non-distended, normal bowel sounds Extremities: no cyanosis, no clubbing, no edema Musculoskeletal: LUI Neurologic: Ox3, appropriate responses to questions asked LABS/IMAGING: CBC: Lab Results Component Value Date WBC 8.9 01/18/2019 HGB 11.0 (L) 01/18/2019 HCT 37.2 01/18/2019 MCV 70.9 (L) 01/18/2019 PLT 318 01/18/2019 LYMPHOPCT 31.5 01/18/2019 RBC 5.25 01/18/2019 MCH 21.0 (L) 01/18/2019 MCHC 29.6 (L) 01/18/2019 RDW 17.2 (H) 01/18/2019 NEUTOPHILPCT 61.2 01/18/2019 MONOPCT 5.6 01/18/2019 BASOPCT 0.1 01/18/2019 NEUTROABS 5.45 01/18/2019 LYMPHSABS 2.81 01/18/2019 MONOSABS 0.50 01/18/2019 EOSABS 0.01 (L) 01/18/2019 BASOSABS 0.01 01/18/2019 Recent Labs 01/18/19 0427 01/17/19 0300 01/16/19 0530 WBC 8.9 7.3 4.3* HGB 11.0* 10.9* 11.0* HCT 37.2 36.3 37.1 MCV 70.9* 71.2* 71.3* PLT 318 276 232 BMP: Recent Labs 01/16/19 0530 01/17/19 0300 01/18/19 0427 NA 141 143 141 K 4.5 4.5 4.0 CL 106 106 103 CO2 27 27 29 BUN 8 9 8 CREATININE 0.7 0.6 0.7 MG: Lab Results Component Value Date MG 2.3 01/18/2019 Ca/Phos: Lab Results Component Value Date CALCIUM 8.7 01/18/2019 Amylase: Lab Results Component Value Date AMYLASE 28 09/28/2015 Lipase: Lab Results Component Value Date LIPASE 16 09/28/2015 LIVER PROFILE: Recent Labs 01/16/19 0530 01/17/19 0300 01/18/19 0427 AST 12 10 10 ALT 10 10 9 BILIDIR <0.2 <0.2 <0.2 BILITOT <0.2 <0.2 <0.2 ALKPHOS 71 63 62 PT/INR: No results for input(s): PROTIME, INR in the last 72 hours. APTT: No results for input(s): APTT in the last 72 hours. Cardiac Enzymes: No results found for: CKTOTAL, CKMB, CKMBINDEX, TROPONINI Hgb A1C: No results found for: LABA1C No results found for: EAG JAYNA: Lab Results Component Value Date JAYNA NEGATIVE 01/16/2019 ESR: No results found for: SEDRATE CRP: Lab Results Component Value Date CRP 7.5 (H) 01/15/2019 D Dimer: No results found for: DDIMER Folate and B12: No results found for: [id number], No results found for: FOLATE Lactic Acid: Lab Results Component Value Date LACTA 0.7 01/15/2019 Ammonia: Cortisol: Thyroid Studies: No results found for: TSH, W1EWAHG, N4PKSNJ, THYROIDAB CT Chest WO Contrast Final Result 1. Bibasilar atelectasis left greater than right with evidence of mild fusiform bronchiectasis as outlined above. Suspected mucous plugging as described. 2. 4 mm pleural-based nodule on the right. 3. Mild cardiomegaly. 4. Splenomegaly. XR CHEST STANDARD (2 VW) Final Result Air space disease , at the left lung base which could be related to mild atelectasis or mild pneumonia CHEST CT 01/17/19 CT Chest 06/15/2018: Lingular and left lower lobe pneumonia with associated small pleural effusion Bronchial wall thickening with distal mucus plugging consistent with asthma/bronchitis. Mild mosaic attenuation consistent with small vessel airway disease. Elongated spleen, complete extent not visualized. 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 Will need updated PFT on follow up as an outpatient. 6.) Continue duonebs q 4 hours for now. Charlotte Solorzano, JORGEA Attending Attestation Note: Patient seen and examined with CHILD STUDY TEAM DIRECTOR. I agree with above. In addition, the following apply: - outpatient IVIG supplementation - PO augmentin - PO steroid taper - OK to D/C home with follow up in 2-3 weeks [facility] [place] 01/18/2019 12:54 PM * Brendan Srinivasan RN - 01/17/2019 4:53 PM EDT Pt refused urine test for , says she is on her period, and will sign a refusal form. * Nayeli Salas RN - 01/17/2019 3:[address] Mcnulty messaged via [employer] regarding CT scan-awaiting response. Responded-see order. * Osman Mcnulty MD - 01/17/2019 10:24 AM EDT [facility] PULMONARY/CRITICAL CARE CONSULTATION NOTE Patient: Torrie Martinez : 1990 Encounter Date: 01/17/2019 Encounter Time: 10:24 AM Date of Admission: .01/15/2019 4:45 PM Consulting Physician: Primary Care Physician: No primary care provider on file. None None PROBLEM LIST: Patient Active Problem List Diagnosis Community acquired bacterial pneumonia Chronic asthma, moderate persistent, uncomplicated Gastroesophageal reflux disease without esophagitis Major depressive disorder Pneumonia due to organism Reason for Consultation: Asthma Exacerbation Ms. Martinez is a 28 y/o female with past medical history noted for GERD, hypoxia, severe asthma previously treated at [facility] that is here at [facility] for asthma exacerbation. She is on oxygen 2 -3 L with activity at home. CC: Resting in bed on baseline O2 of 2L. Reports frequent cough and wheezing overnight with some dyspnea when out of bed but improving slowly since admission. PAST MEDICAL HISTORY: Past Medical History: Diagnosis Date Asthma Major depressive disorder 01/15/2019 Vitiligo PAST SURGICAL HISTORY: Past Surgical History: Procedure Laterality Date SECTION KNEE ARTHROSCOPY Bilateral SINUS SURGERY TONSILLECTOMY FAMILY HISTORY: Family History Problem Relation Age of Onset No Known Problems Mother Lung Cancer Father SOCIAL HISTORY: Social History Socioeconomic History Marital status: Single Spouse name: Not on file Number of children: Not on file Years of education: Not on file Highest education level: Not on file Occupational History Not on file Social Needs Financial resource strain: Not on file Food insecurity: Worry: Not on file Inability: Not on file Transportation needs: Medical: Not on file Non-medical: Not on file Tobacco Use Smoking status: Former Smoker Last attempt to quit: 12/06/2009 Years since quittin.1 Smokeless tobacco: Never Used Substance and Sexual Activity Alcohol use: No Comment: occasional Drug use: No Sexual activity: Yes Partners: Male Lifestyle Physical activity: Days per week: Not on file Minutes per session: Not on file Stress: Not on file Relationships Social connections: Talks on phone: Not on file Gets together: Not on file Attends gnosticism service: Not on file Active member of club or organization: Not on file Attends meetings of clubs or organizations: Not on file Relationship status: Not on file Intimate partner violence: Fear of current or ex partner: Not on file Emotionally abused: Not on file Physically abused: Not on file Forced sexual activity: Not on file Other Topics Concern Not on file Social History Narrative Not on file Social History Tobacco Use Smoking Status Former Smoker Last attempt to quit: 12/06/2009 Years since quittin.1 Smokeless Tobacco Never Used Social History Substance and Sexual Activity Alcohol Use No Comment: occasional Social History Substance and Sexual Activity Drug Use No OCCUPATIONAL HISTORY: - no asbestos, silica, beryllium exposures HISTORY: HOME MEDICATIONS: Prior to Admission medications Medication Sig Start Date End Date Taking? Authorizing Provider fluticasone (FLONASE) 50 MCG/ACT nasal spray 1 spray by Each Nostril route daily Yes Historical Provider, ferrous sulfate 325 (65 Fe) MG tablet Take 325 mg by mouth daily (with breakfast) Yes Historical Provider, montelukast (SINGULAIR) 10 MG tablet Take 10 mg by mouth nightly Yes Historical Provider, famotidine (PEPCID) 20 MG tablet Take 20 mg by mouth 2 times daily Yes Historical Provider, sertraline (ZOLOFT) 50 MG tablet Take 50 mg by mouth daily Yes Historical Provider, albuterol (PROVENTIL) (2.5 MG/3ML) 0.083% nebulizer solution Take 2.5 mg by nebulization every 6 hours as needed for Wheezing Yes Historical Provider, Fluticasone Furoate-Vilanterol (BREO ELLIPTA) 200-25 MCG/INH AEPB Inhale into the lungs daily Yes Historical Provider, Oxygen Concentrator Yes Historical Provider, albuterol sulfate HFA 108 (90 Base) MCG/ACT inhaler Inhale 2 puffs into the lungs every 6 hours as needed for Wheezing Yes Historical Provider, Umeclidinium [place] (INCRUSE ELLIPTA) 62.5 MCG/INH AEPB Inhale into the lungs 2 times daily Historical Provider, CURRENT MEDICATIONS: Current Facility-Administered Medications: methylPREDNISolone sodium (SOLU- MEDROL) injection 40 mg,40 mg, Intravenous, Q12H benzocaine-menthol (CEPACOL SORE THROAT) lozenge 1 lozenge, 1 lozenge, Oral, PRN famotidine (PEPCID) tablet 20 mg, 20 mg, Oral, BID fluticasone (FLONASE) 50 MCG/ACT nasal spray 1 spray, 1 spray, Each Nostril, Daily montelukast (SINGULAIR) tablet 10 mg, 10 mg, Oral, Nightly sertraline (ZOLOFT) tablet 50 mg, 50 mg, Oral, Daily ipratropium-albuterol (DUONEB) nebulizer solution 1 ampule, 1 ampule, Inhalation, Q4H WA mometasone-formoterol (DULERA) 200-5 MCG/ACT inhaler 2 puff, 2 puff, Inhalation, BID AND MDI Treatment, , , BID sodium chloride flush 0.9 % injection 10 mL, 10 mL, Intravenous, 2 times per day sodium chloride flush 0.9 % injection 10 mL, 10 mL, Intravenous, PRN potassium chloride (KLOR-CON M) extended release tablet 40 mEq, 40 mEq, Oral, PRN OR potassium bicarb-citric acid (EFFER-K) effervescent tablet 40 mEq, 40 mEq, Oral, PRN OR potassium [id number] mEq/100 mL IVPB (Peripheral Line), 10 mEq, Intravenous, PRN magnesium sulfate 1 g in dextrose 5% 100 mL IVPB, 1 g, Intravenous, PRN magnesium hydroxide (MILK OF MAGNESIA) 400 MG/5ML suspension 30 mL, 30 mL, Oral, Daily PRN ondansetron (ZOFRAN) injection 4 mg, 4 mg, Intravenous, Q6H PRN enoxaparin (LOVENOX) injection 40 mg, 40 mg, Subcutaneous, Daily acetaminophen (TYLENOL) tablet 650 mg, 650 mg, Oral, Q4H PRN cefTRIAXone (ROCEPHIN) 1 g in dextrose 5 % 50 mL IVPB (vial-mate), 1 g, Intravenous, Q24H IV MEDICATIONS: ALLERGIES: No Known Allergies PHYSICAL EXAMINATION: VITAL SIGNS: BP 124/71 Pulse 64 Temp 97.8 F (36.6 C) (Oral) Resp 16 Ht 6' (1.829 m) Wt 275 lb (124.7 kg) SpO2 93% BMI 37.30 kg/m Wt Readings from Last 3 Encounters: 01/15/19 275 lb (124.7 kg) 12/12/18 290 lb (131.5 kg) 09/28/15 220 lb (99.8 kg) Temp Readings from Last 3 Encounters: 01/17/19 97.8 F (36.6 C) (Oral) 12/12/18 98.7 F (37.1 C) (Oral) 09/29/15 97.8 F (36.6 C) (Oral) TMAX: BP Readings from Last 3 Encounters: 01/17/19 124/71 12/12/18 122/70 09/29/15 106/56 Pulse Readings from Last 3 Encounters: 01/17/19 64 12/12/18 104 09/29/15 71 CURRENT PULSE OXIMETRY: SpO2: 93 % 24HR PULSE OXIMETRY RANGE: SpO2 Av % Min: 93 % Max: 93 % CVP: VENTILATOR SETTINGS (if applicable): Additional Respiratory Assessments Pulse: 64 Resp: 16 SpO2: 93 % ETCO2: Peak Inspiratory Pressure: End-Inspiratory Plateau Pressure: ABG: No results for input(s): PH, PO2, PCO2, HCO3, BE, O2SAT, METHB, O2HB, COHB, O2CON, HHB, THB in the last 72 hours. IV ACCESS: NUTRITION: DIET GENERAL; INTAKE/OUTPUTS: I/O last 3 completed shifts: In: 180 [P.O.:180] Out: - No intake or output data in the 24 hours ending 01/17/19 1024 General Appearance: alert and oriented to person, place and time, well-developed and well-nourished, in no acute distress Neck: neck supple and non tender, trachea midline Pulmonary/Chest: decreased breath sounds, no accessory muscles of inspiration - (+) end-expiratory focal wheezes Cardiovascular: normal rate, regular rhythm, normal S1 and S2, no murmurs, rubs, clicks, no JVD Abdomen: soft, obese, non-tender, non-distended, normal bowel sounds Extremities: no cyanosis, no clubbing, no edema Musculoskeletal: LUI Neurologic: Ox3, appropriate responses to questions asked LABS/IMAGING: CBC: Lab Results Component Value Date WBC 7.3 01/17/2019 HGB 10.9 (L) 01/17/2019 HCT 36.3 01/17/2019 MCV 71.2 (L) 01/17/2019 PLT 276 01/17/2019 LYMPHOPCT 24.7 01/17/2019 RBC 5.10 01/17/2019 MCH 21.4 (L) 01/17/2019 MCHC 30.0 (L) 01/17/2019 RDW 16.7 (H) 01/17/2019 NEUTOPHILPCT 69.4 01/17/2019 MONOPCT 5.0 01/17/2019 BASOPCT 0.1 01/17/2019 NEUTROABS 5.04 01/17/2019 LYMPHSABS 1.79 01/17/2019 MONOSABS 0.36 01/17/2019 EOSABS 0.01 (L) 01/17/2019 BASOSABS 0.01 01/17/2019 Recent Labs 01/17/19 0300 01/16/19 0530 01/15/19 1728 WBC 7.3 4.3* 6.1 HGB 10.9* 11.0* 11.4* HCT 36.3 37.1 38.5 MCV 71.2* 71.3* 71.4* PLT 276 232 233 BMP: Recent Labs 01/15/19 1728 01/16/19 0530 01/17/19 0300 NA 139 141 143 K 4.5 4.5 4.5 CL 101 106 106 CO2 30* 27 27 BUN 8 8 9 CREATININE 0.8 0.7 0.6 MG: Lab Results Component Value Date MG 2.2 01/17/2019 Ca/Phos: Lab Results Component Value Date CALCIUM 8.4 (L) 01/17/2019 Amylase: Lab Results Component Value Date AMYLASE 28 09/28/2015 Lipase: Lab Results Component Value Date LIPASE 16 09/28/2015 LIVER PROFILE: Recent Labs 01/15/19 1728 01/16/19 0530 01/17/19 0300 AST 18 12 10 ALT 10 10 10 BILIDIR -- <0.2 <0.2 BILITOT 0.2 <0.2 <0.2 ALKPHOS 71 71 63 PT/INR: No results for input(s): PROTIME, INR in the last 72 hours. APTT: No results for input(s): APTT in the last 72 hours. Cardiac Enzymes: No results found for: CKTOTAL, CKMB, CKMBINDEX, TROPONINI Hgb A1C: No results found for: LABA1C No results found for: EAG JAYNA: No results found for: JAYNA ESR: No results found for: SEDRATE CRP: Lab Results Component Value Date CRP 7.5 (H) 01/15/2019 D Dimer: No results found for: DDIMER Folate and B12: No results found for: [id number], No results found for: FOLATE Lactic Acid: Lab Results Component Value Date LACTA 0.7 01/15/2019 Ammonia: Cortisol: Thyroid Studies: No results found for: TSH, B4HNFON, A7FXFNF, THYROIDAB XR CHEST STANDARD (2 VW) Final Result Air space disease , at the left lung base which could be related to mild atelectasis or mild pneumonia CT Chest 06/15/2018: Lingular and left lower lobe pneumonia with associated small pleural effusion Bronchial wall thickening with distal mucus plugging consistent with asthma/bronchitis. Mild mosaic attenuation consistent with small vessel airway disease. Elongated spleen, complete extent not visualized. ASSESSMENT: 1.) Acute Exacerbation of Asthma 2.) Chronic Hypoxic Respiratory Failure 3.) Adenovirus Viral Pneumonia 4.) Acute Rhinovirus/Enterovirus Viral Tracheobronchitis 5.) Grp A Streptococcus Pneumonia 6.) Obesity 7.) Vitiligo PLAN: 1.) duoneb, dulera, singulair, IV steroids, rocephin to continue 2.) await JAYNA, IgE, IgG, IgA, IgM, IgG subclass, DS DNA ab 3.) CT chest WO Contrast - in isolation 4.) consideration for bronchoscopy if patient condition does not improve 5.) DVT Prophylaxis IG subclasses are low, IgG 30; remaining labs pending Still with significant cough and wheezing overnight, so continue solu-medrol bid for now. Charlotte Solorzano, JORGE A Attending Attestation Note: Patient seen and examined with CHILD STUDY TEAM DIRECTOR. I agree with above. In addition, the following apply: - all immunoglobulins low (IgG, IgA, IgM) - ID consultation for possible CVID (common variable immune deficiency) vs CONSTANCE (combined immunodeficiency) - steroid taper - O2, IS, wean O2 as able - CT chest pending at this time Osman Mcnulty 01/17/2019 1:22 PM * Nayeli Salas RN - 01/17/2019 7:39 AM EDT [facility] Quality Flow/Interdisciplinary Rounds Progress Note Quality Flow Rounds held on January 17, 2019 Disciplines Attending: Bedside Nurse, Cnc Wood Lathe Operator, Advertising Copy Writer and Nursing Unit Leadership Torrie Martinez was admitted on 01/15/2019 4:45 PM Anticipated Discharge Date: Expected Discharge Date: 01/21/19 Disposition: Vazquez Score: Vazquez Scale Score: 22 Readmission Risk Risk of Unplanned Readmission: 14 Discussed patient goal for the day, patient clinical progression, and barriers to discharge. The following Goal(s) of the Day/Commitment(s) have been identified: Wean IV steroids, PO antibiotics, check Pulmonary plan. Nayeli Salas January 17, 2019 * Louann Dickens RN - 01/16/2019 1:26 PM EDT Sputum obtained and sent to lab. * Kelsey Montoya RN - 01/16/2019 12:[address] Mcnulty consulted * Louann Dickens RN - 01/16/2019 11:59 AM EDT Contact and droplet isol initiated per protocol * Jermain Menezes RN - 01/16/2019 7:20 AM EDT [facility] Quality Flow/Interdisciplinary Rounds Progress Note Quality Flow Rounds held on January 16, 2019 Disciplines Attending: Bedside Nurse, Cnc Wood Lathe Operator, Advertising Copy Writer and Nursing Unit Leadership Torrie Martinez was admitted on 01/15/2019 4:45 PM Anticipated Discharge Date: Expected Discharge Date: 01/21/19 Disposition: Vazquez Score: Vazquez Scale Score: 21 Readmission Risk Risk of Unplanned Readmission: 12 Discussed patient goal for the day, patient clinical progression, and barriers to discharge. The following Goal(s) of the Day/Commitment(s) have been identified: Check D/C on PO abx Jermain Menezes January 16, 2019 documented in this encounter* Shiraz Robbins MD - 02/27/2019 2:30 PM EDT Breathing okay, still with cough with some sputum. On 2 liters O2. Tolerating CPT but not noticing a benefit. Additional Respiratory Assessments Pulse: 85 Resp: 14 SpO2: 95 % Current Facility-Administered Medications: predniSONE (DELTASONE) tablet 20 mg, 20 mg, Oral, Daily, Shiraz Robbins MD, 20 mg at 02/27/19926 doxycycline hyclate (VIBRAMYCIN) capsule 100 mg, 100 mg, Oral, 2 times per day, Mona Diaz MD, 100mg at 02/27/19926 levofloxacin (LEVAQUIN) tablet 750 mg, 750 mg, Oral, Daily, Mona Diaz MD, 750 mg at 02/27/19926 cetirizine (ZYRTEC) tablet 10 mg, 10 mg, Oral, Daily, Eduardo Allen DO, 10 mg at 02/27/19935 famotidine (PEPCID) tablet 20 mg, 20 mg, Oral, BID, Eduardo Allen DO, 20 mg at 02/27/19926 ferrous sulfate tablet 325 mg, 325 mg, Oral, Daily with breakfast, Eduardo Allen DO, 325 mg at 02/27/19926 montelukast (SINGULAIR) tablet 10 mg, 10 mg, Oral, Nightly, Eduardo Allen DO, 10 mg at 02/26/192005 sertraline (ZOLOFT) tablet 100 mg, 100 mg, Oral, Daily, Eduardo Allen DO, 100 mg at 02/27/19926 sodium chloride flush 0.9 % injection 10 mL, 10 mL, Intravenous, 2 times per day, Eduardo Allen DO, 10 mL at 02/27/19926 sodium chloride flush 0.9 % injection 10 mL, 10 mL, Intravenous, PRN, Eduardo Allen DO, 10 mL at1 0649 magnesium hydroxide (MILK OF MAGNESIA) 400 MG/5ML suspension 30 mL, 30 mL, Oral, Daily PRN, DO Zafar ondansetron (ZOFRAN) injection 4 mg, 4 mg, Intravenous, Q6H PRN, Eduardo Allen DO enoxaparin (LOVENOX) injection 40 mg, 40 mg, Subcutaneous, Daily, Eduardo Allen DO albuterol (PROVENTIL) nebulizer solution 2.5 mg, 2.5 mg, Nebulization, Q4H WA, Eduardo Allen DO,2.5 mg at 02/27/19 1254 mometasone-formoterol (DULERA) 200-5 MCG/ACT inhaler 2 puff, 2 puff, Inhalation, BID, 2 puff at 02/27/19 1008 AND MDI Treatment, , , BID, Eduardo Allen DO acetaminophen (TYLENOL) tablet 650 mg, 650 mg, Oral, Q4H PRN, Eduardo Allen DO guaiFENesin tablet 400 mg, 400 mg, Oral, Q8H, Eduardo Allen DO, 400 mg at 02/27/19 1301 BP 133/66 Pulse 85 Temp 98.1 F (36.7 C) (Oral) Resp 14 Ht 6' 1 (1.854 m) Wt (!) 338 lb (153.3 kg) LMP 02/12/2019 SpO2 95% BMI 44.59 kg/m General: No distress Chest: Symmetric, no accessory use Heart: RRR Lungs: Diminished bs but clear Abdomen: Soft, nt, nd Extremities: No edema Intake/Output Summary (Last 24 hours) at 02/27/2019 1430 Last data filed at 02/27/2019 1255 Gross per 24 hour Intake 780 ml Output Net 780 ml CBC with Differential: Lab Results Component Value Date WBC 10.3 02/27/2019 RBC 4.98 02/27/2019 HGB 10.6 02/27/2019 HCT 36.9 02/27/2019 PLT 330 02/27/2019 MCV 74.1 02/27/2019 MCH 21.3 02/27/2019 MCHC 28.7 02/27/2019 RDW 18.6 02/27/2019 NRBC 0.0 02/26/2019 METASPCT 0.9 02/26/2019 LYMPHOPCT 25.6 02/27/2019 MONOPCT 5.7 02/27/2019 BASOPCT 0.3 02/27/2019 MONOSABS 0.59 02/27/2019 LYMPHSABS 2.65 02/27/2019 EOSABS 0.06 02/27/2019 BASOSABS 0.03 02/27/2019 BMP: Lab Results Component Value Date NA 141 02/27/2019 K 4.5 02/27/2019 CL 102 02/27/2019 CO2 29 02/27/2019 BUN 11 02/27/2019 LABALBU 3.8 01/18/2019 CREATININE 0.8 02/27/2019 CALCIUM 9.1 02/27/2019 GFRAA >60 02/27/2019 LABGLOM >60 02/27/2019 GLUCOSE 100 02/27/2019 CXR viewed no change LLL infiltrate IMPRESSION: LLL pneumonia on abx per ID (Levoflox, doxy) Okay to home on above abx. Asthma exacerbation added prednisone and seems okay. Mild acute hypoxic respiratory failure RA 84% sat, on low flow O2 which she has at home so okay to discharge and fu with Dr. Mcnulty.. Shiraz Robbins 02/27/2019 2:30 PM * Beni Tabor MD - 02/27/2019 8:50 AM EDT [facility] Progress Note Subjective: Chief complaint shortness of breath, cough The patient is awake and alert. No problems overnight. Continues to complain of pleuritic chest discomfort. States cough is improved somewhat, less wheezing. Ambulation in room did show desaturation.She has home oxygen. Denies abdominal pain. Tolerating diet. No nausea or vomiting. Past medical, surgical, family and social history were reviewed, non- contributory, and unchanged unless otherwise stated. Objective: BP 123/63 Pulse 55 Temp 97.7 F (36.5 C) (Oral) Resp 16 Ht 6' 1 (1.854 m) Wt (!) 338 lb (153.3 kg) LMP 02/12/2019 SpO2 93% BMI 44.59 kg/m General alert cooperative no acute distress Heart: RRR, no murmurs, gallops, or rubs. Lungs: CTA bilaterally, no wheeze, rales or rhonchi Abd: bowel sounds present, nontender, nondistended, no masses CBC with Differential: Lab Results Component Value Date WBC 10.3 02/27/2019 RBC 4.98 02/27/2019 HGB 10.6 02/27/2019 HCT 36.9 02/27/2019 PLT 330 02/27/2019 MCV 74.1 02/27/2019 MCH 21.3 02/27/2019 MCHC 28.7 02/27/2019 RDW 18.6 02/27/2019 NRBC 0.0 02/26/2019 METASPCT 0.9 02/26/2019 LYMPHOPCT 25.6 02/27/2019 MONOPCT 5.7 02/27/2019 BASOPCT 0.3 02/27/2019 MONOSABS 0.59 02/27/2019 LYMPHSABS 2.65 02/27/2019 EOSABS 0.06 02/27/2019 BASOSABS 0.03 02/27/2019 CMP: Lab Results Component Value Date NA 141 02/27/2019 K 4.5 02/27/2019 CL 102 02/27/2019 CO2 29 02/27/2019 BUN 11 02/27/2019 CREATININE 0.8 02/27/2019 GFRAA >60 02/27/2019 LABGLOM >60 02/27/2019 GLUCOSE 100 02/27/2019 PROT 5.5 01/18/2019 LABALBU 3.8 01/18/2019 CALCIUM 9.1 02/27/2019 BILITOT <0.2 01/18/2019 ALKPHOS 62 01/18/2019 AST 10 01/18/2019 ALT 9 01/18/2019 Assessment: Active Hospital Problems Diagnosis Date Noted Adenovirus infection [B34.0] 02/24/2019 Common variable immunodeficiency (HCC) [D83.9] 02/21/2019 Persistent asthma with acute exacerbation [J45.901] Rhinovirus infection [B34.8] Pneumonia due to organism [J18.9] Plan: Continue supportive measures. Will discuss with pulmonology later in the day. Anticipate possible discharge. Cortisol was noted to be low, but is on prednisone supplementation. If not improving couldconsider change to Solu-Cortef * Debbi Arellano - 02/26/2019 3:48 PM EDT CLINICAL PHARMACY NOTE: MEDS TO [facility] Select Patient?: No Total # of Prescriptions Filled: 2 The following medications were delivered to the patient: Levofloxacin 750mg doxyclcline 100mg Total # of Interventions Completed: 5 Time Spent (min): 45 Additional Documentation: * Shiraz Robbins MD - 02/26/2019 2:21 PM EDT Coughing clear, some dyspnea, punched sensation in left chest. Rare wheezing. On 2 liters O2. Tolerating CPT. Additional Respiratory Assessments Pulse: 86 Resp: 18 SpO2: 90 % Current Facility-Administered Medications: predniSONE (DELTASONE) tablet 20 mg, 20 mg, Oral, Daily, Shiraz Robbins MD, 20 mg at 02/26/19901 doxycycline hyclate (VIBRAMYCIN) capsule 100 mg, 100 mg, Oral, 2 times per day, Mona Diaz MD, 100mg at 02/26/19901 levofloxacin (LEVAQUIN) tablet 750 mg, 750 mg, Oral, Daily, Mona Diaz MD, 750 mg at 02/26/19901 cetirizine (ZYRTEC) tablet 10 mg, 10 mg, Oral, Daily, Eduardo Allen DO, 10 mg at 02/26/19 0902 famotidine (PEPCID) tablet 20 mg, 20 mg, Oral, BID, Eduardo Allen DO, 20 mg at 02/26/19 09 ferrous sulfate tablet 325 mg, 325 mg, Oral, Daily with breakfast, Eduardo Allen DO, 325 mg at 02/26/19 09 montelukast (SINGULAIR) tablet 10 mg, 10 mg, Oral, Nightly, Eduardo Allen DO, 10 mg at 02/25/19 2259 sertraline (ZOLOFT) tablet 100 mg, 100 mg, Oral, Daily, Eduardo Allen DO, 100 mg at 02/26/19 09 sodium chloride flush 0.9 % injection 10 mL, 10 mL, Intravenous, 2 times per day, Eduardo Allen DO, 10 mL at 02/26/19 09 sodium chloride flush 0.9 % injection 10 mL, 10 mL, Intravenous, PRN, Eduardo Allen DO, 10 mL at1 0649 magnesium hydroxide (MILK OF MAGNESIA) 400 MG/5ML suspension 30 mL, 30 mL, Oral, Daily PRN, DO Zafar ondansetron (ZOFRAN) injection 4 mg, 4 mg, Intravenous, Q6H PRN, Eduardo Allen DO enoxaparin (LOVENOX) injection 40 mg, 40 mg, Subcutaneous, Daily, Eduardo Allen DO albuterol (PROVENTIL) nebulizer solution 2.5 mg, 2.5 mg, Nebulization, Q4H WA, Eduardo Allen DO,2.5 mg at 02/26/19 1324 mometasone-formoterol (DULERA) 200-5 MCG/ACT inhaler 2 puff, 2 puff, Inhalation, BID, 2 puff at 02/26/19 1059 AND MDI Treatment, , , BID, Eduardo Allen DO acetaminophen (TYLENOL) tablet 650 mg, 650 mg, Oral, Q4H PRN, Eduardo Allen DO guaiFENesin tablet 400 mg, 400 mg, Oral, Q8H, Eduardo Allen DO, 400 mg at 02/26/19 1235 BP 112/60 Pulse 86 Temp 97.5 F (36.4 C) (Axillary) Resp 18 Ht 6' 1 (1.854 m) Wt (!) 338 lb (153.3 kg) LMP 02/12/2019 SpO2 90% BMI 44.59 kg/m General: No distress Chest: Symmetric, no accessory use Heart: RRR Lungs: Diminished bs Abdomen: Soft, nt, nd Extremities: No edema Intake/Output Summary (Last 24 hours) at 02/26/2019 1421 Last data filed at 02/26/2019 1230 Gross per 24 hour Intake 720 ml Output Net 720 ml CBC with Differential: Lab Results Component Value Date WBC 9.9 02/26/2019 RBC 4.98 02/26/2019 HGB 10.6 02/26/2019 HCT 37.2 02/26/2019 PLT 318 02/26/2019 MCV 74.7 02/26/2019 MCH 21.3 02/26/2019 MCHC 28.5 02/26/2019 RDW 18.5 02/26/2019 NRBC 0.0 02/26/2019 METASPCT 0.9 02/26/2019 LYMPHOPCT 21.7 02/26/2019 MONOPCT 7.8 02/26/2019 BASOPCT 0.0 02/26/2019 MONOSABS 0.79 02/26/2019 LYMPHSABS 2.18 02/26/2019 EOSABS 0.09 02/26/2019 BASOSABS 0.00 02/26/2019 BMP: Lab Results Component Value Date NA 138 02/26/2019 K 4.9 02/26/2019 CL 101 02/26/2019 CO2 30 02/26/2019 BUN 10 02/26/2019 LABALBU 3.8 01/18/2019 CREATININE 0.7 02/26/2019 CALCIUM 9.1 02/26/2019 GFRAA >60 02/26/2019 LABGLOM >60 02/26/2019 GLUCOSE 96 02/26/2019 CXR viewed no change LLL infiltrate IMPRESSION: LLL pneumonia on abx per ID (Levoflox, doxy) Added CPT. Asthma exacerbation added prednisone and seems okay. Mild acute hypoxic respiratory failure RA 84% sat, on low flow O2. Shiraz Robbins 02/26/2019 2:21 PM * Mona Diaz MD - 02/26/2019 1:58 PM EDT CC- SOB Subjective: The patient is awake and alert. Tolerating medications. Reports no side effects. Afebrile. 10 ROS otherwise negative unless otherwise specified above. Objective: Vitals: 02/26/19 1229 BP: Pulse: Resp: Temp: SpO2: 90% General Appearance: Awake, alert , no acute distress. 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 resp cx-< 25 PMN, GPCC, GNB rare oral doxycyline and levaquin for 7 days IVIG infusions will be started in 2 weeks * Ever Sommers RN - 02/26/2019 12:28 PM EDT Oxygen saturation on room air at rest 89%. Oxygen saturation on room air with ambulation 84%. 2L NCapplied. Oxygen saturation on 2L NC recovered to 90%. * Ever Sommers RN - 02/26/2019 10:00 AM EDT Asked patient if we could attempt to wean and take off oxygen at this time. States she is going to sleep so she does not want to try right now. Will try again later. * Sandee Hoyt MD - 02/26/2019 7:06 AM EDT [facility] Progress Note Subjective: Feels better since admission not much shortness of breath at present Currently on 2L O2 Still having productive cough but less frequently than yesterday. Produced significant sputum afterchest physio yesterday and felt relief Still having left lower chest pain but it is improved after chest physio Past medical, surgical, family and social history were reviewed, non- contributory, and unchanged unless otherwise stated. Objective: BP 115/66 Pulse 52 Temp 97.8 F (36.6 C) (Oral) Resp 16 Ht 6' 1 (1.854 m) Wt (!) 338 lb (153.3 kg) LMP 02/12/2019 SpO2 92% BMI 44.59 kg/m Heart: RRR, no murmurs, gallops, or rubs. Lungs: Decreased breath sounds bilaterally but no wheezing or rales or rhonchi. Coarse breath sounds on left base improved Abd: bowel sounds present, nontender, nondistended, no masses Extrem: No clubbing, cyanosis, or edema Skin: hypopigmented patches consistent with vitiligo on the elbows and hands Recent Results (from the past 24 hour(s)) Basic Metabolic Panel w/ Reflex to MG Collection Time: 02/26/19 5:45 AM Result Value Ref Range Sodium 138 132 - 146 mmol/L Potassium reflex Magnesium 4.9 3.5 - 5.0 mmol/L Chloride 101 98 - 107 mmol/L CO2 30 (H) 22 - 29 mmol/L Anion Gap 7 7 - 16 mmol/L Glucose 96 74 - 99 mg/dL BUN 10 6 - 20 mg/dL CREATININE 0.7 0.5 - 1.0 mg/dL GFR Non- >60 >=60 mL/min/1.73 GFR >60 Calcium 9.1 8.6 - 10.2 mg/dL CBC auto differential Collection Time: 02/26/19 5:45 AM Result Value Ref Range WBC 9.9 4.5 - 11.5 E9/L RBC 4.98 3.50 - 5.50 E12/L Hemoglobin 10.6 (L) 11.5 - 15.5 g/dL Hematocrit 37.2 34.0 - 48.0 % MCV 74.7 (L) 80.0 - 99.9 fL MCH 21.3 (L) 26.0 - 35.0 pg MCHC 28.5 (L) 32.0 - 34.5 % RDW 18.5 (H) 11.5 - 15.0 fL Platelets 318 130 - 450 E9/L MPV 9.6 7.0 - 12.0 fL XR CHEST PORTABLE Final Result Persistent infiltrates and pleural effusion in the left lung base concerning for pneumonia. XR CHEST PORTABLE Final Result Air space disease , suspicious for pneumonia, at the left lung base, this appears to have progressed in the interval The chest appears to be worse in the interval Assessment: Active Hospital Problems Diagnosis Date Noted Adenovirus infection [B34.0] 02/24/2019 Persistent asthma with acute exacerbation [J45.901] Rhinovirus infection [B34.8] Pneumonia due to organism [J18.9] Plan: Asthma exacerbation due to adenovirus/rhinovirus infections In the setting of a patient with very low IGG, IGM, and IGE On home laba/ics/lama with albuterol and singulair and night O2. - start laba/ics and albuterol q4 while awake - check cultures and antigens - blood, legionella, strep pneumo negative so far - Resp film panel positive for Adenovirus, Rhino/Enterovirus - pro calcitonin mildly elevated 0.14 - taper oxygen as able - consulted ID and pulm- appreciate input - Doxy and Levaquin PO for 7 days per ID - follow up with ID for IVIG infusion Anemia - Hgb 10.6 which is near her baseline - iron studies normal - continue ferrous sulfate on discharge MDD -continue home Zoloft dvt ppx with lovenox 40mg (refusing) Associated attestation - Beni Tabor MD - 02/26/2019 12:50 PM EDT Family Medicine Attending Physician Statement I have discussed the case, including pertinent history and exam findings with the resident. I also have seen and examined the patient. No new issues per patient Still with cough, feels better after trying chest PT No fevers. Continues to use O2. Relevant PFSH, ROS noted and confirmed per resident note. BP 112/60 Pulse 86 Temp 97.5 F (36.4 C) (Axillary) Resp 18 Ht 6' 1 (1.854 m) Wt (!) 338 lb (153.3 kg) LMP 02/12/2019 SpO2 90% BMI 44.59 kg/m Exam is as noted by resident with the following changes, additions or corrections: Gen Alert cooperative NAD CV: S1S2 RRR no murmur Resp lungs CTAb, no wheezes; equal air exchange GI soft NT/ND +bs Imp Adeno/rhinovirus infection Exacerbation asthma due to above CVID Anemia, stable Plan Continue supportive measures ?d/c later today, even if needs O2, will discuss with pulm before decision made. Otherwise I agree with the resident's documented assessment and plan * Fatuma Mendez RN - 02/25/2019 6:[address] Kulkarni notified of CXR, orders received. * Charlotte Solorzano, POT FISHER - TWISTING OPERATOR - 02/25/2019 2:35 PM EDT Patient Torrie Martinez Date of admission 02/23/19 CC: Patient's main concern is pain to the left lower part of her lung where the fluid is. States this has been severe since admission and is not getting better. Reports her cough is improving mildly, not bringing up as much mucous. Still feels some shortness of breath when out of bed. HPI: Torrie Martinez is a 28 y.o. 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 No relief with home meds but also was only taking albuterol once a day. No fever or chills. She is a former smoker, has a very strong family history of asthma, and has had recurrent pneumonias. Prior to Admission medications Medication Sig Start Date End Date Taking? Authorizing Provider Umeclidinium [place] (INCRUSE ELLIPTA) 62.5 MCG/INH AEPB Inhale 1 Dose into the lungs daily 02/08/19Yes Sandee Hoyt MD famotidine (PEPCID) 20 MG tablet Take 1 tablet by mouth 2 times daily 02/07/19 06/07/19 Yes Sandee Hoyt MD ferrous sulfate 325 (65 Fe) MG tablet Take 1 tablet by mouth daily (with breakfast) 02/07/19 06/07/19Yes Sandee Hoyt MD fluticasone (FLONASE) 50 MCG/ACT nasal spray 1 spray by Each Nostril route daily 02/07/19 Yes MD Denisse Fluticasone furoate-vilanterol (BREO ELLIPTA) 200-25 MCG/INH AEPB inhaler Inhale 1 puff into the lungs daily 02/07/19 Yes Sandee Hoyt MD montelukast (SINGULAIR) 10 MG tablet Take 1 tablet by mouth nightly 02/07/19 03/09/19 Yes Sandee Hoty MD sertraline (ZOLOFT) 100 MG tablet Take 1 tablet by mouth daily 02/07/19 06/07/19 Yes Sandee Hoyt MD cetirizine (ZYRTEC) 10 MG tablet Take 1 tablet by mouth daily 02/07/19 Yes Sandee Hoyt MD predniSONE (DELTASONE) 10 MG tablet 4 tabs x 2 days, then 3 tabs x 3 days, then 2 tabs x 3 days, then 1 tab x 3 days. 01/18/19 Yes Ever Bragg APN albuterol (PROVENTIL) (2.5 MG/3ML) 0.083% nebulizer solution Take 2.5 mg by nebulization every 6 hours as needed for Wheezing Yes Historical Provider, Oxygen Concentrator Yes Historical Provider, albuterol sulfate HFA 108 (90 Base) MCG/ACT inhaler Inhale 2 puffs into the lungs every 6 hours as needed for Wheezing Yes Historical Provider, Vitals: 02/25/19 0831 BP: 115/68 Pulse: 100 Resp: 18 Temp: 98.1 F (36.7 C) SpO2: 92% Intake/Output Summary (Last 24 hours) at 02/25/2019 1435 Last data filed at 02/25/2019 1337 Gross per 24 hour Intake 1120 ml Output Net 1120 ml Exam/Objective: WD obese female in no acute distress Skin: warm, dry, without rash HEENT: normal moist oral mucosa Chest: symmetric with equal air entry. Lungs: diffuse decrease in breath sounds particularly left post base. no wheezing at present Cardiac: S1, S2 normal. No murmur or robert. No edema. Abdomen: obese, soft, non-tender, active bowel sounds. Extremities: No clubbing, cyanosis, or edema Neuro: Alert, moves all extremities symmetrically. Oriented to person, time place Psych: Normal affect and insight CBC with Differential: Lab Results Component Value Date WBC 9.8 02/25/2019 RBC 4.48 02/25/2019 HGB 9.7 02/25/2019 HCT 33.4 02/25/2019 PLT 288 02/25/2019 MCV 74.6 02/25/2019 MCH 21.7 02/25/2019 MCHC 29.0 02/25/2019 RDW 18.6 02/25/2019 LYMPHOPCT 27.2 02/25/2019 MONOPCT 6.7 02/25/2019 BASOPCT 0.3 02/25/2019 MONOSABS 0.66 02/25/2019 LYMPHSABS 2.66 02/25/2019 EOSABS 0.09 02/25/2019 BASOSABS 0.03 02/25/2019 CMP: Lab Results Component Value Date NA 142 02/25/2019 K 3.7 02/25/2019 CL 103 02/25/2019 CO2 31 02/25/2019 BUN 9 02/25/2019 CREATININE 0.7 02/25/2019 GFRAA >60 02/25/2019 LABGLOM >60 02/25/2019 GLUCOSE 114 02/25/2019 PROT 5.5 01/18/2019 LABALBU 3.8 01/18/2019 CALCIUM 8.2 02/25/2019 BILITOT <0.2 01/18/2019 ALKPHOS 62 01/18/2019 AST 10 01/18/2019 ALT 9 01/18/2019 Results for TORRIE MARTINEZ ( ) as of 02/23/2019 15:20 Ref. Range 01/16/2019 18:35 IgA Latest Ref Range: 70 - 400 mg/dL <5 (L) IgE Latest Ref Range: <=214 kU/L <2 IgG 1 Latest Ref Range: 240 - 1118 mg/dL <15 (L) IgG 2 Latest Ref Range: 124 - 549 mg/dL <20 (L) IgG 3 Latest Ref Range: 21 - 134 mg/dL <1 (L) IgG 4 Latest Ref Range: 1 - 123 mg/dL <1 (L) Total IgG Latest Ref Range: 700 - 1600 mg/dL <30 (L) IgM Latest Ref Range: 40 - 230 mg/dL <5 (L) 02/23/19 01/17/19 01/15/19 IMPRESSION: 1. Acute exacerbation of asthma due to viral respiratory infection (adenovirus, rhinovirus) 2. Severe immunodeficiency (IGG, IGM, IGA) - not yet on treatment 3. Chronic respiratory failure on home O2 - not significantly exacerbated 4. Chronic left basilar atelectasis as well as some findings of bronchiectasis 5. History pansinusitis 6. History of GERD - from old charts, patient denies at present Plan: 1. Antibiotics stopped per ID. Procalcitonin 0.14. 2. Continue dulera, singulair, albuterol nebs 3. Repeat CXR now. 4. Low flow O2 to keep SpO2 >=92% JORGE A Batista Associated attestation - Shiraz Robbins MD - 02/25/2019 2:56 PM EDT Seen and examined, discussed with CHILD STUDY TEAM DIRECTOR and primary service. Still mildly hypoxic on 2.5 liters and complaining of dyspnea and sputum ness to saliva in nature. Will repeat cxr and if still with LLL changes start CPT to that area. Will add prednisone 20 mg daily as well. * Sandee Hoyt MD - 02/25/2019 9:06 AM EDT [facility] Progress Note Subjective: Feels better since admission but still have shortness of breath. Currently on 2.5L O2 Still having productive cough with occasional green sputum Having mild left sided chest pain that she attributes to the fluid Past medical, surgical, family and social history were reviewed, non- contributory, and unchanged unless otherwise stated. Objective: BP 115/68 Pulse 100 Temp 98.1 F (36.7 C) (Oral) Resp 18 Ht 6' 1 (1.854 m) Wt (!) 335 lb (152 kg) LMP 02/12/2019 SpO2 92% BMI 44.20 kg/m Heart: RRR, no murmurs, gallops, or rubs. Lungs: Decreased breath sounds bilaterally but no wheezing or rales or rhonchi Abd: bowel sounds present, nontender, nondistended, no masses Extrem: No clubbing, cyanosis, or edema Skin: hypopigmented patches consistent with vitiligo on the elbows and hands Recent Results (from the past 24 hour(s)) Basic Metabolic Panel w/ Reflex to MG Collection Time: 02/25/19 3:55 AM Result Value Ref Range Sodium 142 132 - 146 mmol/L Potassium reflex Magnesium 3.7 3.5 - 5.0 mmol/L Chloride 103 98 - 107 mmol/L CO2 31 (H) 22 - 29 mmol/L Anion Gap 8 7 - 16 mmol/L Glucose 114 (H) 74 - 99 mg/dL BUN 9 6 - 20 mg/dL CREATININE 0.7 0.5 - 1.0 mg/dL GFR Non- >60 >=60 mL/min/1.73 GFR >60 Calcium 8.2 (L) 8.6 - 10.2 mg/dL CBC auto differential Collection Time: 02/25/19 3:55 AM Result Value Ref Range WBC 9.8 4.5 - 11.5 E9/L RBC 4.48 3.50 - 5.50 E12/L Hemoglobin 9.7 (L) 11.5 - 15.5 g/dL Hematocrit 33.4 (L) 34.0 - 48.0 % MCV 74.6 (L) 80.0 - 99.9 fL MCH 21.7 (L) 26.0 - 35.0 pg MCHC 29.0 (L) 32.0 - 34.5 % RDW 18.6 (H) 11.5 - 15.0 fL Platelets 288 130 - 450 E9/L MPV 10.0 7.0 - 12.0 fL Neutrophils % 62.2 43.0 - 80.0 % Immature Granulocytes % 2.7 0.0 - 5.0 % Lymphocytes % 27.2 20.0 - 42.0 % Monocytes % 6.7 2.0 - 12.0 % Eosinophils % 0.9 0.0 - 6.0 % Basophils % 0.3 0.0 - 2.0 % Neutrophils Absolute 6.08 1.80 - 7.30 E9/L Immature Granulocytes # 0.26 E9/L Lymphocytes Absolute 2.66 1.50 - 4.00 E9/L Monocytes Absolute 0.66 0.10 - 0.95 E9/L Eosinophils Absolute 0.09 0.05 - 0.50 E9/L Basophils Absolute 0.03 0.00 - 0.20 E9/L XR CHEST PORTABLE Final Result Air space disease , suspicious for pneumonia, at the left lung base, this appears to have progressed in the interval The chest appears to be worse in the interval Assessment: Active Hospital Problems Diagnosis Date Noted Adenovirus infection [B34.0] 02/24/2019 Persistent asthma with acute exacerbation [J45.901] Rhinovirus infection [B34.8] Plan: Asthma exacerbation due to adenovirus/rhinovirus infections In the setting of a patient with very low IGG, IGM, and IGE On home laba/ics/lama with albuterol and singulair and night O2. - start laba/ics and albuterol q4 while awake - check cultures and antigens - blood, legionella, strep pneumo negative so far - Resp film panel positive for Adenovirus, Rhino/Enterovirus - pro calcitonin mildly elevated 0.14 - taper oxygen as able - consulted ID and pulm- appreciate input Anemia - Hg 9.7 which his near her baseline but decreasing slightly - iron studies normal - consider ferrous sulfate implementation before discharge MDD -continue home Zoloft dvt ppx with lovenox 40mg Associated attestation - Beni Tabor MD - 02/25/2019 3:57 PM EDT Family Medicine Attending Physician Statement I have discussed the case, including pertinent history and exam findings with the resident. I also have seen and examined the patient. No new issues per patient Still with cough, maybe some less SOB. No fevers. Continues to use daytime O2 D/w Dr Robbins Relevant PFSH, ROS noted and confirmed per resident note. BP 120/62 Pulse 80 Temp 97.9 F (36.6 C) (Axillary) Resp 16 Ht 6' 1 (1.854 m) Wt (!) 335lb (152 kg) LMP 02/12/2019 SpO2 92% BMI 44.20 kg/m Exam is as noted by resident with the following changes, additions or corrections: Gen Alert cooperative NAD CV: S1S2 RRR no murmur Resp Coarse sounds L base, equal air exchange GI soft NT/ND +bs Imp Adeno/rhinovirus infection Exacerbation asthma due to above CVID Anemia, stable Plan Continue supportive measures Chest PT being started Try to wean O2 ?d/c tomorrow Otherwise I agree with the resident's documented assessment and plan * Rosalind Naylor MD - 02/24/2019 11:21 AM EDT Full ID Consult to follow PT SEEN AND EXAMINED Left sided pneumonia, new symptoms CVID Adeno/rhinovirus positive Van and cefepime resp cultures Will try to arrange IVIg soon, Dr Diaz to follow from tomorrow * Ashia Weiss MD - 02/24/2019 8:20 AM EDT [facility] Progress Note Subjective: Feels better since admission Still some sob Coughing up less- more phlegm Was productive of green sputum at arrival No cp Past medical, surgical, family and social history were reviewed, non- contributory, and unchanged unless otherwise stated. Objective: BP 130/72 Pulse 76 Temp 98.2 F (36.8 C) (Oral) Resp 18 Ht 6' 1 (1.854 m) Wt (!) 330 lb (149.7 kg) LMP 02/12/2019 SpO2 93% BMI 43.54 kg/m Heart: RRR, no murmurs, gallops, or rubs. Lungs: Decreased breath sounds bilaterally but no wheezing or rales or rhonchi Abd: bowel sounds present, nontender, nondistended, no masses Extrem: No clubbing, cyanosis, or edema Skin: hypopigmented patches consistent with vitiligo on the elbows Recent Results (from the past 24 hour(s)) Basic Metabolic Panel w/ Reflex to MG Collection Time: 02/24/19 4:22 AM Result Value Ref Range Sodium 143 132 - 146 mmol/L Potassium reflex Magnesium 4.3 3.5 - 5.0 mmol/L Chloride 104 98 - 107 mmol/L CO2 29 22 - 29 mmol/L Anion Gap 10 7 - 16 mmol/L Glucose 120 (H) 74 - 99 mg/dL BUN 8 6 - 20 mg/dL CREATININE 0.7 0.5 - 1.0 mg/dL GFR Non- >60 >=60 mL/min/1.73 GFR >60 Calcium 8.5 (L) 8.6 - 10.2 mg/dL CBC auto differential Collection Time: 02/24/19 4:22 AM Result Value Ref Range WBC 10.3 4.5 - 11.5 E9/L RBC 4.82 3.50 - 5.50 E12/L Hemoglobin 10.2 (L) 11.5 - 15.5 g/dL Hematocrit 35.8 34.0 - 48.0 % MCV 74.3 (L) 80.0 - 99.9 fL MCH 21.2 (L) 26.0 - 35.0 pg MCHC 28.5 (L) 32.0 - 34.5 % RDW 18.4 (H) 11.5 - 15.0 fL Platelets 290 130 - 450 E9/L MPV 9.6 7.0 - 12.0 fL Neutrophils % 74.9 43.0 - 80.0 % Immature Granulocytes % 1.5 0.0 - 5.0 % Lymphocytes % 15.5 (L) 20.0 - 42.0 % Monocytes % 8.0 2.0 - 12.0 % Eosinophils % 0.0 0.0 - 6.0 % Basophils % 0.1 0.0 - 2.0 % Neutrophils Absolute 7.70 (H) 1.80 - 7.30 E9/L Immature Granulocytes # 0.15 E9/L Lymphocytes Absolute 1.59 1.50 - 4.00 E9/L Monocytes Absolute 0.82 0.10 - 0.95 E9/L Eosinophils Absolute 0.00 (L) 0.05 - 0.50 E9/L Basophils Absolute 0.01 0.00 - 0.20 E9/L Anisocytosis 1+ Poikilocytes 1+ Ovalocytes 1+ XR CHEST PORTABLE Final Result Air space disease , suspicious for pneumonia, at the left lung base, this appears to have progressed in the interval The chest appears to be worse in the interval Assessment: Active Hospital Problems Diagnosis Date Noted Adenovirus infection [B34.0] 02/24/2019 Pneumonia [J18.9] 02/23/2019 Persistent asthma with acute exacerbation [J45.901] Rhinovirus infection [B34.8] Plan: Asthma exacerbation due to adenovirus/rhinovirus infections In the setting of a patient with very low IGG, IGM, and IGE On home laba/ics/lama with albuterol and singulair and night O2. Started on cefepime and vanco in the ED. Given solu-medrol by EMS. - start laba/ics and albuterol q4 while awake - check cultures and antigens - resp, blood, legionella, strep pneumo - pro calcitonin pending this am- if negative will DC abx - taper oxygen as able - consulted ID and pulm- appreciate input Anemia - Hg 10.2 which his near her baseline - check iron studies - consider ferrous sulfate implementation before discharge MDD -continue home Zoloft dvt ppx with lovenox 40mg Associated attestation - Mark Mota MD - 02/24/2019 9:50 AM EDT [facility] Progress Note Subjective: Pt still has some sob but cough has improved. Denies any fever, chills. Past medical, surgical, family and social history were reviewed, non- contributory, and unchanged unless otherwise stated. Objective: BP 130/72 Pulse 76 Temp 98.2 F (36.8 C) (Oral) Resp 18 Ht 6' 1 (1.854 m) Wt (!) 330 lb (149.7 kg) LMP 02/12/2019 SpO2 93% BMI 43.54 kg/m Exam is as noted by resident with the following changes, additions or corrections: Heart: RRR, no murmurs, gallops, or rubs. Lungs: CTA bilaterally, no wheeze, rales or rhonchi Abd: bowel sounds present, nontender, nondistended, no masses Extrem: No clubbing, cyanosis, or edema Assessment: Active Hospital Problems Diagnosis Date Noted Adenovirus infection [B34.0] 02/24/2019 Pneumonia [J18.9] 02/23/2019 Persistent asthma with acute exacerbation [J45.901] Rhinovirus infection [B34.8] Plan: Acute Asthma exacerbation secondary to viral infection in the setting of immunodeficiency: O2, albuterol nebs, dulera. On IV antibiotics for possible pneumonia, await procal level. Pulm and ID following Attending Physician Statement I have reviewed the chart, including any radiology or labs, and have seen the patient with the resident(s). I personally reviewed and performed abbott elements of the history and exam. I agree with the assessment, plan and orders as documented by the resident. Please refer to the resident note for additional information. documented in this encounter* Tatianna Arshad RN - 03/19/2019 11:10 AM EST Spoke with dr. Diaz told her of the patients reaction we will restart the flebogamma and update her. * Tatianna Asrhad RN - 03/19/2019 8:30 AM EST Pt unable to tolerate Flebogamma. Pt given discharge instructions and reminded to call Dr Mahmood foralexis follow up appt. Pt verbalized understanding * Naomy Avelar RN - 03/19/2019 8:30 AM EST Spoke with Dr. Diaz and updated her on having to stop the infusion again. Plan we will discontinue with flebogamma and patient instructed to follow up in office gave her the number * Ana King RN - 03/19/2019 8:30 AM EST PATIENT COMPLAINTS OF SUDDEN NAUSEA and small amount yellow mucousy emesis. o2 sat at 86%. Slightlydiaphoretic and tachy. ivig stopped and normal saline started at 20cc/hr. o2 applied at 3 liters. Patient started feeling better shortly thereafter. Call out to dr diaz. documented in this encounter Assessments Diagnosis Community acquired bacterial pneumonia- Primary Bacterial pneumonia, unspecified Pneumonia due to organism Pneumonia due to other specified organism Shortness of breath Streptococcal sore throat Severe persistent asthma with exacerbation Unspecified asthma, with exacerbation Chronic asthma, moderate persistent, uncomplicated Gastroesophageal reflux disease without esophagitis Esophageal reflux Major depressive disorder Major depressive disorder, single episode, unspecified Diagnosis Pneumonia due to organism- Primary Pneumonia due to other specified organism Persistent asthma with acute exacerbation, unspecified asthma severity Severe persistent asthma with acute exacerbation Unspecified asthma, with exacerbation Rhinovirus infection Rhinovirus infection in conditions classified elsewhere and of unspecified site Common variable immunodeficiency (HCC) Common variable immunodeficiency Adenovirus infection Adenovirus infection in conditions classified elsewhere and of unspecified site Pneumonia Pneumonia, organism unspecified Diagnosis Common variable immunodeficiency (HCC)- Primary Common variable immunodeficiency Diagnosis Pneumonia due to organism- Primary Pneumonia due to other specified organism Advance Directives No Advanced Directives Records FoundDocuments on File Type Date Recorded 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 Advance Directives and Living Will Power of Emissions Repair Technician Latest Code Status on File Code Status Date Activated Date Inactivated Comments Full Code 01/15/2019 10:17 PM Latest Code Status on File Code Status Date Activated Date Inactivated Comments Full Code 02/23/2019 11:50 AM Full Code 01/15/2019 10:17 PM 01/18/2019 6:39 PM Documents on File Type Date Recorded 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 Advance Directives and Living Will Power of Emissions Repair Technician Latest Code Status on File Code Status Date Activated Date Inactivated Comments Full Code 02/23/2019 11:50 AM 02/27/2019 6:12 PM Full Code 01/15/2019 10:17 PM 01/18/2019 6:39 PM Latest Code Status on File Code Status Date Activated Date Inactivated Comments Full Code 05/01/2019 4:04 PM 05/07/2019 6:55 PM Full Code 02/23/2019 11:50 AM 02/27/2019 6:12 PM Latest Code Status on File Code Status Date Activated Date Inactivated Comments Full Code 02/23/2019 11:50 AM 02/27/2019 6:12 PM Documents on File Type Date Recorded 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 ACP-Advance Directive ACP-Power of Emissions Repair Technician Documents on File Type Date Recorded 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 ACP-Advance Directive ACP-Power of Emissions Repair Technician Latest Code Status on File Code Status Date Activated Date Inactivated Comments Full Code 05/01/2019 4:04 PM 05/07/2019 6:55 PM Full Code 02/23/2019 11:50 AM 02/27/2019 6:12 PM Latest Code Status on File Code Status Date Activated Date Inactivated Comments Full Code 05/05/2021 5:13 PM 05/08/2021 7:06 PM Full Code 05/01/2019 4:04 PM 05/07/2019 6:55 PM Latest Code Status on File Code Status Date Activated Date Inactivated Comments Full Code 05/01/2019 4:04 PM Advance Directive Response Recorded Date/ Time Living Will No August 30, 2023 4:49pm Power of Emissions Repair Technician No August 29 4:49pm Advance Directive Response Recorded Date/ Time Living Will No May 26 9:09pm Do you have a Healthcare Power of Emissions Repair Technician? No May 26, 2024 9:09pm Do you have a Healthcare Power of Emissions Repair Technician? No September 03, 2024 6:43pm Advance Directive Response Recorded Date/ Time Do you have a Healthcare Power of Emissions Repair Technician? No November 13, 2024 6:52pm Do you have a Healthcare Power of Emissions Repair Technician? No September 03, 2024 6:43pm Advance Directive Response Recorded Date/ Time Do you have a Healthcare Power of Emissions Repair Technician? No November 13, 2024 6:52pm Do you have a Healthcare Power of Emissions Repair Technician? No February 20, 2025 10:14am Chief Complaint and Reason for Visit Chief Complaint COVID Screening Chief Complaint EYE Chief Complaint Admit Date SOB May 26, 2024 7 :45pm RESP FAILURE WITH PNEUMONIA AND ASTHMA A [facility] 2024 5:36pm RESP FAILURE WITH PNEUMONIA AND ASTHMA [facility] 2024 6:00pm RESP FAILURE WITH PNEUMONIA AND ASTHMA [facility] 2024 7:16am RESP FAILURE WITH PNEUMONIA AND ASTHMA [facility] 2024 8:30am RESP FAILURE WITH PNEUMONIA AND ASTHMA M ay 2024 8:28am RESP FAILURE WITH PNEUMONIA AND ASTHMA M ay 2024 8:51am RESP FAILURE WITH PNEUMONIA AND ASTHMA M ay 2024 9:23am Reason for Visit Admit Date Acute pain of left lower extremity September 03, 2024 5:36pm Adult BMI 60.0-69.9 kg/sq m September 03, 2024 5:36pm Anemia September 03, 2024 5:3 6pm Bronchospasm, acute September 03, 2024 5:3 6pm Right upper lobe pneumonia September 03, 2 025 5:36pm Sinus tachycardia seen on cardiac monito r September 03, 2024 5:36pm SIRS (systemic inflammatory response syn drome) September 03, 2024 5:36pm Acute on chronic respiratory failure with hypoxia and hypercapnia September 03, 2024 5:36pm Chronic respiratory failure with hypoxia and hypercapnia September 03, 2024 5:36pm Chief Complaint Admit Date RESP FAILURE WITH PNEUMONIA AND ASTHMA A pril 2024 5:36pm RESP FAILURE WITH PNEUMONIA AND ASTHMA A pril 2024 6:00pm RESP FAILURE WITH PNEUMONIA AND ASTHMA A pril 2024 7:16am RESP FAILURE WITH PNEUMONIA AND ASTHMA A pril 2024 8:30am RESP FAILURE WITH PNEUMONIA AND ASTHMA M ay 2024 8:28am RESP FAILURE WITH PNEUMONIA AND ASTHMA M ay 2024 8:51am RESP FAILURE WITH PNEUMONIA AND ASTHMA M ay 2024 9:23am RIGHT KNEE November 13, 2024 6:43p m Reason for Visit Admit Date Adult BMI 60.0-69.9 kg/sq m September 03, 2024 5:36pm Anemia September 03, 2024 5:3 6pm Chronic respiratory failure with hypoxia and hypercapnia September 03, 2024 5:36pm Acute on chronic respiratory failure with hypoxia and hypercapnia September 03, 2024 5:36pm Acute pain of left lower extremity September 03, 2024 5:36pm Bronchospasm, acute September 03, 2024 5:3 6pm Right upper lobe pneumonia September 03, 2 025 5:36pm Sinus tachycardia seen on cardiac monito r September 03, 2024 5:36pm SIRS (systemic inflammatory response syn drome) September 03, 2024 5:36pm Chief Complaint Admit Date RIGHT KNEE November 13, 2024 6:43p m LYMPH RX HERE January 13, 2025 2:54pm Other disorders of optic disc, bilateral January 29, 2025 8:01am Other chronic sinusitis February 12 4:43pm sob February 20, 2025 9 :36am SINUSITIS February 27, 2025 3 :21pm Summary Purpose Family History No Family History Records Found Relationship Condition Age at Onset Recorded Date/T shaun Not Specified Malignant neoplasm Unknown Reason for Referral Specialty Diagnoses / Procedures Referred By Suleman t Referred To Contact Ent - Otolaryngology Diagnoses Nasal polyps Procedures CONSULT TO ENT OFFICE/OUTPATIENT [facility] 60 MINUTES Loaunn Bermeo APRN.TWISTING OPERATOR [address] [place] [address] Referral ID Status Reason Start Date Expiration Date Visits Requested Visits Authorized [id number] Authorized PCP Requested Referral 06/30/2023 06/29/2024 1 1 Additional Source Comments Reason for Visit (unrecogniz ed section and content) Reason Comments Pharyngitis for last four days Rib Pain i think its from co ughing Shortness of Breath Wearing home oxygen more Otalgia Status Reason Specialty Diagnoses / Procedures Referre d By Contact Referred To Contact Diagnoses Pneumonia Pneumonia Jaime Sandoval MD [address] [place] [address] [employer] Reason Comments Cough productive Status Reason Specialty Diagnoses / Procedures Referre d By Contact Referred To Contact Diagnoses Pneumonia Pneumonia Beni Tabor MD [address] [place] [address] College 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 Status Reason Specialty Diagnoses / Procedures Re ferred By Contact Referred To Contact Closed Diagnoses Common variable immunodeficiency (HCC) Procedures FLEBOGAMMA INJECTION Mona Diaz MD [address] [facility] [address] [place] [address] [facility] [address] [place] [address] Reason Comments Shortness of Breath on 4 liters home oxy gen for lung hypoplasia Reason Comments Chest Pain started yesterday, w ears home oxygen for asthma at 6 L [place] Shortness of Breath Reason Comments Burn hot water, right duy ast, right upper leg, right abdomen Reason Comments Shortness of Breath Status Reason Specialty Diagnoses / Procedures Referre d By Contact Referred To Contact Diagnoses Pneumonia Pneumonia Yvette Rahman MD [address] [facility] [address] [place] [address] [employer] Specialty Diagnoses / Procedures Referred By Contac t Referred To Contact Diagnoses Obstructive sleep apnea (adult) (pediatric) Procedures [place] POLYSOM 6/>YRS SLEEP W/CPAP 4/> ADDL KAYLEIGH [facility] [address] [facility] [address] [place] [address] Referral ID Status Reason Start Date Expiration Date V isits Requested Visits Authorized [id number] Authorized 01/06/2022 12/28/2022 1 1 Specialty Diagnoses / Procedures Referred By Contac t Referred To Contact Radiology Diagnoses Bilateral lower extremity edema Procedures US DUP LOWER EXTREMITIES BILATERAL VENOUS US DUP LOWER EXTREMITY RIGHT SILVINO Bosak, Crispin A, DO [address] [address] Referral ID Status Reason Start Date Expiration Date Visits Re quested Visits Authorized [id number] Open 05/19/2022 05/19/2023 1 1 Specialty Diagnoses / Procedures Referred By Contac t Referred To Contact Radiology Diagnoses Bilateral lower extremity edema Procedures US DUP LOWER EXTREMITY LEFT SILVINO Bosak, Crispin A, DO [address] [address] Referral ID Status Reason Start Date Expiration Date Visits Re quested Visits Authorized [id number] Closed 05/19/2022 05/19/2023 1 1 Reason Comments Herpes X3 days, flare Reason Comments Results Reason Comments Establish Care Reason Onset Date Comments Med Change Request Refill Request 07/10/2023 Reason Comments Asthma Reason Comments Conjunctivitis Crusty swelling of B [place] eyes x2 Reason Comments Ear Pain Bilateral ear pain a nd ST x 4 days Reason Comments Patient Update Reason Comments Hospital F/U Reason Comments need new rx for compression hose Reason Comments Headache Fever x 4 days Reason Comments Follow Up Reason Comments Patient Question Reason Comments Spirometry Specialty Diagnoses / Procedures Referred By Contac t Referred To Contact [facility] Diagnoses Severe persistent asthma without complication (HCC) Restrictive lung disease Procedures LUNG VOLUMES Radha Chapman POT FISHER.TWISTING OPERATOR [address] [place] [facility] Desk [address] [place] [address] Phone: tel: fax: [facility] [place] [address] [place], [place] [phone] Referral ID Status Reason Start Date Expiration Date V isits Requested Visits Authorized [id number] Closed Auto-Generate d Referral 08/27/2024 05/07/2025 1 1 Specialty Diagnoses / Procedures Referred By Contac t Referred To [facility] Diagnoses Severe persistent asthma without complication (HCC) Restrictive lung disease Chronic hypoxemic respiratory failure (HCC) Procedures LUNG DIFFUSION CAPACITY (DLCO) DIFFUSING CAPACITY Radha Chapman APRN.TWISTING OPERATOR [address] [place] [id number] Phone: tel: fax: [facility] [place] [phone] Referral ID Status Reason Start Date Expiration Date V isits Requested Visits Authorized [id number] Closed Auto-Generate d Referral 08/27/2024 05/07/2025 1 1 Specialty Diagnoses / Procedures Referred By Contac t Referred To [facility] Diagnoses Severe persistent asthma without complication (HCC) Procedures SPIROMETRY WITH DILATOR IF OBSTRUCTED BRNCDILAT RSPSE SPMTRY PRE&POST-BRNCDILAT ADMN Radha Chapman APRN.TWISTING OPERATOR [address] [address] Phone: tel: fax: [place] [phone] Referral ID Status Reason Start Date Expiration Date V isits Requested Visits Authorized [id number] Closed Auto-Generate d Referral 08/27/2024 05/07/2025 1 1 Specialty Diagnoses / Procedures Referred By Contac t Referred To [facility] Diagnoses Severe persistent asthma without complication (HCC) Procedures NITRIC OXIDE, EXHALED NITRIC OXIDE GAS DETERMINATION Radha Chapman APRN.TWISTING OPERATOR [address] [address] Phone: tel: fax: [address] [address] Referral ID Status Reason Start Date Expiration Date V isits Requested Visits Authorized [id number] Closed Auto-Generate d Referral 08/27/2024 05/07/2025 1 1 Reason Comments Established Patient Severe persistent as thma Reason Comments Benefit Check Reason Comments New Patient Reason Comments Ear Pain Left ear pain x 4 da ys Reason Comments Assessment Patient Education Reason Comments EKG Specialty Diagnoses / Procedures Referred By Contac t Ref[facility] Diagnoses BOLA (obstructive sleep apnea) Preoperative testing BMI 60.0-69.9, adult (HCC) Procedures ECG COMPLETE ECG ROUTINE ECG W/LEAST 12 LDS W/I&R Elisa Jean MD [address] [place] [address] Phone: tel: fax: [facility] [place] [address] Referral ID Status Reason Start Date Expiration Date V isits Requested Visits Authorized [id number] Closed Auto-Generate d Referral 09/12/2024 09/12/2025 1 1 Reason Comments Radiology US Specialty Diagnoses / Procedures Referred By Contac t Referred To Contact [facility] Diagnoses BOLA (obstructive sleep apnea) Preoperative testing BMI 60.0-69.9, adult (HCC) Procedures US ABD RIGHT UPPER QUADRANT US ABDOMINAL REAL TIME W/IMAGE LIMITED Elisa Jean MD [address] [place] [id number] Phone: tel: fax: [facility] [place] [phone] Referral ID Status Reason Start Date Expiration Date V isits Requested Visits Authorized [id number] Closed Auto-Generate d Referral 09/12/2024 10/12/2025 1 1 Reason Comments Med Change Request Reason Comments Psg Check In (Adult) Reason Onset Date Comments Refill Request 11/26/2024 Reason Comments Reassessment Patient Education Reason Comments New Patient Specialty Diagnoses / Procedures Referred By Contac t Referred To Contact Diagnoses BOLA (obstructive sleep apnea) Procedures OFFICE/OUTPATIENT NEW HIGH MDM 60 MINUTES Elisa Jean MD [address] [place] [address] Phone: tel: fax: Referral ID Status Reason Start Date Expiration Date V isits Requested Visits Authorized [id number] Closed PCP Requested Referral 11/27/2024 02/25/2025 1 1 Reason Comments 01/19/2025Monday PSEUDO DATE Ordered Prescriptions (unrec ognized section and content) Prescription Sig Dispensed Refills Start Date End Da te cefdinir (OMNICEF) 300 MG capsule Take 1 capsule by mouth 2 times daily for 5 days 10 capsule 0 11/05/2020 11/10/2020 ondansetron (ZOFRAN-ODT) 4 MG disintegrating tablet Take 1 tablet by mouth 3 times daily as needed for Nausea or Vomiting 21 tablet 0 11/05/2020 Prescription Sig Dispensed Refills Start Date End Da te HYDROcodone-acetaminophen (NORCO) 5-325 MG per tabletIndications:Partial thickness burn of abdomen, initial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 End: February 20, 2025 Dr. Neo Phelps DO Attending physician Active Start: February 20, 2025 End: February 20, 2025 Dr. Neo Phelps , DO Emergency Depart ent Physician Active Start: February 20, 2025 End: February 20, 2025 Team Status: Active Member Role/Relationship Status Dates Louann Bermeo CHILD STUDY TEAM DIRECTOR-C Primary care physician Active Start: February 27, 2025 Dr. Earl Vital MD Attending physician Active Start: February 27, 2025 Dr. Earl Vital MD Referring Provider Active Start: February 27, 2025 Care Team (unrecognized sect ion and content) Care Team Personnel Name: ISRA QUAN MD Member Role: Primary Care Physician Address: Address: [address] [place] [address]- Care Team Related Persons Name: SHAWN CHACON Address: Home [address] [place] [address] [place] Name: MELLISSA BERMUDEZ Name: FEDE MARTINEZ Address: Home [address] Care Team Personnel Name: ISRA QUAN MD Member Role: Primary Care Physician Address: Address: [address] [place] [address]- Care Team Related Persons Name: SHAWN CHACON Address: Home [address] [place] [address] [place] Name: MELLISSA BERMUDEZ Name: FEDE MARTINEZ Address: Home [address] INFORMATION SOURCE (unrecogn ized section and content) DATE CREATED AUTHOR 12/31/2021 [facility] ([place]) DATE CREATED AUTHOR AUTHOR'S ORGANIZ ATION 05/20/2022 [facility] DATE CREATED AUTHOR AUTHOR'S ORGANIZ ATION 06/05/2022 [facility] DATE CREATED AUTHOR AUTHOR'S ORGANIZ ATION 04/05/2024 [facility] DATE CREATED AUTHOR AUTHOR'S ORGANIZ ATION 04/06/2024 [facility] DATE CREATED AUTHOR AUTHOR'S ORGANIZ ATION 11/23/2024 [facility] DATE CREATED AUTHOR AUTHOR'S ORGANIZ ATION 03/10/2025 [facility] DATE CREATED AUTHOR AUTHOR'S ORGANIZ ATION 03/19/2025 [facility] Source Comments (unrecognize d section and content) In the event this informatio n is protected by the Federal Confidentiality of Alcohol and Drug Abuse Patient Records regulations: The Federal rules restrict any use of the information to criminally investigate or prosecute any alcohol or drug abuse patient.[facility] the event this information is protected by the Federal Confidentiality of Alcohol and Drug Abuse Patient Records regulations: The Federal rules restrict any use of the information to criminally investigate or prosecute any alcohol or drug abuse patient.[facility] the event this information is protected by the Federal Confidentiality of Alcohol and Drug Abuse Patient Records regulations: The Federal rules restrict any use of the information to criminally investigate or prosecute any alcohol or drug abuse patient.[facility] the event this information is protected by the Federal Confidentiality of Alcohol and Drug Abuse Patient Records regulations: The Federal rules restrict any use of the information to criminally investigate or prosecute any alcohol or drug abuse patient.[facility] the event this information is protected by the Federal Confidentiality of Alcohol and Drug Abuse Patient Records regulations: The Federal rules restrict any use of the information to criminally investigate or prosecute any alcohol or drug abuse patient.[facility] the event this information is protected by the Federal Confidentiality of Alcohol and Drug Abuse Patient Records regulations: The Federal rules restrict any use of the information to criminally investigate or prosecute any alcohol or drug abuse patient.[facility] the event this information is protected by the Federal Confidentiality of Alcohol and Drug Abuse Patient Records regulations: The Federal rules restrict any use of the information to criminally investigate or prosecute any alcohol or drug abuse patient.[facility] the event this information is protected by the Federal Confidentiality of Alcohol and Drug Abuse Patient Records regulations: The Federal rules restrict any use of the information to criminally investigate or prosecute any alcohol or drug abuse patient.[facility] the event this information is protected by the Federal Confidentiality of Alcohol and Drug Abuse Patient Records regulations: The Federal rules restrict any use of the information to criminally investigate or prosecute any alcohol or drug abuse patient.[facility] the event this information is protected by the Federal Confidentiality of Alcohol and Drug Abuse Patient Records regulations: The Federal rules restrict any use of the information to criminally investigate or prosecute any alcohol or drug abuse patient.[facility] the event this information is protected by the Federal Confidentiality of Alcohol and Drug Abuse Patient Records regulations: The Federal rules restrict any use of the information to criminally investigate or prosecute any alcohol or drug abuse patient.[facility] the event this information is protected by the Federal Confidentiality of Alcohol and Drug Abuse Patient Records regulations: The Federal rules restrict any use of the information to criminally investigate or prosecute any alcohol or drug abuse patient.[facility] the event this information is protected by the Federal Confidentiality of Alcohol and Drug Abuse Patient Records regulations: The Federal rules restrict any use of the information to criminally investigate or prosecute any alcohol or drug abuse patient.[facility] the event this information is protected by the Federal Confidentiality of Alcohol and Drug Abuse Patient Records regulations: The Federal rules restrict any use of the information to criminally investigate or prosecute any alcohol or drug abuse patient.[facility] the event this information is protected by the Federal Confidentiality of Alcohol and Drug Abuse Patient Records regulations: The Federal rules restrict any use of the information to criminally investigate or prosecute any alcohol or drug abuse patient.[facility] the event this information is protected by the Federal Confidentiality of Alcohol and Drug Abuse Patient Records regulations: The Federal rules restrict any use of the information to criminally investigate or prosecute any alcohol or drug abuse patient.[facility] the event this information is protected by the Federal Confidentiality of Alcohol and Drug Abuse Patient Records regulations: The Federal rules restrict any use of the information to criminally investigate or prosecute any alcohol or drug abuse patient.[facility] the event this information is protected by the Federal Confidentiality of Alcohol and Drug Abuse Patient Records regulations: The Federal rules restrict any use of the information to criminally investigate or prosecute any alcohol or drug abuse patient.[facility] the event this information is protected by the Federal Confidentiality of Alcohol and Drug Abuse Patient Records regulations: The Federal rules restrict any use of the information to criminally investigate or prosecute any alcohol or drug abuse patient.[facility] the event this information is protected by the Federal Confidentiality of Alcohol and Drug Abuse Patient Records regulations: The Federal rules restrict any use of the information to criminally investigate or prosecute any alcohol or drug abuse patient.[facility] the event this information is protected by the Federal Confidentiality of Alcohol and Drug Abuse Patient Records regulations: The Federal rules restrict any use of the information to criminally investigate or prosecute any alcohol or drug abuse patient.[facility]In the event this information is protected by the Federal Confidentiality of Alcohol and Drug Abuse Patient Records regulations: The Federal rules restrict any use of the information to criminally investigate or prosecute any alcohol or drug abuse patient.[facility] the event this information is protected by the Federal Confidentiality of Alcohol and Drug Abuse Patient Records regulations: The Federal rules restrict any use of the information to criminally investigate or prosecute any alcohol or drug abuse patient.[facility] the event this information is protected by the Federal Confidentiality of Alcohol and Drug Abuse Patient Records regulations: The Federal rules restrict any use of the information to criminally investigate or prosecute any alcohol or drug abuse patient.[facility] the event this information is protected by the Federal Confidentiality of Alcohol and Drug Abuse Patient Records regulations: The Federal rules restrict any use of the information to criminally investigate or prosecute any alcohol or drug abuse patient.[facility] the event this information is protected by the Federal Confidentiality of Alcohol and Drug Abuse Patient Records regulations: The Federal rules restrict any use of the information to criminally investigate or prosecute any alcohol or drug abuse patient.[facility] the event this information is protected by the Federal Confidentiality of Alcohol and Drug Abuse Patient Records regulations: The Federal rules restrict any use of the information to criminally investigate or prosecute any alcohol or drug abuse patient.[facility] the event this information is protected by the Federal Confidentiality of Alcohol and Drug Abuse Patient Records regulations: The Federal rules restrict any use of the information to criminally investigate or prosecute any alcohol or drug abuse patient.[facility] the event this information is protected by the Federal Confidentiality of Alcohol and Drug Abuse Patient Records regulations: The Federal rules restrict any use of the information to criminally investigate or prosecute any alcohol or drug abuse patient.[facility] the event this information is protected by the Federal Confidentiality of Alcohol and Drug Abuse Patient Records regulations: The Federal rules restrict any use of the information to criminally investigate or prosecute any alcohol or drug abuse patient.[facility]In the event this information is protected by the Federal Confidentiality of Alcohol and Drug Abuse Patient Records regulations: The Federal rules restrict any use of the information to criminally investigate or prosecute any alcohol or drug abuse patient.[facility]In the event this information is protected by the Federal Confidentiality of Alcohol and Drug Abuse Patient Records regulations: The Federal rules restrict any use of the information to criminally investigate or prosecute any alcohol or drug abuse patient.[facility]In the event this information is protected by the Federal Confidentiality of Alcohol and Drug Abuse Patient Records regulations: The Federal rules restrict any use of the information to criminally investigate or prosecute any alcohol or drug abuse patient.[facility]In the event this information is protected by the Federal Confidentiality of Alcohol and Drug Abuse Patient Records regulations: The Federal rules restrict any use of the information to criminally investigate or prosecute any alcohol or drug abuse patient.[facility]In the event this information is protected by the Federal Confidentiality of Alcohol and Drug Abuse Patient Records regulations: The Federal rules restrict any use of the information to criminally investigate or prosecute any alcohol or drug abuse patient.[facility]In the event this information is protected by the Federal Confidentiality of Alcohol and Drug Abuse Patient Records regulations: The Federal rules restrict any use of the information to criminally investigate or prosecute any alcohol or drug abuse patient.[facility] HospitalIn the event this information is protected by the Federal Confidentiality of Alcohol and Drug Abuse Patient Records regulations: The Federal rules restrict any use of the information to criminally investigate or prosecute any alcohol or drug abuse patient.[facility]In the event this information is protected by the Federal Confidentiality of Alcohol and Drug Abuse Patient Records regulations: The Federal rules restrict any use of the information to criminally investigate or prosecute any alcohol or drug abuse patient.[facility] FOR RECORDS PERTAINING TO PATIENTS WHO ARE OR HAVE BEEN ENROLLED IN A CHEMICAL DEPENDENCY/SUBSTANCEABUSE PROGRAM, SOME INFORMATION MAY BE OMITTED. This clinical summary was aggregated from multiple sources. Caution should be exercised in using it in the provision of clinical care. This summary normalizes information from multiple sources, and as a consequence, information in this document may materially change the coding, format and clinical context of patient data. In addition, data may be omitted in some cases. CLINICAL DECISIONS SHOULD BE BASED ON THE PRIMARY CLINICAL RECORDS. [employer] [facility]. provides no warranty or guarantee of the accuracy or completeness of information in this document.
[2025-04-13 16:25] LABS: Internal QC Validated? YES +Cl - CLEAR BKGD; Pregnancy, Serum, hCG Quali. NEGATIVE Negative
[2025-04-13 16:35] LABS: Lipase 23 U/L (13-75)
[2025-04-13 17:18] LABS: Alanine Aminotransfer ALT/SGPT 27 U/L (<=34); Albumin, Serum 3.8 g/dL (3.5-5.0); Alkaline Phosphatase 81 U/L (35-104); Anion Gap 11 (5-15); BUN 8 mg/dL (4-19); BUN/Creat Ratio 13.5 RATIO (10-20); Calcium,Total 9.1 mg/dL (7.6-11.0); Carbon Dioxide 33.1 mmol/L (21.0-32.0); Chloride 97 mmol/L (98-108); Estimated Creatinine Clearance 237.63 ml/min (50-250); Globulin 2.2 g/dL (2.2-4.2); Glucose 94 mg/dL (70-99); Potassium 3.0 mmol/L (3.3-5.1)
[2025-04-13 17:20] LABS: AST(SGOT) 15 U/L (<=31)
[2025-04-13 17:49] VITALS: BP 144/119; PULSE 67; RESP 14; O2SAT 100
[2025-04-13] MEDS: Potassium Chloride Oral Soln 20 MEQ/15 ML UDC 40 MEQ PO (18:31)
[2025-04-13 18:59] LABS: Mucous, Urine 0 SEEN /hpf (<or=2+)
[2025-04-13 19:00] VITALS: BP 122/78; PULSE 78; RESP 16; TEMP 36.7; O2SAT 98
[2025-04-13 19:24] LABS: Color, Urine Red (Yellow); Glucose, Dipstick Normal (Normal); Ketone-Dipstick 50 mg/dl (Negative); Leukocyte Esterase-Dipstick 500 /ul (Negative); Nitrite-Dipstick Negative (Negative); Occult Blood-Urine 250 /ul (Negative); Protein-Dipstick 100 mg/dl (Negative); Specific Gravity, Urine 1.005 (1.002-1.030); Urine Bilirubin Dipstick Negative (Negative)
[2025-04-13 19:42] LABS: Red Blood Cells-Urine 50-100 SEEN /hpf (0-5)
[2025-04-13 19:43] LABS: Squamous Epithelial Cells - UA 0-5 SEEN /hpf (5-10)
[2025-04-13 20:11] VITALS: BP 136/63; PULSE 78; RESP 18; TEMP 36.7; O2SAT 100
== END 2025-04-13 20:18 | disposition home or self-care (01) ==
PROVIDERS: Emergency Provider Surgery; PCP Nurse Practitioner Family; Visit Provider Surgery
DX: N39.0 Urinary tract infection, site not specified (principal); J44.9 Chronic obstructive pulmonary disease, unspecified; E87.6 Hypokalemia; E66.9 Obesity, unspecified; Z87.891 Personal history of nicotine dependence; Z79.51 Long term (current) use of inhaled steroids; Z79.899 Other long term (current) drug therapy
CPT/HCPCS: 74177; 80053; 81001; 83690; 84703; 85025; 87086; 87088; 96374; 96375; 96376; 99283; Q9967; A4216; J2405

== ENCOUNTER 2025-04-29 21:02 | Emergency (ER) | payer MEDICARE, MEDICAID, SELFPAY ==
[2025-04-29 21:03] VITALS: BP 124/95; PULSE 133; RESP 22; TEMP 36.1; O2SAT 98; BMI 48.7
--- NOTE | 2025-04-29 21:42 | RAD_ITS ---
PROCEDURE: CHEST PA AND LATERAL 04/29/2025 REASON FOR EXAM: SOB TECHNIQUE: Procedure Code: RADCXR Modality: DX Procedure: CHEST PA AND LATERAL COMPARISON: 02/20/2025. FINDINGS: Heart is normal in size. The lungs are clear. Elevation of left hemidiaphragm. No acute osseous abnormalities RAD/Chest PA and Lateral IMPRESSION: NO ACUTE FINDINGS. Reading [facility]
--- NOTE | 2025-04-29 21:43 | EKG12_ITS ---
Test Reason : DYSRHYTHMIA Blood Pressure : */* mmHG Vent. Rate : 91 BPM Atrial Rate : 91 BPM P-R Int : 176 ms QRS Dur : 94 ms QT Int : 352 ms P-R-T Axes : 52 29 24 degrees QTcB Int : 432 ms Normal sinus rhythm Normal ECG Confirmed by Leonardo Forbes ([id number]), newspaper editor managing ERVIN MURRY ([id number]) on 05/02/2025 8:07:14 AM Referred By: Confirmed By: Leonardo Forbes
--- NOTE | 2025-04-29 21:50 | CT_ITS ---
PROCEDURE: ABDOMEN/PELVIS WITH CONTRAST 04/29/2025 REASON FOR EXAM: RECENT GASTRIC BYPASS, N/V TECHNIQUE: Procedure Code: CTABDPELW Modality: CT Procedure: ABDOMEN/PELVIS WITH CONTRAST Coronal and Sagittal reconstruction series were provided. CONTRAST: Isovue 370 VOLUME: 94 mL One or more dose reduction techniques were used (e.g., Automated exposure control, adjustment of the mA and/or kV according to patient size, use of iterative reconstruction technique. RADIATION DOSE SUMMARY: CTDlvol: 24.18 mGy DLP: 14.13.58 mGycm COMPARISON: 04.13.2025 FINDINGS: The liver is again seen enlarged. There are no focal enhancing liver lesions. No intra- or extrahepatic biliary duct dilatation is identified. The hepatic vasculature is patent. The gallbladder fossa is unremarkable. The spleen is mildly enlarged measures 16.2 cm and currenlty shows hypodense areas, recommend ultrasound assessment. The pancreas and adrenal glands are unremarkable. The kidneys are normal in size and attenuation with lobulated contour. There is no hydronephrosis or perinephric fat stranding. No renal calculi are identified. The ureters are normal in caliber and no ureteral calculi are seen. No bowel obstruction is identified. The appendix is not clearly seen. Redemonstration of the focal fat stranding surrounding the small bowel beneath the abdominal wall in the umbilical region midline close to the anastomotic site with related mild bowel wall thickening and prominent lymph node, slightly regressed compared to prior. Evidence of gastric bariatric surgery. Focal area of fat stranding seen in the supra-vesical region this could represnt small omental infarct or epiploic appendagitis, adjacent small (2.6 x 2.8 cm) fluid density is newly seen inseparable from the urinary bladder superior wall that could represnt small abscess, associated marked wall thickening of the bladder and perivesical fat stranding. Reactive mural thickening of the sigmoid colon is seen. The abdominal aorta and inferior vena cava appear unremarkable. No free air is identified. Unremarkable appearance of the pelvic organs. No aggressive-appearing osseous lesions are identified. The included lower chest cuts show stable elevation of the left hemidiaphragm and left lower lobe atelectasis and bilateral basal mild bronchial wall thickening CT/Abdomen/Pelvis WITH Contrast IMPRESSION: 1. Redemonstration of the focal fat stranding surrounding the small bowel bene ath the abdominal wall in the umbilical region midline close to the anastomotic site with related mild bowel wall thickening a nd prominent lymph node, slightly regressed compared to prior. Findings might represnt inflammatory or post surgical barrera es, recommend clinical correlation. 2. Focal area of fat stranding seen in the supra-vesical region this could rep resnt small omental infarct or epiploic appendagitis, adjacent small fluid density is newly seen inseparable from the urinary bladder superior wall that could represnt small abscess, associated marked wall thickening of the bladder and perivesical fat stranding. Recommend clinical and laboratory correlation. 3. The spleen is mildly enlarged measures 16.2 cm and currenlty shows hypodens e areas, recommend ultrasound assessment. Reading Location: [facility]
--- NOTE | 2025-04-29 21:55 | EX.ED.DYSGE1 ---
HPI History of Present Illness Chief Complaint: Nausea/Vomiting Narrative Narrative: Patient is a 35-year-old female with a past medical history of COPD chronically on 6 L nasal cannula, anemia, depression, asthma, recent bariatric surgery on March 18, 2025 at [facility] who presents to the emergency department with a chief complaint of generalized not feeling well, nausea vomiting for the last 5 days. States that there will be periods of time where she cannot keep anything down. States that her son had been ill recently and they got better she is not. She states that her symptoms are not the same as her kids. She is also concerned for UTI and notes that her pain is lower in her abdomen. [facility] Medical History Pneumonia COPD (chronic obstructive pulmonary disease) Environmental allergies Anemia Depression Asthma Home Medications ?Medication ?Instructions ?Recorded ?Last Taken ?Type montelukast 10 mg tablet 10 mg PO DAILY allergies 03/13/18 04/12/25 History albuterol sulfate 90 mcg/actuation 1 - 2 puff inhalation Q4H PRN 09/03/24 04/12/25 History aerosol inhaler Wheezing bupropion HCl 150 mg 24 hr tablet, 150 mg PO DAILY mood 09/03/24 04/12/25 History extended release cetirizine 10 mg tablet 10 mg PO DAILY allergies 09/03/24 04/12/25 History famotidine 20 mg tablet 20 mg PO BID PRN stomach upset 09/03/24 04/12/25 History ferrous sulfate 325 mg (65 mg 325 mg PO DAILY iron supplement 09/03/24 04/12/25 History iron) tablet (FeroSul) fluticasone fur. 200 mcg-umeclid 1 ea inhalation DAILY breathing 09/03/24 04/12/25 History 62.5 mcg-vilant 25 mcg inhalat.powder (Trelegy Ellipta) potassium chloride 20 mEq 20 meq PO DAILY supplement 09/03/24 04/12/25 History tablet,extended release(part/cryst) sertraline 50 mg tablet 50 mg PO DAILY mood 09/03/24 04/12/25 History acetaminophen 500 mg capsule 1,000 mg PO Q6H PRN pain 02/20/25 04/12/25 History bumetanide 2 mg tablet 2 mg PO DAILY leg swelling 02/20/25 04/12/25 History ibuprofen 200 mg capsule 600 mg PO PRN pain 02/20/25 02/19/25 History cephalexin 500 mg capsule 500 mg PO Q12 #14 CAPSULES 04/13/25 Unknown Rx omeprazole 40 mg capsule,delayed 40 mg PO DAILY 04/13/25 04/12/25 History release ondansetron 8 mg disintegrating 8 mg PO Q6H PRN PRN nausea/vomiting 04/13/25 Unknown History tablet cephalexin 500 mg capsule 500 mg PO Q12H 5 days #10 caps 04/29/25 Unknown Rx ondansetron 4 mg disintegrating 4 mg PO Q6H PRN nausea and 04/29/25 Unknown Rx tablet vomiting #20 tabs Allergy/AdvReac Type Severity Reaction Status Date / Time No Known Allergies Allergy Verified 04/29/25 21:05 Family History Other Cancer Surgical History Bariatric surgery status Hx of knee surgery Hx of section Social History housing: house Smoking Status: Never smoker ROS ROS ED ROS Narrative Constitutional: Complains of chills denies any fevers Eyes: Denies double vision Cardiovascular: Denies chest pain Respiratory: Denies shortness of breath Abdomen: Complains of nausea vomiting as noted above as well as abdominal pain : Concern for UTI as noted above Neurological: Denies any numbness, aches, tingling Musculoskeletal: Denies back pain Skin: Denies rashes or lesions EXAM Physical Exam Narrative Exam Narrative: General: Patient is lying in bed rest comfortably did not appear to be in acute distress Head: Atraumatic, normocephalic Eyes: PERRL bilaterally, EOMI bilaterally, no conjunctival injection noted Neck: Soft, supple, trachea midline Cardiovascular: Patient tachycardic with a regular rhythm Respiratory: Clear to auscultation bilaterally Abdomen: Soft, nondistended, diffuse tenderness to palpation no rebound or guarding exam Extremities: +4/5 strength noted in the bilateral upper and lower extremities Neurological: Patient following commands knew that she was at [facility] the year is 2024 Skin: Warm, dry, intact no rashes lesions noted Const Vital Signs: 04/29/25 21:03 04/29/25 21:59 04/29/25 23:03 Temperature 96.9 F L Temperature Source Temporal Pulse Rate 133 H 80 Respiratory Rate 22 H 20 H Blood Pressure 124/95 H 125/85 H Blood Pressure Mean 104 98 Pulse Ox 98 5 99 Oxygen Delivery Method Nasal Cannula Nasal Cannula Oxygen Flow Rate (L/min) 6 MDM MDM MDM Narrative Medical decision making narrative: Patient is a 35-year-old female who presents to the emergency department the chief complaint of abdominal pain nausea vomiting generalized not feeling well and concern for urinary tract infection. On the differential diagnose includes but not limited to UTI, bowel obstruction, viral gastroenteritis. Once workup is obtained reviewed she will be reevaluated. Patient be given 30 cc/kg bolus of IV fluids based on ideal body weight as her BMI is greater than 30 therefore 2500 cc were ordered. Patient was complaining of nausea she will be given Zofran. Patient CBC reviewed and showed a white blood count of 6.4, he was noted to be 11.8, plate count was noted be 272. Patient sodium normal 130, potassium normal 3.9, creatinine normal at 0.59. Patient AST and ALT are 24 and 9 respectively. Patient's urinalysis showed 150 ketones negative nitrites 500 leukocyte esterase 10-25 white cells with rare bacteria she does have some urinary symptoms therefore we will treat and send this for culture with Keflex should be given her first dose here in the emergency department. Patient's CT abdomen pelvis with IV and oral contrast is still pending this point in time. Patient tested positive for influenza A as well. Patient case will be signed out to overnight provider to follow-up on this results. See addendum for further details and disposition. Lab Data Labs: Laboratory Results - last 24 hr 04/29/25 04/29/25 22:13 22:15 WBC 6.4 RBC 5.40 Hgb 11.8 L Hct 40.6 MCV 75.2 L MCH 21.9 L MCHC 29.1 L RDW Std Deviation 42.7 RDW Coeff of Micha 15.9 H Plt Count 272 MPV 9.8 Immature Gran % (Auto) 1.600 H Neut % (Auto) 78.5 H Lymph % (Auto) 12.0 L [place] % (Auto) 7.4 Eos % (Auto) 0.2 Baso % (Auto) 0.3 Absolute Neuts (auto) 5.0 Absolute Lymphs (auto) 0.76 L Nucleated RBC % 0 PT 14.6 INR 1.1 APTT 38.7 H Sodium 138 Potassium 3.9 Chloride 92 L Carbon Dioxide 30.0 H Anion Gap 17 BUN 10 Creatinine 0.59 L Estim Creat Clear Calc 233.50 Est GFR (MDRD) Non-Af 122 BUN/Creatinine Ratio 16.3 Glucose 86 Lactic Acid < 1.0 Calcium 9.3 Total Bilirubin 0.25 AST 24 ALT 9 Alkaline Phosphatase 75 Total Protein 6.3 Albumin 3.9 Globulin 2.5 Albumin/Globulin Ratio 1.6 Urine Color Yellow Urine Clarity Sl. Cloudy Urine pH 6.5 Ur Specific [place] 1.010 Urine Protein 30 H Urine Glucose (UA) Normal Urine Ketones 150 A* Urine Occult Blood 10 H Urine Nitrite Negative Urine Bilirubin 1 H Urine Urobilinogen 1 H Ur Leukocyte Esterase 500 H Urine RBC 0-5 SEEN Urine WBC 10-25 SEEN Ur Squamous Epith Cells 0-5 SEEN Urine Bacteria RARE Urine Mucus 0 SEEN Radiography Diagnostic Testing: Clinical Impression(s) from Imaging Studies Chest X-Ray 04/29/25 21:42 IMPRESSION: NO ACUTE FINDINGS. Reading Location[facility] Discharge Plan Triage Chief Complaint: Nausea/Vomiting ED Provider: Syed Cortes Dx/Rx/DC Orders Clinical Impression: Nausea & vomiting, Chronic respiratory failure with hypoxia and hypercapnia, Influenza A, Abdominal pain Prescriptions: New ondansetron 4 mg tablet,disintegrating 4 mg PO Q6H PRN (Reason: nausea and vomiting) Qty: 20 0RF cephalexin 500 mg capsule 500 mg PO Q12H 5 Days Qty: 10 0RF No Action montelukast 10 MG tablet 10 mg PO DAILY bumetanide 2 mg tablet 2 mg PO DAILY acetaminophen 500 mg capsule 1,000 mg PO Q6H PRN (Reason: pain) ibuprofen 200 mg capsule 600 mg PO PRN omeprazole 40 mg capsule,delayed release(DR/EC) 40 mg PO DAILY ondansetron 8 mg tablet,disintegrating 8 mg PO Q6H PRN PRN (Reason: nausea/vomiting) cephalexin 500 mg capsule 500 mg PO Q12 Qty: 14 0RF cetirizine 10 mg tablet 10 mg PO DAILY famotidine 20 mg tablet 20 mg PO BID PRN (Reason: stomach upset) bupropion HCl 150 mg tablet extended release 24 hr 150 mg PO DAILY potassium chloride 20 mEq tablet,ER particles/crystals 20 meq PO DAILY ferrous sulfate [FeroSul] 325 mg (65 mg iron) tablet 325 mg PO DAILY sertraline 50 mg tablet 50 mg PO DAILY Trelegy Ellipta 200-62.5-25 mcg blister with device 1 ea INHALATION DAILY albuterol sulfate 1 INHALER inhaler 1 - 2 puff INHALATION Q4H PRN (Reason: Wheezing) Primary Care Provider: Joanne Connors Referrals: Joanne Connors, [employer] [Primary Care Provider, Medical] Activity Restrictions/Additional Instructions: You tested positive for influenza A here in the emergency department. Take antibiotics as prescribed and continue supportive care E Zofran as prescribed. Follow-up your doctor in the outpatient setting. Print Language: Faroese
[2025-04-29 21:59] VITALS: O2SAT 5
--- OUTSIDE RECORDS SUMMARY | 2025-04-29 22:11 | XMS RPT_ITS | CCD ---
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 Name Role Phone Unavailable Primary Care Provider Unavailmaria dolores e Sandee Hoyt Primary Care Provider Jose FUENTES, Sandee Primary Care Provider Sandee Hoyt MD Primary Care Provider [phone] Jose FUENTES, Sandee Primary Care Provider Sandee Hoyt MD Primary Care Provider [phone] Bosak DO, Crispin A Primary Care Provider [phone] ISRA QUAN MD Primary Care Physician [phone] Bosak DO, Crispin A Primary Care Provider [phone] Bosak DO, Crispin A Primary Care Provider SANDEE HOYT Primary Care Unavailable ZACH VALDEZ [...] A Primary Care Unavailable CUTRONAOSMAN Referring Unavailable BOSAK, CRISPIN A Primary Care Unavailable SANDEE HOYT Primary Care Unavailable CUTRONAOSMAN Referring Unavailable SANDEE HOYT Primary Care Unavailable CUTRONAOSMAN Referring Unavailable Unavailable Primary Care Provider Unavailmaria dolores Bermeo STABLE CLEANER.CERTIFIED CONTROL SYSTEMS TECHNICIAN, Louann Primary Care Provider Jean-Claude STABLE CLEANER.CERTIFIED CONTROL SYSTEMS TECHNICIAN, Louann Primary Care Provider JEAN-CLAUDE SPICE MILLER HAMMER MILL, LOUANN TRENT Primary Care Physician GRICELDA FUENTES, ANSELMO Attending Unavailable JEAN-CLAUDE SPICE MILLER HAMMER MILL, LOUANN TRENT Primary Care Unavaila tonia URBANO MD, OLGA Admitting Unavailable SUNDEEP FUENTES, OLGA Consulting Unavailable ISRA QUAN MD Primary Care Unavailable TRISTAN SMITH, SANDEE Núñez Attending Unavailable Jean-Claude SPICE MILLER HAMMER MILL-C, Louann Primary Care Provider Demetris FUENTES, Dr. [...] Provider Elijah FUENTES, Dr. Gutiérrez Other Provider [phone] Talon FUENTES, Dr. Park Other Provider William FUENTES, Dr. Thomas Other Provider Loraine FUENTES, Dr. Mancia Other Provider Cindi FUENTES, Dr. Beck Other Provider Unavailmaria dolores Ramirez MD, Dr. James Other Provider [phone] Kyree FUENTES, Dr. Lua Other Provider Maria Ines FUENTES, Dr. Chopra Other Provider Darius FUENTES, Dr. Gomez Other Provider Agata SMITH, Dr. Mcdonnell Other Provider Minerva FUENTES, Dr. Ramirez Other Provider [phone] Gretel FUENTES, Dr. Vega Other Provider Massimo SMITH, Dr. Espinoza Other Provider Mohan FUENTES, Dr. Bustillo Other Provider Warren FUENTES, Dr. Harrison Other Provider Emma FUENTES, Dr. Krueger Other Provider Unavailable Zhang SMITH, Dr. Engel Attending Provider Rosetta FUENTES, Dr. Lam Attending Provider Jean-Claude SPICE MILLER HAMMER MILL-C, Louann Primary Care Provider Dr. Randy Bailey MD Referring Provider Dr. Evans Carter MD Referring Provider Unavaila ble LOUANN BERMEO Primary Care Unavailable ELISA JEAN Referring Unavailable Lily AGUILERA, Osman Unavailable Jean-Claude SPICE MILLER HAMMER MILL-C, Louann Primary Care Physician Dr. Randy Bailey MD Attending Physician [phone] Dr. Randy Bailey MD Referring Provider Dr. Randy Bailey MD Emergency Department Physician Jean-Claude SPICE MILLER HAMMER MILL-C, Louann Attending Physician Jean-Claude SPICE MILLER HAMMER MILL-C, Louann Referring Provider Sunil FUENTES, Dr. Duncan Attending Physician Sunil FUENTES, Dr. Duncan Referring Provider Neo Wahl Attending Physician Neo Wahl Referring Provider Lenin SMITH, Dr. Larson Attending Physician Lenin SMITH, Dr. Larson Emergency Department Physi herminio Amanuel FUENTES, Dr. Elliott Attending Physician Amanuel FUENTES, [...] Attending Unavailable Yanioble, Louann Primary Care Unavailable Ynaioble, Louann Primary Care Unavailable Onesimo Willson Attending [...] reactions to substance 8 Other (See Comments) [place], [place] (20 sources) Immune Globulin (Human) Propensity to adverse reactions to drug 9 Nausea And Vomiting [place], [place] (20 sources) Seasonal allergy; Translations: [SEASONAL ALLERGIES] Allergy to substance 8 Other: See Comments [facility] Work Phone: Medications Current Medications Medication [...] mouth 2 times daily 1 03/22/2019 Active [id number] 200 actuat albuterol 0.09 mg/actuat metered dose [...] # 25 EA, 0 Refill(s), [facility]acy: [facility] Start Date: 04/18/18 Stop Date: 05/02/18 [...] 0 Refill(s) Start Date: 04/13/18 Status: Ordered Sdokjqjzayr-Zdixglfgt-Dfoqbz er (3 sources) Start: 09-03-2024 Start: 09-03-2024 Fluticasone-Um eclidin-Vilanter (Trelegy Ellipta) 200-62.5-25 mcg blister with device Active 1 NMA INHALATION DAILY September 03, 2024 12:00am breathing Start: 09-03-2024 Fluticasone-Um eclidin-Vilanter (Trelegy Ellipta) 200-62.5-25 mcg blister with device Active 1 NMA INHALATION DAILY September 03, 2024 12:00am srcnmtjerqw-eyiujnnaq-ohkqvy er (TRELEGY ELLIPTA) 200-62.5-25 mcg inhalation powder (20 sources) Start: 08-27-2024 take 1 puff(s) by inhalation once daily qssbpxvkorz-yqjjllwxt-bgxpnvxe (TRELEGY ELLIPTA) 200-62.5-25 mcg inhalation powder Inhale 1 puff as instructed once daily. 60 each 08/27/2024 Active Start: 07-28-2023 End: 08-27-2024 take 1 puff(s) by inhalation once daily ejqbhcgztcc-cumkhcvzk-ugyrslic (TRELEGY ELLIPTA) 200-62.5-25 mcg inhalation powder Inhale 1 Puff as instructed once daily. 1 Each 07/28/2023 08/27/2024 Discontinued Start: 07-28-2023 take 1 puff(s) by inhalation once daily cixiwpgpwkx-srvjrsjzx-ryoxvddr (TRELEGY ELLIPTA) 200-62.5-25 mcg inhalation powder Inhale [...] (20 sources) Oxygen Concentra tor polymyxin b [id number] unt/ml / trimethoprim 1 mg/ml ophthalmic solution [...] Start: 04-01-2024 take 4 tablets by mo [facility] once daily, then take 3 tablets [...] 30 tab(s), 0 Refill(s), [facility]: [facility] #[id number], 185, cm, 03/29/24 23:13:00 EST, Height, kg, [...] Refill(s), 04/04/24 8:11:00 AM EST, [facility]: [facility] #[id number], 185, cm, 03/29/24 23:13:00 EST, Height, 173.4, [...] Severe persistent asthma, uncomplicated (HCC) Use 1 Ingalls in each nostril two times a day. [...] 0 Active Comment on above: Use 1 Ingalls in each nostril twice daily. Rinse mouth after use. Use 1 Ingalls in each nostril two times a day. [...] 0 02/27/2019 03/09/2019 Active immunoglobulin g, human 44684 mg injection (9 sources) Human Immunoglobulin G [...] 1 puff(s) by mouth once daily Umeclidinium Causey (INCRUSE ELLIPTA) 62.5 MCG/INH AEPB Indications: Severe [...] dose by inhal ation once daily Umeclidinium Causey (INCRUSE ELLIPTA) 62.5 MCG/INH AEPB Indications: Severe [...] Long-term current use of diuretic; Translations: [Other keno terminal operator (current) drug therapy] 04-12-2024 Episodic Other connective [...] (BMI) 60.0-69.9, adult; Translations: [BMI 60.0-69.9, adult ([facility])] Onset: 10-28-2024 Chronic Other upper respiratory disease [...] Episodic Unclassified (17 sources) Bariatric Surgery Authorization Medical Office Rep Onset: 09-13-2024 09-13-2024 Unclassified (1 source) Obesity, Class III, BMI 40-49.9 (morbid obesity) ([facility]); Translations: [Obesity, Class III, BMI 40-49.9 (morbid obesity) ([facility])] Onset: 04-12-2024 Unclassified (1 source) Psychology Services Onset: 12-02-2024 Unclassified (1 source) Class 3 severe obesity with serious comorbidity and body mass index (BMI) of 50.0 to 59.9 in adult ([facility]); Translations: [Class 3 severe obesity with serious comorbidity and body mass index (BMI) of 50.0 to 59.9 in adult ([facility])] Onset: 11-21-2024 Unclassified (1 source) Class 3 [...] 12-11-2021 Episodic Other aftercare (2 sources) Other 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 terminal operator (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) drug therapy; Translations: [Medication management] Onset: [...] Calc (Bld) [Moles/Vol] 5 mmol/L High 0-2 [facility] Comment on above: Order Comment: Speci men Type: ARTERIAL BLOOD SPECIMENOrdering Facility: [facility] Address: [address] [place] [address] Performed By: #### A LLBG ####[facility] LABCLIA [id number] [place] [address] [place] Body temperature 98.96 [degF] Normal [facility] Comment on above: Order Comment: Speci men Type: ARTERIAL BLOOD SPECIMENOrdering Facility: [facility] Address: [address] [place] [address] Performed By: #### A LLBG ####[facility] LABCLIA [id number] [place] [address] [place] Calcium.ionized (Bld) [Mass/Vol] 1.14 mmol/L Normal 1.08-1.30 [facility] Comment on above: Order Comment: Speci men Type: ARTERIAL BLOOD SPECIMENOrdering Facility: [facility] Address: [address] [place] [address] Performed By: #### A LLBG ####[facility] LABCLIA [id number] [place] [address] [place] Calcium.ionized adjusted to pH 7.4 (BldA) [Moles/Vol] 1.16 mmol/L Normal 1.08-1.30 [facility] Comment on above: Order Comment: Speci men Type: ARTERIAL BLOOD SPECIMENOrdering Facility: [facility] Address: [address] [place] [address] Performed By: #### A LLBG ####[facility] LABCLIA [id number] [place] [address] [place] Carboxyhemoglobin (BldA) [Mass fraction] 1.0 % Normal 0.0-2.0 [facility] Comment on above: Order Comment: Speci men Type: ARTERIAL BLOOD SPECIMENOrdering Facility: [facility] Address: [address] [place] [address] Result Comment: Carb oxyhemoglobin Reference Range for Smokers: 2.0-8.0% Performed By: #### A LLBG ####[facility] LABCLIA [id number] [place] [address] [place] CO2 (Bld) [Partial pressure] 47 mm Hg High 36-46 [facility] Comment on above: Order Comment: Speci men Type: ARTERIAL BLOOD SPECIMENOrdering Facility: [facility] Address: [address] [place] [address] Performed By: #### A LLBG ####[facility] LABCLIA [id number] [place] [address] [place] CO2 adjusted to patient's actual temperature (Bld) [Partial pressure] 47 mmHg High 36-46 [facility] Comment on above: Order Comment: Speci men Type: ARTERIAL BLOOD SPECIMENOrdering Facility: [facility] Address: [address] [place] [address] Performed By: #### A LLBG ####[facility] LABCLIA [id number] [place] [address] [place] FIO2 40 % Normal [facility] Comment on above: Order Comment: Speci men Type: ARTERIAL BLOOD SPECIMENOrdering Facility: [facility] Address: [address] [place] [address] Performed By: #### A LLBG ####[facility] LABCLIA [id number] [place] [address] [place] Glucose [Mass/Vol] 141 mg/dL High 60-105 [facility] Comment on above: Order Comment: Speci men Type: ARTERIAL BLOOD SPECIMENOrdering Facility: [facility] Address: [address] [place] [address] Performed By: #### A LLBG ####[facility] LABCLIA [id number] [place] [address] [place] HCO3 (Bld) [Moles/Vol] 30 mmol/L High 22-26 [facility] Comment on above: Order Comment: Speci men Type: ARTERIAL BLOOD SPECIMENOrdering Facility: [facility] Address: [address] [place] [address] Performed By: #### A LLBG ####[facility] LABCLIA [id number] [place] [address] [place] Hematocrit (Bld) [Volume fraction] 36.1 % Normal 36.0-46.0 [facility] Comment on above: Order Comment: Speci men Type: ARTERIAL BLOOD SPECIMENOrdering Facility: [facility] Address: [address] [place] [address] Performed By: #### A LLBG ####[facility] LABCLIA [id number] [place] [address] [place] Hemoglobin (Bld) [Mass/Vol] 11.7 g/dL Normal 11.5-15.5 [facility] Comment on above: Order Comment: Speci men Type: ARTERIAL BLOOD SPECIMENOrdering Facility: [facility] Address: [address] [place] [address] Performed By: #### A LLBG ####[facility] LABCLIA [id number] [place] [address] [place] Lactate [Moles/Vol] 0.5 mmol/L Normal 0.5-2.2 [facility] Comment on above: Order Comment: Speci men Type: ARTERIAL BLOOD SPECIMENOrdering Facility: [facility] Address: [address] [place] [address] Performed By: #### A LLBG ####[facility] LABCLIA [id number] [place] [id number] [place] Methemoglobin (Bld) [Mass fraction] 0.9 % Normal 0.0-1.5 [facility] Comment on above: Order Comment: Speci men Type: ARTERIAL BLOOD SPECIMENOrdering Facility: [facility] Address: [address] [place] [address] Performed By: #### A LLBG ####[facility] LABCLIA [id number] [place] [address] [place] O2 THERAPY VENT=Ventilator Normal [facility] Comment on above: Order Comment: Speci men Type: ARTERIAL BLOOD SPECIMENOrdering Facility: [facility] Address: [address] [place] [address] Performed By: #### A LLBG ####[facility] LABCLIA [id number] [place] [address] [place] Oxygen (Bld) [Partial pressure] 85 mm Hg Normal 85-95 [facility] Comment on above: Order Comment: Speci men Type: ARTERIAL BLOOD SPECIMENOrdering Facility: [facility] Address: [address] [place] [address] Performed By: #### A LLBG ####[facility] LABCLIA [id number] [place] [address] [place] Oxygen adjusted to patient's actual temperature (Bld) [Partial pressure] 86 mmHg Normal 85-95 [facility] Comment on above: Order Comment: Speci men Type: ARTERIAL BLOOD SPECIMENOrdering Facility: [facility] Address: [address] [place] [id number] Performed By: #### A LLBG ####[facility] LABCLIA [id number] [place] [id number] [place] Oxyhemoglobin (BldA) [Mass fraction] 95 % Normal 95-98 [facility] Comment on above: Order Comment: Speci men Type: ARTERIAL BLOOD SPECIMENOrdering Facility: [facility] Address: [address] [place] [address] Performed By: #### A LLBG ####[facility] LABCLIA [id number] [place] [address] [place] pH (Bld) 7.42 [pH] Normal 7.35-7.45 [facility] Comment on above: Order Comment: Speci men Type: ARTERIAL BLOOD SPECIMENOrdering Facility: [facility] Address: [address] [place] [address] Performed By: #### A LLBG ####[facility] LABCLIA [id number] [place] [address] [place] pH adjusted to patient's actual temperature (Bld) 7.42 Normal 7.35-7.45 [facility] Comment on above: Order Comment: Speci men Type: ARTERIAL BLOOD SPECIMENOrdering Facility: [facility] Address: [address] [place] [address] Performed By: #### A LLBG ####[facility] LABCLIA [id number] [place] [address] [place] PO2 / FIO2 RATIO 213 mmHg Low >300 [facility] Comment on above: Order Comment: Speci men Type: ARTERIAL BLOOD SPECIMENOrdering Facility: [facility] Address: [address] [place] [address] Performed By: #### A LLBG ####[facility] LABCLIA [id number] [place] [address] [place] Potassium [Moles/Vol] 4.1 mmol/L Normal 3.5-5.0 [facility] Comment on above: Order Comment: Speci men Type: ARTERIAL BLOOD SPECIMENOrdering Facility: [facility] Address: [address] [place] [address] Performed By: #### A LLBG ####[facility] LABCLIA [id number] [place] [address] [place] Sodium [Moles/Vol] 147 mmol/L High 136-144 [facility] Comment on above: Order Comment: Speci men Type: ARTERIAL BLOOD SPECIMENOrdering Facility: [facility] Address: [address] [place] [address] Performed By: #### A LLBG ####[facility] LABCLIA [id number] [place] [address] [place] Base excess Calc (Bld) [Moles/Vol] 3 mmol/L High 0-2 [facility] Comment on above: Order Comment: Speci men Type: ARTERIAL BLOOD SPECIMENOrdering Facility: [facility] Address: [address] [place] [address] Performed By: #### A LLBG ####[facility] LABCLIA [id number] [place] [address] [place] Body temperature 98.6 [degF] Normal [facility] Comment on above: Order Comment: Speci men Type: ARTERIAL BLOOD SPECIMENOrdering Facility: [facility] Address: [address] [place] [address] Performed By: #### A LLBG ####[facility] LABCLIA [id number] [place] [address] [place] Calcium.ionized (Bld) [Mass/Vol] 1.18 mmol/L Normal 1.08-1.30 [facility] Comment on above: Order Comment: Speci men Type: ARTERIAL BLOOD SPECIMENOrdering Facility: [facility] Address: [address] [place] [address] Performed By: #### A LLBG ####[facility] LABCLIA [id number] [place] [address] [place] Calcium.ionized adjusted to pH 7.4 (BldA) [Moles/Vol] 1.18 mmol/L Normal 1.08-1.30 [facility] Comment on above: Order Comment: Speci men Type: ARTERIAL BLOOD SPECIMENOrdering Facility: [facility] Address: [address] [place] [address] Performed By: #### A LLBG ####[facility] LABCLIA [id number] [place] [address] [place] Carboxyhemoglobin (BldA) [Mass fraction] 1.3 % Normal 0.0-2.0 [facility] Comment on above: Order Comment: Speci men Type: ARTERIAL BLOOD SPECIMENOrdering Facility: [facility] Address: [address] [place] [address] Result Comment: Carb oxyhemoglobin Reference Range for Smokers: 2.0-8.0% Performed By: #### A LLBG ####[facility] LABCLIA [id number] [place] [address] [place] CO2 (Bld) [Partial pressure] 46 mm Hg Normal 36-46 [facility] Comment on above: Order Comment: Speci men Type: ARTERIAL BLOOD SPECIMENOrdering Facility: [facility] Address: [address] [place] [address] Performed By: #### A LLBG ####[facility] LABCLIA [id number] [place] [address] [place] FIO2 40 % Normal [facility] Comment on above: Order Comment: Speci men Type: ARTERIAL BLOOD SPECIMENOrdering Facility: [facility] Address: [address] [place] [address] Performed By: #### A LLBG ####[facility] LABCLIA [id number] [place] [address] [place] Glucose [Mass/Vol] 89 mg/dL Normal 60-105 [facility] Comment on above: Order Comment: Speci men Type: ARTERIAL BLOOD SPECIMENOrdering Facility: [facility] Address: [address] [place] [address] Performed By: #### A LLBG ####[facility] LABCLIA [id number] [place] [address] [place] HCO3 (Bld) [Moles/Vol] 28 mmol/L High 22-26 [facility] Comment on above: Order Comment: Speci men Type: ARTERIAL BLOOD SPECIMENOrdering Facility: [facility] Address: [address] [place] [address] Performed By: #### A LLBG ####[facility] LABCLIA [id number] [place] [address] [place] Hematocrit (Bld) [Volume fraction] 33.5 % Low 36.0-46.0 [facility] Comment on above: Order Comment: Speci men Type: ARTERIAL BLOOD SPECIMENOrdering Facility: [facility] Address: [address] [place] [address] Performed By: #### A LLBG ####[facility] LABIA [id number] [place] [address] [place] Hemoglobin (Bld) [Mass/Vol] 10.9 g/dL Low 11.5-15.5 [facility] Comment on above: Order Comment: Speci men Type: ARTERIAL BLOOD SPECIMENOrdering Facility: [facility] Address: [address] [place] [address] Performed By: #### A LLBG ####[facility] LABCLIA [id number] [place] [address] [place] Lactate [Moles/Vol] 0.5 mmol/L Normal 0.5-2.2 [facility] Comment on above: Order Comment: Speci men Type: ARTERIAL BLOOD SPECIMENOrdering Facility: [facility] Address: [address] [place] [address] Performed By: #### A LLBG ####[facility] LABCLIA [id number] [place] [address] [place] Methemoglobin (Bld) [Mass fraction] 1.1 % Normal 0.0-1.5 [facility] Comment on above: Order Comment: Speci men Type: ARTERIAL BLOOD SPECIMENOrdering Facility: [facility] Address: [address] [place] [address] Performed By: #### A LLBG ####[facility] LABCLIA [id number] [place] [address] [place] O2 THERAPY VENT=Ventilator Normal [facility] Comment on above: Order Comment: Speci men Type: ARTERIAL BLOOD SPECIMENOrdering Facility: [facility] Address: [address] [place] [address] Performed By: #### A LLBG ####[facility] LABCLIA [id number] [place] [address] [place] Oxygen (Bld) [Partial pressure] 109 mm Hg High 85-95 [facility] Comment on above: Order Comment: Speci men Type: ARTERIAL BLOOD SPECIMENOrdering Facility: [facility] Address: [address] [place] [address] Performed By: #### A LLBG ####[facility] LABCLIA [id number] [address] [place] Oxyhemoglobin (BldA) [Mass fraction] 96 % Normal 95-98 [facility] Comment on above: Order Comment: Speci men Type: ARTERIAL BLOOD SPECIMENOrdering Facility: [facility] Address: [address] [place] [address] Performed By: #### A LLBG ####[facility] LABCLIA [id number] [place] [address] [place] PEEP/CPAP 8 cmH2O Normal [facility] Comment on above: Order Comment: Speci men Type: ARTERIAL BLOOD SPECIMENOrdering Facility: [facility] Address: [address] [place] [address] Performed By: #### A LLBG ####[facility] LABCLIA [id number] [place] [address] [place] pH (Bld) 7.40 [pH] Normal 7.35-7.45 [facility] Comment on above: Order Comment: Speci men Type: ARTERIAL BLOOD SPECIMENOrdering Facility: [facility] Address: [address] [place] [address] Performed By: #### A LLBG ####[facility] LABCLIA [id number] [place] [address] [place] PO2 / FIO2 RATIO 273 mmHg Low >300 [facility] Comment on above: Order Comment: Speci men Type: ARTERIAL BLOOD SPECIMENOrdering Facility: [facility] Address: [address] [place] [address] Performed By: #### A LLBG ####[facility] LABCLIA [id number] [place] [address] [place] Potassium [Moles/Vol] 4.2 mmol/L Normal 3.5-5.0 [facility] Comment on above: Order Comment: Speci men Type: ARTERIAL BLOOD SPECIMENOrdering Facility: [facility] Address: [address] [place] [address] Performed By: #### A LLBG ####[facility] LABCLIA [id number] [place] [address] [place] Sodium [Moles/Vol] 146 mmol/L High 136-144 [facility] Comment on above: Order Comment: Speci men Type: ARTERIAL BLOOD SPECIMENOrdering Facility: [facility] Address: [address] [place] [address] Performed By: #### A LLBG ####[facility] LABCLIA [id number] [place] [address] [place] Base excess Calc (Bld) [Moles/Vol] 5 mmol/L High 0-2 [facility] Comment on above: Order Comment: Speci men Type: ARTERIAL BLOOD SPECIMENOrdering Facility: [facility] Address: [address] [place] [address] Performed By: #### A LLBG ####[facility] LABCLIA [id number] [place] [address] [place] Body temperature 98.42 [degF] Normal [facility] Comment on above: Order Comment: Speci men Type: ARTERIAL BLOOD SPECIMENOrdering Facility: [facility] Address: [address] [place] [address] Performed By: #### A LLBG ####[facility] LABCLIA [id number] [place] [address] [place] Calcium.ionized (Bld) [Mass/Vol] 1.16 mmol/L Normal 1.08-1.30 [facility] Comment on above: Order Comment: Speci men Type: ARTERIAL BLOOD SPECIMENOrdering Facility: [facility] Address: [address] [place] [address] Performed By: #### A LLBG ####[facility] LABCLIA [id number] [place] [address] [place] Calcium.ionized adjusted to pH 7.4 (BldA) [Moles/Vol] 1.18 mmol/L Normal 1.08-1.30 [facility] Comment on above: Order Comment: Speci men Type: ARTERIAL BLOOD SPECIMENOrdering Facility: [facility] Address: [address] [place] [address] Performed By: #### A LLBG ####[facility] LABCLIA [id number] [place] [address] [place] Carboxyhemoglobin (BldA) [Mass fraction] 0.8 % Normal 0.0-2.0 [facility] Comment on above: Order Comment: Speci men Type: ARTERIAL BLOOD SPECIMENOrdering Facility: [facility] Address: [address] [place] [address] Performed By: #### A LLBG ####[facility] LABCLIA [id number] [place] [address] [place] CO2 (Bld) [Partial pressure] 45 mm Hg Normal 36-46 [facility] Comment on above: Order Comment: Speci men Type: ARTERIAL BLOOD SPECIMENOrdering Facility: [facility] Address: [address] [place] [address] Performed By: #### A LLBG ####[facility] LABCLIA [id number] [place] [address] [place] CO2 adjusted to patient's actual temperature (Bld) [Partial pressure] 45 mmHg Normal 36-46 [facility] Comment on above: Order Comment: Speci men Type: ARTERIAL BLOOD SPECIMENOrdering Facility: [facility] Address: [address] [place] [address] Performed By: #### A LLBG ####[facility] LABCLIA [id number] [place] [address] [place] FIO2 60 % Normal [facility] Comment on above: Order Comment: Speci men Type: ARTERIAL BLOOD SPECIMENOrdering Facility: [facility] Address: [address] [place] [address] Performed By: #### A LLBG ####[facility] LABCLIA [id number] [place] [address] [place] Glucose [Mass/Vol] 101 mg/dL Normal 60-105 [facility] Comment on above: Order Comment: Speci men Type: ARTERIAL BLOOD SPECIMENOrdering Facility: [facility] Address: [address] [place] [address] Performed By: #### A LLBG ####[facility] LABCLIA [id number] [place] [address] [place] HCO3 (Bld) [Moles/Vol] 30 mmol/L High 22-26 [facility] Comment on above: Order Comment: Speci men Type: ARTERIAL BLOOD SPECIMENOrdering Facility: [facility] Address: [address] [place] [address] Performed By: #### A LLBG ####[facility] LABCLIA [id number] [place] [address] [place] Hematocrit (Bld) [Volume fraction] 33.9 % Low 36.0-46.0 [facility] Comment on above: Order Comment: Speci men Type: ARTERIAL BLOOD SPECIMENOrdering Facility: [facility] Address: [address] [place] [address] Performed By: #### A LLBG ####[facility] LABCLIA [id number] [place] [address] [place] Hemoglobin (Bld) [Mass/Vol] 11.0 g/dL Low 11.5-15.5 [facility] Comment on above: Order Comment: Speci men Type: ARTERIAL BLOOD SPECIMENOrdering Facility: [facility] Address: [address] [place] [address] Performed By: #### A LLBG ####[facility] LABCLIA [id number] [place] [address] [place] Lactate [Moles/Vol] 0.6 mmol/L Normal 0.5-2.2 [facility] Comment on above: Order Comment: Speci men Type: ARTERIAL BLOOD SPECIMENOrdering Facility: [facility] Address: [address] [place] [address] Performed By: #### A LLBG ####[facility] LABCLIA [id number] [place] [address] [place] Methemoglobin (Bld) [Mass fraction] 1.0 % Normal 0.0-1.5 [facility] Comment on above: Order Comment: Speci men Type: ARTERIAL BLOOD SPECIMENOrdering Facility: [facility] Address: [address] [place] [address] Performed By: #### A LLBG ####[facility] LABCLIA [id number] [place] [address] [place] O2 THERAPY VENT=Ventilator Normal [facility] Comment on above: Order Comment: Speci men Type: ARTERIAL BLOOD SPECIMENOrdering Facility: [facility] Address: [address] [place] [address] Performed By: #### A LLBG ####[facility] LABCLIA [id number] [place] [address] [place] Oxygen (Bld) [Partial pressure] 157 mm Hg High 85-95 [facility] Comment on above: Order Comment: Speci men Type: ARTERIAL BLOOD SPECIMENOrdering Facility: [facility] Address: [address] [place] [address] Performed By: #### A LLBG ####[facility] LABCLIA [id number] [place] [address] [place] Oxygen adjusted to patient's actual temperature (Bld) [Partial pressure] 157 mmHg High 85-95 [facility] Comment on above: Order Comment: Speci men Type: ARTERIAL BLOOD SPECIMENOrdering Facility: [facility] Address: [address] [place] [address] Performed By: #### A LLBG ####[facility] LABCLIA [id number] [place] [address] [place] Oxyhemoglobin (BldA) [Mass fraction] 97 % Normal 95-98 [facility] Comment on above: Order Comment: Speci men Type: ARTERIAL BLOOD SPECIMENOrdering Facility: [facility] Address: [address] [place] [address] Performed By: #### A LLBG ####[facility] LABCLIA [id number] [place] [address] [place] PEEP/CPAP 10 cmH2O Normal [facility] Comment on above: Order Comment: Speci men Type: ARTERIAL BLOOD SPECIMENOrdering Facility: [facility] Address: [address] [place] [address] Performed By: #### A LLBG ####[facility] LABCLIA [id number] [place] [address] [place] pH (Bld) 7.43 [pH] Normal 7.35-7.45 [facility] Comment on above: Order Comment: Speci men Type: ARTERIAL BLOOD SPECIMENOrdering Facility: [facility] Address: [address] [place] [address] Performed By: #### A LLBG ####[facility] LABCLIA [id number] [place] [address] [place] pH adjusted to patient's actual temperature (Bld) 7.44 Normal 7.35-7.45 [facility] Comment on above: Order Comment: Speci men Type: ARTERIAL BLOOD SPECIMENOrdering Facility: [facility] Address: [address] [place] [address] Performed By: #### A LLBG ####[facility] LABCLIA [id number] [place] [address] [place] PO2 / FIO2 RATIO 262 mmHg Low >300 [facility] Comment on above: Order Comment: Speci men Type: ARTERIAL BLOOD SPECIMENOrdering Facility: [facility] Address: [address] [place] [address] Performed By: #### A LLBG ####[facility] LABCLIA [id number] [place] [address] [place] Potassium [Moles/Vol] 3.9 mmol/L Normal 3.5-5.0 [facility] Comment on above: Order Comment: Speci men Type: ARTERIAL BLOOD SPECIMENOrdering Facility: [facility] Address: [address] [place] [address] Performed By: #### A LLBG ####[facility] LABCLIA [id number] [place] [address] [place] Sodium [Moles/Vol] 144 mmol/L Normal 136-144 [facility] Comment on above: Order Comment: Speci men Type: ARTERIAL BLOOD SPECIMENOrdering Facility: [facility] Address: [address] [place] [address] Performed By: #### A LLBG ####[facility] LABCLIA [id number] [place] [address] [place] Base excess Calc (Bld) [Moles/Vol] 4 mmol/L High 0-2 [facility] Comment on above: Order Comment: Speci men Type: ARTERIAL BLOOD SPECIMENOrdering Facility: [facility] Address: [address] [place] [address] Performed By: #### A LLBG ####[facility] LABCLIA [id number] [place] [address] [place] Body temperature 98.6 [degF] Normal [facility] Comment on above: Order Comment: Speci men Type: ARTERIAL BLOOD SPECIMENOrdering Facility: [facility] Address: [address] [place] [address] Performed By: #### A LLBG ####[facility] LABCLIA [id number] [place] [address] [place] Calcium.ionized (Bld) [Mass/Vol] 1.16 mmol/L Normal 1.08-1.30 [facility] Comment on above: Order Comment: Speci men Type: ARTERIAL BLOOD SPECIMENOrdering Facility: [facility] Address: [address] [place] [address] Performed By: #### A LLBG ####[facility] LABCLIA [id number] [place] [address] [place] Calcium.ionized adjusted to pH 7.4 (BldA) [Moles/Vol] 1.19 mmol/L Normal 1.08-1.30 [facility] Comment on above: Order Comment: Speci men Type: ARTERIAL BLOOD SPECIMENOrdering Facility: [facility] Address: [address] [place] [address] Performed By: #### A LLBG ####[facility] LABIA [id number] [place] [address] [place] Carboxyhemoglobin (BldA) [Mass fraction] 0.8 % Normal 0.0-2.0 [facility] Comment on above: Order Comment: Speci men Type: ARTERIAL BLOOD SPECIMENOrdering Facility: [facility] Address: [address] [place] [address] Result Comment: Carb oxyhemoglobin Reference Range for Smokers: 2.0-8.0% Performed By: #### A LLBG ####[facility] LABCLIA [id number] [place] [address] [place] CO2 (Bld) [Partial pressure] 41 mm Hg Normal 36-46 [facility] Comment on above: Order Comment: Speci men Type: ARTERIAL BLOOD SPECIMENOrdering Facility: [facility] Address: [address] [place] [address] Performed By: #### A LLBG ####[facility] LABCLIA [id number] [place] [address] [place] FIO2 60 % Normal [facility] Comment on above: Order Comment: Speci men Type: ARTERIAL BLOOD SPECIMENOrdering Facility: [facility] Address: [address] [place] [address] Performed By: #### A LLBG ####[facility] LABCLIA [id number] [place] [address] [place] Glucose [Mass/Vol] 196 mg/dL High 60-105 [facility] Comment on above: Order Comment: Speci men Type: ARTERIAL BLOOD SPECIMENOrdering Facility: [facility] Address: [address] [place] [address] Performed By: #### A LLBG ####[facility] LABCLIA [id number] [place] [address] [place] HCO3 (Bld) [Moles/Vol] 28 mmol/L High 22-26 [facility] Comment on above: Order Comment: Speci men Type: ARTERIAL BLOOD SPECIMENOrdering Facility: [facility] Address: [address] [place] [address] Performed By: #### A LLBG ####[facility] LABCLIA [id number] [place] [address] [place] Hematocrit (Bld) [Volume fraction] 35.0 % Low 36.0-46.0 [facility] Comment on above: Order Comment: Speci men Type: ARTERIAL BLOOD SPECIMENOrdering Facility: [facility] Address: [address] [place] [address] Performed By: #### A LLBG ####[facility] LABCLIA [id number] [place] [address] [place] Hemoglobin (Bld) [Mass/Vol] 11.4 g/dL Low 11.5-15.5 [facility] Comment on above: Order Comment: Speci men Type: ARTERIAL BLOOD SPECIMENOrdering Facility: [facility] Address: [address] [place] [address] Performed By: #### A LLBG ####[facility] LABCLIA [id number] [place] [address] [place] Lactate [Moles/Vol] 1.0 mmol/L Normal 0.5-2.2 [facility] Comment on above: Order Comment: Speci men Type: ARTERIAL BLOOD SPECIMENOrdering Facility: [facility] Address: [address] [place] [address] Performed By: #### A LLBG ####[facility] LABCLIA [id number] [place] [id number] [place] Methemoglobin (Bld) [Mass fraction] 1.2 % Normal 0.0-1.5 [facility] Comment on above: Order Comment: Speci men Type: ARTERIAL BLOOD SPECIMENOrdering Facility: [facility] Address: [address] [place] [address] Performed By: #### A LLBG ####[facility] LABCLIA [id number] [place] [address] [place] O2 THERAPY VENT=Ventilator Normal [facility] Comment on above: Order Comment: Speci men Type: ARTERIAL BLOOD SPECIMENOrdering Facility: [facility] Address: [address] [place] [address] Performed By: #### A LLBG ####[facility] LABCLIA [id number] [place] [address] [place] Oxygen (Bld) [Partial pressure] 132 mm Hg High 85-95 [facility] Comment on above: Order Comment: Speci men Type: ARTERIAL BLOOD SPECIMENOrdering Facility: [facility] Address: [address] [place] [address] Performed By: #### A LLBG ####[facility] LABCLIA [id number] [place] [id number] [place] Oxyhemoglobin (BldA) [Mass fraction] 97 % Normal 95-98 [facility] Comment on above: Order Comment: Speci men Type: ARTERIAL BLOOD SPECIMENOrdering Facility: [facility] Address: [address] [place] [address] Performed By: #### A LLBG ####[facility] LABCLIA [id number] [address] [place] PEEP/CPAP 10 cmH2O Normal [facility] Comment on above: Order Comment: Speci men Type: ARTERIAL BLOOD SPECIMENOrdering Facility: [facility] Address: [address] [place] [address] Performed By: #### A LLBG ####[facility] LABCLIA [id number] [place] [address] [place] pH (Bld) 7.44 [pH] Normal 7.35-7.45 [facility] Comment on above: Order Comment: Speci men Type: ARTERIAL BLOOD SPECIMENOrdering Facility: [facility] Address: [address] [place] [address] Performed By: #### A LLBG ####[facility] LABCLIA [id number] [place] [address] [place] PO2 / FIO2 RATIO 220 mmHg Low >300 [facility] Comment on above: Order Comment: Speci men Type: ARTERIAL BLOOD SPECIMENOrdering Facility: [facility] Address: [address] [place] [address] Performed By: #### A LLBG ####[facility] LABCLIA [id number] [place] [address] [place] Potassium [Moles/Vol] 3.8 mmol/L Normal 3.7-5.1 [facility] Comment on above: Order Comment: Speci men Type: ARTERIAL BLOOD SPECIMENOrdering Facility: [facility] Address: [address] [place] [address] Performed By: #### A LLBG ####[facility] LABCLIA [id number] [place] [address] [place] Order Comment: Speci men Type: BLOOD SPECIMENOrdering Facility: [facility] Address: [address] [place] [address] Performed By: #### 2 4323-8, 2777-1 ####[facility] LABCLIA [id number] [place] [address] [place] Sodium [Moles/Vol] 141 mmol/L Normal 136-144 [facility] Comment on above: Order Comment: Speci men Type: ARTERIAL BLOOD SPECIMENOrdering Facility: [facility] Address: [address] [place] [address] Performed By: #### A LLBG ####[facility] LABCLIA [id number] [place] [address] [place] CASE MGT INIT ASSESon 2024 CASE MGT INIT ASSES Normal [facility] CBC panel Auto (Bld)on 03-19 Erythrocyte distribution width (RBC) [Ratio] 16.5 % High 11.5-15.0 [facility] Comment on above: Order Comment: Speci men Type: BLOOD SPECIMENOrdering Facility: [facility] Address: [address] [place] [address] Performed By: #### 5 8410-2 ####[facility] LABCLIA [id number] [place] [address] [place] Hematocrit (Bld) [Volume fraction] 35.5 % Low 36.0-46.0 [facility] Comment on above: Order Comment: Speci men Type: BLOOD SPECIMENOrdering Facility: [facility] Address: [address] [place] [address] Performed By: #### 5 8410-2 ####[facility] LABCLIA [id number] [place] [address] [place] Hemoglobin (Bld) [Mass/Vol] 11.0 g/dL Low 11.5-15.5 [facility] Comment on above: Order Comment: Speci men Type: BLOOD SPECIMENOrdering Facility: [facility] Address: [address] [place] [address] Performed By: #### 5 8410-2 ####[facility] LABCLIA [id number] [place] [address] [place] MCH (RBC) [Entitic mass] 23.0 pg Low 26.0-34.0 [facility] Comment on above: Order Comment: Speci men Type: BLOOD SPECIMENOrdering Facility: [facility] Address: [address] [place] [address] Performed By: #### 5 8410-2 ####[facility] LABCLIA [id number] [address] [place] MCHC (RBC) [Mass/Vol] 31.0 g/dL Normal 30.5-36.0 [facility] Comment on above: Order Comment: Speci men Type: BLOOD SPECIMENOrdering Facility: [facility] Address: [address] [place] [address] Performed By: #### 5 8410-2 ####[facility] LABCLIA [id number] [place] [address] [place] MCV (RBC) [Entitic vol] 74.1 fL Low 80.0-100.[address] [facility] Comment on above: Order Comment: Speci men Type: BLOOD SPECIMENOrdering Facility: [facility] Address: [address] [place] [address] Performed By: #### 5 8410-2 ####[facility] LABCLIA [id number] [place] [address] [place] Nucleated RBC (Bld) [#/Vol] 0.02 10*3/uL High <0.01 [facility] Comment on above: Order Comment: Speci men Type: BLOOD SPECIMENOrdering Facility: [facility] Address: [address] [place] [address] Performed By: #### 5 8410-2 ####[facility] LABCLIA [id number] [place] [address] [place] Platelet mean volume (Bld) [Entitic vol] 10.1 fL Normal 9.0-12.7 [facility] Comment on above: Order Comment: Speci men Type: BLOOD SPECIMENOrdering Facility: [facility] Address: [address] [place] [address] Performed By: #### 5 8410-2 ####[facility] LABCLIA [id number] [place] [address] [place] Platelets (Bld) [#/Vol] 184 10*3/uL Normal 150-400 [facility] Comment on above: Order Comment: Speci men Type: BLOOD SPECIMENOrdering Facility: [facility] Address: [address] [place] [address] Performed By: #### 5 8410-2 ####[facility] LABCLIA [id number] [place] [address] [place] RBC (Bld) [#/Vol] 4.79 10*6/uL Normal 3.90-5.20 [facility] Comment on above: Order Comment: Speci men Type: BLOOD SPECIMENOrdering Facility: [facility] Address: [address] [place] [address] Performed By: #### 5 8410-2 ####[facility] LABCLIA [id number] [place] [address] [place] WBC (Bld) [#/Vol] 5.74 10*3/uL Normal 3.70-11.00 [facility] Comment on above: Order Comment: Speci men Type: BLOOD SPECIMENOrdering Facility: [facility] Address: [address] [place] [address] Performed By: #### 5 8410-2 ####[facility] LABCLIA [id number] [place] [address] [place] Comprehensive metabolic 2000 panelon 03-19-2025 Albumin [Mass/Vol] 3.8 g/dL Low 3.9-4.9 [facility] Comment on above: Order Comment: Speci men Type: BLOOD SPECIMENOrdering Facility: [facility] Address: [address] [place] [address] Performed By: #### 2 4323-8, 2777-1 ####[facility] LABCLIA [id number] [place] [address] [place] ALP [Catalytic activity/Vol] 53 U/L Normal 34-123 [facility] Comment on above: Order Comment: Speci men Type: BLOOD SPECIMENOrdering Facility: [facility] Address: [address] [place] [address] Performed By: #### 2 4323-8, 2776-05 ####[facility] LABCLIA [id number] [place] [address] [place] ALT [Catalytic activity/Vol] 26 U/L Normal 7-38 [facility] Comment on above: Order Comment: Speci men Type: BLOOD SPECIMENOrdering Facility: [facility] Address: [address] [place] [address] Performed By: #### 2 4323-8, 2776-05 ####[facility] LABCLIA [id number] [place] [address] [place] Anion gap [Moles/Vol] 10 mmol/L Normal 8-15 [facility] Comment on above: Order Comment: Speci men Type: BLOOD SPECIMENOrdering Facility: [facility] Address: [address] [place] [address] Performed By: #### 2 4323-8, 2776-05 ####[facility] LABCLIA [id number] [place] [address] [place] AST [Catalytic activity/Vol] 35 U/L Normal 13-35 [facility] Comment on above: Order Comment: Speci men Type: BLOOD SPECIMENOrdering Facility: [facility] Address: [address] [place] [address] Performed By: #### 2 4323-8, 2776-05 ####[facility] LABCLIA [id number] [place] [address] [place] Bilirubin [Mass/Vol] 0.5 mg/dL Normal 0.2-1.3 [facility] Comment on above: Order Comment: Speci men Type: BLOOD SPECIMENOrdering Facility: [facility] Address: [address] [place] [address] Performed By: #### 2 4323-8, 277- ####[facility] LABCLIA [id number] [place] [address] [place] Calcium [Mass/Vol] 8.6 mg/dL Normal 8.5-10.2 [facility] Comment on above: Order Comment: Speci men Type: BLOOD SPECIMENOrdering Facility: [facility] Address: [address] [place] [address] Performed By: #### 2 4323-8, 2777- ####[facility] LABCLIA [id number] [place] [address] [place] Chloride [Moles/Vol] 105 mmol/L Normal 98-107 [facility] Comment on above: Order Comment: Speci men Type: BLOOD SPECIMENOrdering Facility: [facility] Address: [address] [place] [address] Performed By: #### 2 4323-8, 277- ####[facility] LABCLIA [id number] [place] [address] [place] CO2 [Moles/Vol] 27 mmol/L Normal 22-30 [facility] Comment on above: Order Comment: Speci men Type: BLOOD SPECIMENOrdering Facility: [facility] Address: [address] [place] [address] Performed By: #### 2 4323-8, 27711-05 ####[facility] LABCLIA [id number] [place] [address] [place] Creatinine [Mass/Vol] 0.62 mg/dL Normal 0.58-0.96 [facility] Comment on above: Order Comment: Speci men Type: BLOOD SPECIMENOrdering Facility: [facility] Address: [address] [place], [place] [address] Performed By: #### 2 4323-8, 2777- ####[facility] LABCLIA [id number] [place] [id number] [place] eGFRcr SerPlBld CKD-EPI 2020 122 mL/min/1.73m??? Normal >=60 [facility] Comment on above: Order Comment: Speci men Type: BLOOD SPECIMENOrdering Facility: [facility] Address: [address] [place] [address] Result Comment: Vi mated Glomerular Filtration Rate [...] GFR. Performed By: #### 2 4323-8, 27711-05 ####[facility] LABCLIA [id number] [place] [address] [place] Glucose [Mass/Vol] 192 mg/dL High 74-99 [facility] Comment on above: Order Comment: Michele ash Type: BLOOD SPECIMENOrdering Facility: [facility] Address: [address] [place] [address] Result Comment: The [place] [employer] (ADA) provides guidance for cutoff [...] Standards of Medical Care in Diabetes 2016, [place] [employer]. Diabetes Care. 2016.39(Suppl 1). Performed By: #### 2 4323-8, 27711-05 ####[facility] LABCLIA [id number] [place] [id number] [place] Protein [Mass/Vol] 5.2 g/dL Low 6.3-8.0 [facility] Comment on above: Order Comment: Michele ash Type: BLOOD SPECIMENOrdering Facility: [facility] Address: [address] [place] [address] Performed By: #### 2 4323-8, 277-1 ####[facility] LABCLIA [id number] [place] [address] [place] Sodium [Moles/Vol] 142 mmol/L Normal 136-144 [facility] Comment on above: Order Comment: Michele ash Type: BLOOD SPECIMENOrdering Facility: [facility] Address: [address] [place] [address] Performed By: #### 2 4323-8, 2777-1 ####[facility] LABCLIA [id number] [place] [address] [place] Urea nitrogen [Mass/Vol] 7 mg/dL Normal 7-21 [facility] Comment on above: Order Comment: iMchele ash Type: BLOOD SPECIMENOrdering Facility: [facility] Address: [address] [place] [address] Performed By: #### 2 4323-8, 2777-1 ####[facility] LABCLIA [id number] [address] [place] PT panel Coag (PPP)on 2024 INR Coag (PPP) [Relative time] 1.0 {INR} Normal 0.9-1.3 [facility] Comment on above: Order Comment: Michele ash Type: BLOOD SPECIMENOrdering Facility: [facility] Address: [address] [place] [address] Result Comment: Jennifer min K Antagonist (VKA) Therapeutic Range: INR 2 to 3 (Target INR of 2.5)Note: For patients treated with VKA drugs, such as warfarin, the [place] [employer] 2012 Guideline recommends [...] al. Chest 2012, 141:7S-47SNishimdon RA, et al. [facility] 2017, 70: 252-289 Performed By: #### 3 4528-0, 45494-8 ####[facility] LABCLIA [id number] [place] [address] [place] PT Coag (PPP) [Time] 10.7 s Normal 9.7-13.0 [facility] Comment on above: Order Comment: Speci men Type: BLOOD SPECIMENOrdering Facility: [facility] Address: [address] [place] [address] Performed By: #### 3 4528-0, 64703-6 ####[facility] LABCLIA [id number] [place] [id number] [place] Phosphate SerPl-mCncon 03-19 Phosphate [Mass/Vol] 1.0 mg/dL Low 2.7-4.8 [facility] Comment on above: Order Comment: Speci men Type: BLOOD SPECIMENOrdering Facility: [facility] Address: [address] [place] [address] Result Comment: Resu lt rechecked. Performed By: #### 2 4323-8, 2777-1 ####[facility] LABCLIA [id number] [address] [place] THERAPY NTon 03-19-2025 THERAPY NT Normal [facility] XR ABDOMEN 1V SUPINEon 03-19 XR ABDOMEN 1V SUPINE Normal [facility] XR CHEST 1V FRONTAL PORTon 1 05-19-2024 XR CHEST 1V FRONTAL PORT Normal [facility] aPTT PPPon 03-19-2025 aPTT Coag (PPP) [Time] 25.6 s Normal 23.0-32.4 [facility] Comment on above: Order Comment: Speci men Type: BLOOD SPECIMENOrdering Facility: [facility] Address: [address] [place] [address] Performed By: #### 3 4528-0, 75201-2 ####[facility] LABCLIA [id number] [place] [address] [place] ANES POSTPROC EVALon 025 ANES POSTPROC EVAL Normal [facility] ANES PRE-OPon 03-18-2025 ANES PRE-OP Normal [facility] ARTERIAL BLOOD GASESon 03-18 Base excess Calc (Bld) [Moles/Vol] 1 mmol/L Normal 0-2 [facility] Comment on above: Order Comment: Speci men Type: ARTERIAL BLOOD SPECIMENOrdering Facility: [facility] Address: [address] [place] [address] Performed By: #### A LLBG ####[facility] LABIA [id number] [place] [address] [place] Body temperature 97.7 [degF] Normal [facility] Comment on above: Order Comment: Speci men Type: ARTERIAL BLOOD SPECIMENOrdering Facility: [facility] Address: [address] [place] [address] Performed By: #### A LLBG ####[facility] LABIA [id number] [place] [address] [place] Calcium.ionized (Bld) [Mass/Vol] 1.14 mmol/L Normal 1.08-1.30 [facility] Comment on above: Order Comment: Speci men Type: ARTERIAL BLOOD SPECIMENOrdering Facility: [facility] Address: [address] [place] [address] Performed By: #### A LLBG ####[facility] LABCLIA [id number] [place] [address] [place] Calcium.ionized adjusted to pH 7.4 (BldA) [Moles/Vol] 1.13 mmol/L Normal 1.08-1.30 [facility] Comment on above: Order Comment: Speci men Type: ARTERIAL BLOOD SPECIMENOrdering Facility: [facility] Address: [address] [place] [address] Performed By: #### A LLBG ####[facility] LABCLIA [id number] [place] [address] [place] Carboxyhemoglobin (BldA) [Mass fraction] 1.3 % Normal 0.0-2.0 [facility] Comment on above: Order Comment: Speci men Type: ARTERIAL BLOOD SPECIMENOrdering Facility: [facility] Address: [address] [place] [address] Result Comment: Carb oxyhemoglobin Reference Range for Smokers: 2.0-8.0% Performed By: #### A LLBG ####[facility] LABCLIA [id number] [place] [address] [place] CO2 (Bld) [Partial pressure] 44 mm Hg Normal 36-46 [facility] Comment on above: Order Comment: Speci men Type: ARTERIAL BLOOD SPECIMENOrdering Facility: [facility] Address: [address] [place] [address] Performed By: #### A LLBG ####[facility] LABCLIA [id number] [place] [address] [place] CO2 adjusted to patient's actual temperature (Bld) [Partial pressure] 43 mmHg Normal 36-46 [facility] Comment on above: Order Comment: Speci men Type: ARTERIAL BLOOD SPECIMENOrdering Facility: [facility] Address: [address] [place] [address] Performed By: #### A LLBG ####[facility] LABCLIA [id number] [place] [address] [place] FIO2 60 % Normal [facility] Comment on above: Order Comment: Speci men Type: ARTERIAL BLOOD SPECIMENOrdering Facility: [facility] Address: [address] [place] [address] Performed By: #### A LLBG ####[facility] LABCLIA [id number] [place] [id number] [place] Glucose [Mass/Vol] 252 mg/dL High 60-105 [facility] Comment on above: Order Comment: Speci men Type: ARTERIAL BLOOD SPECIMENOrdering Facility: [facility] Address: [address] [place] [address] Performed By: #### A LLBG ####[facility] LABCLIA [id number] [place] [address] [place] HCO3 (Bld) [Moles/Vol] 26 mmol/L Normal 22-26 [facility] Comment on above: Order Comment: Speci men Type: ARTERIAL BLOOD SPECIMENOrdering Facility: [facility] Address: [address] [place] [address] Performed By: #### A LLBG ####[facility] LABCLIA [id number] [place] [address] [place] Hematocrit (Bld) [Volume fraction] 36.6 % Normal 36.0-46.0 [facility] Comment on above: Order Comment: Speci men Type: ARTERIAL BLOOD SPECIMENOrdering Facility: [facility] Address: [address] [place] [address] Performed By: #### A LLBG ####[facility] LABCLIA [id number] [place] [address] [place] Hemoglobin (Bld) [Mass/Vol] 11.9 g/dL Normal 11.5-15.5 [facility] Comment on above: Order Comment: Speci men Type: ARTERIAL BLOOD SPECIMENOrdering Facility: [facility] Address: [address] [place] [address] Performed By: #### A LLBG ####[facility] LABCLIA [id number] [place] [address] [place] Lactate [Moles/Vol] 3.0 mmol/L High 0.5-2.2 [facility] Comment on above: Order Comment: Speci men Type: ARTERIAL BLOOD SPECIMENOrdering Facility: [facility] Address: [address] [place] [address] Performed By: #### A LLBG ####[facility] LABCLIA [id number] [place] [address] [place] Methemoglobin (Bld) [Mass fraction] 2.0 % High 0.0-1.5 [facility] Comment on above: Order Comment: Speci men Type: ARTERIAL BLOOD SPECIMENOrdering Facility: [facility] Address: [address] [place] [address] Performed By: #### A LLBG ####[facility] LABCLIA [id number] [place] [id number] [place] O2 THERAPY VENT=Ventilator Normal [facility] Comment on above: Order Comment: Speci men Type: ARTERIAL BLOOD SPECIMENOrdering Facility: [facility] Address: [address] [place] [address] Performed By: #### A LLBG ####[facility] LABCLIA [id number] [place] [address] [place] Oxygen (Bld) [Partial pressure] 96 mm Hg High 85-95 [facility] Comment on above: Order Comment: Speci men Type: ARTERIAL BLOOD SPECIMENOrdering Facility: [facility] Address: [address] [place] [address] Performed By: #### A LLBG ####[facility] LABCLIA [id number] [place] [address] [place] Oxygen adjusted to patient's actual temperature (Bld) [Partial pressure] 93 mmHg Normal 85-95 [facility] Comment on above: Order Comment: Speci men Type: ARTERIAL BLOOD SPECIMENOrdering Facility: [facility] Address: [address] [place] [address] Performed By: #### A LLBG ####[facility] LABCLIA [id number] [place] [id number] [place] Oxyhemoglobin (BldA) [Mass fraction] 94 % Low 95-98 [facility] Comment on above: Order Comment: Speci men Type: ARTERIAL BLOOD SPECIMENOrdering Facility: [facility] Address: [address] [place], [place] [address] Performed By: #### A LLBG ####[facility] LABCLIA [id number] [place] [id number] [place] PEEP/CPAP 10 cmH2O Normal [facility] Comment on above: Order Comment: Speci men Type: ARTERIAL BLOOD SPECIMENOrdering Facility: [facility] Address: [address] [place] [address] Performed By: #### A LLBG ####[facility] LABCLIA [id number] [place] [address] [place] pH (Bld) 7.38 [pH] Normal 7.35-7.45 [facility] Comment on above: Order Comment: Speci men Type: ARTERIAL BLOOD SPECIMENOrdering Facility: [facility] Address: [address] [place] [address] Performed By: #### A LLBG ####[facility] LABCLIA [id number] [place] [address] [place] pH adjusted to patient's actual temperature (Bld) 7.39 Normal 7.35-7.45 [facility] Comment on above: Order Comment: Speci men Type: ARTERIAL BLOOD SPECIMENOrdering Facility: [facility] Address: [address] [place] [address] Performed By: #### A LLBG ####[facility] LABCLIA [id number] [place] [address] [place] PO2 / FIO2 RATIO 160 mmHg Low >300 [facility] Comment on above: Order Comment: Speci men Type: ARTERIAL BLOOD SPECIMENOrdering Facility: [facility] Address: [address] [place] [address] Performed By: #### A LLBG ####[facility] LABCLIA [id number] [place] [address] [place] Potassium [Moles/Vol] 3.8 mmol/L Normal 3.5-5.0 [facility] Comment on above: Order Comment: Speci men Type: ARTERIAL BLOOD SPECIMENOrdering Facility: [facility] Address: [address] [place] [address] Performed By: #### A LLBG ####[facility] LABCLIA [id number] [place] [address] [place] Sodium [Moles/Vol] 139 mmol/L Normal 136-144 [facility] Comment on above: Order Comment: Speci men Type: ARTERIAL BLOOD SPECIMENOrdering Facility: [facility] Address: [address] [place] [address] Performed By: #### A LLBG ####[facility] LABCLIA [id number] [place] [address] [place] Base deficit (BldA) [Moles/Vol] -2 mmol/L Normal -2-0 [facility] Comment on above: Order Comment: Speci men Type: ARTERIAL BLOOD SPECIMENOrdering Facility: [facility] Address: [address] [place] [address] Performed By: #### A LLBG ####[facility] LABCLIA [id number] [place] [address] [place] Body temperature 98.6 [degF] Normal [facility] Comment on above: Order Comment: Speci men Type: ARTERIAL BLOOD SPECIMENOrdering Facility: [facility] Address: [address] [place] [address] Performed By: #### A LLBG ####[facility] LABCLIA [id number] [place] [address] [place] Calcium.ionized (Bld) [Mass/Vol] 1.14 mmol/L Normal 1.08-1.30 [facility] Comment on above: Order Comment: Speci men Type: ARTERIAL BLOOD SPECIMENOrdering Facility: [facility] Address: [address] [place] [address] Performed By: #### A LLBG ####[facility] LABCLIA [id number] [place] [address] [place] Calcium.ionized adjusted to pH 7.4 (BldA) [Moles/Vol] 1.06 mmol/L Low 1.08-1.30 [facility] Comment on above: Order Comment: Speci men Type: ARTERIAL BLOOD SPECIMENOrdering Facility: [facility] Address: [address] [place] [address] Performed By: #### A LLBG ####[facility] LABCLIA [id number] [place] [address] [place] Carboxyhemoglobin (BldA) [Mass fraction] 0.9 % Normal 0.0-2.0 [facility] Comment on above: Order Comment: Speci men Type: ARTERIAL BLOOD SPECIMENOrdering Facility: [facility] Address: [address] [place] [address] Result Comment: Carb oxyhemoglobin Reference Range for Smokers: 2.0-8.0% Performed By: #### A LLBG ####[facility] LABCLIA [id number] [place] [address] [place] CO2 (Bld) [Partial pressure] 57 mm Hg High 36-46 [facility] Comment on above: Order Comment: Speci men Type: ARTERIAL BLOOD SPECIMENOrdering Facility: [facility] Address: [address] [place] [address] Performed By: #### A LLBG ####[facility] LABCLIA [id number] [place] [address] [place] FIO2 60 % Normal [facility] Comment on above: Order Comment: Speci men Type: ARTERIAL BLOOD SPECIMENOrdering Facility: [facility] Address: [address] [place] [address] Performed By: #### A LLBG ####[facility] LABCLIA [id number] [place] [address] [place] Glucose [Mass/Vol] 210 mg/dL High 60-105 [facility] Comment on above: Order Comment: Speci men Type: ARTERIAL BLOOD SPECIMENOrdering Facility: [facility] Address: [address] [place] [address] Performed By: #### A LLBG ####[facility] LABCLIA [id number] [place] [address] [place] HCO3 (Bld) [Moles/Vol] 25 mmol/L Normal 22-26 [facility] Comment on above: Order Comment: Speci men Type: ARTERIAL BLOOD SPECIMENOrdering Facility: [facility] Address: [address] [place] [address] Performed By: #### A LLBG ####[facility] LABCLIA [id number] [place] [address] [place] Hematocrit (Bld) [Volume fraction] 36.5 % Normal 36.0-46.0 [facility] Comment on above: Order Comment: Speci men Type: ARTERIAL BLOOD SPECIMENOrdering Facility: [facility] Address: [address] [place] [address] Performed By: #### A LLBG ####[facility] LABCLIA [id number] [place] [address] [place] Hemoglobin (Bld) [Mass/Vol] 11.8 g/dL Normal 11.5-15.5 [facility] Comment on above: Order Comment: Speci men Type: ARTERIAL BLOOD SPECIMENOrdering Facility: [facility] Address: [address] [place] [address] Performed By: #### A LLBG ####[facility] LABCLIA [id number] [place] [address] [place] Lactate [Moles/Vol] 3.0 mmol/L High 0.5-2.2 [facility] Comment on above: Order Comment: Speci men Type: ARTERIAL BLOOD SPECIMENOrdering Facility: [facility] Address: [address] [place] [address] Performed By: #### A LLBG ####[facility] LABCLIA [id number] [place] [address] [place] Methemoglobin (Bld) [Mass fraction] 1.3 % Normal 0.0-1.5 [facility] Comment on above: Order Comment: Speci men Type: ARTERIAL BLOOD SPECIMENOrdering Facility: [facility] Address: [address] [place] [address] Performed By: #### A LLBG ####[facility] LABCLIA [id number] [place] [address] [place] O2 THERAPY VENT=Ventilator Normal [facility] Comment on above: Order Comment: Speci men Type: ARTERIAL BLOOD SPECIMENOrdering Facility: [facility] Address: [address] [place] [address] Performed By: #### A LLBG ####[facility] LABCLIA [id number] [place] [address] [place] Oxygen (Bld) [Partial pressure] 81 mm Hg Low 85-95 [facility] Comment on above: Order Comment: Speci men Type: ARTERIAL BLOOD SPECIMENOrdering Facility: [facility] Address: [address] [place] [address] Performed By: #### A LLBG ####[facility] LABCLIA [id number] [place] [address] [place] Oxyhemoglobin (BldA) [Mass fraction] 92 % Low 95-98 [facility] Comment on above: Order Comment: Speci men Type: ARTERIAL BLOOD SPECIMENOrdering Facility: [facility] Address: [address] [place] [address] Performed By: #### A LLBG ####[facility] LABCLIA [id number] [place] [address] [place] pH (Bld) 7.27 [pH] Low 7.35-7.45 [facility] Comment on above: Order Comment: Speci men Type: ARTERIAL BLOOD SPECIMENOrdering Facility: [facility] Address: [address] [place] [address] Performed By: #### A LLBG ####[facility] LABCLIA [id number] [place] [address] [place] PO2 / FIO2 RATIO 135 mmHg Low >300 [facility] Comment on above: Order Comment: Speci men Type: ARTERIAL BLOOD SPECIMENOrdering Facility: [facility] Address: [address] [place] [address] Performed By: #### A LLBG ####[facility] LABCLIA [id number] [place] [address] [place] Potassium [Moles/Vol] 3.3 mmol/L Low 3.5-5.0 [facility] Comment on above: Order Comment: Speci men Type: ARTERIAL BLOOD SPECIMENOrdering Facility: [facility] Address: [address] [place] [address] Performed By: #### A LLBG ####[facility] LABCLIA [id number] [place] [address] [place] Sodium [Moles/Vol] 138 mmol/L Normal 136-144 [facility] Comment on above: Order Comment: Speci men Type: ARTERIAL BLOOD SPECIMENOrdering Facility: [facility] Address: [address] [place] [address] Performed By: #### A LLBG ####[facility] LABCLIA [id number] [place] [address] [place] Base deficit (BldA) [Moles/Vol] -2 mmol/L Normal -2-0 [facility] Comment on above: Order Comment: Speci men Type: ARTERIAL BLOOD SPECIMENOrdering Facility: [facility] Address: [address] [place] [address] Performed By: #### A LLBG ####[facility] LABCLIA [id number] [place] [address] [place] Body temperature 98.6 [degF] Normal [facility] Comment on above: Order Comment: Speci men Type: ARTERIAL BLOOD SPECIMENOrdering Facility: [facility] Address: [address] [place] [address] Performed By: #### A LLBG ####[facility] LABCLIA [id number] [place] [address] [place] Calcium.ionized (Bld) [Mass/Vol] 1.11 mmol/L Normal 1.08-1.30 [facility] Comment on above: Order Comment: Speci men Type: ARTERIAL BLOOD SPECIMENOrdering Facility: [facility] Address: [address] [place], [place] [address] Performed By: #### A LLBG ####[facility] LABCLIA [id number] [place] [address] [place] Calcium.ionized adjusted to pH 7.4 (BldA) [Moles/Vol] 1.04 mmol/L Low 1.08-1.30 [facility] Comment on above: Order Comment: Speci men Type: ARTERIAL BLOOD SPECIMENOrdering Facility: [facility] Address: [address] [place] [address] Performed By: #### A LLBG ####[facility] LABCLIA [id number] [place] [address] [place] Carboxyhemoglobin (BldA) [Mass fraction] 1.2 % Normal 0.0-2.0 [facility] Comment on above: Order Comment: Speci men Type: ARTERIAL BLOOD SPECIMENOrdering Facility: [facility] Address: [address] [place] [address] Result Comment: Carb oxyhemoglobin Reference Range for Smokers: 2.0-8.0% Performed By: #### A LLBG ####[facility] LABIA [id number] [place] [address] [place] CO2 (Bld) [Partial pressure] 53 mm Hg High 36-46 [facility] Comment on above: Order Comment: Speci men Type: ARTERIAL BLOOD SPECIMENOrdering Facility: [facility] Address: [address] [place] [address] Performed By: #### A LLBG ####[facility] LABCLIA [id number] [place] [address] [place] FIO2 60 % Normal [facility] Comment on above: Order Comment: Speci men Type: ARTERIAL BLOOD SPECIMENOrdering Facility: [facility] Address: [address] [place] [address] Performed By: #### A LLBG ####[facility] LABCLIA [id number] [place] [address] [place] Glucose [Mass/Vol] 222 mg/dL High 60-105 [facility] Comment on above: Order Comment: Speci men Type: ARTERIAL BLOOD SPECIMENOrdering Facility: [facility] Address: [address] [place] [address] Performed By: #### A LLBG ####[facility] LABCLIA [id number] [place] [address] [place] HCO3 (Bld) [Moles/Vol] 25 mmol/L Normal 22-26 [facility] Comment on above: Order Comment: Speci men Type: ARTERIAL BLOOD SPECIMENOrdering Facility: [facility] Address: [address] [place] [address] Performed By: #### A LLBG ####[facility] LABCLIA [id number] [place] [address] [place] Hematocrit (Bld) [Volume fraction] 37.0 % Normal 36.0-46.0 [facility] Comment on above: Order Comment: Speci men Type: ARTERIAL BLOOD SPECIMENOrdering Facility: [facility] Address: [address] [place] [address] Performed By: #### A LLBG ####[facility] LABCLIA [id number] [place] [address] [place] Hemoglobin (Bld) [Mass/Vol] 12.0 g/dL Normal 11.5-15.5 [facility] Comment on above: Order Comment: Speci men Type: ARTERIAL BLOOD SPECIMENOrdering Facility: [facility] Address: [address] [place] [address] Performed By: #### A LLBG ####[facility] LABCLIA [id number] [place] [address] [place] Lactate [Moles/Vol] 3.1 mmol/L High 0.5-2.2 [facility] Comment on above: Order Comment: Speci men Type: ARTERIAL BLOOD SPECIMENOrdering Facility: [facility] Address: [address] [place] [address] Performed By: #### A LLBG ####[facility] LABCLIA [id number] [place] [address] [place] Methemoglobin (Bld) [Mass fraction] 1.0 % Normal 0.0-1.5 [facility] Comment on above: Order Comment: Speci men Type: ARTERIAL BLOOD SPECIMENOrdering Facility: [facility] Address: [address] [place] [address] Performed By: #### A LLBG ####[facility] LABCLIA [id number] [place] [address] [place] O2 THERAPY VENT=Ventilator Normal [facility] Comment on above: Order Comment: Speci men Type: ARTERIAL BLOOD SPECIMENOrdering Facility: [facility] Address: [address] [place] [address] Performed By: #### A LLBG ####[facility] [id number] [place] [address] [place] Oxygen (Bld) [Partial pressure] 92 mm Hg Normal 85-95 [facility] Comment on above: Order Comment: Speci men Type: ARTERIAL BLOOD SPECIMENOrdering Facility: [facility] Address: [address] [place] [address] Performed By: #### A LLBG ####[facility] LABIA [id number] [place] [address] [place] Oxyhemoglobin (BldA) [Mass fraction] 94 % Low 95-98 [facility] Comment on above: Order Comment: Speci men Type: ARTERIAL BLOOD SPECIMENOrdering Facility: [facility] Address: [address] [place] [address] Performed By: #### A LLBG ####[facility] LABCLIA [id number] [place] [address] [place] pH (Bld) 7.29 [pH] Low 7.35-7.45 [facility] Comment on above: Order Comment: Speci men Type: ARTERIAL BLOOD SPECIMENOrdering Facility: [facility] Address: [address] [place] [address] Performed By: #### A LLBG ####[facility] LABCLIA [id number] [place] [address] [place] PO2 / FIO2 RATIO 153 mmHg Low >300 [facility] Comment on above: Order Comment: Speci men Type: ARTERIAL BLOOD SPECIMENOrdering Facility: [facility] Address: [address] [place] [address] Performed By: #### A LLBG ####[facility] LABCLIA [id number] [place] [address] [place] Potassium [Moles/Vol] 3.2 mmol/L Low 3.5-5.0 [facility] Comment on above: Order Comment: Speci men Type: ARTERIAL BLOOD SPECIMENOrdering Facility: [facility] Address: [address] [place] [address] Performed By: #### A LLBG ####[facility] LABCLIA [id number] [place] [address] [place] Sodium [Moles/Vol] 137 mmol/L Normal 136-144 [facility] Comment on above: Order Comment: Speci men Type: ARTERIAL BLOOD SPECIMENOrdering Facility: [facility] Address: [address] [place] [address] Performed By: #### A LLBG ####[facility] LABCLIA [id number] [place] [address] [place] BRIEF OP NOTon 03-18-2025 BRIEF OP NOT Normal [facility] CBC panel Auto (Bld)on 03-18 Erythrocyte distribution width (RBC) [Ratio] 16.6 % High 11.5-15.0 [facility] Comment on above: Order Comment: Speci men Type: BLOOD SPECIMENOrdering Facility: [facility] Address: [address] [place] [address] Performed By: #### 5 8410-2 ####[facility] LABCLIA [id number] [place] [address] [place] Hematocrit (Bld) [Volume fraction] 39.4 % Normal 36.0-46.0 [facility] Comment on above: Order Comment: Speci men Type: BLOOD SPECIMENOrdering Facility: [facility] Address: [address] [place] [address] Performed By: #### 5 8410-2 ####[facility] LABCLIA [id number] [place] [address] [place] Hemoglobin (Bld) [Mass/Vol] 11.9 g/dL Normal 11.5-15.5 [facility] Comment on above: Order Comment: Speci men Type: BLOOD SPECIMENOrdering Facility: [facility] Address: [address] [place] [address] Performed By: #### 5 8410-2 ####[facility] LABCLIA [id number] [place] [address] [place] MCH (RBC) [Entitic mass] 23.1 pg Low 26.0-34.0 [facility] Comment on above: Order Comment: Speci men Type: BLOOD SPECIMENOrdering Facility: [facility] Address: [address] [place] [address] Performed By: #### 5 8410-2 ####[facility] LABCLIA [id number] [place] [address] [place] MCHC (RBC) [Mass/Vol] 30.2 g/dL Low 30.5-36.0 [facility] Comment on above: Order Comment: Speci men Type: BLOOD SPECIMENOrdering Facility: [facility] Address: [address] [place] [address] Performed By: #### 5 8410-2 ####[facility] LABCLIA [id number] [place] [address] [place] MCV (RBC) [Entitic vol] 76.5 fL Low 80.0-100.[address] [facility] Comment on above: Order Comment: Speci men Type: BLOOD SPECIMENOrdering Facility: [facility] Address: [address] [place] [address] Performed By: #### 5 8410-2 ####[facility] LABCLIA [id number] [place] [address] [place] Nucleated RBC (Bld) [#/Vol] 10*3/uL Normal <0.01 [facility] Comment on above: Order Comment: Speci men Type: BLOOD SPECIMENOrdering Facility: [facility] Address: [address] [place] [address] Performed By: #### 5 8410-2 ####[facility] LABCLIA [id number] [place] [address] [place] Platelet mean volume (Bld) [Entitic vol] 10.1 fL Normal 9.0-12.7 [facility] Comment on above: Order Comment: Speci men Type: BLOOD SPECIMENOrdering Facility: [facility] Address: [address] [place] [address] Performed By: #### 5 8410-2 ####[facility] LABCLIA [id number] [place] [address] [place] Platelets (Bld) [#/Vol] 164 10*3/uL Normal 150-400 [facility] Comment on above: Order Comment: Speci men Type: BLOOD SPECIMENOrdering Facility: [facility] Address: [address] [place] [address] Performed By: #### 5 8410-2 ####[facility] LABCLIA [id number] [place] [address] [place] RBC (Bld) [#/Vol] 5.15 10*6/uL Normal 3.90-5.20 [facility] Comment on above: Order Comment: Speci men Type: BLOOD SPECIMENOrdering Facility: [facility] Address: [address] [place] [address] Performed By: #### 5 8410-2 ####[facility] LABCLIA [id number] [place] [address] [place] WBC (Bld) [#/Vol] 5.63 10*3/uL Normal 3.70-11.00 [facility] Comment on above: Order Comment: Speci men Type: BLOOD SPECIMENOrdering Facility: [facility] Address: [address] [place] [address] Performed By: #### 5 8410-2 ####[facility] LABCLIA [id number] [place] [address] [place] Comp Metab 2000 Pnl SerPlon 03-18-2025 Sodium [Moles/Vol] 140 mmol/L Normal 136-144 [facility] Comment on above: Order Comment: Speci men Type: BLOOD SPECIMENOrdering Facility: [facility] Address: [address] [place] [address] Performed By: #### 1 9123-9, 89637-1, 277- ####[facility] LABCLIA [id number] [address] [place] Order Comment: Speci men Type: VENOUS BLOOD SPECIMENOrdering Facility: [facility] Address: [address] [place] [address] Performed By: #### 2 4344-4 ####[facility] LABCLIA [id number] [address] [place] Comprehensive metabolic 2000 panelon 03-18-2025 Albumin [Mass/Vol] 4.1 g/dL Normal 3.9-4.9 [facility] Comment on above: Order Comment: Speci men Type: BLOOD SPECIMENOrdering Facility: [facility] Address: [address] [place] [address] Performed By: #### 1 9123-9, 55832-8, 2776- ####[facility] LABCLIA [id number] [place] [address] [place] ALP [Catalytic activity/Vol] 61 U/L Normal 34-123 [facility] Comment on above: Order Comment: Speci men Type: BLOOD SPECIMENOrdering Facility: [facility] Address: [address] [place] [address] Performed By: #### 1 9123-9, 45357-7, 277-1 ####[facility] LABCLIA [id number] [place] [address] [place] ALT [Catalytic activity/Vol] 26 U/L Normal 7-38 [facility] Comment on above: Order Comment: Speci men Type: BLOOD SPECIMENOrdering Facility: [facility] Address: [address] [place] [address] Performed By: #### 1 9123-9, 29507-4, 2777-1 ####[facility] LABCLIA [id number] [place] [address] [place] Anion gap [Moles/Vol] 15 mmol/L Normal 8-15 [facility] Comment on above: Order Comment: Speci men Type: BLOOD SPECIMENOrdering Facility: [facility] Address: [address] [place] [address] Performed By: #### 1 9123-9, 84879-7, 277- ####[facility] LABCLIA [id number] [place] [address] [place] AST [Catalytic activity/Vol] 33 U/L Normal 13-35 [facility] Comment on above: Order Comment: Speci men Type: BLOOD SPECIMENOrdering Facility: [facility] Address: [address] [place] [address] Performed By: #### 1 9123-9, 87338-7, 2777- ####[facility] LABCLIA [id number] [place] [address] [place] Bilirubin [Mass/Vol] 0.5 mg/dL Normal 0.2-1.3 [facility] Comment on above: Order Comment: Speci men Type: BLOOD SPECIMENOrdering Facility: [facility] Address: [address] [place] [address] Performed By: #### 1 9123-9, 50201-8, 2777-1 ####[facility] LABCLIA [id number] [place] [address] [place] Calcium [Mass/Vol] 8.4 mg/dL Low 8.5-10.2 [facility] Comment on above: Order Comment: Speci men Type: BLOOD SPECIMENOrdering Facility: [facility] Address: [address] [place] [address] Performed By: #### 1 9123-9, 52299-2, 2776- ####[facility] LABCLIA [id number] [place] [address] [place] Chloride [Moles/Vol] 101 mmol/L Normal 98-107 [facility] Comment on above: Order Comment: Speci men Type: BLOOD SPECIMENOrdering Facility: [facility] Address: [address] [place] [address] Performed By: #### 1 9123-9, 03645-7, 2776-05 ####[facility] LABCLIA [id number] [place] [address] [place] CO2 [Moles/Vol] 24 mmol/L Normal 22-30 [facility] Comment on above: Order Comment: Speci men Type: BLOOD SPECIMENOrdering Facility: [facility] Address: [address] [place] [address] Performed By: #### 1 9123-9, 31042-1, 2776-05 ####[facility] LABCLIA [id number] [place] [address] [place] Creatinine [Mass/Vol] 0.73 mg/dL Normal 0.58-0.96 [facility] Comment on above: Order Comment: Speci men Type: BLOOD SPECIMENOrdering Facility: [facility] Address: [address] [place] [address] Performed By: #### 1 9123-9, 43270-7, 277- ####[facility] LABCLIA [id number] [place] [address] [place] eGFRcr SerPlBld CKD-EPI 2020 112 mL/min/1.73m??? Normal >=60 [facility] Comment on above: Order Comment: Speci men Type: BLOOD SPECIMENOrdering Facility: [facility] Address: [address] [place] [address] Result Comment: Vi mated Glomerular Filtration Rate [...] actual GFR. Performed By: #### 1 9123-9, 20831-6, 2776- ####[facility] LABCLIA [id number] [place] [address] [place] Glucose [Mass/Vol] 184 mg/dL High 74-99 [facility] Comment on above: Order Comment: Speci mihir Type: BLOOD SPECIMENOrdering Facility: [facility] Address: [address] [place] [address] Result Comment: The [place] [employer] (ADA) provides guidance for cutoff [...] Standards of Medical Care in Diabetes 2016, [place] [employer]. Diabetes Care. 2016.39(Suppl 1). Performed By: #### 1 9123-9, 49905-8, 2776-05 ####[facility] LABCLIA [id number] [place] [id number] [place] Potassium [Moles/Vol] 3.5 mmol/L Low 3.7-5.1 [facility] Comment on above: Order Comment: Speci men Type: BLOOD SPECIMENOrdering Facility: [facility] Address: [address] [place] [address] Performed By: #### 1 9123-9, 50052-6, 2777-1 ####[facility] LABCLIA [id number] [place] [address] [place] Protein [Mass/Vol] 5.6 g/dL Low 6.3-8.0 [facility] Comment on above: Order Comment: Speci men Type: BLOOD SPECIMENOrdering Facility: [facility] Address: [address] [place] [address] Performed By: #### 1 9123-9, 99558-0, 2777-1 ####[facility] LABCLIA [id number] [place] [address] [place] Urea nitrogen [Mass/Vol] 10 mg/dL Normal 7-21 [facility] Comment on above: Order Comment: Speci men Type: BLOOD SPECIMENOrdering Facility: [facility] Address: [address] [place] [address] Performed By: #### 1 9123-9, 77228-0, 2777- ####[facility] LABCLIA [id number] [place] [address] [place] Fibrinogen PPP-mCncon 2024 Fibrinogen Coag (PPP) [Mass/Vol] 415 mg/dL High 200-400 [facility] Comment on above: Order Comment: Speci men Type: BLOOD SPECIMENOrdering Facility: [facility] Address: [address] [place] [address] Performed By: #### 3 255-7, 73182-4 ####[facility] LABCLIA [id number] [place] [address] [place] Gas and Carbon monoxide pane l (BldV)on 03-18-2025 BASE DEFICIT, VENOUS -3 mmol/L Low -2-0 [facility] Comment on above: Order Comment: Speci men Type: VENOUS BLOOD SPECIMENOrdering Facility: [facility] Address: [address] [place] [address] Performed By: #### 2 4344-4 ####[facility] LABCLIA [id number] [place] [address] [place] Body temperature 98.6 [degF] Normal [facility] Comment on above: Order Comment: Speci men Type: VENOUS BLOOD SPECIMENOrdering Facility: [facility] Address: [address] [place] [address] Performed By: #### 2 4344-4 ####[facility] LABCLIA [id number] [place] [address] [place] Calcium.ionized (Bld) [Mass/Vol] 1.18 mmol/L Normal 1.08-1.30 [facility] Comment on above: Order Comment: Speci men Type: VENOUS BLOOD SPECIMENOrdering Facility: [facility] Address: [address] [place] [address] Performed By: #### 2 4344-4 ####[facility] LABCLIA [id number] [place] [address] [place] Calcium.ionized adjusted to pH 7.4 (BldA) [Moles/Vol] 1.07 mmol/L Low 1.08-1.30 [facility] Comment on above: Order Comment: Speci men Type: VENOUS BLOOD SPECIMENOrdering Facility: [facility] Address: [address] [place] [address] Performed By: #### 2 4344-4 ####[facility] LABCLIA [id number] [place] [address] [place] Carboxyhemoglobin (BldV) [Mass fraction] 1.0 % Normal 0.0-2.0 [facility] Comment on above: Order Comment: Speci men Type: VENOUS BLOOD SPECIMENOrdering Facility: [facility] Address: [address] [place] [address] Result Comment: Carb oxyhemoglobin Reference Range for Smokers: 2.0-8.0% Performed By: #### 2 4344-4 ####[facility] LABCLIA [id number] [place] [address] [place] CO2 (BldV) [Partial pressure] 63 mm[Hg] High 42-55 [facility] Comment on above: Order Comment: Speci men Type: VENOUS BLOOD SPECIMENOrdering Facility: [facility] Address: [address] [place] [address] Performed By: #### 2 4344-4 ####[facility] LABCLIA [id number] [place] [id number] [place] FIO2 60 % Normal [facility] Comment on above: Order Comment: Speci men Type: VENOUS BLOOD SPECIMENOrdering Facility: [facility] Address: [address] [place] [address] Performed By: #### 2 4344-4 ####[facility] LABCLIA [id number] [place] [address] [place] Glucose [Mass/Vol] 194 mg/dL High 60-105 [facility] Comment on above: Order Comment: Speci men Type: VENOUS BLOOD SPECIMENOrdering Facility: [facility] Address: [address] [place] [address] Performed By: #### 2 4344-4 ####[facility] [place] LABCLIA [id number] [place] [address] [place] HCO3 (Bld) [Moles/Vol] 25 mmol/L Normal 24-28 [facility] Comment on above: Order Comment: Speci men Type: VENOUS BLOOD SPECIMENOrdering Facility: [facility] Address: [address] [place] [address] Performed By: #### 2 4344-4 ####[facility] [place] LABCLIA [id number] [place] [address] [place] Hematocrit (Bld) [Volume fraction] 36.9 % Normal 36.0-46.0 [facility] Comment on above: Order Comment: Speci men Type: VENOUS BLOOD SPECIMENOrdering Facility: [facility] Address: [address] [place] [address] Performed By: #### 2 4344-4 ####[facility] LABCLIA [id number] [place] [address] [place] Hemoglobin (Bld) [Mass/Vol] 12.0 g/dL Normal 11.5-15.5 [facility] Comment on above: Order Comment: Speci men Type: VENOUS BLOOD SPECIMENOrdering Facility: [facility] Address: [address] [place] [address] Performed By: #### 2 4344-4 ####[facility] LABCLIA [id number] [place] [address] [place] Lactate [Moles/Vol] 1.6 mmol/L Normal 0.5-2.2 [facility] Comment on above: Order Comment: Speci men Type: VENOUS BLOOD SPECIMENOrdering Facility: [facility] Address: [address] [place] [address] Performed By: #### 2 4344-4 ####[facility] LABCLIA [id number] [place] [address] [place] Methemoglobin (Bld) [Mass fraction] 1.1 % Normal 0.0-1.5 [facility] Comment on above: Order Comment: Speci men Type: VENOUS BLOOD SPECIMENOrdering Facility: [facility] Address: [address] [place] [address] Performed By: #### 2 4344-4 ####[facility] LABCLIA [id number] [place] [address] [place] O2 THERAPY VENT=Ventilator Normal [facility] Comment on above: Order Comment: Speci men Type: VENOUS BLOOD SPECIMENOrdering Facility: [facility] Address: [address] [place] [address] Performed By: #### 2 4344-4 ####[facility] LABCLIA [id number] [place] [address] [place] Oxygen (BldV) [Partial pressure] 90 mm[Hg] High 35-45 [facility] Comment on above: Order Comment: Speci men Type: VENOUS BLOOD SPECIMENOrdering Facility: [facility] Address: [address] [place] [address] Performed By: #### 2 4344-4 ####[facility] LABCLIA [id number] [place] [address] [place] Oxygen saturation in Venous blood 95 % High 60-85 [facility] Comment on above: Order Comment: Speci men Type: VENOUS BLOOD SPECIMENOrdering Facility: [facility] Address: [address] [place] [address] Performed By: #### 2 4344-4 ####[facility] LABCLIA [id number] [place] [address] [place] Oxyhemoglobin (BldV) [Mass fraction] 93 % High 60-85 [facility] Comment on above: Order Comment: Speci men Type: VENOUS BLOOD SPECIMENOrdering Facility: [facility] Address: [address] [place] [address] Performed By: #### 2 4344-4 ####[facility] LABCLIA [id number] [place] [address] [place] pH (BldV) 7.23 [pH] Low 7.32-7.42 [facility] Comment on above: Order Comment: Speci men Type: VENOUS BLOOD SPECIMENOrdering Facility: [facility] Address: [address] [place] [address] Performed By: #### 2 4344-4 ####[facility] LABCLIA [id number] [place] [address] [place] Potassium [Moles/Vol] 3.4 mmol/L Low 3.5-5.0 [facility] Comment on above: Order Comment: Speci men Type: VENOUS BLOOD SPECIMENOrdering Facility: [facility] Address: [address] [place] [address] Performed By: #### 2 4344-4 ####[facility] LABCLIA [id number] [place] [address] [place] HISTORY PHYSICALon HISTORY PHYSICAL Normal [facility] Magnesium SerPl-mCncon 03-18 Magnesium [Mass/Vol] 2.1 mg/dL Normal 1.7-2.3 [facility] Comment on above: Order Comment: Speckerri ash Type: BLOOD SPECIMENOrdering Facility: [facility] Address: [address] [place] [address] Performed By: #### 1 9123-9, 41442-6, 2777-1 ####[facility] LABCLIA [id number] [address] OF [facility] OPERATIVE NOon 03-18-2025 OPERATIVE NO Normal [facility] PT panel Coag (PPP)on 2024 INR Coag (PPP) [Relative time] 1.0 {INR} Normal 0.9-1.3 [facility] Comment on above: Order Comment: Michele ash Type: BLOOD SPECIMENOrdering Facility: [facility] Address: [address] [place] [address] Result Comment: Jennifer min K Antagonist (VKA) Therapeutic Range: INR 2 to 3 (Target INR of 2.5)Note: For patients treated with VKA drugs, such as warfarin, the [place] [employer] 2012 Guideline recommends [...] al. Chest 2012, 141:7S-47SNishimdon RA, et al. [facility] 2017, 70: 252-289 Performed By: #### 3 255-7, 52989-9 ####[facility] LABCLIA [id number] [address] [place] PT Coag (PPP) [Time] 11.0 s Normal 9.7-13.0 [facility] Comment on above: Order Comment: Speci men Type: BLOOD SPECIMENOrdering Facility: [facility] Address: [address] [place] [address] Performed By: #### 3 255-7, 64156-2 ####[facility] LABCLIA [id number] [place] [address] [place] Phosphate SerPl-mCncon 03-18 Phosphate [Mass/Vol] 4.5 mg/dL Normal 2.7-4.8 [facility] [place] Comment on above: Order Comment: Speci men Type: BLOOD SPECIMENOrdering Facility: [facility] Address: [address] [place] [address] Performed By: #### 1 9123-9, 30543-3, 2777-1 ####[facility] LABCLIA [id number] [place] [address] [place] STAPHYLOCOCCUS AUREUS AND MR SA SCREEN, PCR, NASALon 03-18-2025 S. aureus and MRSA panel GUNJAN+probe (Nose) Not detected Normal Not Detected [facility] Comment on above: Order Comment: Speci men Type: SWABOrdering Facility: [facility] Address: [address] [place] [address] Performed By: #### S APCR ####[facility] LABCLIA [id number] [place] [address] [place] US LEG VEIN DVT DEYA VAS LABo n 03-18-2025 US LEG VEIN DVT DEYA VAS LAB Normal [facility] XR CHEST 1V FRONTAL PORTon 1 05-18-2024 XR CHEST 1V FRONTAL PORT Normal [facility] CNPNon 03-17-2025 CNPN Normal [facility] CNCNPATEDon 03-03-2025 CNCNPATED Normal [facility] Nasopharyngeal Cultureon NAC Streptococcus pneumoniae Amount [...] S Penicillin Islt LISA 0.25 I Normal [facility] Comment on above: Performed By: #### L 100.0100, L500.2500 #### [facility] [address] [place], [place], [address] Gram Stainon 02-28-2025 GS Positive Normal [facility] Comment on above: Performed By: #### L 100.0100, L500.2500 #### [facility] [address] [place], [address] Gram stainOrdered By: Earl Vital on 02-27-2025 Microscopic observation Gram stain Nom (Unsp spec) [facility] CNOVon 02-26-2025 CNOV Normal [facility] ABO AND RH ONLYon 02-25-2025 ABO Invalid result Normal [facility] Comment on above: Order Comment: Speci men Type: BLOOD SPECIMENOrdering Facility: [facility] Address: [address] [place] [address] Performed By: #### VANESA MCCLAIN ####[facility] LABCLIA [id number] [place] [address] [place] Rh Nom (Bld) Negative Normal [facility] Comment on above: Order Comment: Speci men Type: BLOOD SPECIMENOrdering Facility: [facility] Address: [address] [place] [address] Performed By: #### VANESA MCCLAIN ####[facility] LABCLIA [id number] [place] [address] [place] Result Comment: Boubacar ected result: Previously reported as Invalid on 02/26/2025 at 12:30 AM EDT. ABO A Normal [facility] Comment on above: Order Comment: Speci men Type: BLOOD SPECIMENOrdering Facility: [facility] Address: [address] [place] [address] Result Comment: Boubacar ected result: Previously reported as Indeterminate ABO on 02/26/2025 at 12:29 AM EDT. Performed By: #### T SCR30, ABORH ####[facility] LABCLIA [id number] [place] [address] [place] Rh Nom (Bld) Negative Normal [facility] Comment on above: Order Comment: Speci men Type: BLOOD SPECIMENOrdering Facility: [facility] Address: [address] [place] [address] Performed By: #### T SCR30, ABORH ####[facility] LABCLIA [id number] [place] [address] [place] CBC W Auto Differential pane l (Bld)on 02-25-2025 Basophils (Bld) [#/Vol] 10*3/uL Normal <0.[address] [facility] Comment on above: Order Comment: Speci men Type: BLOOD SPECIMENOrdering Facility: [facility] Address: [address] [place] [address] Performed By: #### 5 7021-8 ####[facility]CL[facility] [id number] [address] [place] Basophils/100 WBC (Bld) 0.2 % Normal C [facility] Comment on above: Order Comment: Speci men Type: BLOOD SPECIMENOrdering Facility: [facility] Address: [address] [place] [address] Performed By: #### 5 7021-8 ####[facility] MILLTOWNCLIA [id number] [place] [address] [place] Differential cell count method Nom (Bld) Auto Normal [facility] Comment on above: Order Comment: Speci men Type: BLOOD SPECIMENOrdering Facility: [facility] Address: [address] [place] [address] Performed By: #### 5 7021-8 ####[facility] MILLWNCLIA [id number] [place] [address] [place] Eosinophils (Bld) [#/Vol] 0.14 10*3/uL Normal <0.46 [facility] Comment on above: Order Comment: Speci men Type: BLOOD SPECIMENOrdering Facility: [facility] Address: [address] [place] [address] Performed By: #### 5 7021-8 ####[facility] [id number] [place] [address] [place] Eosinophils/100 WBC (Bld) 2.6 % Normal [facility] Comment on above: Order Comment: Speci men Type: BLOOD SPECIMENOrdering Facility: [facility] Address: [address] [place] [address] Performed By: #### 5 7021-8 ####[facility] PARKMELINDA [id number] [place] [address] [place] Erythrocyte distribution width (RBC) [Ratio] 16.1 % High 11.5-15.0 [facility] Comment on above: Order Comment: Speci men Type: BLOOD SPECIMENOrdering Facility: [facility] Address: [address] [place] [address] Performed By: #### 5 7021-8 ####[facility] [id number] [place] [address] [place] Hematocrit (Bld) [Volume fraction] 43.1 % Normal 36.0-46.0 [facility] Comment on above: Order Comment: Speci men Type: BLOOD SPECIMENOrdering Facility: [facility] Address: [address] [place] [address] Performed By: #### 5 7021-8 ####[facility] [id number] [place] [address] [place] Hemoglobin (Bld) [Mass/Vol] 12.5 g/dL Normal 11.5-15.5 [facility] Comment on above: Order Comment: Speci men Type: BLOOD SPECIMENOrdering Facility: [facility] Address: [address] [place] [address] Performed By: #### 5 7021-8 ####[facility] [id number] [place] [address] [place] Immature granulocytes (Bld) [#/Vol] 0.05 10*3/uL Normal <0.10 [facility] Comment on above: Order Comment: Speci men Type: BLOOD SPECIMENOrdering Facility: [facility] Address: [address] [place] [address] Performed By: #### 5 7021-8 ####[facility] [id number] [place] [address] [place] Immature granulocytes/100 WBC (Bld) 0.9 % Normal [facility] Comment on above: Order Comment: Speci men Type: BLOOD SPECIMENOrdering Facility: [facility] Address: [address] [place] [address] Performed By: #### 5 7021-8 ####[facility] [id number] [place] [address] [place] Lymphocytes (Bld) [#/Vol] 1.55 10*3/uL Normal 1.00-4.00 [facility] Comment on above: Order Comment: Speci men Type: BLOOD SPECIMENOrdering Facility: [facility] Address: [address] [place] [address] Performed By: #### 5 7021-8 ####[facility] [id number] [place] [address] [place] Lymphocytes/100 WBC (Bld) 28.4 % Normal [facility] Comment on above: Order Comment: Speci men Type: BLOOD SPECIMENOrdering Facility: [facility] Address: [address] [place] [address] Performed By: #### 5 7021-8 ####[facility] MILLCESIAWNCLIA [id number] [place] [address] [place] MCH (RBC) [Entitic mass] 22.0 pg Low 26.0-34.0 [facility] Comment on above: Order Comment: Speci men Type: BLOOD SPECIMENOrdering Facility: [facility] Address: [address] [place] [address] Performed By: #### 5 7021-8 ####[facility] P[facility]CL[facility] [id number] [place] [address] [place] MCHC (RBC) [Mass/Vol] 29.0 g/dL Low 30.5-36.0 [facility] Comment on above: Order Comment: Speci men Type: BLOOD SPECIMENOrdering Facility: [facility] Address: [address] [place] [address] Performed By: #### 5 7021-8 ####[facility]CL[facility] [id number] [place] [address] [place] MCV (RBC) [Entitic vol] 75.9 fL Low 80.0-100.[address] [facility] Comment on above: Order Comment: Speci men Type: BLOOD SPECIMENOrdering Facility: [facility] Address: [address] [place] [address] Performed By: #### 5 7021-8 ####[facility]CL[facility] [id number] [place] [address] [place] Monocytes (Bld) [#/Vol] 0.34 10*3/uL Normal <0.87 [facility] Comment on above: Order Comment: Speci men Type: BLOOD SPECIMENOrdering Facility: [facility] Address: [address] [place] [address] Performed By: #### 5 7021-8 ####[facility] [id number] [place] [address] [place] Monocytes/100 WBC (Bld) 6.2 % Normal [facility] Comment on above: Order Comment: Speci men Type: BLOOD SPECIMENOrdering Facility: [facility] Address: [address] [place] [address] Performed By: #### 5 7021-8 ####[facility] [id number] [place] [address] [place] Neutrophils (Bld) [#/Vol] 3.37 10*3/uL Normal 1.45-7.50 [facility] Comment on above: Order Comment: Speci men Type: BLOOD SPECIMENOrdering Facility: [facility] Address: [address] [place] [address] Performed By: #### 5 7021-8 ####[facility] [id number] [place] [address] [place] Neutrophils/100 WBC (Bld) 61.7 % Normal [facility] Comment on above: Order Comment: Speci men Type: BLOOD SPECIMENOrdering Facility: [facility] Address: [address] [place] [address] Performed By: #### 5 7021-8 ####[facility] [id number] [place] [address] [place] Nucleated RBC (Bld) [#/Vol] 10*3/uL Normal <0.01 [facility] Comment on above: Order Comment: Speci men Type: BLOOD SPECIMENOrdering Facility: [facility] Address: [address] [place] [address] Performed By: #### 5 7021-8 ####[facility] [id number] [place] [address] [place] Nucleated RBC/100 WBC (Bld) [Ratio] 0.0 /100 WBC Normal [facility] Comment on above: Order Comment: Speci men Type: BLOOD SPECIMENOrdering Facility: [facility] Address: [address] [place] [address] Performed By: #### 5 7021-8 ####[facility] SHANNONJenniferNCKAREN [id number] [place] [address] [place] Platelet mean volume (Bld) [Entitic vol] 9.5 fL Normal 9.0-12.7 [facility] Comment on above: Order Comment: Speci men Type: BLOOD SPECIMENOrdering Facility: [facility] Address: [address] [place] [address] Performed By: #### 5 7021-8 ####[facility] [id number] [place] [address] [place] Platelets (Bld) [#/Vol] 223 10*3/uL Normal 150-400 [facility] Comment on above: Order Comment: Speci men Type: BLOOD SPECIMENOrdering Facility: [facility] Address: [address] [place] [address] Performed By: #### 5 7021-8 ####[facility]CL[facility] [id number] [place] [address] [place] RBC (Bld) [#/Vol] 5.68 10*6/uL High 3.90-5.20 [facility] Comment on above: Order Comment: Speci men Type: BLOOD SPECIMENOrdering Facility: [facility] Address: [address] [place] [address] Performed By: #### 5 7021-8 ####[facility] [id number] [place] [address] [place] WBC (Bld) [#/Vol] 5.46 10*3/uL Normal 3.70-11.00 [facility] Comment on above: Order Comment: Speci men Type: BLOOD SPECIMENOrdering Facility: [facility] Address: [address] [place] [address] Performed By: #### 5 7021-8 ####[facility] P[facility] [id number] [place] [address] [place] CONFIRM BLOOD TYPEon 025 ABO A Normal [facility] Comment on above: Order Comment: Speci men Type: BLOOD SPECIMENOrdering Facility: [facility] Address: [address] [place] [address] Result Comment: Boubacar ected result: Previously reported as Invalid on 02/26/2025 at 12:30 AM EDT. Performed By: #### A VANESA STANLEY ####[facility] LABCLIA [id number] [place] [address] [place] CRP SerPl-mCncon 02-25-2025 CRP [Mass/Vol] 4.0 mg/dL High <0.9 [facility] Comment on above: Order Comment: Speci men Type: BLOOD SPECIMENOrdering Facility: [facility] Address: [address] [place] [address] Performed By: #### 1 988-5 ####[facility] LABCLIA [id number] [place] [address] [place] Comprehensive metabolic 2000 panelon 02-25-2025 Albumin [Mass/Vol] 4.0 g/dL Normal 3.9-4.9 [facility] Comment on above: Order Comment: Speci men Type: BLOOD SPECIMENOrdering Facility: [facility] Address: [address] [place] [address] Performed By: #### 2 4323-8 ####[facility] ERA [id number] [place] [address] [place] ALP [Catalytic activity/Vol] 74 U/L Normal 34-123 [facility] Comment on above: Order Comment: Speci men Type: BLOOD SPECIMENOrdering Facility: [facility] Address: [address] [place], [place] [address] Performed By: #### 2 4323-8 ####[facility] SUKHJINDER MILLTOWNCLIA [id number] [place] [address] [place] ALT [Catalytic activity/Vol] 27 U/L Normal 7-38 [facility] Comment on above: Order Comment: Speci men Type: BLOOD SPECIMENOrdering Facility: [facility] Address: [address] [place] [address] Performed By: #### 2 4323-8 ####[facility] MILLTOWNCLIA [id number] [place] [address] [place] Anion gap [Moles/Vol] 8 mmol/L Normal 8-15 [facility] Comment on above: Order Comment: Speci men Type: BLOOD SPECIMENOrdering Facility: [facility] Address: [address] [place] [address] Performed By: #### 2 4323-8 ####[facility] [id number] [place] [address] [place] AST [Catalytic activity/Vol] 30 U/L Normal 13-35 [facility] Comment on above: Order Comment: Speci men Type: BLOOD SPECIMENOrdering Facility: [facility] Address: [address] [place] [address] Performed By: #### 2 4323-8 ####[facility] MILLTOWNCLIA [id number] [place] [address] [place] Bilirubin [Mass/Vol] 0.2 mg/dL Normal 0.2-1.3 [facility] Comment on above: Order Comment: Speci men Type: BLOOD SPECIMENOrdering Facility: [facility] Address: [address] [place] [address] Performed By: #### 2 4323-8 ####[facility]CL[facility] [id number] [place] [address] [place] Calcium [Mass/Vol] 9.1 mg/dL Normal 8.5-10.2 [facility] Comment on above: Order Comment: Speci men Type: BLOOD SPECIMENOrdering Facility: [facility] Address: [address] [place] [address] Performed By: #### 2 4323-8 ####[facility] SUKHJINDER MILLTOWNCLIA [id number] [place] [address] [place] Chloride [Moles/Vol] 103 mmol/L Normal 98-107 [facility] Comment on above: Order Comment: Speci men Type: BLOOD SPECIMENOrdering Facility: [facility] Address: [address] [place] [address] Performed By: #### 2 4323-8 ####[facility] MILLTOWNCLIA [id number] [place] [address] [place] CO2 [Moles/Vol] 30 mmol/L Normal 22-30 [facility] Comment on above: Order Comment: Speci men Type: BLOOD SPECIMENOrdering Facility: [facility] Address: [address] [place] [address] Performed By: #### 2 4323-8 ####[facility] MILLTOWNCLIA [id number] [place] [address] [place] Creatinine [Mass/Vol] 0.64 mg/dL Normal 0.58-0.96 [facility] Comment on above: Order Comment: Speci men Type: BLOOD SPECIMENOrdering Facility: [facility] Address: [address] [place], [place] [address] Performed By: #### 2 4323-8 ####[facility] MILLTOWNCLIA [id number] [place] [address] [place] eGFRcr SerPlBld CKD-EPI 2020 121 mL/min/1.73m??? Normal >=60 [facility] Comment on above: Order Comment: Speci men Type: BLOOD SPECIMENOrdering Facility: [facility] Address: [address] [place] [address] Result Comment: Vi mated Glomerular Filtration Rate [...] actual GFR. Performed By: #### 2 4323-8 ####[facility] [id number] [place] [address] [place] Glucose [Mass/Vol] 88 mg/dL Normal 74-99 [facility] Comment on above: Order Comment: Michele ash Type: BLOOD SPECIMENOrdering Facility: [facility] Address: [address] [place] [address] Result Comment: The [place] [employer] (ADA) provides guidance for cutoff [...] Standards of Medical Care in Diabetes 2016, [place] [employer]. Diabetes Care. 2016.39(Suppl 1). Performed By: #### 2 4323-8 ####[facility] [id number] [place] [address] [place] Potassium [Moles/Vol] 4.0 mmol/L Normal 3.7-5.1 [facility] Comment on above: Order Comment: Michele ash Type: BLOOD SPECIMENOrdering Facility: [facility] Address: [address] [place] [address] Performed By: #### 2 4323-8 ####[facility] MILLTOWNCLIA [id number] [place] [address] [place] Protein [Mass/Vol] 6.0 g/dL Low 6.3-8.0 [facility] Comment on above: Order Comment: Speci men Type: BLOOD SPECIMENOrdering Facility: [facility] Address: [address] [place] [address] Performed By: #### 2 4323-8 ####[facility] PARK[facility]CL[facility] [id number] [place] [address] [place] Sodium [Moles/Vol] 141 mmol/L Normal 136-144 [facility] Comment on above: Order Comment: Speci men Type: BLOOD SPECIMENOrdering Facility: [facility] Address: [address] [place] [address] Performed By: #### 2 4323-8 ####[facility] [id number] [place] [address] [place] Urea nitrogen [Mass/Vol] 7 mg/dL Normal 7- [facility] Comment on above: Order Comment: Speci men Type: BLOOD SPECIMENOrdering Facility: [facility] Address: [address] [place] [address] Performed By: #### 2 4323-8 ####[facility] [id number] [place] [address] [place] HISTORY PHYSICALon HISTORY PHYSICAL Normal [facility] TYPE AND SCREEN,30 DAYon ABO Invalid result Normal [facility] Comment on above: Order Comment: Speci men Type: BLOOD SPECIMENOrdering Facility: [facility] Address: [address] [place] [address] Performed By: #### T SCR30, [facility] ####[facility] LABCLIA [id number] [place] [address] [place] Rh Nom (Bld) Invalid result Normal [facility] Comment on above: Order Comment: Speci men Type: BLOOD SPECIMENOrdering Facility: [facility] Address: [address] [place] [address] Performed By: #### T SCR30, ABORH ####[facility] LABCLIA [id number] [address] [place] Absolute lymphocyte countOrd ered By: Neo Phelps on 02-20-2025 Lymphocytes Auto (Unsp spec) [#/Vol] 1.71 10*3/uL 0.83-4.51 [facility] Absolute neutrophil countOrd ered By: Neo Phelps on 02-20-2025 Neutrophils (Bld) [#/Vol] 1.9 10*3/uL Low 2.0-7.7 [facility] Anion gap in Serum or Plasma Ordered By: Neo Phelps on 02-20-2025 Anion gap [Moles/Vol] 8 mmol/L 09-19 [facility] Automated lymphocyte count a s percentage of total leukocytesOrdered By: Neo Phelps on 02-20-2025 Lymphocytes/100 WBC Auto (Unsp spec) 40.9 % [facility] BUN/creatinine ratioOrdered By: Neo Phelps on 02-20-2025 Urea nitrogen/Creatinine [Mass ratio] 14.7 mg/mg 02-24 [facility] Basic Metabolic Profile (BMP )on 02-20-2025 BUN/CRE 14.7 RATIO Normal 02-24 [facility] Comment on above: Performed By: #### L 100.0100, L500.2500 #### [facility] [address] [place], [address] Calcium [Mass/Vol] 8.4 mg/dL Normal 7.6-11.0 [facility] Comment on above: Performed By: #### L 100.0100, L500.2500 #### [facility] [address] [place], [address] Chloride [Moles/Vol] 101 mmol/L Normal 98-108 [facility] Comment on above: Performed By: #### L 100.0100, L500.2500 #### [facility] [address] [place], [address] CO2 [Moles/Vol] 30.0 mmol/L Normal 21.0-32.0 [facility] Comment on above: Performed By: #### L 100.0100, L500.2500 #### [facility] [address] [place], [address] Creatinine [Mass/Vol] 0.67 mg/dL Low 0.70-1.20 [facility] Comment on above: Performed By: #### L 100.0100, L500.2500 #### [facility] [address] [place], [address] ECRCL 229.99 ml/min Normal 50-250 [facility] Comment on above: Performed By: #### L 100.0100, L500.2500 #### [facility] [address] [place], [address] GAP 8 Normal 5-15 [facility] Comment on above: Performed By: #### L 100.0100, L500.2500 #### [facility] [address] [place], [address] GFR/1.73 sq M.predicted among non-blacks MDRD (S/P/Bld) [Vol rate/Area] 119 mL/min/{1.73_m2} Normal >60 [facility] Comment on above: Result Comment: mL/m in/1.73m2 CKD-EPI Creatinine Equation (2020) Performed By: #### L 100.0100, L500.2500 #### [facility] [address] [place], [address] Glucose [Mass/Vol] 88 mg/dL Normal 70-99 [facility] Comment on above: Performed By: #### L 100.0100, L500.2500 #### [facility] [address] [place], [address] Potassium [Moles/Vol] 4.3 mmol/L Normal 3.3-5.1 [facility] Comment on above: Performed By: #### L 100.0100, L500.2500 #### [facility] [address] [place], [address] Sodium [Moles/Vol] 139 mmol/L Normal 133-145 [facility] Comment on above: Performed By: #### L 100.0100, L500.2500 #### [facility] [address] [place], [address] Urea nitrogen [Mass/Vol] 10 mg/dL Normal 4-19 [facility] Comment on above: Performed By: #### L 100.0100, L500.2500 #### [facility] [address] [place], [address] Basophil percentageOrdered B y: Neo Villegasbryan on 02-20-2025 Basophils/100 WBC (Bld) 0.5 % 0-1 [facility] CBC W/Diff, Automatedon 02-05 REACTIVE LYMPH RARE Normal [facility] Comment on above: Performed By: #### L 100.0100, L500.2500 #### [facility] [address] [place], [address] CTA Chest W/WO Contraston CTA Chest W/WO Contrast [facility] Imaging Services [address] [place] [address] CTA Chest W/WO Contrast MR#: [id number] Acct: [id number] Name: TORRIE MARTINEZ Rep #: [id number] : 1990 F 34 From: Blu brooks MD PCP: Louann Bermeo [employer] Status: REG ER Study: CTA Chest W/WO Contrast Date of Exam: 02/20/25 Exam# [id number] Ordering Dr: Neo Phelps DO PROCEDURE: CTA [...] of the left upper lobe. Reading Location: [place] [address] CC: SPICE MILLER HAMMER MILLJeff Bermeo; Dr. Neo Phelps DO Cleaning Porter: Signed Normal [facility] Carbon dioxide, total [Moles /volume] in Central venous bloodOrdered By: Neo Phelps on 02-20-2025 CO2 [Moles/Vol] 30.0 mmol/L 21.0-32.0 [facility] Chest PA and Lateralon 02-20 Chest PA and Lateral [facility] Imaging Services [address] [place] [address] Chest PA and Lateral MR#: [id number] Acct: [id number] Name: TORRIE MARTINEZ Rep #: [id number] : 1990 F 34 From: Dominic Hi MD PCP: PARK JonesC Status: REG ER Study: Chest PA and Lateral Date of Exam: 02/20/25 Exam# [id number] Ordering Dr: Neo Phelps DO PROCEDURE: CHEST [...] PARKC Louann Bermeo; Dr. Neo Phelps DO Cleaning Porter: Signed Normal [facility] Chloride assayOrdered By: Cas Phelps on 02-20-2025 Chloride [Moles/Vol] 101 mmol/L 98-108 [facility] D-Dimer Quantitative (DVT/PE )on 02-20-2025 D-DIMER QUANT 0.52 FEU/ug/m Invalid Interpretation Code 0.27-0.49 [facility] Comment on above: Result Comment: D-Di gonzalo ELEVATED (>0.49): Additional studies and clinical assessments are indicated to conclude diagnosis of: Deep Vein Thrombosis (DVT) or Pulmonary Embolism (PE) CRITICAL VALUE CALLED TO ADRIANNE NICK (ER) 02/20/25 [address] RESULTS READ BACK BY SAME. Performed By: #### L 100.0100, L500.2500 #### [facility] [address] [place], [address] Emergency Department Summary on 02-20-2025 Emergency Department Summary [facility] Medical Records Department [address] [place] [address] Emergency Department Summary 02/20/25 MR#: [id number] Acct: [id number] Name: TORRIE MARTINEZ Rep #: [id number] : 1990 34 From: Neo Phelps DO PCP: Louann Bermeo [employer] Status:DEP ER Location: ED HPI History of [...] Recent immobilization, Recent surgery or Recent travel [facility] Medical History Pneumonia COPD (chronic obstructive pulmonary [...] H Resp (more content not included)... Normal [facility] Eosinophil percentageOrdered By: Neo Phelps on 02-20-2025 Eosinophils/100 WBC (Bld) 0.5 % 0-5 [facility] Erythrocyte distribution wid th ratioOrdered By: Neo Phelps on 02-20-2025 Erythrocyte distribution width (RBC) [Ratio] 15.9 % High 11.6-14.6 [facility] Erythrocyte distribution wid th standard deviationOrdered By: Neo Phelps on 02-20-2025 Erythrocyte distribution width (RBC) [Ratio] 44.2 fl High 35.1-43.9 [facility] Glomerular filtration rate ( GFR) estimation/1.73 sq m using serum, plasma, or whole bOrdered By: Neo Phelps on 02-20-2025 GFR/1.73 sq M.predicted among non-blacks MDRD (S/P/Bld) [Vol rate/Area] 119 mL/min/{1.73_m2} >60 [facility] Comment on above: mL/min/1.73m2 CKD-EP I Creatinine Equation (2020) Hematocrit Auto (Bld) [Volum e fraction]Ordered By: Neo Phelps on 02-20-2025 Hematocrit (Bld) [Volume fraction] 39.8 % 37-47 [facility] Hemoglobin measurementOrdere d By: Neo Phelps on 02-20-2025 Hemoglobin (Bld) [Mass/Vol] 11.8 g/dL Low 12.0-15.0 [facility] Immature granulocytes/100 WB C Auto (Bld)Ordered By: Neo Phelps on 02-20-2025 Immature granulocytes/100 WBC (Bld) 3.300 % High 0.0-0.9 [facility] Comment on above: IG% - Immature Granu locytes (promyelocytes, myelocytes and metamyelocytes) > 1% indicates that a LEFT SHIFT is Present. Influenza virus A and B and SARS-CoV-2 (COVID-19) and Respiratory syncytial virus RNAOrdered By: Neo Phelps on 02-20-2025 SARS-CoV-2 (COVID-19) RNA GUNJAN+probe Ql (Unsp spec) [facility] M100.678on 02-20-2025 M100.678 Pending SARS-CoV-2 (COVID 19) Negative INFLUENZA A Negative INFLUENZA B Negative RSV PCR Negative Normal [facility] Comment on above: Performed By: #### L 100.0100, L500.2500 #### [facility] [address] [place], [address] MCV (mean corpuscular volume ) determinationOrdered By: Neo Phelps on 02-20-2025 MCV (RBC) [Entitic vol] 76.8 fL Low 81-99 [facility] Mean corpuscular hemoglobin (MCH) determinationOrdered By: Neo Phelps on 02-20-2025 MCH (RBC) [Entitic mass] 22.8 pg Low 27.0-32.0 [facility] Mean corpuscular hemoglobin concentration (MCHC) determinationOrdered By: Neo Phelps on 02-20-2025 MCHC (RBC) [Mass/Vol] 29.6 g/dL Low 32-36 [facility] Mean platelet volume determi nationOrdered By: Neo Phelps on 02-20-2025 Platelet mean volume (Bld) [Entitic vol] 10.4 fL 6.2-12.0 [facility] Monocyte percentageOrdered B y: Neo Phelps on 02-20-2025 Monocytes/100 WBC (Bld) 9.6 % 0-10 [facility] Neutrophil percentageOrdered By: Neo Phelps on 02-20-2025 Neutrophils/100 WBC (Bld) 45.2 % Low 47-70 [facility] Nucleated red blood cell per centageOrdered By: Neo Phelps on 02-20-2025 Nucleated RBC/100 WBC (Bld) [Ratio] 0.5 % 0-5 [facility] Platelet countOrdered By: Cas Phelps on 02-20-2025 Platelets (Bld) [#/Vol] 120 10*3/uL Low 150-450 [facility] Potassium measurement (mass/ volume)Ordered By: Neo Phelps on 02-20-2025 Potassium (Unsp spec) [Mass/Vol] 4.3 mmol/L 3.3-5.1 [facility] RBC Auto (Bld) [#/Vol]Ordere d By: Neo Phelps on 02-20-2025 RBC (Bld) [#/Vol] 5.18 10*6/uL 4.2-5.4 [facility] Serum creatinine measurement (mass/volume)Ordered By: Neo Phelps on 02-20-2025 Creatinine [Mass/Vol] 0.67 mg/dL Low 0.70-1.20 [facility] Serum glucose measurement (m ass/volume)Ordered By: Neo Phelps on 02-20-2025 Glucose [Mass/Vol] 88 mg/dL 70-99 [facility] Serum or plasma calcium maryjane urement (mass/volume)Ordered By: Neo Phelps on 02-20-2025 Calcium [Mass/Vol] 8.4 mg/dL 7.6-11.0 [facility] Serum or plasma urea nitroge n measurement (mass/volume)Ordered By: Neo Phelps on 02-20-2025 Urea nitrogen [Mass/Vol] 10 mg/dL 4-19 [facility] Sodium levelOrdered By: Neo Phelps on 02-20-2025 Sodium [Moles/Vol] 139 mmol/L 133-145 [facility] White blood cell (WBC) count Ordered By: Neo Phelps on 02-20-2025 WBC (Bld) [#/Vol] 4.2 10*3/uL Low 4.4-11.0 [facility] 02-19-2025 CNPN Normal [facility] Sinus/Facial Boneon 02-13-20 Sinus/Facial Bone [facility] Imaging Services [address] [place] [address] Sinus/Facial Bone MR#: [id number] Acct: [id number] Name: TORRIE MARTINEZ Rep #: [id number] : 1990 F 34 From: Pool Cisneros MD PCP: Louann Bermeo NP-C Status: REG CLI Study: Sinus/Facial Bone Date of Exam: 02/12/25 Exam# [id number] Ordering Dr: Neo Boone PROCEDURE: SINUS/FACIAL BONE [...] Sinonasal surgery, as described above. Reading Location: [id number] CC: SPICE MILLER HAMMER MILLJeff Bermeo; JULIA Murdock Cleaning Porter: Signed [facility]-06-[facility]NPNon 02-04-2025 [facility] Brain W/WO Contraston 2024 Brain W/WO Contrast [facility] Imaging Services [address] [place] [address] Brain W/WO Contrast MR#: [id number] Acct: [id number] Name: TORRIE MARTINEZ Rep #: [id number] : 1990 F 34 From: Alexis Newman MD PCP: Louann Bermeo [employer] Status: REG CLI Study: Brain W/WO Contrast Date of Exam: 01/29/25 Exam# [id number] Ordering Dr: Dakota Barber MD PROCEDURE: BRAIN [...] post FESS. 4. Severe pansinusitis. Reading Location: [id number] CC: OMAR Bermeo; Dr. Dakota Barber MD Cleaning Porter: Signed Normal [facility] OT General Evaluationon OT General Evaluation [facility] Occupational Therapy [facility] [address] [place] [address] / REHABILITATION SERVICES INITIAL EVALUATION MR#: [id number] Acct: [id number] Name: TORRIE MARTINEZ Rep #: [id number] : 1990 34 From: Angela GARCIA/LYN Wu Referring Dr.: OMAR Bermeo Status: RE G RCR Insurance: [facility] Eval Date: [facility] Patient's Visit Information Visit Information [...] to be FAXED BACK to us at [phone] for Medicare purposes. Please let me know if there are questions or concerns regarding this plan of care. Physician Signature: D ate: 01/13/25 1651 CC: OMAR Bermeo JOSEPH Signed For Medicare only, by signing this I certify the plan of care. Physicians Signature Date Normal [facility] CNOVon 01-01-2025 CNOV Normal [facility] CNCOon 12-30-2024 CNCO Letter Text Normal [facility] CNCOon 12-23-2024 CNCO Letter Text Normal [facility] CNPNon 12-23-2024 CNPN Normal [facility] CNCNPATEDon 12-17-2024 CNCNPATED Normal [facility] Basic metabolic 2000 panelon 12-12-2024 Anion gap [Moles/Vol] 13 mmol/L Normal 8-15 [facility] Comment on above: Order Comment: Speci men Type: BLOOD SPECIMENOrdering Facility: [facility] Address: [address] [place] [address] Performed By: #### 2 4321-2 ####[facility] LABCLIA [id number] [place] [address] [place] Calcium [Mass/Vol] 9.3 mg/dL Normal 8.5-10.2 [facility] Comment on above: Order Comment: Speci men Type: BLOOD SPECIMENOrdering Facility: [facility] Address: [address] [place] [address] Performed By: #### 2 4321-2 ####[facility] LABCLIA [id number] [place] [address] [place] Chloride [Moles/Vol] 98 mmol/L Normal 98-107 [facility] Comment on above: Order Comment: Speci men Type: BLOOD SPECIMENOrdering Facility: [facility] Address: [address] [place] [address] Performed By: #### 2 4321-2 ####[facility] LABCLIA [id number] [place] [address] [place] CO2 [Moles/Vol] 32 mmol/L High 22-30 [facility] Comment on above: Order Comment: Speci men Type: BLOOD SPECIMENOrdering Facility: [facility] Address: [address] [place] [id number] Performed By: #### 2 4321-2 ####[facility] LABIA [id number] [place] [address] [place] Creatinine [Mass/Vol] 0.74 mg/dL Normal 0.58-0.96 [facility] Comment on above: Order Comment: Speci men Type: BLOOD SPECIMENOrdering Facility: [facility] Address: [address] [place] [address] Performed By: #### 2 4321-2 ####[facility] [id number] [place] [address] [place] eGFRcr SerPlBld CKD-EPI 2020 110 mL/min/1.73m??? Normal >=60 [facility] Comment on above: Order Comment: Yvani men Type: BLOOD SPECIMENOrdering Facility: [facility] Address: [address] [place] [address] Result Comment: Vi mated Glomerular Filtration Rate [...] actual GFR. Performed By: #### 2 4321-2 ####[facility] LABIA [id number] [place] [id number] [place] Glucose [Mass/Vol] 75 mg/dL Normal 74-99 [facility] Comment on above: Order Comment: Yvani men Type: BLOOD SPECIMENOrdering Facility: [facility] Address: [address] [place] [address] Result Comment: The [place] Diabetes Association (ADA) provides guidance for cutoff [...] Standards of Medical Care in Diabetes 2016, [place] Diabetes Association. Diabetes Care. 2016.39(Suppl 1). Performed By: #### 2 4321-2 ####[facility] LABIA [id number] [address] [address] [place] Potassium [Moles/Vol] 4.2 mmol/L Normal 3.7-5.1 [facility] Comment on above: Order Comment: Speci men Type: BLOOD SPECIMENOrdering Facility: [facility] Address: [address] [place] [address] Performed By: #### 2 1-2 ####[facility] LABIA [id number] [place] [address] [place] Sodium [Moles/Vol] 143 mmol/L Normal 136-144 [facility] Comment on above: Order Comment: Yvani men Type: BLOOD SPECIMENOrdering Facility: [facility] Address: [address] [place] [address] Performed By: #### 2 1-2 ####[facility] LABIA [id number] [place] [id number] [place] Urea nitrogen [Mass/Vol] 9 mg/dL Normal 7-21 [facility] Comment on above: Order Comment: Speci men Type: BLOOD SPECIMENOrdering Facility: [facility] Address: [address] [place] [address] Performed By: #### 2 1-2 ####[facility] LABIA [id number] [address] [address] [place] CNPNon 11-27-2024 CNPN Normal [facility] CNCNPATEDon 11-26-2024 CNCNPATED Normal [facility] PAP TITRATION PSG (CPAP, BIP AP, ASV)on 11-19-2024 PAP TITRATION PSG (CPAP, BIPAP, ASV) Normal [facility] Emergency Department Summary on 11-13-2024 Emergency Department Summary [facility] Medical Records Department [address] [place] [address] Emergency Department Summary 11/13/24 MR#: [id number] Acct: [id number] Name: TORRIE MARTINEZ Rep #: [id number] : 1990 34 From: Randy Bailey MD PCP: Louann Bermeo, [employer]C Status:REG ER Location: ED HPI History of [...] obvious effusion. (more content not included)... Normal [facility] Knee 4 or More Viewson 11-13 Knee 4 or More Views [facility] Imaging Services [address] [place], [place] [address] Knee 4 or More Views MR#: [id number] Acct: [id number] Name: TORRIE MARTINEZ Rep #: [id number] : 1990 F 34 From: Rose Perry MD PCP: Louann Bermeo, [employer]-C Status: REG ER Study: Knee 4 or More Views Date of Exam: 11/13/24 Exam# [id number] Ordering Dr: Randy Bailey MD PROCEDURE: KNEE 4 OR MORE VIEWS 11/13/2024 REASON FOR EXAM: INJURY/PAIN TECHNIQUE: KNEE 4 OR MORE VIEWS COMPARISON: None. FINDINGS: No evidence of acute fracture or dislocation. Mild to moderate degenerative changes of the knee. No knee joint effusion. RAD/Knee 4 or More Views IMPRESSION: No acute osseous abnormalities. Osteoarthrosis. Reading Location: [id number] CC: [employer]-C Louann Bermeo; Dr. Randy Bailey MD Cleaning Porter: Signed Normal [facility] Comprehensive metabolic 2000 panelon 10-28-2024 Albumin [Mass/Vol] 4.0 g/dL Normal 3.9-4.9 [facility] Comment on above: Order Comment: Speci men Type: BLOOD SPECIMENOrdering Facility: [facility] Address: [address] [place] [address] Performed By: #### 2 4323-8, ####[facility] MILLJAYLENEA [id number] [place] [address] [place] ALP [Catalytic activity/Vol] 84 U/L Normal 34-123 [facility] Comment on above: Order Comment: Speci men Type: BLOOD SPECIMENOrdering Facility: [facility] Address: [address] [place] [address] Performed By: #### 2 4323-8, ####[facility] [id number] [place] [address] [place] ALT [Catalytic activity/Vol] 11 U/L Normal 7-38 [facility] Comment on above: Order Comment: Speci men Type: BLOOD SPECIMENOrdering Facility: [facility] Address: [address] [place] [address] Performed By: #### 2 4323-8, ####[facility] MILLGRIDLEYNCLIA [id number] [place] [address] [place] Anion gap [Moles/Vol] 15 mmol/L Normal 8-15 [facility] Comment on above: Order Comment: Speci men Type: BLOOD SPECIMENOrdering Facility: [facility] Address: [address] [place] [address] Performed By: #### 2 4323-8, ####[facility] MILLGRIDLEYNCLIA [id number] [place] [address] [place] AST [Catalytic activity/Vol] 12 U/L Low 13-35 [facility] Comment on above: Order Comment: Speci men Type: BLOOD SPECIMENOrdering Facility: [facility] Address: [address] [place], [place] [address] Performed By: #### 2 4323-8, ####[facility] [id number] [place] [address] [place] Bilirubin [Mass/Vol] 0.2 mg/dL Normal 0.2-1.3 [facility] Comment on above: Order Comment: Speci men Type: BLOOD SPECIMENOrdering Facility: [facility] Address: [address] [place] [address] Performed By: #### 2 4323-8, ####[facility] [id number] [place] [address] [place] Calcium [Mass/Vol] 9.5 mg/dL Normal 8.5-10.2 [facility] Comment on above: Order Comment: Speci men Type: BLOOD SPECIMENOrdering Facility: [facility] Address: [address] [place] [address] Performed By: #### 2 4323-8, ####[facility] ERA [id number] [place] [address] [place] Chloride [Moles/Vol] 97 mmol/L Low 98-107 [facility] Comment on above: Order Comment: Speci men Type: BLOOD SPECIMENOrdering Facility: [facility] Address: [address] [place] [address] Performed By: #### 2 4323-8, ####[facility] PARK[facility] [id number] [place] [address] [place] CO2 [Moles/Vol] 29 mmol/L Normal 22-30 [facility] Comment on above: Order Comment: Speci men Type: BLOOD SPECIMENOrdering Facility: [facility] Address: [address] [place], [place] [address] Performed By: #### 2 4323-8, ####[facility] HOSPITALGEORGEA [id number] [place] [address] [place] Creatinine [Mass/Vol] 0.64 mg/dL Normal 0.58-0.96 [facility] Comment on above: Order Comment: Michele men Type: BLOOD SPECIMENOrdering Facility: [facility] Address: [address] [place] [address] Performed By: #### 2 4323-8, ####[facility] [id number] [place] [address] [place] Creatinine and Glomerular filtration rate.predicted panel (S/P/Bld) 121 mL/min/1.73m??? Normal >=60 [facility] Comment on above: Order Comment: Michele ash Type: BLOOD SPECIMENOrdering Facility: [facility] Address: [address] [place] [address] Result Comment: Vi mated Glomerular Filtration Rate [...] actual GFR. Performed By: #### 2 4323-8, ####[facility] ERA [id number] [place] [address] [place] Glucose [Mass/Vol] 85 mg/dL Normal 74-99 [facility] Comment on above: Order Comment: Michele mihir Type: BLOOD SPECIMENOrdering Facility: [facility] Address: [address] [place] [address] Result Comment: The [place] Diabetes Association (ADA) provides guidance for cutoff [...] Standards of Medical Care in Diabetes 2016, [place] Diabetes Association. Diabetes Care. 2016.39(Suppl 1). Performed By: #### 2 4323-8, 63516-5 ####[facility] [id number] [place] [address] [place] Potassium [Moles/Vol] 4.3 mmol/L Normal 3.7-5.1 [facility] Comment on above: Order Comment: Speci men Type: BLOOD SPECIMENOrdering Facility: [facility] Address: [address] [place] [address] Performed By: #### 2 4323-8, ####[facility] ERAlexis [id number] [place] [address] [place] Protein [Mass/Vol] 6.0 g/dL Low 6.3-8.0 [facility] Comment on above: Order Comment: Speci men Type: BLOOD SPECIMENOrdering Facility: [facility] Address: [address] [place] [address] Performed By: #### 2 4323-8, ####[facility] [id number] [place] [address] [place] Sodium [Moles/Vol] 141 mmol/L Normal 136-144 [facility] Comment on above: Order Comment: Speci men Type: BLOOD SPECIMENOrdering Facility: [facility] Address: [address] [place] [address] Performed By: #### 2 4323-8, 90007-4 ####[facility] MILLTOWNCLIA [id number] [place] [address] [place] Urea nitrogen [Mass/Vol] 14 mg/dL Normal 7-21 [facility] Comment on above: Order Comment: Speci men Type: BLOOD SPECIMENOrdering Facility: [facility] Address: [address] [place] [address] Performed By: #### 2 4323-8, ####[facility]ITAL[facility]CLIA [id number] [place] [id number] [place] ECG COMPLETEon 10-28-2024 ECG COMPLETE Normal [facility] Ferritin SerPl-mCncon 2024 Ferritin [Mass/Vol] 43.3 ng/mL Normal 14.7-205.1 [facility] Comment on above: Order Comment: Speci men Type: BLOOD SPECIMENOrdering Facility: [facility] Address: [address] [place] [address] Performed By: #### 3 3762-6, 2276-4, 58415-8 ####[facility] LABIA [id number] [place] [address] [place] Iron and Iron binding capaci ty panelon 10-28-2024 Iron [Mass/Vol] 32 ug/dL Low 41-186 [facility] Comment on above: Order Comment: Speci men Type: BLOOD SPECIMENOrdering Facility: [facility] Address: [address] [place] [address] Performed By: #### 3 3762-6, 2276-4, 29852-0 ####[facility] LABIA [id number] [place] [address] [place] Iron binding capacity [Mass/Vol] 442 ug/dL High 232-386 [facility] Comment on above: Order Comment: Speci men Type: BLOOD SPECIMENOrdering Facility: [facility] Address: [address] [place] [address] Performed By: #### 3 3762-6, 2276-4, 44471-4 ####[facility]IA [id number] [place] [address] [place] Iron/TIBC [Molar ratio] 7.2 % Low 15.0-57.[address] [facility] Comment on above: Order Comment: Speci men Type: BLOOD SPECIMENOrdering Facility: [facility] Address: [address] [place] [address] Performed By: #### 3 3762-6, 2276-4, 66960-5 ####[facility] [id number] [place] [address] [place] Magnesium [facility] 10-28 Magnesium [Mass/Vol] 2.0 mg/dL Normal 1.7-2.3 [facility] Comment on above: Order Comment: Speci men Type: BLOOD SPECIMENOrdering Facility: [facility] Address: [address] [place] [address] Performed By: #### 2 4323-8, 42267-0 ####[facility] [id number] [place] [address] [place] NT-proBNP SerPl-ncon 10-28 Natriuretic peptide.B prohormone N-Terminal [Mass/Vol] 105 pg/mL Normal <125 [facility] Comment on above: Order Comment: Speci men Type: BLOOD SPECIMENOrdering Facility: [facility] Address: [address] [place] [address] Performed By: #### 3 3762-6, 2276-4, 28359-2 ####[facility]IA [id number] [place] [id number] [place] TOXICOLOGY SCREEN, ROUTINE U RINEon 10-28-2024 Amphetamines Confirm (U) [Mass/Vol] Negative Normal Negative [facility] Comment on above: Order Comment: Speci men Type: URINE SPECIMENOrdering Facility: [facility] Address: [address] [place] [address] Result Comment: Cuto ff threshold at 1000 ng/mL. Performed By: #### U TOX2 ####[facility] LABCLIA [id number] [place] [id number] [place] BARBITURATES, URINE Negative Normal Negative [facility] Comment on above: Order Comment: Speci men Type: URINE SPECIMENOrdering Facility: [facility] Address: [address] [place] [address] Result Comment: Cuto ff threshold at 200 ng/mL. Performed By: #### U TOX2 ####[facility] LABCLIA [id number] [place] [address] [place] BENZODIAZEPINES, URINE Negative Normal Negative [facility] Comment on above: Order Comment: Speci men Type: URINE SPECIMENOrdering Facility: [facility] Address: [address] [place] [address] Result Comment: Cuto ff threshold at 200 ng/mL. Performed By: #### U TOX2 ####[facility] LABCLIA [id number] [place] [address] [place] Cannabinoids Screen Ql (U) Negative Normal Negative [facility] Comment on above: Order Comment: Speci men Type: URINE SPECIMENOrdering Facility: [facility] Address: [address] [place] [address] Result Comment: Cuto ff threshold at 50 ng/mL. Performed By: #### U TOX2 ####[facility] LABCLIA [id number] [place] [address] [place] Cocaine Ql (U) Negative Normal Negative [facility] Comment on above: Order Comment: Speci men Type: URINE SPECIMENOrdering Facility: [facility] Address: [address] [place] [address] Result Comment: Cuto ff threshold at 300 ng/mL. Performed By: #### U TOX2 ####[facility] LABCLIA [id number] [place] [address] [place] Ethanol (U) [Mass/Vol] <11 Normal <11 [facility] Comment on above: Order Comment: Speci men Type: URINE SPECIMENOrdering Facility: [facility] Address: [address] [place] [address] Performed By: #### U TOX2 ####[facility] LABCLIA [id number] [place] [address] [place] fentaNYL Screen Ql (U) Negative Normal Negative [facility] Comment on above: Order Comment: Speci men Type: URINE SPECIMENOrdering Facility: [facility] Address: [address] [place] [address] Result Comment: Cuto ff threshold at 5 ng/mL. Performed By: #### U TOX2 ####[facility] [id number] [place] [address] [place] Opiates Screen Ql (U) Negative Normal Negative [facility] Comment on above: Order Comment: Speci men Type: URINE SPECIMENOrdering Facility: [facility] Address: [address] [place] [address] Result Comment: Cuto ff threshold at 300 ng/mL. Performed By: #### U TOX2 ####[facility]IA [id number] [place] [address] [place] oxyCODONE cutoff Screen (U) [Mass/Vol] Negative Normal Negative [facility] Comment on above: Order Comment: Speci men Type: URINE SPECIMENOrdering Facility: [facility] Address: [address] [place] [address] Result Comment: Cuto ff threshold at 100 ng/mL. Performed By: #### U TOX2 ####[facility] [id number] [place] [address] [place] Phencyclidine Ql (U) Negative Normal Negative [facility] Comment on above: Order Comment: Speci men Type: URINE SPECIMENOrdering Facility: [facility] Address: [address] [place] [address] Result Comment: Cuto ff threshold at 25 ng/mL. Performed By: #### U TOX2 ####[facility] LABCLIA [id number] [facility]ENTERDESK [id number] [place] [address] [place] US ABD RIGHT UPPER QUADRANTo n 10-28-2024 US ABD RIGHT UPPER QUADRANT Normal [facility] US Abdomen RUQon 10-28-2024 IMPRESSION: Gallbladder sludge. Cleaning Porter: PSCB Transcribe Date/Time: Oct 28 2024 3:10P Dictated by : YAQUELIN RIVERA MD This examination was interpreted and the report reviewed and electronically signed by: YAQUELIN RIVERA MD on Oct 28 2024 3:14PM [facility] DIVISION OF RADIOLOGY * * *Final Report* [...] limits. Ascites: None. DIVISION OF RADIOLOGY Provider, [facility] [place] - 10/28/2024 * * *Final Report* * [...] limits. Ascites: None. IMPRESSION IMPRESSION: Gallbladder sludge. Cleaning Porter: SEB Transcribe Date/Time: Oct 28 2024 3:10P Dictated by : YAQUELIN RIVERA MD This examination was interpreted and the report reviewed and electronically signed by: YAQUELIN RIVERA MD on Oct 28 2024 3:14PM [facility] Radiology Study observation (narrative) [facility] US Abdomen RUQOrdered By: Cc f Provider on 10-28-2024 [facility] CNOVon 09-25-2024 CNOV Normal [facility] CNOVon 09-18-2024 CNOV Normal [facility] 25(OH)D3 [facility]-ncon 2024 25-hydroxyvitamin D3 [Mass/Vol] 9.6 ng/mL Low 31.0-80.0 [facility] Comment on above: Order Comment: Michele ash Type: BLOOD SPECIMENOrdering Facility: [facility] Address: [address] [place] [address] Performed By: #### 1 989-3 ####[facility] LABCLIA [id number] [place] [address] [place] Folate SerPl-ncon 09-18-19 25 Folate [Mass/Vol] 8.8 ng/mL Normal >4.7 [facility] Comment on above: Order Comment: Michele ash Type: BLOOD SPECIMENOrdering Facility: [facility] Address: [address] [place] [address] Performed By: #### 2 132-9, 2284-8, 3016-3, 2730-8 ####[facility] LABCLIA [id number] [address] [address] [place] PTH-Intact SerPl-mCncon 05-1 Parathyrin.intact [Mass/Vol] 125 pg/mL High 15-65 [facility] Comment on above: Order Comment: Speci men Type: BLOOD SPECIMENOrdering Facility: [facility] Address: [address] [place] [address] Performed By: #### 2 132-9, 2284-8, 3016-3, 2730-8 ####[facility] LABIA [id number] [place] [id number] [place] TSH SerPl-aCncon 09-17-2024 TSH Qn 2.070 m[IU]/L Normal 0.270-4.200 [facility] Comment on above: Order Comment: Speci men Type: BLOOD SPECIMENOrdering Facility: [facility] Address: [address] [place] [address] Result Comment: If t he patient is , TSH reference range varies by gestational period:First Trimester (weeks 9-12): 0.180-2.990 mIU/LSecond Trimester: 0.110-3.980 mIU/LThird Trimester: 0.480-4.710 mIU/Roberto Wu et al. A Practical Approach for the Verifications and Determination of Site- and Trimester-Specific Reference Intervals for Thyroid Function tests in . Thyroid, 2019:29:3:412-420. Jensen Gutierrez, et al. 2017 Guidelines of the [place] Thyroid [employer] for the Diagnosis and Management of Thyroid Disease during and the . Thyroid, 2017:27:3:315-389. Performed By: #### 2 132-9, 2284-8, 3016-3, 2730-8 ####[facility] LABCLIA [id number] [address] [address] [place] VITAMIN B1 (THIAMINE), WHOLE BLOODon 09-17-2024 Thiamine (Bld) [Moles/Vol] 179.7 nmol/L Normal 84.3-213.3 [facility] Comment on above: Order Comment: Michele ash Type: BLOOD SPECIMENOrdering Facility: [facility] Address: [address] [place] [address] Result Comment: This assay measures the concentration of thiamine diphosphate (TDP), the primary active form of vitamin B1. Approximately 90 percent of vitamin B1 present in whole blood is TDP. Thiamine and thiamine monophosphate, which comprise the remaining 10 percent, are not measured.This test was developed, and its performance characteristics determined by the [facility] Department of Pathology and Laboratory Medicine. It has not been cleared or approved by the FDA. The [facility] Department of Pathology and Laboratory Medicine is regulated under CLIA as qualified to perform high-complexity testing. This test is used for clinical purposes. It should not be regarded as investigational or for research. Performed By: #### B 1WB ####[facility] LABIA [id number] [place] [address] [place] Vit B12 SerPl-ncon 025 Cobalamin (Vitamin B12) [Mass/Vol] 631 pg/mL Normal 232-1245 [facility] Comment on above: Order Comment: Michele ash Type: BLOOD SPECIMENOrdering Facility: [facility] Address: [address] [place] [address] Performed By: #### 2 132-9, 2284-8, 3016-3, 2731-8 ####[facility] [id number] [place] [phone] [place] XR CHEST 2V FRONTAL/LATon XR CHEST 2V FRONTAL/LAT Normal C [facility] XR Chest PA and Lateralon IMPRESSION: No acute radiographic abnormality. Stable elevation of the left hemidiaphragm. Cleaning Porter: SEB Transcribe Date/Time: Sep 17 2024 10:38A [...] soft tissues: Unremarkable. DIVISION OF RADIOLOGY Provider, [facility] [place] - 09/17/2024 * * *Final Report* * [...] abnormality. Stable elevation of the left hemidiaphragm. Cleaning Porter: PSCB Transcribe Date/Time: Sep 17 2024 10:38A Dictated by : SHAKEEL BROWNING MD This examination was interpreted and the report reviewed and electronically signed by: SHAKEEL BROWNING MD on Sep 17 2024 10:39AM [facility] Radiology Study observation (narrative) Lj Galdamez XR Chest PA and LateralOrder ed By: Cc Provider on 09-17-2024 [facility] CNCOon 09-15-2024 CNCO Letter Text Normal [facility] Culture, Blood (WB)on 2024 CUB Blood cultures x2, from two different sites No growth in 5 days. Normal [facility] Comment on above: Performed By: #### L 100.0100, L500.2500 #### [facility] [address] [place], [address] Basic Metabolic Profile (BMP )on 09-07-2024 BUN Normal 4-19 [facility] Comment on above: Result Comment: Canc elled via OM: Order cancelled - Patient discharged Performed By: #### L 100.0100, L500.2500 #### [facility] [address] [place], [address] BUN/CRE Normal 10-20 [facility] Comment on above: Result Comment: Canc elled via OM: Order cancelled - Patient discharged Performed By: #### L 100.0100, L500.2500 #### [facility] [address] [place], [address] Calcium Normal 7.6-11.0 [facility] Comment on above: Result Comment: Canc elled via OM: Order cancelled - Patient discharged Performed By: #### L 100.0100, L500.2500 #### [facility] [address] [place], [address] CL Normal 98-108 [facility] Comment on above: Result Comment: Canc elled via OM: Order cancelled - Patient discharged Performed By: #### L 100.0100, L500.2500 #### [facility] [address] [place], [address] CO2 Normal 21.0-32.0 [facility] Comment on above: Result Comment: Canc elled via OM: Order cancelled - Patient discharged Performed By: #### L 100.0100, L500.2500 #### [facility] [address] [place], [address] CREAT,SERUM Normal 0.70-1.20 [facility] Comment on above: Result Comment: Canc elled via OM: Order cancelled - Patient discharged Performed By: #### L 100.0100, L500.2500 #### [facility] [address] [place], [address] eGFR Normal >60 [facility] Comment on above: Result Comment: Canc elled via OM: Order cancelled - Patient discharged Performed By: #### L 100.0100, L500.2500 #### [facility] [address] [place], [address] GAP Normal 5-15 [facility] Comment on above: Result Comment: Canc elled via OM: Order cancelled - Patient discharged Performed By: #### L 100.0100, L500.2500 #### [facility] [address] [place], [address] GLU Normal 70-99 [facility] Comment on above: Result Comment: Canc elled via OM: Order cancelled - Patient discharged Performed By: #### L 100.0100, L500.2500 #### [facility] [address] [place], [address] Potassium Normal 3.3-5.1 [facility] Comment on above: Result Comment: Canc elled via OM: Order cancelled - Patient discharged Performed By: #### L 100.0100, L500.2500 #### [facility] [address] [place], [address] Basic Metabolic Profile (BMP) Normal 133-145 [facility] Comment on above: Result Comment: Canc elled via OM: Order cancelled - Patient discharged Performed By: #### L 100.0100, L500.2500 #### [facility] [address] [place], [address] CBC W/Diff, Automatedon 05-0 Absolute Neut Normal 2.0-7.7 [facility] Comment on above: Result Comment: Canc elled via OM: Order cancelled - Patient discharged Performed By: #### L 100.0100, L500.2500 #### [facility] [address] [place], [address] HCT Normal 37-47 [facility] Comment on above: Result Comment: Canc elled via OM: Order cancelled - Patient discharged Performed By: #### L 100.0100, L500.2500 #### [facility] [address] [place], [address] HGB Normal 12.0-15.0 [facility] Comment on above: Result Comment: Canc elled via OM: Order cancelled - Patient discharged Performed By: #### L 100.0100, L500.2500 #### [facility] [address] [place], [address] MCH Normal 27.0-32.0 [facility] Comment on above: Result Comment: Canc elled via OM: Order cancelled - Patient discharged Performed By: #### L 100.0100, L500.2500 #### [facility] [address] [place], [address] MCHC Normal 32-36 [facility] Comment on above: Result Comment: Canc elled via OM: Order cancelled - Patient discharged Performed By: #### L 100.0100, L500.2500 #### [facility] [address] [place], [address] MCV Normal 81-99 [facility] Comment on above: Result Comment: Canc elled via OM: Order cancelled - Patient discharged Performed By: #### L 100.0100, L500.2500 #### [facility] [address] [place], [address] NEUT% Normal 47-70 [facility] Comment on above: Result Comment: Canc elled via OM: Order cancelled - Patient discharged Performed By: #### L 100.0100, L500.2500 #### [facility] [address] [facility] [address] PLT Normal 150-450 [facility] Comment on above: Result Comment: Canc elled via OM: Order cancelled - Patient discharged Performed By: #### L 100.0100, L500.2500 #### [facility] [address] [facility] [address] RBC Normal 4.2-5.4 [facility] Comment on above: Result Comment: Canc elled via OM: Order cancelled - Patient discharged Performed By: #### L 100.0100, L500.2500 #### [facility] [address] [facility] [address] RDW CV Normal 11.6-14.6 [facility] Comment on above: Result Comment: Canc elled via OM: Order cancelled - Patient discharged Performed By: #### L 100.0100, L500.2500 #### [facility] [address] [facility] [address] RDW SD Normal 35.1-43.9 [facility] Comment on above: Result Comment: Canc elled via OM: Order cancelled - Patient discharged Performed By: #### L 100.0100, L500.2500 #### [facility] [address] [facility] [address] WBC Normal 4.4-11.0 [facility] Comment on above: Result Comment: Canc elled via OM: Order cancelled - Patient discharged Performed By: #### L 100.0100, L500.2500 #### [facility] [address] [facility] [address] Respiratory Cultureon 2024 RESPC #1 Penicillin is the drug of choice for Beta Streptococcal infections. For Penicillin allergic patients, Erythromycin may be used. Microorganism Spec Cult No Haemophilus, Streptococcus pneumoniae, or Staphylococcus aureus isolated. Streptococcus group F Amount Growth Rare Normal [facility] Comment on above: Performed By: #### L 100.0100, L500.2500 #### [facility] [address] [place], [address] Absolute lymphocyte countOrd ered By: Evans Carter on 09-06-2024 Lymphocytes Auto (Unsp spec) [#/Vol] 2.13 10*3/uL 0.83-4.51 [facility] Absolute neutrophil countOrd ered By: Evans Carter on 09-06-2024 Neutrophils (Bld) [#/Vol] 8.1 10*3/uL High 2.0-7.7 [facility] Anion gap in Serum or Plasma Ordered By: Evans Carter on 09-06-2024 Anion gap [Moles/Vol] 10 mmol/L 5-15 [facility] Automated lymphocyte count a s percentage of total leukocytesOrdered By: Evans Carter on 09-06-2024 Lymphocytes/100 WBC Auto (Unsp spec) 18.9 % Low 19-41 [facility] BUN/creatinine ratioOrdered By: Evans Carter on 09-06-2024 Urea nitrogen/Creatinine [Mass ratio] 24.7 mg/mg High 10-20 [facility] Basic Metabolic Profile (BMP )on 09-06-2024 BUN/CRE 24.7 RATIO High 10-20 [facility] Comment on above: Performed By: #### L 500.2500, L100.0100 #### [facility] [address] [place], [address] Calcium [Mass/Vol] 8.5 mg/dL Normal 7.6-11.0 [facility] Comment on above: Performed By: #### L 500.2500, L100.0100 #### [facility] [address] [place], [address] Chloride [Moles/Vol] 98 mmol/L Normal 98-108 [facility] Comment on above: Performed By: #### L 500.2500, L100.0100 #### [facility] [address] [place], [address] CO2 [Moles/Vol] 34.5 mmol/L High 21.0-32.0 [facility] Comment on above: Performed By: #### L 500.2500, L100.0100 #### [facility] [address] [place], [address] Creatinine [Mass/Vol] 0.51 mg/dL Low 0.70-1.20 [facility] Comment on above: Performed By: #### L 500.2500, L100.0100 #### [facility] [address] [place], [address] ECRCL 310.55 ml/min High 50-250 [facility] Comment on above: Performed By: #### L 500.2500, L100.0100 #### [facility] [address] [place], [address] GAP 10 Normal 5-15 [facility] Comment on above: Performed By: #### L 500.2500, L100.0100 #### [facility] [address] [place], [address] GFR/1.73 sq M.predicted among non-blacks MDRD (S/P/Bld) [Vol rate/Area] 127 mL/min/{1.73_m2} Normal >60 [facility] Comment on above: Result Comment: mL/m in/1.73m2 CKD-EPI Creatinine Equation (2020) Performed By: #### L 500.2500, L100.0100 #### [facility] [address] [place], [address] Glucose [Mass/Vol] 128 mg/dL High 70-99 [facility] Comment on above: Performed By: #### L 500.2500, L100.0100 #### [facility] [address] [place], [address] Potassium [Moles/Vol] 4.2 mmol/L Normal 3.3-5.1 [facility] Comment on above: Performed By: #### L 500.2500, L100.0100 #### [facility] [address] [place], [address] Sodium [Moles/Vol] 142 mmol/L Normal 133-145 [facility] Comment on above: Performed By: #### L 500.2500, L100.0100 #### [facility] [address] [place], [address] Urea nitrogen [Mass/Vol] 13 mg/dL Normal 4-19 [facility] Comment on above: Performed By: #### L 500.2500, L100.0100 #### [facility] [address] [place], [address] Basophil percentageOrdered B y: Evans Carter on 09-06-2024 Basophils/100 WBC (Bld) 0.2 % 0-1 [facility] CBC W/Diff, Automatedon Absolute Lymph 2.13 X10 3/uL Normal 0.83-4.51 [facility] Comment on above: Performed By: #### L 500.2500, L100.0100 #### [facility] [address] [place], [address] Absolute Neut 8.1 X10 3/uL High 2.0-7.7 [facility] Comment on above: Performed By: #### L 500.2500, L100.0100 #### [facility] [address] [place], [address] Basophils/100 WBC (Bld) 0.2 % Normal 0-1 [facility] Comment on above: Performed By: #### L 500.2500, L100.0100 #### [facility] [address] [place], [address] Eosinophils/100 WBC (Bld) 0.1 % Normal 0-5 [facility] Comment on above: Performed By: #### L 500.2500, L100.0100 #### [facility] [address] [place], [address] Erythrocyte distribution width (RBC) [Ratio] 18.0 % High 11.6-14.6 [facility] Comment on above: Performed By: #### L 500.2500, L100.0100 #### [facility] [address] [place], [address] Hematocrit (Bld) [Volume fraction] 39.2 % Normal 37-47 [facility] Comment on above: Performed By: #### L 500.2500, L100.0100 #### [facility] [address] [place], [address] Hemoglobin (Bld) [Mass/Vol] 10.4 g/dL Low 12.0-15.0 [facility] Comment on above: Performed By: #### L 500.2500, L100.0100 #### [facility] [address] [place], [address] IG% 1.300 High 0.0-0.9 [facility] Comment on above: Result Comment: IG% - Immature Granulocytes (promyelocytes, myelocytes and metamyelocytes) > 1% indicates that a LEFT SHIFT is Present. Performed By: #### L 500.2500, L100.0100 #### [facility] [address] [place], [address] Lymphocytes/100 WBC (Bld) 18.9 % Low 19-41 [facility] Comment on above: Performed By: #### L 500.2500, L100.0100 #### [facility] [address] [place], [address] MCH (RBC) [Entitic mass] 20.3 pg Low 27.0-32.0 [facility] Comment on above: Performed By: #### L 500.2500, L100.0100 #### [facility] [address] [place], [address] MCHC (RBC) [Mass/Vol] 26.5 g/dL Low 32-36 [facility] Comment on above: Performed By: #### L 500.2500, L100.0100 #### [facility] [address] [place], [address] MCV (RBC) [Entitic vol] 76.4 fL Low 81-99 [facility] Comment on above: Performed By: #### L 500.2500, L100.0100 #### [facility] [address] [place], [address] Monocytes/100 WBC (Bld) 7.5 % Normal 0-10 [facility] Comment on above: Performed By: #### L 500.2500, L100.0100 #### [facility] [address] [place], [address] Neutrophils/100 WBC (Bld) 72.0 % High 47-70 [facility] Comment on above: Performed By: #### L 500.2500, L100.0100 #### [facility] [address] [place], [address] Nucleated RBC (Bld) [#/Vol] 0.2 10*3/uL Normal 0-5 [facility] Comment on above: Performed By: #### L 500.2500, L100.0100 #### [facility] [address] [place], [address] Platelet mean volume (Bld) [Entitic vol] 9.9 fL Normal 6.2-12.0 [facility] Comment on above: Performed By: #### L 500.2500, L100.0100 #### [facility] [address] [place], [address] Platelets (Bld) [#/Vol] 249 10*3/uL Normal 150-450 [facility] Comment on above: Performed By: #### L 500.2500, L100.0100 #### [facility] [address] [place], [address] RBC (Bld) [#/Vol] 5.13 10*6/uL Normal 4.2-5.4 [facility] Comment on above: Performed By: #### L 500.2500, L100.0100 #### [facility] [address] [place], [address] RDW SD 49.1 fl High 35.1-43.9 [facility] Comment on above: Performed By: #### L 500.2500, L100.0100 #### [facility] [address] [place], [address] WBC (Bld) [#/Vol] 11.3 10*3/uL High 4.4-11.0 [facility] Comment on above: Performed By: #### L 500.2500, L100.0100 #### [facility] [address] [place], [address] Carbon dioxide, total [Moles /volume] in Central venous bloodOrdered By: Evans Carter on 09-06-2024 CO2 [Moles/Vol] 34.5 mmol/L High 21.0-32.0 [facility] Chloride assayOrdered By: Gerry Carter on 09-06-2024 Chloride [Moles/Vol] 98 mmol/L 98-108 [facility] Eosinophil percentageOrdered By: Evans Carter on 09-06-2024 Eosinophils/100 WBC (Bld) 0.1 % 0-5 [facility] Erythrocyte distribution wid th (RBC) [Ratio]Ordered By: Evans Carter on 09-06-2024 Erythrocyte distribution width (RBC) [Entitic vol] 49.1 fL High 35.1-43.9 [facility] Erythrocyte distribution wid th ratioOrdered By: Evans Carter on 09-06-2024 Erythrocyte distribution width (RBC) [Ratio] 18.0 % High 11.6-14.6 [facility] Erythrocyte distribution wid th standard deviationOrdered By: Evans Carter on 09-06-2024 Erythrocyte distribution width (RBC) [Ratio] 49.1 fl High 35.1-43.9 [facility] Estimation of creatinine ron aranceOrdered By: Evans Carter on 09-06-2024 Estimated Creatinine Clearance Calc 310.55 ml/min High 50-250 [facility] GFR/1.73 sq M.predicted stevo g non-blacks MDRD (S/P/Bld) [Vol rate/Area]Ordered By: Evans Carter on 09-06-2024 Estimated GFR (MDRD) Non-Af Amer 127 >60 [facility] Comment on above: mL/min/1.73m2 CKD-EP I Creatinine Equation (2020) Glomerular filtration rate ( GFR) estimation/1.73 sq m using serum, plasma, or whole bOrdered By: Evans Carter on 09-06-2024 GFR/1.73 sq M.predicted among non-blacks MDRD (S/P/Bld) [Vol rate/Area] 127 mL/min/{1.73_m2} >60 [facility] Comment on above: mL/min/1.73m2 CKD-EP I Creatinine Equation (2020) Hematocrit Auto (Bld) [Volum e fraction]Ordered By: Evans Carter on 09-06-2024 Hematocrit (Bld) [Volume fraction] 39.2 % 37-47 [facility] Hemoglobin measurementOrdere d By: Evans Carter on 09-06-2024 Hemoglobin (Bld) [Mass/Vol] 10.4 g/dL Low 12.0-15.0 [facility] Immature granulocytes/100 WB C Auto (Bld)Ordered By: Evans Carter on 09-06-2024 Immature granulocytes/100 WBC (Bld) 1.300 % High 0.0-0.9 [facility] Comment on above: IG% - Immature Granu locytes (promyelocytes, myelocytes and metamyelocytes) > 1% indicates that a LEFT SHIFT is Present. Lymphocytes Auto (Unsp spec) [#/Vol]Ordered By: Evans Carter on 09-06-2024 Lymphocytes (Bld) [#/Vol] 2.13 10*3/uL 0.83-4.51 [facility] Lymphocytes/100 WBC Auto (Un sp spec)Ordered By: Evans Carter on 09-06-2024 Lymphocytes/100 WBC (Bld) 18.9 % Low 19-41 [facility] MCV (mean corpuscular volume ) determinationOrdered By: Evasn Carter on 09-06-2024 MCV (RBC) [Entitic vol] 76.4 fL Low 81-99 [facility] Mean corpuscular hemoglobin (MCH) determinationOrdered By: Evans Carter on 09-06-2024 MCH (RBC) [Entitic mass] 20.3 pg Low 27.0-32.0 [facility] Mean corpuscular hemoglobin concentration (MCHC) determinationOrdered By: Evans Carter on 09-06-2024 MCHC (RBC) [Mass/Vol] 26.5 g/dL Low 32-36 [facility] Mean platelet volume determi nationOrdered By: Evans Carter on 09-06-2024 Platelet mean volume (Bld) [Entitic vol] 9.9 fL 6.2-12.0 [facility] Monocyte percentageOrdered B y: Evans Carter on 09-06-2024 Monocytes/100 WBC (Bld) 7.5 % 0-10 [facility] Neutrophil percentageOrdered By: Evans Carter on 09-06-2024 Neutrophils/100 WBC (Bld) 72.0 % High 47-70 [facility] Nucleated red blood cell per centageOrdered By: Evans Carter on 09-06-2024 Nucleated RBC/100 WBC (Bld) [Ratio] 0.2 % 0-5 [facility] Platelet countOrdered By: Gerry Carter on 09-06-2024 Platelets (Bld) [#/Vol] 249 10*3/uL 150-450 [facility] Potassium (Unsp spec) [Mass/ Vol]Ordered By: Evans Carter on 09-06-2024 Potassium [Moles/Vol] 4.2 mmol/L 3.3-5.1 [facility] Potassium measurement (mass/ volume)Ordered By: Evans Carter on 09-06-2024 Potassium (Unsp spec) [Mass/Vol] 4.2 mmol/L 3.3-5.1 [facility] RBC Auto (Bld) [#/Vol]Ordere d By: Evans Carter on 09-06-2024 RBC (Bld) [#/Vol] 5.13 10*6/uL 4.2-5.4 [facility] Serum creatinine measurement (mass/volume)Ordered By: Evans Carter on 09-06-2024 Creatinine [Mass/Vol] 0.51 mg/dL Low 0.70-1.20 [facility] Serum glucose measurement (m ass/volume)Ordered By: Evans Carter on 09-06-2024 Glucose [Mass/Vol] 128 mg/dL High 70-99 [facility] Serum or plasma calcium maryjane urement (mass/volume)Ordered By: Evans Carter on 09-06-2024 Calcium [Mass/Vol] 8.5 mg/dL 7.6-11.0 [facility] Serum or plasma urea nitroge n measurement (mass/volume)Ordered By: Evans Carter on 09-06-2024 Urea nitrogen [Mass/Vol] 13 mg/dL 4-19 [facility] Sodium levelOrdered By: Kareem Carter on 09-06-2024 Sodium [Moles/Vol] 142 mmol/L 133-145 [facility] White blood cell (WBC) count Ordered By: Evans Carter on 09-06-2024 WBC (Bld) [#/Vol] 11.3 10*3/uL High 4.4-11.0 [facility] Basic Metabolic Profile (BMP )on 09-05-2024 BUN/CRE 17.2 RATIO Normal 10-20 [facility] Comment on above: Performed By: #### L 500.2500, L503.7505, L501.2300, L100.0100, L501.5200, L500.4100 #### [facility] [address] [place] [address]. [place], [place], [id number] Calcium [Mass/Vol] 8.7 mg/dL Normal 7.6-11.0 [facility] Comment on above: Performed By: #### L 500.2500, L503.7505, L501.2300, L100.0100, L501.5200, L500.4100 #### [facility] [address] [place], [address] Chloride [Moles/Vol] 99 mmol/L Normal 98-108 [facility] Comment on above: Performed By: #### L 500.2500, L503.7505, L501.2300, L100.0100, L501.5200, L500.4100 #### [facility] [address] [place], [address] CO2 [Moles/Vol] 35.3 mmol/L High 21.0-32.0 [facility] Comment on above: Performed By: #### L 500.2500, L503.7505, L501.2300, L100.0100, L501.5200, L500.4100 #### [facility] [address] [place], [address] Creatinine [Mass/Vol] 0.57 mg/dL Low 0.70-1.20 [facility] Comment on above: Performed By: #### L 500.2500, L503.7505, L501.2300, L100.0100, L501.5200, L500.4100 #### [facility] [address] [place], [address] ECRCL 278.58 ml/min High 50-250 [facility] Comment on above: Performed By: #### L 500.2500, L503.7505, L501.2300, L100.0100, L501.5200, L500.4100 #### [facility] [address] [place], [address] GAP 7 Normal 5-15 [facility] Comment on above: Performed By: #### L 500.2500, L503.7505, L501.2300, L100.0100, L501.5200, L500.4100 #### [facility] [address] [place], [address] GFR/1.73 sq M.predicted among non-blacks MDRD (S/P/Bld) [Vol rate/Area] 124 mL/min/{1.73_m2} Normal >60 [facility] Comment on above: Result Comment: mL/m in/1.73m2 CKD-EPI Creatinine Equation (2020) Performed By: #### L 500.2500, L503.7505, L501.2300, L100.0100, L501.5200, L500.4100 #### [facility] [address] [place], [address] Glucose [Mass/Vol] 151 mg/dL High 70-99 [facility] Comment on above: Performed By: #### L 500.2500, L503.7505, L501.2300, L100.0100, L501.5200, L500.4100 #### [facility] [address] [place], [address] Potassium [Moles/Vol] 4.8 mmol/L Normal 3.3-5.1 [facility] Comment on above: Performed By: #### L 500.2500, L503.7505, L501.2300, L100.0100, L501.5200, L500.4100 #### [facility] [address] [place], [address] Sodium [Moles/Vol] 141 mmol/L Normal 133-145 [facility] Comment on above: Performed By: #### L 500.2500, L503.7505, L501.2300, L100.0100, L501.5200, L500.4100 #### [facility] [address] [place], [address] Urea nitrogen [Mass/Vol] 10 mg/dL Normal 4-19 [facility] Comment on above: Performed By: #### L 500.2500, L503.7505, L501.2300, L100.0100, L501.5200, L500.4100 #### [facility] [address] [place], [address] CBC W/Diff, Automatedon 05-0 1-2024 Absolute Lymph 1.49 X10 3/uL Normal 0.83-4.51 [facility] Comment on above: Performed By: #### L 500.2500, L503.7505, L501.2300, L100.0100, L501.5200, L500.4100 #### [facility] [address] [place], [address] Absolute Neut 14.6 X10 3/uL High 2.0-7.7 [facility] Comment on above: Performed By: #### L 500.2500, L503.7505, L501.2300, L100.0100, L501.5200, L500.4100 #### [facility] [address] [place], [address] Basophils/100 WBC (Bld) 0.2 % Normal 0-1 [facility] Comment on above: Performed By: #### L 500.2500, L503.7505, L501.2300, L100.0100, L501.5200, L500.4100 #### [facility] [address] [place], [address] Eosinophils/100 WBC (Bld) 0.0 % Normal 0-5 [facility] Comment on above: Performed By: #### L 500.2500, L503.7505, L501.2300, L100.0100, L501.5200, L500.4100 #### [facility] [address] [place], [address] Erythrocyte distribution width (RBC) [Ratio] 17.8 % High 11.6-14.6 [facility] Comment on above: Performed By: #### L 500.2500, L503.7505, L501.2300, L100.0100, L501.5200, L500.4100 #### [facility] [address] [place], [address] Hematocrit (Bld) [Volume fraction] 40.2 % Normal 37-47 [facility] Comment on above: Performed By: #### L 500.2500, L503.7505, L501.2300, L100.0100, L501.5200, L500.4100 #### [facility] [address] [place], [address] Hemoglobin (Bld) [Mass/Vol] 10.7 g/dL Low 12.0-15.0 [facility] Comment on above: Performed By: #### L 500.2500, L503.7505, L501.2300, L100.0100, L501.5200, L500.4100 #### [facility] [address] [place], [address] IG% 1.500 High 0.0-0.9 [facility] Comment on above: Result Comment: IG% - Immature Granulocytes (promyelocytes, myelocytes and metamyelocytes) > 1% indicates that a LEFT SHIFT is Present. Performed By: #### L 500.2500, L503.7505, L501.2300, L100.0100, L501.5200, L500.4100 #### [facility] [address] [place], [address] Lymphocytes/100 WBC (Bld) 8.7 % Low 19-41 [facility] Comment on above: Performed By: #### L 500.2500, L503.7505, L501.2300, L100.0100, L501.5200, L500.4100 #### [facility] [address] [place], [address] MCH (RBC) [Entitic mass] 20.2 pg Low 27.0-32.0 [facility] Comment on above: Performed By: #### L 500.2500, L503.7505, L501.2300, L100.0100, L501.5200, L500.4100 #### [facility] [address] [place], [address] MCHC (RBC) [Mass/Vol] 26.6 g/dL Low 32-36 [facility] Comment on above: Performed By: #### L 500.2500, L503.7505, L501.2300, L100.0100, L501.5200, L500.4100 #### [facility] [address] [place], [address] MCV (RBC) [Entitic vol] 76.0 fL Low 81-99 [facility] Comment on above: Performed By: #### L 500.2500, L503.7505, L501.2300, L100.0100, L501.5200, L500.4100 #### [facility] [address] [place], [address] Monocytes/100 WBC (Bld) 3.8 % Normal 0-10 [facility] Comment on above: Performed By: #### L 500.2500, L503.7505, L501.2300, L100.0100, L501.5200, L500.4100 #### [facility] [address] [place], [address] Neutrophils/100 WBC (Bld) 85.8 % High 47-70 [facility] Comment on above: Performed By: #### L 500.2500, L503.7505, L501.2300, L100.0100, L501.5200, L500.4100 #### [facility] [address] [place], [address] Nucleated RBC (Bld) [#/Vol] 0.4 10*3/uL Normal 0-5 [facility] Comment on above: Performed By: #### L 500.2500, L503.7505, L501.2300, L100.0100, L501.5200, L500.4100 #### [facility] [address] [place], [address] Platelet mean volume (Bld) [Entitic vol] 9.4 fL Normal 6.2-12.0 [facility] Comment on above: Performed By: #### L 500.2500, L503.7505, L501.2300, L100.0100, L501.5200, L500.4100 #### [facility] [address] [place], [address] Platelets (Bld) [#/Vol] 273 10*3/uL Normal 150-450 [facility] Comment on above: Performed By: #### L 500.2500, L503.7505, L501.2300, L100.0100, L501.5200, L500.4100 #### [facility] [address] [place], [address] RBC (Bld) [#/Vol] 5.29 10*6/uL Normal 4.2-5.4 [facility] Comment on above: Performed By: #### L 500.2500, L503.7505, L501.2300, L100.0100, L501.5200, L500.4100 #### [facility] [address] [place], [address] RDW SD 48.5 fl High 35.1-43.9 [facility] Comment on above: Performed By: #### L 500.2500, L503.7505, L501.2300, L100.0100, L501.5200, L500.4100 #### [facility] [address] [place], [address] WBC (Bld) [#/Vol] 17.0 10*3/uL High 4.4-11.0 [facility] Comment on above: Performed By: #### L 500.2500, L503.7505, L501.2300, L100.0100, L501.5200, L500.4100 #### [facility] [address] [place], [address] Calculated very low density lipoprotein (VLDL) cholesterol measurementOrdered By: Evans Carter on 09-05-2024 Calculated very low density lipoprotein (VLDL) cholesterol measurement 15 mg/dL - [facility] VLDL Cholesterol 15 mg/dL -40 [facility] Gram Stainon 09-05-2024 GS Acceptable Specimen? Yes (<25 Epithelial cells per/lpf) Gram Stain 2+ Gram positive cocci 1+ Gram positive rods Normal [facility] Comment on above: Performed By: #### L 100.0100, L500.2500 #### [facility] [address] [place], [address] Gram stainOrdered By: Toro Holcomb on 09-05-2024 Microscopic observation Gram stain Nom (Unsp spec) [facility] Hemoglobin A1con 09-05-2024 HbA1c (Bld) [Mass fraction] 6.0 % High <=5.6 [facility] Comment on above: Result Comment: Norm al < 5.7 % Prediabetic 5.7 - 6.4 % Diabetic >or= 6.5 % Please note range changes. Performed By: #### L 100.0100, L500.2500 #### [facility] [address] [place], [address] Hemoglobin A1c percentageOrd ered By: Evans Carter on 09-05-2024 HbA1c (Bld) [Mass fraction] 6.0 % High <5.7 [facility] Comment on above: Normal < 5.7 % Predi abetic 5.7 - 6.4 % Diabetic >or= 6.5 % Please note range changes. L503.7505on 09-05-2024 Natriuretic peptide B (Bld) [Mass/Vol] 195 pg/mL Normal <=450 [facility] Comment on above: Result Comment: Hear t Failure Unlikely: < 300 pg/mL Heart Failure Likely < 50 Years: > 450 pg/mL 50-75 Years: > 900 pg/mL >75 Years: > 1800 pg/mL Performed By: #### L 9000.0810 #### [facility] [address] [place], [address] LDL calc ser/plasOrdered By: Evans Carter on 09-05-2024 Cholesterol in LDL [Mass/Vol] 96 mg/dL [facility] Comment on above: Zpjtdztvev=375-638 m g/dL & Higher Xhps=582 mg/dL or greater LDL Cholesterol, Calculated 96 mg/dL [facility] Comment on above: Tlwrmrsari=935-988 m g/dL & Higher Aaug=300 mg/dL or greater Lipid Profileon 09-05-2024 CHOL:HDL 3.37 Normal [facility] Comment on above: Performed By: #### L 9000.0810 #### [facility] [address] [place], [place], [id number] [phone] Cholesterol [Mass/Vol] 157 mg/dL Normal <=200 [facility] Comment on above: Result Comment: Chol esterol level, Desirable <200 mg/dL Borderline high cholesterol 200-239 mg/dL High cholesterol >=240 mg/dL Recommendations of the NCEP Adult Treatment Panel for the following risk-cutoff thresholds for the [place] population. Performed By: #### L 9000.0810 #### [facility] [address] [place], [place], [address] Cholesterol in HDL [Mass/Vol] 47 mg/dL Normal [facility] Comment on above: Result Comment: Dee onal Cholesterol Education Program (NCEP) guidelines: <40 mg/dL: Low HDL-cholesterol (major risk factor for CHD) >= 60 mg/dL: High HDL-cholesterol (negative risk factor for CHD) HDL-cholesterol is affected by a number of factors, e.g. smoking, exercise, hormones, sex and age. Performed By: #### L 9000.0810 #### [facility] [address] [place], [address] Cholesterol in LDL [Mass/Vol] 96 mg/dL Normal [facility] Comment on above: Result Comment: Bord xczsfs=143-111 mg/dL Higher Znma=204 mg/dL or greater Performed By: #### L 9000.0810 #### [facility] [address] [place], [address] Cholesterol in VLDL [Mass/Vol] 15 mg/dL Normal 5-40 [facility] Comment on above: Performed By: #### L 9000.0810 #### [facility] [address] [place], [address] Triglyceride [Mass/Vol] 73 mg/dL Normal [facility] Comment on above: Result Comment: The drugs N-Acetylcysteine and Metamizole may falsely depress this assay. Normal range: <150 mg/dL Borderline High: 150-199 mg/dL High: 200-499 mg/dL Very High: >500 mg/dL Performed By: #### L 9000.0810 #### [facility] [address] [place], [address] Magnesiumon 09-05-2024 Magnesium [Mass/Vol] 2.4 mg/dL High 1.5-2.2 [facility] Comment on above: Performed By: #### L 9000.0810 #### [facility] [address] [place], [address] Magnesium (Unsp spec) [Mass/ Vol]Ordered By: Evans Carter on 09-05-2024 Magnesium [Mass/Vol] 2.4 mg/dL High 1.5-2.2 [facility] Magnesium measurement (mass/ volume)Ordered By: Evans Carter on 09-05-2024 Magnesium (Unsp spec) [Mass/Vol] 2.4 mg/dL High 1.5-2.2 [facility] Microbial respiratory cultur eOrdered By: Toro Holcomb on 09-05-2024 Microorganism identified Cx Nom (Unsp spec) Streptococcus group F Abnormal [facility] Natriuretic peptide.B prohor chad N-Terminal [Mass/Vol]Ordered By: vEans Carter on 09-05-2024 Natriuretic peptide B (Bld) [Mass/Vol] 195 pg/mL <450 [facility] Comment on above: Heart Failure Unlike ly: < 300 pg/mLHeart Failure Likely< 50 Years: > 450 pg/mL50-75 Years: > 900 pg/mL>75 Years: > 1800 pg/mL Natriuretic peptide.B prohor chad N-Terminal [Mass/volume] in Serum or PlasmaOrdered By: Evans Carter on 09-05-2024 Natriuretic peptide.B prohormone N-Terminal [Mass/Vol] 195 pg/mL <450 [facility] Comment on above: Heart Failure Unlike ly: < 300 pg/mLHeart Failure Likely< 50 Years: > 450 pg/mL50-75 Years: > 900 pg/mL>75 Years: > 1800 pg/mL Phosphoruson 09-05-2024 Phosphate [Mass/Vol] 3.1 mg/dL Normal 2.7-4.5 [facility] Comment on above: Performed By: #### L 9000.0810 #### [facility] [address] [place], [address] Screening total cholesterol/ high density lipoprotein (HDL) cholesterol ratioOrdered By: Evans Carter on 09-05-2024 Cholesterol.total/Abi sterol in HDL [Mass ratio] 3.37 {ratio} [facility] Serum or plasma cholesterol in HDL measurement (mass/volume)Ordered By: Evans Carter on 09-05-2024 Cholesterol in HDL [Mass/Vol] 47 mg/dL >40 [facility] Comment on above: National Cholesterol Education Program (NCEP) guidelines:<40 mg/dL: Low HDL-cholesterol (major risk factor for CHD)>= 60 mg/dL: High HDL-cholesterol (negative risk factor for CHD)HDL-cholesterol is affected by a number of factors, e.g. smoking, exercise, hormones, sex and age. Serum or plasma cholesterol measurement (mass/volume)Ordered By: Evans Carter on 09-05-2024 Cholesterol [Mass/Vol] 157 mg/dL <201 [facility] Comment on above: Cholesterol level, D esirable <200 mg/dLBorderline high cholesterol 200-239 mg/dLHigh cholesterol >=240 mg/dLRecommendations of the NCEP Adult Treatment Panel for the following risk-cutoff thresholds for the [place] population. Serum phosphorus measurement Ordered By: Evans Carter on 09-05-2024 Phosphorus Level 3.1 mg/dL 2.7-4.5 [facility] Triglycerides measurementOrd ered By: Evans Carter on 09-05-2024 Triglyceride [Mass/Vol] 73 mg/dL <199 [facility] Comment on above: The drugs N-Acetylcy steine and Metamizole may falsely depress this assay. Normal range: <150 mg/dLBorderline High: 150-199 mg/dLHigh: 200-499 mg/dLVery High: >500 mg/dL Basic Metabolic Profile (BMP )on 09-04-2024 BUN/CRE 15.3 RATIO Normal 10-20 [facility] Comment on above: Performed By: #### L 100.0100, L500.2500 #### [facility] [address] [place], [address] Calcium [Mass/Vol] 8.5 mg/dL Normal 7.6-11.0 [facility] Comment on above: Performed By: #### L 100.0100, L500.2500 #### [facility] [address] [place], [address] Chloride [Moles/Vol] 100 mmol/L Normal 98-108 [facility] Comment on above: Performed By: #### L 100.0100, L500.2500 #### [facility] [address] [place], [address] CO2 [Moles/Vol] 33.9 mmol/L High 21.0-32.0 [facility] Comment on above: Performed By: #### L 100.0100, L500.2500 #### [facility] [address] [place], [address] Creatinine [Mass/Vol] 0.63 mg/dL Low 0.70-1.20 [facility] Comment on above: Performed By: #### L 100.0100, L500.2500 #### [facility] [address] [place], [address] ECRCL 250.02 ml/min High 50-250 [facility] Comment on above: Performed By: #### L 100.0100, L500.2500 #### [facility] [address] [place], [address] GAP 7 Normal 5-15 [facility] Comment on above: Performed By: #### L 100.0100, L500.2500 #### [facility] [address] [place], [address] GFR/1.73 sq M.predicted among non-blacks MDRD (S/P/Bld) [Vol rate/Area] 121 mL/min/{1.73_m2} Normal >60 [facility] Comment on above: Result Comment: mL/m in/1.73m2 CKD-EPI Creatinine Equation (2020) Performed By: #### L 100.0100, L500.2500 #### [facility] [address] [place], [address] Glucose [Mass/Vol] 192 mg/dL High 70-99 [facility] Comment on above: Performed By: #### L 100.0100, L500.2500 #### [facility] [address] [place], [address] Potassium [Moles/Vol] 5.1 mmol/L Normal 3.3-5.1 [facility] Comment on above: Performed By: #### L 100.0100, L500.2500 #### [facility] [address] [place], [address] Sodium [Moles/Vol] 141 mmol/L Normal 133-145 [facility] Comment on above: Performed By: #### L 100.0100, L500.2500 #### [facility] [address] [place], [address] Urea nitrogen [Mass/Vol] 10 mg/dL Normal 4-19 [facility] Comment on above: Performed By: #### L 100.0100, L500.2500 #### [facility] [address] [place], [address] CBC W/Diff, Automatedon 04-3 0-2024 Absolute Lymph 0.95 X10 3/uL Normal 0.83-4.51 [facility] Comment on above: Performed By: #### L 100.0100, L500.2500 #### [facility] [address] [place], [address] Absolute Neut 13.5 X10 3/uL High 2.0-7.7 [facility] Comment on above: Performed By: #### L 100.0100, L500.2500 #### [facility] [address] [place], [address] Basophils/100 WBC (Bld) 0.2 % Normal 0-1 [facility] Comment on above: Performed By: #### L 100.0100, L500.2500 #### [facility] [address] [place], [address] Eosinophils/100 WBC (Bld) 0.0 % Normal 0-5 [facility] Comment on above: Performed By: #### L 100.0100, L500.2500 #### [facility] [address] [place], [address] Erythrocyte distribution width (RBC) [Ratio] 18.0 % High 11.6-14.6 [facility] Comment on above: Performed By: #### L 100.0100, L500.2500 #### [facility] [address] [place], [address] Hematocrit (Bld) [Volume fraction] 40.1 % Normal 37-47 [facility] Comment on above: Performed By: #### L 100.0100, L500.2500 #### [facility] [address] [place], [address] Hemoglobin (Bld) [Mass/Vol] 10.7 g/dL Low 12.0-15.0 [facility] Comment on above: Performed By: #### L 100.0100, L500.2500 #### [facility] [address] [place], [address] IG% 1.100 High 0.0-0.9 [facility] Comment on above: Result Comment: IG% - Immature Granulocytes (promyelocytes, myelocytes and metamyelocytes) > 1% indicates that a LEFT SHIFT is Present. Performed By: #### L 100.0100, L500.2500 #### [facility] [address] [place], [address] Lymphocytes/100 WBC (Bld) 6.4 % Low 19-41 [facility] Comment on above: Performed By: #### L 100.0100, L500.2500 #### [facility] [address] [place], [address] MCH (RBC) [Entitic mass] 20.2 pg Low 27.0-32.0 [facility] Comment on above: Performed By: #### L 100.0100, L500.2500 #### [facility] [address] [place], [address] MCHC (RBC) [Mass/Vol] 26.7 g/dL Low 32-36 [facility] Comment on above: Performed By: #### L 100.0100, L500.2500 #### [facility] [address] [place], [address] MCV (RBC) [Entitic vol] 75.8 fL Low 81-99 [facility] Comment on above: Performed By: #### L 100.0100, L500.2500 #### [facility] [address] [place], [address] Monocytes/100 WBC (Bld) 1.7 % Normal 0-10 [facility] Comment on above: Performed By: #### L 100.0100, L500.2500 #### [facility] [address] [place], [address] Neutrophils/100 WBC (Bld) 90.6 % High 47-70 [facility] Comment on above: Performed By: #### L 100.0100, L500.2500 #### [facility] [address] [place], [address] Nucleated RBC (Bld) [#/Vol] 0.3 10*3/uL Normal 0-5 [facility] Comment on above: Performed By: #### L 100.0100, L500.2500 #### [facility] [address] [place], [address] Platelet mean volume (Bld) [Entitic vol] 9.8 fL Normal 6.2-12.0 [facility] Comment on above: Performed By: #### L 100.0100, L500.2500 #### [facility] [address] [place], [address] Platelets (Bld) [#/Vol] 236 10*3/uL Normal 150-450 [facility] Comment on above: Performed By: #### L 100.0100, L500.2500 #### [facility] [address] [place], [address] RBC (Bld) [#/Vol] 5.29 10*6/uL Normal 4.2-5.4 [facility] Comment on above: Performed By: #### L 100.0100, L500.2500 #### [facility] [address] [place], [address] RDW SD 48.8 fl High 35.1-43.9 [facility] Comment on above: Performed By: #### L 100.0100, L500.2500 #### [facility] [address] [place], [address] WBC (Bld) [#/Vol] 14.9 10*3/uL High 4.4-11.0 [facility] Comment on above: Performed By: #### L 100.0100, L500.2500 #### [facility] [address] [place], [address] Calculated total iron bindin g capacityOrdered By: Evans Carter on 09-04-2024 Total Iron Binding Capacity 428 ug/dL 250-450 [facility] Consultation - Intensiviston 09-04-2024 Consultation - Tinsmith Helper [facility] Medical Records Department [address] [place] [address] Consultation - Tinsmith Helper 09/04/24 0830 MR#: [id number] Acct: [id number] Name: TORRIE MARTINEZ Rep #: [id number] : 1990 34 From: Toro Holcmob DO PCP: OMAR Jones Status:ADM IN Location: ICU [id number] Assessment Plan Assessment/Plan (1) Acute on chronic [...] outpatient basis by Dr. Bere Holcomb of [facility] pulmonary medicine. At this time, [...] as tolerated. This note was generated with [employer] dictation software. It may contain incorrect words, [...] currently followed in the office of Dr. eBre Holcomb of pulmonary medicine at [facility] due to a history of [...] down to 8 L/min via nasal cannula. [facility] Medical History Pneumonia COPD (chronic obstructive [...] Ellipta) fl (more content not included)... Normal [facility] Echo Complete W/ Contraston 09-04-2024 Echo Complete W/ Contrast [facility] [address] [facility] [place] [address] Echo Complete W/ Contrast 09/04/24 0949 MR#: [id number] Acct: [id number] Name: TORRIE MARTINEZ Rep #: [id number] : 1990 34 From: Genaro Sargent MD [...] 09/04/24 105 Date Genaro Sargent MD CC: SPICE MILLER HAMMER MILLJeff Bermeo; Dr. Evans Carter MD Date Dictated: 09/04/24948 Date Transcribed: 09/04/241050 Cleaning Porter: Signed Normal [facility] Echocardiogram study reportO rdered By: Genaro Sargent on 09-04-2024 Study report [facility] [address] [place] [address] Echo Complete W/ Contrast 09/04/24948 MR#: [id number] Acct: [id number] Name: TORRIE MARTINEZ Rep #:[id number] : [...] Dictated: 09/04/24 0949 Date Transcribed: 09/04/24 1051 Cleaning Porter: Signed [facility] Work Phone: Electrocardiogram reportOrde red By: Genaro Sargent on 09-04-2024 EKG study [facility] Cardi[facility] Services [address] [place] [address] 12 Lead EKG 09/03/24 1433 MR#: [id number] Acct: [id number] Name: TORRIE MARTINEZ Rep #:[id number] : [...] ECG Confirmed by ROSETTA FUENTES, GENARO ([id number]), news videotape editor EVER GAONA ([id number]) on 51:32:03 PM Referred By: UG/TL Confirmed By: GENARO SARGENT MD 09/04/24 1332 Date _ Genaro Sargent MD CC: OMAR Bermeo; Dr. Evans Carter MD; Dr. Randy Bailey MD ~ Signed [facility] Work Phone: Ferritinon 09-04-2024 Ferritin [Mass/Vol] 25 ng/mL Normal 22-378 [facility] Comment on above: Performed By: #### L 9000.0810 #### [facility] [address] [place], [address] Hemoglobin (Reticulocytes) [ Entitic mass]Ordered By: Evans Carter on 09-04-2024 Reticulocyte Hemoglobin Equivalent 15.5 pg Low 30-35 [facility] Immature platelet percentage Ordered By: Evans Carter on 09-04-2024 Platelets reticulated/100 platelets Auto (Bld) 5.2 % 1.0-7.9 [facility] Comment on above: Low PLT + [...] 09-04-2024 Immature Reticulocyte Fraction 12.10 % 3.00-15.90 [facility] Iron (Unsp spec) [Mass/Mass] Ordered By: Evans Carter on 09-04-2024 Iron [Mass/Vol] 14 ug/dL Low 50-170 [facility] Iron measurement (mass/mass) Ordered By: Evans Carter on 09-04-2024 Iron (Unsp spec) [Mass/Mass] 14 ug/dL Low 50-170 [facility] Iron saturation [Mass fracti on]Ordered By: Evans Carter on 09-04-2024 Iron Saturation 3.0 % Low 13-59 [facility] Iron+Iron Binding Capacityon 09-04-2024 Iron [Mass/Vol] 14 ug/dL Low 50-170 [facility] Comment on above: Performed By: #### L 9000.0810 #### [facility] [address] [place], [address] IRON SATURATION 3.0 Low 13-59 [facility] Comment on above: Performed By: #### L 9000.0810 #### [facility] [address] [place], [address] TIBC 428 ug/dL Normal 250-450 [facility] Comment on above: Performed By: #### L 9000.0810 #### [facility] [address] [place], [address] UIBC 414 ug/dL Normal 228-428 [facility] Comment on above: Performed By: #### L 9000.0810 #### [facility] [address] [place], [address] No Panel InformationOrdered By: Evans Carter on 09-04-2024 Unsaturated Iron Binding Capacity 414 ug/dL 228-428 [facility] Platelets reticulated/100 pl atelets Auto (Bld)Ordered By: Evans Carter on 09-04-2024 Immature Platelet Fraction 5.2 % 1.0-7.9 [facility] Comment on above: Low PLT + [...] Not Detected RSV B Not Detected Normal [facility] Comment on above: Performed By: #### L 100.0100, L500.2500 #### [facility] [address] [place], [address] Respiratory pathogens DNA an d RNA panel GUNJAN+probe (Resp)Ordered By: Toro Holcomb on 09-04-2024 Respiratory Panel (PCR) [facility] Respiratory pathogens detect ion panel by molecular detection methodOrdered By: Toro Holcomb on 09-04-2024 Respiratory pathogens DNA and RNA panel GUNJAN+probe (Resp) [facility] Retic Panelon 09-04-2024 IM RET FRACTION 12.10 Normal 3.00-15.90 [facility] Comment on above: Performed By: #### L 9000.0810 #### [facility] [address] [place], [place], [address] IPF 5.2 Normal 1.0-7.9 [facility] Comment on above: Result Comment: Low [...] marrow. Performed By: #### L 9000.0810 #### [facility] [address] [place], [place], [address] RET-HE 15.5 pg Low 30-35 [facility] Comment on above: Performed By: #### L 9000.0810 #### [facility] [address] [place], [address] Retic Count 1.45 Normal 0.5-1.5 [facility] Comment on above: Performed By: #### L 9000.0810 #### [facility] [address] [facility] [place], [address] Reticulocyte hemoglobin equi valent (RET-He) measurementOrdered By: Evans Carter on 09-04-2024 Hemoglobin (Reticulocytes) [Entitic mass] 15.5 pg Low 30-35 [facility] Reticulocytes Auto (Bld) [#/ Vol]Ordered By: Evans Carter on 09-04-2024 Reticulocyte Count 1.45 % 0.5-1.5 [facility] Reticulocytes/100 RBC (Bld) 1.45 % 0.5-1.5 [facility] Serum or plasma ferritin mandie surement (mass/volume)Ordered By: Evans Carter on 09-04-2024 Ferritin [Mass/Vol] 25 ng/mL 22-378 [facility] Serum or plasma iron saturat ion measurement (mass fraction)Ordered By: Evans Carter on 09-04-2024 Iron saturation [Mass fraction] 3.0 % Low 13-59 [facility] Vitamin B12on 09-04-2024 Cobalamin (Vitamin B12) [Mass/Vol] 686 pg/mL Normal 180-914 [facility] Comment on above: Performed By: #### L 9000.0810 #### [facility] [address] [place], [address] Vitamin B12 ser/plasOrdered By: Evans Carter on 09-04-2024 Cobalamin (Vitamin B12) [Mass/Vol] 686 pg/mL 180-914 [facility] 12 Lead EKGon 09-03-2024 12 Lead EKG [facility] Cardi[facility] Services [address] [place] [address] 12 Lead EKG 09/03/24 1433 MR#: [id number] Acct: [id number] Name: TORRIE MARTINEZ Rep #: [id number] : 1990 34 From: Genaro Sargent MD [...] Abnormal ECG Confirmed by GENARO SARGENT MD ([id number]), news videotape editor EVER GAONA ([id number]) on 09/04/2024 1:32:03 PM Referred By: UG/TL Confirmed By: GENARO SARGENT MD 09/04/24 1332 Date Genaro Sargent MD CC: [employer]-C Louann Bermeo; Dr. Evans Carter MD; Dr. Randy Bailey MD Signed Normal [facility] Base excess Calc (BldV) [Mol es/Vol]Ordered By: Randy Bailey on 09-03-2024 Venous Blood Base Excess 13 mmol/L High -1.0-3.5 [facility] Bilirubin, totalOrdered By: Randy Bailey on 09-03-2024 Bilirubin [Mass/Vol] 0.24 mg/dL 0.00-1.30 [facility] Blood cultureOrdered By: Randy Bailey on 09-03-2024 Bacteria identified Cx Nom (Bld) No growth in 5 days. [facility] Bacteria identified Cx Nom (Bld) No growth in 5 days. [facility] CBC W/Diff, Automatedon 08-07 Absolute Lymph 1.63 X10 3/uL Normal 0.83-4.51 [facility] Comment on above: Performed By: #### L 9000.0810 #### [facility] [address] [place], [address] Absolute Neut 12.0 X10 3/uL High 2.0-7.7 [facility] Comment on above: Performed By: #### L 9000.0810 #### [facility] [address] [place], [address] Basophils/100 WBC (Bld) 0.2 % Normal 0-1 [facility] Comment on above: Performed By: #### L 9000.0810 #### [facility] [address] [place], [address] Eosinophils/100 WBC (Bld) 0.7 % Normal 0-5 [facility] Comment on above: Performed By: #### L 9000.0810 #### [facility] [address] [place], [address] Erythrocyte distribution width (RBC) [Ratio] 18.7 % High 11.6-14.6 [facility] Comment on above: Performed By: #### L 9000.0810 #### [facility] [address] [place], [address] Hematocrit (Bld) [Volume fraction] 44.0 % Normal 37-47 [facility] Comment on above: Performed By: #### L 9000.0810 #### [facility] [address] [place], [address] Hemoglobin (Bld) [Mass/Vol] 11.8 g/dL Low 12.0-15.0 [facility] Comment on above: Performed By: #### L 8999.0810 #### [facility] [address] [place], [address] IG% 1.200 High 0.0-0.9 [facility] Comment on above: Result Comment: IG% - Immature Granulocytes (promyelocytes, myelocytes and metamyelocytes) > 1% indicates that a LEFT SHIFT is Present. Performed By: #### L 900.0810 #### [facility] [place], [address] Lymphocytes/100 WBC (Bld) 10.9 % Low 19-41 [facility] Comment on above: Performed By: #### L 9000.0810 #### [facility] [place], [address] MCH (RBC) [Entitic mass] 20.2 pg Low 27.0-32.0 [facility] Comment on above: Performed By: #### L 900.0810 #### [facility] [address] [facility] [place], [address] MCHC (RBC) [Mass/Vol] 26.8 g/dL Low 32-36 [facility] Comment on above: Performed By: #### L 900.0810 #### [facility] [address] [facility] [place], [address] MCV (RBC) [Entitic vol] 75.5 fL Low 81-99 [facility] Comment on above: Performed By: #### L 900.0810 #### [facility] [address] [place], [address] Monocytes/100 WBC (Bld) 6.9 % Normal 0-10 [facility] Comment on above: Performed By: #### L 900.0810 #### [facility] [address] [place], [address] Neutrophils/100 WBC (Bld) 80.1 % High 47-70 [facility] Comment on above: Performed By: #### L 900.0810 #### [facility] [address] [place], [address] Nucleated RBC (Bld) [#/Vol] 0.5 10*3/uL Normal 0-5 [facility] Comment on above: Performed By: #### L 900.0810 #### [facility] [address] [place], [address] Platelet mean volume (Bld) [Entitic vol] 10.3 fL Normal 6.2-12.0 [facility] Comment on above: Performed By: #### L 900.0810 #### [facility] [address] [place], [address] Platelets (Bld) [#/Vol] 276 10*3/uL Normal 150-450 [facility] Comment on above: Performed By: #### L 900.0810 #### [facility] [address] [place], [address] RBC (Bld) [#/Vol] 5.83 10*6/uL High 4.2-5.4 [facility] Comment on above: Performed By: #### L 9000.0810 #### [facility] [address] [place], [address] RDW SD 49.2 fl High 35.1-43.9 [facility] Comment on above: Performed By: #### L 900.0810 #### [facility] [address] [place], [address] WBC (Bld) [#/Vol] 15.0 10*3/uL High 4.4-11.0 [facility] Comment on above: Performed By: #### L 9000.0810 #### [facility] [address] [place], [address] CO2 (BldV) [Moles/Vol]Ordere d By: Randy Bailey on 09-03-2024 CO2 [Moles/Vol] 42 mmol/L High 23-33 [facility] CO2 (BldV) [Partial pressure ]Ordered By: Randy Bailey on 09-03-2024 Bed Mix Venous Bld PCO2 at Pat Temp 74.7 mmHg High 41-51 [facility] Chest 1 View (Portable)on Chest 1 View (Portable) [facility] Services [address] [place] [address] Chest 1 View (Portable) MR#: [id number] Acct: [id number] Name: TORRIE MARTINEZ Rep #: [id number] : 1990 F 34 From: Joel Guevara MD PCP: Louann Bermeo, [employer]-C Status: [facility] ER Study: Chest 1 View (Portable) Date of Exam: 09/03/24 Exam# [id number] Ordering Dr: Randy Bailey MD PROCEDURE: CHEST [...] 2. Additional description as above. Reading Location: [facility] CC: SPICE MILLER HAMMER MILLJeff Bermeo; Dr. Randy Bailey MD Cleaning Porter: Signed Normal [facility] Comprehensive Metabolic Prof ilon 09-03-2024 Albumin [Mass/Vol] 4.0 g/dL Normal 3.5-5.0 [facility] Comment on above: Performed By: #### L 100.0100, L500.2500 #### [facility] [address] [place], [address] Albumin/Globulin [Mass ratio] 1.9 {ratio} Normal 0.9-2.4 [facility] Comment on above: Performed By: #### L 100.0100, L500.2500 #### [facility] [address] [place], [address] ALK PHOS 98 U/L Normal 35-104 [facility] Comment on above: Performed By: #### L 100.0100, L500.2500 #### [facility] [address] [place], [address] ALT [Catalytic activity/Vol] 29 U/L Normal <=34 [facility] Comment on above: Performed By: #### L 100.0100, L500.2500 #### [facility] [address] [place], [address] AST [Catalytic activity/Vol] 33 U/L High <=31 [facility] Comment on above: Performed By: #### L 100.0100, L500.2500 #### [facility] [address] [place], [address] Bilirubin [Mass/Vol] 0.24 mg/dL Normal 0.00-1.30 [facility] Comment on above: Performed By: #### L 100.0100, L500.2500 #### [facility] [address] [place], [address] BUN/CRE 15.3 RATIO Normal 10-20 [facility] Comment on above: Performed By: #### L 100.0100, L500.2500 #### [facility] [address] [place], [address] Calcium [Mass/Vol] 8.7 mg/dL Normal 7.6-11.0 [facility] Comment on above: Performed By: #### L 100.0100, L500.2500 #### [facility] [address] [place], [address] Chloride [Moles/Vol] 99 mmol/L Normal 98-108 [facility] Comment on above: Performed By: #### L 100.0100, L500.2500 #### [facility] [address] [place], [address] CO2 [Moles/Vol] 35.6 mmol/L High 21.0-32.0 [facility] Comment on above: Performed By: #### L 100.0100, L500.2500 #### [facility] [address] [place], [address] Creatinine [Mass/Vol] 0.72 mg/dL Normal 0.70-1.20 [facility] Comment on above: Performed By: #### L 100.0100, L500.2500 #### [facility] [address] [place], [address] ECRCL 220.04 ml/min Normal 50-250 [facility] Comment on above: Performed By: #### L 100.0100, L500.2500 #### [facility] [address] [place], [address] GAP 8 Normal 5-15 [facility] Comment on above: Performed By: #### L 100.0100, L500.2500 #### [facility] [address] [place], [address] GFR/1.73 sq M.predicted among non-blacks MDRD (S/P/Bld) [Vol rate/Area] 114 mL/min/{1.73_m2} Normal >60 [facility] Comment on above: Result Comment: mL/m in/1.73m2 CKD-EPI Creatinine Equation (2020) Performed By: #### L 100.0100, L500.2500 #### [facility] [address] [place], [address] Globulin (S) [Mass/Vol] 2.1 g/dL Low 2.2-4.2 [facility] Comment on above: Performed By: #### L 100.0100, L500.2500 #### [facility] [address] [place], [address] Glucose [Mass/Vol] 102 mg/dL High 70-99 [facility] Comment on above: Performed By: #### L 100.0100, L500.2500 #### [facility] [address] [place], [address] Potassium [Moles/Vol] 4.4 mmol/L Normal 3.3-5.1 [facility] Comment on above: Performed By: #### L 100.0100, L500.2500 #### [facility] [address] [place], [address] Sodium [Moles/Vol] 142 mmol/L Normal 133-145 [facility] Comment on above: Performed By: #### L 100.0100, L500.2500 #### [facility] [address] [place], [address] T PROT 6.1 g/dL Normal 5.9-8.4 [facility] Comment on above: Performed By: #### L 100.0100, L500.2500 #### [facility] [address] [place], [address] Urea nitrogen [Mass/Vol] 11 mg/dL Normal 4-19 [facility] Comment on above: Performed By: #### L 100.0100, L500.2500 #### [facility] [address] [place], [address] Determination of fraction of inspired oxygenOrdered By: Randy Bailey on 09-03-2024 Blood Gas Oxygen Percent 70.0 [facility] Emergency Department Summary on 09-03-2024 Emergency Department Summary [facility] Medical Records Department [address] [place] [address] Emergency Department Summary 09/03/24 MR#: [id number] Acct: [id number] Name: TORRIE MARTINEZ Rep #: [id number] : 1990 34 From: Randy Bailey MD PCP: Louann Bermeo [employer] Status:REG ER Location: ED HPI History of Present Illness Chief Complaint: Shortness of Breath Detail of Chief Complaint: Shortness of breath and upper respiratory symptoms Informant: patient, family and EMS (Pulse ox was 60% when patient was supine.) Onset/Context/Timing Onset: Days Context: Gradual Onset Timing: Continuous Quality: Dyspnea, [place] exertion, orthopnea, infectious symptoms Location: Respiratory Current [...] is seen by Dr. Holcomb at the [facility]. She had recent pulmonary function test done. [...] similar symptoms: Yes Recent Illness/Hospitalizat ion: Yes ([facility]. She states she was on a Lasix drip.) [facility] Medical History Pneumonia COPD (chronic obstructive pulmonary [...] Psychiatric Psychiat (more content not included)... Normal [facility] H AND P Exam - Hospitaliston 09-03-2024 H&P Exam - Hospitalist [facility] Medical Records Department [address] [place] [address] H P Exam - Hospitalist 09/03/24 1800 MR#: [id number] Acct: [id number] Name: TORRIE MARTINEZ Rep #: [id number] : 1990 34 From: Jesse Lobo MD PCP: Louann Bermeo, [employer] Status:ADM IN Location: ICU [id number] HPI - General General Date of Admission: [...] her leukocytosis and fever consistent with pneumonia. [facility] Medical History Pneumonia COPD (chronic obstructive [...] of Inspired (more content not included)... Normal [facility] Influenza virus A and B and SARS-CoV-2 (COVID-19) and Respiratory syncytial virus RNAOrdered By: Randy Bailey on 09-03-2024 SARS-CoV-2 (COVID-19) RNA GUNJAN+probe Ql (Unsp spec) [facility] - Chemistry and C hemistry - challengeOrdered By: Randy Bailey on 09-03-2024 AST [Catalytic activity/Vol] 33 U/L High <32 [facility] Lactic Acidon 09-03-2024 Lactate [Moles/Vol] mmol/L Normal 0.0-2.0 [facility] Comment on above: Order Comment: Y Performed By: #### L 9000.0810 #### [facility] [address] [place], [place], [address] Lactic acid measurementOrder ed By: Randy Bailey on 09-03-2024 Lactate [Moles/Vol] mmol/L 0.0-2.0 [facility] M100.678on 09-03-2024 M100.678 Pending SARS-CoV-2 (COVID 19) Negative INFLUENZA A Negative INFLUENZA B Negative RSV PCR Negative Normal [facility] Comment on above: Performed By: #### L 100.0100, L500.2500 #### [facility] [address] [place], [place], [address] No Panel InformationOrdered By: Randy Bailey on 09-03-2024 Bld Gas Crit Called To/Read Back By Yes [facility] Blood Gas Notified Time 17:24:21 [facility] Blood Gas Notified Whom [facility] Blood Gas Sample Site Not entered [facility] Blood Gas Specimen Type SILVINO [facility] Oxygen Delivery Device BiPAP [facility] Oxygen (BldV) [Partial press ure]Ordered By: Randy Bailey on 09-03-2024 Venous Blood Partial Pressure O2 71 mmHg High 25-40 [facility] Serum globulin measurementOr dered By: Randy Bailey on 09-03-2024 Globulin (S) [Mass/Vol] 2.1 g/dL Low 2.2-4.2 [facility] Serum or plasma alanine díaz otransferase (ALT) measurementOrdered By: Randy Bailey on 09-03-2024 ALT [Catalytic activity/Vol] 29 U/L <35 [facility] Serum or plasma albumin maryjane urement (mass/volume)Ordered By: Randy Bailey on 09-03-2024 Albumin [Mass/Vol] 4.0 g/dL 3.5-5.0 [facility] Serum or plasma albumin/glob ulin mass ratioOrdered By: [facility] on 09-03-2024 Albumin/Globulin [Mass ratio] 1.9 {ratio} 0.9-2.4 [facility] Serum or plasma alkaline kelly sphatase measurementOrdered By: [facility] on 09-03-2024 ALP [Catalytic activity/Vol] 98 U/L 35-104 [facility] Total proteinOrdered By: [facility] on 09-03-2024 Protein [Mass/Vol] 6.1 g/dL 5.9-8.4 [facility] Venous Blood Gason Blood Gas Type SILVINO Normal [facility] Comment on above: Performed By: #### L 9000.0810 #### [facility] [address] [place], [address] CO2 [Moles/Vol] 42 mmol/L High 23-33 [facility] Comment on above: Performed By: #### L 9000.0810 #### [facility] [address] [place], [address] FI02 70.0 Normal [facility] Comment on above: Performed By: #### L 9000.0810 #### [facility] [address] [place], [address] HCO3 (Bld) [Moles/Vol] 39 mmol/L High 22-26 [facility] Comment on above: Performed By: #### L 9000.0810 #### [facility] [address] [place], [address] O2 Delivery Dev BiPAP Normal [facility] Comment on above: Performed By: #### L 9000.0810 #### [facility] [address] [place], [address] Read Back By Yes Normal [facility] Comment on above: Performed By: #### L 9000.0810 #### [facility] [address] [place], [address] Results To ug Normal [facility] Comment on above: Performed By: #### L 9000.0810 #### [facility] [address] [place], [address] SITE Not entered [facility] Comment on above: Performed By: #### L 9000.0810 #### [facility] [address] [place], [address] Time Given 17:24:21 [facility] Comment on above: Performed By: #### L 9000.0810 #### [facility] [address] [place], [address] VBG BE 13 mmol/L High -1.0-3.5 [facility] Comment on above: Performed By: #### L 9000.0810 #### [facility] [address] [place], [address] VBG pCO2 74.7 mmHg Invalid Interpretation Code 41-51 [facility] Comment on above: Performed By: #### L 9000.0810 #### [facility] [address] [place], [address] VBG pH 7.33 Normal 7.32-7.42 [facility] Comment on above: Performed By: #### L 9000.0810 #### [facility] [address] [place], [address] VBG PO2 71 mmHg High 25-40 [facility] Comment on above: Performed By: #### L 9000.0810 #### [facility] [address] [place], [address] VBG SO2 92 High 50-70 [facility] Comment on above: Performed By: #### L 9000.0810 #### [facility] [address] [place], [address] Blood Gas Type SILVINO [facility] Comment on above: Performed By: #### L 9000.0810 #### [facility] [address] [place], [address] CO2 [Moles/Vol] 43 mmol/L High 23-33 [facility] Comment on above: Performed By: #### L 9000.0810 #### [facility] [address] [place], [address] FI02 13.0 [facility] Comment on above: Performed By: #### L 9000.0810 #### [facility] [address] [place], [address] HCO3 (Bld) [Moles/Vol] 41 mmol/L High 22-26 [facility] Comment on above: Performed By: #### L 9000.0810 #### [facility] [address] [place], [address] O2 Delivery Dev Cannula [facility] Comment on above: Performed By: #### L 9000.0810 #### [facility] [address] [place], [address] Read Back By Yes [facility] Comment on above: Performed By: #### L 9000.0810 #### [facility] [address] [place], [address] Results To [facility] Comment on above: Performed By: #### L 9000.0810 #### [facility] [address] [place], [address] SITE Not entered [facility] Comment on above: Performed By: #### L 9000.0810 #### [facility] [address] [place], [address] Time Given 15:40:35 Normal [facility] Comment on above: Performed By: #### L 9000.0810 #### [facility] [address] [place], [address] VBG BE 14 mmol/L High -1.0-3.5 [facility] Comment on above: Performed By: #### L 9000.0810 #### [facility] [address] [place], [address] VBG pCO2 83.3 mmHg Invalid Interpretation Code 41-51 [facility] Comment on above: Performed By: #### L 9000.0810 #### [facility] [address] [place], [address] VBG pH 7.30 Low 7.32-7.42 [facility] Comment on above: Performed By: #### L 9000.0810 #### [facility] [address] [place], [address] VBG PO2 30 mmHg Normal 25-40 [facility] Comment on above: Performed By: #### L 9000.0810 #### [facility] [address] [place], [address] VBG SO2 47 Low 50-70 [facility] Comment on above: Performed By: #### L 9000.0810 #### [facility] [address] [place], [address] Venous Duplex US, Unilateral on 09-03-2024 Venous Duplex US, Unilateral [facility] [address] [place] [address] Venous Duplex US, Unilateral 09/03/24 1538 MR#: [id number] Acct: [id number] Name: TORRIE MARTINEZ #: [id number] : 1990 34 From: Neo Greenberg MD [...] 09/03/24 172 Date Neo Greenberg MD CC: [employer] Louann Bermeo; Dr. Randy Bailey MD Date Dictated: 09/03/24 1538 Date Transcribed: 04/29/25 1722 Cleaning Porter: Signed Normal [facility] Venous blood base excess mandie surementOrdered By: Randy Bailey on 09-03-2024 Base excess Calc (BldV) [Moles/Vol] 13 mmol/L High -1.0-3.5 [facility] Venous blood bicarbonate mandie surementOrdered By: Randy Bailey on 09-03-2024 HCO3 (Bld) [Moles/Vol] 39 mmol/L High 22-26 [facility] Venous blood oxygen saturati on measurementOrdered By: Randy Bailey on 09-03-2024 Oxygen saturation in Blood 92 % High 50-70 [facility] Venous blood pH measurementO rdered By: Randy Bailey on 09-03-2024 pH (BldV) 7.33 [pH] 7.32-7.42 [facility] Venous blood partial pressur e of carbon dioxide measurementOrdered By: Randy Bailey on 09-03-2024 CO2 (BldV) [Partial pressure] 74.7 mm[Hg] High 41-51 [facility] Venous blood partial pressur e of oxygen measurementOrdered By: Randy Bailey on 09-03-2024 Oxygen (BldV) [Partial pressure] 71 mm[Hg] High 25-40 [facility] Venous duplex ultrasound rep ortOrdered By: Neo Greenberg on 09-03-2024 US Vein [facility] [address] [place] [address] Venous Duplex US, Unilateral 09/03/24 1538 MR#: [id number] Acct: [id number] Name: TORRIE MARTINEZ Rep #:[id number] : [...] 1722 Date _ Neo Greenberg MD CC: [employer] Louann Bermeo; Dr. Randy Bailey MD ~ Date Dictated: 09/03/24 1538 Date Transcribed: 09/03/24 172 Cleaning Porter: Signed [facility] Work Phone: pH (BldV)Ordered By: Randy meng on 09-03-2024 Venous Blood pH 7.33 7.32-7.42 [facility] CNPNon 09-02-2024 CNPN Normal [facility] No Panel Informationon 08-28 DLCO (ml/min/mmHg) 19.74 ml/min/mmHg [facility] DLCO LLN (ml/min/mmHg) 21.37 ml/min/mmHg [facility] DLCO PREDICTED (ml/min/mmHg) 27.54 ml/min/mmHg [facility] DLCO ULN (ml/min/mmHg) 33.71 ml/min/mmHg C [facility] DLCO/VA (ml/min/mmHg/L) 0.06 ml/m in/mmHg /L [facility] DLCO/VA PREDICTED (ml/min/mmHg/L) 0.05 ml/min/mmHg /L [facility] DLCO/VAcor (ml/min/mmHg/L) 0.06 ml/min/mmHg /L [facility] DLCOcor (ml/min/mmHg) 19.47 ml/min/mmHg Cl [facility] DLCOcor PREDICTED (ml/min/mmHg) 27.54 ml/min/mmHg [facility] ERV BOX (L) 0.26 L [facility] ERV PREDICTED (L) 1.54 L/S [facility] FEF25% POST (L/S) 0.93 L/S [facility] FEF25% PRE (L/S) 0.6 L/S [facility] OWE80-40% LLN (L/S) 2.04 L/S [facility] EIE46-10% POST (L/S) 0.67 L/S [facility] QFF82-27% PRE (L/S) 0.23 L/S [facility] NMO45-24% PREDICTED (L/S) 3.56 L/S [facility] FEF75% LLN (L/S) 0.62 L/S [facility] FEF75% POST (L/S) 0.43 L/S [facility] FEF75% PRE (L/S0 0.12 L/S [facility] FEF75% PREDICTED (L/S) 1.35 L/S [facility] FEF75% ULN (L/S) 2.57 L/S [facility] FET POST (S) 14.59 S [facility] FET PRE (S) 12.91 S [facility] FEV1 LLN (L) 2.94 L [facility] FEV1 PRE (L) 0.72 L [facility] FEV1 PREDICTED (L) 3.83 L [facility] FEV1 ULN (L) 4.69 L [facility] FEV1/FVC LLN (%) 73 % [facility] FEV1/FVC POST (%) 40 % [facility] FEV1/FVC PRE (%) 40 % [facility] FEV1/FVC PREDICTED (%) 83 % [facility] FEV1_POST (L) 1.01 L [facility] FRC Gas (L) 1.35 L [facility] FVC LLN (L) 3.57 L [facility] FVC POST (L) 2.54 L [facility] FVC PRE (L) 1.79 L [facility] FVC PREDICTED (L) 4.63 L [facility] FVC ULN (L) 5.72 L [facility] IC BOX (L) 1.59 L [facility] IC PREDICTED (L) 3.09 L/S [facility] PEF LLN (L/S) 5.55 L/S [facility] PEF POST (L/S) 2.4 L/S [facility] PEF PRE (L/S) 1.72 L/S [facility] PEF ULN (L/S) 10.48 L/S [facility] RV Gas (L) 1.11 L [facility] RV Gas PREDICTED (L) 1.78 L [facility] RV/TLC Gas (%) 38 % [facility] RV/TLC Gas PREDICTED (%) 28 L [facility] SVC LLN (L) 3.57 L/S [facility] SVC PREDICTED (L) 4.63 L/S [facility] SVC ULN (L) 5.72 L/S [facility] TLC Gas (L) 2.95 L [facility] TLC Gas PREDICTED (L) 6.[address] [facility] VA (L) 3.09 L [facility] VA PREDICTED (L) 6.21 L [facility] VC (L) BOX 1.85 L [facility] [address] [place] [address] Test Date: 2024-08-27 Pat Name: TORRIE MARTINEZ Department: Room: Gender: Female Manager Neonatal: : 1990 Requested By: Order Number: [id number] Reading MD: Bere Holcomb MD Interpretive Statements [...] 05:46:09 EDT by Bere Holcomb MD ID: [id number] Name: JASTORRIE Gutierrez Race: Black or Ht: [...] 90-100 0.38 145 FIVC 0.49 2.02 314 RCD97-22 0.23 2.04 3.56 5.42 6 -4.65 0.67 [...] (more content not included)... PULMONARY FUNCTION LAB [facility] CNOVon 08-27-2024 CNOV Normal [facility] LUNG DIFFUSION CAPACITY (LIDIA O)on 08-27-2024 LUNG DIFFUSION CAPACITY (DLCO) Normal [facility] LUNG VOLUMESon 08-27-2024 LUNG VOLUMES Normal [facility] No Panel Informationon 08-27 Torrie Syed [...] DATE: August 27, 2024 TIME: 9:44 AM [facility] SPIROMETRY WITH DILATOR IF O BSTRUCTEDon 08-27-2024 SPIROMETRY WITH DILATOR IF OBSTRUCTED Normal [facility] CBC W Auto Differential pane l (Bld)on 07-18-2024 Basophils (Bld) [#/Vol] 10*3/uL Normal <0.[address] [facility] Comment on above: Order Comment: Michele ash Type: BLOOD SPECIMENOrdering Facility: [facility] Address: [address] [place] [address] Performed By: #### 5 7021-8 ####[facility] [id number] [place] [address] [place] Basophils/100 WBC (Bld) 0.3 % Normal [facility] Comment on above: Order Comment: Michele ash Type: BLOOD SPECIMENOrdering Facility: [facility] Address: [address] [place] [address] Performed By: #### 5 7021-8 ####[facility] [id number] [place] [address] [place] Differential cell count method Nom (Bld) Auto Normal [facility] Comment on above: Order Comment: Speci men Type: BLOOD SPECIMENOrdering Facility: [facility] Address: [address] [place] [address] Performed By: #### 5 7021-8 ####[facility] [id number] [address], [place] [address] [place] Eosinophils (Bld) [#/Vol] 0.26 10*3/uL Normal <0.46 [facility] Comment on above: Order Comment: Speci men Type: BLOOD SPECIMENOrdering Facility: [facility] Address: [address] [place] [address] Performed By: #### 5 7021-8 ####[facility] [id number] [place] [address] [place] Eosinophils/100 WBC (Bld) 3.6 % Normal [facility] Comment on above: Order Comment: Speci men Type: BLOOD SPECIMENOrdering Facility: [facility] Address: [address] [place] [address] Performed By: #### 5 7021-8 ####[facility] [id number] [address], [place] [address] [place] Erythrocyte distribution width (RBC) [Ratio] 18.1 % High 11.5-15.0 [facility] Comment on above: Order Comment: Speci men Type: BLOOD SPECIMENOrdering Facility: [facility] Address: [address] [place] [address] Performed By: #### 5 7021-8 ####[facility] [id number] [place] [address] [place] Hematocrit (Bld) [Volume fraction] 43.8 % Normal 36.0-46.0 [facility] Comment on above: Order Comment: Speci men Type: BLOOD SPECIMENOrdering Facility: [facility] Address: [address] [place] [address] Performed By: #### 5 7021-8 ####[facility] [id number] [place] [address] [place] Hemoglobin (Bld) [Mass/Vol] 11.8 g/dL Normal 11.5-15.5 [facility] Comment on above: Order Comment: Speci men Type: BLOOD SPECIMENOrdering Facility: [facility] Address: [address] [place] [address] Performed By: #### 5 7021-8 ####[facility] [id number] [place] [address] [place] Immature granulocytes (Bld) [#/Vol] 0.04 10*3/uL Normal <0.10 [facility] Comment on above: Order Comment: Speci men Type: BLOOD SPECIMENOrdering Facility: [facility] Address: [address] [place] [address] Performed By: #### 5 7021-8 ####[facility] [id number] [place] [address] [place] Immature granulocytes/100 WBC (Bld) 0.6 % Normal [facility] Comment on above: Order Comment: Speci men Type: BLOOD SPECIMENOrdering Facility: [facility] Address: [address] [place] [address] Performed By: #### 5 7021-8 ####[facility] [id number] [place] [id number] [place] Lymphocytes (Bld) [#/Vol] 2.06 10*3/uL Normal 1.00-4.00 [facility] Comment on above: Order Comment: Speci men Type: BLOOD SPECIMENOrdering Facility: [facility] Address: [address] [place] [address] Performed By: #### 5 7021-8 ####[facility] [id number] [place] [address] [place] Lymphocytes/100 WBC (Bld) 28.6 % Normal [facility] Comment on above: Order Comment: Speci men Type: BLOOD SPECIMENOrdering Facility: [facility] Address: [address] [place] [address] Performed By: #### 5 7021-8 ####[facility] [id number] [place] [address] [place] MCH (RBC) [Entitic mass] 20.6 pg Low 26.0-34.0 [facility] Comment on above: Order Comment: Speci men Type: BLOOD SPECIMENOrdering Facility: [facility] Address: [address] [place] [address] Performed By: #### 5 7021-8 ####[facility] [id number] [place] [address] [place] MCHC (RBC) [Mass/Vol] 26.9 g/dL Low 30.5-36.0 [facility] Comment on above: Order Comment: Speci men Type: BLOOD SPECIMENOrdering Facility: [facility] Address: [address] [place] [address] Performed By: #### 5 7021-8 ####[facility] [id number] [place] [address] [place] MCV (RBC) [Entitic vol] 76.6 fL Low 80.0-100.[address] [facility] Comment on above: Order Comment: Speci men Type: BLOOD SPECIMENOrdering Facility: [facility] Address: [address] [place] [address] Performed By: #### 5 7021-8 ####[facility] [id number] [place] [address] [place] Monocytes (Bld) [#/Vol] 0.55 10*3/uL Normal <0.87 [facility] Comment on above: Order Comment: Speci men Type: BLOOD SPECIMENOrdering Facility: [facility] Address: [address] [place] [address] Performed By: #### 5 7021-8 ####[facility] [id number] [place] [id number] [place] Monocytes/100 WBC (Bld) 7.6 % Normal [facility] Comment on above: Order Comment: Speci men Type: BLOOD SPECIMENOrdering Facility: [facility] Address: [address] [place] [address] Performed By: #### 5 7021-8 ####[facility] [id number] [place] [address] [place] Neutrophils (Bld) [#/Vol] 4.27 10*3/uL Normal 1.45-7.50 [facility] Comment on above: Order Comment: Speci men Type: BLOOD SPECIMENOrdering Facility: [facility] Address: [address] [place] [address] Performed By: #### 5 7021-8 ####[facility] [id number] [place] [address] [place] Neutrophils/100 WBC (Bld) 59.3 % Normal [facility] Comment on above: Order Comment: Speci men Type: BLOOD SPECIMENOrdering Facility: [facility] Address: [address] [place] [address] Performed By: #### 5 7021-8 ####[facility] [id number] [place] [id number] [place] Nucleated RBC (Bld) [#/Vol] 10*3/uL Normal <0.01 [facility] Comment on above: Order Comment: Speci men Type: BLOOD SPECIMENOrdering Facility: [facility] Address: [address] [place] [address] Performed By: #### 5 7021-8 ####[facility] LABCLIA [id number] [address] [place] [address] [place] Nucleated RBC/100 WBC (Bld) [Ratio] 0.0 /100 WBC Normal [facility] Comment on above: Order Comment: Speci men Type: BLOOD SPECIMENOrdering Facility: [facility] Address: [address] [place] [address] Performed By: #### 5 7021-8 ####[facility] [id number] [address], [place] [address] [place] Platelet mean volume (Bld) [Entitic vol] 10.1 fL Normal 9.0-12.7 [facility] Comment on above: Order Comment: Speci men Type: BLOOD SPECIMENOrdering Facility: [facility] Address: [address] [place] [address] Performed By: #### 5 7021-8 ####[facility] [id number] [place] [address] [place] Platelets (Bld) [#/Vol] 300 10*3/uL Normal 150-400 [facility] Comment on above: Order Comment: Speci men Type: BLOOD SPECIMENOrdering Facility: [facility] Address: [address] [place] [address] Performed By: #### 5 7021-8 ####[facility] [id number] [place] [address] [place] RBC (Bld) [#/Vol] 5.72 10*6/uL High 3.90-5.20 [facility] Comment on above: Order Comment: Speci men Type: BLOOD SPECIMENOrdering Facility: [facility] Address: [address] [place] [address] Performed By: #### 5 7021-8 ####[facility] [id number] [address], [facility]95 [place] WBC (Bld) [#/Vol] 7.20 10*3/uL Normal 3.70-11.00 [facility] Comment on above: Order Comment: Speci men Type: BLOOD SPECIMENOrdering Facility: [facility] Address: [address] [place] [address] Performed By: #### 5 7021-8 ####[facility]CLIA [id number] [place] [address] [place] CNOVon 07-18-2024 CNOV Normal [facility] CNPNon 07-18-2024 CNPN Normal [facility] Comprehensive metabolic 2000 panelon 07-18-2024 Albumin [Mass/Vol] 4.1 g/dL Normal 3.9-4.9 [facility] Comment on above: Order Comment: Speci men Type: BLOOD SPECIMENOrdering Facility: [facility] Address: [address] [place] [address] Performed By: #### 2 4323-8, 72049-0, LIPNF, 2275-4 ####[facility]CLIA [id number] [place] [address] [place] ALP [Catalytic activity/Vol] 85 U/L Normal 34-123 [facility] Comment on above: Order Comment: Speci men Type: BLOOD SPECIMENOrdering Facility: [facility] Address: [address] [place] [address] Performed By: #### 2 4323-8, 20106-2, LIPNF, 6-4 ####[facility]CLIA [id number] [place] [id number] [place] ALT [Catalytic activity/Vol] 16 U/L Normal 7-38 [facility] Comment on above: Order Comment: Speci men Type: BLOOD SPECIMENOrdering Facility: [facility] Address: [address] [place] [address] Performed By: #### 2 4323-8, 50620-4, LIPNF, 2276-4 ####[facility]CL[facility] [id number] [place] [id number] [place] Anion gap [Moles/Vol] 10 mmol/L Normal 8-15 [facility] Comment on above: Order Comment: Speci men Type: BLOOD SPECIMENOrdering Facility: [facility] Address: [address] [place] [address] Performed By: #### 2 4323-8, 83798-1, LIPNF, 6-4 ####[facility]CLIA [id number] [place] [id number] [place] AST [Catalytic activity/Vol] 18 U/L Normal 13-35 [facility] Comment on above: Order Comment: Speci men Type: BLOOD SPECIMENOrdering Facility: [facility] Address: [address] [place] [address] Performed By: #### 2 4323-8, 61369-3, LIPNF, 2275-4 ####[facility] [id number] [place] [address] [place] Bilirubin [Mass/Vol] 0.2 mg/dL Normal 0.2-1.3 [facility] Comment on above: Order Comment: Speci men Type: BLOOD SPECIMENOrdering Facility: [facility] Address: [address] [place] [address] Performed By: #### 2 4323-8, 31932-4, LIPNF, 2275-4 ####[facility]CLIA [id number] [place] [id number] [place] Calcium [Mass/Vol] 9.0 mg/dL Normal 8.5-10.2 [facility] Comment on above: Order Comment: Speci men Type: BLOOD SPECIMENOrdering Facility: [facility] Address: [address] [place] [address] Performed By: #### 2 4323-8, 39787-2, LIPNF, 6-4 ####[facility]CLIA [id number] [place] [address] [place] Chloride [Moles/Vol] 102 mmol/L Normal 98-107 [facility] Comment on above: Order Comment: Speci men Type: BLOOD SPECIMENOrdering Facility: [facility] Address: [address] [place] [address] Performed By: #### 2 4323-8, 45605-6, LIPNF, 6-4 ####[facility] LABCLIA [id number] [place] [address] [place] CO2 [Moles/Vol] 31 mmol/L High 22-30 [facility] Comment on above: Order Comment: Speci men Type: BLOOD SPECIMENOrdering Facility: [facility] Address: [address] [place] [address] Performed By: #### 2 4323-8, 45542-8, LIPNF, 2275-4 ####[facility]CL[facility] [id number] [place] [address] [place] Creatinine [Mass/Vol] 0.73 mg/dL Normal 0.58-0.96 [facility] Comment on above: Order Comment: Speci men Type: BLOOD SPECIMENOrdering Facility: [facility] Address: [address] [place] [address] Performed By: #### 2 4323-8, 23333-0, LIPNF, 2275-4 ####[facility]CLIA [id number] [place] [address] [place] Creatinine and Glomerular filtration rate.predicted panel (S/P/Bld) 112 mL/min/1.73m??? Normal >=60 [facility] Comment on above: Order Comment: Speci men Type: BLOOD SPECIMENOrdering Facility: [facility] Address: [address] [place] [address] Result Comment: Vi mated Glomerular Filtration Rate [...] actual GFR. Performed By: #### 2 4323-8, 74994-5, LIPNF, 2275-4 ####[facility]CL[facility] [id number] [facility] [address] [address] [place] Glucose [Mass/Vol] 86 mg/dL Normal 74-99 [facility] Comment on above: Order Comment: Michele ash Type: BLOOD SPECIMENOrdering Facility: [facility] Address: [address] [place] [address] Result Comment: The [place] Diabetes Association (ADA) provides guidance for cutoff [...] Standards of Medical Care in Diabetes 2016, [place] Diabetes Association. Diabetes Care. 2016.39(Suppl 1). Performed By: #### 2 4323-8, 69956-4, LIPNF, 2275-4 ####[facility] [id number] [facility] [address] [address] [place] Potassium [Moles/Vol] 4.8 mmol/L Normal 3.7-5.1 [facility] Comment on above: Order Comment: Michele ash Type: BLOOD SPECIMENOrdering Facility: [facility] Address: [address] [place] [address] Performed By: #### 2 4323-8, 41549-2, LIPNF, 2275-4 ####[facility] LABCLIA [id number] [place] [address] [place] Protein [Mass/Vol] 5.9 g/dL Low 6.3-8.0 [facility] Comment on above: Order Comment: Speci men Type: BLOOD SPECIMENOrdering Facility: [facility] Address: [address] [place] [address] Performed By: #### 2 4323-8, 68442-0, LIPNF, 2276-4 ####[facility]CLIA [id number] [place] [address] [place] Sodium [Moles/Vol] 143 mmol/L Normal 136-144 [facility] Comment on above: Order Comment: Speci men Type: BLOOD SPECIMENOrdering Facility: [facility] Address: [address] [place] [address] Performed By: #### 2 4323-8, 97371-0, LIPNF, 2276-4 ####[facility]CLIA [id number] [place] [address] [place] Urea nitrogen [Mass/Vol] 12 mg/dL Normal 7-21 [facility] Comment on above: Order Comment: Speci men Type: BLOOD SPECIMENOrdering Facility: [facility] Address: [address] [place] [address] Performed By: #### 2 4323-8, 80214-8, LIPNF, 2276-4 ####[facility]CL[facility] [id number] [place] [address] [place] Ferritin SerPl-mCncon 2024 Ferritin [Mass/Vol] 16.5 ng/mL Normal 14.7-205.1 [facility] Comment on above: Order Comment: Speci men Type: BLOOD SPECIMENOrdering Facility: [facility] Address: [address] [place] [address] Performed By: #### 2 4323-8, 28458-4, LIPNF, 2276-4 ####[facility] LABCLIA [id number] [place] [id number] [place] HbA1c (Bld)on 07-18-2024 Average glucose Estimated from glycated hemoglobin (Bld) [Mass/Vol] 117 mg/dL Normal [facility] Comment on above: Order Comment: Michele ash Type: BLOOD SPECIMENOrdering Facility: [facility] Address: [address] [place] [address] Result Comment: eAG: (Estimated average glucose) is a calculated value from HgbA1c and is field representative/health education of the average blood glucose level in the last 2-3 month period. Performed By: #### 5 5454-3 ####[facility] LABCLIA [id number] [place] [address] [place] HbA1c (Bld) [Mass fraction] 5.7 % High 4.3-5.6 [facility] Comment on above: Order Comment: Michele ash Type: BLOOD SPECIMENOrdering Facility: [facility] Address: [address] [place] [address] Result Comment: Amer [place] Diabetes Association guidelines indicate that patients with HgbA1c in the range 5.7-6.4% are at increased risk for development of diabetes, and intervention by lifestyle modification may be beneficial. HgbA1c greater or equal to 6.5% is considered diagnostic of diabetes. Performed By: #### 5 5454-3 ####[facility] LABCLIA [id number] [place] [address] [place] Iron and Iron binding capaci ty panelon 07-18-2024 Iron [Mass/Vol] 23 ug/dL Low 41-186 [facility] Comment on above: Order Comment: Michele ash Type: BLOOD SPECIMENOrdering Facility: [facility] Address: [address] [place] [address] Performed By: #### 2 4323-8, 21160-3, LIPNF, 2276-4 ####[facility] LABCLIA [id number] [place] [address] [place] Iron binding capacity [Mass/Vol] 502 ug/dL High 232-386 [facility] Comment on above: Order Comment: Speci men Type: BLOOD SPECIMENOrdering Facility: [facility] Address: [address] [place] [address] Performed By: #### 2 4323-8, 76966-9, LIPNF, 2276-4 ####[facility] LABCLIA [id number] [place] [address] [place] Iron/TIBC [Molar ratio] 4.6 % Low 15.0-57.[address] [facility] Comment on above: Order Comment: Speci men Type: BLOOD SPECIMENOrdering Facility: [facility] Address: [address] [place] [address] Performed By: #### 2 4323-8, 95845-8, LIPNF, 2275-4 ####[facility]CLIA [id number] [place] [address] [place] LIPID PANEL, NONFASTINGon Cholesterol [Mass/Vol] 158 mg/dL Normal <200 [facility] Comment on above: Order Comment: Speci men Type: BLOOD SPECIMENOrdering Facility: [facility] Address: [address] [place] [address] Result Comment: <200 mg/dL, Desirable 200-239 mg/dL, Borderline high>239 mg/dL, High Performed By: #### 2 4323-8, 97856-7, LIPNF, 6-4 ####[facility]CLIA [id number] [place] [address] [place] HDL CHOLESTEROL, NF 38 mg/dL Low >39 [facility] Comment on above: Order Comment: Speci men Type: BLOOD SPECIMENOrdering Facility: [facility] Address: [address] [place] [address] Result Comment: 40-5 9 mg/dL, Acceptable>59 mg/dL, High: Negative risk factor for coronary heart disease<40 mg/dL, Low: Positive risk factor for coronary heart disease Performed By: #### 2 4323-8, 38399-4, LIPNF, 2275-4 ####[facility]CLIA [id number] [place] [id number] [place] LDL CHOLESTEROL, NF 107 mg/dL High <100 [facility] Comment on above: Order Comment: Speci men Type: BLOOD SPECIMENOrdering Facility: [facility] Address: [address] [place] [address] Result Comment: <100 mg/dL, Optimal 100-129 mg/dL, Near optimal/above optimal 130-159 mg/dL, Borderline high 160-189 mg/dL, High>189 mg/dL, Very highSecondary prevention optimal LDL Cholesterol levels are recommended to be < 70 mg/dL Performed By: #### 2 4323-8, 93634-3, LIPNF, 2275-4 ####[facility]CL[facility] [id number] [address] [place] LDL/HDL RATIO, NF 2.82 mg/dL High <2.54 [facility] Comment on above: Order Comment: Speci men Type: BLOOD SPECIMENOrdering Facility: [facility] Address: [address] [place] [address] Result Comment: Refe rence:1. National Cholesterol Education Program ATP III Guideline At-A-Glance Quick Desk Reference: National Heart, Lung, and Blood [place]. National Institutes of Health. 2001: NIH Publication No. 01-3305.2. An International Atherosclerosis Society position paper: global recommendations for the management of dyslipidemia: executive summary, Atherosclerosis. 2014: 232(2):410-413. Performed By: #### 2 4323-8, 24464-2, LIPNF, 2275-4 ####[facility]IA [id number] [place] [id number] [place] NON HDL CHOL, NF 120 mg/dL Normal <130 [facility] Comment on above: Order Comment: Speci men Type: BLOOD SPECIMENOrdering Facility: [facility] Address: [address] [place] [address] Result Comment: <130 mg/dL, Optimal 130-159 mg/dL, Near optimal/above optimal 160-189 mg/dL, Borderline high 190-219 mg/dL, High>219 mg/dL, Very highSecondary prevention optimal non HDL Cholesterol levels are recommended to be <100 mg/dL Performed By: #### 2 4323-8, 17923-3, LIPNF, 2276-4 ####[facility]CL[facility] [id number] [place] [address] [place] T CHOL/HDL RATIO NF 4.16 mg/dL Normal <5.10 [facility] Comment on above: Order Comment: Speci men Type: BLOOD SPECIMENOrdering Facility: [facility] Address: [address] [place] [address] Performed By: #### 2 4323-8, 37134-7, LIPNF, 6-4 ####[facility]CLIA [id number] [place] [address] [facility] TRIGLYCERIDES, NF 67 mg/dL Normal <150 [facility] Comment on above: Order Comment: Speci men Type: BLOOD SPECIMENOrdering Facility: [facility] Address: [address] [place] [address] Result Comment: <150 mg/dL, Normal 150-199 mg/dL, Borderline high 200-499 mg/dL, High>499 mg/dL, Very high Performed By: #### 2 4323-8, 90123-4, LIPNF, 2275-4 ####[facility]CLIA [id number] [place] [address] [place] VLDL CHOLESTEROL, NF 13 mg/dL Normal <30 [facility] Comment on above: Order Comment: Speci men Type: BLOOD SPECIMENOrdering Facility: [facility] Address: [address] [place] [address] Performed By: #### 2 4323-8, 14582-8, LIPNF, 6-4 ####[facility]CLIA [id number] [place] [id number] [place] Chest PA and Lateralon 05-26 Chest PA and Lateral [facility] Imaging Services [address] [place] [address] Chest PA and Lateral MR#: [id number] Acct: [id number] Name: TORRIE MARTINEZ Rep #: [id number] : 1990 F 34 From: Angelo Freedman MD PCP: Louann Bermeo NP-C Status: REG ER Study: Chest PA and Lateral Date of Exam: 05/26/24 Exam# [id number] Ordering Dr: Onesimo Willson MD [id number] EXAM: XR CHEST, 2 VIEWS CLINICAL INDICATION: [...] Freedman MD at 20:34 EST , CC: [employer]-C Louann Bermeo; Dr. Onesimo Willson MD Cleaning Porter: Signed Normal [facility] Emergency Department Summary on 05-26-2024 Emergency Department Summary [facility] Medical Records Department [address] [place] [address] Emergency Department Summary 05/26/24 MR#: [id number] Acct: [id number] Name: TORRIE MARTINEZ Rep #: [id number] : 1990 34 From: Onesimo Willson MD [...] contacts but she has been at her [employer] basketball games in public off-and-on recently. [facility] Medical History (Updated 05/26/24 @ 20:56 by [...] non-distended Hector (more content not included)... Normal [facility] Influenza virus A and B and SARS-CoV-2 (COVID-19) and Respiratory syncytial virus RNAOrdered By: Onesimo Willson on 05-26-2024 SARS-CoV-2 (COVID-19) RNA GUNJAN+probe Ql (Unsp spec) Influenzae A Abnormal [facility] M100.678on 05-26-2024 SARS-CoV-2 (COVID-19) Ab IA Ql FLUABV+SARS-CoV-2+RS V Pnl Resp GUNJAN+probe Copy of report sent to Infection Control Printer MS#[id number] 05/26/242049 MLOLLO. FLUABV+SARS-CoV-2+RS V Pnl Resp GUNJAN+probe RESULTS CALLED TO COMPA JAFFE 05/26/242049 Zeinab Gar. REPORT READ BACK BY SAME. SARS-CoV-2 (COVID 19) Negative INFLUENZA A A Positive A INFLUENZA B Negative RSV PCR Negative INFLUENZAE A Normal [facility] Comment on above: Performed By: #### L 100.0100, L500.2500 #### [facility] [address] [place], [address] CNOVon 04-28-2024 CNOV Normal [facility] CNPNon 04-19-2024 CNPN Normal [facility] CNOVon 04-12-2024 CNOV Normal [facility] MYCOon 04-02-2024 Mycoplasma IgG Negative [facility] MAIN Comment on above: Result Comment: INTE RPRETATION OF MYCOPLASMA IgG BY EIA: Negative: No detectable M. pneumoniae IgG antibody. Positive: Mycoplasma pneumoniae IgG antibody Detected. Equivocal: Equivocal for IgG antibodies to Mycoplasma pneumoniae. Suggest repeat testing in 10-14 days. Performed By: #### G FR, MYCO, CBC, ADIFF, ANEU, TROPHS, BMP, MG #### [facility] [address] [place] [address] .Auto Diffon 04-01-2024 Basophil, Absolute 0.0 10 3/mcL Normal 0.0-0.3 [facility] Comment on above: Performed By: #### G FR, MYCO, CBC, ADIFF, ANEU, TROPHS, BMP, MG #### [facility] [address] [place] [address] Basophils/100 WBC (Bld) 0.1 % Normal 0.0-2.5 [facility] Comment on above: Performed By: #### G FR, MYCO, CBC, ADIFF, ANEU, TROPHS, BMP, MG #### [address] [address] Eosinophil, Absolute 0.0 10 3/mcL Normal 0.0-0.7 [facility] Comment on above: Performed By: #### G FR, MYCO, CBC, ADIFF, ANEU, TROPHS, BMP, MG #### [address] [address] Eosinophils/100 WBC (Bld) 0.2 % Normal 0.0-6.0 [facility] Comment on above: Performed By: #### G FR, MYCO, CBC, ADIFF, ANEU, TROPHS, BMP, MG #### [address] [address] Lymphocyte, Absolute 2.2 10 3/mcL Normal 0.9-4.3 [facility] Comment on above: Performed By: #### G FR, MYCO, CBC, ADIFF, ANEU, TROPHS, BMP, MG #### [address] [address] Lymphocytes/100 WBC (Bld) 19.0 % Low 20.0-40.0 [facility] Comment on above: Performed By: #### G FR, MYCO, CBC, ADIFF, ANEU, TROPHS, BMP, MG #### [address] [address] Monocyte, Absolute 1.1 10 3/mcL Normal 0.1-1.4 [facility] Comment on above: Performed By: #### G FR, MYCO, CBC, ADIFF, ANEU, TROPHS, BMP, MG #### [address] [address] Monocytes/100 WBC (Bld) 9.5 % Normal 2.0-13.0 [facility] Comment on above: Performed By: #### G FR, MYCO, CBC, ADIFF, ANEU, TROPHS, BMP, MG #### [address] [address] Neutrophils/100 WBC (Bld) 71.2 % Normal 50.0-75.0 [facility] Comment on above: Performed By: #### G FR, MYCO, CBC, ADIFF, ANEU, TROPHS, BMP, MG #### [address] [address] .GFRon 04-01-2024 GFR Non- >60 Normal [facility] Comment on above: Result Comment: [...] CBC, ADIFF, ANEU, TROPHS, BMP, MG #### [address] [address] GFR >60 [facility] MAIN Comment on above: Result Comment: GFR [...] CBC, ADIFF, ANEU, TROPHS, BMP, MG #### [address] [address] .NEUABSon 04-01-2024 Neutrophil, Absolute 8.3 10 3/mcL High 2.3-8.1 [facility] Comment on above: Performed By: #### G FR, MYCO, CBC, ADIFF, ANEU, TROPHS, BMP, MG #### [address] [address] [facility] BUN/Creatinine Ratio 26.8 ratio High 10.0-22.0 [facility] Comment on above: Performed By: #### G FR, MYCO, CBC, ADIFF, ANEU, TROPHS, BMP, MG #### [address] [address] Calcium [Mass/Vol] 9.2 mg/dL Normal 8.7-10.4 [facility] Comment on above: Performed By: #### G FR, MYCO, CBC, ADIFF, ANEU, TROPHS, BMP, MG #### [address] [address] Chloride [Moles/Vol] 94 mmol/L Low 98-110 [facility] Comment on above: Performed By: #### G FR, MYCO, CBC, ADIFF, ANEU, TROPHS, BMP, MG #### [address] [address] CO2 [Moles/Vol] 38 mmol/L High 22-32 [facility] Comment on above: Performed By: #### G FR, MYCO, CBC, ADIFF, ANEU, TROPHS, BMP, MG #### [address] [address] Creatinine [Mass/Vol] 0.82 mg/dL Normal 0.50-1.20 [facility] Comment on above: Result Comment: Test ing performed on BondandDeni analyzer using enzymatic creatinine methodology. Performed By: #### G FR, MYCO, CBC, ADIFF, ANEU, TROPHS, BMP, MG #### [address] [address] Electrolyte Balance 9.0 mEq/L Normal 4.0-15.0 [facility] Comment on above: Performed By: #### G FR, MYCO, CBC, ADIFF, ANEU, TROPHS, BMP, MG #### [address] [address] Glucose [Mass/Vol] 77 mg/dL Normal 70-110 [facility] Comment on above: Performed By: #### G FR, MYCO, CBC, ADIFF, ANEU, TROPHS, BMP, MG #### [place] [address] Potassium [Moles/Vol] 3.4 mmol/L Low 3.5-5.0 [facility] Comment on above: Performed By: #### G FR, MYCO, CBC, ADIFF, ANEU, TROPHS, BMP, MG #### [place] [address] Sodium [Moles/Vol] 141 mmol/L Normal 136-145 [facility] Comment on above: Performed By: #### G FR, MYCO, CBC, ADIFF, ANEU, TROPHS, BMP, MG #### [place] [address] Urea nitrogen [Mass/Vol] 22.0 mg/dL Normal 8.0-22.0 [facility] Comment on above: Performed By: #### G FR, MYCO, CBC, ADIFF, ANEU, TROPHS, BMP, MG #### [place] [id number] CBCon 04-01-2024 Erythrocyte distribution width (RBC) [Ratio] 18.2 % High 11.5-15.5 [facility] Comment on above: Performed By: #### G FR, MYCO, CBC, ADIFF, ANEU, TROPHS, BMP, MG #### [place] [id number] Hematocrit (Bld) [Volume fraction] 42.7 % Normal 34.0-46.0 [facility] Comment on above: Performed By: #### G FR, MYCO, CBC, ADIFF, ANEU, TROPHS, BMP, MG #### [place] [id number] Hgb 12.9 G/dL Normal 12.0-16.0 [facility] Comment on above: Performed By: #### G FR, MYCO, CBC, ADIFF, ANEU, TROPHS, BMP, MG #### [place] [id number] MCH (RBC) [Entitic mass] 20.8 pg Low 27.0-33.0 [facility] [facility] Comment on above: Performed By: #### G FR, MYCO, CBC, ADIFF, ANEU, TROPHS, BMP, MG #### [place] [address] MCHC 30.3 G/dL Low 32.0-36.0 [facility] Comment on above: Performed By: #### G FR, MYCO, CBC, ADIFF, ANEU, TROPHS, BMP, MG #### [place] [address] MCV (RBC) [Entitic vol] 68.8 fL Low 80.0-99.0 [facility] Comment on above: Performed By: #### G FR, MYCO, CBC, ADIFF, ANEU, TROPHS, BMP, MG #### [place] [address] Platelet 314 10 3/mcL Normal 150-450 [facility] Comment on above: Performed By: #### G FR, MYCO, CBC, ADIFF, ANEU, TROPHS, BMP, MG #### [place] [address] Platelet mean volume (Bld) [Entitic vol] 7.8 fL Normal 6.6-10.5 [facility] Comment on above: Performed By: #### G FR, MYCO, CBC, ADIFF, ANEU, TROPHS, BMP, MG #### [place] [address] RBC 6.21 10 6/mcL High 4.10-5.30 [facility] Comment on above: Performed By: #### G FR, MYCO, CBC, ADIFF, ANEU, TROPHS, BMP, MG #### [place] [address] WBC 11.6 10 3/mcL High 4.5-10.8 [facility] Comment on above: Performed By: #### G FR, MYCO, CBC, ADIFF, ANEU, TROPHS, BMP, MG #### [place] [address] LABORATORYOrdered By: SYSTEM SYSTEM on 04-01-2024 Basophils [...] above: Interpretive Data: T esting performed on [employer] analyzer using enzymatic creatinine methodology. Electrolyte Balance [...] 04-01-2024 Magnesium [Mass/Vol] 2.2 mg/dL Normal 1.6-2.4 [facility] Comment on above: Performed By: #### G FR, MYCO, CBC, ADIFF, ANEU, TROPHS, BMP, MG #### [address] [address] .Auto Diffon 03-31-2024 Basophil, Absolute 0.0 10 3/mcL Normal 0.0-0.3 [facility] Comment on above: Performed By: #### G FR, MYCO, CBC, ADIFF, ANEU, TROPHS, BMP, MG #### [address] [address] Basophils/100 WBC (Bld) 0.1 % Normal 0.0-2.5 [facility] Comment on above: Performed By: #### G FR, MYCO, CBC, ADIFF, ANEU, TROPHS, BMP, MG #### [address] [address] Eosinophil, Absolute 0.0 10 3/mcL Normal 0.0-0.7 [facility] Comment on above: Performed By: #### G FR, MYCO, CBC, ADIFF, ANEU, TROPHS, BMP, MG #### [address] [address] Eosinophils/100 WBC (Bld) 0.0 % Normal 0.0-6.0 [facility] Comment on above: Performed By: #### G FR, MYCO, CBC, ADIFF, ANEU, TROPHS, BMP, MG #### [address] [address] Lymphocyte, Absolute 2.1 10 3/mcL Normal 0.9-4.3 [facility] Comment on above: Performed By: #### G FR, MYCO, CBC, ADIFF, ANEU, TROPHS, BMP, MG #### [address] [address] Lymphocytes/100 WBC (Bld) 12.1 % Low 20.0-40.0 [facility] Comment on above: Performed By: #### G FR, MYCO, CBC, ADIFF, ANEU, TROPHS, BMP, MG #### [address] [address] Monocyte, Absolute 1.1 10 3/mcL Normal 0.1-1.4 [facility] Comment on above: Performed By: #### G FR, MYCO, CBC, ADIFF, ANEU, TROPHS, BMP, MG #### [address] [address] Monocytes/100 WBC (Bld) 6.6 % Normal 2.0-13.0 [facility] Comment on above: Performed By: #### G FR, MYCO, CBC, ADIFF, ANEU, TROPHS, BMP, MG #### [address] [address] Neutrophils/100 WBC (Bld) 81.2 % High 50.0-75.0 [facility] Comment on above: Performed By: #### G FR, MYCO, CBC, ADIFF, ANEU, TROPHS, BMP, MG #### [address] [address] .GFRon 03-31-2024 GFR >60 [facility] MAIN Comment on above: Result Comment: GFR [...] CBC, ADIFF, ANEU, TROPHS, BMP, MG #### [place] [address] GFR Non- >60 [facility] MAIN Comment on above: Result [...] CBC, ADIFF, ANEU, TROPHS, BMP, MG #### [place] [address] GFR >60 [facility] MAIN Comment on above: Result Comment: GFR [...] CBC, ADIFF, ANEU, TROPHS, BMP, MG #### [address] [address] GFR Non- >60 [facility] MAIN Comment on above: Result [...] CBC, ADIFF, ANEU, TROPHS, BMP, MG #### [address] [address] .Morphon 03-31-2024 Anisocytosis Ql (Bld) 1+ Normal [facility]IN Comment on above: Performed By: #### G FR, MYCO, CBC, ADIFF, ANEU, TROPHS, BMP, MG #### [address] [address] Microcytosis 2+ Normal [facility] Comment on above: Performed By: #### G FR, MYCO, CBC, ADIFF, ANEU, TROPHS, BMP, MG #### [address] [address] Ovalocytes 1+ Normal [facility] Comment on above: Performed By: #### G FR, MYCO, CBC, ADIFF, ANEU, TROPHS, BMP, MG #### [place] [phone] Platelet Estimate Normal Normal [facility] Comment on above: Performed By: #### G FR, MYCO, CBC, ADIFF, ANEU, TROPHS, BMP, MG #### [place] [address] Poik 1+ Normal [facility] Comment on above: Performed By: #### G FR, MYCO, CBC, ADIFF, ANEU, TROPHS, BMP, MG #### [place] [address] Polychrom 1+ Normal [facility] Comment on above: Performed By: #### G FR, MYCO, CBC, ADIFF, ANEU, TROPHS, BMP, MG #### [place] [address] .NEUABSon 03-31-2024 Neutrophil, Absolute 14.2 10 3/mcL High 2.3-8.1 [facility] Comment on above: Performed By: #### G FR, MYCO, CBC, ADIFF, ANEU, TROPHS, BMP, MG #### [place] [address] BMPon 03-31-2024 BUN/Creatinine Ratio 22.9 ratio High 10.0-22.0 [facility] Comment on above: Performed By: #### G FR, MYCO, CBC, ADIFF, ANEU, TROPHS, BMP, MG #### [place] [address] Calcium [Mass/Vol] 9.2 mg/dL Normal 8.7-10.4 [facility] Comment on above: Performed By: #### G FR, MYCO, CBC, ADIFF, ANEU, TROPHS, BMP, MG #### [place] [id number] [place] [address] Chloride [Moles/Vol] 93 mmol/L Low 98-110 [facility] Comment on above: Performed By: #### G FR, MYCO, CBC, ADIFF, ANEU, TROPHS, BMP, MG #### [address] [address] CO2 [Moles/Vol] 39 mmol/L High 22-32 [facility] Comment on above: Performed By: #### G FR, MYCO, CBC, ADIFF, ANEU, TROPHS, BMP, MG #### [address] [address] Creatinine [Mass/Vol] 0.83 mg/dL Normal 0.50-1.20 [facility] Comment on above: Result Comment: Test ing performed on [employer] analyzer using enzymatic creatinine methodology. Performed By: #### G FR, MYCO, CBC, ADIFF, ANEU, TROPHS, BMP, MG #### [address] [address] Electrolyte Balance 6.0 mEq/L Normal 4.0-15.0 [facility] Comment on above: Performed By: #### G FR, MYCO, CBC, ADIFF, ANEU, TROPHS, BMP, MG #### [address] [address] Glucose [Mass/Vol] 148 mg/dL High 70-110 [facility] Comment on above: Performed By: #### G FR, MYCO, CBC, ADIFF, ANEU, TROPHS, BMP, MG #### [address] [address] Potassium [Moles/Vol] 3.8 mmol/L Normal 3.5-5.0 [facility] Comment on above: Performed By: #### G FR, MYCO, CBC, ADIFF, ANEU, TROPHS, BMP, MG #### [address] [address] Sodium [Moles/Vol] 138 mmol/L Normal 136-145 [facility] Comment on above: Performed By: #### G FR, MYCO, CBC, ADIFF, ANEU, TROPHS, BMP, MG #### [address] [address] Urea nitrogen [Mass/Vol] 19.0 mg/dL Normal 8.0-22.0 [facility] Comment on above: Performed By: #### G FR, MYCO, CBC, ADIFF, ANEU, TROPHS, BMP, MG #### [address] [address] CO2 [Moles/Vol] mmol/L Critically abnormal 22-32 [facility] Comment on above: Performed By: #### G FR, MYCO, CBC, ADIFF, ANEU, TROPHS, BMP, MG #### [address] [address] Electrolyte Balance Unable to Calculate Normal 4.0-15. 0 [facility] Comment on above: Result Comment: Unab le to calculate this test result accurately. Results used to calculate this test are outside the reportable range. Performed By: #### G FR, MYCO, CBC, ADIFF, ANEU, TROPHS, BMP, MG #### [place] [phone] BUN/Creatinine Ratio 23.0 ratio High 10.0-22.0 [facility] Comment on above: Performed By: #### G FR, MYCO, CBC, ADIFF, ANEU, TROPHS, BMP, MG #### [address] [address] Calcium [Mass/Vol] 9.2 mg/dL Normal 8.7-10.4 [facility] Comment on above: Performed By: #### G FR, MYCO, CBC, ADIFF, ANEU, TROPHS, BMP, MG #### [address] [address] Chloride [Moles/Vol] 93 mmol/L Low 98-110 [facility] Comment on above: Performed By: #### G FR, MYCO, CBC, ADIFF, ANEU, TROPHS, BMP, MG #### [address] [address] Creatinine [Mass/Vol] 0.74 mg/dL Normal 0.50-1.20 [facility] Comment on above: Result Comment: Test ing performed on Bondand[employer] analyzer using enzymatic creatinine methodology. Performed By: #### G FR, MYCO, CBC, ADIFF, ANEU, TROPHS, BMP, MG #### [place] [address] Glucose [Mass/Vol] 109 mg/dL Normal 70-110 [facility] Comment on above: Performed By: #### G FR, MYCO, CBC, ADIFF, ANEU, TROPHS, BMP, MG #### [place] [phone] Potassium [Moles/Vol] 3.8 mmol/L Normal 3.5-5.0 [facility] Comment on above: Performed By: #### G FR, MYCO, CBC, ADIFF, ANEU, TROPHS, BMP, MG #### [place] [address] Sodium [Moles/Vol] 140 mmol/L Normal 136-145 [facility] Comment on above: Performed By: #### G FR, MYCO, CBC, ADIFF, ANEU, TROPHS, BMP, MG #### [place] [address] Urea nitrogen [Mass/Vol] 17.0 mg/dL Normal 8.0-22.0 [facility] Comment on above: Performed By: #### G FR, MYCO, CBC, ADIFF, ANEU, TROPHS, BMP, MG #### [place] [address] CBCon 03-31-2024 Erythrocyte distribution width (RBC) [Ratio] 18.3 % High 11.5-15.5 [facility] Comment on above: Performed By: #### C BC, MG, GFR, BMP, MORPH, ADIFF, ANEU #### [place] [address] Hematocrit (Bld) [Volume fraction] 42.2 % Normal 34.0-46.0 [facility] Comment on above: Performed By: #### C BC, MG, GFR, BMP, MORPH, ADIFF, ANEU #### [place] [address] Hgb 12.7 G/dL Normal 12.0-16.0 [facility] Comment on above: Performed By: #### C BC, MG, GFR, BMP, MORPH, ADIFF, ANEU #### [place] [address] MCH (RBC) [Entitic mass] 20.7 pg Low 27.0-33.0 [facility] Comment on above: Performed By: #### C BC, MG, GFR, BMP, MORPH, ADIFF, ANEU #### [place] [address] MCHC 30.1 G/dL Low 32.0-36.0 [facility] Comment on above: Performed By: #### C BC, MG, GFR, BMP, MORPH, ADIFF, ANEU #### [place] [address] MCV (RBC) [Entitic vol] 68.8 fL Low 80.0-99.0 [facility] Comment on above: Performed By: #### C BC, MG, GFR, BMP, MORPH, ADIFF, ANEU #### [place] [address] Platelet 306 10 3/mcL Normal 150-450 [facility] Comment on above: Performed By: #### C BC, MG, GFR, BMP, MORPH, ADIFF, ANEU #### [place] [address] Platelet mean volume (Bld) [Entitic vol] 8.0 fL Normal 6.6-10.5 [facility] Comment on above: Performed By: #### C BC, MG, GFR, BMP, MORPH, ADIFF, ANEU #### [place] [address] RBC 6.12 10 6/mcL High 4.10-5.30 [facility] Comment on above: Performed By: #### C BC, MG, GFR, BMP, MORPH, ADIFF, ANEU #### [place] [address] WBC 17.5 10 3/mcL High 4.5-10.8 [facility] Comment on above: Performed By: #### C BC, MG, GFR, BMP, MORPH, ADIFF, ANEU #### [place] [phone] [place] [address] LABORATORYOrdered By: SYSTEM SYSTEM on 03-31-2024 Calcium [...] above: Interpretive Data: T esting performed on [employer] analyzer using enzymatic creatinine methodology. Electrolyte Balance 6.0 mEq/L Normal 4.0 - 15 .0 mEq/L AH ADM SS GFR/1.73 sq M.predicted among blacks MDRD (S/P/Bld) [Vol rate/Area] ml/min/1.73sqm Invalid Interpretation Code [employer] S Comment on above: Interpretive Data: [...] (S/P/Bld) [Vol rate/Area] ml/min/1.73sqm Invalid Interpretation Code [employer] S Comment on above: Interpretive Data: [...] above: Interpretive Data: T esting performed on [employer] analyzer using enzymatic creatinine methodology. Eosinophils (Bld) [...] 03-31-2024 Magnesium [Mass/Vol] 1.8 mg/dL Normal 1.6-2.4 [facility] Comment on above: Performed By: #### C BC, MG, GFR, BMP, MORPH, ADIFF, ANEU #### [address] [address] MYCOon 03-31-2024 Mycoplasma IgM Negative Normal [facility] Comment on above: Result Comment: [...] CBC, ADIFF, ANEU, TROPHS, BMP, MG #### [address] [address] .Auto Diffon 2024 Basophil, Absolute 0.0 10 3/mcL Normal 0.0-0.3 [facility] Comment on above: Performed By: #### G FR, MYCO, CBC, ADIFF, ANEU, TROPHS, BMP, MG #### [address] [address] Basophils/100 WBC (Bld) 0.0 % Normal 0.0-2.5 [facility] Comment on above: Performed By: #### G FR, MYCO, CBC, ADIFF, ANEU, TROPHS, BMP, MG #### [address] [address] Eosinophil, Absolute 0.0 10 3/mcL Normal 0.0-0.7 [facility] Comment on above: Performed By: #### G FR, MYCO, CBC, ADIFF, ANEU, TROPHS, BMP, MG #### [address] [address] Eosinophils/100 WBC (Bld) 0.0 % Normal 0.0-6.0 [facility] Comment on above: Performed By: #### G FR, MYCO, CBC, ADIFF, ANEU, TROPHS, BMP, MG #### [address] [address] Lymphocyte, Absolute 0.9 10 3/mcL Normal 0.9-4.3 [facility] Comment on above: Performed By: #### G FR, MYCO, CBC, ADIFF, ANEU, TROPHS, BMP, MG #### [address] [address] Lymphocytes/100 WBC (Bld) 8.0 % Low 20.0-40.0 [facility] Comment on above: Performed By: #### G FR, MYCO, CBC, ADIFF, ANEU, TROPHS, BMP, MG #### [address] [address] Monocyte, Absolute 0.3 10 3/mcL Normal 0.1-1.4 [facility] Comment on above: Performed By: #### G FR, MYCO, CBC, ADIFF, ANEU, TROPHS, BMP, MG #### [address] [address] Monocytes/100 WBC (Bld) 2.8 % Normal 2.0-13.0 [facility] Comment on above: Performed By: #### G FR, MYCO, CBC, ADIFF, ANEU, TROPHS, BMP, MG #### [address] [address] Neutrophils/100 WBC (Bld) 89.2 % High 50.0-75.0 [facility] Comment on above: Performed By: #### G FR, MYCO, CBC, ADIFF, ANEU, TROPHS, BMP, MG #### [address] [address] .GFRon 2024 GFR >60 Normal [facility] Comment on above: Result Comment: [...] CBC, ADIFF, ANEU, TROPHS, BMP, MG #### [place] [phone] GFR Non- >60 Normal [facility] Comment on above: Result Comment: [...] CBC, ADIFF, ANEU, TROPHS, BMP, MG #### [address] [address] .NEUABSon 2024 Neutrophil, Absolute 9.9 10 3/mcL High 2.3-8.1 [facility] Comment on above: Performed By: #### G FR, MYCO, CBC, ADIFF, ANEU, TROPHS, BMP, MG #### [address] [address] BMPon 2024 BUN/Creatinine Ratio 20.3 ratio Normal 10.0-22.0 [facility] Comment on above: Performed By: #### G FR, MYCO, CBC, ADIFF, ANEU, TROPHS, BMP, MG #### [place] [phone] Calcium [Mass/Vol] 9.2 mg/dL Normal 8.7-10.4 [facility] Comment on above: Performed By: #### G FR, MYCO, CBC, ADIFF, ANEU, TROPHS, BMP, MG #### [place] [address] Chloride [Moles/Vol] 102 mmol/L Normal 98-110 [facility] Comment on above: Performed By: #### G FR, MYCO, CBC, ADIFF, ANEU, TROPHS, BMP, MG #### [place] [phone] CO2 [Moles/Vol] 32 mmol/L Normal 22-32 [facility] Comment on above: Performed By: #### G FR, MYCO, CBC, ADIFF, ANEU, TROPHS, BMP, MG #### [place] [phone] Creatinine [Mass/Vol] 0.59 mg/dL Normal 0.50-1.20 [facility] Comment on above: Result Comment: Test ing performed on [employer] analyzer using enzymatic creatinine methodology. Performed By: #### G FR, MYCO, CBC, ADIFF, ANEU, TROPHS, BMP, MG #### [place] [phone] Electrolyte Balance 5.0 mEq/L Normal 4.0-15.0 [facility] Comment on above: Performed By: #### G FR, MYCO, CBC, ADIFF, ANEU, TROPHS, BMP, MG #### [place] [phone] Glucose [Mass/Vol] 242 mg/dL High 70-110 [facility] Comment on above: Performed By: #### G FR, MYCO, CBC, ADIFF, ANEU, TROPHS, BMP, MG #### [place] [address] Potassium [Moles/Vol] 4.4 mmol/L Normal 3.5-5.0 [facility] Comment on above: Performed By: #### G FR, MYCO, CBC, ADIFF, ANEU, TROPHS, BMP, MG #### [place] [address] Sodium [Moles/Vol] 139 mmol/L Normal 136-145 [facility] Comment on above: Performed By: #### G FR, MYCO, CBC, ADIFF, ANEU, TROPHS, BMP, MG #### [place] [address] Urea nitrogen [Mass/Vol] 12.0 mg/dL Normal 8.0-22.0 [facility] Comment on above: Performed By: #### G FR, MYCO, CBC, ADIFF, ANEU, TROPHS, BMP, MG #### [place] [address] CBCon 2024 Erythrocyte distribution width (RBC) [Ratio] 18.6 % High 11.5-15.5 [facility] Comment on above: Performed By: #### G FR, MYCO, CBC, ADIFF, ANEU, TROPHS, BMP, MG #### [place] [address] Hematocrit (Bld) [Volume fraction] 38.2 % Normal 34.0-46.0 [facility] Comment on above: Performed By: #### G FR, MYCO, CBC, ADIFF, ANEU, TROPHS, BMP, MG #### [place] [address] Hgb 11.4 G/dL Low 12.0-16.0 [facility] Comment on above: Performed By: #### G FR, MYCO, CBC, ADIFF, ANEU, TROPHS, BMP, MG #### [place] [address] MCH (RBC) [Entitic mass] 20.6 pg Low 27.0-33.0 [facility] Comment on above: Performed By: #### G FR, MYCO, CBC, ADIFF, ANEU, TROPHS, BMP, MG #### [place] [address] MCHC 29.9 G/dL Low 32.0-36.0 [facility] Comment on above: Performed By: #### G FR, MYCO, CBC, ADIFF, ANEU, TROPHS, BMP, MG #### [place] [address] MCV (RBC) [Entitic vol] 68.8 fL Low 80.0-99.0 [facility] Comment on above: Performed By: #### G FR, MYCO, CBC, ADIFF, ANEU, TROPHS, BMP, MG #### [place] [address] Platelet 248 10 3/mcL Normal 150-450 [facility] Comment on above: Performed By: #### G FR, MYCO, CBC, ADIFF, ANEU, TROPHS, BMP, MG #### [place] [address] Platelet mean volume (Bld) [Entitic vol] 8.6 fL Normal 6.6-10.5 [facility] Comment on above: Performed By: #### G FR, MYCO, CBC, ADIFF, ANEU, TROPHS, BMP, MG #### [place] [address] RBC 5.55 10 6/mcL High 4.10-5.30 [facility] Comment on above: Performed By: #### G FR, MYCO, CBC, ADIFF, ANEU, TROPHS, BMP, MG #### [place] [address] WBC 11.1 10 3/mcL High 4.5-10.8 [facility] Comment on above: Performed By: #### G FR, MYCO, CBC, ADIFF, ANEU, TROPHS, BMP, MG #### [place] [address] LABORATORYOrdered By: SYSTEM SYSTEM on 2024 Basophils [...] ng/L Male: 0-54 ng/L Testing performed on [employer] IM analyzer using direct chemiluminescent technology. WBC [...] Detected AH Auto Viro/Sero SS B. parapertussis [id number] DNA GUNJAN+non-probe Ql (Nph) Not Detected *NA* [...] his assay has been validated in the [facility] for use with nasopharyngeal specimens in [facility]. If a non-validated specimen or test collection [...] 2024 Magnesium [Mass/Vol] 2.0 mg/dL Normal 1.6-2.4 [facility] Comment on above: Performed By: #### G FR, MYCO, CBC, ADIFF, ANEU, TROPHS, BMP, MG #### [facility] [address] [place] [address] No Panel Informationon 03-30 Legionella Urine Ag Presumptive negative for L. pneumophila serogroup 1 antigen in urine, suggesting no recent or current infection. Legionnaire's disease cannot be ruled out since other serogroups and species may also cause disease. [facility] Streptococcus Pneumoniae Urine Antig Presumptive negative for pneumococcal pneumonia, suggesting no current or recent pneumococcal infection. Infection due to Strep pneumoniae cannot be ruled out since the antigen present in the sample may be below the detection limit of the test. [facility] Comment on above: This test has not be en evaluated on patients taking antibiotics for greater than 24 hours or on patients who have recently completed an antibiotic regimen. The accuracy of this test has not been proven in young children. Deb 2024 Adenovirus Not detected Normal Not Detected [facility] Comment on above: Performed By: #### G FR, MYCO, CBC, ADIFF, ANEU, TROPHS, BMP, MG #### [place] [address] Bordetella Parapertussis Not detected Normal Not Detected [facility] Comment on above: Performed By: #### G FR, MYCO, CBC, ADIFF, ANEU, TROPHS, BMP, MG #### [place] [address] Bordetella Pertussis Not detected Normal Not Detected [facility] Comment on above: Performed By: #### G FR, MYCO, CBC, ADIFF, ANEU, TROPHS, BMP, MG #### [place] [address] Chlamydophila pneumoniae Not detected Normal Not Detected [facility] Comment on above: Performed By: #### G FR, MYCO, CBC, ADIFF, ANEU, TROPHS, BMP, MG #### [place] [address] Coronavirus 229E (Not COVID-19) Not detected Normal Not Detected [facility] Comment on above: Performed By: #### G FR, MYCO, CBC, ADIFF, ANEU, TROPHS, BMP, MG #### [place] [address] Coronavirus HKU1 (Not COVID-19) Not detected Normal Not Detected [facility] Comment on above: Performed By: #### G FR, MYCO, CBC, ADIFF, ANEU, TROPHS, BMP, MG #### [place] [address] Coronavirus NL63 (Not COVID-19) Not detected Normal Not Detected [facility] Comment on above: Performed By: #### G FR, MYCO, CBC, ADIFF, ANEU, TROPHS, BMP, MG #### [place] [phone] Coronavirus OC43 (Not COVID-19) Not detected Normal Not Detected [facility] Comment on above: Performed By: #### G FR, MYCO, CBC, ADIFF, ANEU, TROPHS, BMP, MG #### [facility] [address] [place] [address] Human Metapneumovirus Not detected Normal Not Detected [facility] Comment on above: Performed By: #### G FR, MYCO, CBC, ADIFF, ANEU, TROPHS, BMP, MG #### [facility] [address] [place], [place] [id number] Influenza A Not detected Normal Not Detected [facility] Comment on above: Performed By: #### G FR, MYCO, CBC, ADIFF, ANEU, TROPHS, BMP, MG #### [facility] [address] [place], [place] [id number] Influenza B Not detected Normal Not Detected [facility] Comment on above: Performed By: #### G FR, MYCO, CBC, ADIFF, ANEU, TROPHS, BMP, MG #### [facility] [address] [place] [address] Mycoplasma pneumoniae Not detected Normal Not Detected [facility] Comment on above: Performed By: #### G FR, MYCO, CBC, ADIFF, ANEU, TROPHS, BMP, MG #### [facility] [address] [place], [place] [id number] Parainfluenza 1 Not detected Normal Not Detected [facility] Comment on above: Performed By: #### G FR, MYCO, CBC, ADIFF, ANEU, TROPHS, BMP, MG #### [facility] [address] [place] [address] Parainfluenza 2 Not detected Normal Not Detected [facility] Comment on above: Performed By: #### G FR, MYCO, CBC, ADIFF, ANEU, TROPHS, BMP, MG #### [facility] [address] [place], [place] [id number] Parainfluenza 3 Not detected Normal Not Detected [facility] MAIN Comment on above: Performed By: #### G FR, MYCO, CBC, ADIFF, ANEU, TROPHS, BMP, MG #### [facility] [address] [place] [address] Parainfluenza 4 Not detected Normal Not Detected [facility] Comment on above: Performed By: #### G FR, MYCO, CBC, ADIFF, ANEU, TROPHS, BMP, MG #### [facility] [address] [place] [address] Respiratory Syncytial Virus Not detected Normal Not Detected [facility] Comment on above: Performed By: #### G FR, MYCO, CBC, ADIFF, ANEU, TROPHS, BMP, MG #### [facility] [address] [place] [address] Rhinovirus/Enterovirus Detected Abnormal Not Detected [facility] Comment on above: Performed By: #### G FR, MYCO, CBC, ADIFF, ANEU, TROPHS, BMP, MG #### [facility] [address] [place] [address] SARS-CoV-2 (COVID-19) RNA GUNJAN+probe Ql (Unsp spec) Not detected Normal Not Detected [facility] Comment on above: Result Comment: This assay has been validated in the [facility] for use with nasopharyngeal specimens in [facility]. If a non-validated specimen or test collection [...] CBC, ADIFF, ANEU, TROPHS, BMP, MG #### [place] [id number] [facility] 2024 High Sensitivity Troponin I <3 Normal 0-34 [facility] Comment on above: Result Comment: High Sensitive Troponin I Reference Ranges: Female: 0-34 ng/L Male: 0-54 ng/L Testing performed on [employer] analyzer using direct chemiluminescent technology. Performed By: #### G FR, MYCO, CBC, ADIFF, ANEU, TROPHS, BMP, MG #### [place] [address] .Auto Diffon 03-29-2024 Basophil, Absolute 0.0 10 3/mcL Normal 0.0-0.2 [facility] Comment on above: Performed By: #### V BG #### [address] [address] Basophils/100 WBC (Bld) 0.1 % Normal 0.0-2.5 [facility] Comment on above: Performed By: #### V BG #### [address] [address] Eosinophil, Absolute 0.0 10 3/mcL Normal 0.0-0.7 [place] Comment on above: Performed By: #### V BG #### [address] [address] Eosinophils/100 WBC (Bld) 0.2 % Normal 0.0-7.0 [facility] Comment on above: Performed By: #### V BG #### [address] [address] Lymphocyte, Absolute 1.4 10 3/mcL Normal 0.9-4.3 [place] Comment on above: Performed By: #### V BG #### [address] [address] Lymphocytes/100 WBC (Bld) 9.8 % Low 20.0-40.0 [facility] Comment on above: Performed By: #### V BG #### [address] [address] Monocyte, Absolute 1.0 10 3/mcL Normal 0.1-1.4 [facility] Comment on above: Performed By: #### V BG #### [address] [address] Monocytes/100 WBC (Bld) 6.8 % Normal 2.0-13.0 [facility] Comment on above: Performed By: #### V BG #### [address] [address] Neutrophils/100 WBC (Bld) 83.1 % High 50.0-75.0 [facility] Comment on above: Performed By: #### V BG #### [address] [address] .GFRon 03-29-2024 GFR Non- 84 ml/min/1.73sqm Normal [facility] Comment on above: Result Comment: GFR Population [...] PBNP, CMP, GFR, ADIFF, PRO, MDW #### [address] [address] GFR 101 ml/min/1.73sqm Normal [facility] Comment on above: Result Comment: GFR Population [...] PBNP, CMP, GFR, ADIFF, PRO, MDW #### [address] [address] .MDWon 03-29-2024 Monocyte Distribution Width Not performed Normal 0.00-20.00 [facility] Comment on above: Result Comment: MDW testing performed only on adult ER patients between the ages of 18-89 years. Performed By: #### V BG #### [address] [address] .Morphon 03-29-2024 Anisocytosis Ql (Bld) 1+ Normal L [facility] Comment on above: Performed By: #### V BG #### [place] [address] Hypochrom 1+ Normal [facility] Comment on above: Performed By: #### V BG #### [place] [phone] Microcytosis 2+ Normal [facility] Comment on above: Performed By: #### V BG #### [place] [phone] Ovalocytes 1+ Normal [facility] Comment on above: Performed By: #### V BG #### [place] [phone] Platelet Estimate Normal Normal [facility] Comment on above: Performed By: #### V BG #### [place] [address] Poik 1+ Normal [facility] Comment on above: Performed By: #### V BG #### [place] [address] Tear Cell 1+ Normal [facility] Comment on above: Performed By: #### V BG #### [place] [address] .NEUABSon 03-29-2024 Neutrophil, Absolute 12.0 10 3/mcL High 2.3-8.1 A [facility] Comment on above: Performed By: #### V BG #### [place] [address] .Urinalysis Microscopic (AO) on 03-29-2024 UA Bacteria Trace Abnormal [facility] Comment on above: Performed By: #### V BG #### [place] [address] UA RBC 0-5 Abnormal None Seen [facility] Comment on above: Performed By: #### V BG #### [place] [address] UA Squam Epithelial LOADED Abnormal None Seen [facility] Comment on above: Performed By: #### V BG #### [place] [address] UA WBC LOADED Abnormal None Seen [facility] Comment on above: Performed By: #### V BG #### [place] [address] CBCon 03-29-2024 Erythrocyte distribution width (RBC) [Ratio] 18.5 % High 11.5-15.5 [facility] Comment on above: Performed By: #### L AC, ANEU, CBC, MORPH, PBNP, CMP, GFR, ADIFF, PRO, MDW #### [place]a [place] [address] [place], [place] [address] Hematocrit (Bld) [Volume fraction] 38.3 % Normal 34.0-46.0 [facility] Comment on above: Performed By: #### L AC, ANEU, CBC, MORPH, PBNP, CMP, GFR, ADIFF, PRO, MDW #### [address] [address] Hgb 11.5 G/dL Low 12.0-16.0 [facility] Comment on above: Performed By: #### L AC, ANEU, CBC, MORPH, PBNP, CMP, GFR, ADIFF, PRO, MDW #### [address] [address] MCH (RBC) [Entitic mass] 20.6 pg Low 27.0-33.0 [facility] Comment on above: Performed By: #### L AC, ANEU, CBC, MORPH, PBNP, CMP, GFR, ADIFF, PRO, MDW #### [address] [address] MCHC 30.1 G/dL Low 32.0-36.0 [facility] Comment on above: Performed By: #### L AC, ANEU, CBC, MORPH, PBNP, CMP, GFR, ADIFF, PRO, MDW #### [address] [address] MCV (RBC) [Entitic vol] 68.6 fL Low 80.0-99.0 [facility] Comment on above: Performed By: #### L AC, ANEU, CBC, MORPH, PBNP, CMP, GFR, ADIFF, PRO, MDW #### [address] [address] Platelet 257 10 3/mcL Normal 150-450 [facility] Comment on above: Performed By: #### L AC, ANEU, CBC, MORPH, PBNP, CMP, GFR, ADIFF, PRO, MDW #### [address] [address] Platelet mean volume (Bld) [Entitic vol] 7.7 fL Normal 6.6-10.5 [facility] Comment on above: Performed By: #### L AC, ANEU, CBC, MORPH, PBNP, CMP, GFR, ADIFF, PRO, DENA #### [address] [address] RBC 5.58 10 6/mcL High 4.10-5.30 [facility] Comment on above: Performed By: #### L AC, ANEU, CBC, MORPH, PBNP, CMP, GFR, ADIFF, PRO, W #### [address] [address] WBC 14.8 10 3/mcL High 4.5-10.8 [facility] Comment on above: Performed By: #### L AC, ANEU, CBC, MORPH, PBNP, CMP, GFR, ADIFF, PRO, DENA #### [address] [address] CMPon 03-29-2024 Albumin Level 3.3 G/dL Low 3.5-5.0 [facility] Comment on above: Performed By: #### L AC, ANEU, CBC, MORPH, PBNP, CMP, GFR, ADIFF, PRO, DENA #### [address] [address] Albumin/Globulin [Mass ratio] 1.3 {ratio} Normal 1.1-2.5 [facility] Comment on above: Performed By: #### L AC, ANEU, CBC, MORPH, PBNP, CMP, GFR, ADIFF, PRO, DENA #### [address] [address] ALP [Catalytic activity/Vol] 107 U/L Normal 40-135 [facility] Comment on above: Performed By: #### L AC, ANEU, CBC, MORPH, PBNP, CMP, GFR, ADIFF, PRO, DENA #### [address] [address] ALT [Catalytic activity/Vol] 24 U/L Normal 14-59 [facility] Comment on above: Performed By: #### L AC, ANEU, CBC, MORPH, PBNP, CMP, GFR, ADIFF, PROMDW #### [address] [address] AST [Catalytic activity/Vol] 11 U/L Normal 10-40 [facility] Comment on above: Performed By: #### L AC, ANEU, CBC, MORPH, PBNP, CMP, GFR, ADIFF, PRO, MDW #### [address] [address] Bili Total 0.7 mg/dL Normal 0.2-1.0 [facility] Comment on above: Result Comment: Use of this assay is not recommended for patients undergoing treatment with eltrombopag due to the potential for falsely elevated results. Performed By: #### L AC, ANEU, CBC, MORPH, PBNP, CMP, GFR, ADIFF, PRO, MDW #### [address] [address] BUN/Creatinine Ratio 9 ratio Normal 7-27 [facility] Comment on above: Performed By: #### L AC, ANEU, CBC, MORPH, PBNP, CMP, GFR, ADIFF, PRO, MDW #### [address] [address] Calcium [Mass/Vol] 8.8 mg/dL Normal 8.4-10.2 [facility] Comment on above: Performed By: #### L AC, ANEU, CBC, MORPH, PBNP, CMP, GFR, ADIFF, PRO, MDW #### [address] [address] Chloride [Moles/Vol] 100 mmol/L Normal 98-107 [facility] Comment on above: Performed By: #### L AC, ANEU, CBC, MORPH, PBNP, CMP, GFR, ADIFF, PRO, MDW #### [address] [address] CO2 [Moles/Vol] 32 mmol/L High 22-29 [facility] Comment on above: Performed By: #### L AC, ANEU, CBC, MORPH, PBNP, CMP, GFR, ADIFF, PRO, MDW #### [address] [address] Creatinine [Mass/Vol] 0.80 mg/dL Normal 0.55-1.02 [facility] Comment on above: Result Comment: Test ing performed on Siem[employer] Dimension EXL analyzer using a modified kinetic Myrtle technique. Performed By: #### L AC, ANEU, CBC, MORPH, PBNP, CMP, GFR, ADIFF, PRO, MDW #### [place] [phone] Electrolyte Balance 6.0 mEq/L Normal 4.0-15.0 [facility] Comment on above: Performed By: #### L AC, ANEU, CBC, MORPH, PBNP, CMP, GFR, ADIFF, PRO, MDW #### [place] [address] Globulin 2.5 G/dL Normal [facility] Comment on above: Performed By: #### L AC, ANEU, CBC, MORPH, PBNP, CMP, GFR, ADIFF, PRO, MDW #### [address] [address] Glucose [Mass/Vol] 117 mg/dL High 70-105 [facility] Comment on above: Performed By: #### L AC, ANEU, CBC, MORPH, PBNP, CMP, GFR, ADIFF, PRO, MDW #### [address] [address] Potassium [Moles/Vol] 4.4 mmol/L Normal 3.5-5.1 [facility] Comment on above: Performed By: #### L AC, ANEU, CBC, MORPH, PBNP, CMP, GFR, ADIFF, PRO, MDW #### [address] [address] Sodium [Moles/Vol] 138 mmol/L Normal 136-145 [facility] Comment on above: Performed By: #### L AC, ANEU, CBC, MORPH, PBNP, CMP, GFR, ADIFF, PRO, MDW #### [place] [phone] Total Protein 5.8 G/dL Low 6.4-8.2 [facility] Comment on above: Performed By: #### L AC, ANEU, CBC, MORPH, PBNP, CMP, GFR, ADIFF, PRO, MDW #### [place] [phone] [place], [place] [address] Urea nitrogen [Mass/Vol] 7 mg/dL Normal 7-18 [facility] Comment on above: Performed By: #### L AC, ANEU, CBC, MORPH, PBNP, CMP, GFR, ADIFF, PRO, MDW #### [address] [address] CVFLURVon 03-29-2024 FLU A PCR Negative Normal Negative [facility] Comment on above: Performed By: #### C VFLURV #### [address] [address] FLU B PCR Negative Normal Negative [facility] Comment on above: Performed By: #### C VFLURV #### [address] [address] RSV PCR Negative Normal Negative [facility] Comment on above: Performed By: #### C VFLURV #### [place] [address] SARS-CoV-2 (COVID-19) RNA GUNJAN+probe Ql (Unsp spec) Negative Normal Negative [facility] Comment on above: Result Comment: Resu lts [...] Performed By: #### C VFLURV #### [place] [id number] [place], [place] [address] LABORATORYOrdered By: Chino Basurto on 03-29-2024 HCG [...] Comment on above: Interpretive Data: Teresa armendariz [employer] (CHEST, 1991, 102:312S-25S) [...] Lactic Acid Lvl 0.9 mmol/L Normal 0.4-2.0 [facility] Comment on above: Performed By: #### L AC, ANEU, CBC, MORPH, PBNP, CMP, GFR, ADIFF, PRO, MDW #### [address] [address] No Panel Informationon 03-29 Microscopic examination of blood, culture Culture has been received in lab and is no growth to date. Routine cultures are held for [address] [facility] PBNPon 03-29-2024 Natriuretic peptide B (Bld) [Mass/Vol] 167 pg/mL High 0-125 [facility] Comment on above: Result Comment: NT-p roBNP results of less than 300 pg/mL effectively rules out acute congestive heart failure with 99% negative predictive value. Performed By: #### L AC, ANEU, CBC, MORPH, PBNP, CMP, GFR, ADIFF, PRO, MDW #### [place] [address] PREGUon 03-29-2024 HCG ( test) Ql (U) Negative Normal [facility] Comment on above: Performed By: #### P REGU #### [place] [address] test (u) int Not detected Invalid Interpretation Code [facility] Comment on above: Performed By: #### P REGU #### [place] [address] PROon 03-29-2024 PT Coag (PPP) [Time] 13.9 s Normal 9.0-14.4 [facility] Comment on above: Performed By: #### L AC, ANEU, CBC, MORPH, PBNP, CMP, GFR, ADIFF, PRO, MDW #### [place] [address] PT International Ratio 1.2 Normal [place] Comment on above: Result Comment: [employer] (CHEST, 1992, 102:[id number]) recommended therapeutic range for oral anticoagulant therapy is: LOW RISK: Prophylaxis of venous thrombosis INR: 2.0-3.0 Treatment of pulmonary embolism 2.0-3.0 Prevention of systemic embolism 2.0-3.0 HIGH RISK: Mechanical prosthetic valves 2.5-3.5 Performed By: #### L AC, ANEU, CBC, MORPH, PBNP, CMP, GFR, ADIFF, PRO, MDW #### [address] [address] UAon 03-29-2024 Color (U) Yellow Normal [facility] Comment on above: Performed By: #### V BG #### [address] [address] Glucose (U) [Mass/Vol] Negative Normal Negative [place] Comment on above: Performed By: #### V BG #### [address] [address] Ketones Ql (U) 80 mg/dL Abnormal Negative [facility] Comment on above: Performed By: #### V BG #### [address] [address] UA Appear Clear Normal Clear [facility] Comment on above: Performed By: #### V BG #### [address] [address] UA Bili Small Abnormal Negative [facility] Comment on above: Performed By: #### V BG #### [address] [address] UA Blood Trace Abnormal Negative [facility] Comment on above: Performed By: #### V BG #### [address] [address] UA Leuk Est Large Abnormal Negative [facility] Comment on above: Performed By: #### V BG #### [address] [address] UA Nitrite Negative Normal Negative [facility] Comment on above: Performed By: #### V BG #### [address] [address] UA pH 7.0 Normal 5.0 - 8.0 [facility] Comment on above: Performed By: #### V BG #### [address] [address] UA Protein 30 mg/dL Normal Negative [facility] Comment on above: Performed By: #### V BG #### [address] [address] UA Spec Grav 1.020 Normal 1.015-1.025 [facility] Comment on above: Performed By: #### V BG #### [address] [address] UA Specimen Type Clean Catch Normal [facility] Comment on above: Performed By: #### V BG #### [address] [address] UA Urobilinogen >=8.0 Abnormal 0.2-1.0 [facility] Comment on above: Performed By: #### V BG #### [address] [address] VBGon 03-29-2024 BE Venous 2.4 mmol/L Normal -3.0-3.0 [facility] Comment on above: Performed By: #### V BG #### [place] [phone] CO2 [Moles/Vol] 27.9 mmol/L Normal 22.0-32.0 [facility] Comment on above: Performed By: #### V BG #### [address] [address] HCO3 (Bld) [Moles/Vol] 26.7 mmol/L Normal 21.0-30.0 [facility] Comment on above: Performed By: #### V BG #### [address] [address] Oxygen saturation in Blood 90.7 % High 70.0-75.0 [facility] Comment on above: Performed By: #### V BG #### [address] [address] pCO2 Silvino 40.2 mmHg Low 41.0-51.0 [facility] Comment on above: Performed By: #### V BG #### [address] [address] pH Venous 7.440 Normal 7.380-7.460 [facility] Comment on above: Performed By: #### V BG #### [facility] [address] [place], [place] [address] pO2 Silvino 56.1 mmHg High 35.0-40.0 [facility] Comment on above: Performed By: #### V #### [place] [id number] [place], [place] [address] XR CHEST 1 VIEWon 03-29-2024 XR CHEST [...] 03/29/2024 11:18:28 AM Ordering Provider: SANDEE Heaton [facility] STREP A MOLECULAR (POC)on Procedural Control Valid [facility] Strep A (POCT) Negative Negative [facility] CBC W Auto Differential pane l (Bld)on 06-30-2023 Basophils (Bld) [#/Vol] 0.03 10*3/uL <0.11 k/uL [facility] Basophils/100 WBC (Bld) 0.3 % C [facility] Differential cell count method Nom (Bld) Auto [facility] Eosinophils (Bld) [#/Vol] 0.16 10*3/uL <0.46 k/uL [facility] Eosinophils/100 WBC (Bld) 1.5 % [facility] Erythrocyte distribution width (RBC) [Ratio] 19.2 % High 11.5 - 15.0 % [facility] Hematocrit (Bld) [Volume fraction] 47.6 % High 36.0 - 46.0 % [facility] Hemoglobin (Bld) [Mass/Vol] 12.8 g/dL 11.5 - 15.5 g/dL [facility] Immature granulocytes (Bld) [#/Vol] 0.04 10*3/uL <0.10 k/uL [facility] Immature granulocytes/100 WBC (Bld) 0.4 % [facility] Lymphocytes (Bld) [#/Vol] 2.83 10*3/uL 1.00 - 4.00 k/uL [facility] Lymphocytes/100 WBC (Bld) 27.1 % [facility] MCH (RBC) [Entitic mass] 19.5 pg Low 26.0 - 34.0 pg [facility] MCHC (RBC) [Mass/Vol] 26.9 g/dL Low 30.5 - 36.0 g/dL [facility] MCV (RBC) [Entitic vol] 72.6 fL Low 80.0 - 100.0 fL [facility] Monocytes (Bld) [#/Vol] 0.78 10*3/uL <0.87 k/uL [facility] Monocytes/100 WBC (Bld) 7.5 % [facility] ([facility]) [#/Vol] 6.62 10*3/uL 1.45 - 7.50 k/uL [facility] Neutrophils/100 WBC (Bld) 63.2 % [facility] Nucleated RBC (Bld) [#/Vol] <0.01 k/uL [facility] Nucleated RBC/100 WBC (Bld) [Ratio] 0.0 /100 WBC [facility] Platelet mean volume (Bld) [Entitic vol] 10.1 fL 9.0 - 12.7 fL [facility] Platelets (Bld) [#/Vol] 331 10*3/uL 150 - 400 k/uL [facility] RBC (Bld) [#/Vol] 6.56 10*6/uL High 3.90 - 5.2 0 m/uL [facility] WBC (Bld) [#/Vol] 10.46 10*3/uL 3.70 - 11.00 k/uL [facility] UA DIP, URINE (POC)on 2022 BILIRUBIN UA (POCT) Negative Negative [facility] CLARITY UA (POCT) Slightly Cloudy Cl [facility] COLOR UA (POCT) Yellow [facility] GLUCOSE UA (POCT) Negative Negative mg/dL [facility] Hemoglobin Ql (U) Small Abnormal Negative [facility] KETONE UA (POCT) Negative Negative mg/dL [facility] LEUKOCYTES UA (POCT) Large Abnormal Negative [facility] NITRITE UA (POCT) Negative Negative [facility] PH UA (POCT) 8.0 4.5 - 8.0 [facility] Protein Ql (U) Negative Negative mg/dL [facility] SPECIFIC GRAVITY UA (POCT) 1.015 1.005 - 1.030 [facility] UROBILINOGEN UA (POCT) 0.2 E.U./dL Bria l E.U./dL [facility] US DUP LOWER EXTREMITIES DEYA ATERAL [...] Evans Louis DO 06/03/22 Final result Normal [facility] Comment on above: Order Comment: Reaso n for exam:->R>L LE swelling What reading provider will be dictating this exam?->CRC No evidence of DVT in either lower extremity given the limitations described. [facility] EXAMINATION: DUPLEX VENOUS ULTRASOUND OF [...] normal color flow study and spectral analysis. [facility] Evans Louis, DO - 06/03/2022 [...] either lower extremity given the limitations described. [facility] [employer] Phone: Radiology Study observation (narrative) [email or web address] Phone: US DUP LOWER EXTREMITIES DEYA ATERAL VENOUSOrdered By: Evans Louis on 06-03-2022 [facility] Phone: BNPon 05-20-2022 Natriuretic peptide B (Bld) [Mass/Vol] 74 pg/mL Normal 0-125 [facility] CBC With Platelet and Differ entialon 05-20-2022 Absolute Basophils 0.00 E9/L Normal 0.00-0.20 [facility] Absolute Eosinophils 0.00 E9/L Low 0.05-0.50 [facility] Absolute Lymphocytes 2.15 E9/L Normal 1.50-4.00 [facility] Absolute Monocytes 0.68 E9/L Normal 0.10-0.95 [facility] Absolute Neutrophils 8.48 E9/L High 1.80-7.30 [facility] Anisocytosis Ql (Bld) 1+ Normal [facility] Basophils/100 WBC (Bld) 0.1 % Normal 0.0-2.0 [facility] Eosinophils/100 WBC (Bld) 0.0 % Normal 0.0-6.0 [facility] Lymphocytes/100 WBC (Bld) 18.7 % Low 20.0-42.0 [facility] Metamyelocytes 3.4 % High 0.0-1.0 [facility] Monocytes/100 WBC (Bld) 5.9 % Normal 2.0-12.0 [facility] Neutrophils/100 WBC (Bld) 72.0 % Normal 43.0-80.0 [facility] Ovalocytes 2+ Normal [facility] Poikilocytosis 2+ Normal [facility] Polychromasia 1+ Normal [facility] Tear Drop Cells 2+ Normal [facility] Hematocrit (Bld) [Volume fraction] 42.1 % Normal 34.0-48.0 [facility] Hemoglobin (Bld) [Mass/Vol] 11.5 g/dL Normal 11.5-15.5 [facility] MCH (RBC) [Entitic mass] 19.6 pg Low 26.0-35.0 [facility] MCHC 27.3 % Low 32.0-34.5 [facility] MCV (RBC) [Entitic vol] 71.6 fL Low 80.0-99.9 [facility] Platelet Count 360 E9/L Normal 130-450 [facility] Platelet mean volume (Bld) [Entitic vol] 10.1 fL Normal 7.0-12.0 [facility] RBC 5.88 E12/L High 3.50-5.50 [facility] RDW 19.7 fL High 11.5-15.0 [facility] WBC 11.3 E9/L Normal 4.5-11.5 [facility] Comprehensive Metabolic Pane stuart 05-20-2022 Albumin [Mass/Vol] 4.1 g/dL Normal 3.5-5.2 [facility] ALP [Catalytic activity/Vol] 108 U/L High 35-104 [facility] ALT [Catalytic activity/Vol] 9 U/L Normal 0-32 [facility] Anion gap [Moles/Vol] 13 mmol/L Normal 7-16 [facility] AST [Catalytic activity/Vol] 18 U/L Normal 0-31 [facility] Bilirubin [Mass/Vol] 0.3 mg/dL Normal 0.0-1.2 [facility] Calcium [Mass/Vol] 9.1 mg/dL Normal 8.6-10.2 [facility] Chloride [Moles/Vol] 102 mmol/L Normal 98-107 [facility] CO2 [Moles/Vol] 27 mmol/L Normal 22-29 [facility] Creatinine [Mass/Vol] 0.7 mg/dL Normal 0.5-1.0 [facility] GFR Calculated >60 Normal >=60 [facility] Comment on above: Result Comment: Robbie [...] secretion. Glucose [Mass/Vol] 93 mg/dL Normal 74-99 [facility] Potassium [Moles/Vol] 4.5 mmol/L Normal 3.5-5.0 [facility] Protein [Mass/Vol] 6.6 g/dL Normal 6.4-8.3 [facility] Sodium [Moles/Vol] 142 mmol/L Normal 132-146 [facility] Urea nitrogen [Mass/Vol] 7 mg/dL Normal 6-20 [facility] MYCOon 12-16-2021 Mycoplasma IgG equiv Normal [facility] ([place]) Comment on above: Result Comment: INTE RPRETATION OF MYCOPLASMA BY EIA (Effective 05/13/04): Negative No detectable antibodies to M. pneumoniae. Indicates absence of current or previous infection. Positive Reactive for antibodies to M. pneumoniae. Indicates a past or recent infection. Equivocal Equivocal for antibodies to M. pneumoniae. Repeat testing by an alternate method suggested. Performed By: #### G , SJ #### [address] [address] .GFRon 12-14-2021 GFR >60 Normal [facility] ([place]) Comment on above: Result Comment: GFR Population [...] Performed By: #### G , BMP #### [address] [address] GFR Non- >60 Normal [facility] ([place]) Comment on above: Result Comment: GFR Population [...] Performed By: #### Terrell KNIGHT, BMP #### [address] [address] BMPon 12-14-2021 CO2 [Moles/Vol] mmol/L Critically abnormal 22-32 [facility] ([place]) Comment on above: Performed By: #### Terrell KNIGHT, BMP #### [address] [address] Electrolyte Balance Unable to Calculate Normal 4.0-15. 0 [facility] ([place]) Comment on above: Result Comment: Unab le to calculate this test result accurately. Results used to calculate this test are outside the reportable range. Performed By: #### Terrell KNIGHT, BMP #### [address] [address] BUN/Creatinine Ratio 20.8 ratio Normal 10.0-22.0 [facility] ([place]) Comment on above: Performed By: #### Terrell KNIGHT, BMP #### [address] [address] Calcium [Mass/Vol] 8.8 mg/dL Normal 8.7-10.4 [facility] ([place]) Comment on above: Performed By: #### Terrell KNIGHT, BMP #### [address] [address] Chloride [Moles/Vol] 97 mmol/L Low 98-110 [facility] ([place]) Comment on above: Performed By: #### Terrell KNIGHT, BMP #### [address] [address] Creatinine [Mass/Vol] 0.72 mg/dL Normal 0.50-1.20 [facility] ([place]) Comment on above: Performed By: #### Terrell KNIGHT, BMP #### [address] [address] Glucose [Mass/Vol] 80 mg/dL Normal 70-110 [facility] ([place]) Comment on above: Performed By: #### G , BMP #### [address] [address] Potassium [Moles/Vol] 4.0 mmol/L Normal 3.5-5.0 [facility] ([place]) Comment on above: Performed By: #### G , BMP #### [address] [address] Sodium [Moles/Vol] 145 mmol/L Normal 136-145 [facility] ([place]) Comment on above: Performed By: #### Terrell KNIGHT, BMP #### [address] [address] Urea nitrogen [Mass/Vol] 15.0 mg/dL Normal 8.0-22.0 [facility] ([place]) Comment on above: Performed By: #### Terrell KNIGHT, BMP #### [address] [address] LABORATORYOrdered By: SYSTEM SYSTEM on 12-14-2021 Calcium [...] range. MYCOon 12-14-2021 Mycoplasma IgM Negative Normal [facility] ([place]) Comment on above: Result Comment: INTE RPRETATION OF MYCOPLASMA BY EIA (Effective 05/13/04): Negative No detectable antibodies to M. pneumoniae. Indicates absence of current or previous infection. Positive Reactive for antibodies to M. pneumoniae. Indicates a past or recent infection. Equivocal Equivocal for antibodies to M. pneumoniae. Repeat testing by an alternate method suggested. Performed By: #### G , BMP #### [address] [address] .Auto Diffon 12-13-2021 Basophil, Absolute 0.0 10 3/mcL Normal 0.0-0.3 [facility] ([place]) Comment on above: Performed By: #### G FR, BMP #### [address] [address] Basophils/100 WBC (Bld) 0.0 % Normal 0.0-2.5 [facility] ([place]) Comment on above: Performed By: #### G FR, BMP #### [address] [address] Eosinophil, Absolute 0.0 10 3/mcL Normal 0.0-0.7 [facility] ([place]) Comment on above: Performed By: #### G FR, BMP #### [address] [address] Eosinophils/100 WBC (Bld) 0.0 % Normal 0.0-6.0 [facility] ([place]) Comment on above: Performed By: #### G FR, BMP #### [address] [address] Lymphocyte, Absolute 1.0 10 3/mcL Normal 0.9-4.3 [facility] ([place]) Comment on above: Performed By: #### G FR, BMP #### [address] [address] Lymphocytes/100 WBC (Bld) 12.2 % Low 20.0-40.0 [facility] ([place]) Comment on above: Performed By: #### G FR, BMP #### [address] [address] Monocyte, Absolute 0.3 10 3/mcL Normal 0.1-1.4 [facility] ([place]) Comment on above: Performed By: #### G FR, BMP #### [address] [address] Monocytes/100 WBC (Bld) 3.8 % Normal 2.0-13.0 [facility] ([place]) Comment on above: Performed By: #### G FR, BMP #### [address] [address] Neutrophils/100 WBC (Bld) 84.0 % High 50.0-75.0 [facility] ([place]) Comment on above: Performed By: #### G FR, BMP #### [address] [address] .GFRon 12-13-2021 GFR >60 Normal [facility] ([place]) Comment on above: Result Comment: GFR Population [...] Performed By: #### Terrell KNIGHT, BMP #### [address] [address] GFR Non- >60 Normal [facility] ([place]) Comment on above: Result Comment: GFR Population [...] Performed By: #### Terrell KNIGHT, BMP #### [address] [address] .MDWon 12-13-2021 Monocyte Distribution Width Not performed Normal 0.00-20.00 [facility] ([place]) Comment on above: Result Comment: MDW testing performed only on adult ER patients between the ages of 18-89 years. Performed By: #### Terrell KNIGHT, BMP #### [address] [address] .Morphon 12-13-2021 Platelet Estimate Normal Normal [facility] ([place]) Comment on above: Performed By: #### Terrell KNIGHT, BMP #### [address] [address] Anisocytosis Ql (Bld) 1+ Normal [facility] ([place]) Comment on above: Performed By: #### Terrell KNIGHT, BMP #### [address] [address] Hypochrom 1+ Normal [facility] ([place]) Comment on above: Performed By: #### Terrell KNIGHT, BMP #### [address] [address] Microcytosis 2+ Normal [facility] ([place]) Comment on above: Performed By: #### Terrell KNIGHT, BMP #### [address] [address] Ovalocytes 1+ Normal [facility] ([place]) Comment on above: Performed By: #### G , BMP #### [address] [address] Poik 1+ Normal [facility] ([place]) Comment on above: Performed By: #### Terrell KNIGHT, BMP #### [address] [address] .NEUABSon 12-13-2021 Neutrophil, Absolute 7.0 10 3/mcL Normal 2.3-8.1 [facility] ([place]) Comment on above: Performed By: #### Terrell KNIGHT, BMP #### [address] [address] BMPon 12-13-2021 CO2 [Moles/Vol] mmol/L Critically abnormal 22-32 [facility] ([place]) Comment on above: Performed By: #### Terrell KNIGHT, BMP #### [place] [address] Electrolyte Balance Unable to Calculate Normal 4.0-15. 0 [facility] ([place]) Comment on above: Result Comment: Unab le to calculate this test result accurately. Results used to calculate this test are outside the reportable range. Performed By: #### Terrell KNIGHT, BMP #### [address] [address] BUN/Creatinine Ratio 21.3 ratio Normal 10.0-22.0 [facility] ([place]) Comment on above: Performed By: #### Terrell KNIGHT, BMP #### [address] [address] Calcium [Mass/Vol] 9.4 mg/dL Normal 8.7-10.4 [facility] ([place]) Comment on above: Performed By: #### Terrell KNIGHT, BMP #### Marta [address] [address] Chloride [Moles/Vol] 94 mmol/L Low 98-110 [facility] ([place]) Comment on above: Performed By: #### Terrell KNIGHT, BMP #### Marta [address] [address] Creatinine [Mass/Vol] 0.61 mg/dL Normal 0.50-1.20 [facility] ([place]) Comment on above: Performed By: #### Terrell KNIGHT, BMP #### [address] [address] Glucose [Mass/Vol] 105 mg/dL Normal 70-110 [facility] ([place]) Comment on above: Performed By: #### Terrell KNIGHT, BMP #### [address] [address] Potassium [Moles/Vol] 4.8 mmol/L Normal 3.5-5.0 [facility] ([place]) Comment on above: Performed By: #### Terrell KNIGHT, BMP #### [address] [address] Sodium [Moles/Vol] 144 mmol/L Normal 136-145 [facility] ([place]) Comment on above: Performed By: #### Terrell KNIGHT, BMP #### [address] [address] Urea nitrogen [Mass/Vol] 13.0 mg/dL Normal 8.0-22.0 [facility] ([place]) Comment on above: Performed By: #### Terrell KNIGHT, BMP #### [address] [address] CBCon 12-13-2021 Erythrocyte distribution width (RBC) [Ratio] 19.1 % High 11.5-15.5 [facility] ([place]) Comment on above: Performed By: #### Terrell KNIGHT, BMP #### Marta [address] [address] Hematocrit (Bld) [Volume fraction] 35.8 % Normal 34.0-46.0 [facility] ([place]) Comment on above: Performed By: #### Terrell KNIGHT, BMP #### [address] [address] Hgb 10.0 G/dL Low 12.0-16.0 [facility] ([place]) Comment on above: Performed By: #### Terrell KNIGHT, BMP #### Marta [address] [address] MCH (RBC) [Entitic mass] 19.5 pg Low 27.0-33.0 [facility] ([place]) Comment on above: Performed By: #### Terrell KNIGHT, BMP #### [address] [address] MCHC 27.9 G/dL Low 32.0-36.0 [facility] ([place]) Comment on above: Performed By: #### Terrell KNIGHT, BMP #### Marta [address] [address] MCV (RBC) [Entitic vol] 69.7 fL Low 80.0-99.0 [facility] ([place]) Comment on above: Performed By: #### Terrell KNIGHT, BMP #### [address] [address] Platelet 255 10 3/mcL Normal 150-450 [facility] ([place]) Comment on above: Performed By: #### Terrell KNIGHT, BMP #### [address] [address] Platelet mean volume (Bld) [Entitic vol] 7.6 fL Normal 6.6-10.5 [facility] ([place]) Comment on above: Performed By: #### Terrell KNIGHT, BMP #### Marta [address] [address] RBC 5.13 10 6/mcL Normal 4.10-5.30 [facility] ([place]) Comment on above: Performed By: #### Terrell KNIGHT, BMP #### Marta [address] [address] WBC 8.4 10 3/mcL Normal 4.5-10.8 [facility] ([place]) Comment on above: Performed By: #### Terrell KNIGHT, BMP #### [address] [place], [place] [address] LABORATORYOrdered By: SYSTEM SYSTEM on 12-13-2021 Anisocytosis [...] 12-13-2021 Magnesium [Mass/Vol] 2.0 mg/dL Normal 1.6-2.4 [facility] ([place]) Comment on above: Performed By: #### G , SJ #### [address] [place], [place] [address] MYCOon 12-13-2021 Mycoplasma IgM Negative Normal [facility] ([place]) Comment on above: Result Comment: INTE RPRETATION OF MYCOPLASMA BY EIA (Effective 05/13/04): Negative No detectable antibodies to M. pneumoniae. Indicates absence of current or previous infection. Positive Reactive for antibodies to M. pneumoniae. Indicates a past or recent infection. Equivocal Equivocal for antibodies to M. pneumoniae. Repeat testing by an alternate method suggested. Performed By: #### G , SJ #### [address] [address] No Panel Informationon 12-13 Legionella Urine Ag Presumptive negative for L. pneumophila serogroup 1 antigen in urine, suggesting no recent or current infection. Legionnaire's disease cannot be ruled out since other serogroups and species may also cause disease. [facility] Streptococcus Pneumoniae Urine Antig Presumptive negative for pneumococcal pneumonia, suggesting no current or recent pneumococcal infection. Infection due to Strep pneumoniae cannot be ruled out since the antigen present in the sample may be below the detection limit of the test. [facility] Comment on above: This test has not be en evaluated on patients taking antibiotics for greater than 24 hours or on patients who have recently completed an antibiotic regimen. The accuracy of this test has not been proven in young children. VBGon 12-13-2021 BE Venous 13.6 mmol/L High -3.0-3.0 [facility] ([place]) Comment on above: Performed By: #### G , SJ #### [address] [id number] [place], [place] [address] HCO3 (Bld) [Moles/Vol] 41.9 mmol/L High 21.0-30.0 [facility] ([place]) Comment on above: Performed By: #### Terrell KNIGHT, BMP #### [address] [address] pCO2 Silvino 68.4 mmHg High 41.0-51.0 [facility] ([place]) Comment on above: Performed By: #### Terrell KNIGHT, BMP #### Marta [address] [address] pH Venous 7.405 Normal 7.380-7.460 [facility] ([place]) Comment on above: Performed By: #### Terrell KNIGHT, BMP #### Marta [address] [address] pO2 Silvino 195.0 mmHg High 35.0-40.0 [facility] ([place]) Comment on above: Performed By: #### Terrell KNIGHT, BMP #### Mart[place] [address] [address] TCO2 Venous 99.3 % High 70.0-75.0 [facility] ([place]) Comment on above: Performed By: #### Terrell KNIGHT, BMP #### [address] [address] .GFRon 12-12-2021 GFR 155 ml/min/1.73sqm Normal [facility] ([place]) Comment on above: Result Comment: GFR Population [...] Performed By: #### Terrell KNIGHT, BMP #### [address] [address] GFR Non- 128 ml/min/1.73sqm Normal [facility] ([place]) Comment on above: Result Comment: GFR Population [...] Performed By: #### G FR, BMP #### [address] [address] GFR 155 ml/min/1.73sqm Normal [facility] ([place]) Comment on above: Result Comment: GFR Population [...] Performed By: #### G FR, BMP #### [address] [address] GFR Non- 128 ml/min/1.73sqm Normal [facility] ([place]) Comment on above: Result Comment: GFR Population [...] By: #### G FR, BMP #### Marta [place] [id number] [place], [place] [address] .MDWon 12-12-2021 Monocyte Distribution Width Not performed Normal 0.00-20.00 [facility] ([place]) Comment on above: Result Comment: MDW testing performed only on adult ER patients between the ages of 18-89 years. .Manual Diffon 12-12-2021 Bands 5.0 % Normal 0.0-5.0 [facility] ([place]) Basophil %, Manual 0.0 % Normal 0.0-2.5 [facility] ([place]) Basophil, Abs Manual 0.0 10 3/mcL Normal 0.0-0.2 [facility] ([place]) Eosinophil %, Manual 0.0 % Normal 0.0-7.0 [facility] ([place]) Eosinophil, Abs Manual 0.0 10 3/mcL Normal 0.0-0.4 [facility] ([place]) Lymphocyte %, Manual 14.0 % Normal 10.0-50.0 [facility] ([place]) Lymphocyte, Abs Manual 0.8 10 3/mcL Normal 0.8-3.9 [facility] ([place]) Monocyte %, Manual 1.0 % Low 1.7-13.0 [facility] ([place]) Monocyte, Abs Manual 0.1 10 3/mcL Low 0.2-1.0 [facility] ([place]) Neutrophil %, Manual 80.0 % Normal 37.0-80.0 [facility] ([place]) Neutrophil, Abs Manual 4.9 10 3/mcL Normal 2.9-6.2 [facility] ([place]) Nucleated RBC 0.0 /100 WBC Normal [facility] ([place]) .Morphon 12-12-2021 Anisocytosis Ql (Bld) 1+ Normal [facility] ([place]) Microcytosis 2+ Normal [facility] ([place]) Platelet Estimate Normal Normal [facility] ([place]) ABGon 12-12-2021 Base excess Calc (Bld) [Moles/Vol] 27.0 mmol/L High -2.4-2.3 [facility] ([place]) Comment on above: Performed By: #### A BG #### [address] [address] CO2 Totl >50 High 19-24 [facility] ([place]) Comment on above: Performed By: #### A BG #### [address] [address] HCO3 (Bld) [Moles/Vol] 53.1 mmol/L Criticall y abnormal 22.0-26.0 [facility] ([place]) Comment on above: Performed By: #### A BG #### [address] [address] Oxygen (Bld) [Partial pressure] 83.0 mm[Hg] Normal 80.0-100.0 [facility] ([place]) Comment on above: Performed By: #### A BG #### [address] [address] Oxygen saturation in Blood 94 % Low 95-98 [facility] ([place]) Comment on above: Performed By: #### A BG #### [address] [address] pCO2 98.6 mmHg Critically abnormal 35.0-45.0 [facility] ([place]) Comment on above: Performed By: #### A BG #### [address] [address] pH (Bld) 7.34 [pH] Low 7.35-7.45 [facility] ([place]) Comment on above: Performed By: #### A BG #### [address] [address] Base excess Calc (Bld) [Moles/Vol] 29.0 mmol/L High -2.4-2.3 [facility] ([place]) Comment on above: Performed By: #### A BG #### [address] [address] CO2 Totl >50 High 19-24 [facility] ([place]) Comment on above: Performed By: #### A BG #### [address] [address] HCO3 (Bld) [Moles/Vol] 54.3 mmol/L Criticall y abnormal 22.0-26.0 [facility] ([place]) Comment on above: Performed By: #### A BG #### [address] [address] Oxygen (Bld) [Partial pressure] 78.0 mm[Hg] Low 80.0-100.0 [facility] ([place]) Comment on above: Performed By: #### A BG #### [address] [address] Oxygen saturation in Blood 93 % Low 95-98 [facility] ([place]) Comment on above: Performed By: #### A BG #### [address] [address] pCO2 99.6 mmHg Critically abnormal 35.0-45.0 [facility] ([place]) Comment on above: Performed By: #### A BG #### [address] [address] pH (Bld) 7.34 [pH] Low 7.35-7.45 [facility] ([place]) Comment on above: Performed By: #### A BG #### [address] [address] Base excess Calc (Bld) [Moles/Vol] 26.0 mmol/L High -2.4-2.3 [facility] ([place]) Comment on above: Performed By: #### G FR, BMP #### [address] [address] CO2 Totl >50 High 19-24 [facility] ([place]) Comment on above: Performed By: #### Terrell KNIGHT, BMP #### [address] [address] HCO3 (Bld) [Moles/Vol] 52.0 mmol/L Criticall y abnormal 22.0-26.0 [facility] ([place]) Comment on above: Performed By: #### Terrell KNIGHT, BMP #### [address] [address] Oxygen (Bld) [Partial pressure] 53.0 mm[Hg] Low 80.0-100.0 [facility] ([place]) Comment on above: Performed By: #### Terrell KNIGHT, BMP #### [address] [address] Oxygen saturation in Blood 81 % Low 95-98 [facility] ([place]) Comment on above: Performed By: #### Terrell KNIGHT, BMP #### [address] [address] pCO2 100.1 mmHg Critically abnormal 35.0-45.0 [facility] ([place]) Comment on above: Performed By: #### Terrell KNIGHT, BMP #### [address] [address] pH (Bld) 7.32 [pH] Low 7.35-7.45 [facility] ([place]) Comment on above: Performed By: #### Terrell KNIGHT, BMP #### [address] [address] Base excess Calc (Bld) [Moles/Vol] 27.0 mmol/L High -2.4-2.3 [facility] ([place]) Comment on above: Performed By: #### Terrell KNIGHT, BMP #### [address] [address] CO2 Totl >50 High 19-24 [facility] ([place]) Comment on above: Performed By: #### Terrell KNIGHT, BMP #### [address] [address] HCO3 (Bld) [Moles/Vol] 52.7 mmol/L Criticall y abnormal 22.0-26.0 [facility] ([place]) Comment on above: Performed By: #### Terrell KNIGHT, BMP #### [address] [address] Oxygen (Bld) [Partial pressure] 52.0 mm[Hg] Low 80.0-100.0 [facility] ([place]) Comment on above: Performed By: #### Terrell KNIGHT, BMP #### [address] [address] Oxygen saturation in Blood 81 % Low 95-98 [facility] ([place]) Comment on above: Performed By: #### Terrell KNIGHT, BMP #### [address] [address] pCO2 94.8 mmHg Critically abnormal 35.0-45.0 [facility] ([place]) Comment on above: Performed By: #### Terrell KNIGHT, BMP #### [address] [address] pH (Bld) 7.35 [pH] Normal 7.35-7.45 [facility] ([place]) Comment on above: Performed By: #### Terrell KNIGHT, BMP #### [address] [address] CAIONon 12-12-2021 Calcium Ionized 1.04 mmol/L Low 1.12-1.32 [facility]) Comment on above: Performed By: #### Terrell KNIGHT, BMP #### [address] [address] CBCon 12-12-2021 Erythrocyte distribution width (RBC) [Ratio] 19.7 % High 11.5-14.5 [facility] ([place]) Hematocrit (Bld) [Volume fraction] 34.9 % Low 37.0-47.0 [facility] ([place]) Hgb 10.1 G/dL Low 12.0-16.0 [facility] ([place]) MCH (RBC) [Entitic mass] 20.0 pg Low 27.0-31.2 [facility] ([place]) MCHC 28.8 G/dL Low 33.0-37.0 [facility] ([place]) MCV (RBC) [Entitic vol] 69.5 fL Low 80.0-94.0 [facility] ([place]) Platelet 231 10 3/mcL Normal 130-400 [facility] ([place]) Platelet mean volume (Bld) [Entitic vol] 7.5 fL Normal 7.4-10.4 [facility] ([place]) RBC 5.02 10 6/mcL Normal 4.20-5.40 [facility] ([place]) WBC 6.1 10 3/mcL Normal 4.6-10.8 [facility] ([place]) CMPon 12-12-2021 Albumin Level 3.0 G/dL Low 3.5-5.0 [facility] ([place]) Comment on above: Performed By: #### Terrell KNIGHT, BMP #### [address] [address] Albumin/Globulin [Mass ratio] 1.0 {ratio} Low 1.1-2.5 [facility] ([place]) Comment on above: Performed By: #### Terrell KNIGHT, BMP #### [address] [address] ALP [Catalytic activity/Vol] 95 U/L Normal 40-135 [facility] ([place]) Comment on above: Performed By: #### Terrell KNIGHT, BMP #### [address] [address] ALT [Catalytic activity/Vol] 16 U/L Normal 14-59 [facility] ([place]) Comment on above: Performed By: #### G FR, BMP #### [address] [address] AST [Catalytic activity/Vol] 11 U/L Normal 10-40 [facility] ([place]) Comment on above: Performed By: #### G FR, BMP #### [address] [address] Bili Total 0.2 mg/dL Normal 0.2-1.0 [facility] ([place]) Comment on above: Result Comment: Use of this assay is not recommended for patients undergoing treatment with eltrombopag due to the potential for falsely elevated results. Performed By: #### Terrell KNIGHT, BMP #### [address] [address] BUN/Creatinine Ratio 14 ratio Normal 7-27 [facility] ([place]) Comment on above: Performed By: #### Terrell KNIGHT, BMP #### [address] [address] Calcium [Mass/Vol] 8.9 mg/dL Normal 8.4-10.2 [facility] ([place]) Comment on above: Performed By: #### Terrell KNIGHT, BMP #### [address] [address] Chloride [Moles/Vol] 98 mmol/L Normal 98-107 [facility] ([place]) Comment on above: Performed By: #### Terrell KNIGHT, BMP #### [address] [address] CO2 [Moles/Vol] mmol/L Critically abnormal 22-29 [facility] ([place]) Comment on above: Performed By: #### Terrell KNIGHT, BMP #### [address] [address] Creatinine [Mass/Vol] 0.56 mg/dL Normal 0.55-1.02 [facility] ([place]) Comment on above: Performed By: #### Terrell KNIGHT, BMP #### [address] [address] Electrolyte Balance Unable to Calculate Normal 4.0-15. 0 [facility] ([place]) Comment on above: Result Comment: Unab le to calculate this test result accurately. Results used to calculate this test are outside the reportable range. Performed By: #### Terrell KNIGHT, BMP #### [address] [address] Globulin 2.9 G/dL Normal [facility] ([place]) Comment on above: Performed By: #### Terrell KNIGHT, BMP #### [address] [address] Glucose [Mass/Vol] 128 mg/dL High 70-105 [facility] ([place]) Comment on above: Performed By: #### Terrell KNIGHT, BMP #### [address] [address] Potassium [Moles/Vol] 5.0 mmol/L Normal 3.5-5.1 [facility] ([place]) Comment on above: Performed By: #### G , BMP #### [address] [address] Sodium [Moles/Vol] 145 mmol/L Normal 136-145 [facility] ([place]) Comment on above: Performed By: #### Terrell KNIGHT, BMP #### [address] [address] Total Protein 5.9 G/dL Low 6.4-8.2 [facility] ([place] Comment on above: Performed By: #### Terrell KNIGHT, BMP #### [address] [address] Urea nitrogen [Mass/Vol] 8 mg/dL Normal 7-18 [facility] ([place] Comment on above: Performed By: #### Terrell KNIGHT, BMP #### [address] [address] Albumin Level 2.9 G/dL Low 3.5-5.0 [facility] ([place] Comment on above: Performed By: #### Terrell KNIGHT, BMP #### [address] [address] Albumin/Globulin [Mass ratio] 1.0 {ratio} Low 1.1-2.5 [facility] ([place]) Comment on above: Performed By: #### G , BMP #### [address] [address] ALP [Catalytic activity/Vol] 95 U/L Normal 40-135 [facility] ([place] Comment on above: Performed By: #### G , BMP #### [address] [address] ALT [Catalytic activity/Vol] 15 U/L Normal 14-59 [facility] ([place]) Comment on above: Performed By: #### Terrell KNIGHT, BMP #### [address] [address] AST [Catalytic activity/Vol] 10 U/L Normal 10-40 [facility] ([place]) Comment on above: Performed By: #### Terrell KNIGHT, BMP #### [address] [address] Bili Total 0.2 mg/dL Normal 0.2-1.0 [facility] ([place]) Comment on above: Result Comment: Use of this assay is not recommended for patients undergoing treatment with eltrombopag due to the potential for falsely elevated results. Performed By: #### Terrell KNIGHT, BMP #### [address] [address] BUN/Creatinine Ratio 12 ratio Normal 7-27 [facility] ([place]) Comment on above: Performed By: #### Terrell KNIGHT, BMP #### [address] [address] Calcium [Mass/Vol] 9.0 mg/dL Normal 8.4-10.2 [facility] ([place]) Comment on above: Performed By: #### Terrell KNIGHT, BMP #### [address] [address] Chloride [Moles/Vol] 99 mmol/L Normal 98-107 [facility] ([place]) Comment on above: Performed By: #### Terrell KNIGHT, BMP #### [address] [address] CO2 [Moles/Vol] mmol/L Critically abnormal 22-29 [facility] ([place]) Comment on above: Performed By: #### Terrell KNIGHT, BMP #### [address] [address] Creatinine [Mass/Vol] 0.56 mg/dL Normal 0.55-1.02 [facility] ([place]) Comment on above: Performed By: #### Terrell KNIGHT, BMP #### [address] [address] Electrolyte Balance Unable to Calculate Normal 4.0-15. 0 [facility] ([place]) Comment on above: Result Comment: Unab le to calculate this test result accurately. Results used to calculate this test are outside the reportable range. Performed By: #### Terrell KNIGHT, BMP #### [address] [address] Globulin 2.8 G/dL Normal [facility] ([place]) Comment on above: Performed By: #### Terrell KNIGHT, BMP #### Marta [address] [address] Glucose [Mass/Vol] 142 mg/dL High 70-105 [facility] ([place]) Comment on above: Performed By: #### Terrell KNIGHT, BMP #### [address] [address] Potassium [Moles/Vol] 5.0 mmol/L Normal 3.5-5.1 [facility]) Comment on above: Performed By: #### Terrell KNIGHT, BMP #### [address] [address] Sodium [Moles/Vol] 145 mmol/L Normal 136-145 [facility] ([place]) Comment on above: Performed By: #### Terrell KNIGHT, BMP #### Marta [address] [address] Total Protein 5.7 G/dL Low 6.4-8.2 [facility] ([place]) Comment on above: Performed By: #### Terrell KNIGHT, BMP #### Marta [address] [address] Urea nitrogen [Mass/Vol] 7 mg/dL Normal 7-18 [facility] ([place]) Comment on above: Performed By: #### Terrell KNIGHT, BMP #### [address] [address] [id number] 12-12-2021 Date of Onset 20211211 Invalid Interpretation Code [facility] ([place]) Comment on above: Performed By: #### Terrell KNIGHT, BMP #### Marta [address] [address] Employed in Healthcare Unknown [facility] ([place]) Comment on above: Performed By: #### G FR, BMP #### [place] [address] First Test Unknown [facility] ([place]) Comment on above: Performed By: #### G FR, BMP #### [place] [address] Hospitalized Yes On license of [facility] ([place]) Comment on above: Performed By: #### G FR, BMP #### [place] [address] ICU No [facility] ([place]) Comment on above: Performed By: #### G FR, BMP #### [place] [address] Not On license of [facility] ([place]) Comment on above: Performed By: #### G FR, BMP #### [place] [address] Resides in Congregate Care Setting No [facility] ([place]) Comment on above: Performed By: #### G FR, BMP #### [place] [address] SARS-CoV-2 (COVID-19) RNA GUNJAN+probe Ql (Unsp spec) Negative Normal Negative [facility] ([place]) Comment on above: Performed By: #### G FR, BMP #### [place] [address] SARS-CoV-2 (COVID-19) RNA GUNJAN+probe Ql (Unsp spec) Normal [facility] ([place]) Comment on above: Result Comment: Nega tive [...] Performed By: #### G , SJ #### [place] [address] Symptomatic as Defined by [facility] Yes Normal [facility] ([place]) Comment on above: Performed By: #### G , SJ #### [address] [address] DIMERon 12-12-2021 D-Dimer <200 Normal 0-230 [facility] ([place]) Comment on above: Result Comment: The result [...] Performed By: #### G , BMP #### [address] [address] Kp 12-12-2021 Potassium [Moles/Vol] 5.0 mmol/L Normal 3.5-5.1 [facility] ([place]) Comment on above: Performed By: #### G , BMP #### [address] [address] LABORATORYOrdered By: Lauren He on 12-12-2021 Base [...] Invalid Interpretation Code 70 - 110 mg/dL [facility] MGon 12-12-2021 Magnesium [Mass/Vol] 2.1 mg/dL Normal 1.8-2.4 [facility] ([place]) Comment on above: Performed By: #### Terrell KNIGHT BMP #### [address] [address] PHOSon 12-12-2021 Phosphate [Mass/Vol] 3.0 mg/dL Normal 2.7-4.5 [facility] ([place]) Comment on above: Performed By: #### Terrell KNIGHT, BMP #### [address] [address] TOXSCon 12-12-2021 U Ampheta (AO) Negative Normal [facility] ([place]) Comment on above: Performed By: #### Terrell KNIGHT, BMP #### [address] [address] U Jessica (AO) Negative [facility] ([place]) Comment on above: Performed By: #### G FR, BMP #### Marta [address] [address] U Elder (AO) Negative [facility] ([place]) Comment on above: Performed By: #### G FR, BMP #### Marta [address] [address] U Cannab (AO) Negative [facility] ([place]) Comment on above: Performed By: #### G FR, BMP #### Marta [address] [address] U Cocaine (AO) Negative [facility] ([place]) Comment on above: Performed By: #### G FR, BMP #### Marta [address] [address] U Methadone (AO) Negative [facility] ([place]) Comment on above: Performed By: #### G FR, BMP #### Marta [address] [address] U PCP (AO) Negative [facility] ([place]) Comment on above: Performed By: #### G FR, BMP #### Marta [address] [address] U TCA (AO) Negative [facility] ([place]) Comment on above: Performed By: #### G FR, BMP #### Marta [address] [address] Urine Opiates (AO) Positive [facility] ([place]) Comment on above: Performed By: #### G FR, BMP #### [address] [address] TSHon 12-12-2021 TSH Qn 0.61 m[IU]/L Normal 0.36-3.74 [facility] ([place]) Comment on above: Performed By: #### T SH #### [address] [address] XR CHEST 1 VIEWon 12-12-2021 XR CHEST [...] 12/12/2021 5:53:12 AM Ordering Provider: LILIBETH Heaton [facility] ([place]) .Auto Diffon 12-11-2021 Basophil, Absolute 0.0 10 3/mcL Normal 0.0-0.2 [facility] ([place]) Comment on above: Performed By: #### G FR, BMP #### [address] [address] Basophils/100 WBC (Bld) 0.2 % Normal 0.0-2.5 [facility] ([place]) Comment on above: Performed By: #### G FR, BMP #### [address] [address] Eosinophil, Absolute 0.1 10 3/mcL Normal 0.0-0.4 [facility] ([place]) Comment on above: Performed By: #### G FR, BMP #### [address] [address] Eosinophils/100 WBC (Bld) 0.7 % Normal 0.0-7.0 [facility] ([place]) Comment on above: Performed By: #### G FR, BMP #### [address] [address] Lymphocyte, Absolute 1.0 10 3/mcL Normal 0.8-3.9 [facility] ([place]) Comment on above: Performed By: #### G FR, BMP #### [address] [address] Lymphocytes/100 WBC (Bld) 11.4 % Normal 10.0-50.0 [facility] ([place]) Comment on above: Performed By: #### G FR, BMP #### [address] [address] Monocyte, Absolute 0.4 10 3/mcL Normal 0.2-1.0 [facility] ([place]) Comment on above: Performed By: #### G FR, BMP #### [address] [address] Monocytes/100 WBC (Bld) 4.9 % Normal 1.7-13.0 [facility] ([place]) Comment on above: Performed By: #### Terrell FR, BMP #### [address] [address] Neutrophils/100 WBC (Bld) 82.8 % High 37.0-80.0 [facility] ([place]) Comment on above: Performed By: #### G , BMP #### [address] [address] .GFRon 12-11-2021 GFR 135 ml/min/1.73sqm Normal [facility] ([place]) Comment on above: Result Comment: GFR Population [...] Performed By: #### G FR, BMP #### [address] [address] GFR Non- 112 ml/min/1.73sqm Normal [facility] ([place]) Comment on above: Result Comment: GFR Population [...] Performed By: #### G , BMP #### [address] [address] .MDWon 12-11-2021 Monocyte Distribution Width 17.28 Normal 0.00-20.00 [facility] ([place]) Comment on above: Result Comment: For ED adult patients suspected of sepsis, MDW<=20.0 does not rule out sepsis or risk of sepsis Performed By: #### Terrell KNIGHT, BMP #### [address] [address] .Morphon 12-11-2021 Microcytosis 1+ Normal [facility] ([place]) Comment on above: Performed By: #### Terrell KNIGHT, BMP #### [address] [address] Platelet Estimate Normal Normal [facility] ([place]) Comment on above: Performed By: #### Terrell KNIGHT, BMP #### [address] [address] .NEUABSon 12-11-2021 Neutrophil, Absolute 7.4 10 3/mcL High 2.9-6.2 [facility] ([place]) Comment on above: Performed By: #### Terrell KNIGHT, BMP #### [address] [address] Lizy 12-11-2021 BUN/Creatinine Ratio 13 ratio Normal 7-27 [facility] ([place]) Comment on above: Performed By: #### Terrell KINGHT, BMP #### [address] [address] Calcium [Mass/Vol] 8.6 mg/dL Normal 8.4-10.2 [facility] ([place]) Comment on above: Performed By: #### Terrell KNIGHT, BMP #### [address] [address] Chloride [Moles/Vol] 100 mmol/L Normal 98-107 [facility] ([place]) Comment on above: Performed By: #### Terrell KNIGHT, BMP #### [address] [address] CO2 [Moles/Vol] mmol/L Critically abnormal 22-29 [facility] ([place]) Comment on above: Result Comment: repe ated and verified Performed By: #### Terrell KNIGHT, BMP #### [address] [address] Creatinine [Mass/Vol] 0.63 mg/dL Normal 0.55-1.02 [facility] ([place]) Comment on above: Performed By: #### Terrell KNIGHT, BMP #### [address] [address] Electrolyte Balance Unable to Calculate Normal 4.0-15. 0 [facility] ([place]) Comment on above: Result Comment: Unab le to calculate this test result accurately. Results used to calculate this test are outside the reportable range. Performed By: #### Terrell KNIGHT, BMP #### [address] [address] Glucose [Mass/Vol] 117 mg/dL High 70-105 [facility] ([place]) Comment on above: Performed By: #### Terrell KNIGHT, BMP #### [address] [address] Potassium [Moles/Vol] 5.3 mmol/L High 3.5-5.1 [facility] ([place]) Comment on above: Performed By: #### G FR, BMP #### [address] [address] Sodium [Moles/Vol] 147 mmol/L High 136-145 [facility] ([place]) Comment on above: Performed By: #### G FR, BMP #### [address] [address] Urea nitrogen [Mass/Vol] 8 mg/dL Normal 7-18 [facility] ([place]) Comment on above: Performed By: #### G , BMP #### [address] [address] CBCon 12-11-2021 Erythrocyte distribution width (RBC) [Ratio] 19.6 % High 11.5-14.5 [facility] ([place]) Comment on above: Performed By: #### G , BMP #### [address] [address] Hematocrit (Bld) [Volume fraction] 37.9 % Normal 37.0-47.0 [facility] ([place]) Comment on above: Performed By: #### G , BMP #### [address] [address] Hgb 11.0 G/dL Low 12.0-16.0 [facility] ([place]) Comment on above: Performed By: #### G , BMP #### [address] [address] MCH (RBC) [Entitic mass] 20.3 pg Low 27.0-31.2 [facility] ([place]) Comment on above: Performed By: #### G FR, BMP #### [address] [address] MCHC 29.1 G/dL Low 33.0-37.0 [facility] ([place]) Comment on above: Performed By: #### G FR, BMP #### [address] [address] MCV (RBC) [Entitic vol] 69.7 fL Low 80.0-94.0 [facility] ([place]) Comment on above: Performed By: #### G FR, BMP #### [place] [address] [place], [place] [address] Platelet 275 10 3/mcL Normal 130-400 [facility] ([place]) Comment on above: Performed By: #### G FR, BMP #### [facility] [address] [place], [place] [address] Platelet mean volume (Bld) [Entitic vol] 8.1 fL Normal 7.4-10.4 [facility] ([place]) Comment on above: Performed By: #### G FR, BMP #### [place] [address] [place], [place] [address] RBC 5.44 10 6/mcL High 4.20-5.40 [facility] ([place]) Comment on above: Performed By: #### G FR, BMP #### [address] [address] WBC 9.0 10 3/mcL Normal 4.6-10.8 [facility] ([place]) Comment on above: Performed By: #### G FR, BMP #### [address] [address] LABORATORYOrdered By: Audi Marin on 12-11-2021 ADMITTED [...] 12/11/2021 10:35:07 AM Ordering Provider: YONIS Heaton [facility] ([place]) CBC Auto DifferentialOrdered By: Dario Peña on 11-05-2020 Anisocytosis Ql (Bld) 2+ [employer] Work Phone: Basophils (Bld) [#/Vol] 0.00 10*3/uL [employer] Work Phone: Basophils/100 WBC (Bld) 0.0 % 0.0 - 2.0 % [employer] Phone: Eosinophils Absolute 0.08 [employer] Phone: Eosinophils/100 WBC (Bld) 0.9 % 0.0 - 6.0 % [employer] Phone: Hematocrit (Bld) [Volume fraction] 37.2 % 34.0 - 48.0 % [employer] Phone: Hemoglobin.gastrointest inal spec 1 Ql (Stl) 9.9 g/dL Low 11.5 - 15.5 g/dL [employer] Phone: Hypochromia 2+ [employer] Phone: Interpretation and review of laboratory results Abnormal [employer] Phone: Lymphocytes Absolute 1.45 Low [employer] Phone: Lymphocytes/100 WBC (Bld) 16.5 % Low 20.0 - 42.0 % [employer] Phone: MCH (RBC) [Entitic mass] 18.8 pg Low 26.0 - 35.0 pg [employer] Phone: MCHC (RBC) [Mass/Vol] 26.6 % Low 32.0 - 34.5 % [employer] Phone: MCV (RBC) [Entitic vol] 70.6 fL Low 80.0 - 99.9 fL [employer] Work Phone: Monocytes Absolute 0.34 [employer] Phone: Monocytes/100 WBC (Bld) 4.3 % 2.0 - 12.0 % [employer] Work Phone: Neutrophils Absolute 6.63 [employer] Phone: Neutrophils/100 WBC (Bld) 78.3 % 43.0 - 80.0 % [employer] Work Phone: nRBC 0.0 /100 WBC [employer] Phone: Ovalocytes 1+ [employer] Work Phone: Platelet distribution width (Bld) [Ratio] 18.6 fL High 11.5 - 15.0 fL [employer] Phone: Platelet mean volume (Bld) [Entitic vol] 9.7 fL 7.0 - 12.0 fL [employer] Work Phone: Platelets (Bld) [#/Vol] 351 10*3/uL [employer] Work Phone: Poikilocytes 1+ [employer] Work Phone: Polychromasia 2+ [facility] Work Phone: RBC (Bld) [#/Vol] 5.27 10*6/uL [employer] Work Phone: Stomatocytes 1+ [employer] Work Phone: Tear Drop Cells 1+ [facility] Work Phone: WBC (Bld) [#/Vol] 8.5 10*3/uL [employer] Work Phone: [employer] Work Phone: COVID-19, RapidOrdered By: Sergio Peña on 11-05-2020 SARS-CoV-2 (COVID-19) RNA GUNJAN+probe Ql (Unsp spec) Not detected Not Detected [employer] Phone: Comment on above: Rapid NAAT: Negative [...] authorized laboratories. Fact sheet for Healthcare Providers: https://www.fda.gov/media/476659/download Fact sheet for Patients: https://www.fda.gov/media/508426/download METHODOLOGY: Isothermal Nucleic Acid Amplification [employer] Phone: Comprehensive Metabolic Pane l w/ Reflex to MGOrdered By: Dario Peña on 11-05-2020 Albumin [Mass/Vol] 3.2 g/dL Low 3.5 - 5.2 g/dL [employer] Phone: ALP (Bld) [Catalytic activity/Vol] 82 U/L 35 - 104 U/L [employer] Phone: ALT [Catalytic activity/Vol] 8 U/L 0 - 32 U/L [employer] Phone: Anion gap [Moles/Vol] 6 mmol/L Low 7 - 16 mmol/L [employer] Phone: AST [Catalytic activity/Vol] 13 U/L 0 - 31 U/L [employer] Phone: Bilirubin [Mass/Vol] 0.3 mg/dL 0.0 - 1 .2 mg/dL [employer] Phone: Calcium [Mass/Vol] 8.9 mg/dL 8.6 - 10. 2 mg/dL [employer] Phone: Chloride [Moles/Vol] 101 mmol/L 98 - 10 7 mmol/L [employer] Phone: CO2 [Moles/Vol] 30 mmol/L High 22 - 29 mmol/L [employer] Phone: Creatinine [Mass/Vol] 0.8 mg/dL 0.5 - 1.0 mg/dL [employer] Phone: Free PSA/Total PSA [Mass fraction] 6.7 g/dL 6.4 - 8.3 g/dL [employer] Phone: GFR >60 [employer] Phone: GFR Non- >60 >=60 mL/min/1.73 [employer] Phone: Comment on above: Chronic Kidney Disea se: less than 60 ml/min/1.73 sq.m. Kidney Failure: less than 15 ml/min/1.73 sq.m. Results valid for patients 18 years and older. Glucose [Mass/Vol] 114 mg/dL High 74 - 99 mg/dL [employer] Phone: Interpretation and review of laboratory results Abnormal [employer] Phone: Potassium [Moles/Vol] 4.7 mmol/L 3.5 - 5.0 mmol/L [employer] Phone: Sodium [Moles/Vol] 137 mmol/L 132 - 146 mmol/L [employer] Phone: Urea nitrogen (BldV) [Mass/Vol] 6 mg/dL 6 - 20 mg/dL [employer] Phone: [employer] Phone: EKG 12 LeadOrdered By: Kennedy Peña on 11-05-2020 Atrial Rate 74 BPM [employer] Phone: P [place] 54 degrees [employer] Phone: P-R Interval 142 ms [employer] Phone: Q-T Interval 396 ms [employer] Phone: QRS Duration 88 ms [employer] Phone: QTc Calculation (Bazett) 439 ms [employer] Phone: R [place] 37 degrees [employer] Phone: T [place] 6 degrees [employer] Phone: Ventricular Rate 74 BPM [employer] Work Phone: Normal sinus rhythm Normal ECG When compared with ECG of 06-SEP-2020 16:24, Vent. rate has decreased BY 39 BPM Confirmed by Brayden Carmona ([id number]) on 11/05/2020 5:56:32 PM [employer] Phone: Eliud, odin Incoming Ekg Results From - 11/05/2020 5:56 PM EDT Normal sinus rhythm Normal ECG When compared with ECG of 06-SEP-2020 16:24, Vent. rate has decreased BY 39 BPM Confirmed by Brayden Carmona ([id number]) on 11/05/2020 5:56:32 PM [employer] Phone: [employer] Phone: Lactic Acid, PlasmaOrdered B y: Dario Peña on 11-05-2020 Lactate [Moles/Vol] 0.6 mmol/L 0.5 - 2. 2 mmol/L [employer] Phone: [employer] Phone: Microscopic UrinalysisOrdere d By: Dario Peña on 11-05-2020 Bacteria, UA FEW Abnormal None Seen /HPF [employer] Phone: Epithelial Cells, UA FEW /HPF [employer] Phone: Interpretation and review of laboratory results Abnormal [employer] Phone: RBC, UA 2-5 [employer] Phone: Trichomonas, UA Present Abnormal None Seen /HPF [employer] Phone: WBC, UA >20 Abnormal [employer] Work Phone: [employer] Work Phone: POC UrineOrdered B y: Dario Peña on 11-05-2020 Beta HCG ( test) Ql (U) Negative Negative [employer] Work Phone: Lot Number [id number] [employer] Work Phone: Negative QC Pass/Fail Pass [facility] Work Phone: Positive QC Pass/Fail Pass [facility] Work Phone: [employer] Work Phone: Urinalysis, reflex to micros copicOrdered By: Dario Peña on 11-05-2020 Bilirubin Urine Negative Negative [facility] Work Phone: Blood, Urine Negative Negative [employer] Work Phone: Clarity, UA Clear Clear [employer] Work Phone: Color, UA Yellow Straw/Yello w [employer] Work Phone: Glucose, Ur Negative Negative mg/dL [employer] Work Phone: Interpretation and review of laboratory results Abnormal [employer] Phone: Ketones Ql (U) Negative Negative mg/dL [facility] Work Phone: Leukocyte esterase Test strip Ql (U) MODERATE Abnormal Negative [employer] Work Phone: Nitrite, Urine Negative Negative [facility] Work Phone: pH, UA 6.5 [employer] Work Phone: Protein, UA Negative Negative mg/dL [facility] Work Phone: Specific [place], UA 1.020 [employer] Work Phone: Urobilinogen, Urine 0.2 <2.0 E.U./dL [facility] Phone: [employer] Phone: XR CHEST PORTABLEOrdered By: Dario Peña on 11-05-2020 No acute process. [facility] [employer] Work Phone: EXAMINATION: ONE XRAY VIEW OF THE CHEST 11/05/2020 3:30 pm COMPARISON: 09/06/2020. HISTORY: ORDERING SYSTEM PROVIDED HISTORY: cough, SOB TECHNOLOGIST PROVIDED HISTORY: Reason for exam:->cough, SOB FINDINGS: The lungs are without acute focal process. There is no effusion or pneumothorax. The cardiomediastinal silhouette is without acute process. The osseous structures are without acute process. [employer] Phone: Eliud, Mhy Incoming Radiant Results From [facility] - 11/05/2020 3:47 PM EDT EXAMINATION: ONE XRAY VIEW OF THE CHEST 11/05/2020 3:30 pm COMPARISON: 09/06/2020. HISTORY: ORDERING SYSTEM PROVIDED HISTORY: cough, SOB TECHNOLOGIST PROVIDED HISTORY: Reason for exam:->cough, SOB FINDINGS: The lungs are without acute focal process. There is no effusion or pneumothorax. The cardiomediastinal silhouette is without acute process. The osseous structures are without acute process. IMPRESSION: No acute process. [employer] Phone: [employer] Phone: HEMOGLOBIN [id number] By: Sondra Hoyt on 09-18-2020 HbA1c (Bld) [Mass fraction] 6.1 % High 4.0 - 5.6 % [employer] Phone: Interpretation and review of laboratory results Abnormal [employer] Phone: C-Reactive Proteinon 020 CRP [Mass/Vol] 3 mg/dL High 0 - 0.4 mg/dL [facility] [place] Interpretation and review of laboratory results Abnormal [place] CBC Auto Differentialon 08- Basophils (Bld) [#/Vol] 0.02 10*3/uL [place] Basophils/100 WBC (Bld) 0.3 % 0 - 2 % M [place] Eosinophils (Bld) [#/Vol] 0.25 10*3/uL [place] Eosinophils/100 WBC (Bld) 3.2 % 0 - 6 % [place] Erythrocyte distribution width (RBC) [Ratio] 18.6 fL High 11.5 - 15 fL [place] Hematocrit (Bld) [Volume fraction] 43.3 % 34 - 48 % [place] Hemoglobin (Bld) [Mass/Vol] 11.9 g/dL 11.5 - 15.5 g/dL [place] Hypochromia 1+ [place] Immature granulocytes (Bld) [#/Vol] 0.06 10*3/uL E9/L [place] Immature granulocytes/100 WBC (Bld) 0.8 % 0 - 5 % [place] Interpretation and review of laboratory results Abnormal [place] Lymphocytes (Bld) [#/Vol] 1.77 10*3/uL [place] Lymphocytes/100 WBC (Bld) 22.3 % 20 - 42 % [place] MCH (RBC) [Entitic mass] 19.9 pg Low 26 - 35 pg [place] MCHC (RBC) [Mass/Vol] 27.5 % Low 32 - 34.5 % [place] MCV (RBC) [Entitic vol] 72.5 fL Low 80 - 99.9 fL [place] Monocytes (Bld) [#/Vol] 0.49 10*3/uL [place] Monocytes/100 WBC (Bld) 6.2 % 2 - 12 % M [place] Neutrophils Absolute 5.34 [place] Neutrophils/100 WBC (Bld) 67.2 % 43 - 80 % [place] Platelet mean volume (Bld) [Entitic vol] 10.0 fL 7 - 12 fL [place] Platelets (Bld) [#/Vol] 301 10*3/uL [place] RBC (Bld) [#/Vol] 5.97 10*6/uL [place] WBC (Bld) [#/Vol] 7.9 10*3/uL [place] Comprehensive Metabolic Pane stuart 12-13-2019 Albumin [Mass/Vol] 4.1 g/dL 3.5 - 5.2 g/dL [place] ALP [Catalytic activity/Vol] 100 U/L 35 - 104 U/L [place] ALT [Catalytic activity/Vol] 9 U/L 0 - 32 U/L [place] Anion gap [Moles/Vol] 8 mmol/L 7 - 16 mmol/L [place] AST [Catalytic activity/Vol] 11 U/L 0 - 31 U/L [place] Bilirubin Ql (U) <0.2 0 - 1.2 mg/dL [place] Calcium [Mass/Vol] 9.3 mg/dL 8.6 - 10. 2 mg/dL [place] Chloride [Moles/Vol] 103 mmol/L 98 - 10 7 mmol/L [place] CO2 [Moles/Vol] 33 mmol/L High 22 - 29 mmol/L [place] Creatinine [Mass/Vol] 0.8 mg/dL 0.5 - 1 mg/dL [place] GFR >60 [place] GFR Non- >60 >=60 mL/min/1.73 [place] Comment on above: Chronic Kidney Disea se: less than 60 ml/min/1.73 sq.m. Kidney Failure: less than 15 ml/min/1.73 sq.m. Results valid for patients 18 years and older. Glucose [Mass/Vol] 92 mg/dL 74 - 99 mg/dL [place] Interpretation and review of laboratory results Abnormal [place] Potassium [Moles/Vol] 4.5 mmol/L 3.5 - 5 mmol/L [place] Protein [Mass/Vol] 6.5 g/dL 6.4 - 8.3 g/dL [facility] [place] Sodium [Moles/Vol] 144 mmol/L 132 - 146 mmol/L [facility] [place] Urea nitrogen [Mass/Vol] 11 mg/dL 6 - 20 mg/dL [facility] [place] Sedimentation Rateon 08-07-2 020 Sed Rate 0 [place] Basic Metabolic Panel w/ Ref jyoti to MGOrdered By: Suzanne Mir on 05-07-2019 Anion gap [Moles/Vol] 12 mmol/L 7 - 16 mmol/L [employer] Phone: Calcium [Mass/Vol] 9.2 mg/dL 8.6 - 10. 2 mg/dL [employer] Phone: Chloride [Moles/Vol] 96 mmol/L Low 98 - 10 7 mmol/L [employer] Phone: CO2 [Moles/Vol] 31 mmol/L High 22 - 29 mmol/L [employer] Phone: Creatinine [Mass/Vol] 0.6 mg/dL 0.5 - 1 mg/dL [employer] Phone: GFR >60 [employer] Phone: GFR Non- >60 >=60 mL/min/1.73 [employer] Phone: Comment on above: Chronic Kidney Disea se: less than 60 ml/min/1.73 sq.m. Kidney Failure: less than 15 ml/min/1.73 sq.m. Results valid for patients 18 years and older. Glucose [Mass/Vol] 146 mg/dL High 74 - 99 mg/dL [facility] Phone: Interpretation and review of laboratory results Abnormal [facility] Phone: Potassium [Moles/Vol] 4.4 mmol/L 3.5 - 5 mmol/L [facility] Phone: Sodium [Moles/Vol] 139 mmol/L 132 - 146 mmol/L [employer] Phone: Urea nitrogen [Mass/Vol] 12 mg/dL 6 - 20 mg/dL [facility] Phone: CBC auto differentialOrdered By: Suzanne Mir on 05-07-2019 Anisocytosis Ql (Bld) 1+ [facility] [employer] Work Phone: Basophils (Bld) [#/Vol] 0.02 10*3/uL [employer] Work Phone: Basophils/100 WBC (Bld) 0.2 % 0 - 2 % M [employer] Work Phone: Eosinophils Absolute 0.00 Low [employer] Work Phone: Eosinophils/100 WBC (Bld) 0 % 0 - 6 % [facility] Phone: Hematocrit (Bld) [Volume fraction] 40.4 % 34 - 48 % [facility] Phone: Hemoglobin (Bld) [Mass/Vol] 11.3 g/dL Low 11.5 - 15.5 g/dL [facility] Phone: Hypochromia 1+ [employer] Work Phone: Immature Granulocytes # 0.26 E9/L [facility] [employer] Phone: Immature granulocytes/100 WBC (Bld) 2.0 % 0 - 5 % [facility] Phone: Interpretation and review of laboratory results Abnormal [employer] Work Phone: Lymphocytes Absolute 1.77 [employer] Work Phone: Lymphocytes/100 WBC (Bld) 13.4 % Low 20 - 42 % [employer] Phone: MCH (RBC) [Entitic mass] 20.4 pg Low 26 - 35 pg [facility] Phone: MCHC 28.0 % Low 32 - 34.5 % [employer] Work Phone: MCV (RBC) [Entitic vol] 72.8 fL Low 80 - 99.9 fL [facility] Phone: Monocytes Absolute 0.54 [facility] Phone: Monocytes/100 WBC (Bld) 4.1 % 2 - 12 % [facility] Phone: Neutrophils Absolute 10.66 High [place] Phone: Neutrophils/100 WBC (Bld) 80.3 % High 43 - 80 % [facility] Phone: Ovalocytes 1+ [facility] Phone: Platelet mean volume (Bld) [Entitic vol] 9.8 fL 7 - 12 fL [facility] Phone: Platelets (Bld) [#/Vol] 431 10*3/uL [facility] Phone: Poikilocytes 1+ [facility] Phone: RBC (Bld) [#/Vol] 5.55 10*6/uL High [facility] Phone: RDW 17.8 fL High 11.5 - 15 fL [facility] Phone: WBC (Bld) [#/Vol] 13.3 10*3/uL High [facility] Phone: Basic Metabolic Panel w/ Ref jyoti to MGOrdered By: Suzanne Mir on 05-06-2019 Anion gap [Moles/Vol] 10 mmol/L 7 - 16 mmol/L [facility] Phone: Calcium [Mass/Vol] 8.8 mg/dL 8.6 - 10. 2 mg/dL [facility] Phone: Chloride [Moles/Vol] 99 mmol/L 98 - 10 7 mmol/L [facility] Phone: CO2 [Moles/Vol] 31 mmol/L High 22 - 29 mmol/L [facility] Phone: Creatinine [Mass/Vol] 0.6 mg/dL 0.5 - 1 mg/dL [facility] Phone: GFR >60 [facility] [employer] Phone: GFR Non- >60 >=60 mL/min/1.73 [facility] Phone: Comment on above: Chronic Kidney Disea se: less than 60 ml/min/1.73 sq.m. Kidney Failure: less than 15 ml/min/1.73 sq.m. Results valid for patients 18 years and older. Glucose [Mass/Vol] 97 mg/dL 74 - 99 mg/dL [facility] Phone: Interpretation and review of laboratory results Abnormal [facility] Phone: Potassium [Moles/Vol] 4.3 mmol/L 3.5 - 5 mmol/L [facility] Phone: Sodium [Moles/Vol] 140 mmol/L 132 - 146 mmol/L [facility] Phone: Urea nitrogen [Mass/Vol] 9 mg/dL 6 - 20 mg/dL [facility] Phone: CBC auto differentialOrdered By: Suzanne Mir on 05-06-2019 Anisocytosis Ql (Bld) 1+ [facility] [employer] Work Phone: Basophils (Bld) [#/Vol] 0.01 10*3/uL [facility]: Basophils/100 WBC (Bld) 0.1 % 0 - 2 % M [facility] [employer] Work Phone: Eosinophils Absolute 0.00 Low [facility] [employer] Phone: Eosinophils/100 WBC (Bld) 0 % 0 - 6 % [facility] Phone: Hematocrit (Bld) [Volume fraction] 35.1 % 34 - 48 % [facility] Phone: Hemoglobin (Bld) [Mass/Vol] 9.6 g/dL Low 11.5 - 15.5 g/dL [facility] Phone: Immature Granulocytes # 0.21 E9/L [facility] [employer] Phone: Immature granulocytes/100 WBC (Bld) 2.2 % 0 - 5 % [facility] Phone: Interpretation and review of laboratory results Abnormal [facility] Phone: Lymphocytes Absolute 1.61 [place] Phone: Lymphocytes/100 WBC (Bld) 16.8 % Low 20 - 42 % [facility] Phone: MCH (RBC) [Entitic mass] 20.3 pg Low 26 - 35 pg [facility] Phone: MCHC 27.4 % Low 32 - 34.5 % [facility] Phone: MCV (RBC) [Entitic vol] 74.4 fL Low 80 - 99.9 fL [facility] Phone: Monocytes Absolute 0.70 [facility] Phone: Monocytes/100 WBC (Bld) 7.3 % 2 - 12 % [facility] [employer] Phone: Neutrophils Absolute 7.07 [place] Phone: Neutrophils/100 WBC (Bld) 73.6 % 43 - 80 % [facility] Phone: Ovalocytes 1+ [facility] Phone: Platelet mean volume (Bld) [Entitic vol] 9.7 fL 7 - 12 fL [facility] Phone: Platelets (Bld) [#/Vol] 345 10*3/uL [facility] Phone: Poikilocytes 1+ [employer] Work Phone: Polychromasia 1+ [facility] Work Phone: RBC (Bld) [#/Vol] 4.72 10*6/uL [employer] Work Phone: RDW 17.8 fL High 11.5 - 15 fL [employer] Work Phone: Tear Drop Cells 1+ [facility] Work Phone: WBC (Bld) [#/Vol] 9.6 10*3/uL [employer] Work Phone: Basic Metabolic Panel w/ Ref jyoti to MGOrdered By: Suzanne Mir on 05-05-2019 Anion gap [Moles/Vol] 7 mmol/L 7 - 16 mmol/L [facility] Phone: Calcium [Mass/Vol] 8.6 mg/dL 8.6 - 10. 2 mg/dL [facility] Phone: Chloride [Moles/Vol] 100 mmol/L 98 - 10 7 mmol/L [facility] Phone: CO2 [Moles/Vol] 34 mmol/L High 22 - 29 mmol/L [facility] Phone: Creatinine [Mass/Vol] 0.6 mg/dL 0.5 - 1 mg/dL [facility] Phone: GFR >60 [employer] Work Phone: GFR Non- >60 >=60 mL/min/1.73 [facility] Phone: Comment on above: Chronic Kidney Disea se: less than 60 ml/min/1.73 sq.m. Kidney Failure: less than 15 ml/min/1.73 sq.m. Results valid for patients 18 years and older. Glucose [Mass/Vol] 109 mg/dL High 74 - 99 mg/dL [facility] Phone: Interpretation and review of laboratory results Abnormal [facility] Phone: Potassium [Moles/Vol] 4.5 mmol/L 3.5 - 5 mmol/L [employer] Work Phone: Sodium [Moles/Vol] 141 mmol/L 132 - 146 mmol/L [facility] Phone: Urea nitrogen [Mass/Vol] 8 mg/dL 6 - 20 mg/dL [facility] Phone: CBC auto differentialOrdered By: Suzanne Mir on 05-05-2019 Anisocytosis Ql (Bld) 1+ [facility] [employer] Work Phone: Basophils (Bld) [#/Vol] 0.01 10*3/uL [facility] Phone: Basophils/100 WBC (Bld) 0.1 % 0 - 2 % [employer] Work Phone: Eosinophils Absolute 0.00 Low [place] Phone: Eosinophils/100 WBC (Bld) 0 % 0 - 6 % [facility] Phone: Hematocrit (Bld) [Volume fraction] 32.1 % Low 34 - 48 % [facility] Phone: Hemoglobin (Bld) [Mass/Vol] 8.7 g/dL Low 11.5 - 15.5 g/dL [facility] Phone: Hypochromia 1+ [employer] Work Phone: Immature Granulocytes # 0.17 E9/L [facility] [employer] Phone: Immature granulocytes/100 WBC (Bld) 1.6 % 0 - 5 % [facility] Phone: Interpretation and review of laboratory results Abnormal [facility] Phone: Lymphocytes Absolute 1.66 [employer] Work Phone: Lymphocytes/100 WBC (Bld) 15.5 % Low 20 - 42 % [employer] Work Phone: MCH (RBC) [Entitic mass] 20.4 pg Low 26 - 35 pg [employer] Work Phone: MCHC 27.1 % Low 32 - 34.5 % [employer] Work Phone: MCV (RBC) [Entitic vol] 75.4 fL Low 80 - 99.9 fL [employer] Work Phone: Monocytes Absolute 0.70 [employer] Work Phone: Monocytes/100 WBC (Bld) 6.5 % 2 - 12 % [facility] Work Phone: Neutrophils Absolute 8.18 High [place] Phone: Neutrophils/100 WBC (Bld) 76.3 % 43 - 80 % [employer] Work Phone: Ovalocytes 1+ [employer] Work Phone: Platelet mean volume (Bld) [Entitic vol] 9.9 fL 7 - 12 fL [employer] Work Phone: Platelets (Bld) [#/Vol] 318 10*3/uL [employer] Work Phone: Poikilocytes 1+ [employer] Work Phone: Polychromasia 1+ [employer] Work Phone: RBC (Bld) [#/Vol] 4.26 10*6/uL [employer] Work Phone: RDW 17.8 fL High 11.5 - 15 fL [employer] Work Phone: WBC (Bld) [#/Vol] 10.7 10*3/uL [employer] Work Phone: Respiratory CultureOrdered B y: Ashia Weiss on 05-05-2019 CULTURE, RESPIRATORY Oral Pharyngeal Jed present [employer] Work Phone: Smear, Respiratory Group 5: >25 PMN's/LPF and <10 Epithelial cells/LPF Moderate Polymorphonuclear leukocytes Rare Epithelial cells Rare Gram positive diplococci Rare Gram negative diplococci Rare Gram negative rods [facility] Phone: Source: SPUEX Site: [facility] Phone: Basic Metabolic Panel w/ Ref jyoti to MGOrdered By: Suzanne Mir on 05-04-2019 Anion gap [Moles/Vol] 8 mmol/L 7 - 16 mmol/L [facility] Phone: Calcium [Mass/Vol] 8.8 mg/dL 8.6 - 10. 2 mg/dL [facility] Phone: Chloride [Moles/Vol] 97 mmol/L Low 98 - 10 7 mmol/L [facility] Phone: CO2 [Moles/Vol] 33 mmol/L High 22 - 29 mmol/L [facility] Phone: Creatinine [Mass/Vol] 0.6 mg/dL 0.5 - 1 mg/dL [facility] Phone: GFR >60 [place] Phone: GFR Non- >60 >=60 mL/min/1.73 [facility] Phone: Comment on above: Chronic Kidney Disea se: less than 60 ml/min/1.73 sq.m. Kidney Failure: less than 15 ml/min/1.73 sq.m. Results valid for patients 18 years and older. Glucose [Mass/Vol] 116 mg/dL High 74 - 99 mg/dL [facility] Phone: Interpretation and review of laboratory results Abnormal [facility] Phone: Potassium [Moles/Vol] 4.3 mmol/L 3.5 - 5 mmol/L [facility] Phone: Sodium [Moles/Vol] 138 mmol/L 132 - 146 mmol/L [facility] Phone: Urea nitrogen [Mass/Vol] 7 mg/dL 6 - 20 mg/dL [employer] Work Phone: CBC auto differentialOrdered By: Suzanne Mir on 05-04-2019 Anisocytosis Ql (Bld) 1+ [facility] [employer] Work Phone: Basophils (Bld) [#/Vol] 0.02 10*3/uL [employer] Work Phone: Basophils/100 WBC (Bld) 0.2 % 0 - 2 % [employer] Work Phone: Eosinophils Absolute 0.00 Low [place] Phone: Eosinophils/100 WBC (Bld) 0 % 0 - 6 % [facility] Phone: Hematocrit (Bld) [Volume fraction] 33.0 % Low 34 - 48 % [employer] Work Phone: Hemoglobin (Bld) [Mass/Vol] 9.0 g/dL Low 11.5 - 15.5 g/dL [facility] Phone: Hypochromia 2+ [facility] Phone: Immature Granulocytes # 0.18 E9/L [facility] [employer] Phone: Immature granulocytes/100 WBC (Bld) 1.7 % 0 - 5 % [facility] Phone: Interpretation and review of laboratory results Abnormal [employer] Work Phone: Lymphocytes Absolute 0.82 Low [employer] Work Phone: Lymphocytes/100 WBC (Bld) 7.5 % Low 20 - 42 % [facility] Phone: MCH (RBC) [Entitic mass] 20.5 pg Low 26 - 35 pg [employer] Work Phone: MCHC 27.3 % Low 32 - 34.5 % [employer] Work Phone: MCV (RBC) [Entitic vol] 75.0 fL Low 80 - 99.9 fL [employer] Work Phone: Monocytes Absolute 0.40 [employer] Work Phone: Monocytes/100 WBC (Bld) 3.7 % 2 - 12 % M [facility] Work Phone: Neutrophils Absolute 9.45 High [employer] Work Phone: Neutrophils/100 WBC (Bld) 86.9 % High 43 - 80 % [facility] Work Phone: Ovalocytes 1+ [employer] Work Phone: Platelet mean volume (Bld) [Entitic vol] 10.4 fL 7 - 12 fL [employer] Work Phone: Platelets (Bld) [#/Vol] 328 10*3/uL [employer] Work Phone: Poikilocytes 2+ [employer] Work Phone: Polychromasia 1+ [facility] Work Phone: RBC (Bld) [#/Vol] 4.40 10*6/uL [employer] Work Phone: RDW 17.2 fL High 11.5 - 15 fL [employer] Work Phone: Tear Drop Cells 1+ [employer] [facility] Work Phone: WBC (Bld) [#/Vol] 10.9 10*3/uL [employer] Work Phone: Basic Metabolic Panel w/ Ref jyoti to MGOrdered By: Suzanne Mir on 05-03-2019 Anion gap [Moles/Vol] 8 mmol/L 7 - 16 mmol/L [employer] Work Phone: Calcium [Mass/Vol] 8.1 mg/dL Low 8.6 - 10. 2 mg/dL [facility] Phone: Chloride [Moles/Vol] 96 mmol/L Low 98 - 10 7 mmol/L [facility] Phone: CO2 [Moles/Vol] 34 mmol/L High 22 - 29 mmol/L [facility] Phone: Creatinine [Mass/Vol] 0.6 mg/dL 0.5 - 1 mg/dL [facility] Phone: GFR >60 [facility] [employer] Phone: GFR Non- >60 >=60 mL/min/1.73 [facility] Phone: Comment on above: Chronic Kidney Disea se: less than 60 ml/min/1.73 sq.m. Kidney Failure: less than 15 ml/min/1.73 sq.m. Results valid for patients 18 years and older. Glucose [Mass/Vol] 101 mg/dL High 74 - 99 mg/dL [facility] Phone: Interpretation and review of laboratory results Abnormal [facility] Phone: Potassium [Moles/Vol] 3.9 mmol/L 3.5 - 5 mmol/L [facility] Phone: Sodium [Moles/Vol] 138 mmol/L 132 - 146 mmol/L [facility] Phone: Urea nitrogen [Mass/Vol] 6 mg/dL 6 - 20 mg/dL [facility] Phone: CBC auto differentialOrdered By: Suzanne Mir on 05-03-2019 Anisocytosis Ql (Bld) 2+ [employer] Work Phone: Basophils (Bld) [#/Vol] 0.02 10*3/uL [facility] Phone: Basophils/100 WBC (Bld) 0.2 % 0 - 2 % [facility] Phone: Eosinophils Absolute 0.47 [employer] Work Phone: Eosinophils/100 WBC (Bld) 5.4 % 0 - 6 % [employer] Work Phone: Hematocrit (Bld) [Volume fraction] 33.1 % Low 34 - 48 % [employer] Work Phone: Hemoglobin (Bld) [Mass/Vol] 8.9 g/dL Low 11.5 - 15.5 g/dL [employer] Work Phone: Hypochromia 1+ [employer] Work Phone: Immature Granulocytes # 0.10 E9/L [employer] Work Phone: Immature granulocytes/100 WBC (Bld) 1.1 % 0 - 5 % [facility] Phone: Interpretation and review of laboratory results Abnormal [facility] Phone: Lymphocytes Absolute 1.17 Low [employer] Work Phone: Lymphocytes/100 WBC (Bld) 13.4 % Low 20 - 42 % [employer] Work Phone: MCH (RBC) [Entitic mass] 20.5 pg Low 26 - 35 pg [facility] Phone: MCHC 26.9 % Low 32 - 34.5 % [facility] Phone: MCV (RBC) [Entitic vol] 76.3 fL Low 80 - 99.9 fL [facility] Phone: Monocytes Absolute 0.65 [facility] Phone: Monocytes/100 WBC (Bld) 7.5 % 2 - 12 % [employer] Work Phone: Neutrophils Absolute 6.29 [employer] Work Phone: Neutrophils/100 WBC (Bld) 72.4 % 43 - 80 % [employer] Work Phone: Ovalocytes 1+ [employer] Work Phone: Platelet mean volume (Bld) [Entitic vol] 9.9 fL 7 - 12 fL [employer] Work Phone: Platelets (Bld) [#/Vol] 247 10*3/uL [employer] Work Phone: Poikilocytes 1+ [employer] Work Phone: Polychromasia 1+ [employer] Work Phone: RBC (Bld) [#/Vol] 4.34 10*6/uL [employer] Work Phone: RDW 17.4 fL High 11.5 - 15 fL [employer] Work Phone: WBC (Bld) [#/Vol] 8.7 10*3/uL [employer] Work Phone: Basic Metabolic Panel w/ Ref jyoti to MGOrdered By: Suzanne Mir on 05-02-2019 Anion gap [Moles/Vol] 9 mmol/L 7 - 16 mmol/L [facility] Phone: Calcium [Mass/Vol] 8.1 mg/dL Low 8.6 - 10. 2 mg/dL [facility] Phone: Chloride [Moles/Vol] 93 mmol/L Low 98 - 10 7 mmol/L [facility] Phone: CO2 [Moles/Vol] 35 mmol/L High 22 - 29 mmol/L [facility] Phone: Creatinine [Mass/Vol] 0.6 mg/dL 0.5 - 1 mg/dL [facility] Phone: GFR >60 [employer] Work Phone: GFR Non- >60 >=60 mL/min/1.73 [employer] Work Phone: Comment on above: Chronic Kidney Disea se: less than 60 ml/min/1.73 sq.m. Kidney Failure: less than 15 ml/min/1.73 sq.m. Results valid for patients 18 years and older. Glucose [Mass/Vol] 104 mg/dL High 74 - 99 mg/dL [facility] Phone: Interpretation and review of laboratory results Abnormal [facility] Phone: Potassium [Moles/Vol] 3.8 mmol/L 3.5 - 5 mmol/L [facility] Phone: Sodium [Moles/Vol] 137 mmol/L 132 - 146 mmol/L [facility] Phone: Urea nitrogen [Mass/Vol] 5 mg/dL Low 6 - 20 mg/dL [facility] Phone: CBC auto differentialOrdered By: Suzanne Mir on 05-02-2019 Anisocytosis Ql (Bld) 1+ [employer] Work Phone: Basophils (Bld) [#/Vol] 0.03 10*3/uL [facility] Phone: Basophils/100 WBC (Bld) 0.3 % 0 - 2 % [employer] Phone: Eosinophils Absolute 0.29 [place] Phone: Eosinophils/100 WBC (Bld) 2.5 % 0 - 6 % [facility] Phone: Hematocrit (Bld) [Volume fraction] 35.3 % 34 - 48 % [facility] Phone: Hemoglobin (Bld) [Mass/Vol] 9.6 g/dL Low 11.5 - 15.5 g/dL [facility] Phone: Hypochromia 1+ [facility] Phone: Immature Granulocytes # 0.12 E9/L [facility] [employer] Phone: Immature granulocytes/100 WBC (Bld) 1.0 % 0 - 5 % [facility] Phone: Interpretation and review of laboratory results Abnormal [facility] Phone: Lymphocytes Absolute 1.35 Low [place] Phone: Lymphocytes/100 WBC (Bld) 11.5 % Low 20 - 42 % [facility] Phone: MCH (RBC) [Entitic mass] 20.4 pg Low 26 - 35 pg [facility] Phone: MCHC 27.2 % Low 32 - 34.5 % [facility] Phone: MCV (RBC) [Entitic vol] 74.9 fL Low 80 - 99.9 fL [facility] Phone: Monocytes Absolute 0.86 [facility] Phone: Monocytes/100 WBC (Bld) 7.4 % 2 - 12 % [facility] Phone: Neutrophils Absolute 9.04 High [place] Phone: Neutrophils/100 WBC (Bld) 77.3 % 43 - 80 % [facility] Phone: Ovalocytes 1+ [facility] Phone: Platelet mean volume (Bld) [Entitic vol] 10.2 fL 7 - 12 fL [facility] Phone: Platelets (Bld) [#/Vol] 293 10*3/uL [facility] Phone: Poikilocytes 1+ [facility] Phone: RBC (Bld) [#/Vol] 4.71 10*6/uL [facility] Phone: RDW 17.2 fL High 11.5 - 15 fL [facility] Phone: WBC (Bld) [#/Vol] 11.7 10*3/uL High [employer] Work Phone: Legionella antigen, urineOrd ered By: [...] the detection limit. Normal Range: Presumptive Negative [facility] Phone: Source: URV Site: Urine&Urine [facility] Phone: Respiratory Panel, Molecular Ordered By: Suzanne Mir on 05-02-2019 Adenovirus by PCR Not detected Not Detected [facility] Phone: Bordetella parapertussis by PCR Not detected Not Detected [facility] Phone: Bordetella pertussis by PCR Not detected Not Detected [facility] Phone: Chlamydophilia pneumoniae by PCR Not detected Not Detected [facility] Phone: Coronavirus 229E by PCR Not detected Not Detected [facility] Phone: Coronavirus HKU1 by PCR Not detected Not Detected [facility] Phone: Coronavirus NL63 by PCR Not detected Not Detected [facility] Phone: Coronavirus OC43 by PCR Not detected Not Detected [facility] Phone: Human Metapneumovirus by PCR Not detected Not Detected [facility] Phone: Human Rhinovirus/Enterovirus by PCR Not detected Not Detected [facility] Phone: Influenza A by PCR Not detected Not Detected [facility] Phone: Influenza B by PCR Not detected Not Detected [facility] Phone: Mycoplasma pneumoniae by PCR Not detected Not Detected [facility] Phone: Parainfluenza Virus 1 by PCR Not detected Not Detected [facility] Phone: Parainfluenza Virus 2 by PCR Not detected Not Detected [facility] Phone: Parainfluenza Virus 3 by PCR Not detected Not Detected [facility] Phone: Parainfluenza Virus 4 by PCR Not detected Not Detected [facility] Phone: Respiratory Syncytial Virus by PCR Not detected Not Detected [facility] Phone: Strep Pneumoniae AntigenOrde red By: Suzanne Mir on 05-02-2019 STREP PNEUMONIAE ANTIGEN, URINE Presumptive NEGATIVE for Pneumococcal pneumonia, suggesting no current or recent pneumococcal infection. Infection due to S. pneumoniae cannot be ruled out since the antigen present in the sample may be below the detection limit of the test. [facility] Phone: Source: URV Site: Urine&Urine [facility] Phone: BASIC METABOLIC PANELOrdered By: Aric Simental on 05-01-2019 Anion gap [Moles/Vol] 9 mmol/L 7 - 16 mmol/L [facility] Phone: Calcium [Mass/Vol] 8.8 mg/dL 8.6 - 10. 2 mg/dL [facility] Phone: Chloride [Moles/Vol] 92 mmol/L Low 98 - 10 7 mmol/L [facility] Phone: CO2 [Moles/Vol] 35 mmol/L High 22 - 29 mmol/L [facility] Phone: Creatinine [Mass/Vol] 0.7 mg/dL 0.5 - 1 mg/dL [facility] Phone: GFR >60 [place] Phone: GFR Non- >60 >=60 mL/min/1.73 [facility] Phone: Comment on above: Chronic Kidney Disea se: less than 60 ml/min/1.73 sq.m. Kidney Failure: less than 15 ml/min/1.73 sq.m. Results valid for patients 18 years and older. Glucose [Mass/Vol] 113 mg/dL High 74 - 99 mg/dL [facility] Phone: Interpretation and review of laboratory results Abnormal [facility] Phone: Potassium [Moles/Vol] 4.2 mmol/L 3.5 - 5 mmol/L [facility] Phone: Sodium [Moles/Vol] 136 mmol/L 132 - 146 mmol/L [facility] Phone: Urea nitrogen [Mass/Vol] 6 mg/dL 6 - 20 mg/dL [facility] Phone: Blood Gas, ArterialOrdered B y: Unknown Result on 05-01-2019 B.E. 8.1 mmol/L High -3 - 3 mmol/L [facility] Phone: Body temperature 98.6 [degF] [facility] [employer] Work Phone: COHb 0.7 % 0 - 1.5 % [facility] Phone: Critical(s) Notified . No Critical Values [facility] Phone: Date Analyzed [id number] [employer] Work Phone: Date Of Collection [facility] Phone: HCO3 (Bld) [Moles/Vol] 35.0 mmol/L High 22 - 26 mmol/L [facility] Phone: HHb 12.7 % High 0 - 5 % [facility] Phone: Interpretation and review of laboratory results Abnormal [facility] Phone: Lab [id number] [facility] Phone: MetHb 0.5 % 0 - 1.5 % [employer] Work Phone: Mode NC- 6L [facility] Work Phone: O2 Content 13.5 mL/dL [employer] Work Phone: O2Hb 86.1 % Low 94 - 97 % [facility] Work Phone: Mail Distributor ID [id number] [facility] Work Phone: Oxygen (Bld) [Partial pressure] 55.0 mm[Hg] Low [facility] Work Phone: Oxygen saturation in Blood 87.1 % Low 92 - 98.5 % [facility] Work Phone: PCO2 61.7 High [facility] Work Phone: pH, Blood Gas 7.372 [employer] Work Phone: Source: Blood Arterial [facility] Work Phone: tHb (est) 11.1 g/dL Low 11.5 - 16.5 g/dL [facility] Work Phone: Time Analyzed 1308 [employer] Work Phone: Time Collected [employer] Work Phone: Brain Natriuretic PeptideOrd ered By: Aric Simental on 05-01-2019 Interpretation and review of laboratory results Abnormal [facility] Phone: Natriuretic peptide B (Bld) [Mass/Vol] 219 pg/mL High 0 - 125 pg/mL [facility] Work Phone: CBC Auto DifferentialOrdered By: Aric Simental on 05-01-2019 Anisocytosis Ql (Bld) 1+ [facility] [employer] Work Phone: Basophils (Bld) [#/Vol] 0.02 10*3/uL [facility] Work Phone: Basophils/100 WBC (Bld) 0.1 % 0 - 2 % [facility] Work Phone: Eosinophils Absolute 0.18 [employer] Work Phone: Eosinophils/100 WBC (Bld) 1.3 % 0 - 6 % [facility] Phone: Hematocrit (Bld) [Volume fraction] 36.7 % 34 - 48 % [facility] Phone: Hemoglobin (Bld) [Mass/Vol] 10.3 g/dL Low 11.5 - 15.5 g/dL [facility] Phone: Immature Granulocytes # 0.19 E9/L [facility] [employer] Phone: Immature granulocytes/100 WBC (Bld) 1.4 % 0 - 5 % [facility] Phone: Interpretation and review of laboratory results Abnormal [facility] Phone: Lymphocytes Absolute 1.30 Low [place] Phone: Lymphocytes/100 WBC (Bld) 9.5 % Low 20 - 42 % [facility] Phone: MCH (RBC) [Entitic mass] 20.6 pg Low 26 - 35 pg [employer] Phone: MCHC 28.1 % Low 32 - 34.5 % [employer] Phone: MCV (RBC) [Entitic vol] 73.5 fL Low 80 - 99.9 fL [employer] Phone: Monocytes Absolute 0.97 High [employer] Phone: Monocytes/100 WBC (Bld) 7.1 % 2 - 12 % [employer] Phone: Neutrophils Absolute 11.08 High [place] Phone: Neutrophils/100 WBC (Bld) 80.6 % High 43 - 80 % [employer] Phone: Ovalocytes 1+ [employer] Phone: Platelet mean volume (Bld) [Entitic vol] 10.1 fL 7 - 12 fL [employer] Phone: Platelets (Bld) [#/Vol] 314 10*3/uL [employer] Phone: Poikilocytes 1+ [employer] Phone: RBC (Bld) [#/Vol] 4.99 10*6/uL [employer] Phone: RDW 17.1 fL High 11.5 - 15 fL [employer] Phone: Target Cells 1+ [employer] Phone: WBC (Bld) [#/Vol] 13.7 10*3/uL High [employer] Phone: EKG 12 LeadOrdered By: Aric Simental on 05-01-2019 Atrial Rate 121 BPM [employer] Phone: P [place] 64 degrees [facility] Phone: P-R Interval 142 ms [facility] Phone: Q-T Interval 322 ms [facility] Phone: QRS Duration 88 ms [facility] Phone: QTc Calculation (Bazett) 457 ms [facility] Phone: R [place] 115 degrees [facility] Phone: T [place] 17 degrees [facility] Phone: Ventricular Rate 121 BPM [facility] Phone: Sinus tachycardia Right axis deviation Possible Inferior infarct , age undetermined Loss of anterior forces Abnormal ECG When compared with ECG of 01-APR-2019 12:47, QRS axis shifted right Confirmed by Micah Jj ([id number]) on 05/01/2019 9:56:06 PM [facility] Phone: Eliud, Tesfaye Incoming Ekg Results From [place] - 05/01/2019 9:56 PM EST Sinus tachycardia Right axis deviation Possible Inferior infarct , age undetermined Loss of anterior forces Abnormal ECG When compared with ECG of 01-APR-2019 12:47, QRS axis shifted right Confirmed by Micah Jj ([id number]) on 05/01/2019 9:56:06 PM [facility] Phone: MAGNESIUMOrdered By: Aric porter on 05-01-2019 Magnesium [Mass/Vol] 2.1 mg/dL 1.6 - 2 .6 mg/dL [facility] Phone: , urineOrdered By: Suzanne Mir on 05-01-2019 Beta HCG ( test) Ql (U) Negative NEGATIVE [facility] Phone: Comment on above: Test results should always be evaluated with all available clinical data. If a urine sample is too dilute, it may not containa a field representative/health education urinary hCG concentration. If a negative result is obtainedand is still suspected, a first morning sample should be obtained and tested. ProcalcitoninOrdered By: Michael Mir on 05-01-2019 Interpretation and review of laboratory results Abnormal [facility] Phone: Procalcitonin 0.18 ng/mL High 0 - 0.08 ng/mL [facility] Phone: RAPID INFLUENZA A/B ANTIGENS Ordered By: Aric Simental on 05-01-2019 Influenza A by PCR Not detected Not Detected [facility] Phone: Influenza B by PCR Not detected Not Detected [facility] Phone: TSH without ReflexOrdered By : Aric Simental on 05-01-2019 TSH Qn 1.720 m[IU]/L [employer] Work Phone: XR CHEST PORTABLEOrdered By: Aric Simental on 05-01-2019 Patchy perihilar and bibasilar infiltrates and pleural effusions which may be due to pneumonia or CHF. [facility] Phone: Patient : 1990 Age: 29 years Gender: Female Order Date: 05/01/2019 12:30 PM EXAM: XR CHEST PORTABLE one image INDICATION: shortness of breath, cough, congestion shortness of breath, cough, congestion COMPARISON: 04/01/2019 FINDINGS: There is borderline cardiac size. There is patchy perihilar and bibasilar infiltrates and pleural effusions, right more than left. [facility] Phone: Eliud, y Incoming Radiant Results From Langtice/Umthunzi - 05/01/2019 1:18 PM EST Patient : [...] may be due to pneumonia or CHF. [employer] Phone: Basic Metabolic Panelon 03-09 Anion gap [Moles/Vol] 10 mmol/L 7 - 16 mmol/L [place] Calcium [Mass/Vol] 9.0 mg/dL 8.6 - 10. 2 mg/dL [place] Chloride [Moles/Vol] 99 mmol/L 98 - 10 7 mmol/L [place] CO2 [Moles/Vol] 29 mmol/L 22 - 29 mmol/L [place] Creatinine [Mass/Vol] 0.8 mg/dL 0.5 - 1 mg/dL [place] GFR >60 [place] GFR Non- >60 >=60 mL/min/1.73 [place] Comment on above: Chronic Kidney Disea se: less than 60 ml/min/1.73 sq.m. Kidney Failure: less than 15 ml/min/1.73 sq.m. Results valid for patients 18 years and older. Glucose [Mass/Vol] 94 mg/dL 74 - 99 mg/dL [place] Potassium [Moles/Vol] 4.7 mmol/L 3.5 - 5 mmol/L [place] Sodium [Moles/Vol] 138 mmol/L 132 - 146 mmol/L [place] Urea nitrogen [Mass/Vol] 7 mg/dL 6 - 20 mg/dL [place] CBC Auto Differentialon 03-09 Anisocytosis Ql (Bld) 1+ [place] Basophils (Bld) [#/Vol] 0.04 10*3/uL [place] Basophils/100 WBC (Bld) 0.3 % 0 - 2 % M [place] Eosinophils (Bld) [#/Vol] 0.10 10*3/uL [place] Eosinophils/100 WBC (Bld) 0.8 % 0 - 6 % [place] Erythrocyte distribution width (RBC) [Ratio] 18.1 fL High 11.5 - 15 fL [place] Hematocrit (Bld) [Volume fraction] 40.7 % 34 - 48 % [place] Hemoglobin (Bld) [Mass/Vol] 11.7 g/dL 11.5 - 15.5 g/dL [place] Immature granulocytes (Bld) [#/Vol] 0.08 10*3/uL E9/L [place] Immature granulocytes/100 WBC (Bld) 0.6 % 0 - 5 % [place] Interpretation and review of laboratory results Abnormal [place] Lymphocytes (Bld) [#/Vol] 1.41 10*3/uL [place] Lymphocytes/100 WBC (Bld) 10.7 % Low 20 - 42 % [place] MCH (RBC) [Entitic mass] 21.1 pg Low 26 - 35 pg [place] MCHC (RBC) [Mass/Vol] 28.7 % Low 32 - 34.5 % [place] MCV (RBC) [Entitic vol] 73.5 fL Low 80 - 99.9 fL [place] Monocytes (Bld) [#/Vol] 0.83 10*3/uL [facility] PEGGY Monocytes/100 WBC (Bld) 6.3 % 2 - 12 % M [place] Neutrophils Absolute 10.74 High [place] Neutrophils/100 WBC (Bld) 81.3 % High 43 - 80 % [place] Ovalocytes 1+ [place] Platelet mean volume (Bld) [Entitic vol] 9.8 fL 7 - 12 fL [place] Platelets (Bld) [#/Vol] 371 10*3/uL [place] Poikilocytes 1+ [place] RBC (Bld) [#/Vol] 5.54 10*6/uL [place] Target Cells 1+ [place] WBC (Bld) [#/Vol] 13.2 10*3/uL [place] CTA CHEST W CONTRASTon 04-01 1. [...] resolution. ALERT: THIS IS AN ABNORMAL REPORT. [place] Patient : 1990 Age: 29 years [...] No pneumothorax. View of upper abdomen shows [id number] splenomegaly. [place] Eliud, Mhy Incoming Radiant Results From Langtice/Umthunzi - 04/01/2019 2:33 PM EST Patient : [...] No pneumothorax. View of upper abdomen shows [id number] splenomegaly. IMPRESSION: 1. Numerous interstitial and nodular opacities are scattered throughout both lungs with peribronchial thickening. Findings suggest generalized infectious or inflammatory bronchiolitis versus atypical viral or mycoplasma pneumonia throughout both lungs. More confluent airspace opacities are seen in right lung apex. 2. Mediastinal and hilar lymphadenopathy. 3. Splenomegaly. Follow-up recommended to assure resolution. ALERT: THIS IS AN ABNORMAL REPORT. [facility] [place] P[place] Urine Qualon 1 06-01-2018 Beta HCG ( test) Ql (U) Negative Negative [place] Beta HCG ( test) Ql (U) [id number] [place] Negative QC Pass/Fail Pass [place] Positive QC Pass/Fail Pass [place] SPECIMEN REJECTIONon 019 Reason for Rejection see below [place] Comment on above: Unable to perform te sting; specimen grossly hemolyzed. To perform testing the specimen will need to be recollected. Hemolyz Rejected Test lucien Bae PEGGY RYAN CALL Alexandro GOMEZ tel. [phone], Rejected Test Name/Called to: dimer/ demetrio baeza rn, 04/01/2019 13:37, by [facility] PEGGY Mercado XR CHEST PORTABLEon 04-01-20 [...] evidence of consolidation at this time, however. [facility] Eliud[facility] Mhy Incoming Radiant Results From Langtice/Umthunzi - 04/01/2019 2:01 PM EST Patient : [...] evidence of consolidation at this time, however. [place] Patient : 1990 Age: 29 years [...] oxygen tubing and EKG leads are present. [place] Basic Metabolic Panel w/ Ref jyoti to MGon 02-27-2019 Anion gap [Moles/Vol] 10 mmol/L 7 - 16 mmol/L [place] Calcium [Mass/Vol] 9.1 mg/dL 8.6 - 10. 2 mg/dL [place] Chloride [Moles/Vol] 102 mmol/L 98 - 10 7 mmol/L [place] CO2 [Moles/Vol] 29 mmol/L 22 - 29 mmol/L [place] Creatinine [Mass/Vol] 0.8 mg/dL 0.5 - 1 mg/dL [place] GFR >60 [place] GFR Non- >60 >=60 mL/min/1.73 [place] Comment on above: Chronic Kidney Disea se: less than 60 ml/min/1.73 sq.m. Kidney Failure: less than 15 ml/min/1.73 sq.m. Results valid for patients 18 years and older. Glucose [Mass/Vol] 100 mg/dL High 74 - 99 mg/dL [place] Interpretation and review of laboratory results Abnormal [place] Potassium [Moles/Vol] 4.5 mmol/L 3.5 - 5 mmol/L [place] Sodium [Moles/Vol] 141 mmol/L 132 - 146 mmol/L [place] Urea nitrogen [Mass/Vol] 11 mg/dL 6 - 20 mg/dL [place] CBC auto differentialon 02-06 Anisocytosis Ql (Bld) 1+ [place] Basophils (Bld) [#/Vol] 0.03 10*3/uL [place] Basophils/100 WBC (Bld) 0.3 % 0 - 2 % M [place] Eosinophils (Bld) [#/Vol] 0.06 10*3/uL [place] Eosinophils/100 WBC (Bld) 0.6 % 0 - 6 % [place] Erythrocyte distribution width (RBC) [Ratio] 18.6 fL High 11.5 - 15 fL [place] Hematocrit (Bld) [Volume fraction] 36.9 % 34 - 48 % [place] Hemoglobin (Bld) [Mass/Vol] 10.6 g/dL Low 11.5 - 15.5 g/dL [place] Immature granulocytes (Bld) [#/Vol] 0.50 10*3/uL E9/L [place] Immature granulocytes/100 WBC (Bld) 4.8 % 0 - 5 % [place] Interpretation and review of laboratory results Abnormal [place] Lymphocytes (Bld) [#/Vol] 2.65 10*3/uL [place] Lymphocytes/100 WBC (Bld) 25.6 % 20 - 42 % [place] MCH (RBC) [Entitic mass] 21.3 pg Low 26 - 35 pg [place] MCHC (RBC) [Mass/Vol] 28.7 % Low 32 - 34.5 % [place] MCV (RBC) [Entitic vol] 74.1 fL Low 80 - 99.9 fL [place] Monocytes (Bld) [#/Vol] 0.59 10*3/uL [place] Monocytes/100 WBC (Bld) 5.7 % 2 - 12 % [place] Neutrophils Absolute 6.51 [place] Neutrophils/100 WBC (Bld) 63.0 % 43 - 80 % [place] Ovalocytes 1+ [place] Platelet mean volume (Bld) [Entitic vol] 9.8 fL 7 - 12 fL [place] Platelets (Bld) [#/Vol] 330 10*3/uL [place] Poikilocytes 1+ [place] Polychromasia 1+ [place] RBC (Bld) [#/Vol] 4.98 10*6/uL [place] Tear Drop Cells 1+ [place] WBC (Bld) [#/Vol] 10.3 10*3/uL [place] Basic Metabolic Panel w/ Ref jyoti to MGon 02-26-2019 Anion gap [Moles/Vol] 7 mmol/L 7 - 16 mmol/L [place] Calcium [Mass/Vol] 9.1 mg/dL 8.6 - 10. 2 mg/dL [place] Chloride [Moles/Vol] 101 mmol/L 98 - 10 7 mmol/L [place] CO2 [Moles/Vol] 30 mmol/L High 22 - 29 mmol/L [place] Creatinine [Mass/Vol] 0.7 mg/dL 0.5 - 1 mg/dL [place] GFR >60 [place] GFR Non- >60 >=60 mL/min/1.73 [place] Comment on above: Chronic Kidney Disea se: less than 60 ml/min/1.73 sq.m. Kidney Failure: less than 15 ml/min/1.73 sq.m. Results valid for patients 18 years and older. Glucose [Mass/Vol] 96 mg/dL 74 - 99 mg/dL [place] Interpretation and review of laboratory results Abnormal [place] Potassium [Moles/Vol] 4.9 mmol/L 3.5 - 5 mmol/L [place] Sodium [Moles/Vol] 138 mmol/L 132 - 146 mmol/L [place] Urea nitrogen [Mass/Vol] 10 mg/dL 6 - 20 mg/dL [place] CBC auto differentialon 02-06 Anisocytosis Ql (Bld) 1+ [place] Basophils (Bld) [#/Vol] 0.00 10*3/uL [place] Basophils/100 WBC (Bld) 0.0 % 0 - 2 % M [place] Eosinophils (Bld) [#/Vol] 0.09 10*3/uL [place] Eosinophils/100 WBC (Bld) 0.9 % 0 - 6 % [place] Erythrocyte distribution width (RBC) [Ratio] 18.5 fL High 11.5 - 15 fL [place] Hematocrit (Bld) [Volume fraction] 37.2 % 34 - 48 % [place] Hemoglobin (Bld) [Mass/Vol] 10.6 g/dL Low 11.5 - 15.5 g/dL [place] Interpretation and review of laboratory results Abnormal [place] Lymphocytes (Bld) [#/Vol] 2.18 10*3/uL [place] Lymphocytes/100 WBC (Bld) 21.7 % 20 - 42 % [place] MCH (RBC) [Entitic mass] 21.3 pg Low 26 - 35 pg [place] MCHC (RBC) [Mass/Vol] 28.5 % Low 32 - 34.5 % [place] MCV (RBC) [Entitic vol] 74.7 fL Low 80 - 99.9 fL [place] Metamyelocytes Relative 0.9 % 0 - 1 % [place] Monocytes (Bld) [#/Vol] 0.79 10*3/uL [place] Monocytes/100 WBC (Bld) 7.8 % 2 - 12 % [place] Neutrophils Absolute 6.93 [place] Neutrophils/100 WBC (Bld) 68.7 % 43 - 80 % [place] Nucleated RBC/100 WBC (Bld) [Ratio] 0.0 % /100 WBC [place] Ovalocytes 1+ [place] Platelet mean volume (Bld) [Entitic vol] 9.6 fL 7 - 12 fL [place] Platelets (Bld) [#/Vol] 318 10*3/uL [place] Poikilocytes 1+ [place] [facility] [place] RBC (Bld) [#/Vol] 4.98 10*6/uL [place] Tear Drop Cells 1+ [place] WBC (Bld) [#/Vol] 9.9 10*3/uL [place] Cortisolon 02-26-2019 Cortisol 0.86 Low [place] Interpretation and review of laboratory results Abnormal [place] Respiratory Cultureon 2018 CULTURE, RESPIRATORY Oral Pharyngeal Jed present [place] Smear, Respiratory Group 6: <25 PMN's/LPF and <25 Epithelial cells/LPF Few Polymorphonuclear leukocytes Epithelial cells not seen Rare Gram negative rods Rare Gram positive cocci in clusters [place] Source: SPUEX Site: Sputum&Sputum [place] Basic Metabolic Panel w/ Ref jyoti to MGon 02-25-2019 Anion gap [Moles/Vol] 8 mmol/L 7 - 16 mmol/L [place] Calcium [Mass/Vol] 8.2 mg/dL Low 8.6 - 10. 2 mg/dL [place] Chloride [Moles/Vol] 103 mmol/L 98 - 10 7 mmol/L [place] CO2 [Moles/Vol] 31 mmol/L High 22 - 29 mmol/L [place] Creatinine [Mass/Vol] 0.7 mg/dL 0.5 - 1 mg/dL [place] GFR >60 [place] GFR Non- >60 >=60 mL/min/1.73 [place] Comment on above: Chronic Kidney Disea se: less than 60 ml/min/1.73 sq.m. Kidney Failure: less than 15 ml/min/1.73 sq.m. Results valid for patients 18 years and older. Glucose [Mass/Vol] 114 mg/dL High 74 - 99 mg/dL [place] Interpretation and review of laboratory results Abnormal [place] Potassium [Moles/Vol] 3.7 mmol/L 3.5 - 5 mmol/L [place] Sodium [Moles/Vol] 142 mmol/L 132 - 146 mmol/L [place] Urea nitrogen [Mass/Vol] 9 mg/dL 6 - 20 mg/dL [place] CBC auto differentialon 02-06 Basophils (Bld) [#/Vol] 0.03 10*3/uL [place] Basophils/100 WBC (Bld) 0.3 % 0 - 2 % M [place] Eosinophils (Bld) [#/Vol] 0.09 10*3/uL [place] Eosinophils/100 WBC (Bld) 0.9 % 0 - 6 % [place] Erythrocyte distribution width (RBC) [Ratio] 18.6 fL High 11.5 - 15 fL [place] Hematocrit (Bld) [Volume fraction] 33.4 % Low 34 - 48 % [place] Hemoglobin (Bld) [Mass/Vol] 9.7 g/dL Low 11.5 - 15.5 g/dL [place] Immature granulocytes (Bld) [#/Vol] 0.26 10*3/uL E9/L [place] Immature granulocytes/100 WBC (Bld) 2.7 % 0 - 5 % [place] Interpretation and review of laboratory results Abnormal [place] Lymphocytes (Bld) [#/Vol] 2.66 10*3/uL [place] Lymphocytes/100 WBC (Bld) 27.2 % 20 - 42 % [place] MCH (RBC) [Entitic mass] 21.7 pg Low 26 - 35 pg [place] MCHC (RBC) [Mass/Vol] 29.0 % Low 32 - 34.5 % [place] MCV (RBC) [Entitic vol] 74.6 fL Low 80 - 99.9 fL [place] Monocytes (Bld) [#/Vol] 0.66 10*3/uL [place] Monocytes/100 WBC (Bld) 6.7 % 2 - 12 % [place] Neutrophils Absolute 6.08 [place] Neutrophils/100 WBC (Bld) 62.2 % 43 - 80 % [place] Platelet mean volume (Bld) [Entitic vol] 10.0 fL 7 - 12 fL [place] Platelets (Bld) [#/Vol] 288 10*3/uL [place] RBC (Bld) [#/Vol] 4.48 10*6/uL [place] WBC (Bld) [#/Vol] 9.8 10*3/uL [place] XR CHEST PORTABLEon 02-26-20 19 Persistent infiltrates and pleural effusion in the left lung base concerning for pneumonia. [place] Patient : 1990 Age: 28 years Gender: Female Order Date: 02/25/2019 2:45 PM EXAM: XR CHEST PORTABLE one image INDICATION: left side pain, pneumonia left side pain, pneumonia COMPARISON: February 23, 2019 FINDINGS: There is low lung volumes with a borderline cardiac size. There is persistent infiltrates and pleural effusion in the left lung base. The right lung is clear. [place] Eliud, Mhy Incoming Radiant Results From [...] the left lung base concerning for pneumonia. [place] Basic Metabolic Panel w/ Ref jyoti to MGon 02-24-2019 Anion gap [Moles/Vol] 10 mmol/L 7 - 16 mmol/L [place] Calcium [Mass/Vol] 8.5 mg/dL Low 8.6 - 10. 2 mg/dL [place] Chloride [Moles/Vol] 104 mmol/L 98 - 10 7 mmol/L [place] CO2 [Moles/Vol] 29 mmol/L 22 - 29 mmol/L [place] Creatinine [Mass/Vol] 0.7 mg/dL 0.5 - 1 mg/dL [place] GFR >60 [place] GFR Non- >60 >=60 mL/min/1.73 [place] Comment on above: Chronic Kidney Disea se: less than 60 ml/min/1.73 sq.m. Kidney Failure: less than 15 ml/min/1.73 sq.m. Results valid for patients 18 years and older. Glucose [Mass/Vol] 120 mg/dL High 74 - 99 mg/dL [place] Interpretation and review of laboratory results Abnormal [place] Potassium [Moles/Vol] 4.3 mmol/L 3.5 - 5 mmol/L [place] Sodium [Moles/Vol] 143 mmol/L 132 - 146 mmol/L [place] Urea nitrogen [Mass/Vol] 8 mg/dL 6 - 20 mg/dL [place] C-reactive proteinon 10-20-2 019 CRP [Mass/Vol] 12.1 mg/dL High 0 - 0.4 mg/dL [place] Interpretation and review of laboratory results Abnormal [place] CBC auto differentialon 02-06 Anisocytosis Ql (Bld) 1+ [place] Basophils (Bld) [#/Vol] 0.01 10*3/uL [place] Basophils/100 WBC (Bld) 0.1 % 0 - 2 % [place] Eosinophils (Bld) [#/Vol] 0.00 10*3/uL [place] Eosinophils/100 WBC (Bld) 0 % 0 - 6 % [place] Erythrocyte distribution width (RBC) [Ratio] 18.4 fL High 11.5 - 15 fL [place] Hematocrit (Bld) [Volume fraction] 35.8 % 34 - 48 % [place] Hemoglobin (Bld) [Mass/Vol] 10.2 g/dL Low 11.5 - 15.5 g/dL [place] Immature granulocytes (Bld) [#/Vol] 0.15 10*3/uL E9/L [place] Immature granulocytes/100 WBC (Bld) 1.5 % 0 - 5 % [place] Interpretation and review of laboratory results Abnormal [place] Lymphocytes (Bld) [#/Vol] 1.59 10*3/uL [place] Lymphocytes/100 WBC (Bld) 15.5 % Low 20 - 42 % [place] MCH (RBC) [Entitic mass] 21.2 pg Low 26 - 35 pg [place] MCHC (RBC) [Mass/Vol] 28.5 % Low 32 - 34.5 % [place] MCV (RBC) [Entitic vol] 74.3 fL Low 80 - 99.9 fL [place] Monocytes (Bld) [#/Vol] 0.82 10*3/uL [place] Monocytes/100 WBC (Bld) 8.0 % 2 - 12 % [place] Neutrophils Absolute 7.70 High [place] Neutrophils/100 WBC (Bld) 74.9 % 43 - 80 % [place] Ovalocytes 1+ [place] Platelet mean volume (Bld) [Entitic vol] 9.6 fL 7 - 12 fL [place] Platelets (Bld) [#/Vol] 290 10*3/uL [place] Poikilocytes 1+ [place] RBC (Bld) [#/Vol] 4.82 10*6/uL [place] WBC (Bld) [#/Vol] 10.3 10*3/uL [place] Ferritinon 02-24-2019 Ferritin [Mass/Vol] 92 ng/mL [place] Comment on above: FERRITIN Reference R [...] the detection limit. Normal Range: Presumptive Negative [place] Source: URINE Site: Urine&Urine [place] Procalcitoninon 02-24-2019 Interpretation and review of laboratory results Abnormal [place] Procalcitonin 0.14 ng/mL High 0 - 0.08 ng/mL [place] Sedimentation Rateon 02-24-2 019 Interpretation and review of laboratory results Abnormal [place] Sed Rate 25 High [place] Strep Pneumoniae Antigenon 1 STREP PNEUMONIAE ANTIGEN, URINE Presumptive NEGATIVE for Pneumococcal pneumonia, suggesting no current or recent pneumococcal infection. Infection due to S. pneumoniae cannot be ruled out since the antigen present in the sample may be below the detection limit of the test. [place] Source: URINE Site: Urine&Urine [place] Transferrinon 02-24-2019 Transferrin [Mass/Vol] 229 mg/dL 200 - 360 mg/dL [place] Basic Metabolic Panel w/ Ref jyoti to MGon 02-23-2019 Anion gap [Moles/Vol] 10 mmol/L 7 - 16 mmol/L [place] Calcium [Mass/Vol] 8.2 mg/dL Low 8.6 - 10. 2 mg/dL [place] Chloride [Moles/Vol] 100 mmol/L 98 - 10 7 mmol/L [place] CO2 [Moles/Vol] 29 mmol/L 22 - 29 mmol/L [place] Creatinine [Mass/Vol] 0.8 mg/dL 0.5 - 1 mg/dL [place] GFR >60 [place] GFR Non- >60 >=60 mL/min/1.73 [place] Comment on above: Chronic Kidney Disea se: less than 60 ml/min/1.73 sq.m. Kidney Failure: less than 15 ml/min/1.73 sq.m. Results valid for patients 18 years and older. Glucose [Mass/Vol] 156 mg/dL High 74 - 99 mg/dL [place] Interpretation and review of laboratory results Abnormal [place] Potassium [Moles/Vol] 4.5 mmol/L 3.5 - 5 mmol/L [place] Sodium [Moles/Vol] 139 mmol/L 132 - 146 mmol/L [place] Urea nitrogen [Mass/Vol] 9 mg/dL 6 - 20 mg/dL [place] CBC Auto Differentialon 02-05 Basophils (Bld) [#/Vol] 0.02 10*3/uL [place] Basophils/100 WBC (Bld) 0.2 % 0 - 2 % [place] Eosinophils (Bld) [#/Vol] 0.05 10*3/uL [place] Eosinophils/100 WBC (Bld) 0.5 % 0 - 6 % [place] Erythrocyte distribution width (RBC) [Ratio] 18.0 fL High 11.5 - 15 fL [place] Hematocrit (Bld) [Volume fraction] 39.3 % 34 - 48 % [place] Hemoglobin (Bld) [Mass/Vol] 11.4 g/dL Low 11.5 - 15.5 g/dL [place] Immature granulocytes (Bld) [#/Vol] 0.12 10*3/uL E9/L [place] Immature granulocytes/100 WBC (Bld) 1.2 % 0 - 5 % [place] Interpretation and review of laboratory results Abnormal [place] Lymphocytes (Bld) [#/Vol] 2.51 10*3/uL [place] Lymphocytes/100 WBC (Bld) 25.7 % 20 - 42 % [place] MCH (RBC) [Entitic mass] 21.3 pg Low 26 - 35 pg [place] MCHC (RBC) [Mass/Vol] 29.0 % Low 32 - 34.5 % [place] MCV (RBC) [Entitic vol] 73.6 fL Low 80 - 99.9 fL [place] Monocytes (Bld) [#/Vol] 0.92 10*3/uL [place] Monocytes/100 WBC (Bld) 9.4 % 2 - 12 % [place] Neutrophils Absolute 6.14 [place] Neutrophils/100 WBC (Bld) 63.0 % 43 - 80 % [place] Platelet mean volume (Bld) [Entitic vol] 9.3 fL 7 - 12 fL [place] Platelets (Bld) [#/Vol] 321 10*3/uL [place] RBC (Bld) [#/Vol] 5.34 10*6/uL [place] WBC (Bld) [#/Vol] 9.8 10*3/uL [place] HCG Qualitative, Serumon hCG Qual Negative NEGATIVE [place] Comment on above: Test results should always be evaluated with all available clinical data. Rapid influenza A/B antigens on 02-23-2019 Influenza A by PCR Not Detected Not Detected [place] Influenza B by PCR Not Detected Not Detected [place] Respiratory Panel, Film Arra yon 02-23-2019 Film Array Bordetella Pertusis Result: Not Detected * * Normal Range: Not Detected [place] Film Array Chlamydophilia Pneumoniae Result: Not Detected * * Normal Range: Not Detected [place] Film Array Conoravirus NL63 Result: Not Detected * * Normal Range: Not Detected [place] Film Array Coronavirus 229E Result: Not Detected * * Normal Range: Not Detected [place] Film Array Coronavirus HKU1 Result: Not Detected * * Normal Range: Not Detected [place] Film Array Coronavirus OC43 Result: Not Detected * * Normal Range: Not Detected [place] Film Array Influenza A Virus Result: Not Detected * * Normal Range: Not Detected [place] Film Array Influenza A Virus 09H1 Result: Not Detected * * Normal Range: Not Detected [place] Film Array Influenza A Virus H1 Result: Not Detected * * Normal Range: Not Detected [place] Film Array Influenza A Virus H3 Result: Not Detected * * Normal Range: Not Detected [place] Film Array Influenza B Result: Not Detec noel * * Normal Range: Not Detected [place] Film Array Metapneumovirus Result: Not Detected * * Normal Range: Not Detected [place] Film Array Mycoplasma Pneumoniae Result: Not Detected * * Normal Range: Not Detected [place] Film Array Parainfluenza Virus 1 Result: Not Detected * * Normal Range: Not Detected [place] Film Array Parainfluenza Virus 2 Result: Not Detected * * Normal Range: Not Detected [place] Film Array Parainfluenza Virus 3 Result: Not Detected * * Normal Range: Not Detected [place] Film Array Parainfluenza Virus 4 Result: Not Detected * * Normal Range: Not Detected [place] Film Array Respiratory Syncitial Virus Result: Not Detected * * Normal Range: Not Detected [place] Interpretation and review of laboratory results Abnormal [place] Organism FILM ARR Adenovirus Detected Abnormal [place] Organism FILM ARR Rhinovirus/Enterovir us Detected Abnormal [facility] [place] Source: [employer] Site: Evy [facility] [place] XR CHEST PORTABLEon 02-24-20 19 Eliud, Mhy Incoming Radiant Results From [facility] Supercribe/Pacs - 02/23/2019 7:31 AM EDT Patient : [...] appears to be worse in the interval [facility] disease , suspicious for pneumonia, at the left lung base, this appears to have progressed in the interval The chest appears to be worse in the interval [facility] Patient : 1990 Age: 28 years Gender: Female Order Date: 02/23/2019 5:30 AM Exam: XR CHEST PORTABLE Number of Images: 1 view Indication: SOB SOB Comparison: 01/15/2019 Findings: The heart is unremarkable. The lung pittman demonstrate evidence for air space disease. The aorta is unremarkable. [place] Anti-DNA antibody, double-st randrussell 01-18-2019 Anti ds DNA Negative NEGATIVE [place] Basic Metabolic Panel w/ Ref jyoti to [facility] 01-18-2019 Anion gap [Moles/Vol] 9 mmol/L 7 - 16 mmol/L [place] Calcium [Mass/Vol] 8.7 mg/dL 8.6 - 10. 2 mg/dL [place] Chloride [Moles/Vol] 103 mmol/L 98 - 10 7 mmol/L [place] CO2 [Moles/Vol] 29 mmol/L 22 - 29 mmol/L [place] Creatinine [Mass/Vol] 0.7 mg/dL 0.5 - 1 mg/dL [place] GFR >60 [place] GFR Non- >60 >=60 mL/min/1.73 [place] Comment on above: Chronic Kidney Disea se: less than 60 ml/min/1.73 sq.m. Kidney Failure: less than 15 ml/min/1.73 sq.m. Results valid for patients 18 years and older. Glucose [Mass/Vol] 129 mg/dL High 74 - 99 mg/dL [place] Potassium [Moles/Vol] 4.0 mmol/L 3.5 - 5 mmol/L [place] Sodium [Moles/Vol] 141 mmol/L 132 - 146 mmol/L [place] Urea nitrogen [Mass/Vol] 8 mg/dL 6 - 20 mg/dL [place] CBC Auto Differentialon 01-06 Basophils (Bld) [#/Vol] 0.01 10*3/uL [place] Basophils/100 WBC (Bld) 0.1 % 0 - 2 % [place] Eosinophils (Bld) [#/Vol] 0.01 10*3/uL [place] Eosinophils/100 WBC (Bld) 0.1 % 0 - 6 % [place] Erythrocyte distribution width (RBC) [Ratio] 17.2 fL High 11.5 - 15 fL [place] Hematocrit (Bld) [Volume fraction] 37.2 % 34 - 48 % [place] Hemoglobin (Bld) [Mass/Vol] 11.0 g/dL Low 11.5 - 15.5 g/dL [place] Immature granulocytes (Bld) [#/Vol] 0.13 10*3/uL E9/L [place] Immature granulocytes/100 WBC (Bld) 1.5 % 0 - 5 % [place] Interpretation and review of laboratory results Abnormal [place] Lymphocytes (Bld) [#/Vol] 2.81 10*3/uL [place] Lymphocytes/100 WBC (Bld) 31.5 % 20 - 42 % [place] MCH (RBC) [Entitic mass] 21.0 pg Low 26 - 35 pg [place] MCHC (RBC) [Mass/Vol] 29.6 % Low 32 - 34.5 % [place] MCV (RBC) [Entitic vol] 70.9 fL Low 80 - 99.9 fL [place] Monocytes (Bld) [#/Vol] 0.50 10*3/uL [place] Monocytes/100 WBC (Bld) 5.6 % 2 - 12 % [place] Neutrophils Absolute 5.45 [place] Neutrophils/100 WBC (Bld) 61.2 % 43 - 80 % [place] Platelet mean volume (Bld) [Entitic vol] 10.2 fL 7 - 12 fL [place] Platelets (Bld) [#/Vol] 318 10*3/uL [place] RBC (Bld) [#/Vol] 5.25 10*6/uL [place] WBC (Bld) [#/Vol] 8.9 10*3/uL [place] Hepatic function panelon Albumin [Mass/Vol] 3.8 g/dL 3.5 - 5.2 g/dL [place] ALP [Catalytic activity/Vol] 62 U/L 35 - 104 U/L [place] ALT [Catalytic activity/Vol] 9 U/L 0 - 32 U/L [place] AST [Catalytic activity/Vol] 10 U/L 0 - 31 U/L [place] Bilirubin Ql (U) <0.2 0 - 1.2 mg/dL [place] Bilirubin, Indirect see below 0 - 1 mg/dL [place] Comment on above: Indirect Bilirubin c annot be calculated since Total Bilirubin and/or Direct Bilirubin is below measurable range. Bilirubin.direct [Mass/Vol] mg/dL 0 - 0.3 mg/dL [place] Protein [Mass/Vol] 5.5 g/dL Low 6.4 - 8.3 g/dL [place] Magnesiumon 01-18-2019 Magnesium [Mass/Vol] 2.3 mg/dL 1.6 - 2 .6 mg/dL [place] Otheron 01-18-2019 Interpretation and review of laboratory results Abnormal [place] ANAon 01-17-2019 Nuclear Ab IF (S) [Titer] Negative NEGATIVE [place] Comment on above: NEGATIVE: <=16 years <1:10 >16 years <1:40 Basic Metabolic Panel w/ Ref jyoti to MGon 01-17-2019 Anion gap [Moles/Vol] 10 mmol/L 7 - 16 mmol/L [place] Calcium [Mass/Vol] 8.4 mg/dL Low 8.6 - 10. 2 mg/dL [place] Chloride [Moles/Vol] 106 mmol/L 98 - 10 7 mmol/L [place] CO2 [Moles/Vol] 27 mmol/L 22 - 29 mmol/L [place] Creatinine [Mass/Vol] 0.6 mg/dL 0.5 - 1 mg/dL [place] GFR >60 [place] GFR Non- >60 >=60 mL/min/1.73 [place] Comment on above: Chronic Kidney Disea se: less than 60 ml/min/1.73 sq.m. Kidney Failure: less than 15 ml/min/1.73 sq.m. Results valid for patients 18 years and older. Glucose [Mass/Vol] 111 mg/dL High 74 - 99 mg/dL [place] Potassium [Moles/Vol] 4.5 mmol/L 3.5 - 5 mmol/L [place] Sodium [Moles/Vol] 143 mmol/L 132 - 146 mmol/L [place] Urea nitrogen [Mass/Vol] 9 mg/dL 6 - 20 mg/dL [place] CBC auto differentialon 01-06 Basophils (Bld) [#/Vol] 0.01 10*3/uL [place] Basophils/100 WBC (Bld) 0.1 % 0 - 2 % M [place] Eosinophils (Bld) [#/Vol] 0.01 10*3/uL [place] Eosinophils/100 WBC (Bld) 0.1 % 0 - 6 % [place] Erythrocyte distribution width (RBC) [Ratio] 16.7 fL High 11.5 - 15 fL [place] Hematocrit (Bld) [Volume fraction] 36.3 % 34 - 48 % [place] Hemoglobin (Bld) [Mass/Vol] 10.9 g/dL Low 11.5 - 15.5 g/dL [place] Immature granulocytes (Bld) [#/Vol] 0.05 10*3/uL E9/L [place] Immature granulocytes/100 WBC (Bld) 0.7 % 0 - 5 % [place] Interpretation and review of laboratory results Abnormal [place] Lymphocytes (Bld) [#/Vol] 1.79 10*3/uL [place] Lymphocytes/100 WBC (Bld) 24.7 % 20 - 42 % [place] MCH (RBC) [Entitic mass] 21.4 pg Low 26 - 35 pg [place] MCHC (RBC) [Mass/Vol] 30.0 % Low 32 - 34.5 % [place] MCV (RBC) [Entitic vol] 71.2 fL Low 80 - 99.9 fL [place] Monocytes (Bld) [#/Vol] 0.36 10*3/uL [place] Monocytes/100 WBC (Bld) 5.0 % 2 - 12 % [place] Neutrophils Absolute 5.04 [place] Neutrophils/100 WBC (Bld) 69.4 % 43 - 80 % [place] Platelet mean volume (Bld) [Entitic vol] 10.4 fL 7 - 12 fL [place] Platelets (Bld) [#/Vol] 276 10*3/uL [place] RBC (Bld) [#/Vol] 5.10 10*6/uL [place] WBC (Bld) [#/Vol] 7.3 10*3/uL [place] CT Chest WO Contraston 01-17 1. Bibasilar atelectasis left greater than right with evidence of mild fusiform bronchiectasis as outlined above. Suspected mucous plugging as described. 2. 4 mm pleural-based nodule on the right. 3. Mild cardiomegaly. 4. Splenomegaly. [place] Patient Patient : 1990 Patient Age: [...] ABDOMEN: Enlarged spleen at 16 cm. OTHER:Unremarkable [place] Eliud, Mhy Incoming Radiant Results From [facility] - 01/17/2019 6:35 PM EDT Patient Patient [...] the right. 3. Mild cardiomegaly. 4. Splenomegaly. [place] Hepatic function panelon Albumin [Mass/Vol] 3.6 g/dL 3.5 - 5.2 g/dL [place] ALP [Catalytic activity/Vol] 63 U/L 35 - 104 U/L [place] ALT [Catalytic activity/Vol] 10 U/L 0 - 32 U/L [place] AST [Catalytic activity/Vol] 10 U/L 0 - 31 U/L [place] Bilirubin Ql (U) <0.2 0 - 1.2 mg/dL [place] Bilirubin, Indirect see below 0 - 1 mg/dL [place] Comment on above: Indirect Bilirubin c annot be calculated since Total Bilirubin and/or Direct Bilirubin is below measurable range. Bilirubin.direct [Mass/Vol] mg/dL 0 - 0.3 mg/dL [place] Protein [Mass/Vol] 5.5 g/dL Low 6.4 - 8.3 g/dL [place] IgG, IgA, IgMon 01-17-2019 IgA [Mass/Vol] mg/dL Low 70 - 400 mg/dL [place] Comment on above: This test may not pr ovide accurate results in patients with monoclonal gammopathy. Electrophoresis is suggested if results do not correlate with clinical findings. IgG [Mass/Vol] mg/dL Low 700 - 1600 mg/dL [place] Comment on above: This test may not pr ovide accurate results in patients with monoclonal gammopathy. Electrophoresis is suggested if results do not correlate with clinical findings. IgM [Mass/Vol] mg/dL Low 40 - 230 mg/dL [place] Comment on above: This test may not pr ovide accurate results in patients with monoclonal gammopathy. Electrophoresis is suggested if results do not correlate with clinical findings. Interpretation and review of laboratory results Abnormal [place] Magnesiumon 01-17-2019 Magnesium [Mass/Vol] 2.2 mg/dL 1.6 - 2 .6 mg/dL [place] Otheron 01-17-2019 Interpretation and review of laboratory results Abnormal [place] SPECIMEN REJECTIONon 019 Reason for Rejection see below [place] Comment on above: Unable to perform te sting; unsuitable sputum specimen. To perform testing the specimen will need to be recollected. Sputum Rejected [facility] [place] [place] CALL Mc [id number] tel. , Rejected Test Name/Called to: RORO SRINIVASAN RN, 01/17/2019 07:40, by ANN-MARIE [place] Basic Metabolic Panel w/ Ref jyoti to MGon 01-16-2019 Anion gap [Moles/Vol] 8 mmol/L 7 - 16 mmol/L [place] Calcium [Mass/Vol] 8.5 mg/dL Low 8.6 - 10. 2 mg/dL [place] Chloride [Moles/Vol] 106 mmol/L 98 - 10 7 mmol/L [place] CO2 [Moles/Vol] 27 mmol/L 22 - 29 mmol/L [place] Creatinine [Mass/Vol] 0.7 mg/dL 0.5 - 1 mg/dL [place] GFR >60 [place] GFR Non- >60 >=60 mL/min/1.73 [place] Comment on above: Chronic Kidney Disea se: less than 60 ml/min/1.73 sq.m. Kidney Failure: less than 15 ml/min/1.73 sq.m. Results valid for patients 18 years and older. Glucose [Mass/Vol] 184 mg/dL High 74 - 99 mg/dL [place] Potassium [Moles/Vol] 4.5 mmol/L 3.5 - 5 mmol/L [place] Sodium [Moles/Vol] 141 mmol/L 132 - 146 mmol/L [place] Urea nitrogen [Mass/Vol] 8 mg/dL 6 - 20 mg/dL [place] C-Reactive Proteinon 019 CRP [Mass/Vol] 7.5 mg/dL High 0 - 0.4 mg/dL [place] Interpretation and review of laboratory results Abnormal [place] CBC auto differentialon 01-06 Basophils (Bld) [#/Vol] 0.00 10*3/uL [place] Basophils/100 WBC (Bld) 0.0 % 0 - 2 % M [place] Eosinophils (Bld) [#/Vol] 0.00 10*3/uL [place] Eosinophils/100 WBC (Bld) 0 % 0 - 6 % [place] Erythrocyte distribution width (RBC) [Ratio] 16.5 fL High 11.5 - 15 fL [place] Hematocrit (Bld) [Volume fraction] 37.1 % 34 - 48 % [place] Hemoglobin (Bld) [Mass/Vol] 11.0 g/dL Low 11.5 - 15.5 g/dL [place] Immature granulocytes (Bld) [#/Vol] 0.03 10*3/uL E9/L [place] Immature granulocytes/100 WBC (Bld) 0.7 % 0 - 5 % [place] Interpretation and review of laboratory results Abnormal [place] Lymphocytes (Bld) [#/Vol] 1.05 10*3/uL [place] Lymphocytes/100 WBC (Bld) 24.2 % 20 - 42 % [place] MCH (RBC) [Entitic mass] 21.2 pg Low 26 - 35 pg [place] MCHC (RBC) [Mass/Vol] 29.6 % Low 32 - 34.5 % [place] MCV (RBC) [Entitic vol] 71.3 fL Low 80 - 99.9 fL [place] Monocytes (Bld) [#/Vol] 0.16 10*3/uL [place] Monocytes/100 WBC (Bld) 3.7 % 2 - 12 % M [place] Neutrophils Absolute 3.10 [place] Neutrophils/100 WBC (Bld) 71.4 % 43 - 80 % [place] Platelet mean volume (Bld) [Entitic vol] 10.4 fL 7 - 12 fL [place] Platelets (Bld) [#/Vol] 232 10*3/uL [place] RBC (Bld) [#/Vol] 5.20 10*6/uL [place] WBC (Bld) [#/Vol] 4.3 10*3/uL [place] Hepatic function panelon Albumin [Mass/Vol] 3.7 g/dL 3.5 - 5.2 g/dL [place] ALP [Catalytic activity/Vol] 71 U/L 35 - 104 U/L [place] ALT [Catalytic activity/Vol] 10 U/L 0 - 32 U/L [place] AST [Catalytic activity/Vol] 12 U/L 0 - 31 U/L [place] Bilirubin Ql (U) <0.2 0 - 1.2 mg/dL [place] Bilirubin, Indirect see below 0 - 1 mg/dL [place] Comment on above: Indirect Bilirubin c annot be calculated since Total Bilirubin and/or Direct Bilirubin is below measurable range. Bilirubin.direct [Mass/Vol] mg/dL 0 - 0.3 mg/dL [place] Protein [Mass/Vol] 5.7 g/dL Low 6.4 - 8.3 g/dL [place] Magnesiumon 01-16-2019 Magnesium [Mass/Vol] 2.5 mg/dL 1.6 - 2 .6 mg/dL [place] Otheron 01-16-2019 Interpretation and review of laboratory results Abnormal [place] Procalcitoninon 01-16-2019 Procalcitonin <0.02 0 - 0.08 ng/mL [place] Respiratory Panel, Film Arra yon 01-16-2019 Film Array Bordetella Pertusis Result: Not Detected * * Normal Range: Not Detected [place] Film Array Chlamydophilia Pneumoniae Result: Not Detected * * Normal Range: Not Detected [place] Film Array Conoravirus NL63 Result: Not Detected * * Normal Range: Not Detected [place] Film Array Coronavirus 229E Result: Not Detected * * Normal Range: Not Detected [place] Film Array Coronavirus HKU1 Result: Not Detected * * Normal Range: Not Detected [place] Film Array Coronavirus OC43 Result: Not Detected * * Normal Range: Not Detected [place] Film Array Influenza A Virus Result: Not Detected * * Normal Range: Not Detected [place] Film Array Influenza A Virus 09H1 Result: Not Detected * * Normal Range: Not Detected [place] Film Array Influenza A Virus H1 Result: Not Detected * * Normal Range: Not Detected [place] Film Array Influenza A Virus H3 Result: Not Detected * * Normal Range: Not Detected [place] Film Array Influenza B Result: Not Detec noel * * Normal Range: Not Detected [place] Film Array Metapneumovirus Result: Not Detected * * Normal Range: Not Detected [place] Film Array Mycoplasma Pneumoniae Result: Not Detected * * Normal Range: Not Detected [place] Film Array Parainfluenza Virus 1 Result: Not Detected * * Normal Range: Not Detected [place] Film Array Parainfluenza Virus 2 Result: Not Detected * * Normal Range: Not Detected [place] Film Array Parainfluenza Virus 3 Result: Not Detected * * Normal Range: Not Detected [place] Film Array Parainfluenza Virus 4 Result: Not Detected * * Normal Range: Not Detected [place] Film Array Respiratory Syncitial Virus Result: Not Detected * * Normal Range: Not Detected [place] Interpretation and review of laboratory results Abnormal [place] Organism FILM ARR Rhinovirus/Enterovir us Detected Abnormal [place] Organism FILM ARR Adenovirus Detected Abnormal [place] Source: [employer] Site: [employer]ose[facility]ose [place] CBC Auto Differentialon 01-06 Basophils (Bld) [#/Vol] 0.01 10*3/uL [place] Basophils/100 WBC (Bld) 0.2 % 0 - 2 % M [place] Eosinophils (Bld) [#/Vol] 0.07 10*3/uL [place] Eosinophils/100 WBC (Bld) 1.1 % 0 - 6 % [place] Erythrocyte distribution width (RBC) [Ratio] 16.9 fL High 11.5 - 15 fL [place] Hematocrit (Bld) [Volume fraction] 38.5 % 34 - 48 % [place] Hemoglobin (Bld) [Mass/Vol] 11.4 g/dL Low 11.5 - 15.5 g/dL [place] Immature granulocytes (Bld) [#/Vol] 0.03 10*3/uL E9/L [place] Immature granulocytes/100 WBC (Bld) 0.5 % 0 - 5 % [place] Interpretation and review of laboratory results Abnormal [place] Lymphocytes (Bld) [#/Vol] 1.56 10*3/uL [place] Lymphocytes/100 WBC (Bld) 25.5 % 20 - 42 % [place] MCH (RBC) [Entitic mass] 21.2 pg Low 26 - 35 pg [place] MCHC (RBC) [Mass/Vol] 29.6 % Low 32 - 34.5 % [place] MCV (RBC) [Entitic vol] 71.4 fL Low 80 - 99.9 fL [place] Monocytes (Bld) [#/Vol] 0.60 10*3/uL [place] Monocytes/100 WBC (Bld) 9.8 % 2 - 12 % M [place] Neutrophils Absolute 3.85 [place] Neutrophils/100 WBC (Bld) 62.9 % 43 - 80 % [place] Platelet mean volume (Bld) [Entitic vol] 10.0 fL 7 - 12 fL [place] Platelets (Bld) [#/Vol] 233 10*3/uL [place] RBC (Bld) [#/Vol] 5.39 10*6/uL [place] WBC (Bld) [#/Vol] 6.1 10*3/uL [place] Comprehensive Metabolic Pane stuart 01-15-2019 Albumin [Mass/Vol] 3.6 g/dL 3.5 - 5.2 g/dL [place] ALP [Catalytic activity/Vol] 71 U/L 35 - 104 U/L [place] ALT [Catalytic activity/Vol] 10 U/L 0 - 32 U/L [place] Anion gap [Moles/Vol] 8 mmol/L 7 - 16 mmol/L [place] AST [Catalytic activity/Vol] 18 U/L 0 - 31 U/L [place] Bilirubin Ql (U) 0.2 mg/dL 0 - 1.2 mg/dL [place] Calcium [Mass/Vol] 8.7 mg/dL 8.6 - 10. 2 mg/dL [place] Chloride [Moles/Vol] 101 mmol/L 98 - 10 7 mmol/L [place] CO2 [Moles/Vol] 30 mmol/L High 22 - 29 mmol/L [place] Creatinine [Mass/Vol] 0.8 mg/dL 0.5 - 1 mg/dL [place] GFR >60 [place] GFR Non- >60 >=60 mL/min/1.73 [place] Comment on above: Chronic Kidney Disea se: less than 60 ml/min/1.73 sq.m. Kidney Failure: less than 15 ml/min/1.73 sq.m. Results valid for patients 18 years and older. Glucose [Mass/Vol] 82 mg/dL 74 - 99 mg/dL [facility], [place] Interpretation and review of laboratory results Abnormal [place] Potassium [Moles/Vol] 4.5 mmol/L 3.5 - 5 mmol/L [facility], [place] Protein [Mass/Vol] 5.6 g/dL Low 6.4 - 8.3 g/dL [place] Sodium [Moles/Vol] 139 mmol/L 132 - 146 mmol/L [facility], [place] Urea nitrogen [Mass/Vol] 8 mg/dL 6 - 20 mg/dL [facility], [place] EKG 12 Leadon 01-15-2019 Atrial Rate 116 BPM [place] P [place] 66 degrees [facility], [place] P-R Interval 128 ms [facility], [place] Q-T Interval 334 ms [facility], [place] QRS Duration 92 ms [place] QTc Calculation (Bazett) 464 ms [facility] R [place] 25 degrees [facility] T [place] 16 degrees [facility] Ventricular Rate 116 BPM [facility], [place] Eliud, Mhy Incoming Ekg Results From 01/15/2019 9:02 PM EDT Sinus tachycardia Otherwise normal ECG When compared with ECG of 12-DEC-2018 14:17, No significant change was found Confirmed by Ilan Gonzalez ([id number]) on 01/15/2019 9:01:50 PM [place] Sinus tachycardia Otherwise normal ECG When compared with ECG of 12-DEC-2018 14:17, No significant change was found Confirmed by Ilan Gonzalez ([id number]) on 01/15/2019 9:01:50 PM [facility], [place] Lactic Acid, Plasmaon 2018 Lactate [Moles/Vol] 0.7 mmol/L 0.5 - 2. 2 mmol/L [place] Strep Screen Group A Throato n 01-15-2019 Strep Grp A PCR Positive Negative [facility] [place] Comment on above: Positive for Strep A nucleic acid. XR CHEST STANDARD (2 VW)on 0 01-15-2019 Air space disease , at the left lung base which could be related to mild atelectasis or mild pneumonia [place] Eliud, Mhy Incoming Radiant Results From [facility] - 01/15/2019 5:30 PM EDT Patient : [...] related to mild atelectasis or mild pneumonia [facility] [place] Patient : 1990 Age: 28 years Gender: Female Order Date: 01/15/2019 5:00 PM Exam: XR CHEST (2 VW) Number of Images: 2 views Indication: cough, rib pain cough, rib pain Comparison: None. Findings: The heart is unremarkable. The lung pittman demonstrate evidence for air space disease. The aorta is unremarkable. [place] Vital Signs Date Time Vital Sign Value Performing Clinician Facility 03-19-2025 16:23-0500 SaO2% (BldA) [Mass fraction] 97 % LOUANN BERMEO [facility] Comment on above: Order Comment: Specimen Type: ARTERIAL B LOOD SPECIMENOrdering Facility: [facility] Address: [address] [place] [address] Performed By: #### A LLBG ####[facility] LABCLIA [id number] [place] [address] [place] 03-19-2025 10:42-0500 SaO2% (BldA) [Mass fraction] 98 % LOUANN BERMEO [facility] Comment on above: Order Comment: Specimen Type: ARTERIAL B LOOD SPECIMENOrdering Facility: [facility] Address: [address] [place] [address] Performed By: #### A LLBG ####[facility] LABCLIA [id number] [place] [id number] [facility] 03-19-2025 06:41-0500 SaO2% (BldA) [Mass fraction] 99 % LOUANN BERMEO [facility] Comment on above: Order Comment: Specimen Type: ARTERIAL B LOOD SPECIMENOrdering Facility: [facility] Address: [address] [place] [address] Performed By: #### A LLBG ####[facility] LABIA [id number] [place] [id number] [facility] [place] 03-19-2025 00:38-0500 SaO2% (BldA) [Mass fraction] 99 % LOUANN BERMEO [facility] Comment on above: Order Comment: Specimen Type: ARTERIAL B LOOD SPECIMENOrdering Facility: [facility] Address: [address] [place] [address] Performed By: #### A LLBG ####[facility] [id number] [place] [id number] [place] 03-18-2025 20:35-0500 SaO2% (BldA) [Mass fraction] 98 % LOUANN BERMEO [facility] Comment on above: Order Comment: Specimen Type: ARTERIAL B LOOD SPECIMENOrdering Facility: [facility] Address: [address] [place] [address] Performed By: #### A LLBG ####[facility] LABCLIA [id number] [place] [id number] [facility] [place] 03-18-2025 17:01-0500 SaO2% (BldA) [Mass fraction] 94 % LOUANN BERMEO [facility] Comment on above: Order Comment: Specimen Type: ARTERIAL B LOOD SPECIMENOrdering Facility: [facility] Address: [address] [place] [address] Performed By: #### A LLBG ####[facility] LABCLIA [id number] [place] [id number] [place] 03-18-2025 15:19-0500 SaO2% (BldA) [Mass fraction] 96 % LOUANN BERMEO [facility] Comment on above: Order Comment: Specimen Type: ARTERIAL B LOOD SPECIMENOrdering Facility: [facility] Address: [address] [place] [address] Performed By: #### A LLBG ####[facility] [place] LABCLIA [id number] [place] [id number] [facility] 02-20-2025 13:37-0400 Body temperature 98.6 [degF] Louann Bermeo [employer] Work Phone: [facility] 02-20-2025 13:37-0400 Diastolic blood pressure 62 mm[Hg] Louann Bermeo [employer] Work Phone: [facility] 02-20-2025 13:37-0400 Heart rate 77 /min Louann Bermeo [employer] Work Phone: [facility] 02-20-2025 13:37-0400 Respiratory rate 14 /min Louann Bermeo [employer] Work Phone: [facility] 02-20-2025 13:37-0400 SaO2% (BldA) [Mass fraction] 100 % Louann Bermeo [employer] Work Phone: [facility] 02-20-2025 13:37-0400 Systolic blood pressure 115 mm[Hg] Louann Bermeo [employer] Work Phone: [facility] 02-20-2025 13:00-0400 Inhaled oxygen flow rate 5.5 L/min Louann Bermeo [employer] Work Phone: [facility] 02-20-2025 09:39-0400 Body mass index (BMI) [Ratio] 57.5 kg/m2 Louann Bermeo [employer] Work Phone: [facility] 02-20-2025 09:39-0400 Body weight 192.5 kg Louann Bermeo [employer] Work Phone: [facility] 02-20-2025 09:36-0400 Body height 182.88 cm Louann Bermeo [employer] Work Phone: [facility] 01-01-2025 08:12-0400 Body mass index (BMI) [Ratio] 57.5 kg/m2 Jeni Solange [employer] TECHNICIAN Work Phone: [facility] 01-01-2025 08:12-0400 Body weight 192.32 kg Jeni Solange [employer] TECHNICIAN Work Phone: [facility] 01-01-2025 08:12-0400 Diastolic blood pressure 74 mm[Hg] Jeni Solange [employer] SYSTEM[employer] TECHNICIAN Work Phone: [facility] 01-01-2025 08:12-0400 Heart rate 74 /min Jeni Solange [employer] TECHNICIAN Work Phone: [facility] 01-01-2025 08:12-0400 Respiratory rate 16 /min Jeni Solange [employer] SYSTEMS TECHNICIAN Work Phone: [facility] 01-01-2025 08:12-0400 SaO2% (BldA) [Mass fraction] 100 % Jeni Solange [employer] SYSTEMS TECHNICIAN Work Phone: [facility] 01-01-2025 08:12-0400 Systolic blood pressure 115 mm[Hg] Jeni Solange [employer] SYSTEMS TECHNICIAN Work Phone: [facility] 12-17-2024 14:30-0400 Body height 182.[address] Work Phone: [facility] 12-17-2024 14:30-0400 Body mass index (BMI) [Ratio] 57.23 kg/m2 Osman Pedrozao RD Work Phone: [facility] 12-17-2024 14:30-0400 Body weight 191.[address] Work Phone: [facility] Comment on above: per patient report 11-26-2024 12:07-0400 Body height 182.[address] Work Phone: [facility] 11-26-2024 12:07-0400 Body mass index (BMI) [Ratio] 57.64 kg/m2 Osman Lily RD Work Phone: [facility] 11-26-2024 12:07-0400 Body weight 192.[address] Work Phone: [facility] Comment on above: per patient report 11-13-2024 19:43-0400 Body temperature 97.4 [degF] Louann Bermeo [employer] Work Phone: [facility] 11-13-2024 19:43-0400 Diastolic blood pressure 88 mm[Hg] Louann Bermeo [employer] Work Phone: [phone] [place] [address] 11-13-2024 19:43-0400 Heart rate 88 /min Louann Bermeo [employer] Work Phone: [facility] 11-13-2024 19:43-0400 Respiratory rate 18 /min Louann Bermeo [employer] Work Phone: [phone] [place] [address] 11-13-2024 19:43-0400 SaO2% (BldA) [Mass fraction] 95 % Louann Bermeo [employer] Work Phone: [facility] 11-13-2024 19:43-0400 Systolic blood pressure 140 mm[Hg] Louann Bermeo [employer] Work Phone: [facility] 11-13-2024 19:37-0400 Body mass index (BMI) [Ratio] 57.9 kg/m2 Louann Bermeo [employer] Work Phone: [facility] 11-13-2024 19:37-0400 Body weight 193.9 kg Louann Bermeo [employer] Work Phone: [facility] 11-13-2024 18:44-0400 Body height 182.88 cm Louann Bermeo [employer] Work Phone: [phone] [place] [address] 11-13-2024 18:44-0400 Inhaled oxygen flow rate 2 L/min Louann NELSON Work Phone: [facility] 10-21-2024 10:18-0400 Body height 182.[address] Work Phone: [facility] 10-21-2024 10:18-0400 Body mass index (BMI) [Ratio] 59.13 kg/m2 Osman Silvadevoraho RD Work Phone: [facility] 10-21-2024 10:18-0400 Body weight 197.[address] Work Phone: [facility] Comment on above: verbal per patient 09-18-2024 08:06-0400 Body mass index (BMI) [Ratio] 61.4 kg/m2 Krislyn Aberegg PA Work Phone: [facility] 09-18-2024 08:06-0400 Body temperature 97.59 [degF] Krislyn Aberegg PA Work Phone: [facility] 09-18-2024 08:06-0400 Body weight 199.7 kg Krislyn Aberegg PA Work Phone: [facility] 09-18-2024 08:06-0400 Diastolic blood pressure 80 mm[Hg] Krislyn Aberegg PA Work Phone: [facility] 09-18-2024 08:06-0400 Heart rate 67 /min Krislyn Aberegg PA Work Phone: [facility] 09-18-2024 08:06-0400 Respiratory rate 18 /min Krislyn Aberegg PA Work Phone: [facility] 09-18-2024 08:06-0400 SaO2% (BldA) [Mass fraction] 98 % Krislyn Aberegg PA Work Phone: [facility] 09-18-2024 08:06-0400 Systolic blood pressure 128 mm[Hg] Krislyn Aberegg PA Work Phone: [facility] 09-12-2024 14:03-0400 Body mass index (BMI) [Ratio] 61.23 kg/m2 Elisa Jean MD Work Phone: [facility] 09-12-2024 14:03-0400 Body weight 199.13 kg Elisa Jean MD Work Phone: [facility] 09-06-2024 16:30-0400 Body temperature 98.1 [degF] Louann [employer] Work Phone: [facility] 09-06-2024 16:30-0400 Diastolic blood pressure 84 mm[Hg] Louann Bermeo [employer] Work Phone: [facility] 09-06-2024 16:30-0400 Heart rate 86 /min Louann Bermeo [employer] Work Phone: [facility] 09-06-2024 16:30-0400 Inhaled oxygen flow rate 5 L/min Louann Bermeo [employer] Work Phone: [facility] 09-06-2024 16:30-0400 Respiratory rate 18 /min Louann Bermeo [employer] Work Phone: [facility] 09-06-2024 16:30-0400 SaO2% (BldA) [Mass fraction] 96 % Louann Bermeo [employer] Work Phone: [facility] 09-06-2024 16:30-0400 Systolic blood pressure 130 mm[Hg] Louann Bermeo [employer] Work Phone: [facility] 09-06-2024 07:05-0400 Inhaled oxygen concentration 40 % Louann Bermeo [employer] Work Phone: [facility] 09-06-2024 03:37-0400 Body mass index (BMI) [Ratio] 60 kg/m2 Louann Bermeo [employer] Work Phone: [facility] 09-06-2024 03:37-0400 Body weight 200.9 kg Louann Bermeo [employer] Work Phone: [facility] 09-04-2024 09:53-0400 Body height 182.88 cm Louann Bermeo [employer] Work Phone: [facility] 08-27-2024 08:50-0400 Body height 180.3 cm Pulm Wstr Work Phone: [facility] 08-27-2024 08:50-0400 Body mass index (BMI) [Ratio] 61.23 kg/m2 Pulm Wstr Work Phone: [facility] 08-27-2024 08:50-0400 Body weight 199.13 kg Pulm Wstr Work Phone: [facility] 08-27-2024 08:50-0400 Heart rate 89 /min Pulm Wstr Work Phone: [facility] 08-27-2024 08:50-0400 SaO2% (BldA) [Mass fraction] 94 % Pulm Wstr Work Phone: [facility] Comment on above: 4L 08-27-2024 08:37-0400 SaO2% (BldA) [Mass fraction] 93 % Radha Click STABLE CLEANER.CERTIFIED CONTROL SYSTEMS TECHNICIAN Work Phone: [facility] Comment on above: 4L 08-27-2024 08:06-0400 Body mass index (BMI) [Ratio] 61.23 kg/m2 Radha Click STABLE CLEANER.CERTIFIED CONTROL SYSTEMS TECHNICIAN Work Phone: [facility] 08-27-2024 08:06-0400 Body weight 199.13 kg Radha Click STABLE CLEANER.CERTIFIED CONTROL SYSTEMS TECHNICIAN Work Phone: [facility] 08-27-2024 08:06-0400 Diastolic blood pressure 73 mm[Hg] Radha Click STABLE CLEANER.CERTIFIED CONTROL SYSTEMS TECHNICIAN Work Phone: [facility] 08-27-2024 08:06-0400 Heart rate 108 /min Radha Click STABLE CLEANER.CERTIFIED CONTROL SYSTEMS TECHNICIAN Work Phone: [facility] 08-27-2024 08:06-0400 Respiratory rate 17 /min Radha Click STABLE CLEANER.CERTIFIED CONTROL SYSTEMS TECHNICIAN Work Phone: [facility] 08-27-2024 08:06-0400 Systolic blood pressure 104 mm[Hg] Radha Chapman STABLE CLEANER.CERTIFIED CONTROL SYSTEMS TECHNICIAN Work Phone: [facility] 07-18-2024 08:05-0400 Body mass index (BMI) [Ratio] 59.34 kg/m2 Louann Bermeo STABLE CLEANER.CERTIFIED CONTROL SYSTEMS TECHNICIAN Work Phone: [facility] 07-18-2024 08:05-0400 Body weight 193 kg Louann Bermeo STABLE CLEANER.CERTIFIED CONTROL SYSTEMS TECHNICIAN Work Phone: [facility] 07-18-2024 08:05-0400 Diastolic blood pressure 77 mm[Hg] Louann Bermeo STABLE CLEANER.CERTIFIED CONTROL SYSTEMS TECHNICIAN Work Phone: [facility] 07-18-2024 08:05-0400 Heart rate 108 /min Louann Bermeo STABLE CLEANER.CERTIFIED CONTROL SYSTEMS TECHNICIAN Work Phone: [facility] 07-18-2024 08:05-0400 Systolic blood pressure 149 mm[Hg] Louann Bermeo STABLE CLEANER.CERTIFIED CONTROL SYSTEMS TECHNICIAN Work Phone: [facility] 05-26-2024 21:01-0500 Body temperature 99.8 [degF] Louann Bermeo [employer] Work Phone: [facility] 05-26-2024 21:01-0500 Diastolic blood pressure 42 mm[Hg] Louann Bermeo [employer] Work Phone: [facility] 05-26-2024 21:01-0500 Heart rate 99 /min Louann Bermeo [employer] Work Phone: [facility] 05-26-2024 21:01-0500 Respiratory rate 20 /min Louann Bermeo [employer] Work Phone: [facility] 05-26-2024 21:01-0500 SaO2% (BldA) [Mass fraction] 97 % Louann Bermeo [employer] Work Phone: [facility] 05-26-2024 21:01-0500 Systolic blood pressure 113 mm[Hg] Louann Bermeo [employer] Work Phone: [facility] 05-26-2024 21:00-0500 Inhaled oxygen flow rate 5 L/min Louann Bermeo [employer] Work Phone: [facility] 05-26-2024 20:09-0500 Inhaled oxygen concentration 5 % Louann Bermeo [employer] Work Phone: [facility] 05-26-2024 19:46-0500 Body mass index (BMI) [Ratio] 57.2 kg/m2 Louann Bermeo [employer] Work Phone: [facility] 05-26-2024 19:46-0500 Body weight 191.41 kg Louann Bermeo [employer] Work Phone: [facility] 04-28-2024 12:39-0500 Body mass index (BMI) [Ratio] 58.05 kg/m2 Liberty Weir STABLE CLEANER.CERTIFIED CONTROL SYSTEMS TECHNICIAN Work Phone: [facility] 04-28-2024 12:39-0500 Body temperature 98.49 [degF] Liberty Weir STABLE CLEANER.CERTIFIED CONTROL SYSTEMS TECHNICIAN Work Phone: [facility] 04-28-2024 12:39-0500 Body weight 188.8 kg Liberty Weir STABLE CLEANER.CERTIFIED CONTROL SYSTEMS TECHNICIAN Work Phone: [facility] 04-28-2024 12:39-0500 Diastolic blood pressure 84 mm[Hg] Liberty Weir STABLE CLEANER.CERTIFIED CONTROL SYSTEMS TECHNICIAN Work Phone: [facility] 04-28-2024 12:39-0500 Heart rate 116 /min Liberty Weir STABLE CLEANER.CERTIFIED CONTROL SYSTEMS TECHNICIAN Work Phone: [facility] 04-28-2024 12:39-0500 Respiratory rate 17 /min Liberty Weir STABLE CLEANER.CERTIFIED CONTROL SYSTEMS TECHNICIAN Work Phone: [facility] 04-28-2024 12:39-0500 SaO2% (BldA) [Mass fraction] 63 % Liberty Weir STABLE CLEANER.CERTIFIED CONTROL SYSTEMS TECHNICIAN Work Phone: [facility] 04-28-2024 12:39-0500 Systolic blood pressure 132 mm[Hg] Liberty Claygs STABLE CLEANER.CERTIFIED CONTROL SYSTEMS TECHNICIAN Work Phone: [facility] 04-12-2024 13:35-0500 Diastolic blood pressure 73 mm[Hg] Louann Bermeo STABLE CLEANER.CERTIFIED CONTROL SYSTEMS TECHNICIAN Work Phone: [facility] 04-12-2024 13:35-0500 Heart rate 86 /min Louann Jean-Claude STABLE CLEANER.CERTIFIED CONTROL SYSTEMS TECHNICIAN Work Phone: [facility] 04-12-2024 13:35-0500 Respiratory rate 14 /min Louann Yanioble STABLE CLEANER.CERTIFIED CONTROL SYSTEMS TECHNICIAN Work Phone: [facility] 04-12-2024 13:35-0500 Systolic blood pressure 117 mm[Hg] Louann Bermeo STABLE CLEANER.CERTIFIED CONTROL SYSTEMS TECHNICIAN Work Phone: [facility] 04-01-2024 07:00-0500 Body temperature 97.7 [degF] OLGA URBANO MD [facility] 04-01-2024 07:00-0500 Diastolic Blood Pressure Non-Invasive 74 mm[Hg] OLGA URBANO MD [facility] 04-01-2024 07:00-0500 Heart rate 68 /min OLGA URBANO MD [facility] 04-01-2024 07:00-0500 Respiratory rate 17 /min OLGA URBANO MD [facility] 04-01-2024 07:00-0500 Systolic Blood Pressure Non-Invasive 112 mm[Hg] OLGA URBANO MD [facility] 04-01-2024 06:20-0500 Heart rate 65 /min OLGA URBANO MD [facility] 04-01-2024 04:28-0500 Body weight 173.4 kg OLGA URBANO MD [facility] 04-01-2024 03:27-0500 Blood Pressure Cuff Size OLGA URBANO MD [address] [place] [address] 04-01-2024 03:27-0500 Blood Pressure Location OLGA URBANO MD [address] [place] [address] 04-01-2024 03:27-0500 Blood Pressure Method OLGA URBANO MD [address] 04-01-2024 03:27-0500 Body temperature 98.06 [degF] OLGA URBANO MD [address] [place] [address] 04-01-2024 03:27-0500 Diastolic Blood Pressure Non-Invasive 76 mm[Hg] OLGA URBANO MD [address] 04-01-2024 03:27-0500 Heart rate 75 /min OLGA URBANO MD [address] 04-01-2024 03:27-0500 Reason For Taking VItal Signs OLGA URBANO MD [address] [place] [address] 04-01-2024 03:27-0500 Respiratory rate 16 /min OLGA URBANO MD [address] 04-01-2024 03:27-0500 Systolic Blood Pressure Non-Invasive 128 mm[Hg] OLGA URBANO MD [address] 04-01-2024 03:03-0500 Heart rate 74 /min OLGA URBANO MD [address] [place] [address] 04-01-2024 03:03-0500 Respiratory rate 18 /min OLGA URBANO MD [address] [place] [address] 04-01-2024 02:09-0500 Body temperature 98.24 [degF] OLGA URBANO MD [address] [place] [address] 04-01-2024 02:09-0500 Diastolic Blood Pressure Non-Invasive 63 mm[Hg] OLGA URBANO MD [address] [place] [address] 04-01-2024 02:09-0500 Heart rate 60 /min OLGA URBANO MD [facility] 04-01-2024 02:09-0500 Systolic Blood Pressure Non-Invasive 109 mm[Hg] OLGA URBANO MD [facility] 03-31-2024 23:32-0500 Heart rate 61 /min OLGA URBANO MD [address] [place] [address] 03-31-2024 23:32-0500 Mean blood pressure 95 mm[Hg] OLGA URBANO MD [address] [place] [address] 03-31-2024 23:32-0500 Reason For Taking VItal Signs OLGA URBANO MD [address] [place] [address] 03-31-2024 19:57-0500 Heart rate 61 /min OLGA URBANO MD [address] [place] [address] 03-31-2024 19:57-0500 Reason For Taking VItal Signs OLGA URBANO MD [address] [place] [address] 03-31-2024 19:08-0500 Mean blood pressure 85 mm[Hg] OLGA URBANO MD [facility] 03-31-2024 14:59-0500 Mean blood pressure 74 mm[Hg] OLGA URBANO MD [facility] 03-31-2024 08:42-0500 Body weight 179 kg OLGA URBANO MD [facility] 03-31-2024 05:50-0500 Body weight 191.4 kg OLGA URBANO MD [address] [place] [address] 2024 21:21-0500 Heart rate 77 /min OLGA URBANO MD [facility] 03-29-2024 23:13-0500 Body height 185 cm OLGA URBANO MD [facility] 03-29-2024 23:13-0500 Body weight 55.51 kg/m2 OLGA URBANO MD [facility] 03-29-2024 21:41-0500 Diastolic Blood Pressure Non-Invasive 68 mm[Hg] SANDEE HILL DO [facility] 03-29-2024 21:41-0500 Heart rate 75 /min SANDEE HILL DO [facility] 03-29-2024 21:41-0500 Respiratory rate 22 /min SANDEE HILL DO [facility] 03-29-2024 21:41-0500 Systolic Blood Pressure Non-Invasive 135 mm[Hg] SANDEE HILL DO [facility] 03-29-2024 19:54-0500 Body temperature 97.52 [degF] SANDEE HILL DO [facility] 03-29-2024 19:47-0500 Diastolic Blood Pressure Non-Invasive 59 mm[Hg] SANDEE HILL DO [facility] 03-29-2024 19:47-0500 Heart rate 75 /min SANDEE HILL DO [facility] 03-29-2024 19:47-0500 Respiratory rate 19 /min SANDEE HILL DO [facility] 03-29-2024 19:47-0500 Systolic Blood Pressure Non-Invasive 112 mm[Hg] SANDEE HILL DO [facility] 03-29-2024 18:45-0500 Diastolic Blood Pressure Non-Invasive 62 mm[Hg] SANDEE HILL DO [facility] 03-29-2024 18:45-0500 Heart rate 66 /min SANDEE HILL DO [facility] 03-29-2024 18:45-0500 Respiratory rate 20 /min SANDEE HUDSON DO [facility] 03-29-2024 18:45-0500 Systolic Blood Pressure Non-Invasive 112 mm[Hg] SANDEE HUDSON DO [facility] 03-29-2024 12:33-0500 Body temperature 99.5 [degF] SANDEE HUDSON DO [facility] 03-29-2024 11:17-0500 Body temperature 101.66 [degF] SANDEE HUDSON DO [facility] 03-29-2024 10:42-0500 SaO2% (BldA) [Mass fraction] 90.7 % SANDEE HUDSON DO [facility] 03-29-2024 10:34-0500 Heart rate 139 /min SANDEE HUDSON DO [facility] 03-29-2024 10:15-0500 Heart rate 129 /min SANDEE HUDSON DO [facility] 03-29-2024 10:09-0500 Blood Pressure Cuff Size SANDEE HUDSON DO [facility] 03-29-2024 10:09-0500 Blood Pressure Location SANDEE HUDSON DO [facility] 03-29-2024 10:09-0500 Blood Pressure Method SANDEE HUDSON DO [facility] 03-29-2024 10:09-0500 Body height 182.9 cm SANDEE HUDSON DO [facility] 03-29-2024 10:09-0500 Body weight 190.9 kg SANDEE HUDSON DO [facility] 03-29-2024 10:09-0500 Heart rate 144 /min SANDEE HUDSON DO [facility] 09-19-2023 11:34-0400 Body mass index (BMI) [Ratio] 56.33 kg/m2 Linette Athy PA-C Work Phone: [facility] 09-19-2023 11:34-0400 Body temperature 97.7 [degF] Linette Athy PA-C Work Phone: [facility] 09-19-2023 11:34-0400 Body weight 183.2 kg Linette Athy PA-C Work Phone: [facility] 09-19-2023 11:34-0400 Diastolic blood pressure 82 mm[Hg] Linette Athy PA-C Work Phone: [facility] 09-19-2023 11:34-0400 Heart rate 100 /min Linette Athy PA-C Work Phone: [facility] 09-19-2023 11:34-0400 Respiratory rate 18 /min Linette Athy PA-C Work Phone: [facility] 09-19-2023 11:34-0400 SaO2% (BldA) [Mass fraction] 93 % Linette Athy PA-C Work Phone: [facility] 09-19-2023 11:34-0400 Systolic blood pressure 128 mm[Hg] Linette Athy PA-C Work Phone: [facility] 08-30-2023 15:52-0400 Body height 182.[address] [facility] 08-30-2023 15:52-0400 Body mass index (BMI) [Ratio] 52.9 kg/m2 [facility] 08-30-2023 15:52-0400 Body temperature 98 [degF] [facility] 08-30-2023 15:52-0400 Body weight 176.[address] [facility] 08-30-2023 15:52-0400 Diastolic blood pressure 96 mm[Hg] [facility] 08-30-2023 15:52-0400 Heart rate 63 /min [facility] 08-30-2023 15:52-0400 Respiratory rate 15 /min [facility] 08-30-2023 15:52-0400 SaO2% (BldA) [Mass fraction] 93 % [facility] 08-30-2023 15:52-0400 Systolic blood pressure 152 mm[Hg] [facility] 08-27-2023 12:09-0400 Body temperature 97.3 [degF] Liberty Weir STABLE CLEANER.CERTIFIED CONTROL SYSTEMS TECHNICIAN Work Phone: [facility] 08-27-2023 12:09-0400 Body weight 181.9 kg Liberty Weir STABLE CLEANER.CERTIFIED CONTROL SYSTEMS TECHNICIAN Work Phone: [facility] 08-27-2023 12:09-0400 Diastolic blood pressure 66 mm[Hg] Liberty Weir STABLE CLEANER.CERTIFIED CONTROL SYSTEMS TECHNICIAN Work Phone: [facility] 08-27-2023 12:09-0400 Heart rate 84 /min Liberty Weir STABLE CLEANER.CERTIFIED CONTROL SYSTEMS TECHNICIAN Work Phone: [facility] 08-27-2023 12:09-0400 Respiratory rate 18 /min Liberty Weir STABLE CLEANER.CERTIFIED CONTROL SYSTEMS TECHNICIAN Work Phone: [facility] 08-27-2023 12:09-0400 Systolic blood pressure 136 mm[Hg] Liberty Weir STABLE CLEANER.CERTIFIED CONTROL SYSTEMS TECHNICIAN Work Phone: [facility] 07-28-2023 13:22-0400 Body height 180.3 cm Bere Holcomb MD Work Phone: [facility] 07-28-2023 13:22-0400 Body weight 184.16 kg Bere Holcomb MD Work Phone: [facility] 07-28-2023 13:22-0400 Diastolic blood pressure 86 mm[Hg] Bere Holcomb MD Work Phone: [facility] 07-28-2023 13:22-0400 Heart rate 102 /min Bere Holcomb MD Work Phone: [facility] 07-28-2023 13:22-0400 Respiratory rate 16 /min Beer Holcomb MD Work Phone: [facility] 07-28-2023 13:22-0400 SaO2% (BldA) [Mass fraction] 93 % Bere Holcomb MD Work Phone: [facility] 07-28-2023 13:22-0400 Systolic blood pressure 120 mm[Hg] Bere Holcomb MD Work Phone: [facility] 06-30-2023 10:13-0500 Body weight 179.17 kg Louann Bermeo APRN.CERTIFIED CONTROL SYSTEMS TECHNICIAN Work Phone: [facility] 06-30-2023 10:13-0500 Diastolic blood pressure 88 mm[Hg] Louann Bermeo APRN.CERTIFIED CONTROL SYSTEMS TECHNICIAN Work Phone: [facility] 06-30-2023 10:13-0500 Heart rate 104 /min Louann Bermeo APRN.CERTIFIED CONTROL SYSTEMS TECHNICIAN Work Phone: [facility] 06-30-2023 10:13-0500 Respiratory rate 18 /min Louann Bermeo APRN.CERTIFIED CONTROL SYSTEMS TECHNICIAN Work Phone: [facility] 06-30-2023 10:13-0500 SaO2% (BldA) [Mass fraction] 92 % Louann Bermeo APRN.CERTIFIED CONTROL SYSTEMS TECHNICIAN Work Phone: [facility] 06-30-2023 10:13-0500 Systolic blood pressure 146 mm[Hg] Louann Bermeo APRN.CERTIFIED CONTROL SYSTEMS TECHNICIAN Work Phone: [facility] 03-31-2023 13:39-0500 Body temperature 97.81 [degF] Kary Garnett APRN.CERTIFIED CONTROL SYSTEMS TECHNICIAN Work Phone: [facility] 03-31-2023 13:39-0500 Body weight 183.71 kg Kary Garnett APRN.CERTIFIED CONTROL SYSTEMS TECHNICIAN Work Phone: [facility] 03-31-2023 13:39-0500 Diastolic blood pressure 100 mm[Hg] Kary Tamir STABLE CLEANER.CERTIFIED CONTROL SYSTEMS TECHNICIAN Work Phone: [facility] 03-31-2023 13:39-0500 Heart rate 99 /min Kary Tamir STABLE CLEANER.CERTIFIED CONTROL SYSTEMS TECHNICIAN Work Phone: [facility] 03-31-2023 13:39-0500 Respiratory rate 20 /min Kary Tamir STABLE CLEANER.CERTIFIED CONTROL SYSTEMS TECHNICIAN Work Phone: [facility] 03-31-2023 13:39-0500 SaO2% (BldA) [Mass fraction] 97 % Kary Tamir STABLE CLEANER.CERTIFIED CONTROL SYSTEMS TECHNICIAN Work Phone: [facility] 03-31-2023 13:39-0500 Systolic blood pressure 152 mm[Hg] Kary Tamir STABLE CLEANER. CERTIFIED CONTROL SYSTEMS TECHNICIAN Work Phone: [facility] 02-07-2022 12:58-0400 Body temperature 98.29 [degF] [place] [facility] [place] 02-07-2022 12:58-0400 Diastolic blood pressure 72 mm[Hg] [place] [facility] [place] 02-07-2022 12:58-0400 Heart rate 99 /min [place] [facility] [place] 02-07-2022 12:58-0400 Respiratory rate 18 /min [place] [facility] [place] 02-07-2022 12:58-0400 SaO2% (BldA) [Mass fraction] 96 % [place] [facility] [place] 02-07-2022 12:58-0400 Systolic blood pressure 118 mm[Hg] [place] [facility] [place] 02-07-2022 08:24-0400 Body height 180.3 cm [place] [facility] [place] 02-07-2022 08:24-0400 Body mass index (BMI) [Ratio] 58.58 kg/m2 [place] [facility] [place] 02-07-2022 08:24-0400 Body weight 190.51 kg [place] [facility] [place] 01-05-2022 13:15-0400 Body temperature 97.59 [degF] [place] [facility] [place] 01-05-2022 13:15-0400 Diastolic blood pressure 65 mm[Hg] [place] [facility] 01-05-2022 13:15-0400 Heart rate 114 /min [place] [facility] 01-05-2022 13:15-0400 Respiratory rate 16 /min [place] [facility] [place] 01-05-2022 13:15-0400 SaO2% (BldA) [Mass fraction] 94 % [place] [facility] 01-05-2022 13:15-0400 Systolic blood pressure 126 mm[Hg] [place] [facility] 01-05-2022 08:33-0400 Body height 185.4 cm [place] [facility] [place] 01-05-2022 08:33-0400 Body mass index (BMI) [Ratio] 55.41 kg/m2 [place] [facility] 01-05-2022 08:33-0400 Body weight 190.51 kg [place] [facility] 12-15-2021 14:16-0400 Body temperature 98.6 [degF] DEMETRIO MORALES MD [facility] 12-15-2021 14:16-0400 Diastolic blood pressure 90 mm[Hg] [facility] 12-15-2021 14:16-0400 Heart rate 83 /min DEMETRIO MORALES MD FACP [facility] 12-15-2021 14:16-0400 Reason For Taking VItal Signs DEMETRIO MORALES MD FACP [facility] 12-15-2021 14:16-0400 Respiratory rate 18 /min DEMETRIO MORALES MD FACP [facility] 12-15-2021 14:16-0400 Systolic blood pressure 160 mm[Hg] DEMETRIO MORALES MD FACP [facility] 12-15-2021 10:16-0400 Heart rate 73 /min DEMETRIO MORALES MD FACP [facility] 12-15-2021 10:16-0400 Respiratory rate 18 /min DEMETRIO MORALES MD FACP [address] [place] [address] 12-15-2021 06:19-0400 Heart rate 64 /min DEMETRIO MORALES MD FACP [address] [place] [address] 12-15-2021 06:19-0400 Respiratory rate 18 /min DEMETRIO MORALES MD FACP [address] [place] [address] 12-15-2021 06:15-0400 Body temperature 98.24 [degF] DEMETRIO MORALES MD FACP [address] [place] [address] 12-15-2021 06:15-0400 Diastolic blood pressure 82 mm[Hg] DEMETRIO MORALES MD FACP [address] [place] [address] 12-15-2021 06:15-0400 Heart rate 68 /min DEMETRIO MORALES MD FACP [address] [place] [address] 12-15-2021 06:15-0400 Reason For Taking VItal Signs DEMETRIO MORALES MD FACP [address] [place] [address] 12-15-2021 06:15-0400 Systolic blood pressure 141 mm[Hg] DEMETRIO MORALES MD FACP [address] [place] [address] 12-15-2021 04:52-0400 Body temperature 98.42 [degF] DEMETRIO MORALES MD FACP [address] [place] [address] 12-15-2021 04:52-0400 Diastolic blood pressure 94 mm[Hg] DEMETRIO MORALES MD FACP [address] [place] [address] 12-15-2021 04:52-0400 Heart rate 78 /min DEMETRIO MORALES MD FACP [address] [place] [address] 12-15-2021 04:52-0400 Mean blood pressure 106 mm[Hg] DEMETRIO MORALES MD FACP [address] [place] [address] 12-15-2021 04:52-0400 Reason For Taking VItal Signs DEMETRIO MORALES MD FACP [address] [place] [address] 12-15-2021 04:52-0400 Systolic blood pressure 129 mm[Hg] DEMETRIO MORALES MD FACP [address] [place] [address] 12-14-2021 18:59-0400 Heart rate 67 /min DEMETRIO MORALES MD FACP [facility] 12-13-2021 05:03-0400 SaO2% (BldA) [Mass fraction] 99.3 % DEMETRIO MORALES MD FACP [address] [place] [address] 12-13-2021 04:33-0400 Mean blood pressure 113 mm[Hg] DEMETRIO MORALES MD FACP [address] 12-12-2021 16:22-0400 Body height 182.9 cm DEMETRIO MORALES MD FACP [address] [place] [address] 12-12-2021 16:22-0400 Body weight 182.1 kg DEMETRIO MORALES MD FACP [address] [place] [address] 12-12-2021 16:22-0400 Body weight 54.44 kg/m2 DEMETRIO MORALES MD FACP [address] [place] [address] 12-12-2021 13:24-0400 Body temperature 97.88 [degF] SERGIO KILPATRICKRUFF STABLE CLEANER-CERTIFIED CONTROL SYSTEMS TECHNICIAN [address] [place] [address] 12-12-2021 13:24-0400 Diastolic blood pressure 84 mm[Hg] SERGIO JARED STABLE CLEANER-CERTIFIED CONTROL SYSTEMS TECHNICIAN [address] [place] [address] 12-12-2021 13:24-0400 Heart rate 96 /min SERGIO KILPATRICKRUFF STABLE CLEANER-CERTIFIED CONTROL SYSTEMS TECHNICIAN [address] [place] [address] 12-12-2021 13:24-0400 Respiratory rate 22 /min SERGIO COLEMAN STABLE CLEANER-CERTIFIED CONTROL SYSTEMS TECHNICIAN [facility] 12-12-2021 13:24-0400 Systolic blood pressure 120 mm[Hg] SERGIO COLEMAN STABLE CLEANER-CERTIFIED CONTROL SYSTEMS TECHNICIAN [facility] 12-12-2021 12:31-0400 SaO2% (BldA) [Mass fraction] 94 % SERGIO COLEMAN STABLE CLEANER-CERTIFIED CONTROL SYSTEMS TECHNICIAN AO Blood Gas SS 12-12-2021 10:21-0400 Heart rate 95 /min SERGIO COLEMAN STABLE CLEANER-CERTIFIED CONTROL SYSTEMS TECHNICIAN [facility] 12-12-2021 10:21-0400 Respiratory rate 22 /min SERGIO COLEMAN STABLE CLEANER-CERTIFIED CONTROL SYSTEMS TECHNICIAN [facility] 12-12-2021 09:03-0400 Body temperature 97.88 [degF] SERGIO COLEMAN STABLE CLEANER-CERTIFIED CONTROL SYSTEMS TECHNICIAN [facility] 12-12-2021 09:03-0400 Diastolic blood pressure 84 mm[Hg] SERGIO COLEMAN STABLE CLEANER-CERTIFIED CONTROL SYSTEMS TECHNICIAN [facility] 12-12-2021 09:03-0400 Heart rate 94 /min SERGIO COLEMAN STABLE CLEANER-CERTIFIED CONTROL SYSTEMS TECHNICIAN [facility] 12-12-2021 09:03-0400 Respiratory rate 22 /min SERGIO COLEMAN STABLE CLEANER-CERTIFIED CONTROL SYSTEMS TECHNICIAN [facility] 12-12-2021 09:03-0400 Systolic blood pressure 127 mm[Hg] SERGIO COLEMAN STABLE CLEANER-CERTIFIED CONTROL SYSTEMS TECHNICIAN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 diagnosis of:Deep Vein Thrombosis (DVT) or Pulmonary Embolism (PE)CRITICAL VALUE CALLED TO ADRIANNE NICK (ER)02/20/25 115[address] Norris.RESULTS READ BACK BY SAME. Start: 02-20-2025 Radiologic exam chest 2 views Louann Bermeo [employer] Work Phone: Start: 02-20-2025 Estimated creatinine clearance Louann Bermeo [employer] Work Phone: Start: 02-20-2025 Reactive lymphocyte count Louann Bermeo [employer] Work Phone: Start: 02-12-2025 CT of face Louann ramon [employer] Work Phone: Start: 01-29-2025 MRI of brain with contrast Louann Bermeo [employer] Work Phone: Start: 11-13-2024 X-ray of knee, four or more views Louann Bermeo [employer] Work Phone: Start: 10-28-2024 Ecg routine ecg w/le ast 12 lds i&r only Elisa Jean MD Work Phone: Start: 10-28-2024 Us abdominal real ti me w/image limited Elisa Jean MD Work Phone: Start: 09-17-2024 Radiologic exam chest 2 views Elisa Jean MD Work Phone: Start: 09-06-2024 Estimated creatinine clearance Louann Bermeo [employer] Work Phone: Start: 09-05-2024 Gram stain microscopy Abby Bermeo [employer] Work Phone: Start: 09-05-2024 Respiratory microbial culture Louann Bermeo [employer] Work Phone: Start: 09-05-2024 Serum inorganic phos phate measurement Louann Bermeo [employer] Work Phone: Start: 09-04-2024 Nucleic acid assay Venkat Bermeo [employer] Work Phone: Start: 09-04-2024 Immature reticulocyt e fraction Louann Bermeo [employer] Work Phone: Start: 09-04-2024 Total iron binding c apacity measurement Louann Bermeo [employer] Work Phone: Start: 09-03-2024 Oxygen measurement Venkat Bermeo [employer] Work Phone: Start: 09-03-2024 Plain chest X-ray Eddie Bermeo [employer] Work Phone: Start: 09-03-2024 Blood culture Louann Bermeo [employer] Work Phone: Start: 09-03-2024 SARS-CoV-2, Influenz a & RSV (PCR) Louann Bermeo [employer] Work Phone: Start: 08-27-2024 Nitric oxide gas determination Radha Chapman STABLE CLEANER.[facility] Work Phone: Start: 08-27-2024 Plethysmography lung volumes w/wo airway resist Radha Chapman STABLE CLEANER.[facility] Work Phone: Start: 05-26-2024 X-ray of chest, PA a nd lateral views Louann Bermeo [employer] Work Phone: Start: 05-26-2024 SARS-CoV-2, Influenz a & RSV (PCR) Louann Bermeo [employer] Work Phone: Start: 09-19-2023 STREP A MOLECULAR (POC) Linette Villalpando PA-C Work Phone: Start: 03-31-2023 Urnls dip stick/tabl et rgnt auto w/o microscopy Kary Garnett [employer]ABLE [employer] Work Phone: Start: 06-03-2022 Echo tthrc r-t 2d w/ wom-mode compl spec&colr d [facility] Start: 06-03-2022 Dup-scan xtr veins c omplete bilateral study [facility] Start: 06-03-2022 Dup-scan xtr veins c omplete bilateral study Crispin Barry DO Work Phone: Start: 02-07-2022 TREATMENT CONDITIONS [facility]ON[facility]A [facility] [place] Start: 01-08-2022 Polysom 6/>yrs sleep w/cpap 4/> addl kayleigh attnd [facility] [place] Start: 01-05-2022 TREATMENT CONDITIONS AN CARSON [place] Start: 10-09-2021 Polysom 6/>yrs sleep 4/> addl kayleigh [facility] [place] Start: 09-06-2021 [facility] Start: 08-09-2021 [facility]ARE ORDER/[facility]CTION [facility] Start: 07-12-2021 CARE ORDER/INSTRUCTION [facility] Start: 11-05-2020 Radiologic exam ches t [...] Phone: Start: 02-24-2019 Assay of ferritin Madeline Allne Work Phone: Start: 02-24-2019 Assay of [id number] Eduardo Allen Work Phone: Start: 02-24-2019 BASIC [...] Work Phone: Start: 02-23-2019 NEBULIZER TX INTERMITTENT Earl Wellington Work Phone: Start: 01-18-2019 Assay of [...] Mcnulty Work Phone: Start: 01-16-2019 Dna antibody tribal/ double stranded Osman Mcnulty Work Phone: Start: [...] Ashli Diaz Work Phone: section SERGIO RYAN PIRETO STABLE CLEANER-CERTIFIED CONTROL SYSTEMS TECHNICIAN Tonsillectomy SERGIO JARED STABLE CLEANER-CERTIFIED CONTROL SYSTEMS TECHNICIAN Plan of Treatment Date Care Activity Detail Author Start: 06-30-2033 Urine microalbumin profile [facility] Start: 08-29-2025 Annual PCP Team Elevator Supervisor elier Disease Visit Annual PCP Team Chronic Disease Visit [facility] Start: 07-21-2025 End: 07-21-2025 Patient encounter procedure 07/21/2025 9:20 AM EDT Office Visit [facility] [address] [place] [address] Louann Bermeo APRN.CERTIFIED CONTROL SYSTEMS TECHNICIAN [address] [place] [address] annual Family Medicine [place] Comment on above: annual Start: 07-18-2025 Annual PCP Team Elevator Supervisor elier Disease Visit Annual PCP Team Chronic Disease Visit [facility] Start: 07-18-2025 Covid-19 Vaccine ( season) Covid-19 Vaccine () [facility] Comment on above: Postponed from 01/06 (Declined at this time) Start: 04-12-2025 Annual PCP Team Elevator Supervisor elier Disease Visit Annual PCP Team Chronic Disease Visit [facility] Start: 02-27-2025 Patient encounter procedure Registered Clinical -Laboratory Specimen Work Phone: Start: 02-27-2025 Gram stain microscopy Gram Stain W [facility] Start: 02-27-2025 Respiratory microbia l culture Nasopharyngeal Culture [facility] Start: 02-20-2025 [facility] Start: 02-20-2025 [facility] Start: 01-19-2025 Subsequent hospital visit by physician 01/19/2025 Hospital Encounter Admitting [address] [place] [address] Janes Frances MD [address] [place] [address] Morbid obesity (HCC) [E66.01] Admitting Comment on above: Morbid obesity (HCC) [E66.01] Start: 01-06-2025 Influenza vaccination [facility] Start: 12-17-2024 End: 12-17-2024 Follow-up encounter 12/17/2024 10:15 AM EDT Education General Surgery [address] [place], [place] [phone] [address] [place], [place] [id number] follow up 0 diet General Surgery Comment on above: follow up 0 diet Start: 11-29-2024 End: 11-29-2024 ambulatory 11/29/2024 3:30 PM EDT Results Only [facility] [address] [place] [address] [facility] Start: 11-28-2024 End: 02-27-2025 Basic metabolic 2000 panel - Serum or Plasma BASIC METABOLIC PANEL Lab Routine Medication management Expected: 11/28/2024, Expires: 02/27/2025 [facility] Work Phone: Comment on above: Expected: 11/28/2024 , Expires: 02/27/2025 Start: 11-26-2024 End: 11-26-2024 Follow-up encounter 11/26/2024 10:15 AM EDT Education General Surgery [address] [place], [place] [id number] Osman B[address] [place] [address] follow up 0 diet General Surgery Comment on above: follow up 0 diet Start: 11-19-2024 End: 11-19-2024 Patient encounter procedure 11/19/2024 9:00 PM EDT Office Visit Neurology [address] [place] [address] BOLA (obstructive sleep apnea) [G47.33] Neurology Comment on above: BOLA (obstructive sle ep apnea) [G47.33] Start: 11-13-2024 [facility] Start: 11-04-2024 Influenza vaccination Influenza Vacc ine (#1) [facility] Comment on above: Postponed from 01/06 (Declined at this time) Start: 10-23-2024 End: 10-23-2024 ambulatory [facility] Start: 10-21-2024 End: 10-21-2024 ambulatory 10/21/2024 3:00 PM EDT Results Only [facility] [address] [place] [address] [facility] Start: 10-21-2024 End: 10-21-2024 Admission to same day surgery center 10/21/2024 10:15 AM EDT [facility] General Surgery [address] [place] [address] [place], [place] [phone] Red/Corcelles/0 Diet/[facility] General Surgery Comment on above: Red/Corcelles/0 Diet /[facility] Start: 10-19-2024 End: 01-18-2025 Ferritin [Mass/volume] in Serum or Plasma FERRITIN Lab Routine Iron deficiency anemia, unspecified iron deficiency anemia type Expected: 10/19/2024, Expires: 01/18/2025 [facility] Comment on above: Expected: 10/19/2024 , Expires: 01/18/2025 Start: 10-19-2024 End: 01-18-2025 Iron and Iron binding capacity panel - Serum or Plasma IRON AND TIBC Lab Routine Iron deficiency anemia, unspecified iron deficiency anemia type Expected: 10/19/2024, Expires: 01/18/2025 [facility] Work Phone: Comment on above: Expected: 10/19/2024 , Expires: 01/18/2025 Start: 10-03-2024 End: 10-03-2024 Admission to same day surgery center 10/03/2024 9:00 AM EDT [facility] [address] [place] [address] [place] [address] Red/Corcelles/0 Diet/[facility] General Surgery Comment on above: Red/Corcelles/0 Diet /[facility] Start: 09-25-2024 End: 09-25-2024 Patient encounter procedure 09/25/2024 10:20 AM EDT Office Visit General Surgery [address] [place] [address] Janes Frances MD [address] [place] [address] Red/Corcelles/0 Diet/[facility] General Surgery Comment on above: Red/Corcelles/0 Diet /[facility] Start: 09-17-2024 End: 09-17-2024 Patient encounter procedure 09/17/2024 8:30 AM EDT Appointment Radiology [address] [facility] [place] [address] Radiology Start: 09-17-2024 End: 09-17-2024 ambulatory 09/17/2024 8:15 AM EDT Results Only [facility] [address] [place] [address] [facility] Start: 09-13-2024 End: 09-13-2024 Admission to same day surgery center 09/13/2024 8:00 AM EDT [facility] Surgery [address] [place] [address] Irina Dickey, STABLE CLEANER.CERTIFIED CONTROL SYSTEMS TECHNICIAN [address] [place] [address] Lower extremity edema [R60.0] General Surgery Comment on above: Lower extremity keke a [R60.0] Start: 09-12-2024 End: 09-12-2025 25-hydroxyvitamin D3 [Mass/volume] in Serum or Plasma VITAMIN D 25 HYDROXY Lab Routine BOLA (obstructive sleep apnea) Preoperative testing BMI 60.0-69.9, adult ([facility]) Expected: 09/12/2024, Expires: 09/12/2025 [facility] Comment on above: Expected: 09/12/2024 , Expires: 09/12/2025 Start: 09-12-2024 End: 09-12-2025 Cobalamin (Vitamin B12) [Mass/volume] in Serum or Plasma VITAMIN B12 Lab Routine BOLA (obstructive sleep apnea) Preoperative testing BMI 60.0-69.9, adult ([facility]) Expected: 09/12/2024, Expires: 09/12/2025 [facility] Comment on above: Expected: 09/12/2024 , Expires: 09/12/2025 Start: 09-12-2024 End: 09-12-2025 Folate [Mass/volume] in Serum or Plasma FOLATE, SERUM Lab Routine BOLA (obstructive sleep apnea) Preoperative testing BMI 60.0-69.9, adult ([facility]) Expected: 09/12/2024, Expires: 09/12/2025 [facility] Comment on above: Expected: 09/12/2024 , Expires: 09/12/2025 Start: 09-12-2024 End: 09-12-2025 Parathyrin.intact [Mass/volume] in Serum or Plasma PTH INTACT Lab Routine BOLA (obstructive sleep apnea) Preoperative testing BMI 60.0-69.9, adult ([facility]) Expected: 09/12/2024, Expires: 09/12/2025 [facility] Comment on above: Expected: 09/12/2024 , Expires: 09/12/2025 Start: 09-12-2024 End: 09-12-2025 Thyrotropin [Units/volume] in Serum or Plasma THYROID STIMULATING HORMONE Lab Routine BOLA (obstructive sleep apnea) Preoperative testing BMI 60.0-69.9, adult (HCC) Expected: 09/12/2024, Expires: 09/12/2025 [facility] Comment on above: Expected: 09/12/2024 , Expires: 09/12/2025 Start: 09-12-2024 End: 12-12-2024 VITAMIN B1 (THIAMINE), WHOLE BLOOD VITAMIN B1 (THIAMINE), WHOLE BLOOD Lab Routine BOLA (obstructive sleep apnea) Preoperative testing BMI 60.0-69.9, adult (HCC) Expected: 09/12/2024, Expires: 12/12/2024 [facility] Comment on above: Expected: 09/12/2024 , Expires: 12/12/2024 Start: 09-09-2024 End: 09-09-2024 ambulatory 09/09/2024 1:00 PM EDT OT/PT/Speech Visit [facility] [address] [place] [address] Lisy Dao, HERMANN Lower extremity edema [R60.0] [facility] Comment on above: Lower extremity keke a [R60.0] Start: 09-06-2024 Patient discharge [facility] Start: 09-05-2024 Respiratory Culture Respiratory Cult ure [facility] Start: 09-04-2024 Care planning and problem solving actions [facility] Start: 09-04-2024 Elevation of affecte d extremity [facility] Start: 09-04-2024 Notification of physician [facility] Start: 09-04-2024 Patient education [facility] Start: 09-04-2024 Oxygen therapy [facility] Start: 09-03-2024 Following clinical pathway protocol [facility] Start: 09-03-2024 Assessment of risk o f venous thromboembolism [facility] Start: 09-03-2024 Continuous pulse oximetry [facility] Start: 09-03-2024 Inhalation therapy procedure [facility] Start: 09-03-2024 Insertion of cathete r into peripheral vein [facility] Start: 09-03-2024 Measuring intake and output [facility] Start: 09-03-2024 Providing care accor ding to standard [facility] Start: 09-03-2024 Vital signs measurements [facility] Start: 09-03-2024 [facility] Start: 09-03-2024 Admission procedure [facility] Start: 09-03-2024 [facility] Start: 09-03-2024 Blood culture Blood Culture [facility] Start: 09-03-2024 Dual pressure spontaneous ventilation support [facility] Start: 08-29-2024 End: 08-29-2024 ambulatory 08/29/2024 8:40 AM EDT [facility] [address] [place] [address] Louann Bermeo APRN.CERTIFIED CONTROL SYSTEMS TECHNICIAN [address] [place], [place] [phone] Weight [facility] Comment on above: Weight Start: 08-14-2024 End: 08-14-2024 ambulatory 08/14/2024 9:45 AM EDT OT/PT/Speech Visit [facility] [address] [place] [address] Lisy Dao, PT Dx: Lower extremity edema [R60.0] [facility] Comment on above: Dx: Lower extremity edema [R60.0] Start: 07-18-2024 End: 10-17-2024 CBC W Auto Differential panel - Blood [facility] Comment on above: Expected: 07/18/2024 , Expires: 10/17/2024 Start: 07-18-2024 End: 10-17-2024 Comprehensive metabolic 2000 panel - Serum or Plasma [facility] Work Phone: Comment on above: Expected: 07/18/2024 , Expires: 10/17/2024 Start: 07-18-2024 End: 10-17-2024 Ferritin [Mass/volume] in Serum or Plasma [facility] Comment on above: Expected: 07/18/2024 , Expires: 10/17/2024 Start: 07-18-2024 End: 10-17-2024 Hemoglobin A1c in Blood [facility] Comment on above: Expected: 07/18/2024 , Expires: 10/17/2024 Start: 07-18-2024 End: 10-17-2024 Iron and Iron binding capacity panel - Serum or Plasma [facility] Comment on above: Expected: 07/18/2024 , Expires: 10/17/2024 Start: 07-18-2024 End: 10-17-2024 LIPID PANEL, NONFASTING [facility] Comment on above: Expected: 07/18/2024 , Expires: 10/17/2024 Start: 07-11-2024 End: 07-11-2024 Patient encounter procedure 07/11/2024 2:00 PM EST Office Visit [facility] [address] [place], [place] [phone] Louann Bermeo APRN.CERTIFIED CONTROL SYSTEMS TECHNICIAN [address] [place], [place] [phone] 3 month follow up [facility] Comment on above: 3 month follow up Start: 06-30-2024 Annual PCP Team Elevator Supervisor elier Disease Visit Annual PCP Team Chronic Disease Visit [facility] Start: 06-30-2024 Covid-19 Vaccine (#1) Covid-19 Vacci ne (#1) [facility] Comment on above: Postponed from 09/27 (Declined at this time) Start: 06-30-2024 Covid-19 Vaccine () Covid-19 Vaccine () [facility] Comment on above: Postponed from 01/06 (Declined at this time) Start: 05-26-2024 End: 05-26-2024 [facility] Start: 05-08-2024 Medicare Advantage Annual Wellness Visit Medicare Advantage Annual Wellness Visit [facility] Start: 04-12-2024 End: 07-12-2024 Basic metabolic 2000 panel - Serum or Plasma BASIC METABOLIC PANEL Lab Routine 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 Expected: 04/12/2024, Expires: 07/12/2024 [facility] Work Phone: Comment on above: Expected: 04/12/2024 , Expires: 07/12/2024 Start: 01-07-2024 Covid-19 Vaccine () Covid-19 Vaccine ( season) [facility] Start: 01-07-2024 Influenza vaccination [facility] Start: 11-05-2023 Influenza vaccination Influenza Vacc ine (#1) [facility] Comment on above: Postponed from 01/06 (Declined at this time) Start: 08-30-2023 [facility] Start: 07-28-2023 End: 10-27-2023 Eosinophils [#/volume] in Blood EOSINOPHIL ABS COUNT Lab Routine Severe persistent asthma without complication Expected: 07/28/2023, Expires: 10/27/2023 [facility] Work Phone: Comment on above: Expected: 07/28/2023 , Expires: 10/27/2023 Start: 07-28-2023 End: 10-27-2023 IgA [Mass/volume] in Serum or Plasma IGA BLD Lab Routine Immune deficiency disorder (HCC) Expected: 07/28/2023, Expires: 10/27/2023 [facility] Work Phone: Comment on above: Expected: 07/28/2023 , Expires: 10/27/2023 Start: 07-28-2023 End: 10-27-2023 IgE [Units/volume] in Serum or Plasma IGE BLD Lab Routine Severe persistent asthma without complication Expected: 07/28/2023, Expires: 10/27/2023 [facility] Work Phone: Comment on above: Expected: 07/28/2023 , Expires: 10/27/2023 Start: 07-28-2023 End: 10-27-2023 IgG [Mass/volume] in Serum or Plasma IGG Lab Routine Severe persistent asthma without complication Expected: 07/28/2023, Expires: 10/27/2023 [facility] Work Phone: Comment on above: Expected: 07/28/2023 , Expires: 10/27/2023 Start: 07-28-2023 End: 10-27-2023 IgM [Mass/volume] in Serum or Plasma IGM Lab Routine Severe persistent asthma without complication Expected: 07/28/2023, Expires: 10/27/2023 [facility] Work Phone: Comment on above: Expected: 07/28/2023 , Expires: 10/27/2023 Start: 07-28-2023 End: 10-27-2023 Natriuretic peptide.B prohormone N-Terminal [Mass/volume] in Serum or Plasma NT PRO BNP Lab Routine Chronic hypoxemic respiratory failure (HCC) Expected: 07/28/2023, Expires: 10/27/2023 [facility] Work Phone: Comment on above: Expected: 07/28/2023 , Expires: 10/27/2023 Start: 06-30-2023 End: 09-29-2023 Comprehensive metabolic 2000 panel - Serum or Plasma [facility] Work Phone: Comment on above: Expected: 06/30/2023 , Expires: 09/29/2023 Start: 06-30-2023 End: 09-29-2023 Hemoglobin A1c in Blood [facility] Work Phone: Comment on above: Expected: 06/30/2023 , Expires: 09/29/2023 Start: 06-30-2023 End: 09-29-2023 LIPID PANEL, NONFASTING [facility] Work Phone: Comment on above: Expected: 06/30/2023 , Expires: 09/29/2023 Start: 03-31-2023 End: 06-30-2023 Bacteria identified in Urine by Culture URINE CULTURE Microbiology Routine Dysuria Expected: 03/31/2023, Expires: 06/30/2023 [facility] Work Phone: Comment on above: Expected: 03/31/2023 , Expires: 06/30/2023 Start: 01-06-2023 Influenza vaccination Influenza Vacc ine (#1) [facility] Start: 05-31-2022 Depression Monitoring Depression Mon lety [facility] Start: 2022 HPV Testing HPV Testing [facility] Start: 2022 Screening for malign ant neoplasm of cervix [facility] Start: 03-08-2022 Hemoglobin A1c measurement A1C test (Diabetic or Prediabetic) [facility] Start: 03-07-2022 End: 03-07-2022 Patient encounter procedure 03/07/2022 Appointment Infusion [facility] Start: 02-11-2022 End: 02-11-2022 Patient encounter procedure 02/11/2022 Appointment Sleep [facility] Start: 01-06-2022 Influenza vaccination [facility] Start: 12-06-2021 Influenza vaccination Flu vaccine (# 1) [facility] Start: 10-23-2021 End: 10-23-2021 Patient encounter procedure 10/23/2021 Appointment Sleep Center [facility] Start: 10-05-2021 End: 10-05-2021 Patient encounter procedure 10/05/2021 Appointment Infusion [facility] Start: 09-18-2021 Hemoglobin A1c measurement A1C test (Diabetic or Prediabetic) [facility] Work Phone: Start: 09-06-2021 End: 09-06-2021 Patient encounter procedure 09/06/2021 Appointment Infusion [facility] Start: 08-09-2021 End: 08-09-2021 Patient encounter procedure 08/09/2021 Appointment Infusion [facility] Start: 07-13-2021 End: 07-13-2021 Patient encounter procedure 07/13/2021 Office Visit Family Medicine Cata Berumen MD [address] [address] [facility] Start: 04-05-2021 End: 04-05-2021 Patient encounter procedure 04/05/2021 Appointment Infusion [facility] Start: 01-20-2021 Subsequent hospital visit by physician 01/20/2021 Hospital Encounter Infusion Therapy [facility] Start: 01-06-2021 Influenza vaccination [facility] Start: 12-18-2020 End: 12-18-2020 Patient encounter procedure 12/18/2020 Office Visit Infectious Diseases Marcela Ortiz, STABLE CLEANER - [employer] [address] [address] [phone] [facility] Start: 12-01-2020 End: 12-01-2020 Patient encounter procedure 12/01/2020 Appointment Infusion [facility] Start: 09-22-2020 Annual Wellness Visi t (AWV) Annual Wellness Visit (AWV) [facility] Work Phone: Start: 01-07-2020 Influenza vaccination Flu vaccine (# 1) [place] Start: 10-27-2019 Annual PCP Team Elevator Supervisor elier Disease Visit Annual PCP Team Chronic Disease Visit [facility] Start: 06-17-2019 End: 06-17-2019 Office Visit 06/17/2019 Office Visit Otolaryngology Fortino Mccall, [address] [facility] [place] [address] [phone] [facility] Start: 04-24-2019 End: 04-24-2019 Office Visit 04/24/2019 Office Visit Infectious Diseases Mona Diaz MD [address] [facility] [address] [place], [place] [id number] [facility] Start: 2019 HPV Vaccine (1 - 3-d ose SCDM series) HPV Vaccine (1 - 3-dose SCDM series) [facility] Start: 03-18-2019 End: 03-18-2019 Office Visit 03/18/2019 Office Visit Sandee Sandra MD [address] [address] [facility] Start: 01-25-2019 End: 01-25-2019 Office Visit 01/25/2019 Office Visit Sandee Sandra MD [address] [address] [facility] Start: 01-06-2019 Influenza vaccination Flu vaccine (# 1) [place] Start: 2013 Cervical cancer screen Cervical canc er screen [place] Start: 2013 Pap Testing Pap Testing [facility] Start: 2013 Screening for malign ant neoplasm of cervix [facility] Start: 2011 DTaP/Tdap/Td vaccine (1 - Tdap) DTaP/Tdap/Td vaccine (1 - Tdap) [facility] Start: 2011 Shingles vaccine (1 of 2) Shingles vaccine (1 of 2) [facility] Start: 2011 Urine microalbumin profile DTaP,Tdap,Td Vaccine (1 - Tdap) [facility] Start: 2010 Hepatitis C screening [facility] Start: 2010 Hepatitis C Screening Hepatitis C Sc carol [facility] Start: 2010 HIV Screening HIV Screening [facility] Start: 2010 HIV screening HIV Screening [facility] Start: 2007 HIV screen HIV screen [place], [place] Start: 2007 HPV vaccine (1 - Fem javed 3-dose series) HPV vaccine (1 - Female 3-dose series) [place] Start: 2005 Varicella Vaccine (1 of 2 - 13+ 2-dose series) Varicella Vaccine (1 of 2 - 13+ 2-dose series) [place] Start: 2004 COVID-19 Vaccine (1) COVID-19 Vaccin e (1) [facility] Start: 2003 DTaP/Tdap/Td vaccine (1 - Tdap) DTaP/Tdap/Td vaccine (1 - Tdap) [place] Start: 2003 HPV vaccine (1 - Fem javed 2-dose series) HPV vaccine (1 - Female 2-dose series) [place] Start: 1998 Pneumococcal 0-64 ye ars Vaccine (1 - PCV) Pneumococcal 0-64 years Vaccine (1 - PCV) [facility] Start: 1998 Pneumococcal 0-64 ye ars Vaccine (1 of 1 - PPSV23) Pneumococcal 0-64 years Vaccine (1 of 1 - PPSV23) [place] Start: 1998 Pneumococcal 0-64 ye ars Vaccine (1 of 3 - PCV13) Pneumococcal 0-64 years Vaccine (1 of 3 - PCV13) [place] Start: 1998 Pneumococcal 0-64 ye ars Vaccine (1 of 4 - PCV13) Pneumococcal 0-64 years Vaccine (1 of 4 - PCV13) [facility] Start: 1998 Pneumococcal vaccination Pneum ococcal Vaccine (1 - PCV) [facility] Start: 1997 COVID-19 Vaccine (#1) COVID-19 Vacci ne (#1) [facility] Start: 1993 Varicella Vaccine (1 of 2 - 2-dose childhood series) Varicella Vaccine (1 of 2 - 2-dose childhood series) [facility] Start: 1992 COVID-19 Vaccine (#1) COVID-19 Vacci ne (#1) [facility] Start: 1992 Hepatitis B Vaccine (1 of 3 - 3-dose series) Hepatitis B Vaccine (1 of 3 - 3-dose series) [facility] Start: 1992 Hepatitis C screening Hepatitis C sc reen [facility] End: 05-01-2019 Arterial Blood Gas, Respiratory Only Arterial Blood Gas, Respiratory Only Lab STAT One Time for 1 Occurrences starting 05/01/2019 until 05/01/2019 [facility] Work Phone: Comment on above: One Time for 1 Occur rences starting 05/01/2019 until 05/01/2019 BACTERIAL VAGINOSIS NAAT BACTERI AL VAGINOSIS NAAT Lab Routine Acute vaginitis Ordered: 03/31/2023 [facility] Work Phone: Comment on above: Ordered: 03/31/2023 Basic Metabolic Pane l w/ Reflex to MG [facility]- [place], [place] Comment on above: Daily until disconti nued starting 02/24/2019, 4 completed Tomorrow AM until di scontinued starting 05/02/2019, 6 completed BIPAP BIPAP Respirator y Care STAT Every 4hr until discontinued starting 05/01/2019 [facility] Work Phone: Comment on above: Every 4hr until disc ontinued starting 05/01/2019 End: 05-01-2019 C-reactive protein C-reactive protein Lab Routine One Time for 1 Occurrences starting 05/01/2019 until 05/01/2019 [facility] Comment on above: One Time for 1 Occur rences starting 05/01/2019 until 05/01/2019 MARIA D/TRICHOMONAS NAAT MARIA D /TRICHOMONAS NAAT Lab Routine Acute vaginitis Ordered: 03/31/2023 [employer] Work Phone: Comment on above: Ordered: 03/31/2023 [facility] Comment on above: Daily until disconti nued starting 02/24/2019, 4 completed Tomorrow AM until di scontinued starting 05/02/2019, 6 completed Chest physiotherapy Chest physio therapy Respiratory Care Routine Every 8hr until discontinued starting 02/25/2019 [facility] Comment on above: Every 8hr until disc ontinued starting 02/25/2019 Chlamydia trachomatis+Neisseria gonorrhoeae DNA [Presence] in Unspecified specimen by GUNJAN with probe detection GONORRHEA/CHLAMYDIA NAAT Lab Routine Acute vaginitis Ordered: 03/31/2023 [facility] Work Phone: Comment on above: Ordered: 03/31/2023 Culture blood #1 [facility] Culture blood #2 [facility], [place] End: 11-05-2020 Culture, Blood 1 Culture, Blood 1 Microbiology STAT One Time for 1 Occurrences starting 11/05/2020 until 11/05/2020 [facility] Phone: Comment on above: One Time for 1 Occur rences starting 11/05/2020 until 11/05/2020 Culture, Blood 1 Culture, Blood 1 Microbiology STAT 11/05/2020 12:47 PM EDT [facility] Phone: End: 11-05-2020 Culture, Blood 2 Culture, Blood 2 Microbiology STAT One Time for 1 Occurrences starting 11/05/2020 until 11/05/2020 [facility] Phone: Comment on above: One Time for 1 Occur rences starting 11/05/2020 until 11/05/2020 End: 09-12-2025 ECG COMPLETE ECG COMPLETE ECG Routine BOLA (obstructive sleep apnea) Preoperative testing BMI 60.0-69.9, adult (HCC) 1 Occurrences starting 09/12/2024 until 09/12/2025 [facility] Comment on above: 1 Occurrences starti ng 09/12/2024 until 09/12/2025 ECG COMPLETE ECG COMPLETE ECG Routine BOLA (obstructive sleep apnea) Preoperative testing BMI 60.0-69.9, adult ([facility]) 10/28/2024 3:17 PM EDT [facility] Work Phone: EKG 12 Lead EKG 12 Lead ECG STAT 04/01/2019 12:47 PM EST [facility] [place] Comment on above: Every 20min As Neede d until discontinued starting 01/15/2019 0600, 1000, 1400, 18 00, 2200 until discontinued starting 01/15/2019 Every 4hr while awak e until discontinued starting 02/23/2019 0600, 1000, 1400, 18 00, 2200 until discontinued starting 05/01/2019 End: 02-23-2019 HHN Treatment HHN Treatment Respiratory Care STAT One Time for 1 Occurrences starting 02/23/2019 until 02/23/2019 [facility] Comment on above: One Time for 1 Occur rences starting 02/23/2019 until 02/23/2019 End: 01-18-2019 HIV Screen HIV Screen Lab Routine Tomorrow AM for 1 Occurrences starting 01/18/2019 until 01/18/2019 [facility] Comment on above: Tomorrow AM for 1 Oc currences starting 01/18/2019 until 01/18/2019 HIV Screen HIV Screen Lab R outine 01/18/2019 4:27 AM EDT [facility] [place] End: 12-13-2019 IgA [Mass/Vol] IgA Lab Routine Once for 1 Occurrences starting 12/13/2019 until 12/13/2019 [facility] [place] Comment on above: Once for 1 Occurrenc es starting 12/13/2019 until 12/13/2019 IgA [Mass/Vol] IgA Lab Routine 12/13/2019 11:00 AM EDT [facility] [place] End: 09-18-2020 IgE [Units/volume] in Serum or Plasma IgE Lab Routine Once for 1 Occurrences starting 09/18/2020 until 09/18/2020 [facility] Work Phone: Comment on above: Once for 1 Occurrenc es starting 09/18/2020 until 09/18/2020 End: 01-16-2019 IgE Qn IgE Lab Routine One Time for 1 Occurrences starting 01/16/2019 until 01/16/2019 [facility], [place] Comment on above: One Time for 1 Occur rences starting 01/16/2019 until 01/16/2019 IgE Qn [facility] [place] End: 12-13-2019 IgE Qn IgE Lab Routine Once for 1 Occurrences starting 12/13/2019 until 12/13/2019 [facility], [place] Comment on above: Once for 1 Occurrenc es starting 12/13/2019 until 12/13/2019 End: 01-16-2019 IGG 1, 2, 3, AND 4 IGG 1, 2, 3, AND 4 Lab Routine One Time for 1 Occurrences starting 01/16/2019 until 01/16/2019 [place] Comment on above: One Time for 1 Occur rences starting 01/16/2019 until 01/16/2019 IGG 1, 2, 3, AND 4 [place], [place] End: 12-13-2019 IgG 1, 2, 3, and 4 IgG 1, 2, 3, and 4 Lab Routine Once for 1 Occurrences starting 12/13/2019 until 12/13/2019 [place] Comment on above: Once for 1 Occurrenc es starting 12/13/2019 until 12/13/2019 End: 09-18-2020 IgG 1, 2, 3, and 4 IgG 1, 2, 3, and 4 Lab Routine Once for 1 Occurrences starting 09/18/2020 until 09/18/2020 [facility] Comment on above: Once for 1 Occurrenc es starting 09/18/2020 until 09/18/2020 End: 12-13-2019 IgG [Mass/Vol] IgG Lab Routine Once for 1 Occurrences starting 12/13/2019 until 12/13/2019 [place] Comment on above: Once for 1 Occurrenc es starting 12/13/2019 until 12/13/2019 IgG [Mass/Vol] IgG Lab Routine 12/13/2019 11:00 AM EDT [place] End: 09-18-2020 IgG, IgA, IgM IgG, IgA, IgM Lab Routine Once for 1 Occurrences starting 09/18/2020 until 09/18/2020 [facility] Phone: Comment on above: Once for 1 Occurrenc es starting 09/18/2020 until 09/18/2020 End: 12-13-2019 IgM [Mass/Vol] IgM Lab Routine Once for 1 Occurrences starting 12/13/2019 until 12/13/2019 [facility] [place] Comment on above: Once for 1 Occurrenc es starting 12/13/2019 until 12/13/2019 IgM [Mass/Vol] IgM Lab Routine 12/13/2019 11:00 AM EDT [facility] [place] Initiate Oxygen Ther apy Protocol [place] Comment on above: Daily until disconti nued starting 01/15/2019 Daily until disconti nued starting 02/23/2019 Daily until disconti nued starting 05/01/2019 End: 02-25-2019 Iron and TIBC Iron and TIBC Lab Add-On Tomorrow AM for 1 Occurrences starting 02/25/2019 until 02/25/2019 [facility] [place] Comment on above: Tomorrow AM for 1 Oc currences starting 02/25/2019 until 02/25/2019 MDI Treatment [facility] [place] Comment on above: 0800,1999 (respirato ry use only) until discontinued starting 01/15/2019 0800,2000 (respirato ry use only) until discontinued starting 02/23/2019 Microorganism identi fied in Unspecified specimen by Culture [facility]al [facility] [place] Comment on above: Daily until disconti nued starting 01/15/2019 Daily until disconti nued starting 02/24/2019 Daily until disconti nued starting 05/04/2019 End: 08-26-2024 NITRIC OXIDE, EXHALED NITRIC OXIDE, EXHALED PFT Routine Severe persistent asthma without complication 1 Occurrences starting 07/28/2023 until 08/26/2024 [facility] Work Phone: Comment on above: 1 Occurrences starti ng 07/28/2023 until 08/26/2024 End: 09-12-2025 PAP TITRATION PSG (CPAP, BIPAP, ASV) PAP TITRATION PSG (CPAP, BIPAP, ASV) Procedures Routine BOLA (obstructive sleep apnea) Preoperative testing BMI 60.0-69.9, adult (HCC) 1 Occurrences starting 09/12/2024 until 09/12/2025 [facility] Comment on above: 1 Occurrences starti ng 09/12/2024 until 09/12/2025 Patient Education [facility] Work Phone: Patient referral [facility] Work Phone: End: 05-01-2019 POC Urine POC Urine Point of Care Testing STAT One Time for 1 Occurrences starting 05/01/2019 until 05/01/2019 [employer] Work Phone: Comment on above: One Time for 1 Occur rences starting 05/01/2019 until 05/01/2019 End: 05-01-2019 Procalcitonin Procalcitonin Lab STAT One Time for 1 Occurrences starting 05/01/2019 until 05/01/2019 [facility] Phone: Comment on above: One Time for 1 Occur rences starting 05/01/2019 until 05/01/2019 End: 01-15-2019 Pulse Oximetry Spot Check Pulse Oximetry Spot Check Respiratory Care Routine One Time for 1 Occurrences starting 01/15/2019 until 01/15/2019 [facility] Comment on above: One Time for 1 [...] Occurrences starting 01/08/2022 until 01/08/2022 [facility] Work Phone: Comment on above: One Time for 1 Occur rences starting 01/08/2022 until 01/08/2022 End: 08-26-2024 SPIROMETRY - BASELINE AND POST DILATOR SPIROMETRY - BASELINE AND POST DILATOR PFT Routine Severe persistent asthma without complication 1 Occurrences starting 07/28/2023 until 08/26/2024 [facility] Work Phone: Comment on above: 1 Occurrences starti ng 07/28/2023 until 08/26/2024 End: 01-18-2019 T + B Lymphocyte Differential T + B Lymphocyte Differential Lab Routine Tomorrow AM for 1 Occurrences starting 01/18/2019 until 01/18/2019 [facility] Comment on above: Tomorrow AM for 1 Oc currences starting 01/18/2019 until 01/18/2019 T + B Lymphocyte Differential T + B Lymphocyte Differential Lab Routine 01/18/2019 4:27 AM EDT [facility] Unlisted laparoscopi c procedure stomach LAPAROSCOPY SURGICAL GASTRIC RESTRICTIVE PROCEDURE BILIOPANCREATIC DIVERSION WITH DUODENAL SWITCH Morbid obesity (HCC) [facility] End: 10-13-2025 US Abdomen RUQ US ABD RIGHT UPPER QUADRANT Radiology Routine BOLA (obstructive sleep apnea) Preoperative testing BMI 60.0-69.9, adult (HCC) 1 Occurrences starting 09/12/2024 until 10/13/2025 [facility] Work Phone: Comment on above: 1 Occurrences starti ng 09/12/2024 until 10/13/2025 End: 10-13-2025 XR Chest PA and Lateral XR CHEST 2V FRONTAL/LAT Radiology Routine BOLA (obstructive sleep apnea) Preoperative testing BMI 60.0-69.9, adult (HCC) 1 Occurrences starting 09/12/2024 until 10/13/2025 [facility] Comment on above: 1 Occurrences starti ng 09/12/2024 until 10/13/2025 [facility] Immunizations Immunization Date Immunization Notes Care Provider Fa [facility] 06-30-2023 pneumococcal conjuga te (PCV20) vaccine, 20 valent (PREVNAR 20) Louann Bermeo APRN.CNP Work Phone: [facility] 06-30-2023 tetanus toxoid, redu boogie diphtheria toxoid, and acellular pertussis vaccine, adsorbed Louann Bermeo APRN.CNP Work Phone: [facility] 06-30-2023 pneumococcal Conjuga te, unspecified formulation Louann Bermeo APRN.CNP Work Phone: [facility] Work Phone: 02-07-2019 influenza virus vaccine, unspecified formulation Kary Garnett STABLE CLEANER.CERTIFIED CONTROL SYSTEMS TECHNICIAN Work Phone: [facility] 03-08-2017 influenza nasal, unspecified formulation Louann Lomeligulshan STABLE CLEANER.CERTIFIED CONTROL SYSTEMS TECHNICIAN Work Phone: [facility] 03-08-2017 influenza virus vaccine, unspecified formulation [place] 03-08-2017 influenza, seasonal, injectable Kary Tamir STABLE CLEANER.CERTIFIED CONTROL SYSTEMS TECHNICIAN Work Phone: [facility] Work Phone: Payers Date Payer Category Payer Self-pay [id number] 2023 Medicare UHC MEDICARE MYC ARE UHC MEDICARE [id number] 2023-Present [phone] [address] [place] [address] Medicare [id number] 2023 Medicare (Managed Care) [facility] MEDICARE [id number] 2023 Medicaid [id number]. [id number] 2021 Private Health Insurance [id number] [id number]. [id number] 2020 Medicaid [id number] [id number]. [id number] 2018 Private Health Insurance [facility] xxxxxxxxx 2018-Present [phone] [address] [place] [address] xxxxxxxxx [id number]. [id number] 2018 Private Health Insurance [facility] [id number] 2018-Present [phone] [address] [place] [address] [id number]. [id number] 2014 Medicare [id number] [id number]. [id number] 1992 Unknown [id number] 2.840.1.523247.3.579.2. 204 1992 Unknown [id number] 2.840.1.953485.3.579.2. 204 1992 Unknown [id number] 2.840.1.017077.3.579.2. 204 1992 Unknown [id number] 2.840.1.720546.3.579.2. 204 1992 Unknown [id number] 2.840.1.098849.3.579.2. 204 1992 Unknown [id number] 2.16840.1.983518.3.579.2. 204 1992 Unknown [id number] 2.16840.1.890548.3.579.2. 204 1992 Unknown [id number] 2.16840.1.266652.3.579.2. 204 1992 Unknown [id number] 2.840.1.759592.3.579.2. 204 1992 Unknown [id number] 2.16840.1.680370.3.579.2. 204 1992 Unknown [id number] 2.16840.1.311508.3.579.2. 204 1992 Unknown [id number] 2.16.840.1.870327.3.579.2. 204 1992 Unknown [id number] 2.840.1.422767.3.579.2. 627 1992 Unknown [id number] 2.840.1.204404.3.579.2. 627 Unknown [facility] [id number] Unknown [id number] 2.840.1.753074.3.579.2. 462 Unknown [id number] 2.840.1.862928.3.579.2. 462 Unknown [id number] 2.840.1.880121.3.579.2. 462 Unknown [id number] 2.840.1.456172.3.579.2. 462 Unknown [id number] 2.840.1.002173.3.579.2. 462 Unknown [id number] 2.840.1.816718.3.579.2. 462 Unknown [id number] 2.840.1.271493.3.579.2. 462 Unknown [id number] 2.840.1.592383.3.579.2. 462 Unknown [id number] 2.16840.1.305603.3.579.2. 462 Unknown [id number] 2.16840.1.198556.3.579.2. 462 Unknown [id number] 2.16840.1.357294.3.579.2. 462 Unknown [id number] 2.840.1.555296.3.579.2. 462 Unknown [id number] 2.16.840.1.201932.3.579.2. 462 Unknown [id number] 2.16.840.1.973099.3.579.2. 462 Unknown [id number] 2.16.840.1.163400.3.579.2. 462 Unknown [id number] 2.16.840.1.507882.3.579.2. 462 Unknown [id number] 2.16.840.1.212829.3.579.2. 462 Social History Date Type Detail Facility Start: 01-15-2019 End: 02-20-2025 Tobacco smoking status NHIS Former smoker [facility] Start: 2008 End: 01-06-2018 History of tobacco use Current smoker [place] Start: 01-15-2019 End: 11-10-2023 Alcohol intake No [facility] Work Phone: Start: 01-15-2019 Alcohol Comment occasional [place] Start: 1990 Sex Assigned At Not on file M [place], [place] Start: 03-19-2019 End: 05-19-2022 Alcohol intake Current non-drinker of alcohol (finding) [place] Start: 12-13-2019 End: 04-28-2024 Tobacco use and exposure Never used [place] Start: 07-30-2021 End: 02-07-2022 Exposure to SARS-CoV-2 (event) Not sure [facility] Start: 1990 Sex Assigned At Female W [facility] Start: 2008 End: 01-06-2018 History of tobacco use Cigarette Smoker [facility] Phone: Start: 12-12-2021 Tobacco smoking status Never smoked tobacco (finding) [facility] Sex Assigned At Sex [facility] Start: 01-05-2022 History SDOH Financial 5 [facility] Phone: Start: 01-05-2022 History SDOH Food Worry 1 [facility] [employer] [place] Work Phone: History of tobacco use Cigar Smoker [facility] Start: 03-31-2023 End: 11-10-2023 Cigarettes smoked current (pack per day) - Reported 1 [facility] Work Phone: Start: 03-31-2023 End: 01-01-2025 Alcohol intake Current drinker of alcohol (finding) [facility] Start: 12-21-2017 PHQ2 Score 1 [facility] Work Phone: Start: 03-31-2023 Tobacco Comment Parents smoked in childhood home and currently lives with smokers. [facility] Start: 01-10-2018 Alcohol Comment rare: 5 times/year C [facility] Start: 06-30-2023 Tobacco Comment Parents smoked in childhood home [facility] Start: 08-30-2023 Tobacco smoking status NHIS Unknown if ever smoked [facility] Has the [employer], gas, oil, or water [employer] threatened to shut off services in your home in past 12Mo No [facility] Are you now , , , , never or living with a partner? Never [facility] How often to you hav e a drink containing alcohol? Monthly or less [facility] How many standard drinks containing alcohol do you have on a typical day? 1 or 2 [facility] How often do you hav e 6 or more drinks on 1 occasion? Less than monthly [facility] How hard is it for you to pay for the very basics like food, housing, medical care, and heating Hard [facility] Do you feel stress - tense, restless, nervous, or anxious, or unable to sleep at night because your mind is troubled all the time - these days [OSQ] Rather much [facility] (I/We) worried whether (my/our) food would run out before (I/we) got money to buy more. Sometimes true [facility] Start: 09-06-2024 Sex Female (finding) [facility] (I/We) worried whether (my/our) food would run out before (I/we) got money to buy more. Never true [facility] NEGATED: Highlighted row Not [facility] Goals Date Patient Goal Desired Activity /State Personal health goal Functional Status Date Assessment Result Facility 09-06-2024 Functional status Ambulates [facility] Work Phone: 04-01-2024 Functional Status Door open, Room check performed [facility] 04-01-2024 Functional Status Marta [facility] 04-01-2024 Functional Status [facility] 04-01-2024 Functional Status bilateral knee high removed/off [facility] 04-01-2024 Functional Status Maintained [facility] 03-31-2024 Functional Status [facility] 03-31-2024 Functional Status Marta Nolasco [facility] 03-31-2024 Functional Status Nurse Moo west q2hrs Performed 3pm-7pm [facility] 03-31-2024 Functional Status Marta Nolasco [facility] 03-31-2024 Functional Status Bath cloths Marta [facility] 03-31-2024 Functional Status Ambulation Amb ulation in Room [facility] 03-31-2024 Functional Status Marta [facility] 2024 Functional Status Marta oNlasco [facility] 2024 Functional Status Done Marta [facility] 03-29-2024 Functional Status Sensory Deficits None [facility] 03-29-2024 Functional Status Activity Status ADL Gina ke [facility] 03-29-2024 Functional Status Marta Nolasco [facility] 03-29-2024 Functional Status Room check performed [facility] 03-29-2024 Functional Status Marta Nolasco [facility] 12-15-2021 Functional Status Room check performed [facility] 12-15-2021 Functional Status Marta Nolasco [facility] 12-15-2021 Functional Status Marta Nolasco [facility] 12-15-2021 Functional Status Done Marta [facility] 12-15-2021 Functional Status Marta Nolasco [facility] 12-15-2021 Functional Status Marta Nolasco [facility] 12-14-2021 Functional Status Dinner Percent 100 [facility] 12-14-2021 Functional Status Marta Nolasco [facility] 12-14-2021 Functional Status Marta N[facility]co [facility] 08-07-2022 Functional Status Valid [place] [facility] 12-12-2021 Functional Status ID band on, Safety level maintained [facility] 12-12-2021 Functional Status Resting [facility] 12-12-2021 Functional Status [facility] 12-12-2021 Functional Status [facility] 12-12-2021 Functional Status [facility] 12-11-2021 Functional Status Room check performed [facility] 12-11-2021 Functional Status Sensory Deficits None [facility] 06-19-2018 Are you deaf, or do you have serious difficulty hearing No 06/19/2018 5:50 PM Jazzmine Joyner, PARK No [facility] 06-19-2018 Are you blind, or do you have serious difficulty seeing, even when wearing glasses No 06/19/2018 5:50 PM Jazzmine Joyner, PARK No [facility] 06-19-2018 Do you have serious difficulty walking or climbing stairs No 06/19/2018 5:50 PM Jazzmine Joyner, PARK No [facility] 06-19-2018 Do you have difficul ty dressing or bathing No 06/19/2018 5:50 PM Jazzmine Joyner, PARK No [facility] 06-19-2018 Because of a physica l, mental, or emotional condition, do you have difficulty doing errands alone such as visiting a physician's office or shopping No 06/19/2018 5:50 PM Jazzmine Joyner RN No [facility] Mental Status Date Assessment Result Facility 09-06-2024 Cognitive function Voice/Name [facility] Work Phone: 04-01-2024 Mental Status Oriented x 4 [facility] 04-01-2024 Mental Status [facility] 03-31-2024 Mental Status [facility] 2024 Mental Status [facility] 03-29-2024 Mental Status Orientation Oriented x 4 [facility] 03-29-2024 Mental Status [facility] 12-15-2021 Mental Status Orientation Oriented x 4 [facility] 12-15-2021 Mental Status [facility] 12-14-2021 Mental Status [facility] 12-14-2021 Mental Status Orientation Asse ssment Oriented x 4 [facility] 12-13-2021 Mental Status [facility] 12-13-2021 Mental Status [facility] 12-12-2021 Mental Status Orientation Oriented x 4 [facility] 12-12-2021 Mental Status [facility] 12-12-2021 Mental Status [facility] 12-11-2021 Mental Status [facility] 06-19-2018 Because of a physica l, mental, or emotional condition, do you have serious difficulty concentrating, remembering, or making decisions No 06/19/2018 5:50 PM Jazzmine Joyner RN No [facility] Clinical Notes 06-16-2018 to 03-19-2025 Jeni Urbina, GALLO.CERTIFIED CONTROL SYSTEMS TECHNICIAN - 01/01/2025 8:00 AM EDTPatient Osman Acosta RD - 12/17/2024 10:15 AM EDTPatient Osman Acosta RD - 11/26/2024 10:15 AM EDT Note Date & Type Note Facility 03-19-2025 Note [facility] 03-19-2025 Note [facility] 03-18-2025 Note [facility] 03-18-2025 Note [facility] 03-17-2025 Note [facility] 03-03-2025 Note [facility] 02-26-2025 Note [facility] 02-26-2025 Note [facility] 02-24-2025 Note [facility] 02-20-2025 Discharge summary [facility] 02-20-2025 Radiology Diagnostic study note [facility] Imaging Services [address] [place], [place] [address] CTA Chest W/WO Contrast MR#: [id number] Acct: [id number] Name: TORRIE MARTINEZ Rep #: [id number] : 1990 F 34 From: Kin Quintero MD PCP: OMAR Jones Status: REG ER Study:CTA Chest W/WO Contrast Date of Exam: 02/20/25 Exam# [id number] Ordering Dr: Neo Phelps DO PROCEDURE: CTA [...] of the left upper lobe. [facility]: [facility]AMMER MILLDiaC Louann Bermoe; Dr. Neo Phelps DO ~ Cleaning Porter: Signed [facility] 02-20-2025 Radiology Diagnostic study note [facility] Imaging Services [address] [place] [address] Chest PA and Lateral MR#: [id number] Acct: [id number] Name: TORRIE MARTINEZ Rep #: [id number] : 1990 F 34 From: Gomez Hi MD PCP: OMAR Jones Status: REG ER Study:Chest PA and Lateral Date of Exam: 02/20/25 Exam# [id number] Ordering Dr: Neo Phelps DO PROCEDURE: CHEST [...] Louann Bermeo; Dr. Neo Phelps DO ~ Cleaning Porter: Signed [facility] 01-01-2025 History of Present illness Narrative Images from the original note were not included. [facility] New Patient Evaluation PATIENT NAME: Torrie Martinez DATE OF SERVICE: January 01, 2025 Recording using [employer] software for draft documentation of the visit was discussed with the patient/authorized field representative/health education; all questions welcomed and answered. Patient/authorized field representative/health education agreed to proceed CONSULTING PROVIDER: Elisa Jean [address] [facility] [place] [address] REASON FOR CONSULT: Elisa Jean sends the [...] using a CPAP machine (pressure unknown) since 7981-0638 but reports significant discomfort, including xerostomia and [...] day are sorted in reverse-chronological order 12/30/2024 Rives Sleepiness Scale Score 7 (No clinically significant [...] Date Allergic rhinitis due to allergen 02/2018 [facility] testing. Current severe episode of major [...] drop in both eyes four times daily. ebtaycifyxq-mooptbknk-wnkpmtfj (TRELEGY ELLIPTA) 200-62.5-25 mcg inhalation powder Inhale 1 puff as instructed once daily. buPROPion XL (WELLBUTRIN XL) 150 mg 24 hr tablet Take 1 tablet by mouth every morning. famotidine (PEPCID) 20 mg tablet Take 1 tablet by mouth two times a day as needed (GERD 2nd line). fluticasone (FLONASE) 50 mcg/actuation nasal spray Use 1 Ingalls in each nostril two times a day. [...] day whenever she is active. - Contact [facility] to obtain CPAP usage data and current [...] Drug use: No documented in this encounter [facility] 01-01-2025 Note [facility] 12-17-2024 Instructions Osman Bautista, WILLY - 12/17/2024 2:41 PM EDT Nutrition Action Plan Please call [phone], option 5. Leave a message for the [...] surgery using 5 1/2 servings Light Start [place] breakfast Essentials protein shakes per day, continue [...] prior to surgery documented in this encounter [facility] 12-17-2024 History of Present illness Narrative AMBULATORY PATIENT EDUCATION NOTE- Shared [employer] I have communicated my name and active licensure. The patient s identity and physical location were verified at the time of this visit. Either the patient or their legal field representative/health education has been informed of the risks and [...] ADEK Complete Capsule (3x per day) AND 8452-8210 mg calcium citrate -https://www.bariatricfusion.com/p roducts/wovdamilp-mwyspotsgmiz-aqh e-ntzi-dyfrvmb-with-iron OR - Procare health once daily LAKESHA/DS MVI AND 6836-5442 mg calcium citrate -https://Huan Xiong/collection s/bariatric-multivitamin/products/ lippvcxyhufg-fh-ynnq-capsule 7. Plan to use Light Start (white label) [place] Breakfast Essentials shake during the preop liquid [...] post operatively, and to use Light Start [place] breakfast Essentials shakes prior to surgery. Patient confirms to eat slowly and separates fluids from foods as recommended. Patient meets the National Institutes of Health guidelines for weight loss surgery and has [facility] Insurance therefore is required to complete 0 [...] intake at meals and snacks Please call [phone], option 5. Leave a message for the [...] surgery using 5 1/2 servings Light Start [place] breakfast Essentials protein shakes per day, continue [...] Osman Bautista RD documented in this encounter [facility] 12-17-2024 Note [facility] 12-02-2024 Note [facility] 11-28-2024 Note [facility] 11-26-[address] - [...] ADEK Complete Capsule (3x per day) AND 2632-5279 mg calcium citrate -https://www.bariatricfusion.com/p roducts/japlqazmw-fmxxnhjahaae-gzf u-upaf-kqchmyj-with-iron OR - Procare health once daily LAKESHA/DS MVI AND 5867-3222 mg calcium citrate -https://Huan Xiong/collection s/bariatric-multivitamin/products/ yskxfyynmtlj-ng-czjo-capsule 7. Plan to use Light Start (white label) [place] Breakfast Essentials shake during the preop liquid [...] at 10:15 AM documented in this encounter [facility] 11-26-2024 History of Present illness Narrative AMBULATORY PATIENT EDUCATION NOTE- Shared [employer] I have communicated my name and active licensure. The patient s identity and physical location were verified at the time of this visit. Either the patient or their legal field representative/health education has been informed of the risks and [...] time and intensity as able IN PROGRESS 500px database: https://VetCompare/ Chair or standing Team Body Project https://www.youE-TEK Dynamicsube.com/watch?v=e8 opMY-SoZc Chair exercise PixelSteam https://www.Zazengo/resour ce/videos-detail.asp?video=38 Amanda Ha Easy walk in place 15 min https://www.youE-TEK Dynamicsube.com/watch?v=nj sW44abyDW Body Project 30 min https://youE-TEK Dynamicsu.be/J-CrjH7QU-6 Amanda Ha Higher intensity walk 30 min https://www.youE-TEK Dynamicsube.com/watch?v=cv DJ6WNd2FY 6. Drink 64 ounces per day water. [...] IN PROGRESS 5 1/2 cartons Light Start [place] Instant Breakfast OR packets mixed with low [...] in the AM, 2 in the PM) www.bariatricfusion.BizXchange - Procare Health: 1 Bariatric Multivitamin and Calcium Citrate (total of 7824-2759 mg/day) * take calcium citrate separately from Multivitamin with iron at least 2 hours apart and 4 hours apart from additional calcium www.Huan Xiong - Bariatric Choice: 4 Complete Multivitamins (chewables) per day Www.[employer] - Bariatric Advantage: 2 Multivitamins and 3 Calcium Citrate Chewables per day * take calcium citrate separately from Multivitamin with iron at least 2 hours apart and 4 hours apart from additional calcium Www.bariatricPressly.BizXchange OR IF DS: Research post-op vitamins for LAKESHA/DS procedure: - Bariatric Fusion ADEK Complete Capsule (3x per day) AND 1790-0355 mg calcium citrate -https://www.bariatricfusion.BizXchange/p roducts/envokoomf-vnivrabrdtap-vep m-tnaa-wmzufgq-with-iron OR - Procare health once daily LAKESHA/DS MVI AND 5003-8615 mg calcium citrate -https://Huan Xiong/collection s/bariatric-multivitamin/products/ jcyuxzndsewr-ta-pxjx-capsule Pre-op goal weight: 413 pounds IN PROGRESS [...] guidelines for weight loss surgery and has [facility] Insurance therefore is required to complete 0 [...] ADEK Complete Capsule (3x per day) AND 7345-7792 mg calcium citrate -https://www.bariatricfusion.com/p roducts/jambwtnig-dtyxsbopmlys-rlf d-dmhp-utubdtt-with-iron OR - Procare health once daily LAKESHA/DS MVI AND 4729-8262 mg calcium citrate -https://Huan Xiong/collection s/bariatric-multivitamin/products/ scqlxkzpyxay-dk-zyse-capsule 7. Plan to use Light Start (white label) [place] Breakfast Essentials shake during the preop liquid [...] Osman Bautista RD documented in this encounter [facility] 11-26-2024 Note [facility] 11-26-2024 Telephone encounter Note The patient [...] Kendall RN November 26, 2024 8:50 AM [facility] 11-26-2024 Miscellaneous Notes The patient has [...] 2024 8:50 AM documented in this encounter [facility] 11-26-2024 Telephone encounter Note The patient [...] Kendall RN November 26, 2024 8:49 AM [facility] 11-26-2024 Miscellaneous Notes The patient has [...] 2024 8:49 AM documented in this encounter [facility] 11-26-2024 Telephone encounter Note [facility] 08/27/24 Patient phones requesting refills as follows: Requested Prescriptions Pending Prescriptions Disp Refills albuterol HFA (PROVENTIL HFA, VENTOLIN HFA) 90 mcg/actuation inhaler 1 each 5 Sig: Inhale 2 puffs as instructed every 4 hours as needed for wheezing/shortness of breath. Please review and advise. Nedra Jon LPN [facility] 11-26-2024 Miscellaneous Notes [facility] 08/27/24 Patient phones requesting refills as follows: Requested Prescriptions Pending Prescriptions Disp Refills albuterol HFA (PROVENTIL HFA, VENTOLIN HFA) 90 mcg/actuation inhaler 1 each 5 Sig: Inhale 2 puffs as instructed every 4 hours as needed for wheezing/shortness of breath. Please review and advise. Nedra Jon LPN documented in this encounter [facility] 11-21-2024 Note [facility] 11-20-2024 Note [facility] 11-14-2024 Note [facility] 11-13-2024 Discharge summary [facility] 11-13-2024 Radiology Diagnostic study note [facility] Imaging Services [address] [place], [place] [address] Knee 4 or More Views MR#: [id number] Acct: [id number] Name: TORRIE MARTINEZ Rep #: [id number] : 1990 F 34 From: Pj Perry MD PCP: Louann Bermeo [facility] Status: REG ER Study:Knee 4 or More Views Date of Exam: 11/13/24 Exam# [id number] Ordering Dr: Alanis Bailey MD PROCEDURE: KNEE 4 OR MORE VIEWS 11/13/2024 REASON FOR EXAM: INJURY/PAIN TECHNIQUE: KNEE 4 OR MORE VIEWS COMPARISON: None. FINDINGS: No evidence of acute fracture or dislocation. Mild to moderate degenerative changes of the knee. No knee joint effusion. RAD/Knee 4 or More Views IMPRESSION: No acute osseous abnormalities. Osteoarthrosis. Reading Location: [id number] CC: [facility] [facility] [facility] [facility]-C Louann Bermeo; Dr. Randy Bailey MD ~ Cleaning Porter: Signed [facility] 11-13-2024 Discharge summary Note Date/Time November 13, 2024 7:42p m [facility] Medical Records Department [address] [place] [address] Emergency Department Summary 11/13/24 MR#: [id number] Acct: [id number] Name: TORRIE MARTINEZ Rep #:[id number] : [...] No acute osseous abnormalities. Osteoarthrosis. Reading Location: [id number] Discharge Plan Triage Chief Complaint: Lower Extremity [...] - Active Staff] - 5-7 Days Knoble,Louann, [employer] [facility] [facility] [Primary Care Provider] - Print Language: Malian Disposition Disposition: Home, Self Care What to do if you have Problems For any increased pain, shortness of breath, bleeding, nausea or vomiting, chestpain, or any unexpected problems, contact your Primary Care Provider. Call [facility] ([phone]) or report to the closest Emergency Room. Call 911 if necessary. 11/13/241941 <Electronically signed by Randy Bailey MD> Cosigner Signature (if applicable): CC: [facility] [facility] [facility]-Wilton Bermeo ~ Signed [facility] Work Phone: 1(214) 792-621807-03-2025 [facility] History of Present illness Narrative* Brisa Murry MD - 11/05/2024 10:10 AM EDT November 05, 2024 Standing PSG Orders signed in the last 90 days None Future PSG Orders signed in the last 90 days Ordered Auth. provider PAP TITRATION PSG (CPAP, BIPAP, ASV) [[id number]] 09/12/24 Elisa Jean MD Assoc. diagnoses: BOLA (obstructive sleep apnea) [G47.33], Preoperative testing [Z01.818], BMI 60.0-69.9, adult (HCC) [Z68.44] Q: Special Needs (e.g.behavior, non-ambulatory, >450 lbs)?: A: No Q: Prior PAP (CPAP or Bilevel PAP) Use?: A: Yes Q: Sleep History: A: Sleep apnea CONSULT TO SLEEP MEDICINE - ADULT [[id number]] 09/12/24 Elisa Jean MD Assoc. diagnoses: BOLA [...] Date Allergic rhinitis due to allergen 02/2018 [facility]. Current severe episode of major depressive disorder without psychotic features without prior episode ([facility]) 09/14/2018 DNS (deviated nasal septum) Ex-smoker 01/10/2018 Started at age 18 and quit at 26. Smoked one cigar a day. MARCUS (generalized anxiety disorder) 09/14/2018 GERD (gastroesophageal reflux disease) Immunodeficiency ([facility]) IVIG Iron deficiency anemia 06/17/2018 Morbid obesity ([facility]) 06/15/2018 Nasal polyposis BOLA on CPAP Pleural effusion 06/15/2018 Severe persistent asthma with acute exacerbation ([facility]) 02/12/2018 Vitiligo The medical record was reviewed [...] from Elisa Spence A, , a B. [facility] Staff. Visit prep complete. Comments :No The sleep study is scheduled for 11/19. Insurance: Payor: [facility]ICARE / Plan: EDDI [facility] / Product Type: Medicare / Payer/Plan Subscr Sex Relation Sub. Ins. ID Effective Group Num 1. [facility] MEDIC[facility] * TORRIE MARTINEZ 1990 Female Self [id number] 07/07/23 [facility] [address] 2. [facility] MEDICAID * TORRIE MARTINEZ 1990 Female Self [id number] 02/05/23 [facility] [address] Josie Dacosta documented in [facility] encounter[facility] Telephone encounter Note* Telephone Encounter - Zach Mcgovern LPN - 10/30/2024 8:30 AM EDT Pharmacy requesting 90 day rx. [facility]06-25-2025 Miscellaneous Notes* Telephone Encounter - Zach Mcgovern LPN - 10/30/2024 8:30 AM EDT Pharmacy requesting 90 day rx. documented in this encounterOhio[facility]06-[facility]25 Telephone encounter Note * Telephone Encounter - Margret Navarrete MA - 10/29/2024 11:14 AM EDT [employer] message sent to patient Margret Navarrete MA [address]24-2025 Miscellaneous Notes* Telephone Encounter - Margret Navarrete MA - 10/29/2024 11:14 AM EDT [employer] message sent to patient Margret Navarrete MA * Telephone Encounter - Louann Bermeo APRN.CNP - 10/29/2024 9:53 AM EDT Please let patient know her iron is still low but is improving. Continue supplementation. The rest of her labs are stable. documented in this encounter[facility]06-[facility]25 Telephone encounter Note * Telephone Encounter - Louann Bermeo APRN.CNP - 10/29/2024 9:53 AM EDT Please let patient know her iron is still low but is improving. Continue supplementation. The rest of her labs are stable. [facility]06-23-2025 History of Present illness Narrative* Beverly [...] PATIENT PRESENTS WITH AN IMPLANTABLE OR ATTACHED CUSTOMER LIAISON: No RADIOLOGY DEPARTMENT: Ultrasound PERIPHERAL IV DATA: Not applicable SIGNED BY: Beverly Abarca RDMS October 28, 2024 2:27 PM documented in this encounterOhiohealth [facility]06-23-2025 [facility] Instructions* Patient Instructions* Osman Bautista, WILLY - 10/21/2024 11:15 AM EDT Nutrition Action Plan 1. Continue to refer to Nutritional Guidelines Section of Your Guide to Surgery by next session http s://my.[facility].org/-/scassets/files/org/bariatric/guides/bmiguidebook-ju fn7171.ashx?la=en 2. Do not skip meals. 3. Use [...] start. Increase time and intensity as able Visante workout database: https://VetCompare/ Chair or standing Team Body Project https://www.youE-TEK Dynamicsube.com/watch?v=c1diOC-BcOf Chair exercise NeomendpeLaREDChina.com https://www.Zazengo/resource/videos-detail.asp?video=38 Amanda Bonner Easy walk in place 15 min https://www.youtube.com/watch?v=wjlS77cgqUM Body Project 30 min https://youtu.be/J-MclO4DT-5 Amanda Bonner Higher intensity walk 30 min https://www.youE-TEK Dynamicsube.com/watch?v=efEW8VNy2KY 6. Drink 64 ounces per day water. [...] preop diet: 5 1/2 cartons Light Start [place] Instant Breakfast OR packets mixed with low [...] in the AM, 2 in the PM) www.bariatricGridpoint Systems.BizXchange - Procare Health: 1 Bariatric Multivitamin and Calcium Citrate (total of 1200- 1500 mg/day) * take calcium citrate separately from Multivitamin with iron at least 2 hours apart and 4 hours apart from additional calcium www.Huan Xiong - Bariatric Choice: 4 Complete Multivitamins (chewables) per day Www.[employer].BizXchange - Bariatric Advantage: 2 Multivitamins and 3 Calcium Citrate Chewables per day * take calcium citrate separately from Multivitamin with iron at least 2 hours apart and 4 hours apart from additional calcium Www.bariatricPressly.BizXchange OR IF DS: Research post-op vitamins for LAKESHA/DS procedure: - Bariatric Fusion ADEK Complete Capsule (3x per day) AND 0327-3031 mg calcium citrate -https://www.bariatricfusion.BizXchange/products/baxupundh-vhagpyalphtk-wqor-adek-vitam oj-rgcz-cino OR - Procare health once daily LAKESHA/DS MVI AND 9865-3865 mg calcium citrate -https://[employer].BizXchange/collections/bariatric-multivitamin/products/multivitamin -eq-cbkw-nkvkdee Pre-op goal weight: 413 pounds Protein needs: 100 gm per day Protein needs IF DS: 125-167 gm per day Follow Up on 11/26 at 10:15 AM documented in this encounterOhio[facility]06[facility] History of Present illness Narrative* Osman Bautista RD - 10/21/2024 10:15 AM EDT [facility] Nutrition Therapy: Virtual Consult - Initial Assessment I have communicated my name and active licensure. The patient s identity and physical location wereverified at the time of this visit. Either the patient or their legal field representative/health education has been informed of the risks and [...] Guide to Surgery by next session http s://my.[facility] [facility].org/-/scassets/files/org/bariatric/guides/bmiguidebook-ju [email or web address].ashx?la=en 2. Do not skip meals. 3. Use [...] start. Increase time and intensity as able Visante workout database: https://VetCompare/ Chair or standing Team Body Project https://www.youE-TEK Dynamicsube.com/watch?v=l9hiQR-VyNz Chair exercise Neomendpeople https://www.PixelSteam.com/resource/videos-detail.asp?video=38 Amanda Bonner Easy walk in place 15 min https://www.youE-TEK Dynamicsube.com/watch?v=ibpP71sxbJC Body Project 30 min https://youE-TEK Dynamicsu.be/J-RywT9JZ-2 Amanda Bonner Higher intensity walk 30 min https://www.youtube.com/watch?v=kcTN4IKb7FF 6. Drink 64 ounces per day water. [...] preop diet: 5 1/2 cartons Light Start [place] Instant Breakfast OR packets mixed with low [...] in the AM, 2 in the PM) www.bariatricGridpoint Systems.BizXchange - Procare Health: 1 Bariatric Multivitamin and Calcium Citrate (total of 1200- 1500 mg/day) * take calcium citrate separately from Multivitamin with iron at least 2 hours apart and 4 hours apart from additional calcium www.Huan Xiong - Bariatric Choice: 4 Complete Multivitamins (chewables) per day Www.bariatricBiGx Media.BizXchange - Bariatric Advantage: 2 Multivitamins and 3 Calcium Citrate Chewables per day * take calcium citrate separately from Multivitamin with iron at least 2 hours apart and 4 hours apart from additional calcium Www.bariatricadvantage.BizXchange OR IF DS: Research post-op vitamins for LAKESHA/DS procedure: - Bariatric Fusion ADEK Complete Capsule (3x per day) AND 7954-9091 mg calcium citrate -https://www.bariatricfusion.BizXchange/products/xxpiidbdg-wfvpiaoncghm-iyga-adek-vitam lg-fbss-ochc OR - Procare health once daily LAKESHA/DS MVI AND 7463-5953 mg calcium citrate -https://Huan Xiong/collections/bariatric-multivitamin/products/multivitamin -yn-sqgc-alugxtb Pre-op goal weight: 413 pounds Protein needs: [...] does not currently complete any physical activity.??? [place] body weight: 184 lbs Excess body weight: [...] guidelines for weight loss surgery and has [facility] Insurance therefore is required to complete 0 [...] 2024 TIME: 11:13 AM documented in this encounterOhio[facility]06-16-2025 [facility]25 Note [facility] History of Present illness Narrative* Emily [...] Date Allergic rhinitis due to allergen 02/2018 [facility] testing. Current severe episode of major depressive disorder without psychotic features without prior episode ([facility]) 09/14/2018 DNS (deviated nasal septum) Ex-smoker 01/10/2018 Started at age 18 and quit at 26. Smoked one cigar a day. AMRCUS (generalized anxiety disorder) 09/14/2018 GERD (gastroesophageal reflux disease) Immunodeficiency ([facility]) IVIG Iron deficiency anemia 06/17/2018 Morbid obesity ([facility]) 06/15/2018 Nasal polyposis BOLA on CPAP Pleural effusion 06/15/2018 Severe persistent asthma with acute exacerbation ([facility]) 02/12/2018 Vitiligo PAST SURGICAL HISTORY Procedure Laterality [...] hours as needed for wheezing/shortness of breath. rftthxxhofx-cfxyuueyk-wmriuimr (TRELEGY ELLIPTA) 200-62.5-25 mcg inhalation powder Inhale [...] (FLONASE) 50 mcg/actuation nasal spray Use 1 Ingalls in each nostril two times a day. [...] needed for pain Procedures documented in this encounterOhiohealth [facility]05-13-2025 History of Present illness Narrative* Eunice [...] PATIENT PRESENTS WITH AN IMPLANTABLE OR ATTACHED CUSTOMER LIAISON: No RADIOLOGY DEPARTMENT: General X-ray: Exam(s) Completed: Chest X-Ray PERIPHERAL IV DATA: Not applicable SIGNED BY: RT Stephane(R) September 17, 2024 8:47 AM documented in this encounterOhiohealth Marion [facility] Hospital05-13-2025 NoteMary [facility]05-08-2025 Instructions* Patient Instructions* Elisa Jean MD - 09/12/2024 2:29 PM EDT INSTRUCTIONS: 1) Please contact me (Dr. Jean) if you have not heard about your test results within a few days after you had them done. Thank you: Contact information: Bariatric and Metabolic [place] M61/Attention: Dr. Jean [address] [place] [address] 2) Please check with your insurance company regarding cost/coverage of any tests ordered prior to having them completed. Yesenia Martinez , Thank you for completing your visit today and we welcome you to the surgical program. We are sure that you will still have some additional questions and encourage you to reach out to your care provider via [employer] OR your Patient Navigator. The contact information [...] free to ask for a hard copy. https://my.[facility].org/-/scassets/files/org/bariatric/guides/bmiguideboo k-[email or web address]?la=en Once you complete all of the requirements (testing, consultations, diet, etc) from each provider, please call [phone] and select option #5 to initiate insurance approval. Also, if you have any questions along the way, we encourage you to join our weekly Navigation webinar every Monday from 12:00 pm - 1:00 pm. This webinar will give you an opportunity to chat with your patient navigator and learn about your specific program requirements. The link for this webinar isbelow: [email or web address] Please note scheduling information It is important to keep track of your scheduled appointments to ensure successful completion of oursurgical program. Any missed appointments can further delay your pre-surgical work-up. [facility] does offer an opt-in option for getting text message appointment reminders. Please follow the link below if you would like to opt into this service. [email or web address]://my.[email or web address].org/patients/information/appointment-checklist#appoin lrjxm-jggnnocfv-zio As part of your surgical work up, [...] these tests. You may call your local [facility] to get an appointment. - Lab work- No appointment is needed for this, you may complete at any [facility].These are usually fasting labs, please be sure to fast (only water permitted) for 10-12 hours priorto the test. -Sleep Study- Please call [phone] or [phone] to get this appointment set up. -Sleep Medicine Consult- (Only needed if sleep study confirms sleep apnea) Please call [phone] [phone] to schedule an appointment. Any testing that is completed outside of [facility] will need faxed to [phone]. We look forward to working with you on this journey, Elisa Jean MD documented in this encounterOhiohealth [facility]05-08-2025 History of Present illness Narrative* Elisa Jean MD - 09/12/2024 2:15 PM EDT I have communicated my name and active licensure. The patient's identity and physical location wereverified at the time of this visit. Either the patient or their legal field representative/health education has been informed of the risks and [...] something done in the hospital-[facility]: last test was 4 [...] hours as needed for wheezing/shortness of breath. khbrrhnzijj-tazdspjtv-wpkooasy (TRELEGY ELLIPTA) 200-62.5-25 mcg inhalation powder Inhale [...] (FLONASE) 50 mcg/actuation nasal spray Use 1 Ingalls in each nostril two times a day. [...] HX 2014 Review of patient's allergies indicates: Jasivr Inhibitors Cough Sulfa (Sulfonamide * Unknown Ultram [...] which included preparing to see the patient, dlft-rn-upxl patient care, obtaining and/or reviewing separately obtained history, counseling andeducating the patient/family/caregiver, ordering medications, tests, or procedures, and care coordination (not separately reported). documented in this encounterOhiohealth [facility] Hospital05-08-2025 NoteMary [facility]05-02-2025 Consult note [facility] Medical Records Department [address] [place] [address] Counseling Note - Pharmacy 09/06/24 6674 MR#: [id number] Acct: [id number] Name: TORRIE MARTINEZ Rep #:[id number] : 1990 34 From: Nate Mc PCP: OMAR Jones Status:ADM IN Y [facility] [place] Med Reconciliation Pharmacy Service has performed discharge [...] Signature (if applicable): Date CC: ~ Signed [facility]05-02-2025 Consult note Author Nate Mc [facility] Note Date/Time September 06, 2024 5:15pm [facility] Medical Records Department [address] [place] [address] Counseling Note - Pharmacy 09/06/24 1433 MR#: [id number] Acct: [id number] Name: TORRIE MARTINEZ Rep #:[id number] : 1990 34 From: Nate Mc PCP: OMAR Jones Status:ADM IN Y Location: [place] [id number] [place] Med Reconciliation Pharmacy Service has performed discharge [...] Signature (if applicable): Date CC: ~ Signed [facility] Work Phone: 1(572) 734-571905-02-2025 Discharge summary Author Evans Carter [facility] Note Date/Time September 06, 2024 9:28[facility] Medical Records Department [address] [place] [address] Discharge Summary 09/06/24 0923 MR#: [id number] Acct: [id number] Name: TORRIE MARTINEZ Rep #:[id number] : 1990 34 From: Evans Carter MD PCP: OMAR Jones Status:ADM IN Location: [place] [address] Providers Date of Admission: 09/03/24 Primary Care Physician: OMAR Jones Consultations 09/03/24 19:11 Consult: Tinsmith Helper / Pulmonary Medicine Routine Consulting Provider: Intensivists/Pulmonary [...] 72.0 H, Lymph % (Auto) 18.9 L, Armstrong % (Auto) 7.5, Eos % (Auto) 0.1, [...] Self Care Charges/Coding Visit Charges Inpatient E&M: 02926 Disch Hosp >30min 09/06/2428 <Electronically signed by Evans Carter MD> Cosigner Signature (if applicable): CC: OMAR Bermeo; Dr. Evans Carter MD~ Signed [facility] Work Phone: 1(686) 632-802505-02-2025 Discharge summary [facility] Medical Records Department [address] [place] [address] Discharge Summary 09/06/24922 MR#: [id number] Acct: [id number] Name: TORRIE MARTINEZ Rep #:[id number] : 1990 34 From: Evans Carter MD PCP: OMAR Jones Status:ADM IN Location: [place] [address]- Providers Date of Admission: 09/03/24 Primary Care Physician: OMAR Jones Consultations 09/03/24 19:11 Consult: Tinsmith Helper / Pulmonary Medicine Routine Consulting Provider: Intensivists/Pulmonary [...] 72.0 H, Lymph % (Auto) 18.9 L, Armstrong % (Auto) 7.5, Eos % (Auto) 0.1, [...] Wheezing) Referrals / Follow Up: Louann Bermeo, [facility] [Primary Care Provider] - Within 2 Weeks Disposition Disposition (needs filled in before D/C Order can be placed): Home, Self Care Charges/Coding Visit Charges Inpatient E&M: 69403 Disch Hosp >30min 09/06/24 0928 Cosigner Signature (if applicable): CC: OMAR Bermeo; Dr. Evans Carter MD~ Signed [facility]05-02-2025 [facility] Medical Records Department [address] [place] [address] Discharge Summary 09/06/24922 MR#: [id number] Acct: [id number] Name: TORRIE MARTINEZ Rep #: [id number] : 1990 34 From: Evans Carter MD PCP: OMAR Jones Status:ADM IN Location: [facility]-3 Providers Date of Admission: 09/03/24 Primary Care Physician: OMAR Jones Consultations 09/03/24 19:11 Consult: Tinsmith Helper / Pulmonary Medicine Routine Consulting Provider: Intensivists/Pulmonary [...] Atraumatic; normocephalic EYES; A (more content not included)...[facility]05-01-2025 Progress note Author Evans Carter [facility] Note Date/Time September 05, 2024 10:19a m [facility] Medical Records Department [address] [place] [address] Progress Note - Hospitalist 09/05/24 0828 MR#: [id number] Acct: [id number] Name: TORRIE MARTINEZ Rep #:[id number] : 1990 34 From: Evans Carter MD PCP: Louann Bermeo [facility] Status:ADM IN Location: [place] [address] Reason for Visit Reason for Visit: Diagnoses [...] 85.8 H, Lymph % (Auto) 8.7 L, Armstrong % (Auto) 3.8, Eos % (Auto) 0.0, [...] On enoxaparin Charges/Coding Visit Charges Inpatient E&M: 68302 Subs Hosp L2 09/05/24 1019 <Electronically signed by Evans Carter MD> Cosigner Signature (if applicable): CC: ~ Signed [facility] Work Phone: 1(251) 340-701905-01-2025 Progress note Author Toro Holcomb [facility] Note Date/Time September 05, 2024 9:28am [facility] Medical Records Department [address] [place] [address] Progress Note - Tinsmith Helper 09/05/24 0851 MR#: [id number] Acct: [id number] Name: TORRIE MARTINEZ Rep #:[id number] : 1990 34 From: Toro Holcomb DO PCP: OMAR Jones Status:ADM IN Location: [place] [id number]- 1 Assessment & Plan Assessment/Plan (1) Acute [...] therapy along with a 5-day burst of dzufqzztxu74 mg daily. 8. Recommend outpatient follow-up with primary cigar wrapper tender automatic after discharge. 9. Will sign off at this time. Please call with any additional questions. IMPRESSIONS: 1. Acute on chronic combined respiratory failure Appears secondary to asthma exacerbation precipitated by right upper lobe pneumonia. The patient, at her baseline, requires 5 L/min of supplemental oxygen. She is currently followed on an outpatient basis by Dr. Bere Marlow [facility] pulmonary medicine. At this time, [...] She should ultimately follow-up with her primary cigar wrapper tender automatic after discharge home. 2. Obstructive sleep apnea/super morbid obesity/depression/heart failure with preserved ejection fraction Complicates care, management, recovery and prognosis. Continue home medicationsas indicated. Agree with continuing PAP therapy with naps and nightly. Encourage incentive spirometer use and mobilize patient as tolerated. This note was generated with [employer] dictation software. It may contain incorrectwords, spelling, [...] 85.8 H, Lymph % (Auto) 8.7 L, Armstrong % (Auto) 3.8, Eos % (Auto) 0.0, [...] affect normal Charges/Coding Visit Charges Inpatient E&M: 31695 Subs Hosp L2 09/05/24927 <Electronically signed by Toro Holcomb DO> Cosigner Signature (if applicable): CC: ~ Signed [facility] Work Phone: 1(324) 570-337605-01-2025 Progress note [facility] Medical Records Department [address] [place] [address] Progress Note - Hospitalist 09/05/24827 MR#: [id number] Acct: [id number] Name: TORRIE MARTINEZ Rep #:[id number] : 1990 34 From: Evans Carter MD PCP: Louann Bermeo, [facility] Status:ADM IN Location: [place] [address] Reason for Visit Reason for Visit: Diagnoses [...] 85.8 H, Lymph % (Auto) 8.7 L, Armstrong % (Auto) 3.8, Eos % (Auto) 0.0, [...] On enoxaparin Charges/Coding Visit Charges Inpatient E&M: 43493 Subs Hosp L2 09/05/24 1019 Cosigner Signature (if applicable): CC: ~ Signed [facility]05-01-2025 Progress note [facility] Medical Records Department [address] [place] [address] Progress Note - Tinsmith Helper 09/05/24 0851 MR#: [id number] Acct: [id number] Name: TORRIE MARTINEZ Rep #:[id number] : 1990 34 From: Toro Holcomb DO PCP: Louann Bermeo [facility] Status:ADM IN Location: [address] 1 Assessment & Plan Assessment/Plan (1) [...] therapy along with a 5-day burst of gduvotqufk26 mg daily. 8. Recommend outpatient follow-up with primary cigar wrapper tender automatic after discharge. 9. Will sign off at this time. Please call with any additional questions. IMPRESSIONS: 1. Acute on chronic combined respiratory failure Appears secondary to asthma exacerbation precipitated by right upper lobe pneumonia. The patient, at her baseline, requires 5 L/min of supplemental oxygen. She is currently followed on an outpatient basis by Dr. Bere Holcombof [facility] pulmonary medicine. At this time, [...] She should ultimately follow-up with her primary cigar wrapper tender automatic after discharge home. 2. Obstructive sleep apnea/super morbid obesity/depression/heart failure with preserved ejection fraction Complicates care, management, recovery and prognosis. Continue home medicationsas indicated. Agree with continuing PAP therapy with naps and nightly. Encourage incentive spirometer use and mobilize patient as tolerated. This note was generated with [employer] dictation software. It may contain incorrectwords, spelling, [...] 85.8 H, Lymph % (Auto) 8.7 L, Armstrong % (Auto) 3.8, Eos % (Auto) 0.0, [...] affect normal Charges/Coding Visit Charges Inpatient E&M: 87515 Subs Hosp L2 09/05/24 0965 Cosigner Signature (if applicable): CC: ~ Signed [facility]04-30-2025 Consult note Author Toro Holcomb [facility] Note Date/Time September 04, 2024 9:3 7am [facility] Medical Records Department [address] [place] [address] Consultation - Tinsmith Helper 09/04/24 0830 MR#: [id number] Acct: [id number] Name: TORRIE MARTINEZ Rep #:[id number] : 1990 34 From: Toro Holcomb DO PCP: Louann Bermeo, [facility] Status:ADM IN Location: ICU CVICU20 2-1 Assessment [...] an outpatient basis by Dr. Bere Holcombof [facility] pulmonary medicine. At this time, [...] as tolerated. This note was generated with [employer] dictation software. It may contain incorrectwords, spelling, [...] Dr. Bere Holcomb of pulmonary medicine at [facility] due to a history of [...] down to 8 L/min via nasal cannula. [facility] Medical History Pneumonia COPD (chronic obstructive [...] (Auto) 80.1 H, Lymph% (Auto) 10.9 L, Armstrong % (Auto) 6.9, Eos % (Auto) 0.7, [...] 90.6 H, Lymph % (Auto) 6.4 L, Armstrong % (Auto) 1.7, Eos % (Auto) 0.0, [...] 2. Additional description as above. Reading Location: [facility] Charges/Coding Visit Charges Inpatient E&M: 31589 Init Hosp L3 09/04/24 0937 <Electronically signed by Toro Holcomb DO> Cosigner Signature (if applicable): CC: [facility] Louann Bermeo~ Signed [facility] Work Phone: 1(631) 142-265204-30-2025 Progress note Author Evans Carter [facility] Note Date/Time September 04, 2024 8:0 8am [facility] Medical Records Department [address] [place] [address] Progress Note - Hospitalist 09/04/24 0716 MR#: [id number] Acct: [id number] Name: TORRIE MARTINEZ Rep #:[id number] : [...] (Auto) 80.1 H, Lymph% (Auto) 10.9 L, Armstrong % (Auto) 6.9, Eos % (Auto) 0.7, [...] 90.6 H, Lymph % (Auto) 6.4 L, Armstrong % (Auto) 1.7, Eos % (Auto) 0.0, [...] 2. Additional description as above. Reading Location: [facility] Physical Exam Narrative GENERAL: Cooperative HEENT: Atraumatic; [...] On enoxaparin Charges/Coding Visit Charges Inpatient E&M: 15989 Subs Hosp L3 09/04/24 0808 <Electronically signed by Evans Carter MD> Cosigner Signature (if applicable): CC: ~ Signed [facility] Work Phone: 1(125) 327-186904-30-2025 Consult note [facility] Medical Records Department [address] [place] [address] Consultation - Tinsmith Helper 09/04/24 0830 MR#: [id number] Acct: [id number] Name: TORRIE MARTINEZ Rep #:[id number] : [...] an outpatient basis by Dr. Bere Holcombof [facility] pulmonary medicine. At this time, [...] as tolerated. This note was generated with [employer] dictation software. It may contain incorrectwords, spelling, [...] [facility] [...] down to 8 L/min via nasal cannula. [facility] Medical History Pneumonia COPD (chronic obstructive [...] (Auto) 80.1 H, Lymph% (Auto) 10.9 L, Armstrong % (Auto) 6.9, Eos % (Auto) 0.7, [...] 90.6 H, Lymph % (Auto) 6.4 L, Armstrong % (Auto) 1.7, Eos % (Auto) 0.0, [...] 2. Additional description as above. Reading Location: [facility] Charges/Coding Visit Charges Inpatient E&M: 15094 Init Hosp L3 09/04/24 0937 Cosigner Signature (if applicable): CC: [facility] Louann Bermeo~ Signed [facility]04-30-2025 Progress note [facility] Medical Records Department [address] [place] [address] Progress Note - Hospitalist 09/04/24 0716 MR#: [id number] Acct: [id number] Name: TORRIE MARTINEZ Rep #:[id number] : [...] (Auto) 80.1 H, Lymph% (Auto) 10.9 L, Armstrong % (Auto) 6.9, Eos % (Auto) 0.7, [...] 90.6 H, Lymph % (Auto) 6.4 L, Armstrong % (Auto) 1.7, Eos % (Auto) 0.0, [...] 2. Additional description as above. Reading Location: [facility] Physical Exam Narrative GENERAL: Cooperative HEENT: Atraumatic; [...] On enoxaparin Charges/Coding Visit Charges Inpatient E&M: 98926 Subs Hosp L3 09/04/24 0808 Cosigner Signature (if applicable): CC: ~ Signed [facility]04-29-2025 History and physical note Author Jesse Lobo [facility] Note Date/Time September 03, 2024 7:5 9pm [facility] Medical Records Department [address] [place] [address] H&P Exam - Hospitalist 09/03/24 1800 MR#: [id number] Acct: [id number] Name: TORRIE MARTINEZ Rep #:[id number] : 1990 34 From: Jesse clark MD PCP: Louann Bermeo [facility] Status:ADM IN Location: ICU CVICU20 2-1 HPI [...] her leukocytosis and fever consistent with pneumonia. [facility] Medical History Pneumonia COPD (chronic obstructive [...] (Auto) 80.1 H, Lymph% (Auto) 10.9 L, Armstrong % (Auto) 6.9, Eos % (Auto) 0.7, [...] 2. Additional description as above. Reading Location: [facility] Assessment & Plan Assessment/Plan (1) Right upper [...] DVT: Lovenox Charges/Coding Visit Charges Inpatient E&M: 01291 Init Hosp L3 09/03/241930 <Electronically signed by Jesse Lobo MD> Cosigner Signature (if applicable): CC: [facility] Louann Bermeo; Dr. Jesse Lobo MD~ Signed ADDENDUM by Dr. Jesse Lobo MD on 09/03/24 at 1959 Addendum Left lower extremity was little bit swollen and painful, venous Doppler in the ER was negative for clot 09/03/241958<Electronically signed by Jesse Lobo MD> Cosigner Signature (if applicable): cc: [facility] Louann Bermeo; Dr. Jesse Lobo MD ~* Signed [facility] Work Phone: 1(982) 633-374404-29-2025 History and physical note [facility] Medical Records Department [address] [place] [address] H&P Exam - Hospitalist 09/03/24 1800 MR#: [id number] Acct: [id number] Name: TORRIE MARTINEZ Rep #:[id number] : [...] her leukocytosis and fever consistent with pneumonia. [facility] Medical History Pneumonia COPD (chronic obstructive [...] (Auto) 80.1 H, Lymph% (Auto) 10.9 L, Armstrong % (Auto) 6.9, Eos % (Auto) 0.7, [...] 2. Additional description as above. Reading Location: [facility] Assessment & Plan Assessment/Plan (1) Right upper [...] DVT: Lovenox Charges/Coding Visit Charges Inpatient E&M: 83097 Init Hosp L3 09/03/241930 Cosigner Signature (if applicable): CC: [facility] Louann Bermeo; Dr. Jesse Lobo MD~ Signed ADDENDUM by Dr. Jesse Lobo MD on 09/03/24 at 1958 Addendum Left lower extremity was little bit swollen and painful, venous Doppler in the ER was negative for clot 09/03/241958 Cosigner Signature (if applicable): cc: [facility] Bermeo; Dr. Jesse Lobo MD ~* Signed [facility]04-29-2025 Discharge summary Author Randy Bailey [facility] Note Date/Time September 03, 2024 5:3 7pm [facility] Medical Records Department [address] [place] [address] Emergency Department Summary 09/03/24 MR#: [id number] Acct: [id number] Name: TORRIE MARTINEZ Rep #:[id number] : [...] Context: Gradual Onset Timing: Continuous Quality: Dyspnea, [place] exertion, orthopnea, infectious symptoms Location: Respiratory Current [...] is seen by Dr. Holcomb at [facility]. Shehad recent pulmonary function test done. Patient [...] Prior similar symptoms: Yes Recent Illness/Hospitalization: Yes ([facility] [facility]. She states she was on a Lasix drip.) [facility] Medical History Pneumonia COPD (chronic obstructive pulmonary [...] 80.1 H Lymph % (Auto) 10.9 L Armstrong % (Auto) 6.9 Eos % (Auto) 0.7 [...] 2. Additional description as above. Reading Location: [facility] Management Discussion w/another healthcare provider: Hospitalist (Hospitalist [...] failure due to pneumonia), Discussing w/Patient &/or Family/Senior Sustainability Advisor, Discussing w/Consultants and Arranging Admission or Transfer Discharge Plan Dx/Rx/DC Orders Clinical Impression: Chronic respiratory failure with hypoxia and hypercapnia, Anemia, Right upper lobe pneumonia, SIRS (systemic inflammatory response syndrome), Acute pain of left lower extremity, Bronchospasm, acute, Sinus tachycardia seen on health information internship, Adult BMI 60.0-69.9 kg/sq m Disposition Disposition: Acute Care Hospital [facility] What to do if you have Problems For any increased pain, shortness of breath, bleeding, nausea or vomiting, chestpain, or any unexpected problems, contact your Primary Care Provider. Call [facility] ([phone]) or report to the closest Emergency Room. Call 911 if necessary. 09/03/24 1737 <Electronically signed by Randy Bailey MD> Cosigner Signature (if applicable): CC: SPICE MILLER HAMMER MILLJeff Bermeo ~ Signed [facility] Work Phone: 1(696) 170-909604-29-2025 Evaluation note* Diagnosis Onset Date Resolution Status Admit Date Acute pain of left lower extremity acute September 03, 2024 5:36pm Adult BMI 60.0-69.9 kg/sq m acute September 03, 2024 5:36pm Anemia acute September 03 5:36pm Bronchospasm, acute acute September 03, 2024 5:36pm Right upper lobe pneumonia acute September 03, 2024 5:36pm Sinus tachycardia seen on health information internship acute September 03, 2024 5:36pm SIRS (systemic inflammatory response syndrome) acute September 03, 2 025 5:36pm Acute on chronic respiratory failure with hypoxia and hypercapnia chronic September 03, 2024 5:36pm Chronic respiratory failure with hypoxia and hypercapnia chronic Apr il 2024 5:36pm [facility] Work Phone: 1(467) 397-977304-29-2025 Evaluation note* Diagnosis Onset Date Resolution Status [...] 03, 2024 5:36pm Sinus tachycardia seen on health information internship resolved September 03, 2024 5:36pm SIRS (systemic inflammatory response syndrome) resolved September 03, 2 025 5:36pm [facility] Work Phone: 1(301) 237-747204-29-2025 Discharge summary [facility] Medical Records Department [address] [place] [address] Emergency Department Summary 09/03/24 MR#: [id number] Acct: [id number] Name: TORRIE MARTINEZ Rep #:[id number] : 1990 34 From: Randy Bailey MD PCP: Louann Bermeo, [employer]AMMER M[employer]-C Status:REG ER Location: ED HPI History of Present Illness Chief Complaint: Shortness of Breath Detail of Chief Complaint: Shortness of breath and upper respiratory symptoms Informant: patient, family and EMS (Pulse ox was 60% when patient was supine.) Onset/Context/Timing Onset: Days Context: Gradual Onset Timing: Continuous Quality: Dyspnea, [place] exertion, orthopnea, infectious symptoms Location: Respiratory Current [...] is seen by Dr. Holcomb at the [facility]. Shehad recent pulmonary function test done. Patient [...] Prior similar symptoms: Yes Recent Illness/Hospitalization: Yes ([facility]. She states she was on a Lasix drip.) [facility] Medical History Pneumonia COPD (chronic obstructive pulmonary [...] 80.1 H Lymph % (Auto) 10.9 L Armstrong % (Auto) 6.9 Eos % (Auto) 0.7 [...] 2. Additional description as above. Reading Location: [facility] Management Discussion w/another healthcare provider: Hospitalist (Hospitalist [...] failure due to pneumonia), Discussing w/Patient &/or Family/Senior Sustainability Advisor, Discussing w/Consultants and Arranging Admission or Transfer Discharge Plan Dx/Rx/DC Orders Clinical Impression: Chronic respiratory failure with hypoxia and hypercapnia, Anemia, Right upper lobe pneumonia, SIRS (systemic inflammatory response syndrome), Acute pain of left lower extremity, Bronchospasm, acute, Sinus tachycardia seen on health information internship, Adult BMI 60.0-69.9 kg/sq m Disposition Disposition: Acute Care Hospital [facility] What to do if you have Problems For any increased pain, shortness of breath, bleeding, nausea or vomiting, chestpain, or any unexpected problems, contact your Primary Care Provider. Call [facility] ([phone]) or report tothe closest Emergency Room. Call 911 if necessary. 09/03/24 1737 Cosigner Signature (if applicable): CC: OMAR Bermeo ~ Signed [facility]04-29-2025 Radiology Diagnostic study note [facility] Imaging Services [address] [place] [address] Chest 1 View (Portable) MR#: [id number] Acct: [id number] Name: TORRIE MARTINEZ Rep #: [id number] : 1990 F 34 From: Sera Guevara MD PCP: OMAR Jones Status: REG ER Study:Chest 1 View (Portable) Date of Exam: 09/03/24 Exam# [id number] Ordering Dr: Alanis Bailey MD PROCEDURE: CHEST [...] 2. Additional description as above. Reading Location: [facility] CC: OMAR Bermeo; Dr. Randy Bailey MD ~ Cleaning Porter: Signed [facility]04-28-2025 Telephone encounter Note* Telephone Encounter - Berna Ochoa MA - 09/02/2024 4:59 PM EDT Insurance Verified : [facility] Mycare Coverage: yes CPT Codes: 21997, 95918, 54133, 89726 and 61482 Nutrition Requirements: # 0 Special requirements: n/a dual plan In Net % 100 OOP Max: $0 Deductible $0 Copay $0 IOQ/ELIZABETH/BDC Rep Name: nw Ref # [id number] [facility]04-28-2025 Miscellaneous Notes* Telephone Encounter - Berna Ochoa MA - 09/02/2024 4:59 PM EDT Insurance Verified : [facility] Mycare Coverage: yes CPT Codes: 47095, 67660, 56687, 96801 and 71887 Nutrition Requirements: # 0 Special requirements: n/a dual plan In Net % 100 OOP Max: $0 Deductible $0 Copay $0 IOQ/ELIZABETH/BDC Rep Name: nw Ref # [id number] documented in this encounterOhio[facility]-24-2025 [facility] Procedure note* Torrie Syed RPFT - [...] DATE: August 27, 2024 TIME: 9:44 AM [facility]04-22-2025 Procedure note* Tinadheeraj FIONA Brownlee - [...] 2024 TIME: 9:44 AM documented in this encounterOhiohealth [facility]04-22-2025 History of Present illness Narrative* Radha Chapman APRN.LINDA - 08/27/2024 8:00 AM EDT Images from the original note were not included. Pulmonary Medicine Patients name: Torrie ARMSTRONGN: [id number] PCP: Louann Bermeo APRN.CERTIFIED CONTROL SYSTEMS TECHNICIAN CC: Asthma follow-up HPI: Torrie Martinez is [...] spray Commonly known as: FLONASE Use 1 Ingalls in each nostril two times a day. [...] ELLIPTA 200-62.5-25 mcg inhalation powder Generic drug: doscjfhpxnm-hkpdihpgh-skbidslh Inhale 1 Puff as instructed once daily. [...] Neut (k/uL) Date Value 07/18/2024 4.27 Abs Armstrong (k/uL) Date Value 07/18/2024 0.55 10/26/2018 0.54 [...] [facility]. Morbid obesity (HCC) - ICD9: 278.01, [...] which included preparing to see the patient, uahq-rx-srok patient care, completing clinical documentation, performing a medically appropriate examination, counseling and educating the patient/family/caregiver, and ordering medications, tests,or procedures. documented in this encounterOhiohealth [facility]04-22-2025 [facility]03-14-2025 Telephone encounter Note* Telephone Encounter - Linda Griffith RN - 07/19/2024 2:52 PM EDT Pt returned call and given provider's message below with verbalized understanding. [facility]03-14-2025 Miscellaneous Notes* Telephone Encounter - Linda Griffith RN - 07/19/2024 2:52 PM EDT Pt returned call and given provider's message below with verbalized understanding. * Telephone Encounter - Margret Navarrete MA - 07/19/2024 11:24 AM EDT Pt active on [employer] message sent Margret Navarrete MA * Telephone [...] her labs are stable. documented in this encounterOhiohealth [facility] Hospital03-14-2025 Telephone encounter Note * Telephone Encounter - Margret Navarrete MA - 07/19/2024 11:24 AM EDT Pt active on [employer] message sent Margret Navarrete MA [facility]03-14-2025 Telephone encounter Note* Telephone Encounter - Margret Navarrete MA - 07/19/2024 9:18 AM EDT Left message for patient to return call to office Margret Navarrete MA [facility]03-14-2025 Telephone encounter Note* Telephone Encounter - Louann Bermeo APRN.CNP - 07/19/2024 9:15 AM EDT Please let patient know her iron is low. I have ordered supplementation for her to start daily. Will recheck in 3 months, orders in. The rest of her labs are stable. [facility]03-13-2025 Telephone encounter Note* Telephone Encounter - [...] this time. Pt uses [facility] in [place]. Last prescriptionwas 06/30/23. [facility]03-13-2025 Miscellaneous Notes* Telephone Encounter - Tea [...] this time. Pt uses [facility] in [place]. Last prescriptionwas 06/30/23. documented in this encounterOhiohealth Marion [facility] Hospital03-13-2025 [facility]03-13-[facility] History of Present illness Narrative* Louann Bermeo APRN.CERTIFIED CONTROL SYSTEMS TECHNICIAN - 07/18/2024 8:12 AM EDT Chief Complaint [...] Date Allergic rhinitis due to allergen 02/2018 [place] [facility] testing. Current severe episode of major depressive disorder without psychotic features without prior episode (HCC) 09/14/2018 DNS (deviated nasal septum) Ex-smoker 01/10/2018 Started at age 18 and quit at 26. Smoked one cigar a day. MARCUS (generalized anxiety disorder) 09/14/2018 GERD (gastroesophageal reflux disease) Immunodeficiency ([facility]) IVIG Iron deficiency anemia 06/17/2018 Morbid obesity ([facility]) 06/15/2018 Nasal polyposis BOLA on CPAP Pleural [...] into both eyes four times a day atwpnmrntgf-xsqvwhimj-gkeibveu (TRELEGY ELLIPTA) 200-62.5-25 mcg inhalation powder Inhale [...] (FLONASE) 50 mcg/actuation nasal spray Use 1 Ingalls in each nostril two times a day. [...] CHLORIDE ER 20 MEQ TABLET,EXTENDED RELEASE(PART/CRYST) 4. 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 - ICD9: V58.69, [...] - SERTRALINE 50 MG TABLET Louann Bermeo APRN.CERTIFIED CONTROL SYSTEMS TECHNICIAN documented in this encounterOhiohealth Marion [facility] Hospital12-22-2024 [facility]12-22-2024 History of Present illness Narrative* Liberty Weir APRN.CERTIFIED CONTROL SYSTEMS TECHNICIAN - 04/28/2024 12:46 PM EST This note [...] history is provided by the patient. No packager was used. Headache This is a new [...] disorder without psychotic features without prior episode ([facility]) 09/14/2018 DNS (deviated nasal septum) Ex-smoker 01/10/2018 Started at age 18 and quit at 26. Smoked one cigar a day. MARCUS (generalized anxiety disorder) 09/14/2018 GERD (gastroesophageal reflux disease) Immunodeficiency ([facility]) IVIG Iron deficiency anemia 06/17/2018 Morbid obesity ([facility]) 06/15/2018 Nasal polyposis BOLA on CPAP Pleural [...] into both eyes four times a day cteqqvogded-ufhwqewzu-ckojalqh (TRELEGY ELLIPTA) 200-62.5-25 mcg inhalation powder Inhale [...] (FLONASE) 50 mcg/actuation nasal spray Use 1 Ingalls in each nostril two times a day. [...] intracranial Liberty Weir APRN.LINDA documented in this encounterOhiohealth Marion [facility] Hospital12-13-2024 Telephone encounter Note * Telephone Encounter - Margret Navarrete MA - 04/19/2024 1:05 PM EST Faxed to elda Navarrete MA [facility]12-13-2024 Miscellaneous Notes* Telephone Encounter - Margret [...] [facility] [place] * Telephone Encounter - Brendan Adler LPN - 04/19/2024 11:30 AM EST Patient calling she had gone to [facility] for the support stockings. They are requesting a new rx with what compression for the knee high support stockings please. Can fax order to them. Did not pend order since not sure what compression wanted. Please advise documented in this encounterOhiohealth Marion General Hospital12-13-2024 Telephone encounter Note * Telephone Encounter - Lovely Chan APRN.CNP - 04/19/2024 12:28 PM EST Printed. In outbox. Thank you, Lovely Chan APRN.CERTIFIED CONTROL SYSTEMS TECHNICIAN [facility] Work Phone: [phone] 941-721312-13-2024 Telephone encounter Note* Telephone Encounter - Mayra Carter MA - 04/19/2024 12:23 PM EST Please print script Mayra Carter MA [facility]12-13-2024 Telephone encounter Note* Telephone Encounter - Louann Bermeo APRN.CNP - 04/19/2024 11:40 AM EST Please fax order. [facility]12-13-2024 Telephone encounter Note* Telephone Encounter - Charlotte Pandey - 04/19/2024 11:34 AM EST Patient would like to prescription sent to the [facility] in [place]. [facility] Work Phone: [phone] Telephone encounter Note* Telephone Encounter - Brendan Adler LPN - 04/19/2024 11:30 AM EST Patient calling she had gone to [facility] for the support stockings. They are requesting a new rx with what compression for the knee high support stockings please. Can fax order to them. Did not pend order since not sure what compression wanted. Please advise [facility]12-06-2024 [facility]Mary [facility]12-06-2024 History of Present illness Narrative* Louann Bermeo, GALLO.CERTIFIED CONTROL SYSTEMS TECHNICIAN - 04/12/2024 1:39 PM EST Chief Complaint [...] Date Allergic rhinitis due to allergen 02/2018 [place] [facility] testing. Current severe episode of major depressive disorder without psychotic features without prior episode ([facility]) 09/14/2018 DNS (deviated nasal septum) Ex-smoker 01/10/2018 Started at age 18 and quit at 26. Smoked one cigar a day. MARCUS (generalized anxiety disorder) 09/14/2018 GERD (gastroesophageal reflux disease) Immunodeficiency ([facility]) IVIG Iron deficiency anemia 06/17/2018 Morbid obesity ([facility]) 06/15/2018 Nasal polyposis BOLA on CPAP Pleural [...] into both eyes four times a day rnqzdydjejr-hlonsofum-jthtrtob (TRELEGY ELLIPTA) 200-62.5-25 mcg inhalation powder Inhale [...] (FLONASE) 50 mcg/actuation nasal spray Use 1 Ingalls in each nostril two times a day. [...] ICD10: E87.6 - BASIC METABOLIC PANEL 4. 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 - ICD9: V58.69, ICD10: Z79.899 - BASIC METABOLIC PANEL 5. Morbid obesity (HCC) - ICD9: 278.01, ICD10: E66.01 - Stable 6. Dependence on continuous supplemental oxygen - ICD9: V46.2, ICD10: Z99.81 - Continue O2 5L n/c Louann Bermeo APRN.CERTIFIED CONTROL SYSTEMS TECHNICIAN documented in this encounterOhiohealth Marion [facility] Hospital11-27-2024 Note. MICRO - Microbiology PROCEDURE: Blood [...] Locations *1: This test was performed at: [address]11-27-2024 Note. MICRO - Microbiology PROCEDURE: Blood [...] Locations *1: This test was performed at: [address]11-25-2024 Hospital Discharge instructions Patient Education 04/01/2024 09:52:34 Heart Failure, Diagnosis, Pmxw-si-Ouys Heart Failure, Diagnosis Heart failure means that [...] 01/31/2009 Document Revised: 07/12/2019 Document Reviewed: 07/12/2019 [employer] Patient Education 2020 [employer]. 04/01/2024 09:52:25 Acute Respiratory Failure, Adult Acute [...] the nose, a face mask, or a uw. A device such as a continuous positive [...] breathing. Follow these instructions at home: Take fxvl-jfs-lxvfhss and prescription medicines only as told by [...] 04/29/2014 Document Revised: 04/06/2018 Document Reviewed: 11/09/2016 [employer] Patient Education 2020 [employer]. 04/01/2024 09:51:41 Fluid Restriction Fluid Restriction With [...] 02/19/2008 Document Revised: 08/15/2019 Document Reviewed: 12/27/2017 [employer] Patient Education 2020 [employer] Follow Up Care 03/29/2024 15:05:48 With:ISRA QUAN MD Address: [address] [place] [address]- When:1-2 days Comments:Please call the office to schedule a hospital follow-up appointment. [facility] 11-25-2024 Note Discharge Instructions Thank you for [...] ISRA QUAN MD When:Within 1-2 days Where:[address] [place] [address]- The Following Activity and Diet Have Been [...] Every day Duration: 30 Days Pickup at [facility] #86313 Take today at home New cefdinir (cefdinir 300 mg oral capsule) 1 cap by mouth Every 12 hours Duration: 3 Days Pickup at [facility] #61288 Take this evening New predniSONE (predniSONE 10 mg oral tablet) See instructions Take 4 tabs daily for 3 days then take 3 tabs daily for 3 days then take 2 tabs daily for 3 days then take 1 tab daily for 3 days. Pickup at [facility] #70338 08:00AM, follow directions on prescription Changed famotidine [...] a day 08:00AM Pharmacy Information [id number]: [address] [place], [place] [id number] [phone] What How Much When Comments Stop Taking [...] or rash (including diaper rash in an infant taking liquid cefdinir. This is not a complete list of side effects and others may occur. Call your doctor for medical advice about side effects. You may report side effects to FDA at 8-933-EBS-3100. What other drugs will affect cefdinir? Tell your doctor about all your other medicines, especially: probenecid; or vitamin or mineral supplements that contain iron. This list is not complete. Other drugs may affect cefdinir, including prescription and fkfl-sdr-xmwhfcl medicines, vitamins, and herbal products. Not all [...] to ensure that the information provided by [employer]. ('[employer]') is accurate, up-to-date, and complete, but no guarantee is made to that effect. Drug information contained herein may be time sensitive. [employer] information has been compiled for use by healthcare practitioners and consumers in the [place] and therefore [employer] does not warrant that uses outside of the [place] are appropriate, unless specifically indicated otherwise. [employer] drug information does not endorse drugs, diagnose patients or recommend therapy. [employer] drug information isan informational resource designed to [...] effective or appropriate for any given patient. [employer] does not assume any responsibility for any aspect of healthcare administered with the aid of information [employer] provides. The information contained herein is not intended to cover all possible uses, directions, precautions, warnings, drug interactions, allergic reactions, or adverse effects. If you have questions about the drugs you are taking, check with your doctor, nurse or pharmacist. Copyright 1205-2119 [employer]. Version: 9.01. Revision Date: 12/09/2022. prednisone (PRED [...] may report side effects to FDA at 1-648-HMD-8058. What other drugs will affect prednisone? Sometimes [...] may affect prednisone. This includes prescription and wocv-dob-otuxtpi medicines, vitamins, and herbal products. Not all [...] to ensure that the information provided by [employer]') is accurate, up-to-date, and complete, but no guarantee is made to that effect. Drug information contained herein may be time sensitive. [employer] information has been compiled for use by healthcare practitioners and consumers in the [place] and therefore [employer] does not warrant that uses outside of the [place] are appropriate, unless specifically indicated otherwise. [employer] drug information does not endorse drugs, diagnose patients or recommend therapy. [employer] drug information isan informational resource designed to [...] effective or appropriate for any given patient. [employer] does not assume any responsibility for any aspect of healthcare administered with the aid of information [employer] provides. The information contained herein is not intended to cover all possible uses, directions, precautions, warnings, drug interactions, allergic reactions, or adverse effects. If you have questions about the drugs you are taking, check with your doctor, nurse or pharmacist. Copyright 8613-7751 [employer]. Version: 10.. Revision Date: 08/02/2018. bumetanide (oral/injection) [...] may report side effects to FDA at 6-879-FZG-3076. What other drugs will affect bumetanide? Bumetanide [...] drugs may affect bumetanide, including prescription and jtvt-rwk-nuqmjwn medicines, vitamins, and herbal products. Not all [...] to ensure that the information provided by [employer]') is accurate, up-to-date, and complete, but no guarantee is made to that effect. Drug information contained herein may be time sensitive. [employer] information has been compiled for use by healthcare practitioners and consumers in the [place] and therefore [employer] does not warrant that uses outside of the [place] are appropriate, unless specifically indicated otherwise. [employer] drug information does not endorse drugs, diagnose patients or recommend therapy. [employer] drug information isan informational resource designed to [...] effective or appropriate for any given patient. [facility] does not assume any responsibility for any aspect of healthcare administered with the aid of information [facility] provides. The information contained herein is not intended to cover all possible uses, directions, precautions, warnings, drug interactions, allergic reactions, or adverse effects. If you have questions about the drugs you are taking, check with your doctor, nurse or pharmacist. Copyright 4870-6008 [employer]. Version: 9.01. Revision Date: 12/08/2022. Education Materials [...] 01/31/2009 Document Revised: 07/12/2019 Document Reviewed: 07/12/2019 [employer] Patient Education 2020 [employer] Acute Respiratory Failure, Adult Acute respiratory [...] breathing. Follow these instructions at home: Take fqtk-vep-eqafxlx and prescription medicines only as told by [...] 04/29/2014 Document Revised: 04/06/2018 Document Reviewed: 11/09/2016 [employer] Patient Education 2020 [employer] Fluid Restriction With some health conditions, [...] 2 cups (480 (more content not included)... [facility] [id number] Discharge summary Date of Service 04/01/24 Discharge [...] Anxiety and depression GERD Common variable immunodeficiency [facility] Hospital Course 34 yof hx morbid obesity, [...] tablet)1 tab(s) by mouth once a day. vkuszulwcja41 Milligram by mouth once a day. ynoflfttws990 Milligram by mouth once a day. Discontinued ttkhrfa89 Milligram by mouth once a day. fluticasone-salmeterol [...] ISRA QUAN MD When:Within 1-2 days Where:[address] [place] [address]- Follow Up Appointments No qualifying data available. [...] ANSELMO MADISON MD on 04/01/2024 04:57 PM [facility] [id number] Note Date of Service 03/31/24 Subjective Today [...] ANSELMO MADISON MD on 03/31/2024 04:36 PM [facility] [id number] Note. MICRO - Microbiology PROCEDURE: Urine Culture [...] Locations *1: This test was performed at: [facility], [address] [place] [address], [facility] , [facility]11-23-2024 Evaluation + Plan noteExtracted from: Title:Clinical Document Author:TOI LIN MD Date:03/30/24 [facility] Hospital[facility] History and Physical Date of Admission: patient is being admitted on March 29, 2024 Chief complaint: shortness of breath History of present illness: History is taken from talking with the patient as well as reviewing medical records. Patient was accepted as a transfer from [facility] emergency room by my colleague. Patient has [...] Vitals Signs(Last 24 hrs)__Last Charted Minimum Maximum XQB924(MAR 29:07)127(MAR 29:07)127(MAR 29:) DBP71(MAR 29:)71(MAR 29:)71(MAR 29:) Physical examination: HEENT: No Pallor, No Icterus Cardiac: RRR, No murmur Lungs: very diminished breath sounds Abdomen: Soft Non tender Musculoskeletal: No joint pains or swelling Extremities: No edema, good pulses Neurological: Alert, no deficits Skin: No rash, no nodules Labs: as mentioned in the HPI. Assessment and plan: Patient was accepted as a transfer from [facility] emergency department by my colleague on March [...] years. Prophylaxis Lovenox Code status full code [facility] 11-23-2024 Note Date of Service 03/30/24 Subjective [...] ANSELMO MADISON MD on 2024 04:16 PM [facility] [id number] Note. MICRO - Microbiology PROCEDURE: Streptococcus Pneumoniae [...] Locations *1: This test was performed at: [address], [facility] , [facility]11-23-2024 Note. MICRO - Microbiology PROCEDURE: Legionella Urine [...] Locations *1: This test was performed at: [address], [facility] , [facility] [id number] Respiratory therapy Hospital Progress note Respiratory Therapy Evaluation Entered On: 2024 1:34 EST Performed On: 2024 1:33 EST by Trinh Bazan PRIMARY MONTESSORI TEACHER Respiratory Therapy Evaluation Chest X-Ray : Infiltrates [...] Alert, oriented and cooperative Beni Derickswati Rivas PRIMARY MONTESSORI TEACHER - 2024 1:33 EST Digitally Signed by Trinh Bazan PRIMARY MONTESSORI TEACHER on 2024 02:42 AM [facility] [id number] HCoV 229E RNA GUNJAN+non-probe Ql (Nph)Not Detected *NA* (03/30/24 1:22 AM)AH Auto Viro/Sero [id number] History and physical note [facility] Medicine Hospitalist History and Physical Date of Admission: patient is being admitted on March 29, 2024 Chief complaint: shortness of breath History of present illness: History is taken from talking with the patient as well as reviewing medical records. Patient was accepted as a transfer from [facility] emergency room by my colleague. Patient has [...] Vitals Signs(Last 24 hrs)__Last Charted Minimum Maximum IXE155(MAR 29:07)127(MAR 29:07)127(MAR 29:) DBP71(MAR 29:)71(MAR 29:07)71(MAR 29:) Physical examination: HEENT: No Pallor, No Icterus Cardiac: RRR, No murmur Lungs: very diminished breath sounds Abdomen: Soft Non tender Musculoskeletal: No joint pains or swelling Extremities: No edema, good pulses Neurological: Alert, no deficits Skin: No rash, no nodules Labs: as mentioned in the HPI. Assessment and plan: Patient was accepted as a transfer from [facility] emergency department by my colleague on March [...] TOI LIN MD on 2024 12:27 AM [facility] [id number] Evaluation + Plan note Diagnostic Tests Pending * Urine Culture 03/29/24 [facility] 11-22-2024 Note ORIGINAL EXAMINATION: ONE XRAY VIEW [...] Date: 03/29/2024 11:18:28 AM [facility] Sinus tachycardia Electronic Signature: SANDEE HUDSON DO 03/29/2024 10:36:[address] [place] [address] 10-03-2024 Telephone encounter Note* Telephone Encounter - Louann Bermeo APRN.CERTIFIED CONTROL SYSTEMS TECHNICIAN - 02/08/2024 8:11 AM EDT Noted. [facility]10-03-2024 Miscellaneous Notes* Telephone Encounter - Louann Bermeo APRN.CNP - 02/08/2024 8:11 AM EDT Noted. * Telephone Encounter - Brendan Adler LPN - 02/07/2024 2:52 PM EDT Patient call transferred from [facility], patient asking to schedule appt with Louann Bermeo [facility]. She hasincreased swelling in her right lower [...] evaluation for possible DVT or cellulitis, aware [facility] is out of office today. documented in this encounterOhiohealth [facility] Hospital10-02-2024 Telephone encounter Note * Telephone Encounter - Brendan Adler LPN - 02/07/2024 2:52 PM EDT Patient call transferred from [facility], patient asking to schedule appt with Louann Bermeo [facility]. She hasincreased swelling in her right lower [...] evaluation for possible DVT or cellulitis, aware [facility] is out of office today. [facility]05-14-2024 History of Present illness Narrative* Linette Villalpando PA-C - 09/19/2023 12:09 PM EDT This note was created using Partigiriter. 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 Smoked one cigar a day. MARCUS (generalized anxiety disorder) 09/14/2018 GERD (gastroesophageal reflux disease) Immunodeficiency ([facility]) IVIG Iron deficiency anemia 06/17/2018 Morbid obesity ([facility]) 06/15/2018 Nasal polyposis BOLA on CPAP Pleural effusion 06/15/2018 Severe persistent asthma with acute exacerbation 02/12/2018 Vitiligo Current Outpatient Medications Medication Sig Dispense Refill prednisoLONE acetate (PRED FORTE) 1 % ophthalmic suspension instill 1 drop into both eyes four times a day fvbddsiwcye-rachluark-bxtjpesf (TRELEGY ELLIPTA) 200-62.5-25 mcg inhalation powder Inhale [...] (FLONASE) 50 mcg/actuation nasal spray Use 1 Ingalls in each nostril two times a day. [...] worsen. Linette Villalpando PA-C documented in this encounterOhiohealth [facility] Hospital04-21-2024 History of Present illness Narrative* Liberty Weir APRN.CERTIFIED CONTROL SYSTEMS TECHNICIAN - 08/27/2023 12:17 PM EDT This note [...] history is provided by the patient. No packager was used. Conjunctivitis The current episode started [...] Date Allergic rhinitis due to allergen 02/2018 [facility]. Current severe episode of major depressive disorder without psychotic features without prior episode ([facility]) 09/14/2018 DNS (deviated nasal septum) Ex-smoker 01/10/2018 Started at age 18 and quit at 26. Smoked one cigar a day. MARCUS (generalized anxiety disorder) 09/14/2018 GERD (gastroesophageal reflux disease) Immunodeficiency ([facility]) IVIG Iron deficiency anemia 06/17/2018 Morbid obesity ([facility]) 06/15/2018 Nasal polyposis BOLA on CPAP Pleural effusion 06/15/2018 Severe persistent asthma with acute exacerbation 02/12/2018 Vitiligo PAST SURGICAL HISTORY Procedure Laterality Date SECTION HX 2011 PAST SURGICAL HISTORY OF 2016, 2018 B knee arthroscopic surgery SINUS SURGERY HX 2019 TONSILLECTOMY HX 2015 ALLERGIES Seasonal Allergies MEDICATIONS vvndtbtxoss-naaqwhmgs-lyzehyab (TRELEGY ELLIPTA) 200-62.5-25 mcg inhalation powder Inhale [...] (FLONASE) 50 mcg/actuation nasal spray Use 1 Ingalls in each nostril two times a day. [...] concerns or if symptoms persist. Liberty Weir APRN.CERTIFIED CONTROL SYSTEMS TECHNICIAN documented in this encounterOhiohealth Marion [facility] Hospital03-22-2024 History of Present illness Narrative* Bere Holcomb MD - 07/28/2023 1:30 PM EDT Images from the original note were not included. . 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 Smoked one cigar a day. MARCUS (generalized anxiety disorder) 09/14/2018 GERD (gastroesophageal reflux disease) Immunodeficiency ([facility]) IVIG Iron deficiency anemia 06/17/2018 Morbid obesity ([facility]) 06/15/2018 Nasal polyposis BOLA on CPAP Pleural [...] (FLONASE) 50 mcg/actuation nasal spray Use 1 Ingalls in each nostril two times a day. [...] mcg/actuation inhaler Inhale 2 Puffs as instructed. ruvrjvscfkn-lssxcmefz-jaybnlum (TRELEGY ELLIPTA) 200-62.5-25 mcg inhalation powder Inhale [...] immunology if needed Bere Holcomb MD Respiratory [place] documented in this encounterOhiohealth [facility] Hospital03-04-2024 Miscellaneous Notes* Telephone Encounter - Aurea Powell RN - 07/10/2023 12:57 PM EST Estephania pharmacist @ [facility] calling to let provider know that retail [...] Fasenra was refilled by Louann Bermeo to [facility] on 06/30/23 Yanira Rossi Ma * Telephone Encounter - Louann Bermeo APRN.CERTIFIED CONTROL SYSTEMS TECHNICIAN - 07/06/2023 3:01 PM EST Please find out where patient has been getting medication filled. * Telephone Encounter - Tea Noland LPN - 07/06/2023 2:35 PM EST Pharmacy comment: This medication is not available for us to order at retail level. must be sent toa specialty pharmacy. Tea Noland LPN documented in this encounterOhiohealth Marion General Hospital02-23-2024 History of Present illness Narrative* Louann Bermeo APRN.CERTIFIED CONTROL SYSTEMS TECHNICIAN - 06/30/2023 10:22 AM EST Chief Complaint Patient presents with: [facility] HPI Torrie Martinez is a 33 year old female who presents here today for Above Complaints.. [facility]. Patient is oxygen dependent due to severe asthma. Currently on 5l n/c with activity and sleep, uses cpap. Past medical history, appointments, medications, allergies reviewed. Previous Medical History PAST MEDICAL HISTORY Diagnosis Date Allergic rhinitis due to allergen 02/2018 [facility]. Current severe episode of major [...] (FLONASE) 50 mcg/actuation nasal spray Use 1 Ingalls in each nostril twice daily. Rinse mouth [...] No history of dysuria, frequency or incontinence WWE WRESTLER: Negative for abnormal vaginal bleeding, abnormal vaginal [...] TABLET Louann Bermeo APRN.CNP documented in this encounterOhiohealth Marion [facility] Hospital11-25-2023 Miscellaneous Notes* Telephone Encounter - Alyson [...] chart. Rx for flagyl sent to pharmacy. Torrie was advised that all sexual partners should be tested/treated. Alyson Conti APRN.LINDA documented in this encounterOhiohealth Marion General Hospital11-24-2023 Instructions* Patient Instructions* Kary Garnett APRN.CNP - 03/31/2023 2:06 PM EST Will send urine for culture and call if treatment needed Vaginal culture for gonorrhea, chlamydia, BV, yeast and trichomonas sent, will call with results and treatment needed documented in this encounterOhiohealth Marion General Hospital11-24-2023 History of Present illness Narrative* Kary Garnett APRN.CNP - 03/31/2023 1:47 PM EST Images from the original note were not included. Subjective The history is provided by the patient. No packager was used. TANNA Martinez is a 33 [...] Date Allergic rhinitis due to allergen 02/2018 [facility]. Current severe episode of major [...] have confirmed and edited as necessary, the [facility] Review of Systems Constitutional: Negative for chills and fever. Gastrointestinal: Negative for abdominal pain, diarrhea, nausea and vomiting. Genitourinary: Positive for dysuria. Negative for flank pain, frequency, hematuria and urgency. Vaginal discharge Vulvar irritation/burning Objective Physical Exam Vitals and nursing note reviewed. Exam conducted with a freelance writer present. Constitutional: Appearance: Normal appearance. Abdominal: General: [...] indetail warranting prompt ER evaluation. Kary Garnett APRN.CERTIFIED CONTROL SYSTEMS TECHNICIAN documented in this encounterOhiohealth Marion [facility] Hospital10-03-2022 History of Present illness Narrative* Niya [...] copy of AVS. documented in this encounterBON Viigo Phone: [phone]) 272-747108-31-2022 History of Present illness Narrative* Niya Frausto [...] copy of AVS. documented in this encounterBON Viigo Phone: [phone]) 585-846508-10-2022 Hospital Discharge instructions Patient Education 12/15/2021 10:18:38 [...] or grass. Air pollutants such as household corporate security officer, wood smoke, smog, or chemical odors. Cold [...] whistling when you breathe. Excessive nighttime or population health manager coughing. Frequent or severe coughing with a [...] hardware store, a double-layered or microfilter vacuum septic cleaner bag, or a vacuum septic cleaner with a HEPA filter. Replace carpet [...] and water are not available, use hand imaging tech. Do not allow anyone to smoke in your home. General instructions Take lcla-xvv-cdqlwkg and prescription medicines only as told by [...] www.cdc.gov/asthma/faqs.htm For air quality information, turn to AirDecisionView at https://airnow.gov/ Contact a health care provider [...] 04/24/2006 Document Revised: 06/27/2019 Document Reviewed: 05/29/2017 [employer] Patient Education 2020 [employer]. Follow Up Care 12/12/2021 16:08:46 With:DR. CRISPIN BARRY Address: [address] [place], [place] [address]- When:12/28/2021 14:30:00 Comments:FOLLOW UP APPOINTMENT [facility] 08-10-2022 Discharge summary Date of Service 12/15/2021 [...] on 4 L home O2 presented to [place] [facility] with complaints of increased shortness of [...] required bipap and [facility] due to lack of [...] (DuoNeb)3 Milliliter by inhalation every 4 hours. nfbuwuh77 Milligram by mouth once a day. buPROPion [...] (SOLU-Medrol)60 Milligram IV Push every 8 hours. aqgonlltgeh14 Milligram by mouth once a day. dkbetpkxph072 Milligram by mouth once a day. umeclidinium-vilanterol (Anoro Ellipta 62.5 mcg-25 mcg/inh inhalation powder)1 puff(s) by inhalation once a day. Follow Up Follow Up with DR. CRISPIN BARRY When 12/28/2021 02:30 PM EDT Why: FOLLOW UP APPOINTMENT Where: [address] [place] [address]- Follow Up Appointments No qualifying data [...] by SERGIO COLEMAN on 12/15/2021 12:02 PM [facility] [id number] Pulmonary Progress note Date of Service December 15, 2021 Chief Complaint This is a 31-year-old female with a history of asthma, chronic hypoxemic/hypercapnic respiratory failure on 4-5 L of home oxygen who presented to [facility] with shortness of breath. The patient complained that she has a weakened immune system and gets injections monthly (?CVID) of IVIG. She usually lives in [facility] and is visiting [place]. The patient recently underwent a sleep study and is being set up with some form of positive pressure device for nighttime. The patient reports being in her usual state of health prior to admission. The patient was wheezing and was coughing. Paramedics initially noted hypoxemia upon initial evaluation to 70%. She was then transferred to [facility] where she was placed on noninvasive positive pressure ventilation with this improvement. She was then transferred to [facility]. Subjective Patient is presently laying in bed. [...] She apparently had a PSG performed around [facility] with recommendations to undergo a pressure titration which I have encouraged her to schedule. Digitally Signed by AMELIA FORD on 12/15/2021 12:00 PM [facility] [id number] Note Discharge Instructions Thank you for allowing [facility] to assist you with your healthcare needs. The following is importantdischarge information regarding your hospital visit. Your Care Team ISRA QUAN MD Your Diagnosis Asthma exacerbation Acute hypoxemic respiratory failure Morbid obesity What to do next Follow Up Appointments Follow Up with DR. CRISPIN BARRY When 12/28/2021 02:30 PM EDT Why: FOLLOW UP APPOINTMENT Where: [address] [address]- Follow Up with ISRA QUAN MD When Within 1-2 days Where: [address] [place] [address]- The Following Activity and Diet Have Been [...] may report side effects to FDA at 3-325-YEA-4794. What other drugs will affect cefdinir? Tell your doctor about all your other medicines, especially: probenecid; or vitamin or mineral supplements that contain iron. This list is not complete. Other drugs may affect cefdinir, including prescription and mztg-gts-xncwkin medicines, vitamins, and herbal products. Not all [...] to ensure that the information provided by [employer]. ('Multum') is accurate, up-to-date, and complete, but no guarantee is made to that effect. Drug information contained herein may be time sensitive. Total-trax information has been compiled for use by healthcare practitioners and consumers in the [place] and therefore Total[employer] does not warrant that uses outside of the [place] are appropriate, unless specifically indicated otherwise. DotGTs drug information does not endorse drugs, diagnose patients or recommend therapy. DotGTs drug information isan informational resource designed to [...] effective or appropriate for any given patient. [employer] does not assume any responsibility for any aspect of healthcare administered with the aid of information Total-trax provides. The information contained herein is not intended to cover all possible uses, directions, precautions, warnings, drug interactions, allergic reactions, or adverse effects. If you have questions about the drugs you are taking, check with your doctor, nurse or pharmacist. Copyright 2430-6731 [employer]. Version: 7.03. Revision Date: 05/11/2020. prednisone (PRED [...] may report side effects to FDA at 8-353-JYC-5351. What other drugs will affect prednisone? Sometimes [...] may affect prednisone. This includes prescription and aphq-jzf-ewnfota medicines, vitamins, and herbal products. Not all [...] to ensure that the information provided by [employer]. ('Multum') is accurate, up-to-date, and complete, but no guarantee is made to that effect. Drug information contained herein may be time sensitive. Total-[employer]x information has been compiled for use by healthcare practitioners and consumers in the [place] and therefore Total[employer] does not warrant that uses outside of the [place] are appropriate, unless specifically indicated otherwise. DotGTs drug information does not endorse drugs, diagnose patients or recommend therapy. DotGTs drug information isan informational resource designed to [...] effective or appropriate for any given patient. [employer] does not assume any responsibility for any aspect of healthcare administered with the aid of information Total-[employer]x provides. The information contained herein is not intended to cover all possible uses, directions, precautions, warnings, drug interactions, allergic reactions, or adverse effects. If you have questions about the drugs you are taking, check with your doctor, nurse or pharmacist. Copyright 6533-9576 [employer]. Version: 10.. Revision Date: 08/02/2018. Education Materials [...] or grass. Air pollutants such as household corporate security officer, wood smoke, smog, or chemical odors. Cold [...] whistling when you breathe. Excessive nighttime or population health manager coughing. Frequent or severe coughing with a [...] hardware store, a double-layered or microfilter vacuum septic cleaner bag, or a vacuum septic cleaner with a HEPA filter. Replace carpet [...] and water are not available, use hand imaging tech. Do not allow anyone to smoke in your home. General instructions Take dtxv-bto-vgdwgvt and prescription medicines only as told by [...] www.cdc.gov/asthma/faqs.htm For air quality information, turn to AirDecisionView at https://airnow.gov/ Contact a health care provider [...] Document Reviewed: 05/29/2017 Elsevier Patient Education 2020 [employer]. Additional Information VACCINATE! IT SAVES LIVES! Members of the community who have not yet received the COVID-19 vaccine and would like to receive it can visit one of [facility] vaccine clinics. There are many vaccine clinic locations within the [facility]. For locations and available times, please visit https://gettheshot.coronavirus.[place].gov/. It is important to note that some COVID mobile vaccine clinics are held outdoors and may be canceled in rainy or stormy conditions. To learn more about pediatric vaccinations (ages 5-11), we invite you to visit the [facility] webpage. https://www.akwikifolios.org/pages/1764-Ohlqg-Fykflgembkg-Ycpsihzfry-Sjxkl-Iqp stions.htmlTo learn more about the COVID-19 vaccine, we invite you to visit the 99times.cn website for a list of frequently asked questions. https://[email or web address]/assets/Qxkxgcdk-aat-Nqmprjbp/kjkkw-Dyzeuex-Hozdyawncx _Asked-Questions.pdf [email or web address] Patient Portal Access Instructions: Stay connected with your healthcare team and access your personal medical information anytime with the [email or web address] Patient Portal.If you would like a full copy of your medical records, please contact the [facility] Medical Records Department, Monday through Monday between 8a.m. and 4:30p.m. Please follow the directions below to access the portal: 1.Access the email account you provided upon registration to the [facility].2.Look for an invitation email from [facility].3.Open the email and access the invitation link: Accept Invitation to [email or web address].Fill in the required pittman to create your account. Sign into www.[email or web address] with your username and password that you [...] you will allow to register on the [facility] Patient Portal for access to your information. You can also access the [facility] Patient Portal on the Impressto destini. Simply click on Health Records under VYou and then click on the [email or web address].cn logo. HOW TO SAFELY DISPOSE OF PRESCRIPTION [...] Call your local pharmacy or go to http://Adesso Solutions.Roc2Loc/0F5Ij8c to find one close to you.3.Make use of household items: Use cat litter or old coffee grounds to dispose medications if other options arenot available. Mix your drugs with these household products, seal them in an airtight container andthrow it into the garbage. Call [facility]: [phone] to be sure your drugs can be [...] aware that I should contact my doctor. 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 Signature: Date/Time: Relationship to Patient: Witness Name/Signature: Date/Time: [facility] [id number] Respiratory therapy Hospital Progress note Respiratory Therapy [...] SONYA Klein RRT on 12/15/2021 09:18 AM [facility] [id number] Note Date of Service 12/14/2021 Chief Complaint [...] mL Inhal Jocelyn UD 3 mL, Inhalation, c0fZA-XT aspirin 81 mg Chewable 81 mg 1 [...] by SERGIO COLEMAN on 12/14/2021 12:58 PM [facility] [id number] Pulmonary Progress note Date of Service 12/14/21 [...] mL Inhal Jocelyn UD 3 mL, Inhalation, a0uOS-SU aspirin 81 mg Chewable 81 mg 1 [...] She apparently had a PSG performed around [facility] with recommendations to undergo a pressure titration which I have encouraged her to schedule. Time Spent 15 minutes Digitally Signed by ROSE HERRERA MD on 12/14/2021 10:14 AM [facility] [id number] Note. MICRO - Microbiology PROCEDURE: Streptococcus Pneumoniae [...] Locations *1: This test was performed at: [address], [address] [place], [place] [id number] Note. MICRO - Microbiology PROCEDURE: Legionella Urine [...] Locations *1: This test was performed at: [address], [address] [place], [place] [address]-13-2021 Note Date of Service 12/13/2021 Chief Complaint [...] mL Inhal Jocelyn UD 3 mL, Inhalation, k0qUK-QU aspirin 81 mg Chewable 81 mg 1 [...] by SERGIO COLEMAN on 12/13/2021 12:56 PM [facility] [id number] Note Date of Service 12/13/2021 Chief Complaint [...] mL Inhal Jocelyn UD 3 mL, Inhalation, w1qUQ-ZS aspirin 81 mg Chewable 81 mg 1 [...] by SERGIO COLEMAN on 12/13/2021 12:56 PM [facility] [id number] Pulmonary Consult note Date of Service 12/13/2021 Reason for Consultation Asthma Exacerbation Referring Physician Dr. Morales History of Present Illness This is a 31-year-old female with a history of asthma, chronic hypoxemic/hypercapnic respiratory failure on 4-5 L of home oxygen who is presenting to [facility] with shortness of breath. The patient reports that she has a weakened immune system and gets injections monthly (?CVID) of IVIG. She usually lives in [facility] and is visiting [place]. The patient recently underwent a sleep study [...] to 70%. She was then transferred to [facility] where she was placed on noninvasive positive pressure ventilation with this improvement. She was then transferred to [facility]. Overnight, the patient feels improvement in her [...] Inhalation, q2hRT, PRN DuoNeb, 3 mL, Inhalation, [id number] famotidine, 20 mg= 1 tab(s), Oral, BID guaiFENesin, 200 mg= 10 mL, Oral, q4h, PRN Lovenox, 40 mg= 0.4 mL, Subcutaneous, qDay melatonin, 3 mg= 1 tab(s), Oral, qHS, PRN methylPREDNISolone sodium succinate 40 mg preservative-free injection, 40 mg= 1 mL, IV Push, q8h Miralax Powder Packet, 17 gram(s)= 15 mL, Oral, BID, PRN montelukast, 10 mg= 1 tab(s), Oral, qDay [place] 325- 5 mg oral tablet, 1 tab(s), [...] Domestic Concerns: None. Living situation: Home/Independent. Primary Senior Sustainability Advisor: self. Safe place to go: Yes. Lives [...] CHIRAG PEARSON MD on 12/13/2021 12:35 PM [facility] [id number] Note. MICRO - Microbiology PROCEDURE: Streptococcus Pneumoniae [...] Locations *1: This test was performed at: [address], [address] [place], [place] [address]64312-13-2021 Note. MICRO - Microbiology PROCEDURE: Legionella Urine [...] Locations *1: This test was performed at: [address], [address] [place], [place] [address]-12-2021 History and physical note Chief Complaint SOB History of Present Illness Patient is a 31-year-old female with history of severe asthma who is chronically on 4 L home O2 presented to the ED with complaints of increased shortness of breath and congestion. Per paramedics oxygen upon arrival was 78%. She was admitted to [facility] with severe asthma exacerbation. While hospitalized she was started on bilevel NIPPV and has had persistent hypoxemia and hypercapnea. Given her risk factors and lack of improvement she was transitioned to [facility] for pulmonary medicine evaluation. She is not [...] EDT, Dose = 3 mL, Soln, Inhalation, [id number], 12/12/21 16:34:00 EDT aspirin, Start: 12/12/21 19:11:00 [...] Domestic Concerns: None. Living situation: Home/Independent. Primary Senior Sustainability Advisor: self. Safe place to go: Yes. Lives [...] MORALES MD FACP on 12/12/2021 07:18 PM [facility] [id number] Respiratory therapy Hospital Progress note Respiratory Therapy Evaluation Entered On: 12/12/2021 16:43 EDT Performed On: 12/12/2021 16:42 EDT by Zach Sykes PRIMARY MONTESSORI TEACHER Respiratory Therapy Evaluation Pulmonary Status : Severe [...] times a day at home Zach Sykes PRIMARY MONTESSORI TEACHER - 12/12/2021 16:42 EDT Digitally Signed by Zach Sykes PRIMARY MONTESSORI TEACHER on 12/12/2021 04:42 PM [facility] [id number] Evaluation + Plan noteExtracted from: Title:History and Physical Author:DEMETRIO MORAELS MD FACP Date:12/12/21 1. Asthma exacerbation 2. [...] EDT, Dose = 3 mL, Soln, Inhalation, [id number], 12/12/21 16:34:00 EDT aspirin, Start: 12/12/21 19:11:00 [...] maintain O2 Sat Venous Blood Gas (AH) [facility] 08-07-2022 Note Date of Service 12/12/2021 Chief Complaint Dyspnea Subjective 31-year-old female with past medical history significant for asthma, acute on chronic respiratory failure requiring 4 L of O2 via nasal cannula, CVID. Patient presented to [facility] emergency department with a 1 day history [...] not inany acute distress. Discussed case with reinforcer at [facility] who recommended stepdownat [facility]. Acute on chronic respiratory failure patient uses [...] by VANESSA CARLISLE on 12/12/2021 01:[address] [facility]08-07-2022 Note Got paged around 6:35 AM on December 12, 2021 that patient's blood gas is getting worse on BiPAP. Requested respiratory therapist to adjust BiPAP settings and repeat ABG in 2 hours. Also informed collaborating nurse practitioner via cortex to evaluate the patient for possible transfer to ICU at [facility]. Digitally Signed by OLGA URBANO MD on 12/12/2021 06:[address] [facility]08-07-2022 Note ORIGINAL EXAMINATION: ONE XRAY VIEW OF [...] Sign Date: 12/12/2021 5:53:12 AM Ordering Provider: [facility]08-07-2022 Note ORIGINAL EXAMINATION: ONE XRAY VIEW OF [...] Sign Date: 12/12/2021 5:53:12 AM Ordering Provider: [facility]08-07-2022 Nurse Progress note pt off monitor ,nursing checked pt. pt was standing in between the bathroom and bed and oxygen was on the floor. pt was confused. when asked was alert and oriented, but is tearful and shaky. pt states i dont know whats going on and is upset. pt assisted back to bed iv was out [facility] to [facility]. earlier in the evening the patient was getting up to the bedside commode. it was placed beside the bed since the pt was given lactulose and pt got up without difficulty. nik pope and was wnl. after pt back in bed pt has jerking movements with her arms and upper body. provider called orders received. pt placed on a camera and bed alarm on. Digitally Signed by PARK Mendez on 12/12/2021 03:[address] [facility]08-06-2022 SARS-CoV-2 (COVID-19) RNA GUNJAN+probe Ql (Nph)Negative (12/11/21 10:18 PM)AO Auto Urine [id number] Evaluation + Plan noteExtracted from: Title:History and [...] 12/12/21 * Streptococcus Pneumoniae Urine Antig 12/12/21 [facility] 08-06-2022 Note Date of Service 12/11/2021 Chief [...] by SERGIO COLEMAN on 12/11/2021 01:32 PM [place] [address]-06-2022 Note ORIGINAL EXAMINATION: ONE XRAY VIEW OF [...] Sign Date: 12/11/2021 10:35:07 AM Ordering Provider: [facility]08-06-2022 Note ORIGINAL EXAMINATION: ONE XRAY VIEW OF [...] Sign Date: 12/11/2021 10:35:07 AM Ordering Provider: [facility]07-27-2022 History of Present illness Narrative* Niya Frausto RN - 12/01/2021 10:30 AM EDT Patient did not show up for her 0830 appointment today. I called patient and left message to call us back to reschedule. [facility] Phone: 1(210) [phone] History of Present illness Narrative* Niya Frausto [...] Declines copy of AVS. documented [facility] this [facility] Phone: [phone]) [phone] History of Present illness Narrative* Tatianna Arshad [...] Declines copy of AVS. documented in this [facility] Phone: [phone]) 570-496203-07-2022 History of Present illness Narrative* Kady George [...] importance of staying . documented in this [facility] Phone: [phone] Hospital Discharge instructionsAmbulatory Orders* SARS-CoV-2 RNA, Qual NAAT Time Frame: 04/12/21, Location: [facility]11-01-2021 History of Present illness Narrative* Tatianna Arshad RN - 03/08/2021 2:11 PM EDT Tolerated infusion well. Therapy plan reviewed with patient. Verbalizes understanding. Reviewed AVSwith patient, reviewed medication information, verbalizes good knowledge of current plan, and has no signs or symptoms to report at this time. Next appointment scheduled. documented in this [facility] Phone: [phone]) 869-341709-15-2021 History of Present illness Narrative* Naomy Avelar [...] appointment she verbalizes understanding. documented in this [employer] Phone: [phone]) 122-813908-18-2021 History of Present illness Narrative* Tatianna Arshad RN - 12/23/2020 8:00 AM EDT Pt called in and stated that she does not feel well today and needs to cancel her appt. Stated she will call us back to reschedule documented in this encounterIgnyta Phone: [phone]) [phone] Hospital Discharge instructions* Instructions* Dario Peña DO - 11/05/2020 Take all antibiotics as prescribed Follow-up with primary care doctor soon as possible If you notice any new worrisome symptoms please return to emergency department for evaluation. * Attachments The following attachments cannot be sent through Care Everywhere. * Trichomoniasis (Malian) * UTI (Urinary Tract Infection): Female (Malian) documented in this encounterIgnyta Phone: [phone]) 368-567806-29-2021 History of Present illness Narrative* Blossom Malcolm RN - 11/03/2020 8:00 AM EDT Tolerated infusion well. Therapy plan reviewed with patient. Verbalizes understanding. Reviewed AVSwith patient, reviewed medication information, verbalizes good knowledge of current plan, and has no signs or symptoms to report at this time. Next appointment scheduled. documented in this [employer] Phone: [phone] History of Present illness Narrative* Jermain Jaimes MD - 05/07/2019 12:19 PM EST [facility] Progress Note SUBJECTIVE: [...] Respiratory panel: Negative Respiratory culture: reduced oral ejd Influenza by PCR: Negative ASSESSMENT: Common variable [...] Palacios MD - 05/07/2019 10:52 AM EST [facility] Progress Note Subjective: Cough and dyspnea [...] Douglas MD - 05/07/2019 10:42 AM EST [facility] Progress Note Chief complaint : Chief [...] 05/06/2019 12:50 PM EST Physical Therapy Facility/Department: [address] MED SURG/TELE Initial Assessment NAME: Torrie [...] Jaimes MD - 05/06/2019 11:34 AM EST [facility] Progress Note SUBJECTIVE: [...] 9.45 (H) 05/04/2019 No results found for: [facility] Lab Results Component Value Date [...] month. Jermain Jaimes 05/06/2019 * Zach Valdez, STABLE CLEANER - NURSES ASSISTANT - 05/06/2019 10:12 AM EST Pulmonary Progress [...] Collected Lab CULTURE, RESPIRATORY 05/02/2019 11:26 PM [facility] Lab Oral Pharyngeal Jed present Smear, Respiratory 05/02/2019 11:26 PM [facility] Lab Group 5: >25 PMN's/LPF and [...] Palacios MD - 05/06/2019 9:53 AM EST [facility] Progress Note Subjective: Cough and dyspnea [...] Douglas MD - 05/06/2019 4:45 AM EST [facility] Progress Note Chief complaint : Chief [...] Jaimes MD - 05/05/2019 11:14 AM EST [facility] Progress Note SUBJECTIVE: [...] NEUTROABS 6.29 05/03/2019 No results found for: [facility] Lab Results Component Value Date [...] Results Component Value Units CBC auto differential [[id number]] (Abnormal) Collected: 05/05/19528 Updated: 05/05/19657 Specimen Source: [...] Basic Metabolic Panel w/ Reflex to MG [[id number] Collected: 05/05/19528 Updated: 05/05/19627 Specimen Source: Blood [...] Douglas MD - 05/05/2019 7:04 AM EST [facility] Progress Note Chief complaint : Chief [...] resident's documented assessment and plan * Josefina Taalvera RCP - 05/04/2019 11:17 PM EST Date: 05/04/2019 Time: 11:17 PM Patient Placed On BIPAP/CPAP/ Non-Invasive Ventilation? Yes If no must comment. Facial area red/color change? No If YES are Blister/Lesion present?No If yes must notify nursing staff BIPAP/CPAP skin barrier? Yes Skin barrier type:mepilex Comments: Josefina Talavera * Osman Mcnulty MD - 05/04/2019 2:16 PM EST [facility] PULMONARY/CRITICAL CARE PROGRESS NOTE Patient: Torrie Martinez : 1990 Encounter Date: 05/04/2019 Encounter Time: 2:16 PM Date of Admission: .05/01/2019 12:01 PM Consulting Physician: Primary Care Physician: Sandee Hoyt MD [phone] Reason for Consultation: Asthma Exacerbation, CVID Problem [...] Folate and B12: No results found for: [id number], No results found for: FOLATE Lactic Acid: [...] Jaimes MD - 05/04/2019 10:53 AM EST [facility] Progress Note SUBJECTIVE: [...] 9.04 (H) 05/02/2019 No results found for: [facility] Lab Results Component Value Date [...] Roberson MD - 05/04/2019 6:24 AM EST [facility] Progress Note Subjective: Patient stated that [...] Jaimes MD - 05/03/2019 3:36 PM EST [facility] Progress Note SUBJECTIVE: [...] 11.08 (H) 05/01/2019 No results found for: [facility] Lab Results Component Value Date [...] Mcnulty MD - 05/03/2019 2:20 PM EST [facility] PULMONARY/CRITICAL CARE PROGRESS NOTE Patient: Torrie Martinez : 1990 Encounter Date: 05/03/2019 Encounter Time: 2:20 PM Date of Admission: .05/01/2019 12:01 PM Consulting Physician: Primary Care Physician: Sandee Hoyt MD [phone] Reason for Consultation: Acute Exacerbation of Asthma [...] Folate and B12: No results found for: [id number], No results found for: FOLATE Lactic Acid: [...] Patient Name: Torrie Martinez : 1990 Room: [address] [place] [address] Evaluating OT: Edna Leger OTR/L [id number] AM-PAC Daily Activity Raw Score: Recommended Adaptive [...] ROM Additional Info: RUE 4/5 WFL good prepper and FMC/dexterity noted during ADL tasks LUE 4/5 WFL good prepper and FMC/dexterity noted during ADL tasks Hearing: [...] and development of POC/Goals Edna Leger OTR/L [id number] * Sandee Hoyt MD - 05/03/2019 7:43 AM EST [facility] Progress Note Chief complaint : Chief [...] Rahman MD - 05/03/2019 11:11 AM EST [facility] Family Medicine Attending S: 29 y.o. female [...] May 02, 2019 Disciplines Attending: Bedside Nurse, Basket Maker, Squad Leader and Nursing Unit Leadership Torrie Martinez was [...] Hoyt MD - 05/02/2019 7:30 AM EST [facility] Progress Note Chief complaint : Chief [...] Collection Time Collected Pt Temp 37.0 C Mail Distributor ID [id number] Lab [id number] Critical(s) Notified . No Critical Values EKG 12 Lead Collection Time: 05/01/19 3:08 PM Result Value Ref Range Ventricular Rate 121 BPM Atrial Rate 121 BPM P-R Interval 142 ms QRS Duration 88 ms Q-T Interval 322 ms QTc Calculation (Bazett) 457 ms P [place] 64 degrees R [place] 115 degrees T [place] 17 degrees Procalcitonin Collection Time: 05/01/19 6:01 [...] Rahman MD - 05/02/2019 11:08 AM EST [facility] Family Medicine Attending S: 29 y.o. female [...] type:mepilex Comments: Tessy Fleming documented in this [facility] Phone: [phone] History of Past illness Narrative* Problem Noted [...] Overview: Added automatically from request for surgery [id number] Nasal septal deviation 04/10/201806/17 Overview: Added automatically from request for surgery [id number] Allergic rhinitis due to allergen 02/05/2018 06/17/2018 [...] of this encounter (statuses as of 03/31/2023) [facility]02-09-2019 History of Past illness Narrative* Problem [...] Overview: Added automatically from request for surgery [id number] Nasal septal deviation 04/10/201806/17 Overview: Added automatically from request for surgery [id number] Allergic rhinitis due to allergen 02/05/2018 06/17/2018 [...] of this encounter (statuses as of 04/01/2023) [facility] History of Past illness Narrative* Problem [...] Overview: Added automatically from request for surgery [id number] Nasal septal deviation 04/10/201806/17 Overview: Added automatically from request for surgery [id number] Allergic rhinitis due to allergen 02/05/2018 06/17/2018 [...] of this encounter (statuses as of 06/30/2023) [facility]02-[facility] History of Past illness Narrative* Problem [...] Overview: Added automatically from request for surgery [id number] Nasal septal deviation 04/10/201806/17 Overview: Added automatically from request for surgery [id number] Allergic rhinitis due to allergen 02/05/2018 06/17/2018 Overview: [facility] testing. Ex-smoker 01/10/2018 06/17/2018 Overview: Started [...] of this encounter (statuses as of 07/10/2023) [place] [address]-09-2019 History of Past illness Narrative* Problem Noted [...] Overview: Added automatically from request for surgery [id number] Nasal septal deviation 04/10/201806/17 Overview: Added automatically from request for surgery [id number] Allergic rhinitis due to allergen 02/05/2018 06/17/2018 [...] of this encounter (statuses as of 07/28/2023) [facility] History of Past illness Narrative* Problem [...] Overview: Added automatically from request for surgery [id number] Nasal septal deviation 04/10/201806/17 Overview: Added automatically from request for surgery [id number] Allergic rhinitis due to allergen 02/05/2018 06/17/2018 Overview: [facility] testing. Ex-smoker 01/10/2018 06/17/2018 Overview: Started [...] of this encounter (statuses as of 08/27/2023) [facility] Author [facility] Note Date/Time February 20, 2025 1 :41pm [facility] Medical Records Department [address] [place] [address] Emergency Department Summary 02/20/25 MR#: [id number] Acct: [id number] Name: TORRIE MARTINEZ Rep #:[id number] : 1990 34 From: [facility] PCP: Louann Bermeo, [facility] Status:DEP ER Location: ED HPI History of [...] Recent immobilization, Recent surgery or Recent travel [facility] Medical History Pneumonia COPD (chronic obstructive pulmonary [...] (Auto) 45.2 L Lymph % (Auto) 40.9 [place] % (Auto) 9.6 Eos % (Auto) 0.5 [...] There is no acute infiltrate. [facility] 02/20/25 12:05 IMPRESSION: NORMAL CHEST CTA. NO EVIDENCE OF ACUTE PULMONARY EMBOLISM. Elevation of the left hemidiaphragm with findings suggestive of atelectasis and scarring at the left lung base as well as the lingular segment of the left upper lobe. Reading Location: [facility]-IR-1 PA and lateral chest x-ray was [...] Provider, Medical] - 3-5 Days Print Language: Malian Disposition Disposition: Home, Self Care What to do if you have Problems For any increased pain, shortness of breath, bleeding, nausea or vomiting, chestpain, or any unexpected problems, contact your Primary Care Provider. Call [facility] ([phone]) or report to the closest Emergency Room. Call 911 if necessary. 02/20/25 5661 <Electronically signed by Neo Phelps DO> Cosigner Signature (if applicable): CC: OMAR Bermeo ~ Signed [facility] Work Phone: Evaluation note* Diagnosis BMI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 [place] [address] PCP - General Family Medicine 06/30/23 Synthetic Filament Extruder Relationship Specialty Start Date End Date Louann Bermeo, STABLE CLEANER.CERTIFIED CONTROL SYSTEMS TECHNICIAN [address] [place] [address] PCP - General Family Medicine 06/30/23 Synthetic Filament Extruder Relationship Specialty Start Date End Date Louann Bermeo, STABLE CLEANER.CERTIFIED CONTROL SYSTEMS TECHNICIAN [address] [place] [address] PCP - General Family Medicine 06/30/23 Team Status: Active Member Role Status Dates Dr. Isra Quan MD Family Provider Active Louann Bermeo NP-[place] Primary Care Provider Active Team Status: Inactive Member Role Status Dates Dr. Yayo Andrew DO Emergency Provider Active Louann Bermeo NP-C Primary Care Provider Active Synthetic Filament Extruder Relationship Specialty Start Date End Date Louann Bermeo, STABLE CLEANER.CERTIFIED CONTROL SYSTEMS TECHNICIAN [address] [place] [phone] PCP - General Family Medicine 06/30/23 Synthetic Filament Extruder Relationship Specialty Start Date End Date Louann Bermeo APRN.CERTIFIED CONTROL SYSTEMS TECHNICIAN [address] [place] [address] PCP - General Family Medicine 06/30/23 Synthetic Filament Extruder Relationship Specialty Start Date End Date Louann Bermeo APRN.CERTIFIED CONTROL SYSTEMS TECHNICIAN [address] [place] [address] PCP - General Family Medicine 06/30/23 Synthetic Filament Extruder Relationship Specialty Start Date End Date Louann Bermeo APRN.CERTIFIED CONTROL SYSTEMS TECHNICIAN [address] [place] [address] PCP - General Family Medicine 06/30/23 Synthetic Filament Extruder Relationship Specialty Start Date End Date Louann Bermeo APRN.CERTIFIED CONTROL SYSTEMS TECHNICIAN [address] [place] [address] PCP - General Family Medicine 06/30/23 Synthetic Filament Extruder Relationship Specialty Start Date End Date Louann Bermeo APRN.CERTIFIED CONTROL SYSTEMS TECHNICIAN [address] [place] [address] PCP - General Family Medicine 06/30/23 Synthetic Filament Extruder Relationship Specialty Start Date End Date Louann Bermeo APRN.CERTIFIED CONTROL SYSTEMS TECHNICIAN [address] [place] [address] PCP - General Family Medicine 06/30/23 Synthetic Filament Extruder Relationship Specialty Start Date End Date Louann Bermeo APRN.CERTIFIED CONTROL SYSTEMS TECHNICIAN [address] [place] [address] PCP - General Family Medicine 06/30/23 Synthetic Filament Extruder Relationship Specialty Start Date End Date Louann Bermeo APRN.CERTIFIED CONTROL SYSTEMS TECHNICIAN [address] [place] [address] PCP - General Family Medicine 06/30/23 Team Status: Active Member Role Status Dates Louann Bermeo [employer]-C Primary Care Provider Active Team Status: Inactive Member Role Status Dates Louann Bermeo [employer]-C Primary Care Provider Active Start: May 26, 2024 End: May 26, 2024 Dr. Onesimo Willson MD Attending Provider Active Start: May 26, 2024 End: May 26, 2024 Dr. Onesimo Willson MD Emergency Provider Active Start: May 26, 2024 End: May 26, 2024 Team Status: Active Member Role Status Dates Louann Bermeo [employer] Primary Care Provider Active Start: September 03, 2024 Dr. Neo Greenberg MD Attending Provider Active S tart: September 03, 2024 Team Status: Inactive Member Role Status Dates Louann Bermeo [employer] Primary Care Provider Active Start: September 03, [...] Active Member Role Status Dates Louann Bermeo [employer] Primary Care Provider Active Start: September 03, 2024 Dr. Randy Bailey MD Emergency Provider Active Sta rt: September 03, 2024 Dr. Jesse Lobo MD Admit Provider Active Start: September 03, 2024 Dr. Jesse Lobo MD Attending Provider Active Start: September 03, 2024 Dr. Jesse Lobo MD Other Provider Active Start: September 03, 2024 Team Status: Active Member Role Status Dates Louann Bermeo [employer] Primary Care Provider Active Start: September 04, [...] Member Role Status Dates Louann Bermeo , [employer] Primary Care Provider Active Start: September 04, [...] Active Member Role Status Dates Louann Bermeo [employer] Primary Care Provider Active Start: September 04, 2024 Dr. Genaro Sargent MD Attending Provider Active S tart: September 04, 2024 Team Status: Active Member Role Status Dates Louann Bermeo [employer] Primary Care Provider Active Start: September 05, [...] Active Member Role Status Dates Louann Bermeo [employer] Primary Care Provider Active Start: September 05, [...] Member Role Status Dates Louann Knoble , [employer] Primary Care Provider Active Start: September 06, [...] Provider Active Star t: September 06, 2024 Synthetic Filament Extruder Relationship Specialty Start Date End Date Louann Bermeo, STABLE CLEANER.CERTIFIED CONTROL SYSTEMS TECHNICIAN [address] [place] [phone] PCP - General Family Medicine 06/30/23 Synthetic Filament Extruder Relationship Specialty Start Date End Date Louann Bermeo, STABLE CLEANER.CERTIFIED CONTROL SYSTEMS TECHNICIAN [address] [place] [phone] PCP - General Family Medicine 06/30/23 Synthetic Filament Extruder Relationship Specialty Start Date End Date Louann Bermeo, STABLE CLEANER.CERTIFIED CONTROL SYSTEMS TECHNICIAN [address] [place] [phone] PCP - General Family Medicine 06/30/23 Synthetic Filament Extruder Relationship Specialty Start Date End Date Louann Bermeo, STABLE CLEANER.CERTIFIED CONTROL SYSTEMS TECHNICIAN [address] [place] [address] [phone] PCP - General Family Medicine 06/30/23 Synthetic Filament Extruder Relationship Specialty Start Date End Date Louann Bermeo, STABLE CLEANER.CERTIFIED CONTROL SYSTEMS TECHNICIAN [address] [place] [address] [phone] PCP - General Family Medicine 06/30/23 Synthetic Filament Extruder Relationship Specialty Start Date End Date Louann Bermeo, STABLE CLEANER.CERTIFIED CONTROL SYSTEMS TECHNICIAN [address] [place] [phone] PCP - General Family Medicine 06/30/23 Team Status: Active Member Role/Relationship Status Dates Louann Bermeo [employer] Primary Care Provider Active Team Status: Active Member Role/Relationship Status Dates Louann Bermeo [employer] Primary Care Provider Active Start: September 03, 2024 Dr. Neo Greenberg MD Attending Provider Active S tart: September 03, 2024 Dr. Randy Bailey MD Referring Provider Active Sta rt: September 03, 2024 Team Status: Inactive Member Role/Relationship Status Dates Louann Bermeo [employer] Primary Care Provider Active Start: September 03, [...] Member Role/Relationship Status Dates Louann Knoble , [employer] Primary Care Provider Active Start: September 04, [...] Active Member Role/Relationship Status Dates Louann Bermeo [employer] Primary Care Provider Active Start: September 04, 2024 Dr. Genaro Sargent MD Attending Provider Active S tart: September 04, 2024 Team Status: Active Member Role/Relationship Status Dates Louann Bermeo [employer] Primary Care Provider Active Start: September 05, [...] Active Member Role/Relationship Status Dates Louann Bermeo [employer] Primary Care Provider Active Start: September 05, [...] Active Member Role/Relationship Status Dates Louann Bermeo [employer] Primary Care Provider Active Start: September 06, [...] 13, 2024 Dr. Randy Bailey MD Emergency Provider Active Sta rt: November 13, 2024 End: November 13, 2024 Synthetic Filament Extruder Relationship Specialty Start Date End Date Louann Bermeo APRN.CERTIFIED CONTROL SYSTEMS TECHNICIAN [address] [place] [address] [phone] PCP - General Family Medicine 06/30/23 Synthetic Filament Extruder Relationship Specialty Start Date End Date Louann Bermeo APRN.CERTIFIED CONTROL SYSTEMS TECHNICIAN [address] [place] [address] [phone] PCP - General Family Medicine 06/30/[address] [place] [address] Parts Product Analyst Nutrition 12/17/24 Synthetic Filament Extruder Relationship Specialty Start Date End Date Louann Bermeo APRN.CERTIFIED CONTROL SYSTEMS TECHNICIAN [address] [place] [phone] PCP - General Family Medicine 06/30/[address] [place] [address] Parts Product Analyst Nutrition 12/17/24 Synthetic Filament Extruder Relationship Specialty Start Date End Date Louann Bermeo APRN.CERTIFIED CONTROL SYSTEMS TECHNICIAN [address] [place] [address] [phone] PCP - General Family Medicine 06/30/23 Shira[address] [place] [address] Parts Product Analyst Nutrition 12/17/24 Team Status: Active Member Role/Relationship Status Dates Louann Bermeo [employer] Primary care physician Active Team Status: Inactive [...] Active Member Role/Relationship Status Dates Louann Bermeo [employer] Primary care physician Active Start: February 27, 2025 Dr. Earl Vital MD Attending physician Active Start: February 27, 2025 Dr. Earl Vital MD Referring Provider Active Start: February 27, 2025 Care Team (unrecognized sect ion and content) Care Team Personnel Name: ISRA QUAN MD Member Role: Primary Care Physician Address: Address: [address] [place] [address]- Care Team Related Persons Name: SHAWN CHACON Address: [address] [place] [address] [place] Name: MELLISSA BERMUDEZ Name: FEDE MARTINEZ Address: Home [address] Care Team Personnel Name: ISRA QUAN MD Member Role: Primary Care Physician Address: Address: [address] [place] [address]- Care Team Related Persons Name: SHAWN CHACON Address: [address] [place] [address] [place] Name: MELLISSA BERMUDEZ Name: FEDE MARTINEZ Address: Home [address] INFORMATION SOURCE (unrecogn ized section and content) DATE CREATED AUTHOR 12/31/2021 [facility] ([place]) DATE CREATED AUTHOR AUTHOR'S ORGANIZ ATION 05/20/2022 [facility] DATE CREATED AUTHOR AUTHOR'S ORGANIZ ATION 06/05/2022 [facility] DATE CREATED AUTHOR AUTHOR'S ORGANIZ ATION 04/05/2024 [facility] DATE CREATED AUTHOR AUTHOR'S ORGANIZ ATION 04/06/2024 [facility] DATE CREATED AUTHOR AUTHOR'S ORGANIZ ATION 11/23/2024 [facility] DATE CREATED AUTHOR AUTHOR'S ORGANIZ ATION 03/10/2025 [facility] DATE CREATED AUTHOR AUTHOR'S ORGANIZ ATION 03/19/2025 [facility] Source Comments (unrecognize d section and content) In the event this informatio n is protected by the Federal Confidentiality of Alcohol and Drug Abuse Patient Records regulations: The Federal rules restrict any use of the information to criminally investigate or prosecute any alcohol or drug abuse patient.[facility] the event this information is protected by the Federal Confidentiality of Alcohol and Drug Abuse Patient Records regulations: The Federal rules restrict any use of the information to criminally investigate or prosecute any alcohol or drug abuse patient.[facility] the event this information is protected by the Federal Confidentiality of Alcohol and Drug Abuse Patient Records regulations: The Federal rules restrict any use of the information to criminally investigate or prosecute any alcohol or drug abuse patient.[facility]In the event this information is protected by the Federal Confidentiality of Alcohol and Drug Abuse Patient Records regulations: The Federal rules restrict any use of the information to criminally investigate or prosecute any alcohol or drug abuse patient.[facility]In the event this information is protected by the Federal Confidentiality of Alcohol and Drug Abuse Patient Records regulations: The Federal rules restrict any use of the information to criminally investigate or prosecute any alcohol or drug abuse patient.[facility]In the event this information is protected by the Federal Confidentiality of Alcohol and Drug Abuse Patient Records regulations: The Federal rules restrict any use of the information to criminally investigate or prosecute any alcohol or drug abuse patient.[facility] HospitalIn the event this information is protected by the Federal Confidentiality of Alcohol and Drug Abuse Patient Records regulations: The Federal rules restrict any use of the information to criminally investigate or prosecute any alcohol or drug abuse patient.[facility] the event this information is protected by the Federal Confidentiality of Alcohol and Drug Abuse Patient Records regulations: The Federal rules restrict any use of the information to criminally investigate or prosecute any alcohol or drug abuse patient.[facility] HospitalIn the event this information is protected by the Federal Confidentiality of Alcohol and Drug Abuse Patient Records regulations: The Federal rules restrict any use of the information to criminally investigate or prosecute any alcohol or drug abuse patient.[facility] HospitalIn the event this information is protected by the Federal Confidentiality of Alcohol and Drug Abuse Patient Records regulations: The Federal rules restrict any use of the information to criminally investigate or prosecute any alcohol or drug abuse patient.[facility] HospitalIn the event this information is protected by the Federal Confidentiality of Alcohol and Drug Abuse Patient Records regulations: The Federal rules restrict any use of the information to criminally investigate or prosecute any alcohol or drug abuse patient.[facility] HospitalIn the event this information is protected by the Federal Confidentiality of Alcohol and Drug Abuse Patient Records regulations: The Federal rules restrict any use of the information to criminally investigate or prosecute any alcohol or drug abuse patient.[facility] HospitalIn the event this information is protected by the Federal Confidentiality of Alcohol and Drug Abuse Patient Records regulations: The Federal rules restrict any use of the information to criminally investigate or prosecute any alcohol or drug abuse patient.[facility] HospitalIn the event this information is protected by the Federal Confidentiality of Alcohol and Drug Abuse Patient Records regulations: The Federal rules restrict any use of the information to criminally investigate or prosecute any alcohol or drug abuse patient.[facility] HospitalIn the event this information is protected by the Federal Confidentiality of Alcohol and Drug Abuse Patient Records regulations: The Federal rules restrict any use of the information to criminally investigate or prosecute any alcohol or drug abuse patient.[facility] HospitalIn the event this information is protected by the Federal Confidentiality of Alcohol and Drug Abuse Patient Records regulations: The Federal rules restrict any use of the information to criminally investigate or prosecute any alcohol or drug abuse patient.[facility] HospitalIn the event this information is protected by the Federal Confidentiality of Alcohol and Drug Abuse Patient Records regulations: The Federal rules restrict any use of the information to criminally investigate or prosecute any alcohol or drug abuse patient.[facility] HospitalIn the event this information is protected by the Federal Confidentiality of Alcohol and Drug Abuse Patient Records regulations: The Federal rules restrict any use of the information to criminally investigate or prosecute any alcohol or drug abuse patient.[facility] HospitalIn the event this information is protected by the Federal Confidentiality of Alcohol and Drug Abuse Patient Records regulations: The Federal rules restrict any use of the information to criminally investigate or prosecute any alcohol or drug abuse patient.[facility] HospitalIn the event this information is protected by the Federal Confidentiality of Alcohol and Drug Abuse Patient Records regulations: The Federal rules restrict any use of the information to criminally investigate or prosecute any alcohol or drug abuse patient.[facility] HospitalIn the event this information is protected by the Federal Confidentiality of Alcohol and Drug Abuse Patient Records regulations: The Federal rules restrict any use of the information to criminally investigate or prosecute any alcohol or drug abuse patient.[facility] HospitalIn the event this information is protected by the Federal Confidentiality of Alcohol and Drug Abuse Patient Records regulations: The Federal rules restrict any use of the information to criminally investigate or prosecute any alcohol or drug abuse patient.[facility] HospitalIn the event this information is protected by the Federal Confidentiality of Alcohol and Drug Abuse Patient Records regulations: The Federal rules restrict any use of the information to criminally investigate or prosecute any alcohol or drug abuse patient.[facility] HospitalIn the event this information is protected by the Federal Confidentiality of Alcohol and Drug Abuse Patient Records regulations: The Federal rules restrict any use of the information to criminally investigate or prosecute any alcohol or drug abuse patient.[facility] HospitalIn the event this information is protected by the Federal Confidentiality of Alcohol and Drug Abuse Patient Records regulations: The Federal rules restrict any use of the information to criminally investigate or prosecute any alcohol or drug abuse patient.[facility] HospitalIn the event this information is protected by the Federal Confidentiality of Alcohol and Drug Abuse Patient Records regulations: The Federal rules restrict any use of the information to criminally investigate or prosecute any alcohol or drug abuse patient.[facility] HospitalIn the event this information is protected by the Federal Confidentiality of Alcohol and Drug Abuse Patient Records regulations: The Federal rules restrict any use of the information to criminally investigate or prosecute any alcohol or drug abuse patient.[facility] HospitalIn the event this information is protected by the Federal Confidentiality of Alcohol and Drug Abuse Patient Records regulations: The Federal rules restrict any use of the information to criminally investigate or prosecute any alcohol or drug abuse patient.[facility] HospitalIn the event this information is protected by the Federal Confidentiality of Alcohol and Drug Abuse Patient Records regulations: The Federal rules restrict any use of the information to criminally investigate or prosecute any alcohol or drug abuse patient.[facility] HospitalIn the event this information is protected by the Federal Confidentiality of Alcohol and Drug Abuse Patient Records regulations: The Federal rules restrict any use of the information to criminally investigate or prosecute any alcohol or drug abuse patient.[facility] HospitalIn the event this information is protected by the Federal Confidentiality of Alcohol and Drug Abuse Patient Records regulations: The Federal rules restrict any use of the information to criminally investigate or prosecute any alcohol or drug abuse patient.[facility] HospitalIn the event this information is protected by the Federal Confidentiality of Alcohol and Drug Abuse Patient Records regulations: The Federal rules restrict any use of the information to criminally investigate or prosecute any alcohol or drug abuse patient.[facility] HospitalIn the event this information is protected by the Federal Confidentiality of Alcohol and Drug Abuse Patient Records regulations: The Federal rules restrict any use of the information to criminally investigate or prosecute any alcohol or drug abuse patient.[facility] HospitalIn the event this information is protected by the Federal Confidentiality of Alcohol and Drug Abuse Patient Records regulations: The Federal rules restrict any use of the information to criminally investigate or prosecute any alcohol or drug abuse patient.[facility] HospitalIn the event this information is protected by the Federal Confidentiality of Alcohol and Drug Abuse Patient Records regulations: The Federal rules restrict any use of the information to criminally investigate or prosecute any alcohol or drug abuse patient.[facility] HospitalIn the event this information is protected by the Federal Confidentiality of Alcohol and Drug Abuse Patient Records regulations: The Federal rules restrict any use of the information to criminally investigate or prosecute any alcohol or drug abuse patient.[facility] HospitalIn the event this information is protected by the Federal Confidentiality of Alcohol and Drug Abuse Patient Records regulations: The Federal rules restrict any use of the information to criminally investigate or prosecute any alcohol or drug abuse patient.[facility] HospitalIn the event this information is protected by the Federal Confidentiality of Alcohol and Drug Abuse Patient Records regulations: The Federal rules restrict any use of the information to criminally investigate or prosecute any alcohol or drug abuse patient.[facility] FOR RECORDS PERTAINING TO PATIENTS WHO [...] BE BASED ON THE PRIMARY CLINICAL RECORDS. [employer] [facility]. provides no warranty or guarantee of the accuracy or completeness of information in this document.
[2025-04-29] MEDS: 0.9% Normal Saline (1000mL) 1,000 ML 999 ML IV (22:22)
[2025-04-29 22:33] LABS: Hematocrit 40.6 % (37-47); Hemoglobin 11.8 g/dL (12.0-15.0); Immature Granulocytes Count 0.100 X10^3/uL (0.0-0.0); Mean Corp Hgb Conc 29.1 g/dL (32-36); Mean Corpuscular Volume 75.2 fL (81-99); Mean Platelet Vol. 9.8 fl (6.2-12.0); NRBC Flagged by Analyzer 0 % (0-5); Platelet Count 272 K/mm3 (150-450); RBC Distribution Width CV 15.9 % (11.6-14.6); RBC Distribution Width SD 42.7 fl (35.1-43.9); Red Blood Count 5.40 M/mm3 (4.2-5.4); White Blood Count 6.4 K/mm3 (4.4-11.0)
[2025-04-29 22:42] LABS: AST(SGOT) 24 U/L (<=31); Alanine Aminotransfer ALT/SGPT 9 U/L (<=34); Albumin, Serum 3.9 g/dL (3.5-5.0); Alkaline Phosphatase 75 U/L (35-104); Anion Gap 17 (7-18); BUN 10 mg/dL (4-19); BUN/Creat Ratio 16.3 RATIO (10-20); Calcium,Total 9.3 mg/dL (7.6-11.0); Carbon Dioxide 30.0 mmol/L (20.0-29.0); Chloride 92 mmol/L (96-106); Estimated Creatinine Clearance 233.50 ml/min (50-250); Globulin 2.5 g/dL (2.2-4.2); Glucose 86 mg/dL (70-99); Potassium 3.9 mmol/L (3.5-5.1)
[2025-04-29 22:51] LABS: Mucous, Urine 0 SEEN /hpf (<or=2+)
[2025-04-29 22:57] LABS: Prothrombin Time (Protime)PT. 14.6 SECONDS (11.7-14.9)
[2025-04-29 22:57] LABS: Color, Urine Yellow (Yellow); Glucose, Dipstick Normal (Normal); Leukocyte Esterase-Dipstick 500 /ul (Negative); Nitrite-Dipstick Negative (Negative); Occult Blood-Urine 10 /ul (Negative); Protein-Dipstick 30 mg/dl (Negative); Specific Gravity, Urine 1.010 (1.002-1.030)
[2025-04-29 22:58] LABS: Partial Thromboplast Time 38.7 Seconds (24.1-36.2)
[2025-04-29 23:03] VITALS: BP 125/85; PULSE 80; RESP 20; O2SAT 99
[2025-04-29 23:14] LABS: Urine Bilirubin Dipstick 1 mg/dL (Negative)
[2025-04-29 23:15] LABS: Ketone-Dipstick 150 mg/dl (Negative)
[2025-04-29 23:17] LABS: Red Blood Cells-Urine 0-5 SEEN /hpf (0-5); Squamous Epithelial Cells - UA 0-5 SEEN /hpf (5-10)
[2025-04-30] MEDS: 0.9% Normal Saline (1000mL) 1,000 ML 999 ML IV (00:49)
[2025-04-30 00:51] VITALS: BP 134/76; PULSE 85; RESP 22; TEMP 36.9; O2SAT 100
[2025-04-30 01:44] VITALS: BP 134/78; PULSE 69; RESP 18; TEMP 36.6; O2SAT 100
== END 2025-04-30 02:00 | disposition home or self-care (01) ==
PROVIDERS: Emergency Provider Emergency Medicine; PCP Nurse Practitioner Family; Visit Provider Emergency Medicine
DX: R11.2 Nausea with vomiting, unspecified (principal); J96.11 Chronic respiratory failure with hypoxia; J96.12 Chronic respiratory failure with hypercapnia; J44.9 Chronic obstructive pulmonary disease, unspecified; J10.1 Influenza due to other identified influenza virus with other respiratory manifestations; R10.9 Unspecified abdominal pain; Z79.51 Long term (current) use of inhaled steroids; Z79.899 Other long term (current) drug therapy
CPT/HCPCS: 71046; 74177; 80053; 81001; 83605; 85025; 85610; 85730; 87040; 87077; 87086; 87088; 87186; 87631; 93005; 96361; 96374; 96375; 96376; 99284; Q9967; A4216; J2405